=== PATIENT | female | born 1940 | race Caucasian/White ===

== ENCOUNTER → 2017-11-30 09:01 | Day surgery (SDC) | payer MEDICARE, SELFPAY ==
[2017-11-27 09:34] VITALS: BMI 23.8
[2017-11-30 09:46] LABS: Prothrombin Time Fingerstick 13.9 SEC (11.9-14.4)
--- NOTE | 2017-11-30 11:17 | CL.D_ITS ---
Patient Name: MICHELLE JIMENEZ Study Date: 11/30/2017 Performing: Mart Souza MD Ht: 66.14 inches 168 cm : 1940 Wt: 147.71 lbs 67 kg Age: 77 Gender: female BSA: 1.76 PROCEDURE(S) PERFORMED BP08-WQR/COR/LV CLINICAL PROFILE AND INDICATIONS INDICATIONS: 77-year-old lady with a history of hypertrophic cardiomyopathy and mitral regurgitat ion and atrial fibrillation Stress/Imaging Stress/Image Study Performed: No CAD Presentations: No Sxs, no angina. CONCLUSIONS Normal coronary arteries Cardiomyopathy: Hypertrophic Mitral Valve Insufficiency Moderate RECOMMENDATIONS Surgery consult for Valve Replacement surgery DESCRIPTION OF PROCEDURE The patient arrived to the procedure lab. The risks and benefits of the procedure as well as a full d escription of our services here and current unavailability of surgical backup were fully explained to the patient and/or their significant other prior to the catheterization. The Timeout was completed, verifying the correct patient and procedure. The patient's procedural site was prepped and draped in the usual fashion. Local anesthetic was given subcutaneously to right radial region with Lidocaine 2% . Local anesthetic was given subcutaneously to right groin region with Lidocaine 2%. Using a modified Seldinger technique, arterial access was obtained via the right femoral artery, a 4Fr sheath was ins erted Left Coronary Artery selective angiography was performed in multiple views using a 5 Fr. JL4 c atheter. Right Coronary Artery selective angiography was then performed in multiple views using a 5 F r. 3DRC (Endy) catheter. Left Ventriculography was performed in GOTTI projection using a 5 Fr. Pigt ail catheter. LV to AO pullback pressures were then recorded.The arterial sheath was pulled and manua l compression applied until hemostasis is achieved. CORONARY ANGIOGRAPHY DOMINANCE: Right Dominant LEFT HEART ASSESSMENT Left Ventricular Ejection Fraction: by LV Gram 65 % Normal LV wall motion Normal Left Ventricular systolic function Moderately severe mitral regurgitation LEFT MAIN: Angiographically normal LEFT ANTERIOR DECENDING ARTERY: Angiographically normal CIRCUMFLEX ARTERY: Angiographically normal RIGHT CORONARY ARTERY: Angiographically normal VALVE FINDINGS: Mitral Valve Prolapse Moderate COMPLICATIONS No Complications PROCEDURE MEDICATIONS Versed 1 mg IV Fentanyl 50 mcg IV Oxygen: 2 L/min via nasal cannula Baby Aspirin (81mg) 1 Tabs PO @ 11/30/2017 09:46:44 Lasix 40 mg IV 11/30/2017 11:15:16 SUMMARY OF HEMODYNAMIC DATA Time AIR REST ECG 09:44:37 AO 107/64 (85) SA 10:55:02 LV 138/5, 21 11:02:52 LV 138/3, 21 11:02:58 LV 134/11, 26 11:03:49 LV 150/18, 48 11:03:55 LVp 134/7, 22 11:04:04 AOp 114/59 (86) 11:04:09 Signed By Mart Souza MD On 11/30/2017 11:16:48 Mart Souza MD
== END ==
PROVIDERS: Family Provider Internal Medicine; PCP Internal Medicine; Visit Provider Internal Medicine Cardiovascular Disease
DX: I42.2 Other hypertrophic cardiomyopathy (principal); I34.0 Nonrheumatic mitral (valve) insufficiency; I11.0 Hypertensive heart disease with heart failure; I50.32 Chronic diastolic (congestive) heart failure; J96.01 Acute respiratory failure with hypoxia; I48.0 Paroxysmal atrial fibrillation; I48.92 Unspecified atrial flutter; J44.9 Chronic obstructive pulmonary disease, unspecified; C85.90 Non-Hodgkin lymphoma, unspecified, unspecified site; E78.5 Hyperlipidemia, unspecified; Z79.82 Long term (current) use of aspirin; Z79.01 Long term (current) use of 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; Z79.899 Other long term (current) drug therapy; Z92.21 Personal history of antineoplastic chemotherapy; Z87.891 Personal history of nicotine dependence
CPT/HCPCS: 36416; 85610; 93458; 99152; 99153; J7040; C1769; C1894; J1940; Q9967

== ENCOUNTER → 2017-12-02 15:37 | Outpatient (CLI) | payer MEDICARE, SELFPAY ==
--- NOTE | 2017-12-02 | BMB_PTH ---
PATIENT: MICHELLE JIMENEZ LOC: [facility] U#:[id number] AGE/SX: 85/F ROOM: RE12/02/[address]: Dr. Maria Isabel Tay MD : 1940 BED: DIS: SPEC #: [id number] RECD: 12/02/17 15:32 STATUS: TAMMI REYolanda #: [id number] ROSALIO: 12/02/17 00:[address]: Maria Isabel Tay DEPT: BONE MARROW RECD BY: Jerome Duran ENTERED: 12/03/17 07:41 SP TYPE: BMB OTHR DR: Dr. Cheyanne Holt MD Tissues: A - Bone marrow, NOS B - Bone marrow, NOS C - Bone marrow, NOS Procedures: Decalcification bone/plaque Bone Marrow Aspiration Bone Marrow Core Biopsy Iron Stain Bone Marrow HEADER OPERATION: Bone marrow aspiration and biopsy, left hip PRE-OP DIAGNOSIS: B-cell lymphoma TISSUE SUBMITTED: A ? Bone marrow aspiration and biopsy core, B ? Bone marrow biopsy clot, aspiration, C ? Bone marrow biopsy smears, 6 slides, 2 stained slides, and send out (flow) BONE MARROW DIAGNOSIS Bone marrow core, clot and aspirate smears: Normocellular marrow, negative for involvement by lymphoma. Iron ? 1+, atypical or ring sideroblasts are not seen. Peripheral smear ? mild thrombocytopenia. Flow cytometry study from [facility] shows no significant immunophenotypic abnormality detected. SJ:everardo 12/09/17 COMMENT Please make reference to previous specimen ([id number]) right hip bone marrow core and clot with diagnosis of involvement by non-Hodgkin B-cell lymphoma, unclassifiable. Case has been reviewed in consultation with Dr. Villanueva who concurs with the above diagnosis. IDC:AM BONE MARROW STUDY Slides are reviewed. CBC DATE: 12/02/17 WBC 4.21; RBC 4.68; HGB 12.8; HCT 39.1; MCV 83.5; RDW 15.0; PLTS 128,000 SEGS 57.1%; LYMPHS 18.1%; MONOS 20.7%; EOS 3.1%; BASOS 1.0% PERIPHERAL SMEAR: Submitted. RBC: Normocytic and normochromic. WBC: Relative monocytosis. The WBC count is compatible to as reported above. PLTS: Mildly decreased. BONE MARROW ASPIRATE DIFFERENTIAL: 200 cell count. Blasts % (normal 0-2): 0 Promyelocytes % (normal 1-5): 2 Myelocytes and metamyelocytes % (normal 17-41): 30 Bands and Segs % (normal 15-32): 29 Eos % (normal 1-6): 5 Basos % (normal 0-1): 1 Monocytes % (normal 0-4): 0 Erythroid Precursors % (normal 17-35): 23 Lymphocytes % (normal 7-13): 10 Plasma Cells % (normal 0-2): 0 ASPIRATE FINDINGS: Site: Not specified Spicular, Cellular M/E ratio: 2.9 (Normal 1.5-4.0) Megakaryocytes: Present and normal morphology. Erythropoiesis: Normoblastic. Granulopoiesis: Progressive and unremarkable. Comment: Significant increase of lymphocytes are not seen. CORE BIOPSY FINDINGS: Site: Not specified Adequacy: Adequate Cellularity: 50% M/E ratio: Within normal limits. Megakaryocytes: Present and adequate in number. Bony trabeculae: Unremarkable. Granulomas: Absent. Lymphoid aggregate: Absent. Atypical infiltrate: Absent. ASPIRATE CLOT FINDINGS: Site: Not specified Marrow particles: Numerous Cellularity: 50% M/E ratio: Within normal limits. Megakaryocytes: Present and adequate in number. Granulomas: Absent. Lymphoid aggregates: Absent. Atypical infiltrates: Absent. SPECIAL STAINS WITH MATCHED CONTROLS: Iron: 1+, atypical or ring sideroblasts are not seen. Reticulin: Focal mild increase of reticulin fibers are noted in the core biopsy. PAS: Highlights myeloid cells and megakaryocytes. BONE MARROW GROSS A - Received is a container labeled with the patient's name and designated left hip. The specimen consists of a piece of montes bone measuring 0.8 cm in length and 0.2 cm in diameter. The specimen is totally submitted in one cassette after decalcification. B - Received labeled with the patient's name and designated left hip is a specimen that consists of approximately 15 cc of bloody fluid that on filtration yields multiple minute fragments of blood clots measuring in aggregate 0.5 x 0.5 x 0.1 cm. The specimen is totally submitted in one cassette. C - Also received are 6 unstained and 2 peripheral stained slides. The unstained slides are submitted for appropriate staining. Also received is one green top tube which is sent to our reference lab for flow cytometry. / DAHIANA:everardo 12/03/17 TC:5 CPT: 98986, 59255, 87189 x2, 41930 x3, 37643
== END ==
PROVIDERS: Family Provider Internal Medicine; PCP Internal Medicine; Visit Provider Internal Medicine Hematology & Oncology
DX: C85.10 Unspecified B-cell lymphoma, unspecified site (principal)
CPT/HCPCS: 88305; 88311; 88313

== ENCOUNTER 2018-05-11 11:28 | Emergency (ER) | payer MEDICARE, SELFPAY ==
[2018-05-11] VITALS (7 sets, daily range): BP systolic 91–125; BP diastolic 66–75; PULSE 53–82; RESP 16; TEMP 37; O2SAT 94–99; BMI 24.0
--- NOTE | 2018-05-11 11:51 | EKG12_ITS ---
Test Reason : CP Blood Pressure : / mmHG Vent. Rate : 056 BPM Atrial Rate : 416 BPM P-R Int : 000 ms QRS Dur : 102 ms QT Int : 622 ms P-R-T Axes : 058 -05 062 degrees QTc Int : 600 ms Normal sinus rhythm with 1st degree block Anterolateral infarct , age undetermined Prolonged QT Abnormal ECG Confirmed by CLAUDIA FORTUNE, KACIE ([id number]), mapping editor SHANKAR TERRAZAS ([id number]) on 05/13/2018 1:39:35 PM Referred By: VIRI Confirmed By:KACIE TAYLOR MD
[2018-05-11 12:26] LABS: Absolute Lymphocyte Count 1.15 X10^3/ul (0.83-4.51); Absolute Neutrophil Count 5.3 X10^3/uL (2.0-7.7); Basophil# 0.07 X10^3/uL; Eosinophil# 0.16 X10^3/uL; Eosinophils% 2.2 % (0-5); Hematocrit 39.3 % (37-47); Hemoglobin 12.7 g/dl (12.0-15.0); Lymphocyte # 1.15 X10^3/ul (4.0); Lymphocyte % 15.8 % (19-41); Mean Corp Hgb Conc 32.3 g/gl (32-36); Mean Corpuscular Hgb 26.5 pg (27.0-32.0); Mean Corpuscular Volume 81.9 fL (81-99); Mean Platelet Vol. 9.2 fl (6.2-12.0); Monocyte# 0.51 X10^3/uL; Neutrophil # 5.34 X10^3/uL (2.7-7.7); Neutrophil % 73.4 % (47-70); Platelet Count 243 K/mm3 (150-450); RBC Distribution Width CV 15.2 % (11.6-14.6); RBC Distribution Width SD 45.4 fl (35.1-43.9); White Blood Count 7.3 K/mm3 (4.4-11.0)
[2018-05-11 12:27] LABS: POSITIVE COUNT NO; POSITIVE DIFFERENTIAL NO; POSITIVE MORPHOLOGY NO
--- NOTE | 2018-05-11 12:28 | RAD_ITS ---
STUDY: X-RAY CHEST REASON FOR EXAM: Female, 78 years old. Shortness of breath. Lower extremity weakness. TECHNIQUE: PA and lateral views of the chest. COMPARISON: Comparison is made with prior examination dated October 06, 2017. FINDINGS: EKG electrodes are seen. Since prior study, there has been a progression of interstitial markings throughout the lungs worse at the lung bases. This may represent a mild degree of CHF. There is no demonstrated pleural abnormality. There is mild cardiac enlargement. Normal mediastinum and niharika. Normal visualized pulmonary arteries. There is atherosclerotic tortuosity of the aortic arch and descending thoracic aorta. There is demineralization of the osseous structures. Normal visualized ribs, clavicles, and shoulders. There is no demonstrated abnormality of the visualized soft tissue structures of the upper abdomen. RAD/Chest PA and Lateral IMPRESSION: Mild cardiomegaly. Increased interstitial markings in both lungs suggestive of mild degree of CHF. Electronically Signed: Bryn Capellan MD at 12:51 EDT Tel [phone], Service support ,
[2018-05-11 12:40] LABS: Anion Gap 9 (5-15); BUN 23 mg/dL (7-18); BUN/Creat Ratio 18.3 RATIO (10-20); Calcium,Total 9.1 mg/dL (8.5-10.1); Chloride 102 mmol/L (98-107); Creatinine, Serum 1.26 mg/dL (0.55-1.02); EST Glomerular Filtration Rate 44 mL/min (>60); Est Glom Filt Rate - Afr Amer 53 mL/min (>60); Estimated Creatinine Clearance 33.89 ml/min; Glucose 93 mg/dL (74-106); Potassium 4.6 mmol/L (3.5-5.1); Sodium Level 139 mmol/L (136-145)
--- NOTE | 2018-05-11 12:46 | RAD_ITS ---
STUDY: X-RAY - PELVIS REASON FOR EXAM: Female, 78 years old. Lower extremity pain and weakness. TECHNIQUE: One view of the pelvis was obtained. COMPARISON: None. FINDINGS: There is a non-specific bowel gas pattern. Normal visualized soft tissue structures. There is a 1.1 cm rounded sclerotic focus overlying the left sacral ala or medial aspect of the left iliac bone. This may represent a small bone island. The patient has a history of metastatic disease, a sclerotic metastasis should be ruled out. Normal visualized bilateral superior and inferior pubic rami. There is narrowing with sclerosis of the pubic symphysis. Normal ischial tuberosities. Normal visualized right femoral head. Normal right acetabulum. Normal right hip joint. Normal visualized left femoral head. Normal left acetabulum. Normal left hip joint. RAD/Pelvis 1 or 2 Views IMPRESSION: 1.1 cm rounded sclerotic focus overlying the left sacral ala or medial aspect of the left iliac bone. This most likely represents a small bone island although a small sclerotic metastasis can't be excluded. Electronically Signed: Bryn Capellan MD at 13:12 EDT Tel [phone], Service support ,
--- NOTE | 2018-05-11 13:15 | NURSING ---
PT C/O CHEST PRESSURE WHILE WALKING. STATES IT IS NEW. ALSO C/O LEG WEAKNESS AND WINDED. ERD AWARE. CALLED FOR EKG.
--- NOTE | 2018-05-11 13:32 | NURSING ---
DR Marc CEJA
--- NOTE | 2018-05-11 13:50 | CT_ITS ---
STUDY: CTA CHEST REASON FOR EXAM: Female, 78 years old. Hypoxia RADIATION DOSAGE (If Supplied By Facility): CTDIvol = ( 12.93 ) mGy, DLP = ( 470.22 ) mGycm TECHNIQUE: The examination was performed with the intravenous administration of 75 ml of Isovue 370 contrast material. Post-processing of the angiographic images was performed, with multiplanar reformation and 3D reconstruction. Individualized dose optimization techniques were used for this CT. COMPARISON: None. FINDINGS: Normal enhancement of the main pulmonary artery and right and left pulmonary arteries. Normal enhancement of the bilateral peripheral pulmonary arteries. There is no demonstrated pulmonary embolism. Normal thoracic aorta and visualized great vessels. There is no demonstrated aortic dissection. There is cardiomegaly. There are scattered subcentimeter axillary and mediastinal lymph nodes measuring up to 8.5 mm. Normal hilar regions. There is peribronchial thickening. Lungs are hyperexpanded with chronic interstitial fibrotic changes in both lung [place], and nonspecific bilateral pleural thickening. Underlying emphysematous blebs noted in the upper lobes. Normal pleura. Normal chest wall structures. There are degenerative changes of thoracic spine. Limited cuts through the upper abdomen show a simple 4 cm right hepatic lobe cyst and cholelithiasis. CT/CTA Chest W/WO Contrast IMPRESSION: No demonstrated PE, or thoracic aortic aneurysm or dissection Cardiomegaly. Hyperexpanded lungs with underlying emphysematous changes in interstitial fibrotic changes. No superimposed infiltrate, or suspicious noncalcified mass or nodule Scattered subcentimeter axillary and mediastinal lymph nodes Degenerative bony changes Simple hepatic cyst Cholelithiasis Electronically Signed: Miguel Ac MD at 14:31 EDT , Service support ,
--- NOTE | 2018-05-11 13:52 | EKG12_ITS ---
Test Reason : REPEAT Blood Pressure : / mmHG Vent. Rate : 058 BPM Atrial Rate : 058 BPM P-R Int : 210 ms QRS Dur : 108 ms QT Int : 610 ms P-R-T Axes : 045 015 083 degrees QTc Int : 598 ms Sinus bradycardia with 1st degree A-V block Anterolateral infarct , age undetermined Prolonged QT Abnormal ECG Confirmed by CLAUDIA FORTUNE, KACIE ([id number]), desk editor SHANKAR TERRAZAS ([id number]) on 05/13/2018 1:41:07 PM Referred By: VIRI Confirmed By:KACIE TAYLOR MD
[2018-05-11 14:26] LABS: BNP,B-Type NATRIURETIC PEPTIDE 359.3 pg/mL (0-100)
[2018-05-11 14:52] LABS: International Normalized Ratio 2.5; Prothrombin Time (Protime)PT. 27.4 SECONDS (11.7-14.9)
[2018-05-11] MEDS: Ipratropium/Albuterol Sulfate 3 ML AMPUL.NEB INHALATION (15:48)
--- NOTE | 2018-05-11 16:01 | ED.VISSUMM ---
- ER Visit Summary Date of Service: 05/11/18 Chief Complaint: Shortness of breath History of Present Illness: The patient is a 78 F who has a bit of a complicated cardiac history. Patient has a history of paroxysmal atrial fibrillation. She has a history of nonrheumatic severe mitral valve regurgitation. Last echo showed 4+ regurg. Left atrium was noted to be severely dilated as well as having evidence of hypertrophic cardiomyopathy involving the left ventricular outflow tract with a gradient of 86 mmHg. Patient is currently undergoing evaluation to have a septal myomectomy alcohol ablation at [facility] on June 10. She does have some evidence of heart failure. She does not reportedly tolerate being in atrial fibrillation well. Patient states that a few days ago she was in [place] and was admitted to [facility] with shortness of breath and leg weakness. She states that these are the same symptoms that brings her in today. She also notes a history of COPD. She is on amiodarone and Coumadin. Physical Examination: Afebrile vital signs are stable Gen: Well-nourished well-developed Head: Normocephalic atraumatic Eyes: Perrl EOMI ENT: TMs clear no rhinorrhea moist mucous membranes Neck: Supple no lymphadenopathy no JVD nontender CVS: Regular rate rhythm 3 out of 6 systolic murmur Respiratory: No distress clear to auscultation bilaterally chest nontender Abdomen: Soft nontender nondistended normal bowel sounds no masses Back: Nontender Extremity: Nontender no edema Skin: Normal color no rash Neuro: alert orientated ?3 CN II-XII intact normal strength sensation reflexes gait cerebellar Psych: Normal affect normal mood Test Results: EKG shows a sinus rhythm at a rate of 56 this was repeated later in the course continues to show a sinus rhythm. Chest x-ray shows no obvious overt heart failure or infiltrate. White count 7.3 hemoglobin 12.7. INR therapeutic at 2.5. Troponin negative. Natruretic peptide is 359. Emergency Department Course and Treatment: Patient is 99% on room air at rest. When the patient ambulates she becomes dyspneic and her pulse ox drops to 88%. She walked once with nursing and once again with myself. She had a good waveform on the pulse ox. When placed on 2 L she is no longer short of breath her legs feel stronger and she is at 94%. Patient received a breathing treatment and stated she felt no different. I did speak with Dr. Kemp who is concerned that there might be something else that could be causing her hypoxemia. CT Josey of the chest was negative for PE. When she set the patient up for home oxygen. I encouraged her to follow-up with her doctors keep her scheduled appointments Impression: 1. Hypoxemia 2. COPD 3. Hypertrophic cardiomyopathy 4. Mitral valve regurgitation This note was generated with [employer] dictation software. It may contain incorrect words, spelling, and punctuation that were not noted in review of the chart prior to signing ED Disposition - Plan for ED Patient: Disposition: Home or Assisted Living Chief Complaint: Shortness of Breath Instructions: Traveling with Oxygen Referrals: Cheyanne Holt MD [Primary Care Provider] - Additional Instructions: Please keep all your appointments with her doctors. Please wear oxygen particularly anytime you are attempting to exert herself.
--- NOTE | 2018-05-11 16:05 | ED.DCSUM_ITS ---
- ER Visit Summary Date of Service: 05/11/18 Chief Complaint: Shortness of breath History of Present Illness: The patient is a 78 F who has a bit of a complicated cardiac history. Patient has a history of paroxysmal atrial fibrillation. She has a history of nonrheumatic severe mitral valve regurgitation. Last echo showed 4+ regurg. Left atrium was noted to be severely dilated as well as having evidence of hypertrophic cardiomyopathy involving the left ventricular outflow tract with a gradient of 86 mmHg. Patient is currently undergoing evaluation to have a septal myomectomy alcohol ablation at [facility] on June 10. She does have some evidence of heart failure. She does not reportedly tolerate being in atrial fibrillation well. Patient states that a few days ago she was in [place] and was admitted to [facility] with shortness of breath and leg weakness. She states that these are the same symptoms that brings her in today. She also notes a history of COPD. She is on amiodarone and Coumadin. Physical Examination: Afebrile vital signs are stable Gen: Well-nourished well-developed Head: Normocephalic atraumatic Eyes: Perrl EOMI ENT: TMs clear no rhinorrhea moist mucous membranes Neck: Supple no lymphadenopathy no JVD nontender CVS: Regular rate rhythm 3 out of 6 systolic murmur Respiratory: No distress clear to auscultation bilaterally chest nontender Abdomen: Soft nontender nondistended normal bowel sounds no masses Back: Nontender Extremity: Nontender no edema Skin: Normal color no rash Neuro: alert orientated ?3 CN II-XII intact normal strength sensation reflexes gait cerebellar Psych: Normal affect normal mood Test Results: EKG shows a sinus rhythm at a rate of 56 this was repeated later in the course continues to show a sinus rhythm. Chest x-ray shows no obvious overt heart failure or infiltrate. White count 7.3 hemoglobin 12.7. INR therapeutic at 2.5. Troponin negative. Natruretic peptide is 359. Emergency Department Course and Treatment: Patient is 99% on room air at rest. When the patient ambulates she becomes dyspneic and her pulse ox drops to 88%. She walked once with nursing and once again with myself. She had a good waveform on the pulse ox. When placed on 2 L she is no longer short of breath her legs feel stronger and she is at 94%. Patient received a breathing treatment and stated she felt no different. I did speak with Dr. Kemp who is concerned that there might be something else that could be causing her hypoxemia. CT Josey of the chest was negative for PE. When she set the patient up for home oxygen. I encouraged her to follow-up with her doctors keep her scheduled appointments Impression: 1. Hypoxemia 2. COPD 3. Hypertrophic cardiomyopathy 4. Mitral valve regurgitation This note was generated with [employer] dictation software. It may contain incorrect words, spelling, and punctuation that were not noted in review of the chart prior to signing ED Disposition - Plan for ED Patient: Disposition: Home or Assisted Living Chief Complaint: Shortness of Breath Instructions: Traveling with Oxygen Referrals: Cheyanne Holt MD [Primary Care Provider] - Additional Instructions: Please keep all your appointments with her doctors. Please wear oxygen particularly anytime you are attempting to exert herself.
--- NOTE | 2018-05-11 16:28 | CM.ED ---
CM consulted for home oxygen setup. Discussed home oxygen use with patient. Patient states understanding and is agreeable with plan. Lindsay, from [facility], notified. Clinicals and script faxed. [facility] will deliver oxygen to ED as soon as possible and will follow through with home setup.
--- NOTE | 2018-05-12 15:17 | CM.ED ---
ED CALLBACK: Follow-up call placed to patient. Patient states she did have oxygen set up in the home, with instruction. She denies shortness of breath today. She saw Dr. Lyon, international trade compliance manager, today. She tells me that she did not wear her oxygen to her appointment and that he tested her walking in the halls. She tells me that her O2 saturation level remained above 93% during ambulation at office. Patient did tell me that she has a pulse ox at home. I encouraged her to use her oxygen with ambulation. Patient denies any further needs, questions, concerns.
== END 2018-05-11 17:02 | disposition home or self-care (01) ==
PROVIDERS: Emergency Provider Emergency Medicine; Family Provider Internal Medicine; PCP Internal Medicine
DX: R09.02 Hypoxemia (principal); J44.9 Chronic obstructive pulmonary disease, unspecified; I42.2 Other hypertrophic cardiomyopathy; I34.0 Nonrheumatic mitral (valve) insufficiency; I48.0 Paroxysmal atrial fibrillation; I50.9 Heart failure, unspecified; Z79.01 Long term (current) use of 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; Z79.82 Long term (current) use of aspirin; Z79.899 Other long term (current) drug therapy; Z85.72 Personal history of non-Hodgkin lymphomas; Z87.891 Personal history of nicotine dependence
CPT/HCPCS: 71046; 71275; 72170; 80048; 83880; 84484; 85025; 85610; 93005; 94640; 99284; Q9967; A4216

== ENCOUNTER → 2018-07-09 10:48 | Outpatient (CLI) | payer MEDICARE, SELFPAY ==
[2018-07-09 11:19] LABS: International Normalized Ratio 2.4; Prothrombin Time (Protime)PT. 26.2 SECONDS (11.7-14.9)
== END ==
PROVIDERS: Family Provider Internal Medicine; PCP Internal Medicine; Visit Provider Internal Medicine
DX: I48.91 Unspecified atrial fibrillation (principal); J43.9 Emphysema, unspecified
CPT/HCPCS: 85610

== ENCOUNTER 2018-08-06 16:09 | Inpatient (IN) | payer MEDICARE, SELFPAY ==
[2018-08-06 17:33] VITALS: BMI 25.4
--- NOTE | 2018-08-06 17:33 | NURSING ---
Pt admitted to room 22 from [facility], brought by family. Patient oriented to room and call light system explained.
--- NOTE | 2018-08-06 17:46 | PCM.HP.STD ---
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 The patient is a 78 year old Female with below past medical history with following admitted to [facility]. 07/30/2018 Patient underwent septal myectomy, mitral valve repair, left atrial appendage clipping. Post-operative course complicated by atrial fibrillation, but rate controlled. 08/06/2018 Admit to TCU with debility, here for rehabilitation, strengthening, prior to discharge home alone. Resident showed me her incisions, incisions on abdomen tender to palpation, infected, will treat. She also asked for something to help her sleep, will add Melatonin. Past Medical History Past Medical History (Chronic Problems): Chronic Problems (Last Reviewed 11/11/17 @ 09:57 by Mart Souza MD) Hypertrophic obstructive cardiomyopathy (HOCM) (Chronic) Mitral valve disorder (Chronic) Atrial fibrillation (Chronic) Bone metastasis (Chronic) Coronary artery disease (Chronic) Irritable bowel syndrome (Chronic) Prolonged QT syndrome (Chronic) Osteoporosis (Chronic) Chronic obstructive pulmonary disease (Chronic) B-cell lymphoma (Chronic) Non-Hodgkin lymphoma (Chronic) small B cell Hyperlipidemia (Chronic) Hypertension (Chronic) Chronic diastolic heart failure (Chronic) Nonrheumatic mitral (valve) insufficiency (Chronic) Acute respiratory failure with hypoxia (Chronic) Bladder cancer (Chronic) Medical History: Medical History (Last Reviewed 11/11/17 @ 09:57 by Mart Souza MD) Non-Hodgkin lymphoma (Chronic) C85.90 small B cell Hyperlipidemia (Chronic) E78.5 Hypertension (Chronic) I10 Chronic diastolic heart failure (Chronic) I50.32 Nonrheumatic mitral (valve) insufficiency (Chronic) I34.0 Atrial flutter with rapid ventricular response (Resolved) I48.92 Acute respiratory failure with hypoxia (Chronic) J96.01 Bladder cancer (Chronic) C67.9 COPD (chronic obstructive pulmonary disease) J44.9 History of cardioversion Onset Date: ~10/07/17 Z98.890 05/2017 Hypertrophic obstructive cardiomyopathy (HOCM) I42.1 Long QT interval R94.31 Paroxysmal atrial fibrillation I48.0 Allergies allopurinol Allergy (Verified 05/11/18 11:30) Rash tramadol Adverse Reaction (Verified 05/11/18 11:30) dizzy Home Medications: Ambulatory Orders Medication Instructions Recorded Umeclidinium Brm/Vilanterol Tr 1 puff INHALATION DAILY 10/06/17 [Anoro Ellipta 62.5-25 Mcg INH] aspirin 81 mg tablet,delayed 81 mg PO QDAY 11/11/17 release Acetaminophen 650 mg PO Q4H PRN PRN 08/06/18 Albuterol Inhaler [Ventolin Hfa 2 puff INHALATION Q4H PRN PRN 08/06/18 (SP)] Cholecalciferol (Vitamin D3) 1,000 unit PO DAILY 08/06/18 [Vitamin D3] Furosemide [Lasix] 40 mg PO DAILY 08/06/18 Magnesium Oxide [Mag-Ox 400] 400 mg PO DAILY 08/06/18 Multivitamin [Daily Multiple 1 each PO DAILY 08/06/18 Vitamin] Oxycodone [Oxyir] 5 mg PO Q6H PRN PRN 08/06/18 Pantoprazole Sodium 20 mg PO DAILY 08/06/18 Paroxetine [Paxil] 10 mg PO DAILY 08/06/18 Potassium Chloride [K-Dur] 10 meq PO DAILY 08/06/18 Warfarin [Coumadin] 2 mg PO DAILY@1700 08/06/18 Surgical History: Surgical History (Last Reviewed 11/11/17 @ 09:57 by Mart Souza MD) History of bladder surgery Z98.890 tumor excision Surgical History: - - Bladder surgery per Dr. Monson, Septal myectomy, mitral valve repair, left atrial appendage clipping. 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 Lives: Spouse/ Significant Other Smoking Status: Former smoker Tobacco Use: Non-smoker Alcohol: None Drugs: None - *Family History Maternal Family History: Family History (Last Reviewed 11/11/17 @ 09:57 by Mart Souza MD) Mother Heart disease Hypertension Father Heart disease Hypertension History Items: Heart Disease, Hypertension Paternal Family History: Family History (Last Reviewed 11/11/17 @ 09:57 by Mart Souza MD) Mother Heart disease Hypertension Father Heart disease Hypertension History Items: Heart Disease, Hypertension Review of Systems Constitutional: Denies: Chills, Fever, Weight Change HEENT: Denies: Head Aches, Sinus Congestion, Sinus Drainage Cardiovascular: Denies: Chest Pain, Palpitations Respiratory: Denies: Cough, Shortness of breath at rest, Sputum production Gastrointestinal: Denies: Abdominal Pain, Nausea, Vomiting Genitourinary: Denies: Dysuria Musculoskeletal: Denies: Joint Pain, Joint Tenderness Skin: Denies: Rash, Wounds Neurological: Denies: Numbness, Tingling, Focal weakness Psychiatric: Denies: Anxiety, Depression, Homicidal Ideations, Suicidal Ideations Hematologic/ Lymphatic: Denies: Easy Bruising, Easy Bleeding VTE Information - Inpt Only VTE Present on Admission: No VTE Mechan Device Prophylaxis: Knee High KWAN Hose VTE Pharm Prophylaxis ordered?: No Reason prophylaxis not ordered:: Treatment Not Indicated - Physical Exam General: Alert, Oriented x3, Cooperative HEENT: Atraumatic, PERRLA, EOMI, Normocephalic Neck: Supple, No JVD, Negative Carotid Bruits Lungs: Clear to auscultation, Normal air movement Cardiovascular: Regular rate, No murmurs Abdomen: Bowel Sounds Present, Soft, Non Tender Extremities: No edema, Capillary Refill Less than 3 Seconds Skin: No rashes, No breakdown, Incision - Sternal clean, dry intact. Abdominal incisions tender, erythematous. Musculoskeletal: No Tenderness to Palpation of Joints or Extremities Neurological: Cranial nerves II-XII grossly intact Psych/Mental Status: Normal Affect, Appropriate Assessment/Plan All Active Problems (Last Reviewed 11/11/17 @ 09:57 by Mart Souza MD) Atrial flutter with rapid ventricular response (Resolved) 78 year old female with below past medical history significant for hypertrophic obstructive cardiomyopathy, underwent septal myectomy, mitral valve repair, left atrial appendage clipping 07/30/2018, complicated by post-operative atrial fibrillation, admitted to TCU with debility, here for rehabilitation, strengthening, prior to discharge home alone. Debility - PT/OT. Pain - Tylenol 1000MG Q8H PRN mild pain, Oxycodone 5MG Q6H PRN moderate pain. Bowel - Miralax 17GM daily, Senna/colace 1 tablet BID, Dulcolax 10MG PO daily PRN. Pneumonia vaccination - Administer Prevnar 13 and/or Pneumovax 23 as necessary. DVT prophylaxis - Not necessary, already on Warfarin. COPD - Incruse 1 inhalation daily, Albuterol MDI 2 puffs Q4H PRN. Coronary artery disease - Aspirin 81MG daily. Vitamin D deficiency - D3 1000IU daily. Fluid overload - Lasix 40MG daily. Hypomagnesemia - Magnesium Oxide 400MG daily. Nutrition - MVI daily. GERD - Pantoprazole 20MG daily. Depression - Paroxetine 10MG daily. Hypokalemia - KCL 10MEQ daily. Atrial fibrillation - Warfarin 2MG daily, follow INR. Incision cellulitis - Keflex 500MG BID, Doxycycline 100MG BID x 7 days. Insomnia - Melatonin 10MG QHS.
[2018-08-06 17:47] VITALS: BP 118/59; PULSE 51; RESP 18; TEMP 36.6; O2SAT 84
--- NOTE | 2018-08-06 17:55 | HP.PCM_ITS ---
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 The patient is a 78 year old Female with below past medical history with following admitted to [facility]. 07/30/2018 Patient underwent septal myectomy, mitral valve repair, left atrial appendage clipping. Post-operative course complicated by atrial fibrillation, but rate controlled. 08/06/2018 Admit to TCU with debility, here for rehabilitation, strengthening, prior to discharge home alone. Resident showed me her incisions, incisions on abdomen tender to palpation, infected, will treat. She also asked for something to help her sleep, will add Melatonin. Past Medical History Past Medical History (Chronic Problems): Chronic Problems (Last Reviewed 11/11/17 @ 09:57 by Mart Souza MD) Hypertrophic obstructive cardiomyopathy (HOCM) (Chronic) Mitral valve disorder (Chronic) Atrial fibrillation (Chronic) Bone metastasis (Chronic) Coronary artery disease (Chronic) Irritable bowel syndrome (Chronic) Prolonged QT syndrome (Chronic) Osteoporosis (Chronic) Chronic obstructive pulmonary disease (Chronic) B-cell lymphoma (Chronic) Non-Hodgkin lymphoma (Chronic) small B cell Hyperlipidemia (Chronic) Hypertension (Chronic) Chronic diastolic heart failure (Chronic) Nonrheumatic mitral (valve) insufficiency (Chronic) Acute respiratory failure with hypoxia (Chronic) Bladder cancer (Chronic) Medical History: Medical History (Last Reviewed 11/11/17 @ 09:57 by Mart Souza MD) Non-Hodgkin lymphoma (Chronic) C85.90 small B cell Hyperlipidemia (Chronic) E78.5 Hypertension (Chronic) I10 Chronic diastolic heart failure (Chronic) I50.32 Nonrheumatic mitral (valve) insufficiency (Chronic) I34.0 Atrial flutter with rapid ventricular response (Resolved) I48.92 Acute respiratory failure with hypoxia (Chronic) J96.01 Bladder cancer (Chronic) C67.9 COPD (chronic obstructive pulmonary disease) J44.9 History of cardioversion Onset Date: ~10/07/17 Z98.890 05/2017 Hypertrophic obstructive cardiomyopathy (HOCM) I42.1 Long QT interval R94.31 Paroxysmal atrial fibrillation I48.0 Allergies allopurinol Allergy (Verified 05/11/18 11:30) Rash tramadol Adverse Reaction (Verified 05/11/18 11:30) dizzy Home Medications: Ambulatory Orders Medication Instructions Recorded Umeclidinium Brm/Vilanterol Tr 1 puff INHALATION DAILY 10/06/17 [Anoro Ellipta 62.5-25 Mcg INH] aspirin 81 mg tablet,delayed 81 mg PO QDAY 11/11/17 release Acetaminophen 650 mg PO Q4H PRN PRN 08/06/18 Albuterol Inhaler [Ventolin Hfa 2 puff INHALATION Q4H PRN PRN 08/06/18 (SP)] Cholecalciferol (Vitamin D3) 1,000 unit PO DAILY 08/06/18 [Vitamin D3] Furosemide [Lasix] 40 mg PO DAILY 08/06/18 Magnesium Oxide [Mag-Ox 400] 400 mg PO DAILY 08/06/18 Multivitamin [Daily Multiple 1 each PO DAILY 08/06/18 Vitamin] Oxycodone [Oxyir] 5 mg PO Q6H PRN PRN 08/06/18 Pantoprazole Sodium 20 mg PO DAILY 08/06/18 Paroxetine [Paxil] 10 mg PO DAILY 08/06/18 Potassium Chloride [K-Dur] 10 meq PO DAILY 08/06/18 Warfarin [Coumadin] 2 mg PO DAILY@1700 08/06/18 Surgical History: Surgical History (Last Reviewed 11/11/17 @ 09:57 by Mart Souaz MD) History of bladder surgery Z98.890 tumor excision Surgical History: - - Bladder surgery per Dr. Monson, Septal myectomy, mitral valve repair, left atrial appendage clipping. 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 Lives: Spouse/ Significant Other Smoking Status: Former smoker Tobacco Use: Non-smoker Alcohol: None Drugs: None - *Family History Maternal Family History: Family History (Last Reviewed 11/11/17 @ 09:57 by Mart Souza MD) Mother Heart disease Hypertension Father Heart disease Hypertension History Items: Heart Disease, Hypertension Paternal Family History: Family History (Last Reviewed 11/11/17 @ 09:57 by Mart Souza MD) Mother Heart disease Hypertension Father Heart disease Hypertension History Items: Heart Disease, Hypertension Review of Systems Constitutional: Denies: Chills, Fever, Weight Change HEENT: Denies: Head Aches, Sinus Congestion, Sinus Drainage Cardiovascular: Denies: Chest Pain, Palpitations Respiratory: Denies: Cough, Shortness of breath at rest, Sputum production Gastrointestinal: Denies: Abdominal Pain, Nausea, Vomiting Genitourinary: Denies: Dysuria Musculoskeletal: Denies: Joint Pain, Joint Tenderness Skin: Denies: Rash, Wounds Neurological: Denies: Numbness, Tingling, Focal weakness Psychiatric: Denies: Anxiety, Depression, Homicidal Ideations, Suicidal Ideations Hematologic/ Lymphatic: Denies: Easy Bruising, Easy Bleeding VTE Information - Inpt Only VTE Present on Admission: No VTE Mechan Device Prophylaxis: Knee High KWAN Hose VTE Pharm Prophylaxis ordered?: No Reason prophylaxis not ordered:: Treatment Not Indicated - Physical Exam General: Alert, Oriented x3, Cooperative HEENT: Atraumatic, PERRLA, EOMI, Normocephalic Neck: Supple, No JVD, Negative Carotid Bruits Lungs: Clear to auscultation, Normal air movement Cardiovascular: Regular rate, No murmurs Abdomen: Bowel Sounds Present, Soft, Non Tender Extremities: No edema, Capillary Refill Less than 3 Seconds Skin: No rashes, No breakdown, Incision - Sternal clean, dry intact. Abdominal incisions tender, erythematous. Musculoskeletal: No Tenderness to Palpation of Joints or Extremities Neurological: Cranial nerves II-XII grossly intact Psych/Mental Status: Normal Affect, Appropriate Assessment/Plan All Active Problems (Last Reviewed 11/11/17 @ 09:57 by Mart Souza MD) Atrial flutter with rapid ventricular response (Resolved) 78 year old female with below past medical history significant for hypertrophic obstructive cardiomyopathy, underwent septal myectomy, mitral valve repair, left atrial appendage clipping 07/30/2018, complicated by post-operative atrial fibrillation, admitted to TCU with debility, here for rehabilitation, strengthening, prior to discharge home alone. * Debility - PT/OT. * Pain - Tylenol 1000MG Q8H PRN mild pain, Oxycodone 5MG Q6H PRN moderate pain. * Bowel - Miralax 17GM daily, Senna/colace 1 tablet BID, Dulcolax 10MG PO daily PRN. * Pneumonia vaccination - Administer Prevnar 13 and/or Pneumovax 23 as necessary. * DVT prophylaxis - Not necessary, already on Warfarin. * COPD - Incruse 1 inhalation daily, Albuterol MDI 2 puffs Q4H PRN. * Coronary artery disease - Aspirin 81MG daily. * Vitamin D deficiency - D3 1000IU daily. * Fluid overload - Lasix 40MG daily. * Hypomagnesemia - Magnesium Oxide 400MG daily. * Nutrition - MVI daily. * GERD - Pantoprazole 20MG daily. * Depression - Paroxetine 10MG daily. * Hypokalemia - KCL 10MEQ daily. * Atrial fibrillation - Warfarin 2MG daily, follow INR. * Incision cellulitis - Keflex 500MG BID, Doxycycline 100MG BID x 7 days. * Insomnia - Melatonin 10MG QHS.
[2018-08-06] MEDS: oxyCODONE 5 MG Tablet PO (20:36)
[2018-08-06 20:45] VITALS: PULSE 46
[2018-08-06] MEDS: MELATONIN 10 MG TABLET PO (22:03)
[2018-08-07] MEDS: Doxycycline 100 MG CAPSULE PO ×2 (06:52→17:39)
[2018-08-07] MEDS: PARoxetine 10 MG Tablet PO (06:52)
[2018-08-07] MEDS: Cephalexin 500 MG Capsule PO ×2 (06:53→17:39)
[2018-08-07] MEDS: Magnesium Oxide 400 MG Tablet PO (06:53)
[2018-08-07] MEDS: Pantoprazole Sodium 20 MG Tablet PO (06:53)
[2018-08-07 07:16] LABS: Absolute Lymphocyte Count 1.31 X10^3/ul (0.83-4.51); Absolute Neutrophil Count 6.7 X10^3/uL (2.0-7.7); Basophil# 0.03 X10^3/uL; Basophil% 0.3 % (0-1); Eosinophil# 0.29 X10^3/uL; Eosinophils% 3.1 % (0-5); Hematocrit 29.8 % (37-47); Hemoglobin 9.4 g/dl (12.0-15.0); Lymphocyte # 1.31 X10^3/ul (4.0); Lymphocyte % 13.9 % (19-41); Mean Corp Hgb Conc 31.5 g/gl (32-36); Mean Corpuscular Hgb 25.2 pg (27.0-32.0); Mean Corpuscular Volume 79.9 fL (81-99); Mean Platelet Vol. 9.6 fl (6.2-12.0); Monocyte# 0.96 X10^3/uL; Monocyte% 10.2 % (0-10); Neutrophil # 6.69 X10^3/uL (2.7-7.7); Platelet Count 315 K/mm3 (150-450); RBC Distribution Width SD 47.9 fl (35.1-43.9); Red Blood Count 3.73 M/mm3 (4.2-5.4); White Blood Count 9.4 K/mm3 (4.4-11.0)
[2018-08-07 07:22] LABS: POSITIVE COUNT NO; POSITIVE DIFFERENTIAL NO; POSITIVE MORPHOLOGY NO
[2018-08-07] MEDS: oxyCODONE 5 MG Tablet PO ×3 (07:25→18:53)
[2018-08-07 07:26] LABS: International Normalized Ratio 1.6; Prothrombin Time (Protime)PT. 19.2 SECONDS (11.7-14.9)
[2018-08-07 07:45] LABS: Anion Gap 8 (5-15); BUN 15 mg/dL (7-18); BUN/Creat Ratio 17.2 RATIO (10-20); Calcium,Total 8.3 mg/dL (8.5-10.1); Chloride 97 mmol/L (98-107); Creatinine, Serum 0.87 mg/dL (0.55-1.02); EST Glomerular Filtration Rate 67 mL/min (>60); Est Glom Filt Rate - Afr Amer 81 mL/min (>60); Estimated Creatinine Clearance 47.18 ml/min; Glucose 108 mg/dL (74-106); Potassium 3.6 mmol/L (3.5-5.1); Sodium Level 138 mmol/L (136-145)
[2018-08-07] MEDS: Aspirin E.C. 81 MG Tablet PO (08:09)
[2018-08-07] MEDS: Furosemide 40 MG Tablet PO (08:09)
[2018-08-07] MEDS: Multivitamins,Therapeutic Tablet 1 TABLET PO (08:09)
[2018-08-07 08:15] VITALS: O2SAT 92
[2018-08-07] MEDS: Acetaminophen 500 MG Tablet 1000 MG PO (11:04)
[2018-08-07 15:14] VITALS: BP 108/49; PULSE 50; RESP 18; TEMP 36.9; O2SAT 93
--- NOTE | 2018-08-07 16:35 | RAD_ITS ---
STUDY: X-RAY CHEST REASON FOR EXAM: Female, 78 years old. Positive PPD TECHNIQUE: Frontal view of the chest COMPARISON: 05/11/2018 FINDINGS: The lungs are clear. There are no pleural effusions. There is no pneumothorax. The heart is enlarged, but stable. The patient is status post sternotomy. The visualized osseous structures are within normal limits. RAD/Chest 1 View (Portable) IMPRESSION: Stable cardiomegaly. Clear lungs. Electronically Signed: Korey Spence, at 16:50 EDT Tel , Service support ,
[2018-08-07] MEDS: MELATONIN 10 MG TABLET PO (21:26)
[2018-08-08] MEDS: oxyCODONE 5 MG Tablet PO ×4 (02:54→20:55)
[2018-08-08] MEDS: Cephalexin 500 MG Capsule PO ×2 (06:24→17:59)
[2018-08-08] MEDS: Doxycycline 100 MG CAPSULE PO ×2 (06:24→17:59)
[2018-08-08] MEDS: Furosemide 40 MG Tablet PO (06:24)
[2018-08-08] MEDS: Pantoprazole Sodium 20 MG Tablet PO (06:24)
[2018-08-08] MEDS: Magnesium Oxide 400 MG Tablet PO (06:24)
[2018-08-08] MEDS: PARoxetine 10 MG Tablet PO (06:24)
[2018-08-08] MEDS: Senna/Docusate Sodium 1 Tablet PO ×2 (06:24→18:00)
[2018-08-08 07:00] VITALS: O2SAT 83
[2018-08-08 07:05] VITALS: O2SAT 91
[2018-08-08] MEDS: Aspirin E.C. 81 MG Tablet PO (07:44)
[2018-08-08] MEDS: Multivitamins,Therapeutic Tablet 1 TABLET PO (07:44)
[2018-08-08 15:26] VITALS: BP 108/46; PULSE 56; RESP 18; TEMP 36.1; O2SAT 89
[2018-08-08] MEDS: MELATONIN 10 MG TABLET PO (20:54)
[2018-08-09] MEDS: oxyCODONE 5 MG Tablet PO ×4 (01:00→20:55)
[2018-08-09] MEDS: Cephalexin 500 MG Capsule PO ×2 (05:44→16:33)
[2018-08-09] MEDS: Doxycycline 100 MG CAPSULE PO ×2 (05:44→16:33)
[2018-08-09] MEDS: PARoxetine 10 MG Tablet PO (05:44)
[2018-08-09] MEDS: Pantoprazole Sodium 20 MG Tablet PO (05:44)
[2018-08-09] MEDS: Magnesium Oxide 400 MG Tablet PO (05:44)
[2018-08-09] MEDS: Furosemide 40 MG Tablet PO (05:44)
[2018-08-09 05:48] VITALS: O2SAT 94
[2018-08-09 06:19] LABS: International Normalized Ratio 1.9; Prothrombin Time (Protime)PT. 21.9 SECONDS (11.7-14.9)
[2018-08-09 06:51] VITALS: O2SAT 93
[2018-08-09] MEDS: Multivitamins,Therapeutic Tablet 1 TABLET PO (09:34)
[2018-08-09] MEDS: Aspirin E.C. 81 MG Tablet PO (09:34)
--- NOTE | 2018-08-09 12:05 | CASEMGMT ---
Insurance Clinical information faxed. Pending continued stay approval at this time. Auth# -will obtain with continued stay approval. Patricia BLACKMAN, GAS PUMPING STATION SUPERVISOR
[2018-08-09 15:01] VITALS: BP 131/64; PULSE 54; RESP 18; TEMP 36.7; O2SAT 90
--- NOTE | 2018-08-09 15:23 | PCM.PN.RX ---
<Kenyon Calderonip D - Last Filed: 08/09/18 15:23> Progress Note - Pharmacy Subjective: TCU Admission Objective: Allergies allopurinol Allergy (Verified 05/11/18 11:30) Rash tramadol Adverse Reaction (Verified 05/11/18 11:30) dizzy Current Medications Generic Name Dose Route Start Last Admin Trade Name Freq PRN Reason Stop Dose Admin Acetaminophen 1,000 mg 08/06/18 18:09 08/07/18 11:04 Tylenol PO 1,000 mg Q8H PRN Administration MILD PAIN (1-310) Albuterol Sulfate 2 puff 08/06/18 17:45 Ventolin Hfa (Sp) INHALATION Q4H PRN PRN SOB &/OR WHEEZING Albuterol/Ipratropium 3 ml 08/08/18 15:51 Duoneb INHALATION Q6H.RT PRN SHORTNESS OF BREATH Aspirin 81 mg 08/07/18 08:00 08/09/18 09:34 Ecotrin PO 81 mg DAILY@0800 MAGGIE Administration Bisacodyl 10 mg 08/06/18 18:08 Dulcolax PO DAILY PRN Constipation Cephalexin 500 mg 08/07/18 06:00 08/09/18 05:44 Keflex PO 08/14/18 06:01 500 mg Q12 MAGGIE Administration Cholecalciferol 1,000 unit 08/07/18 06:00 08/09/18 05:44 Vitamin D PO 1,000 unit DAILY MAGGIE Administration Doxycycline Monohydrate 100 mg 08/07/18 06:00 08/09/18 05:44 Doxycycline PO 08/14/18 06:01 100 mg BID AMGGIE Administration Furosemide 40 mg 08/07/18 06:00 08/09/18 05:44 Lasix PO 40 mg DAILY MAGIGE Administration Magnesium Oxide 400 mg 08/07/18 06:00 08/09/18 05:44 Mag-Ox 400 PO 400 mg DAILY MAGGIE Administration Melatonin 10 mg 08/06/18 22:00 08/08/18 20:54 Melatonin PO 10 mg QHS MAGGIE Administration Multivitamins 1 tablet 08/07/18 08:00 08/09/18 09:34 Multivitamin PO 1 tablet DAILY@0800 MAGGIE Administration Oxycodone HCl 5 - 10 mg 08/07/18 11:54 08/09/18 09:34 Oxyir PO 5 mg Q4H PRN PRN Administration MOD-SEVERE PAIN (4-10/10) Pantoprazole Sodium 20 mg 08/07/18 06:00 08/09/18 05:44 Protonix PO 20 mg DAILY MAGGIE Administration Paroxetine HCl 10 mg 08/07/18 06:00 08/09/18 05:44 Paxil PO 10 mg DAILY MAGGIE Administration Polyethylene Glycol 17 gm 08/07/18 06:00 08/09/18 05:34 Miralax PO Not Given DAILY MAGGIE Potassium Chloride 10 meq 08/07/18 06:00 08/09/18 05:44 K-Dur PO 10 meq DAILY MAGGIE Administration Senna/Docusate Sodium 1 tablet 08/07/18 06:00 08/09/18 05:34 Senokot-S, Stacey-Colace PO Not Given BID MAGGIE Tuberculin PPD 5 tu 08/14/18 10:00 Tubersol, Aplisol, Ppd ID 08/14/18 10:01 X1 ONE Warfarin Sodium 2 mg 08/07/18 17:00 08/08/18 18:00 Coumadin (Pbkc) PO 2 mg DAILY@1700 MAGGIE Administration Problem List (Last Reviewed 11/11/17 @ 09:57 by Mart Souza MD) Hypertrophic obstructive cardiomyopathy (HOCM) (Chronic) Mitral valve disorder (Chronic) Atrial fibrillation (Chronic) Bone metastasis (Chronic) Coronary artery disease (Chronic) Irritable bowel syndrome (Chronic) Prolonged QT syndrome (Chronic) Osteoporosis (Chronic) Chronic obstructive pulmonary disease (Chronic) B-cell lymphoma (Chronic) Vital Signs Temp Pulse Resp BP Pulse Ox 98.1 F 54 L 18 131/64 H 90 08/09/18 15:01 08/09/18 15:01 08/09/18 15:01 08/09/18 15:01 08/09/18 15:01 Oxygen Flow Rate (L/min) 2 Oxygen Delivery Method Room Air Weight: 69.513 kg Body Mass Index (BMI) 25.4 Sodium 138 mmol/L (136-145) 08/07/18 06:41 Potassium 3.6 mmol/L (3.5-5.1) 08/07/18 06:41 Chloride 97 mmol/L (98-107) L 08/07/18 06:41 Carbon Dioxide 33.0 mmol/L (21.0-32.0) H 08/07/18 06:41 Anion Gap 8 (5-15) 10 06:41 BUN 15 mg/dL (7-18) 08/07/18 06:41 Creatinine 0.87 mg/dL (0.55-1.02) 10 06:41 Est GFR (MDRD) Af Amer 81 mL/min (>60) 10 06:41 Est GFR (MDRD) Non-Af 67 mL/min (>60) 08/07/18 06:41 BUN/Creatinine Ratio 17.2 RATIO (10-20) 08/07/18 06:41 Glucose 108 mg/dL (74-106) H 10 06:41 Assessment/Plan: 1) Pain APAP for mild pain, oxycodone for moderate-severe pain. Continue to monitor prn medication use, daily pain scores. 2) AFib Warfarin daily for goal INR 2.0-3.0. Continue to monitor PT/INR, s/s bleeding/clot. 3) Cellulitis Cephalexin, doxycycline. Continue to monitor s/s infection. 4) COPD Albuterol inh prn, Duoneb aerosols prn. Both ordered prn for shortness of breath, please DC one. 5) Fluid Overload Furosemide daily, KCL. Continue to monitor BP/HR, renal function, electrolytes. 6) GI Pantoprazole daily. Continue to monitor s/s GI distress. 7) Nutrition Mg, multivitamin, D. Continue to monitor clinically. Psychotropic Medications: 8) Depression Paroxetine daily. Continue to monitor s/s depression. Unnecessary Medications: None Bowel Regimen: 9) Senna/s, PEG, prn bisacodyl. Continue to monitor prn medication use, for constipation/diarrhea. Date of Note:: 08/09/18 - Provider Comments Provider responsibility: Provider responsible to enter orders to implement recommendations <Can Smith Chi - Last Filed: 08/09/18 17:43> Progress Note - Pharmacy Subjective: [] Objective: Allergies allopurinol Allergy (Verified 05/11/18 11:30) Rash tramadol Adverse Reaction (Verified 05/11/18 11:30) dizzy Current Medications Generic Name Dose Route Start Last Admin Trade Name Freq PRN Reason Stop Dose Admin Acetaminophen 1,000 mg 08/06/18 18:09 08/07/18 11:04 Tylenol PO 1,000 mg Q8H PRN Administration MILD PAIN (1-3/10) Albuterol Sulfate 2 puff 08/06/18 17:45 Ventolin Hfa (Sp) INHALATION Q4H PRN PRN SOB &/OR WHEEZING Albuterol/Ipratropium 3 ml 08/08/18 15:51 Duoneb INHALATION Q6H.RT PRN SHORTNESS OF BREATH Aspirin 81 mg 08/07/18 08:00 08/09/18 09:34 Ecotrin PO 81 mg DAILY@0800 MAGGIE Administration Bisacodyl 10 mg 08/06/18 18:08 Dulcolax PO DAILY PRN Constipation Cephalexin 500 mg 08/07/18 06:00 08/09/18 16:33 Keflex PO 08/14/18 06:01 500 mg Q12 MAGGIE Administration Cholecalciferol 1,000 unit 08/07/18 06:00 08/09/18 05:44 Vitamin D PO 1,000 unit DAILY MAGGIE Administration Doxycycline Monohydrate 100 mg 08/07/18 06:00 08/09/18 16:33 Doxycycline PO 08/14/18 06:01 100 mg BID MAGGIE Administration Furosemide 40 mg 08/07/18 06:00 08/09/18 05:44 Lasix PO 40 mg DAILY MAGGIE Administration Magnesium Oxide 400 mg 08/07/18 06:00 08/09/18 05:44 Mag-Ox 400 PO 400 mg DAILY MAGGIE Administration Melatonin 10 mg 08/06/18 22:00 08/08/18 20:54 Melatonin PO 10 mg QHS MAGGIE Administration Multivitamins 1 tablet 08/07/18 08:00 08/09/18 09:34 Multivitamin PO 1 tablet DAILY@0800 MAGGIE Administration Oxycodone HCl 5 - 10 mg 08/07/18 11:54 08/09/18 16:31 Oxyir PO 5 mg Q4H PRN PRN Administration MOD-SEVERE PAIN (4-10/10) Pantoprazole Sodium 20 mg 08/07/18 06:00 08/09/18 05:44 Protonix PO 20 mg DAILY MAGGIE Administration Paroxetine HCl 10 mg 08/07/18 06:00 08/09/18 05:44 Paxil PO 10 mg DAILY MAGGIE Administration Polyethylene Glycol 17 gm 08/07/18 06:00 08/09/18 05:34 Miralax PO Not Given DAILY MAGGIE Potassium Chloride 10 meq 08/07/18 06:00 08/09/18 05:44 K-Dur PO 10 meq DAILY MAGGIE Administration Senna/Docusate Sodium 1 tablet 08/07/18 06:00 08/09/18 16:33 Senokot-S, Stacey-Colace PO Not Given BID MAGGIE Tuberculin PPD 5 tu 08/14/18 10:00 Tubersol, Aplisol, Ppd ID 08/14/18 10:01 X1 ONE Warfarin Sodium 2 mg 08/07/18 17:00 08/09/18 16:33 Coumadin (Pbkc) PO 2 mg DAILY@1700 MAGGIE Administration Problem List (Last Reviewed 11/11/17 @ 09:57 by Mart Souza MD) Hypertrophic obstructive cardiomyopathy (HOCM) (Chronic) Mitral valve disorder (Chronic) Atrial fibrillation (Chronic) Bone metastasis (Chronic) Coronary artery disease (Chronic) Irritable bowel syndrome (Chronic) Prolonged QT syndrome (Chronic) Osteoporosis (Chronic) Chronic obstructive pulmonary disease (Chronic) B-cell lymphoma (Chronic) Vital Signs Temp Pulse Resp BP Pulse Ox 98.1 F 54 L 18 131/64 H 90 08/09/18 15:01 08/09/18 15:01 08/09/18 15:01 08/09/18 15:01 08/09/18 15:01 Oxygen Flow Rate (L/min) 2 Oxygen Delivery Method Room Air Weight: 69.513 kg Body Mass Index (BMI) 25.4 Sodium 138 mmol/L (136-145) 08/07/18 06:41 Potassium 3.6 mmol/L (3.5-5.1) 08/07/18 06:41 Chloride 97 mmol/L (98-107) L 08/07/18 06:41 Carbon Dioxide 33.0 mmol/L (21.0-32.0) H 08/07/18 06:41 Anion Gap 8 (5-15) 08/07/18 06:41 BUN 15 mg/dL (7-18) 08/07/18 06:41 Creatinine 0.87 mg/dL (0.55-1.02) 08/07/18 06:41 Est GFR (MDRD) Af Amer 81 mL/min (>60) 08/07/18 06:41 Est GFR (MDRD) Non-Af 67 mL/min (>60) 08/07/18 06:41 BUN/Creatinine Ratio 17.2 RATIO (10-20) 08/07/18 06:41 Glucose 108 mg/dL (74-106) H 08/07/18 06:41 Assessment/Plan: Psychotropic Medications: Unnecessary Medications: Bowel Regimen: - Provider Comments Provider responsibility: Provider responsible to enter orders to implement recommendations Provider Comments to Recommendations by Pharmacy: Agree
[2018-08-09] MEDS: MELATONIN 10 MG TABLET PO (20:57)
[2018-08-10] MEDS: oxyCODONE 5 MG Tablet PO ×4 (01:57→21:00)
[2018-08-10] MEDS: Magnesium Oxide 400 MG Tablet PO (06:10)
[2018-08-10] MEDS: Doxycycline 100 MG CAPSULE PO ×2 (06:10→16:47)
[2018-08-10] MEDS: Cephalexin 500 MG Capsule PO ×2 (06:10→16:47)
[2018-08-10] MEDS: Pantoprazole Sodium 20 MG Tablet PO (06:10)
[2018-08-10] MEDS: Furosemide 40 MG Tablet PO (06:10)
[2018-08-10] MEDS: PARoxetine 10 MG Tablet PO (06:10)
[2018-08-10] MEDS: Aspirin E.C. 81 MG Tablet PO (08:20)
[2018-08-10] MEDS: Multivitamins,Therapeutic Tablet 1 TABLET PO (08:20)
[2018-08-10 15:10] VITALS: O2SAT 94
[2018-08-10 15:17] VITALS: BP 140/53; PULSE 55; RESP 18; TEMP 36.9; O2SAT 92
[2018-08-10] MEDS: MELATONIN 10 MG TABLET PO (21:00)
[2018-08-11] MEDS: oxyCODONE 5 MG Tablet PO ×4 (02:35→21:53)
[2018-08-11] MEDS: Magnesium Oxide 400 MG Tablet PO (06:12)
[2018-08-11] MEDS: Cephalexin 500 MG Capsule PO ×2 (06:12→17:42)
[2018-08-11] MEDS: PARoxetine 10 MG Tablet PO (06:12)
[2018-08-11] MEDS: Doxycycline 100 MG CAPSULE PO ×2 (06:12→17:42)
[2018-08-11] MEDS: Furosemide 40 MG Tablet PO (06:12)
[2018-08-11] MEDS: Pantoprazole Sodium 20 MG Tablet PO (06:12)
[2018-08-11] MEDS: Senna/Docusate Sodium 1 Tablet PO ×2 (06:12→17:48)
[2018-08-11 06:33] VITALS: PULSE 75; O2SAT 93
[2018-08-11 07:00] VITALS: O2SAT 94
[2018-08-11] MEDS: Multivitamins,Therapeutic Tablet 1 TABLET PO (09:10)
[2018-08-11] MEDS: Aspirin E.C. 81 MG Tablet PO (09:10)
--- NOTE | 2018-08-11 09:38 | CASEMGMT ---
Plan of care meeting held. Resident present as well as resident son. No discharge date set at this time. Resident to continue with further care and treatment on the Transitional Care Unit. Resident plans to discharge to home alone with friends/family/neighbors for support. Resident with insurance update due on 08/23/18. Resident aware that continued stay approval is not guaranteed. Support given. Will continue to follow. Patricia BLACKMAN, HISTORIOGRAPHY TEACHER
--- NOTE | 2018-08-11 12:28 | NURSING ---
Addendum entered by Alissa Martinez 08/11/18 12:34: ORIGINALLY REPORTED PAIN AT 1010. UPON REEVAL AT 1045 PT REPORTS PAIN IS MUCH BETTER AFTER REST. Original Note: PT RETURNED TO ROOM AFTER WORKING WITH THERAPY. REPORTING LT CHEST PRESSURE. REPORTS PAIN WAS GOING ACROSS WHOLE CHEST BEFORE (PREV DAYS) BUT ONLY ON LT SIDE RIGHT NOW. DENIES FURTHER SYMPTOMS, SITTING ON SIDE OF BED W/NO DISTRESS NOTED, TALKING ON PHONE. VSS. SPO2=93% ON RA. DENIES NEED FOR PAIN MED AT THIS TIME. STATES OXYIR FROM 0915 HELPING. WILL CONT TO MONITOR.
[2018-08-11 16:00] VITALS: BP 123/73; PULSE 52; RESP 18; TEMP 36.3; O2SAT 95
--- NOTE | 2018-08-11 16:11 | CASEMGMT ---
Brief interview for mental status (BIMS) and resident mood interview (PHQ-9) completed on this day. BIMS score 15. PHQ-9 score 12/29
[2018-08-11] MEDS: MELATONIN 10 MG TABLET PO (21:24)
[2018-08-12] MEDS: Senna/Docusate Sodium 1 Tablet PO ×2 (05:06→17:05)
[2018-08-12] MEDS: Cephalexin 500 MG Capsule PO ×2 (05:06→17:05)
[2018-08-12] MEDS: Pantoprazole Sodium 20 MG Tablet PO (05:06)
[2018-08-12] MEDS: oxyCODONE 5 MG Tablet PO (05:06)
[2018-08-12] MEDS: Magnesium Oxide 400 MG Tablet PO (05:06)
[2018-08-12] MEDS: Doxycycline 100 MG CAPSULE PO ×2 (05:06→17:05)
[2018-08-12] MEDS: Furosemide 40 MG Tablet PO (05:06)
[2018-08-12] MEDS: PARoxetine 10 MG Tablet PO (05:06)
--- NOTE | 2018-08-12 05:30 | RAD_ITS ---
STUDY: X-RAY CHEST REASON FOR EXAM: Female, 78 years old. Chest pain TECHNIQUE: 1 view COMPARISON: August 09, 2018 FINDINGS: Atrial appendage clip is in place. There are median sternotomy wires and mitral valve prosthesis is also identified. The heart is enlarged. There is no pneumonia or failure and no pleural effusions. The atelectatic changes in the left lung base noted and appears to have resolved.. RAD/Chest 1 View (Portable) IMPRESSION: Cardiomegaly with resolved platelike atelectatic changes in the left lung base. No acute findings in the lungs Electronically Signed: Antony Damon MD at 6:10 EDT Tel , Service support ,
--- NOTE | 2018-08-12 05:33 | NURSING ---
Addendum entered by Chiquita Poon 08/12/18 16:24: lodine, not relafen Original Note: Addendum entered by Chiquita Poon 08/12/18 16:23: Dr Smith feels pt having pleurisy, new order for Medrol dose soledad & relafen. Original Note: Upon waking, pt c/o pain to bilateral lung bases with breathing. Rating pain 6/10. 98% on 2L of oxygen. Coarse crackles noted to bilateral lowers bases upon auscultation. Dr Smith notified. N.O. for CXR.
[2018-08-12 06:00] LABS: International Normalized Ratio 2.5; Prothrombin Time (Protime)PT. 26.9 SECONDS (11.7-14.9)
[2018-08-12] MEDS: Multivitamins,Therapeutic Tablet 1 TABLET PO (08:48)
[2018-08-12] MEDS: Aspirin E.C. 81 MG Tablet PO (08:48)
[2018-08-12] MEDS: MethylPREDNISolone DosePak 4 MG BOX PO ×3 (12:32→20:59)
--- NOTE | 2018-08-12 14:12 | MDS.RN ---
Pain interview for blossom 08/13/18 completed.
[2018-08-12 15:39] VITALS: BP 135/51; PULSE 52; RESP 18; TEMP 36.5; O2SAT 97
[2018-08-12] MEDS: Etodolac 200 MG Capsule PO (17:04)
[2018-08-12] MEDS: MELATONIN 10 MG TABLET PO (20:59)
[2018-08-13] MEDS: Senna/Docusate Sodium 1 Tablet PO ×2 (05:15→16:41)
[2018-08-13] MEDS: Cephalexin 500 MG Capsule PO ×2 (05:15→16:40)
[2018-08-13] MEDS: PARoxetine 10 MG Tablet PO (05:15)
[2018-08-13] MEDS: Pantoprazole Sodium 20 MG Tablet PO (05:15)
[2018-08-13] MEDS: Magnesium Oxide 400 MG Tablet PO (05:15)
[2018-08-13] MEDS: Furosemide 40 MG Tablet PO (05:15)
[2018-08-13] MEDS: Doxycycline 100 MG CAPSULE PO ×2 (05:15→16:40)
[2018-08-13] MEDS: MethylPREDNISolone DosePak 4 MG BOX PO ×4 (07:40→21:55)
[2018-08-13] MEDS: Multivitamins,Therapeutic Tablet 1 TABLET PO (07:40)
[2018-08-13] MEDS: Aspirin E.C. 81 MG Tablet PO (07:40)
[2018-08-13] MEDS: Etodolac 200 MG Capsule PO ×2 (07:40→16:40)
[2018-08-13] MEDS: oxyCODONE 5 MG Tablet PO (07:45)
[2018-08-13 11:15] VITALS: O2SAT 95
[2018-08-13 15:21] VITALS: BP 118/53; PULSE 67; RESP 18; TEMP 36.6; O2SAT 92
[2018-08-13] MEDS: MELATONIN 10 MG TABLET PO (21:55)
[2018-08-14] MEDS: oxyCODONE 5 MG Tablet PO ×2 (01:33→22:28)
[2018-08-14] MEDS: Pantoprazole Sodium 20 MG Tablet PO (05:54)
[2018-08-14] MEDS: Senna/Docusate Sodium 1 Tablet PO ×2 (05:54→17:03)
[2018-08-14] MEDS: Cephalexin 500 MG Capsule PO (05:54)
[2018-08-14] MEDS: Doxycycline 100 MG CAPSULE PO (05:55)
[2018-08-14] MEDS: Magnesium Oxide 400 MG Tablet PO (05:55)
[2018-08-14] MEDS: PARoxetine 10 MG Tablet PO (05:55)
[2018-08-14] MEDS: Furosemide 40 MG Tablet PO (05:55)
[2018-08-14 08:30] VITALS: O2SAT 92
[2018-08-14 08:38] LABS: Absolute Lymphocyte Count 0.95 X10^3/ul (0.83-4.51); Absolute Neutrophil Count 9.3 X10^3/uL (2.0-7.7); Basophil# 0.01 X10^3/uL; Basophil% 0.1 % (0-1); Hematocrit 30.2 % (37-47); Hemoglobin 9.2 g/dl (12.0-15.0); Lymphocyte # 0.95 X10^3/ul (4.0); Lymphocyte % 8.8 % (19-41); Mean Corp Hgb Conc 30.5 g/gl (32-36); Mean Corpuscular Hgb 24.1 pg (27.0-32.0); Mean Corpuscular Volume 79.1 fL (81-99); Mean Platelet Vol. 8.7 fl (6.2-12.0); Monocyte# 0.47 X10^3/uL; Monocyte% 4.4 % (0-10); Neutrophil # 9.34 X10^3/uL (2.7-7.7); Neutrophil % 86.5 % (47-70); POSITIVE COUNT NO; POSITIVE DIFFERENTIAL NO; POSITIVE MORPHOLOGY NO; Platelet Count 434 K/mm3 (150-450); RBC Distribution Width CV 16.8 % (11.6-14.6); RBC Distribution Width SD 48.8 fl (35.1-43.9); Red Blood Count 3.82 M/mm3 (4.2-5.4); White Blood Count 10.8 K/mm3 (4.4-11.0)
[2018-08-14] MEDS: Aspirin E.C. 81 MG Tablet PO (08:46)
[2018-08-14] MEDS: Multivitamins,Therapeutic Tablet 1 TABLET PO (08:46)
[2018-08-14] MEDS: Etodolac 200 MG Capsule PO ×2 (08:46→17:02)
[2018-08-14] MEDS: MethylPREDNISolone DosePak 4 MG BOX PO ×4 (08:47→22:20)
[2018-08-14 09:10] LABS: Anion Gap 9 (5-15); BUN 22 mg/dL (7-18); BUN/Creat Ratio 25.3 RATIO (10-20); Calcium,Total 8.6 mg/dL (8.5-10.1); Chloride 102 mmol/L (98-107); Creatinine, Serum 0.87 mg/dL (0.55-1.02); EST Glomerular Filtration Rate 67 mL/min (>60); Est Glom Filt Rate - Afr Amer 81 mL/min (>60); Estimated Creatinine Clearance 47.18 ml/min; Glucose 93 mg/dL (74-106); Sodium Level 142 mmol/L (136-145)
[2018-08-14 15:36] VITALS: BP 130/68; PULSE 60; RESP 16; TEMP 36.8; O2SAT 93
[2018-08-14] MEDS: Doxepin Hcl 25 MG Capsule PO (22:20)
[2018-08-14] MEDS: MELATONIN 10 MG TABLET PO (22:20)
[2018-08-15] MEDS: Magnesium Oxide 400 MG Tablet PO (04:33)
[2018-08-15] MEDS: Polyethylene Glycol 3350 17 GM PACKET PO (04:34)
[2018-08-15] MEDS: Pantoprazole Sodium 20 MG Tablet PO (04:34)
[2018-08-15] MEDS: Furosemide 40 MG Tablet PO (04:34)
[2018-08-15] MEDS: Senna/Docusate Sodium 1 Tablet PO ×2 (04:34→17:06)
[2018-08-15] MEDS: PARoxetine 10 MG Tablet PO (04:34)
[2018-08-15] MEDS: MethylPREDNISolone DosePak 4 MG BOX PO ×3 (07:51→21:19)
[2018-08-15] MEDS: Etodolac 200 MG Capsule PO ×2 (07:51→17:06)
[2018-08-15] MEDS: Multivitamins,Therapeutic Tablet 1 TABLET PO (07:51)
[2018-08-15] MEDS: Aspirin E.C. 81 MG Tablet PO (07:51)
[2018-08-15 08:22] VITALS: O2SAT 92
[2018-08-15 16:00] VITALS: BP 132/55; PULSE 63; RESP 18; TEMP 36.1; O2SAT 91
[2018-08-15] MEDS: MELATONIN 10 MG TABLET PO (21:19)
[2018-08-15] MEDS: oxyCODONE 5 MG Tablet PO (21:19)
[2018-08-16] MEDS: Magnesium Oxide 400 MG Tablet PO (05:27)
[2018-08-16] MEDS: Furosemide 40 MG Tablet PO (05:27)
[2018-08-16] MEDS: Pantoprazole Sodium 20 MG Tablet PO (05:27)
[2018-08-16] MEDS: PARoxetine 10 MG Tablet PO (05:27)
[2018-08-16 06:03] LABS: Prothrombin Time (Protime)PT. 45.6 SECONDS (11.7-14.9)
[2018-08-16 06:08] LABS: International Normalized Ratio 4.8
[2018-08-16 06:44] VITALS: O2SAT 93
--- NOTE | 2018-08-16 09:11 | NURSING ---
Dr. Smith reviewed INR, NO to hold coumadin and check INR daily.
[2018-08-16] MEDS: Aspirin E.C. 81 MG Tablet PO (10:11)
[2018-08-16] MEDS: MethylPREDNISolone DosePak 4 MG BOX PO ×2 (10:11→21:28)
[2018-08-16] MEDS: Etodolac 200 MG Capsule PO ×2 (10:11→17:01)
[2018-08-16] MEDS: Multivitamins,Therapeutic Tablet 1 TABLET PO (10:12)
--- NOTE | 2018-08-16 11:43 | CASEMGMT ---
Social Work Spoke with resident in room. Resident requesting for discharge date to be set for 08/17/18, spoke with staff/therapy, 08/17/18 is an agreeable date at this time. Resident plans to discharge to home alone with outpatient physical therapy. Resident requesting for outpatient physical therapy to be set up through [facility]. Resident aware that order will be faxed to [facility] and then [facility] will contact resident to set up appointment. Resident also reporting to need a walker at time of discharge. Resident does not have a preference of [employer] to be utilized. Resident son to provide transportation home for resident at time of discharge. Resident declining for this socia worker to contact resident son in regards to discharge date/plan as resident is planning to speak with resident son. Support given. Will fax orders for walker and outpatient physical therapy when obtained. Proposed discharge date: 08/17/18 PLAN: Discharge to home alone with outpatient physical therapy. Patricia BLACKMAN, JUMPBASTING ARMHOLE BASTER
--- NOTE | 2018-08-16 11:55 | CASEMGMT ---
Social Work Orders for front wheeled walker and outpatient physical therapy faxed to [facility]. [facility] to deliver walker to resident room prior to resident discharge. Proposed discharge date: 08/17/18 PLAN: Discharge to home alone with outpatient physical therapy. Patricia BLACKMAN, MACHINE OPERATOR SLITTER TECHNICIAN
[2018-08-16 15:34] VITALS: BP 130/66; PULSE 71; RESP 18; TEMP 36.6; O2SAT 90
[2018-08-16] MEDS: Senna/Docusate Sodium 1 Tablet PO (17:01)
[2018-08-16] MEDS: MELATONIN 10 MG TABLET PO (21:28)
[2018-08-16] MEDS: oxyCODONE 5 MG Tablet PO (21:32)
--- NOTE | 2018-08-16 23:46 | DCINST_ITS ---
- Discharge Diagnoses Current Active Problems: Current Active and Chronic Problems (Last Reviewed 11/11/17 @ 09:57 by Mart Souza MD) Hypertrophic obstructive cardiomyopathy (HOCM) (Chronic) Mitral valve disorder (Chronic) Atrial fibrillation (Chronic) Bone metastasis (Chronic) Coronary artery disease (Chronic) Irritable bowel syndrome (Chronic) Prolonged QT syndrome (Chronic) Osteoporosis (Chronic) Chronic obstructive pulmonary disease (Chronic) B-cell lymphoma (Chronic) You will use the following diet at home:: No restrictions, Regular Your food should be the consistency of: Regular Your liquids should be the consistency of: Regular/Thin Discharge Activity: Return to Normal Activity, May Shower, Use Walker Weight Bearing Status: Weight bearing as tolerated Call your doctor if you observe: Fever of 101 or Higher, Inability to urinate, Inability to have a bowel movement, Shortness of breath, Chest pain, Uncontrolled pain Allergies/Adverse Reactions: Allergies allopurinol Allergy (Verified 05/11/18 11:30) Rash tramadol Adverse Reaction (Verified 05/11/18 11:30) dizzy Medications to take at Discharge Umeclidinium Brm/Vilanterol Tr [Anoro Ellipta 62.5-25 Mcg INH] 1 puff INHALATION DAILY 10/06/17 aspirin 81 mg tablet,delayed release 81 mg PO QDAY 11/11/17 Cholecalciferol (Vitamin D3) [Vitamin D3] 1,000 unit PO DAILY 08/06/18 Multivitamin [Daily Multiple Vitamin] 1 each PO DAILY 08/06/18 Acetaminophen [Tylenol] 1,000 mg PO Q8H PRN tablet 08/16/18 Albuterol Inhaler [Ventolin Hfa] 2 puff INHALATION Q4H PRN PRN #1 inhaler 08/16/18 Doxepin HCl [Sinequan] 25 mg PO QHS PRN #30 capsule 08/16/18 Furosemide [Lasix] 40 mg PO DAILY #30 tablet 08/16/18 Magnesium Oxide [Mag-Ox 400] 400 mg PO DAILY #30 tablet 08/16/18 Melatonin 10 mg PO QHS #30 tablet 08/16/18 Oxycodone [Oxyir] 5 mg PO Q6H PRN PRN #30 tab 08/16/18 Pantoprazole Sodium 20 mg PO DAILY #30 tablet.dr 08/16/18 Paroxetine [Paxil] 10 mg PO DAILY #30 tablet 08/16/18 Polyethylene Glycol 3350 [Miralax] 17 gm PO DAILY #30 packet 08/16/18 Potassium Chloride [K-Dur] 10 meq PO DAILY #30 tablet 08/16/18 The following prescriptions were given: Albuterol Inhaler [Ventolin Hfa] 2 puff INHALATION Q4H PRN PRN #1 inhaler PRN Reason: Sob &/Or Wheezing Oxycodone [Oxyir] 5 mg PO Q6H PRN PRN #30 tab PRN Reason: Moderate Pain (-03/11) Doxepin HCl [Sinequan] 25 mg PO QHS PRN #30 capsule PRN Reason: SLEEP Furosemide [Lasix] 40 mg PO DAILY #30 tablet Magnesium Oxide [Mag-Ox 400] 400 mg PO DAILY #30 tablet Melatonin 10 mg PO QHS #30 tablet Pantoprazole Sodium 20 mg PO DAILY #30 tablet. Paroxetine [Paxil] 10 mg PO DAILY #30 tablet Polyethylene Glycol 3350 [Miralax] 17 gm PO DAILY #30 packet Potassium Chloride [K-Dur] 10 meq PO DAILY #30 tablet Orders to be completed after discharge: Prothrombin Time w/INR Time Frame: 1 Day, Location: Laboratory Primary Care Physician: Cheyanne Holt MD [Primary Care Provider] - Please follow up with your Primary Care Physician in: 1 week. Test Results: Test results from this visit will be discussed in further detail at your follow- up appointment, if applicable. Please Follow Up With: [facility] When: 2 weeks. Please Follow Up With: Bryan ANGELA Please Follow Up With: Bryan ANGELA Please Follow Up With: Bryan ANGELA Please Follow Up With: Bryan ANGELA Proposed Discharge Date: 08/17/18
--- NOTE | 2018-08-16 23:48 | DS.PCM_ITS ---
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 Hyperlipidemia (Chronic) Hypertension (Chronic) Chronic diastolic heart failure (Chronic) Nonrheumatic mitral (valve) insufficiency (Chronic) Acute respiratory failure with hypoxia (Chronic) Bladder cancer (Chronic) Hospital Course and Treatment Imaging Results: 08/06/18 17:49 Diet: Cardiac/Low Cholesterol Food consistency:: Regular Liquid Consistency:: Regular/Thin Dietary Modifications:: Fluid Restricted Diet Diet Comments: 2000mL FR Clinical Impression(s) from Imaging Studies Chest X-Ray 08/12/18 05:30 IMPRESSION: Cardiomegaly with resolved platelike atelectatic changes in the left lung base. No acute findings in the lungs Electronically Signed: Antony Damon MD at 6:10 EDT Tel , Service support , Labs (Last 48 Hours) 08/16/18 05:20 PT 45.6 H INR 4.8 H* Operations: None Procedures: None Summary of Care Provided: The patient is a 78 year old Female with below past medical history significant for hypertrophic obstructive cardiomyopathy, underwent septal myectomy, mitral valve repair, left atrial appendage clipping 07/30/2018, complicated by post- operative atrial fibrillation, admitted to TCU with debility, here for rehabilitation, strengthening, prior to discharge home alone. 08/16/2018 INR 4.8, warfarin held, check INR 08/18/2018, adjust warfarin per Dr. Holt. Discharge home alone, with outpatient PT. - Physical Exam Vital Signs Temp Pulse Resp BP Pulse Ox 97.8 F 71 18 130/66 H 90 08/16/18 15:34 08/16/18 15:34 08/16/18 15:34 08/16/18 15:34 08/16/18 15:34 Oxygen Flow Rate (L/min) 2 Oxygen Delivery Method Room Air Weight: 69 kg Body Mass Index (BMI) 25.4 Intake and Output for Last 24 Hours 08/14/18 08/15/18 08/16/18 23:59 23:59 23:59 Intake Total 640 / 640 1080 / 1080 720 / 720 Balance 640 / 640 1080 / 1080 720 / 720 Laboratory Tests Past 24 Hrs 08/16/18 05:20 PT 45.6 H INR 4.8 H* Discharge Diet: No Restrictions Discharge Activity: Return to Normal Activity, May Shower, Use Walker Weight Bearing Status: Weight bearing as tolerated Call your doctor if you observe: Fever of 101 or Higher, Inability to urinate, Inability to have a bowel movement, Shortness of breath, Chest pain, Uncontrolled pain Home Medications: Medications to take at Discharge Umeclidinium Brm/Vilanterol Tr [Anoro Ellipta 62.5-25 Mcg INH] 1 puff INHALATION DAILY 10/06/17 aspirin 81 mg tablet,delayed release 81 mg PO QDAY 11/11/17 Cholecalciferol (Vitamin D3) [Vitamin D3] 1,000 unit PO DAILY 08/06/18 Multivitamin [Daily Multiple Vitamin] 1 each PO DAILY 08/06/18 Acetaminophen [Tylenol] 1,000 mg PO Q8H PRN tablet 08/16/18 Albuterol Inhaler [Ventolin Hfa] 2 puff INHALATION Q4H PRN PRN #1 inhaler 08/16/18 Doxepin HCl [Sinequan] 25 mg PO QHS PRN #30 capsule 08/16/18 Furosemide [Lasix] 40 mg PO DAILY #30 tablet 08/16/18 Magnesium Oxide [Mag-Ox 400] 400 mg PO DAILY #30 tablet 08/16/18 Melatonin 10 mg PO QHS #30 tablet 08/16/18 Oxycodone [Oxyir] 5 mg PO Q6H PRN PRN #30 tab 08/16/18 Pantoprazole Sodium 20 mg PO DAILY #30 tablet. 08/16/18 Paroxetine [Paxil] 10 mg PO DAILY #30 tablet 08/16/18 Polyethylene Glycol 3350 [Miralax] 17 gm PO DAILY #30 packet 08/16/18 Potassium Chloride [K-Dur] 10 meq PO DAILY #30 tablet 08/16/18 Following Prescrptions Were Given to Patient: Albuterol Inhaler [Ventolin Hfa] 2 puff INHALATION Q4H PRN PRN #1 inhaler PRN Reason: Sob &/Or Wheezing Oxycodone [Oxyir] 5 mg PO Q6H PRN PRN #30 tab PRN Reason: Moderate Pain (4-5/) Doxepin HCl [Sinequan] 25 mg PO QHS PRN #30 capsule PRN Reason: SLEEP Furosemide [Lasix] 40 mg PO DAILY #30 tablet Magnesium Oxide [Mag-Ox 400] 400 mg PO DAILY #30 tablet Melatonin 10 mg PO QHS #30 tablet Pantoprazole Sodium 20 mg PO DAILY #30 tablet. Paroxetine [Paxil] 10 mg PO DAILY #30 tablet Polyethylene Glycol 3350 [Miralax] 17 gm PO DAILY #30 packet Potassium Chloride [K-Dur] 10 meq PO DAILY #30 tablet Other Amb Orders: Prothrombin Time w/INR Time Frame: 1 Day, Location: Laboratory Primary Care Physician: Cheyanne Holt MD [Primary Care Provider] - Please follow up with your Primary Care Physician in: 1 week. Please Follow Up With: [facility] When: 2 weeks. Please Follow Up With: Brayn ANGELA Please Follow Up With: Bryan ANG[facility] Please Follow Up With: Bryan ANGELA Please Follow Up With: Bryan ANGELA Disposition: Home Minutes spent on discharge:: 35 Patient Condition:: Stable Medical Necessity - Tobacco Use Smoking Status: Former smoker Tobacco Use: Non-smoker Meaningful Use Info Meaningful Use Diagnoses (Choose all that apply): None applicable
[2018-08-17] MEDS: Furosemide 40 MG Tablet PO (05:32)
[2018-08-17] MEDS: PARoxetine 10 MG Tablet PO (05:32)
[2018-08-17] MEDS: Pantoprazole Sodium 20 MG Tablet PO (05:32)
[2018-08-17] MEDS: Magnesium Oxide 400 MG Tablet PO (05:32)
[2018-08-17] MEDS: Multivitamins,Therapeutic Tablet 1 TABLET PO (07:46)
[2018-08-17] MEDS: Aspirin E.C. 81 MG Tablet PO (07:46)
[2018-08-17] MEDS: Etodolac 200 MG Capsule PO (07:46)
[2018-08-17 07:49] VITALS: BP 145/77; PULSE 57; RESP 18; TEMP 36.8; O2SAT 93
[2018-08-17 08:37] VITALS: O2SAT 94
--- NOTE | 2018-08-17 11:28 | NURSING ---
pt requesting to have INR drawn today, new order obtained. lab will be up to draw. Pt coumadin on hold for now d/t elevated INR yesterday.
[2018-08-17 11:54] LABS: International Normalized Ratio 3.2; Prothrombin Time (Protime)PT. 32.6 SECONDS (11.7-14.9)
--- NOTE | 2018-08-17 12:22 | NURSING ---
pt notified of INR 3.2 today, aware to hold coumadin today and follow up with PCP
--- NOTE | 2018-08-17 14:05 | CASEMGMT ---
Insurance Notified insurance of resident discharge on 08/17/18 to home alone with outpatient physical therapy. Auth#[id number] Patricia BLACKMAN, MATERIALS INSPECTOR
--- NOTE | 2018-08-19 08:53 | MDS.RN ---
Information for the mds was obtained from review of the clinical record, interview of resident, staff, and direct observation of resident's care.
== END 2018-08-17 12:23 | disposition home or self-care (01) | DRG 949 ==
PROVIDERS: Admitting Provider Family Medicine Geriatric Medicine; Family Provider Internal Medicine; PCP Internal Medicine; Referring Provider Family Medicine Geriatric Medicine; Visit Provider Family Medicine Geriatric Medicine
DX: Z48.812 Encounter for surgical aftercare following surgery on the circulatory system (principal); I42.1 Obstructive hypertrophic cardiomyopathy; C79.51 Secondary malignant neoplasm of bone; C83.00 Small cell B-cell lymphoma, unspecified site; I50.32 Chronic diastolic (congestive) heart failure; L03.818 Cellulitis of other sites; I48.2 Chronic atrial fibrillation; I25.10 Atherosclerotic heart disease of native coronary artery without angina pectoris; I45.81 Long QT syndrome; J44.9 Chronic obstructive pulmonary disease, unspecified; K58.9 Irritable bowel syndrome, unspecified; E78.5 Hyperlipidemia, unspecified; I11.0 Hypertensive heart disease with heart failure; I48.0 Paroxysmal atrial fibrillation; F32.9 Major depressive disorder, single episode, unspecified; K21.9 Gastro-esophageal reflux disease without esophagitis; E87.6 Hypokalemia; Z85.51 Personal history of malignant neoplasm of bladder; Z87.891 Personal history of nicotine dependence; Z85.830 Personal history of malignant neoplasm of bone; Z85.72 Personal history of non-Hodgkin lymphomas
CPT/HCPCS: 36415; 71045; 80048; 85025; 85610; 97110; 97116; 97162; 97166; 97530; 97535; 97802

== ENCOUNTER 2018-09-27 12:00 | Outpatient (RCR) | payer MEDICARE, SELFPAY ==
--- NOTE | 2018-08-24 16:40 | HP.PTEVAL ---
Patient's Visit Information MICHELLE JIMENEZ is a 78 year old F referred to Physical Therapy by Can Smith with a diagnosis of COPD,CHF. Date of Evaluation: 08/24/18 Physical Therapist: Mani Serrano PT, - Visit Plan Frequency: 2x /Week Duration: 4 Weeks Plan: STERNAL PRECAUTIONS -OPEN HEART SURGERY -JUL 30 2018. CARDIAC PRECAUTIONS. LE strengthening,endurance program,functional ex's - Subjective Subjective: This 78 y/o female presents to physical therapy with CHF and COPD. Patient had open heart surgery with septal myoectomy ,mitrovlave repair and left atrial appendage clipping on Jul 30 at [facility] ,then d/c to to TCU at [facility] for rehab. Patient D/C to home 08/16/18.Patient has FWW when d/c with sternal precaution to lifting greater 5# , arms 90 degrees. Patient friends provide meals. Patient has cleaning lady. Patient able Independant with bathing,dressing.Prior to surgery patient was SOB with activity: Denies parathesia/tingling ,occassiolly in hands. Patient sleeping good. No SOB but extended distance mild distance.Patient has multiple comorbities to influence condition and current impairments cause deficits in ADL's and QOL. SOCIAL: . VOCATION: retired - Pain Bilateral Shoulder Pain Intensity (Out of 10): 2 Pain Intensity Range: 5 - Objective POSTURE: mild foward. STRERNAL INSCION: well approximate. NEURO: denies parathesia/tinglintg ,intact. GAIT: normal lisa reciprocal pattern. AROM: BUE. MMT BUE : 4/5,quads/hams/hip 4/5 ankle 4/5. HR 60 irregular at rest - Goals Goal 1:: Independant with HEP Goal Time Frame: 4-6 Weeks Goal 2:: Patient to be Indepoendant with posture for ADLS Goal Time Frame: 4-6 Weeks Goal 3:: Patient improve functional endurance for activity to good - with min SOB with activity . Goal Time Frame: 4-6 Weeks Goal 4:: Patient be able to perform ADL'S and function with min limitations. Goal Time Frame: 4-6 Weeks Goal 5:: Patient to improve LFES score by 10-15 points to improve QOL Goal Time Frame: 4-6 Weeks - Rehabilitation Potential Physical Therapy Diagnosis: This patient underwent s/p open heart surgery myoectomy ,mitrovalve repair,left appendage clipping Sept 28 with sternal precautions with impairments with functional endurance with acticivity Rehabilitation Potential: Good - Anticipated Interventions Patient/Client Instruction: Educate patient on: Condition, Plan of Care For the Purpose of:: To decrease pain, To increase ROM, To improve muscle performance and motor function, To improve ability to perform ADL's, To increase tolerance to activity/condition/position, To improve ability of physical actions for home/community/work/leisure, To improve health of tissue, To decrease soft tissue restriction, To improve ability to perform tasks related to life management Therapeutic Exercise to Include: Strength training, Endurance training, Balance training For the Purpose of:: To improve muscle performance and motor function, To improve ability to perform ADL's, To increase tolerance to activity/condition/position, To improve ability of physical actions for home/community/work/leisure, To increase flexibility/ROM, To improve endurance, To improve balance, To improve ability to perform tasks related to life management Thank you for the opportunity to evaluate your patient. For Medicare and Medicare HMO plans, please review the plan of care and approve it. It will need to be FAXED BACK to us at [phone] for Medicare purposes. Please let me know if there are questions or concerns regarding this plan of care. Physician Signature: Date:
--- NOTE | 2018-09-27 12:29 | HP.PTDCSUM ---
HP - PT D/C Summary It has been my pleasure to treat MICHELLE JIMENEZ under orders from [email or web address] [facility], for the diagnosis of COPD,CHF for a total of 7 visit(s). Discharge Date: 09/27/18 Please see the following information for a summary of their discharge status. - Subjective Subjective: Doing well no problems at home ..becomes SOB. Doing ADL'S - Pain Bilateral Shoulder Pain Intensity (Out of 10): 0 - Overall Improvement % Improvement: 80 - Objective Objective/Function: POSTURE: WNL. GAIT: NORMAL BRI. MMT: quads/hams /hip 4/5. BALANCE : good - Goals Goal 1:: Independant with HEP Goal Progress: Goal Met Goal 2:: Patient to be Indepoendant with posture for ADLS Goal Progress: Goal Met Goal 3:: Patient improve functional endurance for activity to good - with min SOB with activity . Goal Progress: Goal Met Goal 4:: Patient be able to perform ADL'S and function with min limitations. Goal Progress: Goal Met Goal 5:: Patient to improve LFES score by 10-15 points to improve QOL Goal Progress: Goal Met - Plan Plan: D/C - D/C Information If there are questions or concerns regarding this patient's physical therapy, please feel free to call me at [phone]. Thank you for the referral of this patient. Sincerely, Mani Serrano, PT,
== END 2018-09-27 19:00 | disposition home or self-care (01) ==
LOC: PT 12:00
PROVIDERS: Family Provider Internal Medicine; PCP Internal Medicine; Referring Provider Family Medicine Geriatric Medicine; Visit Provider Family Medicine Geriatric Medicine
DX: I50.9 Heart failure, unspecified (principal); J44.9 Chronic obstructive pulmonary disease, unspecified
CPT/HCPCS: 97110; 97162; 97530

== ENCOUNTER 2018-10-20 11:05 | Day surgery (SDC) | payer MEDICARE, SELFPAY ==
[2018-10-20 11:20] LABS: Prothrombin Time Fingerstick 23.2 SEC (11.9-14.4)
--- NOTE | 2018-10-20 13:07 | PCM.OP.BLANK ---
Problem List (1) Atrial fibrillation Status: Chronic Operative Report Date of Procedure: 10/20/18 DC cardioversion: Patient is a 78-year-old patient of Dr. Kemp's, with a history of hypertension, paroxysmal atrial fibrillation/flutter, idiopathic hypertrophic subaortic stenosis, status post myectomy procedure, who was referred for DC cardioversion. Patient has been on Coumadin and therapeutic for the past 4 weeks, and was recently loaded with amiodarone. The patient was brought to the Contract Programmer in the fasting state. The risks/benefits of the procedure were thoroughly explained the patient and informed consent was obtained. With the assistance of Dr. Winston Hannah the patient received 40 mill grams of IV propofol. Once adequate sedation was obtained the patient received a single synchronized biphasic shock at 200 J which converted from atrial flutter to normal sinus rhythm with first-degree AV block and left bundle branch block. Her left bundle branch block was seen previous on her EKG. The patient spontaneously awoke, moves all 4 extremities and tolerated the procedure well. Conclusions: Successful Coumadin and amiodarone assisted DC cardioversion with a single 200 J biphasic synchronized shock converting her to sinus rhythm with first-degree AV block and left bundle branch block. Patient will continue current medication therapy, and follow-up with Dr. Kemp going forward. No complications.
--- NOTE | 2018-10-20 14:29 | OP.PCM_ITS ---
Operative Report Date of Procedure: 10/20/18 CONSCIOUS SEDATION REPORT DATE OF SERVICE: October 20, 2018 BRIEF HISTORY OF PRESENT ILLNESS: The patient is a 78-year-old female that presented to [facility] for elective outpatient cardioversion due to underlying atrial fibrillation. The patient does have a reported history of COPD, but denies a history of obstructive sleep apnea. She does currently utilize inhalers in her home environment. She denies a previous history of anesthetic complications. Her last surface echocardiogram revealed ejection fraction of approximately 65%. She is currently anticoagulated on Coumadin. PHYSICAL EXAMINATION: VITAL SIGNS: Reviewed and were acceptable. GENERAL: The patient is a female, in no apparent distress, speaking in full sentences. HEENT: Normocephalic, atraumatic. Mucous membranes are moist and pink. Good mouth opening noted. Trachea is midline. Good neck mobility. CHEST: S1, S2 irregularly irregular. No murmurs, rubs or gallops were noted. LUNGS: Clear to auscultation bilaterally without appreciable wheezes, rales or rhonchi. ABDOMEN: Soft, nontender, nondistended. Positive bowel sounds. EXTREMITIES: There is no clubbing, cyanosis or edema. ASA Class: II DESCRIPTION OF PROCEDURE: After confirmation of informed consent, the patient's anesthesia plan was reviewed in detail. Propofol was chosen. Risks and benefits were reviewed and the patient agreed to proceed. At 1238, the patient was given 40 mg of propofol. The patient achieved an appropriate level of sedation and was given a 200 joule synchronized cardioversion by Dr. William at the bedside. This was successful in achieving normal sinus rhythm. The patient was monitored until 1246, at which time she reached her baseline mental status and function. The patient tolerated the procedure well. COMPLICATIONS: None ESTIMATED BLOOD LOSS: None RECOMMENDATIONS: Okay to recover in usual fashion. Code Visit 9xxxx: Other Procedure See Report - 20111
--- OUTSIDE RECORDS SUMMARY | 2019-01-21 15:19 | XMS RPT_ITS ---
:1940 Author Organization OHIP Support Name Relationship Address Phone JAMA, LINDA Unavailable [address] + [facility] [address] R Unavailable Unavailable Unavailable JAMA, LINDA Unavailable [address] + [facility] [address] R Unavailable Unavailable Unavailable JAMA, LINDA Unavailable [address] + [facility] [address] R Unavailable Unavailable Unavailable JAMA, LINDA Unavailable [address] + [facility] [address] R Unavailable Unavailable Unavailable JAMA, LINDA Unavailable [address] + [facility] [address] R Unavailable Unavailable Unavailable JAMA, LINDA Unavailable [address] + [facility] [address] R Unavailable Unavailable Unavailable JAMA, LINDA Unavailable [address] + [facility] [address] R Unavailable Unavailable Unavailable R Unavailable Unavailable Unavailable JAMA, LINDA Unavailable [address] + [facility] [address] R Unavailable Unavailable Unavailable JAMA, LINDA Unavailable [address] + [place] [address] R Unavailable Unavailable Unavailable JAMA, LINDA Unavailable Unavailable + JAMA, LINDA Unavailable [address] + [facility] [address] R Unavailable Unavailable Unavailable JAMA, LINDA Unavailable [address] [phone] [place] [address] R Unavailable Unavailable Unavailable JAMA, LINDA Unavailable [address] [phone] [place] [address] R Unavailable Unavailable Unavailable LINDA DUARTE Unavailable [address] [phone] [place] [address] R Unavailable Unavailable Unavailable Care Team Providers Name Role Phone Pato William Attending Unavailable Pato William Referring Unavailable Talampas, Alisia Primary Care Unavailable Libby, Nitro Attending Unavailable Talampas, Alisia Primary Care Unavailable Libby, Nitro Referring Unavailable Pato William Attending Unavailable Pato William Referring Unavailable Talampas, Alisia Primary Care Unavailable Pato William Consulting Unavailable Winston Hannah D.O. Attending Unavailable Pato William Referring Unavailable Talampas, Alisia Primary Care Unavailable Pato William Consulting Unavailable Libby, Mart Attending Unavailable Talampas, Alisia Referring Unavailable Trista Martinezman Attending Unavailable Talampas, Alisia Primary Care Unavailable Trista Martinezman Referring Unavailable Libby, Nitro Attending Unavailable Libby, Nitro Referring Unavailable ZayraeletskyTirso Admitting Unavailable TereletskyTirso Attending Unavailable Talampas, Alisia Primary Care Unavailable Talampas, Alisia Primary Care Unavailable Pato Danielson Attending Unavailable Talampas, Alisia Attending Unavailable Talampas, Alisia Referring Unavailable Talampas, Alisia Primary Care Unavailable Luis, Can Chi Admitting Unavailable Luis, Can Chi Attending Unavailable Luis, Can Chi Referring Unavailable Talampas, Alisia Primary Care Unavailable Luis, Can Chi Attending Unavailable Luis, Can Chi Referring Unavailable Talampas, Alisia Primary Care Unavailable Referred, Self Attending Unavailable Talampas, Alisia Primary Care Unavailable Physician, PCP Unknown Primary Care Unavailable KINA JANG Attending Unavailable JASVIR LAPMAN Admitting Unavailable JASVIR LAPMAN Attending Unavailable JASVIR, LAPMAN Referring Unavailable JASVIR, LAPMAN Referring Unavailable ZHOU CAMACHO (SAM) Referring Unavailable JASVIR, LAPMAN Referring Unavailable JASVIR, LAPMAN Attending Unavailable JASVIR, LAPMAN Referring Unavailable TALAMPAS, ALISIA D Referring Unavailable JAMIE JO Attending Unavailable RASTA HIDALGO Referring Unavailable TALAMPAS, ALISIA D Referring Unavailable TALAMPAS, ALISIA D Referring Unavailable BRANDON ARGUETA Referring Unavailable TALAMPAS, ALISIA D Referring Unavailable TALAMPAS, ALISIA D Referring Unavailable TALAMPAS, ALISIA D Referring Unavailable TALAMPAS, ALISIA D Referring Unavailable TALAMPAS, ALISIA D Referring Unavailable TALAMPAS, ALISIA D Attending Unavailable TALAMPAS, ALISIA D Referring Unavailable BERTHA, AALIYAH (PA) Referring Unavailable BERTHA, AALIYAH (PA) Attending Unavailable BERTHA, AALIYAH (PA) Referring Unavailable TALAMPAS, ALISIA D Referring Unavailable TALAMPAS, ALISIA D Referring Unavailable BRANDON ARGUETA Attending Unavailable BRANDON ARGUETA Referring Unavailable TALAMPAS, ALISIA D Referring Unavailable BERTHA, AALIYAH (PA) Attending Unavailable KRISHNASWAMY, AMAR Referring Unavailable KRISHNASWAMY, AMAR Referring Unavailable KRISHNASWAMY, AMAR Referring Unavailable KRISHNASWAMY, AMAR Referring Unavailable KRISHNASWAMY, AMAR Attending Unavailable KRISHNASWAMY, AMAR Referring Unavailable JASVIR, LAPMAN Attending Unavailable JASVIR LAPMAN Referring Unavailable JERAD BALES (SOUND CONTROLLER) Attending Unavailable TALAMPAS, ALISIA D Referring Unavailable TALAMPAS, ALISIA D Referring Unavailable TALAMPAS, ALISIA D Referring Unavailable BERTHA, AALIYAH (PA) Referring Unavailable BERTHAAALIYAH (PA) Referring Unavailable BERTHAAALIYAH (PA) Attending Unavailable BERTHAAALIYAH (PA) Referring Unavailable SMEDIRA, JAMIE G Referring Unavailable SMEDIRA, JAMIE G Referring Unavailable SMEDIRA, JAMIE G Referring Unavailable SMEDIRA, JAMIE G Referring Unavailable SMEDIRA, JAMIE G Referring Unavailable SMEDIRA, JAMIE G Attending Unavailable BRANDON ARGUETA Referring Unavailable SMEDIRA, JAMIE G Admitting Unavailable SMEDIRA, JAMIE G Attending Unavailable SMEDIRA, JAMIE G Referring Unavailable MELY RAMOS, GILBERTO Attending Unavailable MELY RAMOS, GILBERTO Referring Unavailable SMEDIRA, JAMIE G Referring Unavailable SMEDIRA, JAMIE G Referring Unavailable TALAMPAS, ALISIA D Referring Unavailable SMEDIRA, JAMIE G Referring Unavailable LANE NAGY (COLLECTION ANALYST) Attending Unavailable SMEDIRA, JAMIE G Referring Unavailable BRANDON ARGUETA E Attending Unavailable BRANDON ARGUETA Referring Unavailable TALAMPAS, ALISIA D Referring Unavailable BALES JERAD (SOUND CONTROLLER) Attending Unavailable TALAMPAS, ALISIA D Referring Unavailable BERTHA, AALIYAH (PA) Attending Unavailable BERTHA, AALIYAH (PA) Referring Unavailable JASVIR, LAPMAN Referring Unavailable JASVIR, LAPMAN Referring Unavailable JASVIR, LAPMAN Referring Unavailable JASVIR, LAPMAN Attending Unavailable JASVIR, LAPMAN Referring Unavailable TALAMPAS, ALISIA D Referring Unavailable TALAMPAS, ALISIA D Attending Unavailable TALAMPAS, ALISIA D Referring Unavailable TALAMPAS, ALISIA D Referring Unavailable TALAMPAS, ALISIA D Referring Unavailable BERTHA, AALIYAH (PA) Referring Unavailable BERTHAAALIYAH (PA) Attending Unavailable BERTHA, AALIYAH (PA) Referring Unavailable KENDALL, BRANDON E Referring Unavailable KENDALL, BRANDON E Referring Unavailable BERTHA, AALIYAH (PA) Attending Unavailable BERTHA, AALIYAH (PA) Referring Unavailable KENDALL, BRANDON E Attending Unavailable KENDALL, BRANDON E Referring Unavailable KENDALL, BRANDON E Referring Unavailable KENDALL, BRANDON Attending Unavailable KENDALL, BRANDON Referring Unavailable TALAMPAS, ALISIA Primary Care Unavailable KENDALL, BRANDON E Attending Unavailable KENDALL, BRANDON E Referring Unavailable PROBLEMS PROBLEMS DATE TYPE CONDITION / CODE ATTENDING STATUS SOURCE 08/06/2018 Active Unspecified atrial NA Active [facility] fibrillation / Clinic Main I48.91(ICD-10) [place] Repository 11/03/2018 Unknown I48.92 - Unspecified Libby, Mart Active [facility] atrial flutter / Community I48.92(ICD-10) Hospital Repository 10/11/2018 Active Atypical atrial NA Active [facility] flutter / Clinic Main I48.4(ICD-10) [place] Repository 10/11/2018 Active Chronic obstructive NA Active [facility] pulmonary disease [facility] Main with (acute) [place] exacerbation / Repository J44.1(ICD-10) 10/05/2018 Unknown I50.9 - Heart Luis, Can Chi Active [facility] failure, unspecified Community / I50.9(ICD-10) Hospital Repository 09/14/2018 Active 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, 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 / Repository C83.58(ICD-10) 08/23/2018 Active Encounter for NA Active [facility] therapeutic drug [facility] Main level monitoring / [place] Z51.81(ICD-10) Repository 08/23/2018 Active USP (current) NA Active [facility] use of Clinic Main 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 / [place] Z79.01(ICD-10) Repository 08/06/2018 Active Essential (primary) NA Active [facility] hypertension / Clinic Main I10(ICD-10) [place] Repository 08/19/2018 Active Other jail NA Active [facility] (current) drug Clinic Main therapy / [place] Z79.899(ICD-10) Repository 09/13/2018 Unknown Z48.812 - Encounter Luis, Can Chi Active [facility] for surgical Community aftercare following Hospital surgery on the Repository circulatory system / Z48.812(ICD-10) 09/13/2018 Unknown I42.1 - Obstructive Luis, Can Chi Active [facility] hypertrophic Community cardiomyopathy / Hospital I42.1(ICD-10) Repository 08/06/2018 Active Obstructive SMEDIRA, Active [facility] hypertrophic [facility] Main cardiomyopathy / [place] I42.1(ICD-10) Repository 08/06/2018 Active Other acute SMEDIRA, Active [facility] postprocedural pain [facility] Main / G89.18(ICD-10) [place] Repository 07/29/2018 Active Nonrheumatic mitral NA Active [facility] valve disorder, Clinic Main unspecified / [place] I34.9(ICD-10) Repository 07/29/2018 Active Encounter for other NA Active [facility] preprocedural [facility] Main examination / [place] Z01.818(ICD-10) Repository 07/29/2018 Active Encounter for NA Active [facility] administrative [facility] Main examinations, [place] unspecified / Repository Z02.9(ICD-10) 07/29/2018 Active Nonrheumatic mitral NA Active [facility] (valve) [facility] Main insufficiency / [place] I34.0(ICD-10) Repository 07/29/2018 Active Encounter for NA Active [facility] preprocedural [facility] Main cardiovascular [place] examination / Repository Z01.810(ICD-10) 07/09/2018 Unknown J43.9 - Emphysema, Talampas, Alisia Active [facility] unspecified / Community J43.9(ICD-10) Hospital Repository 07/09/2018 Unknown I48.91 - Unspecified Talampas, Alisia Active [facility] atrial fibrillation Community / I48.91(ICD-10) Hospital Repository 06/10/2018 Active Persistent atrial NA Active [facility] fibrillation / Clinic Main I48.1(ICD-10) [place] Repository 06/03/2018 Active Unknown / BERTHA, Active [facility] UNK(Unknown) AALIYAH (SAM) Clinic Main [place] Repository 05/02/2018 Admitting Unknown / WOIDTKE, Active [facility] Diagnosis UNK(Unknown) [facility] Repository 05/26/2017 Active Emphysema, NA Active [facility] unspecified / Clinic Main J43.9(ICD-10) [place] Repository 01/13/2018 Active Paroxysmal atrial NA Active [facility] fibrillation / Clinic Main I48.0(ICD-10) [place] Repository 12/06/2017 Active Cough / R05(ICD-10) NA Active [facility] Main [place] Repository 11/20/2017 Active Small cell b-cell JASVIR, 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 Yemi Dent MA PROGRESS Observed: 11/16/2018 Status: COMPLETED Source: [place] 2:59 PM [facility] REPOSITORY HNO ID: [id number] Author: Portia Theodore RN Service: (none) Author Type: (none) Type: Progress Notes Filed: 11/16/2018 3:00 PM Note Text: patient had inr completed at [facility] patients inr is 2.8 (patients inr range is 2.0-3.0) patient is currently taking 2mg-2mg-1mg cycle patients last dose change was on 10/14/18 due to a high level of 3.2 (dose at that time was 2mg alternating with 1mg) patient has had no changes in medication and no missed doses and no change in diet Advised patient that they would be contacted regarding medication dose and when to follow up after information is reviewed by provider. After provider review please contact the patient with information and schedule follow up appointment with coumadin clinic. CNOV Observed: 11/12/2018 Status: COMPLETED Source: [place] 3:45 PM [facility] REPOSITORY Office Visit ([facility]) PRISCILLA SHARPE ([id number]) 1940 F Date Time Provider Department 11/12/18 3:45 PM BRANDON ARGUETA [facility] During your visit today, we recorded the following information about you: Pulse Blood pressure Weight Height 78/minute 106/70 69.2 kg 1.651 m Brandon Argueta MD 11/12/2018 6:17 PM Signed PERTINENT CARDIAC HISTORY PAF - cardioversion 05/18, 10/18, PVI, Atricure 07/20 HCM - myectomy 07/20 HTN HL - declines statin MVP with mitral insufficiency - severe, 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) 07/20 CHF - diastolic Long QT LBBB ADHERENCE TO GUIDELINES CIERRA-I or ARB for HF with prior LVEF<40 (NQF 0081) - N/A ASA or Plavix for ASHD (NQF 0067) - N/A Beta jhon for ASHD with prior RI or prior LVEF<40 (NQF 0070) - N/A Beta jhon for HF with prior LVEF<40 (NQF 0083) - N/A CIERRA-I or ARB for ASHD with DM or prior LVEF<40 (NQF 0066) - N/A Statin therapy for ASHD or FHL or DM - declines BMI documented and plan if >25 (NQF 0421) - lifestyle recommendation form Tobacco use screening and referral (NQF 0028) - lifestyle recommendation form Recommendation for whole food, plant based diet - lifestyle recommendation form CLINICAL IMPRESSION/PLAN: Priscilla Sharpe remains in sinus rhythm. She is advised to continue her low-dose amiodarone. Her beta jhon will be discontinued. I advised her to watch for signs of progressive conduction disease, which were discussed. She may ultimately require pacemaker therapy. I will see her in 3 months or as needed. Written and verbal health teaching given to patient, patient verbalizes understanding and agrees with treatment plan. DIAGNOSIS FOR VISIT: PAF Hypertrophic myopathy HISTORY OF PRESENT ILLNESS Priscilla Sharpe returns for follow-up of her cardioversion. This was accomplished successfully. She's had no palpitations since. She reports better exercise tolerance. Her breathing is improved. She's had no chest pain. She denies edema, syncope. She had no TIA symptoms post cardioversion. ALLERGIES: ALLERGIES Allergen Reactions - Zyloprim [Allopurin* Rash - Environmental [Othe* Intolerance rhinitis - Tramadol Other: See Comments made patient woozy/dizzy CURRENT OUTPATIENT MEDICATIONS: amiodarone (PACERONE) 200 mg tablet Take 0.5 tablets by mouth once daily. warfarin (COUMADIN) 2 mg tablet Take 1 tablet by mouth daily as directed. or as directed atenolol (TENORMIN) 50 mg tablet Take 0.5 tablets by mouth once daily. furosemide (LASIX) 40 mg tablet Take 0.5 tablets by mouth once daily. umeclidinium-vilanterol (ANORO ELLIPTA) 62.5-25 mcg/actuation inhaler Inhale one inhalation as instructed once daily albuterol HFA (VENTOLIN HFA) 90 mcg/actuation inhaler Inhale 2 Puffs as instructed every 4 hours as needed for Wheezing/Shortness of Breath. acetaminophen (TYLENOL) 325 mg tablet 1-2 tablets by ORAL/FEEDING TUBE route every 4 hours as needed for Pain (for mild to moderate pain). therapeutic multivitamin (THERA VITAMIN) tablet Take 1 tablet by mouth daily with breakfast. aspirin 81 mg chewable tablet Take 1 tablet by mouth once daily. pantoprazole DR (PROTONIX) 20 mg tablet Take 1 tablet by mouth DAILY (6 AM). PARoxetine (PAXIL) 10 mg tablet Take 1 tablet by mouth once daily. potassium chloride (K-TAB) 10 mEq tablet Take 10 mEq by mouth once daily. warfarin (COUMADIN) 2 mg tablet Take 2 mg by mouth once daily. magnesium oxide (MAGOX) 400 mg tablet Take 1 tablet by mouth once daily. albuterol (PROVENTIL) 5 mg/mL nebu Inhale 0.5 mL as instructed one time only for 1 dose. 1 DOSE NOW - BACK OFFICE. PLACE 0.5 ML PER DROPPER AND 2.5 ML OF NORMAL SALINE INTO RESERVOIR. albuterol (PROVENTIL) 5 mg/mL nebu Inhale 0.5 mL as instructed one time only for 1 dose. 1 DOSE NOW - BACK OFFICE. PLACE 0.5 ML PER DROPPER AND 2.5 ML OF NORMAL SALINE INTO RESERVOIR. Cholecalciferol, Vitamin D3, 1,000 unit cap Take 1 capsule by mouth once daily. PHYSICAL EXAMINATION: VITAL SIGNS: BP 106/70 Pulse 78 Ht 5' 5 (1.65m) Wt 152 lb 9.6 oz (69.2kg) BMI 25.39 kg/(m2). Chest: Clear to auscultation. Trachea is midline. Air entry is equal. Cardiac: Regular rhythm. S1 and S2 are normal. PMI is nondisplaced. There is a 1/6 systolic ejection murmur. Carotids are brisk without bruits. JVP is less than 10 cm. Abdomen: Soft and nontender. There are no pulsatile masses or bruits. No liver enlargement. Bowel sounds are active. Extremities: No edema. Pulses are intact and symmetrical. EKG today shows sinus rhythm with first-degree AV block. There is no significant change since her immediate post cardioversion study. Her ND interval is markedly prolonged. This is the first time she has been in sinus since her surgery. Electronically Signed: Brandon Argueta MD November 12, 2018 11:09 AM CC: MD Brandon Hernandez MD 11/12/2018 11:11 AM Signed LIFESTYLE CHANGE A healthy lifestyle is the most important component of your overall treatment plan. Please give serious thought to the following areas and commit to making adjunct faculty for medical terminology changes. EAT A WHOLE FOOD, PLANT BASED DIET The nutrition your body gets is more important than the medicine you take. What matters most is the overall way you eat. We encourage you to minimize the use of animal products (which include dairy and all meats except fatty fish) and use whole, unprocessed plant foods to provide your protein, vitamins and other nutrients. We have a lot of information to share with you on this topic. This is not a diet. It is a way of life that you will keep with you. EXERCISE REGULARLY It is not important to spend hours in the gym, lifting weights and perspiring heavily. A total of 2-3 hours per week of aerobic (causing you to be moderately short of breath) exercise is sufficient to improve your health. Talk to us before you begin a new exercise program, if you have heart disease or experience shortness of breath or chest pain. REDUCE STRESS Chronic emotional and physical stress leads to disease. Ways of reducing stress include meditation, visualization, prayer, yoga and other forms of relaxation therapy. Consistency is the aquino. Find a technique that works for you and do it every day. CULTIVATE RELATIONSHIPS Loneliness and isolation have a major negative impact on health. Seek out others who can love, care for and nurture you. Avoid hurtful relationships. MAINTAIN IDEAL BODY WEIGHT The best way to do this is to do all the things above. Our bodies naturally find the right weight if we keep moving and feed ourselves the right food. If your BMI is greater than 25, we strongly recommend a referral to a weight management program. Please speak to us or your family physician about available programs. AVOID NICOTINE IN ALL FORMS This includes all tobacco products, whether chewed, smoked, vaped, or rubbed on the skin. Smoking cessation programs, which can make use of tobacco substitutes, medications to suppress cravings and behavior management, are available. Please contact your family physician about programs in your area. Referring Provider: BRANDON ARGUETA [[id number]] Allergies As of Date: 11/12/2018 Noted Allergy Reaction ZYLOPRIM (ALLOPURINOL) 05/26/2017 2 - Rash environmental [Other] 12/30/2005 5 - Intolerance Comments: rhinitis TRAMADOL 03/10/2016 14 - Other: See Comments Comments: made patient woozy/dizzy Date Reviewed: 11/12/2018 Reviewed by: Yemi Dent MA - Fully Assessed Reason for Visit: Established Patient [175] Primary Visit Diagnosis:PAF (paroxysmal atrial fibrillation) ([facility]) [I48.0] Order(s):ECG COMPLETE W INTERPRETATION [ECG01] Order #: [id number] FUTURE Prescriptions as of 11/12/2018 Sig: AMIODARONE 200 MG TABLET Take 0.5 tablets by mouth onc* WARFARIN 2 MG TABLET Take 1 tablet by mouth daily * FUROSEMIDE 40 MG TABLET Take 0.5 tablets by mouth onc* UMECLIDINIUM 62.5 MCG-VILANTE* Inhale one inhalation as inst* ALBUTEROL SULFATE HFA 90 MCG/* Inhale 2 Puffs as instructed * ACETAMINOPHEN 325 MG TABLET 1-2 tablets by ORAL/FEEDING T* THERAPEUTIC MULTIVITAMIN TABL* Take 1 tablet by mouth daily * ASPIRIN 81 MG CHEWABLE TABLET Take 1 tablet by mouth once d* PANTOPRAZOLE 20 MG TABLET,DEL* Take 1 tablet by mouth DAILY * PAROXETINE 10 MG TABLET Take 1 tablet by mouth once d* POTASSIUM CHLORIDE ER 10 MEQ * Take 10 mEq by mouth once kodi* WARFARIN 2 MG TABLET Take 2 mg by mouth once daily. MAGNESIUM OXIDE 400 MG (241.3* Take 1 tablet by mouth once d* ALBUTEROL SULFATE CONCENTRATE* Inhale 0.5 mL as instructed o* ALBUTEROL SULFATE CONCENTRATE* Inhale 0.5 mL as instructed o* CHOLECALCIFEROL (VITAMIN D3) * Take 1 capsule by mouth once * Problem List As Of Date 11/12/2018 Noted Resolved FX LATERAL MALLEOLUS-CLOSE [S82.63XA] INVALID FOR*09/05/2008 ELEV BL PRES W/O HYPERTN [R03.0] INVALID FOR*10/06/2008 Unspecified disorder of bladder [N32.9] INVALID FOR*08/03/2018 More... Impaired fasting glucose [R73.01] INVALID FOR*08/03/2018 Essential hypertension [I10] INVALID FOR* More... Osteoporosis [M81.0] INVALID FOR* More... Vitamin D deficiency [E55.9] INVALID FOR*08/03/2018 More... MR (mitral regurgitation) [I34.0] More... IBS (irritable bowel syndrome) [K58.9] 08/03/2018 More... 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 Afib (HCC) [I48.91] INVALID FOR* More... Pulmonary emphysema (HCC) [J43.9] INVALID FOR* Bone metastasis (HCC) [C79.51] INVALID FOR* More... 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 HOCM (hypertrophic obstructive cardiomyopathy) *INVALID FOR* More... Discharge planning issues [Z02.9] INVALID FOR* More... Preop testing [Z01.818] INVALID FOR*08/03/2018 More... Encounter for preoperative anesthesiology asses*INVALID FOR* Cardiac insufficiency (HCC) [I50.9] INVALID FOR*07/31/2018 More... On mechanically assisted ventilation (HCC) [Z99*INVALID FOR*07/31/2018 More... Postoperative pain [G89.18] INVALID FOR*08/03/2018 More... Stress hyperglycemia [R73.9] INVALID FOR*08/05/2018 More... Hypovolemia/fluctuating lacic acidosis [E86.1] INVALID FOR*08/02/2018 More... COPD (chronic obstructive pulmonary disease) (H*INVALID FOR* More... Anxiety [F41.9] INVALID FOR* More... Hypervolemia [E87.70] INVALID FOR*08/03/2018 More... RADHA (acute kidney injury) (HCC) [N17.9] INVALID FOR*08/05/2018 More... Transition of care performed with sharing of cl*INVALID FOR* More... S/P ventricular septal myectomy [Z98.890] INVALID FOR* Status post mitral valve repair [Z98.890] INVALID FOR* Other instructions from your clinician: LIFESTYLE CHANGE A healthy lifestyle is the most important component of your overall treatment plan. Please give serious thought to the following areas and commit to making jail changes. EAT A WHOLE FOOD, PLANT BASED DIET The nutrition your body gets is more important than the medicine you take. What matters most is the overall way you eat. We encourage you to minimize the use of animal products (which include dairy and all meats except fatty fish) and use whole, unprocessed plant foods to provide your protein, vitamins and other nutrients. We have a lot of information to share with you on this topic. This is not a diet. It is a way of life that you will keep with you. EXERCISE REGULARLY It is not important to spend hours in the gym, lifting weights and perspiring heavily. A total of 2-3 hours per week of aerobic (causing you to be moderately short of breath) exercise is sufficient to improve your health. Talk to us before you begin a new exercise program, if you have heart disease or experience shortness of breath or chest pain. REDUCE STRESS Chronic emotional and physical stress leads to disease. Ways of reducing stress include meditation, visualization, prayer, yoga and other forms of relaxation therapy. Consistency is the aquino. Find a technique that works for you and do it every day. CULTIVATE RELATIONSHIPS Loneliness and isolation have a major negative impact on health. Seek out others who can love, care for and nurture you. Avoid hurtful relationships. MAINTAIN IDEAL BODY WEIGHT The best way to do this is to do all the things above. Our bodies naturally find the right weight if we keep moving and feed ourselves the right food. If your BMI is greater than 25, we strongly recommend a referral to a weight management program. Please speak to us or your family physician about available programs. AVOID NICOTINE IN ALL FORMS This includes all tobacco products, whether chewed, smoked, vaped, or rubbed on the skin. Smoking cessation programs, which can make use of tobacco substitutes, medications to suppress cravings and behavior management, are available. Please contact your family physician about programs in your area. Medications Discontinued During This Encounter atenolol (TENORMIN) 50 mg tablet 90 t* 3 10/12/2018 11/12/2018 Route: ORAL Sig: Take 0.5 tablets by mouth once daily. Disc: Reason for discontinue is not on file. Encounter Status:Closed by BRANDON ARGUETA MD on 11/12/18 CNNURSE Observed: 11/12/2018 Status: COMPLETED Source: [place] 1:00 PM [facility] REPOSITORY Nurse Visit (CAWSTR) PRISCILLA SHARPE ([id number]) 1940 F Date Time Provider Department 11/12/18 1:00 PM NURSE CARD ADMIN [facility] CAWSTR During your visit today, we recorded the following information about you: Anand Mejía RN 11/12/2018 1:15 PM Signed Ekg completed per order. Pt tolerated procedure without distress. Anand Mejía RN Referring Provider: BRANDON ARGUETA [[id number]] Allergies As of Date: 11/12/2018 Noted Allergy Reaction ZYLOPRIM (ALLOPURINOL) 05/26/2017 2 - Rash environmental [Other] 12/30/2005 5 - Intolerance Comments: rhinitis TRAMADOL 03/10/2016 14 - Other: See Comments Comments: made patient woozy/dizzy Date Reviewed: 11/12/2018 Reviewed by: Yemi Dent MA - Fully Assessed Reason for Visit: Nurse Visit [792] Visit Diagnosis:PAF (paroxysmal atrial fibrillation) ([facility]) [I48.0] Order(s):ECG COMPLETE W INTERPRETATION [ECG01] Order #: [id number] Prescriptions as of 11/12/2018 Sig: AMIODARONE 200 MG TABLET Take 0.5 tablets by mouth onc* WARFARIN 2 MG TABLET Take 1 tablet by mouth daily * FUROSEMIDE 40 MG TABLET Take 0.5 tablets by mouth onc* UMECLIDINIUM 62.5 MCG-VILANTE* Inhale one inhalation as inst* ALBUTEROL SULFATE HFA 90 MCG/* Inhale 2 Puffs as instructed * ACETAMINOPHEN 325 MG TABLET 1-2 tablets by ORAL/FEEDING T* THERAPEUTIC MULTIVITAMIN TABL* Take 1 tablet by mouth daily * ASPIRIN 81 MG CHEWABLE TABLET Take 1 tablet by mouth once d* PANTOPRAZOLE 20 MG TABLET,DEL* Take 1 tablet by mouth DAILY * PAROXETINE 10 MG TABLET Take 1 tablet by mouth once d* POTASSIUM CHLORIDE ER 10 MEQ * Take 10 mEq by mouth once kodi* WARFARIN 2 MG TABLET Take 2 mg by mouth once daily. MAGNESIUM OXIDE 400 MG (241.3* Take 1 tablet by mouth once d* ALBUTEROL SULFATE CONCENTRATE* Inhale 0.5 mL as instructed o* ALBUTEROL SULFATE CONCENTRATE* Inhale 0.5 mL as instructed o* CHOLECALCIFEROL (VITAMIN D3) * Take 1 capsule by mouth once * Problem List As Of Date 11/12/2018 Noted Resolved FX LATERAL MALLEOLUS-CLOSE [S82.63XA] INVALID FOR*09/05/2008 ELEV BL PRES W/O HYPERTN [R03.0] INVALID FOR*10/06/2008 Unspecified disorder of bladder [N32.9] INVALID FOR*08/03/2018 More... Impaired fasting glucose [R73.01] INVALID FOR*08/03/2018 Essential hypertension [I10] INVALID FOR* More... Osteoporosis [M81.0] INVALID FOR* More... Vitamin D deficiency [E55.9] INVALID FOR*08/03/2018 More... MR (mitral regurgitation) [I34.0] More... IBS (irritable bowel syndrome) [K58.9] 08/03/2018 More... 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 Afib (HCC) [I48.91] INVALID FOR* More... Pulmonary emphysema (HCC) [J43.9] INVALID FOR* Bone metastasis (HCC) [C79.51] INVALID FOR* More... 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 HOCM (hypertrophic obstructive cardiomyopathy) *INVALID FOR* More... Discharge planning issues [Z02.9] INVALID FOR* More... Preop testing [Z01.818] INVALID FOR*08/03/2018 More... Encounter for preoperative anesthesiology asses*INVALID FOR* Cardiac insufficiency (HCC) [I50.9] INVALID FOR*07/31/2018 More... On mechanically assisted ventilation (HCC) [Z99*INVALID FOR*07/31/2018 More... Postoperative pain [G89.18] INVALID FOR*08/03/2018 More... Stress hyperglycemia [R73.9] INVALID FOR*08/05/2018 More... Hypovolemia/fluctuating lacic acidosis [E86.1] INVALID FOR*08/02/2018 More... COPD (chronic obstructive pulmonary disease) (H*INVALID FOR* More... Anxiety [F41.9] INVALID FOR* More... Hypervolemia [E87.70] INVALID FOR*08/03/2018 More... RADHA (acute kidney injury) (HCC) [N17.9] INVALID FOR*08/05/2018 More... Transition of care performed with sharing of cl*INVALID FOR* More... S/P ventricular septal myectomy [Z98.890] INVALID FOR* Status post mitral valve repair [Z98.890] INVALID FOR* Visit Notes: >> Anand Mejía RN Fri Nov 12, 2018 1:15 PM Status: Signed Ekg completed per order. Pt tolerated procedure without distress. Anand Mejía RN Encounter Status:Closed by ANAND MEJÍA RN on 11/12/18 EKG1 Observed: 11/12/2018 Status: F Source: [place] 12:12 PM [facility] REPOSITORY NAME : PRISCILLA SHARPE PID : [id number] : 1940 Gender : Female Race : ORD : Procedure Date : Nov 12 2018 12:12:20 Edit Date : Nov 13 2018 07:21:15 Diagnosis:SINUS RHYTHM WITH 1ST DEGREE AV BLOCK COMPLETE LEFT BUNDLE BRANCH BLOCK ABNORMAL ECG NO SIGNIFICANT CHANGE FROM PREVIOUS ECG Confirmed by BRANDON ARGUETA MD ([id number]) on 11/13/2018 7:21:14 AM Ventricular Rate : 65 BPM Atrial Rate : 65 BPM P-R Interval : 392 ms QRS Duration : 148 ms Q-T Interval : 532 ms QTC Calculation(Bezet) : 553 ms P Friendship : 92 degrees R Friendship : -28 degrees T Friendship : 147 degrees Test Reason : Location : 136 : [place] Overread By : BRANDON ARGUETA MD Edited By : BRANDON ARGUETA MD Referred By : KENDALL, Acquired by : [email or web address] Observed: 11/12/2018 Status: F Source: [place] 12:11 PM [facility] REPOSITORY NAME : PRISCILLA SHARPE PID : [id number] : 1940 Gender : Female Race : ORD : Procedure Date : Nov 12 2018 12:11:25 Edit Date : Nov 13 2018 07:20:45 Diagnosis:SINUS RHYTHM WITH 1ST DEGREE AV BLOCK COMPLETE LEFT BUNDLE BRANCH BLOCK ABNORMAL ECG ATRIAL FIBRILLATION HAS RESOLVED Confirmed by BRANDON ARGUETA MD ([id number]) on 11/13/2018 7:20:40 AM Ventricular Rate : 65 BPM Atrial Rate : 65 BPM P-R Interval : 386 ms QRS Duration : 152 ms Q-T Interval : 546 ms QTC Calculation(Bezet) : 567 ms P Friendship : 75 degrees R Friendship : -32 degrees T Friendship : 148 degrees Test Reason : Location : 136 : [place] Overread By : BRANDON ARGUETA MD Edited By : BRANDON ARGUETA MD Referred By : KENDALL, Acquired by : , PROGRESS Observed: 11/12/2018 Status: COMPLETED Source: [place] 11:09 AM [facility] REPOSITORY O ID: [id number] Author: Brandon Argueta Service: (none) Author Type: Physician Type: Progress Notes Filed: 11/12/2018 6:17 PM Note Text: PERTINENT CARDIAC HISTORY PAF - cardioversion 05/18, 10/18, PVI, Atricure 07/20 HCM - myectomy 07/20 HTN HL - declines statin MVP with mitral insufficiency - severe, 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) 07/20 CHF - diastolic Long QT LBBB ADHERENCE TO GUIDELINES CIERRA-I or ARB for HF with prior LVEF<40 (NQF 0081) - N/A ASA or Plavix for ASHD (NQF 0067) - N/A Beta jhon for ASHD with prior RI or prior LVEF<40 (NQF 0070) - N/A Beta jhon for HF with prior LVEF<40 (NQF 0083) - N/A CIERRA-I or ARB for ASHD with DM or prior LVEF<40 (NQF 0066) - N/A Statin therapy for ASHD or FHL or DM - declines BMI documented and plan if >25 (NQF 0421) - lifestyle recommendation form Tobacco use screening and referral (NQF 0028) - lifestyle recommendation form Recommendation for whole food, plant based diet - lifestyle recommendation form CLINICAL IMPRESSION/PLAN: Priscilla Sharpe remains in sinus rhythm. She is advised to continue her low-dose amiodarone. Her beta jhon will be discontinued. I advised her to watch for signs of progressive conduction disease, which were discussed. She may ultimately require pacemaker therapy. I will see her in 3 months or as needed. Written and verbal health teaching given to patient, patient verbalizes understanding and agrees with treatment plan. DIAGNOSIS FOR VISIT: PAF Hypertrophic myopathy HISTORY OF PRESENT ILLNESS Priscilla Sharpe returns for follow-up of her cardioversion. This was accomplished successfully. She's had no palpitations since. She reports better exercise tolerance. Her breathing is improved. She's had no chest pain. She denies edema, syncope. She had no TIA symptoms post cardioversion. ALLERGIES: ALLERGIES Allergen Reactions - Zyloprim [Allopurin* Rash - Environmental [Othe* Intolerance rhinitis - Tramadol Other: See Comments made patient woozy/dizzy CURRENT OUTPATIENT MEDICATIONS: amiodarone (PACERONE) 200 mg tablet Take 0.5 tablets by mouth once daily. warfarin (COUMADIN) 2 mg tablet Take 1 tablet by mouth daily as directed. or as directed atenolol (TENORMIN) 50 mg tablet Take 0.5 tablets by mouth once daily. furosemide (LASIX) 40 mg tablet Take 0.5 tablets by mouth once daily. umeclidinium-vilanterol (ANORO ELLIPTA) 62.5-25 mcg/actuation inhaler Inhale one inhalation as instructed once daily albuterol HFA (VENTOLIN HFA) 90 mcg/actuation inhaler Inhale 2 Puffs as instructed every 4 hours as needed for Wheezing/Shortness of Breath. acetaminophen (TYLENOL) 325 mg tablet 1-2 tablets by ORAL/FEEDING TUBE route every 4 hours as needed for Pain (for mild to moderate pain). therapeutic multivitamin (THERA VITAMIN) tablet Take 1 tablet by mouth daily with breakfast. aspirin 81 mg chewable tablet Take 1 tablet by mouth once daily. pantoprazole DR (PROTONIX) 20 mg tablet Take 1 tablet by mouth DAILY (6 AM). PARoxetine (PAXIL) 10 mg tablet Take 1 tablet by mouth once daily. potassium chloride (K-TAB) 10 mEq tablet Take 10 mEq by mouth once daily. warfarin (COUMADIN) 2 mg tablet Take 2 mg by mouth once daily. magnesium oxide (MAGOX) 400 mg tablet Take 1 tablet by mouth once daily. albuterol (PROVENTIL) 5 mg/mL nebu Inhale 0.5 mL as instructed one time only for 1 dose. 1 DOSE NOW - BACK OFFICE. PLACE 0.5 ML PER DROPPER AND 2.5 ML OF NORMAL SALINE INTO RESERVOIR. albuterol (PROVENTIL) 5 mg/mL nebu Inhale 0.5 mL as instructed one time only for 1 dose. 1 DOSE NOW - BACK OFFICE. PLACE 0.5 ML PER DROPPER AND 2.5 ML OF NORMAL SALINE INTO RESERVOIR. Cholecalciferol, Vitamin D3, 1,000 unit cap Take 1 capsule by mouth once daily. PHYSICAL EXAMINATION: VITAL SIGNS: BP 106/70 Pulse 78 Ht 5' 5 (1.65m) Wt 152 lb 9.6 oz (69.2kg) BMI 25.39 kg/(m2). Chest: Clear to auscultation. Trachea is midline. Air entry is equal. Cardiac: Regular rhythm. S1 and S2 are normal. PMI is nondisplaced. There is a 1/6 systolic ejection murmur. Carotids are brisk without bruits. JVP is less than 10 cm. Abdomen: Soft and nontender. There are no pulsatile masses or bruits. No liver enlargement. Bowel sounds are active. Extremities: No edema. Pulses are intact and symmetrical. EKG today shows sinus rhythm with first-degree AV block. There is no significant change since her immediate post cardioversion study. Her ND interval is markedly prolonged. This is the first time she has been in sinus since her surgery. Electronically Signed: Brandon Argueta MD November 12, 2018 11:09 AM CC: Alisia Pacheco MD PROGRESS Observed: 11/08/2018 Status: COMPLETED Source: [place] 1:03 PM [facility] REPOSITORY HNO ID: [id number] Author: Aaliyah Stone Service: (none) Author Type: Physician Financial Operations Analyst Type: Progress Notes Filed: 11/08/2018 1:17 PM Note Text: [facility] [place], 11/08/18: HPI: The patient is here for follow up of COPD. The last Pulmonary Clinic visit was 10/11/18. History of mitral valve repair on 07/30/18, which was complicated by AFib. Today, patient states she feels less short of breath since cardioversion last week. Patient claims to be consistently compliant with prescribed maintenance Rx: Anoro 1 inhalation once daily. Variable use of rescue bronchodilator. Minimal cough. White sputum. No hemoptysis or pleuritic chest pain. No wheezing. No dyspnea at rest. Exertional dyspnea improved. No fevers or chills. Wearing 2 L supplemental oxygen at night. DME: [employer]. PMH: Updated with patient today. FAMH: Updated with patient today. SOCH: Updated with patient today. Immunization History Administered Date(s) Administered Influenza 07/17/2015 Influenza Seasonal - High Dose - Age 65+ 08/23/2013 08/18/2017 08/03/2018 Influenza Seasonal Inj Age 3+ 07/17/2015 Influenza Vaccine, Split-Non Spec 07/17/2012 Pneumococcal-13 Vac Conjugate 09/01/2015 Pneumovax 06/13/2010 TD Adult 11/02/1994 07/19/2012 ROS: General: Generally feels good. Appetite good. Weight stable. Eyes, Ears, nose, throat: No post nasal drip, rhinorrhea, purulent nasal discharge, epistaxis. No hoarseness. Vision stable. Cardiac: No angina, edema, orthopnea. GI: No heartburn, dysphagia, diarrhea. 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 Musculoskeletal: No pain. Neuro: No headache, focal weakness, tremor. Skin: No rash. Otherwise negative. Allergies were reviewed and updated, and medications were reconciled with the patient. PHYSICAL EXAMINATION: BP 122/62 Pulse 64 Resp 18 Wt 150 lb (68.0kg) SpO2 95% Gen: No acute distress. Cooperative with examination. ENT: Oral hygeine and dentition good. Pharynx clear. No halitosis. Resp: No stridor, accessory respiratory muscle use, supra- sternal or intercostal retractions. No wheezes, crackles. CV: Irregular rythm. Heart tones normal. Radial pulses normal. Abd: Non distended. MSK: No kyphoscoliosis. Ext: Warm and well perfused. No clubbing, cyanosis, edema. Skin: No rash, ecchymoses. Neuro: Mental status normal. Affect normal. No tremor. DATA REVIEW: DATE: 10/11/18 07/15/18 04/12/18 10/16/17 FVC 2.48 (90 % pred) 2.44 (88 % pred) 2.46 (84 % pred) 2.67?(90?% pred) FEV1 1.44 (70 % pred) 1.28 (62 % pred) 1.47 (67 % pred) 1.58?(71?% pred) FEV1/FVC 0.[address] chest, 09/14/18 IMPRESSION: Emphysema. ?Stable 4 mm right lung nodule. ?Atelectasis or fibrosis in the lingula. No developing suspicious mass or adenopathy in the chest. RESULT: Limitations: ?None. Lines, tubes, and devices: ?None. Lung parenchyma and pleura: Emphysema is again noted. ?4 mm right lower lobe nodule on image 57 is stable. ?Minimal atelectasis or fibrosis within the lingula is unchanged. ?No new significant collapse or consolidation. ?No developing lung nodule or mass. Thoracic inlet, heart, and mediastinum: ?No lymphadenopathy in the axillary, mediastinal, or hilar regions. ?No pericardial effusion or thickening. Bones and soft tissues: ?No destructive bone lesion. Chest wall is unremarkable. ?Mediastinal clips and wires are in place. Upper abdomen: ?Scans through the abdomen and pelvis are dictated Separately. IMPRESSION/RECOMMEND: COPD, moderate, stable. 1. Continue current maintenance Rx. Anoro Ellipta 1 inhalation once daily. 2. Continue Mucinex twice daily to assist with secretions. 3. Up to date on influenza and pneumonia vaccine. 4. Continue rescue inhaler as needed for relief of shortness of breath or wheezing, up to 4 times daily. 5. Re-assess as scheduled April 2019 , sooner if needed. AFib. 1. Recently cardioverted at [facility]. 2. Anticoagulation per cardiology. I addressed the questions of the patient, and she expressed understanding and acceptance of my answers. Aaliyah Stone PA-C [facility] [place] [facility] [address] [id number] CNOV Observed: 11/08/2018 Status: COMPLETED Source: [place] 1:00 PM [facility] REPOSITORY Office Visit (PULMWS) PRISCILLA SHARPE ([id number]) 1940 F Date Time Provider Department 11/08/18 1:00 PM AALIYAH STONE During your visit today, we recorded the following information about you: Pulse Respiration Blood pressure Weight 64/minute 18/minute 122/62 68 kg Aaliyah Stone PA-C 11/08/2018 1:17 PM Signed [facility] [place], 11/08/18: HPI: The patient is here for follow up of COPD. The last Pulmonary Clinic visit was 10/11/18. History of mitral valve repair on 07/30/18, which was complicated by AFib. Today, patient states she feels less short of breath since cardioversion last week. Patient claims to be consistently compliant with prescribed maintenance Rx: Anoro 1 inhalation once daily. Variable use of rescue bronchodilator. Minimal cough. White sputum. No hemoptysis or pleuritic chest pain. No wheezing. No dyspnea at rest. Exertional dyspnea improved. No fevers or chills. Wearing 2 L supplemental oxygen at night. DME: [employer]. PMH: Updated with patient today. FAMH: Updated with patient today. SOCH: Updated with patient today. Immunization History Administered Date(s) Administered Influenza 07/17/2015 Influenza Seasonal - High Dose - Age 65+ 08/23/2013 08/18/2017 08/03/2018 Influenza Seasonal Inj Age 3+ 07/17/2015 Influenza Vaccine, Split-Non Spec 07/17/2012 Pneumococcal-13 Vac Conjugate 09/01/2015 Pneumovax 06/13/2010 TD Adult 11/02/1994 07/19/2012 ROS: General: Generally feels good. Appetite good. Weight stable. Eyes, Ears, nose, throat: No post nasal drip, rhinorrhea, purulent nasal discharge, epistaxis. No hoarseness. Vision stable. Cardiac: No angina, edema, orthopnea. GI: No heartburn, dysphagia, diarrhea. 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 Musculoskeletal: No pain. Neuro: No headache, focal weakness, tremor. Skin: No rash. Otherwise negative. Allergies were reviewed and updated, and medications were reconciled with the patient. PHYSICAL EXAMINATION: BP 122/62 Pulse 64 Resp 18 Wt 150 lb (68.0kg) SpO2 95% Gen: No acute distress. Cooperative with examination. ENT: Oral hygeine and dentition good. Pharynx clear. No halitosis. Resp: No stridor, accessory respiratory muscle use, supra- sternal or intercostal retractions. No wheezes, crackles. CV: Irregular rythm. Heart tones normal. Radial pulses normal. Abd: Non distended. MSK: No kyphoscoliosis. Ext: Warm and well perfused. No clubbing, cyanosis, edema. Skin: No rash, ecchymoses. Neuro: Mental status normal. Affect normal. No tremor. DATA REVIEW: DATE: 10/11/18 07/15/18 04/12/18 10/16/17 FVC 2.48 (90 % pred) 2.44 (88 % pred) 2.46 (84 % pred) 2.67?(90?% pred) FEV1 1.44 (70 % pred) 1.28 (62 % pred) 1.47 (67 % pred) 1.58?(71?% pred) FEV1/FVC 0.[address] chest, 09/14/18 IMPRESSION: Emphysema. ?Stable 4 mm right lung nodule. ?Atelectasis or fibrosis in the lingula. No developing suspicious mass or adenopathy in the chest. RESULT: Limitations: ?None. Lines, tubes, and devices: ?None. Lung parenchyma and pleura: Emphysema is again noted. ?4 mm right lower lobe nodule on image 57 is stable. ?Minimal atelectasis or fibrosis within the lingula is unchanged. ?No new significant collapse or consolidation. ?No developing lung nodule or mass. Thoracic inlet, heart, and mediastinum: ?No lymphadenopathy in the axillary, mediastinal, or hilar regions. ?No pericardial effusion or thickening. Bones and soft tissues: ?No destructive bone lesion. Chest wall is unremarkable. ?Mediastinal clips and wires are in place. Upper abdomen: ?Scans through the abdomen and pelvis are dictated Separately. IMPRESSION/RECOMMEND: COPD, moderate, stable. 1. Continue current maintenance Rx. Anoro Ellipta 1 inhalation once daily. 2. Continue Mucinex twice daily to assist with secretions. 3. Up to date on influenza and pneumonia vaccine. 4. Continue rescue inhaler as needed for relief of shortness of breath or wheezing, up to 4 times daily. 5. Re-assess as scheduled April 2019 , sooner if needed. AFib. 1. Recently cardioverted at [facility]. 2. Anticoagulation per cardiology. I addressed the questions of the patient, and she expressed understanding and acceptance of my answers. Aaliyah Stone PA-C [facility] [place] [facility] [address] [id number] Aaliyah Stone PA-C 11/08/2018 1:16 PM Addendum COPD, moderate, stable. 1. Continue current maintenance Rx. Anoro Ellipta 1 inhalation once daily. 2. Continue Mucinex twice daily to assist with secretions. 3. Up to date on influenza and pneumonia vaccine. 4. Continue rescue inhaler as needed for relief of shortness of breath or wheezing, up to 4 times daily. 5. Re-assess as scheduled April 2019, sooner if needed. AFib. 1. Recently cardioverted at [facility]. 2. Anticoagulation per cardiology. Referring Provider: AALIYAH STONE [[id number]] Allergies As of Date: 11/08/2018 Noted Allergy Reaction ZYLOPRIM (ALLOPURINOL) 05/26/2017 2 - Rash environmental [Other] 12/30/2005 5 - Intolerance Comments: rhinitis TRAMADOL 03/10/2016 14 - Other: See Comments Comments: made patient woozy/dizzy Date Reviewed: 11/08/2018 Reviewed by: Inga Rodriguez LPN - Fully Assessed Reason for Visit: Established Patient [175] Cmt: 3 month follow up Primary Visit Diagnosis:Moderate COPD (chronic obstructive pulmonary disease) ([facility]) [J44.9] Other Visit Diagnosis:Atrial fibrillation, unspecified type ([facility]) [I48.91] Prescriptions as of 11/08/2018 Sig: AMIODARONE 200 MG TABLET Take 0.5 tablets by mouth onc* WARFARIN 2 MG TABLET Take 1 tablet by mouth daily * ATENOLOL 50 MG TABLET Take 0.5 tablets by mouth onc* FUROSEMIDE 40 MG TABLET Take 0.5 tablets by mouth onc* UMECLIDINIUM 62.5 MCG-VILANTE* Inhale one inhalation as inst* ALBUTEROL SULFATE HFA 90 MCG/* Inhale 2 Puffs as instructed * ACETAMINOPHEN 325 MG TABLET 1-2 tablets by ORAL/FEEDING T* THERAPEUTIC MULTIVITAMIN TABL* Take 1 tablet by mouth daily * ASPIRIN 81 MG CHEWABLE TABLET Take 1 tablet by mouth once d* PANTOPRAZOLE 20 MG TABLET,DEL* Take 1 tablet by mouth DAILY * POTASSIUM CHLORIDE ER 10 MEQ * Take 10 mEq by mouth once kodi* WARFARIN 2 MG TABLET Take 2 mg by mouth once daily. MAGNESIUM OXIDE 400 MG (241.3* Take 1 tablet by mouth once d* ALBUTEROL SULFATE CONCENTRATE* Inhale 0.5 mL as instructed o* ALBUTEROL SULFATE CONCENTRATE* Inhale 0.5 mL as instructed o* CHOLECALCIFEROL (VITAMIN D3) * Take 1 capsule by mouth once * PAROXETINE 10 MG TABLET Take 1 tablet by mouth once d* Medication notes this encounter AMIODARONE 200 MG TABLET >> Aaliyah Stone PA-C 11/08/2018 1:11 PM >> AALIYAH STONE Mon Nov 08, 2018 1:11 PM Has not taken for 2 days secondary to low heart rate. Problem List As Of Date 11/08/2018 Noted Resolved FX LATERAL MALLEOLUS-CLOSE [S82.63XA] INVALID FOR*09/05/2008 ELEV BL PRES W/O HYPERTN [R03.0] INVALID FOR*10/06/2008 Unspecified disorder of bladder [N32.9] INVALID FOR*08/03/2018 More... Impaired fasting glucose [R73.01] INVALID FOR*08/03/2018 Essential hypertension [I10] INVALID FOR* More... Osteoporosis [M81.0] INVALID FOR* More... Vitamin D deficiency [E55.9] INVALID FOR*08/03/2018 More... MR (mitral regurgitation) [I34.0] More... IBS (irritable bowel syndrome) [K58.9] 08/03/2018 More... 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 Afib (HCC) [I48.91] INVALID FOR* More... Pulmonary emphysema (HCC) [J43.9] INVALID FOR* Bone metastasis (HCC) [C79.51] INVALID FOR* More... 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 HOCM (hypertrophic obstructive cardiomyopathy) *INVALID FOR* More... Discharge planning issues [Z02.9] INVALID FOR* More... Preop testing [Z01.818] INVALID FOR*08/03/2018 More... Encounter for preoperative anesthesiology asses*INVALID FOR* Cardiac insufficiency (HCC) [I50.9] INVALID FOR*07/31/2018 More... On mechanically assisted ventilation (HCC) [Z99*INVALID FOR*07/31/2018 More... Postoperative pain [G89.18] INVALID FOR*08/03/2018 More... Stress hyperglycemia [R73.9] INVALID FOR*08/05/2018 More... Hypovolemia/fluctuating lacic acidosis [E86.1] INVALID FOR*08/02/2018 More... COPD (chronic obstructive pulmonary disease) (H*INVALID FOR* More... Anxiety [F41.9] INVALID FOR* More... Hypervolemia [E87.70] INVALID FOR*08/03/2018 More... RADHA (acute kidney injury) (HCC) [N17.9] INVALID FOR*08/05/2018 More... Transition of care performed with sharing of cl*INVALID FOR* More... S/P ventricular septal myectomy [Z98.890] INVALID FOR* Status post mitral valve repair [Z98.890] INVALID FOR* Other instructions from your clinician: COPD, moderate, stable. 1. Continue current maintenance Rx. Anoro Ellipta 1 inhalation once daily. 2. Continue Mucinex twice daily to assist with secretions. 3. Up to date on influenza and pneumonia vaccine. 4. Continue rescue inhaler as needed for relief of shortness of breath or wheezing, up to 4 times daily. 5. Re-assess as scheduled April 2019, sooner if needed. AFib. 1. Recently cardioverted at [facility]. 2. Anticoagulation per cardiology. Encounter Status:Closed by AALIYAH STONE on 11/08/18 PROGRESS Observed: 11/08/2018 Status: COMPLETED Source: [place] 11:38 AM [facility] REPOSITORY HNO ID: [id number] Author: Anand Mejía RN Service: (none) Author Type: (none) Type: Progress Notes Filed: 11/08/2018 11:38 AM Note Text: See phone note for instructions Anand Mejía RN PROGRESS Observed: 11/08/2018 Status: COMPLETED Source: [place] 11:38 AM [facility] REPOSITORY HNO ID: [id number] Author: Anand Mejía RN Service: (none) Author Type: (none) Type: Progress Notes Filed: 11/08/2018 11:38 AM Note Text: This note was created using Epic Sciencesriter. Subjective Priscilla Sharpe is a 78 year old female. Review of Systems Objective There were no vitals taken for this visit. Physical Exam Assessment and Plan PROGRESS Observed: 11/08/2018 Status: COMPLETED Source: [place] 11:00 AM [facility] REPOSITORY HNO ID: [id number] Author: Portia Theodore RN Service: (none) Author Type: (none) Type: Progress Notes Filed: 11/08/2018 11:02 AM Note Text: patient had inr completed at [facility] patients inr is 2.7 (patients inr range is 2.0-3.0) patient is currently taking 2mg-2mg-1mg cycle patients last dose change was on 10/14/18 due to a high level of 3.2 (dose at that time was 2mg alternating with 1mg) patient has had no changes in medication and no missed doses and no change in diet Question - is Dr Argueta going to be handling coumadin from now on or will it being going back over to Dr Pacheco now that conversion is done Advised patient that they would be contacted regarding medication dose and when to follow up after information is reviewed by provider. After provider review please contact the patient with information and schedule follow up appointment with coumadin clinic. 12 LEAD EKG PERFORMED Observed: 11/03/2018 Status: F Source: [place] [facility] 2:07 PM [facility] REPOSITORY [facility] [address] [place] [address] 12 Lead EKG performed by [facility] 11/03/18 1407 MR#: [id number] Acct: [id number] Name: PRISCILLA SHARPE Rep #: [id number] : 1940 78 From: Mart Souza MD Attending Dr: Mart Souza MD Status: DEP AMB Ordering Dr: Mart Souza MD Date: 11/03/18 Location: [facility] Sex: F C Admitted: [facility]/12 Lead EKG performed by [facility] Sinus Rhythm -First degree A-V block Pepper = 302-Left bundle branch block. Anteroseptal infarct -age undetermined. ABNORMAL 11/08/18 0644 <Electronically signed by Mart Souza MD> Date Mart Souza MD CC: Alisia Pacheco MD Date Dictated: 11/03/181406 Date Transcribed: 11/03/181406 Medical Billing Specialist: [place] Signed PROGRESS Observed: 10/29/2018 Status: COMPLETED Source: [place] 3:57 PM [facility] REPOSITORY HNO ID: [id number] Author: Anand Mejía RN Service: (none) Author Type: (none) Type: Progress Notes Filed: 10/29/2018 3:58 PM Note Text: See phone note for instructions Anand Mejía RN PROGRESS Observed: 10/29/2018 Status: COMPLETED Source: [place] 3:57 PM [facility] REPOSITORY HNO ID: [id number] Author: Anand Mejía RN Service: (none) Author Type: (none) Type: Progress Notes Filed: 10/29/2018 3:58 PM Note Text: This note was created using Epic Sciencesriter. Subjective Priscilla Sharpe is a 78 year old female. Review of Systems Objective There were no vitals taken for this visit. Physical Exam Assessment and Plan PROGRESS Observed: 10/29/2018 Status: COMPLETED Source: [place] 2:57 PM [facility] REPOSITORY HNO ID: [id number] Author: Portia Theodore RN Service: (none) Author Type: (none) Type: Progress Notes Filed: 10/29/2018 2:58 PM Note Text: patient had inr completed at [facility] patients inr is 2.6 (patients inr range is 2.0-3.0) patient is currently taking 2mg-2mg-1mg cycle patients last dose change was on 10/21/18 (see phone note) patient has had no changes in medication except for coumadin and no missed doses and no change in diet Advised patient that they would be contacted regarding medication dose and when to follow up after information is reviewed by provider. After provider review please contact the patient with information and schedule follow up appointment with coumadin clinic. OPERATIVE REPORT Observed: 10/20/2018 Status: F Source: [place] 2:29 PM [facility] REPOSITORY [facility] Medical Records Department [address] [place] [address] Operative Report 10/20/18 1426 MR#: [id number] Acct: [id number] Name: PRISCILLA SHARPE Rep #: [id number] : 1940 78 From: Winston Hannah DO PCP: Alisia Pacheco MD Status: [facility] Location: [facility] Operative Report Date of Procedure: 10/20/18 CONSCIOUS SEDATION REPORT DATE OF SERVICE: October 20, 2018 BRIEF HISTORY OF PRESENT ILLNESS: The patient is a 78-year-old female that presented to [facility] for elective outpatient cardioversion due to underlying atrial fibrillation. The patient does have a reported history of COPD, but denies a history of obstructive sleep apnea. She does currently utilize inhalers in her home environment. She denies a previous history of anesthetic complications. Her last surface echocardiogram revealed ejection fraction of approximately 65%. She is currently anticoagulated on Coumadin. PHYSICAL EXAMINATION: VITAL SIGNS: Reviewed and were acceptable. GENERAL: The patient is a female, in no apparent distress, speaking in full sentences. HEENT: Normocephalic, atraumatic. Mucous membranes are moist and pink. Good mouth opening noted. Trachea is midline. Good neck mobility. CHEST: S1, S2 irregularly irregular. No murmurs, rubs or gallops were noted. LUNGS: Clear to auscultation bilaterally without appreciable wheezes, rales or rhonchi. ABDOMEN: Soft, nontender, nondistended. Positive bowel sounds. EXTREMITIES: There is no clubbing, cyanosis or edema. ASA Class: II DESCRIPTION OF PROCEDURE: After confirmation of informed consent, the patient's anesthesia plan was reviewed in detail. Propofol was chosen. Risks and benefits were reviewed and the patient agreed to proceed. At 1238, the patient was given 40 mg of propofol. The patient achieved an appropriate level of sedation and was given a 200 joule synchronized cardioversion by Dr. William at the bedside. This was successful in achieving normal sinus rhythm. The patient was monitored until 1246, at which time she reached her baseline mental status and function. The patient tolerated the procedure well. COMPLICATIONS: None ESTIMATED BLOOD LOSS: None RECOMMENDATIONS: Okay to recover in usual fashion. Code Visit 9xxxx: Other Procedure See Report - [id number] 10/20/18 1429 <Electronically signed by Winston Hannah DO> Date Winston Hannah DO CC: Pato William MD; Winstno Hannah D.O.; Alisia Pacheco MD Signed OPERATIVE REPORT Observed: 10/20/2018 Status: F Source: [place] 1:09 PM [facility] REPOSITORY [facility] Medical Records Department [address] [place] [address] Operative Report 10/20/18 1307 MR#: [id number] Acct: [id number] Name: PRISCILLA SHARPE Rep #: [id number] : 1940 78 From: Pato William MD PCP: Alisia Pacheco MD Status: [facility] Y Location: [facility] Problem List (1) Atrial fibrillation Status: Chronic Operative Report Date of Procedure: 10/20/18 DC cardioversion: Patient is a 78-year-old patient of Dr. Gonzales, with a history of hypertension, paroxysmal atrial fibrillation/flutter, idiopathic hypertrophic subaortic stenosis, status post myectomy procedure, who was referred for DC cardioversion. Patient has been on Coumadin and therapeutic for the past 4 weeks, and was recently loaded with amiodarone. The patient was brought to the [employer] in the fasting state. The risks/benefits of the procedure were thoroughly explained the patient and informed consent was obtained. With the assistance of Dr. Winston Hannah the patient received 40 mill grams of IV propofol. Once adequate sedation was obtained the patient received a single synchronized biphasic shock at 200 J which converted from atrial flutter to normal sinus rhythm with first-degree AV block and left bundle branch block. Her left bundle branch block was seen previous on her EKG. The patient spontaneously awoke, moves all 4 extremities and tolerated the procedure well. Conclusions: Successful Coumadin and amiodarone assisted DC cardioversion with a single 200 J biphasic synchronized shock converting her to sinus rhythm with first-degree AV block and left bundle branch block. Patient will continue current medication therapy, and follow-up with Dr. Kemp going forward. No complications. 10/20/18 1309 <Electronically signed by Pato William MD> Date Pato William MD CC: Pato William MD; Alisia Pacheco MD Signed PROTIME W/INR Collected: 10/20/2018 Status: F Source: [place] 11:13 AM [facility] REPOSITORY TYPE CODE TESTS RESULT OUT OF REFERENCE UNITS RANGE LAB L9200.1001 11.9-14.4 SEC High PROTIME ISTAT 23.2 Result Comment: Reference Range 11.9 - 14.4 LAB L9200.2000 Normal INR ISTAT 2.00 Result Comment: Critical Value > 3.5 Performed By: #### L9200.0000 #### [facility] Point of Care [address] [place] [address] PROGRESS Observed: 10/14/2018 Status: COMPLETED Source: [place] 11:35 AM [facility] REPOSITORY HNO ID: [id number] Author: Anand Mejía RN Service: (none) Author Type: (none) Type: Progress Notes Filed: 10/14/2018 11:35 AM Note Text: See phone note for instructions Anand Mejía RN PROGRESS Observed: 10/14/2018 Status: COMPLETED Source: [place] 11:35 AM [facility] REPOSITORY HNO ID: [id number] Author: Anand Mejía RN Service: (none) Author Type: (none) Type: Progress Notes Filed: 10/14/2018 11:35 AM Note Text: This note was created using Epic Sciencesriter. Subjective Priscilla Sharpe is a 78 year old female. Review of Systems Objective There were no vitals taken for this visit. Physical Exam Assessment and Plan PROGRESS Observed: 10/14/2018 Status: COMPLETED Source: [place] 11:29 AM [facility] REPOSITORY HNO ID: [id number] Author: Portia Theodore RN Service: (none) Author Type: (none) Type: Progress Notes Filed: 10/14/2018 11:31 AM Note Text: patient had inr completed at [facility] patients inr is 3.2 (patients inr range is 2.0-3.0) patient is currently taking 2mg alternating with 1mg patients last dose change was on 10/07/18 due to providers choice (level was 2.3 and dose at that time was 1mg-1mg-2mg cycle) patient has had no changes in medication except for coumadin and no missed doses and no change in diet FYI - per patient inr results are to go to Dr Argueta until cardio procedure next week Advised patient that they would be contacted regarding medication dose and when to follow up after information is reviewed by provider. After provider review please contact the patient with information and schedule follow up appointment with coumadin clinic. EKG1 Observed: 10/11/2018 Status: F Source: [place] 2:29 PM [facility] REPOSITORY NAME : PRISCILLA SHARPE PID : [id number] : 1940 Gender : Female Race : ORD : Procedure Date : Oct 11 2018 14:29:27 Edit Date : Oct 12 2018 16:33:08 Diagnosis:ATRIAL FLUTTER COMPLETE LEFT BUNDLE BRANCH BLOCK NON-SPECIFIC ST AND T WAVE CHANGES ABNORMAL ECG NO SIGNIFICANT CHANGE FROM PREVIOUS ECG Confirmed by BRANDON ARGUETA MD ([id number]) on 10/12/2018 4:33:00 PM Ventricular Rate : 103 BPM Atrial Rate : 97 BPM P-R Interval : 152 ms QRS Duration : 166 ms Q-T Interval : 404 ms QTC Calculation(Bezet) : 529 ms R Friendship : -4 degrees T Friendship : 180 degrees Test Reason : Location : 136 : [place] Overread By : BRANDON ARGUETA MD Edited By : BRANDON ARGUETA MD Referred By : KENDALL, Acquired by : , BASIC METABOLIC PANL Collected: 10/11/2018 Status: F Source: [place] 2:23 PM [facility] REPOSITORY TYPE CODE TESTS RESULT OUT OF REFERENCE UNITS RANGE LAB GLU 74-99 mg/dL Glucose High 112 LAB BUN 7-21 mg/dL BUN High 27 LAB CRET 0.58-0.96 mg/dL Creatinine 0.94 LAB NA 136-144 mmol/L Sodium 137 LAB K 3.7-5.1 mmol/L Potassium 3.7 LAB CL 97-105 mmol/L Chloride 101 LAB CO2 22-30 mmol/L CO2 25 LAB AGAP mmol/L Anion Gap 11 LAB CA 8.5-10.2 mg/dL Calcium, Total 9.4 LAB GFRAA eGFR- >60 Amer. LAB GFRNAA . eGFR-All Other Races 57 Result Comment: eGFR (Estimated GFR) Units of measure: mL/min/1.73 meters squared eGFR is derived from the reexpressed MDRD Study equation using the following parameters: serum creatinine, age, gender and race. The creatinine assay has been calibrated to be traceable to IDMS. An eGFR <60 mL/min/1.73m2 for >3 months is consistent with chronic kidney disease. Refer to KDOQI guidelines for clinical interpretation. In patients with unstable renal function, e.g. those with acute kidney injury, the eGFR may not accurately reflect actual GFR. CBC Collected: 10/11/2018 Status: F Source: [place] 2:23 PM [facility] REPOSITORY TYPE CODE TESTS RESULT OUT OF REFERENCE UNITS RANGE LAB WBC 3.70-11.00 k/uL WBC High 11.61 LAB RBC 3.90-5.20 m/uL RBC High 5.93 LAB HGB 11.5-15.5 g/dL Hemoglobin 13.0 LAB HCT 36.0-46.0 % Hematocrit 44.2 LAB MCV 80.0-100.0 fL Low MCV 74.5 LAB MCH 26.0-34.0 pG Low MCH 21.9 LAB MCHC 30.5-36.0 g/dL Low MCHC 29.4 LAB RDWCV 11.5-15.0 % RDW-CV High 19.8 LAB PLTCT 150-400 k/uL Platelet Count 302 LAB MPV 9.0-12.7 fL MPV 9.7 LAB ABSNUC <0.01 k/uL Absolute nRBC <0.01 Performed By: #### CBC #### [facility] [address] [place], [place] [address] PROGRESS Observed: 10/11/2018 Status: COMPLETED Source: [place] 1:43 PM [facility] REPOSITORY HNO ID: [id number] Author: Brandon Argueta Service: (none) Author Type: Physician Type: Progress Notes Filed: 10/12/2018 8:21 AM Note Text: PERTINENT CARDIAC HISTORY PAF - cardioversion 05/18, 10/18, PVI, Atricure 07/20 HCM - myectomy 07/20 HTN HL - declines statin MVP with mitral insufficiency - severe, 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) 07/20 CHF - diastolic Long QT LBBB ADHERENCE TO GUIDELINES CIERRA-I or ARB for HF with prior LVEF<40 (NQF 0081) - N/A ASA or Plavix for ASHD (NQF 0067) - N/A Beta jhon for ASHD with prior RI or prior LVEF<40 (NQF 0070) - N/A Beta jhon for HF with prior LVEF<40 (NQF 0083) - N/A CIERRA-I or ARB for ASHD with DM or prior LVEF<40 (NQF 0066) - N/A Statin therapy for ASHD or FHL or DM - declines BMI documented and plan if >25 (NQF 0421) - lifestyle recommendation form Tobacco use screening and referral (NQF 0028) - lifestyle recommendation form Recommendation for whole food, plant based diet - lifestyle recommendation form CLINICAL IMPRESSION/PLAN: Priscilla Sharpe has persistent atrial tachycardia. She recently underwent PVI and atricure. She's been therapeutically anticoagulated for sufficient amount of time. She would like to return to sinus rhythm. She may not need long-term antiarrhythmic therapy, but will probably need short-term support from an agent to maintain sinus rhythm. She had tolerated amiodarone well prior to surgery. She will restart amiodarone at 200 milligrams twice daily for 1 week, then 200 milligrams once daily. INR will be checked later this week. She will have basic profile and CBC in anticipation of cardioversion, which we will arrange at [facility] in the near future. For better rate control, she will restart atenolol 25 milligrams in addition to the amiodarone. I've asked her to update me with vital signs later this week. Follow-up will be arranged pending the outcome of the cardioversion. Written and verbal health teaching given to patient, patient verbalizes understanding and agrees with treatment plan. DIAGNOSIS FOR VISIT: Atrial fibrillation Hypertrophic myopathy Hypertension HISTORY OF PRESENT ILLNESS Priscilla Sharpe returns for follow-up of her persistent atrial fibrillation. She has been therapeutically anticoagulated now for a month and would like to proceed with cardioversion. She presents to the office today for further discussion. She has been aware of an irregular heart rhythm. She's had no chest discomfort. Exercise tolerance has been gradually improving. She's had no episodes of sudden shortness of breath. She has had minimal edema. She denies syncope, TIAs, amaurosis and claudication. ALLERGIES: ALLERGIES Allergen Reactions - Zyloprim [Allopurin* Rash - Environmental [Othe* Intolerance rhinitis - Tramadol Other: See Comments made patient woozy/dizzy CURRENT OUTPATIENT MEDICATIONS: umeclidinium-vilanterol (ANORO ELLIPTA) 62.5-25 mcg/actuation inhaler Inhale one inhalation as instructed once daily albuterol HFA (VENTOLIN HFA) 90 mcg/actuation inhaler Inhale 2 Puffs as instructed every 4 hours as needed for Wheezing/Shortness of Breath. acetaminophen (TYLENOL) 325 mg tablet 1-2 tablets by ORAL/FEEDING TUBE route every 4 hours as needed for Pain (for mild to moderate pain). therapeutic multivitamin (THERA VITAMIN) tablet Take 1 tablet by mouth daily with breakfast. aspirin 81 mg chewable tablet Take 1 tablet by mouth once daily. pantoprazole DR (PROTONIX) 20 mg tablet Take 1 tablet by mouth DAILY (6 AM). PARoxetine (PAXIL) 10 mg tablet Take 1 tablet by mouth once daily. potassium chloride (K-TAB) 10 mEq tablet Take 10 mEq by mouth once daily. warfarin (COUMADIN) 2 mg tablet Take 2 mg by mouth once daily. furosemide (LASIX) 40 mg tablet Take 1 tablet by mouth once daily. magnesium oxide (MAGOX) 400 mg tablet Take 1 tablet by mouth once daily. albuterol (PROVENTIL) 5 mg/mL nebu Inhale 0.5 mL as instructed one time only for 1 dose. 1 DOSE NOW - BACK OFFICE. PLACE 0.5 ML PER DROPPER AND 2.5 ML OF NORMAL SALINE INTO RESERVOIR. albuterol (PROVENTIL) 5 mg/mL nebu Inhale 0.5 mL as instructed one time only for 1 dose. 1 DOSE NOW - BACK OFFICE. PLACE 0.5 ML PER DROPPER AND 2.5 ML OF NORMAL SALINE INTO RESERVOIR. Cholecalciferol, Vitamin D3, 1,000 unit cap Take 1 capsule by mouth once daily. 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 Social History Main Topics Smoking status: Former Smoker Packs/day: 1.00 Years: 58.00 Types: Cigarettes Start date: 1955 Quit date: 07/02/2013 Smokeless tobacco: Never Used Comment: No smoking in childhood home. Spouse quit smoking years before patient did. Alcohol use: Yes Comment: occasional Drug use: No Sexual activity: No Social History Narrative of skin cancer 2000. Child of 7-10 diagnosed with shadow on my lungs, Spent a month on [place], It was healed. Left with scar on lungs. Had BCG inoculation. 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 REVIEW OF SYSTEMS: General: No chills, fever, weight loss, night sweats. Respiratory: No productive cough. Cardiac: As noted above. GI: No melena. : No dysuria. Musculoskeletal: No myalgias. PHYSICAL EXAMINATION: S/he is alert and in no distress. VITAL SIGNS: BP 140/92 Pulse 110 Resp 16 SHEENT: Skin is warm and dry. No xanthelasmas appreciated. Pharynx is benign. There is no oral cyanosis. Neck: supple. No adenopathy or thyroid enlargement. Chest: Clear to auscultation. Sternotomy is well-healed. Trachea is midline. Air entry is equal. There is no chest wall tenderness. Cardiac: Regular rhythm. S1 and S2 are normal. PMI is nondisplaced. There is a soft systolic ejection murmur. There is no mitral insufficiency murmur. No click is heard. Carotids are brisk without bruits. JVP is less than 10 cm. Abdomen: Soft and nontender. There are no pulsatile masses or bruits. No liver enlargement. Bowel sounds are active. Extremities: Trace edema. Pulses are intact and symmetrical. No clubbing or cyanosis. No femoral bruits. Neurologic: Grossly normal motor and sensory. S/he is alert and oriented x4. EKG shows atrial flutter with rapid response. Left bundle branch block persists. INR has been therapeutic for a month. Electronically Signed: Brandon Argueta MD October 11, 2018 1:43 PM CC:Alisia Pacheco MD CNNURSE Observed: 10/11/2018 Status: COMPLETED Source: [place] 1:30 PM [facility] REPOSITORY Nurse Visit (CAWSTR) PRISCILLA SHARPE ([id number]) 1940 F Date Time Provider Department 10/11/18 1:30 PM BRANDON ARGUETA CAWSTR During your visit today, we recorded the following information about you: Pulse Respiration Blood pressure 110/minute 16/minute 140/92 Yemi Dent MA 10/11/2018 1:38 PM Signed EKG completed and given to Dr Argueta for review. Yemi Argueta MD 10/12/2018 8:21 AM Addendum PERTINENT CARDIAC HISTORY PAF - cardioversion 05/18, 10/18, PVI, Atricure 07/20 HCM - myectomy 07/20 HTN HL - declines statin MVP with mitral insufficiency - severe, 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) 07/20 CHF - diastolic Long QT LBBB ADHERENCE TO GUIDELINES CIERRA-I or ARB for HF with prior LVEF<40 (NQF 0081) - N/A ASA or Plavix for ASHD (NQF 0067) - N/A Beta jhon for ASHD with prior RI or prior LVEF<40 (NQF 0070) - N/A Beta jhon for HF with prior LVEF<40 (NQF 0083) - N/A CIERRA-I or ARB for ASHD with DM or prior LVEF<40 (NQF 0066) - N/A Statin therapy for ASHD or FHL or DM - declines BMI documented and plan if >25 (NQF 0421) - lifestyle recommendation form Tobacco use screening and referral (NQF 0028) - lifestyle recommendation form Recommendation for whole food, plant based diet - lifestyle recommendation form CLINICAL IMPRESSION/PLAN: Priscilla Sharpe has persistent atrial tachycardia. She recently underwent PVI and atricure. She's been therapeutically anticoagulated for sufficient amount of time. She would like to return to sinus rhythm. She may not need long-term antiarrhythmic therapy, but will probably need short-term support from an agent to maintain sinus rhythm. She had tolerated amiodarone well prior to surgery. She will restart amiodarone at 200 milligrams twice daily for 1 week, then 200 milligrams once daily. INR will be checked later this week. She will have basic profile and CBC in anticipation of cardioversion, which we will arrange at [facility] in the near future. For better rate control, she will restart atenolol 25 milligrams in addition to the amiodarone. I've asked her to update me with vital signs later this week. Follow-up will be arranged pending the outcome of the cardioversion. Written and verbal health teaching given to patient, patient verbalizes understanding and agrees with treatment plan. DIAGNOSIS FOR VISIT: Atrial fibrillation Hypertrophic myopathy Hypertension HISTORY OF PRESENT ILLNESS Priscilla Sharpe returns for follow-up of her persistent atrial fibrillation. She has been therapeutically anticoagulated now for a month and would like to proceed with cardioversion. She presents to the office today for further discussion. She has been aware of an irregular heart rhythm. She's had no chest discomfort. Exercise tolerance has been gradually improving. She's had no episodes of sudden shortness of breath. She has had minimal edema. She denies syncope, TIAs, amaurosis and claudication. ALLERGIES: ALLERGIES Allergen Reactions - Zyloprim [Allopurin* Rash - Environmental [Othe* Intolerance rhinitis - Tramadol Other: See Comments made patient woozy/dizzy CURRENT OUTPATIENT MEDICATIONS: umeclidinium-vilanterol (ANORO ELLIPTA) 62.5-25 mcg/actuation inhaler Inhale one inhalation as instructed once daily albuterol HFA (VENTOLIN HFA) 90 mcg/actuation inhaler Inhale 2 Puffs as instructed every 4 hours as needed for Wheezing/Shortness of Breath. acetaminophen (TYLENOL) 325 mg tablet 1-2 tablets by ORAL/FEEDING TUBE route every 4 hours as needed for Pain (for mild to moderate pain). therapeutic multivitamin (THERA VITAMIN) tablet Take 1 tablet by mouth daily with breakfast. aspirin 81 mg chewable tablet Take 1 tablet by mouth once daily. pantoprazole DR (PROTONIX) 20 mg tablet Take 1 tablet by mouth DAILY (6 AM). PARoxetine (PAXIL) 10 mg tablet Take 1 tablet by mouth once daily. potassium chloride (K-TAB) 10 mEq tablet Take 10 mEq by mouth once daily. warfarin (COUMADIN) 2 mg tablet Take 2 mg by mouth once daily. furosemide (LASIX) 40 mg tablet Take 1 tablet by mouth once daily. magnesium oxide (MAGOX) 400 mg tablet Take 1 tablet by mouth once daily. albuterol (PROVENTIL) 5 mg/mL nebu Inhale 0.5 mL as instructed one time only for 1 dose. 1 DOSE NOW - BACK OFFICE. PLACE 0.5 ML PER DROPPER AND 2.5 ML OF NORMAL SALINE INTO RESERVOIR. albuterol (PROVENTIL) 5 mg/mL nebu Inhale 0.5 mL as instructed one time only for 1 dose. 1 DOSE NOW - BACK OFFICE. PLACE 0.5 ML PER DROPPER AND 2.5 ML OF NORMAL SALINE INTO RESERVOIR. Cholecalciferol, Vitamin D3, 1,000 unit cap Take 1 capsule by mouth once daily. 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 Social History Main Topics Smoking status: Former Smoker Packs/day: 1.00 Years: 58.00 Types: Cigarettes Start date: 1955 Quit date: 07/02/2013 Smokeless tobacco: Never Used Comment: No smoking in childhood home. Spouse quit smoking years before patient did. Alcohol use: Yes Comment: occasional Drug use: No Sexual activity: No Social History Narrative of skin cancer 2000. Child of 7-10 diagnosed with shadow on my lungs, Spent a month on [place], It was healed. Left with scar on lungs. Had BCG inoculation. 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 REVIEW OF SYSTEMS: General: No chills, fever, weight loss, night sweats. Respiratory: No productive cough. Cardiac: As noted above. GI: No melena. : No dysuria. Musculoskeletal: No myalgias. PHYSICAL EXAMINATION: S/he is alert and in no distress. VITAL SIGNS: BP 140/92 Pulse 110 Resp 16 SHEENT: Skin is warm and dry. No xanthelasmas appreciated. Pharynx is benign. There is no oral cyanosis. Neck: supple. No adenopathy or thyroid enlargement. Chest: Clear to auscultation. Sternotomy is well-healed. Trachea is midline. Air entry is equal. There is no chest wall tenderness. Cardiac: Regular rhythm. S1 and S2 are normal. PMI is nondisplaced. There is a soft systolic ejection murmur. There is no mitral insufficiency murmur. No click is heard. Carotids are brisk without bruits. JVP is less than 10 cm. Abdomen: Soft and nontender. There are no pulsatile masses or bruits. No liver enlargement. Bowel sounds are active. Extremities: Trace edema. Pulses are intact and symmetrical. No clubbing or cyanosis. No femoral bruits. Neurologic: Grossly normal motor and sensory. S/he is alert and oriented x4. EKG shows atrial flutter with rapid response. Left bundle branch block persists. INR has been therapeutic for a month. Electronically Signed: Brandon Argueta MD October 11, 2018 1:43 PM CC:MD Brandon Hernandez MD 10/11/2018 1:52 PM Signed Restart atenolol 50 mg one-half tablet daily Restart amiodarone 200 mg twice a day for one week, then 200 mg daily Have INR done this week Brandon Argueta MD 10/11/2018 1:53 PM Signed Addended by: BRANDON ARGUETA MD on: 10/11/2018 01:53 PM Modules accepted: Orders Referring Provider: BRANDON ARGUETA [[id number]] Allergies As of Date: 10/11/2018 Noted Allergy Reaction ZYLOPRIM (ALLOPURINOL) 05/26/2017 2 - Rash environmental [Other] 12/30/2005 5 - Intolerance Comments: rhinitis TRAMADOL 03/10/2016 14 - Other: See Comments Comments: made patient woozy/dizzy Date Reviewed: 10/11/2018 Reviewed by: Aaliyah Stone - Fully Assessed Reason for Visit: Allied Health Visit [5] Primary Visit Diagnosis:Atypical atrial flutter (HCC) [I48.4] Other Visit Diagnosis:PAF (paroxysmal atrial fibrillation) (HCC) [I48.0] Order(s):ECG COMPLETE W INTERPRETATION [ECG01] Order #: [id number] CBC [SQCBC] Order #: [id number] FUTURE BASIC METABOLIC PNL [SQBMP] Order #: [id number] FUTURE amiodarone (PACERONE) 200 mg tabletTake 200 mg twice a day for one week, then 200 mg dailyDisp: 90 tabletRfl: 3 atenolol (TENORMIN) 50 mg tabletTake 0.5 tablets by mouth once daily.Disp: 90 tabletRfl: 3 Prescriptions as of 10/11/2018 Sig: ACETAMINOPHEN 325 MG TABLET 1-2 tablets by ORAL/FEEDING T* ALBUTEROL SULFATE CONCENTRATE* Inhale 0.5 mL as instructed o* ALBUTEROL SULFATE CONCENTRATE* Inhale 0.5 mL as instructed o* ALBUTEROL SULFATE HFA 90 MCG/* Inhale 2 Puffs as instructed * AMIODARONE 200 MG TABLET Take 200 mg twice a day for o* ASPIRIN 81 MG CHEWABLE TABLET Take 1 tablet by mouth once d* ATENOLOL 50 MG TABLET Take 0.5 tablets by mouth onc* CHOLECALCIFEROL (VITAMIN D3) * Take 1 capsule by mouth once * FUROSEMIDE 40 MG TABLET Take 1 tablet by mouth once d* MAGNESIUM OXIDE 400 MG (241.3* Take 1 tablet by mouth once d* PANTOPRAZOLE 20 MG TABLET,DEL* Take 1 tablet by mouth DAILY * PAROXETINE 10 MG TABLET Take 1 tablet by mouth once d* POTASSIUM CHLORIDE ER 10 MEQ * Take 10 mEq by mouth once kodi* THERAPEUTIC MULTIVITAMIN TABL* Take 1 tablet by mouth daily * UMECLIDINIUM 62.5 MCG-VILANTE* Inhale one inhalation as inst* WARFARIN 2 MG TABLET Take 2 mg by mouth once daily. Problem List As Of Date 10/11/2018 Noted Resolved FX LATERAL MALLEOLUS-CLOSE [S82.63XA] INVALID FOR*09/05/2008 ELEV BL PRES W/O HYPERTN [R03.0] INVALID FOR*10/06/2008 Unspecified disorder of bladder [N32.9] INVALID FOR*08/03/2018 More... Impaired fasting glucose [R73.01] INVALID FOR*08/03/2018 Essential hypertension [I10] INVALID FOR* More... Osteoporosis [M81.0] INVALID FOR* More... Vitamin D deficiency [E55.9] INVALID FOR*08/03/2018 More... MR (mitral regurgitation) [I34.0] More... IBS (irritable bowel syndrome) [K58.9] 08/03/2018 More... 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 Afib (HCC) [I48.91] INVALID FOR* More... Pulmonary emphysema (HCC) [J43.9] INVALID FOR* Bone metastasis (HCC) [C79.51] INVALID FOR* More... 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 HOCM (hypertrophic obstructive cardiomyopathy) *INVALID FOR* More... Discharge planning issues [Z02.9] INVALID FOR* More... Preop testing [Z01.818] INVALID FOR*08/03/2018 More... Encounter for preoperative anesthesiology asses*INVALID FOR* Cardiac insufficiency (HCC) [I50.9] INVALID FOR*07/31/2018 More... On mechanically assisted ventilation (HCC) [Z99*INVALID FOR*07/31/2018 More... Postoperative pain [G89.18] INVALID FOR*08/03/2018 More... Stress hyperglycemia [R73.9] INVALID FOR*08/05/2018 More... Hypovolemia/fluctuating lacic acidosis [E86.1] INVALID FOR*08/02/2018 More... COPD (chronic obstructive pulmonary disease) (H*INVALID FOR* More... Anxiety [F41.9] INVALID FOR* More... Hypervolemia [E87.70] INVALID FOR*08/03/2018 More... RADHA (acute kidney injury) (HCC) [N17.9] INVALID FOR*08/05/2018 More... Transition of care performed with sharing of cl*INVALID FOR* More... S/P ventricular septal myectomy [Z98.890] INVALID FOR* Status post mitral valve repair [Z98.890] INVALID FOR* Other instructions from your clinician: Restart atenolol 50 mg one-half tablet daily Restart amiodarone 200 mg twice a day for one week, then 200 mg daily Have INR done this week Visit Notes: >> Yemi Dent MA ThuOct 11, 2018 1:37 PM Status: Signed EKG completed and given to Dr Argueta for review. Yemi Rafiq DORINA Prescriptions ordered this encounter Disp Refills Start End AMIODARONE 200 MG TABLET 90 t* 3 10/11/2018 Sig: Take 200 mg twice a day for one week, then 200 mg daily ATENOLOL 50 MG TABLET 90 t* 3 10/11/2018 Class: Med Update Route: ORAL Sig: Take 0.5 tablets by mouth once daily. Encounter Status:Closed by RAFIQ YEMI CAM on 10/11/18 PROGRESS Observed: 10/11/2018 Status: COMPLETED Source: [place] 1:01 PM [facility] [place] REPOSITORY HNO ID: [id number] Author: Aaliyah Stone Service: (none) Author Type: Physician Financial Operations Analyst Type: Progress Notes Filed: 10/11/2018 1:21 PM Note Text: [facility] [place], 10/11/18: HPI: The patient is here for follow up of COPD. The last Pulmonary Clinic visit was 09/13/18. Patient recently had mitral valve repair on 07/30/18, which was complicated by AFib. Today, patient claims to be consistently compliant with prescribed maintenance Rx: Anoro 1 inhalation once daily. Occasional use of rescue bronchodilator. Minimal cough. No hemoptysis or pleuritic chest pain. No wheezing. No dyspnea at rest. Exertional dyspnea has not changed. No fevers or chills. Wearing 2 L supplemental oxygen at night. DME: [employer]. PMH: Updated with patient today. FAMH: Updated with patient today. SOCH: Updated with patient today. Immunization History Administered Date(s) Administered Influenza 07/17/2015 Influenza Seasonal - High Dose - Age 65+ 08/23/2013 08/18/2017 08/03/2018 Influenza Seasonal Inj Age 3+ 07/17/2015 Influenza Vaccine, Split-Non Spec 07/17/2012 Pneumococcal-13 Vac Conjugate 09/01/2015 Pneumovax 06/13/2010 TD Adult 11/02/1994 07/19/2012 ROS: General: Generally feels fair. Appetite good. Weight stable. Eyes, Ears, nose, throat: No post nasal drip, rhinorrhea, purulent nasal discharge, epistaxis. No hoarseness. Vision stable. Cardiac: No angina, edema, orthopnea. GI: No heartburn, dysphagia, diarrhea. 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 Musculoskeletal: No pain. Neuro: No headache, focal weakness, tremor. Skin: No rash. Otherwise negative. Allergies were reviewed and updated, and medications were reconciled with the patient. PHYSICAL EXAMINATION: BP 118/68 Pulse 110 Resp 17 SpO2 96% Gen: No acute distress. Cooperative with examination. ENT: Oral hygeine and dentition good. Pharynx clear. No halitosis. Resp: No stridor, accessory respiratory muscle use, supra- sternal or intercostal retractions. No wheezes, crackles. CV: Irregular rythm. Heart tones normal. Radial pulses normal. Abd: Non distended. MSK: No kyphoscoliosis. Ext: Warm and well perfused. No clubbing, cyanosis, edema. Skin: No rash, ecchymoses. Neuro: Mental status normal. Affect normal. No tremor. DATA REVIEW: DATE: 10/11/18 07/15/18 04/12/18 10/16/17 FVC 2.48 (90 % pred) 2.44 (88 % pred) 2.46 (84 % pred) 2.67?(90?% pred) FEV1 1.44 (70 % pred) 1.28 (62 % pred) 1.47 (67 % pred) 1.58?(71?% pred) FEV1/FVC 0.[address] chest, 09/14/18 IMPRESSION: Emphysema. ?Stable 4 mm right lung nodule. ?Atelectasis or fibrosis in the lingula. No developing suspicious mass or adenopathy in the chest. RESULT: Limitations: ?None. Lines, tubes, and devices: ?None. Lung parenchyma and pleura: Emphysema is again noted. ?4 mm right lower lobe nodule on image 57 is stable. ?Minimal atelectasis or fibrosis within the lingula is unchanged. ?No new significant collapse or consolidation. ?No developing lung nodule or mass. Thoracic inlet, heart, and mediastinum: ?No lymphadenopathy in the axillary, mediastinal, or hilar regions. ?No pericardial effusion or thickening. Bones and soft tissues: ?No destructive bone lesion. Chest wall is unremarkable. ?Mediastinal clips and wires are in place. Upper abdomen: ?Scans through the abdomen and pelvis are dictated Separately. IMPRESSION/RECOMMEND: COPD, moderate, symptomatically improved today with increased FEV1. 1. Continue current maintenance Rx. Anoro Ellipta 1 inhalation once daily. 2. Continue Mucinex twice daily to assist with secretions. 3. Up to date on influenza and pneumonia vaccine. 4. Continue rescue inhaler as needed for relief of shortness of breath or wheezing, up to 4 times daily. 5. Re-assess in 6 months, sooner if needed. Patient reports financial hardship with obtaining medications. Sent message to Jesika Means, [employer], to assist. AFib. 1. Patient has appointment scheduled today with cardiology. I addressed the questions of the patient, and she expressed understanding and acceptance of my answers. Aaliyah Stone PA-C [address] [phone] CNOV Observed: 10/11/2018 Status: COMPLETED Source: [place] 1:00 PM [facility] [place] REPOSITORY Office Visit (PULMWS) PRISCILLA SHARPE ([id number]) 1940 F Date Time Provider Department 10/11/18 1:00 PM AALIYAH STONE PULMWS During your visit today, we recorded the following information about you: Pulse Respiration Blood pressure 110/minute 17/minute 118/68 Aaliyah Stone PA-C 10/11/2018 1:[address] [facility], 10/11/18: HPI: The patient is here for follow up of COPD. The last Pulmonary Clinic visit was 09/13/18. Patient recently had mitral valve repair on 07/30/18, which was complicated by AFib. Today, patient claims to be consistently compliant with prescribed maintenance Rx: Anoro 1 inhalation once daily. Occasional use of rescue bronchodilator. Minimal cough. No hemoptysis or pleuritic chest pain. No wheezing. No dyspnea at rest. Exertional dyspnea has not changed. No fevers or chills. Wearing 2 L supplemental oxygen at night. DME: [employer]. PMH: Updated with patient today. FAMH: Updated with patient today. SOCH: Updated with patient today. Immunization History Administered Date(s) Administered Influenza 07/17/2015 Influenza Seasonal - High Dose - Age 65+ 08/23/2013 08/18/2017 08/03/2018 Influenza Seasonal Inj Age 3+ 07/17/2015 Influenza Vaccine, Split-Non Spec 07/17/2012 Pneumococcal-13 Vac Conjugate 09/01/2015 Pneumovax 06/13/2010 TD Adult 11/02/1994 07/19/2012 ROS: General: Generally feels fair. Appetite good. Weight stable. Eyes, Ears, nose, throat: No post nasal drip, rhinorrhea, purulent nasal discharge, epistaxis. No hoarseness. Vision stable. Cardiac: No angina, edema, orthopnea. GI: No heartburn, dysphagia, diarrhea. 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 Musculoskeletal: No pain. Neuro: No headache, focal weakness, tremor. Skin: No rash. Otherwise negative. Allergies were reviewed and updated, and medications were reconciled with the patient. PHYSICAL EXAMINATION: BP 118/68 Pulse 110 Resp 17 SpO2 96% Gen: No acute distress. Cooperative with examination. ENT: Oral hygeine and dentition good. Pharynx clear. No halitosis. Resp: No stridor, accessory respiratory muscle use, supra- sternal or intercostal retractions. No wheezes, crackles. CV: Irregular rythm. Heart tones normal. Radial pulses normal. Abd: Non distended. MSK: No kyphoscoliosis. Ext: Warm and well perfused. No clubbing, cyanosis, edema. Skin: No rash, ecchymoses. Neuro: Mental status normal. Affect normal. No tremor. DATA REVIEW: DATE: 10/11/18 07/15/18 04/12/18 10/16/17 FVC 2.48 (90 % pred) 2.44 (88 % pred) 2.46 (84 % pred) 2.67?(90?% pred) FEV1 1.44 (70 % pred) 1.28 (62 % pred) 1.47 (67 % pred) 1.58?(71?% pred) FEV1/FVC 0.[address] chest, 09/14/18 IMPRESSION: Emphysema. ?Stable 4 mm right lung nodule. ?Atelectasis or fibrosis in the lingula. No developing suspicious mass or adenopathy in the chest. RESULT: Limitations: ?None. Lines, tubes, and devices: ?None. Lung parenchyma and pleura: Emphysema is again noted. ?4 mm right lower lobe nodule on image 57 is stable. ?Minimal atelectasis or fibrosis within the lingula is unchanged. ?No new significant collapse or consolidation. ?No developing lung nodule or mass. Thoracic inlet, heart, and mediastinum: ?No lymphadenopathy in the axillary, mediastinal, or hilar regions. ?No pericardial effusion or thickening. Bones and soft tissues: ?No destructive bone lesion. Chest wall is unremarkable. ?Mediastinal clips and wires are in place. Upper abdomen: ?Scans through the abdomen and pelvis are dictated Separately. IMPRESSION/RECOMMEND: COPD, moderate, symptomatically improved today with increased FEV1. 1. Continue current maintenance Rx. Anoro Ellipta 1 inhalation once daily. 2. Continue Mucinex twice daily to assist with secretions. 3. Up to date on influenza and pneumonia vaccine. 4. Continue rescue inhaler as needed for relief of shortness of breath or wheezing, up to 4 times daily. 5. Re-assess in 6 months, sooner if needed. Patient reports financial hardship with obtaining medications. Sent message to Jesika Means, [employer], to assist. AFib. 1. Patient has appointment scheduled today with cardiology. I addressed the questions of the patient, and she expressed understanding and acceptance of my answers. Aaliyah Stone PA-C [facility] [place] [facility] [address] [place] [address] Inga Rodriguez LPN 10/11/2018 1:07 PM Signed Intake information documented in the prior visit with Yari Iglesias, METAL MODEL MAKER today. Aaliyah Stone PA-C 10/11/2018 1:21 PM Signed COPD, moderate, symptomatically improved today with increased FEV1. 1. Continue current maintenance Rx. Anoro Ellipta 1 inhalation once daily. 2. Continue Mucinex twice daily to assist with secretions. 3. Up to date on influenza and pneumonia vaccine. 4. Continue rescue inhaler as needed for relief of shortness of breath or wheezing, up to 4 times daily. 5. Re-assess in 6 months, sooner if needed. AFib. 1. Patient has appointment scheduled today with cardiology. Referring Provider: AALIYAH STONE [[id number]] Allergies As of Date: 10/11/2018 Noted Allergy Reaction ZYLOPRIM (ALLOPURINOL) 05/26/2017 2 - Rash environmental [Other] 12/30/2005 5 - Intolerance Comments: rhinitis TRAMADOL 03/10/2016 14 - Other: See Comments Comments: made patient woozy/dizzy Date Reviewed: 10/11/2018 Reviewed by: Aaliyah Stone - Fully Assessed Reason for Visit: Established Patient [175] Cmt: COPD Visit Diagnosis:Pulmonary emphysema, unspecified emphysema type (HCC) [J43.9] Order(s):umeclidinium-vilanterol (ANORO ELLIPTA) 62.5-25 mcg/actuation inhalerInhale one inhalation as instructed once dailyDisp: 60 EachRfl: 5 Prescriptions as of 10/11/2018 Sig: UMECLIDINIUM 62.5 MCG-VILANTE* Inhale one inhalation as inst* ALBUTEROL SULFATE HFA 90 MCG/* Inhale 2 Puffs as instructed * ACETAMINOPHEN 325 MG TABLET 1-2 tablets by ORAL/FEEDING T* THERAPEUTIC MULTIVITAMIN TABL* Take 1 tablet by mouth daily * ASPIRIN 81 MG CHEWABLE TABLET Take 1 tablet by mouth once d* PANTOPRAZOLE 20 MG TABLET,DEL* Take 1 tablet by mouth DAILY * PAROXETINE 10 MG TABLET Take 1 tablet by mouth once d* POTASSIUM CHLORIDE ER 10 MEQ * Take 10 mEq by mouth once kodi* WARFARIN 2 MG TABLET Take 2 mg by mouth once daily. FUROSEMIDE 40 MG TABLET Take 1 tablet by mouth once d* MAGNESIUM OXIDE 400 MG (241.3* Take 1 tablet by mouth once d* ALBUTEROL SULFATE CONCENTRATE* Inhale 0.5 mL as instructed o* ALBUTEROL SULFATE CONCENTRATE* Inhale 0.5 mL as instructed o* CHOLECALCIFEROL (VITAMIN D3) * Take 1 capsule by mouth once * Problem List As Of Date 10/11/2018 Noted Resolved FX LATERAL MALLEOLUS-CLOSE [S82.63XA] INVALID FOR*09/05/2008 ELEV BL PRES W/O HYPERTN [R03.0] INVALID FOR*10/06/2008 Unspecified disorder of bladder [N32.9] INVALID FOR*08/03/2018 More... Impaired fasting glucose [R73.01] INVALID FOR*08/03/2018 Essential hypertension [I10] INVALID FOR* More... Osteoporosis [M81.0] INVALID FOR* More... Vitamin D deficiency [E55.9] INVALID FOR*08/03/2018 More... MR (mitral regurgitation) [I34.0] More... IBS (irritable bowel syndrome) [K58.9] 08/03/2018 More... 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 Afib (HCC) [I48.91] INVALID FOR* More... Pulmonary emphysema (HCC) [J43.9] INVALID FOR* Bone metastasis (HCC) [C79.51] INVALID FOR* More... 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 HOCM (hypertrophic obstructive cardiomyopathy) *INVALID FOR* More... Discharge planning issues [Z02.9] INVALID FOR* More... Preop testing [Z01.818] INVALID FOR*08/03/2018 More... Encounter for preoperative anesthesiology asses*INVALID FOR* Cardiac insufficiency (HCC) [I50.9] INVALID FOR*07/31/2018 More... On mechanically assisted ventilation (HCC) [Z99*INVALID FOR*07/31/2018 More... Postoperative pain [G89.18] INVALID FOR*08/03/2018 More... Stress hyperglycemia [R73.9] INVALID FOR*08/05/2018 More... Hypovolemia/fluctuating lacic acidosis [E86.1] INVALID FOR*08/02/2018 More... COPD (chronic obstructive pulmonary disease) (H*INVALID FOR* More... Anxiety [F41.9] INVALID FOR* More... Hypervolemia [E87.70] INVALID FOR*08/03/2018 More... RADHA (acute kidney injury) (HCC) [N17.9] INVALID FOR*08/05/2018 More... Transition of care performed with sharing of cl*INVALID FOR* More... S/P ventricular septal myectomy [Z98.890] INVALID FOR* Status post mitral valve repair [Z98.890] INVALID FOR* Other instructions from your clinician: COPD, moderate, symptomatically improved today with increased FEV1. 1. Continue current maintenance Rx. Anoro Ellipta 1 inhalation once daily. 2. Continue Mucinex twice daily to assist with secretions. 3. Up to date on influenza and pneumonia vaccine. 4. Continue rescue inhaler as needed for relief of shortness of breath or wheezing, up to 4 times daily. 5. Re-assess in 6 months, sooner if needed. AFib. 1. Patient has appointment scheduled today with cardiology. Visit Notes: >> Inga Rodriguez WENDI Mon Oct 11, 2018 1:06 PM Status: Signed Intake information documented in the prior visit with Yari Iglesias CRT today. Prescriptions ordered this encounter Disp Refills Start End UMECLIDINIUM 62.5 MCG-VILANTEROL 25 * 60 E* 5 10/11/2018 Sig: Inhale one inhalation as instructed once daily Medications Discontinued During This Encounter umeclidinium-vilanterol (ANORO ELLIP* 60 E* 5 04/12/2018 10/11/2018 Sig: Inhale one inhalation as instructed once daily Disc: Reason for discontinue is not on file. Disposition: Return in about 6 months (around 04/11/2019). Follow-up and Disposition History Recorded Encounter Status:Closed by AALIYAH STONE on 10/11/18 PROGRESS Observed: 10/07/2018 Status: COMPLETED Source: [place] 2:10 PM [facility] REPOSITORY HNO ID: [id number] Author: Anand Mejía RN Service: (none) Author Type: (none) Type: Progress Notes Filed: 10/07/2018 2:11 PM Note Text: See phone note for instructions Anand Mejía RN PROGRESS Observed: 10/07/2018 Status: COMPLETED Source: [place] 2:10 PM [facility] REPOSITORY HNO ID: [id number] Author: Anand Mejía RN Service: (none) Author Type: (none) Type: Progress Notes Filed: 10/07/2018 2:11 PM Note Text: This note was created using Epic Sciencesriter. Subjective Priscilla Sharpe is a 78 year old female. Review of Systems Objective There were no vitals taken for this visit. Physical Exam Assessment and Plan PROGRESS Observed: 10/07/2018 Status: COMPLETED Source: [place] 1:55 PM [facility] REPOSITORY HNO ID: [id number] Author: Portia Theodore RN Service: (none) Author Type: (none) Type: Progress Notes Filed: 10/07/2018 1:57 PM Note Text: patient had inr completed at [facility] patients inr is 2.3 (patients inr range is 2.0-3.0) patient is currently taking 1mg-1mg-2mg cycle patients last dose change was on 09/02/18 due to a high level of 3.4 (dose at that time was 1mg alternating with 2mg) patient has had a change in medication and pt is on prednisone for 3 more days, and no missed doses and no change in diet FYI - patient states that Dr Argueta is handling coumadin again until cardioversion Advised patient that they would be contacted regarding medication dose and when to follow up after information is reviewed by provider. After provider review please contact the patient with information and schedule follow up appointment with coumadin clinic. CHARO Observed: 10/07/2018 Status: COMPLETED Source: [place] 12:00 AM [facility] REPOSITORY Telephone (CAWSTR) JAMEPRISCILLA CHONG ([id number]) 1940 F Date Time Provider Department 10/07/18 BRANDON ARGUETA CAWSTR During your visit today, we recorded the following information about you: Anand Mejía RN 10/07/2018 2:10 PM Signed Portia Theodore RN Signed Portia Theodore RN 10/07/2018 ?1:57 PM patient had inr completed at [facility] patients inr is 2.3 (patients inr range is 2.0-3.0) patient is currently taking 1mg-1mg-2mg cycle patients last dose change was on 09/02/18 due to a high level of 3.4 (dose at that time was 1mg alternating with 2mg) patient has had a change in medication and pt is on prednisone for 3 more days, and no missed doses and no change in diet ? ? FYI - patient states that Dr Argueta is handling coumadin again until cardioversion ? Advised patient that they would be contacted regarding medication dose and when to follow up after information is reviewed by provider. After provider review please contact the patient with information and schedule follow up appointment with coumadin clinic. Called pt, verified she is taking 1-1-2 Anand Mejía RN 10/07/2018 4:05 PM Signed Pt called, verified by name and birthdate. Pt wanted to know if coumadin instructions were ready for her. Informed pt they are not done by Dr. Argueta and that we will call her when they are ready. Pt verbalized understanding Anand Argueta MD 10/07/2018 4:46 PM Signed 2 alternating 1. Recheck one week. She has been therapeutically anticoagulated now long enough that we can consider cardioversion. Please have her come in for EKG to make sure she is still in atrial fibrillation and ask her if she is interested in cardioversion. MD Yemi Cruz MA 10/07/2018 4:54 PM Signed Patient notified of results and provider's instructions. Patient verbalizes understanding. Yemi Dent MA 10/08/2018 11:33 AM Signed Addended by: YEMI DENT MA on: 10/08/2018 11:33 AM Modules accepted: Orders Brandon Argueta MD 10/08/2018 11:44 AM Signed Addended by: BRANDON ARGUETA MD on: 10/08/2018 11:44 AM Modules accepted: Orders Allergies As of Date: 10/07/2018 Noted Allergy Reaction ZYLOPRIM (ALLOPURINOL) 05/26/2017 2 - Rash environmental [Other] 12/30/2005 5 - Intolerance Comments: rhinitis TRAMADOL 03/10/2016 14 - Other: See Comments Comments: made patient woozy/dizzy Date Reviewed: 09/27/2018 Reviewed by: Ludmila Saunders LPN - Fully Assessed Reason for Visit: Anticoagulation [8] Primary Visit Diagnosis:PAF (paroxysmal atrial fibrillation) ([facility]) [I48.0] Order(s):ECG COMPLETE W INTERPRETATION [ECG01] Order #: [id number] FUTURE Prescriptions as of 10/07/2018 Sig: ALBUTEROL SULFATE HFA 90 MCG/* Inhale 2 Puffs as instructed * ACETAMINOPHEN 325 MG TABLET 1-2 tablets by ORAL/FEEDING T* THERAPEUTIC MULTIVITAMIN TABL* Take 1 tablet by mouth daily * ASPIRIN 81 MG CHEWABLE TABLET Take 1 tablet by mouth once d* PANTOPRAZOLE 20 MG TABLET,DEL* Take 1 tablet by mouth DAILY * Patient not taking: Reported on 09/16/2018 PAROXETINE 10 MG TABLET Take 1 tablet by mouth once d* Patient not taking: Reported on 09/16/2018 POTASSIUM CHLORIDE ER 10 MEQ * Take 10 mEq by mouth once kodi* UMECLIDINIUM 62.5 MCG-VILANTE* Inhale one inhalation as inst* WARFARIN 2 MG TABLET Take 2 mg by mouth once daily. FUROSEMIDE 40 MG TABLET Take 1 tablet by mouth once d* MAGNESIUM OXIDE 400 MG (241.3* Take 1 tablet by mouth once d* ALBUTEROL SULFATE CONCENTRATE* Inhale 0.5 mL as instructed o* ALBUTEROL SULFATE CONCENTRATE* Inhale 0.5 mL as instructed o* CHOLECALCIFEROL (VITAMIN D3) * Take 1 capsule by mouth once * Problem List As Of Date 10/07/2018 Noted Resolved FX LATERAL MALLEOLUS-CLOSE [S82.63XA] INVALID FOR*09/05/2008 ELEV BL PRES W/O HYPERTN [R03.0] INVALID FOR*10/06/2008 Unspecified disorder of bladder [N32.9] INVALID FOR*08/03/2018 More... Impaired fasting glucose [R73.01] INVALID FOR*08/03/2018 Essential hypertension [I10] INVALID FOR* More... Osteoporosis [M81.0] INVALID FOR* More... Vitamin D deficiency [E55.9] INVALID FOR*08/03/2018 More... MR (mitral regurgitation) [I34.0] More... IBS (irritable bowel syndrome) [K58.9] 08/03/2018 More... 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 Afib (HCC) [I48.91] INVALID FOR* More... Pulmonary emphysema (HCC) [J43.9] INVALID FOR* Bone metastasis (HCC) [C79.51] INVALID FOR* More... 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 HOCM (hypertrophic obstructive cardiomyopathy) *INVALID FOR* More... Discharge planning issues [Z02.9] INVALID FOR* More... Preop testing [Z01.818] INVALID FOR*08/03/2018 More... Encounter for preoperative anesthesiology asses*INVALID FOR* Cardiac insufficiency (HCC) [I50.9] INVALID FOR*07/31/2018 More... On mechanically assisted ventilation (HCC) [Z99*INVALID FOR*07/31/2018 More... Postoperative pain [G89.18] INVALID FOR*08/03/2018 More... Stress hyperglycemia [R73.9] INVALID FOR*08/05/2018 More... Hypovolemia/fluctuating lacic acidosis [E86.1] INVALID FOR*08/02/2018 More... COPD (chronic obstructive pulmonary disease) (H*INVALID FOR* More... Anxiety [F41.9] INVALID FOR* More... Hypervolemia [E87.70] INVALID FOR*08/03/2018 More... RADHA (acute kidney injury) (HCC) [N17.9] INVALID FOR*08/05/2018 More... Transition of care performed with sharing of cl*INVALID FOR* More... S/P ventricular septal myectomy [Z98.890] INVALID FOR* Status post mitral valve repair [Z98.890] INVALID FOR* Encounter Status:Closed by YEMI DENT MA on 10/07/18 PROGRESS Observed: 09/29/2018 Status: COMPLETED Source: [place] 3:33 PM [facility] REPOSITORY HNO ID: [id number] Author: Yemi Dent MA Service: (none) Author Type: (none) Type: Progress Notes Filed: 09/29/2018 3:33 PM Note Text: Please see phone note. Yemi Rafiq CAM PROGRESS Observed: 09/29/2018 Status: COMPLETED Source: [place] 3:26 PM [facility] REPOSITORY HNO ID: [id number] Author: Kimberly Atkins RN Service: (none) Author Type: (none) Type: Progress Notes Filed: 09/29/2018 3:29 PM Note Text: Per Dr. Pacheco: agree with below and send to Dr. Argueta for further review. Please advise and notify patient of dose or appointment changes. Thank you! PROGRESS Observed: 09/29/2018 Status: COMPLETED Source: [place] 2:23 PM [facility] REPOSITORY HNO ID: [id number] Author: Kimberly Atkins RN Service: (none) Author Type: (none) Type: Progress Notes Filed: 09/29/2018 2:24 PM Note Text: Patient had INR completed at [facility] Patient's INR is 2.6 Patient is currently taking 1mg-1mg-2mg cycle Patient's last dose change was 09/02/18 due to high INR at 3.4 Patient has had no medication and no change in diet. Advised patient to continue on same dose and they would only be contacted with different instructions after provider review. Written instructions were given to patient and patient verbalized understanding. Presently, patient has been scheduled for 10/06/18 for INR follow up. PT D/C SUMMARY (1) Observed: 09/29/2018 Status: F Source: [place] 12:08 PM [facility] REPOSITORY [facility] [address] [place] [address] Fax REHABILITATION SERVICES DISCHARGE SUMMARY MR#: [id number] Acct: [id number] Name: PRISCILLA SHARPE Rep #: [id number] : 1940 78 From: Cert. JUNAID Isabel PT, OCS Referring Dr.: Can Smith MD Status: REG RCR Insurance: [employer] PL[employer] HMO SELF PAY INSURANCE HP - PT D/C Summary It has been my pleasure to treat PRISCILLA SHARPE under orders from Can Smith, for the diagnosis of COPD,CHF for a total of 7 visit(s). Discharge Date: 09/27/18 Please see the following information for a summary of their discharge status. - Subjective Subjective: Doing well no problems at home ..becomes SOB. Doing ADL'S - Pain Bilateral Shoulder Pain Intensity (Out of 10): 0 - Overall Improvement % Improvement: 80 - Objective Objective/Function: POSTURE: WNL. GAIT: NORMAL EMMY. MMT: quads/hams /hip 4/5. BALANCE : good - Goals Goal 1:: Independant with HEP Goal Progress: Goal Met Goal 2:: Patient to be Indepoendant with posture for ADLS Goal Progress: Goal Met Goal 3:: Patient improve functional endurance for activity to good - with min SOB with activity . Goal Progress: Goal Met Goal 4:: Patient be able to perform ADL'S and function with min limitations. Goal Progress: Goal Met Goal 5:: Patient to improve LFES score by 10-15 points to improve QOL Goal Progress: Goal Met - Plan Plan: D/C - D/C Information If there are questions or concerns regarding this patient's physical therapy, please feel free to call me at [phone]. Thank you for the referral of this patient. Sincerely, Mani Serrano PT, <Electronically signed by Mani Serrano PT, Cert. JUNAID, OCS> 09/29/18 1205 CC: Alisia Pacheco MD; Can Smith MD JERI Signed PROGRESS Observed: 09/27/2018 Status: COMPLETED Source: [place] 2:53 PM [facility] RE[facility] HNO ID: [id number] Author: Alisia Pacheco Service: (none) Author Type: Physician Type: Progress Notes Filed: 10/13/2018 7:38 AM Note Text: Patient presents with: Recheck: Follow up SUBJECTIVE: Priscilla Sharpe is a 78 year old year old lady here today for 6 month follow up appointment for review of medical conditions. Still in a fib. INR managed by Dr. Argueta. Not needing atenolol for BP or heart rate. Reviewed Dr. Argueta's note--plans for cardioversion if INR stays therapeutic if still in A fib at next appointment. Still getting over COPD exacerbation. Finished PT. 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 Monson follows for benign tumor removed 2002 - Unspecified essential hypertension 10/06/2008 Current Outpatient Prescriptions: predniSONE (DELTASONE) 10 mg tablet 4 tablets daily for 3 days, 3 tablets daily for 3 days, 2 tablets daily for 3 days, 1 tablets daily for 3 days. acetaminophen (TYLENOL) 325 mg tablet 1-2 tablets by ORAL/FEEDING TUBE route every 4 hours as needed for Pain (for mild to moderate pain). therapeutic multivitamin (THERA VITAMIN) tablet Take 1 tablet by mouth daily with breakfast. aspirin 81 mg chewable tablet Take 1 tablet by mouth once daily. potassium chloride (K-TAB) 10 mEq tablet Take 10 mEq by mouth once daily. umeclidinium-vilanterol (ANORO ELLIPTA) 62.5-25 mcg/actuation inhaler Inhale one inhalation as instructed once daily warfarin (COUMADIN) 2 mg tablet Take 2 mg by mouth once daily. furosemide (LASIX) 40 mg tablet Take 1 tablet by mouth once daily. magnesium oxide (MAGOX) 400 mg tablet Take 1 tablet by mouth once daily. albuterol HFA (VENTOLIN HFA) 90 mcg/actuation inhaler Inhale 2 Puffs as instructed every 4 hours as needed for Wheezing/Shortness of Breath. Cholecalciferol, Vitamin D3, 1,000 unit cap Take 1 capsule by mouth once daily. pantoprazole DR (PROTONIX) 20 mg tablet Take 1 tablet by mouth DAILY (6 AM). (Patient not taking: Reported on 09/16/2018 ) PARoxetine (PAXIL) 10 mg tablet Take 1 tablet by mouth once daily. (Patient not taking: Reported on 09/16/2018 ) No current facility-administered medications for this visit. OBJECTIVE: BP 130/64 Pulse 72 Resp 20 Wt 68.9 kg (152 lb) BMI 25.29 kg/m? Patient is alert, oriented times 3, no apparent distress, affect is bright, reactive. Last 5 Encounter BP Readings: Date: BP: 09/27/2018 130/64 09/16/2018 150/86 09/13/2018 126/62 09/10/2018 112/84 08/27/2018 114/68 Last 5 Encounter Wt Readings: Date: Wt: 09/27/2018 68.9 kg (152 lb) 09/16/2018 68 kg (150 lb) 09/13/2018 68.5 kg (151 lb) 09/10/2018 68.5 kg (151 lb) 08/27/2018 67.1 kg (148 lb) 09/27/18 1449 09/27/18 1531 BP: 130/64 126/52 Pulse: 72 Resp: 20 Weight: 68.9 kg (152 lb) Heart: Irregularly irregular rate, rhythm, no murmurs, gallops, rubs. Lungs: Clear to auscultation, bilaterally, breathing non labored. Ext: No cyanosis, clubbing, or edema. Component Latest Ref Rng AND Units 09/14/2018 WBC, [place] 3.70 - 11.00 k/uL 8.43 RBC, [place] 3.90 - 5.20 m/uL 5.65 (H) Hemoglobin, [place] 11.5 - 15.5 g/dL 12.9 Hematocrit, [place] 36.0 - 46.0 % 41.9 MCV, [place] 80.0 - 100.0 fL 74.2 (L) MCH, [place] 26.0 - 34.0 pg 22.8 (L) MCHC, [place] 30.5 - 36.0 g/dL 30.8 RDW, [place] 11.5 - 15.0 % 18.9 (H) Platelet Cnt, Bryan 150 - 400 k/uL 327 MPV, [place] 9.0 - 12.7 fL 9.6 Absol Gran Count 1.45 - 7.50 k/uL 5.66 Glucose 74 - 99 mg/dL 130 (H) BUN 7 - 21 mg/dL 16 Creatinine 0.58 - 0.96 mg/dL 0.99 (H) Sodium 136 - 144 mmol/L 139 Potassium 3.7 - 5.1 mmol/L 3.5 (L) Chloride 97 - 105 mmol/L 102 CO2 22 - 30 mmol/L 25 Anion Gap mmol/L 12 Calcium 8.5 - 10.2 mg/dL 9.7 eGFR- >60 eGFR-All Other Races . 54 MPA IgG, Serum 717 - 1,411 mg/dL 714 (L) MPA IgA, Serum 78 - 391 mg/dL 258 MPA IgM, Serum 53 - 334 mg/dL 107 [place] Free, Serum 3.30 - 19.40 mg/L 21.5 (H) Lambda Free, Serum 5.7 - 26.3 mg/L 17.8 K/L Ratio, Serum 0.26 - 1.65 1.21 MPA Result No M protein is identified. No M protein is identified. Staff Review (MPA) Reviewed by Panda Mar M.D. ([id number]) Albumin 3.9 - 4.9 g/dL 4.3 Bilirubin, Total 0.2 - 1.3 mg/dL 0.4 Bilirubin, Conjug <0.2 mg/dL <0.2 Alkaline Phosphatase 34 - 123 U/L 119 AST 13 - 35 U/L 15 ALT 7 - 38 U/L 8 Protein, Total 6.3 - 8.0 g/dL 7.2 Hemoglobin A1C 4.3 - 5.6 % 5.7 (H) Estimated Average Glucose mg/dL 117 LD 135 - 214 U/L 228 (H) ASSESSMENT AND PLAN: Encounter Diagnosis ICD-10-CM 1. Essential hypertension I10 2. Persistent atrial fibrillation (HCC) I48.1 3. Chronic obstructive pulmonary disease with acute exacerbation (HCC) J44.1 4. LEMONS (dyspnea on exertion) R06.09 5. S/P ventricular septal myectomy Z98.890 6. 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 Just using O2 overnight. Not needing during the day. Anoro expensive but using now. Albuterol for prn use given. Also follow up with Dr. Argueta (Cardiology)--will see about cardioversion, etc. Not needing atenolol now. BP and HR okay. Consider cardic rehab. Continues to follow up with Dr. Martinez too. Doing okay from this standpoint. In remission per most recent progress note. Above issues addressed with patient. Patient involved in shared decision making for management of medical issues. History and medications reviewed. Epic updated as needed Refills taken care of and meds adjusted as indicated after reviewed history, exam and labs. Health Maintenance reviewed. Updated record and/or ordered tests as recorded. Encouraged on efforts at healthy diet and regular exercise and adequate sleep. The majority of the visit was spent counseling and/or coordinating care for the patient. [id number]-[id number] time was at least 25 minutes. Alisia Pacheco MD CNOV Observed: 09/27/2018 Status: COMPLETED Source: [place] 2:20 PM [facility] REPOSITORY Office Visit (INTMWS) PRISCILLA SHARPE ([id number]) 1940 F Date Time Provider Department 09/27/18 2:20 PM ALISIA PACHECO INTMWS During your visit today, we recorded the following information about you: Pulse Respiration Blood pressure Weight 72/minute 20/minute 126/52 68.9 kg Alisia Pacheco MD 10/13/2018 7:38 AM Signed Patient presents with: Recheck: Follow up SUBJECTIVE: Priscilla Sharpe is a 78 year old year old lady here today for 6 month follow up appointment for review of medical conditions. Still in a fib. INR managed by Dr. Argueta. Not needing atenolol for BP or heart rate. Reviewed Dr. Argueta's note--plans for cardioversion if INR stays therapeutic if still in A fib at next appointment. Still getting over COPD exacerbation. Finished PT. 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 Monson follows for benign tumor removed 2002 - Unspecified essential hypertension 10/06/2008 Current Outpatient Prescriptions: predniSONE (DELTASONE) 10 mg tablet 4 tablets daily for 3 days, 3 tablets daily for 3 days, 2 tablets daily for 3 days, 1 tablets daily for 3 days. acetaminophen (TYLENOL) 325 mg tablet 1-2 tablets by ORAL/FEEDING TUBE route every 4 hours as needed for Pain (for mild to moderate pain). therapeutic multivitamin (THERA VITAMIN) tablet Take 1 tablet by mouth daily with breakfast. aspirin 81 mg chewable tablet Take 1 tablet by mouth once daily. potassium chloride (K-TAB) 10 mEq tablet Take 10 mEq by mouth once daily. umeclidinium-vilanterol (ANORO ELLIPTA) 62.5-25 mcg/actuation inhaler Inhale one inhalation as instructed once daily warfarin (COUMADIN) 2 mg tablet Take 2 mg by mouth once daily. furosemide (LASIX) 40 mg tablet Take 1 tablet by mouth once daily. magnesium oxide (MAGOX) 400 mg tablet Take 1 tablet by mouth once daily. albuterol HFA (VENTOLIN HFA) 90 mcg/actuation inhaler Inhale 2 Puffs as instructed every 4 hours as needed for Wheezing/Shortness of Breath. Cholecalciferol, Vitamin D3, 1,000 unit cap Take 1 capsule by mouth once daily. pantoprazole DR (PROTONIX) 20 mg tablet Take 1 tablet by mouth DAILY (6 AM). (Patient not taking: Reported on 09/16/2018 ) PARoxetine (PAXIL) 10 mg tablet Take 1 tablet by mouth once daily. (Patient not taking: Reported on 09/16/2018 ) No current facility-administered medications for this visit. OBJECTIVE: BP 130/64 Pulse 72 Resp 20 Wt 68.9 kg (152 lb) BMI 25.29 kg/m? Patient is alert, oriented times 3, no apparent distress, affect is bright, reactive. Last 5 Encounter BP Readings: Date: BP: 09/27/2018 130/64 09/16/2018 150/86 09/13/2018 126/62 09/10/2018 112/84 08/27/2018 114/68 Last 5 Encounter Wt Readings: Date: Wt: 09/27/2018 68.9 kg (152 lb) 09/16/2018 68 kg (150 lb) 09/13/2018 68.5 kg (151 lb) 09/10/2018 68.5 kg (151 lb) 08/27/2018 67.1 kg (148 lb) 09/27/18 1449 09/27/18 1531 BP: 130/64 126/52 Pulse: 72 Resp: 20 Weight: 68.9 kg (152 lb) Heart: Irregularly irregular rate, rhythm, no murmurs, gallops, rubs. Lungs: Clear to auscultation, bilaterally, breathing non labored. Ext: No cyanosis, clubbing, or edema. Component Latest Ref Rng AND Units 09/14/2018 WBC, [place] 3.70 - 11.00 k/uL 8.43 RBC, [place] 3.90 - 5.20 m/uL 5.65 (H) Hemoglobin, [place] 11.5 - 15.5 g/dL 12.9 Hematocrit, [place] 36.0 - 46.0 % 41.9 MCV, [place] 80.0 - 100.0 fL 74.2 (L) MCH, [place] 26.0 - 34.0 pg 22.8 (L) MCHC, [place] 30.5 - 36.0 g/dL 30.8 RDW, [place] 11.5 - 15.0 % 18.9 (H) Platelet Cnt, [place] 150 - 400 k/uL 327 MPV, [place] 9.0 - 12.7 fL 9.6 Absol Gran Count 1.45 - 7.50 k/uL 5.66 Glucose 74 - 99 mg/dL 130 (H) BUN 7 - 21 mg/dL 16 Creatinine 0.58 - 0.96 mg/dL 0.99 (H) Sodium 136 - 144 mmol/L 139 Potassium 3.7 - 5.1 mmol/L 3.5 (L) Chloride 97 - 105 mmol/L 102 CO2 22 - 30 mmol/L 25 Anion Gap mmol/L 12 Calcium 8.5 - 10.2 mg/dL 9.7 eGFR- >60 eGFR-All Other Races . 54 MPA IgG, Serum 717 - 1,411 mg/dL 714 (L) MPA IgA, Serum 78 - 391 mg/dL 258 MPA IgM, Serum 53 - 334 mg/dL 107 [place] Free, Serum 3.30 - 19.40 mg/L 21.5 (H) Lambda Free, Serum 5.7 - 26.3 mg/L 17.8 K/L Ratio, Serum 0.26 - 1.65 1.21 MPA Result No M protein is identified. No M protein is identified. Staff Review (MPA) Reviewed by Panda Mar M.D. ([id number]) Albumin 3.9 - 4.9 g/dL 4.3 Bilirubin, Total 0.2 - 1.3 mg/dL 0.4 Bilirubin, Conjug <0.2 mg/dL <0.2 Alkaline Phosphatase 34 - 123 U/L 119 AST 13 - 35 U/L 15 ALT 7 - 38 U/L 8 Protein, Total 6.3 - 8.0 g/dL 7.2 Hemoglobin A1C 4.3 - 5.6 % 5.7 (H) Estimated Average Glucose mg/dL 117 LD 135 - 214 U/L 228 (H) ASSESSMENT AND PLAN: Encounter Diagnosis ICD-10-CM 1. Essential hypertension I10 2. Persistent atrial fibrillation (HCC) I48.1 3. Chronic obstructive pulmonary disease with acute exacerbation (HCC) J44.1 4. LEMONS (dyspnea on exertion) R06.09 5. S/P ventricular septal myectomy Z98.890 6. 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 Just using O2 overnight. Not needing during the day. Anoro expensive but using now. Albuterol for prn use given. Also follow up with Dr. Argueta (Cardiology)--will see about cardioversion, etc. Not needing atenolol now. BP and HR okay. Consider cardic rehab. Continues to follow up with Dr. Martinez too. Doing okay from this standpoint. In remission per most recent progress note. Above issues addressed with patient. Patient involved in shared decision making for management of medical issues. History and medications reviewed. Epic updated as needed Refills taken care of and meds adjusted as indicated after reviewed history, exam and labs. Health Maintenance reviewed. Updated record and/or ordered tests as recorded. Encouraged on efforts at healthy diet and regular exercise and adequate sleep. The majority of the visit was spent counseling and/or coordinating care for the patient. [id number] time was at least 25 minutes. Alisia Pacheco MD Referring Provider: ALISIA PACHECO [[id number]] Allergies As of Date: 09/27/2018 Noted Allergy Reaction ZYLOPRIM (ALLOPURINOL) 05/26/2017 2 - Rash environmental [Other] 12/30/2005 5 - Intolerance Comments: rhinitis TRAMADOL 03/10/2016 14 - Other: See Comments Comments: made patient woozy/dizzy Date Reviewed: 09/27/2018 Reviewed by: Ludmila Saunders LPN - Fully Assessed Reason for Visit: Recheck [92] Cmt: Follow up Primary Visit Diagnosis:Essential hypertension [I10] Other Visit Diagnoses:Persistent atrial fibrillation (HCC) [I48.1] Chronic obstructive pulmonary disease with acute exacerbation (HCC) [J44.1] LEMONS (dyspnea on exertion) [R06.09] S/P ventricular septal myectomy [Z98.890] 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] Order(s):albuterol HFA (VENTOLIN HFA) 90 mcg/actuation inhalerInhale 2 Puffs as instructed every 4 hours as needed for Wheezing/Shortness of Breath.Disp: 1 InhalerRfl: 1 Prescriptions as of 09/27/2018 Sig: ACETAMINOPHEN 325 MG TABLET 1-2 tablets by ORAL/FEEDING T* ALBUTEROL SULFATE HFA 90 MCG/* Inhale 2 Puffs as instructed * ASPIRIN 81 MG CHEWABLE TABLET Take 1 tablet by mouth once d* CHOLECALCIFEROL (VITAMIN D3) * Take 1 capsule by mouth once * MAGNESIUM OXIDE 400 MG (241.3* Take 1 tablet by mouth once d* POTASSIUM CHLORIDE ER 10 MEQ * Take 10 mEq by mouth once kodi* THERAPEUTIC MULTIVITAMIN TABL* Take 1 tablet by mouth daily * WARFARIN 2 MG TABLET Take 2 mg by mouth once daily. X FUROSEMIDE 40 MG TABLET Take 1 tablet by mouth once d* X UMECLIDINIUM 62.5 MCG-VILANTE* Inhale one inhalation as inst* PANTOPRAZOLE 20 MG TABLET,DEL* Take 1 tablet by mouth DAILY * PAROXETINE 10 MG TABLET Take 1 tablet by mouth once d* Medication notes this encounter AMOXICILLIN 875 MG-POTASSIUM CLAVULANATE 125 MG TABLET >> Alisia Pacheco MD 09/27/2018 3:11 PM >> ALISIA PACHECO MD ThuSep 27, 2018 3:11 PM Stiooed after 3 days because upset stomach and diarrhea Problem List As Of Date 09/27/2018 Noted Resolved FX LATERAL MALLEOLUS-CLOSE [S82.63XA] INVALID FOR*09/05/2008 ELEV BL PRES W/O HYPERTN [R03.0] INVALID FOR*10/06/2008 Unspecified disorder of bladder [N32.9] INVALID FOR*08/03/2018 More... Impaired fasting glucose [R73.01] INVALID FOR*08/03/2018 Essential hypertension [I10] INVALID FOR* More... Osteoporosis [M81.0] INVALID FOR* More... Vitamin D deficiency [E55.9] INVALID FOR*08/03/2018 More... MR (mitral regurgitation) [I34.0] More... IBS (irritable bowel syndrome) [K58.9] 08/03/2018 More... 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 Afib (HCC) [I48.91] INVALID FOR* More... Pulmonary emphysema (HCC) [J43.9] INVALID FOR* Bone metastasis (HCC) [C79.51] INVALID FOR* More... 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 HOCM (hypertrophic obstructive cardiomyopathy) *INVALID FOR* More... Discharge planning issues [Z02.9] INVALID FOR* More... Preop testing [Z01.818] INVALID FOR*08/03/2018 More... Encounter for preoperative anesthesiology asses*INVALID FOR* Cardiac insufficiency (HCC) [I50.9] INVALID FOR*07/31/2018 More... On mechanically assisted ventilation (HCC) [Z99*INVALID FOR*07/31/2018 More... Postoperative pain [G89.18] INVALID FOR*08/03/2018 More... Stress hyperglycemia [R73.9] INVALID FOR*08/05/2018 More... Hypovolemia/fluctuating lacic acidosis [E86.1] INVALID FOR*08/02/2018 More... COPD (chronic obstructive pulmonary disease) (H*INVALID FOR* More... Anxiety [F41.9] INVALID FOR* More... Hypervolemia [E87.70] INVALID FOR*08/03/2018 More... RADHA (acute kidney injury) (HCC) [N17.9] INVALID FOR*08/05/2018 More... Transition of care performed with sharing of cl*INVALID FOR* More... 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 Medications Discontinued During This Encounter predniSONE (DELTASONE) 10 mg tablet 30 t* 0 09/13/2018 09/27/2018 Si tablets daily for 3 days, 3 tablets daily for 3 days, 2 tablets daily for 3 days, 1 tablets daily for 3 days. Disc: Course of therapy completed albuterol HFA (VENTOLIN HFA) 90 mcg/* 1 In* 0 08/04/2016 09/27/2018 Route: INHALATION Sig: Inhale 2 Puffs as instructed every 4 hours as needed for Wheezing/Shortness of Breath. Disc: Reason for discontinue is not on file. Disposition: Return in about 6 months (around 03/27/2019) for 6 months follow up. Follow-up and Disposition History Recorded Encounter Status:Closed by ALISIA PACHECO MD on 10/13/18 PROGRESS Observed: 09/20/2018 Status: COMPLETED Source: [place] 3:59 PM [facility] REPOSITORY HNO ID: [id number] Author: Portia Theodore RN Service: (none) Author Type: (none) Type: Progress Notes Filed: 09/20/2018 3:59 PM Note Text: per written order by dr pacheco she agrees with information below PROGRESS Observed: 09/20/2018 Status: COMPLETED Source: [place] 3:29 PM [facility] REPOSITORY HNO ID: [id number] Author: Portia Theodore RN Service: (none) Author Type: (none) Type: Progress Notes Filed: 09/20/2018 3:30 PM Note Text: patient had inr completed at [facility] patients inr is 2.5 (patients inr range is 2.0-3.0) patient is currently taking 1mg-1mg-2mg cycle patients last dose change was on 09/02/18 due to a high level of 3.4 (dose at that time was 1mg alternating with 2mg) patient has had no changes in medication and no missed doses and no change in diet Advised patient to continue on the same dose(s) and that they would only be contacted regarding dosage and follow up instructions after review with provider, if a change is needed. Written instructions given and patient verbalized understanding. Presently scheduled in 2 weeks (10/05/18) for follow up INR. CNOVSP Observed: 09/16/2018 Status: COMPLETED Source: [place] 4:00 PM [facility] [place] REPOSITORY Visit (SP) Office (BAR[place]) PRISCILLA SHARPE ([id number]) 1940 F Date Time Provider Department 09/16/18 4:00 PM CARI MARTINEZ During your visit today, we recorded the following information about you: Temperature Pulse Blood pressure Weight 98.6 degrees 53/minute 150/86 68 kg Connie Spence LPN, LPN 09/16/2018 3:19 PM Signed Est pt. Discuss recent labs and ct results WENDI Lux MD 09/16/2018 4:50 PM Signed PATIENT NAME: Priscilla Sharpe. CLINIC NO: [id number]. ATTENDING PHYSICIAN: Cari Martinez MD. DATE OF SERVICE: 09/16/2018. ?? 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 HPI: 78-year-old [place] lady who presented last summer with complaint of lower back pain secondary to spinal stenosis. She has several injection last year without any improvement. She had additional pain in her legs but more numb and pain that radiates--will see internal corrosion specialist from [facility] here in [place]. She also noted left hip pain as well.She had a follow-up MRI scan in December, which showed sclerotic bone lesions in the lumbar spine as well as left iliac bone. ?? Patient then had additional study bone scan which showed multifocal osteoblastic metastatic lesions. CT scan of abdomen and pelvis showed no adenopathy or splenomegaly but cystic lesion in the kidney and liver and a left adrenal adenoma. Cholelithiasis without evidence for acute cholecystitis. Again, metastatic lesions in the lumbar spine and pelvis. 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 Moderate atrophy and white matter ischemic changes also noted. CT-guided biopsy of the bone lesion in her left hip on 02/25/17 is consistent with a non-Hodgkin B-cell lymphoma, unclassifiable (small lymphocytic cells); CD5 negative, CD20 positive, CD23 positive, CD10 negative, BCL2 positive, but cyclin D1 negative. ?? Patient also noted a mass in her left posterior cervical triangle for over a year. She has no fever, chills or night sweats. She has no increased fatigue, or weight loss. Patient was a previous smoker but has not smoked for over 15 years. No family history of cancer, leukemia or lymphoma. Patient has no hoarseness or dysphagia. She has history of decreased hearing and positional vertigo. Her back and left hip pain is controlled with prednisone?taper?and pain medications regimen. ?? Previous?Treatment: Rituxan AND?bendamustine x 6 cycles ( 04/29/17 - 10/13/17 ) ?? Interim history:?Patient is doing well. She has no fever, chills or night sweat. She had open heart surgery, and valvular surgery this summer ? All medications AND allergies updated and reviewed by me. ?? CONSTITUTIONAL: No fevers, chills, nightsweats, unintended weight loss HEENT: Denies frequent or severe heaches, nasal congestion/sinus symptoms, problematic allergy problems. EYES: No diplopia or blurry vision. CARDIOVASCULAR: No chest pain, dyspnea, palpitations, orthopnea, PND, ankle edema. PULM: No dyspnea, unexplained cough. GI: No dysphagia/odynophagia, problematic reflux, constipation, diarrhea, changes in stool habits, hematochezia, melena. : No new urinary complaints, including dysuria, gross hematuria or pyuria. NEURO: No new balance problems, peripheral weakness/paresthesias or numbness of concern. MUSC-SKEL: No new joint pain, swelling, or erythema.+ Chronic lower back and left hip pain with sciatica PSY: No concerns regarding depression, anxiety or panic. INTEGUMENTARY: No new skin changes (rash, new or changing mole, new growth) ?? PHYSICAL EXAMINATION: 78-year-old well-nourished, well-developed lady in no acute distress Performance status 100% BP 150/86 Pulse 53 Temp 98.6 Wt 150 lb (68.0kg) HEENT: Head is normocephalic, atraumatic. Sclerae white, conjunctivae pink. PEERL. EOMs are intact. Oropharynx is benign. LYMPHATICS: There is no?palpable cervical adenopathy, no supraclavicular region, axillae, or groin. LUNGS: Lungs are clear to percussion and auscultation. HEART: Heart is normal with grade 2/6 holosystolic?murmurs, no gallops, or rubs. ABDOMEN: Soft and nontender without organomegaly. No masses can be palpated. EXTREMITIES: Are without edema. NEUROLOGIC: Exam is physiologic ?? LABORATORY DATA: Component Latest Ref Rng AND Units 09/14/2018 WBC, [place] 3.70 - 11.00 k/uL 8.43 RBC, [place] 3.90 - 5.20 m/uL 5.65 (H) Hemoglobin, [place] 11.5 - 15.5 g/dL 12.9 Hematocrit, [place] 36.0 - 46.0 % 41.9 MCV, [place] 80.0 - 100.0 fL 74.2 (L) MCH, [place] 26.0 - 34.0 pg 22.8 (L) MCHC, [place] 30.5 - 36.0 g/dL 30.8 RDW, [place] 11.5 - 15.0 % 18.9 (H) Platelet Cnt, [place] 150 - 400 k/uL 327 MPV, [place] 9.0 - 12.7 fL 9.6 Absol Gran Count 1.45 - 7.50 k/uL 5.66 Component Latest Ref Rng AND Units 09/14/2018 Glucose 74 - 99 mg/dL 130 (H) BUN 7 - 21 mg/dL 16 Creatinine 0.58 - 0.96 mg/dL 0.99 (H) Sodium 136 - 144 mmol/L 139 Potassium 3.7 - 5.1 mmol/L 3.5 (L) Chloride 97 - 105 mmol/L 102 CO2 22 - 30 mmol/L 25 Anion Gap mmol/L 12 Calcium 8.5 - 10.2 mg/dL 9.7 eGFR- >60 eGFR-All Other Races . 54 Albumin 3.9 - 4.9 g/dL 4.3 Bilirubin, Total 0.2 - 1.3 mg/dL 0.4 Bilirubin, Conjug <0.2 mg/dL <0.2 Alkaline Phosphatase 34 - 123 U/L 119 AST 13 - 35 U/L 15 ALT 7 - 38 U/L 8 Protein, Total 6.3 - 8.0 g/dL 7.2 LD 135 - 214 U/L 228 (H) Component Latest Ref Rng AND Units 09/14/2018 MPA IgG, Serum 717 - 1,411 mg/dL 714 (L) MPA IgA, Serum 78 - 391 mg/dL 258 MPA IgM, Serum 53 - 334 mg/dL 107 [place] Free, Serum 3.30 - 19.40 mg/L 21.5 (H) Lambda Free, Serum 5.7 - 26.3 mg/L 17.8 K/L Ratio, Serum 0.26 - 1.65 1.21 MPA Result No M protein is identified. No M protein is identified. Staff Review ([facility]) Reviewed by Panda Mar M.D. ([id number]) CT SCAN: chest/abdomen/pelvis COMPARISON: 07/17/2017 IMPRESSION: Emphysema. ?Stable 4 mm right lung nodule. ?Atelectasis or fibrosis in the lingula. No developing suspicious mass or adenopathy in the chest. Stable sclerotic left iliac focus. Multiple low-density splenic lesions. ?One of these is slightly larger than the prior study. ?The remainder appear stable. No developing adenopathy within the abdomen or pelvis. ?Stable low density hepatic and renal foci. Diverticulosis of the colon. Stable left adrenal nodule Gallstones. ASSESSMENT:?78-year-old female with stage IV, non-Hodgkin's B-cell lymphoma (possible CD5 - variant of small lymphocytic lymphoma) not consistent with Waldenstrom or lymphoplasmacytic lymphoma. in complete remission. ?? PLAN: - Continued observation and follow-up in 6 months. - Continue Coumadin. - Repeat CBC, CMP, LDH, immunofixation AND OV in 6 months. Cari Martinez MD ? Cc: Dr. Brandon Argueta Referring Provider: CARI MARTINEZ [[id number]] Allergies As of Date: 09/16/2018 Noted Allergy Reaction ZYLOPRIM (ALLOPURINOL) 05/26/2017 2 - Rash environmental [Other] 12/30/2005 5 - Intolerance Comments: rhinitis TRAMADOL 03/10/2016 14 - Other: See Comments Comments: made patient woozy/dizzy Date Reviewed: 09/16/2018 Reviewed by: Connie Phan (Wendi) WENDI Spence - Fully Assessed Reason for Visit: Established Patient [175] Primary Visit Diagnosis: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) [C83.09] Other Visit Diagnoses:Bone metastases (HCC) [C79.51] 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] Level of Service: EST PATIENT VISIT LEVEL 3 [[id number]] Disposition: Return in about 6 months (around 03/16/2019). Follow-up and Disposition History Recorded Prescriptions as of 09/16/2018 Sig: AMOXICILLIN 875 MG-POTASSIUM * Take 1 tablet by mouth twice * PREDNISONE 10 MG TABLET 4 tablets daily for 3 days, 3* BENZONATATE 100 MG CAPSULE Take 1 capsule by mouth three* GUAIFENESIN ER 600 MG TABLET,* Take 1 tablet by mouth twice * ACETAMINOPHEN 325 MG TABLET 1-2 tablets by ORAL/FEEDING T* ASPIRIN 81 MG CHEWABLE TABLET Take 1 tablet by mouth once d* POTASSIUM CHLORIDE ER 10 MEQ * Take 10 mEq by mouth once kodi* UMECLIDINIUM 62.5 MCG-VILANTE* Inhale one inhalation as inst* WARFARIN 2 MG TABLET Take 2 mg by mouth once daily. FUROSEMIDE 40 MG TABLET Take 1 tablet by mouth once d* MAGNESIUM OXIDE 400 MG (241.3* Take 1 tablet by mouth once d* ALBUTEROL SULFATE HFA 90 MCG/* Inhale 2 Puffs as instructed * CHOLECALCIFEROL (VITAMIN D3) * Take 1 capsule by mouth once * THERAPEUTIC MULTIVITAMIN TABL* Take 1 tablet by mouth daily * Patient not taking: Reported on 09/16/2018 PANTOPRAZOLE 20 MG TABLET,DEL* Take 1 tablet by mouth DAILY * Patient not taking: Reported on 09/16/2018 PAROXETINE 10 MG TABLET Take 1 tablet by mouth once d* Patient not taking: Reported on 09/16/2018 Problem List As Of Date 09/16/2018 Noted Resolved FX LATERAL MALLEOLUS-CLOSE [S82.63XA] INVALID FOR*09/05/2008 ELEV BL PRES W/O HYPERTN [R03.0] INVALID FOR*10/06/2008 Unspecified disorder of bladder [N32.9] INVALID FOR*08/03/2018 More... Impaired fasting glucose [R73.01] INVALID FOR*08/03/2018 Essential hypertension [I10] INVALID FOR* Priority: A More... Osteoporosis [M81.0] INVALID FOR* More... Vitamin D deficiency [E55.9] INVALID FOR*08/03/2018 More... MR (mitral regurgitation) [I34.0] Priority: A More... IBS (irritable bowel syndrome) [K58.9] 08/03/2018 More... 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 Afib (HCC) [I48.91] INVALID FOR* Priority: A More... Pulmonary emphysema (HCC) [J43.9] INVALID FOR* Bone metastasis (HCC) [C79.51] INVALID FOR* More... 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 HOCM (hypertrophic obstructive cardiomyopathy) *INVALID FOR* Priority: A More... Discharge planning issues [Z02.9] INVALID FOR* Priority: D More... Preop testing [Z01.818] INVALID FOR*08/03/2018 Priority: A More... Encounter for preoperative anesthesiology asses*INVALID FOR* Cardiac insufficiency (HCC) [I50.9] INVALID FOR*07/31/2018 Priority: C More... On mechanically assisted ventilation (HCC) [Z99*INVALID FOR*07/31/2018 Priority: B More... Postoperative pain [G89.18] INVALID FOR*08/03/2018 Priority: D More... Stress hyperglycemia [R73.9] INVALID FOR*08/05/2018 Priority: C More... Hypovolemia/fluctuating lacic acidosis [E86.1] INVALID FOR*08/02/2018 Priority: F More... COPD (chronic obstructive pulmonary disease) (H*INVALID FOR* Priority: B More... Anxiety [F41.9] INVALID FOR* Priority: C More... Hypervolemia [E87.70] INVALID FOR*08/03/2018 Priority: F More... RADHA (acute kidney injury) (HCC) [N17.9] INVALID FOR*08/05/2018 Priority: C More... Transition of care performed with sharing of cl*INVALID FOR* Priority: Very Severe More... 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 Discuss recent labs and ct results Connie Spence LPN Encounter Status:Closed by CARI MARTINEZ MD on 09/16/18 PROGRESS Observed: 09/16/2018 Status: COMPLETED Source: [place] 3:24 PM [facility] REPOSIT[facility] HNO ID: [id number] Author: Cari Martinez Service: (none) Author Type: Physician Type: Progress Notes Filed: 09/16/2018 4:50 PM Note Text: PATIENT NAME: Priscilla Sharpe. CLINIC NO: [id number]. ATTENDING PHYSICIAN: Cari Martinez MD. DATE OF SERVICE: 09/16/2018. ?? 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 HPI: 78-year-old [place] lady who presented last summer with complaint of lower back pain secondary to spinal stenosis. She has several injection last year without any improvement. She had additional pain in her legs but more numb and pain that radiates--will see internal corrosion specialist from [facility] here in [place]. She also noted left hip pain as well.She had a follow-up MRI scan in December, which showed sclerotic bone lesions in the lumbar spine as well as left iliac bone. ?? Patient then had additional study bone scan which showed multifocal osteoblastic metastatic lesions. CT scan of abdomen and pelvis showed no adenopathy or splenomegaly but cystic lesion in the kidney and liver and a left adrenal adenoma. Cholelithiasis without evidence for acute cholecystitis. Again, metastatic lesions in the lumbar spine and pelvis. 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 Moderate atrophy and white matter ischemic changes also noted. CT-guided biopsy of the bone lesion in her left hip on 02/25/17 is consistent with a non-Hodgkin B-cell lymphoma, unclassifiable (small lymphocytic cells); CD5 negative, CD20 positive, CD23 positive, CD10 negative, BCL2 positive, but cyclin D1 negative. ?? Patient also noted a mass in her left posterior cervical triangle for over a year. She has no fever, chills or night sweats. She has no increased fatigue, or weight loss. Patient was a previous smoker but has not smoked for over 15 years. No family history of cancer, leukemia or lymphoma. Patient has no hoarseness or dysphagia. She has history of decreased hearing and positional vertigo. Her back and left hip pain is controlled with prednisone?taper?and pain medications regimen. ?? Previous?Treatment: Rituxan AND?bendamustine x 6 cycles ( 04/29/17 - 10/13/17 ) ?? Interim history:?Patient is doing well. She has no fever, chills or night sweat. She had open heart surgery, and valvular surgery this summer ? All medications AND allergies updated and reviewed by me. ?? CONSTITUTIONAL: No fevers, chills, nightsweats, unintended weight loss HEENT: Denies frequent or severe heaches, nasal congestion/sinus symptoms, problematic allergy problems. EYES: No diplopia or blurry vision. CARDIOVASCULAR: No chest pain, dyspnea, palpitations, orthopnea, PND, ankle edema. PULM: No dyspnea, unexplained cough. GI: No dysphagia/odynophagia, problematic reflux, constipation, diarrhea, changes in stool habits, hematochezia, melena. : No new urinary complaints, including dysuria, gross hematuria or pyuria. NEURO: No new balance problems, peripheral weakness/paresthesias or numbness of concern. MUSC-SKEL: No new joint pain, swelling, or erythema.+ Chronic lower back and left hip pain with sciatica PSY: No concerns regarding depression, anxiety or panic. INTEGUMENTARY: No new skin changes (rash, new or changing mole, new growth) ?? PHYSICAL EXAMINATION: 78-year-old well-nourished, well-developed lady in no acute distress Performance status 100% BP 150/86 Pulse 53 Temp 98.6 Wt 150 lb (68.0kg) HEENT: Head is normocephalic, atraumatic. Sclerae white, conjunctivae pink. PEERL. EOMs are intact. Oropharynx is benign. LYMPHATICS: There is no?palpable cervical adenopathy, no supraclavicular region, axillae, or groin. LUNGS: Lungs are clear to percussion and auscultation. HEART: Heart is normal with grade 2/6 holosystolic?murmurs, no gallops, or rubs. ABDOMEN: Soft and nontender without organomegaly. No masses can be palpated. EXTREMITIES: Are without edema. NEUROLOGIC: Exam is physiologic ?? LABORATORY DATA: Component Latest Ref Rng AND Units 09/14/2018 WBC, [place] 3.70 - 11.00 k/uL 8.43 RBC, [place] 3.90 - 5.20 m/uL 5.65 (H) Hemoglobin, [place] 11.5 - 15.5 g/dL 12.9 Hematocrit, [place] 36.0 - 46.0 % 41.9 MCV, [place] 80.0 - 100.0 fL 74.2 (L) MCH, [place] 26.0 - 34.0 pg 22.8 (L) MCHC, [place] 30.5 - 36.0 g/dL 30.8 RDW, [place] 11.5 - 15.0 % 18.9 (H) Platelet Cnt, [place] 150 - 400 k/uL 327 MPV, [place] 9.0 - 12.7 fL 9.6 Absol Gran Count 1.45 - 7.50 k/uL 5.66 Component Latest Ref Rng AND Units 09/14/2018 Glucose 74 - 99 mg/dL 130 (H) BUN 7 - 21 mg/dL 16 Creatinine 0.58 - 0.96 mg/dL 0.99 (H) Sodium 136 - 144 mmol/L 139 Potassium 3.7 - 5.1 mmol/L 3.5 (L) Chloride 97 - 105 mmol/L 102 CO2 22 - 30 mmol/L 25 Anion Gap mmol/L 12 Calcium 8.5 - 10.2 mg/dL 9.7 eGFR- >60 eGFR-All Other Races . 54 Albumin 3.9 - 4.9 g/dL 4.3 Bilirubin, Total 0.2 - 1.3 mg/dL 0.4 Bilirubin, Conjug <0.2 mg/dL <0.2 Alkaline Phosphatase 34 - 123 U/L 119 AST 13 - 35 U/L 15 ALT 7 - 38 U/L 8 Protein, Total 6.3 - 8.0 g/dL 7.2 LD 135 - 214 U/L 228 (H) Component Latest Ref Rng AND Units 09/14/2018 MPA IgG, Serum 717 - 1,411 mg/dL 714 (L) MPA IgA, Serum 78 - 391 mg/dL 258 MPA IgM, Serum 53 - 334 mg/dL 107 [place] Free, Serum 3.30 - 19.40 mg/L 21.5 (H) Lambda Free, Serum 5.7 - 26.3 mg/L 17.8 K/L Ratio, Serum 0.26 - 1.65 1.21 MPA Result No M protein is identified. No M protein is identified. Staff Review ([facility]) Reviewed by Panda Mar M.D. ([id number]) CT SCAN: chest/abdomen/pelvis COMPARISON: 07/17/2017 IMPRESSION: Emphysema. ?Stable 4 mm right lung nodule. ?Atelectasis or fibrosis in the lingula. No developing suspicious mass or adenopathy in the chest. Stable sclerotic left iliac focus. Multiple low-density splenic lesions. ?One of these is slightly larger than the prior study. ?The remainder appear stable. No developing adenopathy within the abdomen or pelvis. ?Stable low density hepatic and renal foci. Diverticulosis of the colon. Stable left adrenal nodule Gallstones. ASSESSMENT:?78-year-old female with stage IV, non-Hodgkin's B-cell lymphoma (possible CD5 - variant of small lymphocytic lymphoma) not consistent with Waldenstrom or lymphoplasmacytic lymphoma. in complete remission. ?? PLAN: - Continued observation and follow-up in 6 months. - Continue Coumadin. - Repeat CBC, CMP, LDH, immunofixation AND OV in 6 months. Cari Martinez MD ? Cc: Dr. Brandon Argueta PROGRESS Observed: 09/16/2018 Status: COMPLETED Source: [place] 11:32 AM [facility] REPOSITORY HNO ID: [id number] Author: Yovany Woo RN Service: (none) Author Type: (none) Type: Progress Notes Filed: 09/16/2018 11:32 AM Note Text: INR scheduled for Sep 20. Patient agreeable. PROGRESS Observed: 09/16/2018 Status: COMPLETED Source: [place] 10:43 AM [facility] [place] REPOSITORY HNO ID: [id number] Author: Sheryl Puga LPN Service: (none) Author Type: (none) Type: Progress Notes Filed: 09/16/2018 11:32 AM Note Text: Phoned patient and left message to return call to office. PROGRESS Observed: 09/16/2018 Status: COMPLETED Source: [place] 10:23 AM [facility] REPOSITORY HNO ID: [id number] Author: Peter Lee Service: (none) Author Type: Physician Type: Progress Notes Filed: 09/16/2018 11:32 AM Note Text: INR . PROGRESS Observed: 09/15/2018 Status: COMPLETED Source: [place] 4:57 PM [facility] REPOSITORY HNO ID: [id number] Author: Sheryl Puga LPN Service: (none) Author Type: (none) Type: Progress Notes Filed: 09/16/2018 11:32 AM Note Text: Phoned patient and went over coumadin instructions from Dr Lee as below with understanding. Patient will not be in town in a week goes to daughter home in [place] on 09/21/2018, do you want her to check INR on 09/20/2018? PROGRESS Observed: 09/15/2018 Status: COMPLETED Source: [place] 4:45 PM [facility] REPOSITORY HNO ID: [id number] Author: Peter Lee Service: (none) Author Type: Physician Type: Progress Notes Filed: 09/16/2018 11:32 AM Note Text: Do not take half doses. Coumadin dose 1-1-2 mg cycles. INR in 1 week. PROGRESS Observed: 09/15/2018 Status: COMPLETED Source: [place] 1:47 PM [facility] REPOSITORY HNO ID: [id number] Author: Kimberly Atkins RN Service: (none) Author Type: (none) Type: Progress Notes Filed: 09/15/2018 2:27 PM Note Text: Patient had INR completed at [facility] Patient's INR is 1.8 Patient is currently taking half doses of instructed 1mg-1mg-2mg cycle. Patient's last dose change was 09/02/18 due to high INR at 3.4 Patient has been on Augmentin since 09/13/18 for 10 day course and states she is planning on starting prednisone course today and no change in diet. Advised patient that they would be contacted regarding medication dose and follow-up once reviewed by provider. After provider review, please contact patient with information and schedule follow-up appointment with coumadin clinic. PROGRESS Observed: 09/14/2018 Status: COMPLETED Source: [place] 4:01 PM [facility] [place] REPOSITORY O ID: [id number] Author: Damaris Bauer Ct Service: (none) Author Type: (none) Type: Progress Notes Filed: 09/14/2018 4:02 PM Note Text: Radiology Service Progress Note PATIENT NAME: Priscilla Sharpe DATE OF SERVICE: September 14, 2018 TIME: 4:01 PM PATIENT IDENTITY VERIFICATION COMPLETED USING TWO (2) METHODS: Patient confirmed name verbally and Date of . PATIENT GENDER DATA: Female. status: : No status: NO. PATIENT RELEVANT IMPLANT DATA REVIEWED: Not Applicable CONTRAST INDUCED NEPHROPATHY RISK FACTORS: Patient age > 60 years CREATININE: Creatinine Date Value Ref Range Status 09/14/2018 0.99 (H) 0.58 - 0.96 mg/dL Final 08/19/2018 0.99 (H) 0.58 - 0.96 mg/dL Final 08/06/2018 0.96 0.58 - 0.96 mg/dL Final eGFR-All Other Races Date Value Ref Range Status 09/14/2018 54 . Final Comment: eGFR (Estimated GFR) Units of measure: mL/min/1.73 meters squared eGFR is derived from the reexpressed MDRD Study equation using the following parameters: serum creatinine, age, gender and race. The creatinine assay has been calibrated to be traceable to IDMS. An eGFR <60 mL/min/1.73m2 for >3 months is consistent with chronic kidney disease. Refer to KDOQI guidelines for clinical interpretation. In patients with unstable renal function, e.g. those with acute kidney injury, the eGFR may not accurately reflect actual GFR. eGFR- Date Value Ref Range Status 09/14/2018 >60 Final P.O.C.T. RESULTS: POC done: Yes, See Lab Tab September 14, 2018 RADIOLOGIST NOTIFIED?: No ALLERGIES: Reviewed and unchanged CONTRAST ALLERGY: NO. PERIPHERAL IV ACCESS: Ambulatory: IV type: A peripheral IV was started in the Left antecubital site with a Angio cath: 22 gauge., Site assessment: Clean,Dry and Intact, Site disposition Discontinued RADIOLOGY DEPARTMENT: CT; Exam(s) Completed: Chest Abdomen Pelvis SIGNED BY: Damaris Bauer Ct September 14, 2018 4:[address] ABD/PEL W IVCON Observed: 09/14/2018 Status: F Source: [place] 2:33 PM [facility] [place] REPOSITORY * * *Final Report* * * DATE OF EXAM: Sep 14 2018 2:33PM [facility] 0530 - CT ABD/PEL W IVCON / PROCEDURE REASON: Lymphoblastic (diffuse) lymphoma, lymph nodes of multiple sites * * * * Physician Interpretation * * * * EXAMINATION: CT ABDOMEN AND PELVIS WITH IV CONTRAST CLINICAL HISTORY: Lymphoma TECHNIQUE: CT of the abdomen and pelvis was performed using standard technique, scanning from just above the dome of the diaphragm to the symphysis pubis. MQ: CTAP_3 Contrast: IV: 148 ml of Omnipaque 300 Oral: 50 ml of 50ML Omnipaque [address] Radiation dose: Integrated Dose-length product (DLP) for this visit = 460 mGy*cm. CT Dose Reduction Employed: Automated exposure control(AEC) and iterative recon COMPARISON: 07/17/2017 RESULT: Liver: Right hepatic lobe cyst is again seen. Several additional few millimeter low density foci are likely additional cysts. No developing hepatic abnormality. Biliary: No bile duct dilation. Multiple gallstones are seen. Spleen: The spleen is 10 cm in length. Low-density splenic lesions are again noted. Superior splenic lesion on image 13 measures 1.1 x 1.5 cm. Stable. Inferior /lateral splenic lesion on image 33 measures 1.3 x 1.2 cm.. Previously 0.7 cm. Posterior splenic lesion on image 16 measures 1.1 x 1 cm. Unchanged. Pancreas: No mass or duct dilation. Adrenals: Left adrenal nodule is stable. Likely incidental adenoma. Functional adenoma cannot be excluded. Kidneys: Normal. A few subcentimeter low density foci are too small to characterize with certainty and likely represent cysts. No evidence of solid mass or gross obstructive uropathy. GI tract: No dilation or wall thickening. Diverticulosis of the colon is seen without evidence of diverticulitis. Lymph nodes: No abdominal or pelvic lymphadenopathy. Mesentery/Peritoneum: No ascites or mass. Retroperitoneum: No mass. Vasculature: The celiac axis and SMA are patent. The portal vein and branches, splenic vein, SMV, and hepatic veins are patent. Pelvis: No mass, ascites or fluid collection. Bones/Soft Tissues: Grade 1 spondylolisthesis of L4 on L5 is stable. Bony structures appear stable. Sclerotic density in the left iliac bone is unchanged. Lower thorax: Scans through the chest are dictated separately. IMPRESSION: Stable sclerotic left iliac focus. Multiple low-density splenic lesions. One of these is slightly larger than the prior study. The remainder appear stable. No developing adenopathy within the abdomen or pelvis. Stable low density hepatic and renal foci. Diverticulosis of the colon. Stable left adrenal nodule Gallstones. Medical Billing Specialist: [facility] Transcribe Date/Time: Sep 14 2018 6:15P Dictated by : MEHUL WELCH MD This examination was interpreted and the report reviewed and electronically signed by: MEHUL WELCH MD on Sep 14 2018 6:30PM EST [id number] CT CHEST W IVCON Observed: 09/14/2018 Status: F Source: [place] 2:33 PM [facility] REPOSITORY * * *Final Report* * * DATE OF EXAM: Sep 14 2018 2:33PM [facility] 0539 - CT CHEST W IVCON / PROCEDURE REASON: Lymphoblastic (diffuse) lymphoma, lymph nodes of multiple sites * * * * Physician Interpretation * * * * EXAMINATION: CHEST CT WITH CONTRAST CLINICAL HISTORY: Lymphoblastic (diffuse) lymphoma, lymph nodes of multiple sites Technique: Spiral CT acquisition of the chest from the thoracic inlet to the upper abdomen following IV contrast. MQ: CTCWR_5 Contrast: 148 mL Omnipaque [address] Dose-Length Product: 460 mGy*cm CT Dose Reduction Employed: Automated exposure control(AEC) and iterative recon Comparison: 07/17/2017 RESULT: Limitations: None. Lines, tubes, and devices: None. Lung parenchyma and pleura: Emphysema is again noted. 4 mm right lower lobe nodule on image 57 is stable. Minimal atelectasis or fibrosis within the lingula is unchanged. No new significant collapse or consolidation. No developing lung nodule or mass. Thoracic inlet, heart, and mediastinum: No lymphadenopathy in the axillary, mediastinal, or hilar regions. No pericardial effusion or thickening. Bones and soft tissues: No destructive bone lesion. Chest wall is unremarkable. Mediastinal clips and wires are in place. Upper abdomen: Scans through the abdomen and pelvis are dictated separately. IMPRESSION: Emphysema. Stable 4 mm right lung nodule. Atelectasis or fibrosis in the lingula. No developing suspicious mass or adenopathy in the chest. Medical Billing Specialist: [facility] Transcribe Date/Time: Sep 14 2018 6:30P Dictated by : MEHUL WELCH MD This examination was interpreted and the report reviewed and electronically signed by: MEHUL WELCH MD on Sep 14 2018 6:36PM EST [id number] BRYAN ABS GR + CBC Collected: 09/14/2018 Status: F Source: [place] 1:19 PM [facility] REPOSITORY TYPE CODE TESTS RESULT OUT OF REFERENCE UNITS RANGE LAB WWBC 3.70-11.00 k/uL [place] WBC 8.43 LAB WRBC 3.90-5.20 m/uL [place] High RBC 5.65 LAB WHGB 11.5-15.5 g/dL [place] Hemoglobin 12.9 LAB WHCT 36.0-46.0 % [place] Hematocrit 41.9 LAB WMCV 80.0-100.0 fL Low [place] MCV 74.2 LAB WMCH 26.0-34.0 pg Low [place] MCH 22.8 LAB WMCHC 30.5-36.0 g/dL [place] MCHC 30.8 LAB WRDW 11.5-15.0 % [place] High RDW 18.9 LAB WPLT 150-400 k/uL [place] Platelet Cnt 327 LAB WMPV 9.0-12.7 fL [place] MPV 9.6 Result Comment: Test performed at: [facility], [address] [place] [address] Rd[address] [place] [address]. LAB ABGRAN 1.45-7.50 k/uL Absol Gran 5.66 Count BASIC METABOLIC PANL Collected: 09/14/2018 Status: F Source: [place] 1:19 PM [facility] REPOSITORY TYPE CODE TESTS RESULT OUT OF REFERENCE UNITS RANGE LAB GLU 74-99 mg/dL Glucose High 130 LAB BUN 7-21 mg/dL BUN 16 LAB CRET 0.58-0.96 mg/dL High Creatinine 0.99 LAB NA 136-144 mmol/L Sodium 139 LAB K 3.7-5.1 mmol/L Low Potassium 3.5 LAB CL 97-105 mmol/L Chloride 102 LAB CO2 22-30 mmol/L CO2 25 LAB AGAP mmol/L Anion Gap 12 LAB CA 8.5-10.2 mg/dL Calcium, Total 9.7 LAB GFRAA eGFR- >60 Amer. LAB GFRNAA . eGFR-All Other Races 54 Result Comment: eGFR (Estimated GFR) Units of measure: mL/min/1.73 meters squared eGFR is derived from the reexpressed MDRD Study equation using the following parameters: serum creatinine, age, gender and race. The creatinine assay has been calibrated to be traceable to IDMS. An eGFR <60 mL/min/1.73m2 for >3 months is consistent with chronic kidney disease. Refer to KDOQI guidelines for clinical interpretation. In patients with unstable renal function, e.g. those with acute kidney injury, the eGFR may not accurately reflect actual GFR. LD Collected: 09/14/2018 Status: F Source: [facility] 1:19 PM [facility] [place] REPOSITORY TYPE CODE TESTS RESULT OUT OF RANGE REFERENCE UNITS LAB LD 135-214 U/L High LD 228 HEPATIC FUNCTN PANEL Collected: 09/14/2018 Status: F Source: [place] 1:19 PM [facility] REPOSITORY TYPE CODE TESTS RESULT OUT OF REFERENCE UNITS RANGE LAB ALB 3.9-4.9 g/dL Albumin 4.3 LAB TBIL 0.2-1.3 mg/dL Bilirubin, Total 0.4 LAB CBIL <0.2 mg/dL Bilirubin,Conjuga <0.2 maria luz LAB ALKP 34-123 U/L Alkaline Phosphatase 119 LAB AST 13-35 U/L AST 15 LAB ALT 7-38 U/L ALT 8 LAB TP 6.3-8.0 g/dL Protein, Total 7.2 Performed By: #### SERMPA #### [facility] [address] [place], [place] [address] MONCLNL PROTEIN, SER Collected: 09/14/2018 Status: F Source: [place] 1:19 PM [facility] REPOSITORY TYPE CODE TESTS RESULT OUT OF REFERENCE UNITS RANGE LAB MPAIGG 717-1411 mg/dL Low MPA Serum 714 IgG LAB MPAIGA 78-391 mg/dL MPA Serum 258 IgA LAB MPAIGM 53-334 mg/dL MPA Serum 107 IgM LAB FKAPS 3.30-19.40 mg/L High [place], 21.5 Free, Serum Result Comment: Rarely, increased serum free light chains values may not be detected due to antigen excess phenomenon. Results should always be correlated with other laboratory results and clinical findings. LAB FLAMS 5.7-26.3 mg/L Lambda, Free, 17.8 Serum Result Comment: Rarely, increased serum free light chains values may not be detected due to antigen excess phenomenon. Results should always be correlated with other laboratory results and clinical findings. LAB KLRAT 0.26-1.65 1.21 K/L Ratio, Serum LAB MPAR No M protein is identified. No M MPA Result protein is identified. LAB MPASTF Reviewed Staff Review by Panda Mar M.D. ([id number]) Performed By: #### SERMPA #### [facility] [address] [place], [place] [address] HEMOGLOBIN A1C Collected: 09/14/2018 Status: F Source: [place] 1:18 PM [facility] REPOSITORY TYPE CODE TESTS RESULT OUT OF REFERENCE UNITS RANGE LAB HGBA1C 4.3-5.6 % High Hemoglobin A1c 5.7 Result Comment: [place] [employer] guidelines indicate that patients with HgbA1c in the range 5.7-6.4% are at increased risk for development of diabetes, and intervention by lifestyle modification may be beneficial. HgbA1c greater or equal to 6.5% is considered diagnostic of diabetes. LAB HBA0 mg/dL Est. Average Glucose 117 Result Comment: eAG: (Estimated average glucose) is a calculated value from HgbA1c and is sales representative malt liquors of the average blood glucose level in the last 2-3 month period. Performed By: #### HBA1C #### [facility] [address] [place], [place] [address] CNPTOUTREACH Observed: 09/14/2018 Status: COMPLETED Source: [place] 12:00 AM [facility] REPOSITORY Patient Outreach ([facility]) ARNIEPRISCILLA KRAUS ([id number]) 1940 F Date Time Provider Department 09/14/18 ALISIA PACHECO During your visit today, we recorded the following information about you: Allergies As of Date: 09/14/2018 Noted Allergy Reaction ZYLOPRIM (ALLOPURINOL) 05/26/2017 2 - Rash environmental [Other] 12/30/2005 5 - Intolerance Comments: rhinitis TRAMADOL 03/10/2016 14 - Other: See Comments Comments: made patient woozy/dizzy Date Reviewed: 09/13/2018 Reviewed by: Aaliyah Stone - Fully Assessed Visit Diagnosis:Medication management [Z79.899] Order(s):HGB A1C [[id number]] Order #: [id number] FUTURE Prescriptions as of 09/14/2018 Sig: ACETAMINOPHEN 325 MG TABLET 1-2 tablets by ORAL/FEEDING T* AMOXICILLIN 875 MG-POTASSIUM * Take 1 tablet by mouth twice * ASPIRIN 81 MG CHEWABLE TABLET Take 1 tablet by mouth once d* BENZONATATE 100 MG CAPSULE Take 1 capsule by mouth three* CHOLECALCIFEROL (VITAMIN D3) * Take 1 capsule by mouth once * GUAIFENESIN ER 600 MG TABLET,* Take 1 tablet by mouth twice * MAGNESIUM OXIDE 400 MG (241.3* Take 1 tablet by mouth once d* PANTOPRAZOLE 20 MG TABLET,DEL* Take 1 tablet by mouth DAILY * PAROXETINE 10 MG TABLET Take 1 tablet by mouth once d* POTASSIUM CHLORIDE ER 10 MEQ * Take 10 mEq by mouth once kodi* THERAPEUTIC MULTIVITAMIN TABL* Take 1 tablet by mouth daily * WARFARIN 2 MG TABLET Take 2 mg by mouth once daily. X ALBUTEROL SULFATE HFA 90 MCG/* Inhale 2 Puffs as instructed * X FUROSEMIDE 40 MG TABLET Take 1 tablet by mouth once d* X PREDNISONE 10 MG TABLET 4 tablets daily for 3 days, 3* X UMECLIDINIUM 62.5 MCG-VILANTE* Inhale one inhalation as inst* Problem List As Of Date 09/14/2018 Noted Resolved FX LATERAL MALLEOLUS-CLOSE [S82.63XA] INVALID FOR*09/05/2008 ELEV BL PRES W/O HYPERTN [R03.0] INVALID FOR*10/06/2008 Unspecified disorder of bladder [N32.9] INVALID FOR*08/03/2018 More... Impaired fasting glucose [R73.01] INVALID FOR*08/03/2018 Essential hypertension [I10] INVALID FOR* More... Osteoporosis [M81.0] INVALID FOR* More... Vitamin D deficiency [E55.9] INVALID FOR*08/03/2018 More... MR (mitral regurgitation) [I34.0] More... IBS (irritable bowel syndrome) [K58.9] 08/03/2018 More... 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 Afib (HCC) [I48.91] INVALID FOR* More... Pulmonary emphysema (HCC) [J43.9] INVALID FOR* Bone metastasis (HCC) [C79.51] INVALID FOR* More... 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 HOCM (hypertrophic obstructive cardiomyopathy) *INVALID FOR* More... Discharge planning issues [Z02.9] INVALID FOR* More... Preop testing [Z01.818] INVALID FOR*08/03/2018 More... Encounter for preoperative anesthesiology asses*INVALID FOR* Cardiac insufficiency (HCC) [I50.9] INVALID FOR*07/31/2018 More... On mechanically assisted ventilation (HCC) [Z99*INVALID FOR*07/31/2018 More... Postoperative pain [G89.18] INVALID FOR*08/03/2018 More... Stress hyperglycemia [R73.9] INVALID FOR*08/05/2018 More... Hypovolemia/fluctuating lacic acidosis [E86.1] INVALID FOR*08/02/2018 More... COPD (chronic obstructive pulmonary disease) (H*INVALID FOR* More... Anxiety [F41.9] INVALID FOR* More... Hypervolemia [E87.70] INVALID FOR*08/03/2018 More... RADHA (acute kidney injury) (HCC) [N17.9] INVALID FOR*08/05/2018 More... Transition of care performed with sharing of cl*INVALID FOR* More... S/P ventricular septal myectomy [Z98.890] INVALID FOR* Status post mitral valve repair [Z98.890] INVALID FOR* Encounter Status:Closed by [employer], PRODUSER on 10/15/18 PROGRESS Observed: 09/13/2018 Status: COMPLETED Source: [place] 1:37 PM [facility] REPOSITORY HNO ID: [id number] Author: Aaliyah Stone Service: (none) Author Type: Physician Financial Operations Analyst Type: Progress Notes Filed: 09/13/2018 2:13 PM Note Text: [facility] [place], 09/13/18: HPI: The patient is here for follow up of COPD. The last Pulmonary Clinic visit was 07/15/18. Patient recently had mitral valve repair on 07/30/18, which was complicated by AFib. Since then the patient was evaluated 09/10/18 in secondary viral URI and treated with benzonatate and guaifenesin. Today, patient claims to be consistently compliant with prescribed maintenance Rx. Variable rescue bronchodilator use, increased in last few days. Increased cough with beige/brown, thick sputum. No hemoptysis or pleuritic chest pain. Wheezing. No dyspnea at rest. Exertional dyspnea has not changed. No fevers or chills. Wearing 2 L supplemental oxygen at night. DME: [employer]. PMH: Updated with patient today. FAMH: Updated with patient today. SOCH: Updated with patient today. Immunization History Administered Date(s) Administered Influenza 07/17/2015 Influenza Seasonal - High Dose - Age 65+ 08/23/2013 08/18/2017 08/03/2018 Influenza Seasonal Inj Age 3+ 07/17/2015 Influenza Vaccine, Split-Non Spec 07/17/2012 Pneumococcal-13 Vac Conjugate 09/01/2015 Pneumovax 06/13/2010 TD Adult 11/02/1994 07/19/2012 ROS: General: Generally feels fair. Appetite good. Weight stable. Eyes, Ears, nose, throat: No post nasal drip, rhinorrhea, purulent nasal discharge, epistaxis. No hoarseness. Vision stable. Cardiac: No angina, edema, orthopnea. GI: No heartburn, dysphagia, diarrhea. 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 Musculoskeletal: No pain. Neuro: No headache, focal weakness, tremor. Skin: No rash. Otherwise negative. Allergies were reviewed and updated, and medications were reconciled with the patient. PHYSICAL EXAMINATION: BP 126/62 Pulse 65 Resp 18 Wt 151 lb (68.5kg) SpO2 97% Gen: No acute distress. Cooperative with examination. ENT: Oral hygeine and dentition good. Pharynx clear. No halitosis. Resp: No stridor, accessory respiratory muscle use, supra- sternal or intercostal retractions. No wheezes, crackles. CV: Irregular rythm. Heart tones normal. Radial pulses normal. Abd: Non distended. MSK: No kyphoscoliosis. Ext: Warm and well perfused. No clubbing, cyanosis, edema. Skin: No rash, ecchymoses. Neuro: Mental status normal. Affect normal. No tremor. DATA REVIEW: Reviewed records, images and documentation from inpatient record and UC visit. IMPRESSION/RECOMMEND: COPD, moderate, with acute exacerbation. Most likely viral, however, with history of COPD, will treat for secondary bacterial infection. 1. Start Augmentin 1 tablet twice daily for 10 days. 2. Start Prednisone taper as directed. *Take half of Warfarin (Coumadin) dose while on antibiotic and prednisone. --If no improvement after antibiotic and prednisone taper, will check CXR. 3. Continue current maintenance Rx. Anoro Ellipta 1 inhalation once daily. 4. Continue Mucinex twice daily to assist with secretions. 5. Up to date on influenza and pneumonia vaccine. 6. Continue rescue inhaler as needed for relief of shortness of breath or wheezing, up to 4 times daily. 7. Re-assess in 6-8 weeks with lung function testing, sooner if needed. I addressed the questions of the patient, and she expressed understanding and acceptance of my answers. GIOVAN[facility] [place] [facility] [address] [place] [id number] CNOV Observed: 09/13/2018 Status: COMPLETED Source: [place] 1:30 PM [facility] [place] REPOSITORY Office Visit (PULMWS) PRISCILLA SHARPE ([id number]) 1940 F Date Time Provider Department 09/13/18 1:30 PM AALIYAH STONE PULY[facility]anyWS During your visit today, we recorded the following information about you: Pulse Respiration Blood pressure Weight 65/minute 18/minute 126/62 68.5 kg Aaliyah Stone PA-C 09/13/2018 2:13 PM Signed [facility] [place], 09/13/18: HPI: The patient is here for follow up of COPD. The last Pulmonary Clinic visit was 07/15/18. Patient recently had mitral valve repair on 07/30/18, which was complicated by AFib. Since then the patient was evaluated 09/10/18 in secondary viral URI and treated with benzonatate and guaifenesin. Today, patient claims to be consistently compliant with prescribed maintenance Rx. Variable rescue bronchodilator use, increased in last few days. Increased cough with beige/brown, thick sputum. No hemoptysis or pleuritic chest pain. Wheezing. No dyspnea at rest. Exertional dyspnea has not changed. No fevers or chills. Wearing 2 L supplemental oxygen at night. DME: [employer]. PMH: Updated with patient today. FAMH: Updated with patient today. SOCH: Updated with patient today. Immunization History Administered Date(s) Administered Influenza 07/17/2015 Influenza Seasonal - High Dose - Age 65+ 08/23/2013 08/18/2017 08/03/2018 Influenza Seasonal Inj Age 3+ 07/17/2015 Influenza Vaccine, Split-Non Spec 07/17/2012 Pneumococcal-13 Vac Conjugate 09/01/2015 Pneumovax 06/13/2010 TD Adult 11/02/1994 07/19/2012 ROS: General: Generally feels fair. Appetite good. Weight stable. Eyes, Ears, nose, throat: No post nasal drip, rhinorrhea, purulent nasal discharge, epistaxis. No hoarseness. Vision stable. Cardiac: No angina, edema, orthopnea. GI: No heartburn, dysphagia, diarrhea. 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 Musculoskeletal: No pain. Neuro: No headache, focal weakness, tremor. Skin: No rash. Otherwise negative. Allergies were reviewed and updated, and medications were reconciled with the patient. PHYSICAL EXAMINATION: BP 126/62 Pulse 65 Resp 18 Wt 151 lb (68.5kg) SpO2 97% Gen: No acute distress. Cooperative with examination. ENT: Oral hygeine and dentition good. Pharynx clear. No halitosis. Resp: No stridor, accessory respiratory muscle use, supra- sternal or intercostal retractions. No wheezes, crackles. CV: Irregular rythm. Heart tones normal. Radial pulses normal. Abd: Non distended. MSK: No kyphoscoliosis. Ext: Warm and well perfused. No clubbing, cyanosis, edema. Skin: No rash, ecchymoses. Neuro: Mental status normal. Affect normal. No tremor. DATA REVIEW: Reviewed records, images and documentation from inpatient record and UC visit. IMPRESSION/RECOMMEND: COPD, moderate, with acute exacerbation. Most likely viral, however, with history of COPD, will treat for secondary bacterial infection. 1. Start Augmentin 1 tablet twice daily for 10 days. 2. Start Prednisone taper as directed. *Take half of Warfarin (Coumadin) dose while on antibiotic and prednisone. --If no improvement after antibiotic and prednisone taper, will check CXR. 3. Continue current maintenance Rx. Anoro Ellipta 1 inhalation once daily. 4. Continue Mucinex twice daily to assist with secretions. 5. Up to date on influenza and pneumonia vaccine. 6. Continue rescue inhaler as needed for relief of shortness of breath or wheezing, up to 4 times daily. 7. Re-assess in 6-8 weeks with lung function testing, sooner if needed. I addressed the questions of the patient, and she expressed understanding and acceptance of my answers. Aaliyah Stone PA-C [facility] [place] [facility] [address] [address] Aaliyah Stone PA-C 09/13/2018 2:12 PM Signed COPD, moderate, with acute exacerbation. Most likely viral, however, with history of COPD, will treat for secondary bacterial infection. 1. Start Augmentin 1 tablet twice daily for 10 days. 2. Start Prednisone taper as directed. *Take half of Warfarin (Coumadin) dose while on antibiotic and prednisone. --If no improvement after antibiotic and prednisone taper, will check CXR. 3. Continue current maintenance Rx. Anoro Ellipta 1 inhalation once daily. 4. Continue Mucinex twice daily to assist with secretions. 5. Up to date on influenza and pneumonia vaccine. 6. Continue rescue inhaler as needed for relief of shortness of breath or wheezing, up to 4 times daily. 7. Re-assess in 6-8 weeks with lung function testing, sooner if needed. Referring Provider: AALIYAH STONE [[id number]] Allergies As of Date: 09/13/2018 Noted Allergy Reaction ZYLOPRIM (ALLOPURINOL) 05/26/2017 2 - Rash environmental [Other] 12/30/2005 5 - Intolerance Comments: rhinitis TRAMADOL 03/10/2016 14 - Other: See Comments Comments: made patient woozy/dizzy Date Reviewed: 09/13/2018 Reviewed by: Aaliyah Stone - Fully Assessed Reason for Visit: Established Patient [175] Cmt: follow up from surgery Primary Visit Diagnosis:Chronic obstructive pulmonary disease with acute exacerbation (HCC) [J44.1] Order(s):amoxicillin-clavulanic acid (AUGMENTIN) 875-125 mg per tabletTake 1 tablet by mouth twice daily for 10 days.Disp: 20 tabletRfl: 0 predniSONE (DELTASONE) 10 mg tablet4 tablets daily for 3 days, 3 tablets daily for 3 days, 2 tablets daily for 3 days, 1 tablets daily for 3 days.Disp: 30 tabletRfl: 0 SPIROMETRY BASELINE ONLY [[id number]] Order #: [id number] FUTURE Prescriptions as of 09/13/2018 Sig: BENZONATATE 100 MG CAPSULE Take 1 capsule by mouth three* GUAIFENESIN ER 600 MG TABLET,* Take 1 tablet by mouth twice * ACETAMINOPHEN 325 MG TABLET 1-2 tablets by ORAL/FEEDING T* THERAPEUTIC MULTIVITAMIN TABL* Take 1 tablet by mouth daily * ASPIRIN 81 MG CHEWABLE TABLET Take 1 tablet by mouth once d* PANTOPRAZOLE 20 MG TABLET,DEL* Take 1 tablet by mouth DAILY * PAROXETINE 10 MG TABLET Take 1 tablet by mouth once d* POTASSIUM CHLORIDE ER 10 MEQ * Take 10 mEq by mouth once kodi* UMECLIDINIUM 62.5 MCG-VILANTE* Inhale one inhalation as inst* WARFARIN 2 MG TABLET Take 2 mg by mouth once daily. FUROSEMIDE 40 MG TABLET Take 1 tablet by mouth once d* MAGNESIUM OXIDE 400 MG (241.3* Take 1 tablet by mouth once d* ALBUTEROL SULFATE HFA 90 MCG/* Inhale 2 Puffs as instructed * CHOLECALCIFEROL (VITAMIN D3) * Take 1 capsule by mouth once * AMOXICILLIN 875 MG-POTASSIUM * Take 1 tablet by mouth twice * PREDNISONE 10 MG TABLET 4 tablets daily for 3 days, 3* Problem List As Of Date 09/13/2018 Noted Resolved FX LATERAL MALLEOLUS-CLOSE [S82.63XA] INVALID FOR*09/05/2008 ELEV BL PRES W/O HYPERTN [R03.0] INVALID FOR*10/06/2008 Unspecified disorder of bladder [N32.9] INVALID FOR*08/03/2018 More... Impaired fasting glucose [R73.01] INVALID FOR*08/03/2018 Essential hypertension [I10] INVALID FOR* Priority: A More... Osteoporosis [M81.0] INVALID FOR* More... Vitamin D deficiency [E55.9] INVALID FOR*08/03/2018 More... MR (mitral regurgitation) [I34.0] Priority: A More... IBS (irritable bowel syndrome) [K58.9] 08/03/2018 More... 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 Afib (HCC) [I48.91] INVALID FOR* Priority: A More... Pulmonary emphysema (HCC) [J43.9] INVALID FOR* Bone metastasis (HCC) [C79.51] INVALID FOR* More... 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 HOCM (hypertrophic obstructive cardiomyopathy) *INVALID FOR* Priority: A More... Discharge planning issues [Z02.9] INVALID FOR* Priority: D More... Preop testing [Z01.818] INVALID FOR*08/03/2018 Priority: A More... Encounter for preoperative anesthesiology asses*INVALID FOR* Cardiac insufficiency (HCC) [I50.9] INVALID FOR*07/31/2018 Priority: C More... On mechanically assisted ventilation (HCC) [Z99*INVALID FOR*07/31/2018 Priority: B More... Postoperative pain [G89.18] INVALID FOR*08/03/2018 Priority: D More... Stress hyperglycemia [R73.9] INVALID FOR*08/05/2018 Priority: C More... Hypovolemia/fluctuating lacic acidosis [E86.1] INVALID FOR*08/02/2018 Priority: F More... COPD (chronic obstructive pulmonary disease) (H*INVALID FOR* Priority: B More... Anxiety [F41.9] INVALID FOR* Priority: C More... Hypervolemia [E87.70] INVALID FOR*08/03/2018 Priority: F More... RADHA (acute kidney injury) ([facility]) [N17.9] INVALID FOR*08/05/2018 Priority: C More... Transition of care performed with sharing of cl*INVALID FOR* Priority: Very Severe More... S/P ventricular septal myectomy [Z98.890] INVALID FOR* Status post mitral valve repair [Z98.890] INVALID FOR* Other instructions from your clinician: COPD, moderate, with acute exacerbation. Most likely viral, however, with history of COPD, will treat for secondary bacterial infection. 1. Start Augmentin 1 tablet twice daily for 10 days. 2. Start Prednisone taper as directed. *Take half of Warfarin (Coumadin) dose while on antibiotic and prednisone. --If no improvement after antibiotic and prednisone taper, will check CXR. 3. Continue current maintenance Rx. Anoro Ellipta 1 inhalation once daily. 4. Continue Mucinex twice daily to assist with secretions. 5. Up to date on influenza and pneumonia vaccine. 6. Continue rescue inhaler as needed for relief of shortness of breath or wheezing, up to 4 times daily. 7. Re-assess in 6-8 weeks with lung function testing, sooner if needed. Prescriptions ordered this encounter Disp Refills Start End AMOXICILLIN 875 MG-POTASSIUM CLAVULA* 20 t* 0 09/13/2018 09/23/2018 Route: ORAL Sig: Take 1 tablet by mouth twice daily for 10 days. PREDNISONE 10 MG TABLET 30 t* 0 09/13/2018 Si tablets daily for 3 days, 3 tablets daily for 3 days, 2 tablets daily for 3 days, 1 tablets daily for 3 days. Medications Discontinued During This Encounter amoxicillin-clavulanic acid (AUGMENT* 20 t* 0 07/19/2012 09/13/2018 Route: ORAL Sig: Take 1 tablet by mouth twice daily for 10 days. Disc: Reason for discontinue is not on file. Disposition: Return in about 6 weeks (around 10/25/2018). Follow-up and Disposition History Recorded Encounter Status:Closed by AALIYAH STONE on 09/13/18 PROGRESS Observed: 09/10/2018 Status: COMPLETED Source: [place] 12:49 PM [facility] REPOSITORY HNO ID: [id number] Author: Vivek Cristina Service: (none) Author Type: Nurse Practitioner Type: Progress Notes Filed: 09/10/2018 1:02 PM Note Text: Subjective Priscilla Sharpe is a 78 year old female who presents with a sore throat and chest congestion which began yesterday. She has had a cough productive of clear sputum. She denies fever. PMH significant for aortic valve replacement surgery one month ago. The history is provided by the patient. Cough This is a new problem. The current episode started yesterday. The problem occurs hourly. The problem has not changed since onset.The cough is productive of sputum. There has been no fever. Associated symptoms include sore throat. Pertinent negatives include no chest pain, no chills, no sweats and no headaches. She has tried nothing for the symptoms. Review of Systems Constitutional: Negative for chills. HENT: Positive for congestion and sore throat. Respiratory: Positive for cough. Cardiovascular: Negative. Negative for chest pain and leg swelling. Neurological: Negative for headaches. BP 112/84 Pulse (!) 53 Temp 36.8 ?C (98.2 ?F) (Left Tympanic) Resp 16 Wt 68.5 kg (151 lb) SpO2 96% BMI 25.13 kg/m? 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 Monson follows for benign tumor removed 2002 - Unspecified essential hypertension 10/06/2008 PAST SURGICAL HISTORY Procedure Laterality Date - PAST SURGICAL HISTORY OF 2003 tumor removed from bladder ALLERGIES Zyloprim [Allopurinol]; Environmental [Other]; Tramadol MEDICATIONS acetaminophen (TYLENOL) 325 mg tablet 1-2 tablets by ORAL/FEEDING TUBE route every 4 hours as needed for Pain (for mild to moderate pain). therapeutic multivitamin (THERA VITAMIN) tablet Take 1 tablet by mouth daily with breakfast. aspirin 81 mg chewable tablet Take 1 tablet by mouth once daily. pantoprazole DR (PROTONIX) 20 mg tablet Take 1 tablet by mouth DAILY (6 AM). PARoxetine (PAXIL) 10 mg tablet Take 1 tablet by mouth once daily. potassium chloride (K-TAB) 10 mEq tablet Take 10 mEq by mouth once daily. umeclidinium-vilanterol (ANORO ELLIPTA) 62.5-25 mcg/actuation inhaler Inhale one inhalation as instructed once daily warfarin (COUMADIN) 2 mg tablet Take 2 mg by mouth once daily. furosemide (LASIX) 40 mg tablet Take 1 tablet by mouth once daily. magnesium oxide (MAGOX) 400 mg tablet Take 1 tablet by mouth once daily. albuterol HFA (VENTOLIN HFA) 90 mcg/actuation inhaler Inhale 2 Puffs as instructed every 4 hours as needed for Wheezing/Shortness of Breath. Cholecalciferol, Vitamin D3, 1,000 unit cap Take 1 capsule by mouth once daily. FAMILY HISTORY Problem Relation Age of Onset - None Father - None Mother - other (Myocardial infarction) Paternal Grandmother 80 Social History Substance Use Topics - Smoking status: Former Smoker Packs/day: 1.00 Years: 58.00 Types: Cigarettes Start date: 1955 Quit date: 07/02/2013 - Smokeless tobacco: Never Used Comment: No smoking in childhood home. Spouse quit smoking years before patient did. - Alcohol use Yes Comment: occasional Objective Physical Exam Constitutional: She is well-developed, well-nourished, and in no distress. HENT: Nose: Nose normal. No rhinorrhea. Mouth/Throat: Uvula is midline, oropharynx is clear and moist and mucous membranes are normal. No oropharyngeal exudate, posterior oropharyngeal edema or posterior oropharyngeal erythema. Cardiovascular: Normal rate. Pulmonary/Chest: Effort normal and breath sounds normal. No respiratory distress. She has no wheezes. She has no rales. Lymphadenopathy: She has no cervical adenopathy. Neurological: She is alert. Skin: Skin is warm and dry. Nursing note and vitals reviewed. ASSESSMENT/PLAN: 1. Viral URI with cough - ICD9: 465.9, ICD10: J06.9, B97.89 - Discussed viral etiology and rationale for treatment. - Symptomatic treatment with prn analgesia - Supportive care with fluids and rest - BENZONATATE 100 MG CAPSULE - GUAIFENESIN ER 600 MG TABLET, EXTENDED RELEASE 12 HR - Follow-up with your PCP in 3-5 days if symptoms have not improved or sooner if symptoms worsen - Discussed red flags and need for immediate medical evaluation if any occur. - Discussed supportive care treatment with fluids, rest and analgesia. - Discussed expected course of illness Vivek Cristina APRN.COLLECTION ANALYST CNOV Observed: 09/10/2018 Status: COMPLETED Source: [place] 12:30 PM [facility] REPOSITORY Office Visit (WSTR) PRISCILLA SHARPE ([id number]) 1940 F Date Time Provider Department 09/10/18 12:30 PM VIVEK CRISTINA ([facility]) [facility] During your visit today, we recorded the following information about you: Temperature Pulse Respiration Blood pressure 98.2 degrees 53/minute 16/minute 112/84 Weight 68.5 kg Vivek Cristina APRN.JEREMÍAS 09/10/2018 1:02 PM Signed Subjective Priscilla Sharpe is a 78 year old female who presents with a sore throat and chest congestion which began yesterday. She has had a cough productive of clear sputum. She denies fever. PMH significant for aortic valve replacement surgery one month ago. The history is provided by the patient. Cough This is a new problem. The current episode started yesterday. The problem occurs hourly. The problem has not changed since onset.The cough is productive of sputum. There has been no fever. Associated symptoms include sore throat. Pertinent negatives include no chest pain, no chills, no sweats and no headaches. She has tried nothing for the symptoms. Review of Systems Constitutional: Negative for chills. HENT: Positive for congestion and sore throat. Respiratory: Positive for cough. Cardiovascular: Negative. Negative for chest pain and leg swelling. Neurological: Negative for headaches. BP 112/84 Pulse (!) 53 Temp 36.8 ?C (98.2 ?F) (Left Tympanic) Resp 16 Wt 68.5 kg (151 lb) SpO2 96% BMI 25.13 kg/m? 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 Monson follows for benign tumor removed 2002 - Unspecified essential hypertension 10/06/2008 PAST SURGICAL HISTORY Procedure Laterality Date - PAST SURGICAL HISTORY OF 2003 tumor removed from bladder ALLERGIES Zyloprim [Allopurinol]; Environmental [Other]; Tramadol MEDICATIONS acetaminophen (TYLENOL) 325 mg tablet 1-2 tablets by ORAL/FEEDING TUBE route every 4 hours as needed for Pain (for mild to moderate pain). therapeutic multivitamin (THERA VITAMIN) tablet Take 1 tablet by mouth daily with breakfast. aspirin 81 mg chewable tablet Take 1 tablet by mouth once daily. pantoprazole DR (PROTONIX) 20 mg tablet Take 1 tablet by mouth DAILY (6 AM). PARoxetine (PAXIL) 10 mg tablet Take 1 tablet by mouth once daily. potassium chloride (K-TAB) 10 mEq tablet Take 10 mEq by mouth once daily. umeclidinium-vilanterol (ANORO ELLIPTA) 62.5-25 mcg/actuation inhaler Inhale one inhalation as instructed once daily warfarin (COUMADIN) 2 mg tablet Take 2 mg by mouth once daily. furosemide (LASIX) 40 mg tablet Take 1 tablet by mouth once daily. magnesium oxide (MAGOX) 400 mg tablet Take 1 tablet by mouth once daily. albuterol HFA (VENTOLIN HFA) 90 mcg/actuation inhaler Inhale 2 Puffs as instructed every 4 hours as needed for Wheezing/Shortness of Breath. Cholecalciferol, Vitamin D3, 1,000 unit cap Take 1 capsule by mouth once daily. FAMILY HISTORY Problem Relation Age of Onset - None Father - None Mother - other (Myocardial infarction) Paternal Grandmother 80 Social History Substance Use Topics - Smoking status: Former Smoker Packs/day: 1.00 Years: 58.00 Types: Cigarettes Start date: 1955 Quit date: 07/02/2013 - Smokeless tobacco: Never Used Comment: No smoking in childhood home. Spouse quit smoking years before patient did. - Alcohol use Yes Comment: occasional Objective Physical Exam Constitutional: She is well-developed, well-nourished, and in no distress. HENT: Nose: Nose normal. No rhinorrhea. Mouth/Throat: Uvula is midline, oropharynx is clear and moist and mucous membranes are normal. No oropharyngeal exudate, posterior oropharyngeal edema or posterior oropharyngeal erythema. Cardiovascular: Normal rate. Pulmonary/Chest: Effort normal and breath sounds normal. No respiratory distress. She has no wheezes. She has no rales. Lymphadenopathy: She has no cervical adenopathy. Neurological: She is alert. Skin: Skin is warm and dry. Nursing note and vitals reviewed. ASSESSMENT/PLAN: 1. Viral URI with cough - ICD9: 465.9, ICD10: J06.9, B97.89 - Discussed viral etiology and rationale for treatment. - Symptomatic treatment with prn analgesia - Supportive care with fluids and rest - BENZONATATE 100 MG CAPSULE - GUAIFENESIN ER 600 MG TABLET, EXTENDED RELEASE 12 HR - Follow-up with your PCP in 3-5 days if symptoms have not improved or sooner if symptoms worsen - Discussed red flags and need for immediate medical evaluation if any occur. - Discussed supportive care treatment with fluids, rest and analgesia. - Discussed expected course of illness ROSARIO Child APRN.CNP 09/10/2018 12:55 PM Signed ASSESSMENT/PLAN: 1. Viral URI with cough - ICD9: 465.9, ICD10: J06.9, B97.89 - Discussed viral etiology and rationale for treatment. - Symptomatic treatment with prn analgesia - Supportive care with fluids and rest - BENZONATATE 100 MG CAPSULE - GUAIFENESIN ER 600 MG TABLET, EXTENDED RELEASE 12 HR - Follow-up with your PCP in 3-5 days if symptoms have not improved or sooner if symptoms worsen - Discussed red flags and need for immediate medical evaluation if any occur. - Discussed supportive care treatment with fluids, rest and analgesia. - Discussed expected course of illness Vivek Cristina APRN.CNP Treatment for Viral Upper Respiratory Tract Infections Your body will kill off the virus by itself. Additionally, you can prime your body's immune system. This may help you get better more quickly. 1. Drink lots of fluids - at least one gallon of non-caffeinated liquids per day 2. Make sure you are eating well 3. Get plenty of rest - at least 8 hours of sleep per night for adults and more for children We do not have any medications that kill off these viruses. Antibiotics are used to treat bacterial infections; however, they are not active against viral infections. There are some things that might help you feel better, though. 1. Vaporizers, humidifiers, hot showers, and hot fluids help open respiratory and sinus passages 2. [place] Nasal [place] may offer relief of nasal and head congestion 3. Glenn's Vapor Rub placed on a hot towel and draped over the head may relieve congestion 4. Tylenol and Advil help control fevers and headaches 5. Salt water gargles help relieve sore throats 6. Chloraceptic spray or throat lozenges may also help relieve sore throat symptoms 7. Mucinex will help loosen up secretions and also provide relief from a cough Occasionally, viral infections turn into something more serious. You should see your doctor or return to the Urgent Care if: 1. You have fevers for longer than five days 2. You have fevers above 102 degrees 3. You are still sick after 10 days 4. You have shortness of breath or wheezing 5. After several days you are getting worse rather than better Referring Provider: SELF [[id number]] Allergies As of Date: 09/10/2018 Noted Allergy Reaction ZYLOPRIM (ALLOPURINOL) 05/26/2017 2 - Rash environmental [Other] 12/30/2005 5 - Intolerance Comments: rhinitis TRAMADOL 03/10/2016 14 - Other: See Comments Comments: made patient woozy/dizzy Date Reviewed: 09/10/2018 Reviewed by: Vivek ([facility]) Ibeth - Fully Assessed Reason for Visit: Cough [28] Primary Visit Diagnosis:Viral URI with cough [J06.9, B97.89] Order(s):benzonatate (TESSALON PERLE) 100 mg capsuleTake 1 capsule by mouth three times daily as needed for up to 10 days.Disp: 30 capsuleRfl: 0 guaiFENesin (MUCINEX) 600 mg 12 hr tabletTake 1 tablet by mouth twice daily for 10 days.Disp: 20 tabletRfl: 0 Prescriptions as of 09/10/2018 Sig: ACETAMINOPHEN 325 MG TABLET 1-2 tablets by ORAL/FEEDING T* THERAPEUTIC MULTIVITAMIN TABL* Take 1 tablet by mouth daily * ASPIRIN 81 MG CHEWABLE TABLET Take 1 tablet by mouth once d* PANTOPRAZOLE 20 MG TABLET,DEL* Take 1 tablet by mouth DAILY * PAROXETINE 10 MG TABLET Take 1 tablet by mouth once d* POTASSIUM CHLORIDE ER 10 MEQ * Take 10 mEq by mouth once kodi* UMECLIDINIUM 62.5 MCG-VILANTE* Inhale one inhalation as inst* WARFARIN 2 MG TABLET Take 2 mg by mouth once daily. FUROSEMIDE 40 MG TABLET Take 1 tablet by mouth once d* MAGNESIUM OXIDE 400 MG (241.3* Take 1 tablet by mouth once d* ALBUTEROL SULFATE HFA 90 MCG/* Inhale 2 Puffs as instructed * CHOLECALCIFEROL (VITAMIN D3) * Take 1 capsule by mouth once * BENZONATATE 100 MG CAPSULE Take 1 capsule by mouth three* GUAIFENESIN ER 600 MG TABLET,* Take 1 tablet by mouth twice * Problem List As Of Date 09/10/2018 Noted Resolved FX LATERAL MALLEOLUS-CLOSE [S82.63XA] INVALID FOR*09/05/2008 ELEV BL PRES W/O HYPERTN [R03.0] INVALID FOR*10/06/2008 Unspecified disorder of bladder [N32.9] INVALID FOR*08/03/2018 More... Impaired fasting glucose [R73.01] INVALID FOR*08/03/2018 Essential hypertension [I10] INVALID FOR* Priority: A More... Osteoporosis [M81.0] INVALID FOR* More... Vitamin D deficiency [E55.9] INVALID FOR*08/03/2018 More... MR (mitral regurgitation) [I34.0] Priority: A More... IBS (irritable bowel syndrome) [K58.9] 08/03/2018 More... 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 Afib (HCC) [I48.91] INVALID FOR* Priority: A More... Pulmonary emphysema (HCC) [J43.9] INVALID FOR* Bone metastasis (HCC) [C79.51] INVALID FOR* More... 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 HOCM (hypertrophic obstructive cardiomyopathy) *INVALID FOR* Priority: A More... Discharge planning issues [Z02.9] INVALID FOR* Priority: D More... Preop testing [Z01.818] INVALID FOR*08/03/2018 Priority: A More... Encounter for preoperative anesthesiology asses*INVALID FOR* Cardiac insufficiency (HCC) [I50.9] INVALID FOR*07/31/2018 Priority: C More... On mechanically assisted ventilation (HCC) [Z99*INVALID FOR*07/31/2018 Priority: B More... Postoperative pain [G89.18] INVALID FOR*08/03/2018 Priority: D More... Stress hyperglycemia [R73.9] INVALID FOR*08/05/2018 Priority: C More... Hypovolemia/fluctuating lacic acidosis [E86.1] INVALID FOR*08/02/2018 Priority: F More... COPD (chronic obstructive pulmonary disease) (H*INVALID FOR* Priority: B More... Anxiety [F41.9] INVALID FOR* Priority: C More... Hypervolemia [E87.70] INVALID FOR*08/03/2018 Priority: F More... RADHA (acute kidney injury) (HCC) [N17.9] INVALID FOR*08/05/2018 Priority: C More... Transition of care performed with sharing of cl*INVALID FOR* Priority: Very Severe More... S/P ventricular septal myectomy [Z98.890] INVALID FOR* Status post mitral valve repair [Z98.890] INVALID FOR* Other instructions from your clinician: ASSESSMENT/PLAN: 1. Viral URI with cough - ICD9: 465.9, ICD10: J06.9, B97.89 - Discussed viral etiology and rationale for treatment. - Symptomatic treatment with prn analgesia - Supportive care with fluids and rest - BENZONATATE 100 MG CAPSULE - GUAIFENESIN ER 600 MG TABLET, EXTENDED RELEASE 12 HR - Follow-up with your PCP in 3-5 days if symptoms have not improved or sooner if symptoms worsen - Discussed red flags and need for immediate medical evaluation if any occur. - Discussed supportive care treatment with fluids, rest and analgesia. - Discussed expected course of illness Vivek Cristina APRN.COLLECTION ANALYST Treatment for Viral Upper Respiratory Tract Infections Your body will kill off the virus by itself. Additionally, you can prime your body's immune system. This may help you get better more quickly. 1. Drink lots of fluids - at least one gallon of non-caffeinated liquids per day 2. Make sure you are eating well 3. Get plenty of rest - at least 8 hours of sleep per night for adults and more for children We do not have any medications that kill off these viruses. Antibiotics are used to treat bacterial infections; however, they are not active against viral infections. There are some things that might help you feel better, though. 1. Vaporizers, humidifiers, hot showers, and hot fluids help open respiratory and sinus passages 2. [place] Nasal [place] may offer relief of nasal and head congestion 3. Glenn's Vapor Rub placed on a hot towel and draped over the head may relieve congestion 4. Tylenol and Advil help control fevers and headaches 5. Salt water gargles help relieve sore throats 6. Chloraceptic spray or throat lozenges may also help relieve sore throat symptoms 7. Mucinex will help loosen up secretions and also provide relief from a cough Occasionally, viral infections turn into something more serious. You should see your doctor or return to the Urgent Care if: 1. You have fevers for longer than five days 2. You have fevers above 102 degrees 3. You are still sick after 10 days 4. You have shortness of breath or wheezing 5. After several days you are getting worse rather than better Prescriptions ordered this encounter Disp Refills Start End BENZONATATE 100 MG CAPSULE 30 c* 0 09/10/2018 09/20/2018 Route: ORAL Sig: Take 1 capsule by mouth three times daily as needed for up to 10 days. GUAIFENESIN ER 600 MG TABLET, EXTEND* 20 t* 0 09/10/2018 09/20/2018 Route: ORAL Sig: Take 1 tablet by mouth twice daily for 10 days. Encounter Status:Closed by VIVEK CRISTINA on 09/10/18 PROTIME Collected: 09/06/2018 Status: F Source: [place] 12:26 PM [facility] [place] REPOSITORY TYPE CODE TESTS RESULT OUT OF RANGE REFERENCE UNITS LAB PSEC 9.7-13.0 sec High PT Sec 23.1 LAB INR 0.9-1.3 High PT INR 2.3 Result Comment: Vitamin K Antagonist (VKA) Therapeutic Range: INR 2 to 3 (Target INR of 2.5) Note: For patients treated with VKA drugs, such as warfarin, the [place] [employer] 2012 Guideline recommends a therapeutic INR range of 2 to 3 (target INR of 2.5). This recommendation includes high-risk patients with antiphospholipid syndrome with previous arterial or venous thromboembolism, current-generation mechanical or bioprosthetic aortic heart valve replacement. Note: Patients with mechanical aortic valve replacement and additional risk factors for thromboembolic events (atrial fibrillation, previous thromboembolism, LV dysfunction, hypercoagulable conditions) or an older generation mechanical AVR (i.e., ball in-Cage) or any mechanical MVR should have a INR therapeutic range of 2.5 to 3.5 (target INR of 3). Toni ROBISON, et al. Chest 2012, 141:7S-47S Lilli RA, et al. [facility] 2017, 70: 252-289 Performed By: #### PT #### [facility] [address] [place], [place] [address] PROGRESS Observed: 09/02/2018 Status: COMPLETED Source: [place] 3:45 PM [facility] REPOSITORY HNO ID: [id number] Author: Anand Mejía RN Service: (none) Author Type: (none) Type: Progress Notes Filed: 09/02/2018 3:45 PM Note Text: See phone note for today for instructions Anand Mejía RN PROGRESS Observed: 09/02/2018 Status: COMPLETED Source: [place] 3:44 PM [facility] REPOSITORY HNO ID: [id number] Author: Anand Mejía RN Service: (none) Author Type: (none) Type: Progress Notes Filed: 09/02/2018 3:45 PM Note Text: This note was created using NoteWriter. Subjective Priscilla Sharpe is a 78 year old female. Review of Systems Objective There were no vitals taken for this visit. Physical Exam Assessment and Plan PROGRESS Observed: 09/02/2018 Status: COMPLETED Source: [place] 3:27 PM [facility] REPOSITORY HNO ID: [id number] Author: Portia Theodore RN Service: (none) Author Type: (none) Type: Progress Notes Filed: 09/02/2018 3:28 PM Note Text: patient had inr completed at [facility] patients inr is 3.4 (patients inr range is 2.0-3.0) patient is currently taking 1mg alternating with 2mg patients last dose change was on 08/26/18 due to a high level of 3.6 (dose at that time was 2mg daily) patient has had no changes in medication and no missed doses and no change in diet - Mondays inr level of 3.1 Advised patient that they would be contacted regarding medication dose and when to follow up after information is reviewed by provider. After provider review please contact the patient with information and schedule follow up appointment with coumadin clinic. PROGRESS Observed: 08/30/2018 Status: COMPLETED Source: [place] 1:52 PM [facility] REPOSITORY HNO ID: [id number] Author: Yemi Dent MA Service: (none) Author Type: (none) Type: Progress Notes Filed: 08/30/2018 1:53 PM Note Text: Please see phone encounter. Yemi Dent MA PROGRESS Observed: 08/30/2018 Status: COMPLETED Source: [place] 1:26 PM [facility] REPOSITORY HNO ID: [id number] Author: Portia Theodore RN Service: (none) Author Type: (none) Type: Progress Notes Filed: 08/30/2018 1:36 PM Note Text: patient had inr completed at [facility] patients inr is 3.1 (patients inr range is 2.0-3.0) patient is currently taking 1mg alternating with 2mg patients last dose change was on 08/26/18 due to a high level of 3.6 (dose at that time was 2mg daily) patient has had no changes in medication except for coumadin and no change in diet Advised patient that they would be contacted regarding medication dose and when to follow up after information is reviewed by provider. After provider review please contact the patient with information and schedule follow up appointment with coumadin clinic. INITAL EVALUATION (1) Observed: 08/27/2018 Status: F Source: [place] - [place] 3:27 PM [facility] REPOSITORY [facility] [address] [place], [place] [address] Fax REHABILITATION SERVICES INITIAL EVALUATION MR#: [id number] Acct: [id number] Name: PRISCILLA SHARPE Rep #: [id number] : 1940 78 From: Mani Serrano PT, Cert. MDT, OCS Referring Dr.: Can Smith MD Status: REG RCR Insurance: [employer] PLAN HMO SELF PAY INSURANCE Patient's Visit Information PRISCILLA SHARPE is a 78 year old F referred to Physical Therapy by Can Smith with a diagnosis of COPD,CHF. Date of Evaluation: 08/24/18 Physical Therapist: Mani Serrano PT, - Visit Plan Frequency: 2x /Week Duration: 4 Weeks Plan: STERNAL PRECAUTIONS -OPEN HEART SURGERY -JUL 30 2018. CARDIAC PRECAUTIONS. LE strengthening,endurance program,functional ex's - Subjective Subjective: This 78 y/o female presents to physical therapy with CHF and COPD. Patient had open heart surgery with septal myoectomy ,mitrovlave repair and left atrial appendage clipping on Jul 30 at [facility] ,then d/c to to TCU at [facility] for rehab. Patient D/C to home 08/16/18.Patient has FWW when d/c with sternal precaution to lifting greater 5# , arms 90 degrees. Patient friends provide meals. Patient has cleaning lady. Patient able Independant with bathing,dressing.Prior to surgery patient was SOB with activity: Denies parathesia/tingling ,occassiolly in hands. Patient sleeping good. No SOB but extended distance mild distance.Patient has multiple comorbities to influence condition and current impairments cause deficits in ADL's and QOL. SOCIAL: . VOCATION: retired - Pain Bilateral Shoulder Pain Intensity (Out of 10): 2 Pain Intensity Range: 5 - Objective POSTURE: mild foward. STRERNAL INSCION: well approximate. NEURO: denies parathesia/tinglintg ,intact. GAIT: normal emmy reciprocal pattern. AROM: BUE. MMT BUE : 4/5,quads/hams/hip 4/5 ankle 4/5. HR 60 irregular at rest - Goals Goal 1:: Independant with HEP Goal Time Frame: 4-6 Weeks Goal 2:: Patient to be Indepoendant with posture for ADLS Goal Time Frame: 4-6 Weeks Goal 3:: Patient improve functional endurance for activity to good - with min SOB with activity . Goal Time Frame: 4-6 Weeks Goal 4:: Patient be able to perform ADL'S and function with min limitations. Goal Time Frame: 4-6 Weeks Goal 5:: Patient to improve LFES score by 10-15 points to improve QOL Goal Time Frame: 4-6 Weeks - Rehabilitation Potential Physical Therapy Diagnosis: This patient underwent s/p open heart surgery myoectomy ,mitrovalve repair,left appendage clipping Sept 28 with sternal precautions with impairments with functional endurance with acticivity Rehabilitation Potential: Good - Anticipated Interventions Patient/Client Instruction: Educate patient on: Condition, Plan of Care For the Purpose of:: To decrease pain, To increase ROM, To improve muscle performance and motor function, To improve ability to perform ADL's, To increase tolerance to activity/condition/position, To improve ability of physical actions for home/community/work/leisure, To improve health of tissue, To decrease soft tissue restriction, To improve ability to perform tasks related to life management Therapeutic Exercise to Include: Strength training, Endurance training, Balance training For the Purpose of:: To improve muscle performance and motor function, To improve ability to perform ADL's, To increase tolerance to activity/condition/position, To improve ability of physical actions for home/community/work/leisure, To increase flexibility/ROM, To improve endurance, To improve balance, To improve ability to perform tasks related to life management Thank you for the opportunity to evaluate your patient. For Medicare and Medicare HMO plans, please review the plan of care and approve it. It will need to be FAXED BACK to us at [phone] for Medicare purposes. Please let me know if there are questions or concerns regarding this plan of care. Physician Signature: Date: <Electronically signed by Mani Serrano PT, Cert. MDT, OCS> 08/27/18 1527 CC: Alisia Pacheco MD; Can Smith MD JERI Signed For Medicare only, by signing this I certify the plan of care. Physicians Signature Date PROGRESS Observed: 08/27/2018 Status: COMPLETED Source: [place] 12:22 PM [facility] REPOSITORY HNO ID: [id number] Author: Jerad (Customer Logistics Manager) Nii Service: (none) Author Type: Nurse Specialist Type: Progress Notes Filed: 08/27/2018 1:17 PM Note Text: OUTPATIENT VISIT DATE August 27, 2018 OUTPATIENT VISIT TYPE ESTABLISHED PRIMARY CARE PHYSICIAN: Alisia Pacheco MD CHIEF COMPLAINT: Patient presents with: Hospital F/U History of Present Illness: Priscilla Sharpe is a 78 year old female who was last seen 06/2018 in . 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) (Hcc) Discharge Planning Issues Encounter for Preoperative Anesthesiology Assessment for Cardiac Surgery Copd (Chronic Obstructive Pulmonary Disease) (Hcc) Anxiety Transition of Care Performed With Sharing of Clinical Summary S/P July 30, 2018 Surgeon(s) and Role: Jamie Jo - Primary OPERATION: Septal myectomy and mitral valve repair consisting of excision of a prolapsing segment of the P3 scallop of the mitral valve, annuloplasty with a #33 Rm band, bilateral pulmonary vein isolation with multiple upper occasions of the AtriCure radiofrequency clamp and clipping of the left atrial appendage with a 50 mm AtriCure clip Recovery was complicated by atrial fibrillation, FVO, acute kidney injury Consult was made to electrophysiology for atrial fibrillation with slow ventricular response. Discharged to [facility] TCU 08/06/2018, discharged to home with PT 08/17/2018. Regular diet 2000 ml fluid restriction. Chest x-ray on August 12 showed atelectatic changes in the left lung had resolved. August 14 labs WBC is 10.8 hemoglobin 9.2 hematocrit 30.2 platelets 434 glucose 93 BUN 22 creatinine 0.87 calcium 8.6 sodium 142 potassium 4.0 chloride 102 CO2 31 9 INR 3.2. PT INR Date Value Ref Range Status 08/23/2018 2.2 (H) 0.9 - 1.3 Final Comment: Vitamin K Antagonist (VKA) Therapeutic Range: INR 2 to 3 (Target INR of 2.5) Note: For patients treated with VKA drugs, such as warfarin, the [place] [employer] 2012 Guideline recommends a therapeutic INR range of 2 to 3 (target INR of 2.5). This recommendation includes high-risk patients with antiphospholipid syndrome with previous arterial or venous thromboembolism, current-generation mechanical or bioprosthetic aortic heart valve replacement. Note: Patients with mechanical aortic valve replacement and additional risk factors for thromboembolic events (atrial fibrillation, previous thromboembolism, LV dysfunction, hypercoagulable conditions) or an older generation mechanical AVR (i.e., ball in-Cage) or any mechanical MVR should have a INR therapeutic range of 2.5 to 3.5 (target INR of 3). Toni GH, et al. Chest 2012, 141:7S-47S Lilli WALDRON et al. [facility] 2017, 70: 252-289 INR (POCT) Date Value Ref Range Status 08/26/2018 3.6 (H) 0.8 - 1.2 Final Today reports she feels as if she is improving. She reports breathing is improved. She reports sternotomy is currently without pain. She is having some neck and shoulder pain following surgery but this is improving. She been taking Tylenol with some relief. No reported dizziness lightheadedness palpitations edema. She reports fluid restriction as advised. Weight is stable. Eating regular diet. No constipation. Reports getting about her home well. She is walking with a cane. She plans to go to [facility] for cardiac rehabilitation. No current low back pain. No recent hospital or ED visits. No new medical problems or medications. Able to obtain medications. No problems with taking medications or note side effects. 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 Monson follows for benign tumor removed 2002 - Unspecified essential hypertension 10/06/2008 PAST SURGICAL HISTORY Procedure Laterality Date - PAST SURGICAL HISTORY OF 2003 tumor removed from bladder FAMILY HISTORY Problem Relation Age of Onset - None Father - None Mother - other (Myocardial infarction) Paternal Grandmother 80 Social History Substance Use Topics - Smoking status: Former Smoker Packs/day: 1.00 Years: 58.00 Types: Cigarettes Start date: 1955 Quit date: 07/02/2013 - Smokeless tobacco: Never Used Comment: No smoking in childhood home. Spouse quit smoking years before patient did. - Alcohol use Yes Comment: occasional ALLERGIES: ALLERGIES Allergen Reactions - Zyloprim [Allopurin* Rash - Environmental [Othe* Intolerance rhinitis - Tramadol Other: See Comments made patient woozy/dizzy MEDICATIONS acetaminophen (TYLENOL) 325 mg tablet 1-2 tablets by ORAL/FEEDING TUBE route every 4 hours as needed for Pain (for mild to moderate pain). therapeutic multivitamin (THERA VITAMIN) tablet Take 1 tablet by mouth daily with breakfast. aspirin 81 mg chewable tablet Take 1 tablet by mouth once daily. pantoprazole DR (PROTONIX) 20 mg tablet Take 1 tablet by mouth DAILY (6 AM). PARoxetine (PAXIL) 10 mg tablet Take 1 tablet by mouth once daily. potassium chloride (K-TAB) 10 mEq tablet Take 10 mEq by mouth once daily. umeclidinium-vilanterol (ANORO ELLIPTA) 62.5-25 mcg/actuation inhaler Inhale one inhalation as instructed once daily warfarin (COUMADIN) 2 mg tablet Take 2 mg by mouth once daily. furosemide (LASIX) 40 mg tablet Take 1 tablet by mouth once daily. magnesium oxide (MAGOX) 400 mg tablet Take 1 tablet by mouth once daily. albuterol HFA (VENTOLIN HFA) 90 mcg/actuation inhaler Inhale 2 Puffs as instructed every 4 hours as needed for Wheezing/Shortness of Breath. Cholecalciferol, Vitamin D3, 1,000 unit cap Take 1 capsule by mouth once daily. REVIEW OF SYSTEMS: GENERAL: Negative for: Weight loss or gain, Fever or Chills, Weakness and Sleep difficulties. Physical Examination: BP 114/68 Pulse 56 Resp 16 Wt 148 lb (67.1kg) General appearance: Well appearing, alert, in no acute distress, well-hydrated, well nourished. Skin: Skin color, texture, turgor normal, no suspicious rashes or lesions Neck: Supple, no adenopathy; thyroid symmetric, normal size, no bruits Lungs: Lungs clear to auscultation. No wheezing, rhonchi, rales Heart: RRR without murmur, gallop, or rubs. No ectopy Abdomen: Abdomen soft, non-tender. Bowel sounds normal. No masses, organomegaly Extremities: No edema, skin discoloration, clubbing or cyanosis. Good capillary refill. Peripheral pulses: Normal Neuro: Gait normal. Sensation grossly intact. Reviewed chart, outside records, tests I personally interviewed, confirmed and edited the above information if obtained by others. TESTING: Glucose (mg/dL) Date Value 08/19/2018 98 Potassium (mmol/L) Date Value 08/19/2018 4.4 Sodium (mmol/L) Date Value 08/19/2018 142 Chloride (mmol/L) Date Value 08/19/2018 101 CO2 (mmol/L) Date Value 08/19/2018 25 Creatinine (mg/dL) Date Value 08/19/2018 0.99 BUN (mg/dL) Date Value 08/19/2018 17 Anion Gap (mmol/L) Date Value 08/19/2018 16 Calcium (mg/dL) Date Value 08/19/2018 9.4 Glucose (mg/dL) Date Value 08/19/2018 98 Potassium (mmol/L) Date Value 08/19/2018 4.4 Sodium (mmol/L) Date Value 08/19/2018 142 Chloride (mmol/L) Date Value 08/19/2018 101 CO2 (mmol/L) Date Value 08/19/2018 25 Creatinine (mg/dL) Date Value 08/19/2018 0.99 BUN (mg/dL) Date Value 08/19/2018 17 Anion Gap (mmol/L) Date Value 08/19/2018 16 Calcium (mg/dL) Date Value 08/19/2018 9.4 Protein, Total (g/dL) Date Value 08/19/2018 6.9 Albumin (g/dL) Date Value 08/19/2018 3.8 Bilirubin, Total (mg/dL) Date Value 08/19/2018 0.4 Alkaline Phosphatase (U/L) Date Value 08/19/2018 128 AST (U/L) Date Value 08/19/2018 25 ALT (U/L) Date Value 08/19/2018 14 08/19/2018 15 Hemoglobin (g/dL) Date Value 08/19/2018 11.6 Hematocrit (%) Date Value 08/19/2018 40.6 WBC (k/uL) Date Value 08/19/2018 11.73 Cholesterol, Total (mg/dL) Date Value 08/23/2018 159 HDL Cholesterol (mg/dL) Date Value 08/23/2018 40 LDL Cholesterol (mg/dL) Date Value 08/23/2018 86 Triglyceride (mg/dL) Date Value 08/23/2018 166 Hemoglobin A1C Date Value Ref Range Status 09/03/2016 Test sent to [facility]. 4.0 - 6.0 % Final Comment: Account Credited [facility] 12/04/2014 Test sent to [facility]. 4.0 - 6.0 % Final Comment: Account Credited [facility] Ejection Fraction - Result: 74 % Date: 08/06/2018 Time: 09:21:42 IMPRESSION: Ms. Sharpe is a 78 year old woman presents for TCU follow up s/p myectomy, MV repair. After my examination and review of data, I make the following recommendations. PLAN AND RECOMMENDATIONS: 1. Atrial fibrillation, unspecified type (HCC) - ICD9: 427.31, ICD10: I48.91 (primary diagnosis) 2. S/P ventricular septal myectomy - ICD9: V45.89, ICD10: Z98.890 3. Status post mitral valve repair - ICD9: V45.89, ICD10: Z98.890 4. Blood loss anemia - ICD9: 280.0, ICD10: D50.0 Discharged to rehabilitation following surgery and doing well now Blood loss anemia is resolving All wounds are healing well Mobility is improving, plans on going to [facility] Has resumed diet, maintaining fluid restriction Neck an shoulder pain currently controlled with tylenol Consideration for possible cardioversion, following with Dr. Argueta. Advised to go to ER if develops chest pain, shortness of breath, or severe worsening of symptoms. Discussed risks, benefits, alternatives, and potential side effects of medications. Ms. Sharpe expressed understanding and agreed with the plan. Jerad Bales APRN.SOUND CONTROLLER CNOV Observed: 08/27/2018 Status: COMPLETED Source: [place] 12:20 PM [facility] REPOSITORY Office Visit (INTMWS) PRISCILLA SHARPE ([id number]) 1940 F Date Time Provider Department 08/27/18 12:20 PM JERAD BALES ([facility]) INTMWS During your visit today, we recorded the following information about you: Pulse Respiration Blood pressure Weight 56/minute 16/minute 114/68 67.1 kg Jerad Bales APRN.CNS 08/27/2018 1:17 PM Signed OUTPATIENT VISIT DATE August 27, 2018 OUTPATIENT VISIT TYPE ESTABLISHED PRIMARY CARE PHYSICIAN: Alisia Pacheco MD CHIEF COMPLAINT: Patient presents with: Hospital F/U History of Present Illness: Priscilla Sharpe is a 78 year old female who was last seen 06/2018 in . 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) (Hcc) Discharge Planning Issues Encounter for Preoperative Anesthesiology Assessment for Cardiac Surgery Copd (Chronic Obstructive Pulmonary Disease) (Hcc) Anxiety Transition of Care Performed With Sharing of Clinical Summary S/P July 30, 2018 Surgeon(s) and Role: Jamie Jo - Primary OPERATION: Septal myectomy and mitral valve repair consisting of excision of a prolapsing segment of the P3 scallop of the mitral valve, annuloplasty with a #33 Rm band, bilateral pulmonary vein isolation with multiple upper occasions of the AtriCure radiofrequency clamp and clipping of the left atrial appendage with a 50 mm AtriCure clip Recovery was complicated by atrial fibrillation, FVO, acute kidney injury Consult was made to electrophysiology for atrial fibrillation with slow ventricular response. Discharged to [facility] 08/06/2018, discharged to home with PT 08/17/2018. Regular diet 2000 ml fluid restriction. Chest x-ray on August 12 showed atelectatic changes in the left lung had resolved. August 14 labs WBC is 10.8 hemoglobin 9.2 hematocrit 30.2 platelets 434 glucose 93 BUN 22 creatinine 0.87 calcium 8.6 sodium 142 potassium 4.0 chloride 102 CO2 31 9 INR 3.2. PT INR Date Value Ref Range Status 08/23/2018 2.2 (H) 0.9 - 1.3 Final Comment: Vitamin K Antagonist (VKA) Therapeutic Range: INR 2 to 3 (Target INR of 2.5) Note: For patients treated with VKA drugs, such as warfarin, the [place] [employer] 2012 Guideline recommends a therapeutic INR range of 2 to 3 (target INR of 2.5). This recommendation includes high-risk patients with antiphospholipid syndrome with previous arterial or venous thromboembolism, current-generation mechanical or bioprosthetic aortic heart valve replacement. Note: Patients with mechanical aortic valve replacement and additional risk factors for thromboembolic events (atrial fibrillation, previous thromboembolism, LV dysfunction, hypercoagulable conditions) or an older generation mechanical AVR (i.e., ball in-Cage) or any mechanical MVR should have a INR therapeutic range of 2.5 to 3.5 (target INR of 3). Toni GH, et al. Chest 2012, 141:7S-47S Lilli RA et al. [facility] 2017, 70: 252-289 INR (POCT) Date Value Ref Range Status 08/26/2018 3.6 (H) 0.8 - 1.2 Final Today reports she feels as if she is improving. She reports breathing is improved. She reports sternotomy is currently without pain. She is having some neck and shoulder pain following surgery but this is improving. She been taking Tylenol with some relief. No reported dizziness lightheadedness palpitations edema. She reports fluid restriction as advised. Weight is stable. Eating regular diet. No constipation. Reports getting about her home well. She is walking with a cane. She plans to go to [facility] for cardiac rehabilitation. No current low back pain. No recent hospital or ED visits. No new medical problems or medications. Able to obtain medications. No problems with taking medications or note side effects. 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 Monson follows for benign tumor removed 2002 - Unspecified essential hypertension 10/06/2008 PAST SURGICAL HISTORY Procedure Laterality Date - PAST SURGICAL HISTORY OF 2003 tumor removed from bladder FAMILY HISTORY Problem Relation Age of Onset - None Father - None Mother - other (Myocardial infarction) Paternal Grandmother 80 Social History Substance Use Topics - Smoking status: Former Smoker Packs/day: 1.00 Years: 58.00 Types: Cigarettes Start date: 1956 Quit date: 07/02/2013 - Smokeless tobacco: Never Used Comment: No smoking in childhood home. Spouse quit smoking years before patient did. - Alcohol use Yes Comment: occasional ALLERGIES: ALLERGIES Allergen Reactions - Zyloprim [Allopurin* Rash - Environmental [Othe* Intolerance rhinitis - Tramadol Other: See Comments made patient woozy/dizzy MEDICATIONS acetaminophen (TYLENOL) 325 mg tablet 1-2 tablets by ORAL/FEEDING TUBE route every 4 hours as needed for Pain (for mild to moderate pain). therapeutic multivitamin (THERA VITAMIN) tablet Take 1 tablet by mouth daily with breakfast. aspirin 81 mg chewable tablet Take 1 tablet by mouth once daily. pantoprazole DR (PROTONIX) 20 mg tablet Take 1 tablet by mouth DAILY (6 AM). PARoxetine (PAXIL) 10 mg tablet Take 1 tablet by mouth once daily. potassium chloride (K-TAB) 10 mEq tablet Take 10 mEq by mouth once daily. umeclidinium-vilanterol (ANORO ELLIPTA) 62.5-25 mcg/actuation inhaler Inhale one inhalation as instructed once daily warfarin (COUMADIN) 2 mg tablet Take 2 mg by mouth once daily. furosemide (LASIX) 40 mg tablet Take 1 tablet by mouth once daily. magnesium oxide (MAGOX) 400 mg tablet Take 1 tablet by mouth once daily. albuterol HFA (VENTOLIN HFA) 90 mcg/actuation inhaler Inhale 2 Puffs as instructed every 4 hours as needed for Wheezing/Shortness of Breath. Cholecalciferol, Vitamin D3, 1,000 unit cap Take 1 capsule by mouth once daily. REVIEW OF SYSTEMS: GENERAL: Negative for: Weight loss or gain, Fever or Chills, Weakness and Sleep difficulties. Physical Examination: BP 114/68 Pulse 56 Resp 16 Wt 148 lb (67.1kg) General appearance: Well appearing, alert, in no acute distress, well-hydrated, well nourished. Skin: Skin color, texture, turgor normal, no suspicious rashes or lesions Neck: Supple, no adenopathy; thyroid symmetric, normal size, no bruits Lungs: Lungs clear to auscultation. No wheezing, rhonchi, rales Heart: RRR without murmur, gallop, or rubs. No ectopy Abdomen: Abdomen soft, non-tender. Bowel sounds normal. No masses, organomegaly Extremities: No edema, skin discoloration, clubbing or cyanosis. Good capillary refill. Peripheral pulses: Normal Neuro: Gait normal. Sensation grossly intact. Reviewed chart, outside records, tests I personally interviewed, confirmed and edited the above information if obtained by others. TESTING: Glucose (mg/dL) Date Value 08/19/2018 98 Potassium (mmol/L) Date Value 08/19/2018 4.4 Sodium (mmol/L) Date Value 08/19/2018 142 Chloride (mmol/L) Date Value 08/19/2018 101 CO2 (mmol/L) Date Value 08/19/2018 25 Creatinine (mg/dL) Date Value 08/19/2018 0.99 BUN (mg/dL) Date Value 08/19/2018 17 Anion Gap (mmol/L) Date Value 08/19/2018 16 Calcium (mg/dL) Date Value 08/19/2018 9.4 Glucose (mg/dL) Date Value 08/19/2018 98 Potassium (mmol/L) Date Value 08/19/2018 4.4 Sodium (mmol/L) Date Value 08/19/2018 142 Chloride (mmol/L) Date Value 08/19/2018 101 CO2 (mmol/L) Date Value 08/19/2018 25 Creatinine (mg/dL) Date Value 08/19/2018 0.99 BUN (mg/dL) Date Value 08/19/2018 17 Anion Gap (mmol/L) Date Value 08/19/2018 16 Calcium (mg/dL) Date Value 08/19/2018 9.4 Protein, Total (g/dL) Date Value 08/19/2018 6.9 Albumin (g/dL) Date Value 08/19/2018 3.8 Bilirubin, Total (mg/dL) Date Value 08/19/2018 0.4 Alkaline Phosphatase (U/L) Date Value 08/19/2018 128 AST (U/L) Date Value 08/19/2018 25 ALT (U/L) Date Value 08/19/2018 14 08/19/2018 15 Hemoglobin (g/dL) Date Value 08/19/2018 11.6 Hematocrit (%) Date Value 08/19/2018 40.6 WBC (k/uL) Date Value 08/19/2018 11.73 Cholesterol, Total (mg/dL) Date Value 08/23/2018 159 HDL Cholesterol (mg/dL) Date Value 08/23/2018 40 LDL Cholesterol (mg/dL) Date Value 08/23/2018 86 Triglyceride (mg/dL) Date Value 08/23/2018 166 Hemoglobin A1C Date Value Ref Range Status 09/03/2016 Test sent to [facility]. 4.0 - 6.0 % Final Comment: Account Credited HIDE 12/04/2014 Test sent to [facility]. 4.0 - 6.0 % Final Comment: Account Credited HIDE Ejection Fraction - Result: 74 % Date: 08/06/2018 Time: 09:21:42 IMPRESSION: Ms. Sharpe is a 78 year old woman presents for TCU follow up s/p myectomy, MV repair. After my examination and review of data, I make the following recommendations. PLAN AND RECOMMENDATIONS: 1. Atrial fibrillation, unspecified type (HCC) - ICD9: 427.31, ICD10: I48.91 (primary diagnosis) 2. S/P ventricular septal myectomy - ICD9: V45.89, ICD10: Z98.890 3. Status post mitral valve repair - ICD9: V45.89, ICD10: Z98.890 4. Blood loss anemia - ICD9: 280.0, ICD10: D50.0 Discharged to rehabilitation following surgery and doing well now Blood loss anemia is resolving All wounds are healing well Mobility is improving, plans on going [facility] Has resumed diet, maintaining fluid restriction Neck an shoulder pain currently controlled with tylenol Consideration for possible cardioversion, following with Dr. Argueta. Advised to go to ER if develops chest pain, shortness of breath, or severe worsening of symptoms. Discussed risks, benefits, alternatives, and potential side effects of medications. Ms. Sharpe expressed understanding and agreed with the plan. Jerad Bales APRN.[employer]OUND [employer]ER Referring Provider: SELF [200] Allergies As of Date: 08/27/2018 Noted Allergy Reaction ZYLOPRIM (ALLOPURINOL) 05/26/2017 2 - Rash environmental [Other] 12/30/2005 5 - Intolerance Comments: rhinitis TRAMADOL 03/10/2016 14 - Other: See Comments Comments: made patient woozy/dizzy Date Reviewed: 08/27/2018 Reviewed by: Kina Wooten LPN - Fully Assessed Reason for Visit: Hospital F/U [57] Primary Visit Diagnosis:Atrial fibrillation, unspecified type (HCC) [I48.91] Other Visit Diagnoses:S/P ventricular septal myectomy [Z98.890] Status post mitral valve repair [Z98.890] Blood loss anemia [D50.0] Prescriptions as of 08/27/2018 Sig: ACETAMINOPHEN 325 MG TABLET 1-2 tablets by ORAL/FEEDING T* THERAPEUTIC MULTIVITAMIN TABL* Take 1 tablet by mouth daily * ASPIRIN 81 MG CHEWABLE TABLET Take 1 tablet by mouth once d* PANTOPRAZOLE 20 MG TABLET,DEL* Take 1 tablet by mouth DAILY * PAROXETINE 10 MG TABLET Take 1 tablet by mouth once d* POTASSIUM CHLORIDE ER 10 MEQ * Take 10 mEq by mouth once kodi* UMECLIDINIUM 62.5 MCG-VILANTE* Inhale one inhalation as inst* WARFARIN 2 MG TABLET Take 2 mg by mouth once daily. FUROSEMIDE 40 MG TABLET Take 1 tablet by mouth once d* MAGNESIUM OXIDE 400 MG (241.3* Take 1 tablet by mouth once d* ALBUTEROL SULFATE HFA 90 MCG/* Inhale 2 Puffs as instructed * CHOLECALCIFEROL (VITAMIN D3) * Take 1 capsule by mouth once * Problem List As Of Date 08/27/2018 Noted Resolved FX LATERAL MALLEOLUS-CLOSE [S82.63XA] INVALID FOR*09/05/2008 ELEV BL PRES W/O HYPERTN [R03.0] INVALID FOR*10/06/2008 Unspecified disorder of bladder [N32.9] INVALID FOR*08/03/2018 More... Impaired fasting glucose [R73.01] INVALID FOR*08/03/2018 Essential hypertension [I10] INVALID FOR* Priority: A More... Osteoporosis [M81.0] INVALID FOR* More... Vitamin D deficiency [E55.9] INVALID FOR*08/03/2018 More... MR (mitral regurgitation) [I34.0] Priority: A More... IBS (irritable bowel syndrome) [K58.9] 08/03/2018 More... 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 Afib (HCC) [I48.91] INVALID FOR* Priority: A More... Pulmonary emphysema (HCC) [J43.9] INVALID FOR* Bone metastasis (HCC) [C79.51] INVALID FOR* More... 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 HOCM (hypertrophic obstructive cardiomyopathy) *INVALID FOR* Priority: A More... Discharge planning issues [Z02.9] INVALID FOR* Priority: D More... Preop testing [Z01.818] INVALID FOR*08/03/2018 Priority: A More... Encounter for preoperative anesthesiology asses*INVALID FOR* Cardiac insufficiency (HCC) [I50.9] INVALID FOR*07/31/2018 Priority: C More... On mechanically assisted ventilation (HCC) [Z99*INVALID FOR*07/31/2018 Priority: B More... Postoperative pain [G89.18] INVALID FOR*08/03/2018 Priority: D More... Stress hyperglycemia [R73.9] INVALID FOR*08/05/2018 Priority: C More... Hypovolemia/fluctuating lacic acidosis [E86.1] INVALID FOR*08/02/2018 Priority: F More... COPD (chronic obstructive pulmonary disease) (H*INVALID FOR* Priority: B More... Anxiety [F41.9] INVALID FOR* Priority: C More... Hypervolemia [E87.70] INVALID FOR*08/03/2018 Priority: F More... RADHA (acute kidney injury) (HCC) [N17.9] INVALID FOR*08/05/2018 Priority: C More... Transition of care performed with sharing of cl*INVALID FOR* Priority: Very Severe More... S/P ventricular septal myectomy [Z98.890] INVALID FOR* Status post mitral valve repair [Z98.890] INVALID FOR* Encounter Status:Closed by JERAD PAIZ on 08/27/18 PROGRESS Observed: 08/26/2018 Status: COMPLETED Source: [place] 2:10 PM [facility] REPOSITORY HNO ID: [id number] Author: Yemi Dent MA Service: (none) Author Type: (none) Type: Progress Notes Filed: 08/26/2018 2:10 PM Note Text: Please see phone note. Yemi Dent MA PROGRESS Observed: 08/26/2018 Status: COMPLETED Source: [place] 1:25 PM [facility] REPOSITORY HNO ID: [id number] Author: Portia Theodore RN Service: (none) Author Type: (none) Type: Progress Notes Filed: 08/26/2018 1:28 PM Note Text: patient had inr completed at [facility] patients inr is 3.6 (patients inr range is 2.0-3.0) patient is currently taking 2mg daily patients last dose change was on 08/19/18 due to a low level of of 1.4 patient has had no changes in medication except for coumadin and 1 missed dose and no change in diet FYI - patient has already taken coumadin for today as she take medication in the morning Advised patient that they would be contacted regarding medication dose and when to follow up after information is reviewed by provider. After provider review please contact the patient with information and schedule follow up appointment with coumadin clinic. Result being sent to Dr Argueta at this time for monitoring after cardiac procedure. LIPID PANEL, BASIC Collected: 08/23/2018 Status: F Source: [place] 12:06 PM [facility] REPOSITORY TYPE CODE TESTS RESULT OUT OF REFERENCE UNITS RANGE LAB CHOL <200 mg/dL Cholesterol 159 Result Comment: <200 mg/dL, Desirable 200-239 mg/dL, Borderline high >239 mg/dL, High LAB TRIGLY <150 mg/dL Triglyceride High 166 Result Comment: <150 mg/dL, Normal 150-199 mg/dL, Borderline high 200-499 mg/dL, High >499 mg/dL, Very high LAB HDL >39 mg/dL HDL-Cholesterol 40 Result Comment: 40-59 mg/dL, Acceptable >59 mg/dL, High: Negative risk factor for coronary heart disease <40 mg/dL, Low: Positive risk factor for coronary heart disease LAB LDL <100 mg/dL LDL-Cholesterol 86 Result Comment: <100 mg/dL, Optimal 100-129 mg/dL, Near optimal/above optimal 130-159 mg/dL, Borderline high 160-189 mg/dL, High >189 mg/dL, Very high Secondary prevention optimal LDL Cholesterol levels are recommended to be < 70 mg/dL LAB NONHDL <130 mg/dL Non HDL Cholesterol 119 Result Comment: <130 mg/dL, Optimal 130-159 mg/dL, Near optimal/above optimal 160-189 mg/dL, Borderline high 190-219 mg/dL, High >219 mg/dL, Very high Secondary prevention optimal non HDL Cholesterol levels are recommended to be < 100 mg/dL LAB FT hrs Fasting Time 3 LAB VLDL <30 mg/dL High VLDL Cholesterol 33 LAB TCHDL <5.10 TC:HDL Ratio 3.98 LAB LDLHDL <2.54 LDL:HDL Ratio 2.15 Result Comment: Reference: 1. National Cholesterol Education Program ATP III Guideline At-A-Glance Quick Desk Reference: National Heart, Lung, and Blood [place]. National Institutes of Health. 2001: NIH Publication No. 01-3305. 2. An International Atherosclerosis Society position paper: global recommendations for the management of dyslipidemia: executive summary, Atherosclerosis. 2014: 232(2):410-413. Performed By: #### LIPB #### [facility] [address] [place], [place] [address] PROTIME Collected: 08/23/2018 Status: F Source: [place] 12:05 PM [facility] REPOSITORY TYPE CODE TESTS RESULT OUT OF RANGE REFERENCE UNITS LAB PSEC 9.7-13.0 sec High PT Sec 21.6 LAB INR 0.9-1.3 High PT INR 2.2 Result Comment: Vitamin K Antagonist (VKA) Therapeutic Range: INR 2 to 3 (Target INR of 2.5) Note: For patients treated with VKA drugs, such as warfarin, the [place] [employer] 2012 Guideline recommends a therapeutic INR range of 2 to 3 (target INR of 2.5). This recommendation includes high-risk patients with antiphospholipid syndrome with previous arterial or venous thromboembolism, current-generation mechanical or bioprosthetic aortic heart valve replacement. Note: Patients with mechanical aortic valve replacement and additional risk factors for thromboembolic events (atrial fibrillation, previous thromboembolism, LV dysfunction, hypercoagulable conditions) or an older generation mechanical AVR (i.e., ball in-Cage) or any mechanical MVR should have a INR therapeutic range of 2.5 to 3.5 (target INR of 3). Toni GH, et al. Chest 2012, 141:7S-47S Lilli RA, et al. [facility] 2017, 70: 252-289 Performed By: #### PT #### [facility] [address] [address] PROGRESS Observed: 08/20/2018 Status: COMPLETED Source: [place] 1:46 PM [facility] [place] REPOSITORY HNO ID: [id number] Author: Brandon Argueta Service: (none) Author Type: Physician Type: Progress Notes Filed: 08/20/2018 5:56 PM Note Text: PERTINENT CARDIAC HISTORY PAF - cardioversion 05/18, 10/18, PVI, Atricure 07/20 HCM - myectomy 07/20 HTN HL - declines statin MVP with mitral insufficiency - severe, 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) 07/20 CHF - diastolic Long QT LBBB ADHERENCE TO GUIDELINES CIERRA-I or ARB for HF with prior LVEF<40 (NQF 0081) - N/A ASA or Plavix for ASHD (NQF 0067) - N/A Beta jhon for ASHD with prior RI or prior LVEF<40 (NQF 0070) - N/A Beta jhon for HF with prior LVEF<40 (NQF 0083) - N/A CIERRA-I or ARB for ASHD with DM or prior LVEF<40 (NQF 0066) - N/A Statin therapy for ASHD or FHL or DM - declines BMI documented and plan if >25 (NQF 0421) - lifestyle recommendation form Tobacco use screening and referral (NQF 0028) - lifestyle recommendation form Recommendation for whole food, plant based diet - lifestyle recommendation form CLINICAL IMPRESSION/PLAN: Priscilla Sharpe is doing well. She has had a good surgical result. She remains in atrial fibrillation. She would benefit from cardioversion. Unfortunately, her INR has been subtherapeutic recently. I recommend that she be fully anticoagulated for 4-6 weeks before considering cardioversion. We will take over management of her INR for the time being. She was advised to have this done early next week. I will see her in 2 months, at which time we will discuss cardioversion. Written and verbal health teaching given to patient, patient verbalizes understanding and agrees with treatment plan. DIAGNOSIS FOR VISIT: HOCM Mitral insufficiency HISTORY OF PRESENT ILLNESS Priscilla Sharpe returns for follow-up of her septal myectomy and mitral valve repair. This was uncomplicated. She underwent PVI and atrial appendage clip. Amiodarone was discontinued. She was in atrial fibrillation at the time of discharge. She was sent to [facility] for rehabilitation and has been home for the last several days. She reports exercise tolerance is gradually improving. She's had no episodes of sudden shortness of breath. She is unaware of her heart rhythm. She has had minimal sternal discomfort. She's had no angina. She has had minimal edema. She denies syncope, TIAs, amaurosis and claudication. ALLERGIES: ALLERGIES Allergen Reactions - Zyloprim [Allopurin* Rash - Environmental [Othe* Intolerance rhinitis - Tramadol Other: See Comments made patient woozy/dizzy CURRENT OUTPATIENT MEDICATIONS: acetaminophen (TYLENOL) 325 mg tablet 1-2 tablets by ORAL/FEEDING TUBE route every 4 hours as needed for Pain (for mild to moderate pain). therapeutic multivitamin (THERA VITAMIN) tablet Take 1 tablet by mouth daily with breakfast. aspirin 81 mg chewable tablet Take 1 tablet by mouth once daily. pantoprazole DR (PROTONIX) 20 mg tablet Take 1 tablet by mouth DAILY (6 AM). PARoxetine (PAXIL) 10 mg tablet Take 1 tablet by mouth once daily. potassium chloride (K-TAB) 10 mEq tablet Take 10 mEq by mouth once daily. umeclidinium-vilanterol (ANORO ELLIPTA) 62.5-25 mcg/actuation inhaler Inhale one inhalation as instructed once daily warfarin (COUMADIN) 2 mg tablet Take 2 mg by mouth once daily. furosemide (LASIX) 40 mg tablet Take 1 tablet by mouth once daily. magnesium oxide (MAGOX) 400 mg tablet Take 1 tablet by mouth once daily. albuterol HFA (VENTOLIN HFA) 90 mcg/actuation inhaler Inhale 2 Puffs as instructed every 4 hours as needed for Wheezing/Shortness of Breath. Cholecalciferol, Vitamin D3, 1,000 unit cap Take 1 capsule by mouth once daily. PHYSICAL EXAMINATION: VITAL SIGNS: BP 124/64 Pulse 49 Wt 150 lb 4.8 oz (68.2kg) Chest: Clear to auscultation. There is no evidence of effusion. The sternotomy is healing well. There is no evidence of infection . Trachea is midline. Air entry is equal. Cardiac: Regular rhythm. S1 and S2 are normal. PMI is nondisplaced. No mitral insufficiency is heard. Carotids are brisk without bruits. JVP is less than 10 cm. Abdomen: Soft and nontender. There are no pulsatile masses or bruits. No liver enlargement. Bowel sounds are active. Extremities: Trace edema. Pulses are intact and symmetrical. Echocardiogram prior to discharge showed showed minimal mitral insufficiency. Her LVOT gradients improved significantly. EKG prior to discharge showed atrial flutter with variable conduction. There is new left bundle branch block. Labs from yesterday were reviewed. Hemoglobin has normalized. Renal function is normal. TSH is normal. Amiodarone was discontinued following surgery. Plan was to consider cardioversion after 6 weeks. Electronically Signed: Brandon Argueta MD August 20, 2018 1:46 PM CC: Alisia Pacheco MD CNOV Observed: 08/20/2018 Status: COMPLETED Source: [place] 1:15 PM [facility] REPOSITORY Office Visit (CAWSTR) PRISCILLA SHARPE ([id number]) 1940 F Date Time Provider Department 08/20/18 1:15 PM BRANDON ARGUETAWSTR During your visit today, we recorded the following information about you: Pulse Blood pressure Weight 49/minute 124/64 68.2 kg Brandon Argueta MD 08/20/2018 5:56 PM Signed PERTINENT CARDIAC HISTORY PAF - cardioversion 05/18, 10/18, PVI, Atricure 07/20 HCM - myectomy 07/20 HTN HL - declines statin MVP with mitral insufficiency - severe, 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) 07/20 CHF - diastolic Long QT LBBB ADHERENCE TO GUIDELINES CIERRA-I or ARB for HF with prior LVEF<40 (NQF 0081) - N/A ASA or Plavix for ASHD (NQF 0067) - N/A Beta jhon for ASHD with prior RI or prior LVEF<40 (NQF 0070) - N/A Beta jhon for HF with prior LVEF<40 (NQF 0083) - N/A CIERRA-I or ARB for ASHD with DM or prior LVEF<40 (NQF 0066) - N/A Statin therapy for ASHD or FHL or DM - declines BMI documented and plan if >25 (NQF 0421) - lifestyle recommendation form Tobacco use screening and referral (NQF 0028) - lifestyle recommendation form Recommendation for whole food, plant based diet - lifestyle recommendation form CLINICAL IMPRESSION/PLAN: Priscilla Sharpe is doing well. She has had a good surgical result. She remains in atrial fibrillation. She would benefit from cardioversion. Unfortunately, her INR has been subtherapeutic recently. I recommend that she be fully anticoagulated for 4-6 weeks before considering cardioversion. We will take over management of her INR for the time being. She was advised to have this done early next week. I will see her in 2 months, at which time we will discuss cardioversion. Written and verbal health teaching given to patient, patient verbalizes understanding and agrees with treatment plan. DIAGNOSIS FOR VISIT: HOCM Mitral insufficiency HISTORY OF PRESENT ILLNESS Priscilla Sharpe returns for follow-up of her septal myectomy and mitral valve repair. This was uncomplicated. She underwent PVI and atrial appendage clip. Amiodarone was discontinued. She was in atrial fibrillation at the time of discharge. She was sent to [facility] for rehabilitation and has been home for the last several days. She reports exercise tolerance is gradually improving. She's had no episodes of sudden shortness of breath. She is unaware of her heart rhythm. She has had minimal sternal discomfort. She's had no angina. She has had minimal edema. She denies syncope, TIAs, amaurosis and claudication. ALLERGIES: ALLERGIES Allergen Reactions - Zyloprim [Allopurin* Rash - Environmental [Othe* Intolerance rhinitis - Tramadol Other: See Comments made patient woozy/dizzy CURRENT OUTPATIENT MEDICATIONS: acetaminophen (TYLENOL) 325 mg tablet 1-2 tablets by ORAL/FEEDING TUBE route every 4 hours as needed for Pain (for mild to moderate pain). therapeutic multivitamin (THERA VITAMIN) tablet Take 1 tablet by mouth daily with breakfast. aspirin 81 mg chewable tablet Take 1 tablet by mouth once daily. pantoprazole DR (PROTONIX) 20 mg tablet Take 1 tablet by mouth DAILY (6 AM). PARoxetine (PAXIL) 10 mg tablet Take 1 tablet by mouth once daily. potassium chloride (K-TAB) 10 mEq tablet Take 10 mEq by mouth once daily. umeclidinium-vilanterol (ANORO ELLIPTA) 62.5-25 mcg/actuation inhaler Inhale one inhalation as instructed once daily warfarin (COUMADIN) 2 mg tablet Take 2 mg by mouth once daily. furosemide (LASIX) 40 mg tablet Take 1 tablet by mouth once daily. magnesium oxide (MAGOX) 400 mg tablet Take 1 tablet by mouth once daily. albuterol HFA (VENTOLIN HFA) 90 mcg/actuation inhaler Inhale 2 Puffs as instructed every 4 hours as needed for Wheezing/Shortness of Breath. Cholecalciferol, Vitamin D3, 1,000 unit cap Take 1 capsule by mouth once daily. PHYSICAL EXAMINATION: VITAL SIGNS: BP 124/64 Pulse 49 Wt 150 lb 4.8 oz (68.2kg) Chest: Clear to auscultation. There is no evidence of effusion. The sternotomy is healing well. There is no evidence of infection . Trachea is midline. Air entry is equal. Cardiac: Regular rhythm. S1 and S2 are normal. PMI is nondisplaced. No mitral insufficiency is heard. Carotids are brisk without bruits. JVP is less than 10 cm. Abdomen: Soft and nontender. There are no pulsatile masses or bruits. No liver enlargement. Bowel sounds are active. Extremities: Trace edema. Pulses are intact and symmetrical. Echocardiogram prior to discharge showed showed minimal mitral insufficiency. Her LVOT gradients improved significantly. EKG prior to discharge showed atrial flutter with variable conduction. There is new left bundle branch block. Labs from yesterday were reviewed. Hemoglobin has normalized. Renal function is normal. TSH is normal. Amiodarone was discontinued following surgery. Plan was to consider cardioversion after 6 weeks. Electronically Signed: Brandon Argueta MD August 20, 2018 1:46 PM CC: MD Brandon Hernandez MD 08/20/2018 1:46 PM Signed LIFESTYLE CHANGE A healthy lifestyle is the most important component of your overall treatment plan. Please give serious thought to the following areas and commit to making jail changes. EAT A WHOLE FOOD, PLANT BASED DIET The nutrition your body gets is more important than the medicine you take. What matters most is the overall way you eat. We encourage you to minimize the use of animal products (which include dairy and all meats except fatty fish) and use whole, unprocessed plant foods to provide your protein, vitamins and other nutrients. We have a lot of information to share with you on this topic. This is not a diet. It is a way of life that you will keep with you. EXERCISE REGULARLY It is not important to spend hours in the gym, lifting weights and perspiring heavily. A total of 2-3 hours per week of aerobic (causing you to be moderately short of breath) exercise is sufficient to improve your health. Talk to us before you begin a new exercise program, if you have heart disease or experience shortness of breath or chest pain. REDUCE STRESS Chronic emotional and physical stress leads to disease. Ways of reducing stress include meditation, visualization, prayer, yoga and other forms of relaxation therapy. Consistency is the aquino. Find a technique that works for you and do it every day. CULTIVATE RELATIONSHIPS Loneliness and isolation have a major negative impact on health. Seek out others who can love, care for and nurture you. Avoid hurtful relationships. MAINTAIN IDEAL BODY WEIGHT The best way to do this is to do all the things above. Our bodies naturally find the right weight if we keep moving and feed ourselves the right food. If your BMI is greater than 25, we strongly recommend a referral to a weight management program. Please speak to us or your family physician about available programs. AVOID NICOTINE IN ALL FORMS This includes all tobacco products, whether chewed, smoked, vaped, or rubbed on the skin. Smoking cessation programs, which can make use of tobacco substitutes, medications to suppress cravings and behavior management, are available. Please contact your family physician about programs in your area. Referring Provider: BRANDON ARGUETA [[id number]] Allergies As of Date: 08/20/2018 Noted Allergy Reaction ZYLOPRIM (ALLOPURINOL) 05/26/2017 2 - Rash environmental [Other] 12/30/2005 5 - Intolerance Comments: rhinitis TRAMADOL 03/10/2016 14 - Other: See Comments Comments: made patient woozy/dizzy Date Reviewed: 08/20/2018 Reviewed by: Anand Mejía RN - Fully Assessed Reason for Visit: Recheck [92] Primary Visit Diagnosis:HOCM (hypertrophic obstructive cardiomyopathy) ([facility]) [I42.1] Other Visit Diagnosis:PAF (paroxysmal atrial fibrillation) ([facility]) [I48.0] Prescriptions as of 08/20/2018 Sig: ACETAMINOPHEN 325 MG TABLET 1-2 tablets by ORAL/FEEDING T* THERAPEUTIC MULTIVITAMIN TABL* Take 1 tablet by mouth daily * ASPIRIN 81 MG CHEWABLE TABLET Take 1 tablet by mouth once d* PANTOPRAZOLE 20 MG TABLET,DEL* Take 1 tablet by mouth DAILY * PAROXETINE 10 MG TABLET Take 1 tablet by mouth once d* POTASSIUM CHLORIDE ER 10 MEQ * Take 10 mEq by mouth once kodi* UMECLIDINIUM 62.5 MCG-VILANTE* Inhale one inhalation as inst* WARFARIN 2 MG TABLET Take 2 mg by mouth once daily. FUROSEMIDE 40 MG TABLET Take 1 tablet by mouth once d* MAGNESIUM OXIDE 400 MG (241.3* Take 1 tablet by mouth once d* ALBUTEROL SULFATE HFA 90 MCG/* Inhale 2 Puffs as instructed * CHOLECALCIFEROL (VITAMIN D3) * Take 1 capsule by mouth once * Problem List As Of Date 08/20/2018 Noted Resolved FX LATERAL MALLEOLUS-CLOSE [S82.63XA] INVALID FOR*09/05/2008 ELEV BL PRES W/O HYPERTN [R03.0] INVALID FOR*10/06/2008 Unspecified disorder of bladder [N32.9] INVALID FOR*08/03/2018 More... Impaired fasting glucose [R73.01] INVALID FOR*08/03/2018 Essential hypertension [I10] INVALID FOR* Priority: A More... Osteoporosis [M81.0] INVALID FOR* More... Vitamin D deficiency [E55.9] INVALID FOR*08/03/2018 More... MR (mitral regurgitation) [I34.0] Priority: A More... IBS (irritable bowel syndrome) [K58.9] 08/03/2018 More... 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 Afib (HCC) [I48.91] INVALID FOR* Priority: A More... Pulmonary emphysema (HCC) [J43.9] INVALID FOR* Bone metastasis (HCC) [C79.51] INVALID FOR* More... 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 HOCM (hypertrophic obstructive cardiomyopathy) *INVALID FOR* Priority: A More... Discharge planning issues [Z02.9] INVALID FOR* Priority: D More... Preop testing [Z01.818] INVALID FOR*08/03/2018 Priority: A More... Encounter for preoperative anesthesiology asses*INVALID FOR* Cardiac insufficiency (HCC) [I50.9] INVALID FOR*07/31/2018 Priority: C More... On mechanically assisted ventilation (HCC) [Z99*INVALID FOR*07/31/2018 Priority: B More... Postoperative pain [G89.18] INVALID FOR*08/03/2018 Priority: D More... Stress hyperglycemia [R73.9] INVALID FOR*08/05/2018 Priority: C More... Hypovolemia/fluctuating lacic acidosis [E86.1] INVALID FOR*08/02/2018 Priority: F More... COPD (chronic obstructive pulmonary disease) (H*INVALID FOR* Priority: B More... Anxiety [F41.9] INVALID FOR* Priority: C More... Hypervolemia [E87.70] INVALID FOR*08/03/2018 Priority: F More... RADHA (acute kidney injury) (HCC) [N17.9] INVALID FOR*08/05/2018 Priority: C More... Transition of care performed with sharing of cl*INVALID FOR* Priority: Very Severe More... Other instructions from your clinician: LIFESTYLE CHANGE A healthy lifestyle is the most important component of your overall treatment plan. Please give serious thought to the following areas and commit to making adjunct faculty for medical terminology changes. EAT A WHOLE FOOD, PLANT BASED DIET The nutrition your body gets is more important than the medicine you take. What matters most is the overall way you eat. We encourage you to minimize the use of animal products (which include dairy and all meats except fatty fish) and use whole, unprocessed plant foods to provide your protein, vitamins and other nutrients. We have a lot of information to share with you on this topic. This is not a diet. It is a way of life that you will keep with you. EXERCISE REGULARLY It is not important to spend hours in the gym, lifting weights and perspiring heavily. A total of 2-3 hours per week of aerobic (causing you to be moderately short of breath) exercise is sufficient to improve your health. Talk to us before you begin a new exercise program, if you have heart disease or experience shortness of breath or chest pain. REDUCE STRESS Chronic emotional and physical stress leads to disease. Ways of reducing stress include meditation, visualization, prayer, yoga and other forms of relaxation therapy. Consistency is the aquino. Find a technique that works for you and do it every day. CULTIVATE RELATIONSHIPS Loneliness and isolation have a major negative impact on health. Seek out others who can love, care for and nurture you. Avoid hurtful relationships. MAINTAIN IDEAL BODY WEIGHT The best way to do this is to do all the things above. Our bodies naturally find the right weight if we keep moving and feed ourselves the right food. If your BMI is greater than 25, we strongly recommend a referral to a weight management program. Please speak to us or your family physician about available programs. AVOID NICOTINE IN ALL FORMS This includes all tobacco products, whether chewed, smoked, vaped, or rubbed on the skin. Smoking cessation programs, which can make use of tobacco substitutes, medications to suppress cravings and behavior management, are available. Please contact your family physician about programs in your area. Encounter Status:Closed by BRANDON ARGUETA MD on 08/20/18 PROTIME Collected: 08/19/2018 Status: F Source: [place] 2:36 PM [facility] REPOSITORY TYPE CODE TESTS RESULT OUT OF RANGE REFERENCE UNITS LAB PSEC 9.7-13.0 sec High PT Sec 14.2 LAB INR 0.9-1.3 High PT INR 1.4 Result Comment: Vitamin K Antagonist (VKA) Therapeutic Range: INR 2 to 3 (Target INR of 2.5) Note: For patients treated with VKA drugs, such as warfarin, the [place] [employer] 2012 Guideline recommends a therapeutic INR range of 2 to 3 (target INR of 2.5). This recommendation includes high-risk patients with antiphospholipid syndrome with previous arterial or venous thromboembolism, current-generation mechanical or bioprosthetic aortic heart valve replacement. Note: Patients with mechanical aortic valve replacement and additional risk factors for thromboembolic events (atrial fibrillation, previous thromboembolism, LV dysfunction, hypercoagulable conditions) or an older generation mechanical AVR (i.e., ball in-Cage) or any mechanical MVR should have a INR therapeutic range of 2.5 to 3.5 (target INR of 3). Toni GH, et al. Chest 2012, 141:7S-47S Lilli RA, et al. [facility] 2017, 70: 252-289 Performed By: #### PT, CBCDIF, CMP #### [facility] [address] [place] [address] CBC AND DIFFERENTIAL Collected: 08/19/2018 Status: F Source: [place] 2:36 PM [facility] REPOSITORY TYPE CODE TESTS RESULT OUT OF REFERENCE UNITS RANGE LAB WBC 3.70-11.00 k/uL WBC High 11.73 LAB RBC 3.90-5.20 m/uL RBC 4.91 LAB HGB 11.5-15.5 g/dL Hemoglobin 11.6 LAB HCT 36.0-46.0 % Hematocrit 40.6 LAB MCV 80.0-100.0 fL MCV 82.7 LAB MCH 26.0-34.0 pG Low MCH 23.6 LAB MCHC 30.5-36.0 g/dL Low MCHC 28.6 LAB RDWCV 11.5-15.0 % RDW-CV High 17.0 LAB PLTCT 150-400 k/uL Platelet High Count 443 LAB MPV 9.0-12.7 fL Low MPV 8.5 LAB ANEUT % Neut% 75.8 LAB AANEUT 1.45-7.50 k/uL Abs Neut High 8.89 LAB ALYMP % Lymph% 13.0 LAB AALYMP 1.00-4.00 k/uL Abs Lymph 1.52 LAB AMONO % [place]% 7.4 LAB AAMONO <0.87 k/uL Abs [place] High 0.87 LAB AEOS % Eosin% 2.7 LAB AAEOS <0.46 k/uL Abs Eosin 0.32 LAB ABASO % Baso% 1.1 LAB AABASO <0.11 k/uL Abs Baso High 0.13 LAB AUNRBC 0 /100 WBC NRBCs 0.0 LAB ABNRBC <0.01 k/uL Absolute nRBC <0.01 LAB DTYP DTYPE Auto Diff Performed By: #### PT, CBCDIF, CMP #### [facility] [address] [place], [place] [address] COMP METABOLIC PANEL Collected: 08/19/2018 Status: F Source: [place] 2:36 PM [facility] REPOSITORY TYPE CODE TESTS RESULT OUT OF REFERENCE UNITS RANGE LAB TP 6.3-8.0 g/dL Protein, Total 6.9 LAB ALB 3.9-4.9 g/dL Low Albumin 3.8 LAB CA 8.5-10.2 mg/dL Calcium, Total 9.4 LAB TBIL 0.2-1.3 mg/dL Bilirubin, Total 0.4 LAB ALKP 34-123 U/L Alkaline High Phosphatase 128 LAB AST 13-35 U/L AST 25 LAB GLU 74-99 mg/dL Glucose 98 Result Comment: The [place] [employer] (ADA) provides guidance for cutoff values for fasting glucose and random glucose. The ADA defines fasting as no caloric intake for at least 8 hours. Fas ting plasma glucose results between 100 to 125 mg/dL indicate increased risk for diabetes (prediabetes). Fasting plasma glucose results greater than or equal to 126 mg/dL meet the criteria for diagnosis of diabetes. In the absence of unequivocal hyperglycemia, results should be confirmed by repeat testing. In a patient with classic symptoms of hyperglycemia or hyperglycemic crisis, random plasma glucose results greater than or equal to 200 mg/dL meet the criteria for diagnosis of diabetes. Reference: Standards of Medical Care in Diabetes 2016, [place] [employer]. Diabetes Care. 2016.39(Suppl 1). LAB BUN 7-21 mg/dL BUN 17 LAB CRET 0.58-0.96 mg/dL Creatinine High 0.99 LAB NA 136-144 mmol/L Sodium 142 LAB K 3.7-5.1 mmol/L Potassium 4.4 LAB CL 97-105 mmol/L Chloride 101 LAB CO2 22-30 mmol/L CO2 25 LAB AGAP 9-18 mmol/L Anion Gap 16 LAB ALT 7-38 U/L ALT 15 LAB GFRAA eGFR- Amer. >60 LAB GFRNAA . eGFR-All Other Races 54 Result Comment: eGFR (Estimated GFR) Units of measure: mL/min/1.73 meters squared eGFR is derived from the reexpressed MDRD Study equation using the following parameters: serum creatinine, age, gender and race. The creatinine assay has been calibrated to be traceable to IDMS. An eGFR <60 mL/min/1.73m2 for >3 months is consistent with chronic kidney disease. Refer to KDOQI guidelines for clinical interpretation. In patients with unstable renal function, e.g. those with acute kidney injury, the eGFR may not accurately reflect actual GFR. Performed By: #### PT, CBCDIF, CMP #### [facility] [address] [address] ALT Collected: 08/19/2018 Status: F Source: [place] 2:36 PM [facility] REPOSITORY TYPE CODE TESTS RESULT OUT OF RANGE REFERENCE UNITS LAB ALT 7-38 U/L ALT 14 Performed By: #### ALT, TSH #### [facility] [address] [place] [address] TSH Collected: 08/19/2018 Status: F Source: [place] 2:36 PM [facility] REPOSITORY TYPE CODE TESTS RESULT OUT OF RANGE REFERENCE UNITS LAB TSH 0.400-5.500 uU/mL TSH 1.440 Performed By: #### ALT, TSH #### [facility] [address] [address] PROGRESS Observed: 08/19/2018 Status: COMPLETED Source: [place] 2:05 PM [facility] REPOSITORY HNO ID: [id number] Author: Yakov ElizondoRtDheeraj Enriquez Service: (none) Author Type: Slate Cutter Operator Type: Progress Notes Filed: 08/19/2018 2:06 PM Note Text: Radiology Service Progress Note PATIENT NAME: Priscilla Sharpe DATE OF SERVICE: August 19, 2018 TIME: 2:05 PM PATIENT IDENTITY VERIFICATION COMPLETED USING TWO (2) METHODS: Patient confirmed name verbally and Date of . PATIENT GENDER DATA: Female. status: : No status: NO. PATIENT RELEVANT IMPLANT DATA REVIEWED: Not Applicable RADIOLOGY DEPARTMENT: General X-ray: Exam(s) Completed: Chest X-Ray PERIPHERAL IV DATA: Not applicable SIGNED BY: RT Gaby August 19, 2018 2:05 PM XR CHEST 2V FRONTAL/LAT Observed: 08/19/2018 Status: F Source: [place] 2:03 PM [facility] REPOSITORY * * *Final Report* * * DATE OF EXAM: Aug 19 2018 2:03PM JIX [id number] - XR CHEST 2V FRONTAL/LAT / PROCEDURE REASON: multiple diagnoses * * * * Physician Interpretation * * * * EXAMINATION: CHEST RADIOGRAPH (2 VIEW FRONTAL and LATERAL) CLINICAL HISTORY: Non-rheumatic mitral regurgitation Paroxysmal atrial fibrillation (HCC) MQ: XC2_5 Comparison: 08/05/2018 RESULT: Lines, tubes, and devices: Patient is status post median sternotomy and mitral opacity. A left atrial appendage occlusion clip is present. Lungs and pleura: Interval resolution of previously identified small bilateral pleural effusions and bibasilar atelectasis. Lungs are hyperinflated with attenuation of the pulmonary vasculature in the upper lobes, in keeping with pulmonary emphysema. No pneumothorax is identified. Cardiomediastinal silhouette: The cardiomediastinal silhouette is mildly enlarged. The thoracic aorta is tortuous and ectatic. Other: Endplate degenerative changes are present in the thoracic spine. IMPRESSION: No acute radiographic abnormality. Medical Billing Specialist: PSCB Transcribe Date/Time: Aug 19 2018 3:27P Dictated by : LORELEI CAMACHO MD This examination was interpreted and the report reviewed and electronically signed by: LORELEI CAMACHO MD on Aug 19 2018 3:28PM EST [id number] Observed: 08/19/2018 Status: COMPLETED Source: [place] 2:00 PM [facility] REPOSITORY Office Visit (THOSMN) PRISCILLA SHARPE ([id number]) 1940 F Date Time Provider Department 08/19/18 2:[address] [facility] During your visit today, we recorded the following information about you: Temperature Pulse Blood pressure Weight 98 degrees 51/minute 120/64 68 kg Height [address] [place] APRN.COLLECTION ANALYST 08/19/2018 3:33 PM Signed [facility] Post op Follow up Priscilla Sharpe is a 78 year old female who presents who is here for post operative follow up HPI: S/P on 07/30/2018 [facility] Surgeon: Jamie Jo [facility] Primary Podiatry Doctor: Dr. Jay Rich Operations : Septal myectomy?and mitral valve repair consisting of excision of a prolapsing segment of the P3 scallop of the mitral valve, annuloplasty with a #33 Rm band, bilateral pulmonary vein isolation with multiple upper occasions of the AtriCure radiofrequency clamp and clipping of the left atrial appendage with a 50 mm AtriCure clip Surgical Pathology/Microbiology:FINAL DIAGNOSIS 1. Septal muscle, myectomy (A) - Moderate myocyte hypertrophy with focal mild disarray. - Moderate interstitial fibrosis with replacement fibrosis. - Mild intramural coronary artery dysplasia. - Endocardial fibrosis. 2. 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 Monson follows for benign tumor removed 2002 - Unspecified essential hypertension 10/06/2008 PAST SURGICAL HISTORY Procedure Laterality Date - PAST SURGICAL HISTORY OF 2003 tumor removed from bladder ALLERGIES Allergen Reactions - Zyloprim [Allopurin* Rash - Environmental [Othe* Intolerance rhinitis - Tramadol Other: See Comments made patient woozy/dizzy Current Outpatient Prescriptions: acetaminophen (TYLENOL) 325 mg tablet 1-2 tablets by ORAL/FEEDING TUBE route every 4 hours as needed for Pain (for mild to moderate pain). therapeutic multivitamin (THERA VITAMIN) tablet Take 1 tablet by mouth daily with breakfast. aspirin 81 mg chewable tablet Take 1 tablet by mouth once daily. pantoprazole DR (PROTONIX) 20 mg tablet Take 1 tablet by mouth DAILY (6 AM). PARoxetine (PAXIL) 10 mg tablet Take 1 tablet by mouth once daily. potassium chloride (K-TAB) 10 mEq tablet Take 10 mEq by mouth once daily. umeclidinium-vilanterol (ANORO ELLIPTA) 62.5-25 mcg/actuation inhaler Inhale one inhalation as instructed once daily warfarin (COUMADIN) 2 mg tablet Take 2 mg by mouth once daily. furosemide (LASIX) 40 mg tablet Take 1 tablet by mouth once daily. magnesium oxide (MAGOX) 400 mg tablet Take 1 tablet by mouth once daily. albuterol HFA (VENTOLIN HFA) 90 mcg/actuation inhaler Inhale 2 Puffs as instructed every 4 hours as needed for Wheezing/Shortness of Breath. Cholecalciferol, Vitamin D3, 1,000 unit cap Take 1 capsule by mouth once daily. No current facility-administered medications for this visit. Chief Complaints: Overall good. [facility]charged from [facility] on Thursday (08/17). Have some numbness of my left pinkie finger Discharge Post Operative Course: Pain scale :Yes Chest wall. Currently well managed Appetite: appetite good Activity: Walking ad jennifer around the house Elimination: constipation has been a problem but much better, urination is normal Sleep: no problems with sleep Mood: normal and good Incisions/Wounds: healing Review of Systems: HEENT: Negative for fevers since discharge, chills, night sweats and blurry vision Cardiac: Denies significant problems, chest pain, leg edema and occasionally notes irregularity Respiratory: notes some sob with exertion. But improving daily. Denies any cough or swelling Musculoskeletal: No history of joint swelling, joint pain, or loss of range of motion. Neuro: Denies neurological complaints Physical Exam: BP 120/64 Pulse (!) 51 Temp 36.7 ?C (98 ?F) (Oral) Ht 165.1 cm (5' 5) Wt 68 kg (150 lb) SpO2 94% BMI 24.96 kg/m? Appearance: well groomed, white female, in no acute distress Neck: No neck vein distention Cardiac: Irregular / irregular S1, S2, No murmur, No rub Lungs: Clear breath sounds bilaterally without wheeze or dullness Abdomen: soft, non tender, Normal bowel sounds Extremities: No edema Sternum: stable, no click Sternotomy site: healing, clean, dry and intact Wound: NA Procedures: N/A IMPRESSION AND PLAN: 1.S/P on 07/30/2018 [facility] Surgeon: Jamie Jo [facility] Primary Podiatry Doctor: Dr. Jay Rich Operations : Septal myectomy?and mitral valve repair consisting of excision of a prolapsing segment of the P3 scallop of the mitral valve, annuloplasty with a #33 Rm band, bilateral pulmonary vein isolation with multiple upper occasions of the AtriCure radiofrequency clamp and clipping of the left atrial appendage with a 50 mm AtriCure clip Surgical Pathology/Microbiology:FINAL DIAGNOSIS 1. Septal muscle, myectomy (A) - Moderate myocyte hypertrophy with focal mild disarray. - Moderate interstitial fibrosis with replacement fibrosis. - Mild intramural coronary artery dysplasia. - Endocardial fibrosis. 2. Mitral valve, segmental resection (B) - Myxoid degeneration Discharged on 08/06/2018 2. HOCM - s/p myectomy 6g - post op echo completed and reviewed by in house staff 3. Afib, parox - pre op hx. Post op EP consulted bradycardic Afib - currently Aflutter CVR - INR today is 1.4. Pt has been holding coumadin since 08/17 d/t elevated at 4.8. Advised to begin 2mg daily and recheck again early next week - AC managed by PCP - EP recommend DCCV in 6 weeks EC08/19/2018 Diagnosis:ATRIAL FLUTTER WITH VARIABLE A-V BLOCK COMPLETE LEFT BUNDLE BRANCH BLOCK ABNORMAL ECG Ventricular Rate : 61 ?BPM Atrial Rate : 337 ?BPM 4. Atelectasis/FVO - currently only using Supplemental O2 2L NC qhs - improving 94% on RA - weight: down 5lbs since discharge - encouraged to continue deep breathing exercises and walking - hx of moderated COPD continue inhaler CXR:08/19/2018 RESULT: Lines, tubes, and devices: ?Patient is status post median sternotomy and mitral opacity. ?A left atrial appendage occlusion clip is present. Lungs and pleura: ?Interval resolution of previously identified small bilateral pleural effusions and bibasilar atelectasis. ?Lungs are hyperinflated with attenuation of the pulmonary vasculature in the upper lobes, in keeping with pulmonary emphysema. ?No pneumothorax is identified. Cardiomediastinal silhouette: ?The cardiomediastinal silhouette is mildly enlarged. ?The thoracic aorta is tortuous and ectatic. Other: ?Endplate degenerative changes are present in the thoracic spine. 5. HTN - stable - continue same medications LABS:08/19/2018 pending Summary: 1. Follow up with PCP as scheduled cbc and cmp 2. Follow up with educational administration teacher tomorrow. 3. Call CTS OPD with any issues, concerns or worsening symptoms. Post op care and discharge orders reviewed with the patient- all questions were answered. Surgical sites healing without complication Discussed new medications, dosage, route of administration and side effects Reviewed walking program at home Reviewed diet guidelines for recovery from surgery Return to the clinic prn with signs or symptoms of infection, fevers, SOB, or pleural effusion SBE prophylaxis reviewed Discussed wound care Lane Nagy APRN.COLLECTION ANALYST Referring Provider: JAMIE JO [[id number]] Allergies As of Date: 08/19/2018 Noted Allergy Reaction ZYLOPRIM (ALLOPURINOL) 05/26/2017 2 - Rash environmental [Other] 12/30/2005 5 - Intolerance Comments: rhinitis TRAMADOL 03/10/2016 14 - Other: See Comments Comments: made patient woozy/dizzy Date Reviewed: 08/05/2018 Reviewed by: Maria G ElizondoRn) BHARATH Valentin - Fully Assessed Primary Visit Diagnosis:S/P ventricular septal myectomy [Z98.890] Other Visit Diagnoses:S/P MVR (mitral valve repair) [Z98.890] Paroxysmal atrial fibrillation (HCC) [I48.0] HOCM (hypertrophic obstructive cardiomyopathy) (HCC) [I42.1] Chronic obstructive pulmonary disease, unspecified COPD type (HCC) [J44.9] Prescriptions as of 08/19/2018 Sig: ACETAMINOPHEN 325 MG TABLET 1-2 tablets by ORAL/FEEDING T* THERAPEUTIC MULTIVITAMIN TABL* Take 1 tablet by mouth daily * ASPIRIN 81 MG CHEWABLE TABLET Take 1 tablet by mouth once d* PANTOPRAZOLE 20 MG TABLET,DEL* Take 1 tablet by mouth DAILY * PAROXETINE 10 MG TABLET Take 1 tablet by mouth once d* POTASSIUM CHLORIDE ER 10 MEQ * Take 10 mEq by mouth once kodi* UMECLIDINIUM 62.5 MCG-VILANTE* Inhale one inhalation as inst* WARFARIN 2 MG TABLET Take 2 mg by mouth once daily. FUROSEMIDE 40 MG TABLET Take 1 tablet by mouth once d* MAGNESIUM OXIDE 400 MG (241.3* Take 1 tablet by mouth once d* ALBUTEROL SULFATE HFA 90 MCG/* Inhale 2 Puffs as instructed * CHOLECALCIFEROL (VITAMIN D3) * Take 1 capsule by mouth once * Problem List As Of Date 08/19/2018 Noted Resolved FX LATERAL MALLEOLUS-CLOSE [S82.63XA] INVALID FOR*09/05/2008 ELEV BL PRES W/O HYPERTN [R03.0] INVALID FOR*10/06/2008 Unspecified disorder of bladder [N32.9] INVALID FOR*08/03/2018 More... Impaired fasting glucose [R73.01] INVALID FOR*08/03/2018 Essential hypertension [I10] INVALID FOR* Priority: A More... Osteoporosis [M81.0] INVALID FOR* More... Vitamin D deficiency [E55.9] INVALID FOR*08/03/2018 More... MR (mitral regurgitation) [I34.0] Priority: A More... IBS (irritable bowel syndrome) [K58.9] 08/03/2018 More... 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 Afib (HCC) [I48.91] INVALID FOR* Priority: A More... Pulmonary emphysema (HCC) [J43.9] INVALID FOR* Bone metastasis (HCC) [C79.51] INVALID FOR* More... 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 HOCM (hypertrophic obstructive cardiomyopathy) *INVALID FOR* Priority: A More... Discharge planning issues [Z02.9] INVALID FOR* Priority: D More... Preop testing [Z01.818] INVALID FOR*08/03/2018 Priority: A More... Encounter for preoperative anesthesiology asses*INVALID FOR* Cardiac insufficiency (HCC) [I50.9] INVALID FOR*07/31/2018 Priority: C More... On mechanically assisted ventilation (HCC) [Z99*INVALID FOR*07/31/2018 Priority: B More... Postoperative pain [G89.18] INVALID FOR*08/03/2018 Priority: D More... Stress hyperglycemia [R73.9] INVALID FOR*08/05/2018 Priority: C More... Hypovolemia/fluctuating lacic acidosis [E86.1] INVALID FOR*08/02/2018 Priority: F More... COPD (chronic obstructive pulmonary disease) (H*INVALID FOR* Priority: B More... Anxiety [F41.9] INVALID FOR* Priority: C More... Hypervolemia [E87.70] INVALID FOR*08/03/2018 Priority: F More... RADHA (acute kidney injury) (HCC) [N17.9] INVALID FOR*08/05/2018 Priority: C More... Transition of care performed with sharing of cl*INVALID FOR* Priority: Very Severe More... Follow-up and Disposition History Recorded Encounter Status:Closed by LANE NAGY CNP on 08/19/18 ECG COMPLETE W Observed: 08/19/2018 Status: F Source: [place] INTERPRETATION 1:56 PM [facility] REPOSITORY NAME : PRISCILLA SHARPE PID : [id number] : 1940 Gender : Female Race : ORD : [id number] Procedure Date : Aug 19 2018 13:56:26 Edit Date : Aug 20 2018 10:13:13 Diagnosis:ATRIAL FIBRILLATION/FLUTTER COMPLETE LEFT BUNDLE BRANCH BLOCK ABNORMAL ECG Confirmed by KIRSTEN MUHAMMAD M.D. ([id number]) on 08/20/2018 10:13:06 AM Ventricular Rate : 61 BPM Atrial Rate : 337 BPM QRS Duration : 142 ms Q-T Interval : 608 ms QTC Calculation(Bezet) : 612 ms R Friendship : -21 degrees T Friendship : 150 degrees Test Reason : Location : 314 : J14 Overread By : KIRSTEN MUHAMMAD M.D. Edited By : KIRSTEN MUHAMMAD M.D. Referred By : JAMIE JO Acquired by : FAY WILKINS PROGRESS Observed: 08/19/2018 Status: COMPLETED Source: [place] 9:26 AM [facility] REPOSITORY HNO ID: [id number] Author: Lane Nagy Service: (none) Author Type: Nurse Practitioner Type: Progress Notes Filed: 08/19/2018 3:33 PM Note Text: [facility] CTS Post op Follow up Priscilla Sharpe is a 78 year old female who presents who is here for post operative follow up HPI: S/P on 07/30/2018 [facility] Surgeon: Jamie Jo [facility] Primary Podiatry Doctor: Dr. Jay Rich Operations : Septal myectomy?and mitral valve repair consisting of excision of a prolapsing segment of the P3 scallop of the mitral valve, annuloplasty with a #33 Rm band, bilateral pulmonary vein isolation with multiple upper occasions of the AtriCure radiofrequency clamp and clipping of the left atrial appendage with a 50 mm AtriCure clip Surgical Pathology/Microbiology:FINAL DIAGNOSIS 1. Septal muscle, myectomy (A) - Moderate myocyte hypertrophy with focal mild disarray. - Moderate interstitial fibrosis with replacement fibrosis. - Mild intramural coronary artery dysplasia. - Endocardial fibrosis. 2. 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 Monson follows for benign tumor removed 2002 - Unspecified essential hypertension 10/06/2008 PAST SURGICAL HISTORY Procedure Laterality Date - PAST SURGICAL HISTORY OF 2003 tumor removed from bladder ALLERGIES Allergen Reactions - Zyloprim [Allopurin* Rash - Environmental [Othe* Intolerance rhinitis - Tramadol Other: See Comments made patient woozy/dizzy Current Outpatient Prescriptions: acetaminophen (TYLENOL) 325 mg tablet 1-2 tablets by ORAL/FEEDING TUBE route every 4 hours as needed for Pain (for mild to moderate pain). therapeutic multivitamin (THERA VITAMIN) tablet Take 1 tablet by mouth daily with breakfast. aspirin 81 mg chewable tablet Take 1 tablet by mouth once daily. pantoprazole DR (PROTONIX) 20 mg tablet Take 1 tablet by mouth DAILY (6 AM). PARoxetine (PAXIL) 10 mg tablet Take 1 tablet by mouth once daily. potassium chloride (K-TAB) 10 mEq tablet Take 10 mEq by mouth once daily. umeclidinium-vilanterol (ANORO ELLIPTA) 62.5-25 mcg/actuation inhaler Inhale one inhalation as instructed once daily warfarin (COUMADIN) 2 mg tablet Take 2 mg by mouth once daily. furosemide (LASIX) 40 mg tablet Take 1 tablet by mouth once daily. magnesium oxide (MAGOX) 400 mg tablet Take 1 tablet by mouth once daily. albuterol HFA (VENTOLIN HFA) 90 mcg/actuation inhaler Inhale 2 Puffs as instructed every 4 hours as needed for Wheezing/Shortness of Breath. Cholecalciferol, Vitamin D3, 1,000 unit cap Take 1 capsule by mouth once daily. No current facility-administered medications for this visit. Chief Complaints: Overall good. Discharged from SNF on Thursday (08/17). Have some numbness of my left pinkie finger Discharge Post Operative Course: Pain scale :Yes Chest wall. Currently well managed Appetite: appetite good Activity: Walking ad jennifer around the house Elimination: constipation has been a problem but much better, urination is normal Sleep: no problems with sleep Mood: normal and good Incisions/Wounds: healing Review of Systems: HEENT: Negative for fevers since discharge, chills, night sweats and blurry vision Cardiac: Denies significant problems, chest pain, leg edema and occasionally notes irregularity Respiratory: notes some sob with exertion. But improving daily. Denies any cough or swelling Musculoskeletal: No history of joint swelling, joint pain, or loss of range of motion. Neuro: Denies neurological complaints Physical Exam: BP 120/64 Pulse (!) 51 Temp 36.7 ?C (98 ?F) (Oral) Ht 165.1 cm (5' 5) Wt 68 kg (150 lb) SpO2 94% BMI 24.96 kg/m? Appearance: well groomed, white female, in no acute distress Neck: No neck vein distention Cardiac: Irregular / irregular S1, S2, No murmur, No rub Lungs: Clear breath sounds bilaterally without wheeze or dullness Abdomen: soft, non tender, Normal bowel sounds Extremities: No edema Sternum: stable, no click Sternotomy site: healing, clean, dry and intact Wound: NA Procedures: N/A IMPRESSION AND PLAN: 1.S/P on 07/30/2018 [facility] Surgeon: Jamie Jo [facility] Primary Podiatry Doctor: Dr. Jay Rich Operations : Septal myectomy?and mitral valve repair consisting of excision of a prolapsing segment of the P3 scallop of the mitral valve, annuloplasty with a #33 Rm band, bilateral pulmonary vein isolation with multiple upper occasions of the AtriCure radiofrequency clamp and clipping of the left atrial appendage with a 50 mm AtriCure clip Surgical Pathology/Microbiology:FINAL DIAGNOSIS 1. Septal muscle, myectomy (A) - Moderate myocyte hypertrophy with focal mild disarray. - Moderate interstitial fibrosis with replacement fibrosis. - Mild intramural coronary artery dysplasia. - Endocardial fibrosis. 2. Mitral valve, segmental resection (B) - Myxoid degeneration Discharged on 08/06/2018 2. HOCM - s/p myectomy 6g - post op echo completed and reviewed by in house staff 3. Afib, parox - pre op hx. Post op EP consulted bradycardic Afib - currently Aflutter CVR - INR today is 1.4. Pt has been holding coumadin since 08/17 d/t elevated at 4.8. Advised to begin 2mg daily and recheck again early next week - AC managed by PCP - EP recommend DCCV in 6 weeks EC08/19/2018 Diagnosis:ATRIAL FLUTTER WITH VARIABLE A-V BLOCK COMPLETE LEFT BUNDLE BRANCH BLOCK ABNORMAL ECG Ventricular Rate : 61 ?BPM Atrial Rate : 337 ?BPM 4. Atelectasis/FVO - currently only using Supplemental O2 2L NC qhs - improving 94% on RA - weight: down 5lbs since discharge - encouraged to continue deep breathing exercises and walking - hx of moderated COPD continue inhaler CXR:08/19/2018 RESULT: Lines, tubes, and devices: ?Patient is status post median sternotomy and mitral opacity. ?A left atrial appendage occlusion clip is present. Lungs and pleura: ?Interval resolution of previously identified small bilateral pleural effusions and bibasilar atelectasis. ?Lungs are hyperinflated with attenuation of the pulmonary vasculature in the upper lobes, in keeping with pulmonary emphysema. ?No pneumothorax is identified. Cardiomediastinal silhouette: ?The cardiomediastinal silhouette is mildly enlarged. ?The thoracic aorta is tortuous and ectatic. Other: ?Endplate degenerative changes are present in the thoracic spine. 5. HTN - stable - continue same medications LABS:08/19/2018 pending Summary: 1. Follow up with PCP as scheduled cbc and cmp 2. Follow up with educational administration teacher tomorrow. 3. Call CTS OPD with any issues, concerns or worsening symptoms. Post op care and discharge orders reviewed with the patient- all questions were answered. Surgical sites healing without complication Discussed new medications, dosage, route of administration and side effects Reviewed walking program at home Reviewed diet guidelines for recovery from surgery Return to the clinic prn with signs or symptoms of infection, fevers, SOB, or pleural effusion SBE prophylaxis reviewed Discussed wound care Lane Nagy APRN.JEREMÍAS PROTHROMBIN TIME W/INR Collected: 08/17/2018 Status: F Source: [place] 11:30 AM [facility] REPOSITORY TYPE CODE TESTS RESULT OUT OF RANGE REFERENCE UNITS LAB L300.4150 11.7-14.9 SECONDS High PROTIME 32.6 LAB L300.4200 Normal INR 3.2 Performed By: #### L300.3900 #### [facility] [address] [place], [address] DISCHARGE SUMMARY Observed: 08/16/2018 Status: F Source: [place] 11:48 PM [facility] REPOSITORY [facility] Medical Records Department [address] [place] [address] Discharge Summary 08/16/18 2346 MR#: [id number] Acct: [id number] Name: PRISCILLA SHARPE Rep #: [id number] : 1940 78 From: Can Smith MD PCP: Alisia Pacheco MD Status: ADM IN Location: [place] [address] 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 Hyperlipidemia (Chronic) Hypertension (Chronic) Chronic diastolic heart failure (Chronic) Nonrheumatic mitral (valve) insufficiency (Chronic) Acute respiratory failure with hypoxia (Chronic) Bladder cancer (Chronic) Hospital Course and Treatment Imaging Results: 08/06/18 17:49 Diet: Cardiac/Low Cholesterol Food consistency:: Regular Liquid Consistency:: Regular/Thin Dietary Modifications:: Fluid Restricted Diet Diet Comments: 2000mL FR Clinical Impression(s) from Imaging Studies Chest X-Ray 08/12/18 05:30 IMPRESSION: Cardiomegaly with resolved platelike atelectatic changes in the left lung base. No acute findings in the lungs Electronically Signed: Antony Damon MD at 6:10 EDT Tel , Service support , Labs (Last 48 Hours) PT 45.6 H INR 4.8 H* Operations: None Procedures: None Summary of Care Provided: The patient is a 78 year old Female with below past medical history significant for hypertrophic obstructive cardiomyopathy, underwent septal myectomy, mitral valve repair, left atrial appendage clipping 07/30/2018, complicated by post-operative atrial fibrillation, admitted to TCU with debility, here for rehabilitation, strengthening, prior to discharge home alone. 08/16/2018 INR 4.8, warfarin held, check INR 08/18/2018, adjust warfarin per Dr. Pacheco. Discharge home alone, with outpatient PT. - Physical Exam Vital Signs Temp Pulse Resp BP Pulse Ox 97.8 F 71 18 130/66 H 90 08/16/18 15:34 08/16/18 15:34 08/16/18 15:34 08/16/18 15:34 08/16/18 15:34 Oxygen Flow Rate (L/min) 2 Oxygen Delivery Method Room Air Weight: 69 kg Body Mass Index (BMI) 25.4 Intake and Output for Last 24 Hours Intake Total 640 / 640 1080 / 1080 720 / 720 Balance 640 / 640 1080 / 1080 720 / 720 Laboratory Tests Past 24 Hrs PT 45.6 H INR 4.8 H* Discharge Diet: No Restrictions Discharge Activity: Return to Normal Activity, May Shower, Use Walker Weight Bearing Status: Weight bearing as tolerated Call your doctor if you observe: Fever of 101 or Higher, Inability to urinate, Inability to have a bowel movement, Shortness of breath, Chest pain, Uncontrolled pain Home Medications: Medications to take at Discharge Umeclidinium Brm/Vilanterol Tr [Anoro Ellipta 62.5-25 Mcg INH] 1 puff INHALATION DAILY 10/06/17 aspirin 81 mg tablet,delayed release 81 mg PO QDAY 11/11/17 Cholecalciferol (Vitamin D3) [Vitamin D3] 1,000 unit PO DAILY 08/06/18 Multivitamin [Daily Multiple Vitamin] 1 each PO DAILY 08/06/18 Acetaminophen [Tylenol] 1,000 mg PO Q8H PRN tablet 08/16/18 Albuterol Inhaler [Ventolin Hfa] 2 puff INHALATION Q4H PRN PRN #1 inhaler 08/16/18 Doxepin HCl [Sinequan] 25 mg PO QHS PRN #30 capsule 08/16/18 Furosemide [Lasix] 40 mg PO DAILY #30 tablet 08/16/18 Magnesium Oxide [Mag-Ox 400] 400 mg PO DAILY #30 tablet 08/16/18 Melatonin 10 mg PO QHS #30 tablet 08/16/18 Oxycodone [Oxyir] 5 mg PO Q6H PRN PRN #30 tab 08/16/18 Pantoprazole Sodium 20 mg PO DAILY #30 tablet. 08/16/18 Paroxetine [Paxil] 10 mg PO DAILY #30 tablet 08/16/18 Polyethylene Glycol 3350 [Miralax] 17 gm PO DAILY #30 packet 08/16/18 Potassium Chloride [K-Dur] 10 meq PO DAILY #30 tablet 08/16/18 Following Prescrptions Were Given to Patient: Albuterol Inhaler [Ventolin Hfa] 2 puff INHALATION Q4H PRN PRN #1 inhaler PRN Reason: Sob AND /Or Wheezing Oxycodone [Oxyir] 5 mg PO Q6H PRN PRN #30 tab PRN Reason: Moderate Pain (4-5/10) Doxepin HCl [Sinequan] 25 mg PO QHS PRN #30 capsule PRN Reason: SLEEP Furosemide [Lasix] 40 mg PO DAILY #30 tablet Magnesium Oxide [Mag-Ox 400] 400 mg PO DAILY #30 tablet Melatonin 10 mg PO QHS #30 tablet Pantoprazole Sodium 20 mg PO DAILY #30 tablet. Paroxetine [Paxil] 10 mg PO DAILY #30 tablet Polyethylene Glycol 3350 [Miralax] 17 gm PO DAILY #30 packet Potassium Chloride [K-Dur] 10 meq PO DAILY #30 tablet Other Amb Orders: Prothrombin Time w/INR Time Frame: 1 Day, Location: Laboratory Primary Care Physician: Alisia Pacheco MD [Primary Care Provider] - Please follow up with your Primary Care Physician in: 1 week. Please Follow Up With: [facility] When: 2 weeks. Please Follow Up With: [facility] ANGELA Please Follow Up With: Bryan ANGELA Please Follow Up With: Bryan ANGELA Please Follow Up With: Bryan ANGELA Disposition: Home Minutes spent on discharge:: 35 Patient Condition:: Stable Medical Necessity - Tobacco Use Smoking Status: Former smoker Tobacco Use: Non-smoker Meaningful Use Info Meaningful Use Diagnoses (Choose all that apply): None applicable 08/16/182347 <Electronically signed by Can Smith MD> Date Can Smith MD Cosigner Signature (if applicable): Date CC: Alisia Pacheco MD; Can Smith MD Signed DISCHARGE INSTRUCTION Observed: 08/16/2018 Status: F Source: [place] 11:46 PM [facility] REPOSITORY [facility] Medical Records Department [address] [place] [id number] Instructions for Home/Discharge Instructions 08/16/182342 MR#: [id number] Acct: [id number] Name: PRISCILLA SHARPE Rep #: [id number] : 1940 78 From: Can Smith MD PCP: Alisia Pacheco MD Status: ADM IN - Discharge Diagnoses Current Active Problems: Current Active and Chronic Problems (Last Reviewed 11/11/17 @ 09:57 by Mart Souza MD) Hypertrophic obstructive cardiomyopathy (HOCM) (Chronic) Mitral valve disorder (Chronic) Atrial fibrillation (Chronic) Bone metastasis (Chronic) Coronary artery disease (Chronic) Irritable bowel syndrome (Chronic) Prolonged QT syndrome (Chronic) Osteoporosis (Chronic) Chronic obstructive pulmonary disease (Chronic) B-cell lymphoma (Chronic) You will use the following diet at home:: No restrictions, Regular Your food should be the consistency of: Regular Your liquids should be the consistency of: Regular/Thin Discharge Activity: Return to Normal Activity, May Shower, Use Walker Weight Bearing Status: Weight bearing as tolerated Call your doctor if you observe: Fever of 101 or Higher, Inability to urinate, Inability to have a bowel movement, Shortness of breath, Chest pain, Uncontrolled pain Allergies/Adverse Reactions: Allergies allopurinol Allergy (Verified 05/11/18 11:30) Rash tramadol Adverse Reaction (Verified 05/11/18 11:30) dizzy Medications to take at Discharge Umeclidinium Brm/Vilanterol Tr [Anoro Ellipta 62.5-25 Mcg INH] 1 puff INHALATION DAILY 10/06/17 aspirin 81 mg tablet,delayed release 81 mg PO QDAY 11/11/17 Cholecalciferol (Vitamin D3) [Vitamin D3] 1,000 unit PO DAILY 08/06/18 Multivitamin [Daily Multiple Vitamin] 1 each PO DAILY 08/06/18 Acetaminophen [Tylenol] 1,000 mg PO Q8H PRN tablet 08/16/18 Albuterol Inhaler [Ventolin Hfa] 2 puff INHALATION Q4H PRN PRN #1 inhaler 08/16/18 Doxepin HCl [Sinequan] 25 mg PO QHS PRN #30 capsule 08/16/18 Furosemide [Lasix] 40 mg PO DAILY #30 tablet 08/16/18 Magnesium Oxide [Mag-Ox 400] 400 mg PO DAILY #30 tablet 08/16/18 Melatonin 10 mg PO QHS #30 tablet 08/16/18 Oxycodone [Oxyir] 5 mg PO Q6H PRN PRN #30 tab 08/16/18 Pantoprazole Sodium 20 mg PO DAILY #30 tablet. 08/16/18 Paroxetine [Paxil] 10 mg PO DAILY #30 tablet 08/16/18 Polyethylene Glycol 3350 [Miralax] 17 gm PO DAILY #30 packet 08/16/18 Potassium Chloride [K-Dur] 10 meq PO DAILY #30 tablet 08/16/18 The following prescriptions were given: Albuterol Inhaler [Ventolin Hfa] 2 puff INHALATION Q4H PRN PRN #1 inhaler PRN Reason: Sob AND /Or Wheezing Oxycodone [Oxyir] 5 mg PO Q6H PRN PRN #30 tab PRN Reason: Moderate Pain (4-5/10) Doxepin HCl [Sinequan] 25 mg PO QHS PRN #30 capsule PRN Reason: SLEEP Furosemide [Lasix] 40 mg PO DAILY #30 tablet Magnesium Oxide [Mag-Ox 400] 400 mg PO DAILY #30 tablet Melatonin 10 mg PO QHS #30 tablet Pantoprazole Sodium 20 mg PO DAILY #30 tablet. Paroxetine [Paxil] 10 mg PO DAILY #30 tablet Polyethylene Glycol 3350 [Miralax] 17 gm PO DAILY #30 packet Potassium Chloride [K-Dur] 10 meq PO DAILY #30 tablet Orders to be completed after discharge: Prothrombin Time w/INR Time Frame: 1 Day, Location: Laboratory Primary Care Physician: Alisia Pacheco MD [Primary Care Provider] - Please follow up with your Primary Care Physician in: 1 week. Test Results: Test results from this visit will be discussed in further detail at your follow-up appointment, if applicable. Please Follow Up With: [facility] When: 2 weeks. Please Follow Up With: Bryan CC Please Follow Up With: Bryan CC Please Follow Up With: Bryan ANGELA Please Follow Up With: Bryan ANGELA Proposed Discharge Date: 08/17/18 08/16/18 2346 <Electronically signed by Can Smith MD> Date Can Smith MD CC: Alisia Pacheco MD PROTHROMBIN TIME W/INR Collected: 08/16/2018 Status: F Source: [place] 5:20 AM [facility] REPOSITORY TYPE CODE TESTS RESULT OUT OF REFERENCE UNITS RANGE LAB L300.4150 11.7-14.9 SECONDS High PROTIME 45.6 LAB L300.4200 High alert INR 4.8 Result Comment: CRITICAL VALUE VERIFIED. CALLED TO [facility] 08/16/18 0607 Tahira Byrd. RESULTS READ BACK BY SAME . Performed By: #### L300.3900 #### [facility] [address] [place], [address] CBC W/DIFF, AUTOMATED Collected: 08/14/2018 Status: F Source: [place] 8:18 AM [facility] REPOSITORY TYPE CODE TESTS RESULT OUT OF RANGE REFERENCE UNITS LAB L100.1000 4.4-11.0 K/mm3 Normal WBC 10.8 LAB L100.1200 4.2-5.4 M/mm3 Low RBC 3.82 LAB L100.1300 12.0-15.0 g/dl Low HGB 9.2 LAB L100.1400 37-47 % Low HCT 30.2 LAB L100.1500 81-99 fL Low MCV 79.1 LAB L100.1600 27.0-32.0 pg Low MCH 24.1 LAB L100.1700 32-36 g/gl Low MCHC 30.5 LAB L100.1810 11.6-14.6 % High RDW CV 16.8 LAB L100.1820 35.1-43.9 fl High RDW SD 48.8 LAB L100.1900 150-450 K/mm3 Normal PLT 434 LAB L100.2000 6.2-12.0 fl Normal MPV 8.7 LAB L100.2100 47-70 % High NEUT% 86.5 LAB L100.2200 19-41 % Low LY% 8.8 LAB L100.2300 0-10 % Normal MONO% 4.4 LAB L100.2400 0-5 % Normal EO% 0.0 LAB L100.2500 0-1 % Normal BASO% 0.1 LAB L100.2550 0.0-0.9 % Normal IM GRAN % 0.200 Result Comment: IG% - Immature Granulocytes (promyelocytes, myelocytes and metamyelocytes) > 1% indicates that a LEFT SHIFT is Present. LAB L100.2620 2.0-7.7 X10 3/uL High Absolute Neut 9.3 LAB L100.2720 0.83-4.51 X10 3/ul Normal Absolute Lymph 0.95 Performed By: #### L100.0100 #### [facility] [address] [place] [address]. [place], [address] BASIC METABOLIC Collected: 08/14/2018 Status: F Source: [place] PROFILE (BMP) 8:18 AM [facility] REPOSITORY TYPE CODE TESTS RESULT OUT OF RANGE REFERENCE UNITS LAB L501.0100 74-106 mg/dL Normal GLU 93 Result Comment: Please note revised GLUCOSE reference range effective 2017. LAB L501.1000 7-18 mg/dL High BUN 22 LAB L501.1100 0.55-1.02 mg/dL Normal CREAT,SERUM 0.87 Result Comment: The validity of the calculated GFR AND GFRAA in patients over 70 years has not been determined. Clinical correlation is essential. LAB L501.1110 >60 mL/min Normal EST GFR 67 Result Comment: Non- GFR Calc LAB L501.1115 >60 mL/min Normal EST GFR - AA 81 Result Comment: GFR Calc LAB L501.1255 ml/min Normal Estimated CRCL 47.18 LAB L501.1300 10-20 RATIO High BUN/CRE 25.3 LAB L501.2200 8.5-10 mg/dL Normal .1 CA 8.6 LAB L501.5300 136-14 mmol/L Normal 5 NA 142 LAB L501.5600 3.5-5. mmol/L Normal 1 K 4.0 LAB L501.5900 98-107 mmol/L Normal CL 102 LAB L501.6100 21.0-3 mmol/L Normal 2.0 CO2 31.0 LAB L501.6200 5-15 Normal GAP 9 Performed By: #### L500.2500 #### [facility] [address] [facility] [facility] [place], [address] CHEST 1 VIEW Observed: 08/12/2018 Status: F Source: [place] (PORTABLE) 5:33 AM [facility] REPOSITORY [facility] Imaging Services [address] [place] [address] Chest 1 View (Portable) MR#: [id number] Acct: [id number] Name: PRISCILLA SHARPE Rep #: [id number] : 1940 F 78 From: Antony Damon MD PCP: Alisia Pacheco MD Status: ADM IN Study: Chest 1 View (Portable) Date of Exam: 08/12/18 Exam# [id number] Ordering Dr: Can Smith MD STUDY: X-RAY CHEST REASON FOR EXAM: Female, 78 years old. Chest pain TECHNIQUE: 1 view COMPARISON: August 09, 2018 FINDINGS: Atrial appendage clip is in place. There are median sternotomy wires and mitral valve prosthesis is also identified. The heart is enlarged. There is no pneumonia or failure and no pleural effusions. The atelectatic changes in the left lung base noted and appears to have resolved.. RAD/Chest 1 View (Portable) IMPRESSION: Cardiomegaly with resolved platelike atelectatic changes in the left lung base. No acute findings in the lungs Electronically Signed: Antony Damon MD at 6:10 EDT Tel , Service support , CC: Alisia Pacheco MD; Can Smith MD Medical Billing Specialist: Signed CNCO Observed: 08/10/2018 Status: COMPLETED Source: [place] 12:00 AM [facility] REPOSITORY Letter Text August 10, 2018 Priscilla Sharpe [address] [facility] [address] Dear Ms. Sharpe, The nurses and staff of -1 nursing unit at [facility] hope this letter finds you feeling well and progressing in your recovery. It was an honor for us to provide your nursing care. We know that placing our Patients First and maintaining a culture of continuous improvement, each and every day, are essential to the success of our organization. We want to hear from you. If you have any comments, questions or concerns about your hospital stay, please feel free to contact me, Ivan Jasmine RN at [phone] or e-mail [email or web address]. Additionally, you will receive a survey in the mail asking you to rate the care you received while in the hospital. Please take the time to complete and send back the survey. I personally review all the results and would appreciate your feedback. Please consider completing this survey for each individual visit. Thank you in advance for your participation and thank you for choosing the [facility] for your healthcare needs. Sincerely, Ivan Jasmine RN Nurse Retail Account Representative J5-1 Cardiovascular Surgery Step-down Unit PROTHROMBIN TIME W/INR Collected: 08/09/2018 Status: F Source: [place] 5:40 AM [facility] REPOSITORY TYPE CODE TESTS RESULT OUT OF RANGE REFERENCE UNITS LAB L300.4150 11.7-14.9 SECONDS High PROTIME 21.9 LAB L300.4200 Normal INR 1.9 Performed By: #### L300.3900 #### [facility] [address] [place], [address] CHEST 1 VIEW Observed: 08/07/2018 Status: F Source: [place] (PORTABLE) 4:02 PM [facility] REPOSITORY [facility] Imaging Services [address] [place] [address] Chest 1 View (Portable) MR#: [id number] Acct: [id number] Name: PRISCILLA SHARPE Rep #: [id number] : 1940 F 78 From: Korey Spence MD PCP: Alisia Pacheco MD Status: ADM IN Study: Chest 1 View (Portable) Date of Exam: 08/07/18 Exam# [id number] Ordering Dr: Can Smith MD STUDY: X-RAY CHEST REASON FOR EXAM: Female, 78 years old. Positive PPD TECHNIQUE: Frontal view of the chest COMPARISON: 05/11/2018 FINDINGS: The lungs are clear. There are no pleural effusions. There is no pneumothorax. The heart is enlarged, but stable. The patient is status post sternotomy. The visualized osseous structures are within normal limits. RAD/Chest 1 View (Portable) IMPRESSION: Stable cardiomegaly. Clear lungs. Electronically Signed: Korey Spence, at 16:50 EDT Tel , Service support , CC: Alisia Pacheco MD; Can Smith MD Medical Billing Specialist: Signed PROTHROMBIN TIME W/INR Collected: 08/07/2018 Status: F Source: [place] 6:41 AM [facility] REPOSITORY TYPE CODE TESTS RESULT OUT OF RANGE REFERENCE UNITS LAB L300.4150 11.7-14.9 SECONDS High PROTIME 19.2 LAB L300.4200 Normal INR 1.6 Performed By: #### L300.3900 #### [facility] [address] [place], [address] BASIC METABOLIC Collected: 08/07/2018 Status: F Source: [place] PROFILE (BMP) 6:41 AM [facility] REPOSITORY TYPE CODE TESTS RESULT OUT OF RANGE REFERENCE UNITS LAB L501.0100 74-106 mg/dL High GLU 108 Result Comment: Fasting Glucose result from 100 to 125 mg/dL suggests IMPAIRED HOMEOSTASIS per A.D.A. criteria. Please note revised GLUCOSE reference range effective 2017. LAB L501.1000 7-18 mg/dL Normal BUN 15 LAB L501.1100 0.55-1.02 mg/dL Normal CREAT,SERUM 0.87 Result Comment: The validity of the calculated GFR AND GFRAA in patients over 70 years has not been determined. Clinical correlation is essential. LAB L501.1110 >60 mL/min Normal EST GFR 67 Result Comment: Non- GFR Calc LAB L501.1115 >60 mL/min Normal EST GFR - AA 81 Result Comment: GFR Calc LAB L501.1255 ml/min Normal Estimated CRCL 47.18 LAB L501.1300 10-20 RATIO Normal BUN/CRE 17.2 LAB L501.2200 8.5-10 mg/dL Low .1 CA 8.3 LAB L501.5300 136-14 mmol/L Normal 5 NA 138 LAB L501.5600 3.5-5. mmol/L Normal 1 K 3.6 LAB L501.5900 98-107 mmol/L Low CL 97 LAB L501.6100 21.0-3 mmol/L High 2.0 CO2 33.0 LAB L501.6200 5-15 Normal GAP 8 Performed By: #### L500.2500 #### [facility] [address] [place], [place], [address] CBC W/DIFF, AUTOMATED Collected: 08/07/2018 Status: F Source: [place] 6:10 AM [facility] REPOSITORY TYPE CODE TESTS RESULT OUT OF RANGE REFERENCE UNITS LAB L100.1000 4.4-11.0 K/mm3 Normal WBC 9.4 LAB L100.1200 4.2-5.4 M/mm3 Low RBC 3.73 LAB L100.1300 12.0-15.0 g/dl Low HGB 9.4 LAB L100.1400 37-47 % Low HCT 29.8 LAB L100.1500 81-99 fL Low MCV 79.9 LAB L100.1600 27.0-32.0 pg Low MCH 25.2 LAB L100.1700 32-36 g/gl Low MCHC 31.5 LAB L100.1810 11.6-14.6 % High RDW CV 17.0 LAB L100.1820 35.1-43.9 fl High RDW SD 47.9 LAB L100.1900 150-450 K/mm3 Normal PLT 315 LAB L100.2000 6.2-12.0 fl Normal MPV 9.6 LAB L100.2100 47-70 % High NEUT% 71.0 LAB L100.2200 19-41 % Low LY% 13.9 LAB L100.2300 0-10 % High MONO% 10.2 LAB L100.2400 0-5 % Normal EO% 3.1 LAB L100.2500 0-1 % Normal BASO% 0.3 LAB L100.2550 0.0-0.9 % High IM GRAN % 1.500 Result Comment: IG% - Immature Granulocytes (promyelocytes, myelocytes and metamyelocytes) > 1% indicates that a LEFT SHIFT is Present. LAB L100.2620 2.0-7.7 X10 3/uL Normal Absolute Neut 6.7 LAB L100.2720 0.83-4.51 X10 3/ul Normal Absolute Lymph 1.31 Performed By: #### L100.0100 #### [facility] 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 The patient is a 78 year old Female with below past medical history with following admitted to [facility]. 07/30/2018 Patient underwent septal myectomy, mitral valve repair, left atrial appendage clipping. Post-operative course complicated by atrial fibrillation, but rate controlled. 08/06/2018 Admit to TCU with debility, here for rehabilitation, strengthening, prior to discharge home alone. Resident showed me her incisions, incisions on abdomen tender to palpation, infected, will treat. She also asked for something to help her sleep, will add Melatonin. Past Medical History Past Medical History (Chronic Problems): Chronic Problems (Last Reviewed 11/11/17 @ 09:57 by Mart Souza MD) Hypertrophic obstructive cardiomyopathy (HOCM) (Chronic) Mitral valve disorder (Chronic) Atrial fibrillation (Chronic) Bone metastasis (Chronic) Coronary artery disease (Chronic) Irritable bowel syndrome (Chronic) Prolonged QT syndrome (Chronic) Osteoporosis (Chronic) Chronic obstructive pulmonary disease (Chronic) B-cell lymphoma (Chronic) Non-Hodgkin lymphoma (Chronic) small B cell Hyperlipidemia (Chronic) Hypertension (Chronic) Chronic diastolic heart failure (Chronic) Nonrheumatic mitral (valve) insufficiency (Chronic) Acute respiratory failure with hypoxia (Chronic) Bladder cancer (Chronic) Medical History: Medical History (Last Reviewed 11/11/17 @ 09:57 by Mart Souza MD) Non-Hodgkin lymphoma (Chronic) C85.90 small B cell Hyperlipidemia (Chronic) E78.5 Hypertension (Chronic) I10 Chronic diastolic heart failure (Chronic) I50.32 Nonrheumatic mitral (valve) insufficiency (Chronic) I34.0 Atrial flutter with rapid ventricular response (Resolved) I48.92 Acute respiratory failure with hypoxia (Chronic) J96.01 Bladder cancer (Chronic) C67.9 COPD (chronic obstructive pulmonary disease) J44.9 History of cardioversion Onset Date: 10/07/17 Z98.890 05/2017 Hypertrophic obstructive cardiomyopathy (HOCM) I42.1 Long QT interval R94.31 Paroxysmal atrial fibrillation I48.0 Allergies allopurinol Allergy (Verified 05/11/18 11:30) Rash tramadol Adverse Reaction (Verified 05/11/18 11:30) dizzy Home Medications: Ambulatory Orders Medication Instructions Recorded Surgical History: Surgical History (Last Reviewed 11/11/17 @ 09:57 by Mart Souza MD) History of bladder surgery Z98.890 tumor excision Surgical History: - - Bladder surgery per Dr. Monson, Septal myectomy, mitral valve repair, left atrial appendage clipping. 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 history Lives: Spouse/ Significant Other Smoking Status: Former smoker Tobacco Use: Non-smoker Alcohol: None Drugs: None - *Family History Maternal Family History: Family History (Last Reviewed 11/11/17 @ 09:57 by Mart Souza MD) Mother Heart disease Hypertension Father Heart disease Hypertension History Items: Heart Disease, Hypertension Paternal Family History: Family History (Last Reviewed 11/11/17 @ 09:57 by Mart Souza MD) Mother Heart disease Hypertension Father Heart disease Hypertension History Items: Heart Disease, Hypertension Review of Systems Constitutional: Denies: Chills, Fever, Weight Change HEENT: Denies: Head Aches, Sinus Congestion, Sinus Drainage Cardiovascular: Denies: Chest Pain, Palpitations Respiratory: Denies: Cough, Shortness of breath at rest, Sputum production Gastrointestinal: Denies: Abdominal Pain, Nausea, Vomiting Genitourinary: Denies: Dysuria Musculoskeletal: Denies: Joint Pain, Joint Tenderness Skin: Denies: Rash, Wounds Neurological: Denies: Numbness, Tingling, Focal weakness Psychiatric: Denies: Anxiety, Depression, Homicidal Ideations, Suicidal Ideations Hematologic/ Lymphatic: Denies: Easy Bruising, Easy Bleeding VTE Information - Inpt Only VTE Present on Admission: No VTE Mechan Device Prophylaxis: Knee High MARIA LUZ Hose VTE Pharm Prophylaxis ordered?: No Reason prophylaxis not ordered:: Treatment Not Indicated - Physical Exam General: Alert, Oriented x3, Cooperative HEENT: Atraumatic, PERRLA, EOMI, Normocephalic Neck: Supple, No JVD, Negative Carotid Bruits Lungs: Clear to auscultation, Normal air movement Cardiovascular: Regular rate, No murmurs Abdomen: Bowel Sounds Present, Soft, Non Tender Extremities: No edema, Capillary Refill Less than 3 Seconds Skin: No rashes, No breakdown, Incision - Sternal clean, dry intact. Abdominal incisions tender, erythematous. Musculoskeletal: No Tenderness to Palpation of Joints or Extremities Neurological: Cranial nerves II-XII grossly intact Psych/Mental Status: Normal Affect, Appropriate Assessment/Plan All Active Problems (Last Reviewed 11/11/17 @ 09:57 by Mart Souza MD) Atrial flutter with rapid ventricular response (Resolved) 78 year old female with below past medical history significant for hypertrophic obstructive cardiomyopathy, underwent septal myectomy, mitral valve repair, left atrial appendage clipping 07/30/2018, complicated by post-operative atrial fibrillation, admitted to TCU with debility, here for rehabilitation, strengthening, prior to discharge home alone. * Debility - PT/OT. * Pain - Tylenol 1000MG Q8H PRN mild pain, Oxycodone 5MG Q6H PRN moderate pain. * Bowel - Miralax 17GM daily, Senna/colace 1 tablet BID, Dulcolax 10MG PO daily PRN. * Pneumonia vaccination - Administer Prevnar 13 and/or Pneumovax 23 as necessary. * DVT prophylaxis - Not necessary, already on Warfarin. * COPD - Incruse 1 inhalation daily, Albuterol MDI 2 puffs Q4H PRN. * Coronary artery disease - Aspirin 81MG daily. * Vitamin D deficiency - D3 1000IU daily. * Fluid overload - Lasix 40MG daily. * Hypomagnesemia - Magnesium Oxide 400MG daily. * Nutrition - MVI daily. * GERD - Pantoprazole 20MG daily. * Depression - Paroxetine 10MG daily. * Hypokalemia - KCL 10MEQ daily. * Atrial fibrillation - Warfarin 2MG daily, follow INR. * Incision cellulitis - Keflex 500MG BID, Doxycycline 100MG BID x 7 days. * Insomnia - Melatonin 10MG QHS. 08/06/18 1807 <Electronically signed by Can Smith MD> Date Can Smith MD Cosigner Signature: Date (if applicable) CC: Alisia Pacheco MD; Can Smith MD Signed CNDS Observed: 08/06/2018 Status: COMPLETED Source: [place] 1:21 PM [facility] [place] REPOSITORY O ID: [id number] Author: Sudeep Hernandez Service: Cardiac Surgery Author Type: Nurse Practitioner Type: Discharge Summaries Filed: 08/06/2018 1:27 PM Note Text: Department of Cardiothoracic Surgery Discharge Summary PATIENT NAME: Priscilla Sharpe ADMISSION DATE: 07/30/2018 DISCHARGE DATE: 08/06/2018 Attending Physician/Surgeon: Jamie Jo Primary Service: Hvi Cts Team E Code Status: Not on file [facility] Primary Podiatry Doctor: Dr. 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 and a history of paroxysmal atrial fibrillation Reason for Hospitalization: Severe dynamic left ventricular outflow tract obstruction Operations during Hospitalization: Septal myectomy and mitral valve repair consisting of excision of a prolapsing segment of the P3 scallop of the mitral valve, annuloplasty with a #33 Rm band, bilateral pulmonary vein isolation with multiple upper occasions of the AtriCure radiofrequency clamp and clipping of the left atrial appendage with a 50 mm AtriCure clip Hospital Course: * How was the Reason for Hospitalization Addressed: Indication for Surgery: HOCM and mitral insufficiency Preop LVEF: Normal RVF: Normal Postop LVEF: Normal RVF: Mild EKG: SR with 1st degree AVB Cards: Basil PMH/PSHx: CAD, HTN, PAF (cardioversion 05/18, 10/18),moderate pulmonary hypertension, Long QT syndrome, 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+ pack years (quit 2012), small cell lymphoma s/p chemotherapy, IBS Airway Difficulty: Grade I - easy Pacing wires: Yes: Ventricular: CUT all pacing wires on 08.05.2018. Surgeries and Major Events: 07/30/2018: Primary Sternotomy; Septal Myectomy (6g); MVr (P2 Triangular resection, 33 Rm band), bilateral pulmonary vein isolation, clipping of the left atrial appendage - 2 pump runs d/t hypokenetic RV. Signout: -Rhythm: Afib rate 50-60. EP consulted (recommend DCCV in 6 weeks, (+) chronotropic response with activity and asymptomatic, hold AVN blocking agents). Resume coumadin at home dose. PT/INR therapeutic at 2.4. PMW cut without incident 08.05.2018. -Hypoxia - On 1L, Diuresis AND aggressive BPH. Has Moderate COPD per PFT's. On O2 at home 2L. -RADHA/FVO- Continue lasix 40 q 12. Renal function improving. Will monitor. -Diarrhea - Now resolved. Discharge tomorrow 08.06.2018. 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 Discharge Planning: Anticipated Discharge Date: 08.06.2018 Barriers to Discharge: Atrial Fibrilation: In Process, Other: Rhythm. Needs SNF authorization Care Management Discharge Needs: Needs Prior to Discharge: OT/PT Evaluation;Insurance Authorization * What were the Active Issues: FVO, atrial fibrillation * Surgical Pathology/Microbiology:FINAL DIAGNOSIS 1. Septal muscle, myectomy (A) - Moderate myocyte hypertrophy with focal mild disarray. - Moderate interstitial fibrosis with replacement fibrosis. - Mild intramural coronary artery dysplasia. - Endocardial fibrosis. 2. Mitral valve, segmental resection (B) - Myxoid degeneration. * Hospital Course Complicated by: atrial fibrillation, FVO, acute kidney injury * Extended Hospital Stay Due to: n/a * Specific Medication Changes: see below * Pain: none * Surgical Incisions/Wounds: healing appropriately * Patient Condition at Discharge: Improved * Disposition: Care Home Facility Problem List: Patient Active Hospital Problem List: Transition of care performed with sharing of clinical summary (08/03/2018) Essential hypertension (10/06/2008) MR (mitral regurgitation) () Afib (HCC) (05/20/2017) HOCM (hypertrophic obstructive cardiomyopathy) (HCC) (05/12/2018) COPD (chronic obstructive pulmonary disease) ([facility]) (07/30/2018) Long Q-T syndrome (01/21/2017) Anxiety (07/31/2018) Discharge planning issues (07/29/2018) Consults: Electrophysiology for atrial fibrillation with slow ventricular response Procedures Performed and Major Radiology: echocardiogram Information Provided to the Patient: Patient given copy of After Visit Summary which included activity instructions, diet instructions, wound care instructions, medication instructions and follow up appointment ALLERGIES Allergen Reactions - Zyloprim [Allopurin* Rash - Environmental [Othe* Intolerance rhinitis - Tramadol Other: See Comments made patient woozy/dizzy Discharge Medications: Current Discharge Medication List START taking these medications acetaminophen (TYLENOL) 325-650 mg 325-650 mg by ORAL/FEEDING TUBE route every 4 hours as needed for Pain (for mild to moderate pain). oxyCODONE IR (ROXICODONE) 5 mg Take 5 mg by mouth every 6 hours as needed for Pain (for severe pain). Earliest Fill Date: 08/06/18 Qty: 28 tablet Refills: 0 Associated Diagnoses:Postoperative pain therapeutic multivitamin (THERA VITAMIN) 1 tablet Take 1 tablet by mouth daily with breakfast. aspirin 81 mg Take 81 mg by mouth once daily. pantoprazole DR (PROTONIX) 20 mg Take 20 mg by mouth DAILY (6 AM). CONTINUE these medications which have NOT CHANGED potassium chloride (K-TAB) 10 mEq Take 10 mEq by mouth once daily. umeclidinium-vilanterol (ANORO ELLIPTA) 62.5-25 mcg/actuation inhaler Inhale one inhalation as instructed once daily Qty: 60 Each Refills: 5 Associated Diagnoses:Pulmonary emphysema, unspecified emphysema type ([facility]) furosemide (LASIX) 40 mg Take 40 mg by mouth once daily. Qty: 30 tablet Refills: 11 Comments: Take 1 tablet as needed for weight gain 3 lbs in 3 days or if increased shortness of breath PARoxetine (PAXIL) 10 mg Take 10 mg by mouth once daily. Qty: 30 tablet Refills: 5 Associated Diagnoses:Anxiety about health warfarin (COUMADIN) 2 mg Take 2 mg by mouth once daily. magnesium oxide (MAG-OX) 400 mg Take 400 mg by mouth once daily. Qty: 30 tablet Refills: 5 albuterol HFA (PROVENTIL HFA, VENTOLIN HFA) 2 Puffs Inhale 2 Puffs as instructed every 4 hours as needed for Wheezing/Shortness of Breath. Qty: 1 Inhaler Refills: 0 Cholecalciferol (Vitamin D3) 1,000 Units Take 1,000 Units by mouth once daily. Refills: 0 STOP taking these medications mupirocin (BACTROBAN) 2 % ointment Comments: Reason for Stopping: amoxicillin (POLYMOX, AMOXIL) 500 mg capsule Comments: Reason for Stopping: LORazepam (ATIVAN) 0.5 mg Comments: Reason for Stopping: COMPOUNDED PRESCRIPTION Comments: Reason for Stopping: amiodarone (PACERONE) 200 mg Comments: Reason for Stopping: atenolol (TENORMIN) 25 mg Comments: Reason for Stopping: GLUCOSAM SUL NA/CHONDR WEATHERS A NA (GLUCOSAMINE AND CHONDROIT SUL.NA ORAL) 1 tablet Comments: Reason for Stopping: Transitions of Care Critical Issues: Outpatient Management: * Are there important medication changes and/or outstanding issues that need to be addressed: CV atrial fibrillation and FVO * What is the plan for follow up: as below 1. Have requested an appointment for you with the [facility] Nurse Practitioner in 10-14 days. If you have not heard from CC in 3 business days regarding this appointment then please call [phone] to schedule this appointment. 2. Make an appointment to see your PCP in 4-5 days after discharge from Care Home Facility. Make an appointment to have your PT/INR checked. 3. Have requested an appointment to see your [facility] educational administration teacher, Dr. Simi Argueta, in 2-3 weeks after discharge. Please discuss making an appointment with an Freight Engineer to manage Atrial Fibrillation/possible Cardioversion. 4. If you have questions regarding your post-operative cardiac surgery, please call . From 7 a.m. to 7 p.m. on regular business days, calls will be answered by experienced cardiovascular nurses to address your concerns. During off-business hours, calls we be answered by the nurse deputy sheriff civil division. 5. [facility] will notify you via phone/mail of any ongoing appointments within the [facility] network. Call if you have not received your [facility] follow-up appointments within 3 business days of discharge. Future Appointments: Future Appointments Date Time Provider Department Center 08/16/2018 1:30 PM [id number] ARGUETA CAWSTR [facility] 09/14/2018 1:00 PM [id number] PREP [facility] RCTWS [facility] 09/14/2018 1:30 PM [id number] [facility] MOB LABMOB [facility] 09/14/2018 2:00 PM [id number] [facility] (I-STAT) [facility] 09/16/2018 4:00 PM [id number]-ZSSCARI MARTINEZ HEMAWS [facility] 09/27/2018 2:20 PM [id number]-RWNGLZUHALISIA PACHECO INTMWS [facility] 11/08/2018 1:00 PM [id number] [facility] Highest Readmission Risk Score: 30 The 30 day readmissions risk score is derived from an internally validated risk model which evaluates patient level characteristics, utilization history, medication orders and lab results up until the day of discharge. Patients with a score of 40 or above are considered highest risk for readmission. Specific patient level drivers will be listed at the bottom of the summary. This patient?s risk for 30-day readmission is determined using the following contributing drivers Pt variables contributing to increased readmission risk: 18 Active Medication Orders 14 Most Recent BUN Result 8.4 First Resulted Calcium During Admission 1 Insurance - Medicare 1 History of COPD 1 Active Anticoagulant Electronically SIGNED by Licensed Independent Practitioner: Sudeep Hernandez APRN.CNP PROGRESS Observed: 08/06/2018 Status: COMPLETED Source: [place] 1:12 PM [facility] REPOSITORY [facility] ID: [id number] Author: Sudeep Hernandez Service: Cardiac Surgery Author Type: Nurse Practitioner Type: Progress Notes Filed: 08/06/2018 1:19 PM Note Text: [facility] POSTOP PROGRESS NOTE Day of Surgery:07/30/2018 S/P SURGERY: Septal myectomy and mitral valve repair consisting of excision of a prolapsing segment of the P3 scallop of the mitral valve, annuloplasty with a #33 Rm band, bilateral pulmonary vein isolation with multiple upper occasions of the AtriCure radiofrequency clamp and clipping of the left atrial appendage with a 50 mm AtriCure clip INTERVAL EVENTS / PERTINENT ROS: No acute issues overnight Postop echo done this morning Remains in atrial fibrillation INR 2.4 Ready for transfer to SNF Rhythm: AFIB 46-68 Intake/Output Summary (Last 24 hours) at 08/06/18 1312 Last data filed at 08/06/18 1200 Gross per 24 hour Intake 820 ml Output 2250 ml Net -1430 ml EKG: most recent image reviewed, most recent report reviewed TELE: most recent recordings reviewed CXR: most recent image reviewed, most recent report reviewed Echocardiogram: most recent report reviewed PHYSICAL EXAM: BP 149/65 Pulse (!) 54 Temp 36.3 ?C (97.4 ?F) (Oral) Resp 16 Ht 167.6 cm (5' 6) Wt 70.3 kg (155 lb) SpO2 91% BMI 25.02 kg/m? Neuro: AANDO x 3 moves all extremities with no apparent weakness CV: no jugular venous distention Heart Exam: RRR without murmur, gallop, or rubs. No ectopy. Resp: diminished breath sounds at bilateral bases. On 1L O2 via NC. Abd: The abdomen is soft, nontender, nondistended; BS normal; no masses or organomegaly noted. Skin: Skin color, texture, turgor normal, no suspicious rashes or lesions Ext: Trace edema Surgical incisions: clean, dry and intact Chest tube: No Pacer wires: No. HISTORY, ASSESSMENT AND PLAN: Problem Transition of Care Performed With Sharing of Clinical Summary Indication for Surgery: HOCM and mitral insufficiency Preop LVEF: Normal RVF: Normal Postop LVEF: Normal RVF: Mild EKG: SR with 1st degree AVB Cards: Basil PMH/PSHx: CAD, HTN, PAF (cardioversion 05/18, 10/18),moderate pulmonary hypertension, Long QT syndrome, 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+ pack years (quit 2012), small cell lymphoma s/p chemotherapy, IBS Airway Difficulty: Grade I - easy Pacing wires: Yes: Ventricular: CUT all pacing wires on 08.05.2018. Surgeries and Major Events: 07/30/2018: Primary Sternotomy; Septal Myectomy (6g); MVr (P2 Triangular resection, 33 Rm band), bilateral pulmonary vein isolation, clipping of the left atrial appendage - 2 pump runs d/t hypokenetic RV. Signout: -Rhythm: Afib rate 50-60. EP consulted (recommend DCCV in 6 weeks, (+) chronotropic response with activity and asymptomatic, hold AVN blocking agents). Resume coumadin at home dose. PT/INR therapeutic at 2.4. PMW cut without incident 08.05.2018. -Hypoxia - On 1L, Diuresis AND aggressive BPH. Has Moderate COPD per PFT's. On O2 at home 2L. -RADHA/FVO- Continue lasix 40 q 12. Renal function improving. Will monitor. -Diarrhea - Now resolved. Discharge tomorrow 08.06.2018. 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 Discharge Planning: Anticipated Discharge Date: 08.06.2018 Barriers to Discharge: Atrial Fibrilation: In Process, Other: Rhythm. Needs SNF authorization Care Management Discharge Needs: Needs Prior to Discharge: OT/PT Evaluation;Insurance Authorization Hocm (Hypertrophic Obstructive Cardiomyopathy) (Hcc) History: HOCM Assessment: 07.30.2018: S/p Septal Myectomy (6g) Plan: echo done with good results Afib (Hcc) History: Admitted in SR with 1st degree AVB. On Warfarin, po amio, atenolol. S/p DCCV x 2 (07.17 and 12.17). Assessment: Currently afib with CVR to SVR. EP on consult. S/p bilateral pulmonary vein isolation with multiple upper occasions of the AtriCure radiofrequency clamp and clipping of the left atrial appendage with a 50 mm AtriCure clip. PMW CUT. (+) chronotropic response with activity. PT/INR therapeutic at 2.4 Plan: Continue coumadin 2 mg daily. Monitor. Avoid AVN blocking agents. Will need to f/u for DCCV in 6 weeks. 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 Echo done with good results. Recommend repeat Echo every 3 months. Essential Hypertension History: On Atenolol, po lasix pre-op. Assessment: Currently normotensive Plan: Continue lasix (FVO also). Continue to hold AVN blocking agents d/t Afib with CVR /intermittent SVR. Monitor and adjust medications accordingly. Copd (Chronic Obstructive Pulmonary Disease) (Hcc) History: Former smoker (50+ pk/years). Spirometery pre-op with moderate obstruction. On albuterol, anoro-ellipta pre-op. On O2 -2L pre-op qhs. Assessment: Currently on O2 at 2L, pulmicort, albuterol. Plan: Continue Pulmicort and albuterol. Wean O2 to 2L (pre- op dosage). Anxiety History: On Paxil, prn Ativan. Assessment: Stable. Cooperative. Plan: Continue to monitor. On prn Ativan. Discharge Planning Issues Discharge to SNF 08.06.2018. Lives in [facility], alone but has supportive family. PT/OT/RT recommend SNF. 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 DAILY STEP DOWN CHECKLIST FOR CATHETER RELATED INFECTION PREVENTION CVC, PICC, Paul and/or Permacath present? No Does the patient have a urinary catheter beyond POD 2? No VTE Risk Assessment: High risk VTE Mechanical and/or Pharmacologic Prophylaxis: IPC Device and GCS Labs and medications reviewed in Epic Case discussed in depth with: Dr. Oliveira SIGNATURE: Sudeep Hernandez APRN.CNP PATIENT NAME: Priscilla Sharpe DATE: August 06, 2018 TIME: 1:12 PM PAGER/CONTACT #: [phone] ETX#[id number] CASE MANAGEM Observed: 08/06/2018 Status: COMPLETED Source: [place] 12:52 PM [facility] REPOSITORY [facility] ID: [id number] Author: Alissa Garcia Service: Care Management Author Type: (none) Type: Care Mgt Progress Note Filed: 08/06/2018 12:53 PM Note Text: CARE MANAGEMENT PROGRESS NOTE SERVICE DATE: 08/06/2018 SERVICE TIME: 12:48 PM LOS: 0 days IM letter given to patient on 08/06/18. SIGNATURE: Roberto Garayrical Assistant PATIENT NAME: Priscilla Sharpe DATE: August 06, 2018 TIME: 12:52 PM PAGER/CONTACT #: [phone] CASE MANAGEM Observed: 08/06/2018 Status: COMPLETED Source: [place] 12:21 PM [facility] REPOSIT[facility] ID: [id number] Author: Travon ElizondoRn) BHARATH Potts Service: Care Management Author Type: Registered Nurse Type: Care Mgt Progress Note Filed: 08/06/2018 12:26 PM Note Text: CARE MANAGEMENT DISCHARGE NOTE SERVICE DATE: 08/06/2018 SERVICE TIME: 12:21 PM LOS: 0 days Admission Date: 07/30/2018 DISCHARGE ARRANGEMENT (list agency and phone number) half-way facility: Was an expedited discharge program used? No [facility] CARE[facility] ASSESSMENT: Caregiver is ready, willing and able to meet the patient's needs as recommended by the inter-professional team? No Patient's transition needs and plan for meeting these needs: SNF placement Does the patient have an acute stroke diagnosis, or has the patient had a stroke during this admission? No HANDOFF COMMUNICATION: NA TRANSPORTATION ARRANGEMENTS: Car Family ADDITIONAL CONTACT RESOURCES: The patient is medically ready for discharge, today, per Eliseo Hernandez AUTOMATIC PACKER OPERATOR ([facility]). SNF is willing to accept the patient today. Insurance authorization was obtained for rehab stay. Pt and her son was updated and approved all arrangements. Final discharge instructions were sent to accepting SNF via [employer]. Chart packet was sent with the patient. J51 RN, Verena, was provided the rehab unit's telephone number for transfer report. SIGNATURE: Travon Potts RN PATIENT NAME: Priscilla Sharpe DATE: August 06, 2018 TIME: 12:21 PM PAGER/CONTACT #: [phone] or [phone] NUTRITION Observed: 08/06/2018 Status: COMPLETED Source: [place] 10:23 AM [facility] REPOSITORY [facility] ID: [id number] Author: Portia Agustin (Tech) Service: Nutrition Therapy Author Type: Log Handling Equipment Operator Type: Nutrition Filed: 08/06/2018 10:24 AM Note Text: NUTRITION THERAPY FOLLOW-UP NOTE SERVICE DATE: 08/06/2018 SERVICE TIME: 830am Anthropometrics: Height: 167.6 cm (5' 6) Current Weight: Weight: 70.3 kg (155 lb) Body mass index is 25.02 kg/m?. Loss of lean body mass/visual muscle wasting: no Admitting Diagnosis: Cardiac outflow obstruction (HCC) [I42.1] Ischemic mitral valve dysfunction [I34.9] AF (paroxysmal atrial fibrillation) (HCC) [I48.0] Present Diet Order: Carbohydrate Controlled, Heart Healthy 2 gm Na and Fluid restriction of 1500ml/day Is the patient having any pain that is interfering with oral/enteral intake? No Allergies: ALLERGIES Allergen Reactions - Zyloprim [Allopurin* Rash - Environmental [Othe* Intolerance rhinitis - Tramadol Other: See Comments made patient woozy/dizzy Reason for Visit: Nutrition screen: LOS > 6 days Nutrient intake assessment: Current intake of meals: 75 - 100% Patient concerns/Issues: patient has a good intake and appetite. Food preferences obtained. pended boost 2 x day with meals. Will continue to monitor for changes and patients nutritional needs. Nursing Admission Assessment Malnutrition Score Tool: 0 Plan of Care: Recommendation No problems noted at this time. Will screen again within 7 days boost 2 x day with meals. Discharge Plan: home on heart healthy carbohydrate controlled diet MNT Billing Type: Routine Care/15 min 1 unit SIGNATURE: Portia Agustin DTR PATIENT NAME: Priscilla Sharpe DATE: August 06, 2018 TIME: 10:23 AM PAGER: [phone] PROGRESS Observed: 08/06/2018 Status: COMPLETED Source: [place] 9:38 AM [facility] REPOSITORY [facility] ID: [id number] Author: Nora (Rn) BHARATH Jasmine Service: (none) Author Type: Registered Nurse Type: Progress Notes Filed: 08/06/2018 9:39 AM Note Text: 08/06/2018 9:39 Bedside Echo + Amyl Nitrate Order reviewed by nurse:yes Medications: Amyl Nitrite - dosage 0.3 ml ampule via inhalation Reaction: No Nora Jasmine RN PROTIME Collected: 08/06/2018 Status: F Source: [place] 4:37 AM [facility] REPOSITORY TYPE CODE TESTS RESULT OUT OF RANGE REFERENCE UNITS LAB PSEC 9.7-13.0 sec High PT Sec 23.4 LAB INR 0.9-1.3 High PT INR 2.4 Result Comment: Vitamin K Antagonist (VKA) Therapeutic Range: INR 2 to 3 (Target INR of 2.5) Note: For patients treated with VKA drugs, such as warfarin, the [place] [employer] 2012 Guideline recommends a therapeutic INR range of 2 to 3 (target INR of 2.5). This recommendation includes high-risk patients with antiphospholipid syndrome with previous arterial or venous thromboembolism, current-generation mechanical or bioprosthetic aortic heart valve replacement. Note: Patients with mechanical aortic valve replacement and additional risk factors for thromboembolic events (atrial fibrillation, previous thromboembolism, LV dysfunction, hypercoagulable conditions) or an older generation mechanical AVR (i.e., ball in-Cage) or any mechanical MVR should have a INR therapeutic range of 2.5 to 3.5 (target INR of 3). Toni ROBISON, et al. Chest 2012, 141:7S-47S Lilli WADLRON, et al. [facility] 2017, 70: 252-289 Performed By: #### PT, CBC, CMP #### [facility] [address] [place], [place] [address] CBC Collected: 08/06/2018 Status: F Source: [place] 4:37 AM [facility] REPOSITORY TYPE CODE TESTS RESULT OUT OF REFERENCE UNITS RANGE LAB WBC 3.70-11.00 k/uL WBC 8.03 LAB RBC 3.90-5.20 m/uL Low RBC 3.74 LAB HGB 11.5-15.5 g/dL Low Hemoglobin 9.2 LAB HCT 36.0-46.0 % Low Hematocrit 29.4 LAB MCV 80.0-100.0 fL Low MCV 78.6 LAB MCH 26.0-34.0 pG Low MCH 24.6 LAB MCHC 30.5-36.0 g/dL MCHC 31.3 LAB RDWCV 11.5-15.0 % RDW-CV High 16.4 LAB PLTCT 150-400 k/uL Platelet Count 266 LAB MPV 9.0-12.7 fL MPV 9.8 LAB ABSNUC <0.01 k/uL Absolute nRBC <0.01 Performed By: #### PT, CBC, CMP #### [facility] [address] [place], [place] [address] COMP METABOLIC PANEL Collected: 08/06/2018 Status: F Source: [place] 4:37 AM [facility] REPOSITORY TYPE CODE TESTS RESULT OUT OF REFERENCE UNITS RANGE LAB TP 6.3-8.0 g/dL Low Protein, Total 5.8 LAB ALB 3.9-4.9 g/dL Low Albumin 3.3 LAB CA 8.5-10.2 mg/dL Calcium, Total 8.7 LAB TBIL 0.2-1.3 mg/dL Bilirubin, Total 0.3 LAB ALKP 34-123 U/L Alkaline High Phosphatase 129 LAB AST 13-35 U/L AST 27 LAB GLU 74-99 mg/dL Glucose High 105 Result Comment: The [place] Diabetes Association (ADA) provides guidance for cutoff values for fasting glucose and random glucose. The ADA defines fasting as no caloric intake for at least 8 hours. Fas ting plasma glucose results between 100 to 125 mg/dL indicate increased risk for diabetes (prediabetes). Fasting plasma glucose results greater than or equal to 126 mg/dL meet the criteria for diagnosis of diabetes. In the absence of unequivocal hyperglycemia, results should be confirmed by repeat testing. In a patient with classic symptoms of hyperglycemia or hyperglycemic crisis, random plasma glucose results greater than or equal to 200 mg/dL meet the criteria for diagnosis of diabetes. Reference: Standards of Medical Care in Diabetes 2016, [place] [employer] Association. Diabetes Care. 2016.39(Suppl 1). LAB BUN 7-21 mg/dL BUN 14 LAB CRET 0.58-0.96 mg/dL Creatinine 0.96 LAB NA 136-144 mmol/L Sodium 136 LAB K 3.7-5.1 mmol/L Potassium 4.2 LAB CL 97-105 mmol/L Chloride Low 95 LAB CO2 22-30 mmol/L CO2 30 LAB AGAP 9-18 mmol/L Anion Gap 11 LAB ALT 7-38 U/L ALT 28 LAB GFRAA eGFR- Amer. >60 LAB GFRNAA . eGFR-All Other Races 56 Result Comment: eGFR (Estimated GFR) Units of measure: mL/min/1.73 meters squared eGFR is derived from the reexpressed MDRD Study equation using the following parameters: serum creatinine, age, gender and race. The creatinine assay has been calibrated to be traceable to IDMS. An eGFR <60 mL/min/1.73m2 for >3 months is consistent with chronic kidney disease. Refer to KDOQI guidelines for clinical interpretation. In patients with unstable renal function, e.g. those with acute kidney injury, the eGFR may not accurately reflect actual GFR. Performed By: #### PT, CBC, CMP #### [facility] [address] [place], [place] [address] Observed: 08/06/2018 Status: F Source: [place] URINE CULTURE 3:10 AM [facility] REPOSITORY Sp. Request/Comment: - Specimen received in preservative Culture Result - >=100,000 CFU/ml Escherichia coli --> ABNORMAL ALERT ORGANISM: Escherichia coli METHOD: Minimum inhibitory concentration(Vitek) Antibiotic Interp HUSSEIN Status Ampicillin SUSCEPTIBLE <=2 F Gentamicin SUSCEPTIBLE <=1 F Trimeth sulfameth RESISTANT >=320 F Cefazolin SUSCEPTIBLE <=4 F CLSI breakpoints for therapy of uncomplicated UTI's due to E.coli, K.pneumoniae, and P.mirabilis were applied and may be used to predict the activity of oral agents(cefaclor, cefdinir, cefpodoxime, cefp rozil, cefuroxime, cephalexin, loracarbef). Ciprofloxacin RESISTANT >=4 F Nitrofurantoin SUSCEPTIBLE <=16 F Cefepime SUSCEPTIBLE <=1 F Piperacillin/Tazobac SUSCEPTIBLE <=4 F Ampicillin Sulbact SUSCEPTIBLE <=2 F Ceftriaxone SUSCEPTIBLE <=1 F Meropenem SUSCEPTIBLE <=0.25 F Ertapenem SUSCEPTIBLE <=0.5 F Performed By: #### URCUL #### [facility] [address] [place] [address] ALLIED HEALTH Observed: 08/05/2018 Status: COMPLETED Source: [place] 3:44 PM [facility] REPOSIT[facility] ID: [id number] Author: Chaplain Reaves (Chaplain) Service: Healing Service Author Type: Sequins Spooler Type: Allied Health Filed: 08/05/2018 4:08 PM Note Text: HEALING SERVICES THERAPY NOTE SERVICE DATE: 08/05/2018 SERVICE TIME: 1544 INTERVENTIONAL FOCUS: Other: Introductory visit Visit With: Patient and Family Urgency of Visit: Routine Type of Visit: Patient Not Available, asleep in bedside chair Patient and/or Family currently not available to speak with. Left materials and contact information at bedside. SIGNATURE: Justin Jaimes MDiv., Healing Services Specialist PATIENT NAME: Priscilla Sharpe DATE: August 05, 2018 TIME: 4:07 PM PAGER/CONTACT #: [phone] CASE MANAGEM Observed: 08/05/2018 Status: COMPLETED Source: [place] 3:39 PM [facility] REPOSIT[facility] ID: [id number] Author: Travon ElizondoRnDheeraj Potts RN Service: Care Management Author Type: Registered Nurse Type: Care Mgt Progress Note Filed: 08/05/2018 3:44 PM Note Text: CARE MANAGEMENT PROGRESS NOTE SERVICE DATE: 08/05/2018 SERVICE TIME: 3:39 PM LOS: 0 days Needs Prior to Discharge: OT/PT Evaluation;Insurance Authorization The patient is currently skilled for SNF rehab by therapy. At this time, the patient is projected to be dc ready on 08/06. Updated referral including updated therapy notes were sent to requested rehab center for final acceptance and insurance approval. Pt and her family were updated. Family is projecting to provide transportation. SIGNATURE: Travon Potts RN PATIENT NAME: Priscilla Sharpe DATE: August 05, 2018 TIME: 3:39 PM PAGER/CONTACT #: [phone] or [phone] THERAPY NT Observed: 08/05/2018 Status: COMPLETED Source: [place] 3:20 PM [facility] REPOSIT[facility] ID: [id number] Author: Rose (Ot/L) Jyoti Service: Occupational Therapy Author Type: Occupational Therapist Type: Therapy (PT/OT/Speech/Resp) Filed: 08/05/2018 3:30 PM Note Text: Occupational Therapy Evaluation SERVICE DATE: 08/05/2018 SERVICE TIME: 1324 to 1424 ROOM: [place] [address] Recommended Discharge Disposition: Subacute/SNF Justification For Post Acute Needs: Anticipate that patient will require daily (5x/wk) skilled therapy in a post-acute facility setting at the time of acute hospital discharge;May not tolerate higher intensity programing;Willing to participate;Motivated;Living the community premorbidly;Good family support;Cognition intact;Anticipated community discharge Anticipated Discharge Needs: Physical Assist at Home Physical Assist at Home for: Ambulation;Cleaning;Laundry;Meals;Stairs;Safety;Self Care;Shopping;Transportation OT Recommendations to Nursing: To Bathroom for ADL?s /and or Toileting;With assist of 1 person OT 6 Clicks Score: 20 Precautions/Activity Restrictions: Sternal ASSESSMENT: Patient presents with decreased strength, endurance, balance, functional mobility and functional transfers resulting in decreased ability to perform self care safely and independently. 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 Pt requires skilled OT services to maximize safety and independence while in acute hospital setting. OT recommending d/c to SNF to improve ability to perform self care and functional mobility safely and at highest level of independence. Patient Disposition at Start of Session: Supine in Bed Patient Disposition at End of Session: OOB in Chair;Call Zamora in Reach;Chair Alarm Tolerated Full Session Occupational Therapy Problem List: Impaired Self Care;Safety Deficits;Pain;Decreased Activity Tolerance;Decreased Range Of Motion;Decreased Strength;Functional Mobility Impairment;Balance Impaired Patient /Caregiver Goals: Go Home Goals for Plan of Care: Grooming with: Set Up Upper Body Bathing with: Modified Independent Upper Body Dressing with: Modified Independent Lower Body Bathing with: Stand By Assistance Lower Body Dressing with: Stand By Assistance Toilet Hygiene with: Stand By Assistance Chair Transfer with: Stand By Assistance Toilet Transfer with: Stand By Assistance Tub Transfer with: Stand By Assistance Tolerate (minutes of functional activity): 45 Functional Activity with: Stand By Assistance Demonstrate Competence With Education with: Independent Progress Toward Goals: Progressing as expected Rehab Potential: Good PLAN: Treatment Frequency (times per week): 2 Current admission Treatment Interventions: Education;Self Care / Home Management;Energy Conservation Training;Joint Mobility;Strengthening;Functional Mobility Training;Balance Training;Neuromuscular Re-education Plan of Care developed with: Patient;Caregiver TREATMENT INTERVENTIONS: Therapy Diagnosis: Decreased activities of daily living (ADL);Muscle Weakness (generalized) Interventions Provided: Evaluation;Self Shelter Management (59666);Therapeutic Activity (60791) $ Evaluation-Low (82236) Billed Units: 1 unit Therapeutic Activity (68964) Treatment Minutes: 10 1 unit Skilled Intervention(s): Therapist provided education on role of OT, OT POC, and d/c recommendations; pt verbalized understanding. Therapist provided education on importance of OOB activity in order to facilitate increased activity tolerance and strengthening; pt verbalized understanding. MIN A required to complete bed mobility with verbal cues to use UE on bed rail and verbal/tactile cues to initiate LE sequencing toward EOB. CGA required for trunk elevation with HOB elevated for increased assistance. Therapist instructed pt in safe sit<>stand to/from EOB, verbal cues provided to encourage anterior weight shift, push with BUEs from EOB; pt required CGA to lift to stance. Therapist instructed pt in slow controlled descent lowering to sit with BLEs in contact with EOB, reaching back with BUEs before lowering; pt able to perform with CGA and verbal cues for safety. Pt performed functional mobility from bed<>bathroom with WW and verbal cues provided for safety, pacing, self awareness of physiological response, negotiation of obstacles in environment. Therapist educated pt on energy conservation techniques with application to ADL performance/functional activity. ?Educated pt on 4 P's (Plan, Pace, Prioritize, Position), pt verbalized understanding. ?Instructed pt in implementation of techniques throughout session. ? Educated pt on sternal precautions and necessary modifications to fx activity, pt and caregivers verbalized understanding. Pt also requires monitoring of vital signs due to fluctuations with activity and instructions/ education regarding safe activity dosing. Vital Signs Intra Heart Rate 1: 55 Intra SpO2 1: 92 (on RA) Self Shelter Management (17384) Treatment Minutes: 35 2 units Skilled Intervention(s): Instructed pt in shower transfer with MIN A and instruction for use of grab bars. Therapist instructed pt in toilet transfer with CGA and verbal cues for safety, proper hand foot placement, walker negotiation in bathroom space. Pt performed toileting tasks with CGA and verbal cues for safety, maintaining wide GIFTY in stance for hygiene/clothing management, sequencing. Provided instruction, cuing and facilitation for upper body dressing. Provided instruction, cuing and facilitation for lower body dressing; instruction in figure four technique; therapist nathanael, pt return nathanael seated on shower chair with vc's for technique. MAX A to don MARIA LUZ hose. Provided instruction, cuing and facilitation for bathing performed alternating sitting/standing in shower with MIN A to wash BLEs below knees and vc's for pacing, maintaining precautions. Therapist educated pt on DME recommendations for safe home going. Therapist recommended shower chair for increased safety and independence. Therapist provided cost and locations to purchase. All questions answered to pt's satisfaction. Total Timed Code Treatment Minutes: 45 Total Treatment Time (minutes): 60 FUNCTIONAL G CODE: OT 6 Clicks Score: 20 (08/05/18 132) Self Care Current Status (G8987): CJ (08/05/18 132) Self Care Goal Status (G8988): CI (08/05/18 1324) Based on clinical assessment and the score on the 6 Clicks Functional Assessment Tool, the G code and corresponding severity modifiers are documented above. SUBJECTIVE: Current Hospital Course: Chart reviewed; 07/30/2018: Primary Sternotomy; Septal Myectomy (6g); MVr (P2 Triangular resection, 33 Rm band), bilateral pulmonary vein isolation, clipping of the left atrial appendage - 2 pump runs d/t hypokenetic RV Reason for Occupational Therapy Consult: Decline in fx performance Relevant Past Medical History: , A fib, long q-t syndrome Patient Report: I feel much better after that. Home Environment Patient Lives With: Self/Alone Assistance Available: None Entry To Home: Stairs Number Of Stairs Into Home: 3 Number Of Stairs To Bed/Bath: (1 level) Tub/Shower Type: tub shower w grab bars Equipment Owned: Home Oxygen (at night) Prior Functional Level: Within Functional Limits (Amb short distances) OBJECTIVE: Responsiveness: Alert;Awake Follows Commands: 3-step Commands CURRENT FUNCTIONAL STATUS: Current Activities of Daily Living Assist Level Feeding Independent Grooming Contact Guard Assistance Bathing Upper Body Set Up Bathing Lower Body Minimal Assistance Dressing Upper Body Set Up Dressing Lower Body Minimal Assistance Toileting Minimal Assistance Instrumental Activities of Daily Living Assist Level Meal/Beverage Prep Light Cleaning Laundry Medication Management with Strategies Functional Mobility Assist Level Rolling Supine to Sit Minimal Assistance Sit to Supine Minimal Assistance Scooting Stand By Assistance Sit to Stand Contact Guard Assistance Stand to Sit Contact Guard Assistance Bed to Chair Contact Guard Assistance Stand Pivot Wheeled Walker Toilet/Commode Contact Guard Assistance Functional Mobility Contact Guard Assistance Wheeled Walker Shower Transfer: Minimal Assistance Please see discipline specific clinical documentation flowsheet for complete details for this therapy evaluation/treatment. SIGNATURE: Rose Montes OT/Tatum PATIENT NAME: Priscilla Sharpe DATE: August 05, 2018 TIME: 3:20 PM THERAPY NT Observed: 08/05/2018 Status: COMPLETED Source: [place] 1:28 PM [facility] [place] REPOSITORY HNO ID: [id number] Author: Leanna Jacobosn (Pt) Yonis Service: Physical Therapy Author Type: Physical Therapist Type: Therapy (PT/OT/Speech/Resp) Filed: 08/05/2018 1:35 PM Note Text: Physical Therapy Treatment SERVICE DATE: 08/05/2018 SERVICE TIME: 1235 to 1302 ROOM: [place] [address] Recommended Discharge Disposition: Subacute/SNF Recommended Discharge Disposition Comments: May benefit from short term SNF to maximize independence prior to d/c home alone Anticipated Discharge Needs: Equipment Recommended Discharge Equipment: Wheeled Walker PT Recommendations to Nursing: Ambulate with device;To bathroom;In halls;OOB for Meals;With assist of 1 person Device: Wheeled Walker PT 6 Clicks Score: 18 Precautions/Activity Restrictions: Sternal ; Bradycardia *Confirmed with RN, bedrest orders following ventricular wires being cut were lifted prior to tx session ASSESSMENT : Patient continues to demo decreased activity tolerance, impaired balance and decreased safety awareness, affecting her ability to perform safe and efficient functional mobility without assistance, as well as function safely within the home and community environments. Currently, patient requires min/CGA for transfers and ambulation of short, functional distances. Further functional mobility limited due to bradycardia and reports of dizziness (although BP remained stable). RN notified and present. Symptoms resolved at end of session. Will continue to follow while in house to address deficits, progress functional mobility, provide patient and caregiver education, and maximize independence, however, anticipate patient would benefit from additional skilled PT within the SNF setting. Patient Disposition at Start of Session: Supine in Bed;Bed Alarm Patient Disposition at End of Session: OOB in Chair;Chair Alarm Tolerance Limited By Physiologic Response Physical Therapy Problem List: Education Deficit;Decreased Activity Tolerance;Decreased Strength;Functional Mobility Impairment;Balance Impaired Patient /Caregiver Goals: Go To Rehab Goals for Plan of Care: Able to perform HEP with: Independent Rolling with: Modified Independent Transfer supine to/from sit with: Modified Independent Transfer sit to/from stand with: Modified Independent Ambulate with: Modified Independent Distance: >300 ft Device: (least restrictive device) Ambulate up and down steps with: Supervision Number of steps: 3 Device: Rail Progress Toward Goals: Progressing slower than expected Due To: Medical acuity Rehab Potential: Excellent PLAN: Treatment Frequency (times per week): 3 Current admission Treatment Interventions: Education;Energy Conservation Training;Strengthening;Functional Mobility Training;Balance Training Plan of Care developed with: Patient TREATMENT INTERVENTIONS: Therapy Diagnosis: Reduced mobility-other Interventions Provided: Therapeutic Exercise (40575);Therapeutic Activity (44519) Therapeutic Exercise (07023) Treatment Minutes: 10 1 unit Skilled Intervention(s): Instruction in therapeutic exercise .Verbal cues and demo provided for technique and pacing. Intermittent tactile cues given for optimal muscle recruitment and alignment. Patient performed the following: -Seated: AP, LAQ, Hip flexion, Knee flexion Educated patient on importance of performing AP with changes in position to improve blood circulation and assist with feelings of dizziness. -Standing: Hip flexion, Heel raises, Mini squats B UE support given from WW and tactile cues given at pelvis to assist with translating COG over GIFTY. Therapeutic Activity (93402) Treatment Minutes: 13 1 unit Skilled Intervention(s): -Supine >?Sit: ?Instructed patient in log roll technique with verbal cues throughout for sequence. -Scooting: Upon sitting, verbal cues and demo provided?for scooting technique - contralateral WS and forward advancement of B hips. -Sit <> Stand:?Instruction in sit to stand technique with proper hand placement and body positioning at edge of bed/chair, as well as LE alignment prior to transfer. Difficulty with initiation of transfer, requiring assist and tactile/verbal cues to perform anterior WS. WW used. Patient performed 7x throughout session. Upon standing, tactile cues given to promote upright posture. Instruction in stand to sit technique with LE's touching chair/bed and reaching back for surface, as well as controlling descent. Poor eccentric control noted with descent. -Ambulation: Instruction in sequencing, gait pattern with WW. Verbal cues for walker placement and to stay within frame of WW. Patient demo'ed increased B knee flexion in stance, narrow GIFTY, decreased step length/height, and flexed posture - verbal cues to correct. Education and demonstration provided for sternal precautions and functional mobility techniques while being compliant with precautions. Total Timed Code Treatment Minutes: 23 Total Treatment Time (minutes): 27 FUNCTIONAL G CODE: PT 6 Clicks Score: 18 (08/05/18 1235) Mobility: Walking and Moving Around Current Status (G8978): CK (08/05/18 1235) Mobility: Walking and Moving Around Goal Status (G8979): CJ (08/05/18 1235) Based on clinical assessment and the score on the 6 Clicks Functional Assessment Tool, the G code and corresponding severity modifiers are documented above. SUBJECTIVE: Current Hospital Course: Chart reviewed; .Ventricular wires cute at 10:35 AM. Patient Report: I feel off. Home Environment Patient Lives With: Self/Alone Assistance Available: None Entry To Home: Stairs Number Of Stairs Into Home: 3 Number Of Stairs To Bed/Bath: (1 level) Equipment Owned: Home Oxygen (at night) Prior Functional Level: Within Functional Limits (Amb short distances) OBJECTIVE: CURRENT FUNCTIONAL STATUS: Current Functional Mobility Assist Level Additional Information Rolling Contact Guard Assistance Supine to Sit Contact Guard Assistance Sit to Supine (NT< patient sitting in chair upon end of sessoin) Scooting Contact Guard Assistance Sit to Stand Minimal Assistance (/CGA) Stand to Sit Contact Guard Assistance Gait Contact Guard Assistance Gait Device: Wheeled Walker Gait Distance (feet): 10 ft + 15 (Distance limited due to dizziness with positional changes) Stairs (NT, unsafe at this time) General Gait Deviations: Emmy decreased;Step length decreased Balance: Static Standing;Dynamic Standing Static Standing Balance: Contact Guard Assistance Dynamic Standing Balance: Minimal Assistance (/CGA) Functional Performance Test Functional PerformanceTest: 5x Sit to Stand 5x Sit To Stand (seconds): 27.5 5x Sit to Stand Gait Device: Wheeled walker Patient sitting in bedside chair upon end of session. RN aware and asymptomatic. See flowsheet for vitals assessment (vtials stable). No signs of acute distress noted. Call light within reach. Please see discipline specific clinical documentation flowsheet for complete details for this therapy evaluation/treatment. SIGNATURE: Leanna Somers PT PATIENT NAME: Priscilla Sharpe DATE: August 05, 2018 TIME: 1:28 PM CONSULT PROG Observed: 08/05/2018 Status: COMPLETED Source: [place] 12:51 PM [facility] REPOSITORY HNO ID: [id number] Author: Tessa Can (Fel) Service: Cardiovascular Medicine Author Type: Fellow Type: Consult Progress Note Filed: 08/05/2018 12:54 PM Note Text: EP Consutl Progress Note 78F w HOCM, MR/MVP, Paf had myectomy/MVr/surgical PVI on 07/30 c/b 2nd degree AVB and Afib SVR. - The patient stays in A fib with LBBB, HR around 50. She denies lightheadedness, dizziness, or syncope overnight. Epi wires were cut today. - EP would recommend ambulating her, and monitor HR. If she stays asymptomatic, no need for pacemaker at this moment. Avoid amiodarone or any AV miguel blockage. We would recommend EP follow up and DCCV as outpatient after 6 weeks if she stays in A fib. Tessa Can EP fellow [id number] PROGRESS Observed: 08/05/2018 Status: COMPLETED Source: [place] 11:12 AM [facility] REPOSITORY HNO ID: [id number] Author: Mariah Pedroza (Architecture Faculty Member) Mary Service: Cardiac Surgery Author Type: Nurse Practitioner Type: Progress Notes Filed: 08/05/2018 5:06 PM Note Text: [facility] POSTOP PROGRESS NOTE S/P SURGERY: July 30, 2018 78 year old ?Surgeon(s) and Role: * Jamie Jo - Primary * Jose Timmons (Res) Mace - Resident - Assisting OPERATION: Septal myectomy and mitral valve repair consisting of excision of a prolapsing segment of the P3 scallop of the mitral valve, annuloplasty with a #33 Rm band, bilateral pulmonary vein isolation with multiple upper occasions of the AtriCure radiofrequency clamp and clipping of the left atrial appendage with a 50 mm AtriCure clip ? INTERVAL EVENTS / PERTINENT ROS: Stable EP on consult- recommend holding AVN blocking agents, DCCV in 6 weeks. Weaned O2 to 1L (on 2L qhs pre-op) Renal function normalized. . Rhythm: Afib with CVR to SVR Intake/Output Summary (Last 24 hours) at 08/05/18 1112 Last data filed at 08/05/18 0900 Gross per 24 hour Intake 240 ml Output 1850 ml Net -1610 ml EKG: most recent image reviewed, most recent report reviewed TELE: most recent recordings reviewed CXR: most recent image reviewed, most recent report reviewed Echocardiogram: most recent report reviewed PHYSICAL EXAM: BP 139/59 Pulse (!) 47 Temp 37.1 ?C (98.7 ?F) (Oral) Resp 18 Ht 167.6 cm (5' 6) Wt 70.8 kg (156 lb) SpO2 91% BMI 25.18 kg/m? Neuro: AANDO x 3 moves all extremities with no apparent weakness CV: no jugular venous distention Heart Exam: RRR without murmur, gallop, or rubs. No ectopy. Resp: diminished breath sounds Abd: The abdomen is soft, nontender, nondistended; BS normal; no masses or organomegaly noted. Skin: Skin color, texture, turgor normal, no suspicious rashes or lesions Ext: Trace edema Surgical incisions: MS clean, dry and intact Chest tube: No Pacer wires: No HISTORY, ASSESSMENT AND PLAN: Problem Transition of Care Performed With Sharing of Clinical Summary Indication for Surgery: HOCM and mitral insufficiency Preop LVEF: Normal RVF: Normal Postop LVEF: Normal RVF: Mild EKG: SR with 1st degree AVB Cards: Basil PMH/PSHx: CAD, HTN, PAF (cardioversion 05/18, 10/18),moderate pulmonary hypertension, Long QT syndrome, 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+ pack years (quit 2012), small cell lymphoma s/p chemotherapy, IBS Airway Difficulty: Grade I - easy Pacing wires: Yes: Ventricular: CUT all pacing wires on 08.05.2018. Surgeries and Major Events: 07/30/2018: Primary Sternotomy; Septal Myectomy (6g); MVr (P2 Triangular resection, 33 Rm band), bilateral pulmonary vein isolation, clipping of the left atrial appendage - 2 pump runs d/t hypokenetic RV. Signout: -Rhythm: Afib rate 50-60. EP consulted (recommend DCCV in 6 weeks, (+) chronotropic response, hold AVN blocking agents). Resume coumadin at home dose. PT/INR therapeutic at 2.3. PMW cut without incident 08.05.2018. -Hypoxia - On 3L, Diuresis AND aggressive BPH. Has Moderate COPD per PFT's. On O2 at home 2L. -RADHA/FVO- Continue lasix 40 q 12. Renal function improving. Will monitor. -Diarrhea - Now resolved. Discharge tomorrow 08.06.2018. 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 Discharge Planning: Anticipated Discharge Date: 08.06.2018 Barriers to Discharge: Atrial Fibrilation: In Process, Other: Rhythm. Needs SNF authorization Care Management Discharge Needs: Needs Prior to Discharge: OT/PT Evaluation;Insurance Authorization Hocm (Hypertrophic Obstructive Cardiomyopathy) (Hcc) History: HOCM Assessment: 07.30.2018: S/p Septal Myectomy (6g) Plan: Needs Echo (ordered). Afib (Hcc) History: Admitted in SR with 1st degree AVB. On Warfarin, po amio, atenolol. S/p DCCV x 2 (05.18 and 10.18). Assessment: Currently afib with CVR to SVR. EP on consult. S/p bilateral pulmonary vein isolation with multiple upper occasions of the AtriCure radiofrequency clamp and clipping of the left atrial appendage with a 50 mm AtriCure clip. PMW CUT. (+) chronotropic response with activity. PT/INR therapeutic at 3.0 Plan: Continue coumadin 1 mg daily. Monitor. Avoid AVN blocking agents. Will need to f/u for DCCV in 6 weeks. Essential Hypertension History: On Atenolol, po lasix pre-op. Assessment: Currently normotensive on IV lasix. Plan: Continue IV lasix (FVO also). Continue to hold AVN blocking agents d/t Afib with CVR /intermitten SVR. Monitor and adjust medications accordingly. Copd (Chronic Obstructive Pulmonary Disease) (Hcc) History: Former smoker (50+ pk/years). Spirometery pre-op with moderate obstruction. On albuterol, anoro-ellipta pre-op. On O2 -2L pre-op qhs. Assessment: Currently on O2 at 2L, pulmicort, albuterol. Plan: Continue Pulmicort and albuterol. Wean O2 to 2L (pre- op dosage). Anxiety History: On Paxil, prn Ativan. Assessment: Stable. Cooperative. Plan: Continue to monitor. On prn Ativan. Discharge Planning Issues Discharge hopefully tomorrow to SNF 08.06.2018. Lives in [facility], alone but has supportive family. PT/OT/RT recommend SNF. 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 DAILY STEP DOWN CHECKLIST FOR CATHETER RELATED INFECTION PREVENTION CVC, PICC, Paul and/or Permacath present? No Does the patient have a urinary catheter beyond POD 2? No VTE Risk Assessment: High risk VTE Mechanical and/or Pharmacologic Prophylaxis: GCS/Warfarin Labs and medications reviewed in Epic Case discussed in depth with: Lindsey Winston SIGNATURE: Mariah Hernandez APRN.JEREMÍAS PATIENT NAME: Priscilla Sharpe DATE: August 05, 2018 TIME: 11:13 AM PAGER/CONTACT #: [phone] ETX#[id number] PROCEDURE Observed: 08/05/2018 Status: COMPLETED Source: [place] 10:35 AM [facility] [place] REPOSITORY HNO ID: [id number] Author: Mariah Hernandez Service: Cardiac Surgery Author Type: Nurse Practitioner Type: Procedures Filed: 08/05/2018 10:37 AM Note Text: Platelet Count 225 08/05/2018 Platelet Count 207 08/04/2018 Platelet Count 176 08/03/2018 Platelet Count 163 08/02/2018 INR (POCT) 3.0 08/05/2018 INR (POCT) 3.1 08/04/2018 INR (POCT) 2.3 08/03/2018 INR (POCT) 1.6 08/02/2018 rhythm atrial fibrillation with CVR - (+) chronotropic response 2 ventricular wires were CUT without difficulty MsMiryam Dardenmarileemiguel ángel and bedside RN aware of 30 min bedrest restriction/not to leave floor x 4 hours. Mariah Hrenandez, SAFETY LEAD.COLLECTION ANALYST XR CHEST 1V FRONTAL Observed: 08/05/2018 Status: F Source: [facility] 8:01 AM [facility] REPOSITORY * * *Final Report* * * DATE OF EXAM: Aug 05 2018 8:01AM [facility] [id number] - XR CHEST 1V FRONTAL PORT / PROCEDURE REASON: Post-operative / post-procedure assessment, asymptomatic * * * * Physician Interpretation * * * * EXAMINATION: CHEST RADIOGRAPH (PORTABLE SINGLE VIEW AP) Exam Date/Time: 08/05/2018 8:01 AM Clinical History: Post-operative / post-procedure assessment, asymptomatic, MQ: [id number] Comparison: 2 days prior RESULT: See impression. IMPRESSION: Lines, tubes, and devices: None. Status post median sternotomy and mitral annuloplasty/valve repair and left atrial appendage ligation clip placement. Mildly rotated to the left. Lungs and pleura: No large pneumothorax. Bibasilar opacities, stable to mildly progressive, suggestive of bibasilar atelectasis/consolidation and small pleural effusions. Cardiomediastinal silhouette: Stable, enlarged cardiomediastinal silhouette. Other: . Medical Billing Specialist: PSCB Transcribe Date/Time: Aug 05 2018 11:17A Dictated by : HOMERO BASSETT MD This examination was interpreted and the report reviewed and electronically signed by: HOMERO BASSETT MD on Aug 05 2018 11:19AM EST [id number] CBC Collected: 08/05/2018 Status: F Source: [place] 7:09 AM [facility] REPOSITORY TYPE CODE TESTS RESULT OUT OF REFERENCE UNITS RANGE LAB WBC 3.70-11.00 k/uL WBC 7.43 LAB RBC 3.90-5.20 m/uL Low RBC 3.82 LAB HGB 11.5-15.5 g/dL Low Hemoglobin 9.8 LAB HCT 36.0-46.0 % Low Hematocrit 31.1 LAB MCV 80.0-100.0 fL MCV 81.4 LAB MCH 26.0-34.0 pG Low MCH 25.7 LAB MCHC 30.5-36.0 g/dL MCHC 31.5 LAB RDWCV 11.5-15.0 % RDW-CV High 16.3 LAB PLTCT 150-400 k/uL Platelet Count 225 LAB MPV 9.0-12.7 fL MPV 10.0 LAB ABSNUC <0.01 k/uL Absolute High nRBC 0.02 Performed By: #### CBC, PT, CMP #### [facility] [address] [place], [place] [address] PROTIME Collected: 08/05/2018 Status: F Source: [place] 7:09 AM [facility] REPOSITORY TYPE CODE TESTS RESULT OUT OF RANGE REFERENCE UNITS LAB PSEC 9.7-13.0 sec High PT Sec 29.2 LAB INR 0.9-1.3 High PT INR 3.0 Result Comment: Vitamin K Antagonist (VKA) Therapeutic Range: INR 2 to 3 (Target INR of 2.5) Note: For patients treated with VKA drugs, such as warfarin, the [place] [employer] 2012 Guideline recommends a therapeutic INR range of 2 to 3 (target INR of 2.5). This recommendation includes high-risk patients with antiphospholipid syndrome with previous arterial or venous thromboembolism, current-generation mechanical or bioprosthetic aortic heart valve replacement. Note: Patients with mechanical aortic valve replacement and additional risk factors for thromboembolic events (atrial fibrillation, previous thromboembolism, LV dysfunction, hypercoagulable conditions) or an older generation mechanical AVR (i.e., ball in-Cage) or any mechanical MVR should have a INR therapeutic range of 2.5 to 3.5 (target INR of 3). Toni GH, et al. Chest 2012, 141:7S-47S Lilli WALDRON et al. [facility] 2017, 70: 252-289 Performed By: #### CBC, PT, CMP #### [facility] [address] [place], [place] [address] COMP METABOLIC PANEL Collected: 08/05/2018 Status: F Source: [place] 7:09 AM [facility] REPOSITORY TYPE CODE TESTS RESULT OUT OF REFERENCE UNITS RANGE LAB TP 6.3-8.0 g/dL Low Protein, Total 5.6 LAB ALB 3.9-4.9 g/dL Low Albumin 3.2 LAB CA 8.5-10.2 mg/dL Low Calcium, Total 8.4 LAB TBIL 0.2-1.3 mg/dL Bilirubin, Total 0.3 LAB ALKP 34-123 U/L Alkaline High Phosphatase 124 LAB AST 13-35 U/L AST 26 LAB GLU 74-99 mg/dL Glucose 92 Result Comment: The [place] Diabetes Association (ADA) provides guidance for cutoff values for fasting glucose and random glucose. The ADA defines fasting as no caloric intake for at least 8 hours. Fas ting plasma glucose results between 100 to 125 mg/dL indicate increased risk for diabetes (prediabetes). Fasting plasma glucose results greater than or equal to 126 mg/dL meet the criteria for diagnosis of diabetes. In the absence of unequivocal hyperglycemia, results should be confirmed by repeat testing. In a patient with classic symptoms of hyperglycemia or hyperglycemic crisis, random plasma glucose results greater than or equal to 200 mg/dL meet the criteria for diagnosis of diabetes. Reference: Standards of Medical Care in Diabetes 2016, [place] [employer] Association. Diabetes Care. 2016.39(Suppl 1). LAB BUN 7-21 mg/dL BUN 16 LAB CRET 0.58-0.96 mg/dL Creatinine 0.95 LAB NA 136-144 mmol/L Sodium 137 LAB K 3.7-5.1 mmol/L Potassium 3.9 LAB CL 97-105 mmol/L Low Chloride 94 LAB CO2 22-30 mmol/L CO2 High 32 LAB AGAP 9-18 mmol/L Anion Gap 11 LAB ALT 7-38 U/L ALT 28 LAB GFRAA eGFR- Amer. >60 LAB GFRNAA . eGFR-All Other Races 57 Result Comment: eGFR (Estimated GFR) Units of measure: mL/min/1.73 meters squared eGFR is derived from the reexpressed MDRD Study equation using the following parameters: serum creatinine, age, gender and race. The creatinine assay has been calibrated to be traceable to IDMS. An eGFR <60 mL/min/1.73m2 for >3 months is consistent with chronic kidney disease. Refer to KDOQI guidelines for clinical interpretation. In patients with unstable renal function, e.g. those with acute kidney injury, the eGFR may not accurately reflect actual GFR. Performed By: #### CBC, PT, CMP #### [facility] [address] [place], [place] [address] EKG1 Observed: 08/05/2018 Status: F Source: [place] 2:24 AM [facility] REPOSITORY NAME : PRISCILLA SHARPE PID : [id number] : 1940 Gender : Female Race : ORD : Procedure Date : Aug 05 2018 02:24:52 Edit Date : Aug 13 2018 23:37:58 Diagnosis:WARNING: INTERPRETATION OF THIS ECG, ALTHOUGH ATTEMPTED, MAY BE ADVERSELY AFFECTED BY DATA QUALITY ATRIAL FIBRILLATION WITH SLOW VENTRICULAR RESPONSE COMPLETE LEFT BUNDLE BRANCH BLOCK ABNORMAL ECG Confirmed by MATTHEW OSCAR MD ([id number]) on 08/13/2018 11:37:51 PM Ventricular Rate : 57 BPM Atrial Rate : 53 BPM QRS Duration : 154 ms Q-T Interval : 642 ms QTC Calculation(Bezet) : 624 ms R Friendship : -11 degrees T Friendship : 140 degrees Test Reason : Location : 451 : JNS Overread By : MATTHEW OSCAR MD Edited By : MATTHEW OSCAR MD Referred By : , Acquired by : [id number], PROGRESS Observed: 08/04/2018 Status: COMPLETED Source: [place] 3:51 PM [facility] REPOSITORY HNO ID: [id number] Author: Mariah Hernandez Service: Cardiac Surgery Author Type: Nurse Practitioner Type: Progress Notes Filed: 08/04/2018 3:53 PM Note Text: [facility] CTS POSTOP PROGRESS NOTE S/P SURGERY: July 30, 2018 78 year old ?Surgeon(s) and Role: * Jamie Jo - Primary * Jose Timmons (Res) Luis - Resident - Assisting OPERATION: Septal myectomy and mitral valve repair consisting of excision of a prolapsing segment of the P3 scallop of the mitral valve, annuloplasty with a #33 Rm band, bilateral pulmonary vein isolation with multiple upper occasions of the AtriCure radiofrequency clamp and clipping of the left atrial appendage with a 50 mm AtriCure clip ? INTERVAL EVENTS / PERTINENT ROS: Stable EP on consult- recommend holding AVN blocking agents Wean O2 to pre-op dosage of 2L Renal function continues to improve. Rhythm: Afib with CVR to SVR Intake/Output Summary (Last 24 hours) at 08/04/18 1551 Last data filed at 08/04/18 1300 Gross per 24 hour Intake 1110 ml Output 1703 ml Net -593 ml EKG: most recent image reviewed, most recent report reviewed TELE: most recent recordings reviewed CXR: most recent image reviewed, most recent report reviewed Echocardiogram: most recent report reviewed PHYSICAL EXAM: BP 143/67 Pulse 62 Temp 36.5 ?C (97.7 ?F) (Oral) Resp 16 Ht 167.6 cm (5' 6) Wt 71.3 kg (157 lb 1.6 oz) SpO2 94% BMI 25.36 kg/m? Neuro: AANDO x 3 moves all extremities with no apparent weakness CV: no jugular venous distention Heart Exam: RRR without murmur, gallop, or rubs. No ectopy., temporary pacer wires intact Resp: diminished breath sounds Abd: The abdomen is soft, nontender, nondistended; BS normal; no masses or organomegaly noted. Skin: Skin color, texture, turgor normal, no suspicious rashes or lesions Ext: Trace edema Surgical incisions: MS clean, dry and intact Chest tube: No Pacer wires: Yes, 2V HISTORY, ASSESSMENT AND PLAN: Problem Transition of Care Performed With Sharing of Clinical Summary Indication for Surgery: HOCM and mitral insufficiency Preop LVEF: Normal RVF: Normal Postop LVEF: Normal RVF: Mild EKG: SR with 1st degree AVB Cards: Basil PMH/PSHx: CAD, HTN, PAF (cardioversion 05/18, 10/18),moderate pulmonary hypertension, Long QT syndrome, 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+ pack years (quit 2012), small cell lymphoma s/p chemotherapy, IBS Airway Difficulty: Grade I - easy Pacing wires: Yes: Ventricular: When discontinuing pacing wires: CUT all pacing wires Surgeries and Major Events: 07/30/2018: Primary Sternotomy; Septal Myectomy (6g); MVr (P2 Triangular resection, 33 Rm band), bilateral pulmonary vein isolation, clipping of the left atrial appendage - 2 pump runs d/t hypokenetic RV__ Signout: -Rhythm: Afib rate 50-60. Temp pacer set to backup only. EP consulted (recommend DCCV in 6 weeks, walking patient to check for chronotropic response, hold AVN blocking agents). Resume coumadin at home dose. PT/INR therapeutic at 2.3. -Hypoxia - On 3L, Diuresis AND aggressive BPH. Has Moderate COPD per PFT's. On O2 at home 2L. -RADHA/FVO- Continue lasix 40 q 12. Renal function improving. Will monitor. -Diarrhea - Now resolved. Discharge in 1-2 days to SNF. Lives in [place], [place] alone but has supportive family. Discharge Planning: Anticipated Discharge Date: 08.06.2018 Barriers to Discharge: Atrial Fibrilation: In Process, Other: Rhythm. Needs SNF authorization Care Management Discharge Needs: Needs Prior to Discharge: OT/PT Evaluation;Insurance Authorization Hocm (Hypertrophic Obstructive Cardiomyopathy) (Hcc) History: HOCM Assessment: 2018: S/p Septal Myectomy (6g) Plan: Needs Echo (ordered) Afib (Hcc) History: Admitted in SR with 1st degree AVB. On Warfarin, po amio, atenolol. S/p DCCV x 2 (07.17 and 12.17). Assessment: Currently afib with CVR to SVR. EP on consult. VVI at 40. S/p bilateral pulmonary vein isolation with multiple upper occasions of the AtriCure radiofrequency clamp and clipping of the left atrial appendage with a 50 mm AtriCure clip. Plan: Decrease home dose of coumadin to 1 mg daily. Continue back up pacing at VVI 40. Monitor. Avoid AVN blocking agents. Will ambulate patient for Chronotropic response. Essential Hypertension History: On Atenolol, po lasix pre-op. Assessment: Currently normotensive on IV lasix. Plan: Continue IV lasix. Continue to hold AVN blocking agents d/t Afib with SVR. Monitor and adjust medications accordingly. Copd (Chronic Obstructive Pulmonary Disease) (Hcc) History: Former smoker (50+ pk/years). Spirometery pre-op with moderate obstruction. On albuterol, anoro-ellipta pre-op. On O2 -2L pre-op. Assessment: Currently on O2 at 2L, pulmicort, albuterol. Plan: Continue Pulmicort and albuterol. Wean O2 to 2L (pre- op dosage). Radha (Acute Kidney Injury) (Hcc) History: Post-operative. Assessment: BUN/Cr normalizing Plan: Avoid hypotension. Renally dose medications Anxiety History: On Paxil, prn Ativan. Assessment: Stable. Cooperative. Plan: Continue to monitor. On prn Ativan Stress Hyperglycemia Continue SS. Discharge Planning Issues Discharge 1-2 days. Lives in [facility], alone but has supportive family. PT/OT/RT recommend SNF. DAILY STEP DOWN CHECKLIST FOR CATHETER RELATED INFECTION PREVENTION CVC, PICC, Paul and/or Permacath present? No Does the patient have a urinary catheter beyond POD 2? No VTE Risk Assessment: High risk VTE Mechanical and/or Pharmacologic Prophylaxis: GCS/Warfarin Labs and medications reviewed in Epic Case discussed in depth with: Lindsey Winston SIGNATURE: Mariah Hernandez APRN.COLLECTION ANALYST PATIENT NAME: Priscilla Sharpe DATE: August 04, 2018 TIME: 3:52 PM PAGER/CONTACT #: [phone] ETX#[id number] [facility] Observed: 08/04/2018 Status: COMPLETED Source: [place] 1:50 PM [facility] [place] REPOSITORY O ID: [id number] Author: Martinez (Ex Phys) Comfort Service: Cardiovascular Medicine Author Type: Blow Mold Machine Operator Type: Allied Health Filed: 08/04/2018 1:53 PM Note Text: CARDIAC REHABILITATION PHASE I FOLLOW-UP PATIENT NAME: Priscilla Sharpe SERVICE DATE: August 04, 2018 SESSION TIME: 1:15pm Distance Duration BP HR SpO2 % Pain (0-10) Assist/Device ~ 80 feet ~ 2-3 Pre 125/60 53 93% 2.5L 2 abdominal SBA/IV Pole Peak 141/63 57 97% 3L 2 abdominal Post 134/61 51 97% 2.5L 2 abdominal Pt was seated in chair upon arrival to room. Pt was willing to participate in activity. Pt tolerated activity well and was steady while ambulating ~ 80 feet utilizing IV Pole and SBA. Pt c/o slight upper abdominal pain from incision, nurse aware. HP was reviewed with pt/family and order for Phase II Cardiac Rehab was provided. Comments: Encouraged to attend Home Activity class once prior to discharge (Thu-Thu-Thu at 3:00 pm, [id number]). Tolerating exercise well, continue with exercise 4 - 6 x/day. Recommend enrollment in Phase 2, Outpatient Cardiac Rehab. Home Program: Provided and reviewed home activity guidelines as outlined below. Frequency: 4 - 6 days/week Intensity: 3 - 4/10 RPE Type: walking - start at 3 - 5 minutes/4 - 6 x day Duration: 20 - 30 minutes -----> 45 + minutes Araceli Martinez Phone: [phone] August 04, 2018 1:50 PM POTASSIUM Collected: 08/04/2018 Status: F Source: [place] 12:33 PM [facility] REPOSITORY TYPE CODE TESTS RESULT OUT OF REFERENCE UNITS RANGE LAB K 3.7-5.1 mmol/L Potassium 3.7 Performed By: #### K1 #### [facility] [address] [place], [place] [address] CONSULT PROG Observed: 08/04/2018 Status: COMPLETED Source: [place] 10:13 AM [facility] REPOSITORY HNO ID: [id number] Author: Tessa Can (Fel) Service: Cardiovascular Medicine Author Type: Fellow Type: Consult Progress Note Filed: 08/04/2018 10:17 AM Note Text: EP Consutl Progress Note 78F w HOCM, MR/MVP, Paf had myectomy/MVr/surgical PVI on 07/30 c/b 2nd degree AVB and Afib SVR. - The patient stays in A fib with LBBB, HR late 40's to 50's. She denies lightheadedness, dizziness, or syncope overnight. - EP would recommend ambulating her, and monitor HR. We would not recommend using amiodarone considering her QT interval. - DCCV can be done as outpatient after 6 weeks. Tessa Can EP fellow [id number] PROTIME Collected: 08/04/2018 Status: F Source: [place] 5:14 AM [facility] REPOSITORY TYPE CODE TESTS RESULT OUT OF RANGE REFERENCE UNITS LAB PSEC 9.7-13.0 sec High PT Sec 30.2 LAB INR 0.9-1.3 High PT INR 3.1 Result Comment: Vitamin K Antagonist (VKA) Therapeutic Range: INR 2 to 3 (Target INR of 2.5) Note: For patients treated with VKA drugs, such as warfarin, the [place] [employer] 2012 Guideline recommends a therapeutic INR range of 2 to 3 (target INR of 2.5). This recommendation includes high-risk patients with antiphospholipid syndrome with previous arterial or venous thromboembolism, current-generation mechanical or bioprosthetic aortic heart valve replacement. Note: Patients with mechanical aortic valve replacement and additional risk factors for thromboembolic events (atrial fibrillation, previous thromboembolism, LV dysfunction, hypercoagulable conditions) or an older generation mechanical AVR (i.e., ball in-Cage) or any mechanical MVR should have a INR therapeutic range of 2.5 to 3.5 (target INR of 3). Toni GH, et al. Chest 2012, 141:7S-47S Lilli RA, et al. [facility] 2017, 70: 252-289 Performed By: #### PT, CMP, CBC #### [facility] [address] [place], [place] [address] COMP METABOLIC PANEL Collected: 08/04/2018 Status: F Source: [place] 5:14 AM [facility] [place] REPOSITORY TYPE CODE TESTS RESULT OUT OF REFERENCE UNITS RANGE LAB TP 6.3-8.0 g/dL Low Protein, Total 5.3 LAB ALB 3.9-4.9 g/dL Low Albumin 3.0 LAB CA 8.5-10.2 mg/dL Calcium, Total 8.5 LAB TBIL 0.2-1.3 mg/dL Bilirubin, Total 0.3 LAB ALKP 34-123 U/L Alkaline Phosphatase 115 LAB AST 13-35 U/L AST 31 LAB GLU 74-99 mg/dL Glucose High 106 Result Comment: The [place] Diabetes Association (ADA) provides guidance for cutoff values for fasting glucose and random glucose. The ADA defines fasting as no caloric intake for at least 8 hours. Fas ting plasma glucose results between 100 to 125 mg/dL indicate increased risk for diabetes (prediabetes). Fasting plasma glucose results greater than or equal to 126 mg/dL meet the criteria for diagnosis of diabetes. In the absence of unequivocal hyperglycemia, results should be confirmed by repeat testing. In a patient with classic symptoms of hyperglycemia or hyperglycemic crisis, random plasma glucose results greater than or equal to 200 mg/dL meet the criteria for diagnosis of diabetes. Reference: Standards of Medical Care in Diabetes 2016, [place] [employer] Association. Diabetes Care. 2016.39(Suppl 1). LAB BUN 7-21 mg/dL BUN High 22 LAB CRET 0.58-0.96 mg/dL Creatinine High 0.97 LAB NA 136-144 mmol/L Sodium 137 LAB K 3.7-5.1 mmol/L Low Potassium 3.6 LAB CL 97-105 mmol/L Low Chloride 96 LAB CO2 22-30 mmol/L CO2 25 LAB AGAP 9-18 mmol/L Anion Gap 16 LAB ALT 7-38 U/L ALT 28 LAB GFRAA eGFR- Amer. >60 LAB GFRNAA . eGFR-All Other Races 55 Result Comment: eGFR (Estimated GFR) Units of measure: mL/min/1.73 meters squared eGFR is derived from the reexpressed MDRD Study equation using the following parameters: serum creatinine, age, gender and race. The creatinine assay has been calibrated to be traceable to IDMS. An eGFR <60 mL/min/1.73m2 for >3 months is consistent with chronic kidney disease. Refer to KDOQI guidelines for clinical interpretation. In patients with unstable renal function, e.g. those with acute kidney injury, the eGFR may not accurately reflect actual GFR. Performed By: #### PT, CMP, CBC #### [facility] [address] [address] CBC Collected: 08/04/2018 Status: F Source: [place] 5:14 AM [facility] REPOSITORY TYPE CODE TESTS RESULT OUT OF REFERENCE UNITS RANGE LAB WBC 3.70-11.00 k/uL WBC 8.50 LAB RBC 3.90-5.20 m/uL Low RBC 3.51 LAB HGB 11.5-15.5 g/dL Low Hemoglobin 9.0 LAB HCT 36.0-46.0 % Low Hematocrit 28.1 LAB MCV 80.0-100.0 fL MCV 80.1 LAB MCH 26.0-34.0 pG Low MCH 25.6 LAB MCHC 30.5-36.0 g/dL MCHC 32.0 LAB RDWCV 11.5-15.0 % RDW-CV High 16.3 LAB PLTCT 150-400 k/uL Platelet Count 207 LAB MPV 9.0-12.7 fL MPV 10.6 LAB ABSNUC <0.01 k/uL Absolute High nRBC 0.02 Performed By: #### PT, CMP, CBC #### [facility] [address] [place], [place] [address] PROGRESS Observed: 08/03/2018 Status: COMPLETED Source: [place] 5:29 PM [facility] REPOSITORY HNO ID: [id number] Author: Mariah Pedroza (Jeremías) Mary Service: Cardiac Surgery Author Type: Nurse Practitioner Type: Progress Notes Filed: 08/03/2018 5:32 PM Note Text: [facility] CTS POSTOP PROGRESS NOTE S/P SURGERY: July 30, 2018 78 year old ?Surgeon(s) and Role: * Jamie Jo - Primary * Jose Timmons (Res) Luis - Resident - Assisting OPERATION: Septal myectomy and mitral valve repair consisting of excision of a prolapsing segment of the P3 scallop of the mitral valve, annuloplasty with a #33 Rm band, bilateral pulmonary vein isolation with multiple upper occasions of the AtriCure radiofrequency clamp and clipping of the left atrial appendage with a 50 mm AtriCure clip ? INTERVAL EVENTS / PERTINENT ROS: Stable EP on consult Wean O2 Renal function improving. Rhythm: Afib with CVR Intake/Output Summary (Last 24 hours) at 08/03/18 1729 Last data filed at 08/03/18 1300 Gross per 24 hour Intake 465 ml Output 1600 ml Net -1135 ml EKG: most recent image reviewed, most recent report reviewed TELE: most recent recordings reviewed CXR: most recent image reviewed, most recent report reviewed Echocardiogram: most recent report reviewed PHYSICAL EXAM: BP 144/66 Pulse (!) 52 Temp 36.3 ?C (97.4 ?F) (Oral) Resp 20 Ht 167.6 cm (5' 6) Wt 72.3 kg (159 lb 8 oz) SpO2 92% BMI 25.74 kg/m? Neuro: AANDO x 3 moves all extremities with no apparent weakness CV: no jugular venous distention Heart Exam: RRR without murmur, gallop, or rubs. No ectopy., temporary pacer wires intact Resp: diminished breath sounds Abd: The abdomen is soft, nontender, nondistended; BS normal; no masses or organomegaly noted. Skin: Skin color, texture, turgor normal, no suspicious rashes or lesions Ext: Trace edema Surgical incisions: MS clean, dry and intact Chest tube: No Pacer wires: Yes, 2V HISTORY, ASSESSMENT AND PLAN: Problem Transition of Care Performed With Sharing of Clinical Summary Indication for Surgery: HOCM and mitral insufficiency Preop LVEF: Normal RVF: Normal Postop LVEF: Normal RVF: Mild EKG: SR with 1st degree AVB Cards: Basil PMH/PSHx: CAD, HTN, PAF (cardioversion 05/18, 10/18),moderate pulmonary hypertension, Long QT syndrome, 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+ pack years (quit 2012), small cell lymphoma s/p chemotherapy, IBS Airway Difficulty: Grade I - easy Pacing wires: Yes: Ventricular: When discontinuing pacing wires: CUT all pacing wires Surgeries and Major Events: 07/30/2018: Primary Sternotomy; Septal Myectomy (6g); MVr (P2 Triangular resection, 33 Rm band), bilateral pulmonary vein isolation, clipping of the left atrial appendage - 2 pump runs d/t hypokenetic RV__ Signout: -Rhythm: Afib rate 50-60. Temp pacer set to backup only. EP consulted. Will follow their recommendations. Holding AVN blocking agents. Resume coumadin at home dose. PT/INR therapeutic at 2.3. -Hypoxia - On 3L, Diuresis AND aggressive BPH -RADHA/FVO- Continue lasix 40 q 12. Renal function improving. Will monitor. -Diarrhea - 4 small watery BM overnight, Send Cdiff if reoccurs. Now resolved. No discharge date as of yet. Lives in [place], [place] alone but has supportive family. 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 Discharge Planning: Anticipated Discharge Date: 08.06.2018 Barriers to Discharge: Atrial Fibrilation: In Process, Other: Rhythm. Needs SNF authorization Care Management Discharge Needs: Needs Prior to Discharge: OT/PT Evaluation;Insurance Authorization Hocm (Hypertrophic Obstructive Cardiomyopathy) (Hcc) History: HOCM Assessment: 07.30.2018: S/p Septal Myectomy (6g) Plan: Needs Echo (ordered). Afib (Hcc) History: Admitted in SR with 1st degree AVB. On Warfarin, po amio, atenolol. S/p DCCV x 2 (. and 10.18). Assessment: Currently afib with CVR to SVR. EP on consult. VVI at 40. S/p bilateral pulmonary vein isolation with multiple upper occasions of the AtriCure radiofrequency clamp and clipping of the left atrial appendage with a 50 mm AtriCure clip Plan: . Resume home dose of coumadin. Continue back up pacing at VVI 40. Monitor. Avoid AVN blocking agents. Mr (Mitral Regurgitation) History: MR Assessment: 2018: S/p MVr (P2 Triangular resection, 33 Rm band) Plan: Continue ASA. Echo ordered. Recommend repeat Echo every 3 months. Essential Hypertension History: On Atenolol, po lasix pre-op. Assessment: Currently normotensive on IV lasix. Plan: Continue IV lasix. Monitor and adjust medications accordingly. Copd (Chronic Obstructive Pulmonary Disease) ([facility]) History: Former smoker (50+ pk/years). Spirometery pre-op with moderate obstruction. On albuterol, anoro-ellipta pre-op. Assessment: Currently on O2, pulmicort, albuterol. Plan: Continue Pulmicort and albuterol. Wean O2. Radha (Acute Kidney Injury) (Hcc) History: Post-operative. Assessment: Cr stable 1.16 today- improving. Plan: Avoid hypotension. Renally dose medications. Anxiety History: On Paxil, prn Ativan. Assessment: Stable. Cooperative. Plan: Continue to monitor. On prn Ativan. Stress Hyperglycemia A/p SSI Discharge Planning Issues Discharge 1-2 days. Lives in [facility], alone but has supportive family. PT/OT/RT evalulation for SNF. DAILY STEP DOWN CHECKLIST FOR CATHETER RELATED INFECTION PREVENTION CVC, PICC, Paul and/or Permacath present? No Does the patient have a urinary catheter beyond POD 2? No VTE Risk Assessment: High risk VTE Mechanical and/or Pharmacologic Prophylaxis: GCS/Warfarin Labs and medications reviewed in Epic Case discussed in depth with: Lindsey Winston SIGNATURE: Mariah Hernandez APRN.CNP PATIENT NAME: Priscilla Sharpe DATE: August 03, 2018 TIME: 5:29 PM PAGER/CONTACT #: [phone] ETX#[id number] ECG COMPLETE W Observed: 08/03/2018 Status: F Source: [place] INTERPRETATION 4:33 PM [facility] [place] REPOSITORY NAME : PRISCILLA SHARPE PID : [id number] : 1940 Gender : Female Race : ORD : [id number] Procedure Date : Aug 03 2018 16:33:21 Edit Date : Aug 05 2018 14:41:35 Diagnosis:ATRIAL FIBRILLATION WITH SLOW VENTRICULAR RESPONSE COMPLETE LEFT BUNDLE BRANCH BLOCK ABNORMAL ECG Confirmed by BRETT MORELAND M.D. ([id number]) on 08/05/2018 2:37:39 PM Ventricular Rate : 53 BPM Atrial Rate : 53 BPM QRS Duration : 152 ms Q-T Interval : 678 ms QTC Calculation(Bezet) : 636 ms R Friendship : -14 degrees T Friendship : 137 degrees Test Reason : BEST POSSIBLE Location : 351 : J51 [id number] Overread By : BRETT MORELAND M.D. Edited By : BRETT MORELAND M.D. Referred By : , Acquired by : CARMEL IBANEZ CASE MANAGEM Observed: 08/03/2018 Status: COMPLETED Source: [place] 2:59 PM [facility] REPOSITORY HNO ID: [id number] Author: Travon Potts RN Service: Care Management Author Type: Registered Nurse Type: Care Mgt Progress Note Filed: 08/03/2018 3:07 PM Note Text: CARE MANAGEMENT PROGRESS NOTE SERVICE DATE: 08/03/2018 SERVICE TIME: 3:00 PM LOS: 0 days Needs Prior to Discharge: OT/PT Evaluation;Insurance Authorization At this time, the patient is still requiring further medical optimization s/p surgery. EP following for potential PPM needs. [facility] is willing to accept the patient pending therapy notes and insurance approval. Updated clinicals were sent to provider. OT evaluation order was requested from [facility] AUTOMATIC PACKER OPERATOR. CM attempted to updated pt but was unable to d/t pt sleeping. CM will follow to assist with dc plans. SIGNATURE: Travon Potts RN PATIENT NAME: Priscilla Sharpe DATE: August 03, 2018 TIME: 3:00 PM PAGER/CONTACT #: [phone] or [phone] [facility] Observed: 08/03/2018 Status: COMPLETED Source: [place] 11:52 AM [facility] REPOSITORY HNO ID: [id number] Author: Martinez (Ex Phys) Comfort Service: Cardiovascular Medicine Author Type: Blow Mold Machine Operator Type: Allied Health Filed: 08/03/2018 11:55 AM Note Text: CARDIAC REHABILITATION PHASE I ASSESSMENT PATIENT NAME: Priscilla Sharpe SERVICE DATE: August 03, 2018 SESSION TIME: 10:47am BP HR SpO2 % Flow/Rate L/min Pain (0-10) Supine N/A patient seated in chair N/A Seated (edge of bed > 30 sec) Yes 127/61 52 95% 3L 2 Sit --> Stand (stand unassisted > 30 sec) No N/A 58 N/A 3L 2 Ambulation (>10? unassisted) No 160/67 52 95% 3L 2 Post N/A 1st Post BP 164/70 2nd Post BP 138/63 49 N/A 3L 2 Pre-Exercise Assessment 1. Ankle Pumps x 5: Left - Yes Right - Yes 2. Point Pain in Calf: Left - No Right - No 3. Dorsiflex: Left - Yes Right - Yes 4. Overhead Reach x 3: Left - Yes Right - Yes 5. Unstable Sternum: No 6. Shoulder Pain: Left - No Right - No Exercise Distance: ~ 40 feet Duration: 2-3 minutes Assistance: Standby supervision Device: IV pole RECOMMENDATIONS: Ambulate: with staff assist only Oxygen: with O2 3L or as advised by nurse Assist Device: yes - IV pole / prn / wheeled walker COMMENTS: 1. Pt was seated in chair upon arrival to room. Pt was willing to participate in activity. Pt tolerated activity well and was fairly steady while ambulating ~ 40 feet utilizing IV Pole and SBA. Pt had no complaints at this time. 2. Instructed on continued increased ambulation as tolerated 4-6 times per day. 3. Reviewed signs and symptoms of exercise intolerance. Martinez Moyer, Ex Phys Phone: [phone] August 03, 2018 11:52 AM THERAPY NT Observed: 08/03/2018 Status: COMPLETED Source: [place] 9:57 AM [facility] REPOSITORY O ID: [id number] Author: Liberty ElizondoPtDheeraj Brown Service: Physical Therapy Author Type: Physical Therapist Type: Therapy (PT/OT/Speech/Resp) Filed: 08/03/2018 10:01 AM Note Text: Physical Therapy Evaluation SERVICE DATE: 08/03/2018 SERVICE TIME: 0850 to 13 ROOM: J5-1-24 Recommended Discharge Disposition: Subacute/SNF Recommended Discharge Disposition Comments: May benefit from short term SNF to maximize independence prior to d/c home alone Anticipated Discharge Needs: Equipment Recommended Discharge Equipment: Wheeled Walker PT Recommendations to Nursing: Ambulate with device;To bathroom;In halls;OOB for Meals;With assist of 1 person Device: Wheeled Walker PT 6 Clicks Score: 19 Precautions/Activity Restrictions: Sternal ASSESSMENT : Pt. presents with decreased activity tolerance, decreased strength and decreased balance limiting functional mobility. Recommend continued skilled PT services in the hospital and at d/c to maximize safety/independence prior to discharge home. Pt wishes to return home but needs exceed resources available at this time. Pt requires skilled therapy to address current functional limitations and impairments as well as to progress activities within safe limits. Rec d/c SNF to maximize independence prior to d/c home alone. Limited assist available. Patient Disposition at Start of Session: Supine in Bed Patient Disposition at End of Session: OOB in Chair Tolerated Full Session Physical Therapy Problem List: Education Deficit;Decreased Activity Tolerance;Decreased Strength;Functional Mobility Impairment;Balance Impaired Patient /Caregiver Goals: Go To Rehab Goals for Plan of Care: Able to perform HEP with: Independent Rolling with: Modified Independent Transfer supine to/from sit with: Modified Independent Transfer sit to/from stand with: Modified Independent Ambulate with: Modified Independent Distance: >300 ft Device: (least restrictive device) Ambulate up and down steps with: Supervision Number of steps: 3 Device: Rail Rehab Potential: Excellent PLAN: Treatment Frequency (times per week): 3 Current admission Treatment Interventions: Education;Energy Conservation Training;Strengthening;Functional Mobility Training;Balance Training Plan of Care developed with: Patient TREATMENT INTERVENTIONS: Therapy Diagnosis: Reduced mobility-other Interventions Provided: Evaluation;Therapeutic Activity (39950) $ Evaluation-Low (59658) Billed Units: 1 unit Therapeutic Activity (20707) Treatment Minutes: 10 1 unit Skilled Intervention(s): Cues for hand placement, safety, and proper technique with bed mobility and transfers. Cues for upright stance, safety, rest breaks as needed, proper breathing technique and proper use of wheeled walker. Educated on walking program. Encouraged increased ambulation on unit 4-6x/day with assist. Educated in sternal precautions. Encouraged OOB to chair for meals and as tolerated throughout day with assist. Instructed in seated therex. Encouraged 2-3x/day. Educated in PT POC and rehab process. Total Timed Code Treatment Minutes: 10 Total Treatment Time (minutes): 25 FUNCTIONAL G CODE: PT 6 Clicks Score: 19 (08/03/18849) Mobility: Walking and Moving Around Current Status (G8978): CK (08/03/18849) Mobility: Walking and Moving Around Goal Status (G8979): CJ (08/03/18849) Based on clinical assessment and the score on the 6 Clicks Functional Assessment Tool, the G code and corresponding severity modifiers are documented above. SUBJECTIVE: Current Hospital Course: Chart reviewed; 07/30/2018: Primary?Sternotomy; Septal Myectomy (6g); MVr (P2 Triangular resection, 33 Rm band), bilateral pulmonary vein isolation, clipping of the left atrial appendage - 2 pump runs d/t hypokenetic RV Patient Report: :I have just been to the bathroom Home Environment Patient Lives With: Self/Alone Assistance Available: None Entry To Home: Stairs Number Of Stairs Into Home: 3 Number Of Stairs To Bed/Bath: (1 level) Equipment Owned: Home Oxygen (at night) Prior Functional Level: Within Functional Limits (Amb short distances) OBJECTIVE: CURRENT FUNCTIONAL STATUS: Current Functional Mobility Assist Level Additional Information Rolling Supervision Supine to Sit Contact Guard Assistance Sit to Supine Scooting Contact Guard Assistance Sit to Stand Contact Guard Assistance Stand to Sit Contact Guard Assistance Bed to Chair Contact Guard Assistance Bed To Chair Transfer Type: Stand Pivot Toilet/Commode Gait Contact Guard Assistance Gait Device: Wheeled Walker Gait Distance (feet): 100 ft Stairs Curb Step Car Transfer General Gait Deviations: Emmy decreased;Step length decreased Please see discipline specific clinical documentation flowsheet for complete details for this therapy evaluation/treatment. SIGNATURE: Liberty Brown PT PATIENT NAME: Priscilla Sharpe DATE: August 03, 2018 TIME: 9:57 AM XR CHEST 2V FRONTAL/LAT Observed: 08/03/2018 Status: F Source: [place] 9:46 AM [facility] REPOSITORY * * *Final Report* * * DATE OF EXAM: Aug 03 2018 9:46AM JIX [id number] - XR CHEST 2V FRONTAL/LAT / PROCEDURE REASON: Pleural effusion * * * * Physician Interpretation * * * * EXAMINATION: CHEST RADIOGRAPH (2 VIEW FRONTAL and LATERAL) CLINICAL HISTORY: Pleural effusion, MQ: XC2_5 Comparison: 08/02/2018 RESULT: Lines, tubes, and devices: The right internal jugular catheter has been removed since prior examination. Lungs and pleura: Small bilateral pleural effusions with bibasilar atelectasis are slightly improved since the prior exam. No new focal lung consolidation is seen. There is no pneumothorax. Cardiomediastinal silhouette: The heart remains enlarged. Median sternotomy wires are intact and well aligned. Mitral annuloplasty is unchanged. A left atrial appendage closure device is unchanged. Other: Degenerative changes are seen in the thoracic spine. IMPRESSION: Small bilateral pleural effusions with bibasilar atelectasis.. Medical Billing Specialist: PSCB Transcribe Date/Time: Aug 03 2018 1:43P Dictated by : JUSTINE MARTINEZ MD This examination was interpreted and the report reviewed and electronically signed by: JUSTINE MARTINEZ MD on Aug 03 2018 1:45PM EST [id number] ECG COMPLETE W Observed: 08/03/2018 Status: F Source: [place] INTERPRETATION 9:15 AM [facility] [place] REPOSITORY NAME : PRISCILLA SHARPE PID : [id number] : 1940 Gender : Female Race : ORD : [id number] Procedure Date : Aug 03 2018 09:15:22 Edit Date : Aug 09 2018 14:07:08 Diagnosis:ATRIAL FIBRILLATION COMPLETE LEFT BUNDLE BRANCH BLOCK ABNORMAL ECG Confirmed by JUSTA DOWNS M.D. ([id number]) on 08/09/2018 1:56:13 PM Ventricular Rate : 50 BPM Atrial Rate : 47 BPM QRS Duration : 156 ms Q-T Interval : 660 ms QTC Calculation(Bezet) : 601 ms R Friendship : -16 degrees T Friendship : 143 degrees Test Reason : Location : 351 : [id number] Overread By : JUSTA DOWNS M.D. Edited By : JUSTA DOWNS M.D. Referred By : , Acquired by : SURI WRIGHT CONSULT Observed: 08/03/2018 Status: COMPLETED Source: [place] 8:22 AM [facility] [place] REPOSITORY HNO ID: [id number] Author: Sai Elmore MD Service: Cardiovascular Medicine Author Type: Physician Type: Consults Filed: 08/04/2018 8:18 AM Note Text: [facility]LECTROPHYSIOLOGY CONSULT Priscilla Sharpe [id number] August 03, 2018 CONSULTING SERVICE: Cardiology: Electrophysiology Consult PRIMARY SERVICE: Cardiothoracic Surgery REASON FOR CONSULT: AV block after septal myectomy HPI: This is a 78 yo F with hypertrophic cardiomyopathy, 2-3+ MR due to MVP with dynamic LVOT obstruction and GUI, PAF (cardioversion 05/18, 10/18), moderate pulmonary hypertension, HTN, CAD, dyslipidemia,?long QT syndrome, 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+ pack years (quit 2012), small cell lymphoma s/p chemotherapy, who presented for elective myectomy, PVI and MV repair. The pt had the operation on 07/30 and EP service was consulted for slow Afib with concern for CHB. She reports feeling well overall and denies any dizziness or sob. She has been participating in PT without issues. 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 Monson follows for benign tumor removed 2002 - Unspecified essential hypertension 10/06/2008 PAST SURGICAL HISTORY Procedure Laterality Date - PAST SURGICAL HISTORY OF 2003 tumor removed from bladder INPATIENT RX: Current hospital medications: furosemide 40 mg injection (LASIX) 40 mg INTRAVENOUS q 12 H 6a/6p 0.9% NaCl 3-5 mL 3-5 mL INTRAVENOUS q 12 H 0.9% NaCl 10 mL 10 mL INTRAVENOUS q 12 H aspirin 162 mg chewable tab(s) 162 mg ORAL DAILY potassium chloride ER 10-60 mEq tab(s) (K-DUR, KLOR-CON) 10- 60 mEq ORAL PRN therapeutic multivitamin 1 tablet tab(s) (THERA VITAMIN) 1 tablet ORAL DAILY WITH BREAKFAST pantoprazole DR 20 mg tab(s) (PROTONIX) 20 mg ORAL DAILY (6 AM) dextrose 40 % 15 g 15 g ORAL PRN glucagon 1 mg injection (GLUCAGEN) 1 mg INTRAMUSCULAR PRN dextrose 50% in water 25 mL syringe 12.5 g INTRAVENOUS PRN insulin lispro injection (rapid acting) (HumaLOG) SUBCUTANEOUS w MEALS AND HS heparin 5,000 Units injection 5,000 Units SUBCUTANEOUS q 12 H influenza vaccine 180 mcg (Patients 65 years and older) (PF) (FLUZONE HIGH DOSE ) 0.5 mL INTRAMUSCULAR ONCE (IMMUNIZATION) melatonin 3 mg tab(s) 3 mg ORAL DAILY (8 PM) LORazepam 0.25 mg tab(s) (ATIVAN) 0.25 mg ORAL BID PRN warfarin order for discharge OTHER PRN lidocaine 5 % 1 Patch (LIDODERM) 1 Patch TRANSDERMAL DAILY lidocaine patch - REMOVE OTHER AT BEDTIME lidocaine - VERIFY PATCH OTHER q 8 H acetaminophen 1,000 mg tab(s) (TYLENOL) 1,000 mg ORAL q 6 H acetaminophen 650 mg tab(s) (TYLENOL) 650 mg ORAL/FEEDING TUBE q 4 H PRN oxyCODONE IR 5-10 mg tab(s) (ROXICODONE) 5-10 mg ORAL/FEEDING TUBE q 6 H PRN budesonide 0.5 mg/2 mL 0.5 mg (PULMICORT) 0.5 mg INHALATION BID albuterol 2.5 mg /3 mL (0.083 %) 2.5 mg (PROVENTIL) 2.5 mg INHALATION q 4 H PRN PARoxetine 10 mg tab(s) (PAXIL) 10 mg ORAL DAILY OUTPATIENT RX: Current Facility-Administered Medications: furosemide 40 mg injection (LASIX) 40 mg INTRAVENOUS q 12 H 6a/6p 0.9% NaCl 3-5 mL 3-5 mL INTRAVENOUS q 12 H 0.9% NaCl 10 mL 10 mL INTRAVENOUS q 12 H aspirin 162 mg chewable tab(s) 162 mg ORAL DAILY potassium chloride ER 10-60 mEq tab(s) (K-DUR, KLOR-CON) 10- 60 mEq ORAL PRN therapeutic multivitamin 1 tablet tab(s) (THERA VITAMIN) 1 tablet ORAL DAILY WITH BREAKFAST pantoprazole DR 20 mg tab(s) (PROTONIX) 20 mg ORAL DAILY (6 AM) dextrose 40 % 15 g 15 g ORAL PRN Or glucagon 1 mg injection (GLUCAGEN) 1 mg INTRAMUSCULAR PRN Or dextrose 50% in water 25 mL syringe 12.5 g INTRAVENOUS PRN insulin lispro injection (rapid acting) (HumaLOG) SUBCUTANEOUS w MEALS AND HS heparin 5,000 Units injection 5,000 Units SUBCUTANEOUS q 12 H influenza vaccine 180 mcg (Patients 65 years and older) (PF) (FLUZONE HIGH DOSE ) 0.5 mL INTRAMUSCULAR ONCE (IMMUNIZATION) melatonin 3 mg tab(s) 3 mg ORAL DAILY (8 PM) LORazepam 0.25 mg tab(s) (ATIVAN) 0.25 mg ORAL BID PRN warfarin order for discharge OTHER PRN lidocaine 5 % 1 Patch (LIDODERM) 1 Patch TRANSDERMAL DAILY And lidocaine patch - REMOVE OTHER AT BEDTIME And lidocaine - VERIFY PATCH OTHER q 8 H acetaminophen 1,000 mg tab(s) (TYLENOL) 1,000 mg ORAL q 6 H acetaminophen 650 mg tab(s) (TYLENOL) 650 mg ORAL/FEEDING TUBE q 4 H PRN oxyCODONE IR 5-10 mg tab(s) (ROXICODONE) 5-10 mg ORAL/FEEDING TUBE q 6 H PRN budesonide 0.5 mg/2 mL 0.5 mg (PULMICORT) 0.5 mg INHALATION BID albuterol 2.5 mg /3 mL (0.083 %) 2.5 mg (PROVENTIL) 2.5 mg INHALATION q 4 H PRN PARoxetine 10 mg tab(s) (PAXIL) 10 mg ORAL DAILY ALLERGIES: ALLERGIES Allergen Reactions - Zyloprim [Allopurin* Rash - Environmental [Othe* Intolerance rhinitis - Tramadol Other: See Comments made patient woozy/dizzy SOCIAL HISTORY: Social History Substance Use Topics - Smoking status: Former Smoker Packs/day: 1.00 Years: 58.00 Types: Cigarettes Start date: 1956 Quit date: 07/02/2013 - Smokeless tobacco: Never Used Comment: No smoking in childhood home. Spouse quit smoking years before patient did. - Alcohol use Yes Comment: occasional FAMILY HISTORY: FAMILY HISTORY Problem Relation Age of Onset - None Father - None Mother - other (Myocardial infarction) Paternal Grandmother 80 REVIEW OF SYSTEMS: Review of Systems: GEN: no fevers/chills/night sweats, no weight loss HEENT: no congestion, no headaches, no oral lesions, inpatient pharmacist vision changes CV: As per HPI PULM: no cough, no shortness of breath, no wheezing GI: no nausea/vomiting, no diarrhea, no abdominal pain : no dysuria, no hematuria, no change in frequency MSK: no swelling, no weakness NEURO: no numbness, no tingling, no focal weakness SKIN: no rash, no skin breakdown Heme/Lymph: no new lymph nodes, no easy bruising/bleeding PHYSICAL EXAM: BP 120/57 Pulse (!) 45 Temp 36.8 ?C (98.2 ?F) (Oral) Resp 16 Ht 167.6 cm (5' 6) Wt 72.3 kg (159 lb 8 oz) SpO2 95% BMI 25.74 kg/m? GEN: NAD HEENT: no scleral icterus, normal conjuctivae, clear oropharynx NECK: no cervical LAD, no carotid bruits CV: mild irregularity, normal S1, S2, no m/r/g, no elevated JVP, no LE edema, 2+ radial pulses PULM: CTAB, normal work of breathing ABD: Soft, NT, ND, NABS, no organomegaly appreciated NEURO: alert and oriented, no focal deficits SKIN: intact, no rash LABS: Reviewed EKG: -06/10: 1st degree Av block, IVCD, NSR -07/30: NSR with Wenckebach, LBBB -08/03: AF, LBBB, slow ventricular response TELE: AF, slow ventricular response, IMAGING Echocardiogram: - The left ventricle is normal in size. There is upper septal left ventricular hypertrophy. Left ventricular systolic function is normal. EF = 65 ? 5% (2D biplane) Indeterminate left ventricular diastolic dysfunction. - The right ventricle is normal in size. Right ventricular systolic function is normal. - The left atrial cavity is severely dilated. - There is moderate (2+ - 3+) mitral valve regurgitation due to prolapse and redundant leaflets. Eccentric mitral regurigtation due to both posterior leaflet prolapse and GUI. MR severity is likely underestimated due to eccentricity. - Estimated right ventricular systolic pressure is 50 mmHg consistent with moderate pulmonary hypertension. Estimated right atrial pressure is 5 mmHg. - There is dynamic LVOT obstruction with GUI provoked by amyl nitrite (best seen in clips #41, 43 and 125). Dynamic LVOT gradient 80 mmHg. 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, Wenckebach) and LBBB, post septal myectomy -HD stable -HR~50-60, and it seems that the impulse is conducted to the ventricles, so there is no complete heart block currently -Well-tolerated by the patient during ambulation Recommendations: -Continue to monitor for the next 24-48h -Continue anticoagulation with warfarin -If the patient has persistent Afib, we will consider cardioversion (depending on how she does within the next 24-48h) -If her current state is well-tolerated, we would recommend follow-up in clinic in 6-8 weeks -Avoid AV miguel blocking agents -No need for PM implantation currently Pt seen and evaluated with Dr. Elmore. Thank you for allowing us to participate in the care of this patient. EP team will continue to follow. Micha Gupta MD PGY-4 Cardiovascular Medicine Fellow [facility] Pager [phone] EP Consult Pager: [phone] Staff Note: I saw the patient with Dr. Gupta. I reviewed all the clinical information above and re-elicited the information from the pt to confirm the history. Pertinent PE findings were confirmed. My addendum to the above note is below. Recommendations and plans were reviewed with the pt. My impression and recommendations below reflects my discussion with Dr. Gupta about this patient after our visit. Impression and Plans/Recommendations: 78 year old lady with HOCM, MR, atrial fibrillation now s/p septal myectomy, mitral repair, surgical PVI and BURKE clipping and having some bradycardia. Preop EKGs showed SR, with a longish first degree AVB, narrow QRS. She was taking amiodarone to maintain SR. Now post op, she has LBBB. With a faster SR, she was having Wenkebach. Now in AF, she is having HR in the 50-60 bpm range. We walked her in the woods a little, but her HR did not accelerate much. However, she ambulated slowly only and she is only 3 days post op. Currently, I would avoid amiodarone as that is only slowing her ventricular rate down. Given the LQT in the past, I am hesitant to use amiodarone as it does occasionally generate torsades. So, would avoid resuming it at this point. Would observe her HR in the next few days. If stable, can continue in this manner. She has a history of faster AV conduction, but at this point there may be some AV miguel disease contributing to slow ventricular rates. This may recover with time. Sai Elmore MD PROTIME Collected: 08/03/2018 Status: F Source: [place] 4:42 [facility] REPOSITORY TYPE CODE TESTS RESULT OUT OF RANGE REFERENCE UNITS LAB PSEC 9.7-13.0 sec High PT Sec 22.6 LAB INR 0.9-1.3 High PT INR 2.3 Result Comment: Vitamin K Antagonist (VKA) Therapeutic Range: INR 2 to 3 (Target INR of 2.5) Note: For patients treated with VKA drugs, such as warfarin, the [place] [employer] 2012 Guideline recommends a therapeutic INR range of 2 to 3 (target INR of 2.5). This recommendation includes high-risk patients with antiphospholipid syndrome with previous arterial or venous thromboembolism, current-generation mechanical or bioprosthetic aortic heart valve replacement. Note: Patients with mechanical aortic valve replacement and additional risk factors for thromboembolic events (atrial fibrillation, previous thromboembolism, LV dysfunction, hypercoagulable conditions) or an older generation mechanical AVR (i.e., ball in-Cage) or any mechanical MVR should have a INR therapeutic range of 2.5 to 3.5 (target INR of 3). Toni GH, et al. Chest 2012, 141:7S-47S Lilli RA, et al. [facility] 2017, 70: 252-289 Performed By: #### PT, CBC, CMP #### [facility] [address] [address] CBC Collected: 08/03/2018 Status: F Source: [place] 4:42 [facility] REPOSITORY TYPE CODE TESTS RESULT OUT OF REFERENCE UNITS RANGE LAB WBC 3.70-11.00 k/uL WBC 10.51 LAB RBC 3.90-5.20 m/uL Low RBC 3.50 LAB HGB 11.5-15.5 g/dL Low Hemoglobin 8.9 LAB HCT 36.0-46.0 % Low Hematocrit 27.9 LAB MCV 80.0-100.0 fL Low MCV 79.7 LAB MCH 26.0-34.0 pG Low MCH 25.4 LAB MCHC 30.5-36.0 g/dL MCHC 31.9 LAB RDWCV 11.5-15.0 % RDW-CV High 16.2 LAB PLTCT 150-400 k/uL Platelet Count 176 LAB MPV 9.0-12.7 fL MPV 10.7 LAB ABSNUC <0.01 k/uL Absolute High nRBC 0.02 Performed By: #### PT, CBC, CMP #### [facility] [address] [place], [place] [address] COMP METABOLIC PANEL Collected: 08/03/2018 Status: F Source: [place] 4:42 AM [facility] [place] REPOSITORY TYPE CODE TESTS RESULT OUT OF REFERENCE UNITS RANGE LAB TP 6.3-8.0 g/dL Low Protein, Total 5.5 LAB ALB 3.9-4.9 g/dL Low Albumin 3.1 LAB CA 8.5-10.2 mg/dL Low Calcium, Total 8.1 LAB TBIL 0.2-1.3 mg/dL Bilirubin, Total 0.4 LAB ALKP 34-123 U/L Alkaline Phosphatase 85 LAB AST 13-35 U/L AST 25 LAB GLU 74-99 mg/dL Glucose 99 Result Comment: The [place] Diabetes Association (ADA) provides guidance for cutoff values for fasting glucose and random glucose. The ADA defines fasting as no caloric intake for at least 8 hours. Fas ting plasma glucose results between 100 to 125 mg/dL indicate increased risk for diabetes (prediabetes). Fasting plasma glucose results greater than or equal to 126 mg/dL meet the criteria for diagnosis of diabetes. In the absence of unequivocal hyperglycemia, results should be confirmed by repeat testing. In a patient with classic symptoms of hyperglycemia or hyperglycemic crisis, random plasma glucose results greater than or equal to 200 mg/dL meet the criteria for diagnosis of diabetes. Reference: Standards of Medical Care in Diabetes 2016, [place] [employer] Association. Diabetes Care. 2016.39(Suppl 1). LAB BUN 7-21 mg/dL BUN High 29 LAB CRET 0.58-0.96 mg/dL Creatinine High 1.16 LAB NA 136-144 mmol/L Sodium 139 LAB K 3.7-5.1 mmol/L Potassium 4.2 LAB CL 97-105 mmol/L Chloride 100 LAB CO2 22-30 mmol/L CO2 25 LAB AGAP 9-18 mmol/L Anion Gap 14 LAB ALT 7-38 U/L ALT 25 LAB GFRAA eGFR- Amer. 55 LAB GFRNAA . eGFR-All Other Races 45 Result Comment: eGFR (Estimated GFR) Units of measure: mL/min/1.73 meters squared eGFR is derived from the reexpressed MDRD Study equation using the following parameters: serum creatinine, age, gender and race. The creatinine assay has been calibrated to be traceable to IDMS. An eGFR <60 mL/min/1.73m2 for >3 months is consistent with chronic kidney disease. Refer to KDOQI guidelines for clinical interpretation. In patients with unstable renal function, e.g. those with acute kidney injury, the eGFR may not accurately reflect actual GFR. Performed By: #### PT, CBC, CMP #### [place] [address] THERAPY NT Observed: 08/02/2018 Status: COMPLETED Source: [place] 4:54 PM [facility] REPOSITORY HNO ID: [id number] Author: Liberty ElizondoPtDheeraj Brown Service: Physical Therapy Author Type: Physical Therapist Type: Therapy (PT/OT/Speech/Resp) Filed: 08/02/2018 4:55 PM Note Text: PHYSICAL THERAPY MISSED VISIT SERVICE DATE: 08/02/2018 SERVICE TIME: 1515 to 1515 ROOM: [place] [address] Attempted Evaluation. Patient not seen due to Another service at bedside. SIGNATURE: Liberty Brown PT PATIENT NAME: Priscilla Sharpe DATE: August 02, 2018 TIME: 4:55 PM CASE MGT INIT Observed: 08/02/2018 Status: COMPLETED Source: [facility] 1:42 PM [facility] REPOSITORY HNO ID: [id number] Author: Travon Dobbs (Rn) BHARATH Potts Service: Care Management Author Type: Registered Nurse Type: Care Mgt Initial Assessment Filed: 08/02/2018 2:42 PM Note Text: CARE MANAGEMENT: ASSESSMENT AND DISCHARGE PLAN SERVICE DATE: 08/02/2018 SERVICE TIME: 2:30 PM PRIMARY CARE PHYSICIAN: Alisia Pacheco MD ADMISSION STATUS: To Come In MEDICAL: Patient/Feather Shaper Stated Goals: Return home after SNF rehab Health Insurance: [facility] [place] Health Issues Impacting Discharge Plan: None Last Admission Date: none Is this Within the Past 30 days? No Advance Directive: Health Literacy: 1. How often do you need to have someone help you when you read instructions, pamphlets, or other written material from your doctor or pharmacy? Never - 1 2. How confident are you filling out medical forms by yourself? Extremely - 1 If Patient scores > 3 on either question, the following interventions were put into place: Use of plain language and active listening with Patient and family and Patient did not score > 3 FUNCTIONAL AND COGNITIVE/BEHAVIORAL PRIOR TO ADMISSION: Baseline Mental Status: Alert AND Oriented, Person, Place , Time and Situation Functional Status: Needs Assistance - Independent with ADLS. Activities such as walking up steps or long distances caused symptoms. Does Patient Currently Receive Any Community Services or Home Care? None Equipment Prior to Admission: Oxygen via NC at night. 2 liters per minute Has the Patient Been in a Care Home Facility in the Past 30 days? No SOCIAL: Living Arrangement: Home [place] 2 exterior steps. Lives With: Alone Financial Resources: Retired Primary Contact: Extended Emergency Contact Information Primary Emergency Contact: Linda Duarte Relation: Daughter Secondary Emergency Contact: Tirso Sharpe Mobile Relation: Son Supportive: Yes Other Important Patient Contacts: None Caregiver Assessment: Caregiver is ready, willing and able to meet the patient's needs as recommended by the inter-professional team? Yes Patient's transition needs and plan for meeting these needs: Transition to Rehab at [facility]. Does the patient have an acute stroke diagnosis, or has the patient had a stroke during this admission? No Medication Adherence: I am convinced of the importance of my prescription medication: Agree completely - 0 I worry that my prescription medication will do more harm than good to me Disagree mostly - 0 I feel financially burdened by my [id number]-gkxvel expenses for my prescription medication: Disagree completely - 0 Patient is categorized as low risk < 2 Are you interested in bedside delivery of your medications? No Food Concerns: In the Last Month, Have You had Trouble Getting Food? No trouble getting food During the Last Month, Have You Worried Whether Your Food Would Run Out Before You Had Enough Money to Buy More? NA Is the Patient Psychosocially Complex? No ASSESSMENT AND PLAN: Medical Needs: None Psychosocial Needs: None FREEDOM OF CHOICE EXPLAINED: Yes Pt and Family Preference: [facility] POTENTIAL TRANSITION PLANS Home Shelter OT/corporation officerCare Home Facility/Intermediate Care Facility Pt was transferred to [facility] from [facility] ICU s/p recovery from Myectomy, MVr, and PVI. Discharge date is currently pending on medical condition. At this time, awaiting updated cardiac rehab/PT evaluation to r/o rehab needs. CM met with the patient and her family r/t dc plans. They were requesting SNF rehab placement prior to returning to home. Family can provide transportation to rehab center. They approved referral to be sent to requested providers. CM will follow to assist with dc plans. SIGNATURE: Travon Potts RN PATIENT NAME: Priscilla Sharpe DATE: August 02, 2018 TIME: 1:42 PM PAGER/CONTACT #: [phone] or [phone] NURSING PROG Observed: 08/02/2018 Status: COMPLETED Source: [place] 11:41 AM [facility] REPOSITORY [facility] ID: [id number] Author: Marleny (Rn) BHARATH Dewitt Service: Nursing Author Type: Registered Nurse Type: Nursing Progress Note Filed: 08/02/2018 11:42 AM Note Text: Nursing Progress Note Patient Name: Priscilla Sharpe Patient Location: [address]03-02-24 Transfer Note: Patient transferred into room/unit J- in stable condition. Actions taken: Patient oriented to room and environment. She is aware she is a falls risk. Yellow sign outside door, yellow falls socks on. Bed in lowest position with alarm on and call light within reach. Patient agrees to call before getting up. Skin assessment done by myself and BHARATH Brooks, and no skin breakdown noted. No further actions taken at this time. Will continue to monitor and check with patient. This note was completed by: Marleny Dewitt RN THERAPY NT Observed: 08/02/2018 Status: COMPLETED Source: [place] 10:43 AM [facility] REPOSITORY [facility] ID: [id number] Author: Rose ElizondoOtr/L) Don Service: Occupational Therapy Author Type: Occupational Therapist Type: Therapy (PT/OT/Speech/Resp) Filed: 08/02/2018 10:44 AM Note Text: OCCUPATIONAL THERAPY MISSED VISIT SERVICE DATE: 08/02/2018 SERVICE TIME: 945 to 945 ROOM: [place] [address] Attempted evaluation. Patient not seen, per communication with RN, pt being transferred to [facility]. Cardiac OT will follow up when appropriate and able. SIGNATURE: AUDREY Duke/L PATIENT NAME: Priscilla Sharpe DATE: August 02, 2018 TIME: 10:43 AM PROGRESS Observed: 08/02/2018 Status: COMPLETED Source: [place] 8:37 AM [facility] REPOSITORY [facility] ID: [id number] Author: Alexa Watson Service: Critical Care Author Type: Nurse Practitioner Type: Progress Notes Filed: 08/02/2018 8:39 AM Note Text: [facility] CVICU Note Name: Priscilla Sharpe Coordination of Care Note: Indication for Surgery: hypertrophic obstructive cardiomyopathy and mitral insufficiency Preop LVEF: Normal RVF: Normal Postop LVEF: Normal RVF: Mild Important/Relevant PMH/PSH: 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, hypertrophic cardiomyopathy, PAF (cardioversion 05/18, 10/18),moderate pulmonary hypertension, HTN, CAD, dyslipidemia, mitral insufficiency, Long QT syndrome, 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+ pack years (quit 2012), small cell lymphoma s/p chemotherapy, IBS Preoperative Hospital Course (narrative or log of major events): Airway Difficulty: Grade I - easy Pacing wires: Yes: Ventricular: When discontinuing pacing wires: Pull all pacing wires Chronological list of Surgeries and Major Events (diagnosis): (Surgeries in bold characters) 07/30/2018: Primary Sternotomy; Septal Myectomy (6g); MVr (P2 Triangular resection, 33 Rm band), bilateral pulmonary vein isolation, clipping of the left atrial appendage - 2 pump runs d/t hypokenetic RV__ A/P of Major Active Problems (excluding routine care and common problems): Hypoxia - On 4L, Diuresis AND aggressive BPH Afib rate 50-60. Temp pacer set to backup only. Resume coumadin at home dose RADHA/FVO- Continue lasix 40 q 12 To do or to watch: Discharge Planning: Anticipated Discharge Date: Unknown Unknown Care Management Discharge Needs: @[facility]([id number]) Other Problems I Reviewed and/or Managed During This Encounter: Problem Hocm (Hypertrophic Obstructive Cardiomyopathy) (Formerly [facility]) S/p Septal Myectomy (6g) A/p ASA Afib (Formerly [facility]) Home med: Warfarin, Atenolol S/p bilateral pulmonary vein isolation with multiple upper occasions of the AtriCure radiofrequency clamp and clipping of the left atrial appendage with a 50 mm AtriCure clip A/p Bradycardic- Afib 45-40bpm on arrival from or, paced 70 overnight, now afib in the 60s. Resume home dose of coumadin. Continue back up pacing. Mr (Mitral Regurgitation) S/p MVr (P2 Triangular resection, 33 Rm band) A/p ASA Copd (Chronic Obstructive Pulmonary Disease) (Formerly [facility]) A/p Continue Pulmicort and albuterol Hypoxemia Requiring HF O2 after extubation A/p Begin diuresis and oob to chair, wean O2 as able. Oxygenating well on 4L NC Essential Hypertension home med: atenolol AND lasix A/p ntg drip immediately post op, Now off. Maps stable 65- 75, PRN hydralazine. Anxiety preop meds: paxil 10mg daily and prn ativan A/p Continue home meds Postoperative Pain A/p Controlled with CNA PCT fentanyl, scheduled lidoderm patches and tyenol, prn oxycodone Stress Hyperglycemia A/p SSI Hypervolemia A/p Edema noted on exam and CXR. Begin diuresis and monitor closely Radha (Acute Kidney Injury) (Hcc) A/p Cr stable 1.49 today, Avoid nephrotoxic agent and hypotension. Renally dose medications. PHYSICAL EXAM: Neuro: Awake, Follows commands, Alert and oriented x 3 and HUTCHINSON Cardiovascular: Rhythm: atrial fibrillation Pulmonary: Breath sounds equal and Diminished breath sounds, zach bases. On 4 L NC Ventilator: N/A, patient is extubated CXR Findings: Atelectasis Bilateral, Increased Vascular Markings Bilateral and CXR personally viewed and interpreted by ICU staff Nurse Practitioner Gastrointestinal: Abdominal: Soft, Non-tender and Bowel sounds yes DAILY CVICU CHECKLIST VTE Prophylaxis: Pharmacologic Yes VTE Prophylaxis: Mechanical: Yes Line infection prevention: Can CVC, PAC or arterial line be removed: Yes - Remove arterial line and Remove Central venous catheter Continued need for urinary catheter: No- Remove urinary catheter Restraints needed: No SIGNATURE: Alexa Watson CNP DATE of SERVICE: 08/02/2018 TIME of SERVICE: 8:38 AM GASA + ALL Collected: 08/02/2018 Status: F Source: [place] FOR 7:06 AM [facility] USE ONLY REPOSITORY TYPE CODE TESTS RESULT OUT OF REFERENCE UNITS RANGE LAB PH 7.35-7.45 pH 7.43 LAB PCO2 34-46 mm Hg pCO2 39 LAB PO2 85-95 mm Hg pO2 Low 81 LAB BE mmol/L Base Excess 2 LAB HCO3 22-26 mmol/L Bicarbonate 26 LAB CO2CT 22.0-28.0 mmol/L CO2 Content 27 LAB O2HB 95-98 % Oxyhemoglobin, Low Art. 94 LAB COHB 0-5.0 % Carboxyhemoglobin,A 1.5 rt LAB MHGB 0.4-1.5 % Methemoglobin 0.5 LAB TEMP C Temperature, Body 37.0 LAB PHTC 7.35-7.45 pH, Temp Corrected 7.43 LAB PCO2T 34-46 mm Hg pCO2, Temp Correct 39 LAB PO2T mm Hg pO2, Temp Corrected 81 LAB NAB 132-148 mmol/L Sodium,Whole Bld 136 LAB KWB 3.5-5.0 mmol/L Potassium, Whole Bld 3.9 LAB HGBB 11.5-15.5 g/dL Low Hemoglobin,Total,AC 9.3 L LAB HCTB 36.0-46.0 % Hematocrit, ACL Low 29 LAB IC 1.08-1.30 mmol/L Calcium, Ion, WB 1.15 LAB GLB 60-105 mg/dL Glucose,Whole Bld 97 LAB LACT 0.5-2.2 mmol/L Lactate 1.0 Performed By: #### ALLBG #### [facility] [address] [place], [place] [address] XR CHEST 1V FRONTAL Observed: 08/02/2018 Status: F Source: [facility] 6:05 AM [facility] REPOSITORY * * *Final Report* * * DATE OF EXAM: Aug 02 2018 6:05AM J[facility] [id number] - XR CHEST 1V FRONTAL PORT / PROCEDURE REASON: Evaluate tube, line or lead position * * * * Physician Interpretation * * * * EXAMINATION: CHEST RADIOGRAPH (PORTABLE SINGLE VIEW AP) Exam Date/Time: 08/02/2018 6:05 AM Clinical History: Evaluate tube, line or lead position, MQ: XCPMC_5 Comparison: 1 day prior RESULT: See impression. IMPRESSION: Lines, tubes, and devices: Mediastinal drain removed Lungs and pleura: Pleural effusions, bibasilar atelectasis increased with new pulmonary edema Cardiomediastinal silhouette: Stable cardiomegaly Other: . Medical Billing Specialist: PSCB Transcribe Date/Time: Aug 02 2018 9:24A Dictated by : RAMSEY UGARTE MD This examination was interpreted and the report reviewed and electronically signed by: RAMSEY UGARTE MD on Aug 02 2018 9:26AM EST [id number] GASA + ALL Collected: 08/02/2018 Status: F Source: [place] FOR 1:19 AM [facility] RADIANCE USE ONLY REPOSITORY TYPE CODE TESTS RESULT OUT OF REFERENCE UNITS RANGE LAB PH 7.35-7.45 pH 7.43 LAB PCO2 34-46 mm Hg pCO2 38 LAB PO2 85-95 mm Hg pO2 High 97 LAB BE mmol/L Base Excess 1 LAB HCO3 22-26 mmol/L Bicarbonate 25 LAB CO2CT 22.0-28.0 mmol/L CO2 Content 26 LAB O2HB 95-98 % Oxyhemoglobin, Art. 96 LAB COHB 0-5.0 % Carboxyhemoglobin,A 1.8 rt LAB MHGB 0.4-1.5 % Methemoglobin 0.8 LAB TEMP C Temperature, Body 37.0 LAB PHTC 7.35-7.45 pH, Temp Corrected 7.43 LAB PCO2T 34-46 mm Hg pCO2, Temp Correct 38 LAB PO2T mm Hg pO2, Temp Corrected 97 LAB NAB 132-148 mmol/L Sodium,Whole Bld 135 LAB KWB 3.5-5.0 mmol/L Potassium, Whole Bld 3.6 LAB HGBB 11.5-15.5 g/dL Low Hemoglobin,Total,AC 9.2 L LAB HCTB 36.0-46.0 % Hematocrit, ACL Low 29 LAB IC 1.08-1.30 mmol/L Calcium, Ion, WB 1.15 LAB GLB 60-105 mg/dL Glucose,Whole Bld High 117 LAB LACT 0.5-2.2 mmol/L Lactate 1.0 Performed By: #### ALLBG #### [facility] [address] [place], [place] [address] PROTIME Collected: 08/02/2018 Status: F Source: [place] 1:10 AM [facility] REPOSITORY TYPE CODE TESTS RESULT OUT OF RANGE REFERENCE UNITS LAB PSEC 9.7-13.0 sec High PT Sec 16.7 LAB INR 0.9-1.3 High PT INR 1.6 Result Comment: Vitamin K Antagonist (VKA) Therapeutic Range: INR 2 to 3 (Target INR of 2.5) Note: For patients treated with VKA drugs, such as warfarin, the [place] [employer] 2012 Guideline recommends a therapeutic INR range of 2 to 3 (target INR of 2.5). This recommendation includes high-risk patients with antiphospholipid syndrome with previous arterial or venous thromboembolism, current-generation mechanical or bioprosthetic aortic heart valve replacement. Note: Patients with mechanical aortic valve replacement and additional risk factors for thromboembolic events (atrial fibrillation, previous thromboembolism, LV dysfunction, hypercoagulable conditions) or an older generation mechanical AVR (i.e., ball in-Cage) or any mechanical MVR should have a INR therapeutic range of 2.5 to 3.5 (target INR of 3). Toni ROBISON, et al. Chest 2012, 141:7S-47S Lilli WALDRON, et al. JAC 2017, 70: 252-289 Performed By: #### PT, CBC, CMP #### [facility] [address] [place], [place] [address] CBC Collected: 08/02/2018 Status: F Source: [place] 1:10 AM [facility] REPOSITORY TYPE CODE TESTS RESULT OUT OF REFERENCE UNITS RANGE LAB WBC 3.70-11.00 k/uL WBC High 15.02 LAB RBC 3.90-5.20 m/uL Low RBC 3.56 LAB HGB 11.5-15.5 g/dL Low Hemoglobin 9.1 LAB HCT 36.0-46.0 % Low Hematocrit 28.4 LAB MCV 80.0-100.0 fL Low MCV 79.8 LAB MCH 26.0-34.0 pG Low MCH 25.6 LAB MCHC 30.5-36.0 g/dL MCHC 32.0 LAB RDWCV 11.5-15.0 % RDW-CV High 16.0 LAB PLTCT 150-400 k/uL Platelet Count 163 LAB MPV 9.0-12.7 fL MPV 11.3 LAB ABSNUC <0.01 k/uL Absolute nRBC <0.01 Performed By: #### PT, CBC, CMP #### [facility] [address] [place], [place] [address] COMP METABOLIC PANEL Collected: 08/02/2018 Status: F Source: [place] 1:10 AM [facility] REPOSITORY TYPE CODE TESTS RESULT OUT OF REFERENCE UNITS RANGE LAB TP 6.3-8.0 g/dL Low Protein, Total 5.4 LAB ALB 3.9-4.9 g/dL Low Albumin 3.2 LAB CA 8.5-10.2 mg/dL Low Calcium, Total 8.2 LAB TBIL 0.2-1.3 mg/dL Bilirubin, Total 0.4 LAB ALKP 34-123 U/L Alkaline Phosphatase 64 LAB AST 13-35 U/L AST 26 LAB GLU 74-99 mg/dL Glucose High 118 Result Comment: The [place] [employer] (ADA) provides guidance for cutoff values for fasting glucose and random glucose. The ADA defines fasting as no caloric intake for at least 8 hours. Fas ting plasma glucose results between 100 to 125 mg/dL indicate increased risk for diabetes (prediabetes). Fasting plasma glucose results greater than or equal to 126 mg/dL meet the criteria for diagnosis of diabetes. In the absence of unequivocal hyperglycemia, results should be confirmed by repeat testing. In a patient with classic symptoms of hyperglycemia or hyperglycemic crisis, random plasma glucose results greater than or equal to 200 mg/dL meet the criteria for diagnosis of diabetes. Reference: Standards of Medical Care in Diabetes 2016, [place] [employer] Association. Diabetes Care. 2016.39(Suppl 1). LAB BUN 7-21 mg/dL BUN High 35 LAB CRET 0.58-0.96 mg/dL Creatinine High 1.49 LAB NA 136-144 mmol/L Sodium 137 LAB K 3.7-5.1 mmol/L Potassium 3.9 LAB CL 97-105 mmol/L Chloride 100 LAB CO2 22-30 mmol/L CO2 23 LAB AGAP 9-18 mmol/L Anion Gap 14 LAB ALT 7-38 U/L ALT 22 LAB GFRAA eGFR- Amer. 41 LAB GFRNAA . eGFR-All Other Races 34 Result Comment: eGFR (Estimated GFR) Units of measure: mL/min/1.73 meters squared eGFR is derived from the reexpressed MDRD Study equation using the following parameters: serum creatinine, age, gender and race. The creatinine assay has been calibrated to be traceable to IDMS. An eGFR <60 mL/min/1.73m2 for >3 months is consistent with chronic kidney disease. Refer to KDOQI guidelines for clinical interpretation. In patients with unstable renal function, e.g. those with acute kidney injury, the eGFR may not accurately reflect actual GFR. Performed By: #### PT, CBC, CMP #### [facility] [address] [place], [place] [address] GASA + ALL Collected: 08/01/2018 Status: F Source: [place] FOR 5:27 PM [facility] RADIANCE USE ONLY REPOSITORY TYPE CODE TESTS RESULT OUT OF REFERENCE UNITS RANGE LAB PH 7.35-7.45 pH 7.40 LAB PCO2 34-46 mm Hg pCO2 36 LAB PO2 85-95 mm Hg pO2 94 LAB BE mmol/L Base Excess NEG 2 LAB HCO3 22-26 mmol/L Bicarbonate 22 LAB CO2CT 22.0-28.0 mmol/L CO2 Content 23 LAB O2HB 95-98 % Oxyhemoglobin, Art. 97 LAB COHB 0-5.0 % Carboxyhemoglobin,A 0.9 rt LAB MHGB 0.4-1.5 % Methemoglobin Low 0.0 LAB TEMP C Temperature, Body 37.0 LAB PHTC 7.35-7.45 pH, Temp Corrected 7.40 LAB PCO2T 34-46 mm Hg pCO2, Temp Correct 36 LAB PO2T mm Hg pO2, Temp Corrected 94 LAB NAB 132-148 mmol/L Sodium,Whole Bld 134 LAB KWB 3.5-5.0 mmol/L Potassium, Whole Bld 4.0 LAB HGBB 11.5-15.5 g/dL Low Hemoglobin,Total,AC 8.7 L LAB HCTB 36.0-46.0 % Hematocrit, ACL Low 27 LAB IC 1.08-1.30 mmol/L Calcium, Ion, WB 1.11 LAB GLB 60-105 mg/dL Glucose,Whole Bld High 125 LAB LACT 0.5-2.2 mmol/L Lactate 1.1 Performed By: #### ALLBG #### [facility] [address] [place], [place] [address] PROGRESS Observed: 08/01/2018 Status: COMPLETED Source: [place] 10:56 AM [facility] REPOSITORY [facility]NO ID: [id number] Author: Alexa Watson Service: Critical Care Author Type: Nurse Practitioner Type: Progress Notes Filed: 08/01/2018 10:58 AM Note Text: [facility] CVICU Note Name: Priscilla Sharpe Coordination of Care Note: Indication for Surgery: hypertrophic obstructive cardiomyopathy and mitral insufficiency Preop LVEF: Normal RVF: Normal Postop LVEF: Normal RVF: Mild Important/Relevant PMH/PSH: 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, hypertrophic cardiomyopathy, PAF (cardioversion 05/18, 10/18),moderate pulmonary hypertension, HTN, CAD, dyslipidemia, mitral insufficiency, Long QT syndrome, 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+ pack years (quit 2012), small cell lymphoma s/p chemotherapy, IBS Preoperative Hospital Course (narrative or log of major events): Airway Difficulty: Grade I - easy Pacing wires: Yes: Ventricular: When discontinuing pacing wires: Pull all pacing wires Chronological list of Surgeries and Major Events (diagnosis): (Surgeries in bold characters) 07/30/2018: Primary Sternotomy; Septal Myectomy (6g); MVr (P2 Triangular resection, 33 Rm band), bilateral pulmonary vein isolation, clipping of the left atrial appendage - 2 pump runs d/t hypokenetic RV__ A/P of Major Active Problems (excluding routine care and common problems): Hypoxia - On 6L, Diuresis AND aggressive BPH Bradycardia- Afib 45-40bpm upon arrival from OR, AGRONOMY ADVISOR 70 overnight, underlying rhythm is afib in the 60s, temp pacer set to backup only. Resume coumadin at home dose Hypertension - goal MAP 65-75 FVO- Begin diuresis Anxiety - paxil and prn ativan To do or to watch: Discharge Planning: Anticipated Discharge Date: Unknown Unknown Care Management Discharge Needs: @[facility]([id number]) Other Problems I Reviewed and/or Managed During This Encounter: Problem Hocm (Hypertrophic Obstructive Cardiomyopathy) (Formerly [facility]) S/p Septal Myectomy (6g) A/p ASA Afib (Formerly [facility]) Home med: Warfarin, Atenolol S/p bilateral pulmonary vein isolation with multiple upper occasions of the AtriCure radiofrequency clamp and clipping of the left atrial appendage with a 50 mm AtriCure clip A/p Bradycardic- Afib 45-40bpm on arrival from or, paced 70 overnight, now afib in the 60s. Resume home dose of coumadin Mr (Mitral Regurgitation) S/p MVr (P2 Triangular resection, 33 Rm band) A/p ASA Copd (Chronic Obstructive Pulmonary Disease) (Formerly [facility]) A/p Continue Pulmicort and albuterol Hypoxemia Requiring HF O2 after extubation A/p Begin diuresis and oob to chair, wean O2 as able Essential Hypertension home med: atenolol AND lasix A/p ntg drip immediately post op, Now off. Anxiety preop meds: paxil 10mg daily and prn ativan A/p Continue home meds Postoperative Pain A/p Controlled with CNA PCT fentanyl, scheduled lidoderm patches and tyenol, prn oxycodone Stress Hyperglycemia A/p SSI Hypervolemia A/p Edema noted on exam. Begin diuresis and monitor closely Radha (Acute Kidney Injury) (Hcc) A/p Cr uptrending, Avoid nephrotoxic agent and hypotension. Renally dose medications. PHYSICAL EXAM: Neuro: Awake, Follows commands, Alert and oriented x 3 and HUTCHINSON Cardiovascular: Rhythm: irregularly irregular and atrial fibrillation Pulmonary: Breath sounds equal and Diminished breath sounds, zach bases. On 6L Ventilator: N/A, patient is extubated CXR Findings: Atelectasis Bilateral, Increased Vascular Markings Bilateral and CXR personally viewed and interpreted by ICU staff Nurse Practitioner Gastrointestinal: Abdominal: Soft and Non-tender DAILY CVICU CHECKLIST VTE Prophylaxis: Pharmacologic Yes VTE Prophylaxis: Mechanical: Yes Line infection prevention: Can CVC, PAC or arterial line be removed: No Continued need for urinary catheter: Yes - clinical indication: Patient post major surgery requiring fluid balance and input and output measurement. Restraints needed: No SIGNATURE: Alexa Watson CNP DATE of SERVICE: 08/01/2018 TIME of SERVICE: 10:56 AM GASA + ALL Collected: 08/01/2018 Status: F Source: [place] FOR 7:30 AM [facility] USE ONLY REPOSITORY TYPE CODE TESTS RESULT OUT OF REFERENCE UNITS RANGE LAB PH 7.35-7.45 pH 7.40 LAB PCO2 34-46 mm Hg pCO2 Low 32 LAB PO2 85-95 mm Hg pO2 High 120 LAB BE mmol/L Base Excess NEG 4 LAB HCO3 22-26 mmol/L Bicarbonate Low 20 LAB CO2CT 22.0-28.0 mmol/L CO2 Content Low 21 LAB O2HB 95-98 % Oxyhemoglobin, Art. 97 LAB COHB 0-5.0 % Carboxyhemoglobin,A 1.2 rt LAB MHGB 0.4-1.5 % Methemoglobin 0.5 LAB TEMP C Temperature, Body 37.0 LAB PHTC 7.35-7.45 pH, Temp Corrected 7.40 LAB PCO2T 34-46 mm Hg pCO2, Temp Low Correct 32 LAB PO2T mm Hg pO2, Temp Corrected 120 LAB NAB 132-148 mmol/L Sodium,Whole Bld 136 LAB KWB 3.5-5.0 mmol/L Potassium, Whole Bld 4.5 LAB HGBB 11.5-15.5 g/dL Low Hemoglobin,Total,AC 9.1 L LAB HCTB 36.0-46.0 % Hematocrit, ACL Low 28 LAB IC 1.08-1.30 mmol/L Calcium, Ion, WB 1.19 LAB GLB 60-105 mg/dL Glucose,Whole Bld High 131 LAB LACT 0.5-2.2 mmol/L Lactate 1.7 Performed By: #### ALLBG #### [facility] [address] [place], [place] [address] GASA + ALL Collected: 08/01/2018 Status: F Source: [facility] 2:35 AM [facility] USE ONLY REPOSITORY TYPE CODE TESTS RESULT OUT OF REFERENCE UNITS RANGE LAB PH 7.35-7.45 pH 7.38 LAB PCO2 34-46 mm Hg pCO2 37 LAB PO2 85-95 mm Hg pO2 95 LAB BE mmol/L Base Excess NEG 3 LAB HCO3 22-26 mmol/L Bicarbonate Low 21 LAB CO2CT 22.0-28.0 mmol/L CO2 Content 22 LAB O2HB 95-98 % Oxyhemoglobin, Art. 95 LAB COHB 0-5.0 % Carboxyhemoglobin,A 1.3 rt LAB MHGB 0.4-1.5 % Methemoglobin 1.3 LAB TEMP C Temperature, Body 37.0 LAB PHTC 7.35-7.45 pH, Temp Corrected 7.38 LAB PCO2T 34-46 mm Hg pCO2, Temp Correct 37 LAB PO2T mm Hg pO2, Temp Corrected 95 LAB NAB 132-148 mmol/L Sodium,Whole Bld 137 LAB KWB 3.5-5.0 mmol/L Potassium, Whole Bld 4.5 LAB HGBB 11.5-15.5 g/dL Low Hemoglobin,Total,AC 9.3 L LAB HCTB 36.0-46.0 % Hematocrit, ACL Low 29 LAB IC 1.08-1.30 mmol/L Calcium, Ion, WB 1.26 LAB GLB 60-105 mg/dL Glucose,Whole Bld High 132 LAB LACT 0.5-2.2 mmol/L Lactate 2.1 Performed By: #### ALLBG #### [facility] [address] [place], [place] [address] XR CHEST 1V FRONTAL Observed: 08/01/2018 Status: F Source: [facility] 1:45 AM [facility] REPOSITORY * * *Final Report* * * DATE OF EXAM: Aug 01 2018 1:45AM [facility] [id number] - XR CHEST 1V FRONTAL PORT / PROCEDURE REASON: Evaluate tube, line or lead position * * * * Physician Interpretation * * * * EXAMINATION: CHEST RADIOGRAPH (PORTABLE SINGLE VIEW AP) Exam Date/Time: 08/01/2018 1:45 AM Clinical History: Evaluate tube, line or lead position, MQ: XCPMC_5 Comparison: 07/31/2018 RESULT: See impression. IMPRESSION: Lines, tubes, and devices: Stable Lungs and pleura: Increase and/or shift of small pleural effusions and increase of basilar atelectasis. Superimposed infiltrates/infection or edema cannot be entirely excluded. Cardiomediastinal silhouette: Stable cardiomediastinal silhouette. Other: Median sternotomy Medical Billing Specialist: PHILIPPE Transcribe Date/Time: Aug 01 2018 10:58A Dictated by : FRIEDA DOMINGO MD This examination was interpreted and the report reviewed and electronically signed by: FRIEDA DOMINGO MD on Aug 01 2018 11:00AM EST [id number] GASA + ALL Collected: 08/01/2018 Status: F Source: [place] FOR 12:42 AM [facility] USE ONLY REPOSITORY TYPE CODE TESTS RESULT OUT OF REFERENCE UNITS RANGE LAB PH 7.35-7.45 pH 7.36 LAB PCO2 34-46 mm Hg pCO2 38 LAB PO2 85-95 mm Hg pO2 High 111 LAB BE mmol/L Base Excess NEG 4 LAB HCO3 22-26 mmol/L Bicarbonate Low 21 LAB CO2CT 22.0-28.0 mmol/L CO2 Content 22 LAB O2HB 95-98 % Oxyhemoglobin, Art. 97 LAB COHB 0-5.0 % Carboxyhemoglobin,A 1.4 rt LAB MHGB 0.4-1.5 % Methemoglobin 0.4 LAB TEMP C Temperature, Body 37.0 LAB PHTC 7.35-7.45 pH, Temp Corrected 7.36 LAB PCO2T 34-46 mm Hg pCO2, Temp Correct 38 LAB PO2T mm Hg pO2, Temp Corrected 111 LAB NAB 132-148 mmol/L Sodium,Whole Bld 136 LAB KWB 3.5-5.0 mmol/L Potassium, Whole Bld 4.4 LAB HGBB 11.5-15.5 g/dL Low Hemoglobin,Total,AC 9.1 L LAB HCTB 36.0-46.0 % Hematocrit, ACL Low 28 LAB IC 1.08-1.30 mmol/L Calcium, Ion, WB 1.22 LAB GLB 60-105 mg/dL Glucose,Whole Bld High 131 LAB LACT 0.5-2.2 mmol/L Lactate High 2.8 Performed By: #### ALLBG #### [facility] [address], [place] [address] PROTIME Collected: 08/01/2018 Status: F Source: [place] 12:40 AM [facility] REPOSITORY TYPE CODE TESTS RESULT OUT OF RANGE REFERENCE UNITS LAB PSEC 9.7-13.0 sec High PT Sec 15.1 LAB INR 0.9-1.3 High PT INR 1.5 Result Comment: Vitamin K Antagonist (VKA) Therapeutic Range: INR 2 to 3 (Target INR of 2.5) Note: For patients treated with VKA drugs, such as warfarin, the [place] [employer] 2012 Guideline recommends a therapeutic INR range of 2 to 3 (target INR of 2.5). This recommendation includes high-risk patients with antiphospholipid syndrome with previous arterial or venous thromboembolism, current-generation mechanical or bioprosthetic aortic heart valve replacement. Note: Patients with mechanical aortic valve replacement and additional risk factors for thromboembolic events (atrial fibrillation, previous thromboembolism, LV dysfunction, hypercoagulable conditions) or an older generation mechanical AVR (i.e., ball in-Cage) or any mechanical MVR should have a INR therapeutic range of 2.5 to 3.5 (target INR of 3). Toni GH, et al. Chest 2012, 141:7S-47S Lilli RA, et al. [facility] 2017, 70: 252-289 Performed By: #### PT, PTT, MG1, PHOS, CMP, CBC #### [facility] [address], [place] [address] APTT Collected: 08/01/2018 Status: F Source: [place] 12:40 AM [facility] REPOSITORY TYPE CODE TESTS RESULT OUT OF RANGE REFERENCE UNITS LAB APTT 23.0-32.4 sec High APTT 40.5 Result Comment: Unfractionated Heparin Therapeutic Ranges: Standard Heparin Nomogram: 53 to 78 seconds (anti-Xa level of 0.3 to 0.7 U/ml) Low Dose/ACS Nomogram: 49 to 67 seconds (anti-Xa level of 0.2 to 0.5 U/ml) Stroke Treatment Nomogram: 49 to 67 seconds (anti-Xa level of 0.2 to 0.5 U/ml) Note: The APTT therapeutic range has been determined for the current lot of laboratory APTT reagent in use throughout the [facility]. Performed By: #### PT, PTT, MG1, PHOS, CMP, CBC #### [facility] [address] [address] MAGNESIUM Collected: 08/01/2018 Status: F Source: [place] 12:40 AM [facility] REPOSITORY TYPE CODE TESTS RESULT OUT OF REFERENCE UNITS RANGE LAB MG 1.7-2.3 mg/dL Magnesium 1.9 Performed By: #### PT, PTT, MG1, PHOS, CMP, CBC #### [place] [address] PHOSPHORUS Collected: 08/01/2018 Status: F Source: [place] 12:40 AM [facility] REPOSITORY TYPE CODE TESTS RESULT OUT OF REFERENCE UNITS RANGE LAB PHOS 2.7-4.8 mg/dL Phosphorus 4.5 Performed By: #### PT, PTT, MG1, PHOS, CMP, CBC #### [place] [id number] COMP METABOLIC PANEL Collected: 08/01/2018 Status: F Source: [place] 12:40 AM [facility] REPOSITORY TYPE CODE TESTS RESULT OUT OF REFERENCE UNITS RANGE LAB TP 6.3-8.0 g/dL Low Protein, Total 5.7 LAB ALB 3.9-4.9 g/dL Low Albumin 3.5 LAB CA 8.5-10.2 mg/dL Calcium, Total 9.0 LAB TBIL 0.2-1.3 mg/dL Bilirubin, Total 0.4 LAB ALKP 34-123 U/L Alkaline Phosphatase 53 LAB AST 13-35 U/L AST 32 LAB GLU 74-99 mg/dL Glucose High 133 Result Comment: The [place] [employer] (ADA) provides guidance for cutoff values for fasting glucose and random glucose. The ADA defines fasting as no caloric intake for at least 8 hours. Fas ting plasma glucose results between 100 to 125 mg/dL indicate increased risk for diabetes (prediabetes). Fasting plasma glucose results greater than or equal to 126 mg/dL meet the criteria for diagnosis of diabetes. In the absence of unequivocal hyperglycemia, results should be confirmed by repeat testing. In a patient with classic symptoms of hyperglycemia or hyperglycemic crisis, random plasma glucose results greater than or equal to 200 mg/dL meet the criteria for diagnosis of diabetes. Reference: Standards of Medical Care in Diabetes 2016, [place] [employer]. Diabetes Care. 2016.39(Suppl 1). LAB BUN 7-21 mg/dL BUN High 25 LAB CRET 0.58-0.96 mg/dL Creatinine High 1.46 LAB NA 136-144 mmol/L Sodium 138 LAB K 3.7-5.1 mmol/L Potassium 4.7 LAB CL 97-105 mmol/L Chloride 104 LAB CO2 22-30 mmol/L Low CO2 21 LAB AGAP 9-18 mmol/L Anion Gap 13 LAB ALT 7-38 U/L ALT 16 LAB GFRAA eGFR- Amer. 42 LAB GFRNAA . eGFR-All Other Races 35 Result Comment: eGFR (Estimated GFR) Units of measure: mL/min/1.73 meters squared eGFR is derived from the reexpressed MDRD Study equation using the following parameters: serum creatinine, age, gender and race. The creatinine assay has been calibrated to be traceable to IDMS. An eGFR <60 mL/min/1.73m2 for >3 months is consistent with chronic kidney disease. Refer to KDOQI guidelines for clinical interpretation. In patients with unstable renal function, e.g. those with acute kidney injury, the eGFR may not accurately reflect actual GFR. Performed By: #### PT, PTT, MG1, PHOS, CMP, CBC #### [facility] [address] [place], [place] [address] CBC Collected: 08/01/2018 Status: F Source: [place] 12:40 AM [facility] REPOSITORY TYPE CODE TESTS RESULT OUT OF REFERENCE UNITS RANGE LAB WBC 3.70-11.00 k/uL WBC High 16.45 LAB RBC 3.90-5.20 m/uL Low RBC 3.48 LAB HGB 11.5-15.5 g/dL Low Hemoglobin 8.8 LAB HCT 36.0-46.0 % Low Hematocrit 28.0 LAB MCV 80.0-100.0 fL MCV 80.5 LAB MCH 26.0-34.0 pG Low MCH 25.3 LAB MCHC 30.5-36.0 g/dL MCHC 31.4 LAB RDWCV 11.5-15.0 % RDW-CV High 15.9 LAB PLTCT 150-400 k/uL Low Platelet Count 130 Result Comment: Result checked and verified No clot detected. LAB MPV 9.0-12.7 fL MPV 10.8 LAB ABSNUC <0.01 k/uL Absolute nRBC <0.01 Performed By: #### PT, PTT, MG1, PHOS, CMP, CBC #### [facility] [address] [place], [place] [address] GASA + ALL Collected: 07/31/2018 Status: F Source: [place] FOR 8:50 PM [facility] RADIANCE USE ONLY REPOSITORY TYPE CODE TESTS RESULT OUT OF REFERENCE UNITS RANGE LAB PH 7.35-7.45 pH 7.36 LAB PCO2 34-46 mm Hg pCO2 34 LAB PO2 85-95 mm Hg pO2 Low 69 LAB BE mmol/L Base Excess NEG 6 LAB HCO3 22-26 mmol/L Bicarbonate Low 19 LAB CO2CT 22.0-28.0 mmol/L CO2 Content Low 20 LAB O2HB 95-98 % Oxyhemoglobin, Low Art. 92 LAB COHB 0-5.0 % Carboxyhemoglobin,A 1.3 rt LAB MHGB 0.4-1.5 % Methemoglobin 0.6 LAB TEMP C Temperature, Body 37.0 LAB PHTC 7.35-7.45 pH, Temp Corrected 7.36 LAB PCO2T 34-46 mm Hg pCO2, Temp Correct 34 LAB PO2T mm Hg pO2, Temp Corrected 69 LAB NAB 132-148 mmol/L Sodium,Whole Bld 135 LAB KWB 3.5-5.0 mmol/L Potassium, Whole Bld 4.3 LAB HGBB 11.5-15.5 g/dL Low Hemoglobin,Total,AC 9.7 L LAB HCTB 36.0-46.0 % Hematocrit, ACL Low 30 LAB IC 1.08-1.30 mmol/L Calcium, Ion, WB 1.21 LAB GLB 60-105 mg/dL Glucose,Whole Bld High 178 LAB LACT 0.5-2.2 mmol/L Lactate High 3.6 Performed By: #### ALLBG #### [facility] [address] [place], [place] [address] GASA + ALL Collected: 07/31/2018 Status: F Source: [place] FOR 6:23 PM [facility] RADIANCE USE ONLY REPOSITORY TYPE CODE TESTS RESULT OUT OF REFERENCE UNITS RANGE LAB PH 7.35-7.45 pH 7.36 LAB PCO2 34-46 mm Hg pCO2 34 LAB PO2 85-95 mm Hg pO2 Low 78 LAB BE mmol/L Base Excess NEG 5 LAB HCO3 22-26 mmol/L Bicarbonate Low 19 LAB CO2CT 22.0-28.0 mmol/L CO2 Content Low 20 LAB O2HB 95-98 % Oxyhemoglobin, Low Art. 93 LAB COHB 0-5.0 % Carboxyhemoglobin,A 0.9 rt LAB MHGB 0.4-1.5 % Methemoglobin 0.8 LAB TEMP C Temperature, Body 37.0 LAB PHTC 7.35-7.45 pH, Temp Corrected 7.36 LAB PCO2T 34-46 mm Hg pCO2, Temp Correct 34 LAB PO2T mm Hg pO2, Temp Corrected 78 LAB NAB 132-148 mmol/L Sodium,Whole Bld 138 LAB KWB 3.5-5.0 mmol/L Potassium, Whole Bld 4.1 LAB HGBB 11.5-15.5 g/dL Low Hemoglobin,Total,AC 8.5 L LAB HCTB 36.0-46.0 % Hematocrit, ACL Low 26 LAB IC 1.08-1.30 mmol/L Calcium, Ion, WB 1.18 LAB GLB 60-105 mg/dL Glucose,Whole Bld High 164 LAB LACT 0.5-2.2 mmol/L Lactate High 2.6 Performed By: #### ALLBG #### [facility] [address] [place], [place] [address] GASA + ALL Collected: 07/31/2018 Status: F Source: [place] FOR 3:39 PM [facility] TYPE CODE TESTS RESULT OUT OF REFERENCE UNITS RANGE LAB PH 7.35-7.45 pH 7.35 LAB PCO2 34-46 mm Hg pCO2 35 LAB PO2 85-95 mm Hg pO2 88 LAB BE mmol/L Base Excess NEG 6 LAB HCO3 22-26 mmol/L Bicarbonate Low 19 LAB CO2CT 22.0-28.0 mmol/L CO2 Content Low 20 LAB O2HB 95-98 % Oxyhemoglobin, Art. 95 LAB COHB 0-5.0 % Carboxyhemoglobin,A 1.1 rt LAB MHGB 0.4-1.5 % Methemoglobin 0.6 LAB TEMP C Temperature, Body 37.0 LAB PHTC 7.35-7.45 pH, Temp Corrected 7.35 LAB PCO2T 34-46 mm Hg pCO2, Temp Correct 35 LAB PO2T mm Hg pO2, Temp Corrected 88 LAB NAB 132-148 mmol/L Sodium,Whole Bld 138 LAB KWB 3.5-5.0 mmol/L Potassium, Whole Bld 4.4 LAB HGBB 11.5-15.5 g/dL Low Hemoglobin,Total,AC 8.8 L LAB HCTB 36.0-46.0 % Hematocrit, ACL Low 27 LAB IC 1.08-1.30 mmol/L Calcium, Ion, WB 1.19 LAB GLB 60-105 mg/dL Glucose,Whole Bld High 166 LAB LACT 0.5-2.2 mmol/L Lactate High 4.2 Performed By: #### ALLBG #### [facility] [address] [place], [place] [address] ECG COMPLETE W Observed: 07/31/2018 Status: F Source: [place] INTERPRETATION 1:25 PM [facility] REPOSITORY NAME : PRISCILLA SHARPE PID : [id number] : 1940 Gender : Female Race : ORD : [id number] Procedure Date : Jul 31 2018 13:25:26 Edit Date : Aug 03 2018 12:58:38 Diagnosis:JUNCTIONAL RHYTHM with occassional sinus node capture COMPLETE LEFT BUNDLE BRANCH BLOCK ABNORMAL ECG Confirmed by MD SAMANTHA, PhD, ZAMZAM ([id number]) on 08/03/2018 12:58:31 PM Ventricular Rate : 55 BPM Atrial Rate : 80 BPM P-R Interval : 284 ms QRS Duration : 152 ms Q-T Interval : 672 ms QTC Calculation(Bezet) : 642 ms P Friendship : 86 degrees R Friendship : -10 degrees T Friendship : 97 degrees Test Reason : Location : 350 : [id number] Overread By : MD SAMANTHA, PhD,ZAMZAM Edited By : MD SAMANTHA, PhD,ZAMZAM Referred By : , Acquired by : , PROGRESS Observed: 07/31/2018 Status: COMPLETED Source: [place] 12:04 PM [facility] REPOSITORY HNO ID: [id number] Author: Janet Diggs (Counter Hop) Ronald Service: Critical Care Author Type: Nurse Practitioner Type: Progress Notes Filed: 07/31/2018 12:09 PM Note Text: [facility] CV[facility] Note Name: Priscilla Sharpe Coordination of Care Note: Indication for Surgery: hypertrophic obstructive cardiomyopathy and mitral insufficiency Preop LVEF: Normal RVF: Normal Postop LVEF: Normal RVF: Mild Important/Relevant PMH/PSH: 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, hypertrophic cardiomyopathy, PAF (cardioversion 05/18, 10/18),moderate pulmonary hypertension, HTN, CAD, dyslipidemia, mitral insufficiency, Long QT syndrome, 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+ pack years (quit 2012), small cell lymphoma s/p chemotherapy, IBS Preoperative Hospital Course (narrative or log of major events): Airway Difficulty: Grade I - easy Pacing wires: Yes: Ventricular: When discontinuing pacing wires: Pull all pacing wires Chronological list of Surgeries and Major Events (diagnosis): (Surgeries in bold characters) 07/30/2018: Primary Sternotomy; Septal Myectomy (6g); MVr (P2 Triangular resection, 33 Rm band), bilateral pulmonary vein isolation, clipping of the left atrial appendage - 2 pump runs d/t hypokenetic RV__ A/P of Major Active Problems (excluding routine care and common problems): Hypoxia - single dose of lasix and aggressive BPH Bradycardia- Afib 45-40bpm upon arrival from OR, AGRONOMY ADVISOR 70 overnight, underlying rhythm is afib in the 60s, temp pacer set to backup only. Resume coumadin at home dose Hypertension - goal MAP 65-75 Fluctuating lactic acid - albumin Anxiety - paxil and prn ativan To do or to watch: Discharge Planning: Anticipated Discharge Date: Unknown Unknown Care Management [id number] Other Problems I Reviewed and/or Managed During This Encounter: Problem Hocm (Hypertrophic Obstructive Cardiomyopathy) (Hcc) S/p Septal Myectomy (6g) A/p ASA Afib (Hcc) Home med: Warfarin, Atenolol S/p bilateral pulmonary vein isolation with multiple upper occasions of the AtriCure radiofrequency clamp and clipping of the left atrial appendage with a 50 mm AtriCure clip A/p Bradycardic- Afib 45-40bpm on arrival from or, paced 70 overnight, now afib in the 60s - check 12 lead, pacer set to back up only. Resume home dose of coumadin Hypoxemia Requiring HF O2 after extubation Single dose of lasix and oob to chair, wean O2 as able Long Q-T Syndrome Essential Hypertension home med: atenolol AND lasix ntg drip immediately post op weaned to off Anxiety preop meds: paxil 10mg daily and prn ativan - resumed Postoperative Pain A/p Controlled with CNA PCT fentanyl, scheduled lidoderm patches and tyenol, prn oxycodone Stress Hyperglycemia A/p SSI Hypovolemia/fluctuating lacic acidosis A/p albumin given x1 Discharge Planning Issues Priscilla Sharpe is a 78 year old female from [facility] Anticipated Discharge Needs: PT/OT/RT evalulation for anticipated Home Care needs PHYSICAL EXAM: Neuro: Follows commands, Alert and oriented x 3 and [place] Cardiovascular: Rhythm: irregularly irregular - afib Pulmonary: Clear to auscultation and Breath sounds equal Ventilator: N/A, patient is extubated CXR Findings: Atelectasis Bilateral, Increased Vascular Markings Bilateral and CXR personally viewed and interpreted by ICU staff Nurse Practitioner Gastrointestinal: Abdominal: Soft, Non-tender and Bowel sounds yes DAILY CVICU CHECKLIST VTE Prophylaxis: Pharmacologic Yes VTE Prophylaxis: Mechanical: Yes Line infection prevention: Can CVC, PAC or arterial line be removed: No Continued need for urinary catheter: Yes - clinical indication: Patient post major surgery requiring fluid balance and input and output measurement. Restraints needed: No This patient has a high probability of sudden, clinically significant deterioration, which requires the highest level of preparedness to intervene urgently. I participated in the decision making and personally managed or directed the management of the following life and organ supporting interventions that required my frequent assessment to treat or prevent imminent deterioration of: Atrial Arrhythmias, lactic acidosis, and Heart Block I personally spent 34 minutes of critical care time treating the patient. Time devoted to any procedures I billed separately is not included. SIGNATURE: Janet Cardenas APRN.CNP DATE of SERVICE: 07/31/2018 TIME of SERVICE: 12:04 PM GASA + ALL Collected: 07/31/2018 Status: F Source: [place] FOR 11:22 AM [facility] USE ONLY REPOSITORY TYPE CODE TESTS RESULT OUT OF REFERENCE UNITS RANGE LAB PH 7.35-7.45 pH 7.35 LAB PCO2 34-46 mm Hg pCO2 41 LAB PO2 85-95 mm Hg pO2 85 LAB BE mmol/L Base Excess NEG 3 LAB HCO3 22-26 mmol/L Bicarbonate 22 LAB CO2CT 22.0-28.0 mmol/L CO2 Content 23 LAB O2HB 95-98 % Oxyhemoglobin, Low Art. 94 LAB COHB 0-5.0 % Carboxyhemoglobin, 1.3 Art LAB MHGB 0.4-1.5 % Methemoglobin 0.4 LAB TEMP C Temperature, Body 37.0 LAB PHTC 7.35-7.45 pH, Temp Corrected 7.35 LAB PCO2T 34-46 mm Hg pCO2, Temp Correct 41 LAB PO2T mm Hg pO2, Temp Corrected 85 LAB NAB 132-148 mmol/L Sodium,Whole Bld 136 LAB KWB 3.5-5.0 mmol/L Potassium, Whole Bld 4.7 LAB HGBB 11.5-15.5 g/dL Low Hemoglobin,Total,A 9.5 CL LAB HCTB 36.0-46.0 % Hematocrit, Low ACL 29 LAB IC 1.08-1.30 mmol/L Calcium, Ion, WB 1.24 LAB GLB 60-105 mg/dL Glucose,Whole High Bld 158 LAB LACT 0.5-2.2 mmol/L Lactate 1.4 LAB ACBDTE Notify Date, Art [id number] LAB ACBTME Notify Time, Art Performed By: #### ALLBG #### [facility] [address], [place] [address] GASA + ALL Collected: 07/31/2018 Status: F Source: [place] FOR 8:01 AM [facility] USE ONLY REPOSITORY TYPE CODE TESTS RESULT OUT OF REFERENCE UNITS RANGE LAB PH 7.35-7.45 pH 7.38 LAB PCO2 34-46 mm Hg pCO2 39 LAB PO2 85-95 mm Hg pO2 88 LAB BE mmol/L Base Excess NEG 2 LAB HCO3 22-26 mmol/L Bicarbonate 22 LAB CO2CT 22.0-28.0 mmol/L CO2 Content 23 LAB O2HB 95-98 % Oxyhemoglobin, Art. 95 LAB COHB 0-5.0 % Carboxyhemoglobin,A 1.1 rt LAB MHGB 0.4-1.5 % Methemoglobin 1.3 LAB TEMP C Temperature, Body 37.0 LAB PHTC 7.35-7.45 pH, Temp Corrected 7.38 LAB PCO2T 34-46 mm Hg pCO2, Temp Correct 39 LAB PO2T mm Hg pO2, Temp Corrected 88 LAB NAB 132-148 mmol/L Sodium,Whole Bld 137 LAB KWB 3.5-5.0 mmol/L Potassium, Whole Bld 4.7 LAB HGBB 11.5-15.5 g/dL Low Hemoglobin,Total,AC 9.8 L LAB HCTB 36.0-46.0 % Hematocrit, ACL Low 30 LAB IC 1.08-1.30 mmol/L Calcium, Ion, WB 1.29 LAB GLB 60-105 mg/dL Glucose,Whole Bld High 133 LAB LACT 0.5-2.2 mmol/L Lactate 2.1 Performed By: #### ALLBG #### [facility] [address] [place], [place] [address] GASA + ALL Collected: 07/31/2018 Status: F Source: [place] FOR 6:24 AM [facility] USE ONLY REPOSITORY TYPE CODE TESTS RESULT OUT OF REFERENCE UNITS RANGE LAB PH 7.35-7.45 pH 7.35 LAB PCO2 34-46 mm Hg pCO2 39 LAB PO2 85-95 mm Hg pO2 High 119 LAB BE mmol/L Base Excess NEG 4 LAB HCO3 22-26 mmol/L Bicarbonate Low 21 LAB CO2CT 22.0-28.0 mmol/L CO2 Content 22 LAB O2HB 95-98 % Oxyhemoglobin, Art. 96 LAB COHB 0-5.0 % Carboxyhemoglobin,A 1.2 rt LAB MHGB 0.4-1.5 % Methemoglobin 0.7 LAB TEMP C Temperature, Body 37.0 LAB PHTC 7.35-7.45 pH, Temp Corrected 7.35 LAB PCO2T 34-46 mm Hg pCO2, Temp Correct 39 LAB PO2T mm Hg pO2, Temp Corrected 119 LAB NAB 132-148 mmol/L Sodium,Whole Bld 138 LAB KWB 3.5-5.0 mmol/L Potassium, Whole Bld 4.5 LAB HGBB 11.5-15.5 g/dL Low Hemoglobin,Total,AC 9.6 L LAB HCTB 36.0-46.0 % Hematocrit, ACL Low 30 LAB IC 1.08-1.30 mmol/L Calcium, Ion, WB 1.18 LAB GLB 60-105 mg/dL Glucose,Whole Bld High 183 LAB LACT 0.5-2.2 mmol/L Lactate High 2.8 Performed By: #### ALLBG #### [facility] [address] [place], [place] [address] GASA + ALL Collected: 07/31/2018 Status: F Source: [place] FOR 3:42 AM [facility] RADIANCE USE ONLY REPOSITORY TYPE CODE TESTS RESULT OUT OF REFERENCE UNITS RANGE LAB PH 7.35-7.45 pH 7.41 LAB PCO2 34-46 mm Hg pCO2 35 LAB PO2 85-95 mm Hg pO2 High 123 LAB BE mmol/L Base Excess NEG 2 LAB HCO3 22-26 mmol/L Bicarbonate 22 LAB CO2CT 22.0-28.0 mmol/L CO2 Content 23 LAB O2HB 95-98 % Oxyhemoglobin, Art. 96 LAB COHB 0-5.0 % Carboxyhemoglobin,A 1.2 rt LAB MHGB 0.4-1.5 % Methemoglobin 1.0 LAB TEMP C Temperature, Body 37.0 LAB PHTC 7.35-7.45 pH, Temp Corrected 7.41 LAB PCO2T 34-46 mm Hg pCO2, Temp Correct 35 LAB PO2T mm Hg pO2, Temp Corrected 123 LAB NAB 132-148 mmol/L Sodium,Whole Bld 139 LAB KWB 3.5-5.0 mmol/L Potassium, Whole High Bld 5.5 LAB HGBB 11.5-15.5 g/dL Low Hemoglobin,Total,AC 10.2 L LAB HCTB 36.0-46.0 % Hematocrit, ACL Low 32 LAB IC 1.08-1.30 mmol/L Calcium, Ion, WB 1.16 LAB GLB 60-105 mg/dL Glucose,Whole Bld High 134 LAB LACT 0.5-2.2 mmol/L Lactate 1.4 Performed By: #### ALLBG #### [facility] [address] [place], [place] [address] XR CHEST 1V FRONTAL Observed: 07/31/2018 Status: F Source: [place] PORT 1:45 AM [facility] REPOSITORY * * *Final Report* * * DATE OF EXAM: Jul 31 2018 1:45AM JIX [id number] - XR CHEST 1V FRONTAL PORT / PROCEDURE REASON: Evaluate tube, line or lead position * * * * Physician Interpretation * * * * EXAMINATION: CHEST RADIOGRAPH (PORTABLE SINGLE VIEW AP) Exam Date/Time: 07/31/2018 1:45 AM Clinical History: Evaluate tube, line or lead position, MQ: [id number] Comparison: 1 day prior RESULT: See impression. IMPRESSION: Lines, tubes, and devices: Removal of ET tube and NG tube. Lungs and pleura: Increase of basilar atelectatic changes. Superimposed infiltrates/infection or edema cannot be entirely excluded. Underlying small layering pleural effusions are not excluded. Cardiomediastinal silhouette: Stable cardiomediastinal silhouette. Other: Median sternotomy Medical Billing Specialist: [facility] Transcribe Date/Time: Jul 31 2018 10:39A Dictated by : FRIEDA DOMINGO MD This examination was interpreted and the report reviewed and electronically signed by: FRIEDA DOMINGO MD on Jul 31 2018 10:40AM EST [id number] GASA + ALL Collected: 07/31/2018 Status: F Source: [facility] 12:18 AM [facility] RADIANCE USE ONLY REPOSITORY TYPE CODE TESTS RESULT OUT OF REFERENCE UNITS RANGE LAB PH 7.35-7.45 pH 7.42 LAB PCO2 34-46 mm Hg pCO2 35 LAB PO2 85-95 mm Hg pO2 Low 72 LAB BE mmol/L Base Excess NEG 1 LAB HCO3 22-26 mmol/L Bicarbonate 22 LAB CO2CT 22.0-28.0 mmol/L CO2 Content 24 LAB O2HB 95-98 % Oxyhemoglobin, Low Art. 93 LAB COHB 0-5.0 % Carboxyhemoglobin,A 1.7 rt LAB MHGB 0.4-1.5 % Methemoglobin 0.8 LAB TEMP C Temperature, Body 37.0 LAB PHTC 7.35-7.45 pH, Temp Corrected 7.42 LAB PCO2T 34-46 mm Hg pCO2, Temp Correct 35 LAB PO2T mm Hg pO2, Temp Corrected 72 LAB NAB 132-148 mmol/L Sodium,Whole Bld 139 LAB KWB 3.5-5.0 mmol/L Potassium, Whole Bld 4.4 LAB HGBB 11.5-15.5 g/dL Low Hemoglobin,Total,AC 9.8 L LAB HCTB 36.0-46.0 % Hematocrit, ACL Low 30 LAB IC 1.08-1.30 mmol/L Calcium, Ion, WB 1.13 LAB GLB 60-105 mg/dL Glucose,Whole Bld High 109 LAB LACT 0.5-2.2 mmol/L Lactate High 3.1 Performed By: #### ALLBG #### [facility] [address] [place] [address] TYPE AND SCREEN Collected: 07/31/2018 Status: F Source: [place] 12:14 AM [facility] REPOSITORY TYPE CODE TESTS RESULT OUT OF REFERENCE UNITS RANGE LAB %ABR A ABO/RH(D) POSITIVE LAB % Antibody NEG Screen Performed By: #### TSCR #### [facility] [address] [place] [address] CBC Collected: 07/31/2018 Status: F Source: [place] 12:02 AM [facility] REPOSITORY TYPE CODE TESTS RESULT OUT OF REFERENCE UNITS RANGE LAB WBC 3.70-11.00 k/uL WBC High 18.27 LAB RBC 3.90-5.20 m/uL RBC 4.02 LAB HGB 11.5-15.5 g/dL Low Hemoglobin 10.0 LAB HCT 36.0-46.0 % Low Hematocrit 32.0 LAB MCV 80.0-100.0 fL Low MCV 79.6 LAB MCH 26.0-34.0 pG Low MCH 24.9 LAB MCHC 30.5-36.0 g/dL MCHC 31.3 LAB RDWCV 11.5-15.0 % RDW-CV High 15.8 LAB PLTCT 150-400 k/uL Platelet Count 229 LAB MPV 9.0-12.7 fL MPV 10.4 LAB ABSNUC <0.01 k/uL Absolute nRBC <0.01 Performed By: #### CBC, CMP, JACKSON #### [facility] [address] [place], [place] [address] COMP METABOLIC PANEL Collected: 07/31/2018 Status: F Source: [place] 12:02 AM [facility] [place] REPOSITORY TYPE CODE TESTS RESULT OUT OF REFERENCE UNITS RANGE LAB TP 6.3-8.0 g/dL Low Protein, Total 5.3 LAB ALB 3.9-4.9 g/dL Low Albumin 3.0 LAB CA 8.5-10.2 mg/dL Calcium, Total 8.6 LAB TBIL 0.2-1.3 mg/dL Bilirubin, Total 0.4 LAB ALKP 34-123 U/L Alkaline Phosphatase 65 LAB AST 13-35 U/L AST High 51 LAB GLU 74-99 mg/dL Glucose High 113 Result Comment: The [place] [employer] (ADA) provides guidance for cutoff values for fasting glucose and random glucose. The ADA defines fasting as no caloric intake for at least 8 hours. Fas ting plasma glucose results between 100 to 125 mg/dL indicate increased risk for diabetes (prediabetes). Fasting plasma glucose results greater than or equal to 126 mg/dL meet the criteria for diagnosis of diabetes. In the absence of unequivocal hyperglycemia, results should be confirmed by repeat testing. In a patient with classic symptoms of hyperglycemia or hyperglycemic crisis, random plasma glucose results greater than or equal to 200 mg/dL meet the criteria for diagnosis of diabetes. Reference: Standards of Medical Care in Diabetes 2016, [place] [employer]. Diabetes Care. 2016.39(Suppl 1). LAB BUN 7-21 mg/dL BUN 20 LAB CRET 0.58-0.96 mg/dL Creatinine High 1.22 LAB NA 136-144 mmol/L Sodium 143 LAB K 3.7-5.1 mmol/L Potassium 4.9 LAB CL 97-105 mmol/L Chloride High 108 LAB CO2 22-30 mmol/L Low CO2 21 LAB AGAP 9-18 mmol/L Anion Gap 14 LAB ALT 7-38 U/L ALT 20 LAB GFRAA eGFR- Amer. 51 LAB GFRNAA . eGFR-All Other Races 43 Result Comment: eGFR (Estimated GFR) Units of measure: mL/min/1.73 meters squared eGFR is derived from the reexpressed MDRD Study equation using the following parameters: serum creatinine, age, gender and race. The creatinine assay has been calibrated to be traceable to IDMS. An eGFR <60 mL/min/1.73m2 for >3 months is consistent with chronic kidney disease. Refer to KDOQI guidelines for clinical interpretation. In patients with unstable renal function, e.g. those with acute kidney injury, the eGFR may not accurately reflect actual GFR. Performed By: #### CBC, CMP, JACKSON #### [facility] [address], [place] [address] TROPONIN T Collected: 07/31/2018 Status: F Source: [place] 12:02 AM [facility] REPOSITORY TYPE CODE TESTS RESULT OUT OF REFERENCE UNITS RANGE LAB TROPT 0.000-0.029 ng/mL High Troponin T 0.904 Result Comment: Called to and read back by: Simi Fairchild RN [id number] 07/31/2018 0210 by James Dey. Performed By: #### CBC, CMP, JACKSON #### [facility] [address] [place], [place] [address] GASA + ALL Collected: 07/30/2018 Status: F Source: [place] FOR 10:23 PM [facility] RADIANCE USE ONLY REPOSITORY TYPE CODE TESTS RESULT OUT OF REFERENCE UNITS RANGE LAB PH 7.35-7.45 pH 7.38 LAB PCO2 34-46 mm Hg pCO2 38 LAB PO2 85-95 mm Hg pO2 Low 84 LAB BE mmol/L Base Excess NEG 3 LAB HCO3 22-26 mmol/L Bicarbonate 22 LAB CO2CT 22.0-28.0 mmol/L CO2 Content 23 LAB O2HB 95-98 % Oxyhemoglobin, Low Art. 94 LAB COHB 0-5.0 % Carboxyhemoglobin,A 1.6 rt LAB MHGB 0.4-1.5 % Methemoglobin 0.4 LAB TEMP C Temperature, Body 37.0 LAB PHTC 7.35-7.45 pH, Temp Corrected 7.38 LAB PCO2T 34-46 mm Hg pCO2, Temp Correct 38 LAB PO2T mm Hg pO2, Temp Corrected 84 LAB NAB 132-148 mmol/L Sodium,Whole Bld 139 LAB KWB 3.5-5.0 mmol/L Potassium, Whole Bld 4.3 LAB HGBB 11.5-15.5 g/dL Low Hemoglobin,Total,AC 9.3 L LAB HCTB 36.0-46.0 % Hematocrit, ACL Low 29 LAB IC 1.08-1.30 mmol/L Calcium, Ion, WB 1.15 LAB GLB 60-105 mg/dL Glucose,Whole Bld High 178 LAB LACT 0.5-2.2 mmol/L Lactate High 4.5 Performed By: #### ALLBG #### [facility] [address] [place], [place] [address] GASA + ALL Collected: 07/30/2018 Status: F Source: [place] FOR 8:37 PM [facility] RADIANCE USE ONLY REPOSITORY TYPE CODE TESTS RESULT OUT OF REFERENCE UNITS RANGE LAB PH 7.35-7.45 pH 7.43 LAB PCO2 34-46 mm Hg pCO2 35 LAB PO2 85-95 mm Hg pO2 125 High LAB BE mmol/L Base Excess NEG 1 LAB HCO3 22-26 mmol/L Bicarbonate 22 LAB CO2CT 22.0-28.0 mmol/L CO2 Content 23 LAB O2HB 95-98 % 97 Oxyhemoglobin, Art. LAB COHB 0-5.0 % 1.6 Carboxyhemoglobin ,Art LAB MHGB 0.4-1.5 % 0.7 Methemoglobin LAB TEMP C 37.0 Temperature, Body LAB PHTC 7.35-7.45 pH, Temp 7.43 Corrected LAB PCO2T 34-46 mm Hg pCO2, Temp 35 Correct LAB PO2T mm Hg pO2, Temp 125 Corrected LAB NAB 132-148 mmol/L 136 Sodium,Whole Bld LAB KWB 3.5-5.0 mmol/L Potassium, 4.9 Whole Bld LAB HGBB 11.5-15.5 g/dL 10.3 Low Hemoglobin,Total, ACL LAB HCTB 36.0-46.0 % Hematocrit, 32 Low ACL LAB IC 1.08-1.30 mmol/L Calcium, 1.15 Ion, WB LAB GLB 60-105 mg/dL 231 High Glucose,Whole Bld LAB LACT 0.5-2.2 mmol/L Lactate 3.1 High LAB ABGCOM Blood Gas O2 Comm, Art Administration Result Comment: BIPAPP 40% Performed By: #### ALLBG #### [facility] [address], [place] [address] STAPH AUREUS PCR Collected: 07/30/2018 Status: F Source: [place] 8:05 PM [facility] REPOSITORY TYPE CODE TESTS RESULT OUT OF RANGE REFERENCE UNITS LAB [facility] Nasal S aureus Spec Source LAB MRSRES Negative for MRSA MRSA by PCR. PCR LAB SARES Positive for Abnormal Staph Staphylococcus Alert aureus PCR aureus by PCR. Performed By: #### SAPCR #### [facility] [address], [place] [address] GASA + ALL Collected: 07/30/2018 Status: F Source: [place] FOR 6:06 PM [facility] RADIANCE USE ONLY REPOSITORY TYPE CODE TESTS RESULT OUT OF REFERENCE UNITS RANGE LAB PH 7.35-7.45 pH 7.36 LAB PCO2 34-46 mm Hg pCO2 43 LAB PO2 85-95 mm Hg pO2 Low 68 LAB BE mmol/L Base Excess NEG 1 LAB HCO3 22-26 mmol/L Bicarbonate 24 LAB CO2CT 22.0-28.0 mmol/L CO2 Content 25 LAB O2HB 95-98 % Oxyhemoglobin, Low Art. 90 LAB COHB 0-5.0 % Carboxyhemoglobin,A 1.6 rt LAB MHGB 0.4-1.5 % Methemoglobin 0.5 LAB TEMP C Temperature, Body 37.0 LAB PHTC 7.35-7.45 pH, Temp Corrected 7.36 LAB PCO2T 34-46 mm Hg pCO2, Temp Correct 43 LAB PO2T mm Hg pO2, Temp Corrected 68 LAB NAB 132-148 mmol/L Sodium,Whole Bld 139 LAB KWB 3.5-5.0 mmol/L Potassium, Whole Bld 4.0 LAB HGBB 11.5-15.5 g/dL Low Hemoglobin,Total,AC 9.8 L LAB HCTB 36.0-46.0 % Hematocrit, ACL Low 30 LAB IC 1.08-1.30 mmol/L Calcium, Ion, WB 1.24 LAB GLB 60-105 mg/dL Glucose,Whole Bld High 144 LAB LACT 0.5-2.2 mmol/L Lactate High 2.4 Performed By: #### ALLBG #### [facility] [address] [place], [place] [address] GASA + ALL Collected: 07/30/2018 Status: F Source: [place] FOR 5:04 PM [facility] REPOSITORY TYPE CODE TESTS RESULT OUT OF REFERENCE UNITS RANGE LAB PH 7.35-7.45 pH 7.36 LAB PCO2 34-46 mm Hg pCO2 44 LAB PO2 85-95 mm Hg pO2 Low 83 LAB BE mmol/L Base Excess NEG 1 LAB HCO3 22-26 mmol/L Bicarbonate 24 LAB CO2CT 22.0-28.0 mmol/L CO2 Content 26 LAB O2HB 95-98 % Oxyhemoglobin, Art. 95 LAB COHB 0-5.0 % Carboxyhemoglobin,A 1.2 rt LAB MHGB 0.4-1.5 % Methemoglobin Low 0.2 LAB TEMP C Temperature, Body 37.0 LAB PHTC 7.35-7.45 pH, Temp Corrected 7.36 LAB PCO2T 34-46 mm Hg pCO2, Temp Correct 44 LAB PO2T mm Hg pO2, Temp Corrected 83 LAB NAB 132-148 mmol/L Sodium,Whole Bld 140 LAB KWB 3.5-5.0 mmol/L Potassium, Whole Bld 3.7 LAB HGBB 11.5-15.5 g/dL Low Hemoglobin,Total,AC 9.7 L LAB HCTB 36.0-46.0 % Hematocrit, ACL Low 30 LAB IC 1.08-1.30 mmol/L Calcium, Ion, WB 1.24 LAB GLB 60-105 mg/dL Glucose,Whole Bld High 106 LAB LACT 0.5-2.2 mmol/L Lactate High 2.8 Performed By: #### ALLBG #### [facility] [address] [place], [place] [address] GASA + ALL Collected: 07/30/2018 Status: F Source: [place] FOR 3:30 PM [facility] USE ONLY REPOSITORY TYPE CODE TESTS RESULT OUT OF REFERENCE UNITS RANGE LAB PH 7.35-7.45 pH 7.37 LAB PCO2 34-46 mm Hg pCO2 44 LAB PO2 85-95 mm Hg pO2 87 LAB BE mmol/L Base Excess 0 LAB HCO3 22-26 mmol/L Bicarbonate 25 LAB CO2CT 22.0-28.0 mmol/L CO2 Content 26 LAB O2HB 95-98 % Oxyhemoglobin, Art. 96 LAB COHB 0-5.0 % Carboxyhemoglobin,A 1.3 rt LAB MHGB 0.4-1.5 % Methemoglobin Low 0.1 LAB TEMP C Temperature, Body 37.0 LAB PHTC 7.35-7.45 pH, Temp Corrected 7.37 LAB PCO2T 34-46 mm Hg pCO2, Temp Correct 44 LAB PO2T mm Hg pO2, Temp Corrected 87 LAB NAB 132-148 mmol/L Sodium,Whole Bld 138 LAB KWB 3.5-5.0 mmol/L Potassium, Whole Bld 3.5 LAB HGBB 11.5-15.5 g/dL Low Hemoglobin,Total,AC 9.9 L LAB HCTB 36.0-46.0 % Hematocrit, ACL Low 31 LAB IC 1.08-1.30 mmol/L Calcium, Ion, WB 1.25 LAB GLB 60-105 mg/dL Glucose,Whole Bld High 134 LAB LACT 0.5-2.2 mmol/L Lactate High 2.4 Performed By: #### ALLBG #### [facility] [address] [place], [place] [address] ANES POST Observed: 07/30/2018 Status: COMPLETED Source: [place] 3:13 PM [facility] REPOSITORY HNO ID: [id number] Author: Brian Gardner Service: Anesthesiology Author Type: Anesthesiologist Type: Anesthesia PostOp Filed: 07/30/2018 3:13 PM Note Text: POST ANESTHESIA EVALUATION NOTE SERVICE DATE: 07/30/2018 SERVICE TIME: 3:13 PM : 1940 Vitals: 07/30/18 0606 Temp: 36.3 ?C (97.3 ?F) 07/30/18 0607 07/30/18 1410 07/30/18 1430 07/30/18 1450 Arterial BP 1: 124/48 163/55 151/65 BP: 114/66 07/30/18 1410 07/30/18 1430 07/30/18 1443 07/30/18 1450 Pulse: (!) 47 (!) 47 (!) 44 (!) 49 07/30/18 1410 07/30/18 1430 07/30/18 1443 07/30/18 1450 Resp: 14 17 18 18 07/30/18 1410 07/30/18 1430 07/30/18 1443 07/30/18 1450 SpO2: 98% 97% 98% 97% Validated Vital Signs: Yes POST ANES STATUS: PACU/ICU Patient Condition: Guarded Neurological Status: On intravenous sedation. Pulmonary Status: On invasive mechanical ventilation. Airway Control: Returned to baseline unsupported. Cardiovascular Status: Guarded Pain: Adequately controlled Postoperative Nausea/Vomiting: No significant post operative nausea or vomiting Postoperative Hydration Status: Adequate. Intra-Operative Events: No Significant Anesthesia Events Anesthetic Complications: None Recommendation: Continue current plan of care Other Remarks: SIGNATURE: Brian Gardner MD PATIENT NAME: Priscilla Sharpe DATE: July 30, 2018 TIME: 3:13 PM PAGER/CONTACT #: [phone] XR CHEST 1V FRONTAL Observed: 07/30/2018 Status: F Source: [facility] 2:36 PM [facility] REPOSITORY * * *Final Report* * * DATE OF EXAM: Jul 30 2018 2:36PM HUSEYIN [id number] - XR CHEST 1V FRONTAL PORT / PROCEDURE REASON: Evaluate tube, line or lead position * * * * Physician Interpretation * * * * EXAMINATION: CHEST RADIOGRAPH (PORTABLE SINGLE VIEW AP) Exam Date/Time: 07/30/2018 2:36 PM Clinical History: Evaluate tube, line or lead position, MQ: [id number] Comparison: 1 day prior RESULT: See impression. IMPRESSION: Lines, tubes, and devices: The patient has had median sternotomy in the interim between the 2 exams. Support devices are unremarkable. Lungs and pleura: Increase of basilar atelectatic changes. Superimposed infiltrates/infection or edema cannot be entirely excluded. Cardiomediastinal silhouette: Stable cardiomediastinal silhouette. Other: . Medical Billing Specialist: PSCB Transcribe Date/Time: Jul 30 2018 3:00P Dictated by : FRIEDA DOMINGO MD This examination was interpreted and the report reviewed and electronically signed by: FRIEDA DOMINGO MD on Jul 30 2018 3:01PM EST [id number] Observed: 07/30/2018 Status: COMPLETED Source: [place] 2:29 PM [facility] REPOSITORY HNO ID: [id number] Author: Alexa Watson Service: Critical Care Author Type: Nurse Practitioner Type: Progress Notes Filed: 07/30/2018 2:35 PM Note Text: [facility] Admission Note Name: Priscilla Sharpe Principal Diagnosis: <principal problem not specified> Indication for Surgery: hypertrophic obstructive cardiomyopathy and mitral insufficiency Preop LVEF: Normal RVF: Normal Postop LVEF: Normal RVF: Mild Important/Relevant PMH/PSH: 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, hypertrophic cardiomyopathy, PAF (cardioversion 05/18, 10/18),moderate pulmonary hypertension, HTN, CAD, dyslipidemia, mitral insufficiency, Long QT syndrome, 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+ pack years (quit 2012), small cell lymphoma s/p chemotherapy, IBS Preoperative Hospital Course (narrative or log of major events): Airway Difficulty: Grade I - easy Pacing wires: Yes: Ventricular: When discontinuing pacing wires: Pull all pacing wires Chronological list of Surgeries and Major Events (diagnosis): (Surgeries in bold characters) 07/30/2018: Primary Sternotomy; Septal Myectomy (6g); MVr (P2 Triangular resection, 33 Rm band), bilateral pulmonary vein isolation, clipping of the left atrial appendage - 2 pump runs d/t hypokenetic RV__ A/P of Major Active Problems (excluding routine care and common problems): Cardiac insuffiencey requiring epi, titrate for UO AND monitor CVP Bradycardic- Afib 45-40bpm To do or to watch: F/u Coags WTE Discharge Planning: Anticipated Discharge Date: Unknown Unknown Care Management Discharge Needs: @FLOWREFRESH([id number]) Additional Hospital Problems Problem Hocm (Hypertrophic Obstructive Cardiomyopathy) (Formerly [facility]) S/p Septal Myectomy (6g) A/p ASA Afib (Formerly [facility]) Home med: Warfarin, Atenolol S/p bilateral pulmonary vein isolation with multiple upper occasions of the AtriCure radiofrequency clamp and clipping of the left atrial appendage with a 50 mm AtriCure clip A/p Bradycardic- Afib 45-40bpm Mr (Mitral Regurgitation) S/p MVr (P2 Triangular resection, 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) A/p ASA On Mechanically Assisted Ventilation (Formerly [facility]) Grade 1 Airway A/p WTE Cardiac Insufficiency (Formerly [facility]) A/p Cardiac insuffiencey requiring epi, titrate for UO AND monitor CVP Postoperative Pain A/p IV push fentanyl until able to use CNA PCT, scheduled lidoderm patches and tyenol, prn oxycodone after extubation Stress Hyperglycemia A/p Perioperative insulin resistance and exacerbation of hyperglycemia, initiate RHI infusion if needed to maintain BG <180 Hypovolemia A/p IVF resuscitation as needed Long Q-T Syndrome Infusions: Epinephrine Propofol CVICU Admission ECG: Reviewed; Afib with slow ventricular response, LBBB CVICU Admission CXR: Reviewed Neuro: Sedation . Cardiovascular: Rhythm: atrial fibrillation MAP: 93 mmHg Pacemaker : None and Temporary Epicardial - Pacing Mode: OFF ICD: No Peripheral pulses present: All present Pulmonary: Clear to auscultation and Breath sounds equal Ventilator: Intubated Potential prolonged intubation : No Abdominal: Soft and Non-tender Continued need for urinary catheter: Yes - clinical indication: Patient post major surgery requiring fluid balance and input and output measurement. DAY OF SURGERY PLAN: Standard Protocol, intubated patient: Cardiovascular monitoring, stabilization of blood pressure and cardiac function, wean to extubate when ready per protocol. Pain control, glycemic control, DVT prophylaxis, antibiotic prophylaxis. SIGNATURE: Alexa Watson CNP DATE of SERVICE: 07/30/2018 TIME of SERVICE: 2:30 PM GASA + ALL Collected: 07/30/2018 Status: F Source: [place] FOR 2:21 PM [facility] USE ONLY REPOSITORY TYPE CODE TESTS RESULT OUT OF REFERENCE UNITS RANGE LAB PH 7.35-7.45 pH Low 7.31 LAB PCO2 34-46 mm Hg pCO2 High 58 LAB PO2 85-95 mm Hg pO2 High 96 LAB BE mmol/L Base Excess 1 LAB HCO3 22-26 mmol/L Bicarbonate High 28 LAB CO2CT 22.0-28.0 mmol/L CO2 Content High 30 LAB O2HB 95-98 % Oxyhemoglobin, Low Art. 94 LAB COHB 0-5.0 % Carboxyhemoglobin,A 1.3 rt LAB MHGB 0.4-1.5 % Methemoglobin 1.3 LAB TEMP C Temperature, Body 37.0 LAB PHTC 7.35-7.45 pH, Temp Low Corrected 7.31 LAB PCO2T 34-46 mm Hg pCO2, Temp High Correct 58 LAB PO2T mm Hg pO2, Temp Corrected 96 LAB NAB 132-148 mmol/L Sodium,Whole Bld 137 LAB KWB 3.5-5.0 mmol/L Potassium, Whole Bld 3.6 LAB HGBB 11.5-15.5 g/dL Low Hemoglobin,Total,AC 10.0 L LAB HCTB 36.0-46.0 % Hematocrit, ACL Low 31 LAB IC 1.08-1.30 mmol/L Calcium, Ion, WB High 1.33 LAB GLB 60-105 mg/dL Glucose,Whole Bld High 166 LAB LACT 0.5-2.2 mmol/L Lactate High 2.8 Performed By: #### ALLBG #### [facility] [address] [place] [id number] CBC Collected: 07/30/2018 Status: F Source: [place] 2:15 PM [facility] REPOSITORY TYPE CODE TESTS RESULT OUT OF REFERENCE UNITS RANGE LAB WBC 3.70-11.00 k/uL WBC High 19.98 LAB RBC 3.90-5.20 m/uL Low RBC 3.81 LAB HGB 11.5-15.5 g/dL Low Hemoglobin 9.6 LAB HCT 36.0-46.0 % Low Hematocrit 30.5 LAB MCV 80.0-100.0 fL MCV 80.1 LAB MCH 26.0-34.0 pG Low MCH 25.2 LAB MCHC 30.5-36.0 g/dL MCHC 31.5 LAB RDWCV 11.5-15.0 % RDW-CV High 15.8 LAB PLTCT 150-400 k/uL Platelet Count 210 LAB MPV 9.0-12.7 fL MPV 9.4 LAB ABSNUC <0.01 k/uL Absolute nRBC <0.01 Performed By: #### CBC, FIBCT, PT, PTT, CMP, MG1, PHOS #### [facility] [address] [place], [place] [address] FIBRINOGEN Collected: 07/30/2018 Status: F Source: [place] 2:15 PM [facility] REPOSITORY TYPE CODE TESTS RESULT OUT OF REFERENCE UNITS RANGE LAB FIBCT 200-400 mg/dL Fibrinogen 267 Performed By: #### CBC, FIBCT, PT, PTT, CMP, MG1, PHOS #### [facility] [address] [place], [place] [address] PROTIME Collected: 07/30/2018 Status: F Source: [place] 2:15 PM [facility] REPOSITORY TYPE CODE TESTS RESULT OUT OF RANGE REFERENCE UNITS LAB PSEC 9.7-13.0 sec PT Sec 13.0 LAB INR 0.9-1.3 PT INR 1.3 Result Comment: Vitamin K Antagonist (VKA) Therapeutic Range: INR 2 to 3 (Target INR of 2.5) Note: For patients treated with VKA drugs, such as warfarin, the [place] [employer] 2012 Guideline recommends a therapeutic INR range of 2 to 3 (target INR of 2.5). This recommendation includes high-risk patients with antiphospholipid syndrome with previous arterial or venous thromboembolism, current-generation mechanical or bioprosthetic aortic heart valve replacement. Note: Patients with mechanical aortic valve replacement and additional risk factors for thromboembolic events (atrial fibrillation, previous thromboembolism, LV dysfunction, hypercoagulable conditions) or an older generation mechanical AVR (i.e., ball in-Cage) or any mechanical MVR should have a INR therapeutic range of 2.5 to 3.5 (target INR of 3). Toni ROBISON, et al. Chest 2012, 141:7S-47S Lilli RA, et al. JACC 2017, 70: 252-289 Performed By: #### CBC, FIBCT, PT, PTT, CMP, MG1, PHOS #### [facility] [address], [place] [id number] APTT Collected: 07/30/2018 Status: F Source: [place] 2:15 PM [facility] REPOSITORY TYPE CODE TESTS RESULT OUT OF RANGE REFERENCE UNITS LAB APTT 23.0-32.4 sec High APTT 38.8 Result Comment: Unfractionated Heparin Therapeutic Ranges: Standard Heparin Nomogram: 53 to 78 seconds (anti-Xa level of 0.3 to 0.7 U/ml) Low Dose/ACS Nomogram: 49 to 67 seconds (anti-Xa level of 0.2 to 0.5 U/ml) Stroke Treatment Nomogram: 49 to 67 seconds (anti-Xa level of 0.2 to 0.5 U/ml) Note: The APTT therapeutic range has been determined for the current lot of laboratory APTT reagent in use throughout the [facility]. Performed By: #### CBC, FIBCT, PT, PTT, CMP, MG1, PHOS #### [facility] [address] [place], [place] [address] COMP METABOLIC PANEL Collected: 07/30/2018 Status: F Source: [place] 2:15 PM [facility] REPOSITORY TYPE CODE TESTS RESULT OUT OF REFERENCE UNITS RANGE LAB TP 6.3-8.0 g/dL Low Protein, Total 4.8 LAB ALB 3.9-4.9 g/dL Low Albumin 2.7 LAB CA 8.5-10.2 mg/dL Low Calcium, Total 8.4 LAB TBIL 0.2-1.3 mg/dL Bilirubin, Total 0.6 LAB ALKP 34-123 U/L Alkaline Phosphatase 61 LAB AST 13-35 U/L AST High 45 Result Comment: Results may be falsely increased due to interference by hemolysis. Suggest reorder as clinically indicated. LAB GLU 74-99 mg/dL High Glucose 164 Result Comment: The [place] [employer] (ADA) provides guidance for cutoff values for fasting glucose and random glucose. The ADA defines fasting as no caloric intake for at least 8 hours. Fas ting plasma glucose results between 100 to 125 mg/dL indicate increased risk for diabetes (prediabetes). Fasting plasma glucose results greater than or equal to 126 mg/dL meet the criteria for diagnosis of diabetes. In the absence of unequivocal hyperglycemia, results should be confirmed by repeat testing. In a patient with classic symptoms of hyperglycemia or hyperglycemic crisis, random plasma glucose results greater than or equal to 200 mg/dL meet the criteria for diagnosis of diabetes. Reference: Standards of Medical Care in Diabetes 2016, [place] [employer] Association. Diabetes Care. 2016.39(Suppl 1). LAB BUN 7-21 mg/dL BUN 21 LAB CRET 0.58-0.96 mg/dL Creatinine High 1.10 LAB NA 136-144 mmol/L Sodium 139 LAB K 3.7-5.1 mmol/L Potassium 3.7 LAB CL 97-105 mmol/L Chloride 104 LAB CO2 22-30 mmol/L CO2 25 LAB AGAP 9-18 mmol/L Anion Gap 10 LAB ALT 7-38 U/L ALT 19 LAB GFRAA eGFR- Amer. 58 LAB GFRNAA . eGFR-All Other Races 48 Result Comment: eGFR (Estimated GFR) Units of measure: mL/min/1.73 meters squared eGFR is derived from the reexpressed MDRD Study equation using the following parameters: serum creatinine, age, gender and race. The creatinine assay has been calibrated to be traceable to IDMS. An eGFR <60 mL/min/1.73m2 for >3 months is consistent with chronic kidney disease. Refer to KDOQI guidelines for clinical interpretation. In patients with unstable renal function, e.g. those with acute kidney injury, the eGFR may not accurately reflect actual GFR. Performed By: #### CBC, FIBCT, PT, PTT, CMP, MG1, PHOS #### [facility] [address] [place] [address] MAGNESIUM Collected: 07/30/2018 Status: F Source: [place] 2:15 PM [facility] REPOSITORY TYPE CODE TESTS RESULT OUT OF REFERENCE UNITS RANGE LAB MG 1.7-2.3 mg/dL Magnesium 2.0 Performed By: #### CBC, FIBCT, PT, PTT, CMP, MG1, PHOS #### [facility] [address] [place], [place] [address] PHOSPHORUS Collected: 07/30/2018 Status: F Source: [place] 2:15 PM [facility] REPOSITORY TYPE CODE TESTS RESULT OUT OF REFERENCE UNITS RANGE LAB PHOS 2.7-4.8 mg/dL Low Phosphorus 2.5 Performed By: #### CBC, FIBCT, PT, PTT, CMP, MG1, PHOS #### [facility] [address] [place], [place] [address] ECG COMPLETE W Observed: 07/30/2018 Status: F Source: [place] INTERPRETATION 2:07 PM [facility] REPOSITORY NAME : PRISCILLA SHARPE PID : [id number] : 1940 Gender : Female Race : ORD : [id number] Procedure Date : Jul 30 2018 14:07:42 Edit Date : Aug 03 2018 12:54:57 Diagnosis:ATRIAL FIBRILLATION WITH SLOW VENTRICULAR RESPONSE COMPLETE LEFT BUNDLE BRANCH BLOCK ABNORMAL ECG Confirmed by MD SAMANTHA, PhD, ZAMZAM ([id number]) on 08/03/2018 12:54:49 PM Ventricular Rate : 55 BPM Atrial Rate : 28 BPM QRS Duration : 160 ms Q-T Interval : 672 ms QTC Calculation(Bezet) : 642 ms R Friendship : -29 degrees T Friendship : 128 degrees Test Reason : Location : 367 : [facility] J066- Overread By : MD SAMANTHA, PhD,ZAMZAM Edited By : MD SAMANTHA, PhD,ZAMZAM Referred By : , Acquired by : MK, OPERATIVE NO Observed: 07/30/2018 Status: COMPLETED Source: [place] 1:58 PM [facility] REPOSITORY HNO ID: [id number] Author: Jamie Jo Service: Cardiac Surgery Author Type: Physician Type: Operative Report Filed: 08/20/2018 5:20 PM Note Text: OPERATIVE REPORT DEPARTMENT OF THORACIC AND CARDIOVASCULAR SURGERY Priscilla Sharpe [id number] July 30, 2018 78 year old Surgeon(s) and Role: * Jamie Jo - Primary * Jose Timmons (Res) Luis - Resident - Assisting Registered Nurse Inside Sales Lead: Nan Pedroza (Rn) BHARATH Tyson ANESTHESIA: General endotracheal. 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 OPERATIVE INDICATIONS: Severe dynamic left ventricular outflow tract obstruction OPERATIVE FINDINGS: There was a very focal proximal area of septal hypertrophy. The septum measured 20 mm in thickness and was thick over about 20 mm be in a right underneath the aortic valve. There was a very myxomatous segment of the P3 scallop of the valve. OPERATIVE PROCEDURE: After appropriate monitoring lines had been inserted and general endotracheal anesthesia given, the patient was prepped and draped in the usual fashion. We performed the median sternotomy and then after systemic heparinization, we cannulated, went on bypass, cross-clamped, gave antegrade and retrograde cardioplegia, and opened the aorta. First we performed the PV isolation with multiple application of the AtriCure radiofrequency clamp on the right and left side with clipping of the left atrial appendage with a 50 mm AtriCure clip. An extensive septal myectomy was performed removing 6 gms of septal muscle. The mitral valve was then examined and the following repair techniques were performed. We excised the P3 scallop of the mitral valve and then reapproximated the medial remnant to the l medial remnant of the P2 scallop. We then placed a 33 3 and band. The left atriotomy was closed We then irrigated, closed the aortotomy, carefully de-aired, and came off bypass. Echo showed no resting or provocable outflow tract obstruction and no mitral regurgitation.. We removed the cannulas and oversewed the cannulation sites. Once we were satisfied with the hemodynamics and hemostasis, closure was commenced in usual fashion. The patient was transported to the Intensive Care Unit in stable condition. ATTESTATION: I was present for the majority of the procedure except for sternotomy, cannulation and sternotomy closure which was performed by the team listed above. I or one of my colleagues was immediately available during this time. INCISION: 7:56 AM CLOSURE: 1:20 PM ESTIMATED BLOOD LOSS: 250 mL DRAINS: 2 mediastinal SPECIMENS: Specimen ID Type Site Comments Sent To 01- septal muscle Tissue Heart prepped by: FABY sent by: Pathology Fresh 02- mitral valve leaflet Tissue Heart prepped by: HANNA;MARINO sent by Pathology Fresh COUNTS: Sponge, instrument, and needle counts were correct x2. COMPLICATIONS: None Jamie Jo M.D. Patient Care Team: Alisia wynn PCP - General (Internal Medicine) Brandon Argueta (Cardiology) ROSS Whitaker ALL Collected: 07/30/2018 Status: F Source: [place] FOR 1:32 PM [facility] RADIANCE USE ONLY REPOSITORY TYPE CODE TESTS RESULT OUT OF REFERENCE UNITS RANGE LAB PH 7.35-7.45 pH Low 7.31 LAB PCO2 34-46 mm Hg pCO2 High 53 LAB PO2 85-95 mm Hg pO2 High 204 LAB BE mmol/L Base Excess NEG 1 LAB HCO3 22-26 mmol/L Bicarbonate 25 LAB CO2CT 22.0-28.0 mmol/L CO2 Content 27 LAB O2HB 95-98 % Oxyhemoglobin, Art. 98 LAB COHB 0-5.0 % Carboxyhemoglobin, 1.2 Art LAB MHGB 0.4-1.5 % Methemoglobin 0.6 LAB TEMP C Temperature, Body 37.0 LAB PHTC 7.35-7.45 pH, Temp Low Corrected 7.31 LAB PCO2T 34-46 mm Hg pCO2, Temp High Correct 53 LAB PO2T mm Hg pO2, Temp Corrected 204 LAB NAB 132-148 mmol/L Sodium,Whole Bld 135 LAB KWB 3.5-5.0 mmol/L Potassium, Low Whole Bld 2.9 LAB HGBB 11.5-15.5 g/dL Low Hemoglobin,Total,A 8.8 CL LAB HCTB 36.0-46.0 % Hematocrit, Low ACL 27 LAB IC 1.08-1.30 mmol/L Calcium, Ion, WB 1.29 LAB GLB 60-105 mg/dL Glucose,Whole High Bld 226 LAB LACT 0.5-2.2 mmol/L Lactate High 3.2 LAB ACBDTE Notify Date, Art [id number] LAB ACBTME Notify Time, Art 210291 Performed By: #### ALLBG #### [facility] [address] [place] [address] BRIEF OP NOT Observed: 07/30/2018 Status: COMPLETED Source: [place] 1:11 PM [facility] REPOSITORY HNO ID: [id number] Author: Jose Timmons (Res) Luis Service: Cardiac Surgery Author Type: Resident Type: Brief Op Note Filed: 07/30/2018 5:46 PM Note Text: CARDIOTHORACIC BRIEF OP NOTE LOG ID: [id number] SURGERY/PROCEDURE DATE: 07/30/2018 INCISION/PROCEDURE START TIME: 7:56 AM INCISION CLOSE/PROCEDURE END TIME: SURGEON(S) AND STAND UP COMEDIAN(S): Surgeon(s) and Role: * Jamie Jo - Primary * Jose Timmons (Res) Luis - Resident - Assisting Registered Nurse Inside Sales Lead: Nan Pedroza (Rn) BHARATH TysonBELT AND LINK ASSEMBLY SUPERVISOR AND ANESTHESIA: Procedure(s) and Anesthesia Type: * VENTRICULOMYOTOMY FOR IDEOPATHIC HYPERTROPHIC SUBAORTIC STENOSIS - General * VALVULOPLASTY MITRAL W/ RING AND BYPASS - General * INSERTION CARDIAC DEVICE FOR OCCLUSION OF LEFT ATRIAL APPENDAGE - General Details: Primary Sternotomy; Septal Myectomy (6g); MVr (P2 Triangular resection, 33 Rm band); PVI; LAAC (50 Gillinov Clip) ANESTHESIA: General BRIEF FINDINGS: HOCM. Mitral insufficiency due to P2 leaflet prolapse. PREOPERATIVE DIAGNOSIS: hypertrophic obstructive cardiomyopathy and mitral insufficiency POSTOPERATIVE DIAGNOSIS: hypertrophic obstructive cardiomyopathy and mitral insufficiency ESTIMATED BLOOD LOSS: 250 ml TUBES/DRAINS: Mediastinal Chest Tube x2 PACING WIRES: 2x V-wires May pull wires SPECIMENS: Specimen ID Type Site Comments Sent To 01- septal muscle Tissue Heart prepped by: HANNA;MARINO sent by: Pathology Fresh 02- mitral valve leaflet Tissue Heart prepped by: HANNA;MARINO sent by Pathology Fresh IMPLANTS: Implant Name Type Inv. Item Serial No. Recruiting Operations Consultant Lot No. LRB No. Used Action FELT THK1.65MM PTFE 4X.5IN CARDIOVASCULAR STERILE - [id number] Implant FELT THK1.65MM PTFE 4X.5IN CARDIOVASCULAR STERILE CR BARD INC PERIPHERAL VASCULAR [id number] N/A 1 Implanted BAND RM ANCORE 33MM ANNULOPLASTY CHORDAL GUIDE - [id number] Implant BAND RM ANCORE 33MM ANNULOPLASTY CHORDAL GUIDE [id number] [employer]TR[employer] CARD SURG PERFUSION N/A 1 Implanted COMPLICATIONS: None SIGNATURE: Jose Smith MD PATIENT NAME: Priscilla Sharpe DATE: July 30, 2018 TIME: 1:16 PM PAGER/CONTACT #: [phone] GASA + ALL Collected: 07/30/2018 Status: F Source: [place] FOR 12:53 PM [facility] USE ONLY REPOSITORY TYPE CODE TESTS RESULT OUT OF REFERENCE UNITS RANGE LAB PH 7.35-7.45 pH Low 7.31 LAB PCO2 34-46 mm Hg pCO2 High 52 LAB PO2 85-95 mm Hg pO2 High 222 LAB BE mmol/L Base Excess 0 LAB HCO3 22-26 mmol/L Bicarbonate 25 LAB CO2CT 22.0-28.0 mmol/L CO2 Content 27 LAB O2HB 95-98 % Oxyhemoglobin, Art. 98 LAB COHB 0-5.0 % Carboxyhemoglobin, 1.4 Art LAB MHGB 0.4-1.5 % Methemoglobin 0.6 LAB TEMP C Temperature, Body 37.0 LAB PHTC 7.35-7.45 pH, Temp Low Corrected 7.31 LAB PCO2T 34-46 mm Hg pCO2, Temp High Correct 52 LAB PO2T mm Hg pO2, Temp Corrected 222 LAB NAB 132-148 mmol/L Sodium,Whole Bld 133 LAB KWB 3.5-5.0 mmol/L Potassium, Low Whole Bld 3.3 LAB HGBB 11.5-15.5 g/dL Low Hemoglobin,Total,A 7.8 CL LAB HCTB 36.0-46.0 % Hematocrit, Low ACL 24 LAB IC 1.08-1.30 mmol/L Calcium, Ion, High WB 1.37 LAB GLB 60-105 mg/dL Glucose,Whole High Bld 250 LAB LACT 0.5-2.2 mmol/L Lactate High 3.6 LAB ACBDTE Notify Date, Art [id number] LAB ACBTME Notify Time, Art Performed By: #### ALLBG #### [facility] [address] [place] [address] GASA + ALL Collected: 07/30/2018 Status: F Source: [place] FOR 11:23 AM [facility] RADIANCE USE ONLY REPOSITORY TYPE CODE TESTS RESULT OUT OF REFERENCE UNITS RANGE LAB PH 7.35-7.45 pH 7.42 LAB PCO2 34-46 mm Hg pCO2 41 LAB PO2 85-95 mm Hg pO2 High 291 LAB BE mmol/L Base Excess 2 LAB HCO3 22-26 mmol/L Bicarbonate 26 LAB CO2CT 22.0-28.0 mmol/L CO2 Content 28 LAB O2HB 95-98 % Oxyhemoglobin, Art. 98 LAB COHB 0-5.0 % Carboxyhemoglobin,A 1.7 rt LAB MHGB 0.4-1.5 % Methemoglobin 0.7 LAB TEMP C Temperature, Body 37.0 LAB PHTC 7.35-7.45 pH, Temp Corrected 7.42 LAB PCO2T 34-46 mm Hg pCO2, Temp Correct 41 LAB PO2T mm Hg pO2, Temp Corrected 291 LAB NAB 132-148 mmol/L Sodium,Whole Bld 137 LAB KWB 3.5-5.0 mmol/L Potassium, Whole Bld 4.3 LAB HGBB 11.5-15.5 g/dL Low Hemoglobin,Total,AC 8.3 L LAB HCTB 36.0-46.0 % Hematocrit, ACL Low 26 LAB IC 1.08-1.30 mmol/L Calcium, Ion, WB Low 1.02 LAB GLB 60-105 mg/dL Glucose,Whole Bld High 224 LAB LACT 0.5-2.2 mmol/L Lactate High 2.5 Performed By: #### ALLBG #### [facility] [address] [place] [address] GASV + ALL Collected: 07/30/2018 Status: F Source: [place] 11:16 AM [facility] REPOSITORY TYPE CODE TESTS RESULT OUT OF REFERENCE UNITS RANGE LAB VPH 7.32-7.42 pH 7.39 LAB VPC2 42-55 mm Hg pCO2 52 LAB VPO2 35-45 mm Hg pO2 High 79 LAB VBE mmol/L Base Excess 5 LAB VHC3 24-28 mmol/L Bicarbonate High 30 LAB VC2C 25-29 mmol/L CO2 Content High 32 LAB O2HBCX 60-85 % Oxyhemoglobin, High Bear. 94 LAB CO <2.0 % Carboxyhemoglobin,V 1.1 en LAB METHB 0.4-1.5 % Methemoglobin Low 0.3 LAB VTMP C Temperature, Body 37.0 LAB VPHTC 7.32-7.42 pH, Temp Corrected 7.39 LAB VPC2T mm Hg pCO2, Temp Correct 52 LAB VPO2T mm Hg pO2, Temp Corrected 79 LAB NAB 132-148 mmol/L Sodium,Whole Bld 140 LAB KWB 3.5-5.0 mmol/L Potassium, Whole Bld 4.1 LAB HGBB 11.5-15.5 g/dL Low Hemoglobin,Total,AC 8.4 L LAB HCTB 36.0-46.0 % Hematocrit, ACL Low 26 LAB IC 1.08-1.30 mmol/L Calcium, Ion, WB Low 1.06 LAB GLB 60-105 mg/dL Glucose,Whole Bld High 219 LAB LACT 0.5-2.2 mmol/L Lactate High 2.5 Performed By: #### VALLBG #### [facility] [address] [place], [place] [address] GASA + ALL Collected: 07/30/2018 Status: F Source: [place] FOR 10:30 AM [facility] USE ONLY REPOSITORY TYPE CODE TESTS RESULT OUT OF REFERENCE UNITS RANGE LAB PH 7.35-7.45 pH Low 7.32 LAB PCO2 34-46 mm Hg pCO2 High 52 LAB PO2 85-95 mm Hg pO2 High 169 LAB BE mmol/L Base Excess 0 LAB HCO3 22-26 mmol/L Bicarbonate 26 LAB CO2CT 22.0-28.0 mmol/L CO2 Content 28 LAB O2HB 95-98 % Oxyhemoglobin, Art. 98 LAB COHB 0-5.0 % Carboxyhemoglobin, 1.2 Art LAB MHGB 0.4-1.5 % Methemoglobin Low 0.2 LAB TEMP C Temperature, Body 37.0 LAB PHTC 7.35-7.45 pH, Temp Low Corrected 7.32 LAB PCO2T 34-46 mm Hg pCO2, Temp High Correct 52 LAB PO2T mm Hg pO2, Temp Corrected 169 LAB NAB 132-148 mmol/L Sodium,Whole Bld 140 LAB KWB 3.5-5.0 mmol/L Potassium, Low Whole Bld 3.4 LAB HGBB 11.5-15.5 g/dL Low Hemoglobin,Total,A 10.5 CL LAB HCTB 36.0-46.0 % Hematocrit, Low ACL 33 LAB IC 1.08-1.30 mmol/L Calcium, Ion, WB 1.21 LAB GLB 60-105 mg/dL Glucose,Whole High Bld 115 LAB LACT 0.5-2.2 mmol/L Lactate High 2.6 LAB ACBDTE Notify Date, Art [id number] LAB ACBTME Notify Time, Art Performed By: #### ALLBG #### [facility] [address] [place], [place] [address] GASA + ALL Collected: 07/30/2018 Status: F Source: [place] FOR 7:10 AM [facility] USE ONLY REPOSITORY TYPE CODE TESTS RESULT OUT OF REFERENCE UNITS RANGE LAB PH 7.35-7.45 pH High 7.46 LAB PCO2 34-46 mm Hg pCO2 39 LAB PO2 85-95 mm Hg pO2 High 141 LAB BE mmol/L Base Excess 4 LAB HCO3 22-26 mmol/L Bicarbonate High 27 LAB CO2CT 22.0-28.0 mmol/L CO2 Content 28 LAB O2HB 95-98 % Oxyhemoglobin, Art. 97 LAB COHB 0-5.0 % Carboxyhemoglobin,A 1.4 rt LAB MHGB 0.4-1.5 % Methemoglobin 1.1 LAB TEMP C Temperature, Body 37.0 LAB PHTC 7.35-7.45 pH, Temp High Corrected 7.46 LAB PCO2T 34-46 mm Hg pCO2, Temp Correct 39 LAB PO2T mm Hg pO2, Temp Corrected 141 LAB NAB 132-148 mmol/L Sodium,Whole Bld 141 LAB KWB 3.5-5.0 mmol/L Potassium, Whole Low Bld 3.2 LAB HGBB 11.5-15.5 g/dL Low Hemoglobin,Total,AC 11.1 L LAB HCTB 36.0-46.0 % Hematocrit, ACL Low 34 LAB IC 1.08-1.30 mmol/L Calcium, Ion, WB 1.15 LAB GLB 60-105 mg/dL Glucose,Whole Bld High 114 LAB LACT 0.5-2.2 mmol/L Lactate 2.0 Performed By: #### ALLBG #### [facility] [address] [place], [place] [address] ALLIED HEALTH Observed: 07/30/2018 Status: COMPLETED Source: [place] 6:55 AM [facility] REPOSITORY HNO ID: [id number] Author: Justin ([employer]) Chaplain Theodore Service: Spiritual Care Author Type: [employer] Type: Allied Health Filed: 07/30/2018 6:56 AM Note Text: SPIRITUAL CARE Spiritual Care Visit Record Name: Priscilla Sharpe Date: July 30, 2018 Type of Visit: Preoperative Prayer/Visit Visit was with (pt, family, other) and name(s): Pt and 2 family members. Ministry Provided During Visit: Prayer / Meditation Spiritual Presence / Support Notes: Patient is Jain. Referrals: No referral made Will See: As Needed Only Follow-up Notes: Informed patient and family of [employer] availability and Healing Services Signature: Chaplain Up M.Div., [facility] To contact the [facility] Care Department: Please call [phone] or Page the On-Call [employer] at pager [phone] Thank you for the opportunity to be of service. This is an electronically created document. IF PRINTED, PLEASE DO NOT REMOVE FROM THE CHART OR MODIFY PRINTED COPY. PT ED Observed: 07/30/2018 Status: COMPLETED Source: [place] 6:10 AM [facility] [place] REPOSITORY HNO ID: [id number] Author: Nan (Rn) BHARATH Diallo Service: Nursing Author Type: Registered Nurse Type: Patient Education Filed: 07/30/2018 6:10 AM Note Text: PRE OP LEARNING ASSESSMENT PROCEDURE/SURGERY: SURGERY: Heart READINESS TO LEARN COGNITIVE ABILITY: Alert and oriented MOTIVATION TO LEARN: Interested FAMILY SUPPORT: Moderate - Family present but overwhelmed PATIENT LEARNS BEST BY: Verbal Instruction FACTORS AFFECTING LEARNING: Emotional Factors: Anxious PHYSICAL LIMITATIONS AFFECTING LEARNING: None Electronically Signed By: Nan Diallo RN In Department: [id number] SURGICAL PATHOLOGY Observed: 07/30/2018 Status: F Source: [place] 12:00 AM [facility] REPOSITORY Specimen originated from [facility] Specimen #: [id number] Submitting Physician: JAMIE JO ([id number]) FINAL DIAGNOSIS 1. Septal muscle, myectomy (A) - Moderate myocyte hypertrophy with focal mild disarray. - Moderate interstitial fibrosis with replacement fibrosis. - Mild intramural coronary artery dysplasia. - Endocardial fibrosis. 2. Mitral valve, segmental resection (B) - Myxoid degeneration. CT/ka 08/03/2018 COMMENT 1. A Movat stain was performed to assess for fibrosis with adequate control. The Movat stain shows moderate interstitial fibrosis with areas of replacement fibrosis. There are small foci of myocyte disarray. Histologic features are compatible with hypertrophic cardiomyopathy. 2. A Movat stain was performed to assess the valvular architecture with adequate control. The Movat stain shows mild accumulation of mucopolysaccharides in the spongiosa with moderate elastosis of the atrialis. There is chordal rupture not associated with vegetations or acute inflammation. Rosa Elena Baer M.D. (Electronic Signature) SPECIMEN SUBMITTED A: SEPTAL MUSCLE B: MITRAL VALVE LEAFLETS CLINICAL DATA HOCM WITH GUI, MR GROSS DESCRIPTION A. Received fresh labeled as septal muscle are multiple fragments of baer-brown muscular tissue weighing 11.12 grams and aggregating to 5.5 x 4.5 x 1.6 cm. Some of the fragments show white thickened endocardium. Scars are present upon sectioning the myocardium. Feather Shaper sections are submitted in cassettes A1-A2. B. Received in formalin labeled as mitral valve is a segment of atrioventricular valve measuring 2.3 cm along the free edge and 2.0 cm from free edge to base. The leaflet is diffusely myxoid. A billowing deformity is present. There is no calcification. There is no fibrosis. No vegetations or perforations are present. The chordae demonstrate a rupture site. Feather Shaper sections are submitted in cassette B1. TN/glw 08/02/2018 Gross examination performed at [facility], [facility] [place] [facility] [place] [address] Date of Report: 08/03/2018 Date of Procedure: 07/30/2018 Date of Receipt: 07/30/2018 Submitted by: JAMIE JO ([id number]) Location: J Diagnostic interpretation performed at [facility], [facility] [place] [address]. URINALYSIS Collected: 07/29/2018 Status: F Source: [place] 1:24 PM [facility] REPOSITORY TYPE CODE TESTS RESULT OUT OF RANGE REFERENCE UNITS LAB UCOL Yellow Color Yellow LAB [facility] Clear Clarity Abnormal Cloudy Alert LAB UGLUC Negative mg/dL Glucose, Urine Negative LAB UBIL Negative Bilirubin, Urine Negative LAB UKET Negative Ketones, Urine Negative LAB USPG 1.005-1.030 Specific [place], Ur 1.016 LAB UHGB Negative Abnormal Hemoglobin/Blood, 1+ Alert Ur LAB UPH 4.5-8.0 pH 5.0 LAB UPROT Negative mg/dL Protein, Abnormal Urine 30 Alert LAB UUROB Normal Urobilinogen Normal LAB UNITR Negative Nitrites Abnormal Positive Alert LAB ULKEST Negative Leukest Abnormal 3+ Alert LAB UCOM Comments SEE COMMENT Result Comment: Microscopic Examination Performed LAB UWBC 0-5 /HPF Abnormal Alert WBC >25 LAB URBC 0-3 /HPF Abnormal Alert RBC 3-5 LAB UCAST 0 /LPF Abnormal Alert Cast SEE COMMENT Result Comment: >10 Hyaline Cast LAB UEPI /HPF Epithelial SEE Cells COMMENT Result Comment: Few Squamous Epithelial Cells Few Non-Squamous Epithelial Cells LAB UMCOM Urine SEE Hussein Comment COMMENT Result Comment: N/A Performed By: #### UA #### [facility] [address] [place] [id number] PROGRESS Observed: 07/29/2018 Status: COMPLETED Source: [place] 10:19 AM [facility] REPOSITORY HNO ID: [id number] Author: Bhanu Ortez) Alex Service: (none) Author Type: Nurse Practitioner Type: Progress Notes Filed: 07/29/2018 10:19 AM Note Text: SEE HANDP NOTE PROGRESS Observed: 07/29/2018 Status: COMPLETED Source: [place] 10:18 AM [facility] REPOSITORY HNO ID: [id number] Author: Bhanu Osman Service: (none) Author Type: Nurse Practitioner Type: Progress Notes Filed: 07/29/2018 10:19 AM Note Text: AMBULATORY PATIENT EDUCATION READINESS TO LEARN Cognitive Ability: Alert and oriented Motivation To Learn: Interested Family Support: High - Very involved in pt care Instruction Provided To: Patient AND Family Patient Learns Best By: Multiple Methods Factors Affecting Learning: None Physical Limitations Affecting Learning: None LEARNING RESPONSE Diagnosis: hypertrophic obstructive cardiomyopathy / mitral regurgitation Education Topic: Pre-Op Open Heart Surgery Instructions Teaching Points: Logistics / Protocols /Complication Prevention Instruction/Supplemental Materials: Cardiac Surgery Information Binder, Video, Individual Instruction Patient/Family Response: Verbalizes understanding Follow up plan: Patient/Family to call [facility] with any further questions Referral (Recommendation): None Teach completed, topic: Bactroban instructions given PROGRESS Observed: 07/29/2018 Status: COMPLETED Source: [place] 10:18 AM [facility] REPOSITORY HNO ID: [id number] Author: Jamie Jo Service: (none) Author Type: Physician Type: Progress Notes Filed: 07/29/2018 11:38 AM Note Text: Thoracic and Cardiovascular Surgery [facility] SURGICAL CONSULT AND INFORMED CONSENT CHART COPY DO NOT DISCARD Patient Type: New Visit to determine Surgery: Yes PCP: Alisia Pacheco MD [address] [place] [address] Referring Physician:: Brandon Argueta MD [address] [place] [phone] HPI: Ms. Priscilla Sharpe is a 78 year old female seen in consultation at the request of Brandon Argueta for an opinion regarding treatment options for Atrial Fibrillation, Hypertrophic Obstructive Cardiomyopathy and Mitral Insufficiency after being seen and evaluated by Jay Rich MD. She is currently symptomatic and complains of shortness of breath and dyspnea on exertion. Comorbidities include moderate COPD which has been stable. Creatinine 1.33 I have personally reviewed her cardiac catheterization which shows normal coronary arteries. Her Echocardiogram reveals normal ventricular function with an EF of 65% and posterior leaflet prolapse and severe left ventricular outflow tract obstruction . Gradient of over 80 mm Hg. Septum of 17-20 mm 2 DC cardioversions Impression: left ventricular outflow tract obstruction with mitral valve prolapse and paf Plan: myectomy , mitral valve repair and tissue valve if needed, pulmonary vein isolation and clipping of the left atrial appendage I spent more than 50% of the visit face to face counseling the patient on the plan and treatment options. The time spent counseling was 30 minutes. The total time of the face to face visit was 30 minutes. The risks, benefits and anticipated outcomes of the procedure, the risks and benefits of the alternatives to the procedure, and the roles and tasks of the personnel to be involved, were discussed with the patient, and the patient consents to the procedure and agrees to proceed. These findings will be communicated back to the requesting physician via electronic medical record Jamie Jo MD, JANET CNOV Observed: 07/29/2018 Status: COMPLETED Source: [place] 10:00 AM [facility] REPOSITORY Office Visit (TOMN) PRISCILLA SHARPE ([id number]) 1940 F Date Time Provider Department 07/29/18 10:00 AM [facility] During your visit today, we recorded the following information about you: Jamie Jo MD, JANET 07/29/2018 11:38 AM Signed Thoracic and Cardiovascular Surgery [facility] SURGICAL CONSULT AND INFORMED CONSENT CHART COPY DO NOT DISCARD Patient Type: New Visit to determine Surgery: Yes PCP: Alisia Pacheco MD [address] [place] [phone] Referring Physician:: Brandon Argueta MD [address] [place] [phone] HPI: Ms. Priscilla Sharpe is a 78 year old female seen in consultation at the request of Brandon Argueta for an opinion regarding treatment options for Atrial Fibrillation, Hypertrophic Obstructive Cardiomyopathy and Mitral Insufficiency after being seen and evaluated by Jay Rich MD. She is currently symptomatic and complains of shortness of breath and dyspnea on exertion. Comorbidities include moderate COPD which has been stable. Creatinine 1.33 I have personally reviewed her cardiac catheterization which shows normal coronary arteries. Her Echocardiogram reveals normal ventricular function with an EF of 65% and posterior leaflet prolapse and severe left ventricular outflow tract obstruction . Gradient of over 80 mm Hg. Septum of 17-20 mm 2 DC cardioversions Impression: left ventricular outflow tract obstruction with mitral valve prolapse and paf Plan: myectomy , mitral valve repair and tissue valve if needed, pulmonary vein isolation and clipping of the left atrial appendage I spent more than 50% of the visit face to face counseling the patient on the plan and treatment options. The time spent counseling was 30 minutes. The total time of the face to face visit was 30 minutes. The risks, benefits and anticipated outcomes of the procedure, the risks and benefits of the alternatives to the procedure, and the roles and tasks of the personnel to be involved, were discussed with the patient, and the patient consents to the procedure and agrees to proceed. These findings will be communicated back to the requesting physician via electronic medical record Jamie Jo MD, JANET Referring Provider: BRANDON ARGUETA [[id number]] Allergies As of Date: 07/29/2018 Noted Allergy Reaction ZYLOPRIM (ALLOPURINOL) 05/26/2017 2 - Rash environmental [Other] 12/30/2005 5 - Intolerance Comments: rhinitis TRAMADOL 03/10/2016 14 - Other: See Comments Comments: made patient woozy/dizzy Date Reviewed: 07/29/2018 Reviewed by: Bhanu ([facility]) Alex - Fully Assessed Primary Visit Diagnosis:HOCM (hypertrophic obstructive cardiomyopathy) ([facility]) [I42.1] Other Visit Diagnoses:PAF (paroxysmal atrial fibrillation) ([facility]) [I48.0] Non-rheumatic mitral regurgitation [I34.0] Prescriptions as of 07/29/2018 Sig: AMOXICILLIN 500 MG CAPSULE TAKE 4 TABLETS ONE HOUR BEFOR* PAROXETINE 10 MG TABLET Take 1 tablet by mouth once d* LORAZEPAM 0.5 MG TABLET Take 1 tablet by mouth as nee* POTASSIUM CHLORIDE ER 10 MEQ * Take 10 mEq by mouth once kodi* COMPOUNDED PRESCRIPTION Please perform nocturnal oxim* AMIODARONE 200 MG TABLET Take 1 tablet by mouth once d* UMECLIDINIUM 62.5 MCG-VILANTE* Inhale one inhalation as inst* WARFARIN 2 MG TABLET Take 2 mg by mouth once daily. FUROSEMIDE 40 MG TABLET Take 1 tablet by mouth once d* ATENOLOL 50 MG TABLET Take 0.5 tablets by mouth onc* MAGNESIUM OXIDE 400 MG (241.3* Take 1 tablet by mouth once d* ALBUTEROL SULFATE HFA 90 MCG/* Inhale 2 Puffs as instructed * CHOLECALCIFEROL (VITAMIN D3) * Take 1 capsule by mouth once * GLUCOSAMINE AND CHONDROIT SUL.N* Take 1 tablet by mouth once d* Problem List As Of Date 07/29/2018 Noted Resolved 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 IMPAIRED FASTING GLUCOSE [R73.01] INVALID FOR* Essential hypertension [I10] INVALID FOR* More... Osteoporosis [M81.0] INVALID FOR* More... Vitamin D Deficiency [E55.9] INVALID FOR* More... MR (mitral regurgitation) [I34.0] IBS (irritable bowel syndrome) [K58.9] More... 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 HOCM (hypertrophic obstructive cardiomyopathy) *INVALID FOR* Discharge planning issues [Z02.9] INVALID FOR* Priority: B More... Preop testing [Z01.818] INVALID FOR* Priority: A More... Encounter for preoperative anesthesiology asses*INVALID FOR* Encounter Status:Closed by JAMIE JO MD on 07/29/18 [facility] PCR Collected: 07/29/2018 Status: F Source: [place] 9[facility] [facility] REPOSITORY TYPE CODE TESTS RESULT OUT OF RANGE REFERENCE UNITS LAB [facility] Nasal S aureus Spec Source LAB [facility] Negative for MRSA MRSA by PCR. PCR LAB SARES Positive for Abnormal Staph Staphylococcus Alert aureus PCR aureus by PCR. Performed By: #### SAPCR #### [facility] [address] [place], [place] [address] PROGRESS Observed: 07/29/2018 Status: COMPLETED Source: [place] 8:34 AM [facility] REPOSITORY HNO ID: [id number] Author: Jh Andersen MD (Fel) Service: (none) Author Type: Fellow Type: Progress Notes Filed: 07/29/2018 10:38 AM Note Text: [facility] PREOP EVALUATION CARDIOTHORACIC ANESTHESIA CARDIAC SURGERY SERVICE DATE: 07/29/2018 SERVICE TIME: 8:34 AM Proposed Surgical Procedure: Myomectomy Re-do: No ASA Class: 4 Surgeon: Sandro Surgery Date: 07/30/18 Last Wt 07/15/18 : 68 kg (150 lb) Last Ht 07/15/18 : 167.6 cm (5' 6) Estimated body mass index is 24.21 kg/m? as calculated from the following: Height as of 07/15/18: 167.6 cm (5' 6). Weight as of 07/15/18: 68 kg (150 lb). Estimated body surface area is 1.78 meters squared as calculated from the following: Height as of 07/15/18: 167.6 cm (5' 6). Weight as of 07/15/18: 68 kg (150 lb). Mrs. Priscilla ElizondoIng-susu Sharpe is a 78 y/o female with a h/o 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, hypertrophic cardiomyopathy, PAF (cardioversion 05/18, 10/18), HTN, dyslipidemia, mitral insufficiency, Long QT syndrome, 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+ pack years (quit 2012) presenting for anesthesia clearance prior to a ventriculomyotomy. She also has small cell lymphoma s/p chemotherapy. She has no recent ED visits for COPD exacerbations and denies any changes in breathing, overall health, or changes in bronchodilator requirements. She denies dyspnea at rest with no changes in her exertional dyspnea. She uses 2L NC at night. No prior general anesthetics. She is more nervous about the anesthesia than the surgery. Active Problems: * No active hospital problems. * Resolved Problems: * No resolved hospital problems. 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 Monson follows for benign tumor removed 2002 - Unspecified essential hypertension 10/06/2008 PAST SURGICAL HISTORY Procedure Laterality Date - PAST SURGICAL HISTORY OF 2003 tumor removed from bladder FAMILY HISTORY Problem Relation Age of Onset - None Father - None Mother - other (Myocardial infarction) Paternal Grandmother 80 Social History Substance Use Topics - Smoking status: Former Smoker Packs/day: 1.00 Years: 58.00 Types: Cigarettes Start date: 1955 Quit date: 07/02/2013 - Smokeless tobacco: Never Used Comment: No smoking in childhood home. Spouse quit smoking years before patient did. - Alcohol use Yes Comment: occasional ALLERGIES Allergen Reactions - Zyloprim [Allopurin* Rash - Environmental [Othe* Intolerance rhinitis - Tramadol Other: See Comments made patient woozy/dizzy REVIEW OF SYSTEMS: Neuro: Denies h/o CVA, TIA, seizures, and other neurological sequelae. Respiratory: As noted above CV: As documented above GI: Denies h/o esophageal varices/strictures, ascites, and hepatic disease. Endocrine: Denies h/o DM and chronic steroid use. Heme: Denies h/o bleeding or clotting disorder. Anticoagulation as documented below. No h/o other hematological symptoms. CKD AND ANEMIA ASSESSMENT: Patient has both eGFR < 60 mL/min and a Hemoglobin < 11 g/dl: No ANESTHETIC HISTORY: No prior general anesthetics. AIRWAY ASSESSMENT: Airway History: No abnormal airway history Airway Exam: General: Normal appearance Mallampati Score: CLASS II Temporo-Mandibular Displacement Test: Position A (lower teeth can be advanced beyond upper teeth) Thyromental Distance: 6 cm Neck Circumference: 37 cm Overbite: No Cervical Mobility: Normal Facial Hair: No Head/Neck Pathology: No ANTICIPATED DIFFICULT AIRWAY: NO Pre-Existing Diagnosis of Obstructive Sleep Apnea: No, STOP BANG SCORE: Criteria = Criteria: Hypertension Age over 50 (78 year old) Score = 2, Score = 2 PHYSICAL EXAM: VITALS: There were no vitals taken for this visit. General: NAD, appears stated age, in no obvious discomfort HEENT: EOMi, moist mucous membranes Pulmonary: CTAB, no wheezing or rhonchi, normal respiratory effort, not on supplemental O2, speaking in full sentences Cardiac: RRR, normal S1 and S2, systolic murmur ausculated, no JVD Abdominal: Soft, nontender, nondistended, normal bowel sounds Neuro: AAOx4, no obvious focal neurological deficits Extremities: 2+ bilateral radial pulses Skin: Warm, normal capillary refill Lines, Drains, Airway: Patient has no lines, drains or airway LABS: Lab Results Past 6 Months Component Value Date HB 12.7 06/10/2018 HCT 40.9 06/10/2018 PLT 279 06/10/2018 WBC 10.39 06/10/2018 NA 142 06/10/2018 K 3.7 06/10/2018 CREAT 1.15 (H) 06/10/2018 CA 9.2 06/10/2018 INR Test sent to [facility]. 07/09/2018 TSH 1.100 06/10/2018 Lab Results Past 6 Months Component Value Date GLUC 141 (H) 06/10/2018 K 3.7 06/10/2018 NA 142 06/10/2018 CHLOR 102 06/10/2018 CO2 30 06/10/2018 CREAT 1.15 (H) 06/10/2018 BUN 26 (H) 06/10/2018 ANION 10 06/10/2018 CA 9.2 06/10/2018 TPROT 6.8 06/10/2018 ALB 4.1 06/10/2018 TBILI 0.5 06/10/2018 ALKPHOS 76 06/10/2018 AST 18 06/10/2018 ALT 16 06/10/2018 ALT 14 06/10/2018 No results found for: ABO, ABORHD, ABSCREEN, PREVAB Anticipated Blood Products Ordered: No blood product orders needed. Will the Patient Accept Blood: Yes IMAGING AND TESTS: 06/10/18 TTE: - The left ventricle is normal in size. There is upper septal left ventricular hypertrophy. Left ventricular systolic function is normal. EF = 65 ? 5% (2D biplane) Indeterminate left ventricular diastolic dysfunction. - The right ventricle is normal in size. Right ventricular systolic function is normal. - The left atrial cavity is severely dilated. - There is moderate (2+ - 3+) mitral valve regurgitation due to prolapse and redundant leaflets. Eccentric mitral regurigtation due to both posterior leaflet prolapse and GUI. MR severity is likely underestimated due to eccentricity. - Estimated right ventricular systolic pressure is 50 mmHg consistent with moderate pulmonary hypertension. Estimated right atrial pressure is 5 mmHg. - There is dynamic LVOT obstruction with GUI provoked by amyl nitrite (best seen in clips #41, 43 and 125). Dynamic LVOT gradient 80 mmHg. 06/10/18 EKG: NORMAL SINUS RHYTHM WITH 1ST DEGREE AV BLOCK LATERAL MYOCARDIAL INFARCTION , AGE UNDETERMINED PROLONGED QT INTERVAL OR TU FUSION, CONSIDER HYPOKALEMIA Oximetry, 07/15/18 InspO2* ? SpO2% ? ? HR Activity ?Feet ?Time ? MPH ?Flag RA ? 94 ? ? 56 resting RA ? 93 ? ? 66 walking, usual pace ? ?329 ?3.00 ?1.25 RA ? 95 ? ? 60 resting ? 1 min. post * RA = room air, NC2 = O2 by nasal cannula at 2 LPM, ? ? ?TT2=O2 by trans-tracheal catherter at 2 LPM, etc. DEVICES: None MEDICATIONS: Current Outpatient Prescriptions: amoxicillin (POLYMOX, AMOXIL) 500 mg capsule TAKE 4 TABLETS ONE HOUR BEFORE DENTAL WORK PARoxetine (PAXIL) 10 mg tablet Take 1 tablet by mouth once daily. LORazepam (ATIVAN) 0.5 mg tab Take 1 tablet by mouth as needed (at bedtime or as needed during the day) for up to 90 days. potassium chloride (K-TAB) 10 mEq tablet Take 10 mEq by mouth once daily. COMPOUNDED PRESCRIPTION Please perform nocturnal oximetry on RA. DME: [employer]. amiodarone (PACERONE) 200 mg tablet Take 1 tablet by mouth once daily. umeclidinium-vilanterol (ANORO ELLIPTA) 62.5-25 mcg/actuation inhaler Inhale one inhalation as instructed once daily warfarin (COUMADIN) 2 mg tablet Take 2 mg by mouth once daily. furosemide (LASIX) 40 mg tablet Take 1 tablet by mouth once daily. atenolol (TENORMIN) 50 mg tablet Take 0.5 tablets by mouth once daily. magnesium oxide (MAGOX) 400 mg tablet Take 1 tablet by mouth once daily. albuterol HFA (VENTOLIN HFA) 90 mcg/actuation inhaler Inhale 2 Puffs as instructed every 4 hours as needed for Wheezing/Shortness of Breath. Cholecalciferol, Vitamin D3, 1,000 unit cap Take 1 capsule by mouth once daily. GLUCOSAM SUL NA/CHONDR WEATHERS A NA (GLUCOSAMINE AND CHONDROIT SUL.NA ORAL) Take 1 tablet by mouth once daily. No current facility-administered medications for this visit. Is the patient currently on any anticoagulant medications: Yes: Anticoagulant medications the patient is currently on: Coumadin This was adequately stopped before surgery: Yes, per surgery PAIN AND ANXIETY EDUCATION AND MANAGEMENT: Patient has no concerns to address at this time. Additional Comments: None I have reviewed the Cardiothoracic Surgical Assessment and agree with its findings. During the course of the encounter the patient was prepared for anesthetic care. This conversation included anesthetic options, possible use of invasive monitoring, the risks, benefits, alternatives, and personnel that will be present for the anesthetic encounter. The patient agreed to proceed with the planned anesthetic. I instructed the patient to take amiodarone and atenolol with a small sip of water on the morning of surgery. BETA JHON COMPLIANCE: Is the Patient Scheduled for a CABG: No Jh Andersen MD Cardiothoracic Coding Spec [facility] Pager [phone] PROGRESS Observed: 07/29/2018 Status: COMPLETED Source: [place] 8:30 AM [facility] REPOSITORY [facility] ID: [id number] Author: Bhanu Osman Service: (none) Author Type: Nurse Practitioner Type: Progress Notes Filed: 07/29/2018 3:59 PM Note Text: CONSULT HISTORY and PHYSICAL CARDIOTHORACIC SURGERY Consulting Service: Cardiothoracic Surgery Requesting Provider: [facility] Podiatry Doctor, Jay Rich MD on 06/10/18. Opinion/advice regarding: Pre-Op Open Heart Surgery Cardiothoracic Physician: Jamie Jo M.D. NAME: Priscilla Sharpe HEIGHT: 162.6 cm WEIGHT: 68 kg Intended Procedure: myectomy , mitral valve repair and tissue valve if needed, pulmonary vein isolation and clipping of the left atrial appendage REDO: No STS SCORE: N/A Has this patient been previously evaluated for Open Heart Surgery for this condition? 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 She reports that she was experiencing shortness of breath 1-2 years ago and presented to her PCP and she was told that she had a heart murmur. She was referred to a educational administration teacher at that time and cardiac workup (echo, DANIEL and CXR) revealed evidence of HOCM. She was noted to have atrial fibrillation in 2017 and did have a cardioversion (successful) and started on coumadin at that time. She has a history of small cell lymphoma and is currently in remission (last dose of Chemo ~ 1 year ago). She follows with Dr. Alford in Hematology. She states her largest complaint is shortness of breath with exertion and activity (long walks, steps. Etc). She has been using oxygen at night for sleep (~ 2L) and has been following with her Wireless Development Manager regularly for COPD management. She has had issues with palpations in the past when she was in afib but not recently. She denies lightheadedness/dizziness/sycncope, chest pain and leg swelling when asked. 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 Monson follows for benign tumor removed 2002 - Unspecified essential hypertension 10/06/2008 PAST SURGICAL HISTORY: PAST SURGICAL HISTORY Procedure Laterality Date - PAST SURGICAL HISTORY OF 2003 tumor removed from bladder FAMILY HISTORY: FAMILY HISTORY Problem Relation Age of Onset - None Father - None Mother - other (Myocardial infarction) Paternal Grandmother 80 FAMILY HISTORY OF CAD: Yes SOCIAL HISTORY: Social History Substance Use Topics - Smoking status: Former Smoker Packs/day: 1.00 Years: 58.00 Types: Cigarettes Start date: 1955 Quit date: 07/02/2013 - Smokeless tobacco: Never Used Comment: No smoking in childhood home. Spouse quit smoking years before patient did. - Alcohol use Yes Comment: occasional SOCIAL HISTORY OF IVDU: No SOCIAL HISTORY OF Smoking: Yes SOCIAL HISTORY OF Alcohol Dependency: No MEDICATIONS: Prior to Admission Medications: PARoxetine (PAXIL) 10 mg tablet Take 1 tablet by mouth once daily. LORazepam (ATIVAN) 0.5 mg tab Take 1 tablet by mouth as needed (at bedtime or as needed during the day) for up to 90 days. potassium chloride (K-TAB) 10 mEq tablet Take 10 mEq by mouth once daily. amiodarone (PACERONE) 200 mg tablet Take 1 tablet by mouth once daily. umeclidinium-vilanterol (ANORO ELLIPTA) 62.5-25 mcg/actuation inhaler Inhale one inhalation as instructed once daily furosemide (LASIX) 40 mg tablet Take 1 tablet by mouth once daily. atenolol (TENORMIN) 50 mg tablet Take 0.5 tablets by mouth once daily. albuterol HFA (VENTOLIN HFA) 90 mcg/actuation inhaler Inhale 2 Puffs as instructed every 4 hours as needed for Wheezing/Shortness of Breath. amoxicillin (POLYMOX, AMOXIL) 500 mg capsule TAKE 4 TABLETS ONE HOUR BEFORE DENTAL WORK COMPOUNDED PRESCRIPTION Please perform nocturnal oximetry on RA. DME: [employer]. warfarin (COUMADIN) 2 mg tablet Take 2 mg by mouth once daily. magnesium oxide (MAGOX) 400 mg tablet Take 1 tablet by mouth once daily. Cholecalciferol, Vitamin D3, 1,000 unit cap Take 1 capsule by mouth once daily. GLUCOSAM SUL NA/CHONDR WEATHERS A NA (GLUCOSAMINE AND CHONDROIT SUL.NA ORAL) Take 1 tablet by mouth once daily. ALLERGIES: ALLERGIES Allergen Reactions - Zyloprim [Allopurin* Rash - Environmental [Othe* Intolerance rhinitis - Tramadol Other: See Comments made patient woozy/dizzy COMPLETE REVIEW OF SYSTEMS: (10) Constitutional: No weight loss, malaise or fevers/chills. HEENT: Negative for frequent or significant headaches, No changes in hearing or vision, no nose bleeds or other nasal problems, Negative for difficulty swallowing Resp: Negative for cough and wheezing and Positive for shortness of breath limiting daily activity and with exertion Cardiovascular: Negative for chest pain, leg swelling, palpitations, orthopnea and paroxysmal nocturnal dyspnea, Vascular: denies GI: Negative for abdominal discomfort, blood in stools or black stools or change in bowel habits : No history of dysuria, frequency, or incontinence and No difficulty urination, nocturia >1 times per night or hematuria. Positive for history of bladder tumor removal (outpatient procedure). Endo: Negative for cold or heat intolerance, polyuria, polydipsia and goiter Heme/Lymph: Negative for prolonged bleeding, bruising easily or swollen nodes and Positive for small cell lymphoma (currently in remission) Neurologic: No history or headaches, syncope, paralysis, seizures or tremors Integumentary: Negative for lesions and rash and Positive for itching (on arms - no rashes) Additional systems reviewed: Pain: Negative for pain, history of chronic pain, or current treatment for a chronic pain condition, Musculoskeletal: Negative for joint pain or swelling, back pain or muscle pain Psychiatric: Positive for anxiety PHYSICAL EXAM: (8) BP 118/68 (BP Site: Left Arm, BP Position: Sitting) Pulse 80 Temp 36.6 ?C (97.9 ?F) (Oral) Resp 16 Ht 167.6 cm (5' 6) Wt 68 kg (150 lb) SpO2 95% BMI 24.21 kg/m? Right Handed Constitutional: Well developed, Well nourished and No acute distress HEENT: PERRL, EOM's intact and Dentures FULL DENTURES Resp: Clear and Respiratory effort: normal Cardiovascular: Iregular rate AND rhythm (afib) and +3-4 pansystolic murmur Vascular: Pulses - Grade 2/4 distal bilateral pulses, no edema and No varicosities GI: Soft, Non-tender, Bowel sounds present and Non-distended Integumentary: Warm, Dry and No rash on chest, arms or legs Musculoskeletal: No joint deformities Neurological/Psychiatric: Oriented to time, place AND person , Alert and No gross focal neurologic deficits Additional systems reviewed: No additional systems reviewed Labs: Cholesterol, Total Test sent to [facility]. 09/03/2016 HDL Cholesterol Test sent to [facility]. 09/03/2016 LDL Cholesterol Test sent to [facility]. 09/03/2016 ABO/RH(D) Date Value Ref Range Status 07/29/2018 A POSITIVE Final Antibody Screen Date Value Ref Range Status 07/29/2018 NEG Final CBC: Recent Labs 07/29/18 0746 WBC 8.47 RBC 5.14 HB 12.8 HCT 41.4 PLT 294 MCV 80.5 MCH 24.9* MPV 10.1 Coags: Recent Labs 07/29/18 0746 INR 1.1 APTT 26.2 CMP: Recent Labs 07/29/18 0746 NA 142 K 3.9 CHLOR 96* CO2 28 BUN 29* CREAT 1.33* GLUC 114* TPROT 7.5 CA 9.8 TBILI 0.5 ALKPHOS 94 ALT 18 20 AST 18 ANION 18 DATA: I have personally reviewed the following data: Cardiac Catheterization: (outside) - images on syngo 11/30/17 DANIEL: 09/02/17 TTE: 06/10/18 CXR: 07/29 CT Chest: 07/17/17 Adam's: 07/15/18 Dental clearance: Cleared - See Scanned Document [id number]/[id number] Impression: This is a 78 year old year-old female, who is being evaluated for surgical intervention of hypertrophic obstructive cardiomyopathy and mitral insufficiency. In consideration for surgery, the patient's acute and chronic medical issues have been evaluated as documented above and reviewed in the electronic medical record. Plan: Patient will be seen today by the surgeon, Dr. Jamie Jo M.D.. If the patient is a surgical candidate according to criteria met, then advise the following: ? Bactroban, prescriptions and instructions given. ? Anticoagulation instructions: Last dose of Coumadin and OTC was on 07/24/18 ? Pre Op Instructions per protocol reviewed and handout given to patient . ? Patient Education completed and documented. ? Emotional support provided to patient and family. All questions and concerns adressed. ? Dr. Jo notified and aware of elevated sCr --> ok to proceed with surgery. Advanced directives are complete but patient left them at home - she has been instructed to bring the copy of DOS. Anticipated Discharge Needs: PT/OT/RT evalulation for anticipated Home Care needs vs acute rehab. These findings will be communicated back to the requesting provider electronically. SIGNATURE: Bhanu Osman APRN.CNP PAGER: [phone] Date of Service: 07/29/2018 Time of Service: 8:30 AM PROGRESS Observed: 07/29/2018 Status: COMPLETED Source: [place] 8:18 AM [facility] REPOSITORY HNO ID: [id number] Author: Nan Yanes Service: (none) Author Type: (none) Type: Progress Notes Filed: 07/29/2018 8:18 AM Note Text: Radiology Service Progress Note PATIENT NAME: Priscilla Sharpe DATE OF SERVICE: July 29, 2018 TIME: 8:18 AM PATIENT IDENTITY VERIFICATION COMPLETED USING TWO (2) METHODS: Patient confirmed name verbally and Date of . PATIENT GENDER DATA: Female. status: : No status: NO. PATIENT RELEVANT IMPLANT DATA REVIEWED: Yes RADIOLOGY DEPARTMENT: General X-ray: Exam(s) Completed: Chest X-Ray PERIPHERAL IV DATA: Not applicable SIGNED BY: Nan Yanes July 29, 2018 8:18 AM XR CHEST 2V FRONTAL/LAT Observed: 07/29/2018 Status: F Source: [place] 8:18 AM [facility] REPOSITORY * * *Final Report* * * DATE OF EXAM: Jul 29 2018 8:18AM JIX [id number] - XR CHEST 2V FRONTAL/LAT / PROCEDURE REASON: multiple diagnoses * * * * Physician Interpretation * * * * EXAMINATION: CHEST RADIOGRAPH (2 VIEW FRONTAL and LATERAL) CLINICAL HISTORY: Nonrheumatic mitral (valve) insufficiency Obstructive hypertrophic cardiomyopathy MQ: XC2_5 Comparison: December 06, 2017 RESULT: Lines, tubes, and devices: None. Lungs and pleura: There is pulmonary vascular redistribution and Edward B lines in both lung bases from interstitial edema which has occurred since December. Emphysematous blebs are present in the upper lobes. Lungs are otherwise clear. Cardiomediastinal silhouette: There is left ventricular and left atrial enlargement. There is dilatation of the descending thoracic aorta suspicious for an aneurysm. Mediastinum is otherwise normal. Other: Bony structures are osteopenic. There is a remote fracture of the left sixth rib. IMPRESSION: New congestive heart failure and interstitial edema Emphysema Dilated descending thoracic aorta Medical Billing Specialist: PHILIPPE Transcribe Date/Time: Jul 29 2018 2:07P Dictated by : RAMSEY UGARTE MD This examination was interpreted and the report reviewed and electronically signed by: RAMSEY UGARTE MD on Jul 29 2018 2:15PM EST [id number] Observed: 07/29/2018 Status: COMPLETED Source: [place] 8:00 AM [facility] REPOSITORY Office Visit (CARTMN) PRISCILLA SHARPE ([id number]) 1940 F Date Time Provider Department 07/29/18 8:00 AM [facility] CARTMD During your visit today, we recorded the following information about you: Bhanu Osman APRN.CNP 07/29/2018 10:19 AM Signed SEE HANDP NOTE Referring Provider: JAMIE JO [[id number]] Allergies As of Date: 07/29/2018 Noted Allergy Reaction ZYLOPRIM (ALLOPURINOL) 05/26/2017 2 - Rash environmental [Other] 12/30/2005 5 - Intolerance Comments: rhinitis TRAMADOL 03/10/2016 14 - Other: See Comments Comments: made patient woozy/dizzy Date Reviewed: 07/29/2018 Reviewed by: Bhanu Osman - Fully Assessed Primary Visit Diagnosis:HOCM (hypertrophic obstructive cardiomyopathy) ([facility]) [I42.1] Other Visit Diagnoses:PAF (paroxysmal atrial fibrillation) ([facility]) [I48.0] Non-rheumatic mitral regurgitation [I34.0] Preop testing [Z01.818] Prescriptions as of 07/29/2018 Sig: AMOXICILLIN 500 MG CAPSULE TAKE 4 TABLETS ONE HOUR BEFOR* PAROXETINE 10 MG TABLET Take 1 tablet by mouth once d* LORAZEPAM 0.5 MG TABLET Take 1 tablet by mouth as nee* POTASSIUM CHLORIDE ER 10 MEQ * Take 10 mEq by mouth once kodi* COMPOUNDED PRESCRIPTION Please perform nocturnal oxim* AMIODARONE 200 MG TABLET Take 1 tablet by mouth once d* UMECLIDINIUM 62.5 MCG-VILANTE* Inhale one inhalation as inst* WARFARIN 2 MG TABLET Take 2 mg by mouth once daily. FUROSEMIDE 40 MG TABLET Take 1 tablet by mouth once d* ATENOLOL 50 MG TABLET Take 0.5 tablets by mouth onc* MAGNESIUM OXIDE 400 MG (241.3* Take 1 tablet by mouth once d* ALBUTEROL SULFATE HFA 90 MCG/* Inhale 2 Puffs as instructed * CHOLECALCIFEROL (VITAMIN D3) * Take 1 capsule by mouth once * GLUCOSAMINE AND CHONDROIT SUL.N* Take 1 tablet by mouth once d* Problem List As Of Date 07/29/2018 Noted Resolved 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 IMPAIRED FASTING GLUCOSE [R73.01] INVALID FOR* Essential hypertension [I10] INVALID FOR* More... Osteoporosis [M81.0] INVALID FOR* More... Vitamin D Deficiency [E55.9] INVALID FOR* More... MR (mitral regurgitation) [I34.0] IBS (irritable bowel syndrome) [K58.9] More... 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 HOCM (hypertrophic obstructive cardiomyopathy) *INVALID FOR* Discharge planning issues [Z02.9] INVALID FOR* Priority: B More... Preop testing [Z01.818] INVALID FOR* Priority: A More... Encounter for preoperative anesthesiology asses*INVALID FOR* Encounter Status:Closed by BHANU OSMAN CNP on 07/29/18 CNSAVANNAH Observed: 07/29/2018 Status: COMPLETED Source: [place] 8:00 AM [facility] REPOSITORY Office Visit (CARTMN) PRISCILLA SHARPE ([id number]) 1940 F Date Time Provider Department 07/29/18 8:00 AM ANESTHESIA CLEARANCE CARTMN During your visit today, we recorded the following information about you: Jh Andersen MD, MD 07/29/2018 10:38 AM Addendum [facility] CARDIOTHORACIC ANESTHESIA CARDIAC SURGERY SERVICE DATE: 07/29/2018 SERVICE TIME: 8:34 AM Proposed Surgical Procedure: Myomectomy Re-do: No ASA Class: 4 Surgeon: Sandro Surgery Date: 07/30/18 Last Wt 07/15/18 : 68 kg (150 lb) Last Ht 07/15/18 : 167.6 cm (5' 6) Estimated body mass index is 24.21 kg/m? as calculated from the following: Height as of 07/15/18: 167.6 cm (5' 6). Weight as of 07/15/18: 68 kg (150 lb). Estimated body surface area is 1.78 meters squared as calculated from the following: Height as of 07/15/18: 167.6 cm (5' 6). Weight as of 07/15/18: 68 kg (150 lb). Mrs. Priscilla ElizondoIng-susu Sharpe is a 78 y/o female with a h/o 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, hypertrophic cardiomyopathy, PAF (cardioversion 05/18, 10/18), HTN, dyslipidemia, mitral insufficiency, Long QT syndrome, 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+ pack years (quit 2012) presenting for anesthesia clearance prior to a ventriculomyotomy. She also has small cell lymphoma s/p chemotherapy. She has no recent ED visits for COPD exacerbations and denies any changes in breathing, overall health, or changes in bronchodilator requirements. She denies dyspnea at rest with no changes in her exertional dyspnea. She uses 2L NC at night. No prior general anesthetics. She is more nervous about the anesthesia than the surgery. Active Problems: * No active hospital problems. * Resolved Problems: * No resolved hospital problems. 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 Monson follows for benign tumor removed 2002 - Unspecified essential hypertension 10/06/2008 PAST SURGICAL HISTORY Procedure Laterality Date - PAST SURGICAL HISTORY OF 2003 tumor removed from bladder FAMILY HISTORY Problem Relation Age of Onset - None Father - None Mother - other (Myocardial infarction) Paternal Grandmother 80 Social History Substance Use Topics - Smoking status: Former Smoker Packs/day: 1.00 Years: 58.00 Types: Cigarettes Start date: 1955 Quit date: 07/02/2013 - Smokeless tobacco: Never Used Comment: No smoking in childhood home. Spouse quit smoking years before patient did. - Alcohol use Yes Comment: occasional ALLERGIES Allergen Reactions - Zyloprim [Allopurin* Rash - Environmental [Othe* Intolerance rhinitis - Tramadol Other: See Comments made patient woozy/dizzy REVIEW OF SYSTEMS: Neuro: Denies h/o CVA, TIA, seizures, and other neurological sequelae. Respiratory: As noted above CV: As documented above GI: Denies h/o esophageal varices/strictures, ascites, and hepatic disease. Endocrine: Denies h/o DM and chronic steroid use. Heme: Denies h/o bleeding or clotting disorder. Anticoagulation as documented below. No h/o other hematological symptoms. CKD AND ANEMIA ASSESSMENT: Patient has both eGFR < 60 mL/min and a Hemoglobin < 11 g/dl: No ANESTHETIC HISTORY: No prior general anesthetics. AIRWAY ASSESSMENT: Airway History: No abnormal airway history Airway Exam: General: Normal appearance Mallampati Score: CLASS II Temporo-Mandibular Displacement Test: Position A (lower teeth can be advanced beyond upper teeth) Thyromental Distance: 6 cm Neck Circumference: 37 cm Overbite: No Cervical Mobility: Normal Facial Hair: No Head/Neck Pathology: No ANTICIPATED DIFFICULT AIRWAY: NO Pre-Existing Diagnosis of Obstructive Sleep Apnea: No, STOP BANG SCORE: Criteria = Criteria: Hypertension Age over 50 (78 year old) Score = 2, Score = 2 PHYSICAL EXAM: VITALS: There were no vitals taken for this visit. General: NAD, appears stated age, in no obvious discomfort HEENT: EOMi, moist mucous membranes Pulmonary: CTAB, no wheezing or rhonchi, normal respiratory effort, not on supplemental O2, speaking in full sentences Cardiac: RRR, normal S1 and S2, systolic murmur ausculated, no JVD Abdominal: Soft, nontender, nondistended, normal bowel sounds Neuro: AAOx4, no obvious focal neurological deficits Extremities: 2+ bilateral radial pulses Skin: Warm, normal capillary refill Lines, Drains, Airway: Patient has no lines, drains or airway LABS: Lab Results Past 6 Months Component Value Date HB 12.7 06/10/2018 HCT 40.9 06/10/2018 PLT 279 06/10/2018 WBC 10.39 06/10/2018 NA 142 06/10/2018 K 3.7 06/10/2018 CREAT 1.15 (H) 06/10/2018 CA 9.2 06/10/2018 INR Test sent to [facility]. 07/09/2018 TSH 1.100 06/10/2018 Lab Results Past 6 Months Component Value Date GLUC 141 (H) 06/10/2018 K 3.7 06/10/2018 NA 142 06/10/2018 CHLOR 102 06/10/2018 CO2 30 06/10/2018 CREAT 1.15 (H) 06/10/2018 BUN 26 (H) 06/10/2018 ANION 10 06/10/2018 CA 9.2 06/10/2018 TPROT 6.8 06/10/2018 ALB 4.1 06/10/2018 TBILI 0.5 06/10/2018 ALKPHOS 76 06/10/2018 AST 18 06/10/2018 ALT 16 06/10/2018 ALT 14 06/10/2018 No results found for: ABO, ABORHD, ABSCREEN, PREVAB Anticipated Blood Products Ordered: No blood product orders needed. Will the Patient Accept Blood: Yes IMAGING AND TESTS: 06/10/18 TTE: - The left ventricle is normal in size. There is upper septal left ventricular hypertrophy. Left ventricular systolic function is normal. EF = 65 ? 5% (2D biplane) Indeterminate left ventricular diastolic dysfunction. - The right ventricle is normal in size. Right ventricular systolic function is normal. - The left atrial cavity is severely dilated. - There is moderate (2+ - 3+) mitral valve regurgitation due to prolapse and redundant leaflets. Eccentric mitral regurigtation due to both posterior leaflet prolapse and GUI. MR severity is likely underestimated due to eccentricity. - Estimated right ventricular systolic pressure is 50 mmHg consistent with moderate pulmonary hypertension. Estimated right atrial pressure is 5 mmHg. - There is dynamic LVOT obstruction with GUI provoked by amyl nitrite (best seen in clips #41, 43 and 125). Dynamic LVOT gradient 80 mmHg. 06/10/18 EKG: NORMAL SINUS RHYTHM WITH 1ST DEGREE AV BLOCK LATERAL MYOCARDIAL INFARCTION , AGE UNDETERMINED PROLONGED QT INTERVAL OR TU FUSION, CONSIDER HYPOKALEMIA Oximetry, 07/15/18 InspO2* ? SpO2% ? ? HR Activity ?Feet ?Time ? MPH ?Flag RA ? 94 ? ? 56 resting RA ? 93 ? ? 66 walking, usual pace ? ?329 ?3.00 ?1.25 RA ? 95 ? ? 60 resting ? 1 min. post * RA = room air, NC2 = O2 by nasal cannula at 2 LPM, ? ? ?TT2=O2 by trans-tracheal catherter at 2 LPM, etc. DEVICES: None MEDICATIONS: Current Outpatient Prescriptions: amoxicillin (POLYMOX, AMOXIL) 500 mg capsule TAKE 4 TABLETS ONE HOUR BEFORE DENTAL WORK PARoxetine (PAXIL) 10 mg tablet Take 1 tablet by mouth once daily. LORazepam (ATIVAN) 0.5 mg tab Take 1 tablet by mouth as needed (at bedtime or as needed during the day) for up to 90 days. potassium chloride (K-TAB) 10 mEq tablet Take 10 mEq by mouth once daily. COMPOUNDED PRESCRIPTION Please perform nocturnal oximetry on RA. DME: [employer]. amiodarone (PACERONE) 200 mg tablet Take 1 tablet by mouth once daily. umeclidinium-vilanterol (ANORO ELLIPTA) 62.5-25 mcg/actuation inhaler Inhale one inhalation as instructed once daily warfarin (COUMADIN) 2 mg tablet Take 2 mg by mouth once daily. furosemide (LASIX) 40 mg tablet Take 1 tablet by mouth once daily. atenolol (TENORMIN) 50 mg tablet Take 0.5 tablets by mouth once daily. magnesium oxide (MAGOX) 400 mg tablet Take 1 tablet by mouth once daily. albuterol HFA (VENTOLIN HFA) 90 mcg/actuation inhaler Inhale 2 Puffs as instructed every 4 hours as needed for Wheezing/Shortness of Breath. Cholecalciferol, Vitamin D3, 1,000 unit cap Take 1 capsule by mouth once daily. GLUCOSAM SUL NA/CHONDR WEATHERS A NA (GLUCOSAMINE AND CHONDROIT SUL.NA ORAL) Take 1 tablet by mouth once daily. No current facility-administered medications for this visit. Is the patient currently on any anticoagulant medications: Yes: Anticoagulant medications the patient is currently on: Coumadin This was adequately stopped before surgery: Yes, per surgery PAIN AND ANXIETY EDUCATION AND MANAGEMENT: Patient has no concerns to address at this time. Additional Comments: None I have reviewed the Cardiothoracic Surgical Assessment and agree with its findings. During the course of the encounter the patient was prepared for anesthetic care. This conversation included anesthetic options, possible use of invasive monitoring, the risks, benefits, alternatives, and personnel that will be present for the anesthetic encounter. The patient agreed to proceed with the planned anesthetic. I instructed the patient to take amiodarone and atenolol with a small sip of water on the morning of surgery. BETA JHON COMPLIANCE: Is the Patient Scheduled for a CABG: No Jh Andersen MD Cardiothoracic Coding Spec [facility] Pager [phone] Referring Provider: JAMIE JO [[id number]] Allergies As of Date: 07/29/2018 Noted Allergy Reaction ZYLOPRIM (ALLOPURINOL) 05/26/2017 2 - Rash environmental [Other] 12/30/2005 5 - Intolerance Comments: rhinitis TRAMADOL 03/10/2016 14 - Other: See Comments Comments: made patient woozy/dizzy Date Reviewed: 07/29/2018 Reviewed by: Bhanu ([facility]) Alex - Fully Assessed Visit Diagnosis:Encounter for preoperative anesthesiology assessment for cardiac surgery [Z01.818] Prescriptions as of 07/29/2018 Sig: AMOXICILLIN 500 MG CAPSULE TAKE 4 TABLETS ONE HOUR BEFOR* PAROXETINE 10 MG TABLET Take 1 tablet by mouth once d* LORAZEPAM 0.5 MG TABLET Take 1 tablet by mouth as nee* POTASSIUM CHLORIDE ER 10 MEQ * Take 10 mEq by mouth once kodi* COMPOUNDED PRESCRIPTION Please perform nocturnal oxim* AMIODARONE 200 MG TABLET Take 1 tablet by mouth once d* UMECLIDINIUM 62.5 MCG-VILANTE* Inhale one inhalation as inst* WARFARIN 2 MG TABLET Take 2 mg by mouth once daily. FUROSEMIDE 40 MG TABLET Take 1 tablet by mouth once d* ATENOLOL 50 MG TABLET Take 0.5 tablets by mouth onc* MAGNESIUM OXIDE 400 MG (241.3* Take 1 tablet by mouth once d* ALBUTEROL SULFATE HFA 90 MCG/* Inhale 2 Puffs as instructed * CHOLECALCIFEROL (VITAMIN D3) * Take 1 capsule by mouth once * GLUCOSAMINE AND CHONDROIT SUL.N* Take 1 tablet by mouth once d* Problem List As Of Date 07/29/2018 Noted Resolved 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 IMPAIRED FASTING GLUCOSE [R73.01] INVALID FOR* Essential hypertension [I10] INVALID FOR* More... Osteoporosis [M81.0] INVALID FOR* More... Vitamin D Deficiency [E55.9] INVALID FOR* More... MR (mitral regurgitation) [I34.0] IBS (irritable bowel syndrome) [K58.9] More... 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 HOCM (hypertrophic obstructive cardiomyopathy) *INVALID FOR* Discharge planning issues [Z02.9] INVALID FOR* Priority: B More... Preop testing [Z01.818] INVALID FOR* Priority: A More... Encounter for preoperative anesthesiology asses*INVALID FOR* Encounter Status:Closed by CRISTHIAN FORTUNE,[facility] on 07/29/18 CONFIRM BLOOD TYPE Collected: 07/29/2018 Status: F Source: [place] 8:00 AM [facility] REPOSITORY TYPE CODE TESTS RESULT OUT OF REFERENCE UNITS RANGE LAB %ABR A ABO/RH(D) POSITIVE Performed By: #### CONABO #### [facility] [address] [place], [place] [address] CNOV Observed: 07/29/2018 Status: COMPLETED Source: [place] 8:00 AM [facility] REPOSITORY Office Visit (CARTMN) PRISCILLA SHARPE ([id number]) 1940 F Date Time Provider Department 07/29/18 8:00 AM [facility] PREOP [facility] CARTMN During your visit today, we recorded the following information about you: Temperature Pulse Respiration Blood pressure 97.9 degrees 80/minute 16/minute 118/68 Weight Height 68 kg 1.676 m Bhanu Osman APRN.CNP 07/29/2018 3:59 PM Signed CONSULT HISTORY and PHYSICAL CARDIOTHORACIC SURGERY Consulting Service: Cardiothoracic Surgery Requesting Provider: [facility] Podiatry Doctor, Jay Rich MD on 06/10/18. Opinion/advice regarding: Pre-Op Open Heart Surgery Cardiothoracic Physician: Jamie Jo M.D. NAME: Priscilla Sharpe HEIGHT: 162.6 cm WEIGHT: 68 kg Intended Procedure: myectomy , mitral valve repair and tissue valve if needed, pulmonary vein isolation and clipping of the left atrial appendage REDO: No STS SCORE: N/A Has this patient been previously evaluated for Open Heart Surgery for this condition? 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 She reports that she was experiencing shortness of breath 1-2 years ago and presented to her PCP and she was told that she had a heart murmur. She was referred to a educational administration teacher at that time and cardiac workup (echo, DANIEL and CXR) revealed evidence of HOCM. She was noted to have atrial fibrillation in 2017 and did have a cardioversion (successful) and started on coumadin at that time. She has a history of small cell lymphoma and is currently in remission (last dose of Chemo ~ 1 year ago). She follows with Dr. Alford in Hematology. She states her largest complaint is shortness of breath with exertion and activity (long walks, steps. Etc). She has been using oxygen at night for sleep (~ 2L) and has been following with her Wireless Development Manager regularly for COPD management. She has had issues with palpations in the past when she was in afib but not recently. She denies lightheadedness/dizziness/sycncope, chest pain and leg swelling when asked. 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 Monson follows for benign tumor removed 2002 - Unspecified essential hypertension 10/06/2008 PAST SURGICAL HISTORY: PAST SURGICAL HISTORY Procedure Laterality Date - PAST SURGICAL HISTORY OF 2003 tumor removed from bladder FAMILY HISTORY: FAMILY HISTORY Problem Relation Age of Onset - None Father - None Mother - other (Myocardial infarction) Paternal Grandmother 80 FAMILY HISTORY OF CAD: Yes SOCIAL HISTORY: Social History Substance Use Topics - Smoking status: Former Smoker Packs/day: 1.00 Years: 58.00 Types: Cigarettes Start date: 1955 Quit date: 07/02/2013 - Smokeless tobacco: Never Used Comment: No smoking in childhood home. Spouse quit smoking years before patient did. - Alcohol use Yes Comment: occasional SOCIAL HISTORY OF IVDU: No SOCIAL HISTORY OF Smoking: Yes SOCIAL HISTORY OF Alcohol Dependency: No MEDICATIONS: Prior to Admission Medications: PARoxetine (PAXIL) 10 mg tablet Take 1 tablet by mouth once daily. LORazepam (ATIVAN) 0.5 mg tab Take 1 tablet by mouth as needed (at bedtime or as needed during the day) for up to 90 days. potassium chloride (K-TAB) 10 mEq tablet Take 10 mEq by mouth once daily. amiodarone (PACERONE) 200 mg tablet Take 1 tablet by mouth once daily. umeclidinium-vilanterol (ANORO ELLIPTA) 62.5-25 mcg/actuation inhaler Inhale one inhalation as instructed once daily furosemide (LASIX) 40 mg tablet Take 1 tablet by mouth once daily. atenolol (TENORMIN) 50 mg tablet Take 0.5 tablets by mouth once daily. albuterol HFA (VENTOLIN HFA) 90 mcg/actuation inhaler Inhale 2 Puffs as instructed every 4 hours as needed for Wheezing/Shortness of Breath. amoxicillin (POLYMOX, AMOXIL) 500 mg capsule TAKE 4 TABLETS ONE HOUR BEFORE DENTAL WORK COMPOUNDED PRESCRIPTION Please perform nocturnal oximetry on RA. DME: [employer]. warfarin (COUMADIN) 2 mg tablet Take 2 mg by mouth once daily. magnesium oxide (MAGOX) 400 mg tablet Take 1 tablet by mouth once daily. Cholecalciferol, Vitamin D3, 1,000 unit cap Take 1 capsule by mouth once daily. GLUCOSAM SUL NA/CHONDR WEATHERS A NA (GLUCOSAMINE AND CHONDROIT SUL.NA ORAL) Take 1 tablet by mouth once daily. ALLERGIES: ALLERGIES Allergen Reactions - Zyloprim [Allopurin* Rash - Environmental [Othe* Intolerance rhinitis - Tramadol Other: See Comments made patient woozy/dizzy COMPLETE REVIEW OF SYSTEMS: (10) Constitutional: No weight loss, malaise or fevers/chills. HEENT: Negative for frequent or significant headaches, No changes in hearing or vision, no nose bleeds or other nasal problems, Negative for difficulty swallowing Resp: Negative for cough and wheezing and Positive for shortness of breath limiting daily activity and with exertion Cardiovascular: Negative for chest pain, leg swelling, palpitations, orthopnea and paroxysmal nocturnal dyspnea, Vascular: denies GI: Negative for abdominal discomfort, blood in stools or black stools or change in bowel habits : No history of dysuria, frequency, or incontinence and No difficulty urination, nocturia >1 times per night or hematuria. Positive for history of bladder tumor removal (outpatient procedure). Endo: Negative for cold or heat intolerance, polyuria, polydipsia and goiter Heme/Lymph: Negative for prolonged bleeding, bruising easily or swollen nodes and Positive for small cell lymphoma (currently in remission) Neurologic: No history or headaches, syncope, paralysis, seizures or tremors Integumentary: Negative for lesions and rash and Positive for itching (on arms - no rashes) Additional systems reviewed: Pain: Negative for pain, history of chronic pain, or current treatment for a chronic pain condition, Musculoskeletal: Negative for joint pain or swelling, back pain or muscle pain Psychiatric: Positive for anxiety PHYSICAL EXAM: (8) BP 118/68 (BP Site: Left Arm, BP Position: Sitting) Pulse 80 Temp 36.6 ?C (97.9 ?F) (Oral) Resp 16 Ht 167.6 cm (5' 6) Wt 68 kg (150 lb) SpO2 95% BMI 24.21 kg/m? Right Handed Constitutional: Well developed, Well nourished and No acute distress HEENT: PERRL, EOM's intact and Dentures FULL DENTURES Resp: Clear and Respiratory effort: normal Cardiovascular: Iregular rate AND rhythm (afib) and +3-4 pansystolic murmur Vascular: Pulses - Grade 2/4 distal bilateral pulses, no edema and No varicosities GI: Soft, Non-tender, Bowel sounds present and Non-distended Integumentary: Warm, Dry and No rash on chest, arms or legs Musculoskeletal: No joint deformities Neurological/Psychiatric: Oriented to time, place AND person , Alert and No gross focal neurologic deficits Additional systems reviewed: No additional systems reviewed Labs: Cholesterol, Total Test sent to [facility]. 09/03/2016 HDL Cholesterol Test sent to [facility]. 09/03/2016 LDL Cholesterol Test sent to [facility]. 09/03/2016 ABO/RH(D) Date Value Ref Range Status 07/29/2018 A POSITIVE Final Antibody Screen Date Value Ref Range Status 07/29/2018 NEG Final CBC: Recent Labs 07/29/18 0746 WBC 8.47 RBC 5.14 HB 12.8 HCT 41.4 PLT 294 MCV 80.5 MCH 24.9* MPV 10.1 Coags: Recent Labs 07/29/18 0746 INR 1.1 APTT 26.2 CMP: Recent Labs 07/29/18 0746 NA 142 K 3.9 CHLOR 96* CO2 28 BUN 29* CREAT 1.33* GLUC 114* TPROT 7.5 CA 9.8 TBILI 0.5 ALKPHOS 94 ALT 18 20 AST 18 ANION 18 DATA: I have personally reviewed the following data: Cardiac Catheterization: (outside) - images on syngo 11/30/17 DANIEL: 09/02/17 TTE: 06/10/18 CXR: 07/29 CT Chest: 07/17/17 Onia's: 07/15/18 Dental clearance: Cleared - See Scanned Document [id number]/[id number] Impression: This is a 78 year old year-old female, who is being evaluated for surgical intervention of hypertrophic obstructive cardiomyopathy and mitral insufficiency. In consideration for surgery, the patient's acute and chronic medical issues have been evaluated as documented above and reviewed in the electronic medical record. Plan: Patient will be seen today by the surgeon, Dr. Jamie Jo M.D.. If the patient is a surgical candidate according to criteria met, then advise the following: ? Bactroban, prescriptions and instructions given. ? Anticoagulation instructions: Last dose of Coumadin and OTC was on 07/24/18 ? Pre Op Instructions per protocol reviewed and handout given to patient . ? Patient Education completed and documented. ? Emotional support provided to patient and family. All questions and concerns adressed. ? Dr. Jo notified and aware of elevated sCr --> ok to proceed with surgery. Advanced directives are complete but patient left them at home - she has been instructed to bring the copy of DOS. Anticipated Discharge Needs: PT/OT/RT evalulation for anticipated Home Care needs vs acute rehab. These findings will be communicated back to the requesting provider electronically. SIGNATURE: Bhanu Osman APRN.[facility] PAGER: [phone] Date of Service: 07/29/2018 Time of Service: 8:30 AM Referring Provider: JAMIE JO [[id number]] Allergies As of Date: 07/29/2018 Noted Allergy Reaction ZYLOPRIM (ALLOPURINOL) 05/26/2017 2 - Rash environmental [Other] 12/30/2005 5 - Intolerance Comments: rhinitis TRAMADOL 03/10/2016 14 - Other: See Comments Comments: made patient woozy/dizzy Date Reviewed: 07/29/2018 Reviewed by: Bhanu ([facility]) Alex - Fully Assessed Primary Visit Diagnosis:HOCM (hypertrophic obstructive cardiomyopathy) ([facility]) [I42.1] Other Visit Diagnoses:Preop testing [Z01.818] Discharge planning issues [Z02.9] PAF (paroxysmal atrial fibrillation) ([facility]) [I48.0] Non-rheumatic mitral regurgitation [I34.0] Order(s):CBC [SQCBC] Order #: [id number] FUTURE COMP METABOLIC PANEL [SQCMP] Order #: [id number] FUTURE mupirocin (BACTROBAN) 2 % ointmentApply twice the day before surgery, and once in the morning before surgery.Disp: 1 TubeRfl: 0 Prescriptions as of 07/29/2018 Sig: PAROXETINE 10 MG TABLET Take 1 tablet by mouth once d* LORAZEPAM 0.5 MG TABLET Take 1 tablet by mouth as nee* POTASSIUM CHLORIDE ER 10 MEQ * Take 10 mEq by mouth once kodi* AMIODARONE 200 MG TABLET Take 1 tablet by mouth once d* UMECLIDINIUM 62.5 MCG-VILANTE* Inhale one inhalation as inst* FUROSEMIDE 40 MG TABLET Take 1 tablet by mouth once d* ATENOLOL 50 MG TABLET Take 0.5 tablets by mouth onc* ALBUTEROL SULFATE HFA 90 MCG/* Inhale 2 Puffs as instructed * MUPIROCIN 2 % TOPICAL OINTMENT Apply twice the day before weathers* AMOXICILLIN 500 MG CAPSULE TAKE 4 TABLETS ONE HOUR BEFOR* COMPOUNDED PRESCRIPTION Please perform nocturnal oxim* WARFARIN 2 MG TABLET Take 2 mg by mouth once daily. MAGNESIUM OXIDE 400 MG (241.3* Take 1 tablet by mouth once d* CHOLECALCIFEROL (VITAMIN D3) * Take 1 capsule by mouth once * GLUCOSAMINE AND CHONDROIT SUL.N* Take 1 tablet by mouth once d* Problem List As Of Date 07/29/2018 Noted Resolved 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 IMPAIRED FASTING GLUCOSE [R73.01] INVALID FOR* Essential hypertension [I10] INVALID FOR* More... Osteoporosis [M81.0] INVALID FOR* More... Vitamin D Deficiency [E55.9] INVALID FOR* More... MR (mitral regurgitation) [I34.0] IBS (irritable bowel syndrome) [K58.9] More... 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 HOCM (hypertrophic obstructive cardiomyopathy) *INVALID FOR* Discharge planning issues [Z02.9] INVALID FOR* Priority: B More... Preop testing [Z01.818] INVALID FOR* Priority: A More... Encounter for preoperative anesthesiology asses*INVALID FOR* Prescriptions ordered this encounter Disp Refills Start End MUPIROCIN 2 % TOPICAL OINTMENT 1 Tu* 0 07/29/2018 Sig: Apply twice the day before surgery, and once in the morning before surgery. Encounter Status:Closed by BHANU OSMAN CNP on 07/29/18 PROTIME Collected: 07/29/2018 Status: F Source: [place] 7:46 AM [facility] REPOSITORY TYPE CODE TESTS RESULT OUT OF RANGE REFERENCE UNITS LAB PSEC 9.7-13.0 sec PT Sec 11.9 LAB INR 0.9-1.3 PT INR 1.1 Result Comment: Vitamin K Antagonist (VKA) Therapeutic Range: INR 2 to 3 (Target INR of 2.5) Note: For patients treated with VKA drugs, such as warfarin, the [place] [employer] 2012 Guideline recommends a therapeutic INR range of 2 to 3 (target INR of 2.5). This recommendation includes high-risk patients with antiphospholipid syndrome with previous arterial or venous thromboembolism, current-generation mechanical or bioprosthetic aortic heart valve replacement. Note: Patients with mechanical aortic valve replacement and additional risk factors for thromboembolic events (atrial fibrillation, previous thromboembolism, LV dysfunction, hypercoagulable conditions) or an older generation mechanical AVR (i.e., ball in-Cage) or any mechanical MVR should have a INR therapeutic range of 2.5 to 3.5 (target INR of 3). Toni GH, et al. Chest 2012, 141:7S-47S Lilli RA, et al. [facility] 2017, 70: 252-289 Performed By: #### PT, PTT, LD6 #### [facility] [address] [address] APTT Collected: 07/29/2018 Status: F Source: [place] 7:46 AM [facility] REPOSITORY TYPE CODE TESTS RESULT OUT OF RANGE REFERENCE UNITS LAB APTT 23.0-32.4 sec APTT 26.2 Result Comment: Unfractionated Heparin Therapeutic Ranges: Standard Heparin Nomogram: 53 to 78 seconds (anti-Xa level of 0.3 to 0.7 U/ml) Low Dose/ACS Nomogram: 49 to 67 seconds (anti-Xa level of 0.2 to 0.5 U/ml) Stroke Treatment Nomogram: 49 to 67 seconds (anti-Xa level of 0.2 to 0.5 U/ml) Note: The APTT therapeutic range has been determined for the current lot of laboratory APTT reagent in use throughout the [facility]. Performed By: #### PT, PTT, LD6 #### [facility] [address] [place], [place] [address] LD Collected: 07/29/2018 Status: F Source: [facility] 7:46 AM [place] REPOSITORY TYPE CODE TESTS RESULT OUT OF RANGE REFERENCE UNITS LAB LD 135-214 U/L High LD 222 Performed By: #### PT, PTT, LD6 #### [facility] [address] [place], [place] [address] COMP METABOLIC PANEL Collected: 07/29/2018 Status: F Source: [place] 7:46 AM [facility] [place] REPOSITORY TYPE CODE TESTS RESULT OUT OF REFERENCE UNITS RANGE LAB TP 6.3-8.0 g/dL Protein, Total 7.5 LAB ALB 3.9-4.9 g/dL Albumin 4.6 LAB CA 8.5-10.2 mg/dL Calcium, Total 9.8 LAB TBIL 0.2-1.3 mg/dL Bilirubin, Total 0.5 LAB ALKP 34-123 U/L Alkaline Phosphatase 94 LAB AST 13-35 U/L AST 18 LAB GLU 74-99 mg/dL Glucose High 114 Result Comment: The [place] [employer] (ADA) provides guidance for cutoff values for fasting glucose and random glucose. The ADA defines fasting as no caloric intake for at least 8 hours. Fas ting plasma glucose results between 100 to 125 mg/dL indicate increased risk for diabetes (prediabetes). Fasting plasma glucose results greater than or equal to 126 mg/dL meet the criteria for diagnosis of diabetes. In the absence of unequivocal hyperglycemia, results should be confirmed by repeat testing. In a patient with classic symptoms of hyperglycemia or hyperglycemic crisis, random plasma glucose results greater than or equal to 200 mg/dL meet the criteria for diagnosis of diabetes. Reference: Standards of Medical Care in Diabetes 2016, [place] [employer] Association. Diabetes Care. 2016.39(Suppl 1). LAB BUN 7-21 mg/dL BUN High 29 LAB CRET 0.58-0.96 mg/dL Creatinine High 1.33 LAB NA 136-144 mmol/L Sodium 142 LAB K 3.7-5.1 mmol/L Potassium 3.9 LAB CL 97-105 mmol/L Low Chloride 96 LAB CO2 22-30 mmol/L CO2 28 LAB AGAP 9-18 mmol/L Anion Gap 18 LAB ALT 7-38 U/L ALT 20 LAB GFRAA eGFR- Amer. 47 LAB GFRNAA . eGFR-All Other Races 38 Result Comment: eGFR (Estimated GFR) Units of measure: mL/min/1.73 meters squared eGFR is derived from the reexpressed MDRD Study equation using the following parameters: serum creatinine, age, gender and race. The creatinine assay has been calibrated to be traceable to IDMS. An eGFR <60 mL/min/1.73m2 for >3 months is consistent with chronic kidney disease. Refer to KDOQI guidelines for clinical interpretation. In patients with unstable renal function, e.g. those with acute kidney injury, the eGFR may not accurately reflect actual GFR. Performed By: #### CMP, CBC #### [facility] [address] [id number] CBC Collected: 07/29/2018 Status: F Source: [place] 7:46 AM [facility] REPOSITORY TYPE CODE TESTS RESULT OUT OF REFERENCE UNITS RANGE LAB WBC 3.70-11.00 k/uL WBC 8.47 LAB RBC 3.90-5.20 m/uL RBC 5.14 LAB HGB 11.5-15.5 g/dL Hemoglobin 12.8 LAB HCT 36.0-46.0 % Hematocrit 41.4 LAB MCV 80.0-100.0 fL MCV 80.5 LAB MCH 26.0-34.0 pG Low MCH 24.9 LAB MCHC 30.5-36.0 g/dL MCHC 30.9 LAB RDWCV 11.5-15.0 % RDW-CV High 15.8 LAB PLTCT 150-400 k/uL Platelet Count 294 LAB MPV 9.0-12.7 fL MPV 10.1 LAB ABSNUC <0.01 k/uL Absolute nRBC <0.01 Performed By: #### CMP, CBC #### [facility] [address] [address] ALT Collected: 07/29/2018 Status: F Source: [place] 7:46 AM [facility] REPOSITORY TYPE CODE TESTS RESULT OUT OF RANGE REFERENCE UNITS LAB ALT 7-38 U/L ALT 18 Performed By: #### ALT, TSH #### [place] [address] TSH Collected: 07/29/2018 Status: F Source: [place] 7:46 AM [facility] REPOSITORY TYPE CODE TESTS RESULT OUT OF RANGE REFERENCE UNITS LAB TSH 0.400-5.500 uU/mL TSH 1.920 Performed By: #### ALT, TSH #### [address] [address] TYPE AND SCR (30D) Collected: 07/29/2018 Status: F Source: [place] 7:46 AM [facility] REPOSITORY TYPE CODE TESTS RESULT OUT OF REFERENCE UNITS RANGE LAB %ABR A ABO/RH(D) POSITIVE LAB % Antibody NEG Screen Performed By: #### [id number] #### [place] [address] CNCNPATED Observed: 07/29/2018 Status: COMPLETED Source: [place] 12:00 AM [facility] REPOSITORY Education (CARTMN) PRISCILLA SHARPE ([id number]) 1940 F Date Time Provider Department 07/29/18 BHANU OSMAN ([facility]) ROHITMN Reason for Visit: Patient Education [91] Progress Notes: Bhanu Osman APRN.CNP 07/29/2018 10:19 AM Signed AMBULATORY PATIENT EDUCATION READINESS TO LEARN Cognitive Ability: Alert and oriented Motivation To Learn: Interested Family Support: High - Very involved in pt care Instruction Provided To: Patient AND Family Patient Learns Best By: Multiple Methods Factors Affecting Learning: None Physical Limitations Affecting Learning: None LEARNING RESPONSE Diagnosis: hypertrophic obstructive cardiomyopathy / mitral regurgitation Education Topic: Pre-Op Open Heart Surgery Instructions Teaching Points: Logistics / Protocols /Complication Prevention Instruction/Supplemental Materials: Cardiac Surgery Information Binder, Video, Individual Instruction Patient/Family Response: Verbalizes understanding Follow up plan: Patient/Family to call [facility] with any further questions Referral (Recommendation): None Teach completed, topic: Bactroban instructions given During your visit today, we recorded the following information about you: Allergies As of Date: 07/29/2018 Noted Allergy Reaction ZYLOPRIM (ALLOPURINOL) 05/26/2017 2 - Rash environmental [Other] 12/30/2005 5 - Intolerance Comments: rhinitis TRAMADOL 03/10/2016 14 - Other: See Comments Comments: made patient woozy/dizzy Date Reviewed: 07/29/2018 Reviewed by: Bhanu (Jeremías) Alex - Fully Assessed Prescriptions as of 07/29/2018 Sig: AMOXICILLIN 500 MG CAPSULE TAKE 4 TABLETS ONE HOUR BEFOR* PAROXETINE 10 MG TABLET Take 1 tablet by mouth once d* LORAZEPAM 0.5 MG TABLET Take 1 tablet by mouth as nee* POTASSIUM CHLORIDE ER 10 MEQ * Take 10 mEq by mouth once kodi* COMPOUNDED PRESCRIPTION Please perform nocturnal oxim* AMIODARONE 200 MG TABLET Take 1 tablet by mouth once d* UMECLIDINIUM 62.5 MCG-VILANTE* Inhale one inhalation as inst* WARFARIN 2 MG TABLET Take 2 mg by mouth once daily. FUROSEMIDE 40 MG TABLET Take 1 tablet by mouth once d* ATENOLOL 50 MG TABLET Take 0.5 tablets by mouth onc* MAGNESIUM OXIDE 400 MG (241.3* Take 1 tablet by mouth once d* ALBUTEROL SULFATE HFA 90 MCG/* Inhale 2 Puffs as instructed * CHOLECALCIFEROL (VITAMIN D3) * Take 1 capsule by mouth once * GLUCOSAMINE AND CHONDROIT SUL.N* Take 1 tablet by mouth once d* Encounter Status:Closed by BHANU OSMAN CNP on 07/29/18 PROGRESS Observed: 07/15/2018 Status: COMPLETED Source: [place] 1:33 PM [facility] [place] REPOSITORY O ID: [id number] Author: Aaliyah Stone Service: (none) Author Type: Physician Financial Operations Analyst Type: Progress Notes Filed: 07/15/2018 1:59 PM Note Text: [facility] [place], 07/15/18: HPI: The patient is here for follow up of COPD. PMH: HTN, Diastolic CHF, MVP, Hyperlipidemia, A Fib, Hypertrophic Obstructive Cardiomyopathy, Small cell lymphoma s/p chemotherapy. Former smoker, quit 2012. 58 pack years. The last Pulmonary Clinic visit was 06/03/18 at which time I started Augmentin and Prednisone. Patient completed both courses and felt much better. Since then the patient has not required ED care for exacerbation. There has been no hospital admission for exacerbation. Claims to be consistently compliant with prescribed maintenance Rx. Uses rescue bronchodilator at night. Productive cough improved after treatment. Sputum yellow in color. No hemoptysis. No pleuritic chest pain. No wheezing. No dyspnea at rest. Exertional dyspnea has not changed. Wearing 2 L supplemental oxygen at night. DME: [employer]. PMH: Updated with patient today. FAMH: Updated with patient today. SOCH: Updated with patient today. Immunization History Administered Date(s) Administered Influenza Seasonal - High Dose - Age 65+ 08/23/2013 08/18/2017 Influenza Seasonal Inj Age 3+ 07/17/2015 Influenza Vaccine, Split-Non Spec 07/17/2012 Pneumococcal-13 Vac Conjugate 09/01/2015 Pneumovax 06/13/2010 TD Adult 11/02/1994 07/19/2012 ROS: General: Generally feels good. Appetite good. Weight stable. Eyes, Ears, nose, throat: No post nasal drip, rhinorrhea, purulent nasal discharge, epistaxis. No hoarseness. Vision stable. Cardiac: No angina, edema, orthopnea. GI: No heartburn, dysphagia. 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 Musculoskeletal: No pain. Neuro: No headache, focal weakness, tremor. Skin: No rash. Otherwise negative. Allergies were reviewed and updated, and medications were reconciled with the patient. PHYSICAL EXAMINATION: BP 102/62 Pulse 56 Resp 16 Ht 5' 6 (1.68m) Wt 150 lb (68.0kg) SpO2 95% BMI 24.22 kg/(m2). Gen: No acute distress. Cooperative with examination. ENT: Oral hygeine and dentition good. Pharynx clear. No halitosis. Resp: No stridor, accessory respiratory muscle use, supra- sternal or intercostal retractions. No wheezes, crackles. CV: Regular rythm. Murmur noted. Radial pulses normal. Abd: Non distended. MSK: No kyphoscoliosis. Ext: Warm and well perfused. No clubbing, cyanosis,edema. Skin: No rash, ecchymoses. Neuro: Mental status normal. Affect normal. No tremor. DATA REVIEW: DATE: 07/15/18 04/12/18 10/16/17 07/02/17 FVC 2.44 (88 % pred) 2.46?(84?% pred) 2.67?(90?% pred) 2.60?(96?% pred) FEV1 1.28 (62 % pred) 1.47?(67?% pred) 1.58?(71?% pred) 1.39?(69?% pred) FEV1/FVC 0.52 0.60 0.59 0.54 ? Oximetry, 07/15/18 InspO2* ? SpO2% ? ? HR Activity ?Feet ?Time ? MPH ?Flag RA ? 94 ? ? 56 resting RA ? 93 ? ? 66 walking, usual pace ? ?329 ?3.00 ?1.25 RA ? 95 ? ? 60 resting ? 1 min. post * RA = room air, NC2 = O2 by nasal cannula at 2 LPM, ? ? ?TT2=O2 by trans-tracheal catherter at 2 LPM, etc. IMPRESSION/RECOMMEND: COPD, moderate, decreased FEV1 today. Patient does not want to change medications prior to upcoming surgery. 1. I re-addressed the pathophysiology of chronic bronchitis, emphysema, and COPD; and reviewed the management of this condition as outlined in the GOLD and ATS guidelines, including: smoking cessation, Pneumococcal and annual Influenza vaccination, bronchodilators, inhaled corticosteroids, antibiotics, exercise/rehabilitation, and oxygen. 2. I also again discussed mechanisms of action of medications, alternatives, and potential side effects of treatment. 3. Continue current maintenance Rx at this time. Will re-assess after cardiac surgery. 4. Based on oximetry today, you do not require supplemental oxygen with rest or exertion. [place] [facility] 5. Continue rescue inhaler as needed for relief of shortness of breath or wheezing, up to 4 times daily. 6. Re-assess in 3 months, sooner if needed. Mitral Valve prolapse, severe. 1. Surgery scheduled on 07/30/18. I addressed the questions of the patient, and she expressed understanding and acceptance of my answers. Aaliyah Stone PA-C [address] [id number] CNOV Observed: 07/15/2018 Status: COMPLETED Source: [place] 1:30 PM [facility] REPOSITORY Office Visit (PULMWS) PRISCILLA SHARPE ([id number]) 1940 F Date Time Provider Department 07/15/18 1:30 PM AALIYAH STONE During your visit today, we recorded the following information about you: Pulse Respiration Blood pressure Weight 56/minute 16/minute 102/62 68 kg Height 1.676 m Inga Rodriguez WENDI 07/15/2018 1:22 PM Signed Intake information documented in the prior visit with Yari Iglesias, DOMINIQUE today. Aaliyah Stone PA-C 07/15/2018 1:[address] [facility], 07/15/18: HPI: The patient is here for follow up of COPD. PMH: HTN, Diastolic CHF, MVP, Hyperlipidemia, A Fib, Hypertrophic Obstructive Cardiomyopathy, Small cell lymphoma s/p chemotherapy. Former smoker, quit 2012. 58 pack years. The last Pulmonary Clinic visit was 06/03/18 at which time I started Augmentin and Prednisone. Patient completed both courses and felt much better. Since then the patient has not required ED care for exacerbation. There has been no hospital admission for exacerbation. Claims to be consistently compliant with prescribed maintenance Rx. Uses rescue bronchodilator at night. Productive cough improved after treatment. Sputum yellow in color. No hemoptysis. No pleuritic chest pain. No wheezing. No dyspnea at rest. Exertional dyspnea has not changed. Wearing 2 L supplemental oxygen at night. DME: [employer]. PMH: Updated with patient today. FAMH: Updated with patient today. SOCH: Updated with patient today. Immunization History Administered Date(s) Administered Influenza Seasonal - High Dose - Age 65+ 08/23/2013 08/18/2017 Influenza Seasonal Inj Age 3+ 07/17/2015 Influenza Vaccine, Split-Non Spec 07/17/2012 Pneumococcal-13 Vac Conjugate 09/01/2015 Pneumovax 06/13/2010 TD Adult 11/02/1994 07/19/2012 ROS: General: Generally feels good. Appetite good. Weight stable. Eyes, Ears, nose, throat: No post nasal drip, rhinorrhea, purulent nasal discharge, epistaxis. No hoarseness. Vision stable. Cardiac: No angina, edema, orthopnea. GI: No heartburn, dysphagia. 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 Musculoskeletal: No pain. Neuro: No headache, focal weakness, tremor. Skin: No rash. Otherwise negative. Allergies were reviewed and updated, and medications were reconciled with the patient. PHYSICAL EXAMINATION: BP 102/62 Pulse 56 Resp 16 Ht 5' 6 (1.68m) Wt 150 lb (68.0kg) SpO2 95% BMI 24.22 kg/(m2). Gen: No acute distress. Cooperative with examination. ENT: Oral hygeine and dentition good. Pharynx clear. No halitosis. Resp: No stridor, accessory respiratory muscle use, supra- sternal or intercostal retractions. No wheezes, crackles. CV: Regular rythm. Murmur noted. Radial pulses normal. Abd: Non distended. MSK: No kyphoscoliosis. Ext: Warm and well perfused. No clubbing, cyanosis,edema. Skin: No rash, ecchymoses. Neuro: Mental status normal. Affect normal. No tremor. DATA REVIEW: DATE: 07/15/18 04/12/18 10/16/17 07/02/17 FVC 2.44 (88 % pred) 2.46?(84?% pred) 2.67?(90?% pred) 2.60?(96?% pred) FEV1 1.28 (62 % pred) 1.47?(67?% pred) 1.58?(71?% pred) 1.39?(69?% pred) FEV1/FVC 0.52 0.60 0.59 0.54 ? Oximetry, 07/15/18 InspO2* ? SpO2% ? ? HR Activity ?Feet ?Time ? MPH ?Flag RA ? 94 ? ? 56 resting RA ? 93 ? ? 66 walking, usual pace ? ?329 ?3.00 ?1.25 RA ? 95 ? ? 60 resting ? 1 min. post * RA = room air, NC2 = O2 by nasal cannula at 2 LPM, ? ? ?TT2=O2 by trans-tracheal catherter at 2 LPM, etc. IMPRESSION/RECOMMEND: COPD, moderate, decreased FEV1 today. Patient does not want to change medications prior to upcoming surgery. 1. I re-addressed the pathophysiology of chronic bronchitis, emphysema, and COPD; and reviewed the management of this condition as outlined in the GOLD and ATS guidelines, including: smoking cessation, Pneumococcal and annual Influenza vaccination, bronchodilators, inhaled corticosteroids, antibiotics, exercise/rehabilitation, and oxygen. 2. I also again discussed mechanisms of action of medications, alternatives, and potential side effects of treatment. 3. Continue current maintenance Rx at this time. Will re-assess after cardiac surgery. 4. Based on oximetry today, you do not require supplemental oxygen with rest or exertion. [place] [facility] 5. Continue rescue inhaler as needed for relief of shortness of breath or wheezing, up to 4 times daily. 6. Re-assess in 3 months, sooner if needed. Mitral Valve prolapse, severe. 1. Surgery scheduled on 07/30/18. I addressed the questions of the patient, and she expressed understanding and acceptance of my answers. Aaliyah Stone PA-C [facility] [place] [facility] [place] [address] [place] [id number] Aaliyah Stone PA-C 07/15/2018 1:58 PM Signed COPD, moderate, decreased FEV1 today. 1. I re-addressed the pathophysiology of chronic bronchitis, emphysema, and COPD; and reviewed the management of this condition as outlined in the GOLD and ATS guidelines, including: smoking cessation, Pneumococcal and annual Influenza vaccination, bronchodilators, inhaled corticosteroids, antibiotics, exercise/rehabilitation, and oxygen. 2. I also again discussed mechanisms of action of medications, alternatives, and potential side effects of treatment. 3. Continue current maintenance Rx at this time. Will re-assess after cardiac surgery. 4. Based on oximetry today, you do not require supplemental oxygen with rest or exertion. Will obtain nocturnal oxygen from [employer]. 5. Continue rescue inhaler as needed for relief of shortness of breath or wheezing, up to 4 times daily. 6. Re-assess in 3 months, sooner if needed. Mitral Valve prolapse, severe. 1. Surgery scheduled on 07/30/18. Referring Provider: AALIYAH STONE [[id number]] Allergies As of Date: 07/15/2018 Noted Allergy Reaction ZYLOPRIM (ALLOPURINOL) 05/26/2017 2 - Rash environmental [Other] 12/30/2005 5 - Intolerance Comments: rhinitis TRAMADOL 03/10/2016 14 - Other: See Comments Comments: made patient woozy/dizzy Date Reviewed: 07/15/2018 Reviewed by: Aaliyah Stone - Fully Assessed Reason for Visit: Established Patient [175] Cmt: 6 week follow up COPD Primary Visit Diagnosis:Moderate COPD (chronic obstructive pulmonary disease) ([facility]) [J44.9] Prescriptions as of 07/15/2018 Sig: AMOXICILLIN 500 MG CAPSULE TAKE 4 TABLETS ONE HOUR BEFOR* PAROXETINE 10 MG TABLET Take 1 tablet by mouth once d* LORAZEPAM 0.5 MG TABLET Take 1 tablet by mouth as nee* POTASSIUM CHLORIDE ER 10 MEQ * Take 10 mEq by mouth once kodi* COMPOUNDED PRESCRIPTION Please perform nocturnal oxim* AMIODARONE 200 MG TABLET Take 1 tablet by mouth once d* UMECLIDINIUM 62.5 MCG-VILANTE* Inhale one inhalation as inst* WARFARIN 2 MG TABLET Take 2 mg by mouth once daily. FUROSEMIDE 40 MG TABLET Take 1 tablet by mouth once d* ATENOLOL 50 MG TABLET Take 0.5 tablets by mouth onc* MAGNESIUM OXIDE 400 MG (241.3* Take 1 tablet by mouth once d* ALBUTEROL SULFATE HFA 90 MCG/* Inhale 2 Puffs as instructed * CHOLECALCIFEROL (VITAMIN D3) * Take 1 capsule by mouth once * GLUCOSAMINE AND CHONDROIT SUL.N* Take 1 tablet by mouth once d* Problem List As Of Date 07/15/2018 Noted Resolved 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 IMPAIRED FASTING GLUCOSE [R73.01] INVALID FOR* Essential hypertension [I10] INVALID FOR* More... Osteoporosis [M81.0] INVALID FOR* More... Vitamin D Deficiency [E55.9] INVALID FOR* More... MR (mitral regurgitation) [I34.0] IBS (irritable bowel syndrome) [K58.9] More... 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 HOCM (hypertrophic obstructive cardiomyopathy) *INVALID FOR* Other instructions from your clinician: COPD, moderate, decreased FEV1 today. 1. I re-addressed the pathophysiology of chronic bronchitis, emphysema, and COPD; and reviewed the management of this condition as outlined in the GOLD and ATS guidelines, including: smoking cessation, Pneumococcal and annual Influenza vaccination, bronchodilators, inhaled corticosteroids, antibiotics, exercise/rehabilitation, and oxygen. 2. I also again discussed mechanisms of action of medications, alternatives, and potential side effects of treatment. 3. Continue current maintenance Rx at this time. Will re-assess after cardiac surgery. 4. Based on oximetry today, you do not require supplemental oxygen with rest or exertion. [place] [facility] 5. Continue rescue inhaler as needed for relief of shortness of breath or wheezing, up to 4 times daily. 6. Re-assess in 3 months, sooner if needed. Mitral Valve prolapse, severe. 1. Surgery scheduled on 07/30/18. Visit Notes: >> Inga Perez Jul 15, 2018 1:10 PM Status: Signed Intake information documented in the prior visit with Yari Iglesias CRT today. Disposition: Return in about 3 months (around 10/14/2018). Follow-up and Disposition History Recorded Encounter Status:Closed by AALIYAH STONE on 07/15/18 PROTHROMBIN TIME W/INR Collected: 07/09/2018 Status: F Source: [place] 9:27 AM [facility] REPOSITORY TYPE CODE TESTS RESULT OUT OF RANGE REFERENCE UNITS LAB L300.4150 11.7-14.9 SECONDS High PROTIME 26.2 LAB L300.4200 Normal INR 2.4 Performed By: #### L300.3900 #### [facility] [address] [place], [address] PROTIME Collected: 07/09/2018 Status: F Source: [place] 9:27 AM [facility] REPOSITORY TYPE CODE TESTS RESULT OUT OF REFERENCE UNITS RANGE LAB PSEC 9.7-13.0 sec Test PT sent to [facility]. Result Comment: Account Credited LAB INR 0.9-1.3 Test sent to PT INR [facility]. Result Comment: Account Credited PROGRESS Observed: 07/07/2018 Status: COMPLETED Source: [place] 4:37 PM [facility] REPOSITORY HNO ID: [id number] Author: Portia Theodore RN Service: (none) Author Type: (none) Type: Progress Notes Filed: 07/07/2018 4:37 PM Note Text: per written orders by dr pacheco patient is to hold coumadin today and tomorrow and recheck inr stat at the lab Thursday morning. PATIENT NOTIFIED OF INFORMATION PROGRESS Observed: 07/07/2018 Status: COMPLETED Source: [place] 4:00 PM [facility] REPOSITORY HNO ID: [id number] Author: Sheryl Puga LPN Service: (none) Author Type: (none) Type: Progress Notes Filed: 07/07/2018 4:37 PM Note Text: Patient calling back to get coumadin instructions, she remembered she put two bottles of coumadin together 2 mg and 5 mg, so thinks she took 5 mg by mistake few times. Explained to her do not take any coumadin and office will call back with instructions. PROGRESS Observed: 07/07/2018 Status: COMPLETED Source: [place] 12:02 PM [facility] REPOSITORY HNO ID: [id number] Author: Portia Theodore RN Service: (none) Author Type: (none) Type: Progress Notes Filed: 07/07/2018 12:05 PM Note Text: patient had inr completed at [facility] patients inr is 5.4 (patients inr rangeis 2.0-3.0) patient is currently taking 1mg daily patients last dose change was on 07/01/18 due to a high level of 3.4 (dose at that time was 1mg Mon,Wed,Thu and 2mg all other days) patient has had no changes in medication except for coumadin and no uninstructed missed doses and no change in diet FYI - patient has been instructed to hold coumadin until contacted, also patient is scheduled for Thursday for a tooth extraction and will need to know about keeping this appt or cancelling it Advised patient that they would be contacted regarding medication dose and when to follow up after information is reviewed by provider. After provider review please contact the patient with information and schedule follow up appointment with coumadin clinic. PROGRESS Observed: 07/01/2018 Status: COMPLETED Source: [place] 3:10 PM [facility] REPOSITORY HNO ID: [id number] Author: Avelina Polanco LPN Service: (none) Author Type: (none) Type: Progress Notes Filed: 07/01/2018 4:19 PM Note Text: Patient called back and information given on what to do with her coumadin. She is having a tooth pulled and her dentist needed coumadin instructions listed below to give her a date. She will contact office back with date and then instructions on what to do with her coumadin. She was told this will need to be stopped before tooth can be pulled. Avelina Polanco LPN PROGRESS Observed: 07/01/2018 Status: COMPLETED Source: [place] 3:10 PM [facility] REPOSITORY HNO ID: [id number] Author: Avelina Polanco CODING COMPLIANCE SPECIALIST Service: (none) Author Type: (none) Type: Progress Notes Filed: 07/01/2018 4:19 PM Note Text: This note was created using Epic Sciencesriter. Subjective Priscilla Sharpe is a 78 year old female. Review of Systems Objective There were no vitals taken for this visit. Physical Exam Assessment and Plan PROGRESS Observed: 07/01/2018 Status: COMPLETED Source: [place] 2:48 PM [facility] REPOSITORY HNO ID: [id number] Author: Sheryl Puga CODING COMPLIANCE SPECIALIST Service: (none) Author Type: (none) Type: Progress Notes Filed: 07/01/2018 4:19 PM Note Text: Phoned patient and left message to return call and ask to speak to a nurse for coumadin instructions. PROGRESS Observed: 07/01/2018 Status: COMPLETED Source: [place] 2:26 PM [facility] REPOSITORY HNO ID: [id number] Author: Jerad Bales ([place]ns) Service: (none) Author Type: Nurse Specialist Type: Progress Notes Filed: 07/01/2018 4:19 PM Note Text: If target INR is 2-3 Hold coumadin today Then coumadin 1 mg daily for one week Recheck INR in one week. PROGRESS Observed: 07/01/2018 Status: COMPLETED Source: [place] 12:41 PM [facility] REPOSITORY HNO ID: [id number] Author: Portia Theodore RN Service: (none) Author Type: (none) Type: Progress Notes Filed: 07/01/2018 12:44 PM Note Text: patient had inr completed at [facility] patients inr is 3.4 (patients inr range is 2.0-3.0) patient is currently taking 1mg Mon,Wed,Fri and 2mg all other days patients last dose change was on 05/19/18 due to a high level of 3.5 (dose at that time was 1mg Tu,Th and 2mg all other days) patient has had no changes in medication and no uninstructed missed doses and no change in diet FYI - at check last week on 06/23/18 patients inr was high at 3.3 - pt was instructed to hold 1 dose and then resume regimen - also patient is going to be scheduling to have a tooth pulled and will be calling in to let us know when that is scheduled so office can advise on when to and to schedule inr 1 day before procedure to make sure inr level is low enough for the procedure Advised patient that they would be contacted regarding medication dose and when to follow up after information is reviewed by provider. After provider review please contact the patient with information and schedule follow up appointment with coumadin clinic. FYI - patient has been scheduled for a 1 week follow up in on 07/07/18 CHARO Observed: 06/30/2018 Status: COMPLETED Source: [place] 12:00 AM [facility] REPOSITORY Telephone (CAWSTR) PRISCILLA SHARPE ([id number]) 1940 F Date Time Provider Department 06/30/18 BRANDON ARGUETA CAWSTR During your visit today, we recorded the following information about you: Anand Mejía RN 06/30/2018 1:37 PM Signed Paper from [facility] [employer] placed in box to sign Anand Argueta MD 06/30/2018 2:11 PM Addendum Noted. Have her come in for INR. Brandon Argueta MD The following approved medication requests have been transmitted electronically. Signed Prescriptions Disp Refills amoxicillin (POLYMOX, AMOXIL) 500 mg capsule 4 capsule 3 Sig: TAKE 4 TABLETS ONE HOUR BEFORE DENTAL WORK Authorizing Provider: BRANDON ARGUETA MD Janel Wilson RN 06/30/2018 2:30 PM Signed Patient notified of results and provider's instructions. Patient verbalizes understanding. Anand Mejía RN 06/30/2018 2:38 PM Signed Pt called, verified by name and birthdate. Pt states she has apt at coumadin clinic tomorrow. Pt concerned about being on coumadin for procedure. Please advise Anand Mejía RN 06/30/2018 2:38 PM Signed Paper faxed to [facility] with confirmation Anand Mejía RN 06/30/2018 2:50 PM Signed Pt called, verified by name and birthdate. Pt states she wants to make sure Dr. Argueta knows dental procedure is not an emergency Anand Mejía RN 07/01/2018 3:34 PM Signed [facility] called, asking about pt's INR. Looked into pt's chart and seen that Jerad ALVARES is responding to pt's INR. Transferred [facility] to Dr. Pacheco's office Anand Mejía RN Allergies As of Date: 06/30/2018 Noted Allergy Reaction ZYLOPRIM (ALLOPURINOL) 05/26/2017 2 - Rash environmental [Other] 12/30/2005 5 - Intolerance Comments: rhinitis TRAMADOL 03/10/2016 14 - Other: See Comments Comments: made patient woozy/dizzy Date Reviewed: 06/18/2018 Reviewed by: Kina Wooten LPN - Fully Assessed Reason for Visit: Cardiac Clearance [4105] Order(s):amoxicillin (POLYMOX, AMOXIL) 500 mg capsuleTAKE 4 TABLETS ONE HOUR BEFORE DENTAL WORKDisp: 4 capsuleRfl: 3 Prescriptions as of 06/30/2018 Sig: AMOXICILLIN 500 MG CAPSULE TAKE 4 TABLETS ONE HOUR BEFOR* PAROXETINE 10 MG TABLET Take 1 tablet by mouth once d* LORAZEPAM 0.5 MG TABLET Take 1 tablet by mouth as nee* POTASSIUM CHLORIDE ER 10 MEQ * Take 10 mEq by mouth once kodi* COMPOUNDED PRESCRIPTION Please perform nocturnal oxim* AMIODARONE 200 MG TABLET Take 1 tablet by mouth once d* UMECLIDINIUM 62.5 MCG-VILANTE* Inhale one inhalation as inst* WARFARIN 2 MG TABLET Take 2 mg by mouth once daily. FUROSEMIDE 40 MG TABLET Take 1 tablet by mouth once d* ATENOLOL 50 MG TABLET Take 0.5 tablets by mouth onc* MAGNESIUM OXIDE 400 MG (241.3* Take 1 tablet by mouth once d* ALBUTEROL SULFATE HFA 90 MCG/* Inhale 2 Puffs as instructed * CHOLECALCIFEROL (VITAMIN D3) * Take 1 capsule by mouth once * GLUCOSAMINE AND CHONDROIT SUL.N* Take 1 tablet by mouth once d* Problem List As Of Date 06/30/2018 Noted Resolved 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 IMPAIRED FASTING GLUCOSE [R73.01] INVALID FOR* Essential hypertension [I10] INVALID FOR* More... Osteoporosis [M81.0] INVALID FOR* More... Vitamin D Deficiency [E55.9] INVALID FOR* More... MR (mitral regurgitation) [I34.0] IBS (irritable bowel syndrome) [K58.9] More... 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 HOCM (hypertrophic obstructive cardiomyopathy) *INVALID FOR* Prescriptions ordered this encounter Disp Refills Start End AMOXICILLIN 500 MG CAPSULE 4 ca* 3 06/30/2018 Sig: TAKE 4 TABLETS ONE HOUR BEFORE DENTAL WORK Encounter Status:Closed by ANAND MEJÍA RN on 06/30/18 PROGRESS Observed: 06/23/2018 Status: COMPLETED Source: [place] 3:13 PM [facility] REPOSITORY HNO ID: [id number] Author: Beti Goetz LPN Service: (none) Author Type: (none) Type: Progress Notes Filed: 06/23/2018 3:13 PM Note Text: Patient notified of results and provider's instructions. Patient verbalizes understanding. Beti Goetz LPN PROGRESS Observed: 06/23/2018 Status: COMPLETED Source: [place] 1:37 PM [facility] REPOSITORY HNO ID: [id number] Author: Peter Lee Service: (none) Author Type: Physician Type: Progress Notes Filed: 06/23/2018 3:13 PM Note Text: Hold coumadin for today only. Then resume usual dose. INR in one week. PROGRESS Observed: 06/23/2018 Status: COMPLETED Source: [place] 10:39 AM [facility] REPOSITORY HNO ID: [id number] Author: Portia Theodore RN Service: (none) Author Type: (none) Type: Progress Notes Filed: 06/23/2018 10:41 AM Note Text: patient had inr completed at [facility] patients inr is 3.3 (patients inr range is 2.0-3.0) patient is currently taking 1mg Mon,Wed,Fri and 2mg all other days patients last dose change was on 05/19/18 due to a high level of 3.5 (dose at that time was 1mg Tu,th and 2mg all other days) patient has had no changes in medication and no missed doses and no change in diet FYI - patient has been back on coumadin for 10 days after having to stop it for 5 days due was to have a procedure but it got cancelled Advised patient that they would be contacted regarding medication dose and when to follow up after information is reviewed by provider. After provider review please contact the patient with information and schedule follow up appointment with coumadin clinic. FYI- patient has been scheduled for a 1 week follow up inr on 07/01/18 CNOV Observed: 06/18/2018 Status: COMPLETED Source: [place] 1:40 PM [facility] REPOSITORY Office Visit (INTMWS) PRISCILLA SHARPE ([id number]) 1940 F Date Time Provider Department 06/18/18 1:40 PM JERAD BALES (GIORGIO) INTMWS During your visit today, we recorded the following information about you: Pulse Respiration Blood pressure Weight 60/minute 16/minute 120/62 68 kg Jerad Bales APRN.CNS 06/18/2018 3:16 PM Signed OUTPATIENT VISIT DATE June 18, 2018 OUTPATIENT VISIT TYPE ESTABLISHED PRIMARY CARE PHYSICIAN: Alisia Pacheco MD CHIEF COMPLAINT: Patient presents with: Anxiety History of Present Illness: Priscilla Sharpe is a 78 year old female who was last seen 03/2018 by Alisia Pacheco MD She has been seen in the past for ACTIVE PROBLEM LIST Unspecified Disorder of Bladder Impaired Fasting Glucose Essential Hypertension Osteoporosis Vitamin D Deficiency Mr (Mitral Regurgitation) Ibs (Irritable Bowel Syndrome) Left-Sided Low Back Pain With Left-Sided Sciatica Long Q-T Syndrome Small B-Cell Lymphoma of Extranodal Site Excluding Spleen and Other Solid Organs (Hcc) Small Cell B-Cell Lymphoma of Extranodal Site (Hcc) Bone Metastases (Hcc) Hypoxemia Afib (Hcc) Pulmonary Emphysema (Hcc) Bone Metastasis (Hcc) Small B-Cell Lymphoma of Extranodal Site (Hcc) Hocm (Hypertrophic Obstructive Cardiomyopathy) (Hcc) Since the last visit, she has undergone evaluation for alcohol ablation. She was referred to cardiothoracic surgery for AF, MVP with MR, with tentative surgery date in July. Ms. Sharpe has complaint of anxiety and worry about upcoming surgery. She reports over the last 2 weeks nearly everyday feeling nervous anxious or on edge trouble relaxing feeling afraid as if something awful might happen. When half the days in the last 2 weeks she's been having trouble stopping in controlling worrying, worrying too much but different things, being restless was hard to sit still and becoming easily annoyed or irritable. GAD7=13. No recent hospital or ED visits. No new medical problems or medications. Able to obtain medications. No problems with taking medications or note side effects. 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 Monson follows for benign tumor removed 2002 - Unspecified essential hypertension 10/06/2008 PAST SURGICAL HISTORY Procedure Laterality Date - PAST SURGICAL HISTORY OF 2003 tumor removed from bladder FAMILY HISTORY Problem Relation Age of Onset - None Father - None Mother - other (Myocardial infarction) Paternal Grandmother 80 Social History Substance Use Topics - Smoking status: Former Smoker Packs/day: 1.00 Years: 58.00 Types: Cigarettes Start date: 1956 Quit date: 07/02/2013 - Smokeless tobacco: Never Used Comment: No smoking in childhood home. Spouse quit smoking years before patient did. - Alcohol use Yes Comment: occasional ALLERGIES: ALLERGIES Allergen Reactions - Zyloprim [Allopurin* Rash - Environmental [Othe* Intolerance rhinitis - Tramadol Other: See Comments made patient woozy/dizzy MEDICATIONS potassium chloride (K-TAB) 10 mEq tablet Take 10 mEq by mouth once daily. COMPOUNDED PRESCRIPTION Please perform nocturnal oximetry on RA. DME: [employer]. amiodarone (PACERONE) 200 mg tablet Take 1 tablet by mouth once daily. umeclidinium-vilanterol (ANORO ELLIPTA) 62.5-25 mcg/actuation inhaler Inhale one inhalation as instructed once daily warfarin (COUMADIN) 2 mg tablet Take 2 mg by mouth once daily. furosemide (LASIX) 40 mg tablet Take 1 tablet by mouth once daily. atenolol (TENORMIN) 50 mg tablet Take 0.5 tablets by mouth once daily. magnesium oxide (MAGOX) 400 mg tablet Take 1 tablet by mouth once daily. albuterol HFA (VENTOLIN HFA) 90 mcg/actuation inhaler Inhale 2 Puffs as instructed every 4 hours as needed for Wheezing/Shortness of Breath. Cholecalciferol, Vitamin D3, 1,000 unit cap Take 1 capsule by mouth once daily. GLUCOSAM SUL NA/CHONDR WEATHERS A NA (GLUCOSAMINE AND CHONDROIT SUL.NA ORAL) Take 1 tablet by mouth once daily. PARoxetine (PAXIL) 10 mg tablet Take 1 tablet by mouth once daily. LORazepam (ATIVAN) 0.5 mg tab Take 1 tablet by mouth as needed (at bedtime or as needed during the day) for up to 90 days. REVIEW OF SYSTEMS: GENERAL: Negative for: Weight loss or gain, Fever or Chills, Weakness and Sleep difficulties. Physical Examination: BP 120/62 Pulse 60 Resp 16 Wt 150 lb (68.0kg) General appearance: Well appearing, alert, in no acute distress, well-hydrated, well nourished. Skin: Skin color, texture, turgor normal, no suspicious rashes or lesions Neuro: Gait normal. Reflexes normal and symmetric. Sensation grossly intact. Reviewed chart, outside records, tests [facility] website checked and validated. All prescriptions have been APPROPRIATELY filled. No suspicious activity was identified. 06/18/2018 by Jerad Bales APRN.SOUND CONTROLLER I personally interviewed, confirmed and edited the above information if obtained by others. TESTING: Glucose (mg/dL) Date Value 06/10/2018 141 Potassium (mmol/L) Date Value 06/10/2018 3.7 Sodium (mmol/L) Date Value 06/10/2018 142 Chloride (mmol/L) Date Value 06/10/2018 102 CO2 (mmol/L) Date Value 06/10/2018 30 Creatinine (mg/dL) Date Value 06/10/2018 1.15 BUN (mg/dL) Date Value 06/10/2018 26 Anion Gap (mmol/L) Date Value 06/10/2018 10 Calcium (mg/dL) Date Value 06/10/2018 9.2 Glucose (mg/dL) Date Value 06/10/2018 141 Potassium (mmol/L) Date Value 06/10/2018 3.7 Sodium (mmol/L) Date Value 06/10/2018 142 Chloride (mmol/L) Date Value 06/10/2018 102 CO2 (mmol/L) Date Value 06/10/2018 30 Creatinine (mg/dL) Date Value 06/10/2018 1.15 BUN (mg/dL) Date Value 06/10/2018 26 Anion Gap (mmol/L) Date Value 06/10/2018 10 Calcium (mg/dL) Date Value 06/10/2018 9.2 Protein, Total (g/dL) Date Value 06/10/2018 6.8 Albumin (g/dL) Date Value 06/10/2018 4.1 Bilirubin, Total (mg/dL) Date Value 06/10/2018 0.5 Alkaline Phosphatase (U/L) Date Value 06/10/2018 76 AST (U/L) Date Value 06/10/2018 18 ALT (U/L) Date Value 06/10/2018 16 06/10/2018 14 Hemoglobin (g/dL) Date Value 06/10/2018 12.7 Hematocrit (%) Date Value 06/10/2018 40.9 WBC (k/uL) Date Value 06/10/2018 10.39 Cholesterol, Total (mg/dL) Date Value 09/03/2016 Test sent to [facility]. HDL Cholesterol (mg/dL) Date Value 09/03/2016 Test sent to [facility]. LDL Cholesterol (mg/dL) Date Value 09/03/2016 Test sent to [facility]. Triglyceride (mg/dL) Date Value 09/03/2016 Test sent to [facility]. Hemoglobin A1C Date Value Ref Range Status 09/03/2016 Test sent to [facility]. 4.0 - 6.0 % Final Comment: Account Credited HIDE 12/04/2014 Test sent to [facility]. 4.0 - 6.0 % Final Comment: Account Credited [place] Ejection Fraction - Result: 65 % Date: 06/10/2018 Time: 13:41:09 IMPRESSION: Ms. Sharpe is a 78 year old woman presents with anxiety prior to upcoming heart surgery After my examination and review of data, I make the following recommendations. PLAN AND RECOMMENDATIONS: 1. SOBOE (shortness of breath on exertion) - ICD9: 786.05, ICD10: R06.02 (primary diagnosis) - PARKING FOR HANDICAPPED 2. Anxiety about health - ICD9: 300.09, ICD10: F41.8 - PAROXETINE 10 MG TABLET - LORAZEPAM 0.5 MG TABLET - prn, may take prior to hs to help with sleep as needed Follow up declined for now, she will call for follow up as needed. Advised to go to ER if develops chest pain, shortness of breath, or severe worsening of symptoms. Discussed risks, benefits, alternatives, and potential side effects of medications. Ms. Sharpe expressed understanding and agreed with the plan. Jerad Bales APRN.SOUND CONTROLLER Referring Provider: SELF [200] Allergies As of Date: 06/18/2018 Noted Allergy Reaction ZYLOPRIM (ALLOPURINOL) 05/26/2017 2 - Rash environmental [Other] 12/30/2005 5 - Intolerance Comments: rhinitis TRAMADOL 03/10/2016 14 - Other: See Comments Comments: made patient woozy/dizzy Date Reviewed: 06/18/2018 Reviewed by: Kina Wooten LPN - Fully Assessed Reason for Visit: Anxiety [9] Primary Visit Diagnosis:SOBOE (shortness of breath on exertion) [R06.02] Other Visit Diagnosis:Anxiety about health [F41.8] Order(s):PARoxetine (PAXIL) 10 mg tabletTake 1 tablet by mouth once daily.Disp: 30 tabletRfl: 5 LORazepam (ATIVAN) 0.5 mg tabTake 1 tablet by mouth as needed (at bedtime or as needed during the day) for up to 90 days.Disp: 30 tabletRfl: 0 PARKING FOR HANDICAPPED [[id number]] Order #: [id number] Prescriptions as of 06/18/2018 Sig: POTASSIUM CHLORIDE ER 10 MEQ * Take 10 mEq by mouth once kodi* COMPOUNDED PRESCRIPTION Please perform nocturnal oxim* AMIODARONE 200 MG TABLET Take 1 tablet by mouth once d* UMECLIDINIUM 62.5 MCG-VILANTE* Inhale one inhalation as inst* WARFARIN 2 MG TABLET Take 2 mg by mouth once daily. FUROSEMIDE 40 MG TABLET Take 1 tablet by mouth once d* ATENOLOL 50 MG TABLET Take 0.5 tablets by mouth onc* MAGNESIUM OXIDE 400 MG TABLET Take 1 tablet by mouth once d* ALBUTEROL SULFATE HFA 90 MCG/* Inhale 2 Puffs as instructed * CHOLECALCIFEROL (VITAMIN D3) * Take 1 capsule by mouth once * GLUCOSAMINE AND CHONDROIT SUL.N* Take 1 tablet by mouth once d* PAROXETINE 10 MG TABLET Take 1 tablet by mouth once d* LORAZEPAM 0.5 MG TABLET Take 1 tablet by mouth as nee* Problem List As Of Date 06/18/2018 Noted Resolved 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 IMPAIRED FASTING GLUCOSE [R73.01] INVALID FOR* Essential hypertension [I10] INVALID FOR* More... Osteoporosis [M81.0] INVALID FOR* More... Vitamin D Deficiency [E55.9] INVALID FOR* More... MR (mitral regurgitation) [I34.0] IBS (irritable bowel syndrome) [K58.9] More... 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 HOCM (hypertrophic obstructive cardiomyopathy) *INVALID FOR* Prescriptions ordered this encounter Disp Refills Start End PAROXETINE 10 MG TABLET 30 t* 5 06/18/2018 Route: ORAL Sig: Take 1 tablet by mouth once daily. LORAZEPAM 0.5 MG TABLET 30 t* 0 06/18/2018 09/16/2018 Class: Print RX Route: ORAL Sig: Take 1 tablet by mouth as needed (at bedtime or as needed during the day) for up to 90 days. Medications Discontinued During This Encounter predniSONE (DELTASONE) 10 mg tablet 30 t* 0 06/03/2018 06/18/2018 Si tablets daily for 3 days, 3 tablets daily for 3 days, 2 tablets daily for 3 days, 1 tablet daily for 3 days. Patient not taking: Reported on 06/14/2018 Disc: Reason for discontinue is not on file. Encounter Status:Closed by JERAD PAIZ on 06/18/18 PROGRESS Observed: 06/18/2018 Status: COMPLETED Source: [place] 1:38 PM [facility] REPOSITORY O ID: [id number] Author: Jerad (Giorgio) Nii Service: (none) Author Type: Nurse Specialist Type: Progress Notes Filed: 06/18/2018 3:16 PM Note Text: OUTPATIENT VISIT DATE June 18, 2018 OUTPATIENT VISIT TYPE ESTABLISHED PRIMARY CARE PHYSICIAN: Alisia Pacheco MD CHIEF COMPLAINT: Patient presents with: Anxiety History of Present Illness: Priscilla Sharpe is a 78 year old female who was last seen 03/2018 by Alisia Pacheco MD She has been seen in the past for ACTIVE PROBLEM LIST Unspecified Disorder of Bladder Impaired Fasting Glucose Essential Hypertension Osteoporosis Vitamin D Deficiency Mr (Mitral Regurgitation) Ibs (Irritable Bowel Syndrome) Left-Sided Low Back Pain With Left-Sided Sciatica Long Q-T Syndrome Small B-Cell Lymphoma of Extranodal Site Excluding Spleen and Other Solid Organs (Hcc) Small Cell B-Cell Lymphoma of Extranodal Site (Hcc) Bone Metastases (Hcc) Hypoxemia Afib (Hcc) Pulmonary Emphysema (Hcc) Bone Metastasis (Hcc) Small B-Cell Lymphoma of Extranodal Site (Hcc) Hocm (Hypertrophic Obstructive Cardiomyopathy) (Hcc) Since the last visit, she has undergone evaluation for alcohol ablation. She was referred to cardiothoracic surgery for AF, MVP with MR, with tentative surgery date in July. Ms. Sharpe has complaint of anxiety and worry about upcoming surgery. She reports over the last 2 weeks nearly everyday feeling nervous anxious or on edge trouble relaxing feeling afraid as if something awful might happen. When half the days in the last 2 weeks she's been having trouble stopping in controlling worrying, worrying too much but different things, being restless was hard to sit still and becoming easily annoyed or irritable. GAD7=13. No recent hospital or ED visits. No new medical problems or medications. Able to obtain medications. No problems with taking medications or note side effects. 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 Monson follows for benign tumor removed 2002 - Unspecified essential hypertension 10/06/2008 PAST SURGICAL HISTORY Procedure Laterality Date - PAST SURGICAL HISTORY OF 2003 tumor removed from bladder FAMILY HISTORY Problem Relation Age of Onset - None Father - None Mother - other (Myocardial infarction) Paternal Grandmother 80 Social History Substance Use Topics - Smoking status: Former Smoker Packs/day: 1.00 Years: 58.00 Types: Cigarettes Start date: 1955 Quit date: 07/02/2013 - Smokeless tobacco: Never Used Comment: No smoking in childhood home. Spouse quit smoking years before patient did. - Alcohol use Yes Comment: occasional ALLERGIES: ALLERGIES Allergen Reactions - Zyloprim [Allopurin* Rash - Environmental [Othe* Intolerance rhinitis - Tramadol Other: See Comments made patient woozy/dizzy MEDICATIONS potassium chloride (K-TAB) 10 mEq tablet Take 10 mEq by mouth once daily. COMPOUNDED PRESCRIPTION Please perform nocturnal oximetry on RA. DME: [employer]. amiodarone (PACERONE) 200 mg tablet Take 1 tablet by mouth once daily. umeclidinium-vilanterol (ANORO ELLIPTA) 62.5-25 mcg/actuation inhaler Inhale one inhalation as instructed once daily warfarin (COUMADIN) 2 mg tablet Take 2 mg by mouth once daily. furosemide (LASIX) 40 mg tablet Take 1 tablet by mouth once daily. atenolol (TENORMIN) 50 mg tablet Take 0.5 tablets by mouth once daily. magnesium oxide (MAGOX) 400 mg tablet Take 1 tablet by mouth once daily. albuterol HFA (VENTOLIN HFA) 90 mcg/actuation inhaler Inhale 2 Puffs as instructed every 4 hours as needed for Wheezing/Shortness of Breath. Cholecalciferol, Vitamin D3, 1,000 unit cap Take 1 capsule by mouth once daily. GLUCOSAM SUL NA/CHONDR WEATHERS A NA (GLUCOSAMINE AND CHONDROIT SUL.NA ORAL) Take 1 tablet by mouth once daily. PARoxetine (PAXIL) 10 mg tablet Take 1 tablet by mouth once daily. LORazepam (ATIVAN) 0.5 mg tab Take 1 tablet by mouth as needed (at bedtime or as needed during the day) for up to 90 days. REVIEW OF SYSTEMS: GENERAL: Negative for: Weight loss or gain, Fever or Chills, Weakness and Sleep difficulties. Physical Examination: BP 120/62 Pulse 60 Resp 16 Wt 150 lb (68.0kg) General appearance: Well appearing, alert, in no acute distress, well-hydrated, well nourished. Skin: Skin color, texture, turgor normal, no suspicious rashes or lesions Neuro: Gait normal. Reflexes normal and symmetric. Sensation grossly intact. Reviewed chart, outside records, tests [facility] website checked and validated. All prescriptions have been APPROPRIATELY filled. No suspicious activity was identified. 06/18/2018 by Jerad Bales APRN.SOUND CONTROLLER I personally interviewed, confirmed and edited the above information if obtained by others. TESTING: Glucose (mg/dL) Date Value 06/10/2018 141 Potassium (mmol/L) Date Value 06/10/2018 3.7 Sodium (mmol/L) Date Value 06/10/2018 142 Chloride (mmol/L) Date Value 06/10/2018 102 CO2 (mmol/L) Date Value 06/10/2018 30 Creatinine (mg/dL) Date Value 06/10/2018 1.15 BUN (mg/dL) Date Value 06/10/2018 26 Anion Gap (mmol/L) Date Value 06/10/2018 10 Calcium (mg/dL) Date Value 06/10/2018 9.2 Glucose (mg/dL) Date Value 06/10/2018 141 Potassium (mmol/L) Date Value 06/10/2018 3.7 Sodium (mmol/L) Date Value 06/10/2018 142 Chloride (mmol/L) Date Value 06/10/2018 102 CO2 (mmol/L) Date Value 06/10/2018 30 Creatinine (mg/dL) Date Value 06/10/2018 1.15 BUN (mg/dL) Date Value 06/10/2018 26 Anion Gap (mmol/L) Date Value 06/10/2018 10 Calcium (mg/dL) Date Value 06/10/2018 9.2 Protein, Total (g/dL) Date Value 06/10/2018 6.8 Albumin (g/dL) Date Value 06/10/2018 4.1 Bilirubin, Total (mg/dL) Date Value 06/10/2018 0.5 Alkaline Phosphatase (U/L) Date Value 06/10/2018 76 AST (U/L) Date Value 06/10/2018 18 ALT (U/L) Date Value 06/10/2018 16 06/10/2018 14 Hemoglobin (g/dL) Date Value 06/10/2018 12.7 Hematocrit (%) Date Value 06/10/2018 40.9 WBC (k/uL) Date Value 06/10/2018 10.39 Cholesterol, Total (mg/dL) Date Value 09/03/2016 Test sent to [facility]. HDL Cholesterol (mg/dL) Date Value 09/03/2016 Test sent to [facility]. LDL Cholesterol (mg/dL) Date Value 09/03/2016 Test sent to [facility]. Triglyceride (mg/dL) Date Value 09/03/2016 Test sent to [facility]. Hemoglobin A1C Date Value Ref Range Status 09/03/2016 Test sent to [facility]. 4.0 - 6.0 % Final Comment: Account Credited RAISAE 12/04/2014 Test sent to [facility]. 4.0 - 6.0 % Final Comment: Account Credited [place] Ejection Fraction - Result: 65 % Date: 06/10/2018 Time: 13:41:09 IMPRESSION: Ms. Sharpe is a 78 year old woman presents with anxiety prior to upcoming heart surgery After my examination and review of data, I make the following recommendations. PLAN AND RECOMMENDATIONS: 1. SOBOE (shortness of breath on exertion) - ICD9: 786.05, ICD10: R06.02 (primary diagnosis) - PARKING FOR HANDICAPPED 2. Anxiety about health - ICD9: 300.09, ICD10: F41.8 - PAROXETINE 10 MG TABLET - LORAZEPAM 0.5 MG TABLET - prn, may take prior to hs to help with sleep as needed Follow up declined for now, she will call for follow up as needed. Advised to go to ER if develops chest pain, shortness of breath, or severe worsening of symptoms. Discussed risks, benefits, alternatives, and potential side effects of medications. Ms. Sharpe expressed understanding and agreed with the plan. Jerad Bales APRN.SOUND CONTROLLER HOSP Observed: 06/17/2018 Status: COMPLETED Source: [place] 12:00 AM [facility] [place] REPOSITORY Patient:Priscilla Sharpe MRN: <[id number]> Height:5' 6(1.676 m) Weight:150 lb (68.04 kg) Outpatient Medications as of 07/30/18: mupirocin (BACTROBAN) 2 % ointment amoxicillin (POLYMOX, AMOXIL) 500 mg capsule PARoxetine (PAXIL) 10 mg tablet LORazepam (ATIVAN) 0.5 mg tab potassium chloride (K-TAB) 10 mEq tablet COMPOUNDED PRESCRIPTION amiodarone (PACERONE) 200 mg tablet umeclidinium-vilanterol (ANORO ELLIPTA) 62.5-25 mcg/actuation inhaler warfarin (COUMADIN) 2 mg tablet furosemide (LASIX) 40 mg tablet atenolol (TENORMIN) 50 mg tablet magnesium oxide (MAGOX) 400 mg tablet albuterol HFA (VENTOLIN HFA) 90 mcg/actuation inhaler Cholecalciferol, Vitamin D3, 1,000 unit cap GLUCOSAM SUL NA/CHONDR WEATHERS A NA (GLUCOSAMINE AND CHONDROIT SUL.NA ORAL) Admission/Clinic Administered Medications as of 07/30/18: Patient has no admission medications. 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) [C83.09] Bone metastases (HCC) [C79.51] Hypoxemia [R09.02] Afib (HCC) [I48.91] Pulmonary emphysema (HCC) [J43.9] Bone metastasis (HCC) [C79.51] 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) [C83.09] HOCM (hypertrophic obstructive cardiomyopathy) (HCC) [I42.1] Discharge planning issues [Z02.9] Preop testing [Z01.818] Encounter for preoperative anesthesiology assessment for cardiac surgery [Z01.818] Allergies: Zyloprim [Allopurinol] environmental [Other] Tramadol Date Verified: 07/30/18 Lab Values Lab Value Units Date High Low POTA* 3.9 mmol/L 07/29/2018 5.1 3.7 JENNIFER* 41.4 % 07/29/2018 46.0 36.0 Progress Notes ([facility]): Anand Mejía RN 07/29/2018 2:03 PM Signed ----- Message from Brandon Argueta sent at 07/29/2018 1:58 PM EDT ----- Kidney function is slightly lower. Liver and thyroid are normal. Repeat ALT and TSH in 6 months, if she is still on amiodarone. MD Anand Cruz RN 07/29/2018 2:04 PM Signed Left message to call office. 07/29/2018 2:04 PM Anand Mejía RN Progress Notes ([facility]): Bhanu Osman APRN.CNP 07/29/2018 10:19 AM Signed AMBULATORY PATIENT EDUCATION READINESS TO LEARN Cognitive Ability: Alert and oriented Motivation To Learn: Interested Family Support: High - Very involved in pt care Instruction Provided To: Patient AND Family Patient Learns Best By: Multiple Methods Factors Affecting Learning: None Physical Limitations Affecting Learning: None LEARNING RESPONSE Diagnosis: hypertrophic obstructive cardiomyopathy / mitral regurgitation Education Topic: Pre-Op Open Heart Surgery Instructions Teaching Points: Logistics / Protocols /Complication Prevention Instruction/Supplemental Materials: Cardiac Surgery Information Binder, Video, Individual Instruction Patient/Family Response: Verbalizes understanding Follow up plan: Patient/Family to call [facility] with any further questions Referral (Recommendation): None Teach completed, topic: Bactroban instructions given PROGRESS Observed: 06/14/2018 Status: COMPLETED Source: [place] 12:35 PM [facility] REPOSITORY HNO ID: [id number] Author: Cari Martinez Service: (none) Author Type: Physician Type: Progress Notes Filed: 06/15/2018 7:32 AM Note Text: PATIENT NAME: Priscilla Sharpe. CLINIC NO: [id number]. ATTENDING PHYSICIAN: Cari Martinez MD. DATE OF SERVICE: . ?? 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 HPI: 78-year-old [place] lady who presented last summer with complaint of lower back pain secondary to spinal stenosis. She has several injection last year without any improvement. She had additional pain in her legs but more numb and pain that radiates--will see internal corrosion specialist from [facility] here in [place]. She also noted left hip pain as well.She had a follow-up MRI scan in December, which showed sclerotic bone lesions in the lumbar spine as well as left iliac bone. ?? Patient then had additional study bone scan which showed multifocal osteoblastic metastatic lesions. CT scan of abdomen and pelvis showed no adenopathy or splenomegaly but cystic lesion in the kidney and liver and a left adrenal adenoma. Cholelithiasis without evidence for acute cholecystitis. Again, metastatic lesions in the lumbar spine and pelvis. 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 Moderate atrophy and white matter ischemic changes also noted. CT-guided biopsy of the bone lesion in her left hip on 02/25/17 is consistent with a non-Hodgkin B-cell lymphoma, unclassifiable (small lymphocytic cells); CD5 negative, CD20 positive, CD23 positive, CD10 negative, BCL2 positive, but cyclin D1 negative. ?? Patient also noted a mass in her left posterior cervical triangle for over a year. She has no fever, chills or night sweats. She has no increased fatigue, or weight loss. Patient was a previous smoker but has not smoked for over 15 years. No family history of cancer, leukemia or lymphoma. Patient has no hoarseness or dysphagia. She has history of decreased hearing and positional vertigo. Her back and left hip pain is controlled with prednisone?taper?and pain medications regimen. ?? Previous?Treatment: Rituxan AND?bendamustine x 6 cycles ( 04/29/17 - 10/13/17 ) ?? Interim history:?Patient is doing well. She has no fever, chills or night sweats. She denied any bone or back pain. ?No chest pain?or coughing. She has no?bleeding or bruising on warfarin. ??Weight and appetite remain stable. She did not have surgery for her heart this year. she has dyspnea and exertion. ? All medications AND allergies updated and reviewed by me. ?? CONSTITUTIONAL: No fevers, chills, nightsweats, unintended weight loss HEENT: Denies frequent or severe heaches, nasal congestion/sinus symptoms, problematic allergy problems. EYES: No diplopia or blurry vision. CARDIOVASCULAR: No chest pain, dyspnea, palpitations, orthopnea, PND, ankle edema. PULM: No dyspnea, unexplained cough. GI: No dysphagia/odynophagia, problematic reflux, constipation, diarrhea, changes in stool habits, hematochezia, melena. : No new urinary complaints, including dysuria, gross hematuria or pyuria. NEURO: No new balance problems, peripheral weakness/paresthesias or numbness of concern. MUSC-SKEL: No new joint pain, swelling, or erythema.+ Chronic lower back and left hip pain with sciatica PSY: No concerns regarding depression, anxiety or panic. INTEGUMENTARY: No new skin changes (rash, new or changing mole, new growth) ?? PHYSICAL EXAMINATION: 78-year-old well-nourished, well-developed lady in no acute distress Performance status 100% BP 121/64 Pulse 52 Temp (Src) 97.9 (Oral) Wt 152 lb (68.9kg) HEENT: Head is normocephalic, atraumatic. Sclerae white, conjunctivae pink. PEERL. EOMs are intact. Oropharynx is benign. LYMPHATICS: There is no?palpable cervical adenopathy, no supraclavicular region, axillae, or groin. LUNGS: Lungs are clear to percussion and auscultation. HEART: Heart is normal with grade 2/6 holosystolic?murmurs, no gallops, or rubs. ABDOMEN: Soft and nontender without organomegaly. No masses can be palpated. EXTREMITIES: Are without edema. NEUROLOGIC: Exam is physiologic ?? LABORATORY DATA: ? Component Latest Ref Rng AND Units 06/10/2018 WBC 3.70 - 11.00 k/uL 10.39 RBC 3.90 - 5.20 m/uL 4.83 Hemoglobin 11.5 - 15.5 g/dL 12.7 Hematocrit 36.0 - 46.0 % 40.9 MCV 80.0 - 100.0 fL 84.7 MCH 26.0 - 34.0 pG 26.3 MCHC 30.5 - 36.0 g/dL 31.1 RDW-CV 11.5 - 15.0 % 16.0 (H) Platelet Count 150 - 400 k/uL 279 MPV 9.0 - 12.7 fL 9.7 Absolute nRBC <0.01 k/uL <0.01 Component Latest Ref Rng AND Units 06/10/2018 Protein, Total 6.3 - 8.0 g/dL 6.8 Albumin 3.9 - 4.9 g/dL 4.1 Calcium 8.5 - 10.2 mg/dL 9.2 Bilirubin, Total 0.2 - 1.3 mg/dL 0.5 Alkaline Phosphatase 32 - 117 U/L 76 AST 13 - 35 U/L 18 Glucose 74 - 99 mg/dL 141 (H) BUN 7 - 21 mg/dL 26 (H) Creatinine 0.58 - 0.96 mg/dL 1.15 (H) Sodium 136 - 144 mmol/L 142 Potassium 3.7 - 5.1 mmol/L 3.7 Chloride 97 - 105 mmol/L 102 CO2 22 - 30 mmol/L 30 Anion Gap 9 - 18 mmol/L 10 ALT 7 - 38 U/L 14 eGFR- 55 eGFR-All Other Races . 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 ?? PLAN: - Continued observation and repeat CT chest abdomen pelvis in 3 months - proceed with valvular heart surgery and follow with cardiology. - Continue Coumadin. - repeat CBC, CMP, LDH, immunofixation AND OV in 3 months. ? Cari Martinez MD ? Cc: Dr. Brandon Arugeta CNOVSP Observed: 06/14/2018 Status: COMPLETED Source: [place] 12:10 PM [facility] REPOSITORY Visit (SP) Office ([facility]MA[place]) PRISCILLA SHARPE ([id number]) 1940 F Date Time Provider Department 06/14/18 12:10 PM CARI MARTINEZ During your visit today, we recorded the following information about you: Temperature Pulse Blood pressure Weight 97.9 degrees 52/minute 121/64 68.9 kg Marleny Fontana LPN 06/14/2018 12:24 PM Signed Est patient. Discuss recent labs. Marleny Martinez MD 06/15/2018 7:32 AM Signed PATIENT NAME: Priscilla Sharpe. CLINIC NO: [id number]. ATTENDING PHYSICIAN: Cari Martinez MD. DATE OF SERVICE: . ?? 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 HPI: 78-year-old [place] lady who presented last summer with complaint of lower back pain secondary to spinal stenosis. She has several injection last year without any improvement. She had additional pain in her legs but more numb and pain that radiates--will see internal corrosion specialist from [facility] here in [place]. She also noted left hip pain as well.She had a follow-up MRI scan in December, which showed sclerotic bone lesions in the lumbar spine as well as left iliac bone. ?? Patient then had additional study bone scan which showed multifocal osteoblastic metastatic lesions. CT scan of abdomen and pelvis showed no adenopathy or splenomegaly but cystic lesion in the kidney and liver and a left adrenal adenoma. Cholelithiasis without evidence for acute cholecystitis. Again, metastatic lesions in the lumbar spine and pelvis. 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 Moderate atrophy and white matter ischemic changes also noted. CT-guided biopsy of the bone lesion in her left hip on 02/25/17 is consistent with a non-Hodgkin B-cell lymphoma, unclassifiable (small lymphocytic cells); CD5 negative, CD20 positive, CD23 positive, CD10 negative, BCL2 positive, but cyclin D1 negative. ?? Patient also noted a mass in her left posterior cervical triangle for over a year. She has no fever, chills or night sweats. She has no increased fatigue, or weight loss. Patient was a previous smoker but has not smoked for over 15 years. No family history of cancer, leukemia or lymphoma. Patient has no hoarseness or dysphagia. She has history of decreased hearing and positional vertigo. Her back and left hip pain is controlled with prednisone?taper?and pain medications regimen. ?? Previous?Treatment: Rituxan AND?bendamustine x 6 cycles ( 04/29/17 - 10/13/17 ) ?? Interim history:?Patient is doing well. She has no fever, chills or night sweats. She denied any bone or back pain. ?No chest pain?or coughing. She has no?bleeding or bruising on warfarin. ??Weight and appetite remain stable. She did not have surgery for her heart this year. she has dyspnea and exertion. ? All medications AND allergies updated and reviewed by me. ?? CONSTITUTIONAL: No fevers, chills, nightsweats, unintended weight loss HEENT: Denies frequent or severe heaches, nasal congestion/sinus symptoms, problematic allergy problems. EYES: No diplopia or blurry vision. CARDIOVASCULAR: No chest pain, dyspnea, palpitations, orthopnea, PND, ankle edema. PULM: No dyspnea, unexplained cough. GI: No dysphagia/odynophagia, problematic reflux, constipation, diarrhea, changes in stool habits, hematochezia, melena. : No new urinary complaints, including dysuria, gross hematuria or pyuria. NEURO: No new balance problems, peripheral weakness/paresthesias or numbness of concern. MUSC-SKEL: No new joint pain, swelling, or erythema.+ Chronic lower back and left hip pain with sciatica PSY: No concerns regarding depression, anxiety or panic. INTEGUMENTARY: No new skin changes (rash, new or changing mole, new growth) ?? PHYSICAL EXAMINATION: 78-year-old well-nourished, well-developed lady in no acute distress Performance status 100% BP 121/64 Pulse 52 Temp (Src) 97.9 (Oral) Wt 152 lb (68.9kg) HEENT: Head is normocephalic, atraumatic. Sclerae white, conjunctivae pink. PEERL. EOMs are intact. Oropharynx is benign. LYMPHATICS: There is no?palpable cervical adenopathy, no supraclavicular region, axillae, or groin. LUNGS: Lungs are clear to percussion and auscultation. HEART: Heart is normal with grade 2/6 holosystolic?murmurs, no gallops, or rubs. ABDOMEN: Soft and nontender without organomegaly. No masses can be palpated. EXTREMITIES: Are without edema. NEUROLOGIC: Exam is physiologic ?? LABORATORY DATA: ? Component Latest Ref Rng AND Units 06/10/2018 WBC 3.70 - 11.00 k/uL 10.39 RBC 3.90 - 5.20 m/uL 4.83 Hemoglobin 11.5 - 15.5 g/dL 12.7 Hematocrit 36.0 - 46.0 % 40.9 MCV 80.0 - 100.0 fL 84.7 MCH 26.0 - 34.0 pG 26.3 MCHC 30.5 - 36.0 g/dL 31.1 RDW-CV 11.5 - 15.0 % 16.0 (H) Platelet Count 150 - 400 k/uL 279 MPV 9.0 - 12.7 fL 9.7 Absolute nRBC <0.01 k/uL <0.01 Component Latest Ref Rng AND Units 06/10/2018 Protein, Total 6.3 - 8.0 g/dL 6.8 Albumin 3.9 - 4.9 g/dL 4.1 Calcium 8.5 - 10.2 mg/dL 9.2 Bilirubin, Total 0.2 - 1.3 mg/dL 0.5 Alkaline Phosphatase 32 - 117 U/L 76 AST 13 - 35 U/L 18 Glucose 74 - 99 mg/dL 141 (H) BUN 7 - 21 mg/dL 26 (H) Creatinine 0.58 - 0.96 mg/dL 1.15 (H) Sodium 136 - 144 mmol/L 142 Potassium 3.7 - 5.1 mmol/L 3.7 Chloride 97 - 105 mmol/L 102 CO2 22 - 30 mmol/L 30 Anion Gap 9 - 18 mmol/L 10 ALT 7 - 38 U/L 14 eGFR- 55 eGFR-All Other Races . 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 ?? PLAN: - Continued observation and repeat CT chest abdomen pelvis in 3 months - proceed with valvular heart surgery and follow with cardiology. - Continue Coumadin. - repeat CBC, CMP, LDH, immunofixation AND OV in 3 months. ? Cari Martinez MD ? Cc: Dr. Brandon Argueta Referring Provider: CARI MARTINEZ [[id number]] Allergies As of Date: 06/14/2018 Noted Allergy Reaction ZYLOPRIM (ALLOPURINOL) 05/26/2017 2 - Rash environmental [Other] 12/30/2005 5 - Intolerance Comments: rhinitis TRAMADOL 03/10/2016 14 - Other: See Comments Comments: made patient woozy/dizzy Date Reviewed: 06/14/2018 Reviewed by: Marleny Fontana LPN - Fully Assessed Reason for Visit: Established Patient [175] Primary Visit Diagnosis: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] Other Visit Diagnoses:Bone metastases (HCC) [C79.51] Lymphoblastic lymphoma of lymph nodes of multiple regions (HCC) [C83.58] Order(s):CT ABD/PEL W IVCON [[id number]] Order #: [id number] FUTURE CT CHEST W IVCON [[id number]] Order #: [id number] FUTURE iv contrast (will be provided with radiology test)CT Chest ABD/PEL-Inject, intravenously, once for 1 dose.No IV access, insert saline lock prior to the beginning of sedation, infusion, injection of imaging exam. Discontinue saline lock post exam. If Pt. has a central line or IVAD, may access for administration according to line specific nursing protocol. Once exam is complete flush line and de-access according to line specific nursing protocol in the CT contrast administration guidelines link.Disp: 1 EachRfl: 0 enteric contrast (will be provided with radiology test)For CT CHESTABD/PEL W IVCON Routine order Administer, As Directed One Time Only, via Oral, Rectal, both Oral and Rectal, Enteric Tube, Stoma or Indwelling Catheter, Enteric Contrast as designated per enteric contrast guidelinesDisp: 1 EachRfl: 0 Level of Service: EST PATIENT VISIT LEVEL 3 [30537] Disposition: Return in about 3 months (around 09/14/2018). Follow-up and Disposition History Recorded Prescriptions as of 06/14/2018 Sig: POTASSIUM CHLORIDE ER 10 MEQ * Take 10 mEq by mouth once kodi* AMIODARONE 200 MG TABLET Take 1 tablet by mouth once d* UMECLIDINIUM 62.5 MCG-VILANTE* Inhale one inhalation as inst* WARFARIN 2 MG TABLET Take 2 mg by mouth once daily. FUROSEMIDE 40 MG TABLET Take 1 tablet by mouth once d* ATENOLOL 50 MG TABLET Take 0.5 tablets by mouth onc* MAGNESIUM OXIDE 400 MG TABLET Take 1 tablet by mouth once d* ALBUTEROL SULFATE HFA 90 MCG/* Inhale 2 Puffs as instructed * CHOLECALCIFEROL (VITAMIN D3) * Take 1 capsule by mouth once * GLUCOSAMINE AND CHONDROIT SUL.N* Take 1 tablet by mouth once d* IV CONTRAST (RADIOLOGY PROCED* CT Chest ABD/PEL-Inject, intr* ENTERIC CONTRAST (RADIOLOGY P* For CT CHESTABD/PEL W IVCON R* PREDNISONE 10 MG TABLET 4 tablets daily for 3 days, 3* Patient not taking: Reported on 06/14/2018 COMPOUNDED PRESCRIPTION Please perform nocturnal oxim* Medication notes this encounter WARFARIN 2 MG TABLET >> Marleny Fontana LPN 06/14/2018 12:00 PM >> MARLENY FONTANA LPN Jun 14, 2018 12:00 PM taking Problem List As Of Date 06/14/2018 Noted Resolved 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 IMPAIRED FASTING GLUCOSE [R73.01] INVALID FOR* Essential hypertension [I10] INVALID FOR* More... Osteoporosis [M81.0] INVALID FOR* More... Vitamin D Deficiency [E55.9] INVALID FOR* More... MR (mitral regurgitation) [I34.0] IBS (irritable bowel syndrome) [K58.9] More... 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 HOCM (hypertrophic obstructive cardiomyopathy) *INVALID FOR* Visit Notes: >> Marleny Fontana LPN ThuJun 14, 2018 12:00 PM Status: Signed Est patient. Discuss recent labs. Marleny Fontana LPN Encounter Status:Closed by CARI MARTINEZ MD on 06/15/18 PROGRESS Observed: 06/10/2018 Status: COMPLETED Source: [place] 3:34 PM [facility] [place] REPOSITORY HNO ID: [id number] Author: Jay Rich MD Service: (none) Author Type: Physician Type: Progress Notes Filed: 06/18/2018 2:55 PM Note Text: [facility] Department of Cardiovascular Medicine SECTION OF INTERVENTIONAL CARDIOLOGY OUTPATIENT VISIT DATE June 10, 2018 OUTPATIENT VISIT TYPE CONSULTATION PRIMARY CARE PHYSICIAN: Alisia Pacheco MD [address] [place] [address] Brandon Kemp CHIEF COMPLAINT: Alcohol ablation MR Miryam HISTORY OF PRESENT ILLNESS: Cardiac consultation at the request of Dr. Jay Rich.A copy of this consultation note will be provided to the requesting physician by way of shared Medical record or letter to requesting physician via US mail. Ms. Sharpe is a 78 year old female who is seen today for HOCM and DMR. NURSING INTAKE: Mrs. Sharpe is a 78 yo female with h/o PAF - cardioversion 05/18, 10/18, HCM, HTN- HL - declines statinMVP with mitral insufficiency - severeCHF - diastolic, Long QT and h/o smoking who presents for evaluation of MR and HOCM She denies DM, FH of premature CAD or prior RI She reports h/o afib last year And had undergone DCC X2 She has noted SOB with exertion for the past 6 months No rest, orthopnea, PND or LE edema DANIEL CONCLUSIONS: - Exam indication: Re-evaluation of known valvular heart disease with change in clinical status - The left ventricle is normal in size. There is severe upper septal left ventricular hypertrophy. Left ventricular systolic function is normal. EF = 60 ? 5% (visual est.) - The right ventricle is normal in size. Right ventricular systolic function is normal. - The left atrial cavity is severely dilated. - No left atrial appendage thrombi. - Eccentric anteriorly directed severe MR due to posterior leaflet prolapse - Significant LVOT obstruction (GUI) with peak gradient of 86 mmHg - No increase in heart rate post amyl, no significant change in gradient ? - Exam was compared with the prior CC echocardiographic exam performed on 01/07/17. Mitral regurgitation is now identified as severe and a significant LVOT gradient was observed. 11/30/17 Coronary angiogram SYNGO Diet / Nutrition: Low Salt Weight: no change since last visit Exercise: Not as active . 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 Monson follows for benign tumor removed 2002 - Unspecified essential hypertension 10/06/2008 PAST SURGICAL HISTORY Procedure Laterality Date - PAST SURGICAL HISTORY OF 2004 tumor removed from bladder SOCIAL HISTORY Social History Substance Use Topics - Smoking status: Former Smoker Packs/day: 1.00 Years: 58.00 Types: Cigarettes Start date: 1955 Quit date: 07/02/2013 - Smokeless tobacco: Never Used Comment: No smoking in childhood home. Spouse quit smoking years before patient did. - Alcohol use Yes Comment: occasional FAMILY HISTORY Problem Relation Age of Onset - None Father - None Mother - Myocardial infarction [OTHER] Paternal Grandmother 80 ALLERGIES: ALLERGIES Allergen Reactions - Zyloprim [Allopurin* Rash - Environmental [Othe* Intolerance rhinitis - Tramadol Other: See Comments made patient woozy/dizzy MEDICATIONS: potassium chloride (K-TAB) 10 mEq tablet Take 10 mEq by mouth once daily. predniSONE (DELTASONE) 10 mg tablet 4 tablets daily for 3 days, 3 tablets daily for 3 days, 2 tablets daily for 3 days, 1 tablet daily for 3 days. amoxicillin-clavulanic acid (AUGMENTIN) 875-125 mg per tablet Take 1 tablet by mouth twice daily for 7 days. amiodarone (PACERONE) 200 mg tablet Take 1 tablet by mouth once daily. umeclidinium-vilanterol (ANORO ELLIPTA) 62.5-25 mcg/actuation inhaler Inhale one inhalation as instructed once daily warfarin (COUMADIN) 2 mg tablet Take 2 mg by mouth once daily. furosemide (LASIX) 40 mg tablet Take 1 tablet by mouth once daily. atenolol (TENORMIN) 50 mg tablet Take 0.5 tablets by mouth once daily. magnesium oxide (MAGOX) 400 mg tablet Take 1 tablet by mouth once daily. albuterol HFA (VENTOLIN HFA) 90 mcg/actuation inhaler Inhale 2 Puffs as instructed every 4 hours as needed for Wheezing/Shortness of Breath. Cholecalciferol, Vitamin D3, 1,000 unit cap Take 1 capsule by mouth once daily. GLUCOSAM SUL NA/CHONDR WEATHERS A NA (GLUCOSAMINE AND CHONDROIT SUL.NA ORAL) Take 1 tablet by mouth once daily. COMPOUNDED PRESCRIPTION Please perform nocturnal oximetry on RA. DME: [employer]. REVIEW OF SYSTEMS: GENERAL: no fever, no chills and no change in weight HEENT: no headaches, no difficulty swallowing, dentures SKIN: no rashes and no ulcers RESPIRATORY: no cough, no orthopnea, no paroxysmal nocturnal dyspnea, no asthma, no COPD, shortness of breath and dyspnea on exertion CARDIOVASCULAR: no chest pain, no dizziness, no syncope, no claudication, no edema and See HPI GASTROINTESTINAL: no abdominal pain, no nausea, no vomiting and no melanotic stools GENITOURINARY: no dysuria MUSCULOSKELETAL: joint pain NEUROLOGIC: numbness and tingling HEMATOLOGY: no bruising easily, no anemia and no cancer ENDOCRINE: no diabetes and no thyroid disease PSYCH: sleep disturbance PHYSICAL EXAMINATION: BP 119/77 Pulse 74 Ht 5' 6 (1.68m) Wt 149 lb 4.8 oz (67.7kg) SpO2 97% BMI 24.11 kg/(m2). PHYSICAL EXAM: BP 119/77 (BP Site: Left Arm, BP Position: Sitting, BP Cuff Size: Regular Adult) Pulse 74 Ht 167.6 cm (5' 6) Wt 67.7 kg (149 lb 4.8 oz) SpO2 97% BMI 24.10 kg/m? General: no distress, accompanied by family Neck : Neck veins are not distended, no carotid bruits Cardiac: RRR w LVOTO murmur USB and MR murmur apex Chest: Chest clear to percussion and auscultation Abdomen: Normal, Palpation normal, Bowel Sounds: Present Extremities: normal exam of the extremities, no edema present Pulses: posterior tibial pulses present both My pleasure to see Ms. Sharpe today regarding LVOT obstruction and degenerative mitral regurgitation. Ms. Sharpe is a pleasant 78 year old lady with history of hypertension, hyperlipidemia as well as atrial fibrillation on amiodarone and anticoagulation of warfarin. She unfortunately had a functional decline over the last 6-12 months that has been progressive and a result of exertional dyspnea and fatigue. No exertional chest tightness, no orthopnea or PND. No lower extremity swelling. I reviewed a number of surface and transesophageal echocardiograms over the last one year all of which taken together demonstrate normal ejection fraction, moderate to severe upper septal hypertrophy measuring between 1.9 and 2.1cm in thickness with LVOT obstruction as a result of the upper septal hypertrophy and associated GUI but also significant mitral regurgitation that is anteriorly directed as a result of posterior leaflet prolapse with a small piece of flail. Physical examination is as above ASSESSMENT AND PLAN: Again my pleasure to see Ms. Sharpe today regarding hypertrophic cardiomyopathy and degenerative MR. While alcohol septal ablation is technically feasible on the basis of her coronary angiogram and the 1st septal imcu specialist as well as the upper septum knuckle and hypertrophy therein, it is highly unclear to me the degree of benefit that she would derive from this as she also had clearly has degenerative mitral regurgitation as a result of posterior leaflet pathology. It is especially clear that this is a primary issue as well given the fact that her MR is predominately anteriorly directed as a result of this MV pathology, and not posteriorly directed as would be expected with LVOT obstruction/GUI. I certainly do not want to proceed with septal ablation until we have a better sense from Dr. Jo what is her candidacy for cardiac surgery for septal myectomy and mitral valve repair. If surgery is not an option, then we can proceed with ASA for a hope for functional benefit in that regard. She is certainly scheduled for septal ablation with me on the day after this visit which we should be able to do by the bilateral radial approach. However, if I have not yet heard from Dr. Jo about her surgical candidacy, or if she is a surgical candidate, we will cancel that appointment. Jay Rich MD Addendum Dr. Jo agrees for cardiac surgery CNOV Observed: 06/10/2018 Status: COMPLETED Source: [place] 3:30 PM [facility] REPOSITORY Office Visit (CATHMN) PRISCILLA SHARPE ([id number]) 1940 F Date Time Provider Department 06/10/18 3:30 PM JAY RICH CATHARIEL During your visit today, we recorded the following information about you: Pulse Blood pressure Weight Height 74/minute 119/77 67.7 kg 1.676 m Jay Rich MD, 06/18/2018 2:55 PM Signed [facility] Department of Cardiovascular Medicine SECTION OF INTERVENTIONAL CARDIOLOGY OUTPATIENT VISIT DATE June 10, 2018 OUTPATIENT VISIT TYPE CONSULTATION PRIMARY CARE PHYSICIAN: Alisia Pacheco MD [address] [place] [address] Brandon Kemp CHIEF COMPLAINT: Alcohol ablation MR . HISTORY OF PRESENT ILLNESS: Cardiac consultation at the request of Dr. Jay Rich.A copy of this consultation note will be provided to the requesting physician by way of shared Medical record or letter to requesting physician via US mail. Ms. Sharpe is a 78 year old female who is seen today for HOCM and DMR. NURSING INTAKE: Mrs. Sharpe is a 78 yo female with h/o PAF - cardioversion 05/18, 10/18, HCM, HTN- HL - declines statinMVP with mitral insufficiency - severeCHF - diastolic, Long QT and h/o smoking who presents for evaluation of MR and HOCM She denies DM, FH of premature CAD or prior RI She reports h/o afib last year And had undergone DCC X2 She has noted SOB with exertion for the past 6 months No rest, orthopnea, PND or LE edema DANIEL CONCLUSIONS: - Exam indication: Re-evaluation of known valvular heart disease with change in clinical status - The left ventricle is normal in size. There is severe upper septal left ventricular hypertrophy. Left ventricular systolic function is normal. EF = 60 ? 5% (visual est.) - The right ventricle is normal in size. Right ventricular systolic function is normal. - The left atrial cavity is severely dilated. - No left atrial appendage thrombi. - Eccentric anteriorly directed severe MR due to posterior leaflet prolapse - Significant LVOT obstruction (GUI) with peak gradient of 86 mmHg - No increase in heart rate post amyl, no significant change in gradient ? - Exam was compared with the prior echocardiographic exam performed on 01/07/17. Mitral regurgitation is now identified as severe and a significant LVOT gradient was observed. 11/30/17 Coronary angiogram SYNGO Diet / Nutrition: Low Salt Weight: no change since last visit Exercise: Not as active . 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 Monson follows for benign tumor removed 2002 - Unspecified essential hypertension 10/06/2008 PAST SURGICAL HISTORY Procedure Laterality Date - PAST SURGICAL HISTORY OF 2003 tumor removed from bladder SOCIAL HISTORY Social History Substance Use Topics - Smoking status: Former Smoker Packs/day: 1.00 Years: 58.00 Types: Cigarettes Start date: 1955 Quit date: 07/02/2013 - Smokeless tobacco: Never Used Comment: No smoking in childhood home. Spouse quit smoking years before patient did. - Alcohol use Yes Comment: occasional FAMILY HISTORY Problem Relation Age of Onset - None Father - None Mother - Myocardial infarction [OTHER] Paternal Grandmother 80 ALLERGIES: ALLERGIES Allergen Reactions - Zyloprim [Allopurin* Rash - Environmental [Othe* Intolerance rhinitis - Tramadol Other: See Comments made patient woozy/dizzy MEDICATIONS: potassium chloride (K-TAB) 10 mEq tablet Take 10 mEq by mouth once daily. predniSONE (DELTASONE) 10 mg tablet 4 tablets daily for 3 days, 3 tablets daily for 3 days, 2 tablets daily for 3 days, 1 tablet daily for 3 days. amoxicillin-clavulanic acid (AUGMENTIN) 875-125 mg per tablet Take 1 tablet by mouth twice daily for 7 days. amiodarone (PACERONE) 200 mg tablet Take 1 tablet by mouth once daily. umeclidinium-vilanterol (ANORO ELLIPTA) 62.5-25 mcg/actuation inhaler Inhale one inhalation as instructed once daily warfarin (COUMADIN) 2 mg tablet Take 2 mg by mouth once daily. furosemide (LASIX) 40 mg tablet Take 1 tablet by mouth once daily. atenolol (TENORMIN) 50 mg tablet Take 0.5 tablets by mouth once daily. magnesium oxide (MAGOX) 400 mg tablet Take 1 tablet by mouth once daily. albuterol HFA (VENTOLIN HFA) 90 mcg/actuation inhaler Inhale 2 Puffs as instructed every 4 hours as needed for Wheezing/Shortness of Breath. Cholecalciferol, Vitamin D3, 1,000 unit cap Take 1 capsule by mouth once daily. GLUCOSAM SUL NA/CHONDR WEATHERS A NA (GLUCOSAMINE AND CHONDROIT SUL.NA ORAL) Take 1 tablet by mouth once daily. COMPOUNDED PRESCRIPTION Please perform nocturnal oximetry on RA. DME: [employer]. REVIEW OF SYSTEMS: GENERAL: no fever, no chills and no change in weight HEENT: no headaches, no difficulty swallowing, dentures SKIN: no rashes and no ulcers RESPIRATORY: no cough, no orthopnea, no paroxysmal nocturnal dyspnea, no asthma, no COPD, shortness of breath and dyspnea on exertion CARDIOVASCULAR: no chest pain, no dizziness, no syncope, no claudication, no edema and See HPI GASTROINTESTINAL: no abdominal pain, no nausea, no vomiting and no melanotic stools GENITOURINARY: no dysuria MUSCULOSKELETAL: joint pain NEUROLOGIC: numbness and tingling HEMATOLOGY: no bruising easily, no anemia and no cancer ENDOCRINE: no diabetes and no thyroid disease PSYCH: sleep disturbance PHYSICAL EXAMINATION: BP 119/77 Pulse 74 Ht 5' 6 (1.68m) Wt 149 lb 4.8 oz (67.7kg) SpO2 97% BMI 24.11 kg/(m2). PHYSICAL EXAM: BP 119/77 (BP Site: Left Arm, BP Position: Sitting, BP Cuff Size: Regular Adult) Pulse 74 Ht 167.6 cm (5' 6) Wt 67.7 kg (149 lb 4.8 oz) SpO2 97% BMI 24.10 kg/m? General: no distress, accompanied by family Neck : Neck veins are not distended, no carotid bruits Cardiac: RRR w LVOTO murmur USB and MR murmur apex Chest: Chest clear to percussion and auscultation Abdomen: Normal, Palpation normal, Bowel Sounds: Present Extremities: normal exam of the extremities, no edema present Pulses: posterior tibial pulses present both My pleasure to see Ms. Sharpe today regarding LVOT obstruction and degenerative mitral regurgitation. Ms. Sharpe is a pleasant 78 year old lady with history of hypertension, hyperlipidemia as well as atrial fibrillation on amiodarone and anticoagulation of warfarin. She unfortunately had a functional decline over the last 6-12 months that has been progressive and a result of exertional dyspnea and fatigue. No exertional chest tightness, no orthopnea or PND. No lower extremity swelling. I reviewed a number of surface and transesophageal echocardiograms over the last one year all of which taken together demonstrate normal ejection fraction, moderate to severe upper septal hypertrophy measuring between 1.9 and 2.1cm in thickness with LVOT obstruction as a result of the upper septal hypertrophy and associated GUI but also significant mitral regurgitation that is anteriorly directed as a result of posterior leaflet prolapse with a small piece of flail. Physical examination is as above ASSESSMENT AND PLAN: Again my pleasure to see Ms. Sharpe today regarding hypertrophic cardiomyopathy and degenerative MR. While alcohol septal ablation is technically feasible on the basis of her coronary angiogram and the 1st septal imcu specialist as well as the upper septum knuckle and hypertrophy therein, it is highly unclear to me the degree of benefit that she would derive from this as she also had clearly has degenerative mitral regurgitation as a result of posterior leaflet pathology. It is especially clear that this is a primary issue as well given the fact that her MR is predominately anteriorly directed as a result of this MV pathology, and not posteriorly directed as would be expected with LVOT obstruction/GUI. I certainly do not want to proceed with septal ablation until we have a better sense from Dr. Jo what is her candidacy for cardiac surgery for septal myectomy and mitral valve repair. If surgery is not an option, then we can proceed with ASA for a hope for functional benefit in that regard. She is certainly scheduled for septal ablation with me on the day after this visit which we should be able to do by the bilateral radial approach. However, if I have not yet heard from Dr. Jo about her surgical candidacy, or if she is a surgical candidate, we will cancel that appointment. Jay Rich MD Addendum Dr. Jo agrees for cardiac surgery Referring Provider: JAY RICH [[id number]] Allergies As of Date: 06/10/2018 Noted Allergy Reaction ZYLOPRIM (ALLOPURINOL) 05/26/2017 2 - Rash environmental [Other] 12/30/2005 5 - Intolerance Comments: rhinitis TRAMADOL 03/10/2016 14 - Other: See Comments Comments: made patient woozy/dizzy Date Reviewed: 06/10/2018 Reviewed by: Peg (Bharath) BHARATH Mercado - Fully Assessed Reason for Visit: Evaluation for alcohol ablation [Other] Primary Visit Diagnosis:Persistent atrial fibrillation (HCC) [I48.1] Other Visit Diagnoses:Non-rheumatic mitral regurgitation [I34.0] Essential hypertension [I10] HOCM (hypertrophic obstructive cardiomyopathy) (HCC) [I42.1] Prescriptions as of 06/10/2018 Sig: POTASSIUM CHLORIDE ER 10 MEQ * Take 10 mEq by mouth once kodi* AMOXICILLIN 875 MG-POTASSIUM * Take 1 tablet by mouth twice * X PREDNISONE 10 MG TABLET 4 tablets daily for 3 days, 3* Patient not taking: Reported on 06/14/2018 AMIODARONE 200 MG TABLET Take 1 tablet by mouth once d* UMECLIDINIUM 62.5 MCG-VILANTE* Inhale one inhalation as inst* WARFARIN 2 MG TABLET Take 2 mg by mouth once daily. FUROSEMIDE 40 MG TABLET Take 1 tablet by mouth once d* ATENOLOL 50 MG TABLET Take 0.5 tablets by mouth onc* MAGNESIUM OXIDE 400 MG TABLET Take 1 tablet by mouth once d* ALBUTEROL SULFATE HFA 90 MCG/* Inhale 2 Puffs as instructed * CHOLECALCIFEROL (VITAMIN D3) * Take 1 capsule by mouth once * GLUCOSAMINE AND CHONDROIT SUL.N* Take 1 tablet by mouth once d* COMPOUNDED PRESCRIPTION Please perform nocturnal oxim* Medication notes this encounter WARFARIN 2 MG TABLET >> Peg Mercado, RN, RN 06/10/2018 3:46 PM >> PEG MERCADO Ana Jun 10, 2018 3:46 PM Last dose 06/05/18 Problem List As Of Date 06/10/2018 Noted Resolved 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 IMPAIRED FASTING GLUCOSE [R73.01] INVALID FOR* Essential hypertension [I10] INVALID FOR* More... Osteoporosis [M81.0] INVALID FOR* More... Vitamin D Deficiency [E55.9] INVALID FOR* More... MR (mitral regurgitation) [I34.0] IBS (irritable bowel syndrome) [K58.9] More... 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 HOCM (hypertrophic obstructive cardiomyopathy) *INVALID FOR* Medications Discontinued During This Encounter amiodarone (PACERONE) 200 mg tablet 90 t* 2 11/23/2017 06/10/2018 Class: Med Update Route: ORAL Sig: Take 1 tablet by mouth once daily. Patient not taking: Reported on 05/12/2018 Disc: Reason for discontinue is not on file. aspirin 325 mg tablet 06/10/2018 Class: Historical Med Route: ORAL Sig: Take 325 mg by mouth once daily. Disc: Reason for discontinue is not on file. benzonatate (TESSALON PERLES) 100 mg* 20 c* 0 12/06/2017 06/10/2018 Route: ORAL Sig: Take 2 capsules by mouth three times daily as needed for Cough. Patient not taking: Reported on 05/12/2018 Disc: Reason for discontinue is not on file. potassium chloride SR (MICRO-K) 10 m* 120 * 5 10/17/2017 06/10/2018 Route: ORAL Sig: Take 2 capsules by mouth twice daily. on days taking furosemide (Lasix) Disc: Reason for discontinue is not on file. Encounter Status:Closed by JAY RICH MD on 06/18/18 CBC Collected: 06/10/2018 Status: F Source: [place] 3:10 PM [facility] REPOSITORY TYPE CODE TESTS RESULT OUT OF REFERENCE UNITS RANGE LAB WBC 3.70-11.00 k/uL WBC 10.39 LAB RBC 3.90-5.20 m/uL RBC 4.83 LAB HGB 11.5-15.5 g/dL Hemoglobin 12.7 LAB HCT 36.0-46.0 % Hematocrit 40.9 LAB MCV 80.0-100.0 fL MCV 84.7 LAB MCH 26.0-34.0 pG MCH 26.3 LAB MCHC 30.5-36.0 g/dL MCHC 31.1 LAB RDWCV 11.5-15.0 % RDW-CV High 16.0 LAB PLTCT 150-400 k/uL Platelet Count 279 LAB MPV 9.0-12.7 fL MPV 9.7 LAB ABSNUC <0.01 k/uL Absolute nRBC <0.01 Performed By: #### CBC, CMP #### [facility] [address] [place], [place] [address] COMP METABOLIC PANEL Collected: 06/10/2018 Status: F Source: [place] 3:10 PM [facility] REPOSITORY TYPE CODE TESTS RESULT OUT OF REFERENCE UNITS RANGE LAB TP 6.3-8.0 g/dL Protein, Total 6.8 LAB ALB 3.9-4.9 g/dL Albumin 4.1 LAB CA 8.5-10.2 mg/dL Calcium, Total 9.2 LAB TBIL 0.2-1.3 mg/dL Bilirubin, Total 0.5 LAB ALKP 32-117 U/L Alkaline Phosphatase 76 LAB AST 13-35 U/L AST 18 LAB GLU 74-99 mg/dL Glucose High 141 Result Comment: The [place] [employer] (ADA) provides guidance for cutoff values for fasting glucose and random glucose. The ADA defines fasting as no caloric intake for at least 8 hours. Fas ting plasma glucose results between 100 to 125 mg/dL indicate increased risk for diabetes (prediabetes). Fasting plasma glucose results greater than or equal to 126 mg/dL meet the criteria for diagnosis of diabetes. In the absence of unequivocal hyperglycemia, results should be confirmed by repeat testing. In a patient with classic symptoms of hyperglycemia or hyperglycemic crisis, random plasma glucose results greater than or equal to 200 mg/dL meet the criteria for diagnosis of diabetes. Reference: Standards of Medical Care in Diabetes 2016, [place] [employer] Association. Diabetes Care. 2016.39(Suppl 1). LAB BUN 7-21 mg/dL BUN High 26 LAB CRET 0.58-0.96 mg/dL Creatinine High 1.15 LAB NA 136-144 mmol/L Sodium 142 LAB K 3.7-5.1 mmol/L Potassium 3.7 LAB CL 97-105 mmol/L Chloride 102 LAB CO2 22-30 mmol/L CO2 30 LAB AGAP 9-18 mmol/L Anion Gap 10 LAB ALT 7-38 U/L ALT 14 LAB GFRAA eGFR- Amer. 55 LAB GFRNAA . eGFR-All Other Races 46 Result Comment: eGFR (Estimated GFR) Units of measure: mL/min/1.73 meters squared eGFR is derived from the reexpressed MDRD Study equation using the following parameters: serum creatinine, age, gender and race. The creatinine assay has been calibrated to be traceable to IDMS. An eGFR <60 mL/min/1.73m2 for >3 months is consistent with chronic kidney disease. Refer to KDOQI guidelines for clinical interpretation. In patients with unstable renal function, e.g. those with acute kidney injury, the eGFR may not accurately reflect actual GFR. Performed By: #### CBC, CMP #### [facility] [address] [address] ALT Collected: 06/10/2018 Status: F Source: [place] 3:10 PM [facility] REPOSITORY TYPE CODE TESTS RESULT OUT OF RANGE REFERENCE UNITS LAB ALT 7-38 U/L ALT 16 Performed By: #### ALT, TSH #### [facility] [address] [address] TSH Collected: 06/10/2018 Status: F Source: [place] 3:10 PM [facility] REPOSITORY TYPE CODE TESTS RESULT OUT OF RANGE REFERENCE UNITS LAB TSH 0.400-5.500 uU/mL TSH 1.100 Performed By: #### ALT, TSH #### [facility] [address] [address] PROGRESS Observed: 06/10/2018 Status: COMPLETED Source: [place] 1:56 PM [facility] REPOSITORY HNO ID: [id number] Author: Sari ElizondoRn) BAHRATH Morton Service: (none) Author Type: Registered Nurse Type: Progress Notes Filed: 06/10/2018 1:56 PM Note Text: 06/10/2018 1:56 PM Order reviewed by nurse:yes Medications: Amyl Nitrite - dosage 0.3ml inhalation during echo exam Reaction: No CNOV Observed: 06/10/2018 Status: COMPLETED Source: [place] 1:40 PM [facility] REPOSITORY Office Visit (CFLAMN) TONYPRISCILLA ([id number]) 1940 F Date Time Provider Department 06/10/18 1:40 PM ECHO A17 CARD MAIN CFLAMN During your visit today, we recorded the following information about you: Sari Morton RN, RN 06/10/2018 1:56 PM Signed 06/10/2018 1:56 PM Order reviewed by nurse:yes Medications: Amyl Nitrite - dosage 0.3ml inhalation during echo exam Reaction: No Referring Provider: JAY RICH [[id number]] Allergies As of Date: 06/10/2018 Noted Allergy Reaction ZYLOPRIM (ALLOPURINOL) 05/26/2017 2 - Rash environmental [Other] 12/30/2005 5 - Intolerance Comments: rhinitis TRAMADOL 03/10/2016 14 - Other: See Comments Comments: made patient woozy/dizzy Date Reviewed: 06/10/2018 Reviewed by: Sari (Rn) BHARATH Morton - Fully Assessed Reason for Visit: Procedure [88] Cmt: ech with amyl nitrite Visit Diagnosis:HOCM (hypertrophic obstructive cardiomyopathy) ([facility]) [I42.1] Order(s):ECHO [[id number]] Order #: [id number]: 1 Prescriptions as of 06/10/2018 Sig: PREDNISONE 10 MG TABLET 4 tablets daily for 3 days, 3* COMPOUNDED PRESCRIPTION Please perform nocturnal oxim* AMOXICILLIN 875 MG-POTASSIUM * Take 1 tablet by mouth twice * AMIODARONE 200 MG TABLET Take 1 tablet by mouth once d* UMECLIDINIUM 62.5 MCG-VILANTE* Inhale one inhalation as inst* WARFARIN 2 MG TABLET Take 2 mg by mouth once daily. BENZONATATE 100 MG CAPSULE Take 2 capsules by mouth thre* Patient not taking: Reported on 05/12/2018 FUROSEMIDE 40 MG TABLET Take 1 tablet by mouth once d* ASPIRIN 325 MG TABLET Take 325 mg by mouth once kodi* AMIODARONE 200 MG TABLET Take 1 tablet by mouth once d* Patient not taking: Reported on 05/12/2018 ATENOLOL 50 MG TABLET Take 0.5 tablets by mouth onc* MAGNESIUM OXIDE 400 MG TABLET Take 1 tablet by mouth once d* POTASSIUM CHLORIDE ER 10 MEQ * Take 2 capsules by mouth twic* ALBUTEROL SULFATE HFA 90 MCG/* Inhale 2 Puffs as instructed * CHOLECALCIFEROL (VITAMIN D3) * Take 1 capsule by mouth once * GLUCOSAMINE AND CHONDROIT SUL.N* Take 1 tablet by mouth once d* Problem List As Of Date 06/10/2018 Noted Resolved 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 IMPAIRED FASTING GLUCOSE [R73.01] INVALID FOR* Essential hypertension [I10] INVALID FOR* More... Osteoporosis [M81.0] INVALID FOR* More... Vitamin D Deficiency [E55.9] INVALID FOR* More... MR (mitral regurgitation) [I34.0] IBS (irritable bowel syndrome) [K58.9] More... 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 HOCM (hypertrophic obstructive cardiomyopathy) *INVALID FOR* Encounter Status:Closed by SARI MORTON on 06/10/18 ECG COMPLETE W Observed: 06/10/2018 Status: F Source: [place] INTERPRETATION 12:57 PM [facility] REPOSITORY NAME : PRISCILLA SHARPE PID : [id number] : 1940 Gender : Female Race : ORD : [id number] Procedure Date : Jun 10 2018 12:57:36 Edit Date : Jun 16 2018 12:36:09 Diagnosis:NORMAL SINUS RHYTHM WITH 1ST DEGREE AV BLOCK LATERAL MYOCARDIAL INFARCTION , AGE UNDETERMINED PROLONGED QT INTERVAL OR TU FUSION, CONSIDER HYPOKALEMIA ABNORMAL ECG Confirmed by BRETT MORELAND M.D. ([id number]) on 06/16/2018 12:13:25 PM Ventricular Rate : 65 BPM Atrial Rate : 65 BPM P-R Interval : 270 ms QRS Duration : 110 ms Q-T Interval : 512 ms QTC Calculation(Bezet) : 532 ms P Friendship : 46 degrees R Friendship : -7 degrees T Friendship : 45 degrees Test Reason : Location : 119 : A17 A17 Overread By : BRETT MORELAND M.D. Edited By : BRETT MORELAND M.D. Referred By : JAY RICH Acquired by : CHRISTINE ALONZO Observed: 06/10/2018 Status: COMPLETED Source: [place] 12:00 AM [facility] REPOSITORY Letter Text Javier Villarreal Department of Cardiovascular Medicine [address] [place] [address] /[place] [id number] Office: [phone] June 10, 2018 Priscilla Sharpe [address] [place] [address] NAME: Priscilla Sharpe [facility] NO: [id number] DATE OF SERVICE: 06/10/2018 My pleasure to see Ms. Sharpe today regarding LVOT obstruction and degenerative mitral regurgitation. Ms. Sharpe is a pleasant 78 year old lady with history of hypertension, hyperlipidemia as well as atrial fibrillation on amiodarone and anticoagulation of warfarin. She unfortunately had a functional decline over the last 6-12 months that has been progressive and a result of exertional dyspnea and fatigue. No exertional chest tightness, no orthopnea or PND. No lower extremity swelling. I reviewed a number of surface and transesophageal echocardiograms over the last one year all of which taken together demonstrate normal ejection fraction, moderate to severe upper septal hypertrophy measuring between 1.9 and 2.1cm in thickness with LVOT obstruction as a result of the upper septal hypertrophy and associated GUI but also significant mitral regurgitation that is anteriorly directed as a result of posterior leaflet prolapse with a small piece of flail. Physical examination is as above ASSESSMENT AND PLAN: Again my pleasure to see Ms. Sharpe today regarding hypertrophic cardiomyopathy and degenerative MR. While alcohol septal ablation is technically feasible on the basis of her coronary angiogram and the 1st septal imcu specialist as well as the upper septum knuckle and hypertrophy therein, it is highly unclear to me the degree of benefit that she would derive from this as she also had clearly has degenerative mitral regurgitation as a result of posterior leaflet pathology. It is especially clear that this is a primary issue as well given the fact that her MR is predominately anteriorly directed as a result of this MV pathology, and not posteriorly directed as would be expected with LVOT obstruction/GUI. I certainly do not want to proceed with septal ablation until we have a better sense from Dr. Jo what is her candidacy for cardiac surgery for septal myectomy and mitral valve repair. If surgery is not an option, then we can proceed with ASA for a hope for functional benefit in that regard. She is certainly scheduled for septal ablation with me on the day after this visit which we should be able to do by the bilateral radial approach. However, if I have not yet heard from Dr. Jo about her surgical candidacy, or if she is a surgical candidate, we will cancel that appointment. Addendum Dr. Jo agrees for cardiac surgery. Please feel free to contact me with any questions. Sincerely yours, MD CHASE Villarreal/ph OMID Observed: 06/03/2018 Status: COMPLETED Source: [place] 11:30 AM [facility] REPOSITORY Office Visit (PULMWS) JAMEPRISCILLA CHONG ([id number]) 1940 F Date Time Provider Department 06/03/18 11:30 AM AALIYAH STONE During your visit today, we recorded the following information about you: Pulse Respiration Blood pressure Weight 64/minute 17/minute 112/68 68.9 kg Aaliyah Stone PA-C 06/03/2018 12:06 PM Signed [facility] [place], 06/03/18: HPI: The patient is here for follow up of COPD. PMH: HTN, Diastolic CHF, MVP, Hyperlipidemia, A Fib, Hypertrophic Obstructive Cardiomyopathy, Small cell lymphoma s/p chemotherapy. Former smoker, quit 2012. 58 pack years. The last Pulmonary Clinic visit was 04/12/18. Since then the patient was admitted to [facility] in [place] in early May for shortness of breath and leg weakness. After she returned home, she presented to the [facility] ED 05/11/18 for shortness of breath. CXR showed no obvious overt heart failure or infiltrate. CTA negative for PE. BNP was slightly higher. Patient was 99% on RA at rest. However, she dropped below 88% with exertion. Patient was sent home with orders for supplemental oxygen. Today, patient states she continues with shortness of breath and cough. Daily productive cough. Change in sputum amount and color. Brownish/green for 1 week with small amounts of blood occasionally. No pleuritic chest pain. No fevers or chills. Occasional night sweats. Occasional wheezing. No dyspnea at rest. Exertional dyspnea with walking fast, climbing stairs. Claims to be consistently compliant with prescribed maintenance Rx. Every couple days rescue bronchodilator use, with good relief. Patient unsure how much oxygen she is wearing at night. Currently not wearing oxygen during the day. DME: [employer]. PMH: Updated with patient today. FAMH: Updated with patient today. SOCH: Updated with patient today. Immunization History Administered Date(s) Administered Influenza Seasonal - High Dose - Age 65+ 08/23/2013 08/18/2017 Influenza Seasonal Inj Age 3+ 07/17/2015 Influenza Vaccine, Split-Non Spec 07/17/2012 Pneumococcal-13 Vac Conjugate 09/01/2015 Pneumovax 06/13/2010 TD Adult 11/02/1994 07/19/2012 ROS: General: Generally feels short of breath. Appetite good. Weight stable. Eyes, Ears, nose, throat: No post nasal drip, rhinorrhea, purulent nasal discharge, epistaxis. No hoarseness. Vision stable. Cardiac: No angina, edema, orthopnea. GI: No heartburn, dysphagia, diarrhea. 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 Musculoskeletal: No pain. Neuro: No headache, focal weakness, tremor. Skin: No rash. Otherwise negative. Allergies were reviewed and updated, and medications were reconciled with the patient. PHYSICAL EXAMINATION: BP 112/68 Pulse 64 Resp 17 Wt 152 lb (68.9kg) SpO2 90% Gen: No acute distress. Cooperative with examination. ENT: Oral hygeine and dentition good. Pharynx clear. No halitosis. Resp: No stridor, accessory respiratory muscle use, supra- sternal or intercostal retractions. No wheezes, crackles. CV: Irregular rythm. Heart tones normal. Radial pulses normal. Abd: Non distended. MSK: No kyphoscoliosis. Ext: Warm and well perfused. No clubbing, cyanosis, edema. Skin: No rash, ecchymoses. Neuro: Mental status normal. Affect normal. No tremor. DATA REVIEW: DATE: 04/12/18 10/16/17 07/02/17 FVC 2.46 (84 % pred) 2.67?(90?% pred) 2.60?(96?% pred) FEV1 1.47 (67 % pred) 1.58?(71?% pred) 1.39?(69?% pred) FEV1/FVC 0.60 0.59 0.54 ? 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 1. Start Augmentin 1 tablet twice daily for 7 days. 2. Start Prednisone taper as directed. vaccination, bronchodilators, inhaled corticosteroids, antibiotics, exercise/rehabilitation, and oxygen. 3. Continue maintenance medications. 4. Based on phone conversation with [employer], patient requires 2 L supplemental oxygen with exertion. 5. Will have [employer] perform nocturnal oximetry on RA. Further recommendations to follow. 6. Re-assess in 4-6 weeks, sooner if needed. . Complicated cardiac history including paroxysmal AFib s/p cardioversion x 2, severe mitral valve regurgitation, diastolic CHF. 1. Patient scheduled for septal myomectomy alcohol ablation at [facility] on June 11, 2018. I addressed the questions of the patient, and she expressed understanding and acceptance of my answers. 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 1. Start Augmentin 1 tablet twice daily for 7 days. 2. Start Prednisone taper as directed. vaccination, bronchodilators, inhaled corticosteroids, antibiotics, exercise/rehabilitation, and oxygen. 3. Continue maintenance medications. 4. Based on phone conversation with [employer], patient requires 2 L supplemental oxygen with exertion. 5. Will have [employer] perform nocturnal oximetry on RA. Further recommendations to follow. 6. Re-assess in 4-6 weeks, sooner if needed. . Complicated cardiac history including paroxysmal AFib s/p cardioversion x 2, severe mitral valve regurgitation, diastolic CHF. 1. Patient scheduled for septal myomectomy alcohol ablation at [facility] on June 11, 2018. Referring Provider: SELF [[id number]] Allergies As of Date: 06/03/2018 Noted Allergy Reaction ZYLOPRIM (ALLOPURINOL) 05/26/2017 2 - Rash environmental [Other] 12/30/2005 5 - Intolerance Comments: rhinitis TRAMADOL 03/10/2016 14 - Other: See Comments Comments: made patient woozy/dizzy Date Reviewed: 06/03/2018 Reviewed by: Aaliyah Stone - Fully Assessed Reason for Visit: Established Patient [175] Cmt: follow up emphysema Primary Visit Diagnosis:COPD with exacerbation (HCC) [J44.1] Other Visit Diagnosis:Pulmonary emphysema, unspecified emphysema type (HCC) [J43.9] Order(s):predniSONE (DELTASONE) 10 mg tablet4 tablets daily for 3 days, 3 tablets daily for 3 days, 2 tablets daily for 3 days, 1 tablet daily for 3 days.Disp: 30 tabletRfl: 0 COMPOUNDED PRESCRIPTIONPlease perform nocturnal oximetry on RA. DME: [employer].Disp: 1 EachRfl: 0 amoxicillin-clavulanic acid (AUGMENTIN) 875-125 mg per tabletTake 1 tablet by mouth twice daily for 7 days.Disp: 14 tabletRfl: 0 SPIROMETRY BASELINE ONLY [[id number]] Order #: [id number] FUTURE OXIMETRY WITH AMBULATION [[id number]] Order #: [id number] FUTURE Prescriptions as of 06/03/2018 Sig: AMIODARONE 200 MG TABLET Take 1 tablet by mouth once d* UMECLIDINIUM 62.5 MCG-VILANTE* Inhale one inhalation as inst* WARFARIN 2 MG TABLET Take 2 mg by mouth once daily. FUROSEMIDE 40 MG TABLET Take 1 tablet by mouth once d* ATENOLOL 50 MG TABLET Take 0.5 tablets by mouth onc* MAGNESIUM OXIDE 400 MG TABLET Take 1 tablet by mouth once d* POTASSIUM CHLORIDE ER 10 MEQ * Take 2 capsules by mouth twic* ALBUTEROL SULFATE HFA 90 MCG/* Inhale 2 Puffs as instructed * CHOLECALCIFEROL (VITAMIN D3) * Take 1 capsule by mouth once * PREDNISONE 10 MG TABLET 4 tablets daily for 3 days, 3* COMPOUNDED PRESCRIPTION Please perform nocturnal oxim* AMOXICILLIN 875 MG-POTASSIUM * Take 1 tablet by mouth twice * BENZONATATE 100 MG CAPSULE Take 2 capsules by mouth thre* Patient not taking: Reported on 05/12/2018 ASPIRIN 325 MG TABLET Take 325 mg by mouth once kodi* AMIODARONE 200 MG TABLET Take 1 tablet by mouth once d* Patient not taking: Reported on 05/12/2018 GLUCOSAMINE AND CHONDROIT SUL.N* Take 1 tablet by mouth once d* Problem List As Of Date 06/03/2018 Noted Resolved 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 IMPAIRED FASTING GLUCOSE [R73.01] INVALID FOR* Essential hypertension [I10] INVALID FOR* More... Osteoporosis [M81.0] INVALID FOR* More... Vitamin D Deficiency [E55.9] INVALID FOR* More... MR (mitral regurgitation) [I34.0] IBS (irritable bowel syndrome) [K58.9] More... 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 1. Start Augmentin 1 tablet twice daily for 7 days. 2. Start Prednisone taper as directed. vaccination, bronchodilators, inhaled corticosteroids, antibiotics, exercise/rehabilitation, and oxygen. 3. Continue maintenance medications. 4. Based on phone conversation with [employer], patient requires 2 L supplemental oxygen with exertion. 5. Will have [employer] perform nocturnal oximetry on RA. Further recommendations to follow. 6. Re-assess in 4-6 weeks, sooner if needed. . Complicated cardiac history including paroxysmal AFib s/p cardioversion x 2, severe mitral valve regurgitation, diastolic CHF. 1. Patient scheduled for septal myomectomy alcohol ablation at [facility] on June 11, 2018. Prescriptions ordered this encounter Disp Refills Start End PREDNISONE 10 MG TABLET 30 t* 0 06/03/2018 Si tablets daily for 3 days, 3 tablets daily for 3 days, 2 tablets daily for 3 days, 1 tablet daily for 3 days. COMPOUNDED PRESCRIPTION 1 Ea* 0 06/03/2018 Class: Print RX Sig: Please perform nocturnal oximetry on RA. DME: [employer]. AMOXICILLIN 875 MG-POTASSIUM CLAVULA* 14 t* 0 06/03/2018 06/10/2018 Route: ORAL Sig: Take 1 tablet by mouth twice daily for 7 days. Disposition: Return in about 6 weeks (around 07/15/2018). Follow-up and Disposition History Recorded Encounter Status:Closed by AALIYAH STONE on 06/03/18 PROGRESS Observed: 06/03/2018 Status: COMPLETED Source: [place] 11:24 AM [facility] REPOSITORY HNO ID: [id number] Author: Aaliyah Stone Service: (none) Author Type: Physician Financial Operations Analyst Type: Progress Notes Filed: 06/03/2018 12:06 PM Note Text: [facility] [place], 06/03/18: HPI: The patient is here for follow up of COPD. PMH: HTN, Diastolic CHF, MVP, Hyperlipidemia, A Fib, Hypertrophic Obstructive Cardiomyopathy, Small cell lymphoma s/p chemotherapy. Former smoker, quit 2012. 58 pack years. The last Pulmonary Clinic visit was 04/12/18. Since then the patient was admitted to [facility] in [place] in early May for shortness of breath and leg weakness. After she returned home, she presented to the [facility] ED 05/11/18 for shortness of breath. CXR showed no obvious overt heart failure or infiltrate. CTA negative for PE. BNP was slightly higher. Patient was 99% on RA at rest. However, she dropped below 88% with exertion. Patient was sent home with orders for supplemental oxygen. Today, patient states she continues with shortness of breath and cough. Daily productive cough. Change in sputum amount and color. Brownish/green for 1 week with small amounts of blood occasionally. No pleuritic chest pain. No fevers or chills. Occasional night sweats. Occasional wheezing. No dyspnea at rest. Exertional dyspnea with walking fast, climbing stairs. Claims to be consistently compliant with prescribed maintenance Rx. Every couple days rescue bronchodilator use, with good relief. Patient unsure how much oxygen she is wearing at night. Currently not wearing oxygen during the day. DME: [employer]. PMH: Updated with patient today. FAMH: Updated with patient today. SOCH: Updated with patient today. Immunization History Administered Date(s) Administered Influenza Seasonal - High Dose - Age 65+ 08/23/2013 08/18/2017 Influenza Seasonal Inj Age 3+ 07/17/2015 Influenza Vaccine, Split-Non Spec 07/17/2012 Pneumococcal-13 Vac Conjugate 09/01/2015 Pneumovax 06/13/2010 TD Adult 11/02/1994 07/19/2012 ROS: General: Generally feels short of breath. Appetite good. Weight stable. Eyes, Ears, nose, throat: No post nasal drip, rhinorrhea, purulent nasal discharge, epistaxis. No hoarseness. Vision stable. Cardiac: No angina, edema, orthopnea. GI: No heartburn, dysphagia, diarrhea. 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 Musculoskeletal: No pain. Neuro: No headache, focal weakness, tremor. Skin: No rash. Otherwise negative. Allergies were reviewed and updated, and medications were reconciled with the patient. PHYSICAL EXAMINATION: BP 112/68 Pulse 64 Resp 17 Wt 152 lb (68.9kg) SpO2 90% Gen: No acute distress. Cooperative with examination. ENT: Oral hygeine and dentition good. Pharynx clear. No halitosis. Resp: No stridor, accessory respiratory muscle use, supra- sternal or intercostal retractions. No wheezes, crackles. CV: Irregular rythm. Heart tones normal. Radial pulses normal. Abd: Non distended. MSK: No kyphoscoliosis. Ext: Warm and well perfused. No clubbing, cyanosis, edema. Skin: No rash, ecchymoses. Neuro: Mental status normal. Affect normal. No tremor. DATA REVIEW: DATE: 04/12/18 10/16/17 07/02/17 FVC 2.46 (84 % pred) 2.67?(90?% pred) 2.60?(96?% pred) FEV1 1.47 (67 % pred) 1.58?(71?% pred) 1.39?(69?% pred) FEV1/FVC 0.60 0.59 0.54 ? 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 1. Start Augmentin 1 tablet twice daily for 7 days. 2. Start Prednisone taper as directed. vaccination, bronchodilators, inhaled corticosteroids, antibiotics, exercise/rehabilitation, and oxygen. 3. Continue maintenance medications. 4. Based on phone conversation with [employer], patient requires 2 L supplemental oxygen with exertion. 5. Will have [employer] perform nocturnal oximetry on RA. Further recommendations to follow. 6. Re-assess in 4-6 weeks, sooner if needed. . Complicated cardiac history including paroxysmal AFib s/p cardioversion x 2, severe mitral valve regurgitation, diastolic CHF. 1. Patient scheduled for septal myomectomy alcohol ablation at [facility] on June 11, 2018. I addressed the questions of the patient, and she expressed understanding and acceptance of my answers. Aaliyah Stone PA-C [facility] Respiratory [place] [facility] and Surgery [place] [address] [place] [address] PROGRESS Observed: 05/19/2018 Status: COMPLETED Source: [place] 3:35 PM [facility] REPOSITORY HNO ID: [id number] Author: Kimberly Atkins RN Service: (none) Author Type: (none) Type: Progress Notes Filed: 05/19/2018 3:38 PM Note Text: Patient notified of below. Verbalized understanding. Follow up scheduled for 06/02/18 PROGRESS Observed: 05/19/2018 Status: COMPLETED Source: [place] 3:34 PM [facility] REPOSITORY HNO ID: [id number] Author: Kimberly Atkins RN Service: (none) Author Type: (none) Type: Progress Notes Filed: 05/19/2018 3:34 PM Note Text: Per Dr. Pacheco: 1 mg MWF, 2mg all other days. Follow up in 1-2 weeks. PROGRESS Observed: 05/19/2018 Status: COMPLETED Source: [place] 3:33 PM [facility] REPOSITORY HNO ID: [id number] Author: Kimberly Atkins RN Service: (none) Author Type: (none) Type: Progress Notes Filed: 05/19/2018 3:34 PM Note Text: Patient had INR completed at [facility] Patient's INR is 3.5 Patient is currently taking 1mg TTH, 2mg all other days Patient's last dose change was 04/19/18 due to low INR at 1.7 Patient has had no medication and no change in diet. Advised patient that they would be contacted regarding medication dose and follow-up once reviewed by provider. After provider review, please contact patient with information and schedule follow-up appointment with coumadin clinic. 12 LEAD ELECTROCARDIOGRAM Observed: 05/13/2018 Status: F Source: [place] 1:41 PM [facility] REPOSITORY [facility] Cardiovascular Services [address] [place] [id number] 12 Lead EKG 05/11/18 1407 MR#: [id number] Acct: [id number] Name: PRISCILLA SHARPE Rep #: [id number] : 1940 78 From: Mart Souza MD Attending Dr: Status: DEP ER Ordering Dr: Pato Danielson DO Date: 05/11/18 Location: ED Sex: F C Admitted: Test Reason : REPEAT Blood Pressure : / mmHG Vent. Rate : 058 BPM Atrial Rate : 058 BPM P-R Int : 210 ms QRS Dur : 108 ms QT Int : 610 ms P-R-T Axes : 045 015 083 degrees QTc Int : 598 ms Sinus bradycardia with 1st degree A-V block Anterolateral infarct , age undetermined Prolonged QT Abnormal ECG Confirmed by MART SOUZA MD ([id number]), color matcher SHANKAR TERRAZAS ([id number]) on 05/13/2018 1:41:07 PM Referred By: VIRI Confirmed By:MART SOUZA MD 05/13/18 1341 Date Mart Souza MD CC: Pato Danielson DO; Alisia Pacheco MD Signed 12 LEAD ELECTROCARDIOGRAM Observed: 05/13/2018 Status: F Source: [place] 1:40 PM [facility] REPOSITORY [facility] Cardiovascular Services [address] [place] [address] 12 Lead EKG 05/11/18 1135 MR#: [id number] Acct: [id number] Name: PRISCILLA SHARPE Rep #: [id number] : 1940 78 From: Mart Souza MD Attending Dr: Status: DEP ER Ordering Dr: Pato Danielson DO Date: 05/11/18 Location: ED Sex: F C Admitted: Test Reason : CP Blood Pressure : / mmHG Vent. Rate : 056 BPM Atrial Rate : 416 BPM P-R Int : 000 ms QRS Dur : 102 ms QT Int : 622 ms P-R-T Axes : 058 -05 062 degrees QTc Int : 600 ms Normal sinus rhythm with 1st degree block Anterolateral infarct , age undetermined Prolonged QT Abnormal ECG Confirmed by MART SOUZA MD ([id number]), color matcher SHANKAR TERRAZAS ([id number]) on 05/13/2018 1:39:35 PM Referred By: VIRI Confirmed By:MART SOUZA MD 05/13/18 1339 Date Mart Souza MD CC: Pato Danielson DO; Alisia Pacheco MD Signed PROGRESS Observed: 05/12/2018 Status: COMPLETED Source: [place] 10:46 AM [facility] REPOSITORY HNO ID: [id number] Author: Brandon Argueta Service: (none) Author Type: Physician Type: Progress Notes Filed: 05/12/2018 1:15 PM Note Text: PERTINENT CARDIAC HISTORY PAF - cardioversion 05/18, 10/18 HCM HTN HL - declines statin MVP with mitral insufficiency - severe CHF - diastolic Long QT ADHERENCE TO GUIDELINES CIERRA-I or ARB for HF with prior LVEF<40 (NQF 0081) - N/A ASA or Plavix for ASHD (NQF 0067) - N/A Beta jhon for ASHD with prior RI or prior LVEF<40 (NQF 0070) - N/A Beta jhon for HF with prior LVEF<40 (NQF 0083) - N/A CIERRA-I or ARB for ASHD with DM or prior LVEF<40 (NQF 0066) - N/A Statin therapy for ASHD or FHL or DM - declines BMI documented and plan if >25 (NQF 0421) - lifestyle recommendation form Tobacco use screening and referral (NQF 0028) - lifestyle recommendation form Recommendation for whole food, plant based diet - lifestyle recommendation form CLINICAL IMPRESSION/PLAN: Priscilla Sharpe continues to have intermittent episodes of decompensated heart failure, probably related to episodes of transient atrial fibrillation. She has had demonstrated hypoxemia on 2 occasions over the last 2 weeks. On the most recent occasion, her transient palpitations were associated with ingestion of an alcoholic beverage. Her oxygen saturation with exercise is normal today, suggesting that there was a transient increase in pulmonary venous hypertension related to atrial fibrillation and worsening mitral insufficiency. She is in need of alcohol septal ablation, which will help with her dynamic outflow tract obstruction, mitral insufficiency and decrease her risk for atrial fibrillation. This procedure has been in the works now for 6 months. I will forward this to Dr. Rich to make sure that he is aware that she is having difficulty. No changes will be made in her medication at this time, other than a recommendation that she take an additional Lasix and potassium if she has a sensation of shortness of breath or palpitations. Hopefully this can prevent some of the emergency room visits. She has been advised not to ignore her symptoms. I will see her on a to be arranged basis pending the outcome of her septal ablation. Written and verbal health teaching given to patient, patient verbalizes understanding and agrees with treatment plan. DIAGNOSIS FOR VISIT: Mitral insufficiency PAF HISTORY OF PRESENT ILLNESS Priscilla Sharpe returns for follow-up of multiple cardiac issues, as noted above. Her alcohol septal ablation has been postponed until June due to a scheduling error. She has had 2 emergency department visits in the last 2 weeks for subacute shortness of breath associated with the feeling of palpitation. The most recent episode was yesterday. She went to the [facility] emergency department where she was noted to have normal oxygen saturation on rest but decreased to 88% while walking. Her BNP was slightly higher. She was not felt to require hospitalization. She was noted to be in sinus rhythm. She's Had No Recent Chest Discomfort. She's Had Otherwise Minimal Palpitation. Overall, Her Exercise Tolerance Is Stable with These Exceptions. She's Had No Edema, Syncope, TIAs, Amaurosis or Claudication. ALLERGIES: ALLERGIES Allergen Reactions - Zyloprim [Allopurin* Rash - Environmental [Othe* Intolerance rhinitis - Tramadol Other: See Comments made patient woozy/dizzy CURRENT OUTPATIENT MEDICATIONS: amiodarone (PACERONE) 200 mg tablet Take 1 tablet by mouth once daily. umeclidinium-vilanterol (ANORO ELLIPTA) 62.5-25 mcg/actuation inhaler Inhale one inhalation as instructed once daily furosemide (LASIX) 40 mg tablet Take 1 tablet by mouth once daily. atenolol (TENORMIN) 50 mg tablet Take 0.5 tablets by mouth once daily. magnesium oxide (MAGOX) 400 mg tablet Take 1 tablet by mouth once daily. potassium chloride SR (MICRO-K) 10 mEq CR capsule Take 2 capsules by mouth twice daily. on days taking furosemide (Lasix) albuterol HFA (VENTOLIN HFA) 90 mcg/actuation inhaler Inhale 2 Puffs as instructed every 4 hours as needed for Wheezing/Shortness of Breath. Cholecalciferol, Vitamin D3, 1,000 unit cap Take 1 capsule by mouth once daily. GLUCOSAM SUL NA/CHONDR WEATHERS A NA (GLUCOSAMINE AND CHONDROIT SUL.NA ORAL) Take 1 tablet by mouth once daily. warfarin (COUMADIN) 2 mg tablet Take 2 mg by mouth once daily. benzonatate (TESSALON PERLES) 100 mg capsule Take 2 capsules by mouth three times daily as needed for Cough. aspirin 325 mg tablet Take 325 mg by mouth once daily. amiodarone (PACERONE) 200 mg tablet Take 1 tablet by mouth once daily. PHYSICAL EXAMINATION: VITAL SIGNS: BP 134/71 Pulse 85 Wt 152 lb 11.2 oz (69.3kg) oxygen saturation was 94% at rest and increased to 96% with exercise Chest: Clear to percussion and auscultation. Trachea is midline. Air entry is equal. Cardiac: Regular rhythm. S1 and S2 are normal. PMI is nondisplaced. There are no murmurs, rubs or gallops. Carotids are brisk without bruits. JVP is less than 10 cm. Abdomen: Soft and nontender. There are no pulsatile masses or bruits. No liver enlargement. Bowel sounds are active. Extremities: No edema. Pulses are intact and symmetrical. Results from [facility] were reviewed. Troponin was undetectable. EKG showed no significant change and she was in sinus rhythm, by report. Potassium was 4.6. Chest CT showed no evidence of pulmonary embolism. There was some interstitial edema. Electronically Signed: Brandon Argueta MD May 12, 2018 10:46 AM CC: Alisia Pacheco MD CNOV Observed: 05/12/2018 Status: COMPLETED Source: [place] 10:00 AM [facility] REPOSITORY Office Visit (CAWSTR) PRISCILLA SHARPE ([id number]) 1940 F Date Time Provider Department 05/12/18 10:00 AM BRANDON ARGUETA During your visit today, we recorded the following information about you: Pulse Blood pressure Weight 85/minute 134/71 69.3 kg Brandon Argueta MD 05/12/2018 1:15 PM Addendum PERTINENT CARDIAC HISTORY PAF - cardioversion 05/18, 10/18 HCM HTN HL - declines statin MVP with mitral insufficiency - severe CHF - diastolic Long QT ADHERENCE TO GUIDELINES CIERRA-I or ARB for HF with prior LVEF<40 (NQF 0081) - N/A ASA or Plavix for ASHD (NQF 0067) - N/A Beta jhon for ASHD with prior RI or prior LVEF<40 (NQF 0070) - N/A Beta jhon for HF with prior LVEF<40 (NQF 0083) - N/A CIERRA-I or ARB for ASHD with DM or prior LVEF<40 (NQF 0066) - N/A Statin therapy for ASHD or FHL or DM - declines BMI documented and plan if >25 (NQF 0421) - lifestyle recommendation form Tobacco use screening and referral (NQF 0028) - lifestyle recommendation form Recommendation for whole food, plant based diet - lifestyle recommendation form CLINICAL IMPRESSION/PLAN: Priscilla Sharpe continues to have intermittent episodes of decompensated heart failure, probably related to episodes of transient atrial fibrillation. She has had demonstrated hypoxemia on 2 occasions over the last 2 weeks. On the most recent occasion, her transient palpitations were associated with ingestion of an alcoholic beverage. Her oxygen saturation with exercise is normal today, suggesting that there was a transient increase in pulmonary venous hypertension related to atrial fibrillation and worsening mitral insufficiency. She is in need of alcohol septal ablation, which will help with her dynamic outflow tract obstruction, mitral insufficiency and decrease her risk for atrial fibrillation. This procedure has been in the works now for 6 months. I will forward this to Dr. Rich to make sure that he is aware that she is having difficulty. No changes will be made in her medication at this time, other than a recommendation that she take an additional Lasix and potassium if she has a sensation of shortness of breath or palpitations. Hopefully this can prevent some of the emergency room visits. She has been advised not to ignore her symptoms. I will see her on a to be arranged basis pending the outcome of her septal ablation. Written and verbal health teaching given to patient, patient verbalizes understanding and agrees with treatment plan. DIAGNOSIS FOR VISIT: Mitral insufficiency PAF HISTORY OF PRESENT ILLNESS Priscilla Sharpe returns for follow-up of multiple cardiac issues, as noted above. Her alcohol septal ablation has been postponed until June due to a scheduling error. She has had 2 emergency department visits in the last 2 weeks for subacute shortness of breath associated with the feeling of palpitation. The most recent episode was yesterday. She went to the [facility] emergency department where she was noted to have normal oxygen saturation on rest but decreased to 88% while walking. Her BNP was slightly higher. She was not felt to require hospitalization. She was noted to be in sinus rhythm. She's Had No Recent Chest Discomfort. She's Had Otherwise Minimal Palpitation. Overall, Her Exercise Tolerance Is Stable with These Exceptions. She's Had No Edema, Syncope, TIAs, Amaurosis or Claudication. ALLERGIES: ALLERGIES Allergen Reactions - Zyloprim [Allopurin* Rash - Environmental [Othe* Intolerance rhinitis - Tramadol Other: See Comments made patient woozy/dizzy CURRENT OUTPATIENT MEDICATIONS: amiodarone (PACERONE) 200 mg tablet Take 1 tablet by mouth once daily. umeclidinium-vilanterol (ANORO ELLIPTA) 62.5-25 mcg/actuation inhaler Inhale one inhalation as instructed once daily furosemide (LASIX) 40 mg tablet Take 1 tablet by mouth once daily. atenolol (TENORMIN) 50 mg tablet Take 0.5 tablets by mouth once daily. magnesium oxide (MAGOX) 400 mg tablet Take 1 tablet by mouth once daily. potassium chloride SR (MICRO-K) 10 mEq CR capsule Take 2 capsules by mouth twice daily. on days taking furosemide (Lasix) albuterol HFA (VENTOLIN HFA) 90 mcg/actuation inhaler Inhale 2 Puffs as instructed every 4 hours as needed for Wheezing/Shortness of Breath. Cholecalciferol, Vitamin D3, 1,000 unit cap Take 1 capsule by mouth once daily. GLUCOSAM SUL NA/CHONDR WEATHERS A NA (GLUCOSAMINE AND CHONDROIT SUL.NA ORAL) Take 1 tablet by mouth once daily. warfarin (COUMADIN) 2 mg tablet Take 2 mg by mouth once daily. benzonatate (TESSALON PERLES) 100 mg capsule Take 2 capsules by mouth three times daily as needed for Cough. aspirin 325 mg tablet Take 325 mg by mouth once daily. amiodarone (PACERONE) 200 mg tablet Take 1 tablet by mouth once daily. PHYSICAL EXAMINATION: VITAL SIGNS: BP 134/71 Pulse 85 Wt 152 lb 11.2 oz (69.3kg) oxygen saturation was 94% at rest and increased to 96% with exercise Chest: Clear to percussion and auscultation. Trachea is midline. Air entry is equal. Cardiac: Regular rhythm. S1 and S2 are normal. PMI is nondisplaced. There are no murmurs, rubs or gallops. Carotids are brisk without bruits. JVP is less than 10 cm. Abdomen: Soft and nontender. There are no pulsatile masses or bruits. No liver enlargement. Bowel sounds are active. Extremities: No edema. Pulses are intact and symmetrical. Results from [facility] were reviewed. Troponin was undetectable. EKG showed no significant change and she was in sinus rhythm, by report. Potassium was 4.6. Chest CT showed no evidence of pulmonary embolism. There was some interstitial edema. Electronically Signed: Brandon Argueta MD May 12, 2018 10:46 AM CC: MD Brandon Hernandez MD 05/12/2018 10:47 AM Signed LIFESTYLE CHANGE A healthy lifestyle is the most important component of your overall treatment plan. Please give serious thought to the following areas and commit to making jail changes. EAT A WHOLE FOOD, PLANT BASED DIET The nutrition your body gets is more important than the medicine you take. What matters most is the overall way you eat. We encourage you to minimize the use of animal products (which include dairy and all meats except fatty fish) and use whole, unprocessed plant foods to provide your protein, vitamins and other nutrients. We have a lot of information to share with you on this topic. This is not a diet. It is a way of life that you will keep with you. EXERCISE REGULARLY It is not important to spend hours in the gym, lifting weights and perspiring heavily. A total of 2-3 hours per week of aerobic (causing you to be moderately short of breath) exercise is sufficient to improve your health. Talk to us before you begin a new exercise program, if you have heart disease or experience shortness of breath or chest pain. REDUCE STRESS Chronic emotional and physical stress leads to disease. Ways of reducing stress include meditation, visualization, prayer, yoga and other forms of relaxation therapy. Consistency is the aquino. Find a technique that works for you and do it every day. CULTIVATE RELATIONSHIPS Loneliness and isolation have a major negative impact on health. Seek out others who can love, care for and nurture you. Avoid hurtful relationships. MAINTAIN IDEAL BODY WEIGHT The best way to do this is to do all the things above. Our bodies naturally find the right weight if we keep moving and feed ourselves the right food. If your BMI is greater than 25, we strongly recommend a referral to a weight management program. Please speak to us or your family physician about available programs. AVOID NICOTINE IN ALL FORMS This includes all tobacco products, whether chewed, smoked, vaped, or rubbed on the skin. Smoking cessation programs, which can make use of tobacco substitutes, medications to suppress cravings and behavior management, are available. Please contact your family physician about programs in your area. Referring Provider: BRANDON ARGUETA [[id number]] Allergies As of Date: 05/12/2018 Noted Allergy Reaction ZYLOPRIM (ALLOPURINOL) 05/26/2017 2 - Rash environmental [Other] 12/30/2005 5 - Intolerance Comments: rhinitis TRAMADOL 03/10/2016 14 - Other: See Comments Comments: made patient woozy/dizzy Date Reviewed: 05/12/2018 Reviewed by: Anand Mejía RN - Fully Assessed Reason for Visit: Recheck [92] Primary Visit Diagnosis:PAF (paroxysmal atrial fibrillation) ([facility]) [I48.0] Other Visit Diagnoses:Hypertension, essential [I10] HOCM (hypertrophic obstructive cardiomyopathy) ([facility]) [I42.1] Prescriptions as of 05/12/2018 Sig: AMIODARONE 200 MG TABLET Take 1 tablet by mouth once d* UMECLIDINIUM 62.5 MCG-VILANTE* Inhale one inhalation as inst* FUROSEMIDE 40 MG TABLET Take 1 tablet by mouth once d* ATENOLOL 50 MG TABLET Take 0.5 tablets by mouth onc* MAGNESIUM OXIDE 400 MG TABLET Take 1 tablet by mouth once d* POTASSIUM CHLORIDE ER 10 MEQ * Take 2 capsules by mouth twic* ALBUTEROL SULFATE HFA 90 MCG/* Inhale 2 Puffs as instructed * CHOLECALCIFEROL (VITAMIN D3) * Take 1 capsule by mouth once * GLUCOSAMINE AND CHONDROIT SUL.N* Take 1 tablet by mouth once d* WARFARIN 2 MG TABLET Take 2 mg by mouth once daily. BENZONATATE 100 MG CAPSULE Take 2 capsules by mouth thre* Patient not taking: Reported on 05/12/2018 ASPIRIN 325 MG TABLET Take 325 mg by mouth once kodi* AMIODARONE 200 MG TABLET Take 1 tablet by mouth once d* Patient not taking: Reported on 05/12/2018 Problem List As Of Date 05/12/2018 Noted Resolved 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 IMPAIRED FASTING GLUCOSE [R73.01] INVALID FOR* Essential hypertension [I10] INVALID FOR* More... Osteoporosis [M81.0] INVALID FOR* More... Vitamin D Deficiency [E55.9] INVALID FOR* More... MR (mitral regurgitation) [I34.0] IBS (irritable bowel syndrome) [K58.9] More... 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 HOCM (hypertrophic obstructive cardiomyopathy) *INVALID FOR* Other instructions from your clinician: LIFESTYLE CHANGE A healthy lifestyle is the most important component of your overall treatment plan. Please give serious thought to the following areas and commit to making jail changes. EAT A WHOLE FOOD, PLANT BASED DIET The nutrition your body gets is more important than the medicine you take. What matters most is the overall way you eat. We encourage you to minimize the use of animal products (which include dairy and all meats except fatty fish) and use whole, unprocessed plant foods to provide your protein, vitamins and other nutrients. We have a lot of information to share with you on this topic. This is not a diet. It is a way of life that you will keep with you. EXERCISE REGULARLY It is not important to spend hours in the gym, lifting weights and perspiring heavily. A total of 2-3 hours per week of aerobic (causing you to be moderately short of breath) exercise is sufficient to improve your health. Talk to us before you begin a new exercise program, if you have heart disease or experience shortness of breath or chest pain. REDUCE STRESS Chronic emotional and physical stress leads to disease. Ways of reducing stress include meditation, visualization, prayer, yoga and other forms of relaxation therapy. Consistency is the aquino. Find a technique that works for you and do it every day. CULTIVATE RELATIONSHIPS Loneliness and isolation have a major negative impact on health. Seek out others who can love, care for and nurture you. Avoid hurtful relationships. MAINTAIN IDEAL BODY WEIGHT The best way to do this is to do all the things above. Our bodies naturally find the right weight if we keep moving and feed ourselves the right food. If your BMI is greater than 25, we strongly recommend a referral to a weight management program. Please speak to us or your family physician about available programs. AVOID NICOTINE IN ALL FORMS This includes all tobacco products, whether chewed, smoked, vaped, or rubbed on the skin. Smoking cessation programs, which can make use of tobacco substitutes, medications to suppress cravings and behavior management, are available. Please contact your family physician about programs in your area. Follow-up and Disposition History Recorded Encounter Status:Closed by BRANDON ARGUETA MD on 05/12/18 EMERGENCY DEPARTMENT Observed: 05/11/2018 Status: F Source: [place] SUMMARY 4:43 PM [facility] REPOSITORY [facility] Medical Records Department [address] [place] [address] Emergency Department Summary 05/11/18 1601 MR#: [id number] Acct: [id number] Name: PRISCILLA SHARPE Rep #: [id number] : 1940 78 From: Pato Danielson DO PCP: Alisia Pacheco MD Status: REG ER - ER Visit Summary Date of Service: 05/11/18 Chief Complaint: Shortness of breath History of Present Illness: The patient is a 78 F who has a bit of a complicated cardiac history. Patient has a history of paroxysmal atrial fibrillation. She has a history of nonrheumatic severe mitral valve regurgitation. Last echo showed 4+ regurg. Left atrium was noted to be severely dilated as well as having evidence of hypertrophic cardiomyopathy involving the left ventricular outflow tract with a gradient of 86 mmHg. Patient is currently undergoing evaluation to have a septal myomectomy alcohol ablation at [facility] on June 10. She does have some evidence of heart failure. She does not reportedly tolerate being in atrial fibrillation well. Patient states that a few days ago she was in [place] and was admitted to [facility] with shortness of breath and leg weakness. She states that these are the same symptoms that brings her in today. She also notes a history of COPD. She is on amiodarone and Coumadin. Physical Examination: Afebrile vital signs are stable Gen: Well-nourished well-developed Head: Normocephalic atraumatic Eyes: Perrl EOMI ENT: TMs clear no rhinorrhea moist mucous membranes Neck: Supple no lymphadenopathy no JVD nontender CVS: Regular rate rhythm 3 out of 6 systolic murmur Respiratory: No distress clear to auscultation bilaterally chest nontender Abdomen: Soft nontender nondistended normal bowel sounds no masses Back: Nontender Extremity: Nontender no edema Skin: Normal color no rash Neuro: alert orientated 3 CN II-XII intact normal strength sensation reflexes gait cerebellar Psych: Normal affect normal mood Test Results: EKG shows a sinus rhythm at a rate of 56 this was repeated later in the course continues to show a sinus rhythm. Chest x-ray shows no obvious overt heart failure or infiltrate. White count 7.3 hemoglobin 12.7. INR therapeutic at 2.5. Troponin negative. Natruretic peptide is 359. Emergency Department Course and Treatment: Patient is 99% on room air at rest. When the patient ambulates she becomes dyspneic and her pulse ox drops to 88%. She walked once with nursing and once again with myself. She had a good waveform on the pulse ox. When placed on 2 L she is no longer short of breath her legs feel stronger and she is at 94%. Patient received a breathing treatment and stated she felt no different. I did speak with Dr. Kemp who is concerned that there might be something else that could be causing her hypoxemia. CT Josey of the chest was negative for PE. When she set the patient up for home oxygen. I encouraged her to follow-up with her doctors keep her scheduled appointments Impression: 1. Hypoxemia 2. COPD 3. Hypertrophic cardiomyopathy 4. Mitral valve regurgitation This note was generated with Dragon dictation software. It may contain incorrect words, spelling, and punctuation that were not noted in review of the chart prior to signing ED Disposition - Plan for ED Patient: Disposition: Home or Assisted Living Chief Complaint: Shortness of Breath Instructions: Traveling with Oxygen Referrals: Alisia Pacheco MD [Primary Care Provider] - Additional Instructions: Please keep all your appointments with her doctors. Please wear oxygen particularly anytime you are attempting to exert herself. What to do if you have Problems For any increased pain, shortness of breath, bleeding, nausea or vomiting, chest pain, or any unexpected problems, contact your Primary Care Provider. Call [facility] ([phone]) or report to the closest Emergency Room. Call 911 if necessary. 05/11/18 1643 <Electronically signed by Pato Danielson DO> Date Pato Danielson DO Cosigner Signature (If Indicated): Date CC: Alisia Pacheco MD PROTHROMBIN TIME W/INR Collected: 05/11/2018 Status: F Source: [place] 2:35 PM [facility] REPOSITORY TYPE CODE TESTS RESULT OUT OF RANGE REFERENCE UNITS LAB L300.4150 11.7-14.9 SECONDS High PROTIME 27.4 LAB L300.4200 Normal INR 2.5 Performed By: #### L300.3900 #### [facility] [address] [place], [address] CTA CHEST W/WO Observed: 05/11/2018 Status: F Source: [place] CONTRAST 1:50 PM [facility] REPOSITORY [facility] Imaging Services [address] [place] [address] CTA Chest W/WO Contrast MR#: [id number] Acct: [id number] Name: PRISCILLA SHARPE Rep #: [id number] : 1940 F 78 From: Alo Ac MD PCP: Alisia Pacheco MD Status: REG ER Study: CTA Chest W/WO Contrast Date of Exam: 05/11/18 Exam# [id number] Ordering Dr: Pato Danielson DO STUDY: CTA CHEST REASON FOR EXAM: Female, 78 years old. Hypoxia RADIATION DOSAGE (If Supplied By Facility): CTDIvol = ( 12.93 ) mGy, DLP = ( 470.22 ) mGycm TECHNIQUE: The examination was performed with the intravenous administration of 75 ml of Isovue 370 contrast material. Post-processing of the angiographic images was performed, with multiplanar reformation and 3D reconstruction. Individualized dose optimization techniques were used for this CT. COMPARISON: None. FINDINGS: Normal enhancement of the main pulmonary artery and right and left pulmonary arteries. Normal enhancement of the bilateral peripheral pulmonary arteries. There is no demonstrated pulmonary embolism. Normal thoracic aorta and visualized great vessels. There is no demonstrated aortic dissection. There is cardiomegaly. There are scattered subcentimeter axillary and mediastinal lymph nodes measuring up to 8.5 mm. Normal hilar regions. There is peribronchial thickening. Lungs are hyperexpanded with chronic interstitial fibrotic changes in both lung jasmine, and nonspecific bilateral pleural thickening. Underlying emphysematous blebs noted in the upper lobes. Normal pleura. Normal chest wall structures. There are degenerative changes of thoracic spine. Limited cuts through the upper abdomen show a simple 4 cm right hepatic lobe cyst and cholelithiasis. CT/CTA Chest W/WO Contrast IMPRESSION: No demonstrated PE, or thoracic aortic aneurysm or dissection Cardiomegaly. Hyperexpanded lungs with underlying emphysematous changes in interstitial fibrotic changes. No superimposed infiltrate, or suspicious noncalcified mass or nodule Scattered subcentimeter axillary and mediastinal lymph nodes Degenerative bony changes Simple hepatic cyst Cholelithiasis Electronically Signed: Miguel Ac MD at 14:31 EDT , Service support , CC: Pato Danielson DO; Alisia Pacheco MD Medical Billing Specialist: Signed PELVIS 1 OR 2 VIEWS Observed: 05/11/2018 Status: F Source: [place] 12:46 PM [facility] REPOSITORY [facility] Imaging Services [address] [place] [address] Pelvis 1 or 2 Views MR#: [id number] Acct: [id number] Name: PRISCILLA SHARPE Rep #: [id number] : 1940 F 78 From: Bryn Capellan MD PCP: Alisia Pacheco MD Status: REG ER Study: Pelvis 1 or 2 Views Date of Exam: 05/11/18 Exam# [id number] Ordering Dr: Pato Danielson DO STUDY: X-RAY - PELVIS REASON FOR EXAM: Female, 78 years old. Lower extremity pain and weakness. TECHNIQUE: One view of the pelvis was obtained. COMPARISON: None. FINDINGS: There is a non-specific bowel gas pattern. Normal visualized soft tissue structures. There is a 1.1 cm rounded sclerotic focus overlying the left sacral ala or medial aspect of the left iliac bone. This may represent a small bone island. The patient has a history of metastatic disease, a sclerotic metastasis should be ruled out. Normal visualized bilateral superior and inferior pubic rami. There is narrowing with sclerosis of the pubic symphysis. Normal ischial tuberosities. Normal visualized right femoral head. Normal right acetabulum. Normal right hip joint. Normal visualized left femoral head. Normal left acetabulum. Normal left hip joint. RAD/Pelvis 1 or 2 Views IMPRESSION: 1.1 cm rounded sclerotic focus overlying the left sacral ala or medial aspect of the left iliac bone. This most likely represents a small bone island although a small sclerotic metastasis can't be excluded. Electronically Signed: Bryn Capellan MD at 13:12 EDT Tel [phone], Service support , CC: Pato Danielson DO; Alisia Pacheco MD Medical Billing Specialist: Signed CBC W/DIFF, AUTOMATED Collected: 05/11/2018 Status: F Source: [place] 12:15 PM [facility] REPOSITORY TYPE CODE TESTS RESULT OUT OF RANGE REFERENCE UNITS LAB L100.1000 4.4-11.0 K/mm3 Normal WBC 7.3 LAB L100.1200 4.2-5.4 M/mm3 Normal RBC 4.80 LAB L100.1300 12.0-15.0 g/dl Normal HGB 12.7 LAB L100.1400 37-47 % Normal HCT 39.3 LAB L100.1500 81-99 fL Normal MCV 81.9 LAB L100.1600 27.0-32.0 pg Low MCH 26.5 LAB L100.1700 32-36 g/gl Normal MCHC 32.3 LAB L100.1810 11.6-14.6 % High RDW CV 15.2 LAB L100.1820 35.1-43.9 fl High RDW SD 45.4 LAB L100.1900 150-450 K/mm3 Normal PLT 243 LAB L100.2000 6.2-12.0 fl Normal MPV 9.2 LAB L100.2100 47-70 % High NEUT% 73.4 LAB L100.2200 19-41 % Low LY% 15.8 LAB L100.2300 0-10 % Normal MONO% 7.0 LAB L100.2400 0-5 % Normal EO% 2.2 LAB L100.2500 0-1 % Normal BASO% 1.0 LAB L100.2550 0.0-0.9 % Normal IM GRAN % 0.600 Result Comment: IG% - Immature Granulocytes (promyelocytes, myelocytes and metamyelocytes) > 1% indicates that a LEFT SHIFT is Present. LAB L100.2620 2.0-7.7 X10 3/uL Normal Absolute Neut 5.3 LAB L100.2720 0.83-4.51 X10 3/ul Normal Absolute Lymph 1.15 Performed By: #### L100.0100 #### [facility] [address] [place], [address] BASIC METABOLIC Collected: 05/11/2018 Status: F Source: [place] PROFILE (BMP) 12:15 PM [facility] REPOSITORY TYPE CODE TESTS RESULT OUT OF RANGE REFERENCE UNITS LAB L501.0100 74-106 mg/dL Normal GLU 93 Result Comment: Please note revised GLUCOSE reference range effective 2017. LAB L501.1000 7-18 mg/dL High BUN 23 LAB L501.1100 0.55-1.02 mg/dL High CREAT,SERUM 1.26 Result Comment: The validity of the calculated GFR AND GFRAA in patients over 70 years has not been determined. Clinical correlation is essential. LAB L501.1110 >60 mL/min Low EST GFR 44 Result Comment: Non- GFR Calc LAB L501.1115 >60 mL/min Low EST GFR - AA 53 Result Comment: GFR Calc LAB L501.1255 ml/min Normal Estimated CRCL 33.89 LAB L501.1300 10-20 RATIO Normal BUN/CRE 18.3 LAB L501.2200 8.5-10 mg/dL Normal .1 CA 9.1 LAB L501.5300 136-14 mmol/L Normal 5 NA 139 LAB L501.5600 3.5-5. mmol/L Normal 1 K 4.6 LAB L501.5900 98-107 mmol/L Normal CL 102 LAB L501.6100 21.0-3 mmol/L Normal 2.0 CO2 28.0 LAB L501.6200 5-15 Normal GAP 9 Performed By: #### L500.2500, L501.4010 #### [facility] [address] [place], [address] TROPONIN-I Collected: 05/11/2018 Status: F Source: [place] 12:15 PM [facility] REPOSITORY TYPE CODE TESTS RESULT OUT OF RANGE REFERENCE UNITS LAB L501.4010 <0.045 ng/mL Normal < 0.015 TROPONIN-I Result Comment: TROPONIN-I EXPECTED VALUES <0.045 Negative 0.045 - 0.590 Consistent with Cardiac Damage > OR = 0.600 Critical Value Not every elevated troponin is indicative of RI. These values should be used with clinical judgement in examining the patient's clinical picture for diagnosis. To establish a diagnosis of RI versus myocardial injury, there must be a demonstrated rise and/or fall in the troponin values, in addition to ischemic symptoms, EKG changes, new regional wall motion abnormality, and/or angiographical evidence. PLEASE NOTE: REFERENCE RANGES EDITED 18 Performed By: #### L500.2500, L501.4010 #### [facility] [address] [place], [address] BNP,B-TYPE NATRIURETIC Collected: 05/11/2018 Status: F Source: [place] PEPTIDE 12:15 PM [facility] REPOSITORY TYPE CODE TESTS RESULT OUT OF RANGE REFERENCE UNITS LAB L503.6620 0-100 pg/mL High B-TYPE 359.3 SABRINA PEP Performed By: #### L503.6620 #### [facility] [address] [place], [address] CHEST PA AND LATERAL Observed: 05/11/2018 Status: F Source: [place] 11:52 AM [facility] REPOSITORY [facility] Imaging Services [address] [place] [address] Chest PA and Lateral MR#: [id number] Acct: [id number] Name: PRISCILLA SHARPE Rep #: [id number] : 1940 F 78 From: Bryn Capellan MD PCP: Alisia Pacheco MD Status: REG ER Study: Chest PA and Lateral Date of Exam: 05/11/18 Exam# [id number] Ordering Dr: Pato Danielson DO STUDY: X-RAY CHEST REASON FOR EXAM: Female, 78 years old. Shortness of breath. Lower extremity weakness. TECHNIQUE: PA and lateral views of the chest. COMPARISON: Comparison is made with prior examination dated October 06, 2017. FINDINGS: EKG electrodes are seen. Since prior study, there has been a progression of interstitial markings throughout the lungs worse at the lung bases. This may represent a mild degree of CHF. There is no demonstrated pleural abnormality. There is mild cardiac enlargement. Normal mediastinum and niharika. Normal visualized pulmonary arteries. There is atherosclerotic tortuosity of the aortic arch and descending thoracic aorta. There is demineralization of the osseous structures. Normal visualized ribs, clavicles, and shoulders. There is no demonstrated abnormality of the visualized soft tissue structures of the upper abdomen. RAD/Chest PA and Lateral IMPRESSION: Mild cardiomegaly. Increased interstitial markings in both lungs suggestive of mild degree of CHF. Electronically Signed: Bryn Capellan MD at 12:51 EDT Tel [phone], Service support , CC: Pato Danielson DO; Alisia Pacheco MD Medical Billing Specialist: Signed PROGRESS Observed: 05/10/2018 Status: COMPLETED Source: [place] 3:17 PM [facility] REPOSITORY HNO ID: [id number] Author: Portia Theodore RN Service: (none) Author Type: (none) Type: Progress Notes Filed: 05/10/2018 3:19 PM Note Text: patient had inr completed at [facility] patients inr is 3.1 (patients inr range is 2.0-3.0) patient is currently taking 1mg Tues,Thurs and 2mg all other days patients last dose change was on 04/19/18 due to a low level of 1.7 (dose at that time was 1mg Tue Thurs Sat and 2mg all other days) patient has had no changes in medication and no missed doses and no change in diet Advised patient to continue on the same dose(s) and that they would only be contacted regarding dosage and follow up instructions after review with provider, if a change is needed. Written instructions given and patient verbalized understanding. Presently scheduled in 1 week (05/17/18) for follow up INR since level is slightly high, but [place] was [place] which could be the cause of the level PATIENT SUMMARY Observed: 05/05/2018 Status: F Source: [place] 1:51 PM [facility] REPOSITORY PATIENT DISCHARGE INSTRUCTIONS If you are having an emergency and are not able to reach your physician, CALL 911 or go to the nearest emergency room and take this document with you. [place] 05/05/18 13:51 [address] [place]. [address] PATIENT INFORMATION Name: PRISCILLA SHARPE [facility] [address] [facility] [address] Age: 78 Years Phone: [phone] : 1940 12:00 MRN: [id number] Sex: Female Race: White Ethnicity: Not Hispan/Lat Admitted From: [facility] Medical Service: Internal Medicine Nurse Unit/Bed: ([facility] 2C93-44 Admit Date: 05/02/2018 18:46 PCP: Physician, PCP Unknown PHYSICIANS INVOLVED WITH CARE Attending Physicians: LEAH, A - Internal Medicine Admitting Physician: None found Primary Care Physician:Physician, PCP Unknown,Family Practice,,, - Consults: None found YOU WERE TREATED IN THE HOSPITAL FOR: Mitral valve insufficiency ALLERGIES: No Known Allergies MEASUREMENTS: Last Charted: Weight: 69.00 kg /152 lbs 2 oz ( 05/05/18 05:03:23 ) MEDICATIONS For: PRISCILLA SHARPE This is your list of medication(s). Keep it with you at all times. Your doctor may have changed doses, add, held or stopped some of your medications. Please share this information with your family docto r. Carry this list of medications with you in case of an emergency. Update it when medications are stopped, doses are changed, or new medications (including gglk-dji-cwhnvjj products) are added. Ask your doctor if you have any questions. THESE ARE THE MEDICATIONS YOU SHOULD BE TAKING amiodarone (amiodarone 200 mg oral tablet) 1 Tab(s) By Mouth once a day. cholecalciferol (Vitamin D3 1000 intl units oral tablet) 1 Tab(s) By Mouth once a day. chondroitin-glucosamine (chondroitin-glucosamine 200 mg-250 mg oral capsule) 1 Capsule By Mouth once a day. furosemide (furosemide 40 mg oral tablet) 1 Tab(s) By Mouth once a day. potassium chloride (potassium chloride 20 mEq oral granule, extended release) 20 Milliequivalent By Mouth once a day for 7 Days. increased dose for 7days then ok to return to 10mEq daily. Refills: 0. umeclidinium-vilanterol (Anoro Ellipta 62.5 mcg-25 mcg inhalation powder) 1 Puff(s) Inhalation once a day. warfarin (warfarin 2 mg oral tablet) 1 Tab(s) By Mouth Weekly on Thursday. warfarin (warfarin 2 mg oral tablet) 1 Tab(s) By Mouth Once Daily, Thursday, Thursday, Thursday, Thursday. warfarin (warfarin 2 mg oral tablet) 0.5 Tab(s) By Mouth Once Daily on Thursday and . MEDICATION CHANGE DETAILS (Not your Final Home Medication List) During the course of your visit, your home medication list was updated with the most current information. The details of those changes are shown below: NEW MEDICATIONS None UPDATED MEDICATIONS Printed Prescriptions Start: potassium chloride (potassium chloride 20 mEq oral granule, extended release) 20 Milliequivalent By Mouth once a day for 7 Days. increased dose for 7days then ok to return to 10mEq daily. Refills: 0. Comment UNCHANGED MEDICATIONS Other Medications amiodarone (amiodarone 200 mg oral tablet) 1 Tab(s) By Mouth once a day. Comment cholecalciferol (Vitamin D3 1000 intl units oral tablet) 1 Tab(s) By Mouth once a day. Comment chondroitin-glucosamine (chondroitin-glucosamine 200 mg-250 mg oral capsule) 1 Capsule By Mouth once a day. Comment furosemide (furosemide 40 mg oral tablet) 1 Tab(s) By Mouth once a day. Comment umeclidinium-vilanterol (Anoro Ellipta 62.5 mcg-25 mcg inhalation powder) 1 Puff(s) Inhalation once a day. Comment warfarin (warfarin 2 mg oral tablet) 1 Tab(s) By Mouth Weekly on Thursday. Comment warfarin (warfarin 2 mg oral tablet) 1 Tab(s) By Mouth Once Daily, Thursday, Thursday, Thursday, Thursday. Comment warfarin (warfarin 2 mg oral tablet) 0.5 Tab(s) By Mouth Once Daily on Thursday and . Comment STOP TAKING THESE MEDICATIONS None DO NOT TAKE UNTIL YOU TALK TO YOUR DOCTOR None NON-MEDICATION PRESCRIPTION SCHEDULING PHONE NUMBER: EDUCATION MATERIALS GIVEN: Title-Video/Print Material: Heart failure zone sheet SELECTED LAB RESULTS Lab Result Order Date Hemoglobin 13.2 gm/dL 05/03/2018 Hematocrit 37.5 % 05/03/2018 WBC Count 10.7 thou/mcL 05/03/2018 Platelet Count 164 thou/mcL 05/03/2018 Prothrombin Time (PT) 28.4 Sec 05/05/2018 INR 2.45 05/05/2018 Sodium Level 137 mMol/L 05/03/2018 Potassium Level 3.7 mMol/L 05/04/2018 Creatinine 1.18 mg/dL 05/03/2018 BUN 24 mg/dL 05/03/2018 Total Bilirubin 1.3 mg/dL 05/03/2018 B Type Natriuretic Peptide 1037 Picogram/ml 05/02/2018 Glucose Level 114 mg/dL 05/03/2018 LIPIDS TESTING LAB RESULTS Lab Result Order Date Lipid Profile - Cholesterol 241 mg/dL 05/03/2018 Lipid Profile - Triglyceride 188 mg/dL 05/03/2018 HDL Cholesterol 35 mg/dL 05/03/2018 LDL Cholesterol 168 mg/dL 05/03/2018 VLDL 38 mg/dL 05/03/2018 COUMADIN?? (WARFARIN) DISCHARGE INSTRUCTION Warfarin is a blood thinner and it is important to take it exactly as prescribed by your doctor. Do not start or stop any medications or vbju-iml-ckcdisi medications unless your doctor or pharmacist tells you to do so. Take your warfarin at the same time every day. If you do miss a dose do not take two doses at the same time. Do not take anything that has aspirin in it or another medication that may thin your blood unless your doctor says it is okay. Tell all your healthcare providers, including your dentist, that you are taking warfarin before they treat you or give you any medications or prescriptions. Talk to the doctor who is following your warfarin if you start or stop a medication or supplement. Warfarin Needs to be Monitored Lab tests are needed to check how thin your blood is while taking warfarin. The test used to check this is called a PT/INR Make sure you know the date of your next lab test and which doctor is following your lab tests. Some medications and foods can affect your PT/INR level. See below. Medications: Taking the following medications while you are taking warfarin may make your blood too thin and cause you to bleed. If you begin taking these medications while on warfarin your dose may need to be adjus maria luz by the doctor who is following your blood levels. Ghua-sws-loslrjx pain relievers: Acetaminophen (Tylenol??) aspirin, ibuprofen, (Motrin??) Nuprin?? and naproxen (Aleve??) Prescription Medication: Antibiotics, antifungals, anti-seizure medications, steroids, and antiarrhythmic medications. Supplements: Taking Vitamin E, Garlic, Gingko, Ginseng or Marina when you are taking warfarin may make your blood too thin. Eating regular amounts of these herbs in foods is fine. Taking a clove or more of garlic or an additional supplement of Marina for nausea may make your blood too thin. Foods: Foods that have vitamin K in them can affect how warfarin works. Eat a consistent amount of vitamin K foods every day. If these foods are a normal part of your daily diet you may continue to eat them. A void making major changes in your diet, or talk to your doctor before changing habits. Examples of Foods Rich in Vitamin K include: Broccoli, Boley sprouts, kale, spinach, and other leafy greens, seaweed, soybean oil and canola oil or salad dressing containing these oils, chicken liver, beef liver, pork liver, asparagus, iceberg lettuce, and Boost?? Call Your Doctor: If you have blood in your urine or stool. (dark or tarry stool) If you have a rash. If you have heavy or unusual bleeding or bruising. If you have difficulty breathing. If you have any more questions about Warfarin. Seek Medical Attention Immediately Since Warfarin Increases Your Risk of Bleeding: Internal bleeding can result from falls and injuries while on Warfarin. If you fall. If you bump your head. ADVANCE DIRECTIVE/HEALTH CARE DECISIONS: Advance Directive/Health Care Decisions Executed by Patient: Yes Advance Directive/Health Care Decisions Type: Medical Power of Shuttle Inspector Medical POA Contact Information: Eloina Sexton Copy of Advance Directive/Health Care Decisions on Chart: Patient/Family asked to provide copy DISCHARGE INSTRUCTIONS: Discharge Diet No added salt. 2 Gram Sodium. Restrict fluid to 2000 milliliters (2000 ml is about 68 fluid ounces or 8 cups). Patients with heart failure should monitor their sodium intake. Weight Monitoring Get a bathroom scale if you do not have one. Notify your social services technician, nurse or physician if you cannot obtain a scale. Weigh yourself every morning on the same scale after emptying your bladder with s imilar clothing on. Write down your daily weight and take to your doctor's appointments. Discharge Activities Encouraged Activity that you can tolerate comfortably. Pace yourself and rest when tired. Elevate your feet when sitting. Weigh yourself each morning. Discharge Activities Restricted Dont' drink alcohol. Alcohol decreases your heart function and may worsen your heart failure. Don't smoke. Smoking causes illnesses which shortens your life and makes it more difficult for your lungs to function. Your chances of stopping are greatly increased if you use medication or attend a program to help you. Discuss this with your doctor.. Discharge Medication Info Call your doctor if you have any questions regarding cost, dose, frequency or purpose of medications. Ask your doctor before taking any supplements, herbal or ivyu-cot-spdzrhk medications. Take your med ication as prescribed by your doctor. If you do not, you may have weight gain and difficulty breathing. Notify Physician Increased swelling in ankles/legs. Lack of energy for normal activities. Shortness of breath or persistent cough. Call 911 if you have any of the following symptoms: severe shortness of breath; severe w eakness, dizziness or feeling faint; chest pain or pressure that does not respond to 3 nitroglycerin or lasts longer than 10 minutes; abnormal heart beat. SUICIDE HOTLINE: Your mental and emotional well-being are important. If you are in a mental health crisis, or having thoughts of suicide, please call the nationwide suicide hotline, anytime day or night, at 7-967-962-VKKA. Important information about accessing your health information through the [facility] [employer] patient portal If you initiated the self-registration process for [employer] during your stay, please check your personal email for an invitation to enroll in [employer] and complete the steps outlined in the email. If you would prefer to enroll while in the hospital, ask a member of your care team. We would be happy to assist you. If you have already enrolled in [employer], go to [email or web address] to login and access your health information. Thank you for choosing [facility]. PATIENT EDUCATION Low-Sodium Eating Plan Sodium raises blood pressure and causes water to be held in the body. Getting less sodium from food will help lower your blood pressure, reduce any swelling, and protect your heart, liver, and kidneys. We get sodium by adding salt (sodium chloride) to food. Most of our sodium comes from canned, boxed, and frozen foods. Restaurant foods, fast foods, and pizza are also very high in sodium. Even if you t aime medicine to lower your blood pressure or to reduce fluid in your body, getting less sodium from your food is important. WHAT IS MY PLAN? Most people should limit their sodium intake to 2,300 mg a day. Your health care provider recommends that you limit your sodium intake to a day. WHAT DO I NEED TO KNOW ABOUT THIS EATING PLAN? For the low-sodium eating plan, you will follow these general guidelines: ???Choose foods with a % Daily Value for sodium of less than 5% (as listed on the food label). ?Use salt-free seasonings or herbs instead of table salt or sea salt. ?Check with your health care provider or pharmacist before using salt substitutes. ?Eat fresh foods. ???Eat more vegetables and fruits. ???Limit canned vegetables. If you do use them, rinse them well to decrease the sodium. ?Limit cheese to 1 oz (28 g) per day. ?Eat lower-sodium products, often labeled as lower sodium or no salt added. ???Avoid foods that contain monosodium glutamate (MSG). MSG is sometimes added to French food and some canned foods.?Check food labels (Nutrition Facts labels) on foods to learn how much sodium is in one serving. ???Eat more home-cooked food and less restaurant, buffet, and fast food.?When eating at a restaurant, ask that your food be prepared with less salt, or no salt if possible. ? HOW DO I READ FOOD LABELS FOR SODIUM INFORMATION? The Nutrition Facts label lists the amount of sodium in one serving of the food. If you eat more than one serving, you must multiply the listed amount of sodium by the number of servings. Food labels may also identify foods as: ???Sodium free?Less than 5 mg in a serving. ???Very low sodium?35 mg or less in a serving. ???Low sodium?140 mg or less in a serving. ???Light in sodium?50% less sodium in a serving. For example, if a food that usually has 300 mg of sodium is changed to become light in sodium, it will have 150 mg of sodium. ???Reduced sodium?25% less sodium in a serving. For example, if a food that usually has 400 mg of sodium is changed to reduced sodium, it will have 300 mg of sodium. WHAT FOODS CAN I EAT? Grains? Low-sodium cereals, including oats, puffed wheat and rice, and shredded wheat cereals. Low-sodium crackers. Unsalted rice and pasta. Lower-sodium bread. Vegetables? Frozen or fresh vegetables. Low-sodium or reduced-sodium canned vegetables. Low-sodium or reduced-sodium tomato sauce and paste. Low-sodium or reduced-sodium tomato and vegetable juices. Fruits? Fresh, frozen, and canned fruit. Fruit juice. Meat and Other Protein Products? Low-sodium canned tuna and salmon. Fresh or frozen meat, poultry, seafood, and fish. Elizondo. Unsalted nuts. Dried beans, peas, and lentils without added salt. Unsalted canned beans. Homemade soups without salt. Eggs. Dairy? Milk. Soy milk. Ricotta cheese. Low-sodium or reduced-sodium cheeses. Yogurt. Condiments? Fresh and dried herbs and spices. Salt-free seasonings. Onion and garlic powders. Low-sodium varieties of mustard and ketchup. Fresh or refrigerated horseradish. Lemon juice. Fats and Oils?? Reduced-sodium salad dressings. Unsalted butter. ? Other? Unsalted popcorn and pretzels. The items listed above may not be a complete list of recommended foods or beverages. Contact your dietitian for more options. WHAT FOODS ARE NOT RECOMMENDED? Grains? Instant hot cereals. Bread stuffing, pancake, and biscuit mixes. Croutons. Seasoned rice or pasta mixes. Noodle soup cups. Boxed or frozen macaroni and cheese. Self-rising flour. Regular salted crackers. Vegetables? Regular canned vegetables. Regular canned tomato sauce and paste. Regular tomato and vegetable juices. Frozen vegetables in sauces. Salted Israeli fries. Olives. Pickles. Relishes. Sauerkraut. Salsa. Meat and Other Protein Products? Salted, canned, smoked, spiced, or pickled meats, seafood, or fish. Starr, ham, sausage, hot dogs, corned beef, chipped beef, and packaged luncheon meats. Salt pork. Jerky. Pickled lozano. Anchovies, r egular canned tuna, and sardines. Salted nuts. Dairy? Processed cheese and cheese spreads. Cheese curds. Blue cheese and cottage cheese. Buttermilk. Condiments? Onion and garlic salt, seasoned salt, table salt, and sea salt. Canned and packaged gravies. Worcestershire sauce. Tartar sauce. Barbecue sauce. Teriyaki sauce. Soy sauce, including reduced sodium. Stea k sauce. Fish sauce. Oyster sauce. Cocktail sauce. Horseradish that you find on the shelf. Regular ketchup and mustard. Meat flavorings and tenderizers. Bouillon cubes. Hot sauce. Tabasco sauce. Marinades. Taco seasonings. Relishes. Fats and Oils?? Regular salad dressings. Salted butter. Margarine. Ghee. Starr fat. Other? Potato and tortilla chips. [place] chips and puffs. Salted popcorn and pretzels. Canned or dried soups. Pizza. Frozen entrees and pot pies. ? The items listed above may not be a complete list of foods and beverages to avoid. Contact your dietitian for more information. This information is not intended to replace advice given to you by your health care provider. Make sure you discuss any questions you have with your health care provider. Document Released: 04/10/2003 Document Revised: 11/09/2015 Document Reviewed: 08/23/2014 [employer] Interactive Patient Education ?2015 [employer] Heart Failure Heart failure means your heart has trouble pumping blood. This makes it hard for your body to work well. Heart failure is usually a long- term (chronic) condition. You must take good care of yourself and follow your doctor's treatment plan. HOME CARE ???Take your heart medicine as told by your doctor. ???Do not stop taking medicine unless your doctor tells you to. ??? Do not skip any dose of medicine. ???Refill your medicines before they run out. ???Take other medicines only as told by your doctor or pharmacist. ???Stay active if told by your doctor. The elderly and people with severe heart failure should talk with a doctor about physical activity. ???Eat heart-healthy foods. Choose foods that are without trans fat and are low in saturated fat, cholesterol, and salt (sodium). This includes fresh or frozen fruits and vegetables, fish, lean meats, f at-free or low-fat dairy foods, whole grains, and high-fiber foods. Lentils and dried peas and beans (legumes) are also good choices. ???Limit salt if told by your doctor. ???Cook in a healthy way. Roast, grill, broil, bake, poach, steam, or stir-muñoz foods. ???Limit fluids as told by your doctor. ???Weigh yourself every morning. Do this after you pee (urinate) and before you eat breakfast. Write down your weight to give to your doctor. ???Take your blood pressure and write it down if your doctor tells you to. ???Ask your doctor how to check your pulse. Check your pulse as told. ???Lose weight if told by your doctor. ???Stop smoking or chewing tobacco. Do not use gum or patches that help you quit without your doctor's approval. ???Schedule and go to doctor visits as told. ???Non women should have no more than 1 drink a day. Men should have no more than 2 drinks a day. Talk to your doctor about drinking alcohol. ???Stop illegal drug use. ???Stay current with shots (immunizations). ???Manage your health conditions as told by your doctor. ???Learn to manage your stress. ???Rest when you are tired. ???If it is really hot outside: ???Avoid intense activities. ???Use air conditioning or fans, or get in a cooler place. ???Avoid caffeine and alcohol. ???Wear loose-fitting, lightweight, and light-colored clothing. ???If it is really cold outside: ???Avoid intense activities. ???Layer your clothing. ???Wear mittens or gloves, a hat, and a scarf when going outside. ???Avoid alcohol. ???Learn about heart failure and get support as needed. ???Get help to maintain or improve your quality of life and your ability to care for yourself as needed. GET HELP IF: ???You gain weight quickly. ???You are more short of breath than usual. ???You cannot do your normal activities. ???You tire easily. ???You cough more than normal, especially with activity. ???You have any or more puffiness (swelling) in areas such as your hands, feet, ankles, or belly (abdomen). ???You cannot sleep because it is hard to breathe. ???You feel like your heart is beating fast (palpitations). ???You get dizzy or light-headed when you stand up. GET HELP RIGHT AWAY IF: ???You have trouble breathing. ???There is a change in mental status, such as becoming less alert or not being able to focus. ???You have chest pain or discomfort. ???You faint. MAKE SURE YOU: ???Understand these instructions. ???Will watch your condition. ???Will get help right away if you are not doing well or get worse. This information is not intended to replace advice given to you by your health care provider. Make sure you discuss any questions you have with your health care provider. Document Released: 07/28/2009 Document Revised: 11/09/2015 Document Reviewed: 12/05/2013 Else[employer] Interactive Patient Education ?2016 [employer] PATIENT DISCHARGE INSTRUCTION Signature Page for: PRISCILLA SHARPE Date/Time: 05/05/2018 13:51:54 A Clinician has explained the information on my discharge instructions and has provided me with a copy. My questions have been answered to my satisfaction. Patient Signature Date/Time Responsible Party Date/Time Relationship to Patient Clinician Signature Date/Time CLINICAL SUMMARY Observed: 05/05/2018 Status: F Source: [facility]OFFMAN 1:51 PM [facility] REPOSITORY CLINICAL SUMMARY Please take this summary document to your follow up appointments. Shreyas Hoffman [facility] 05/05/18 13:[address] [place] [address]. [id number] PATIENT INFORMATION Name: PRISCILLA SHARPE Address: [address] [place] [id number] Age: 78 Years Phone: [phone] : 1940 12:00 MRN: [facility][id number] Sex: Female Race: White Ethnicity: Not Hispan/Lat Admitted From: [facility] Medical Service: Internal Medicine Nurse Unit/Bed: ([place]) [facility] [id number] Admit Date: 05/02/2018 18:46 PCP: Physician, PCP Unknown PHYSICIANS INVOLVED WITH CARE Attending Physicians: [facility], A - Internal Medicine Admitting Physician: None found Primary Care Physician:Physician, PCP Unknown,Family Practice,,, - Consults: None found DIAGNOSES: Mitral valve insufficiency Problems Active Heart disease Hypertension Allergies NKA Procedures No Procedures Documented MEASUREMENTS: Last Charted: Weight: 69.00 kg /152 lbs 2 oz ( 05/05/18 05:03:23 ) VITAL SIGNS: Last Charted: Pulse Rate: 81 BPM (05/05 12:43) Blood Pressure: 99/66 mm Hg (05/05 12:14) Pain Score: 2(05/04 20:57) CODE STATUS: Full Resuscitation Comment: Provide all therapy to prevent/treat cardiac or respiratory arrest. Last Bowel Movement: Date/Time: 05/05 08:53 05/04/2018 00:00 MENTAL STATUS: Level of Conciousness: Alert (05/05 08:53) Orientation: Oriented x 4 (05/05 08:53) MEDICATIONS ORDERED / RECOMMENDED TO BE CONTINUED for: PRISCILLA SHARPE amiodarone (amiodarone 200 mg oral tablet) 1 Tab(s) By Mouth once a day. cholecalciferol (Vitamin D3 1000 intl units oral tablet) 1 Tab(s) By Mouth once a day. chondroitin-glucosamine (chondroitin-glucosamine 200 mg-250 mg oral capsule) 1 Capsule By Mouth once a day. furosemide (furosemide 40 mg oral tablet) 1 Tab(s) By Mouth once a day. potassium chloride (potassium chloride 20 mEq oral granule, extended release) 20 Milliequivalent By Mouth once a day for 7 Days. increased dose for 7days then ok to return to 10mEq daily. Refills: 0. umeclidinium-vilanterol (Anoro Ellipta 62.5 mcg-25 mcg inhalation powder) 1 Puff(s) Inhalation once a day. warfarin (warfarin 2 mg oral tablet) 1 Tab(s) By Mouth Weekly on Thursday. warfarin (warfarin 2 mg oral tablet) 1 Tab(s) By Mouth Once Daily, Thursday, Thursday, Thursday, Thursday. warfarin (warfarin 2 mg oral tablet) 0.5 Tab(s) By Mouth Once Daily on Thursday and . MEDICATION CHANGE DETAILS NEW MEDICATIONS None UPDATED MEDICATIONS Printed Prescriptions Start: potassium chloride (potassium chloride 20 mEq oral granule, extended release) 20 Milliequivalent By Mouth once a day for 7 Days. increased dose for 7days then ok to return to 10mEq daily. Refills: 0. Comment UNCHANGED MEDICATIONS Other Medications amiodarone (amiodarone 200 mg oral tablet) 1 Tab(s) By Mouth once a day. Comment cholecalciferol (Vitamin D3 1000 intl units oral tablet) 1 Tab(s) By Mouth once a day. Comment chondroitin-glucosamine (chondroitin-glucosamine 200 mg-250 mg oral capsule) 1 Capsule By Mouth once a day. Comment furosemide (furosemide 40 mg oral tablet) 1 Tab(s) By Mouth once a day. Comment umeclidinium-vilanterol (Anoro Ellipta 62.5 mcg-25 mcg inhalation powder) 1 Puff(s) Inhalation once a day. Comment warfarin (warfarin 2 mg oral tablet) 1 Tab(s) By Mouth Weekly on Thursday. Comment warfarin (warfarin 2 mg oral tablet) 1 Tab(s) By Mouth Once Daily, Thursday, Thursday, Thursday, Thursday. Comment warfarin (warfarin 2 mg oral tablet) 0.5 Tab(s) By Mouth Once Daily on Thursday and . Comment STOP TAKING THESE MEDICATIONS None DO NOT TAKE UNTIL YOU TALK TO YOUR DOCTOR None RECONCILING PROVIDER(S) 05/05/18 12:39:52 EDT Electronically Signed by Kina Jang DO potassium chloride (potassium chloride 20 mEq oral granule, extended release) 05/04/18 09:35:19 EDT Electronically Signed by Tamara Mcdonald MD amiodarone (amiodarone 200 mg oral tablet) cholecalciferol (Vitamin D3 1000 intl units oral tablet) chondroitin-glucosamine (chondroitin-glucosamine 200 mg- 250 mg oral capsule) furosemide (furosemide 40 mg oral tablet) umeclidinium-vilanterol (Anoro Ellipta 62.5 mcg-25 mcg inhalation powder) warfarin (warfarin 2 mg oral tablet) Inpatient Medication History (active at the time of summary): Do not administer these medications until re-evaluated by a provider at the next level of care. Warfarin 2 mg Tab (Coumadin GEq) (Warfarin Daily) 2 mg = 1 Tab, PO, Tab, Daily-Warf,, x 30 Day(s), 05/04/18 20:27:00 EDT, Atrial Fibrillation (INR Target: 2-3) Last Dose: 05/04/18 21:30:00 COMMENTS and SPECIAL INSTRUCTIONS: Review most current INR before administering. If INR is greater than 3.5 follow hospital procedure. Contact physician for: new onset of chest pain or SOB, new onset of extremity pain, swelling, or warmth, mental status changes, clinical signs of bleeding or Hgb decrease greater than 2 Gm/dL. Warfarin Therapy (Coumadin Therapy Confirm Order Daily*) Each, Misc, Daily-Warf Last Dose: 05/04/18 21:30:00 Aspirin 81 mg Tab EC (Ecotrin GEq) (aspirin) 81 mg = 1 Tab, PO, Tab EC, Daily,, x 30 Day(s), 05/02/18 23:18:00 EDT Last Dose: 05/05/18 08:56:00 Amiodarone 200 mg Tab (Cordarone GEq) (amiodarone) 200 mg = 1 Tab, PO, Tab, Daily,, x 30 Day(s), 05/02/18 23:21:00 EDT Last Dose: 05/05/18 08:56:00 Potassium Chloride SR 20 mEq Tab (K-Dur GEq) (potassium chloride) 20 mEq = 1 Tab, PO, Tab ER, BID,, x 30 Day(s), 05/03/18 8:34:00 EDT Last Dose: 05/05/18 08:56:00 COMMENTS and SPECIAL INSTRUCTIONS: Do Not Chew Or Crush Take with meals and with a full glass of water or other beverage Albuterol HFA 90 mcg/PUFF (Proventil/Ventolin HFA GEq) (Albuterol HFA 90 mcg/Puff MDI) 2 Puff, 180 mcg, Inhalation, Aerosol, Resp QID, x 30 Day(s), 05/03/18 7:43:00 EDT Last Dose: 05/05/18 12:37:00 COMMENTS and SPECIAL INSTRUCTIONS: Given with ipratropium (Atrovent HFA 17 mcg/Puff MDI ) is the therapuetic interchange for Anoro Ellipta Ipratropium HFA 17 mcg/PUFF (Atrovent GEq) (Atrovent HFA 17 mcg/Puff MDI) 2 Puff, 34 mcg, Inhalation, Aerosol, Resp QID, x 30 Day(s), 05/03/18 7:43:00 EDT Last Dose: 05/05/18 12:37:00 COMMENTS and SPECIAL INSTRUCTIONS: Given with albuterol (Albuterol HFA 90 mcg/Puff MDI) is the therapuetic interchange for Anoro Ellipta Acetaminophen 325 mg Tab (Tylenol GEq) (acetaminophen) 650 mg = 2 Tab, PO, Tab, Bedtime,, x 30 Day(s), 05/03/18 0:10:00 EDT Last Dose: 05/04/18 19:57:00 DiphenhydrAMINE 25 mg Tab (Benadryl GEq) (DiphenhydrAMINE.) 25 mg = 1 Tab, PO, Tab, Bedtime, x 30 Day(s), 05/03/18 0:10:00 EDT Last Dose: 05/04/18 19:57:00 oxygen Nasal Cannula, FIO2/LPM: 2, Supplemental oxygen titration to maintain saturation greater than 90% Albuterol 2.5 mg/3 mL Inh Anne (Proventil/Ventolin GEq) (Albuterol Inh Anne) 2.5 mg = 3 mL, Nebul, Anne, Q1h, PRN, Shortness of Breath, x 30 Day(s), 05/02/18 23:20:00 EDT Acetaminophen 325 mg Tab (Tylenol GEq) (Tylenol*) 650 mg = 2 Tab, PO, Tab, Q4h, PRN, Pain - Mild, x 30 Day(s), 05/02/18 23:18:00 EDT Magnesium Hydroxide 8% Susp 30 mL (Milk of Magnesia) (Milk of Magnesia 8%) 30 mL, PO, Susp, Daily, x 30 Day(s), PRN Constipation, 2,400 mg, 05/02/18 23:18:00 EDT Bisacodyl 10 mg Suppos (Dulcolax GEq) (Dulcolax*) 10 mg = 1 Suppos, Rectal, Suppos, Daily, PRN, Constipation, x 30 Day(s), 05/02/18 23:18:00 EDT Ondansetron 2 mg/mL Inj 2 mL (Zofran GEq) (Zofran Inj*) 4 mg = 2 mL, IV Push, Inject, Q6h, PRN, See Comments, x 30 Day(s), 05/02/18 23:18:00 EDT Atropine 1 mg/mL Vial 1 mL (Atropine 0.1 mg/mL Syringe 10 mL) 0.5 mg = 0.5 mL, IV Push, Inject, Q3min, PRN, See Comments, x 6 Time(s)/Dose(s), 05/02/18 23:18:00 EDT Nitroglycerin Subl Tab 0.4 mg #25 (Nitrostat GEq) (Nitrostat*) 0.4 mg = 1 Tab, Subl, Tab Subl, Q5min, PRN, See Comments, x 30 Day(s), 05/02/18 23:18:00 EDT INACTIVE MEDICATIONS GIVEN IN THE LAST 36 HOURS: Medications Discontinued or Completed in the last 36 hours: Simethicone 80 mg Tab Chew (Mylicon GEq) 80 mg = 1 Tab, PO, Tab Chew, Once,, 05/04/18 11:02:00 EDT Last Dose: 05/04/18 12:01:00 Furosemide 10 mg/mL Vial 4 mL (Lasix GEq) 40 mg = 4 mL, IV Push, Inject, Once,, 05/04/18 11:01:00 EDT Last Dose: 05/04/18 12:01:00 Albuterol HFA 90 mcg/PUFF (Proventil/Ventolin HFA GEq)(unverified) 2 Puff, 180 mcg, Inhalation, Aerosol, 05/03/18 7:43:00 EDT Last Dose: 05/05/18 12:37:00 Ipratropium HFA 17 mcg/PUFF (Atrovent GEq)(unverified) 2 Puff, 34 mcg, Inhalation, Aerosol, 05/03/18 7:43:00 EDT Last Dose: 05/05/18 12:37:00 Amiodarone 200 mg Tab (Cordarone GEq)(unverified) 200 mg = 1 Tab, PO, Tab,, 05/02/18 23:21:00 EDT Last Dose: 05/05/18 08:56:00 Aspirin 81 mg Tab EC (Ecotrin GEq)(unverified) 81 mg = 1 Tab, PO, Tab EC,, 05/02/18 23:18:00 EDT Last Dose: 05/05/18 08:56:00 Potassium Chloride SR 20 mEq Tab (K-Dur GEq)(unverified) 20 mEq = 1 Tab, PO, Tab ER,, 05/03/18 8:34:00 EDT Last Dose: 05/05/18 08:56:00 Albuterol HFA 90 mcg/PUFF (Proventil/Ventolin HFA GEq)(unverified) 2 Puff, 180 mcg, Inhalation, Aerosol, 05/03/18 7:43:00 EDT Last Dose: 05/05/18 09:14:00 Ipratropium HFA 17 mcg/PUFF (Atrovent GEq)(unverified) 2 Puff, 34 mcg, Inhalation, Aerosol, 05/03/18 7:43:00 EDT Last Dose: 05/05/18 09:11:00 DiphenhydrAMINE 25 mg Tab (Benadryl GEq)(unverified) 25 mg = 1 Tab, PO, Tab, 05/03/18 0:10:00 EDT Last Dose: 05/04/18 19:57:00 Acetaminophen 325 mg Tab (Tylenol GEq)(unverified) 650 mg = 2 Tab, PO, Tab,, 05/03/18 0:10:00 EDT Last Dose: 05/04/18 19:57:00 Potassium Chloride SR 20 mEq Tab (K-Dur GEq)(unverified) 20 mEq = 1 Tab, PO, Tab ER,, 05/03/18 8:34:00 EDT Last Dose: 05/04/18 19:57:00 Warfarin 2 mg Tab (Coumadin GEq)(unverified) 2 mg = 1 Tab, PO, Tab,, 05/04/18 20:27:00 EDT, Atrial Fibrillation (INR Target: 2-3) Last Dose: 05/04/18 21:30:00 Warfarin Therapy(unverified) Each, Misc Last Dose: 05/04/18 21:30:00 Ipratropium HFA 17 mcg/PUFF (Atrovent GEq)(unverified) 2 Puff, 34 mcg, Inhalation, Aerosol, 05/03/18 7:43:00 EDT Last Dose: 05/04/18 15:09:00 Albuterol HFA 90 mcg/PUFF (Proventil/Ventolin HFA GEq)(unverified) 2 Puff, 180 mcg, Inhalation, Aerosol, 05/03/18 7:43:00 EDT Last Dose: 05/04/18 15:09:00 Amiodarone 200 mg Tab (Cordarone GEq)(unverified) 200 mg = 1 Tab, PO, Tab,, 05/02/18 23:21:00 EDT Last Dose: 05/04/18 09:52:00 Aspirin 81 mg Tab EC (Ecotrin GEq)(unverified) 81 mg = 1 Tab, PO, Tab EC,, 05/02/18 23:18:00 EDT Last Dose: 05/04/18 09:52:00 Potassium Chloride SR 20 mEq Tab (K-Dur GEq)(unverified) 20 mEq = 1 Tab, PO, Tab ER,, 05/03/18 8:34:00 EDT Last Dose: 05/04/18 09:52:00 EDUCATION MATERIALS GIVEN: Title-Video/Print Material: Heart failure zone sheet COUMADIN?? (WARFARIN) DISCHARGE INSTRUCTION Warfarin is a blood thinner and it is important to take it exactly as prescribed by your doctor. Do not start or stop any medications or [id number]-cofkjow medications unless your doctor or pharmacist tells you to do so. Take your warfarin at the same time every day. If you do miss a dose do not take two doses at the same time. Do not take anything that has aspirin in it or another medication that may thin your blood unless your doctor says it is okay. Tell all your healthcare providers, including your dentist, that you are taking warfarin before they treat you or give you any medications or prescriptions. Talk to the doctor who is following your warfarin if you start or stop a medication or supplement. Warfarin Needs to be Monitored Lab tests are needed to check how thin your blood is while taking warfarin. The test used to check this is called a PT/INR Make sure you know the date of your next lab test and which doctor is following your lab tests. Some medications and foods can affect your PT/INR level. See below. Medications: Taking the following medications while you are taking warfarin may make your blood too thin and cause you to bleed. If you begin taking these medications while on warfarin your dose may need to be adjus maria luz by the doctor who is following your blood levels. Yuyh-qxh-thbicgk pain relievers: Acetaminophen (Tylenol??) aspirin, ibuprofen, (Motrin??) Nuprin?? and naproxen (Aleve??) Prescription Medication: Antibiotics, antifungals, anti-seizure medications, steroids, and antiarrhythmic medications. Supplements: Taking Vitamin E, Garlic, Gingko, Ginseng or Marina when you are taking warfarin may make your blood too thin. Eating regular amounts of these herbs in foods is fine. Taking a clove or more of garlic or an additional supplement of Marina for nausea may make your blood too thin. Foods: Foods that have vitamin K in them can affect how warfarin works. Eat a consistent amount of vitamin K foods every day. If these foods are a normal part of your daily diet you may continue to eat them. A void making major changes in your diet, or talk to your doctor before changing habits. Examples of Foods Rich in Vitamin K include: Broccoli, Boley sprouts, kale, spinach, and other leafy greens, seaweed, soybean oil and canola oil or salad dressing containing these oils, chicken liver, beef liver, pork liver, asparagus, iceberg lettuce, and Boost?? Call Your Doctor: If you have blood in your urine or stool. (dark or tarry stool) If you have a rash. If you have heavy or unusual bleeding or bruising. If you have difficulty breathing. If you have any more questions about Warfarin. Seek Medical Attention Immediately Since Warfarin Increases Your Risk of Bleeding: Internal bleeding can result from falls and injuries while on Warfarin. If you fall. If you bump your head. ADVANCE DIRECTIVE/HEALTH CARE DECISIONS: Advance Directive/Health Care Decisions Executed by Patient: Yes Advance Directive/Health Care Decisions Type: Medical Power of Shuttle Inspector Medical POA Contact Information: Eloina Sexton Copy of Advance Directive/Health Care Decisions on Chart: Patient/Family asked to provide copy DISCHARGE INSTRUCTIONS: Discharge Diet No added salt. 2 Gram Sodium. Restrict fluid to 2000 milliliters (2000 ml is about 68 fluid ounces or 8 cups). Patients with heart failure should monitor their sodium intake. Weight Monitoring Get a bathroom scale if you do not have one. Notify your social services technician, nurse or physician if you cannot obtain a scale. Weigh yourself every morning on the same scale after emptying your bladder with s imilar clothing on. Write down your daily weight and take to your doctor's appointments. Discharge Activities Encouraged Activity that you can tolerate comfortably. Pace yourself and rest when tired. Elevate your feet when sitting. Weigh yourself each morning. Discharge Activities Restricted Dont' drink alcohol. Alcohol decreases your heart function and may worsen your heart failure. Don't smoke. Smoking causes illnesses which shortens your life and makes it more difficult for your lungs to function. Your chances of stopping are greatly increased if you use medication or attend a program to help you. Discuss this with your doctor.. Discharge Medication Info Call your doctor if you have any questions regarding cost, dose, frequency or purpose of medications. Ask your doctor before taking any supplements, herbal or jcvo-qgt-oldhrbt medications. Take your med ication as prescribed by your doctor. If you do not, you may have weight gain and difficulty breathing. Notify Physician Increased swelling in ankles/legs. Lack of energy for normal activities. Shortness of breath or persistent cough. Call 911 if you have any of the following symptoms: severe shortness of breath; severe w eakness, dizziness or feeling faint; chest pain or pressure that does not respond to 3 nitroglycerin or lasts longer than 10 minutes; abnormal heart beat. SELECTED LAB RESULTS Lab Result Order Date Hemoglobin 13.2 gm/dL 05/03/2018 Hematocrit 37.5 % 05/03/2018 WBC Count 10.7 thou/mcL 05/03/2018 Platelet Count 164 thou/mcL 05/03/2018 Prothrombin Time (PT) 28.4 Sec 05/05/2018 INR 2.45 05/05/2018 Sodium Level 137 mMol/L 05/03/2018 Potassium Level 3.7 mMol/L 05/04/2018 Creatinine 1.18 mg/dL 05/03/2018 BUN 24 mg/dL 05/03/2018 Total Bilirubin 1.3 mg/dL 05/03/2018 B Type Natriuretic Peptide 1037 Picogram/ml 05/02/2018 Glucose Level 114 mg/dL 05/03/2018 LIPIDS TESTING LAB RESULTS Lab Result Order Date Lipid Profile - Cholesterol 241 mg/dL 05/03/2018 Lipid Profile - Triglyceride 188 mg/dL 05/03/2018 HDL Cholesterol 35 mg/dL 05/03/2018 LDL Cholesterol 168 mg/dL 05/03/2018 VLDL 38 mg/dL 05/03/2018 X-RAY EXAMS: XR Chest 1 View - 05/04/18 11:30:00 See Radiology Report for More Detail Physician Signature Date/Time PATIENT EDUCATION Low-Sodium Eating Plan; Heart Failure, Nngu-ya-Vqfi PROTHROMBIN TIME Collected: 05/05/2018 Status: F Source: [facility] 7:14 AM [facility] SYSTEM REPOSITORY TYPE CODE TESTS RESULT OUT OF RANGE REFERENCE UNITS LAB 5902-2(MAYLIN 9.3-12.4 Sec NC) High Prothrombin Time (PT) 28.4 LAB 54198-0(LO INC) INR Normal 2.45 Result Comment: The recommended therapeutic INR range for most cardiac indications is 2.0-3.0. For high intensity therapy(ie.mechanical heart valves), the recommended range is 2.5-3.5. Performed By: #### 5902-2 #### [facility] [address], [place] DISCHARGE SUMMARY Observed: 05/05/2018 Status: F Source: [place] 12:00 AM HEALTH SYSTEM REPOSITORY DICTATED BY: KINA JANG DO DATE OF ADMISSION: 05/02/2018 DATE OF DISCHARGE: 05/05/2018 PRIMARY CARE PROVIDER: In [place], [place]. IT HELP DESK MANAGER: Through the [facility]. HISTORY OF PRESENT ILLNESS: The patient is a very pleasant 78-year-old white female with a very complicated past cardiac history of hypertrophic cardiomyopathy, acute on chronic diastolic heart failure who presented with a subacut e onset of shortness of breath while visiting her daughter and son-in-law down here in [place]. She had some mildly adynamically elevated troponins, hypokalemia and hypomagnesemia. She was admitted. Cardiology was consulted and she has been gently diuresed for the past 3 days. She is scheduled to have an alcohol ablation up with the [facility], I believe it is on 06/09/2018 and we stressed that she keep this appointment. She has had a recent cardiac catheterization and DANIEL, all of which were obtained from [facility] and reviewed by the educational administration teacher. She had a good diuresis here an d we had to replete her electrolytes, but she has felt progressively better. She does have some anxiety about moving around quickly and shortness of breath because she knows that this procedures will l ikely help her underlying problem and therefore improve her symptoms and she is afraid to overexert herself. A recheck chest x-ray on 05/04 showed improvement of her edema and we discussed salt and flu id restriction at length. We resumed her Coumadin as per home dose for goal INR of 2.0 to 3.0. FINAL DIAGNOSES: 1. Subacute onset of shortness of breath with a known history of heart failure. 2. Nhscz-do-nlztfwb diastolic congestive heart failure. 3. Mitral valve insufficiency. 4. Hypertrophic cardiomyopathy. 5. An adynamic troponin elevation with a recent normal heart catheterization. 6. History of paroxysmal atrial fibrillation for which she is undergoing an alcohol ablation at the [facility] on 06/09/2018. 7. Remote history of tobacco use. 8. Hypertension. 9. Hypokalemia. 10. Hypomagnesemia. FINAL MEDICATION LIST: Includes: 1. Cholecalciferol. 2. Chondroitin glucosamine. 3. Anoro Ellipta as previously. 4. Amiodarone 200 mg daily. 5. Lasix 40 mg daily. 6. Potassium chloride 20 mEq daily, which is more than she was taking prior to admission. She is going to do this for 7 days and go back to 10 mEq a day. 7. Finally, Coumadin 2 mg daily as previously for goal INR of 2.0 to 3.0. PRISCILLA SHARPE Birthdate: 1940 D/05/05/2018 12:44:05 T/05/05/2018 16:22:47 VOICE JOB ID: [id number] Shreyas Hoffman thanks you for the opportunity to care for your patient. cc: DID: [id number] MAGNESIUM LEVEL Collected: 05/04/2018 Status: F Source: [facility] 4:56 PM HEALTH SYSTEM REPOSITORY TYPE CODE TESTS RESULT OUT OF RANGE REFERENCE UNITS LAB 45500-7(LO 1.8-2.5 mg/dL INC) Normal Magnesium Level 1.9 Performed By: #### 34215-3, 2823-3 #### [facility] [address], [place] POTASSIUM LEVEL Collected: 05/04/2018 Status: F Source: [facility] 4:56 PM [facility]ALTH SYSTEM REPOSITORY TYPE CODE TESTS RESULT OUT OF RANGE REFERENCE UNITS LAB 2823-3(MAYLIN 3.6-5.1 mMol/L AK) Normal Potassium Level 3.7 Performed By: #### 22254-2, 2823-3 #### [facility] [address], [place] PROGRESS NOTES Observed: 05/04/2018 Status: C Source: [facility] 4:29 PM HEALTH SYSTEM REPOSITORY Patient: PRISCILLA SHARPE MRN: [id number] Age: 78 years Sex: Female : 1940 Associated Diagnoses: None Author: Marivel Pittman DO Supervising Physician Comments Documentation By: Covering Physician. Comments 05/04/2018 16:15 [facility] Brief Note: RN called to notify physician patient complained of weak legs with movement and then cramps at rest. Noted K and Mg were low yesterday and continued to received IV lasix. Ordered K and Mg level. 05/04/2018 20:29 [facility] Brief Note: Reviewed K and Mg normal. RN called to inquire if coumadin would be resumed this evening. Reviewed notes and Cards and [facility] documented planned to resume today. Ordered 2mg and PT/INR in am. Marivel Pittman D.O. [facility] ER ER pager #[phone] [facility] #[phone]. XR CHEST 1 VIEW Observed: 05/04/2018 Status: F Source: [facility] 11:30 AM HEALTH SYSTEM REPOSITORY EXAMINATION TYPE: XR Chest 1 View DATE OF EXAM: 05/04/2018 11:30 AM HISTORY: Hypoxia COMPARISON: Multiple, most recent dated May 02, 2018 FINDINGS: Mild bibasilar patchy opacities. No pneumothorax or large pleural effusion demonstrated. Stable cardiomediastinal silhouette. No acute osseous abnormality identified. IMPRESSION: Mild nonspecific bibasilar patchy opacities. Shreyas Hoffman thanks you for the opportunity to care for your patient. Workstation ID: [id number] - [id number] FINAL REPORT Dictated By: Korey Tamayo MD 05/04/2018 12:17 Assigned Physician: Korey Tamayo MD Reviewed and Electronically Signed By: Korey Tamayo MD 05/04/2018 12:19 Transcribed by: CE 05/04/2018 12:17 Technologist: CARON PROGRESS NOTES Observed: 05/04/2018 Status: F Source: [facility] 11:05 AM HEALTH SYSTEM REPOSITORY Patient: PRISCILLA SHARPE MRN: [id number] Age: 78 years Sex: Female : 1940 Associated Diagnoses: None Author: Kina Jang DO Assessment Assessment and Plan Impression: This is a 78-year-old female with a known history of hypertrophic obstructive cardiomyopathy, lfyfx-ib-rvlagrg diastolic congestive heart failure, who presents with a subacute onset of shortness of ledy th, mildly elevated adynamic troponins, hypokalemia, hypomagnesemia. Diagnoses: Subacute onset of shortness of breath with a known history of heart failure. Zrpmn-ay-qdsljtg diastolic congestive heart failure. Mitral insufficiency, grade unknown. Adynamic troponin elevation with a recent normal heart catheterization. Hypertrophic obstructive cardiomyopathy by history. History of paroxysmal atrial flutter, pending alcohol ablation at [facility] on 06/09/2018. Remote history of tobacco use. Hypertension. Hypokalemia. Hypomagnesemia. Plan: Lasix IV once again now...good diuresis yesterday. RA sats 91-94% Recheck pCXR now- compare to admission CXR. Ddimer was <150 on admission- low index suspicion for PE. And already on Coumadin. Dsicussed salt and fluid restriction with daughter present. Resumed Coumadin. Increase KCL to 20mEq daily. Bates: N/A CVC: N/A Disposition: Check back after lunch- maybe home later today versus am Thursday. Subjective Patient all smiles, looks dyspneic on RA, daughter at bedside. Wants to go home. Objective Last Charted Vital Signs Temperature: 98.1 (05/04 09:00) Pulse: 80 (05/04 09:00) Respiration: 18 (05/04 09:00) BP: 126/82 (05/04 09:00) Pulse Ox: 90 (05/04 10:52) Oxygen Delivery: Room air (05/04 10:52) Pain Score: 0 (05/04 03:21) Intake and Output (Previous 24Hrs) I and O Summary Begin date: 05/03 11:05 End date: 05/04 11:05 24 Hour Intake: 973.75 Output: 1400.00 Balance: -426.25 Last BM: 05/03/18 07:00 Measurements Height: 167.64 cm /66.00 in (Pt reported) (05/02/2018 23:37:00) Weight: 68.4 kg/ 150 lbs 12.7 oz (Actual) (05/04/2018 04:57:15) Body Surface Area: 1.78 m2 Body Mass Index: 24.34 General Exam: Alert and oriented x3, calm, cooperative. looks a little dyspneic at rest. Respiratory Lungs: clear to auscultation, breath sounds equal, no wheezing. fine crackles in deep left base. Cardiovascular Exam: no lower extremity edema. Gastrointestinal Exam: bowel sounds present, abdomen soft, non tender. Neurologic Exam: cranial nerves intact, muscle tone symmetrical, muscle strength adequate. Psychiatric Exam: no evidence of impaired judgement, no evidence of cognitive impairment. Results Review General Results Lab Results : LAB 05/04/2018 05:40 EDT INR 2.49 05/03/2018 17:27 EDT INR 2.92 05/03/2018 06:35 EDT BUN 24 mg/dL HI Creatinine 1.18 mg/dL Hemoglobin 13.2 gm/dL Hematocrit 37.5 % Health Status Allergies Allergic Reactions (Selected) NKA PROGRESS NOTES Observed: 05/04/2018 Status: F Source: [facility] 9:33 AM [facility] SYSTEM REPOSITORY Patient: PRISCILLA SHARPE MRN: [id number] Age: 78 years Sex: Female : 1940 Associated Diagnoses: None Author: Tamara FORTUNE Tamara CARDIOLOGY CONSULT PROGRESS NOTE INTERIM HISTORY/ CHIEF COMPLAINT The patient she is much better today. She feels back to her normal self. PHYSICAL EXAMINATION Vital Signs (Past 36 Hours) Last Charted Minimum Maximum Temperature 98.3 (05/04 04:57) 97.5 (05/03 11:31) 99.2 (05/03 16:15) Pulse 69 (05/04 08:10) 61 (05/02 23:47) 81 (05/03 19:50) Resp 16 (05/04 08:10) 14 (05/02 22:45) 18 (05/04 04:57) Pulse Ox 97 (05/04 08:10) 89 (05/03 05:20) 97 (05/04 08:10) Pain Score 0 (05/04 03:21) 0 (05/04 03:21) 0 (05/04 03:21) BP 107/67 (05/04 04:57) Minimum Maximum Systolic BP 93/53 (05/03 23:32) 132/75 (05/03 16:15) Diastolic BP 93/53 (05/03 23:32) 127/77 (05/03 11:31) Constitutional: The patient is in no distress Chest: Clear to auscultation . Heart: Regular rate and rhythm. normal S1 and S2. Grade 3 ejection systolic murmur in the right upper sternal border. Abdomen: Soft, non-tender. Bowel sounds normal. Extremities: There is no peripheral edema. No cyanosis. Neurological: The patient is alert and oriented to person, place and time. Skin: No cyanosis. Nails show no clubbing. I have reviewed the Telemtery, I/Os, medications, laboratory data, EKGs and radiology images. Pertinent data is summarized below. Telemetry Tele shows sinus rhythm and PVCs. ASSESSMENT -Acute on chronic diastolic heart failure likely precipitated by noncompliance with salt restriction. She is currently euvolemic. -Hypertrophic obstructive cardiomyopathy (refused myomectomy) and is planned to undergo alcohol septal ablation at the [facility] in June 2018 -No angiographic coronary artery disease by coronary angiogram in November 2017. -Paroxysmal atrial fibrillation/flutter status post cardioversion in October 2017. -Hypertension RECOMMENDATIONS -Resume home dose Lasix 40 mg daily. -I discussed importance of salt restriction, fluid restriction, daily weights to prevent recurrent diastolic heart failure decompensation. We discussed contacting her educational administration teacher with weight increase. -Continue home warfarin and amiodarone. -Resume home atenolol after discharge. -Follow-up with local educational administration teacher in [facility] and keep plans for alcohol septal ablation at the [facility] in June 2018 No further inpatient cardiac testing or intervention is indicated this time. We'll sign off. Tamara Mcdonald MD, FACC Portions of this note were generated using Versiumation software. Careful attempts were made at proofreading the note, however unintentional misspellings can occur. DATA REVIEW I and O Summary Begin date: 05/03 09:33 End date: 05/04 09:33 24 Hour Intake: 1000.00 Output: 2300.00 Balance: -1300.00 Last BM: 05/03/18 07:00. Labs - Last 36 hours (Max 2 / lab test) CHEMISTRY Sodium 137 (05/03 06:35) Potassium 3.0 (05/03 06:35) Chloride 101 (05/03 06:35) CO2 29 (05/03 06:35) Glucose 114 (05/03 06:35) Glucose POCT No result BUN 24 (05/03 06:35) Creatinine 1.18 (05/03 06:35) Calcium Total 8.6 (05/03 06:35) Magnesium 1.6 (05/03 06:35) HEMATOLOGY WBC 10.7 (05/03 06:35) RBC 4.82 (05/03 06:35) Hb 13.2 (05/03 06:35) Hematocrit 37.5 (05/03 06:35) Platelets 164 (05/03 06:35) MCV 77.8 (05/03 06:35) MCH 27.5 (05/03 06:35) RDW 15.8 (05/03 06:35) MCHC 35.3 (05/03 06:35) Neutrophil Ab No result Monocyte Ab No result Eosinophil Ab No result Basophil Ab No result Lymphocyte Ab No result COAGULATION Partial Thromboplastin (aPTT) 42.7 Sec (05/02 18:58) INR 2.49 (05/04 05:40) 2.92 (05/03 17:27) Prothrombintime (PT) 28.9 Sec (05/04 05:40) 34.0 Sec (05/03 17:27) CHOLESTEROLS Lipid Profile - Cholesterol 241 mg/dL (05/03 06:35) Lipid Profile - Triglyceride 188 mg/dL (05/03 06:35) HDL Cholesterol 35 mg/dL (05/03 06:35) LDL Cholesterol 168 mg/dL (05/03 06:35) VLDL 38 mg/dL (05/03 06:35) OTHER LABS Anion Gap 7.0 mMol/L (05/03 06:35) 6.0 mMol/L (05/02 19:) Est CrCl IBW (mL/min)-RX 36.19 mL/min (05/03 06:35) 38.69 mL/min (05/02 19:) GFR Est. Non 47 mL/min (05/02 19:) GFR Est. Jo-Ann 57 mL/min (05/02 19:) Alkaline Phosphatase 75 Units/L (05/03 06:35) ALT/SGPT 14 Units/L (05/03 06:35) AST/SGOT 20 Units/L (05/03 06:35) Bilirubin Total 1.3 mg/dL (05/03 06:35) Bilirubin Direct 0.2 mg/dL (05/03 06:35) Protein 6.3 gm/dL (05/03 06:35) Albumin Level 3.8 gm/dL (05/03 06:35) Bilirubin Indirect 1.1 mg/dL (05/03 06:35) Troponin I 0.15 ng/mL (05/03 06:35) 0.16 ng/mL (05/02 23:46) B Type Natriuretic Peptid 1037 Picogram/ml (05/02 23:46) 1137 Picogram/ml (05/02 19:) MPV 8.0 FL (05/03 06:35) 7.9 FL (05/02 19:) Neutrophil 83.6 % (05/02 19:) Lymphocyte 10.2 % (05/02 19:) Monocyte 5.6 % (05/02 19:) Eosinophil 0.1 % (05/02 19:) Basophil 0.5 % (05/02 19:) Neutrophil Absolute 11.90 thou/mcL (05/02 19:01) Lymphocyte Absolute 1.50 thou/mcL (05/02 19:) Monocyte Absolute 0.80 thou/mcL (05/02 19:) Eosinophil Absolute 0.00 thou/mcL (05/02 19:) Basophil Absolute 0.10 thou/mcL (05/02 19:) D Dimer Qn <150 ng/mL (05/02 18:58) . Inpatient Medications: Warfarin 2 mg Tab (Coumadin GEq) 2 mg = 1 Tab, PO, Tab, Daily-Warf, x 1 Time(s)/Dose(s), 05/03/18 16:54:00 EDT, Atrial Fibrillation (INR Target: 2-3) , Comment: Review most current INR before administering. If INR is Last Dose: 05/03/18 18:29:00 Warfarin Therapy Each, Misc, Daily-Warf Last Dose: 05/03/18 18:30:00 Aspirin 81 mg Tab EC (Ecotrin GEq) 81 mg = 1 Tab, PO, Tab EC, Daily,, x 30 Day(s), 05/02/18 23:18:00 EDT Last Dose: 05/03/18 09:01:00 Amiodarone 200 mg Tab (Cordarone GEq) 200 mg = 1 Tab, PO, Tab, Daily,, x 30 Day(s), 05/02/18 23:21:00 EDT Last Dose: 05/03/18 09:01:00 Potassium Chloride SR 20 mEq Tab (K-Dur GEq) 20 mEq = 1 Tab, PO, Tab ER, BID,, x 30 Day(s), 05/03/18 8:34:00 EDT , Comment: Do Not Chew Or Crush Take with meals and with a full glass of water or other beverage Last Dose: 05/03/18 20:42:00 Albuterol HFA 90 mcg/PUFF (Proventil/Ventolin HFA GEq) 2 Puff, 180 mcg, Inhalation, Aerosol, Resp QID, x 30 Day(s), 05/03/18 7:43:00 EDT , Comment: Given with ipratropium (Atrovent HFA 17 mcg/Puff MDI ) is the therapuetic interchange for An Last Dose: 05/03/18 21:41:00 Ipratropium HFA 17 mcg/PUFF (Atrovent GEq) 2 Puff, 34 mcg, Inhalation, Aerosol, Resp QID, x 30 Day(s), 05/03/18 7:43:00 EDT , Comment: Given with albuterol (Albuterol HFA 90 mcg/Puff MDI) is the therapuetic interchange for Anor Last Dose: 05/03/18 21:41:00 Acetaminophen 325 mg Tab (Tylenol GEq) 650 mg = 2 Tab, PO, Tab, Bedtime,, x 30 Day(s), 05/03/18 0:10:00 EDT Last Dose: 05/03/18 22:14:00 DiphenhydrAMINE 25 mg Tab (Benadryl GEq) 25 mg = 1 Tab, PO, Tab, Bedtime, x 30 Day(s), 05/03/18 0:10:00 EDT Last Dose: 05/03/18 20:42:00 oxygen Nasal Cannula, FIO2/LPM: 2, Supplemental oxygen titration to maintain saturation greater than 90% Last Dose: Not Given Albuterol 2.5 mg/3 mL Inh Anne (Proventil/Ventolin GEq) 2.5 mg = 3 mL, Nebul, Anne, Q1h, PRN, Shortness of Breath, x 30 Day(s), 05/02/18 23:20:00 EDT Last Dose: Not Given Acetaminophen 325 mg Tab (Tylenol GEq) 650 mg = 2 Tab, PO, Tab, Q4h, PRN, Pain - Mild, x 30 Day(s), 05/02/18 23:18:00 EDT Last Dose: Not Given Magnesium Hydroxide 8% Susp 30 mL (Milk of Magnesia) 30 mL, PO, Susp, Daily, x 30 Day(s), PRN Constipation, 2,400 mg, 05/02/18 23:18:00 EDT Last Dose: Not Given Bisacodyl 10 mg Suppos (Dulcolax GEq) 10 mg = 1 Suppos, Rectal, Suppos, Daily, PRN, Constipation, x 30 Day(s), 05/02/18 23:18:00 EDT Last Dose: Not Given Nitroglycerin Subl Tab 0.4 mg #25 (Nitrostat GEq) 0.4 mg = 1 Tab, Subl, Tab Subl, Q5min, PRN, See Comments, x 30 Day(s), 05/02/18 23:18:00 EDT Last Dose: Not Given Current IV Orders: Ondansetron 2 mg/mL Inj 2 mL (Zofran GEq) 4 mg = 2 mL, IV Push, Inject, Q6h, PRN, See Comments, x 30 Day(s), 05/02/18 23:18:00 EDT Last Dose: Not Given Atropine 1 mg/mL Vial 1 mL 0.5 mg = 0.5 mL, IV Push, Inject, Q3min, PRN, See Comments, x 6 Time(s)/Dose(s), 05/02/18 23:18:00 EDT Last Dose: Not Given PROTHROMBIN TIME Collected: 05/04/2018 Status: F Source: [facility] 5:40 AM [facility] SYSTEM REPOSITORY TYPE CODE TESTS RESULT OUT OF RANGE REFERENCE UNITS LAB 07049-7([place]) Normal INR 2.49 Result Comment: The recommended therapeutic INR range for most cardiac indications is 2.0-3.0. For high intensity therapy(ie.mechanical heart valves), the recommended range is 2.5-3.5. LAB 5902-2(LOINC) 9.3-12.4 Sec Prothrombin High Time (PT) 28.9 Performed By: #### 5902-2 #### [facility] [address] [place] [address] PROTHROMBIN TIME Collected: 05/03/2018 Status: F Source: [place] 5:27 PM [facility] SYSTEM REPOSITORY TYPE CODE TESTS RESULT OUT OF RANGE REFERENCE UNITS LAB 16481-1([place]) Normal INR 2.92 Result Comment: The recommended therapeutic INR range for most cardiac indications is 2.0-3.0. For high intensity therapy(ie.mechanical heart valves), the recommended range is 2.5-3.5. LAB 5902-2(LOINC) 9.3-12.4 Sec Prothrombin High Time (PT) 34.0 Performed By: #### 5902-2 #### [facility] [address] [place] [address] PROGRESS NOTES Observed: 05/03/2018 Status: F Source: [place] 11:59 AM [facility] SYSTEM REPOSITORY Patient: PRISCILLA SHARPE MRN: [id number] Age: 78 years Sex: Female : 1940 Associated Diagnoses: None Author: Suri Morales RN Heart Failure Education Initiated : Reviewed medications, daily weights, low sodium diet, daily activity levels, signs and symptoms of Heart Failure and when to call physician. Evaluation of LV Function :No echo records available. Medications :Lasix Smoking Cessation :n/a patient states she quit several years ago Referrals :deferred [facility], patient lives in [facility] Comments :Pleasant patient who is visiting from [facility]. Admitted with acute on chronic diastolic heart failure. She feels the extreme heat had something to do with this exacerbation. She did have on e glass of wine and green party food during the family gathering. She reports compliance with medications and daily weights. She does say she is not always the most compliant with sodium and fluid restricti ons. Reviewed dietary and fluid restriction guidelines with patient. Also reviewed HF zones and when to call educational administration teacher. ROLE score for readmission 2. Recommendations :Keep appointment for alcohol ablation at [facility] Follow up with Podiatry Doctor in [facility] Quality Measures Documentation CONSULTATION Observed: 05/03/2018 Status: F Source: [facility] 7:38 AM [facility] SYSTEM REPOSITORY Patient: PRISCILLA SHARPE MRN: [id number] Age: 78 years Sex: Female : 1940 Associated Diagnoses: None Author: Jame Koenig Supervising Physician Comments Documentation By: Physician Financial Operations Analyst. Comments See full dictated consult Impression: 1. Acute on chronic diastolic congestive heart failure 2. Elevated troponin - adynamic. Patient reports a history of normal coronary arteries approximately 3 months ago. 3. Hypertrophic obstructive cardiomyopathy by history 4. Mitral insufficiency - grade unknown 5. Paroxysmal atrial flutter 6. History of tobacco abuse - quit 16 years ago 7. Essential hypertension Recommendations: 1. Diuresis with IV Lasix 2. Records from [facility] - recent cardiac catheterization and DANIEL 3. She has an appointment June 09 at the [facility] for an alcohol ablation 4. Resume atenolol that she takes at home if her blood pressure allows Discussed with Tamara Mcdonald MD PHYSICIAN ADDENDUM NOTE I have personally seen and examined the patient and agree with the assessment of Jame Veras PA-C with the following edits and additions. Briefly, This is a very pleasant 78-year-old female patient (visiting from [place], [place] for birthday of her son-in-law) with hypertension, paroxysmal atrial flutter status post cardioversion October 21, hypertrophic obstructive cardiomyopathy (refused myomectomy) and is planned to undergo alcohol septal ablation at the [facility] in June 2018 who presents with 2-3 days of acute on chronic d yspnea. Chest x-ray and BNP on admission are suggestive of acute on chronic diastolic heart failure. Could be precipitated by dietary indiscretions because of recent birthday green party.. Recent extensive ca rdiac workup included normal coronary angiogram in November 2017 and extensive planning for her hypertrophic obstructive cardiomyopathy Physical examination Vital signs reviewed below Constitutional: The patient is alert and oriented and in no distress. Chest: Bibasilar crackles. Cardiovascular: Regular rate and rhythm. Normal S1. Grade 3 ejection systolic murmur in the right upper sternal border. Mild JVD. Abdomen: Soft, non-tender. Bowel sounds normal. No pulsatile masses or organomegaly. Extremities: There is trace peripheral edema. Neurological: The patient is alert and oriented to person, place and time. Skin: No cyanosis. I have reviewed the Telemetry, I/Os, medications, laboratory data, EKGs and radiology images, summarized below and elsewhere in the medical records. In summary, This is a very pleasant 78-year-old female patient (visiting from [place], [place] for birthday of her son-in-law) with hypertension, paroxysmal atrial flutter status post cardioversion October 2017, hypertrophic obstructive cardiomyopathy (refused myomectomy) and is planned to undergo alcohol septal ablation at the [facility] in June 2018 who presents with 2-3 days of acute on chroni c dyspnea. Chest x-ray and BNP on admission are suggestive of acute on chronic diastolic heart failure. At this time, recommend the following: -IV Lasix 40 mg now. She will probably need an additional dose. Continue home dose Lasix. -Continue home amiodarone and warfarin. -She takes low-dose atenolol at home. We will restart if her blood pressure allows. -The goal here is to reestablish her euvolemia and baseline NYHA class 2-3 dyspnea and keep plans for further treatment of her HOCM at the [facility]. Tamara Mcdonald MD, [facility] CBC Collected: 05/03/2018 Status: F Source: [facility] 6:35 AM HEALTH SYSTEM REPOSITORY TYPE CODE TESTS RESULT OUT OF REFERENCE UNITS RANGE LAB 52029-4(LO 6.2-12.1 FL INC) MPV Normal 8.0 LAB 718-7(LOIN 12.0-16.0 gm/dL C) Normal Hemoglobin 13.2 LAB 43514-0(LO 32.0-36.0 gm/dL INC) MCHC Normal 35.3 LAB 76670-2(LO 35.0-45.0 % INC) Normal Hematocrit 37.5 LAB 04864-8(LO 11.0-14.8 % INC) RDW High 15.8 LAB 55748-8(LO 80.0-97.0 FL INC) Low MCV 77.8 LAB 77535-2(LO 142-424 thou/mcL INC) Normal Platelet Count 164 LAB 19697-8(LO 27.0-34.0 Picograms INC) MCH Normal 27.5 LAB 55128-2(LO 3.80-5.10 million/mcL INC) Red Normal Blood Cell 4.82 Count LAB 25918-1(LO 4.6-10.2 thou/mcL INC) WBC High Count 10.7 Performed By: #### 97865-3 #### [facility] [address], [place] TROPONIN I Collected: 05/03/2018 Status: F Source: [facility] 6:35 HEALTH SYSTEM REPOSITORY TYPE CODE TESTS RESULT OUT OF REFERENCE UNITS RANGE LAB 20103-0(MAYLIN <0.06 ng/mL NC) High Troponin I 0.15 Performed By: #### 30557-7 #### [facility] [address], [place] LIPID PANEL Collected: 05/03/2018 Status: F Source: [facility] 6:35 [facility]ALTH SYSTEM REPOSITORY TYPE CODE TESTS RESULT OUT OF REFERENCE UNITS RANGE LAB 2093-3x1(L <200 mg/dL OINC) Lipid High Profile - 241 Cholesterol Result Comment: Refer to the National Cholesterol Education Program ATP III cut offs for risk stratification. LAB 2085-9(LOINC) >40 mg/dL Low HDL Cholesterol 35 LAB 2571-8(LOINC) <200 mg/dL Lipid Profile Normal - Triglyceride 188 LAB 35953-0(LOINC) <100 mg/dL High LDL Cholesterol 168 LAB 2091-7(LOINC) 2-38 mg/dL VLDL Normal 38 Performed By: #### 12265-2, 99787-3, 43983- 3, 67621-4 #### [facility] [address], [place] MAGNESIUM LEVEL Collected: 05/03/2018 Status: F Source: [place] 6:35 AM [facility]ALTH SYSTEM REPOSITORY TYPE CODE TESTS RESULT OUT OF REFERENCE UNITS RANGE LAB 33237-3(LO 1.8-2.5 mg/dL INC) Low Magnesium Level 1.6 Performed By: #### 99003-2, , 33117- 3, 98446-0 #### [facility] [address], [place] HEPATIC FUNCTION Collected: 05/03/2018 Status: F Source: [place] PANEL 6:35 AM HEALTH SYSTEM REPOSITORY TYPE CODE TESTS RESULT OUT OF RANGE REFERENCE UNITS LAB 1920-8(MAYLIN 15-41 Units/L NC) AST/SGOT Normal 20 LAB 1742-6(MAYLIN 14-63 Units/L NC) ALT/SGPT Normal 14 LAB 1968-7(MAYLIN 0.1-0.5 mg/dL NC) Bilirubin Normal Direct 0.2 LAB 6768-6(MAYLIN 32-91 Units/L NC) Alkaline Normal Phosphatase 75 LAB 1751-7(MAYLIN 3.5-4.8 gm/dL NC) Albumin Normal Level 3.8 LAB 1975-2(MAYLIN 0.3-1.2 mg/dL NC) High Bilirubin Total 1.3 LAB 2885-2(MAYLIN 6.1-7.9 gm/dL NC) Protein Normal 6.3 LAB 1970-1(MAYLIN 0.0-1.0 mg/dL NC) High Bilirubin Indirect 1.1 Performed By: #### 56058-9, 38739-9, 58447- 3, 97350-4 #### [facility] [address], [place] BASIC METABOLIC PANEL Collected: 05/03/2018 Status: F Source: [place] 6:35 AM [facility] SYSTEM REPOSITORY TYPE CODE TESTS RESULT OUT OF RANGE REFERENCE UNITS LAB 10629-9(MAYLIN 8.9-10.3 mg/dL NC) Low Calcium Total 8.6 LAB 23275-4(MAYLIN 8-20 mg/dL NC) High BUN 24 LAB 2028-9(LOIN 22-32 mMol/L C) Normal Carbon 29 Dioxide Level LAB 01843-2(MAYLIN 70-110 mg/dL NC) High Glucose Level 114 LAB 31486-1(MAYLIN 6.0-18.0 mMol/L NC) Normal Anion Gap 7.0 Result Comment: PLEASE NOTE:The calculated Anion Gap(AGAP) does not include Potassium. LAB 2951-2(LOINC) 136-145 mMol/L Normal Sodium Level 137 LAB 2075-0(LOINC) 98-107 mMol/L Normal Chloride Level 101 LAB 2160-0(LOINC) 0.60-1.30 mg/dL Normal Creatinine 1.18 LAB 2823-3(LOINC) 3.6-5.1 mMol/L Low Potassium Level 3.0 Performed By: #### 26101-9, 29073-2, 39055- 3, 29659-2 #### [facility] [address], [place] HISTORY AND PHYSICAL Observed: 05/03/2018 Status: F Source: [place] 12:00 AM HEALTH SYSTEM REPOSITORY DICTATED BY: KINA JANG DO DATE OF ADMISSION: 05/02/2018 PRIMARY CARE PROVIDER: Not listed. She is from [place], [place]. Her primary care is in [place] and her educational administration teacher is at the [facility]. HISTORY OF PRESENT ILLNESS: The patient is a very delightful 78-year-old [place]kin[place] female who is down here in [place] visiting her daughter for her son-in-law's birthday green party and had a somewhat sudden onset of shortness of breath. She has a known cardiac history and what sounds like acute and chronic diastolic congestive heart failure. She is scheduled for an alcohol ablation at the [facility] on 06/09/2018 and i t sounds like she is very compliant on her medications. In workup for this procedure, she had a normal heart cath about 3 months ago and the records of this are pending. This is per her report. Her s hortness of breath initially had kind of woken her up from sleep and therefore, she doubled up on her Lasix and it did help a little bit. As the day progressed, however, she continued to feel short of breath and her family brought her to the Emergency Department. Initially, she was going to be transferred up to her home hospital, but apparently the transportation was not [facility] be [facility]. Therefore, we admitted her here, consulted our cardiac team and we are going to try to gently diurese her. Her BNP was elevated and she has got crackles in her left lower lobe. This morning, everton caal is actually feeling clinically better and we are giving her a dose of IV Lasix right now. Her daughter and granddaughter are at bedside. She denies chest pain and currently at rest is not short of breath. REVIEW OF SYSTEMS: All other review of systems are negative. PAST MEDICAL HISTORY: Jedta-to-zzapibt diastolic heart failure with hypertrophic obstructive cardiomyopathy, mitral valve insufficiency, paroxysmal atrial flutter, hypertension, remote history of tobacco use. PAST SURGICAL HISTORY: None listed. SOCIAL HISTORY: She quit smoking 15 years ago. She is a nondrinker. Again, she lives in [place], is down here visiting family in [place]. She is active and independent at baseline. ALLERGIES: No known drug allergies. MEDICATIONS: List from home includes: 1. Amiodarone 200 mg daily. 2. Cholecalciferol daily. 3. Chondroitin with glucosamine daily. 4. Lasix 40 mg daily. 5. Potassium chloride 10 mEq daily. 6. Anoro Ellipta 1 puff daily. 7. Coumadin. She is on for goal INR of 2.0 to 3.0. PHYSICAL EXAMINATION: VITAL SIGNS: Blood pressure 104/64, heart rate 67, temperature 98.8, respirations 16, pulse ox is anywhere from 89% to 95% on 1 L nasal cannula oxygen and she is typically on no oxygen. HEART: Her heart rate from here is regular. She does have a harsh III/ systolic ejection murmur. LUNGS: Mostly clear. She has some coarse crackles in her left base, but she is clear on the right. There is no wheezing. ABDOMEN: Soft and nontender. She has got normal bowel sounds. EXTREMITIES: Her lower extremities have no edema. She has got bounding distal pulses. NEUROLOGIC: She moves all 4 extremities. Her cranial nerves are intact. She is quite a good historian. LABORATORY EVALUATION: Sodium is 137, potassium is 3.0. We are repleting this now. Chloride is 101, CO2 of 29, BUN is 24, creatinine 1.1. Her liver function studies are pretty much within normal limits. Her magnesium was a little low at 1.6. Troponin was adynamically elevated, started 0.13 to 0.16 back down to 0.15. Her BNP was elevated at 1037. White count 10, hemoglobin 13, hematocrit 37, platelets 164. Her INR is 3.3 yesterday. Her chest x-ray showed a small pleural effusion bilaterally and bibasilar atelectasis or consolidation, clinically correlate. ASSESSMENT AND PLAN: This is a 78-year-old female with a known history of hypertrophic obstructive cardiomyopathy, tyjrc-us-kjnvloz diastolic congestive heart failure, who presents with a somewhat sudden onset of shortness of breath, mildly elevated adynamic troponins, hypokalemia, hypomagnesemia. DIAGNOSES: 1. Subacute onset of shortness of breath with a known history of heart failure. 2. Bseim-qu-vbokcne diastolic congestive heart failure. 3. Mitral insufficiency, grade unknown. 4. Adynamic troponin elevation with a recent normal heart catheterization. 5. Presumed hypertrophic obstructive cardiomyopathy by history. 6. History of paroxysmal atrial flutter, pending alcohol ablation at [facility] on 06/09/2018. 7. Remote history of tobacco use. 8. Hypertension. 9. Hypokalemia. 10. Hypomagnesemia. PLAN: Our plan is to gently diurese her here at [facility] has already given her a dose of IV Lasix. We will follow her I's and O's carefully. It sounds like she is very compliant on her me dications and her diet, although she may have had some dietary indiscretions in the last 48 hours with some family birthday green party and she states she had 1 alcoholic drink. We are waiting for records fr jourdan Adams to confirm her recent normal cardiac catheterization. Her goal is to gently diurese her and get her back to her baseline and continue with her usual planned. I am going to replete her potas sium and her magnesium today and hopefully we will be able to tune her up such that she will be able to get home either later today or tomorrow to resume the previous plan for ablation next month. PRISCILLA SHARPE Birthdate: 1940 [facility]#: [id number] DID: [id number] D/05/03/2018 08:44:17 T/05/03/2018 10:43:47 VOICE JOB ID: [id number] Shreyas Hoffman thanks you for the opportunity to care for your patient. CONSULTATION Observed: 05/03/2018 Status: F Source: [facility] 12:00 AM HEALTH SYSTEM REPOSITORY DICTATED BY:JAME VARGAS SERVICE DATE:05/03/2018 REQUESTING PHYSICIAN: Dharmesh Medina DO REASON FOR CONSULTATION: Non-ST elevation myocardial infarction. SUPERVISING PHYSICIAN: Tamara Mcdonald MD PRIMARY IT HELP DESK MANAGER: She states the educational administration teacher is in [place], [place], HISTORY OF PRESENT ILLNESS: The patient is a pleasant 78-year-old female originally from [place] who presented on this admission complaining of shortness of breath. She lives in the [place], [place] area, but was in town for her son -in-law's birthday this weekend when she noticed the onset of progressive shortness of breath over the last 2 or 3 days. She did not have any significant lower extremity edema and she had trouble sleep ing at night due to the shortness of breath and ultimately decided to come to the Emergency Department. She denies any chest discomfort. A chest x-ray was performed that was read by the radiologist as showing small pleural effusion and basilar atelectasis or consolidation. She underwent laboratory evaluation that showed a BNP of 1137. Troponins were elevated at 0.13, 0.16 and 0.15. INR was 3.32. It appears that she did not receive any specific treatment in the Emergency Department, but felt better with oxygen. She notes that she has a pulse oximeter at home and checked it yesterday and found her pulse ox to be 88% on room air. With oxygen, she is feeling better this morning. Her cardiac history is notable for hypertrophic obstructive cardiomyopathy. In fact, she has an appointment on 06/09/2018 at the [facility] for alcohol ablation. She also has a history of paroxy smal atrial flutter and tells me that she underwent a DANIEL-guided cardioversion in 10/2017, which was successful. She has been on warfarin for the atrial flutter. She underwent a cardiac catheterizatio n on 11/30/2017 at [facility]. It showed normal coronary arteries. The LV gram showed an ejection fraction of 65%. Moderately severe mitral regurgitation was noted by catheterization. REVIEW OF SYSTEMS: Aside from what is mentioned above, she denies fever, chills or cough. No abdominal pain, melena or hematochezia. No lower extremity edema, but she has had orthopnea. No PND. No palpitations, lighth eadedness or syncope. No rashes or blurry vision. She has easy bruising, but no bleeding gums. No unintentional weight loss. No dysphagia or dysuria. No stroke-like symptoms or seizure activity. PAST MEDICAL HISTORY: 1. Warfarin as directed. 2. Anoro Ellipta 62.5/25 mcg daily. 3. Potassium chloride 10 mEq daily. 4. Furosemide 40 mg daily. 5. Glucosamine and chondroitin 200/250 mg daily. 6. Vitamin D3 1000 international units daily. 7. Amiodarone 200 mg daily. ALLERGIES: No known drug allergies. PAST SURGICAL HISTORY: None. FAMILY HISTORY: Mother in her 90s of noncardiac issues. SOCIAL HISTORY: She is and lives alone. She was a former smoker of about a pack per day starting at age 17 until 16 years ago. She denies any significant alcohol use. PHYSICAL EXAMINATION: GENERAL: She is a pleasant 78-year-old female who is in no obvious distress. She is alert and oriented x3. She is cooperative and appears appropriate for stated age. VITAL SIGNS: Blood pressure 127/77, pulse 76, respirations 18, temperature 97.5. SKIN: Warm and dry, no rashes. HEENT: Without scleral icterus. NECK: Supple, no bruits, JVD or lymphadenopathy. LUNGS: Reveal bibasilar crackles. CARDIAC: Reveals regular rate and rhythm, normal S1 and S2. Grade III/ systolic murmur is noted at the right upper sternal border. No gallop or rub. ABDOMEN: Soft, nontender. EXTREMITIES: No clubbing, cyanosis or edema. NEUROLOGIC: Without obvious focal deficit. LABORATORY DATA: WBC 10.7, hemoglobin , hematocrit 37.5, platelets 164,000. Sodium 137, potassium 3.0, chloride 101, CO2 29, BUN 24, creatinine 1.18. Magnesium is 1.6. INR is 3.32. A 12-lead EKG showed normal sinus rhythm, prior anterolateral infarct cannot be excluded. She seems to have biphasic T-waves. IMPRESSION: 1. Nuqrp-vn-dzlpgra diastolic congestive heart failure. 2. Elevated troponin - adynamic. The patient has a history of normal coronary arteries documented by catheterization in 11/2017. 3. Hypertrophic obstructive cardiomyopathy. 4. Mitral insufficiency, moderately severe by recent catheterization. 5. Paroxysmal atrial flutter. 6. History of tobacco abuse, quit 16 years ago. 7. Essential hypertension. RECOMMENDATIONS: Give her 40 mg dose of intravenous Lasix now. She will probably need an additional dose. Continue home dose of Lasix. Continue home amiodarone and warfarin. She takes low-dose atenolol at home. We will restart it if her blood pressure allows. The goal here is to reestablish her euvolemia and baseline NYHA Class II-III dyspnea and keep plans for further treatment of her HOCM at the [facility]. Thank you very much for your consultation. Dr. Tamara Mcdonald supervised the care of this patient. PRISCILLA SHARPE Birthdate: 1940 #: [id number] D/05/03/2018 11:42:03 T/05/03/2018 14:35:34 VOICE JOB ID:[id number] Shreyas Hoffman thanks you for the opportunity to care for your patient. DID: [id number] TROPONIN I Collected: 05/02/2018 Status: F Source: [facility] 11:46 PM HEALTH SYSTEM REPOSITORY TYPE CODE TESTS RESULT OUT OF REFERENCE UNITS RANGE LAB 31661-1(MAYLIN <0.06 ng/mL AK) High Troponin I 0.16 Performed By: #### 01966-5 #### [facility] [address], [place] BNP (B -TYPE Collected: 05/02/2018 Status: F Source: [place] NATRIURETIC PEPTIDE) 11:46 PM HEALTH SYSTEM REPOSITORY TYPE CODE TESTS RESULT OUT OF REFERENCE UNITS RANGE LAB 90138-4(LO 0-100 Picogram/m INC) l B Type High Natriuretic 1037 Peptide Result Comment: Less than 100 CHF is unlikely Greater than 100 Possible left ventricular And less than 400 dysfunction-unlikely acute decompensation Greater than 400 Suspicious for decompensated heart failure Performed By: #### 71394-1 #### [facility] [address] [place] [address] ED PAT EDU Observed: 05/02/2018 Status: F Source: [place] 11:21 PM HEALTH SYSTEM REPOSITORY [facility] [address] [place] [id number] Emergency Department Discharge Instructions PRISCILLA SHARPE , Please provide this information to your Primary Care/Specialist Name : PRISCILLA SHARPE Current Date : 05/02/2018 23:21:34 : 1940 12:00 PM Primary Care Physician : Physician, PCP Unknown Diagnosis : Follow-Up Instructions: LIZZETHNADINE PRISCILLA Caal has been given these follow-up instructions: Laboratory Orders: Name: Status: Troponin I Completed Basic Metabolic Panel Completed CBC with Differential Completed GFRaa Completed GFRbb Completed Prothrombin Time Completed Partial Thromboplastin Time (aPTT) Completed D-Dimer Quantitative Completed BNP (B -Type Natriuretic Peptide) Completed Basic Metabolic Panel Ordered Electrolyte Panel Ordered Lipid Panel Ordered Hepatic Function Panel Ordered Glucose Level Ordered Magnesium Level Ordered Troponin I Ordered BNP (B -Type Natriuretic Peptide) Ordered CBC Ordered Basic Metabolic Panel Ordered Electrolyte Panel Ordered Lipid Panel Ordered Hepatic Function Panel Ordered Glucose Level Ordered Magnesium Level Ordered Troponin I Ordered Troponin I Ordered CBC Ordered Radiology Orders: Name: Status: XR Chest 2 Views Completed Diagnostic Tests: Name: Status: ECG 12 Lead Completed ECG PRN Communication Order Ordered ECG 12 Lead Ordered Echo 2D Cmplt w M-Mode and Dopp Cmplt Ordered ECG PRN Communication Order Ordered ECG PRN Communication Order Ordered ECG 12 Lead Ordered Procedure(s) and Patient Education(s) : EMERGENCY SERVICES MEDICATION LIST Lista de Medicaciones de los Servicios de Emergencia Name PRISCILLA SHARPE MRN (COL)-[id number] PLEASE READ THE FOLLOWING REGARDING YOUR MEDICATIONS Based on the information available during your visit we have given you the medication instructions below. Continue taking medications you took prior to your visit unless you have been told to change. Pl ease share this information with your own doctor. Carry a list of your medications with you in case of an emergency. Update it when medications are stopped, doses are changed, or new medications (includ ing pife-jvs-vzsfizh products) are added. If you have any questions, check with your doctor. Por la informaci??n disponible jeannine weathers visita, las instrucciones de medicaci??n aparecen debajo. Favor de continuar tomando las medicaciones Ud. elisha?? antes de weathers visita por lo menos que hay cambios. Favor de compartir esta informaci??n con weathers medico. Lleva krishna lista de medicaciones consigo por jean de emergenc??a. Actualiza la lista cuando Ud. emma de christian las medicaciones, si cambian las dosis, o si hay nuevas medicaciones a??adidas (incluyendo medicaciones vendidas sin prescripci??n). Favor de preguntar a weathers medico por cualquier omega. THESE ARE THE MEDICATIONS YOU SHOULD BE TAKING amiodarone (amiodarone 200 mg oral tablet) 1 Tab(s) By Mouth once a day. cholecalciferol (Vitamin D3 1000 intl units oral tablet) 1 Tab(s) By Mouth once a day. chondroitin-glucosamine (chondroitin-glucosamine 200 mg-250 mg oral capsule) 1 Capsule By Mouth once a day. furosemide (furosemide 40 mg oral tablet) 1 Tab(s) By Mouth once a day. potassium chloride (potassium chloride 10 mEq oral capsule, extended release) 1 Capsule By Mouth once a day. umeclidinium-vilanterol (Anoro Ellipta 62.5 mcg-25 mcg inhalation powder) 1 Puff(s) Inhalation once a day. warfarin (warfarin 2 mg oral tablet) 1 Tab(s) By Mouth Weekly on Thursday. warfarin (warfarin 2 mg oral tablet) 1 Tab(s) By Mouth Once Daily, Thursday, Thursday, Thursday, Thursday. warfarin (warfarin 2 mg oral tablet) 0.5 Tab(s) By Mouth Once Daily on Thursday and . MEDICATIONS GIVEN DURING MEDICAL VISIT aspirin 325 mg last dose given on 05/02/2018 at 21:41 Route: By Mouth NON-MEDICATION PRESCRIPTION SCHEDULING PHONE NUMBER: MEDICATION CHANGE DETAILS (Not your Final Home Medication List) During the course of your visit, your home medication list was updated with the most current information. The details of those changes are shown below: NEW MEDICATIONS None UPDATED MEDICATIONS None UNCHANGED MEDICATIONS Other Medications amiodarone (amiodarone 200 mg oral tablet) 1 Tab(s) By Mouth once a day. Comment cholecalciferol (Vitamin D3 1000 intl units oral tablet) 1 Tab(s) By Mouth once a day. Comment chondroitin-glucosamine (chondroitin-glucosamine 200 mg-250 mg oral capsule) 1 Capsule By Mouth once a day. Comment furosemide (furosemide 40 mg oral tablet) 1 Tab(s) By Mouth once a day. Comment potassium chloride (potassium chloride 10 mEq oral capsule, extended release) 1 Capsule By Mouth once a day. Comment umeclidinium-vilanterol (Anoro Ellipta 62.5 mcg-25 mcg inhalation powder) 1 Puff(s) Inhalation once a day. Comment warfarin (warfarin 2 mg oral tablet) 1 Tab(s) By Mouth Weekly on Thursday. Comment warfarin (warfarin 2 mg oral tablet) 1 Tab(s) By Mouth Once Daily, Thursday, Thursday, Thursday, Thursday. Comment warfarin (warfarin 2 mg oral tablet) 0.5 Tab(s) By Mouth Once Daily on Thursday and . Comment STOP TAKING THESE MEDICATIONS None DO NOT TAKE UNTIL YOU TALK TO YOUR DOCTOR None [place] [id number] Emergency Department Discharge Instructions Name: PRISCILLA SHARPE Current Date: 05/02/2018 23:21:34 : 1940 12:00 PM Primary Physician: Physician, PCP Unknown We would like to thank you for choosing [facility] for your emergency medical needs. We examined and treated you today on an emergency basis only. This was not a substitute for, or an ef fort to provide, complete medical care. In most cases, you must let your doctor (or the doctor we referred you to) check you again. Tell your doctor about any new or lasting problems. We cannot recogniz e and treat all injuries or illnesses in one emergency department visit. After you leave, you should follow the directions attached. Instructions for obtaining X-rays: When following up with your doctor or a bone doctor, you may need to take copies of your x-rays that were done in the Emergency Department. If you didn't receive these upon your discharge from the emerg ency department, please call . When the final report becomes available and it is reviewed, the emergency department will attempt to contact you if there are any changes in your instruction s. It is important that you leave accurate information with us on how to contact you. IF you cannot be contacted, YOU must contact the follow-up doctor that you were assigned to make sure that the final official x-ray report does not require a change in your treatment. Instructions for obtaining medical records: If you need a copy of your medical records for follow-up, please contact the Health Information Management Department at . Their office hours are 8 AM- 4:30 PM, Thursday through Thursday. Kenia whittington note: Results are not immediately available. Please allow a minimum of 48 hours for documentation and results. If you were prescribed an antibiotic: Antibiotics are life-saving drugs and they need to be used properly. Your team might change your antibiotic because test results show that a different antibiotic would be better to treat your infection. Like all medications, antibiotics have side effects. Some can be serious. This includes the risk of getting an antibiotic-resistant infection later, which may be difficult to treat. Remember to take yo ur antibiotics as prescribed. If you have any questions please talk to your healthcare team. Seatbelts: There is no doubt that seatbelts save lives. Every day, people without seatbelts have more serious injuries. Have everyone buckle up, using age appropriate seatbelts or car seats, to reduce their risk of injury. Smoking: If you do smoke, we encourage you to stop. Smoking affects all aspects of your health and the health of those around you. [facility] offers many resources to help with smoking cessation. Call the [place] Tobacco Quit Line at 3-194-TBCG-NOW ( ). High blood pressure: Your screening blood pressure today was 104 mm Hg / 64 mm Hg. Hypertension (high blood pressure) is blood pressure over 120/80. People with hypertension should contact their primary care provider withi n 30 days to follow up. Check your patient portal for additional blood pressure information. Immunizations: Immunization is a way to protect against deadly infections. Discuss this with your child's hotel service supervisor, or Public Health Department. Your family practice doctor can determine if you need pneumonia or f charan vaccine. The [facility] Department can be reached at . Domestic Violence: If you are a victim of domestic violence (physical, verbal, or emotional), you are not alone. Discuss this with your physician or a friend and call the [place] Domestic Violence Hotline or [facility] Domestic Violence Hotline for assistance and support. You are the most important factor in your recovery. Follow the provided instructions carefully. Take your medications as prescribed. Most importantly, see a doctor again as discussed. If you have problems that we have not discussed, call or visit your do ctor right away. If you do not have a primary care physician, we have provided one for you to follow up with. When you call for an appointment, please inform them that you were seen in the emergency dep artment and the date of your visit. If you are unable to reach your doctor and are still experiencing problems, return to the emergency department. For assistance finding a primary care physician, call the Physician Referral Line at [phone] ([phone]). Suicide Hotline: Your mental and emotional well-being is important. If you are in a mental health crisis or are having thoughts of suicide, please call the nationwide suicide hotline, anytime day or night, at 3-898-734-FNJI (6626). Community Meat Wrapper: You may be contacted by your local fire department for a follow up visit from a community spinning supervisor. The community spinning supervisor can help with a home safety check; follow up care, and general home care management. Pharmacy Information: Below is a list of 24 hour pharmacies that we are aware of. We suggest that you call the specific pharmacy for their hours before traveling to a location. Hours may vary on holidays. [facility] [address], [place] [phone] [address], [place] [address] [phone] [address], [place] [address] [phone] [address], [place] [phone] [address], [place] [phone] [address], [place] [phone] [place] [address] [phone] Take all medications as directed. If you need prescription assistance, contact the following agencies: ?? Partnership for Prescription Assistance at or www.pparx.org ?? [place] at or www.WeatherBugbestrx.org ?? www.[employer].Xspand is a site with many valuable coupons Patient Education Materials PRISCILLA SHARPE has been given the following patient education materials: <><><><><><><><><><><><><><><><><><><><><><><><><><> Patient Visit Summary Signature PRISCILLA SHARPE has been given the following list of patient education materials, prescriptions and follow-up instructions: I, PRISCILLA SHARPE, have received the above patient education materials/instructions and have verbalized understanding: Date Time Patient Signature Date Time Provider Signature DEPART SUMMARY Observed: 05/02/2018 Status: F Source: [facility] 11:21 PM HEALTH SYSTEM REPOSITORY EMERGENCY DEPARTMENT DISCHARGE SUMMARY PATIENT NAME:PRISCILLA SHARPE AGE: 78 Years SEX: Female PHONE:[phone] DOS: 05/02/2018 6:46 PM : 1940 ATTENDING PHYSICIAN:Dharmesh Medina DO PCP: Physician, PCP Unknown CHIEF COMPLAINT: SOB Allergies NKA Problems Active Heart disease Hypertension DISCHARGE DIAGNOSIS: DISCHARGE INSTRUCTIONS: ED PHYSICIAN DOCUMENTATION: History of Present Illness HISTORY OF PRESENT ILLNESS: Patient is a 78-year-old female presenting emergency department today chief complaint shortness of breath. She reports that she has a history of cardiac disease and is sche duled to have an ablation at the [facility] in June. She is on amiodarone and Coumadin. She said that she had a cath 4 months ago that was normal. Yesterday she developed some shortness of breat h while sleeping and had a hard time sleeping she is on 40 mg of Lasix and took 2 extra doses of her medication this helped a little bit. She denies any cough no fevers or chills. She denies any chest pain at this time. Nursing triage notes were reviewed by me and I agree. SOCIAL HISTORY: Patient is a nonsmoker. Medical Decision Making She is in [place] visiting her daughter. She has had a large cardiac work up in [place] and has been referred to the [facility] for an alcohol ablation in June. She reports having a negative catheterization 4 months ago as part of her work up. She reports having a heart murmur, and has been told this is part of her problems. I discussed her elevated troponin and if she would like to stay here or go to [place]. She told me she would like to go to [place] and see her educational administration teacher. I think this would be a reasonable plan. I spoke with Dr. Wilks who told me that he would accept MRs. Sharpe to their hospital. We were attempting to arrange transportation, and were told by [facility] [employer] that insurance wouldn't pay and it would cost over 800 dollars. I called and spoke with Dr. Li who agreed with a [facility]. I discussed this with <rs. Sharpe and she was agreeable to staying here. ED TREATMENT AND COURSE: Results review: Lab results : LAB 05/02/2018 19:01 EDT Sodium Level 133 mMol/L LOW Potassium Level 3.5 mMol/L LOW Chloride Level 101 mMol/L Carbon Dioxide Level 26 mMol/L Anion Gap 6.0 mMol/L Glucose Level 149 mg/dL HI BUN 19 mg/dL Creatinine 1.11 mg/dL Est CrCl IBW (mL/min)-RX 38.69 mL/min GFR Estimated Non 47 mL/min GFR Estimated 57 mL/min Calcium Total 8.4 mg/dL LOW Troponin I 0.13 ng/mL HI WBC Count 14.3 thou/mcL HI Red Blood Cell Count 5.38 million/mcL HI Hemoglobin 14.6 gm/dL Hematocrit 42.4 % MCV 78.9 FL LOW MCH 27.2 Picograms MCHC 34.5 gm/dL RDW 15.8 % HI Platelet Count 199 thou/mcL MPV 7.9 FL Neutrophil 83.6 % HI Lymphocyte 10.2 % LOW Monocyte 5.6 % Eosinophil 0.1 % Basophil 0.5 % Neutrophil Absolute 11.90 thou/mcL HI Lymphocyte Absolute 1.50 thou/mcL Monocyte Absolute 0.80 thou/mcL Eosinophil Absolute 0.00 thou/mcL Basophil Absolute 0.10 thou/mcL 05/02/2018 18:58 EDT Prothrombin Time (PT) 38.8 Sec HI INR 3.32 Partial Thromboplastin (aPTT) 42.7 Sec HI D Dimer Qn <150 ng/mL . DISPOSITION: Time of Departure From ER 05/02/2018 23:21 Discharge/Transfer From ER Admit to inpatient MEDICATION LISTS: CURRENT MEDICATION LIST amiodarone (amiodarone 200 mg oral tablet) 1 Tab(s) By Mouth once a day. cholecalciferol (Vitamin D3 1000 intl units oral tablet) 1 Tab(s) By Mouth once a day. chondroitin-glucosamine (chondroitin-glucosamine 200 mg-250 mg oral capsule) 1 Capsule By Mouth once a day. furosemide (furosemide 40 mg oral tablet) 1 Tab(s) By Mouth once a day. potassium chloride (potassium chloride 10 mEq oral capsule, extended release) 1 Capsule By Mouth once a day. umeclidinium-vilanterol (Anoro Ellipta 62.5 mcg-25 mcg inhalation powder) 1 Puff(s) Inhalation once a day. warfarin (warfarin 2 mg oral tablet) 1 Tab(s) By Mouth Weekly on Thursday. warfarin (warfarin 2 mg oral tablet) 1 Tab(s) By Mouth Once Daily, Thursday, Thursday, Thursday, Thursday. warfarin (warfarin 2 mg oral tablet) 0.5 Tab(s) By Mouth Once Daily on Thursday and . MEDICATIONS GIVEN DURING MEDICAL VISIT aspirin 325 mg last dose given on 05/02/2018 at 21:41 Route: By Mouth LAB RESULTS: LABORATORY TESTS: Pending Lab Result(s): Date Order Results 05/02/2018 23:19 Basic Metabolic Panel Ordered 05/02/2018 23:19 Electrolyte Panel Ordered 05/02/2018 23:19 Lipid Panel Ordered 05/02/2018 23:19 Hepatic Function Panel Ordered 05/02/2018 23:19 Glucose Level Ordered 05/02/2018 23:19 Magnesium Level Ordered 05/02/2018 23:19 Troponin I Ordered 05/02/2018 23:19 BNP (B -Type Natriuretic Peptide) Ordered 05/02/2018 23:19 CBC Ordered Abnormal Lab Result(s): Date Order Results 05/02/2018 19:01 WBC Count H 14.3 thou/mcL 05/02/2018 19:01 Red Blood Cell Count H 5.38 million/mcL 05/02/2018 19:01 MCV L 78.9 FL 05/02/2018 19:01 RDW H 15.8 % 05/02/2018 19:01 Neutrophil Absolute H 11.90 thou/mcL 05/02/2018 19:01 Neutrophil H 83.6 % 05/02/2018 19:01 Lymphocyte L 10.2 % 05/02/2018 19:01 Potassium Level L 3.5 mMol/L 05/02/2018 19:01 Sodium Level L 133 mMol/L 05/02/2018 19:01 Glucose Level H 149 mg/dL 05/02/2018 19:01 Calcium Total L 8.4 mg/dL 05/02/2018 19:01 Troponin I H 0.13 ng/mL 05/02/2018 18:58 Prothrombin Time (PT) H 38.8 Sec 05/02/2018 18:58 Partial Thromboplastin (aPTT) H 42.7 Sec 05/02/2018 19:01 B Type Natriuretic Peptide H 1137 Picogram/ml RADIOLOGY: RADIOLOGY RESULT(S) (Please contact Medical Records office for further information): 05/02/2018 19:45 XR Chest 2 Views EXAMINATION TYPE: XR Chest 2 Views DATE OF EXAM : 05/02/2018 7:52 PMHISTORY: DyspneaFINDINGS: There is a comparison December 07, 2014. Heart is stable and mildly enlarged. The lungs are hyperinflated but otherwise clear. Pulmonary vascularity is normal. There are small pleural effusions and there is some atelectasis or consolidation in the lung bases.IMPRESSION: Small pleural effusion and basilar atelec tasis or consolidationShreyas Hoffman thanks you for the opportunity to care for your patient. Workstation ID: [id number] FOLLOW UP: ED PHYSICIAN NOTES Observed: 05/02/2018 Status: F Source: [facility] 10:09 PM HEALTH SYSTEM REPOSITORY Patient: PRISCILLA SHARPE Age: 78 years Sex: Female : 1940 Associated Diagnoses: None Author: Dharmesh Medina DO Basic Information Patient information:: Chief Complaint from Nursing Triage Note : Chief Complaint-Triage 05/02/2018 18:50 EDT Chief Complaint-Triage SOB . History of Present Illness HISTORY OF PRESENT ILLNESS: Patient is a 78-year-old female presenting emergency department today chief complaint shortness of breath. She reports that she has a history of cardiac disease and is sche duled to have an ablation at the [facility] in June. She is on amiodarone and Coumadin. She said that she had a cath 4 months ago that was normal. Yesterday she developed some shortness of breat h while sleeping and had a hard time sleeping she is on 40 mg of Lasix and took 2 extra doses of her medication this helped a little bit. She denies any cough no fevers or chills. She denies any chest pain at this time. Nursing triage notes were reviewed by me and I agree. SOCIAL HISTORY: Patient is a nonsmoker. Review of Systems REVIEW OF SYSTEMS: CONSTITUTIONAL: Patient denies fever or chills, significant weight change. EYES: No visual changes or eye pain. ENMT: No sore throat, rhinorrhea, otalgia or otorrhea. CARDIOVASCULAR: No chest pain. RESPIRATORY: Difficulty breathing GI: No abdominal pain, nausea or vomiting. : No dysuria, frequency or hematuria. MUSCULOSKELETAL: No back pain, generalized myalgias or arthralgias. INTEGUMENTARY: No skin rash. NEURO: No headache or focal weakness. HEME: No easy bruisability. Health Status Allergies: Allergic Reactions (All) NKA. Past Medical/ Family/ Social History Medical history Past Medical History Problem List Active Heart disease Hypertension Surgical history: No active procedure history items have been selected or recorded.. Family history: No family history items have been selected or recorded., Family history noncontributory. . Social history: Social and Psychosocial Habits Alcohol 12/07/2014 Risk Assessment: Denies Alcohol Use Substance Abuse 12/07/2014 Risk Assessment: Denies Substance Abuse . Physical Examination Vital Signs Vital Signs/Measurements 05/02/2018 21:25 EDT Pulse Rate 69 BPM NML Pulse Rate 68 BPM NML Respiratory Rate 17 Br PM NML Respiratory Rate 19 Br PM HI Pulse Oximetry 92 % NML Systolic BP 111 mm Hg NML Diastolic BP 73 mm Hg NML MAP 86 mm Hg MAP-CF 86 05/02/2018 20:37 EDT Pulse Rate 77 BPM NML Respiratory Rate 25 Br PM >HHI Pulse Oximetry 90 % NML Oxygen Delivery Nasal cannula Systolic BP 112 mm Hg NML Diastolic BP 82 mm Hg NML Pain Score 0 Pain Intensity Scale Numeric Rating Scale-Verbal (Adults) 05/02/2018 20:28 EDT Pulse Rate 77 BPM NML Respiratory Rate 16 Br PM NML Pulse Oximetry 96 % NML Systolic BP 122 mm Hg NML Diastolic BP 74 mm Hg NML 05/02/2018 18:50 EDT Temperature 98.3 Degrees F NML Temperature Route Oral Pulse Rate 79 BPM NML Respiratory Rate 20 Br PM HI Pulse Oximetry 89 % LOW Oxygen Delivery Room air Systolic BP 120 mm Hg NML Diastolic BP 79 mm Hg NML NIBP Method-CC Cuff, Monitor Pain Score 0 Pain Intensity Scale Numeric Rating Scale-Verbal (Adults) Weight 69 kg Weight Type Pt reported Weight Lb 152 lbs Weight Oz 1.91 oz Height 168 cm Height Ft 5 ft Height in 6.14 Inch BSA 1.78 m2 Body Mass Index 24.4 kg/m2 . Oxygen saturation. PHYSICAL EXAM: CONSTITUTIONAL: Well--nourished. Appropriately conversant and follows commands well. HEAD: Normocephalic, atraumatic. EYES: No conjunctival injection, no icterus. EARS: External ears appear normal. NOSE: Nose appears normal. No rhinorrhea. RESPIRATORY: Normal chest excursion with respiration, breath sounds are strong and equal bilaterally without focal wheezing rales or rhonchi and no stridor is present. CARDIOVASCULAR: Heart rate and rhythm is regular without rub or gallop. No acrocyanosis present about the extremities. GASTROINTESTINAL: Abdomen is soft, non-distended, with no focal tenderness and without guarding, rigidity or rebound tenderness. Bowel sounds are present. There is no CVA tenderness. NEUROLOGICAL: Awake, alert and appropriately conversant. Good eye contact is maintained. PSYCHOLOGICAL: The patient's mood and manner are appropriate. Grooming and personal hygiene are appropriate. INTEGUMENTARY: Warm and dry. No rash noted. MUSCULOSKELETAL: Muscle bulk and tone grossly normal. There are no deformities to any of the extremities. Medical Decision Making She is in [place] visiting her daughter. She has had a large cardiac work up in [place] and has been referred to the [facility] for an alcohol ablation in June. She reports having a negative catheterization 4 months ago as part of her work up. She reports having a heart murmur, and has been told this is part of her problems. I discussed her elevated troponin and if she would like to stay here or go to [place]. She told me she would like to go to [place] and see her educational administration teacher. I think this would be a reasonable plan. I spoke with Dr. Wilks who told me that he would accept MRs. Sharpe to their hospital. We were attempting to arrange transportation, and were told by [facility] [employer] that insurance wouldn't pay and it would cost over 800 dollars. I called and spoke with Dr. Li who agreed with a dmitting [facility] her [facility]. I discussed this with <rs. Sharpe and she was agreeable to staying here. ED TREATMENT AND COURSE: Results review: Lab results : LAB 05/02/2018 19:01 EDT Sodium Level 133 mMol/L LOW Potassium Level 3.5 mMol/L LOW Chloride Level 101 mMol/L Carbon Dioxide Level 26 mMol/L Anion Gap 6.0 mMol/L Glucose Level 149 mg/dL HI BUN 19 mg/dL Creatinine 1.11 mg/dL Est CrCl IBW (mL/min)-RX 38.69 mL/min GFR Estimated Non 47 mL/min GFR Estimated 57 mL/min Calcium Total 8.4 mg/dL LOW Troponin I 0.13 ng/mL HI WBC Count 14.3 thou/mcL HI Red Blood Cell Count 5.38 million/mcL HI Hemoglobin 14.6 gm/dL Hematocrit 42.4 % MCV 78.9 FL LOW MCH 27.2 Picograms MCHC 34.5 gm/dL RDW 15.8 % HI Platelet Count 199 thou/mcL MPV 7.9 FL Neutrophil 83.6 % HI Lymphocyte 10.2 % LOW Monocyte 5.6 % Eosinophil 0.1 % Basophil 0.5 % Neutrophil Absolute 11.90 thou/mcL HI Lymphocyte Absolute 1.50 thou/mcL Monocyte Absolute 0.80 thou/mcL Eosinophil Absolute 0.00 thou/mcL Basophil Absolute 0.10 thou/mcL 05/02/2018 18:58 EDT Prothrombin Time (PT) 38.8 Sec HI INR 3.32 Partial Thromboplastin (aPTT) 42.7 Sec HI D Dimer Qn <150 ng/mL . Impression and Plan IMPRESSION: 1. NSTEMI 2. 3. PLAN: ED PHYSICIAN NOTES Observed: 05/02/2018 Status: CANCELLED Source: [facility] 9:27 PM [facility] SYSTEM REPOSITORY Patient: PRISCILLA SHARPE MRN: [id number] Age: 78 years Sex: Female : 1940 Associated Diagnoses: None Author: Dharmesh Medina DO Informed Consent for Transfer: I have been informed of the risks and benefits of a transfer and [ X] Permission is granted for the transfer for further medical treatment. [ ] Permission is not granted for the transfer for further medical treatment. Signature of Patient Date/Time Signed Witness Relationship to Pt. Transported by: Time: Signature/Title: Date: Information sent with Transport Personnel: Lab Work [ ] X-Rays [ ] EKG [ ] ED Record [ ] Transform Form [ ] Other: 05/02/18 21:25:00 Pulse: 69 BP: 111/73 Respiration: 17 Pulse Ox: 92 Diagnosis/History: NSTEMI Reason for Transfer: Cardiac evaluation, continuity of care Physician Ordering/Contacting Facility for Transfer: Dharmesh Medina D.O. Name of Hospital Accepting Patient Transfer: [facility] Name of Physician Accepting Patient Transfer: Dr. Wilks Time of Facility Consent for Transfer: 05/02/2018 21:29 Assessment at Time of Transfer: Stable Brief Assessment: IV Site: CERTIFICATION: [X] I certify that the patient is medically stable for transfer for the reason identified above. [X] I certify that based upon information available at this time, the medical benefits of the transfer outweigh the increased risks to the individual's medical condition from the transfer. 05/02/2018 21:29 Signature of Physician Result Comment: transfer was canceled XR CHEST 2 VIEWS Observed: 05/02/2018 Status: F Source: [facility] 7:52 PM [facility]ALTH SYSTEM REPOSITORY EXAMINATION TYPE: XR Chest 2 Views DATE OF EXAM : 05/02/2018 7:52 PM HISTORY: Dyspnea FINDINGS: There is a comparison December 07, 2014. Heart is stable and mildly enlarged. The lungs are hyperinflated but otherwise clear. Pulmonary vascularity is normal. There are small pleural effusions and there is some atelectasis or consolidation in the lung bases. IMPRESSION: Small pleural effusion and basilar atelectasis or consolidation Shreyas Hoffman thanks you for the opportunity to care for your patient. Workstation ID: [id number] FINAL REPORT Dictated By: Chiquita Ratliff MD 05/02/2018 20:12 Assigned Physician: Chiquita Ratliff MD Reviewed and Electronically Signed By: Chiquita Ratliff MD 05/02/2018 20:13 Transcribed by: CE 05/02/2018 20:12 Technologist: BOOKER CBC WITH DIFFERENTIAL Collected: 05/02/2018 Status: F Source: [facility] 7:01 PM [facility]ALTH SYSTEM REPOSITORY TYPE CODE TESTS RESULT OUT OF REFERENCE UNITS RANGE LAB 742-7(LOIN 0.00-0.90 thou/mcL C) Normal Monocyte 0.80 Absolute LAB 41888-3(LO 11.0-14.8 % INC) RDW High 15.8 LAB 44222-1(LO 0.0-12.0 % INC) Normal Monocyte 5.6 LAB 29555-7(LO 80.0-97.0 FL INC) Low MCV 78.9 LAB 49848-2(LO 6.2-12.1 FL INC) MPV Normal 7.9 LAB 82202-6(LO 0.0-2.0 % INC) Normal Basophil 0.5 LAB 704-7(LOIN 0.00-0.20 thou/mcL C) Normal Basophil 0.10 Absolute LAB 67502-4(LO 3.80-5.10 million/mcL INC) Red High Blood Cell 5.38 Count LAB 98319-5(LO 32.0-36.0 gm/dL INC) MCHC Normal 34.5 LAB 30100-1(LO 22.0-44.0 % INC) Low Lymphocyte 10.2 LAB 731-0(LOIN 1.00-4.80 thou/mcL C) Normal Lymphocyte 1.50 Absolute LAB 15702-4(LO 35.0-45.0 % INC) Normal Hematocrit 42.4 LAB 03291-5(LO 142-424 thou/mcL INC) Normal Platelet Count 199 LAB 711-2(LOIN 0.00-0.70 thou/mcL C) Normal Eosinophil 0.00 Absolute LAB 82310-0(LO 0.0-7.0 % INC) Normal Eosinophil 0.1 LAB 00894-9(LO 4.6-10.2 thou/mcL INC) WBC High Count 14.3 LAB 77939-6(LO 27.0-34.0 Picograms INC) MCH Normal 27.2 LAB 64038-6(LO 40.0-70.0 % INC) High Neutrophil 83.6 LAB 751-8(LOIN 1.80-7.70 thou/mcL C) High Neutrophil 11.90 Absolute LAB 718-7(LOIN 12.0-16.0 gm/dL C) Normal Hemoglobin 14.6 Performed By: #### 56857-9 #### [facility] [address], [place] GFRAA Collected: 05/02/2018 Status: F Source: [facility] 7:01 PM HEALTH SYSTEM REPOSITORY TYPE CODE TESTS RESULT OUT OF RANGE REFERENCE UNITS LAB 56068-6(LO mL/min INC) GFR Normal Estimated 57 Result Comment: The MDRD equation has not been validated for those over 70 years, women, patients with serious co-morbid conditions, or with extremes of body size, muscle mass of nutritional status. Performed By: #### 97153-8, 73866-8q1, 02835-7, 22599-4 #### [facility] [address], [place] GFRBB Collected: 05/02/2018 Status: F Source: [facility] 7:[facility] REPOSITORY TYPE CODE TESTS RESULT OUT OF RANGE REFERENCE UNITS LAB 54184-0(LO mL/min INC) GFR Normal Estimated Non 47 Performed By: #### 80935-5, 33059-0g0, 06561-7, 78549-4 #### [facility] [address], [place] BASIC METABOLIC PANEL Collected: 05/02/2018 Status: F Source: [facility] 7:[facility] REPOSITORY TYPE CODE TESTS RESULT OUT OF RANGE REFERENCE UNITS LAB 2160-0(MAYLIN 0.60-1.30 mg/dL NC) Normal Creatinine 1.11 LAB 81691-6(LO 6.0-18.0 mMol/L INC) Anion Normal Gap 6.0 Result Comment: PLEASE NOTE:The calculated Anion Gap(AGAP) does not include Potassium. LAB 2075-0(LOINC) 98-107 mMol/L Normal Chloride Level 101 LAB 85198-2(LOINC) 8-20 mg/dL BUN Normal 19 LAB 2028-9(LOINC) 22-32 mMol/L Normal Carbon Dioxide Level 26 LAB 21731-5(LOINC) 8.9-10.3 mg/dL Low Calcium Total 8.4 LAB 54968-2(LOINC) 70-110 mg/dL High Glucose Level 149 LAB 2823-3(LOINC) 3.6-5.1 mMol/L Low Potassium Level 3.5 LAB 2951-2(LOINC) 136-145 mMol/L Low Sodium Level 133 Performed By: #### 12278-1, 15262-1r1, 97283-8, 59799-3 #### [facility] [address], [place] TROPONIN I Collected: 05/02/2018 Status: F Source: [facility] 7:[facility] REPOSITORY TYPE CODE TESTS RESULT OUT OF REFERENCE UNITS RANGE LAB 05927-6(MAYLIN <0.06 ng/mL NC) High Troponin I 0.13 Performed By: #### 67872-5, 73287-7b2, 90568-0, 03721-2 #### [facility] [address], [place] BNP (B -TYPE Collected: 05/02/2018 Status: F Source: [facility] NATRIURETIC PEPTIDE) 7:01 PM HEALTH SYSTEM REPOSITORY TYPE CODE TESTS RESULT OUT OF REFERENCE UNITS RANGE LAB 15132-7(LO 0-100 Picogram/m INC) l B Type High Natriuretic 1137 Peptide Result Comment: Less than 100 CHF is unlikely Greater than 100 Possible left ventricular And less than 400 dysfunction-unlikely acute decompensation Greater than 400 Suspicious for decompensated heart failure Performed By: #### 64426-8 #### [place] [address] [place], [place] D-DIMER QUANTITATIVE Collected: 05/02/2018 Status: F Source: [place] 6:58 PM [facility] REPOSITORY TYPE CODE TESTS RESULT OUT OF RANGE REFERENCE UNITS LAB 7799-0(LOIN 150-230 ng/mL C) Normal D Dimer <150 Qn Result Comment: NORMAL REFERENCE RANGE 150-230 NG/ML CUT OFF 230 NG/ML At this cut off level the negative predictive value for this test is 96-100% for venous thromboembolism(VTE) in patients with a low pre-test probability of deep vein thrombosis(DVT)/pulmonary embolism(PE). Clinical correlation is essential. When utilizing this test to rule out DVT or PE, this test is best used in the Emergency Department setting. These units correspond to ng/mL of D-DU or D-Dimer Units. Performed By: #### 65647-0, 5902-2, 3173- 2 #### [facility] [address] [place], [place] PROTHROMBIN TIME Collected: 05/02/2018 Status: F Source: [place] 6:58 PM [facility] REPOSITORY TYPE CODE TESTS RESULT OUT OF RANGE REFERENCE UNITS LAB 5902-2(MAYLIN 9.3-12.4 Sec NC) High Prothrombin Time (PT) 38.8 LAB 77647-0(LO INC) INR Normal 3.32 Result Comment: The recommended therapeutic INR range for most cardiac indications is 2.0-3.0. For high intensity therapy(ie.mechanical heart valves), the recommended range is 2.5-3.5. Performed By: #### 70453-5, 5902-2, 3173- 2 #### [facility] [address] [place], [place] PARTIAL THROMBOPLASTIN Collected: 05/02/2018 Status: F Source: [place] TIME (APTT) 6:58 PM [facility]ALTH SYSTEM REPOSITORY TYPE CODE TESTS RESULT OUT OF REFERENCE UNITS RANGE LAB 53573-6(LO 23.6-35.3 Sec INC) Partial High Thromboplastin 42.7 (aPTT) Result Comment: PLEASE NOTE: OF November: Performed By: #### 50029-2, 5902-2, 3173- 2 #### [facility] [address] [place], [place] PROGRESS Observed: 04/19/2018 Status: COMPLETED Source: [place] 4:10 PM [facility] REPOSITORY HNO ID: [id number] Author: Portia Theodore RN Service: (none) Author Type: (none) Type: Progress Notes Filed: 04/19/2018 4:10 PM Note Text: per written order by dr pacheco patient is to take 1mg Tues.Thurs and 2mg all other days PATIENT NOTIFIED OF INFORMATION PROGRESS Observed: 04/19/2018 Status: COMPLETED Source: [place] 1:26 PM [facility] REPOSITORY HNO ID: [id number] Author: Portia Theodore RN Service: (none) Author Type: (none) Type: Progress Notes Filed: 04/19/2018 1:27 PM Note Text: patient had inr completed at [facility] patients inr is 1.7 (patients inr range is 2.0-3.0) patient is currently taking 1mg Tues,Thurs,Sat and 2mg all other days patients last dose change was on 02/23/18 due to a high level of 3.8 (dose at that time was 2mg daily) patient has had no changes in medication and no missed doses and no change in diet Advised patient that they would be contacted regarding medication dose and when to follow up after information is reviewed by provider. After provider review please contact the patient with information and schedule follow up appointment with coumadin clinic. FYI - patient has been scheduled for a 2 week follow up inr on 05/03/18 CNOV Observed: 04/12/2018 Status: COMPLETED Source: [place] 11:00 AM [facility] [place] REPOSITORY Office Visit (PULMWS) NANDA SHARPEE ([id number]) 1940 F Date Time Provider Department 04/12/18 11:00 AM AALIYAH STONE PULMWS During your visit today, we recorded the following information about you: Pulse Respiration Blood pressure Weight 54/minute 16/minute 106/58 69.9 kg Height 1.676 m Aaliyah Stone PA-C 04/12/2018 11:28 AM Signed [facility] [place], 04/12/18: HPI: The patient is here for follow up of COPD. PMH: HTN, Diastolic CHF, MVP, Hyperlipidemia, A Fib, Hypertrophic Obstructive Cardiomyopathy, Small cell lymphoma s/p chemotherapy. Former smoker, quit 2012. 58 pack years. Since the last Pulmonary Clinic visit, the patient has not sought care for exacerbation. Patient fairly compliant with prescribed Rx. I forget some days. Occasional cough. White sputum. No hemoptysis. No pleuritic chest pain. No wheezing. Exertional dyspnea, improved exertional tolerance. I'm not really restricted with activities. Unable to do long walks or climb a lot of steps. Once in awhile rescue bronchodilator use. Has not used for a few months. Scheduled April 29, 2018 for alcohol ablation secondary to hypertrophic cardiomyopathy, valvular disease, A Fib. No lower extremity edema. PMH changes: Reviewed with patient today. No changes. FAMH changes: Reviewed with patient today. No changes. SOCH changes: No changes. Immunization History Administered Date(s) Administered Influenza Seasonal - High Dose - Age 65+ 08/23/2013 08/18/2017 Influenza Seasonal Inj Age 3+ 07/17/2015 Influenza Vaccine, Split-Non Spec 07/17/2012 Pneumococcal-13 Vac Conjugate 09/01/2015 Pneumovax 06/13/2010 TD Adult 11/02/1994 07/19/2012 ROS: General: Generally feels good. Appetite good. Weight stable. Eyes, Ears, nose, throat: Post nasal drip, rhinorrhea. No purulent nasal discharge, epistaxis. No hoarseness. Vision stable. Cardiac: No angina, edema, orthopnea. GI: No heartburn, dysphagia, diarrhea. 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 Musculoskeletal: No pain. Neuro: No headache, focal weakness, tremor. Skin: No rash. Otherwise negative. Allergies were reviewed and updated, and medications were reconciled with the patient. PHYSICAL EXAMINATION: BP 106/58 Pulse 54 Resp 16 Ht 5' 6 (1.68m) Wt 154 lb (69.9kg) SpO2 95% BMI 24.87 kg/(m2). Gen: No acute distress. Cooperative with examination. ENT: Sclerae clear. Nares clear. Oral hygeine and dentition good. Pharynx clear. No halitosis. Resp: No stridor, accessory respiratory muscle use, supra- sternal or intercostal retractions. No wheezes, crackles, rubs. CV: Regular rythm.. Harsh murmur. No carotid bruit. Radial pulses normal. Abd: Non distended. MSK: No kyphoscoliosis, joint deformities of the extremities. Ext: Warm and well perfused. No clubbing, cyanosis, edema. Skin: Color normal. Texture normal. No rash, eczema, urticaria, ecchymoses. Neuro: Mental status normal. Affect normal. Muscle tone normal, symmetrical. No tremor. DATA REVIEW: DATE: 04/12/18 10/16/17 07/02/17 FVC 2.46 (84 % pred) 2.67 (90 % pred) 2.60 (96 % pred) FEV1 1.47 (67 % pred) 1.58 (71 % pred) 1.39 (69 % pred) FEV1/FVC 0.60 0.59 0.54 CXR, 12/06/17 IMPRESSION: Flattening of the diaphragms No acute infiltrate or effusion Result: The heart size is normal. The lung jasmine are clear of infiltrate. The costophrenic angles are clear. There is flattening of hemidiaphragms. ?Degenerative spine changes. ?No significant change in heart or lung findings compared to study 01/18/2017 Cardiac Cath 11/30/17 at [facility] revealed normal coronary arteries. Moderate mitral valve prolapse. Echocardiogram, 09/02/17 CONCLUSIONS: - Exam indication: Re-evaluation of known valvular heart disease with change in clinical status - The left ventricle is normal in size. There is severe upper septal left ventricular hypertrophy. Left ventricular systolic function is normal. EF = 60 ? 5% (visual est.) - The right ventricle is normal in size. Right ventricular systolic function is normal. - The left atrial cavity is severely dilated. - No left atrial appendage thrombi. - Eccentric anteriorely directed severe MR due to posterior leaflet prolapse - Significant LVOT obstruction (GUI) with peak gradient of 86 mmHg - No increase in heart rate post amyl, no significant change in gradient ? - Exam was compared with the prior echocardiographic exam performed on 01/07/17. Mitral regurgitation is now identified as severe and a significant LVOT gradient was observed. IMPRESSION/RECOMMEND: 1. 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 Symptomatically doing well, however, slight decrease in FEV1. Discussed with patient using Anoro every day and rechecking lung function in 3 months. - Continue Anoro 1 inhalation once daily every day regardless of your symptoms. - Influenza and pneumococcal vaccination current. - The patient is advised to remain?as physically active as possible. - Patient is also advised to maintain?a healthy appetite and diet. ? 2. Mitral valve prolapse, severe/A Fib/Hypertrophic cardiomyopathy. - Follows with Dr. Argueta. - Scheduled for alcohol ablation on 04/29/18. - I re-addressed the pathophysiology of chronic bronchitis, emphysema, and COPD; and reviewed the management of this condition as outlined in the GOLD and ATS guidelines, including: smoking cessation, Pneumococcal and annual Influenza vaccination, bronchodilators, inhaled corticosteroids, antibiotics, exercise/rehabilitation, and oxygen. - I also again discussed mechanisms of action of medications, alternatives, and potential side effects of treatment. I addressed the questions of the patient, and she expressed understanding and acceptance of my answers. Aaliyah Stone PA-C [facility] [place] [facility] [address] [phone] Inga Rodriguez LPN 04/12/2018 11:01 AM Signed Intake information documented in the prior visit with Yari Iglesias, METAL MODEL MAKER today. Aaliyah Stone PA-C 04/12/2018 11:21 AM Signed 1. 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 Symptomatically doing well, however, slight decrease in FEV1. Discussed with patient using Anoro every day and rechecking lung function in 3 months. - Continue Anoro 1 inhalation once daily every day regardless of your symptoms. - Influenza and pneumococcal vaccination current. - The patient is advised to remain?as physically active as possible. - Patient is also advised to maintain?a healthy appetite and diet. ? 2. Mitral valve prolapse, severe/A Fib/Hypertrophic cardiomyopathy. - Follows with Dr. Argueta. - Scheduled for alcohol ablation on 04/29/18. Referring Provider: AALIYAH STONE [[id number]] Allergies As of Date: 04/12/2018 Noted Allergy Reaction ZYLOPRIM (ALLOPURINOL) 05/26/2017 2 - Rash environmental [Other] 12/30/2005 5 - Intolerance Comments: rhinitis TRAMADOL 03/10/2016 14 - Other: See Comments Comments: made patient woozy/dizzy Date Reviewed: 04/12/2018 Reviewed by: Aaliyah Stone - Fully Assessed Reason for Visit: Established Patient [175] Primary Visit Diagnosis:Pulmonary emphysema, unspecified emphysema type (HCC) [J43.9] Order(s):SPIROMETRY BASELINE ONLY [3245552] Order #: [id number] FUTURE Prescriptions as of 04/12/2018 Sig: WARFARIN 2 MG TABLET Take 2 mg by mouth once daily. BENZONATATE 100 MG CAPSULE Take 2 capsules by mouth thre* FUROSEMIDE 40 MG TABLET Take 1 tablet by mouth once d* AMIODARONE 200 MG TABLET Take 1 tablet by mouth once d* ATENOLOL 50 MG TABLET Take 0.5 tablets by mouth onc* MAGNESIUM OXIDE 400 MG TABLET Take 1 tablet by mouth once d* POTASSIUM CHLORIDE ER 10 MEQ * Take 2 capsules by mouth twic* UMECLIDINIUM 62.5 MCG-VILANTE* Inhale one inhalation as inst* ALBUTEROL SULFATE HFA 90 MCG/* Inhale 2 Puffs as instructed * CHOLECALCIFEROL (VITAMIN D3) * Take 1 capsule by mouth once * GLUCOSAMINE AND CHONDROIT SUL.N* Take 1 tablet by mouth once d* ASPIRIN 325 MG TABLET Take 325 mg by mouth once kodi* Problem List As Of Date 04/12/2018 Noted Resolved 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 IMPAIRED FASTING GLUCOSE [R73.01] INVALID FOR* Essential hypertension [I10] INVALID FOR* More... Osteoporosis [M81.0] INVALID FOR* More... Vitamin D Deficiency [E55.9] INVALID FOR* More... MR (mitral regurgitation) [I34.0] IBS (irritable bowel syndrome) [K58.9] More... 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 Other instructions from your clinician: 1. 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 Symptomatically doing well, however, slight decrease in FEV1. Discussed with patient using Anoro every day and rechecking lung function in 3 months. - Continue Anoro 1 inhalation once daily every day regardless of your symptoms. - Influenza and pneumococcal vaccination current. - The patient is advised to remain?as physically active as possible. - Patient is also advised to maintain?a healthy appetite and diet. ? 2. Mitral valve prolapse, severe/A Fib/Hypertrophic cardiomyopathy. - Follows with Dr. Argueta. - Scheduled for alcohol ablation on 04/29/18. Visit Notes: >> Inga Michael ADAME ThuApr 12, 2018 10:58 AM Status: Signed Intake information documented in the prior visit with Yari Iglesias CRT today. Medications Discontinued During This Encounter Benzonatate 200 mg capsule 21 c* 0 08/16/2017 04/12/2018 Route: ORAL Sig: Take 200 mg by mouth three times daily as needed. Disc: Duplicate Entry Disposition: Return in about 3 months (around 07/13/2018). Follow-up and Disposition History Recorded Encounter Status:Closed by AALIYAH STONE on 04/12/18 PROGRESS Observed: 04/12/2018 Status: COMPLETED Source: [place] 10:53 AM [facility] REPOSITORY HNO ID: [id number] Author: Aaliyah Stone Service: (none) Author Type: Physician Financial Operations Analyst Type: Progress Notes Filed: 04/12/2018 11:28 AM Note Text: [facility] [place], 04/12/18: HPI: The patient is here for follow up of COPD. PMH: HTN, Diastolic CHF, MVP, Hyperlipidemia, A Fib, Hypertrophic Obstructive Cardiomyopathy, Small cell lymphoma s/p chemotherapy. Former smoker, quit 2012. 58 pack years. Since the last Pulmonary Clinic visit, the patient has not sought care for exacerbation. Patient fairly compliant with prescribed Rx. I forget some days. Occasional cough. White sputum. No hemoptysis. No pleuritic chest pain. No wheezing. Exertional dyspnea, improved exertional tolerance. I'm not really restricted with activities. Unable to do long walks or climb a lot of steps. Once in awhile rescue bronchodilator use. Has not used for a few months. Scheduled April 29, 2018 for alcohol ablation secondary to hypertrophic cardiomyopathy, valvular disease, A Fib. No lower extremity edema. PMH changes: Reviewed with patient today. No changes. FAMH changes: Reviewed with patient today. No changes. SOCH changes: No changes. Immunization History Administered Date(s) Administered Influenza Seasonal - High Dose - Age 65+ 08/23/2013 08/18/2017 Influenza Seasonal Inj Age 3+ 07/17/2015 Influenza Vaccine, Split-Non Spec 07/17/2012 Pneumococcal-13 Vac Conjugate 09/01/2015 Pneumovax 06/13/2010 TD Adult 11/02/1994 07/19/2012 ROS: General: Generally feels good. Appetite good. Weight stable. Eyes, Ears, nose, throat: Post nasal drip, rhinorrhea. No purulent nasal discharge, epistaxis. No hoarseness. Vision stable. Cardiac: No angina, edema, orthopnea. GI: No heartburn, dysphagia, diarrhea. 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 Musculoskeletal: No pain. Neuro: No headache, focal weakness, tremor. Skin: No rash. Otherwise negative. Allergies were reviewed and updated, and medications were reconciled with the patient. PHYSICAL EXAMINATION: BP 106/58 Pulse 54 Resp 16 Ht 5' 6 (1.68m) Wt 154 lb (69.9kg) SpO2 95% BMI 24.87 kg/(m2). Gen: No acute distress. Cooperative with examination. ENT: Sclerae clear. Nares clear. Oral hygeine and dentition good. Pharynx clear. No halitosis. Resp: No stridor, accessory respiratory muscle use, supra- sternal or intercostal retractions. No wheezes, crackles, rubs. CV: Regular rythm.. Harsh murmur. No carotid bruit. Radial pulses normal. Abd: Non distended. MSK: No kyphoscoliosis, joint deformities of the extremities. Ext: Warm and well perfused. No clubbing, cyanosis, edema. Skin: Color normal. Texture normal. No rash, eczema, urticaria, ecchymoses. Neuro: Mental status normal. Affect normal. Muscle tone normal, symmetrical. No tremor. DATA REVIEW: DATE: 04/12/18 10/16/17 07/02/17 FVC 2.46 (84 % pred) 2.67 (90 % pred) 2.60 (96 % pred) FEV1 1.47 (67 % pred) 1.58 (71 % pred) 1.39 (69 % pred) FEV1/FVC 0.60 0.59 0.54 CXR, 12/06/17 IMPRESSION: Flattening of the diaphragms No acute infiltrate or effusion Result: The heart size is normal. The lung jasmine are clear of infiltrate. The costophrenic angles are clear. There is flattening of hemidiaphragms. ?Degenerative spine changes. ?No significant change in heart or lung findings compared to study 01/18/2017 Cardiac Cath 11/30/17 at [facility] revealed normal coronary arteries. Moderate mitral valve prolapse. Echocardiogram, 09/02/17 CONCLUSIONS: - Exam indication: Re-evaluation of known valvular heart disease with change in clinical status - The left ventricle is normal in size. There is severe upper septal left ventricular hypertrophy. Left ventricular systolic function is normal. EF = 60 ? 5% (visual est.) - The right ventricle is normal in size. Right ventricular systolic function is normal. - The left atrial cavity is severely dilated. - No left atrial appendage thrombi. - Eccentric anteriorely directed severe MR due to posterior leaflet prolapse - Significant LVOT obstruction (GUI) with peak gradient of 86 mmHg - No increase in heart rate post amyl, no significant change in gradient ? - Exam was compared with the prior echocardiographic exam performed on 01/07/17. Mitral regurgitation is now identified as severe and a significant LVOT gradient was observed. IMPRESSION/RECOMMEND: 1. 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 Symptomatically doing well, however, slight decrease in FEV1. Discussed with patient using Anoro every day and rechecking lung function in 3 months. - Continue Anoro 1 inhalation once daily every day regardless of your symptoms. - Influenza and pneumococcal vaccination current. - The patient is advised to remain?as physically active as possible. - Patient is also advised to maintain?a healthy appetite and diet. ? 2. Mitral valve prolapse, severe/A Fib/Hypertrophic cardiomyopathy. - Follows with Dr. Argueta. - Scheduled for alcohol ablation on 04/29/18. - I re-addressed the pathophysiology of chronic bronchitis, emphysema, and COPD; and reviewed the management of this condition as outlined in the GOLD and ATS guidelines, including: smoking cessation, Pneumococcal and annual Influenza vaccination, bronchodilators, inhaled corticosteroids, antibiotics, exercise/rehabilitation, and oxygen. - I also again discussed mechanisms of action of medications, alternatives, and potential side effects of treatment. I addressed the questions of the patient, and she expressed understanding and acceptance of my answers. Aaliyah Stone PA-C [facility] [place] [facility] [place] [address] [place] [phone] PROGRESS Observed: 04/05/2018 Status: COMPLETED Source: [place] 4:18 PM [facility] REPOSITORY O ID: [id number] Author: Portia Theodore RN Service: (none) Author Type: (none) Type: Progress Notes Filed: 04/05/2018 4:18 PM Note Text: per written order by dr pacheco she agrees with information below PROGRESS Observed: 04/05/2018 Status: COMPLETED Source: [place] [address]:10 PM [facility] REPOSITORY HNO ID: [id number] Author: Portia Theodore RN Service: (none) Author Type: (none) Type: Progress Notes Filed: 04/05/2018 1:11 PM Note Text: patient had inr completed at [facility] patients inr is 1.9 (patients inr range is 2.0-3.0) patient is currently taking 1mg Tues,Thus,Sat and 2mg all other days patients last dose change was on 02/23/18 due to a high level of 3.8 (dose at that time was 2mg daily) patient has had no changes in medication and no missed doses and no change in diet Advised patient to continue on the same dose(s) and that they would only be contacted regarding dosage and follow up instructions after review with provider, if a change is needed. Written instructions given and patient verbalized understanding. Presently scheduled in 2 weeks (04/19/18) for follow up INR. PROGRESS Observed: 03/22/2018 Status: COMPLETED Source: [place] 4:22 PM [facility] REPOSITORY HNO ID: [id number] Author: Portia Theodore RN Service: (none) Author Type: (none) Type: Progress Notes Filed: 03/22/2018 4:22 PM Note Text: per written order by dr pacheco she agrees with information below PROGRESS Observed: 03/22/2018 Status: COMPLETED Source: [place] 2:03 PM [facility] REPOSITORY HNO ID: [id number] Author: Alisia Pacheco Service: (none) Author Type: Physician Type: Progress Notes Filed: 04/02/2018 12:52 AM Note Text: Patient presents with: Recheck SUBJECTIVE: Priscilla Sharpe is a 78 year old year old lady here today for 6 month follow up appointment for review of medical conditions. Noted cardiac issues with PAF. May at end of the month to do the alcohol ablation treatment. Tolerating amiodarone. Wonders abot possible adverse effects. Tolerating meds well. Did well with treatments. 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 Monson follows for benign tumor removed 2002 - Unspecified essential hypertension 10/06/2008 Current Outpatient Prescriptions: warfarin (COUMADIN) 2 mg tablet Take 2 mg by mouth once daily. benzonatate (TESSALON PERLES) 100 mg capsule Take 2 capsules by mouth three times daily as needed for Cough. furosemide (LASIX) 40 mg tablet Take 1 tablet by mouth once daily. aspirin 325 mg tablet Take 325 mg by mouth once daily. amiodarone (PACERONE) 200 mg tablet Take 1 tablet by mouth once daily. atenolol (TENORMIN) 50 mg tablet Take 0.5 tablets by mouth once daily. magnesium oxide (MAGOX) 400 mg tablet Take 1 tablet by mouth once daily. potassium chloride SR (MICRO-K) 10 mEq CR capsule Take 2 capsules by mouth twice daily. on days taking furosemide (Lasix) umeclidinium-vilanterol (ANORO ELLIPTA) 62.5-25 mcg/actuation inhaler Inhale one inhalation as instructed once daily Benzonatate 200 mg capsule Take 200 mg by mouth three times daily as needed. albuterol HFA (VENTOLIN HFA) 90 mcg/actuation inhaler Inhale 2 Puffs as instructed every 4 hours as needed for Wheezing/Shortness of Breath. Cholecalciferol, Vitamin D3, 1,000 unit cap Take 1 capsule by mouth once daily. GLUCOSAM SUL NA/CHONDR WEATHERS A NA (GLUCOSAMINE AND CHONDROIT SUL.NA ORAL) Take 1 tablet by mouth once daily. No current facility-administered medications for this visit. OBJECTIVE: BP 130/78 Pulse 62 Resp 16 Wt 70.3 kg (155 lb) BMI 25.02 kg/m? Patient is alert, oriented times 3, no apparent distress, affect is bright, reactive. Last 5 Encounter BP Readings: Date: BP: 03/22/2018 130/78 01/13/2018 120/70 12/14/2017 116/57 12/06/2017 100/60 11/27/2017 98/60 Last 5 Encounter Wt Readings: Date: Wt: 03/22/2018 70.3 kg (155 lb) 01/13/2018 69 kg (152 lb 3.2 oz) 12/14/2017 66.5 kg (146 lb 8 oz) 12/06/2017 65.8 kg (145 lb) 11/27/2017 65.8 kg (145 lb) Neck: tight muscles on left side of neck. Decreased ROM and hurts more to turn to the left and hurts into shoulder and down back (consistent with pinched nerve pain). Heart: Regular rate, rhythm, noted III/ systolic murmur at LSB and apex,no gallops,no rubs. Lungs: Clear to auscultation, bilaterally, breathing non labored. Ext: No cyanosis, clubbing, or edema. ASSESSMENT AND PLAN: Encounter Diagnosis ICD-10-CM 1. Essential hypertension I10 2. Non-rheumatic mitral regurgitation I34.0 3. Cervical neck pain with evidence of disc disease M50.90 4. Cervical radicular pain M54.12 5. PAF (paroxysmal atrial fibrillation) ([facility]) I48.0 Low back pain better since had chemo--pain gone. Was so severe before and nothing helped. Did well with chemo. Overall, doing well. Staying as active as able. Above issues addressed with patient. Patient involved in shared decision making for management of her medical issues. History and medications reviewed. Epic updated as needed Refills taken care of and meds adjusted as indicated after reviewed history, exam and labs. Health Maintenance reviewed. Updated record and/or ordered tests as recorded. Encouraged on efforts at healthy diet and regular exercise and adequate sleep. The majority of the visit was spent counseling and/or coordinating care for the patient. Gybx-ak-tbcx time was at least 20 minutes. MD TRAVIS EspañaOV Observed: 03/22/2018 Status: COMPLETED Source: [place] 1:20 PM [facility] REPOSITORY Office Visit (INTMWS) PRISCILLA SHARPE ([id number]) 1940 F Date Time Provider Department 03/22/18 1:20 PM ALISIA PACHECO INTJOANN During your visit today, we recorded the following information about you: Pulse Respiration Blood pressure Weight 62/minute 16/minute 130/78 70.3 kg Alisia Pacheco MD 04/02/2018 12:52 AM Signed Patient presents with: Recheck SUBJECTIVE: Priscilla Sharpe is a 78 year old year old lady here today for 6 month follow up appointment for review of medical conditions. Noted cardiac issues with PAF. May at end of the month to do the alcohol ablation treatment. Tolerating amiodarone. Wonders abot possible adverse effects. Tolerating meds well. Did well with treatments. 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 Monson follows for benign tumor removed 2002 - Unspecified essential hypertension 10/06/2008 Current Outpatient Prescriptions: warfarin (COUMADIN) 2 mg tablet Take 2 mg by mouth once daily. benzonatate (TESSALON PERLES) 100 mg capsule Take 2 capsules by mouth three times daily as needed for Cough. furosemide (LASIX) 40 mg tablet Take 1 tablet by mouth once daily. aspirin 325 mg tablet Take 325 mg by mouth once daily. amiodarone (PACERONE) 200 mg tablet Take 1 tablet by mouth once daily. atenolol (TENORMIN) 50 mg tablet Take 0.5 tablets by mouth once daily. magnesium oxide (MAGOX) 400 mg tablet Take 1 tablet by mouth once daily. potassium chloride SR (MICRO-K) 10 mEq CR capsule Take 2 capsules by mouth twice daily. on days taking furosemide (Lasix) umeclidinium-vilanterol (ANORO ELLIPTA) 62.5-25 mcg/actuation inhaler Inhale one inhalation as instructed once daily Benzonatate 200 mg capsule Take 200 mg by mouth three times daily as needed. albuterol HFA (VENTOLIN HFA) 90 mcg/actuation inhaler Inhale 2 Puffs as instructed every 4 hours as needed for Wheezing/Shortness of Breath. Cholecalciferol, Vitamin D3, 1,000 unit cap Take 1 capsule by mouth once daily. GLUCOSAM SUL NA/CHONDR WEATHERS A NA (GLUCOSAMINE AND CHONDROIT SUL.NA ORAL) Take 1 tablet by mouth once daily. No current facility-administered medications for this visit. OBJECTIVE: BP 130/78 Pulse 62 Resp 16 Wt 70.3 kg (155 lb) BMI 25.02 kg/m? Patient is alert, oriented times 3, no apparent distress, affect is bright, reactive. Last 5 Encounter BP Readings: Date: BP: 03/22/2018 130/78 01/13/2018 120/70 12/14/2017 116/57 12/06/2017 100/60 11/27/2017 98/60 Last 5 Encounter Wt Readings: Date: Wt: 03/22/2018 70.3 kg (155 lb) 01/13/2018 69 kg (152 lb 3.2 oz) 12/14/2017 66.5 kg (146 lb 8 oz) 12/06/2017 65.8 kg (145 lb) 11/27/2017 65.8 kg (145 lb) Neck: tight muscles on left side of neck. Decreased ROM and hurts more to turn to the left and hurts into shoulder and down back (consistent with pinched nerve pain). Heart: Regular rate, rhythm, noted III/ systolic murmur at LSB and apex,no gallops,no rubs. Lungs: Clear to auscultation, bilaterally, breathing non labored. Ext: No cyanosis, clubbing, or edema. ASSESSMENT AND PLAN: Encounter Diagnosis ICD-10-CM 1. Essential hypertension I10 2. Non-rheumatic mitral regurgitation I34.0 3. Cervical neck pain with evidence of disc disease M50.90 4. Cervical radicular pain M54.12 5. PAF (paroxysmal atrial fibrillation) ([facility]) I48.0 Low back pain better since had chemo--pain gone. Was so severe before and nothing helped. Did well with chemo. Overall, doing well. Staying as active as able. Above issues addressed with patient. Patient involved in shared decision making for management of her medical issues. History and medications reviewed. Epic updated as needed Refills taken care of and meds adjusted as indicated after reviewed history, exam and labs. Health Maintenance reviewed. Updated record and/or ordered tests as recorded. Encouraged on efforts at healthy diet and regular exercise and adequate sleep. The majority of the visit was spent counseling and/or coordinating care for the patient. Lgmg-xb-kogv time was at least 20 minutes. MD Alisia España MD 03/22/2018 2:18 PM Signed Gilberto Ramos MD--who saw you in November in [place]. Referring Provider: SELF [200] Allergies As of Date: 03/22/2018 Noted Allergy Reaction ZYLOPRIM (ALLOPURINOL) 05/26/2017 2 - Rash environmental [Other] 12/30/2005 5 - Intolerance Comments: rhinitis TRAMADOL 03/10/2016 14 - Other: See Comments Comments: made patient woozy/dizzy Date Reviewed: 03/22/2018 Reviewed by: Jaylyn Hale Social Service Worker - Fully Assessed Reason for Visit: Recheck [92] Primary Visit Diagnosis:Essential hypertension [I10] Other Visit Diagnoses:Non-rheumatic mitral regurgitation [I34.0] Cervical neck pain with evidence of disc disease [M50.90] Cervical radicular pain [M54.12] PAF (paroxysmal atrial fibrillation) (HCC) [I48.0] Order(s):INR (POC) [2732059] Order #: [id number] #:[id number] Prescriptions as of 03/22/2018 Sig: WARFARIN 2 MG TABLET Take 2 mg by mouth once daily. BENZONATATE 100 MG CAPSULE Take 2 capsules by mouth thre* FUROSEMIDE 40 MG TABLET Take 1 tablet by mouth once d* ASPIRIN 325 MG TABLET Take 325 mg by mouth once kodi* AMIODARONE 200 MG TABLET Take 1 tablet by mouth once d* ATENOLOL 50 MG TABLET Take 0.5 tablets by mouth onc* MAGNESIUM OXIDE 400 MG TABLET Take 1 tablet by mouth once d* POTASSIUM CHLORIDE ER 10 MEQ * Take 2 capsules by mouth twic* UMECLIDINIUM 62.5 MCG-VILANTE* Inhale one inhalation as inst* BENZONATATE 200 MG CAPSULE Take 200 mg by mouth three ti* ALBUTEROL SULFATE HFA 90 MCG/* Inhale 2 Puffs as instructed * CHOLECALCIFEROL (VITAMIN D3) * Take 1 capsule by mouth once * GLUCOSAMINE AND CHONDROIT SUL.N* Take 1 tablet by mouth once d* Problem List As Of Date 03/22/2018 Noted Resolved 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 IMPAIRED FASTING GLUCOSE [R73.01] INVALID FOR* Essential hypertension [I10] INVALID FOR* More... Osteoporosis [M81.0] INVALID FOR* More... Vitamin D Deficiency [E55.9] INVALID FOR* More... MR (mitral regurgitation) [I34.0] IBS (irritable bowel syndrome) [K58.9] More... 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 Other instructions from your clinician: Gilberto Ramos MD--who saw you in November in [place]. Disposition: Return in about 6 months (around 09/22/2018) for 6 months follow up. Follow-up and Disposition History Recorded Encounter Status:Closed by ALISIA PACHECO MD on 04/02/18 PROGRESS Observed: 03/22/2018 Status: COMPLETED Source: [place] 12:59 PM [facility] REPOSITORY HNO ID: [id number] Author: Portia Theodore RN Service: (none) Author Type: (none) Type: Progress Notes Filed: 03/22/2018 1:00 PM Note Text: patient had inr completed at [facility] patients inr is 1.8 (patients inr range is 2.0-3.0) patient is currently taking 1mg Tues,Thurs,Sat and 2mg all other days patients last dose change was on 02/23/18 due to a high level of 3.8 (dose at that time was 2mg daily) patient has had no changes in medication and no missed doses and no change in diet Advised patient to continue on the same dose(s) and that they would only be contacted regarding dosage and follow up instructions after review with provider, if a change is needed. Written instructions given and patient verbalized understanding. Presently scheduled in 2 weeks (04/05/18) for follow up INR since level is slightly below the normal range. PROGRESS Observed: 03/03/2018 Status: COMPLETED Source: [place] 3:03 PM [facility] REPOSITORY HNO ID: [id number] Author: Portia Theodore RN Service: (none) Author Type: (none) Type: Progress Notes Filed: 03/03/2018 3:03 PM Note Text: per written order by dr pacheco she agrees with information below PROGRESS Observed: 03/03/2018 Status: COMPLETED Source: [place] 1:21 PM [facility] REPOSITORY HNO ID: [id number] Author: Portia Theodore RN Service: (none) Author Type: (none) Type: Progress Notes Filed: 03/03/2018 1:23 PM Note Text: patient had inr completed at [facility] patients inr is 2.6 (patients inr range is 2.0-3.0) patient is currently taking 1mg Tues,Thurs,Sat and 2mg all other days patients last dose change was on 02/23/18 due to a high level of 3.8 (dose at that time was 2mg daily) patient has had no changes in medication and no missed doses and no change in diet Advised patient to continue on the same dose(s) and that they would only be contacted regarding dosage and follow up instructions after review with provider, if a change is needed. Written instructions given and patient verbalized understanding. Presently scheduled in 2 weeks (03/22/18) for follow up INR since this is the first normal reading since dose change. PROGRESS Observed: 02/23/2018 Status: COMPLETED Source: [place] 4:11 PM [facility] REPOSITORY HNO ID: [id number] Author: Portia Theodore RN Service: (none) Author Type: (none) Type: Progress Notes Filed: 02/23/2018 4:11 PM Note Text: per written order by dr pacheco patient is to hold dose today and then do 1mg Tues,Thurs,Sat and 2mg all other days and recheck and scheduled PATIENT NOTIFIED OF INFORMATION PROGRESS Observed: 02/23/2018 Status: COMPLETED Source: [place] 1:06 PM [facility] REPOSITORY HNO ID: [id number] Author: Portia Theodore RN Service: (none) Author Type: (none) Type: Progress Notes Filed: 02/23/2018 1:08 PM Note Text: patient had inr completed at [facility] patients inr is 3.8 (patients inr range is 2.0-3.0) patient is currently taking 2mg daily patients last dose change was on 01/19/18 due to a low level of 1.6 (dose at that time was 1mg Sun and 2mg all other days) patient has had no changes in medication and no missed doses and no change in diet Advised patient that they would be contacted regarding medication dose and when to follow up after information is reviewed by provider. After provider review please contact the patient with information and schedule follow up appointment with coumadin clinic. FYI - patient has been scheduled for a 1 week follow up inr on 03/02/18 PROGRESS Observed: 02/09/2018 Status: COMPLETED Source: [place] 4:11 PM [facility] REPOSITORY HNO ID: [id number] Author: Portia Theodore RN Service: (none) Author Type: (none) Type: Progress Notes Filed: 02/09/2018 4:11 PM Note Text: per written order by dr pacheco she agrees with information below PROGRESS Observed: 02/09/2018 Status: COMPLETED Source: [place] 2:17 PM [facility] REPOSITORY HNO ID: [id number] Author: Portia Theodore RN Service: (none) Author Type: (none) Type: Progress Notes Filed: 02/09/2018 2:18 PM Note Text: patient had inr completed at [facility] patients inr is 3.0 (patients inr range is 2.0-3.0) patient is currently taking 2mg daily patients last dose change was on 01/19/18 due to a low level of 1.6 (dose at that time was 1mg Sun and 2mg all other days) patient has had no changes in medication and no missed doses and no change in diet Advised patient to continue on the same dose(s) and that they would only be contacted regarding dosage and follow up instructions after review with provider, if a change is needed. Written instructions given and patient verbalized understanding. Presently scheduled in 2 weeks (02/23/18) for follow up INR. PROGRESS Observed: 01/26/2018 Status: COMPLETED Source: [place] 4:44 PM [facility] REPOSITORY HNO ID: [id number] Author: Georgia Solorio Service: (none) Author Type: Physician Type: Progress Notes Filed: 01/26/2018 4:55 PM Note Text: agree PROGRESS Observed: 01/26/2018 Status: COMPLETED Source: [place] 3:02 PM [facility] REPOS[facility] HNO ID: [id number] Author: Portia Theodore RN Service: (none) Author Type: (none) Type: Progress Notes Filed: 01/26/2018 3:03 PM Note Text: patient had inr completed at [facility] patients inr is 2.6 (patients inr range is 2.0-3.0) patient is currently taking 2mg daily patients last dose change was on 01/19/18 due to a low level of 1.6 (dose at that time was 1mg Sun and 2mg all other days) patient has had no changes in medication except for the coumadin and no missed doses and no change in diet Advised patient to continue on the same dose(s) and that they would only be contacted regarding dosage and follow up instructions after review with provider, if a change is needed. Written instructions given and patient verbalized understanding. Presently scheduled in 2 weeks (02/10/18) for follow up INR since this is the first normal reading since dose change. PROGRESS Observed: 01/19/2018 Status: COMPLETED Source: [place] 3:28 PM [facility] REPOSITORY HNO ID: [id number] Author: Portia Theodore RN Service: (none) Author Type: (none) Type: Progress Notes Filed: 01/19/2018 3:28 PM Note Text: per written order by dr pacheco patient is to take 2mg daily and recheck in 1 week. PATIENT NOTIFIED OF INFORMATION PROGRESS Observed: 01/19/2018 Status: COMPLETED Source: [place] 10:36 AM [facility] REPOSITORY HNO ID: [id number] Author: Portia Theodore RN Service: (none) Author Type: (none) Type: Progress Notes Filed: 01/19/2018 10:38 AM Note Text: patient had inr completed at [facility] patients inr is 1.6 (patients inr range is 2.0-3.0) patient is currently taking 1mg Sun and 2mg all other days patients last dose change was on 01/11/18 due to a low level of 1.3 (dose at that time was 2mg Mon,Fri and 1mg all other days) patient has had no changes in medication except for the coumadin and no missed doses and no change in diet Advised patient that they would be contacted regarding medication dose and when to follow up after information is reviewed by provider. After provider review please contact the patient with information and schedule follow up appointment with coumadin clinic. FYI - patient has been scheduled for a 1 week inr follow up on 01/26/18 ALT Collected: 01/13/2018 Status: F Source: [place] 3:30 PM [facility] REPOSITORY TYPE CODE TESTS RESULT OUT OF RANGE REFERENCE UNITS LAB ALT 7-38 U/L ALT 13 Performed By: #### ALT, BMP, TSH #### [facility] [address] [address] BASIC METABOLIC PANL Collected: 01/13/2018 Status: F Source: [place] 3:30 PM [facility] REPOSITORY TYPE CODE TESTS RESULT OUT OF REFERENCE UNITS RANGE LAB GLU 74-99 mg/dL Glucose 77 Result Comment: The [place] [employer] (ADA) provides guidance for cutoff values for fasting glucose and random glucose. The ADA defines fasting as no caloric intake for at least 8 hours. Fas ting plasma glucose results between 100 to 125 mg/dL indicate increased risk for diabetes (prediabetes). Fasting plasma glucose results greater than or equal to 126 mg/dL meet the criteria for diagnosis of diabetes. In the absence of unequivocal hyperglycemia, results should be confirmed by repeat testing. In a patient with classic symptoms of hyperglycemia or hyperglycemic crisis, random plasma glucose results greater than or equal to 200 mg/dL meet the criteria for diagnosis of diabetes. Reference: Standards of Medical Care in Diabetes 2016, [place] [employer]. Diabetes Care. 2016.39(Suppl 1). LAB BUN 7-21 mg/dL BUN 20 LAB CRET 0.58-0.96 mg/dL Creatinine High 0.99 LAB NA 136-144 mmol/L Sodium 141 LAB K 3.7-5.1 mmol/L Potassium 4.0 LAB CL 97-105 mmol/L Chloride 102 LAB CO2 22-30 mmol/L CO2 26 LAB AGAP 9-18 mmol/L Anion Gap 13 LAB CA 8.5-10.2 mg/dL Calcium, Total 9.3 LAB GFRAA eGFR- Amer. >60 LAB GFRNAA . eGFR-All Other Races 54 Result Comment: eGFR (Estimated GFR) Units of measure: mL/min/1.73 meters squared eGFR is derived from the reexpressed MDRD Study equation using the following parameters: serum creatinine, age, gender and race. The creatinine assay has been calibrated to be traceable to IDMS. An eGFR <60 mL/min/1.73m2 for >3 months is consistent with chronic kidney disease. Refer to KDOQI guidelines for clinical interpretation. In patients with unstable renal function, e.g. those with acute kidney injury, the eGFR may not accurately reflect actual GFR. Performed By: #### ALT, BMP, TSH #### [facility] [address] [place], [place] [id number] TSH Collected: 01/13/2018 Status: F Source: [place] 3:30 PM [facility] REPOSITORY TYPE CODE TESTS RESULT OUT OF RANGE REFERENCE UNITS LAB TSH 0.400-5.500 uU/mL TSH 1.190 Performed By: #### ALT, BMP, TSH #### [facility] [address] [place], [place] [address] PROGRESS Observed: 01/13/2018 Status: COMPLETED Source: [place] 3:17 PM [facility] REPOSITORY O ID: [id number] Author: Brandon Argueta Service: (none) Author Type: Physician Type: Progress Notes Filed: 01/13/2018 3:34 PM Note Text: PERTINENT CARDIAC HISTORY PAF - cardioversion 05/18, 10/18 HCM HTN HL - declines statin MVP with mitral insufficiency - severe CHF - diastolic Long QT ADHERENCE TO GUIDELINES CIERRA-I or ARB for HF with prior LVEF<40 (NQF 0081) - N/A ASA or Plavix for ASHD (NQF 0067) - N/A Beta jhon for ASHD with prior RI or prior LVEF<40 (NQF 0070) - N/A Beta jhon for HF with prior LVEF<40 (NQF 0083) - N/A CIERRA-I or ARB for ASHD with DM or prior LVEF<40 (NQF 0066) - N/A Statin therapy for ASHD or FHL or DM - declines BMI documented and plan if >25 (NQF 0421) - lifestyle recommendation form Tobacco use screening and referral (NQF 0028) - lifestyle recommendation form Recommendation for whole food, plant based diet - lifestyle recommendation form CLINICAL IMPRESSION/PLAN: Priscilla Sharpe is doing well. She is tolerating amiodarone. She will have TSH and ALT to monitor toxicity. Basic profile will be checked today and diuretics will be adjusted. Her volume is well-controlled at this time. She has been reminded not to ignore the onset of atrial fibrillation, as she decompensates fairly quickly. She should be getting a call from Dr. Rich's office in the near future. I've asked her to contact me if she does not. I will see her following her procedure Written and verbal health teaching given to patient, patient verbalizes understanding and agrees with treatment plan. This note was generated using [employer] voice recognition system, and there may be some incorrect words, spellings, and punctuation that were not noted in checking the note before saving. DIAGNOSIS FOR VISIT: PAF Mitral insufficiency HISTORY OF PRESENT ILLNESS Priscilla Sharpe returns for follow-up of her valvular disease, hypertrophic myopathy and atrial fibrillation. And has been determined that she is a good candidate for alcohol septal ablation. She has not yet been called about setting this up. She's had no recent palpitations. She's taking her a diuretic as recommended. She's had no chest pain, orthopnea. Her edema has improved. She's had no syncope, TIAs, amaurosis. ALLERGIES: ALLERGIES Allergen Reactions - Zyloprim [Allopurin* Rash - Tramadol Other: See Comments made patient woozy/dizzy - Environmental [Othe* Intolerance rhinitis CURRENT OUTPATIENT MEDICATIONS: warfarin (COUMADIN) 2 mg tablet Take 2 mg by mouth once daily. benzonatate (TESSALON PERLES) 100 mg capsule Take 2 capsules by mouth three times daily as needed for Cough. furosemide (LASIX) 40 mg tablet Take 1 tablet by mouth once daily. amiodarone (PACERONE) 200 mg tablet Take 1 tablet by mouth once daily. atenolol (TENORMIN) 50 mg tablet Take 0.5 tablets by mouth once daily. magnesium oxide (MAGOX) 400 mg tablet Take 1 tablet by mouth once daily. potassium chloride SR (MICRO-K) 10 mEq CR capsule Take 2 capsules by mouth twice daily. on days taking furosemide (Lasix) umeclidinium-vilanterol (ANORO ELLIPTA) 62.5-25 mcg/actuation inhaler Inhale one inhalation as instructed once daily albuterol HFA (VENTOLIN HFA) 90 mcg/actuation inhaler Inhale 2 Puffs as instructed every 4 hours as needed for Wheezing/Shortness of Breath. Cholecalciferol, Vitamin D3, 1,000 unit cap Take 1 capsule by mouth once daily. GLUCOSAM SUL NA/CHONDR WEATHERS A NA (GLUCOSAMINE AND CHONDROIT SUL.NA ORAL) Take 1 tablet by mouth once daily. aspirin 325 mg tablet Take 325 mg by mouth once daily. Benzonatate 200 mg capsule Take 200 mg by mouth three times daily as needed. PHYSICAL EXAMINATION: VITAL SIGNS: BP 120/70 Pulse 60 Ht 5' 6 (1.68m) Wt 152 lb 3.2 oz (69.0kg) BMI 24.58 kg/(m2). Chest: Clear to percussion and auscultation. Trachea is midline. Air entry is equal. Cardiac: Regular rhythm. S1 and S2 are normal. PMI is nondisplaced. There there is a 2/6 murmur of mitral insufficiency and a dynamic outflow tract murmur. Carotids are brisk without bruits. JVP is less than 10 cm. Abdomen: Soft and nontender. There are no pulsatile masses or bruits. No liver enlargement. Bowel sounds are active. Extremities: Trace edema. Pulses are intact and symmetrical. Labs are pending. Angiography showed no significant coronary disease. Electronically Signed: Brandon Argueta MD January 13, 2018 3:17 PM CC: Alisia Pacheco MD CNOV Observed: 01/13/2018 Status: COMPLETED Source: [place] 3:00 PM CLINIC OTHER CAMPUS REPOSITORY Office Visit (AGCARDWST) PRISCILLA SHARPE ([id number]) 1940 F Date Time Provider Department 01/13/18 3:00 PM BRANDON ARGUETA AGCARDWST During your visit today, we recorded the following information about you: Pulse Blood pressure Weight Height 60/minute 120/70 69 kg 1.676 m Brandon Argueta MD 01/13/2018 3:34 PM Signed PERTINENT CARDIAC HISTORY PAF - cardioversion 05/18, 10/18 HCM HTN HL - declines statin MVP with mitral insufficiency - severe CHF - diastolic Long QT ADHERENCE TO GUIDELINES CIERRA-I or ARB for HF with prior LVEFANDlt;40 (NQF 0081) - N/A ASA or Plavix for ASHD (NQF 0067) - N/A Beta jhon for ASHD with prior RI or prior LVEFANDlt;40 (NQF 0070) - N/A Beta jhon for HF with prior LVEFANDlt;40 (NQF 0083) - N/A CIERRA-I or ARB for ASHD with DM or prior LVEFANDlt;40 (NQF 0066) - N/A Statin therapy for ASHD or FHL or DM - declines BMI documented and plan if ANDgt;25 (NQF 0421) - lifestyle recommendation form Tobacco use screening and referral (NQF 0028) - lifestyle recommendation form Recommendation for whole food, plant based diet - lifestyle recommendation form CLINICAL IMPRESSION/PLAN: Priscilla Sharpe is doing well. She is tolerating amiodarone. She will have TSH and ALT to monitor toxicity. Basic profile will be checked today and diuretics will be adjusted. Her volume is well-controlled at this time. She has been reminded not to ignore the onset of atrial fibrillation, as she decompensates fairly quickly. She should be getting a call from Dr. Rich's office in the near future. I've asked her to contact me if she does not. I will see her following her procedure Written and verbal health teaching given to patient, patient verbalizes understanding and agrees with treatment plan. This note was generated using [employer] voice recognition system, and there may be some incorrect words, spellings, and punctuation that were not noted in checking the note before saving. DIAGNOSIS FOR VISIT: PAF Mitral insufficiency HISTORY OF PRESENT ILLNESS Priscilla Sharpe returns for follow-up of her valvular disease, hypertrophic myopathy and atrial fibrillation. And has been determined that she is a good candidate for alcohol septal ablation. She has not yet been called about setting this up. She's had no recent palpitations. She's taking her a diuretic as recommended. She's had no chest pain, orthopnea. Her edema has improved. She's had no syncope, TIAs, amaurosis. ALLERGIES: ALLERGIES Allergen Reactions - Zyloprim [Allopurin* Rash - Tramadol Other: See Comments made patient woozy/dizzy - Environmental [Othe* Intolerance rhinitis CURRENT OUTPATIENT MEDICATIONS: warfarin (COUMADIN) 2 mg tablet Take 2 mg by mouth once daily. benzonatate (TESSALON PERLES) 100 mg capsule Take 2 capsules by mouth three times daily as needed for Cough. furosemide (LASIX) 40 mg tablet Take 1 tablet by mouth once daily. amiodarone (PACERONE) 200 mg tablet Take 1 tablet by mouth once daily. atenolol (TENORMIN) 50 mg tablet Take 0.5 tablets by mouth once daily. magnesium oxide (MAGOX) 400 mg tablet Take 1 tablet by mouth once daily. potassium chloride SR (MICRO-K) 10 mEq CR capsule Take 2 capsules by mouth twice daily. on days taking furosemide (Lasix) umeclidinium-vilanterol (ANORO ELLIPTA) 62.5-25 mcg/actuation inhaler Inhale one inhalation as instructed once daily albuterol HFA (VENTOLIN HFA) 90 mcg/actuation inhaler Inhale 2 Puffs as instructed every 4 hours as needed for Wheezing/Shortness of Breath. Cholecalciferol, Vitamin D3, 1,000 unit cap Take 1 capsule by mouth once daily. GLUCOSAM SUL NA/CHONDR WEATHERS A NA (GLUCOSAMINE ANDamp; CHONDROIT SUL.NA ORAL) Take 1 tablet by mouth once daily. aspirin 325 mg tablet Take 325 mg by mouth once daily. Benzonatate 200 mg capsule Take 200 mg by mouth three times daily as needed. PHYSICAL EXAMINATION: VITAL SIGNS: BP 120/70 Pulse 60 Ht 5' 6ANDquot; (1.68m) Wt 152 lb 3.2 oz (69.0kg) BMI 24.58 kg/(m2). Chest: Clear to percussion and auscultation. Trachea is midline. Air entry is equal. Cardiac: Regular rhythm. S1 and S2 are normal. PMI is nondisplaced. There there is a 2/6 murmur of mitral insufficiency and a dynamic outflow tract murmur. Carotids are brisk without bruits. JVP is less than 10 cm. Abdomen: Soft and nontender. There are no pulsatile masses or bruits. No liver enlargement. Bowel sounds are active. Extremities: Trace edema. Pulses are intact and symmetrical. Labs are pending. Angiography showed no significant coronary disease. Electronically Signed: Brandon Argueta MD January 13, 2018 3:17 PM CC: Alisia Pacheco MD Referring Provider: BRANDON ARGUETA [[id number]] Allergies As of Date: 01/13/2018 Noted Allergy Reaction ZYLOPRIM (ALLOPURINOL) 05/26/2017 2 - Rash TRAMADOL 03/10/2016 14 - Other: See Comments Comments: made patient woozy/dizzy environmental [Other] 12/30/2005 5 - Intolerance Comments: rhinitis Date Reviewed: 01/13/2018 Reviewed by: Liberty Gil - Fully Assessed Reason for Visit: Follow Up [171] Primary Visit Diagnosis:PAF (paroxysmal atrial fibrillation) ([facility]) [I48.0] Other Visit Diagnosis:HOCM (hypertrophic obstructive cardiomyopathy) ([facility]) [I42.1] Order(s):BASIC METABOLIC PNL [SQBMP] Order #: [id number] FUTURE ALT/SGPT [SQALT] Order #: [id number] FUTURE TSH BLD [SQTSH] Order #: [id number] FUTURE Prescriptions as of 01/13/2018 Sig: WARFARIN 2 MG TABLET Take 2 mg by mouth once daily. BENZONATATE 100 MG CAPSULE Take 2 capsules by mouth thre* FUROSEMIDE 40 MG TABLET Take 1 tablet by mouth once d* AMIODARONE 200 MG TABLET Take 1 tablet by mouth once d* ATENOLOL 50 MG TABLET Take 0.5 tablets by mouth onc* MAGNESIUM OXIDE 400 MG TABLET Take 1 tablet by mouth once d* POTASSIUM CHLORIDE ER 10 MEQ * Take 2 capsules by mouth twic* UMECLIDINIUM 62.5 MCG-VILANTE* Inhale one inhalation as inst* ALBUTEROL SULFATE HFA 90 MCG/* Inhale 2 Puffs as instructed * CHOLECALCIFEROL (VITAMIN D3) * Take 1 capsule by mouth once * GLUCOSAMINE AND CHONDROIT SUL.N* Take 1 tablet by mouth once d* ASPIRIN 325 MG TABLET Take 325 mg by mouth once kodi* BENZONATATE 200 MG CAPSULE Take 200 mg by mouth three ti* Problem List As Of Date 01/13/2018 Noted Resolved 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 IMPAIRED FASTING GLUCOSE [R73.01] INVALID FOR* Essential hypertension [I10] INVALID FOR* More... Osteoporosis [M81.0] INVALID FOR* More... Vitamin D Deficiency [E55.9] INVALID FOR* More... MR (mitral regurgitation) [I34.0] IBS (irritable bowel syndrome) [K58.9] More... 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 Follow-up and Disposition History Recorded Encounter Status:Closed by BRANDON ARGUETA MD on 01/13/18 PROGRESS Observed: 01/11/2018 Status: COMPLETED Source: [place] 4:23 PM [facility] REPOSITORY HNO ID: [id number] Author: Portia Theodore RN Service: (none) Author Type: (none) Type: Progress Notes Filed: 01/11/2018 4:24 PM Note Text: per written order by dr pacheco patient is to take 1mg Sun and 2mg all other days and recheck as scheduled PATIENT NOTIFIED OF INFORMATION PROGRESS Observed: 01/11/2018 Status: COMPLETED Source: [place] 12:05 PM [facility] REPOSITORY HNO ID: [id number] Author: Portia Theodore RN Service: (none) Author Type: (none) Type: Progress Notes Filed: 01/11/2018 12:07 PM Note Text: patient had inr completed at [facility] patients inr is 1.3 (patients inr range is 2.0-3.0) patient is currently taking 2mg Mon,Fri and 1mg all other days patients last dose change was on 01/04/18 due to a low level of 1.4 (dose at that time was 1mg daily) patient has had no changes in medication except for the coumadin and no missed doses and no change in diet Advised patient that they would be contacted regarding medication dose and when to follow up after information is reviewed by provider. After provider review please contact the patient with information and schedule follow up appointment with coumadin clinic. FYI - patient has been scheduled for a 1 week inr follow up on 01/18/18 PROGRESS Observed: 01/04/2018 Status: COMPLETED Source: [place] 3:26 PM [facility] REPOSITORY HNO ID: [id number] Author: Portia Theodore RN Service: (none) Author Type: (none) Type: Progress Notes Filed: 01/04/2018 3:27 PM Note Text: pre written order by dr talampas patient is to take 2mg Mon,Fri and 1mg all other days and recheck as scheduled PATIENT NOTIFIED OF INFORMATION PROGRESS Observed: 01/04/2018 Status: COMPLETED Source: [place] 11:47 AM [facility] REPOSITORY HNO ID: [id number] Author: Portia Theodore RN Service: (none) Author Type: (none) Type: Progress Notes Filed: 01/04/2018 11:49 AM Note Text: patient had inr completed at [facility] patients inr is 1.4 (patients inr range is 2.0-3.0) patient is currently taking 1mg daily patients last dose change was on 12/28/17 due to a high level of 4.2 (dose at that time was 2mg daily) patient has had no changes in medication except for the coumadin and no missed doses and no change in diet Advised patient that they would be contacted regarding medication dose and when to follow up after information is reviewed by provider. After provider review please contact the patient with information and schedule follow up appointment with coumadin clinic. FYI - patient has been scheduled for a 1 week inr follow up on 01/11/18 PROGRESS Observed: 12/29/2017 Status: COMPLETED Source: [place] 9:54 AM [facility] REPOSITORY HNO ID: [id number] Author: Jamie Jo Service: (none) Author Type: Physician Type: Progress Notes Filed: 12/29/2017 12:05 PM Note Text: Thoracic and Cardiovascular Surgery [facility] SURGICAL CONSULT AND INFORMED CONSENT CHART COPY DO NOT DISCARD Patient Type: New Visit to determine Surgery: Yes PCP: Alisia Pacheco MD [address] [place] [address] Referring Physician:: Rasta Hidalgo MD [address] [address] HPI: Ms. Priscilla Sharpe is a 77 year old female seen in consultation at the request of Rasta Hidalgo for an opinion regarding treatment options for Atrial Fibrillation and Hypertrophic Obstructive Cardiomyopathy after being seen and evaluated by . She is currently symptomatic with 2 bouts of atrial fibrillation that led to admissions for heart failure. The atrial fibrillation was terminated with cardioversion. She is now on amiodarone. Doing well now with mild shortness of breath with exertion. 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 She has some mild lung disease and her laboratory studies from mid December are within normal limits. I have personally reviewed her cardiac catheterization which shows normal coronary arteries. Her Echocardiogram reveals normal ventricular function with an EF of 65% and both posterior leaflet prolapse with an anterior chest and severe systolic anterior motion of the mitral valve and outflow tract obstruction. There appears to be just proximal hypertrophy measuring 20 mm in thickness. Impression: Atrial fibrillation managed with amiodarone and on anticoagulation with Coumadin. I discussed the options at length including surgery, medical therapy and alcohol ablation. The patient was reluctant to consider surgery and I have reviewed the anatomy with and he thinks it is quite favorable for consideration of alcohol ablation. Plan: We will notify the patient that we will proceed with alcohol ablation and reserve surgery for either technical challenges or inability to relieve the outflow tract obstruction. I spent more than 50% of the visit face to face counseling the patient on the plan and treatment options. The time spent counseling was 30 minutes. The total time of the face to face visit was 30 minutes. The risks, benefits and anticipated outcomes of the procedure, the risks and benefits of the alternatives to the procedure, and the roles and tasks of the personnel to be involved, were discussed with the patient, and the patient consents to the procedure and agrees to proceed. These findings will be communicated back to the requesting physician via electronic medical record Jamie Jo MD, JANET PROGRESS Observed: 12/28/2017 Status: COMPLETED Source: [place] 3:16 PM [facility] REPOSITORY HNO ID: [id number] Author: Portia Theodore RN Service: (none) Author Type: (none) Type: Progress Notes Filed: 12/28/2017 3:17 PM Note Text: per written order by dr pacheco patient is to hold today and then resume with 0.5mg Sun and 1mg all other days and recheck as scheduled PATIENT NOTIFIED OF INFORMATION PROGRESS Observed: 12/28/2017 Status: COMPLETED Source: [place] 11:06 AM [facility] REPOSITORY HNO ID: [id number] Author: Portia Theodore RN Service: (none) Author Type: (none) Type: Progress Notes Filed: 12/28/2017 11:08 AM Note Text: patient had inr completed at [facility] patients inr is 4.2 (patients inr range is 2.0-3.0) patient is currently taking 2mg daily patients last dose change was on 09/23/17 due to a high level of 3.6 (dose at that time ws 2.5mg daily) patient has had no changes to medication and no change in diet FYI - patient has only been back on coumadin for 2 weeks after holding it 10 days for a procedure Advised patient that they would be contacted regarding medication dose and when to follow up after information is reviewed by provider. After provider review please contact the patient with information and schedule follow up appointment with coumadin clinic. FYI - patient is scheduled for a 1 week follow up inr on 01/04/18 PROGRESS Observed: 12/14/2017 Status: COMPLETED Source: [place] 12:44 PM [facility] REPOSITORY HNO ID: [id number] Author: Cari Martinez Service: (none) Author Type: Physician Type: Progress Notes Filed: 12/15/2017 7:34 AM Note Text: PATIENT NAME: Priscilla Sharpe. CLINIC NO: [id number]. ATTENDING PHYSICIAN: Cari Martinez MD. DATE OF SERVICE: 12/14/2017. ?? 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 HPI: 77-year-old [place] lady who presented last summer with complaint of lower back pain secondary to spinal stenosis. She has several injection last year without any improvement. She had additional pain in her legs but more numb and pain that radiates--will see internal corrosion specialist from [facility] here in [place]. She also noted left hip pain as well.She had a follow-up MRI scan in December, which showed sclerotic bone lesions in the lumbar spine as well as left iliac bone. ?? Patient then had additional study bone scan which showed multifocal osteoblastic metastatic lesions. CT scan of abdomen and pelvis showed no adenopathy or splenomegaly but cystic lesion in the kidney and liver and a left adrenal adenoma. Cholelithiasis without evidence for acute cholecystitis. Again, metastatic lesions in the lumbar spine and pelvis. 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 Moderate atrophy and white matter ischemic changes also noted. CT-guided biopsy of the bone lesion in her left hip on 02/25/17 is consistent with a non-Hodgkin B-cell lymphoma, unclassifiable (small lymphocytic cells); CD5 negative, CD20 positive, CD23 positive, CD10 negative, BCL2 positive, but cyclin D1 negative. ?? Patient also noted a mass in her left posterior cervical triangle for over a year. She has no fever, chills or night sweats. She has no increased fatigue, or weight loss. Patient was a previous smoker but has not smoked for over 15 years. No family history of cancer, leukemia or lymphoma. Patient has no hoarseness or dysphagia. She has history of decreased hearing and positional vertigo. Her back and left hip pain is controlled with prednisone?taper?and pain medications regimen. ?? Previous Treatment: Rituxan AND?bendamustine x 6 cycles ( 04/29/17 - 10/13/17 ) ?? Interim history:?Patient is doing well. She has no fever, chills or night sweats. She denied any bone or back pain. ?No trouble breathing, chest pain?or coughing. She has no bleeding or bruising. ?Weight and appetite remain stable. The patient return after her bone marrow biopsy evaluation for residual lymphoma. She previously had a negative PET scan. Patient is scheduled for valvular AND heart surgery later this year. All medications AND allergies updated and reviewed by me. ?? CONSTITUTIONAL: No fevers, chills, nightsweats, unintended weight loss HEENT: Denies frequent or severe heaches, nasal congestion/sinus symptoms, problematic allergy problems. EYES: No diplopia or blurry vision. CARDIOVASCULAR: No chest pain, dyspnea, palpitations, orthopnea, PND, ankle edema. PULM: No dyspnea, unexplained cough. GI: No dysphagia/odynophagia, problematic reflux, constipation, diarrhea, changes in stool habits, hematochezia, melena. : No new urinary complaints, including dysuria, gross hematuria or pyuria. NEURO: No new balance problems, peripheral weakness/paresthesias or numbness of concern. MUSC-SKEL: No new joint pain, swelling, or erythema.+ Chronic lower back and left hip pain with sciatica PSY: No concerns regarding depression, anxiety or panic. INTEGUMENTARY: No new skin changes (rash, new or changing mole, new growth) ?? PHYSICAL EXAMINATION: 77-year-old well-nourished, well-developed lady in no acute distress Performance status 100% BP 116/57 Pulse 71 Temp 98 Wt 146 lb 8 oz (66.5kg) HEENT: Head is normocephalic, atraumatic. Sclerae white, conjunctivae pink. PEERL. EOMs are intact. Oropharynx is benign. LYMPHATICS: There is no?palpable cervical adenopathy, no supraclavicular region, axillae, or groin. LUNGS: Lungs are clear to percussion and auscultation. HEART: Heart is normal with grade 2/6 holosystolic?murmurs, no gallops, or rubs. ABDOMEN: Soft and nontender without organomegaly. No masses can be palpated. EXTREMITIES: Are without edema. NEUROLOGIC: Exam is physiologic ?? LABORATORY DATA: Component Latest Ref Rng AND Units 12/14/2017 WBC, [place] 3.70 - 11.00 k/uL 6.39 RBC, [place] 3.90 - 5.20 m/uL 5.05 Hemoglobin, [place] 11.5 - 15.5 g/dL 13.7 Hematocrit, [place] 36.0 - 46.0 % 41.6 MCV, [place] 80.0 - 100.0 fL 82.4 MCH, [place] 26.0 - 34.0 pg 27.1 MCHC, [place] 30.5 - 36.0 g/dL 32.9 RDW, [place] 11.5 - 15.0 % 14.9 Platelet Cnt, [place] 150 - 400 k/uL 221 MPV, [place] 9.0 - 12.7 fL 9.8 Absol Gran Count 1.45 - 7.50 k/uL 4.74 Component Latest Ref Rng AND Units 12/14/2017 Protein, Total 6.3 - 8.0 g/dL 7.0 Albumin 3.9 - 4.9 g/dL 4.1 Calcium 8.5 - 10.2 mg/dL 9.6 Bilirubin, Total 0.2 - 1.3 mg/dL 0.4 Alkaline Phosphatase 32 - 117 U/L 87 AST 13 - 35 U/L 16 Glucose 74 - 99 mg/dL 114 (H) BUN 7 - 21 mg/dL 21 Creatinine 0.58 - 0.96 mg/dL 1.09 (H) Sodium 136 - 144 mmol/L 144 Potassium 3.7 - 5.1 mmol/L 3.8 Chloride 97 - 105 mmol/L 103 CO2 22 - 30 mmol/L 27 Anion Gap 9 - 18 mmol/L 14 ALT 7 - 38 U/L 14 eGFR- 59 eGFR-All Other Races . 49 LD 135 - 214 U/L 283 (H) Bone marrow biopsy: No immunological evidence of residual lymphoma. PET / CT scan: showed no increased uptake or activity In her bones or lymph nodes; consistent with complete remission. ? 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 Small lymphocytic lymphoma) not consistent with Waldenstrom or lymphoplasmacytic lymphoma. ?The?patient is in complete remission. ?? PLAN: - No further treatment is planned at this time. Continued observation and follow-up in 6 months. - proceed with valvular heart surgery and follow with cardiology. - Continue Coumadin. - repeat CBC, CMP, LDH, immunofixation AND OV in 6 months. - No further CT scans for evaluation unless patient has recurrent disease Cari Martinez MD Cc: Dr. Brandon WHITNEYOSTER ABS GR + CBC Collected: 12/14/2017 Status: F Source: [place] 12:10 PM [facility] [place] REPOSITORY TYPE CODE TESTS RESULT OUT OF REFERENCE UNITS RANGE LAB WWBC 3.70-11.00 k/uL [place] WBC 6.39 LAB WRBC 3.90-5.20 m/uL [place] RBC 5.05 LAB WHGB 11.5-15.5 g/dL [place] Hemoglobin 13.7 LAB WHCT 36.0-46.0 % [place] Hematocrit 41.6 LAB WMCV 80.0-100.0 fL [place] MCV 82.4 LAB WMCH 26.0-34.0 pg [place] MCH 27.1 LAB WMCHC 30.5-36.0 g/dL [place] MCHC 32.9 LAB WRDW 11.5-15.0 % [place] RDW 14.9 LAB WPLT 150-400 k/uL [place] Platelet Cnt 221 LAB WMPV 9.0-12.7 fL [place] MPV 9.8 Result Comment: Test performed at: [facility] [place], [address] [place] [address]. LAB ABGRAN 1.45-7.50 k/uL Absol Gran 4.74 Count COMP METABOLIC PANEL Collected: 12/14/2017 Status: F Source: [place] 12:10 PM [facility] REPOSITORY TYPE CODE TESTS RESULT OUT OF REFERENCE UNITS RANGE LAB TP 6.3-8.0 g/dL Protein, Total 7.0 LAB ALB 3.9-4.9 g/dL Albumin 4.1 LAB CA 8.5-10.2 mg/dL Calcium, Total 9.6 LAB TBIL 0.2-1.3 mg/dL Bilirubin, Total 0.4 LAB ALKP 32-117 U/L Alkaline Phosphatase 87 LAB AST 13-35 U/L AST 16 LAB GLU 74-99 mg/dL Glucose High 114 Result Comment: The [place] Diabetes Association (ADA) provides guidance for cutoff values for fasting glucose and random glucose. The ADA defines fasting as no caloric intake for at least 8 hours. Fas ting plasma glucose results between 100 to 125 mg/dL indicate increased risk for diabetes (prediabetes). Fasting plasma glucose results greater than or equal to 126 mg/dL meet the criteria for diagnosis of diabetes. In the absence of unequivocal hyperglycemia, results should be confirmed by repeat testing. In a patient with classic symptoms of hyperglycemia or hyperglycemic crisis, random plasma glucose results greater than or equal to 200 mg/dL meet the criteria for diagnosis of diabetes. Reference: Standards of Medical Care in Diabetes 2016, [place] [employer] Association. Diabetes Care. 2016.39(Suppl 1). LAB BUN 7-21 mg/dL BUN 21 LAB CRET 0.58-0.96 mg/dL Creatinine High 1.09 LAB NA 136-144 mmol/L Sodium 144 LAB K 3.7-5.1 mmol/L Potassium 3.8 LAB CL 97-105 mmol/L Chloride 103 LAB CO2 22-30 mmol/L CO2 27 LAB AGAP 9-18 mmol/L Anion Gap 14 LAB ALT 7-38 U/L ALT 14 LAB GFRAA eGFR- Amer. 59 LAB GFRNAA . eGFR-All Other Races 49 Result Comment: eGFR (Estimated GFR) Units of measure: mL/min/1.73 meters squared eGFR is derived from the reexpressed MDRD Study equation using the following parameters: serum creatinine, age, gender and race. The creatinine assay has been calibrated to be traceable to IDMS. An eGFR <60 mL/min/1.73m2 for >3 months is consistent with chronic kidney disease. Refer to KDOQI guidelines for clinical interpretation. In patients with unstable renal function, e.g. those with acute kidney injury, the eGFR may not accurately reflect actual GFR. Performed By: #### CMP, LD6, MPASRM #### [facility] [address] [place], [place] [address] LD Collected: 12/14/2017 Status: F Source: [facility] 12:10 PM [facility] REPOSITORY TYPE CODE TESTS RESULT OUT OF RANGE REFERENCE UNITS LAB LD 135-214 U/L High LD 283 Performed By: #### CMP, LD6, MPASRM #### [facility] [address] [address] [place], [place] [address] MONOCLONL PROTEIN,BL Collected: 12/14/2017 Status: F Source: [place] 12:10 [facility] REPOSITORY TYPE CODE TESTS RESULT OUT OF REFERENCE UNITS RANGE LAB MPAIGG 717-1411 mg/dL MPA Serum 730 IgG LAB MPAIGA 78-391 mg/dL Low 51 MPA Serum IgA LAB MPAIGM 53-334 mg/dL Low 19 MPA Serum IgM LAB MPAK 534-1267 mg/dL Serum 628 [place] [facility] MPAL 253-653 mg/dL Serum 294 [facility] MPAKL 1-3 MPA 2.14 Katerin/Mckeon Ratio LAB MPAR No M protein is identified. No MPA M protein is Result identified. LAB MPASTF Staff Reviewed by Review Prashant Moctezuma MD. ([id number]) Performed By: #### CMP, LD6, MPASRM #### [facility] [address] [place], [place] [address] CNOVSP Observed: 12/14/2017 Status: COMPLETED Source: [place] 12:10 [facility] REPOSITORY Visit (SP) Office (HEMAWS) PRISCILLA SHARPE ([id number]) 1940 F Date Time Provider Department 12/14/17 12:10 PM CARI MARTINEZ During your visit today, we recorded the following information about you: Temperature Pulse Blood pressure Weight 98 degrees 71/minute 116/57 66.5 kg Marleny Fontana LPN 12/14/2017 12:32 PM Signed Est patient. Discuss recent labs and BMBX. Marleny Martinez MD 12/14/2017 12:41 PM Signed Continue Coumadin and follow with cardiology Cari Martinez MD 12/15/2017 7:34 AM Signed PATIENT NAME: Priscilla Sharpe. CLINIC NO: [id number]. ATTENDING PHYSICIAN: Cari Martinez MD. DATE OF SERVICE: 12/14/2017. ?? 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 HPI: 77-year-old [place] lady who presented last summer with complaint of lower back pain secondary to spinal stenosis. She has several injection last year without any improvement. She had additional pain in her legs but more numb and pain that radiates--will see internal corrosion specialist from [facility] here in [place]. She also noted left hip pain as well.She had a follow-up MRI scan in December, which showed sclerotic bone lesions in the lumbar spine as well as left iliac bone. ?? Patient then had additional study bone scan which showed multifocal osteoblastic metastatic lesions. CT scan of abdomen and pelvis showed no adenopathy or splenomegaly but cystic lesion in the kidney and liver and a left adrenal adenoma. Cholelithiasis without evidence for acute cholecystitis. Again, metastatic lesions in the lumbar spine and pelvis. 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 Moderate atrophy and white matter ischemic changes also noted. CT-guided biopsy of the bone lesion in her left hip on 02/25/17 is consistent with a non-Hodgkin B-cell lymphoma, unclassifiable (small lymphocytic cells); CD5 negative, CD20 positive, CD23 positive, CD10 negative, BCL2 positive, but cyclin D1 negative. ?? Patient also noted a mass in her left posterior cervical triangle for over a year. She has no fever, chills or night sweats. She has no increased fatigue, or weight loss. Patient was a previous smoker but has not smoked for over 15 years. No family history of cancer, leukemia or lymphoma. Patient has no hoarseness or dysphagia. She has history of decreased hearing and positional vertigo. Her back and left hip pain is controlled with prednisone?taper?and pain medications regimen. ?? Previous Treatment: Rituxan ANDamp;?bendamustine x 6 cycles ( 04/29/17 - 10/13/17 ) ?? Interim history:?Patient is doing well. She has no fever, chills or night sweats. She denied any bone or back pain. ?No trouble breathing, chest pain?or coughing. She has no bleeding or bruising. ?Weight and appetite remain stable. The patient return after her bone marrow biopsy evaluation for residual lymphoma. She previously had a negative PET scan. Patient is scheduled for valvular ANDamp; heart surgery later this year. All medications ANDamp; allergies updated and reviewed by me. ?? CONSTITUTIONAL: No fevers, chills, nightsweats, unintended weight loss HEENT: Denies frequent or severe heaches, nasal congestion/sinus symptoms, problematic allergy problems. EYES: No diplopia or blurry vision. CARDIOVASCULAR: No chest pain, dyspnea, palpitations, orthopnea, PND, ankle edema. PULM: No dyspnea, unexplained cough. GI: No dysphagia/odynophagia, problematic reflux, constipation, diarrhea, changes in stool habits, hematochezia, melena. : No new urinary complaints, including dysuria, gross hematuria or pyuria. NEURO: No new balance problems, peripheral weakness/paresthesias or numbness of concern. MUSC-SKEL: No new joint pain, swelling, or erythema.+ Chronic lower back and left hip pain with sciatica PSY: No concerns regarding depression, anxiety or panic. INTEGUMENTARY: No new skin changes (rash, new or changing mole, new growth) ?? PHYSICAL EXAMINATION: 77-year-old well-nourished, well-developed lady in no acute distress Performance status 100% BP 116/57 Pulse 71 Temp 98 Wt 146 lb 8 oz (66.5kg) HEENT: Head is normocephalic, atraumatic. Sclerae white, conjunctivae pink. PEERL. EOMs are intact. Oropharynx is benign. LYMPHATICS: There is no?palpable cervical adenopathy, no supraclavicular region, axillae, or groin. LUNGS: Lungs are clear to percussion and auscultation. HEART: Heart is normal with grade 2/6 holosystolic?murmurs, no gallops, or rubs. ABDOMEN: Soft and nontender without organomegaly. No masses can be palpated. EXTREMITIES: Are without edema. NEUROLOGIC: Exam is physiologic ?? LABORATORY DATA: Component Latest Ref Rng ANDamp; Units 12/14/2017 WBC, [place] 3.70 - 11.00 k/uL 6.39 RBC, [place] 3.90 - 5.20 m/uL 5.05 Hemoglobin, [place] 11.5 - 15.5 g/dL 13.7 Hematocrit, [place] 36.0 - 46.0 % 41.6 MCV, [place] 80.0 - 100.0 fL 82.4 MCH, [place] 26.0 - 34.0 pg 27.1 MCHC, [place] 30.5 - 36.0 g/dL 32.9 RDW, [place] 11.5 - 15.0 % 14.9 Platelet Cnt, [place] 150 - 400 k/uL 221 MPV, [place] 9.0 - 12.7 fL 9.8 Absol Gran Count 1.45 - 7.50 k/uL 4.74 Component Latest Ref Rng ANDamp; Units 12/14/2017 Protein, Total 6.3 - 8.0 g/dL 7.0 Albumin 3.9 - 4.9 g/dL 4.1 Calcium 8.5 - 10.2 mg/dL 9.6 Bilirubin, Total 0.2 - 1.3 mg/dL 0.4 Alkaline Phosphatase 32 - 117 U/L 87 AST 13 - 35 U/L 16 Glucose 74 - 99 mg/dL 114 (H) BUN 7 - 21 mg/dL 21 Creatinine 0.58 - 0.96 mg/dL 1.09 (H) Sodium 136 - 144 mmol/L 144 Potassium 3.7 - 5.1 mmol/L 3.8 Chloride 97 - 105 mmol/L 103 CO2 22 - 30 mmol/L 27 Anion Gap 9 - 18 mmol/L 14 ALT 7 - 38 U/L 14 eGFR- 59 eGFR-All Other Races . 49 LD 135 - 214 U/L 283 (H) Bone marrow biopsy: No immunological evidence of residual lymphoma. PET / CT scan: showed no increased uptake or activity In her bones or lymph nodes; consistent with complete remission. ? 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 Small lymphocytic lymphoma) not consistent with Waldenstrom or lymphoplasmacytic lymphoma. ?The?patient is in complete remission. ?? PLAN: - No further treatment is planned at this time. Continued observation and follow-up in 6 months. - proceed with valvular heart surgery and follow with cardiology. - Continue Coumadin. - repeat CBC, CMP, LDH, immunofixation ANDamp; OV in 6 months. - No further CT scans for evaluation unless patient has recurrent disease Cari Martinez MD Cc: Dr. Brandon Argueta Referring Provider: CARI MARTINEZ [[id number]] Allergies As of Date: 12/14/2017 Noted Allergy Reaction ZYLOPRIM (ALLOPURINOL) 05/26/2017 2 - Rash TRAMADOL 03/10/2016 14 - Other: See Comments Comments: made patient woozy/dizzy environmental [Other] 12/30/2005 5 - Intolerance Comments: rhinitis Date Reviewed: 12/14/2017 Reviewed by: Marleny Fontana LPN - Fully Assessed Reason for Visit: Established Patient [175] Primary Visit Diagnosis: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] Other Visit Diagnosis:Bone metastases (HCC) [C79.51] Level of Service: EST PATIENT VISIT LEVEL 3 [[id number]] Disposition: Return in about 6 months (around 06/13/2018). Follow-up and Disposition History Recorded Prescriptions as of 12/14/2017 Sig: WARFARIN 2 MG TABLET Take 2 mg by mouth once daily. DOXYCYCLINE HYCLATE 100 MG TA* Take 1 tablet by mouth twice * BENZONATATE 100 MG CAPSULE Take 2 capsules by mouth thre* FUROSEMIDE 40 MG TABLET Take 1 tablet by mouth once d* AMIODARONE 200 MG TABLET Take 1 tablet by mouth once d* ATENOLOL 50 MG TABLET Take 0.5 tablets by mouth onc* MAGNESIUM OXIDE 400 MG TABLET Take 1 tablet by mouth once d* POTASSIUM CHLORIDE ER 10 MEQ * Take 2 capsules by mouth twic* UMECLIDINIUM 62.5 MCG-VILANTE* Inhale one inhalation as inst* ALBUTEROL SULFATE HFA 90 MCG/* Inhale 2 Puffs as instructed * CHOLECALCIFEROL (VITAMIN D3) * Take 1 capsule by mouth once * GLUCOSAMINE AND CHONDROIT SUL.N* Take 1 tablet by mouth once d* ASPIRIN 325 MG TABLET Take 325 mg by mouth once kodi* BENZONATATE 200 MG CAPSULE Take 200 mg by mouth three ti* Medication notes this encounter WARFARIN 2 MG TABLET >> Marleny Fontana LPN 12/14/2017 12:24 PM >> MARLENY FONTANA LPN Dec 14, 2017 12:24 PM Received from: [facility] Received Sig: [email or web address] ASPIRIN 325 MG TABLET >> Marleny Fontana LPN 12/14/2017 12:21 PM >> MARLENY FONTANA LPN Dec 14, 2017 12:21 PM discontinued BENZONATATE 200 MG CAPSULE >> Malreny Fontana LPN 12/14/2017 12:23 PM >> MARLENY FONTANA LPN Dec 14, 2017 12:23 PM duplicate Problem List As Of Date 12/14/2017 Noted Resolved 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 IMPAIRED FASTING GLUCOSE [R73.01] INVALID FOR* Essential hypertension [I10] INVALID FOR* More... Osteoporosis [M81.0] INVALID FOR* More... Vitamin D Deficiency [E55.9] INVALID FOR* More... MR (mitral regurgitation) [I34.0] IBS (irritable bowel syndrome) [K58.9] More... 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 Other instructions from your clinician: Continue Coumadin and follow with cardiology Visit Notes: >> Marleny Fontana LPN Mon Dec 14, 2017 12:19 PM Status: Signed Est patient. Discuss recent labs and BMBX. Marleny Fontana WENDI Encounter Status:Closed by CARI MARTINEZ MD on 12/15/17 XR CHEST 2V FRONTAL/LAT Observed: 12/06/2017 Status: F Source: [place] 2:16 PM [facility] REPOSITORY * * *Final Report* * * DATE OF EXAM: Dec 06 2017 2:16PM WOX [id number] - XR CHEST 2V FRONTAL/LAT / PROCEDURE REASON: Cough * * * * Physician Interpretation * * * * XR CHEST 2V FRONTAL/LAT 12/06/2017 2:16 PM INDICATION: Cough 77 years / Female Result: The heart size is normal. The lung jasmine are clear of infiltrate. The costophrenic angles are clear. There is flattening of hemidiaphragms. Degenerative spine changes. No significant change in heart or lung findings compared to study 01/18/2017 IMPRESSION: Flattening of the diaphragms No acute infiltrate or effusion Medical Billing Specialist: PSCB Transcribe Date/Time: Dec 06 2017 2:21P Dictated by : SONIYA LOPEZ MD This examination was interpreted and the report reviewed and electronically signed by: SONIYA LOPEZ MD on Dec 06 2017 2:21PM EST [id number] Observed: 12/06/2017 Status: COMPLETED Source: [place] 2:04 PM [facility] REPOSITORY HNO ID: [id number] Author: Gia Winn (Rt) Sarahi Haque Service: (none) Author Type: Slate Cutter Operator Type: Progress Notes Filed: 12/06/2017 2:10 PM Note Text: Radiology Service Progress Note PATIENT NAME: Priscilla Sharpe DATE OF SERVICE: December 06, 2017 TIME: 2:04 PM PATIENT IDENTITY VERIFICATION COMPLETED USING TWO (2) METHODS: Patient confirmed name verbally and Date of . PATIENT GENDER DATA: Female. status: : No status: NO. PATIENT RELEVANT IMPLANT DATA REVIEWED: Not Applicable RADIOLOGY DEPARTMENT: General X-ray: Exam(s) Completed: Chest X-Ray PERIPHERAL IV DATA: Not applicable SIGNED BY: RT Cathie December 06, 2017 2:04 PM PROGRESS Observed: 12/06/2017 Status: COMPLETED Source: [place] 1:47 PM [facility] REPOSIT[facility] HNO ID: [id number] Author: Zhou Jenkins) Eduarda Service: (none) Author Type: Physician Financial Operations Analyst Type: Progress Notes Filed: 12/06/2017 2:44 PM Note Text: HPI Pt presents with cough x 2 days. She is a former smoker but quit 16 years ago. She states she has a leaky valve as well and is having that fixed in a couple weeks. She has chronic SOB from that. No fever. She did get a flu shot. She denies body aches and chills. She formerly has lymphoma but is in remission. No CP. No leg swelling or pain. Review of Systems Constitutional: Negative. HENT: Negative. Eyes: Negative. Respiratory: Positive for cough. Negative for sputum production and wheezing. Cardiovascular: Negative. Gastrointestinal: Negative. Genitourinary: Negative. Musculoskeletal: Negative. Skin: Negative. All other systems reviewed and are negative. 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 Monson follows for benign tumor removed 2002 - Unspecified essential hypertension 10/06/2008 Current Outpatient Prescriptions: furosemide (LASIX) 40 mg tablet Take 1 tablet by mouth once daily. Disp: 30 tablet Rfl: 11 aspirin 325 mg tablet Take 325 mg by mouth once daily. Disp: Rfl: amiodarone (PACERONE) 200 mg tablet Take 1 tablet by mouth once daily. Disp: 90 tablet Rfl: 2 atenolol (TENORMIN) 50 mg tablet Take 0.5 tablets by mouth once daily. Disp: 90 tablet Rfl: 3 magnesium oxide (MAGOX) 400 mg tablet Take 1 tablet by mouth once daily. Disp: 30 tablet Rfl: 5 potassium chloride SR (MICRO-K) 10 mEq CR capsule Take 2 capsules by mouth twice daily. on days taking furosemide (Lasix) Disp: 120 capsule Rfl: 5 umeclidinium-vilanterol (ANORO ELLIPTA) 62.5-25 mcg/actuation inhaler Inhale one inhalation as instructed once daily Disp: 60 Each Rfl: 5 Benzonatate 200 mg capsule Take 200 mg by mouth three times daily as needed. Disp: 21 capsule Rfl: 0 albuterol HFA (VENTOLIN HFA) 90 mcg/actuation inhaler Inhale 2 Puffs as instructed every 4 hours as needed for Wheezing/Shortness of Breath. Disp: 1 Inhaler Rfl: 0 Cholecalciferol, Vitamin D3, 1,000 unit cap Take 1 capsule by mouth once daily. Disp: Rfl: 0 GLUCOSAM SUL NA/CHONDR WEATHERS A NA (GLUCOSAMINE AND CHONDROIT SUL.NA ORAL) Take 1 tablet by mouth once daily. Disp: Rfl: doxycycline (VIBRA-TABS) 100 mg tablet Take 1 tablet by mouth twice daily for 10 days. Disp: 20 tablet Rfl: 0 benzonatate (TESSALON PERLES) 100 mg capsule Take 2 capsules by mouth three times daily as needed for Cough. Disp: 20 capsule Rfl: 0 No current facility-administered medications for this visit. PAST SURGICAL HISTORY Procedure Laterality Date - PAST SURGICAL HISTORY OF 2004 tumor removed from bladder FAMILY HISTORY Problem Relation Age of Onset - None Father - None Mother Social History Substance Use Topics - Smoking status: Former Smoker Packs/day: 1.00 Years: 58.00 Types: Cigarettes Start date: 1956 Quit date: 07/02/2013 - Smokeless tobacco: Never Used Comment: No smoking in childhood home. Spouse quit smoking years before patient did. - Alcohol use Yes Comment: monthly BP 100/60 Pulse 63 Temp 36.9 ?C (98.5 ?F) (Tympanic) Resp 22 Wt 65.8 kg (145 lb) SpO2 93% BMI 23.4 kg/m2 Physical Exam Constitutional: She is oriented to person, place, and time and well-developed, well-nourished, and in no distress. HENT: Head: Normocephalic and atraumatic. Right Ear: External ear normal. Left Ear: External ear normal. Nose: Nose normal. Mouth/Throat: Oropharynx is clear and moist. Eyes: Conjunctivae are normal. Pupils are equal, round, and reactive to light. Neck: Normal range of motion. Neck supple. Cardiovascular: Normal rate and regular rhythm. Murmur heard. Pulmonary/Chest: Effort normal and breath sounds normal. No respiratory distress. She has no wheezes. Harsh cough noted Lymphadenopathy: She has no cervical adenopathy. Neurological: She is alert and oriented to person, place, and time. Skin: Skin is warm and dry. No rash noted. No erythema. Psychiatric: Affect normal. Nursing note and vitals reviewed. ASSESSMENT/PLAN: 1. Cough - ICD9: 786.2, ICD10: R05 (primary diagnosis) - Pt cxr here shows no infiltrate, no acute findings. She states she normally has O2 sats in the 93-94% range and today is 93%. No wheezing, her lungs are clear. I do feel she has bronchitis. I will start her on tessalon and doxycycline. No influenza like symptoms today. Discussed with patient concerning symptoms to go to the emergency department or follow up here. Pt agreeable with this plan. - XR CHEST 2V FRONTAL/LAT 2. Acute bronchitis, unspecified organism - ICD9: 466.0, ICD10: J20.9 Zhou Camacho PA-C NURSING PROG Observed: 12/02/2017 Status: COMPLETED Source: [place] 1:58 PM [facility] REPOSITORY HNO ID: [id number] Author: Ramsey Samaniego RN Service: (none) Author Type: Registered Nurse Type: Nursing Progress Note Filed: 12/02/2017 2:01 PM Note Text: Patient did not experience a fall prior to discharge. Patient did not experience a burn prior to discharge. Ramsey Samaniego RN NURSING PROG Observed: 12/02/2017 Status: COMPLETED Source: [place] 1:40 PM [facility] REPOSITORY HNO ID: [id number] Author: Ramsey Samaniego RN Service: (none) Author Type: Registered Nurse Type: Nursing Progress Note Filed: 12/02/2017 1:52 PM Note Text: Left iliac crest drsg coming off. New drsg applied. No drng noted. Ramsey Samaniego RN NURSING PROG Observed: 12/02/2017 Status: COMPLETED Source: [place] 1:25 PM [facility] REPOSITORY HNO ID: [id number] Author: Ramsey Samaniego RN Service: (none) Author Type: Registered Nurse Type: Nursing Progress Note Filed: 12/02/2017 1:27 PM Note Text: Sitting up in bed taking snack and drink. Denies pain or nausea. Drsg on left iliac crest remains dry and intact. Dr. Martinez was by earlier and gave instructions for pt to discontinue Warfarin and start a 325 mg ASA daily. Instructions for this written on pt's discharge instructions. Ramsey Samaniego RN PT ED Observed: 12/02/2017 Status: COMPLETED Source: [place] 1:12 PM [facility] REPOSITORY HNO ID: [id number] Author: Ramsey Samaniego RN Service: (none) Author Type: Registered Nurse Type: Patient Education Filed: 12/02/2017 1:14 PM Note Text: POST OP LEARNING RESPONSE INSTRUCTION PROVIDED TO: Patient and friend/other METHOD OF INSTRUCTION: Individual instruction Written instruction - handouts Verbal instruction PATIENT / FAMILY RESPONSE: Verbalizes understanding of: INFECTION MANAGEMENT-Signs and symptoms of an infection and importance of contacting the physician MEDICAL REGIMEN-Importance of following prescribed medical regimen PAIN MANAGEMENT-Effective strategies to manage pain in addition to pain medication PHYSICAL RESTRICTIONS-Physical restrictions and recommendations after discharge from the hospital POST-PROCEDURE INSTRUCTIONS-Correct actions to take to reduce post procedure complications WORSENING CONDITION-Signs and symptoms of a worsening condition that warrant a call to the physician WOUND CARE-Correct procedure to perform wound care FOLLOW-UP PLAN: Follow up phone call. Contact information given. Office appt with Dr. Martinez SUPPLEMENTAL MATERIAL: Procedure discharge instructions REFERRAL (RECOMMENDATION): None Electronically Signed By: Ramsey Samaniego RN In Department: AMBULATORY SURGERY NURSING PROG Observed: 12/02/2017 Status: COMPLETED Source: [place] 12:54 PM [facility] REPOSITORY HNO ID: [id number] Author: Latisha Willis RN Service: Nursing Author Type: Registered Nurse Type: Nursing Progress Note Filed: 12/02/2017 12:54 PM Note Text: Patient did not experience a fall within the Intraoperative area. Patient did not experience a burn within the Intraoperative area. Latisha Willis RN OPERATIVE NO Observed: 12/02/2017 Status: COMPLETED Source: [place] 12:53 PM [facility] REPOSITORY HNO ID: [id number] Author: Cari Martinez Service: Hematology/Oncology Author Type: Physician Type: Operative Report Filed: 12/02/2017 12:56 PM Note Text: Bone Marrow Aspirate and Biopsy Procedure: Priscilla Sharpe is a 77 year old female with B cell lymphoma who returns for bone marrow evaluation. Information was reviewed verbally, form(s) have been/will be consent was obtained. Rationale, procedure, personnel and risks were explained. Premedication with Versed 4mg mg and Fentanyl 50 mcg IV were given. Patient placed in right lateral decubitus position. left posterior iliac crest was swabbed with betadine and then with alcohol. 1% lidocaine, 10 cc, was infiltrated to the posterior iliac crest in a sterile field. Bone marrow aspirate and biopsy was obtained under sterile techniques. Patient tolerated the procedure well with no complications. Aspirate smears and touch preps were made. Flow cytometry was ordered. Patient will return for follow up results. Start Time 12:46 End Time 12:53 E.B.L. 4 cc Specimen: left posterior iliac crest Bone marrow Cari Martinez MD NURSING PROG Observed: 12/02/2017 Status: COMPLETED Source: [place] 12:35 PM [facility] REPOSITORY HNO ID: [id number] Author: Ramsey (Rn) BHARATH Samaniego Service: (none) Author Type: Registered Nurse Type: Nursing Progress Note Filed: 12/02/2017 1:11 PM Note Text: [facility] PRE-OP NURSING HAND OFF NOTE SBAR Hand off given to Latisha Willis RN. Hand off was communicated verbally and at the patient's bedside and all questions were answered. FALLS/VEE Patient did not experience a fall within the Preoperative area. Patient did not experience a burn within the Preoperative area. Ramsey Samaniego RN MISCELLANEOUS LAB Collected: 12/02/2017 Status: F Source: [facility] PROCEDURE 12:30 PM [facility] REPOSITORY Order Comment: Comments: [id number] Test(s) Ordered: Flow [id number] TYPE CODE TESTS RESULT OUT OF RANGE REFERENCE UNITS LAB L801.1541 Normal [facility] [place] [facility] LAB FLOW SEE PATH TEST Performed By: #### L801.1541 #### [facility] [address] [place], [address] PT ED Observed: 12/02/2017 Status: COMPLETED Source: [place] 12:10 PM [facility] REPOSITORY HNO ID: [id number] Author: Ramsey (Rn) Aden RN Service: (none) Author Type: Registered Nurse Type: Patient Education Filed: 12/02/2017 12:11 PM Note Text: PRE OP LEARNING ASSESSMENT PROCEDURE/SURGERY: GI PROCEDURES: bone marrow biopsy READINESS TO LEARN COGNITIVE ABILITY: Alert and oriented MOTIVATION TO LEARN: Eager FAMILY SUPPORT: Unable to assess - Family not present PATIENT LEARNS BEST BY: Multiple Methods FACTORS AFFECTING LEARNING: None PHYSICAL LIMITATIONS AFFECTING LEARNING: None Electronically Signed By: Ramsey Samaniego RN In Department: AMBULATORY SURGERY [place] CBC AND DIFF Collected: 12/02/2017 Status: F Source: [place] 12:10 PM [facility] REPOSITORY TYPE CODE TESTS RESULT OUT OF REFERENCE UNITS RANGE LAB WWBC 3.70-11.00 k/uL [place] WBC 4.21 LAB WRBC 3.90-5.20 m/uL [place] RBC 4.68 LAB WHGB 11.5-15.5 g/dL [place] Hemoglobin 12.8 LAB WHCT 36.0-46.0 % [place] Hematocrit 39.1 LAB WMCV 80.0-100.0 fL [place] MCV 83.5 LAB WMCH 26.0-34.0 pg [place] MCH 27.4 LAB WMCHC 30.5-36.0 g/dL [place] MCHC 32.7 LAB WRDW 11.5-15.0 % [place] RDW 15.0 LAB WPLT 150-400 k/uL Low [place] Platelet Cnt 128 LAB WMPV 9.0-12.7 fL [place] MPV 10.2 Result Comment: Test performed at: [place] [facility], [address] [place] [address]. LAB WNEUT % [place] Neut% 57.1 LAB WLYMP % [place] Lymp% 18.1 LAB WMONOC % [place]% 20.7 LAB WEOS % [place] Eos% 3.1 LAB WBASO % [place] Baso% 1.0 LAB WANEUT 1.45-7.5 k/uL 0 [place] Abs Neut 2.41 LAB WALYMP 1.00-4.0 k/uL Low 0 [place] Abs Lymp 0.76 LAB WAMONO <0.87 k/uL High [place] Abs [place] 0.87 LAB WAEOS <0.46 k/uL [place] Abs Eos 0.13 LAB WABASO <0.11 k/uL [place] Abs Baso 0.04 BONE MARROW BIOPSY Observed: 12/02/2017 Status: F Source: [place] 12:00 AM [facility] REPOSITORY Patient: PRISCILLA SHARPE : 1940 (77/F) Acct Num: [id number] Phys: Jasvir FORTUNE,[place] Unit Num: [id number] Loc: LABSPEC Specimen: [id number] Received: 12/02/171531 Spec Type: BMB TISSUES TISSUES: A. Bone marrow, NOS B. Bone marrow, NOS C. Bone marrow, NOS BONE MARROW GROSS A - Received is a container labeled with the patient's name and designated left hip. The specimen consists of a piece of baer bone measuring 0.8 cm in length and 0.2 cm in diameter. The specimen is totally submitted in one cassette after decalcification. B - Received labeled with the patient's name and designated left hip is a specimen that consists of approximately 15 cc of bloody fluid that on filtration yields multiple minute fragments of blood clots measuring in aggregate 0.5 x 0.5 x 0.1 cm. The specimen is totally submitted in one cassette. C - Also received are 6 unstained and 2 peripheral stained slides. The unstained slides are submitted for appropriate staining. Also received is one green top tube which is sent to our reference lab for flow cytometry. / SJ:everardo 12/03/17 TC:5 CPT: 69792, 13565, 40025 x2, 30217 x3, 16887 BONE MARROW STUDY Slides are reviewed. CBC DATE: 12/02/17 WBC 4.21; RBC 4.68; HGB 12.8; HCT 39.1; MCV 83.5; RDW 15.0; PLTS 128,000 SEGS 57.1%; LYMPHS 18.1%; MONOS 20.7%; EOS 3.1%; BASOS 1.0% PERIPHERAL SMEAR: Submitted. RBC: Normocytic and normochromic. WBC: Relative monocytosis. The WBC count is compatible to as reported above. PLTS: Mildly decreased. BONE MARROW ASPIRATE DIFFERENTIAL: 200 cell count. Blasts % (normal 0-2): 0 Promyelocytes % (normal 1-5): 2 Myelocytes and metamyelocytes % (normal 17-41): 30 Bands and Segs % (normal 15-32): 29 Eos % (normal 1-6): 5 Basos % (normal 0-1): 1 Monocytes % (normal 0-4): 0 Erythroid Precursors % (normal 17-35): 23 Lymphocytes % (normal 7-13): 10 Plasma Cells % (normal 0-2): 0 ASPIRATE FINDINGS: Site: Not specified Spicular, Cellular M/E ratio: 2.9 (Normal 1.5-4.0) Megakaryocytes: Present and normal morphology. Erythropoiesis: Normoblastic. Granulopoiesis: Progressive and unremarkable. Comment: Significant increase of lymphocytes are not seen. CORE BIOPSY FINDINGS: Site: Not specified Adequacy: Adequate Cellularity: 50% M/E ratio: Within normal limits. Megakaryocytes: Present and adequate in number. Bony trabeculae: Unremarkable. Granulomas: Absent. Lymphoid aggregate: Absent. Atypical infiltrate: Absent. ASPIRATE CLOT FINDINGS: Site: Not specified Marrow particles: Numerous Cellularity: 50% M/E ratio: Within normal limits. Megakaryocytes: Present and adequate in number. Granulomas: Absent. Lymphoid aggregates: Absent. Atypical infiltrates: Absent. SPECIAL STAINS WITH MATCHED CONTROLS: Iron: 1+, atypical or ring sideroblasts are not seen. Reticulin: Focal mild increase of reticulin fibers are noted in the core biopsy. PAS: Highlights myeloid cells and megakaryocytes. COMMENT Please make reference to previous specimen ([id number]) right hip bone marrow core and clot with diagnosis of involvement by non-Hodgkin B-cell lymphoma, unclassifiable. Case has been reviewed in consultation with Dr. Villanueva who concurs with the above diagnosis. IDC:AM BONE MARROW DIAGNOSIS Bone marrow core, clot and aspirate smears: Normocellular marrow, negative for involvement by lymphoma. Iron 1+, atypical or ring sideroblasts are not seen. Peripheral smear mild thrombocytopenia. Flow cytometry study from [facility] shows no significant immunophenotypic abnormality detected. SJ:everardo 12/09/17 HEADER OPERATION: Bone marrow aspiration and biopsy, left hip PRE-OP DIAGNOSIS: B-cell lymphoma TISSUE SUBMITTED: A Bone marrow aspiration and biopsy core, B Bone marrow biopsy clot, aspiration, C Bone marrow biopsy smears, 6 slides, 2 stained slides, and send out (flow) Signed Beck Ramsey 12/09/17 <signature on file> Performed By: #### PBMB #### [facility] [address] [place], [address] PROTIME W/INR Collected: 11/30/2017 Status: F Source: [place] 9:40 AM [facility] REPOSITORY TYPE CODE TESTS RESULT OUT OF RANGE REFERENCE UNITS LAB L9200.1001 11.9-14.4 SEC Normal PROTIME ISTAT 13.9 Result Comment: Reference Range 11.9 - 14.4 LAB L9200.2000 Normal INR ISTAT 1.20 Result Comment: Critical Value > 3.5 Performed By: #### [id number] #### [facility] Point of Care [address] [place], [place] [id number] PROGRESS Observed: 11/27/2017 Status: COMPLETED Source: [place] 11:48 AM [facility] REPOSITORY O ID: [id number] Author: Gilberto Ramos MD Service: (none) Author Type: Physician Type: Progress Notes Filed: 11/27/2017 1:45 PM Note Text: [facility] [place] [facility] Department of Cardiovascular Medicine SECTION OF CARDIAC PACING and ELECTROPHYSIOLOGY OUTPATIENT VISIT DATE November 27, 2017 OUTPATIENT VISIT TYPE ESTABLISHED PRIMARY CARE PHYSICIAN: Alisia Pacheco MD [address] [place] [address] CHIEF COMPLAINT: Recurrent AF, HCM, asx conduction system disease HISTORY OF PRESENT ILLNESS: Ms. Sharpe is a 77 year old female who presents today for follow-up visit. in the interim, she initiated amiodarone and has seemingly tolerated it describing no limiting side effects. In addition she is maintained sinus rhythm, and has been free of symptoms of decompensated heart failure. She denies chest pain, shortness of breath, orthopnea, cough, edema, palpitations, PND, lightheadedness or syncope. NURSING INTAKE HISTORY: Ms. hSarpe is a 77 year old female who presents today for hospital follow up for atrial fibrillation. She has a history of small cell lymphoma (treated with chemotherapy, with seemingly good suppression; currently in remission), hypertrophic cardiomyopathy (severe septal hypertrophy,GUI, 4+ mitral regurgitation), preserved LV systolic function, baseline QTC which is prolonged (500 ms), evidence of AV conduction system disease with prolonged ND interval (330 ms) -- and 2 episodes of atrial fibrillation (May and October 2017), both of which she was highly symptomatic with symptoms of congestive heart failure, and prompted cardioversion. She was placed on Amiodarone 11/06/17 when she followed up with Dr Sher. She denies any further symptoms that would suggest recurrence of her atrial fibrillation. She is scheduled for heart cath on Thursday, coumadin currently on hold for this. She states she is going to be evaluated for possible OHS and to see Cardiothoracic next month. 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 Monson follows for benign tumor removed 2002 - Unspecified essential hypertension 10/06/2008 PAST SURGICAL HISTORY Procedure Laterality Date - PAST SURGICAL HISTORY OF 2004 tumor removed from bladder SOCIAL HISTORY Social History Substance Use Topics - Smoking status: Former Smoker Packs/day: 1.00 Years: 58.00 Types: Cigarettes Start date: 1955 Quit date: 07/02/2013 - Smokeless tobacco: Never Used Comment: No smoking in childhood home. Spouse quit smoking years before patient did. - Alcohol use Yes Comment: occasionally FAMILY HISTORY Problem Relation Age of Onset - None Father - None Mother ALLERGIES: ALLERGIES Allergen Reactions - Zyloprim [Allopurin* Rash - Tramadol Other: See Comments made patient woozy/dizzy - Environmental [Othe* Intolerance rhinitis MEDICATIONS: amiodarone (PACERONE) 200 mg tablet Take 1 tablet by mouth once daily. atenolol (TENORMIN) 50 mg tablet Take 0.5 tablets by mouth once daily. magnesium oxide (MAGOX) 400 mg tablet Take 1 tablet by mouth once daily. potassium chloride SR (MICRO-K) 10 mEq CR capsule Take 2 capsules by mouth twice daily. on days taking furosemide (Lasix) umeclidinium-vilanterol (ANORO ELLIPTA) 62.5-25 mcg/actuation inhaler Inhale one inhalation as instructed once daily warfarin (COUMADIN) 2 mg tablet Take 1 tablet by mouth daily as directed. or as directed Benzonatate 200 mg capsule Take 200 mg by mouth three times daily as needed. furosemide (LASIX) 40 mg tablet Take 1 tablet by mouth once daily. albuterol HFA (VENTOLIN HFA) 90 mcg/actuation inhaler Inhale 2 Puffs as instructed every 4 hours as needed for Wheezing/Shortness of Breath. Cholecalciferol, Vitamin D3, 1,000 unit cap Take 1 capsule by mouth once daily. GLUCOSAM SUL NA/CHONDR WEATHERS A NA (GLUCOSAMINE AND CHONDROIT SUL.NA ORAL) Take 1 tablet by mouth once daily. Sandhya Singer RN PHYSICAL EXAMINATION: BP 98/60 Pulse (!) 57 Ht 167.6 cm (5' 6) Wt 65.8 kg (145 lb) BMI 23.4 kg/m2 General: Well appearing, in no acute distress. Skin: No clubbing, no cyanosis. Eyes: Extra ocular movements intact Oropharynx: Teeth in good repair. Neck: No jugular venous distention, no carotid bruits, carotids have a normal upstroke, no palpable thyromegaly. Lungs: Clear to auscultation bilaterally, no wheezing or rhonchi. Heart: Regular rhythm, PMI not displaced, S1, S2 normal, loud systolic ejection murmur at the right upper sternal border, 3/6 holosystolic murmur heard best at the apex Abdomen: Soft, nontender, bowel sounds normal, no palpable organomegaly, no bruits. Extremities: No peripheral edema . Grade 2/4 distal pulses bilaterally. Neuro: Oriented to person, place and time, alert, cooperative, gait coordinated. ? ECG: Sinus bradycardia 57 bpm, long ND interval (380 ms) narrow QRS complex, corrected QT 540 ms Component Latest Ref Rng AND Units 11/18/2017 11/23/2017 WBC, [place] 3.70 - 11.00 k/uL 6.06 RBC, [place] 3.90 - 5.20 m/uL 4.72 Hemoglobin, [place] 11.5 - 15.5 g/dL 12.8 Hematocrit, [place] 36.0 - 46.0 % 39.1 MCV, [place] 80.0 - 100.0 fL 82.8 MCH, [place] 26.0 - 34.0 pg 27.1 MCHC, [place] 30.5 - 36.0 g/dL 32.7 RDW, [place] 11.5 - 15.0 % 15.6 (H) Platelet Cnt, [place] 150 - 400 k/uL 177 MPV, [place] 9.0 - 12.7 fL 10.5 Neut%, [place] % 71.1 Lymp%, [place] % 13.0 [place]%, Bryan % 11.9 Eos%, [place] % 3.3 Baso%, [place] % 0.7 Abs Neut, [place] 1.45 - 7.50 k/uL 4.31 Abs Lymp, [place] 1.00 - 4.00 k/uL 0.79 (L) Abs [place], Bryan <0.87 k/uL 0.72 Abs Eos, [place] <0.46 k/uL 0.20 Abs Baso, [place] <0.11 k/uL 0.04 Glucose 74 - 99 mg/dL 98 BUN 7 - 21 mg/dL 21 Creatinine 0.58 - 0.96 mg/dL 0.92 Sodium 136 - 144 mmol/L 142 Potassium 3.7 - 5.1 mmol/L 4.0 Chloride 97 - 105 mmol/L 101 CO2 22 - 30 mmol/L 26 Anion Gap 9 - 18 mmol/L 15 Calcium 8.5 - 10.2 mg/dL 9.8 eGFR- >60 eGFR-All Other Races . 59 Magnesium 1.7 - 2.3 mg/dL 2.0 IMPRESSION: Ms. Sharpe is a delightful, well-appearing, high functioning 77 year old female with stage IV, non-Hodgkin's B-cell lymphoma (recent PET scan with findings per oncologist of complete remission -- bone marrow biopsy upcoming), hypertrophic cardiomyopathy with preserved LV systolic function (severe asymmetric septal hypertrophy with notable resting outflow gradient, GUI,. 4+ mitral regurgitation), AV conduction system disease (with very long first-degree AV block), prolonged QTc interval at baseline (greater than 500 ms), and 2 episodes of persistent symptomatic Atrial fibrillation to date (May and October 2017). On both instances this manifested with decompensated heart failure - and I suspect she does not tolerate RVR and/or loss of AV synchrony due to underlying organic heart disease. As such, I agree that a rhythm control strategy should be implemented. Amiodarone was initiated in early November, and she is seemingly maintained sinus rhythm with good tolerance without notable side effects. In the interim she was seen by Dr. Hidalgo who recommends surgical intervention. Dr. Argueta is coordinating preop evaluation. Would continue amiodarone for now, request surgical maze and left atrial appendage closure be performed at the time of open heart surgery. In the future, we could certainly aimed towards eliminating amiodarone. In regards to device indications. No immediate need for pacing support. Also does not have clinical characteristics, to warrant indication for ICD therapy for primary prevention at the present time -- though cardiac MRI is pending and results of this could play a factor in risk stratification. 1. Continue amiodarone 200 mg daily 2. Follow-up in 3-4 months (presumably postop period) Gilberto Ramos MD Electrophysiology staff pager [phone] November 27, 2017 1:17 PM I personally interviewed, confirmed and edited the above information as obtained by others. CONTACT INFORMATION: Gilberto Ramos MD, CNOV Observed: 11/27/2017 Status: COMPLETED Source: [place] 11:15 AM [facility] REPOSITORY Office Visit (CARDMN) PRISCILLA SHARPE ([id number]) 1940 F Date Time Provider Department 11/27/17 11:15 AM GILBERTO BOLTON During your visit today, we recorded the following information about you: Pulse Blood pressure Weight Height 57/minute 98/60 65.8 kg 1.676 m Gilberto Ramos MD, MD 11/27/2017 1:45 PM Signed [facility] Department of Cardiovascular Medicine SECTION OF CARDIAC PACING and ELECTROPHYSIOLOGY OUTPATIENT VISIT DATE November 27, 2017 OUTPATIENT VISIT TYPE ESTABLISHED PRIMARY CARE PHYSICIAN: Alisia Pacheco MD [address] [place] [address] CHIEF COMPLAINT: Recurrent AF, HCM, asx conduction system disease HISTORY OF PRESENT ILLNESS: Ms. Sharpe is a 77 year old female who presents today for follow-up visit. in the interim, she initiated amiodarone and has seemingly tolerated it describing no limiting side effects. In addition she is maintained sinus rhythm, and has been free of symptoms of decompensated heart failure. She denies chest pain, shortness of breath, orthopnea, cough, edema, palpitations, PND, lightheadedness or syncope. NURSING INTAKE HISTORY: Ms. Sharpe is a 77 year old female who presents today for hospital follow up for atrial fibrillation. She has a history of small cell lymphoma (treated with chemotherapy, with seemingly good suppression; currently in remission), hypertrophic cardiomyopathy (severe septal hypertrophy,GUI, 4+ mitral regurgitation), preserved LV systolic function, baseline QTC which is prolonged (500 ms), evidence of AV conduction system disease with prolonged ND interval (330 ms) -- and 2 episodes of atrial fibrillation (May and October 2017), both of which she was highly symptomatic with symptoms of congestive heart failure, and prompted cardioversion. She was placed on Amiodarone 11/06/17 when she followed up with Dr Sher. She denies any further symptoms that would suggest recurrence of her atrial fibrillation. She is scheduled for heart cath on Thursday, coumadin currently on hold for this. She states she is going to be evaluated for possible OHS and to see Cardiothoracic next month. 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 Monson follows for benign tumor removed 2002 - Unspecified essential hypertension 10/06/2008 PAST SURGICAL HISTORY Procedure Laterality Date - PAST SURGICAL HISTORY OF 2003 tumor removed from bladder SOCIAL HISTORY Social History Substance Use Topics - Smoking status: Former Smoker Packs/day: 1.00 Years: 58.00 Types: Cigarettes Start date: 1955 Quit date: 07/02/2013 - Smokeless tobacco: Never Used Comment: No smoking in childhood home. Spouse quit smoking years before patient did. - Alcohol use Yes Comment: occasionally FAMILY HISTORY Problem Relation Age of Onset - None Father - None Mother ALLERGIES: ALLERGIES Allergen Reactions - Zyloprim [Allopurin* Rash - Tramadol Other: See Comments made patient woozy/dizzy - Environmental [Othe* Intolerance rhinitis MEDICATIONS: amiodarone (PACERONE) 200 mg tablet Take 1 tablet by mouth once daily. atenolol (TENORMIN) 50 mg tablet Take 0.5 tablets by mouth once daily. magnesium oxide (MAGOX) 400 mg tablet Take 1 tablet by mouth once daily. potassium chloride SR (MICRO-K) 10 mEq CR capsule Take 2 capsules by mouth twice daily. on days taking furosemide (Lasix) umeclidinium-vilanterol (ANORO ELLIPTA) 62.5-25 mcg/actuation inhaler Inhale one inhalation as instructed once daily warfarin (COUMADIN) 2 mg tablet Take 1 tablet by mouth daily as directed. or as directed Benzonatate 200 mg capsule Take 200 mg by mouth three times daily as needed. furosemide (LASIX) 40 mg tablet Take 1 tablet by mouth once daily. albuterol HFA (VENTOLIN HFA) 90 mcg/actuation inhaler Inhale 2 Puffs as instructed every 4 hours as needed for Wheezing/Shortness of Breath. Cholecalciferol, Vitamin D3, 1,000 unit cap Take 1 capsule by mouth once daily. GLUCOSAM SUL NA/CHONDR WEATHERS A NA (GLUCOSAMINE ANDamp; CHONDROIT SUL.NA ORAL) Take 1 tablet by mouth once daily. Sandhya Singer RN PHYSICAL EXAMINATION: BP 98/60 Pulse (!) 57 Ht 167.6 cm (5' 6ANDquot;) Wt 65.8 kg (145 lb) BMI 23.4 kg/m2 General: Well appearing, in no acute distress. Skin: No clubbing, no cyanosis. Eyes: Extra ocular movements intact Oropharynx: Teeth in good repair. Neck: No jugular venous distention, no carotid bruits, carotids have a normal upstroke, no palpable thyromegaly. Lungs: Clear to auscultation bilaterally, no wheezing or rhonchi. Heart: Regular rhythm, PMI not displaced, S1, S2 normal, loud systolic ejection murmur at the right upper sternal border, 3/6 holosystolic murmur heard best at the apex Abdomen: Soft, nontender, bowel sounds normal, no palpable organomegaly, no bruits. Extremities: No peripheral edema . Grade 2/4 distal pulses bilaterally. Neuro: Oriented to person, place and time, alert, cooperative, gait coordinated. ? ECG: Sinus bradycardia 57 bpm, long ND interval (380 ms) narrow QRS complex, corrected QT 540 ms Component Latest Ref Rng ANDamp; Units 11/18/2017 11/23/2017 WBC, [place] 3.70 - 11.00 k/uL 6.06 RBC, [place] 3.90 - 5.20 m/uL 4.72 Hemoglobin, [place] 11.5 - 15.5 g/dL 12.8 Hematocrit, [place] 36.0 - 46.0 % 39.1 MCV, [place] 80.0 - 100.0 fL 82.8 MCH, [place] 26.0 - 34.0 pg 27.1 MCHC, [place] 30.5 - 36.0 g/dL 32.7 RDW, [place] 11.5 - 15.0 % 15.6 (H) Platelet Cnt, [place] 150 - 400 k/uL 177 MPV, [place] 9.0 - 12.7 fL 10.5 Neut%, [place] % 71.1 Lymp%, [place] % 13.0 [place]%, [place] % 11.9 Eos%, [place] % 3.3 Baso%, [place] % 0.7 Abs Neut, [place] 1.45 - 7.50 k/uL 4.31 Abs Lymp, [place] 1.00 - 4.00 k/uL 0.79 (L) Abs [place], [place] ANDlt;0.87 k/uL 0.72 Abs Eos, [place] ANDlt;0.46 k/uL 0.20 Abs Baso, [place] ANDlt;0.11 k/uL 0.04 Glucose 74 - 99 mg/dL 98 BUN 7 - 21 mg/dL 21 Creatinine 0.58 - 0.96 mg/dL 0.92 Sodium 136 - 144 mmol/L 142 Potassium 3.7 - 5.1 mmol/L 4.0 Chloride 97 - 105 mmol/L 101 CO2 22 - 30 mmol/L 26 Anion Gap 9 - 18 mmol/L 15 Calcium 8.5 - 10.2 mg/dL 9.8 eGFR- ANDgt;60 eGFR-All Other Races . 59 Magnesium 1.7 - 2.3 mg/dL 2.0 IMPRESSION: Ms. Sharpe is a delightful, well-appearing, high functioning 77 year old female with stage IV, non-Hodgkin's B-cell lymphoma (recent PET scan with findings per oncologist of complete remission -- bone marrow biopsy upcoming), hypertrophic cardiomyopathy with preserved LV systolic function (severe asymmetric septal hypertrophy with notable resting outflow gradient, GUI,. 4+ mitral regurgitation), AV conduction system disease (with very long first-degree AV block), prolonged QTc interval at baseline (greater than 500 ms), and 2 episodes of persistent symptomatic Atrial fibrillation to date (May and October 2017). On both instances this manifested with decompensated heart failure - and I suspect she does not tolerate RVR and/or loss of AV synchrony due to underlying organic heart disease. As such, I agree that a rhythm control strategy should be implemented. Amiodarone was initiated in early November, and she is seemingly maintained sinus rhythm with good tolerance without notable side effects. In the interim she was seen by Dr. Hidalgo who recommends surgical intervention. Dr. Argueta is coordinating preop evaluation. Would continue amiodarone for now, request surgical maze and left atrial appendage closure be performed at the time of open heart surgery. In the future, we could certainly aimed towards eliminating amiodarone. In regards to device indications. No immediate need for pacing support. Also does not have clinical characteristics, to warrant indication for ICD therapy for primary prevention at the present time -- though cardiac MRI is pending and results of this could play a factor in risk stratification. 1. Continue amiodarone 200 mg daily 2. Follow-up in 3-4 months (presumably postop period) Gilberto Ramos MD Electrophysiology staff pager [phone] November 27, 2017 1:17 PM I personally interviewed, confirmed and edited the above information as obtained by others. CONTACT INFORMATION: Gilberto Ramos MD, MD Referring Provider: GILBERTO BOLTON [[id number]] Allergies As of Date: 11/27/2017 Noted Allergy Reaction ZYLOPRIM (ALLOPURINOL) 05/26/2017 2 - Rash TRAMADOL 03/10/2016 14 - Other: See Comments Comments: made patient woozy/dizzy environmental [Other] 12/30/2005 5 - Intolerance Comments: rhinitis Date Reviewed: 11/27/2017 Reviewed by: Sandhya Starr (Rn) BHARATH Singer - Fully Assessed Primary Visit Diagnosis:Persistent atrial fibrillation (HCC) [I48.1] Other Visit Diagnoses:Non-rheumatic mitral regurgitation [I34.0] Essential hypertension [I10] Prescriptions as of 11/27/2017 Sig: AMIODARONE 200 MG TABLET Take 1 tablet by mouth once d* ATENOLOL 50 MG TABLET Take 0.5 tablets by mouth onc* MAGNESIUM OXIDE 400 MG TABLET Take 1 tablet by mouth once d* POTASSIUM CHLORIDE ER 10 MEQ * Take 2 capsules by mouth twic* UMECLIDINIUM 62.5 MCG-VILANTE* Inhale one inhalation as inst* WARFARIN 2 MG TABLET Take 1 tablet by mouth daily * BENZONATATE 200 MG CAPSULE Take 200 mg by mouth three ti* FUROSEMIDE 40 MG TABLET Take 1 tablet by mouth once d* ALBUTEROL SULFATE HFA 90 MCG/* Inhale 2 Puffs as instructed * CHOLECALCIFEROL (VITAMIN D3) * Take 1 capsule by mouth once * GLUCOSAMINE AND CHONDROIT SUL.N* Take 1 tablet by mouth once d* Problem List As Of Date 11/27/2017 Noted Resolved 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 IMPAIRED FASTING GLUCOSE [R73.01] INVALID FOR* Essential hypertension [I10] INVALID FOR* More... Osteoporosis [M81.0] INVALID FOR* More... Vitamin D Deficiency [E55.9] INVALID FOR* More... MR (mitral regurgitation) [I34.0] IBS (irritable bowel syndrome) [K58.9] More... 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 Disposition: Return in about 3 months (around 02/25/2018). Follow-up and Disposition History Recorded Encounter Status:Closed by GILBERTO BOLTON MD on 11/27/17 ALLERGIES ALLERGIES DATE TYPE / CODE NAME / CODE REACTION SEVERITY SOURCE Drug allopurinol/F006 Rash Unknown [place] 8 Allergy/564050985( 250901(RXNORM) [facility] Hospital Repository Drug tramadol/S087681 DIZZY Unknown [place] 8 Allergy/806361371( 180(RXNORM) [facility] SN[facility]) Hospital Repository DRUG ALLOPURINOL RASH [place] 7 INGREDI/321475533( [facility] [place] Repository DRUG TRAMADOL OTHER: SEE Rosi Mejia[place] 6 INGREDI/739839763( Clinic Main SNOMED CT) [place] Repository Miscellaneous OTHER INTOLERANCE [place] 6 Allergy/362960894( Clinic Main SNOMED CT) [place] Repository NG/105285509(SNOME ALLOPURINOL [facility] D CT) [facility] Repository NG/173800906(SNOME TRAMADOL [facility] D CT) [facility] Repository NG/945157041(SNOME OTHER [facility] D CT) [facility] Repository ENCOUNTERS ENCOUNTERS ADMIT/DISCHARGE ACCOUNT NUMBER ADMITTING ENCOUNTER LOCATION SOURCE CLASS 11/16/2018/11/16/19 [id number] Ambulatory [address] [place] Repository 11/12/2018/11/15/19 [id number] Ambulatory [address] Repository 11/12/2018/11/12/19 [id number] Ambulatory [address] Repository 11/08/2018/11/08/19 [id number] Ambulatory [address] Repository 11/08/2018/11/09/19 [id number] Ambulatory [address] Repository 11/05/2018 [id number] Ambulatory [facility] ding:MASS Repository 11/03/2018/11/03/19 [id number] Ambulatory BMSBuilding: [place] 19 BMS.[facility] Repository 10/29/2018/11/01/20 [id number] Ambulatory [address] Repository 10/20/2018 [id number] Ambulatory BMSBuilding: [place] BMS.[facility] Repository 10/20/2018 [id number] Ambulatory BMSBuilding: [place] BMS.CF.[facility] Repository 10/20/2018/10/20/20 [id number] Ambulatory [address] ding:CLSP Repository 10/14/2018/10/15/20 [id number] Ambulatory [address] Repository 10/11/2018/10/12/20 [id number] Ambulatory [address] Repository 10/11/2018/10/12/20 [id number] Ambulatory [address] Repository 10/11/2018/10/14/20 [id number] Ambulatory [address] Repository 10/11/2018/10/14/20 [id number] Ambulatory [address] Repository 10/07/2018/10/07/20 [id number] Ambulatory [facility] Main [place] Repository 09/29/2018/09/30/20 [id number] Ambulatory [facility] Main [place] Repository 09/27/2018/10/14/20 [id number] Ambulatory [facility] Main [place] Repository 09/27/2018/09/27/20 [id number] Ambulatory [place] [address] [place] [address] ding:PT Repository 09/20/2018/09/21/20 [id number] Ambulatory [facility] Main [place] Repository 09/16/2018/09/17/20 [id number] Ambulatory [facility] Main [place] Repository 09/15/2018/09/16/20 [id number] Ambulatory [facility] Main [place] Repository 09/14/2018/09/14/20 [id number] Ambulatory [facility] Main [place] Repository 09/14/2018/09/15/20 [id number] Ambulatory [facility] Main [place] Repository 09/14/2018/09/14/20 [id number] Ambulatory [facility] Main [place] Repository 09/13/2018/09/15/20 [id number] Ambulatory [facility] Main [place] Repository 09/10/2018/09/13/20 [id number] Ambulatory [facility] Main [place] Repository 09/06/2018/09/06/20 [id number] Ambulatory [facility] Main [place] Repository 09/02/2018/09/03/20 [id number] Ambulatory [facility] Main [place] Repository 08/30/2018/08/31/20 [id number] Ambulatory [facility] Main [place] Repository 08/27/2018/08/30/20 [id number] Ambulatory [facility] Main [place] Repository 08/26/2018/08/27/20 [id number] Ambulatory [facility] Main [place] Repository 08/23/2018/08/23/20 [id number] Ambulatory [facility] Main [place] Repository 08/20/2018/08/23/20 [id number] Ambulatory [facility] Main [place] Repository 08/19/2018/08/19/20 [id number] Ambulatory [facility] Main [place] Repository 08/19/2018/08/19/20 [id number] Ambulatory [facility] Main [place] Repository 08/19/2018/08/23/20 [id number] Ambulatory [facility] Main [place] Repository 08/19/2018/08/19/20 [id number] Ambulatory [place] [facility] Main [place] Repository 08/19/2018/08/19/20 [id number] Ambulatory [place] [facility] Main [place] Repository 08/06/2018/08/17/20 [id number] [place] ding:TCURoom Repository : DHL61Zov: 1 08/06/2018/08/06/20 [id number] Ambulatory [address] Main [place] Repository 07/30/2018/08/06/20 [id number] SANDRO, Inpatient [address] Main [place] Repository 07/29/2018/08/02/20 [id number] Ambulatory [place] [facility] Main [place] Repository 07/29/2018/07/29/20 [id number] Ambulatory [place] [facility] [place] Repository 07/29/2018/07/29/20 [id number] Ambulatory [place] [facility] [place] Repository 07/29/2018/07/29/20 [id number] Ambulatory [place] [facility] [place] Repository 07/29/2018/07/29/20 [id number] Ambulatory [place] [facility] [place] Repository 07/29/2018/07/29/20 [id number] Ambulatory [place] [facility] [place] Repository 07/15/2018/07/19/20 [id number] Ambulatory [place] [facility] Main [place] Repository 07/15/2018/07/15/20 [id number] Ambulatory [place] 18 [facility] Main [place] Repository 07/15/2018/07/19/20 [id number] Ambulatory [place] [facility] Main [place] Repository 07/09/2018 [id number] Ambulatory [facility] ding:LABSPEC Repository 07/09/2018/07/09/20 [id number] Ambulatory [facility] Main [place] Repository 07/07/2018/07/08/20 [id number] Ambulatory [place] [facility] Main [place] Repository 07/01/2018/07/02/20 [id number] Ambulatory [place] [facility] Main [place] Repository 06/23/2018/06/24/20 [id number] Ambulatory [place] 18 [facility] Main [place] Repository 06/18/2018/08/20 [id number] Ambulatory [place] [facility] [place] Repository 06/14/2018/06/15/20 [id number] Ambulatory [address] Main [place] Repository 06/10/2018/06/18/20 [id number] Ambulatory [place] [facility] Main [place] Repository 06/10/2018 [id number] Ambulatory [facility] Main [place] Repository 06/10/2018/06/10/20 [id number] Ambulatory [address] Main [place] Repository 06/10/2018/06/10/20 [id number] Ambulatory [address] Main [place] Repository 06/10/2018/06/10/20 [id number] Ambulatory [address] Main [place] Repository 06/03/2018/06/03/20 [id number] Ambulatory [address] Main [place] Repository 05/19/2018/05/20/20 [id number] Ambulatory [address] Main [place] Repository 05/12/2018/05/12/20 [id number] Ambulatory [address] Main [place] Repository 05/11/2018/05/11/20 [id number] Emergency [address] ding:ED Repository 05/10/2018/05/11/20 [id number] Ambulatory [address] Main [place] Repository 05/02/2018/05/05/20 [id number] Ambulatory [address] Repository :CPCERoom: 6B77Wes: 05/02/2018 [id number] Geovanna, Ambulatory [facility] ding:PCU Repository 04/19/2018/04/20/20 [id number] Ambulatory [address] Main [place] Repository 04/12/2018/04/15/20 [id number] Ambulatory [address] Main [place] Repository 04/12/2018/04/15/20 [id number] Ambulatory [address] Main [place] Repository 04/05/2018/04/06/20 [id number] Ambulatory [address] Main [place] Repository 03/22/2018/04/02/20 [id number] Ambulatory [address] Main [place] Repository 03/22/2018/03/23/20 [id number] Ambulatory [address] Main [place] Repository 03/03/2018/03/04/20 [id number] Ambulatory [address] Main [place] Repository 02/23/2018/02/25/20 [id number] Ambulatory [address] Main [place] Repository 02/09/2018/02/11/20 [id number] Ambulatory [address] Main [place] Repository 01/26/2018/01/28/20 [id number] Ambulatory [address] Main [place] Repository 01/19/2018/01/21/20 [id number] Ambulatory [address] Main [place] Repository 01/13/2018/01/14/20 [id number] Ambulatory [address] Main [place] Repository 01/13/2018/01/14/20 [id number] Ambulatory [address] Other [place] Repository 01/13/2018/01/14/20 [id number] Ambulatory PAYUNI [address] MEDICAL Repository CENTERBuildi ng:CAGWS 01/11/2018/01/13/20 [id number] Ambulatory [address] Main [place] Repository 01/04/2018/01/06/20 [id number] Ambulatory [address] Main [place] Repository 12/29/2017/01/05/20 [id number] Ambulatory [address] Main [place] Repository 12/28/2017/12/30/19 [id number] Ambulatory [address] Main [place] Repository 12/14/2017/12/15/19 [id number] Ambulatory [address] Main [place] Repository 12/14/2017/12/16/19 [id number] Ambulatory [address] Main [place] Repository 12/06/2017/12/06/19 [id number] Ambulatory [address] Main [place] Repository 12/06/2017/12/06/19 [id number] Ambulatory [address] Main [place] Repository 12/02/2017 [id number] Ambulatory [facility] ding:LABSPEC Repository 12/02/2017 [id number] Ambulatory [facility] Main [place] Repository 12/02/2017/12/02/19 [id number] CARI MARTINEZ Ambulatory [address] Repository 11/30/2017 [id number] Ambulatory [facility] ding:CLSP Repository 11/30/2017 [id number] Ambulatory BMSBuilding: [facility] Repository 11/27/2017/11/27/19 [id number] Ambulatory [address] Repository PAYERS PAYERS ENCOUNTER GUARANTOR PAYER SUBSCRIBER SOURCE 11/05/2018 PRISCILLA Primary NOT GIVENUNK [place] [id number] Insurance:SELF PAY [address] Number: Effective Repository [phone]: (330) Date:2018-09-07 [phone] () 11/03/2018 PRISCILLA Primary PRISCILLA [place] [id number] Insurance:JUSTIN SCHWERDTFEGERDOB [address] HEALTH PLAN : [id number] Number: Repository [address]Nrr: 330 [id number] [phone] () Date:4005-20-22[address] [address]LW: 11/03/2018 Secondary NOT GIVENUNK [place] Insurance:SELF PAY [facility] Number: Effective Repository Date:2018-11-03 10/20/2018 PRISCILLA Primary PRISCILLA [place] [id number] Insurance:JUSTIN SCHWERDTFEGERDOB [address] HEALTH PLAN : [id number] Valley Community Hospital Number: Repository [id number]: ([phone] [id number] [phone] () Date:9918-14-26JF [address] [address]ND: 10/20/2018 Secondary NOT GIVENUNK [place] Insurance:SELF PAY [facility] Number: Effective Repository Date:2018-10-20 10/20/2018 PRISCILLA Primary PRISCILLA [place] [id number] Insurance:JUSTIN SCHWERDTFEGERDOB [address] HEALTH PLAN : [id number] Valley Community Hospital Number: Repository [id number]: 330 [id number] [phone] (HP) Date:2740-25-26SN [address] [address]GN: 10/20/2018 Secondary NOT GIVENUNK [place] Insurance:SELF PAY [facility] Number: Effective Repository Date:2018-10-20 10/20/2018 PRISCILLA Primary PRISCILLA [place] [id number] Insurance:JUSTIN SCHWERDTFEGERDOB [address] HEALTH PLAN : [id number] Valley Community Hospital Number: Repository [address]Vrk: 330 [id number] [phone] () Date:4389-17-73EB [facility] [address] [place] [address]EY: 10/20/2018 Secondary NOT GIVENUNK [place] Insurance:SELF PAY [facility] Number: Effective Repository Date:2018-10-14 09/27/2018 PRISCILLA Primary PRISCILLA [place] [id number] Insurance:JUSTIN SCHWERDTFEGERDOB [address] PLAN : [id number] Valley Community Hospital Number: Repository [address]Mho: 330 [id number] [phone] () Date:1289-67-23EC [facility] [place] [address]VK: 09/27/2018 Secondary NOT GIVENUNK [place] Insurance:SELF PAY [facility] Number: Effective Repository Date:2018-08-18 08/06/2018 PRISCILLA Primary PRISCILLA [place] [id number] Insurance:JUSTIN SCHWERDTFEGERDOB [address] PLAN : [id number] Valley Community Hospital Number: Repository [id number]: 330 [id number] [phone] () Date:6275-75-78PA [facility] [address] [place] [address]HZ: 08/06/2018 Secondary NOT GIVENUNK [place] Insurance:SELF PAY [facility] Number: Effective Repository Date:2018-08-06 07/09/2018 PRISCILLA Primary PRISCILLA [place] [id number] Insurance:JUSTIN SCHWERDTFEGERDOB [address] HEALTH PLAN : [id number] Square Medical CenterOPolicy Number: Repository [id number]: 330 [id number] [phone] () Date:1506-06-97GN [facility] [address] [place] [address]TB: 07/09/2018 Secondary NOT GIVENUNK [place] Insurance:SELF PAY [facility] Number: Effective Repository Date:2018-07-09 05/11/2018 PRISCILLA Primary PRISCILLA [place] [id number] Insurance:JUSTIN SCHWERDTFEGERDOB [address] PLAN : [id number] Square Medical CenterOPolicy Number: Repository [id number]: 330 [id number] [phone] () Date:9288-46-46XJ [facility] [place] [address]DY: 05/11/2018 Secondary NOT GIVENUNK [place] Insurance:SELF PAY [facility] Number: Effective Repository Date:2018-05-11 05/02/2018 PRISCILLA E Primary PRISCILLA [place] SCHWERDTFEGERDOB Insurance:MEDICARE SCHWERDTFEGERDOB Health System : ADVAN OT PART : [id number] Repository [facility] [place] [place] Effective [address]Sol: Date:2014-12-03 - [id number] Name:Manju () () 05/02/2018 Secondary PRISCILLA E [place] Insurance:MEDICARE [facility] Health System ADVAN OT PART : [id number] Repository BPolicy Number: Effective Date:[id number] Name:B 05/02/2018 PRISCILLA Primary PRISCILLA [place] [id number] Insurance:JUSTIN SCHWERDTFEGERDOB [address] HEALTH PLAN : [id number] Square Medical CenterOPolicy Number: Repository [id number]: 330 [id number] [phone] (HP) Date:0616-07-67[place] [address] [address]EU: 05/02/2018 Secondary NOT GIVENUNK [place] Insurance:SELF PAY [facility] Number: Effective Repository Date:2018-05-02 01/13/2018 PRISCILLA Primary PRISCILLA [facility] Insurance:[facility] : HEALTH PLAN [facility] : [id number] [facility] Medical [facility] Number: [place] [id number]: 330) Date: [phone] () 12/02/2017 PRISCILLA Primary PRISCILLA [place] [id number] Insurance:JUSTIN SCHWERDTFEGER[address] HEALTH PLAN : [id number] [facility] Number: Repository [id number]: [id number] [phone] Date:5550-74-26JA [address] () [place] [address]LY: 12/02/2017 Secondary NOT GIVENUNK [place] Insurance:SELF PAY [facility] Number: Effective Repository Date:2017-12-02 11/30/2017 PRISCILLA Primary PRISCILLA [place] [id number] Insurance:JUSTIN SCHWERDTFEGERDO[address] PLAN : [id number] Square Medical CenterOPolicy Number: Repository [id number]: [id number] [phone] Date:1287-34-58UY [address] (HP) [place] [address]LQ: 11/30/2017 Secondary NOT GIVENUNK [place] Insurance:SELF PAY [facility] Number: Effective Repository Date:2017-11-16 11/30/2017 PRISCILLA Primary PRISCILLA [place] [id number] Insurance:JUSTIN SCHWERDTFEGERDOB [address] HEALTH PLAN : [id number] Square Medical CenterOPolicy Number: Repository [id number]: [id number] [phone] Date:5846-28-06WO [address] (QR) [place] [address]KC: 11/30/2017 Secondary NOT GIVENUNK [place] Insurance:SELF PAY [facility] Number: Effective Repository Date:2017-11-30
== END 2018-10-20 14:19 | disposition home or self-care (01) ==
PROVIDERS: Family Provider Internal Medicine; PCP Internal Medicine; Referring Provider Internal Medicine Cardiovascular Disease; Visit Provider Internal Medicine Cardiovascular Disease
DX: I48.0 Paroxysmal atrial fibrillation (principal); I48.92 Unspecified atrial flutter; I11.0 Hypertensive heart disease with heart failure; I50.30 Unspecified diastolic (congestive) heart failure; I25.10 Atherosclerotic heart disease of native coronary artery without angina pectoris; I42.1 Obstructive hypertrophic cardiomyopathy; I44.0 Atrioventricular block, first degree; I44.7 Left bundle-branch block, unspecified; G72.89 Other specified myopathies; E78.5 Hyperlipidemia, unspecified; K58.0 Irritable bowel syndrome with diarrhea; M81.0 Age-related osteoporosis without current pathological fracture; Z79.01 Long term (current) use of 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; Z79.82 Long term (current) use of aspirin; Z79.899 Other long term (current) drug therapy; Z86.711 Personal history of pulmonary embolism; Z85.72 Personal history of non-Hodgkin lymphomas; Z87.891 Personal history of nicotine dependence
CPT/HCPCS: 36416; 85610; 92960; 93005; J7040

== ENCOUNTER → 2019-02-18 13:00 | Outpatient (CLI) | payer MEDICARE, SELFPAY ==
[2019-02-18 14:08] LABS: International Normalized Ratio 1.6; Prothrombin Time (Protime)PT. 19.1 SECONDS (11.7-14.9)
== END ==
PROVIDERS: Family Provider Internal Medicine; PCP Internal Medicine; Referring Provider Internal Medicine; Visit Provider Internal Medicine
DX: I48.91 Unspecified atrial fibrillation (principal); Z79.01 Long term (current) use of 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
CPT/HCPCS: 85610

== ENCOUNTER → 2019-03-04 12:28 | Outpatient (CLI) | payer MEDICARE, SELFPAY ==
[2019-03-04 13:05] LABS: International Normalized Ratio 1.9
== END ==
PROVIDERS: Family Provider Internal Medicine; PCP Internal Medicine; Referring Provider Internal Medicine; Visit Provider Internal Medicine
DX: I48.91 Unspecified atrial fibrillation (principal); Z79.01 Long term (current) use of 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
CPT/HCPCS: 85610

== ENCOUNTER 2019-04-19 10:00 | Day surgery (SDC) | payer MEDICARE, SELFPAY ==
[2019-04-08 09:42] VITALS: BMI 24.3
--- NOTE | 2019-04-08 10:40 | HP_ITS ---
HPI HPI History of Present Illness Surgical H&P: Yes Details: This is an 79-year-old white female who presents today for outpatient cardiovascular establishment of care with respect to transferring care from [facility] cardiology. She has been previously diagnosed with an underlying cardiovascular condition which has included hypertrophic cardiomyopathy for which on 07/30/2018 at the [facility] she underwent a septal myectomy with mitral valve repair consisting of excision of a prolapsing segment of the P3 scallop of the mitral valve, annuloplasty with a #33 Bernabe band, bilateral pulmonary vein isolation with multiple upper occasions of the Atricure radiofrequency clamp, and clipping of the left atrial appendage with a 50 mm Atricure clip. She states since her surgery she has felt much better. At the present time she denies any ongoing symptoms of classic angina pectoris and she has had no overt episodes of acute CHF or pulmonary edema. There is been no near syncope or syncope. She denies palpitations or rapid rates. She does have a history of underlying atrial fibrillation/flutter. She has undergone DC cardioversion in the past on more than one occasion. According to her last [facility] cardiology visit note from 03-09-19 she has remained in her atrial fibrillation/flutter. She was being treated medically with initiation of antiarrhythmic therapy with the hopes that this would assist her with regaining and/or maintaining sinus rhythm status post a repeat DC cardioversion. She has remained on anticoagulant therapy. It appears that she had a transthoracic echocardiogram performed on 08-06-18 through the [facility] system. According to the note the left ventricle was normal with an LVEF of 74%, there was postsurgical mitral valve findings with a [place] mitral valve annuloplasty ring with trivial mitral valve regurgitation. There was also, she had a resting LVOT gradient of 18 mmHg and with Valsalva maneuver a peak LVOT gradient of 21 mmHg and after a meal nitrate the peak LVOT gradient of 27 mmHg. During these maneuvers there was no change in her MR. It appears she had a pharmacologic stress nuclear imaging study performed through the [facility] system on 11-05-15 at that time her perfusion study was listed as normal with no evidence of ischemia. She had a diagnostic cardiac catheterization performed at [facility] on 11-30-17. At that time her LV was normal with respect to systolic function and an LVEF of 65% with angiographically normal coronary arteries and a report of moderate mitral valve prolapse. It appears she is undergone previous ambulatory monitors in the past as well. In April 2013 she had a 24-hour Holter monitor stated that time she had sinus rhythm with rare PACs and PVCs and no pauses. Today she had an ECG which suggested underlying atrial fibrillation/flutter with a left axis deviation and a left bundle branch block pattern. She states she has been taking her medication without interruption. She has had her INR followed through the [facility] Coumadin clinic. She believes her INRs have been therapeutic. Intake Vital Signs 04/08/19 Height 5 ft 6 in 04/08/19 Weight: 151 lb 04/08/19 Body Mass Index (BMI) 24.3 04/08/19 Blood Pressure 128/82 H 04/08/19 Blood Pressure Location Lt brachial 04/08/19 Blood Pressure Position Sitting 04/08/19 Respiratory Rate 16 04/08/19 Pulse Rate 68 04/08/19 Pulse Source Auscultation Intake Visit Reasons: Transfer from [place] [employer] Required: No Accompanied by: Self Allergies allopurinol Allergy (Verified 04/08/19 09:42) Rash tramadol Adverse Reaction (Verified 04/08/19 09:42) dizzy Medications Umeclidinium Brm/Vilanterol Tr [Anoro Ellipta 62.5-25 Mcg INH] 1 puff INHALATION DAILY 10/06/17 [History Confirmed 04/08/19] Cholecalciferol (Vitamin D3) [Vitamin D3] 1,000 unit PO DAILY 08/06/18 [History Confirmed 04/08/19] Acetaminophen [Tylenol] 1,000 mg PO Q8H PRN tab 08/16/18 [Rx Confirmed 04/08/19] Albuterol Inhaler [Ventolin Hfa] 2 puff INHALATION Q4H PRN PRN #1 inhaler 08/16/18 [Rx Confirmed 04/08/19] Potassium Chloride [K-Dur] 10 meq PO DAILY #30 tab 08/16/18 [Rx Confirmed 04/08/19] Warfarin [Coumadin (PBKC)] 2 mg PO DAILY 10/19/18 [History Confirmed 04/08/19] albuterol sulfate concentrate 5 mg/mL(0.5 %) solution for nebulization 2.5 mg INHALATION TID-QID PRN 04/06/19 [History Confirmed 04/08/19] amiodarone 200 mg tablet 200 mg PO DAILY 04/06/19 [History Confirmed 04/08/19] furosemide 40 mg tablet 20 mg PO DAILY tab 04/06/19 [History Confirmed 04/08/19] magnesium 400 mg (as magnesium oxide) tablet 400 mg PO DAILY tab 04/06/19 [History Confirmed 04/08/19] [facility] Medical History LBBB (left bundle branch block) (Acute) Essential hypertension (Chronic) Non-Hodgkin lymphoma (Chronic) Hyperlipidemia (Chronic) Chronic diastolic heart failure (Chronic) Atrial flutter with rapid ventricular response (Resolved) Acute respiratory failure with hypoxia (Chronic) Bladder cancer (Chronic) History of left heart catheterization (LHC) (Resolved ~11/30/17) COPD (chronic obstructive pulmonary disease) (Chronic) History of cardioversion (Chronic ~10/07/17) Hypertrophic obstructive cardiomyopathy (HOCM) (Chronic) Long QT interval (Chronic) Paroxysmal atrial fibrillation (Chronic) Hypertension (Inactive) Nonrheumatic mitral (valve) insufficiency (Inactive) Surgical History History of mitral valve repair (Resolved ~07/30/18) History of ventricular septal myectomy (Resolved ~07/30/18) History of bladder surgery (Chronic) Family History Father Heart disease Hypertension Social History Smoking Status: Former smoker pack-years: 58 alcohol intake: current details: occasional caffeine: No ROS Const Const: Negative for fatigue, weakness, frequent falls, excessive sweating, weight gain or weight loss Eyes Eyes: Negative for transient loss of vision, blurry vision or change in vision ENT ENT: Negative for dizziness or balance problems Cardio Chest Pain: No Palpitations: No Edema: None Muscle aches with walking: None Resp Respiratory: Negative for SOB with activity or SOB at rest Additional Details: Patient wears oxygen @ night on occasiona GI GI: Negative vomiting or vomiting blood/hematemesis : Negative for hematuria Musc Musc: Negative for muscle aches/ myalgia, muscle weakness, joint pain or balance problems Skin Skin: Negative non-healing lesions or rash Neuro Neuro: Negative for dizziness, lightheadedness, orthostatic symptoms, frequent falls, weakness or blurry vision Chris Hematologic/Lymphatic: Negative for easy bleeding Endo Endo: Negative for fatigue or excessive sweating Psych Psych: Negative for anxiety or depression Allergy Allergy/Immunology: Negative for hives, Negative for rash Cardiology Exam Const Appearance: cooperative, healthy appearing, comfortable, no acute distress, well developed and well groomed Nutritional Appearance: average body habitus Orientation: alert, awake and oriented x3 Head Head: normal to inspection, normocephalic and atraumatic Ears: hearing grossly normal bilaterally Nose: external nose normal Face and Sinus: face symmetric Mouth: oral mucosae normal Teeth and gingiva: fair dentition Eyes Eyelids: eyelids normal Conjunctivae: conjunctivae normal Pupils: PERRL EOM: EOM intact bilaterally Neck Neck: normal visual inspection and full ROM Carotids: normal carotid upstroke Chest Chest inspection: normal inspection of the chest, symmetric chest movement and normal respiratory effort Auscultation: Bilateral: Clear to Auscultation Cardio Palpation: normal PMI Rhythm: irregular rhythm Heart sounds: S1 normal and S2 normal GI GI: normal to inspection, soft and bowel sounds present Neuro General: alert, awake, oriented x3 and moves all extremities Skin Skin: no rashes or lesions noted Extremities Pulses: Normal: Right Radial Pulse, Left Radial Pulse Lower Extremity Edema: None: Bilateral Psych Psychological: normal affect Assessment & Plan 1. Hypertrophic obstructive cardiomyopathy (HOCM) I42.1 Plan At the present time she appears to be doing well status post her previously mentioned surgical procedure. She will continue her current medical management and outpatient follow-up. 2. History of ventricular septal myectomy Z98.890 Septal myectomy and mitral valve repair with Annuloplasty with a #33 Spear band, Bilateral pulmonary vein isolation with multiple occasions of the Atricure radiofrequency clamp and clipping of the left atrial appendage with a 50mm Atricure clip Plan Again she is undergone cardiovascular surgery as described above. She states she is symptomatically improved. She will continue medical therapy and follow- up. 3. History of mitral valve repair Z98.890 Septal myectomy and mitral valve repair with Annuloplasty with a #33 Spear band, Bilateral pulmonary vein isolation with multiple occasions of the Atricure radiofrequency clamp and clipping of the left atrial appendage with a 50mm Atricure clip Plan Her mitral valve repair will be followed over time by history, exam, and echocardiographic studies. She will continue AHA antibiotic prophylaxis. 4. Atrial fibrillation and flutter I48.91; I48.92 Plan She will undergo further evaluation care for her atrial dysrhythmia. The present time she will continue her medical management. A copy of her [facility] INR records will be requested for review. If they appear to be appropriate then she will be scheduled for upcoming attempt at synchronized biphasic DC cardioversion. Orders Orders: Cardioversion 2 Weeks Basic Metabolic Profile (BMP) 2 Weeks Prothrombin Time w/INR 1 Week 12 Lead EKG performed by [facility] Today 5. LBBB (left bundle branch block) I44.7 Plan She does have a history of underlying conduction system disease with a left bundle branch block pattern. This will be followed over time. 6. Hyperlipidemia, unspecified hyperlipidemia type E78.5 Plan She will continue risk factor evaluation care as deemed appropriate. 7. Essential hypertension I10 Plan Her blood pressure appears to be well controlled at this time. She will continue her current medical management and follow-up. Plan Detail Other Orders Orders: 12 Lead EKG performed by [facility] Today I50.32 Additional Comments The above was discussed with her. She was agreeable to this approach. Thank you for allowing me to participate in the care of your patient. Please don't hesitate to call if any issues arise. This note was generated using a voice recognition system and there may be incorrect words, spelling or punctuation that were not noted when reviewing the office note prior to saving. Follow Up 6 Months (with PFM) 04/08/19 (Copy of F INRs) Coding Level of Care Code Off vis,est,level 5 Diagnoses Hypertrophic obstructive cardiomyopathy (HOCM) I42.1 History of ventricular septal myectomy Z98.890 History of mitral valve repair Z98.890 Atrial fibrillation and flutter I48.91; I48.92 LBBB (left bundle branch block) I44.7 Hyperlipidemia, unspecified hyperlipidemia type E78.5 ??Hyperlipidemia type: unspecified Essential hypertension I10 Coding Level of Care Code Off vis,est,level 5 Diagnoses Hypertrophic obstructive cardiomyopathy (HOCM) I42.1 History of ventricular septal myectomy Z98.890 History of mitral valve repair Z98.890 Atrial fibrillation and flutter I48.91; I48.92 LBBB (left bundle branch block) I44.7 Hyperlipidemia, unspecified hyperlipidemia type E78.5 ??Hyperlipidemia type: unspecified Essential hypertension I10 Supplemental Info Supplemental Information Labs LDL Cholesterol 130 mg/dL (0-130) 05/13/17 HDL Cholesterol 24 mg/dL (40-) L 05/13/17 Triglycerides 206 mg/dL (-199) H 05/13/17 VLDL Cholesterol 41 mg/dL (5-40) H 05/13/17 Diagnostics Electrocardiogram 04/08/19 Cardiac Catheterization 11/30/17 Chest X-Ray 08/12/18 04/08/19 1040 <Electronically signed by Arnold maxwell MD> Date _ Arnold Bland MD I have re-examined the patient. There are no clinical changes since date of exam.
[2019-04-18 07:35] VITALS: BMI 24.3
[2019-04-19 10:06] LABS: Prothrombin Time Fingerstick 46.9 SEC (11.9-14.4)
--- NOTE | 2019-04-19 11:12 | CARDIOVERS ---
Cardioversion Cardioversion: Procedure: Synchronized Biphasic DC Cardioversion Indications: Atrial flutter Consent: Per the Patient Anesthesia: per Dr. Dr. Hannah of pulmonology and critical care medicine with propofol 40 mg IV push total Procedure: Synchronized Biphasic DC Cardioversion: 50 J x1: Result: Sinus rhythm Complications: no apparent complications This note was generated with [email or web address] dictation software. It may contain incorrect words, spelling, and punctuation that were not noted in checking the note before signing.
--- NOTE | 2019-04-19 12:11 | PRO.PCM_ITS ---
Procedure Report Date of Procedure: 04/19/19 CONSCIOUS SEDATION REPORT DATE OF SERVICE: April 19, 2019 BRIEF HISTORY OF PRESENT ILLNESS: The patient is an 79-year-old female who presented to [facility] for an elective outpatient cardioversion due to underlying atrial flutter. The patient did undergo a previous cardioversion this past October, during which time, 40 mg of propofol was utilized for sedation. The patient denies any previous anesthetic complications. Her last surface echocardiogram revealed an ejection fraction of approximately 75%. She is currently anticoagulated on Coumadin with an INR noted today to be 4.2. PHYSICAL EXAMINATION: VITAL SIGNS: Reviewed and were acceptable. GENERAL: The patient is a female, in no apparent distress, speaking in full sentences. HEENT: Normocephalic, atraumatic. Mucous membranes are moist and pink. Good mouth opening noted. Trachea is midline. Good neck mobility. CHEST: S1, S2 irregularly irregular. No murmurs, rubs or gallops were noted. LUNGS: Clear to auscultation bilaterally without appreciable wheezes, rales or rhonchi. ABDOMEN: Soft, nontender, nondistended. Positive bowel sounds. EXTREMITIES: There is no clubbing, cyanosis or edema. ASA Class: II DESCRIPTION OF PROCEDURE: After confirmation of informed consent, the patient's anesthesia plan was reviewed in detail. Propofol was chosen. Risks and benefits were reviewed and the patient agreed to proceed. At 1056, the patient was given 40 mg of propofol. The patient achieved an appropriate level of sedation and was given a 50 joule synchronized cardioversion by Dr. Bland at the bedside. This was successful in achieving normal sinus rhythm. The patient was monitored until 1102, at which time she reached her baseline mental status and function. The patient tolerated the procedure well. COMPLICATIONS: None ESTIMATED BLOOD LOSS: None RECOMMENDATIONS: Okay to recover in usual fashion. Code Visit 9xxxx: Other Procedure See Report - [id number]
== END 2019-04-19 12:00 | disposition home or self-care (01) ==
LOC: CLSP 13:40
PROVIDERS: Referring Provider Internal Medicine Cardiovascular Disease; Visit Provider Internal Medicine Cardiovascular Disease
DX: I42.1 Obstructive hypertrophic cardiomyopathy (principal); I11.0 Hypertensive heart disease with heart failure; I50.32 Chronic diastolic (congestive) heart failure; J96.01 Acute respiratory failure with hypoxia; J44.9 Chronic obstructive pulmonary disease, unspecified; I48.0 Paroxysmal atrial fibrillation; I48.92 Unspecified atrial flutter; E78.5 Hyperlipidemia, unspecified; Z79.01 Long term (current) use of 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; Z88.8 Allergy status to other drugs, medicaments and biological substances; Z87.891 Personal history of nicotine dependence
CPT/HCPCS: 36416; 85610; 92960; 93005; J7040

== ENCOUNTER 2019-04-29 15:22 | Outpatient (RCR) | payer MEDICARE, SELFPAY ==
[2019-04-08 09:42] VITALS: BMI 24.3
[2019-04-14 11:43] LABS: International Normalized Ratio 2.7; Prothrombin Time (Protime)PT. 29.1 SECONDS (11.7-14.9)
[2019-04-14 11:54] LABS: Anion Gap 4 (5-15); BUN 21 mg/dL (7-18); BUN/Creat Ratio 17.6 RATIO (10-20); Calcium,Total 9.1 mg/dL (8.5-10.1); Chloride 107 mmol/L (98-107); Creatinine, Serum 1.19 mg/dL (0.55-1.02); EST Glomerular Filtration Rate 46 mL/min (>60); Est Glom Filt Rate - Afr Amer 56 mL/min (>60); Glucose 103 mg/dL (74-106); Potassium 3.9 mmol/L (3.5-5.1); Sodium Level 139 mmol/L (136-145)
[2019-04-29 15:35] LABS: Prothrombin Time Fingerstick 31.9 SEC (11.9-14.4)
== END 2019-05-01 12:00 | disposition home or self-care (01) ==
LOC: LAB 15:22
PROVIDERS: Family Provider Internal Medicine; PCP Internal Medicine; Referring Provider Internal Medicine Cardiovascular Disease; Visit Provider Internal Medicine Cardiovascular Disease
DX: I48.91 Unspecified atrial fibrillation (principal); I48.92 Unspecified atrial flutter
CPT/HCPCS: 36415; 36416; 80048; 85610

== ENCOUNTER 2019-05-24 14:00 | Outpatient (RCR) | payer MEDICARE, SELFPAY ==
[2019-04-18 07:35] VITALS: BMI 24.3
[2019-05-12 15:26] LABS: Prothrombin Time Fingerstick 26.1 SEC (11.9-14.4)
[2019-05-16 13:46] LABS: Prothrombin Time Fingerstick 20.1 SEC (11.9-14.4)
[2019-05-24 14:20] LABS: Prothrombin Time Fingerstick 24.1 SEC (11.9-14.4)
== END 2019-06-01 16:20 | disposition home or self-care (01) ==
LOC: LAB 14:00
PROVIDERS: Family Provider Internal Medicine; PCP Internal Medicine; Referring Provider Internal Medicine Cardiovascular Disease; Visit Provider Internal Medicine Cardiovascular Disease
DX: I48.91 Unspecified atrial fibrillation (principal); I48.92 Unspecified atrial flutter
CPT/HCPCS: 36416; 85610

== ENCOUNTER 2019-06-28 14:49 | Outpatient (RCR) | payer MEDICARE, SELFPAY ==
[2019-04-18 07:35] VITALS: BMI 24.3
[2019-06-08 09:50] LABS: Prothrombin Time Fingerstick 28.4 SEC (11.9-14.4)
== END 2019-06-28 15:49 | disposition home or self-care (01) ==
LOC: LAB 14:49
PROVIDERS: Family Provider Internal Medicine; PCP Internal Medicine; Referring Provider Internal Medicine Cardiovascular Disease; Visit Provider Internal Medicine Cardiovascular Disease
DX: I48.91 Unspecified atrial fibrillation (principal); I48.92 Unspecified atrial flutter
CPT/HCPCS: 36415; 36416; 85610

== ENCOUNTER 2019-07-19 12:48 | Outpatient (RCR) | payer MEDICARE, SELFPAY ==
[2019-06-20 09:26] VITALS: BMI 24.5
[2019-07-05 12:57] VITALS: BMI 24.3
[2019-07-19 15:20] LABS: Prothrombin Time Fingerstick 26.1 SEC (11.9-14.4)
== END 2019-07-19 13:00 | disposition home or self-care (01) ==
LOC: LAB 12:48
PROVIDERS: Family Provider Internal Medicine; PCP Internal Medicine; Referring Provider Internal Medicine Cardiovascular Disease; Visit Provider Internal Medicine Cardiovascular Disease
DX: I48.91 Unspecified atrial fibrillation (principal); I48.92 Unspecified atrial flutter
CPT/HCPCS: 36416; 85610

== ENCOUNTER 2019-08-10 12:37 | Outpatient (RCR) | payer MEDICARE, SELFPAY ==
[2019-07-05 12:57] VITALS: BMI 24.3
[2019-08-10 15:16] LABS: Prothrombin Time Fingerstick 24.1 SEC (11.9-14.4)
== END 2019-08-10 18:00 | disposition home or self-care (01) ==
LOC: LAB 12:37
PROVIDERS: Family Provider Internal Medicine; PCP Internal Medicine; Referring Provider Internal Medicine Cardiovascular Disease; Visit Provider Internal Medicine Cardiovascular Disease
DX: I48.91 Unspecified atrial fibrillation (principal); I48.92 Unspecified atrial flutter
CPT/HCPCS: 36416; 85610

== ENCOUNTER 2019-09-12 12:34 | Outpatient (RCR) | payer MEDICARE, SELFPAY ==
[2019-08-30 13:34] VITALS: BMI 24.8
== END 2019-09-12 18:00 | disposition home or self-care (01) ==
LOC: LAB 12:34
PROVIDERS: Family Provider Internal Medicine; PCP Internal Medicine; Referring Provider Internal Medicine Cardiovascular Disease; Visit Provider Internal Medicine Cardiovascular Disease
DX: I48.91 Unspecified atrial fibrillation (principal); I48.92 Unspecified atrial flutter
CPT/HCPCS: 36416; 85610

== ENCOUNTER 2019-10-17 12:40 | Outpatient (RCR) | payer MEDICARE, SELFPAY ==
[2019-08-30 13:34] VITALS: BMI 24.8
[2019-10-04 14:04] LABS: Prothrombin Time Fingerstick 21.4 SEC (11.9-14.4)
[2019-10-18 12:10] LABS: Prothrombin Time Fingerstick 25.6 SEC (11.9-14.4)
== END 2019-10-17 18:00 | disposition home or self-care (01) ==
LOC: LAB 12:40
PROVIDERS: Family Provider Internal Medicine; PCP Internal Medicine; Referring Provider Internal Medicine Cardiovascular Disease; Visit Provider Internal Medicine Cardiovascular Disease
DX: I48.91 Unspecified atrial fibrillation (principal); I48.92 Unspecified atrial flutter
CPT/HCPCS: 36416; 85610

== ENCOUNTER 2019-11-08 01:50 | Emergency (ER) | payer MEDICARE, SELFPAY ==
[2019-08-30 13:34] VITALS: BMI 24.8
[2019-11-08] VITALS (7 sets, daily range): BP systolic 117–143; BP diastolic 74–99; PULSE 100–111; RESP 16–22; TEMP 36.7; O2SAT 93–96; BMI 26.4
--- NOTE | 2019-11-08 02:00 | ED.RN ---
CALLED FOR EKG PER RN REQUEST, PULLED OLD EKGS FOR
--- NOTE | 2019-11-08 02:12 | EKG12_ITS ---
Test Reason : DYSRHYTHMIA Blood Pressure : / mmHG Vent. Rate : 116 BPM Atrial Rate : 119 BPM P-R Int : 000 ms QRS Dur : 132 ms QT Int : 404 ms P-R-T Axes : 000 -10 132 degrees QTc Int : 561 ms Atrial flutter with rapid ventricular response Left bundle branch block Abnormal ECG Confirmed by RIVAS FORTUNE, AG ([id number]), commissioning editor SHANKAR TERRAZAS ([id number] on 11/09/2019 11:09:50 AM Referred By: BB Confirmed By:AG HATHAWAY MD
--- NOTE | 2019-11-08 02:13 | RAD_ITS ---
STUDY: X-RAY CHEST REASON FOR EXAM: Female, 79 years old. Pneumonia with increasing shortness of breath TECHNIQUE: PA and lateral views of the chest. COMPARISON: 08/12/18 FINDINGS: Patchy airspace opacification at the right midlung base which is unchanged. No pleural effusion or pneumothorax. Borderline cardiomegaly, unchanged. Postoperative change from median sternotomy, mitral valve replacement, and atrial appendage clip placement. Normal mediastinum and niharika. Normal visualized pulmonary arteries. There is atherosclerotic calcification of the aortic arch . There are diffuse degenerative changes of the visualized thoracic spine. Normal visualized ribs, clavicles, and shoulders. There is no demonstrated abnormality of the visualized soft tissue structures of the upper abdomen. RAD/Chest PA and Lateral IMPRESSION: Right midlung base recurrent infiltrate versus scar formation. Electronically Signed: Karthikeyan Verma MD at 3:20 EST Tel , Service support ,
--- NOTE | 2019-11-08 02:14 | ED.VIS.CHEST ---
History of Present Illness Chief Complaint: Shortness of Breath Detail of Chief Complaint: sob and chest pain Informant: Patient, EMS Onset: Today - this evening around 4-6 hrs [employer] Activity at onset: Rest Timing: Continuous Quality: Tightness Location: Substernal - lower chest Current Severity: Mild Maximum Severity: Mild Worsened By: Nothing. Not Worsened By: Breathing Relieved By: Nothing Associated Symptoms: Dyspnea, Cough - unchanged, persistent, productive, Palpitations - fast. Negative for: Nausea, Vomiting, Diaphoresis, Lightheadedness Narrative: Patient states she was seen as an outpatient for a bad productive cough for 5 days ago in [facility] pulmonology, where she is followed for COPD, they heard crackles in her lungs and saw pneumonia on the chest x-ray, and started her on an antibiotic. The first pill upset her stomach so she called in and they changed it to Levaquin, she does not know what the original one was but she is taking this 1 and tolerating it. She states that the cough is no better, still productive of some white sputum, no blood, but her breathing improved until tonight. This evening she states she started feeling chest tightness and increased shortness of breath, she checked her pulse and it was fast, symptoms persisted. She denies any lightheadedness or near syncope. No swelling in her legs or orthopnea. She denies any abdominal pain or nausea/vomiting. She has a history of some type of cardiac valve replacement that she had 1 or 2 years ago at [facility], but denies a known history of coronary disease or dysrhythmias. She has home oxygen but only uses it on a prn basis. 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 (10) Irritable bowel syndrome Status: Chronic (11) LBBB (left bundle branch block) Status: Chronic (12) nursing home current use of anticoagulant Status: Chronic (13) 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 (14) Osteoporosis Status: Chronic (15) Persistent atrial fibrillation Status: Chronic (16) Prolonged QT syndrome Status: Chronic (17) Atrial flutter with rapid ventricular response Status: Resolved (18) History of mitral valve repair Status: Resolved Comment: Septal myectomy and mitral valve repair with Annuloplasty with a #33 Spear band, Bilateral pulmonary vein isolation with multiple occasions of the Atricure radiofrequency clamp and clipping of the left atrial appendage with a 50mm Atricure clip (19) History of ventricular septal myectomy Status: Resolved Comment: Septal myectomy and mitral valve repair with Annuloplasty with a #33 Spear band, Bilateral pulmonary vein isolation with multiple occasions of the Atricure radiofrequency clamp and clipping of the left atrial appendage with a 50mm Atricure clip Past Medical History - Allergies and Home Meds Allergies/Adverse Reactions: Allergies allopurinol Allergy (Verified 11/08/19 01:57) Rash tramadol Adverse Reaction (Verified 11/08/19 01:57) dizzy Primary Care Physician: Arnold Bland MD [STAFF PHYSICIAN] - Keep Shruti appointment Surgical History: - - Bladder surgery per Dr. Monson, Septal myectomy, mitral valve repair, left atrial appendage clipping. Lives: Alone Smoking Status: Former smoker - Family History Maternal Family History: Family History (Last Reviewed 08/10/19 @ 13:26 by SAM Biggs) Father Heart disease Hypertension Family History: Reports: Heart Disease, Hypertension Paternal Family History: Family History (Last Reviewed 08/10/19 @ 13:26 by SAM Biggs) Father Heart disease Hypertension Family History: Reports: Heart Disease, Hypertension Review of Systems General: Reports: Malaise. Denies: Chills, Fever, Sweats Eyes: Denies: Visual changes - bilaterally, Diplopia ENT: Denies: Rhinorrhea, Sore throat Cardiovascular: Reports: Chest pain - Nonpleuritic tightness. No radiation., Palpitations, Heart racing Respiratory: Reports: Dyspnea, Cough, Sputum, Dyspnea on exertion. Denies: Orthopnea Gastrointestinal: Denies: Abdominal pain, Nausea, Vomiting, Diarrhea, Melena, Hematochezia Genitourinary: Denies: Dysuria, Hematuria, Frequency Musculoskeletal: Denies: Neck pain, Back pain, Swelling, Extremity Pain Skin: Denies: Rash, Wounds Neurological: Denies: Headache, Weakness, Numbness Physical Exam Vital Signs/Narrative: Vital Signs Temp Pulse Resp BP Pulse Ox 11/08/19 02:00 98.1 F 108 H 18 143/74 H 93 11/08/19 01:51 98.1 F 111 H 22 H 140/90 H 94 Inital Vital Signs reviewed: Yes General: Well nourished, Well developed, No Acute Distress - Well-appearing, conversive in full sentences Head: Normocephalic, Atraumatic Eyes: Perrl, EOMI ENT: Moist mucous membranes, No rhinorrhea Neck: Supple, Nontender, No lymphadenopathy, No JVD Cardiovascular: Regular rate, Regular rhythm, No murmurs - Faint heart sounds, Tachycardia Respiratory: No distress, CTA bilaterally, Chest nontender, Diminished - Throughout, symmetrically Abdomen: Soft, Nontender, Nondistended, Normal bowel sounds Back: Nontender, Normal Inspection Extremities: Nontender, No edema. Negative for: Calf Tenderness Skin: Normal color, No rash, No Trauma Neurological: Alert, Oriented x3, Cranial nerves II-XII grossly intact, Normal Strength, Normal Sensation, Normal Gait Psychological: Normal affect, Normal Mood Diagnostic/Tx/Re-eval Impressions Chest X-Ray 11/08/19 02:13 IMPRESSION: Right midlung base recurrent infiltrate versus scar formation. Electronically Signed: Karthikeyan Verma MD at 3:20 EST Tel , Service support , 11/08/19 02:13 Chest PA and Lateral [RAD] Stat Laboratory Tests 11/08/19 11/08/19 11/08/19 Range/Units 05:38 02:35 02:35 WBC (4.4-11.0) K/mm3 RBC (4.2-5.4) M/mm3 Hgb (12.0-15.0) g/dL Hct (37-47) % MCV (81-99) fL MCH (27.0-32.0) pg MCHC (32-36) g/dL RDW Std Deviation (35.1-43.9) fl RDW Coeff of Neelima (11.6-14.6) % Plt Count (150-450) K/mm3 MPV (6.2-12.0) fl Immature Gran % (Auto) (0.0-0.9) % Neut % (Auto) (47-70) % Lymph % (Auto) (19-41) % [place] % (Auto) (0-10) % Eos % (Auto) (0-5) % Baso % (Auto) (0-1) % Absolute Neuts (auto) (2.0-7.7) X10^3/uL Absolute Lymphs (auto) (0.83-4.51) X10^3/uL Nucleated RBC % (0-5) % PT 19.1 H (11.7-14.9) SECONDS INR 1.6 Sodium (136-145) mmol/L Potassium (3.5-5.1) mmol/L Chloride (98-107) mmol/L Carbon Dioxide (21.0-32.0) mmol/L Anion Gap (5-15) BUN (7-18) mg/dL Creatinine (0.55-1.02) mg/dL Estim Creat Clear Calc ml/min Est GFR (MDRD) Af Amer (>60) mL/min Est GFR (MDRD) Non-Af (>60) mL/min BUN/Creatinine Ratio (10-20) RATIO Glucose (74-106) mg/dL Lactic Acid 1.4 (0.4-1.9) mmol/L Calcium (8.5-10.1) mg/dL Troponin I < 0.015 (<0.045) ng/mL 11/08/19 11/08/19 Range/Units 02:35 02:35 WBC 8.0 (4.4-11.0) K/mm3 RBC 5.94 H (4.2-5.4) M/mm3 Hgb 15.5 H (12.0-15.0) g/dL Hct 49.1 H (37-47) % MCV 82.7 (81-99) fL MCH 26.1 L (27.0-32.0) pg MCHC 31.6 L (32-36) g/dL RDW Std Deviation 44.8 H (35.1-43.9) fl RDW Coeff of Neelima 14.8 H (11.6-14.6) % Plt Count 205 (150-450) K/mm3 MPV 10.4 (6.2-12.0) fl Immature Gran % (Auto) 0.500 (0.0-0.9) % Neut % (Auto) 60.1 (47-70) % Lymph % (Auto) 29.4 (19-41) % [place] % (Auto) 7.0 (0-10) % Eos % (Auto) 2.1 (0-5) % Baso % (Auto) 0.9 (0-1) % Absolute Neuts (auto) 4.8 (2.0-7.7) X10^3/uL Absolute Lymphs (auto) 2.35 (0.83-4.51) X10^3/uL Nucleated RBC % 0 (0-5) % PT (11.7-14.9) SECONDS INR Sodium 138 (136-145) mmol/L Potassium 4.1 (3.5-5.1) mmol/L Chloride 105 (98-107) mmol/L Carbon Dioxide 28.0 (21.0-32.0) mmol/L Anion Gap 5 (5-15) BUN 26 H (7-18) mg/dL Creatinine 1.07 H (0.55-1.02) mg/dL Estim Creat Clear Calc 39.26 ml/min Est GFR (MDRD) Af Amer 63 (>60) mL/min Est GFR (MDRD) Non-Af 52 L (>60) mL/min BUN/Creatinine Ratio 24.3 H (10-20) RATIO Glucose 118 H (74-106) mg/dL Lactic Acid (0.4-1.9) mmol/L Calcium 9.1 (8.5-10.1) mg/dL Troponin I < 0.015 (<0.045) ng/mL - Rhythm Strip Rhythm Strip: Sinus tach versus A. fib Rate: 115 Ectopy: None - EKG Initial EKG Interpretation: No Acute Injury Pattern, Atrial Fibrillation, LBBB Prior: Changed - Was sinus rhythm; left bundle branch block is unchanged Treatment: - - cardizem Repeat Eval: 11/11 WALLACE Risk: Age >/= 65, >/= 3RF Score: 2 - Medical Decision Making EKG shows A. fib, her old one was sinus rhythm. Looking back at a cardiology visit 3 or 4 months ago, she had been in A. fib off and on, and had symptoms with it but never had this chest tightness according to her. Since she continued having issues going in and out of A. fib and having symptoms and after a failed cardioversion, discussed going to [facility] for an EP evaluation and possible ablation but she declined. She still was not sure if she wants to do that or not. She states she was on amiodarone but that was discontinued months prior to this appointment. She has apparently been on nothing for rate control since then, and she states it was not discussed that this past appointments and she did not have any symptoms at the time, she thinks. I discussed with Dr. Souza who is on for cardiology, and noted also that the patient has an appointment with her refractory specialist Dr. Bland tomorrow. Given her COPD and possibility of pneumonia (her chest x-ray shows scarring versus mild infiltrate), she may not be a great candidate for a stress test right now, so his recommendation is to discharge if negative delta troponin and placed on metoprolol succinate 50 mg daily and have her follow-up as scheduled tomorrow. Patient is comfortable with that plan. Delta was performed and the repeat is negative. She continues to feel improved with good rate control. ED Disposition - Plan for ED Patient: Disposition: Home or Assisted Living Diagnosis: Chest pain, unspecified, Atrial fibrillation with RVR, Hypertrophic obstructive cardiomyopathy (HOCM) Instructions: Atrial Fibrillation Prescriptions: Metoprolol Succinate 50 mg PO DAILY #30 tab.er.24h Transmission Status: Received by [id number] Referrals: Arnold Bland MD [STAFF PHYSICIAN] - Keep Shruti appointment
[2019-11-08 02:43] LABS: Absolute Lymphocyte Count 2.35 X10^3/uL (0.83-4.51); Absolute Neutrophil Count 4.8 X10^3/uL (2.0-7.7); Basophil# 0.07 X10^3/uL; Basophil% 0.9 % (0-1); Eosinophil# 0.17 X10^3/uL; Eosinophils% 2.1 % (0-5); Hematocrit 49.1 % (37-47); Hemoglobin 15.5 g/dL (12.0-15.0); Lymphocyte # 2.35 X10^3/ul (4.0); Lymphocyte % 29.4 % (19-41); Mean Corp Hgb Conc 31.6 g/dL (32-36); Mean Corpuscular Hgb 26.1 pg (27.0-32.0); Mean Corpuscular Volume 82.7 fL (81-99); Mean Platelet Vol. 10.4 fl (6.2-12.0); Monocyte# 0.56 X10^3/uL; NRBC Flagged by Analyzer 0 % (0-5); Neutrophil % 60.1 % (47-70); Platelet Count 205 K/mm3 (150-450); RBC Distribution Width CV 14.8 % (11.6-14.6); RBC Distribution Width SD 44.8 fl (35.1-43.9); Red Blood Count 5.94 M/mm3 (4.2-5.4)
[2019-11-08 02:50] LABS: International Normalized Ratio 1.6; Prothrombin Time (Protime)PT. 19.1 SECONDS (11.7-14.9)
[2019-11-08 03:04] LABS: Anion Gap 5 (5-15); BUN 26 mg/dL (7-18); BUN/Creat Ratio 24.3 RATIO (10-20); Calcium,Total 9.1 mg/dL (8.5-10.1); Chloride 105 mmol/L (98-107); Creatinine, Serum 1.07 mg/dL (0.55-1.02); EST Glomerular Filtration Rate 52 mL/min (>60); Est Glom Filt Rate - Afr Amer 63 mL/min (>60); Estimated Creatinine Clearance 39.26 ml/min; Glucose 118 mg/dL (74-106); Lactic Acid 1.4 mmol/L (0.4-1.9); Potassium 4.1 mmol/L (3.5-5.1); Sodium Level 138 mmol/L (136-145)
[2019-11-08] MEDS: 0.9% Normal Saline 1,000 ML 1000 ML IV (03:06)
[2019-11-08] MEDS: dilTIAZem 25 MG/5 ML Vial 15 MG IV BOLUS (03:06)
[2019-11-08] MEDS: Metoprolol(XL)Succ 50 MG Tablet PO (06:41)
== END 2019-11-08 06:51 | disposition home or self-care (01) ==
PROVIDERS: Emergency Provider Emergency Medicine; Family Provider Internal Medicine; PCP Internal Medicine
DX: R07.9 Chest pain, unspecified (principal); I48.91 Unspecified atrial fibrillation; I42.1 Obstructive hypertrophic cardiomyopathy; I11.0 Hypertensive heart disease with heart failure; I50.32 Chronic diastolic (congestive) heart failure; R06.02 Shortness of breath; I34.0 Nonrheumatic mitral (valve) insufficiency; J44.9 Chronic obstructive pulmonary disease, unspecified; E78.5 Hyperlipidemia, unspecified; K58.9 Irritable bowel syndrome, unspecified; Z79.01 Long term (current) use of 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; Z79.899 Other long term (current) drug therapy; Z87.891 Personal history of nicotine dependence; Z85.51 Personal history of malignant neoplasm of bladder; Z85.72 Personal history of non-Hodgkin lymphomas; Z95.2 Presence of prosthetic heart valve
CPT/HCPCS: 36415; 71046; 80048; 83605; 84484; 85025; 85610; 87040; 93005; 96361; 96374; 99285; J7030; A4216

== ENCOUNTER → 2019-11-14 12:11 | Outpatient (CLI) | payer MEDICARE, SELFPAY ==
[2019-11-09 14:48] VITALS: BMI 24.5
[2019-11-14 13:15] LABS: AST(SGOT) 15 U/L (15-37); Alanine Aminotransfer ALT/SGPT 19 U/L (13-56); Albumin, Serum 3.6 g/dL (3.2-5.0); Alkaline Phosphatase 86 U/L (45-117); Globulin 3.4 g/dL (2.2-4.2); Thyroid Stim Hormone (TSH) 1.38 uIU/mL (0.358-3.74)
== END ==
PROVIDERS: Family Provider Internal Medicine; PCP Internal Medicine; Referring Provider Internal Medicine Cardiovascular Disease; Visit Provider Internal Medicine Cardiovascular Disease
DX: E78.5 Hyperlipidemia, unspecified (principal); I10 Essential (primary) hypertension; I48.19 Other persistent atrial fibrillation; I42.1 Obstructive hypertrophic cardiomyopathy; Z98.890 Other specified postprocedural states
CPT/HCPCS: 36415; 80076; 84436; 84443

== ENCOUNTER 2019-11-28 13:37 | Outpatient (RCR) | payer MEDICARE, SELFPAY ==
[2019-08-30 13:34] VITALS: BMI 24.8
[2019-11-08 01:51] VITALS: BMI 26.4
[2019-11-09 16:50] LABS: Prothrombin Time Fingerstick 24.7 SEC (11.9-14.4)
[2019-11-21 17:18] LABS: Prothrombin Time Fingerstick 15.2 SEC (11.9-14.4)
[2019-11-28 14:35] LABS: Prothrombin Time Fingerstick 21.8 SEC (11.9-14.4)
== END 2019-11-28 18:00 | disposition home or self-care (01) ==
LOC: LAB 13:37
PROVIDERS: Family Provider Internal Medicine; PCP Internal Medicine; Referring Provider Internal Medicine Cardiovascular Disease; Visit Provider Internal Medicine Cardiovascular Disease
DX: I48.91 Unspecified atrial fibrillation (principal); I48.92 Unspecified atrial flutter
CPT/HCPCS: 36416; 85610

== ENCOUNTER 2019-12-28 14:47 | Outpatient (RCR) | payer MEDICARE, SELFPAY ==
[2019-11-09 14:48] VITALS: BMI 24.5
[2019-12-12 16:20] LABS: Prothrombin Time Fingerstick 30.5 SEC (11.9-14.4)
[2019-12-28 15:13] LABS: International Normalized Ratio 2.3; Prothrombin Time (Protime)PT. 25.6 SECONDS (11.7-14.9)
[2019-12-28 15:33] LABS: T4 Total, Thyroxin 15.3 ug/dL (4.8-13.9); Thyroid Stim Hormone (TSH) 1.04 uIU/mL (0.358-3.74)
== END 2019-12-28 18:00 | disposition home or self-care (01) ==
LOC: LAB 14:47
PROVIDERS: Nurse Practitioner Family; Family Provider Internal Medicine; PCP Internal Medicine; Referring Provider Internal Medicine Cardiovascular Disease; Visit Provider Internal Medicine Cardiovascular Disease
DX: I48.91 Unspecified atrial fibrillation (principal); I48.92 Unspecified atrial flutter
CPT/HCPCS: 36415; 36416; 84436; 84443; 85610

== ENCOUNTER 2020-01-19 13:16 | Outpatient (RCR) | payer MEDICARE, SELFPAY ==
[2019-12-21 14:31] VITALS: BMI 24.5
[2020-01-04 13:41] LABS: Anion Gap 6 (5-15); BUN 19 mg/dL (7-18); BUN/Creat Ratio 17.8 RATIO (10-20); Calcium,Total 9.4 mg/dL (8.5-10.1); Chloride 108 mmol/L (98-107); Creatinine, Serum 1.07 mg/dL (0.55-1.02); EST Glomerular Filtration Rate 52 mL/min (>60); Est Glom Filt Rate - Afr Amer 63 mL/min (>60); Glucose 86 mg/dL (74-106); Potassium 4.1 mmol/L (3.5-5.1); Sodium Level 142 mmol/L (136-145)
[2020-01-04 13:51] LABS: International Normalized Ratio 2.4; Prothrombin Time (Protime)PT. 25.9 SECONDS (11.7-14.9)
[2020-01-11 13:11] LABS: Prothrombin Time Fingerstick 28.2 SEC (11.9-14.4)
[2020-01-19 15:46] LABS: Prothrombin Time Fingerstick 31.2 SEC (11.9-14.4)
== END 2020-01-19 18:00 | disposition home or self-care (01) ==
LOC: LAB 13:16
PROVIDERS: Nurse Practitioner Family; Family Provider Internal Medicine; PCP Internal Medicine; Referring Provider Internal Medicine Cardiovascular Disease; Visit Provider Internal Medicine Cardiovascular Disease
DX: I48.91 Unspecified atrial fibrillation (principal); I48.92 Unspecified atrial flutter; I34.0 Nonrheumatic mitral (valve) insufficiency; I44.7 Left bundle-branch block, unspecified; E78.5 Hyperlipidemia, unspecified; I11.0 Hypertensive heart disease with heart failure; I50.32 Chronic diastolic (congestive) heart failure; I42.1 Obstructive hypertrophic cardiomyopathy; Z79.899 Other long term (current) drug therapy; Z79.01 Long term (current) use of 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; Z98.890 Other specified postprocedural states
CPT/HCPCS: 36415; 36416; 80048; 85610

== ENCOUNTER 2020-02-27 11:55 | Outpatient (RCR) | payer MEDICARE, SELFPAY ==
[2019-12-21 14:31] VITALS: BMI 24.5
[2020-02-13 18:14] LABS: International Normalized Ratio 3.2; Prothrombin Time (Protime)PT. 32.2 SECONDS (11.7-14.9)
[2020-02-13 18:38] LABS: T4 Total, Thyroxin 14.6 ug/dL (4.8-13.9); Thyroid Stim Hormone (TSH) 0.97 uIU/mL (0.358-3.74)
[2020-02-27 12:15] LABS: Prothrombin Time Fingerstick 20.3 SEC (11.9-14.4)
== END 2020-03-01 18:00 | disposition home or self-care (01) ==
LOC: MTLAB 11:55
PROVIDERS: Nurse Practitioner Family; Family Provider Internal Medicine; PCP Internal Medicine; Referring Provider Internal Medicine Cardiovascular Disease; Visit Provider Internal Medicine Cardiovascular Disease
DX: I48.19 Other persistent atrial fibrillation (principal); I42.1 Obstructive hypertrophic cardiomyopathy; Z79.01 Long term (current) use of 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
CPT/HCPCS: 36415; 36416; 84436; 84443; 85610

== ENCOUNTER 2020-03-27 12:55 | Outpatient (RCR) | payer MEDICARE, SELFPAY ==
[2019-12-21 14:31] VITALS: BMI 24.5
[2020-03-05 15:06] LABS: Prothrombin Time Fingerstick 18.3 SEC (11.9-14.4)
[2020-03-12 13:35] LABS: International Normalized Ratio 1.6; Prothrombin Time (Protime)PT. 18.8 SECONDS (11.7-14.9)
[2020-03-19 12:06] LABS: International Normalized Ratio 2.2; Prothrombin Time (Protime)PT. 24.1 SECONDS (11.7-14.9)
[2020-03-19 12:41] LABS: T4 Total, Thyroxin 15.7 ug/dL (4.8-13.9); Thyroid Stim Hormone (TSH) 0.77 uIU/mL (0.358-3.74)
== END 2020-03-27 18:00 | disposition home or self-care (01) ==
LOC: LAB 12:55
PROVIDERS: Family Provider Internal Medicine; PCP Internal Medicine; Referring Provider Internal Medicine Cardiovascular Disease; Visit Provider Internal Medicine Cardiovascular Disease
DX: I48.19 Other persistent atrial fibrillation (principal); Z79.01 Long term (current) use of 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
CPT/HCPCS: 36415; 36416; 84436; 84443; 85610

== ENCOUNTER 2020-04-17 13:57 | Outpatient (RCR) | payer MEDICARE, SELFPAY ==
[2020-03-14 14:23] VITALS: BMI 24.7
[2020-04-03 13:00] LABS: Prothrombin Time Fingerstick 28.3 SEC (11.9-14.4)
[2020-04-10 13:21] LABS: Prothrombin Time Fingerstick 31.7 SEC (11.9-14.4)
[2020-04-17 15:07] LABS: International Normalized Ratio 2.4
[2020-04-17 15:32] LABS: T4 Total, Thyroxin 15.1 ug/dL (4.8-13.9); Thyroid Stim Hormone (TSH) 1.33 uIU/mL (0.358-3.74)
[2020-04-17 16:47] LABS: Anion Gap 11 (5-15); BUN 22 mg/dL (7-18); BUN/Creat Ratio 20.4 RATIO (10-20); Calcium,Total 9.4 mg/dL (8.5-10.1); Chloride 104 mmol/L (98-107); Creatinine, Serum 1.08 mg/dL (0.55-1.02); EST Glomerular Filtration Rate 52 mL/min (>60); Est Glom Filt Rate - Afr Amer 63 mL/min (>60); Glucose 94 mg/dL (74-106); Potassium 4.6 mmol/L (3.5-5.1); Sodium Level 139 mmol/L (136-145)
== END 2020-04-17 18:00 | disposition home or self-care (01) ==
LOC: LAB 13:57
PROVIDERS: Nurse Practitioner Family; Family Provider Internal Medicine; PCP Internal Medicine; Referring Provider Internal Medicine Cardiovascular Disease; Visit Provider Internal Medicine Cardiovascular Disease
DX: I48.19 Other persistent atrial fibrillation (principal); Z79.01 Long term (current) use of 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
CPT/HCPCS: 36415; 36416; 80048; 84436; 84443; 85610

== ENCOUNTER 2020-04-24 10:23 | Day surgery (SDC) | payer MEDICARE, SELFPAY ==
[2020-03-14 14:23] VITALS: BMI 24.7
[2020-04-23 11:18] VITALS: BMI 24.7
--- NOTE | 2020-04-23 12:45 | PCM.HP.BLA ---
<Portia Ogden M - Last Filed: 04/23/20 12:45> History and Physical Date of Admission: 04/24/20 History of Present Illness Details: This is an 80-year-old white female who presents today for a cardioversion for her Atrial fib. She has a hx of hypertrophic cardiomyopathy for which on 07/30/2018 at the [facility] she underwent a septal myectomy with mitral valve repair consisting of excision of a prolapsing segment of the P3 scallop of the mitral valve, annuloplasty with a #33 [place] band, bilateral pulmonary vein isolation with multiple upper occasions of the Atricure radiofrequency clamp, and clipping of the left atrial appendage with a 50 mm Atricure clip. She does have a history of underlying atrial fibrillation/flutter. She has undergone DC cardioversion in the past on more than one occasion. She did undergo a cardioversion while on an antiarrhythmic in April 2019, unfortunately she remained in atrial fibrillation. It was discussed whether or not she wanted to discontinue her amiodarone or see an EP. Patient at that time felt that she wanted to think about it as she felt that she was in sinus rhythm. She denies chest, arm, jaw, or neck discomfort. Her exercise tolerance is stable. She denies symptoms of palpitations, lightheadedness, dizziness, near syncope, or syncopal episodes. She denies edema or claudication issues. She denies orthopnea, PND, fever, chills, cough, blood in urine, blood in stool, myalgia, or unexplainable fatigue. She states her SOB is at baseline and is intermittent with exertion. She attributes this to her underlying COPD and previous smoking history. Intake Intake Visit Reasons: Amb Documentation Allergies allopurinol Allergy (Verified 03/14/20 14:23) Rash tramadol Adverse Reaction (Verified 03/14/20 14:23) dizzy [facility] Social History (Updated 03/14/20 @ 15:26 by KAROLINA Mcnulty) Smoking Status: Former smoker pack-years: 58 alcohol intake: current details: occasional caffeine: No ROS Const Const: Negative for fatigue, weakness, body ache, fever(s) or chills ENT ENT: Negative for dizziness Cardio Chest Pain: No Palpitations: No Edema: None Muscle aches with walking: None Resp Respiratory: Negative for SOB with activity, SOB at rest, SOB orthopnea\SOB lying down or paroxysmal nocturnal dyspnea GI GI: Negative nausea, vomiting blood/hematemesis, bright, red blood in stools or black,tarry stools : Negative for hematuria or frequent nighttime urination/ nocturia Musc Musc: Negative for muscle aches/ myalgia Skin Skin: Negative non-healing lesions or rash Neuro Neuro: Negative for dizziness or weakness Endo Endo: Negative for fatigue Allergy Allergy/Immunology: Negative for rash Cardiology Exam Const Appearance: cooperative, healthy appearing, comfortable and no acute distress Nutritional Appearance: average body habitus and well nourished Orientation: alert, awake and oriented x3 Head Head: normal to inspection Ears: hearing grossly normal bilaterally Nose: external nose normal Face and Sinus: face symmetric Mouth: oral mucosae normal Eyes General: appearance normal, both eyes and all related structures Eyelids: eyelids normal EOM: EOM intact bilaterally Neck Neck: normal visual inspection and no JVD Carotids: normal carotid upstroke Chest Chest inspection: normal inspection of the chest, symmetric chest movement and normal respiratory effort; negative cough Auscultation: Bilateral: Clear to Auscultation Cardio Palpation: normal PMI Rhythm: irregular rhythm Heart sounds: S1 normal and S2 normal; negative rub, gallop or murmur GI GI: normal to inspection Neuro General: alert, awake, oriented x3 and CN's II-XI intact bilaterally Skin Skin: no rashes or lesions noted Extremities Pulses: Normal: Right Posterior Tibial Pulse, Left Posterior Tibial Pulse, Right Radial Pulse, Left Radial Pulse Lower Extremity Edema: None: Bilateral Psych Psychological: normal affect Assessment & Plan Problems 1. Hypertrophic obstructive cardiomyopathy (HOCM) I42.1 2. Essential hypertension I10 3. History of mitral valve repair Z98.890 Septal myectomy and mitral valve repair with Annuloplasty with a #33 Spear band, Bilateral pulmonary vein isolation with multiple occasions of the Atricure radiofrequency clamp and clipping of the left atrial appendage with a 50mm Atricure clip 4. Persistent atrial fibrillation I48.19 5. Hyperlipidemia, unspecified hyperlipidemia type E78.5 Plan - SAM Biggs Pt has had a therapeutic INR for at least 30 days. She will undergo a cardioversion. She will follow up in the office next week for an EKG. If she does not maintain SR will consider EP referral. Supplemental Information Transthoracic echocardiogram performed on 08-06-18 through the [facility] system. left ventricle was normal with an LVEF of 74%, there was postsurgical mitral valve findings with a Bernabe mitral valve annuloplasty ring with trivial mitral valve regurgitation. There was also, she had a resting LVOT gradient of 18 mmHg and with Valsalva maneuver a peak LVOT gradient of 21 mmHg and after a meal nitrate the peak LVOT gradient of 27 mmHg. During these maneuvers there was no change in her MR. Pharmacologic stress nuclear imaging study performed through the [facility] system on 11-05-15 at that time her perfusion study was listed as normal with no evidence of ischemia. Diagnostic cardiac catheterization performed at [facility] on 11-30-17. At that time her LV was normal with respect to systolic function and an LVEF of 65% with angiographically normal coronary arteries and a report of moderate mitral valve prolapse. Diagnostics Electrocardiogram 03/14/20 Chest X-Ray 11/08/19 Procedure Criteria Yes Elective The surgeon/proceduralist and patient have discussed in detail the risk of exposure to and/or potential harm posed by the COVID-19 virus with having a surgery/procedure at this time versus the risk of delaying the surgery/procedure. It is not possible to know either the risk of delaying the surgery or procedure or chance of getting an infection with perfect accuracy, but a joint decision was made between the patient and the surgeon/proceduralist to proceed at this time with the scheduled surgery/procedure as indicated on the consent form. <Arnold Bland - Last Filed: 04/24/20 08:20> History and Physical Addendum: Date: 04-24-2020 I have re-examined the patient. There are no clinical changes since date of exam.
--- NOTE | 2020-04-24 12:44 | PCM.OP.PRO ---
Problem List (1) Long-term use of high-risk medication Status: Acute (2) B-cell lymphoma Status: Chronic (3) Bladder cancer Status: Chronic Qualifiers: Bladder location: unspecified site Qualified Code(s): C67.9 - Malignant neoplasm of bladder, unspecified (4) Bone metastasis Status: Chronic (5) Chronic diastolic heart failure Status: Chronic (6) Chronic obstructive pulmonary disease Status: Chronic (7) Hypertrophic obstructive cardiomyopathy (HOCM) Status: Chronic (8) Osteoporosis Status: Chronic (9) Persistent atrial fibrillation Status: Chronic (10) Prolonged QT syndrome Status: Chronic (11) History of mitral valve repair Status: Resolved Comment: Septal myectomy and mitral valve repair with Annuloplasty with a #33 Spear band, Bilateral pulmonary vein isolation with multiple occasions of the Atricure radiofrequency clamp and clipping of the left atrial appendage with a 50mm Atricure clip (12) History of ventricular septal myectomy Status: Resolved Comment: Septal myectomy and mitral valve repair with Annuloplasty with a #33 Spear band, Bilateral pulmonary vein isolation with multiple occasions of the Atricure radiofrequency clamp and clipping of the left atrial appendage with a 50mm Atricure clip Procedure Report Date of Procedure: 04/24/20 - Conscious sedation CONSCIOUS SEDATION REPORT BRIEF HISTORY OF PRESENT ILLNESS: The patient is an 80-year-old female who presented to [facility] for an elective outpatient cardioversion due to underlying atrial fibrillation. The patient reports no PO intake since midnight. The patient does not have a history of obstructive sleep apnea. The patient reports a history of smoking and COPD. The patient denies any recent constitutional symptoms such as fevers, chills, nausea or vomiting. The patient denies previous anesthetic complications. Patient last reported ejection fraction was 74%. Patient's INR on the day of the procedure was 2.7. PHYSICAL EXAMINATION: VITAL SIGNS: Reviewed and were acceptable. GENERAL: The patient is a female, in no apparent distress, speaking in full sentences. HEENT: Normocephalic, atraumatic. Mucous membranes are moist and pink. Good mouth opening noted. Trachea is midline. Good neck mobility. MP II CHEST: S1, S2 irregularly irregular. No murmurs, rubs or gallops were noted. LUNGS: Clear to auscultation bilaterally without appreciable wheezes, rales or rhonchi. ABDOMEN: Soft, nontender, nondistended. Positive bowel sounds. EXTREMITIES: There is no clubbing, cyanosis or edema. ASA Class: II DESCRIPTION OF PROCEDURE: After confirmation of informed consent, the patient's anesthesia plan was reviewed in detail. Propofol was chosen. Risks and benefits were reviewed and the patient agreed to proceed. At 12:03 PM, the patient was given 40 mg of propofol. The patient achieved an appropriate level of sedation and received 1 attempt synchronized cardioversion, at [address] Bland at the bedside. This was successful in achieving normal sinus rhythm. The patient was monitored until 12:15 PM, at which time the patient reached their baseline mental status and function. The patient tolerated the procedure well. COMPLICATIONS: None ESTIMATED BLOOD LOSS: None RECOMMENDATIONS: Okay to recover in usual fashion. [id number]: Other Procedure See Report - [id number] -12 minutes conscious sedation
[2020-04-24 12:56] LABS: Prothrombin Time Fingerstick 31.5 SEC (11.9-14.4)
--- NOTE | 2020-04-24 13:03 | CARDIOVERS_ITS ---
Cardioversion Cardioversion: Date: 04-24-2020 Procedure: Synchronized Biphasic DC Cardioversion Indications: Atrial flutter Consent: Per the Patient Anesthesia: per Dr. Robison of pulmonology and critical care medicine with propofol 40 mg IV push total Procedure: Synchronized Biphasic DC Cardioversion: 200 J x1: Result: Sinus rhythm; PACs Complications: no apparent complications This note was generated with [employer] software. It may contain incorrect words, spelling, and punctuation that were not noted in checking the note before signing.
== END 2020-04-24 13:16 | disposition home or self-care (01) ==
LOC: CLSP 10:25
PROVIDERS: PCP Internal Medicine; Referring Provider Internal Medicine Cardiovascular Disease; Visit Provider Internal Medicine Cardiovascular Disease
DX: I48.19 Other persistent atrial fibrillation (principal); I48.92 Unspecified atrial flutter; I42.1 Obstructive hypertrophic cardiomyopathy; I11.0 Hypertensive heart disease with heart failure; I50.32 Chronic diastolic (congestive) heart failure; C85.10 Unspecified B-cell lymphoma, unspecified site; C67.9 Malignant neoplasm of bladder, unspecified; C79.51 Secondary malignant neoplasm of bone; J44.9 Chronic obstructive pulmonary disease, unspecified; E78.5 Hyperlipidemia, unspecified; M81.0 Age-related osteoporosis without current pathological fracture; Z79.01 Long term (current) use of 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; Z79.899 Other long term (current) drug therapy; Z87.891 Personal history of nicotine dependence; Z98.890 Other specified postprocedural states
CPT/HCPCS: 36416; 85610; 92960; 93005; J7040

== ENCOUNTER 2020-05-31 13:10 | Outpatient (RCR) | payer MEDICARE, SELFPAY ==
[2020-05-01 15:50] VITALS: BMI 24.7
[2020-05-08 12:40] LABS: Prothrombin Time Fingerstick 34.5 SEC (11.9-14.4)
[2020-05-31 13:42] LABS: International Normalized Ratio 2.5; Prothrombin Time (Protime)PT. 26.7 SECONDS (11.7-14.9)
[2020-05-31 14:20] LABS: T4 Total, Thyroxin 14.8 ug/dL (4.8-13.9); Thyroid Stim Hormone (TSH) 0.92 uIU/mL (0.358-3.74)
== END 2020-05-31 18:00 | disposition home or self-care (01) ==
LOC: LAB 13:10
PROVIDERS: Family Provider Internal Medicine; PCP Internal Medicine; Referring Provider Internal Medicine Cardiovascular Disease; Visit Provider Internal Medicine Cardiovascular Disease
DX: I48.19 Other persistent atrial fibrillation (principal); Z79.01 Long term (current) use of 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
CPT/HCPCS: 36415; 36416; 84436; 84443; 85610

== ENCOUNTER 2020-07-31 15:56 | Outpatient (RCR) | payer MEDICARE, SELFPAY ==
[2020-05-01 15:50] VITALS: BMI 24.7
[2020-07-05 13:48] LABS: International Normalized Ratio 2.7; Prothrombin Time (Protime)PT. 28.1 SECONDS (11.7-14.9)
[2020-07-05 13:54] LABS: Thyroid Stim Hormone (TSH) 1.09 uIU/mL (0.358-3.74)
[2020-07-31 17:34] LABS: International Normalized Ratio 2.7
[2020-07-31 18:09] LABS: T4 Total, Thyroxin 16.1 ug/dL (4.8-13.9); Thyroid Stim Hormone (TSH) 0.83 uIU/mL (0.358-3.74)
== END 2020-07-31 18:00 | disposition home or self-care (01) ==
LOC: LAB 15:56
PROVIDERS: Family Provider Internal Medicine; PCP Internal Medicine; Referring Provider Internal Medicine Cardiovascular Disease; Visit Provider Internal Medicine Cardiovascular Disease
DX: I48.19 Other persistent atrial fibrillation (principal); Z79.01 Long term (current) use of 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; Z79.899 Other long term (current) drug therapy; E78.5 Hyperlipidemia, unspecified; I48.92 Unspecified atrial flutter; I45.81 Long QT syndrome
CPT/HCPCS: 36415; 84436; 84443; 85610

== ENCOUNTER 2020-08-27 13:48 | Outpatient (RCR) | payer MEDICARE, SELFPAY ==
[2020-05-01 15:50] VITALS: BMI 24.7
[2020-08-27 13:55] LABS: Prothrombin Time Fingerstick 33.3 SEC (11.9-14.4)
== END 2020-08-27 18:00 | disposition home or self-care (01) ==
LOC: LAB 13:48
PROVIDERS: Family Provider Internal Medicine; PCP Internal Medicine; Referring Provider Internal Medicine Cardiovascular Disease; Visit Provider Internal Medicine Cardiovascular Disease
DX: I48.19 Other persistent atrial fibrillation (principal); Z79.01 Long term (current) use of 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
CPT/HCPCS: 36416; 85610

== ENCOUNTER → 2020-09-19 13:51 | Outpatient (CLI) | payer MEDICARE, SELFPAY ==
[2020-09-10 14:35] VITALS: BMI 23.9
--- NOTE | 2020-09-19 13:53 | ECHOD_ITS ---
Reason For Study: s/p MV Repair Procedure This was a 2D Doppler, Color Flow transthoracic echocardiogram. The study was technically difficult. Exam performed in department. Left Ventricle Normal LV size. Sigmoid septum. Mild segmental systolic dysfunction (see wall motion). The estimated ejection fraction is 45 %. Post operative septal motion. Unable to assess diastolic dysfunction. Infero-Basal: Hypokinetic. Basal inferoseptal: Hypokinetic. Basal anteroseptal: Hypokinetic. Mid- Inferior: Hypokinetic. Mid-inferoseptal : Hypokinetic. Mid-anteroseptal : Hypokinetic. Inferior [place] : Hypokinetic. Septal [place] : Hypokinetic. Right Ventricle Normal size and thickness. Normal systolic function. Atria The left atrium is severely enlarged. The right atrium is moderately enlarged. No doppler evidence for ASD. Mitral Valve An annuloplasty ring is noted in the mitral position. Trivial transvalvular insufficiency of the mitral valve. Tricuspid Valve Normal tricuspid valve. Moderate (2+) eccentric tricuspid valve insufficiency. Right ventricular systolic pressure estimated to be 32 mmHg. Aortic Valve Trisinus/trileaflet aortic valve. Moderate focal aortic valve calcification. Pulmonic Valve The pulmonic valve is not well visualized. Great Vessels The aortic root is not well visualized. Pericardium/Pleural No pericardial effusion. MMode/2D Measurements & Calculations LVIDd: 4.0 cm IVSd: 1.6 cm LA dimension: 4.9 cm LVIDs: 3.7 cm LVPWd: 1.2 cm RVDd: 3.4 cm FS: 7.2 % LAV(MOD-bp): 120.2 ml LA A4 area: 30.8 cm2 RA A4 area: 18.5 cm2 LAV(MOD-bp) Indexed: 67.9 ml/m2 LAV(MOD-sp2): 122.5 ml LAV(MOD-sp4): 117.5 ml Doppler Measurements & Calculations MV E max amanda: 90.7 cm/sec Ao V2 max: 66.5 cm/sec LV V1 max: 59.7 cm/sec Ao max P.8 mmHg LV V1 max P.5 mmHg PA V2 max: 69.5 cm/sec TR max amanda: 269.5 cm/sec TR max P.1 mmHg Interpretation Summary The study was technically difficult. Mild segmental systolic dysfunction (see wall motion). The estimated ejection fraction is 45 %. Post operative septal motion. Sigmoid septum. The left atrium is severely enlarged. The right atrium is moderately enlarged. An annuloplasty ring is noted in the mitral position. Trivial transvalvular insufficiency of the mitral valve. Moderate (2+) eccentric tricuspid valve insufficiency. Moderate focal aortic valve calcification. Right ventricular systolic pressure estimated to be 32 mmHg. Unable to assess diastolic dysfunction. Ordering Physician: Arnold Bland Referring Physician: Cheyanne oHlt M.D. Performed By: Hunter Cam RCS
== END ==
PROVIDERS: PCP Internal Medicine; Referring Provider Internal Medicine Cardiovascular Disease; Visit Provider Internal Medicine Cardiovascular Disease
DX: I48.19 Other persistent atrial fibrillation (principal); Z79.899 Other long term (current) drug therapy; I42.1 Obstructive hypertrophic cardiomyopathy; Z98.890 Other specified postprocedural states; E78.5 Hyperlipidemia, unspecified; I10 Essential (primary) hypertension; Z79.01 Long term (current) use of 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
CPT/HCPCS: 93306

== ENCOUNTER 2020-10-01 12:54 | Outpatient (RCR) | payer MEDICARE, SELFPAY ==
[2020-05-01 15:50] VITALS: BMI 24.7
[2020-09-10 14:35] VITALS: BMI 23.9
[2020-10-01 13:05] LABS: Prothrombin Time Fingerstick 38.9 SEC (11.9-14.4)
[2020-10-01 13:35] LABS: Prothrombin Time (Protime)PT. 30.7 SECONDS (11.7-14.9)
== END 2020-10-01 18:00 | disposition home or self-care (01) ==
LOC: LAB 12:54
PROVIDERS: Family Provider Internal Medicine; PCP Internal Medicine; Referring Provider Internal Medicine Cardiovascular Disease; Visit Provider Internal Medicine Cardiovascular Disease
DX: I48.19 Other persistent atrial fibrillation (principal); Z79.01 Long term (current) use of 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
CPT/HCPCS: 36415; 36416; 85610

== ENCOUNTER 2020-10-01 14:35 | Emergency (ER) | payer MEDICARE, SELFPAY ==
[2020-09-10 14:35] VITALS: BMI 23.9
[2020-10-01 14:36] VITALS: BP 132/48; PULSE 67; RESP 15; TEMP 36; O2SAT 96; BMI 24.1
--- NOTE | 2020-10-01 14:51 | CT_ITS ---
STUDY: CT BRAIN WITHOUT CONTRAST REASON FOR EXAM: Female, 80 years old. FELL and HIT NOSE ON COUMADIN RADIATION DOSAGE (If Supplied By Facility): CTDIvol = ( 44.99 ) mGy, DLP = ( 812.98 ) mGycm TECHNIQUE: Transaxial CT imaging of the brain was performed without administration of intravenous contrast material. Individualized dose optimization techniques were used for this CT. COMPARISON: No relevant priors. FINDINGS: Normal soft tissue structures. Normal calvarium. There is mild cerebral atrophy with widening of the extra-axial spaces and ventricular dilatation. There are areas of decreased attenuation within the white matter tracts of the supratentorial brain, consistent with microvascular disease changes. Normal basal ganglia and thalami. Normal brainstem. Normal cerebellum. There is no intracranial hemorrhage. There are no findings of an acute ischemic infarction. Normal visualized paranasal sinuses. There is right paranasal soft tissue swelling with nondisplaced nasal fracture (image 5 series 4). CT/Brain/Head without Contrast IMPRESSION: 1. No acute intracranial hemorrhage or mass effect. 2. Nondisplaced right nasal fracture. 3. Central parenchymal volume loss. White matter changes that are nonspecific but most commonly associated with chronic small vessel ischemic disease. Electronically Signed: Miguel Stratton MD ([place]) at 15:12 EST , Service support ,
--- NOTE | 2020-10-01 14:53 | ED.VIS.GEN ---
History of Present Illness Chief Complaint: Head Injury Informant: Patient Narrative: 80-year-old female on Coumadin for atrial fibrillation sustained a fall striking her nose on the ground. She notes a skin avulsion to the bridge of her nose. She notes that she had a bloody nose at that getting better. She denies any headache. No loss of consciousness. No neck pain. She denies any other injuries. Tetanus up-to-date. 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 Monson, Septal myectomy, mitral valve repair, left atrial appendage clipping. Smoking Status: Former smoker - Family History Maternal Family History: Family History (Last Reviewed 09/10/20 @ 14:36 by Portia Guevara) Father Heart disease Hypertension Family History: Reports: Heart Disease, Hypertension Paternal Family History: Family History (Last Reviewed 09/10/20 @ 14:36 by Portia Guevara) Father Heart disease Hypertension Family History: Reports: Heart Disease, Hypertension Review of Systems General: Denies: Chills, Fever, Sweats Eyes: Denies: Visual changes - bilaterally, Diplopia ENT: Reports: - - Nasal trauma. Denies: Rhinorrhea, Sore throat Cardiovascular: Denies: Chest pain, Palpitations Respiratory: Denies: Dyspnea, Cough, Dyspnea on exertion Gastrointestinal: Denies: Abdominal pain, Nausea, Vomiting, Diarrhea, Melena, Hematochezia Genitourinary: Denies: Dysuria, Hematuria, Frequency Musculoskeletal: Denies: Back pain, Extremity Pain Skin: Denies: Rash, Wounds Neurological: Denies: Headache, Weakness, Numbness Physical Exam Vital Signs/Narrative: Vital Signs Temp Pulse Resp BP Pulse Ox 10/01/20 14:36 96.8 F L 67 15 132/48 H 96 Inital Vital Signs reviewed: Yes General: Well nourished, Well developed, No Acute Distress Head: Normocephalic, Trauma - There is 1/2 cm skin avulsion to the bridge of her nose. Eyes: Perrl, EOMI ENT: Moist mucous membranes, No rhinorrhea, - - There is no septal hematoma. Neck: Supple, Nontender Cardiovascular: Regular rate, Regular rhythm, No murmurs Respiratory: No distress, CTA bilaterally, Chest nontender Abdomen: Soft, Nontender, Nondistended, Normal bowel sounds Back: Nontender, Normal Inspection Extremities: Nontender, No edema Skin: Normal color, No rash Neurological: Alert, Oriented x3, Cranial nerves II-XII grossly intact, Normal Strength, Normal Sensation Psychological: Normal affect, Normal Mood Diagnostic/Tx/Re-eval Clinical Impression(s) from Imaging Studies Brain CT 10/01/20 14:51 IMPRESSION: 1. No acute intracranial hemorrhage or mass effect. 2. Nondisplaced right nasal fracture. 3. Central parenchymal volume loss. White matter changes that are nonspecific but most commonly associated with chronic small vessel ischemic disease. Electronically Signed: Miguel Stratton MD ([place]) at 15:12 EST , Service support , - Medical Decision Making CT demonstrates no intracranial hemorrhage. There is a nondisplaced nasal fracture. Wound local wound care discussed with the patient. Follow-up as needed return if worsening or concerns ED Disposition - Plan for ED Patient: Disposition: Home or Assisted Living Diagnosis: Nasal bone fracture, Anticoagulated on Coumadin Instructions: ED Nose Fracture, with X-Ray, ED Head Injury (Adult) Referrals: Cheyanne Holt MD [Primary Care Provider] - As Needed
== END 2020-10-01 15:32 | disposition home or self-care (01) ==
PROVIDERS: Emergency Provider Emergency Medicine; PCP Internal Medicine
DX: S02.2XXA Fracture of nasal bones, initial encounter for closed fracture (principal); I48.19 Other persistent atrial fibrillation; Z79.01 Long term (current) use of 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; Z87.891 Personal history of nicotine dependence; W19.XXXA Unspecified fall, initial encounter
CPT/HCPCS: 36415; 36416; 70450; 85610; 99282

== ENCOUNTER 2020-10-29 14:06 | Outpatient (RCR) | payer MEDICARE, SELFPAY ==
[2020-10-18 15:00] LABS: Prothrombin Time Fingerstick 45.5 SEC (11.9-14.4)
[2020-10-18 15:22] LABS: International Normalized Ratio 3.3
[2020-10-22 13:31] LABS: Prothrombin Time Fingerstick 37.2 SEC (11.9-14.4)
== END 2020-10-29 18:00 | disposition home or self-care (01) ==
LOC: LAB 14:06
PROVIDERS: Family Provider Internal Medicine; PCP Internal Medicine; Referring Provider Internal Medicine Cardiovascular Disease; Visit Provider Internal Medicine Cardiovascular Disease
DX: I48.19 Other persistent atrial fibrillation (principal); Z79.01 Long term (current) use of 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
CPT/HCPCS: 36415; 36416; 85610

== ENCOUNTER 2020-11-19 13:32 | Outpatient (RCR) | payer MEDICARE, SELFPAY ==
[2020-11-12 13:11] LABS: Prothrombin Time Fingerstick 26.7 SEC (11.9-14.4)
[2020-11-19 13:46] LABS: Prothrombin Time Fingerstick 28.5 SEC (11.9-14.4)
== END 2020-11-19 18:00 | disposition home or self-care (01) ==
LOC: LAB 13:32
PROVIDERS: Family Provider Internal Medicine; PCP Internal Medicine; Referring Provider Internal Medicine Cardiovascular Disease; Visit Provider Internal Medicine Cardiovascular Disease
DX: I48.19 Other persistent atrial fibrillation (principal); Z79.01 Long term (current) use of 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
CPT/HCPCS: 36416; 85610

== ENCOUNTER 2020-11-23 09:52 | Outpatient (RCR) | payer MEDICARE, SELFPAY | END 2020-11-23 23:59 | LOC: IMMUN 09:52 | PROVIDERS: PCP Internal Medicine; Visit Provider Family Medicine | DX: Z23 Encounter for immunization (principal) | CPT/HCPCS: 0011A; 0012A ==

== ENCOUNTER 2020-11-26 08:10 | Emergency (ER) | payer MEDICARE, SELFPAY ==
[2020-11-26 08:12] VITALS: BP 161/99; PULSE 89; RESP 16; TEMP 35.8; O2SAT 96; BMI 23.3
--- NOTE | 2020-11-26 08:30 | CT_ITS ---
STUDY: CT ABDOMEN AND PELVIS WITH CONTRAST REASON FOR EXAM: Female, 80 years old. LEFT ABD PAIN, RECTAL BLEEDING/DIARRHEA, HX-COLITIS, ELEV WBC, BLADDER CA WITH BONE METS, CHF, HTN, COPD, EMPHYSEMA RADIATION DOSAGE (If Supplied By Facility): CTDIvol = ( 12.3 ) mGy, DLP = ( 633.48 ) mGycm TECHNIQUE: Transaxial images were obtained from the dome of the diaphragm to the symphysis pubis without oral contrast. IV 100mL Isovue-300 was administered. Sagittal and coronal images were reconstructed. Individualized dose optimization techniques were used for this CT. COMPARISON: Comparison is made with prior examination dated 02/17/2017. FINDINGS: Minimal scarring at the lung bases. Coronary artery calcification. Stable 2.6 cm x 2.5 cm cyst in the posterior aspect of the right lobe of the liver. Fatty infiltration of the liver. There are multiple gallstones. Multiple small splenic cysts. Normal pancreas. There is a small, circumscribed, smooth, low attenuation left adrenal mass, consistent with an adrenal adenoma. It measures to size by 1.6 cm. Normal right adrenal gland. Normal right kidney. Small left renal cysts. Normal visualized stomach. Normal small intestine. There is diverticulosis, with thickening of the colon wall, and pericolonic inflammation changes consistent with acute diverticulitis. The appendix is visualized and appears normal. There is diffuse atherosclerotic calcification of the abdominal aorta, without a demonstrated aneurysm. Normal inferior vena cava. Normal retroperitoneum. Normal urinary bladder. Calcified fibroid uterus. Normal abdominal wall. There are degenerative changes of the visualized lumbar spine. Small sclerotic lesions seen throughout the lumbar vertebrae. Stable grade 1 anterior listhesis of L4 on L5 without spondylolysis. CT/Abdomen/Pelvis W IV Cont ONLY IMPRESSION: Findings in keeping with a sigmoid diverticulitis without evidence of abscess formation. Stable hepatic and renal cysts. Splenic cysts. Stable sclerotic lesions in the lumbar vertebrae. Multiple gallstones. Electronically Signed: Bryn Capellan MD at 9:45 EST , Service support ,
--- NOTE | 2020-11-26 08:31 | ED.DCSUM_ITS ---
History of Present Illness Chief Complaint: GI Bleed Informant: Patient Narrative: 80-year-old female presents for the evaluation of lower GI bleeding. Patient tells me she has a history of colitis for several years. She was supposed to see a survey instrument operator but the appointment was canceled and moved to next month. Over the past couple days she has had increasing diarrhea and bright red bleeding from the rectum. She states she has significant hemorrhoidal disease and is not sure if it is coming from her colitis or from her hemorrhoids. She notes the occasional pain on the left side of her abdomen. She has never had a colonoscopy or been given a formal type of colitis. The bleeding was concerning her as she is on Coumadin and felt that she should be seen before her gastroenterology appointment. She is on Coumadin for atrial fibrillation. - Past Medical History (1) B-cell lymphoma Status: Chronic (2) Bladder cancer Status: Chronic (3) Bone metastasis Status: Chronic (4) Chronic diastolic heart failure Status: Chronic (5) Chronic obstructive pulmonary disease Status: Chronic (6) Essential hypertension Status: Chronic (7) Hyperlipidemia Status: Chronic (8) Hypertrophic obstructive cardiomyopathy (HOCM) Status: Chronic (9) Irritable bowel syndrome Status: Chronic (10) LBBB (left bundle branch block) Status: Chronic (11) senior care current use of anticoagulant Status: Chronic (12) Persistent atrial fibrillation Status: Chronic (13) History of mitral valve repair Status: Resolved Comment: Septal myectomy and mitral valve repair with Annuloplasty with a #33 Spear band, Bilateral pulmonary vein isolation with multiple occasions of the Atricure radiofrequency clamp and clipping of the left atrial appendage with a 50mm Atricure clip (14) History of ventricular septal myectomy Status: Resolved Comment: Septal myectomy and mitral valve repair with Annuloplasty with a #33 Spear band, Bilateral pulmonary vein isolation with multiple occasions of the Atricure radiofrequency clamp and clipping of the left atrial appendage with a 50mm Atricure clip Past Medical History - Allergies and Home Meds Allergies/Adverse Reactions: Allergies allopurinol Allergy (Verified 11/26/20 08:12) Rash tramadol Adverse Reaction (Verified 11/26/20 08:12) dizzy Primary Care Physician: Cheyanne Holt MD [Primary Care Provider] - Surgical History: - - Bladder surgery per Dr. Monson, Septal myectomy, mitral valve repair, left atrial appendage clipping. Smoking Status: Former smoker Drugs: None - Family History Maternal Family History: Family History (Last Reviewed 09/10/20 @ 14:36 by Portia Guevara) Father Heart disease Hypertension Family History: Reports: Heart Disease, Hypertension Paternal Family History: Family History (Last Reviewed 09/10/20 @ 14:36 by Portia Guevara) Father Heart disease Hypertension Family History: Reports: Heart Disease, Hypertension Review of Systems General: Denies: Chills, Fever, Sweats Eyes: Denies: Visual changes - bilaterally, Diplopia ENT: Denies: Rhinorrhea, Sore throat Cardiovascular: Denies: Chest pain, Palpitations Respiratory: Denies: Dyspnea, Cough, Dyspnea on exertion Gastrointestinal: Reports: Abdominal pain, Diarrhea, Hematochezia. Denies: Nausea, Vomiting, Melena Genitourinary: Denies: Dysuria, Hematuria, Frequency Musculoskeletal: Denies: Back pain, Extremity Pain Skin: Denies: Rash, Wounds Neurological: Denies: Headache, Weakness, Numbness Physical Exam Vital Signs/Narrative: Vital Signs Temp Pulse Resp BP Pulse Ox 11/26/20 08:12 96.4 F L 89 16 161/99 H 96 Inital Vital Signs reviewed: Yes General: Well nourished, Well developed, No Acute Distress Head: Normocephalic, Atraumatic Eyes: Perrl, EOMI ENT: Moist mucous membranes, No rhinorrhea Neck: Supple, Nontender Cardiovascular: Regular rate, Regular rhythm, No murmurs Respiratory: No distress, CTA bilaterally, Chest nontender Abdomen: Soft, Nontender, Nondistended, Normal bowel sounds Rectal: Nontender, - - External hemorrhoidal disease present. No gross blood on GINA Back: Nontender, Normal Inspection Extremities: Nontender, No edema Skin: Normal color, No rash Neurological: Alert, Oriented x3, Cranial nerves II-XII grossly intact, Normal Strength, Normal Sensation Psychological: Normal affect, Normal Mood Diagnostic/Tx/Re-eval Clinical Impression(s) from Imaging Studies Abdomen/Pelvis CT 11/26/20 08:30 IMPRESSION: Findings in keeping with a sigmoid diverticulitis without evidence of abscess formation. Stable hepatic and renal cysts. Splenic cysts. Stable sclerotic lesions in the lumbar vertebrae. Multiple gallstones. Electronically Signed: Bryn Capellan MD at 9:45 EST , Service support , Laboratory Last Values WBC 11.3 K/mm3 (4.4-11.0) H 11/26/20 08:22 RBC 6.11 M/mm3 (4.2-5.4) H 11/26/20 08:22 Hgb 16.2 g/dL (12.0-15.0) H 11/26/20 08:22 Hct 51.2 % (37-47) H 11/26/20 08:22 MCV 83.8 fL (81-99) 11/26/20 08:22 MCH 26.5 pg (27.0-32.0) L 11/26/20 08: MCHC 31.6 g/dL (32-36) L 11/26/20 08: RDW Std Deviation 44.8 fl (35.1-43.9) H 11/26/20 08:22 RDW Coeff of Neelima 14.8 % (11.6-14.6) H 11/26/20 08:22 Plt Count 321 K/mm3 (150-450) 11/26/20 08: MPV 10.9 fl (6.2-12.0) 11/26/20 08:22 Immature Gran % (Auto) 0.400 % (0.0-0.9) 11/26/20 08: Neut % (Auto) 69.5 % (47-70) 11/26/20 08:22 Lymph % (Auto) 21.4 % (19-41) 11/26/20 08:22 Sanders % (Auto) 6.3 % (0-10) 11/26/20 08:22 Eos % (Auto) 1.3 % (0-5) 11/26/20 08:22 Baso % (Auto) 1.1 % (0-1) H 11/26/20 08:22 Absolute Neuts (auto) 7.8 X10^3/uL (2.0-7.7) H 11/26/20 08:22 Absolute Lymphs (auto) 2.42 X10^3/uL (0.83-4.51) 11/26/20 08:22 Nucleated RBC % 0 % (0-5) 11/26/20 08:22 PT 23.7 SECONDS (11.7-14.9) H 11/26/20 08:22 INR 2.2 11/26/20 08:22 Sodium 143 mmol/L (136-145) 11/26/20 08:22 Potassium 3.8 mmol/L (3.5-5.1) 11/26/20 08:22 Chloride 106 mmol/L (98-107) 11/26/20 08:22 Carbon Dioxide 28.0 mmol/L (21.0-32.0) 11/26/20 08:22 Anion Gap 9 (5-15) 11/26/20 08:22 BUN 18 mg/dL (7-18) 11/26/20 08:22 Creatinine 1.12 mg/dL (0.55-1.02) H 11/26/20 08:22 Estim Creat Clear Calc 36.88 ml/min 11/26/20 08:22 Est GFR (MDRD) Af Amer 60 mL/min (>60) 11/26/20 08:22 Est GFR (MDRD) Non-Af 50 mL/min (>60) L 11/26/20 08:22 BUN/Creatinine Ratio 16.1 RATIO (10-20) 11/26/20 08:22 Glucose 140 mg/dL (74-106) H 11/26/20 08:22 Lactic Acid 2.1 mmol/L (0.4-1.9) H* 11/26/20 08:40 Calcium 9.4 mg/dL (8.5-10.1) 11/26/20 08:22 Total Bilirubin 0.50 mg/dL (0.20-1.00) 11/26/20 08:22 AST 15 U/L (15-37) 11/26/20 08:22 ALT 18 U/L (13-56) 11/26/20 08:22 Alkaline Phosphatase 102 U/L (45-117) 11/26/20 08:22 Total Protein 7.9 g/dL (6.4-8.2) 11/26/20 08:22 Albumin 4.0 g/dL (3.2-5.0) 11/26/20 08:22 Globulin 3.9 g/dL (2.2-4.2) 11/26/20 08:22 Albumin/Globulin Ratio 1.0 RATIO (0.9-2.4) 11/26/20 08:22 Lipase 131 U/L (73-393) 11/26/20 08:22 - Medical Decision Making Patient has a mild leukocytosis. Hemoglobin is stable. CT is in keeping with sigmoid diverticulitis. She will be started on Augmentin as well as [place] as needed for pain Zofran as needed for vomiting. Follow-up will be with her doctor if not improving return if worsening and also follow-up with gastroenterology as scheduled. ED Disposition - Plan for ED Patient: Disposition: Home or Assisted Living Diagnosis: Lower GI bleeding, Acute diverticulitis Instructions: ED Diverticulitis Prescriptions: Amox/Clavulanate Tablet [Augmentin Tablet] 875 mg PO Q12H #20 tab Prescription Printed Hydrocodone Bitart/Apap 5-325 [[place] 5MG-325MG] 1 tab PO Q6H PRN PRN 3 Days #10 tab PRN Reason: Pain Prescription Printed Ondansetron [Zofran Odt] 4 mg PO Q6H PRN PRN #10 tab PRN Reason: Nausea Prescription Printed Referrals: Cheyanne Holt MD [Primary Care Provider] - 3-5 Days if not improving
[2020-11-26 08:37] LABS: Absolute Lymphocyte Count 2.42 X10^3/uL (0.83-4.51); Absolute Neutrophil Count 7.8 X10^3/uL (2.0-7.7); Basophil# 0.12 X10^3/uL; Basophil% 1.1 % (0-1); Eosinophil# 0.15 X10^3/uL; Eosinophils% 1.3 % (0-5); Hematocrit 51.2 % (37-47); Hemoglobin 16.2 g/dL (12.0-15.0); Lymphocyte # 2.42 X10^3/ul (4.0); Lymphocyte % 21.4 % (19-41); Mean Corp Hgb Conc 31.6 g/dL (32-36); Mean Corpuscular Hgb 26.5 pg (27.0-32.0); Mean Corpuscular Volume 83.8 fL (81-99); Mean Platelet Vol. 10.9 fl (6.2-12.0); Monocyte# 0.71 X10^3/uL; Monocyte% 6.3 % (0-10); NRBC Flagged by Analyzer 0 % (0-5); Neutrophil # 7.84 X10^3/uL (2.7-7.7); Neutrophil % 69.5 % (47-70); Platelet Count 321 K/mm3 (150-450); RBC Distribution Width CV 14.8 % (11.6-14.6); RBC Distribution Width SD 44.8 fl (35.1-43.9); Red Blood Count 6.11 M/mm3 (4.2-5.4); White Blood Count 11.3 K/mm3 (4.4-11.0)
[2020-11-26 08:48] LABS: International Normalized Ratio 2.2; Prothrombin Time (Protime)PT. 23.7 SECONDS (11.7-14.9)
[2020-11-26 08:53] LABS: AST(SGOT) 15 U/L (15-37); Alanine Aminotransfer ALT/SGPT 18 U/L (13-56); Alkaline Phosphatase 102 U/L (45-117); Anion Gap 9 (5-15); BUN 18 mg/dL (7-18); BUN/Creat Ratio 16.1 RATIO (10-20); Calcium,Total 9.4 mg/dL (8.5-10.1); Chloride 106 mmol/L (98-107); Creatinine, Serum 1.12 mg/dL (0.55-1.02); EST Glomerular Filtration Rate 50 mL/min (>60); Est Glom Filt Rate - Afr Amer 60 mL/min (>60); Estimated Creatinine Clearance 36.88 ml/min; Globulin 3.9 g/dL (2.2-4.2); Glucose 140 mg/dL (74-106); Lipase 131 U/L (73-393); Potassium 3.8 mmol/L (3.5-5.1); Protein, Total 7.9 g/dL (6.4-8.2); Sodium Level 143 mmol/L (136-145)
[2020-11-26 09:24] LABS: Lactic Acid 2.1 mmol/L (0.4-1.9)
[2020-11-26 10:13] VITALS: BP 148/87; PULSE 74; RESP 18; O2SAT 99
[2020-11-26 12:52] LABS: Reflex Lactate? Y
== END 2020-11-26 10:14 | disposition home or self-care (01) ==
PROVIDERS: Emergency Provider Emergency Medicine; PCP Internal Medicine
DX: K57.33 Diverticulitis of large intestine without perforation or abscess with bleeding (principal); K64.9 Unspecified hemorrhoids; K58.9 Irritable bowel syndrome, unspecified; I48.19 Other persistent atrial fibrillation; I11.0 Hypertensive heart disease with heart failure; I50.32 Chronic diastolic (congestive) heart failure; I42.1 Obstructive hypertrophic cardiomyopathy; J44.9 Chronic obstructive pulmonary disease, unspecified; E78.5 Hyperlipidemia, unspecified; Z79.01 Long term (current) use of 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; Z79.899 Other long term (current) drug therapy; Z85.51 Personal history of malignant neoplasm of bladder; Z85.72 Personal history of non-Hodgkin lymphomas; Z87.891 Personal history of nicotine dependence
CPT/HCPCS: 74177; 80053; 83605; 83690; 85025; 85610; 99283; Q9967; A4216

== ENCOUNTER → 2020-12-06 14:43 | Outpatient (CLI) | payer MEDICARE, SELFPAY ==
[2020-12-06 14:00] VITALS: BMI 24.3
--- NOTE | 2020-12-06 14:46 | RAD_ITS ---
HISTORY: SOB, CHEST TIGHTNESS EXAM: XR Chest 2 Views: COMPARISON: November 08, 2019 FINDINGS: # of images incl. paperwork: 2 Sternal wires persists. Left atrial appendage clip remains. Prosthetic valve ring remains. Stimulation wires remain. Lungs are hyperexpanded with interstitial prominence especially within the left base consistent with chronic fibrotic lung disease Heart is not enlarged. No acute osseous pathology perceived. Pulmonary vascularity is distinct. No effusions. RAD/Chest PA and Lateral IMPRESSION: No acute cardiopulmonary disease. Obstructive lung disease. Previous valve replacement surgery.. at 2250 Reported and signed by: Jose Tyler MD Electronically Signed: Jose Tyler MD at 22:49 EST Tel , Service support ,
[2020-12-06 15:35] LABS: Absolute Neutrophil Count 8.8 X10^3/uL (2.0-7.7); Basophil# 0.07 X10^3/uL; Basophil% 0.6 % (0-1); Eosinophil# 0.04 X10^3/uL; Eosinophils% 0.4 % (0-5); Hematocrit 47.6 % (37-47); Hemoglobin 15.2 g/dL (12.0-15.0); Lymphocyte % 15.9 % (19-41); Mean Corp Hgb Conc 31.9 g/dL (32-36); Mean Corpuscular Hgb 26.5 pg (27.0-32.0); Mean Corpuscular Volume 83.1 fL (81-99); Mean Platelet Vol. 10.9 fl (6.2-12.0); Monocyte# 0.54 X10^3/uL; Monocyte% 4.8 % (0-10); NRBC Flagged by Analyzer 0 % (0-5); Neutrophil % 77.8 % (47-70); Platelet Count 259 K/mm3 (150-450); RBC Distribution Width CV 14.8 % (11.6-14.6); RBC Distribution Width SD 44.5 fl (35.1-43.9); Red Blood Count 5.73 M/mm3 (4.2-5.4); White Blood Count 11.3 K/mm3 (4.4-11.0)
[2020-12-06 16:01] LABS: BNP,B-Type NATRIURETIC PEPTIDE 262.4 pg/mL (0-100)
[2020-12-06 16:14] LABS: ALB/GLOB Ratio 1.2 RATIO (0.9-2.4); AST(SGOT) 18 U/L (15-37); Alanine Aminotransfer ALT/SGPT 23 U/L (13-56); Alkaline Phosphatase 92 U/L (45-117); Anion Gap 5 (5-15); BUN 15 mg/dL (7-18); BUN/Creat Ratio 15.1 RATIO (10-20); Calcium,Total 9.3 mg/dL (8.5-10.1); Chloride 107 mmol/L (98-107); Creatinine, Serum 0.99 mg/dL (0.55-1.02); EST Glomerular Filtration Rate 57 mL/min (>60); Est Glom Filt Rate - Afr Amer 69 mL/min (>60); Globulin 3.4 g/dL (2.2-4.2); Glucose 105 mg/dL (74-106); Protein, Total 7.4 g/dL (6.4-8.2); Sodium Level 139 mmol/L (136-145)
== END ==
PROVIDERS: PCP Internal Medicine; Referring Provider Nurse Practitioner Family; Visit Provider Nurse Practitioner Family
DX: R07.9 Chest pain, unspecified (principal); R06.00 Dyspnea, unspecified; I11.0 Hypertensive heart disease with heart failure; I50.32 Chronic diastolic (congestive) heart failure; I42.1 Obstructive hypertrophic cardiomyopathy; I44.7 Left bundle-branch block, unspecified; I48.19 Other persistent atrial fibrillation
CPT/HCPCS: 36415; 71046; 80053; 83880; 85025

== ENCOUNTER 2020-12-06 20:49 | Emergency (ER) | payer MEDICARE, SELFPAY ==
[2020-12-06 14:00] VITALS: BMI 24.3
[2020-12-06 20:50] VITALS: BP 133/80; PULSE 83; RESP 18; TEMP 36.6; O2SAT 96; BMI 26.5
--- NOTE | 2020-12-06 21:10 | ED.RN ---
patient refusing blood work or IV at this time until seen by the doctor
--- NOTE | 2020-12-06 21:22 | EKG12_ITS ---
Test Reason : CP Blood Pressure : / mmHG Vent. Rate : 093 BPM Atrial Rate : 094 BPM P-R Int : 000 ms QRS Dur : 134 ms QT Int : 448 ms P-R-T Axes : 000 -34 151 degrees QTc Int : 557 ms Atrial Flutter Left axis deviation Left bundle branch block Abnormal ECG Confirmed by RIVAS FORTUNE, AG ([id number]), video effects editor BRUCE EDDY ([id number]) on 12/07/2020 11:23:19 AM Referred By: Confirmed By:AG HATHAAWY MD
[2020-12-06] MEDS: Aspirin 81 MG TAB.CHEW 324 MG PO (21:35)
[2020-12-06 21:38] LABS: Absolute Lymphocyte Count 2.32 X10^3/uL (0.83-4.51); Absolute Neutrophil Count 7.1 X10^3/uL (2.0-7.7); Basophil# 0.09 X10^3/uL; Basophil% 0.9 % (0-1); Eosinophil# 0.11 X10^3/uL; Eosinophils% 1.1 % (0-5); Hematocrit 46.4 % (37-47); Hemoglobin 14.9 g/dL (12.0-15.0); Lymphocyte # 2.32 X10^3/ul (4.0); Lymphocyte % 22.5 % (19-41); Mean Corp Hgb Conc 32.1 g/dL (32-36); Mean Corpuscular Hgb 26.2 pg (27.0-32.0); Mean Corpuscular Volume 81.7 fL (81-99); Mean Platelet Vol. 10.8 fl (6.2-12.0); Monocyte# 0.69 X10^3/uL; Monocyte% 6.7 % (0-10); NRBC Flagged by Analyzer 0 % (0-5); Neutrophil # 7.05 X10^3/uL (2.7-7.7); Neutrophil % 68.4 % (47-70); Platelet Count 246 K/mm3 (150-450); RBC Distribution Width CV 14.8 % (11.6-14.6); RBC Distribution Width SD 44.2 fl (35.1-43.9); Red Blood Count 5.68 M/mm3 (4.2-5.4); White Blood Count 10.3 K/mm3 (4.4-11.0)
--- NOTE | 2020-12-06 21:39 | ED.VISSUMM ---
- ER Visit Summary Date of Service: 12/06/20 Chief Complaint: Chest pain History of Present Illness: The patient is a 80 F who presents with chest pain or shortness of breath that began today. Patient saw her social media executive today who did lab work. Patient states this was within normal limits. Patient states that tonight her breathing became worse. Patient states the tightness in her chest comes and goes. Patient states that comes on gradually last for approximately 5 minutes and then goes away gradually. Patient states nothing makes it worse and nothing makes it better. Patient does admit to some shortness of breath with the pain. Patient also admits to some palpitations. Patient states she does have a history of atrial fibrillation. Patient also admits to history of coronary artery disease and hypertension. Patient denies any PE risk factors. Physical Examination: Vital signs are stable. Patient is afebrile. Patient is in no acute distress. Oral mucosa is pink and moist. Neck is supple. Trachea is midline. There is no JVD noted. Heart was irregularly irregular. Lungs are clear and equal bilaterally. Abdomen is soft. Bowel sounds are normal. There is no tenderness. There is no rebound or guarding noted. Skin is warm dry. Cranial nerves II through XII are intact. There are no focal motor or sensory deficits noted. Extremities are intact. There is no calf tenderness or edema. Test Results: EKG was obtained. On my interpretation, there is atrial fibrillation with a rate of 93. There is a left bundle branch block pattern noted. There are no acute ST or T wave changes. CBC and basic metabolic profile were within normal limits. INR was therapeutic at 2.0. Troponin was normal. Chest x-ray from earlier today was reviewed. There are 2 views. On my interpretation, there is no acute cardiopulmonary process noted. Bony thorax is normal. There is a prosthetic aortic valve. Emergency Department Course and Treatment: Patient was given aspirin here. Patient was ordered sublingual nitroglycerin but declined medication. Patient is feeling better and wants to go home. Patient was instructed to follow-up with her primary care physician and social media executive in 3 to 5 days. Patient was instructed return if worse in any way. Patient understood and was agreeable with the plan. All questions were answered. Disposition: Discharge home Impression: 1. Chest pain This note was generated with [employer] software. It may contain incorrect words, spelling, and punctuation that were not noted in review of the chart prior to signing ED Disposition - Plan for ED Patient: Disposition: Home or Assisted Living Diagnosis: Chest pain Instructions: ED Chest Pain, Uncertain Cause Referrals: Cheyanne Holt MD [Primary Care Provider] - 3-5 Days Arnold Bland MD [STAFF PHYSICIAN] - 3-5 Days
[2020-12-06 21:45] LABS: Prothrombin Time (Protime)PT. 21.9 SECONDS (11.7-14.9)
[2020-12-06 22:03] LABS: Anion Gap 7 (5-15); BUN 16 mg/dL (7-18); BUN/Creat Ratio 16.6 RATIO (10-20); Calcium,Total 9.1 mg/dL (8.5-10.1); Chloride 107 mmol/L (98-107); Creatinine, Serum 0.96 mg/dL (0.55-1.02); EST Glomerular Filtration Rate 59 mL/min (>60); Est Glom Filt Rate - Afr Amer 71 mL/min (>60); Estimated Creatinine Clearance 38.02 ml/min; Glucose 99 mg/dL (74-106); Potassium 3.7 mmol/L (3.5-5.1); Sodium Level 141 mmol/L (136-145)
[2020-12-06 22:53] VITALS: BP 123/101; PULSE 78; RESP 18; O2SAT 98
== END 2020-12-06 22:59 | disposition home or self-care (01) ==
PROVIDERS: Emergency Provider Emergency Medicine; PCP Internal Medicine
DX: R07.9 Chest pain, unspecified (principal); I11.0 Hypertensive heart disease with heart failure; I50.32 Chronic diastolic (congestive) heart failure; I42.1 Obstructive hypertrophic cardiomyopathy; I25.10 Atherosclerotic heart disease of native coronary artery without angina pectoris; I44.7 Left bundle-branch block, unspecified; J44.9 Chronic obstructive pulmonary disease, unspecified; Z79.01 Long term (current) use of 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; Z79.899 Other long term (current) drug therapy; Z95.1 Presence of aortocoronary bypass graft
CPT/HCPCS: 36415; 71046; 80048; 80053; 83880; 84484; 85025; 85610; 93005; 99285; A4216

== ENCOUNTER 2020-12-19 11:24 | Outpatient (RCR) | payer MEDICARE, SELFPAY ==
[2020-12-05 07:14] LABS: Prothrombin Time Fingerstick 26.7 SEC (11.9-14.4)
[2020-12-19 11:36] LABS: Prothrombin Time Fingerstick 37.9 SEC (11.9-14.4)
[2020-12-19 11:56] LABS: Prothrombin Time (Protime)PT. 30.5 SECONDS (11.7-14.9)
== END 2020-12-19 18:00 | disposition home or self-care (01) ==
LOC: LAB 11:24
PROVIDERS: Family Provider Internal Medicine; PCP Internal Medicine; Referring Provider Internal Medicine Cardiovascular Disease; Visit Provider Internal Medicine Cardiovascular Disease
DX: I48.19 Other persistent atrial fibrillation (principal); Z79.01 Long term (current) use of 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
CPT/HCPCS: 36415; 36416; 85610

== ENCOUNTER → 2021-01-09 16:40 | Outpatient (CLI) | payer MEDICARE, SELFPAY ==
--- NOTE | 2021-01-09 16:45 | RAD_ITS ---
HISTORY: BACK/LEG PAIN COMPARISON: CT scan of the abdomen and pelvis from November 26, 2020 which has sagittal and coronal 2-D reformats which could through the lumbar spine. FINDINGS: # of images incl. paperwork: 5 XR Spine Lumbar Min 4 Views: Lumbar vertebral bodies are normal in height. Lumbar disc spaces areare fairly well-maintained. There is some degenerative disease with minimal loss of height. There is disease at L4-L5 level. This disease manifested by loss of disc height, endplate sclerosis, and 8 mm of anterior subluxation of L4 on L5. Vacuum disc phenomenon, better demonstrated on the previous CT scan remains. Facet arthropathy is present within the lower lumbar spine. No pars interarticularis defects redemonstrated at L4 on the CT. Atherosclerosis within the abdominal aorta. Bone island within the left iliac wing is again demonstrated.. No acute lumbar spine fracture or subluxation. RAD/L/S Spine Min 4 Views IMPRESSION: No acute lumbar spine fracture or subluxation. Levoscoliosis at the thoracolumbar junction remains. 8mm anterior subluxation of L4 on L5 is similar to previous CT of October 23, 2020. Facet arthropathy greatest at the L4-L5 and L5-S1 level remains. at 0640 Reported and signed by: Jose Tyler MD Electronically Signed: Jose Tyler MD at 6:39 EST Tel , Service support ,
== END ==
PROVIDERS: PCP Internal Medicine; Referring Provider Anesthesiology Pain Medicine; Visit Provider Anesthesiology Pain Medicine
DX: M54.9 Dorsalgia, unspecified (principal); M79.606 Pain in leg, unspecified
CPT/HCPCS: 72110

== ENCOUNTER 2021-01-18 13:07 | Outpatient (RCR) | payer MEDICARE, SELFPAY ==
[2021-01-04 15:14] LABS: International Normalized Ratio 3.8; Prothrombin Time (Protime)PT. 37.1 SECONDS (11.7-14.9)
[2021-01-04 15:47] LABS: Prothrombin Time Fingerstick 56.9 SEC (11.9-14.4)
[2021-01-11 13:39] LABS: Prothrombin Time (Protime)PT. 30.7 SECONDS (11.7-14.9)
[2021-01-11 14:16] LABS: Prothrombin Time Fingerstick 38.7 SEC (11.9-14.4)
[2021-01-18 13:16] LABS: INR Fingerstick 3.1; Prothrombin Time Fingerstick 33.8 SEC (11.9-14.4)
== END 2021-01-18 18:00 | disposition home or self-care (01) ==
LOC: LAB 13:07
PROVIDERS: Family Provider Internal Medicine; PCP Internal Medicine; Referring Provider Internal Medicine Cardiovascular Disease; Visit Provider Internal Medicine Cardiovascular Disease
DX: Z79.01 Long term (current) use of 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 (principal); I48.19 Other persistent atrial fibrillation
CPT/HCPCS: 36415; 36416; 85610

== ENCOUNTER → 2021-01-28 09:52 | Outpatient (CLI) | payer MEDICARE, SELFPAY ==
--- NOTE | 2021-01-28 10:02 | MRI_ITS ---
STUDY: MRI LUMBAR SPINE WITHOUT CONTRAST REASON FOR EXAM: Female, 81 years old. BACK PAIN, LEG PAIN lbp, bilat leg pain, hx bone marrow ca- resolved w/ chemo; prev mri 2017 TECHNIQUE: Standardized fat and water weighted pulse sequences were obtained in the sagittal and axial planes. COMPARISON: MRI lumbar spine dated December 31, 2016 FINDINGS: No visualized compression deformity or fracture or bone marrow edema. Normal lumbar lordosis. There is a levoscoliosis of the lumbar spine. Normal conus medullaris that terminates at the T12-L1 level. Disc desiccation is present at all levels. Mild to moderate disc space narrowing at T12-L1. A small left paracentral and inferior disc extrusion is present. L1-2: Mild to moderate disc space narrowing with a mild diffuse disc spur complex. Retrolisthesis of L1 on L2 of 2 to 3 mm.. Normal bilateral facet joints. Normal central canal and bilateral lateral recesses. Normal bilateral intervertebral neural foramina. L2-3: Normal endplates. Mild posterior disc space narrowing with a minor posterior disc spur complex. Retrolisthesis of L2 on L3 of 2 mm. Mild fluid distention of the right facet joint. Normal central canal and bilateral lateral recesses. Normal bilateral intervertebral neural foramina. L3-4: Normal endplates. Mild posterior disc space narrowing without system bulging or herniation. Retrolisthesis of L3 on L4 of less than 2 mm. Normal bilateral facet joints. Normal central canal and bilateral lateral recesses. Normal bilateral intervertebral neural foramina. L4-5: Moderate disc space narrowing with a diffuse disc spur complex. Small superior subligamentous disc extrusion is eccentric to the right. Severe facet joint hypertrophy combine with the diffuse disc bulge results in severe central canal stenosis. Normal bilateral intervertebral neural foramina. Anterolisthesis of L4 and L5 of 5 mm. L5-S1: Normal endplates. Mild disc space narrowing and posterior annular bulging with an annular tear. Mild to moderate facet hypertrophy. Normal central canal and bilateral lateral recesses. Normal bilateral intervertebral neural foramina. Normal visualized sacral ala. There is mild paraspinal muscular atrophy. MRI/Spine Lumbar (Routine) IMPRESSION: 1. Multilevel degenerative changes, as described above. 2. Severe central canal stenosis at the L4-L5 level. 3. No significant interval change from the prior study. Electronically Signed: Felix Love MD at 19:34 EDT , Service support ,
== END ==
PROVIDERS: PCP Internal Medicine; Referring Provider Anesthesiology Pain Medicine; Visit Provider Anesthesiology Pain Medicine
DX: M54.9 Dorsalgia, unspecified (principal); M79.606 Pain in leg, unspecified
CPT/HCPCS: 72148

== ENCOUNTER 2021-02-15 13:48 | Outpatient (RCR) | payer MEDICARE, SELFPAY ==
[2021-02-07 13:20] LABS: INR Fingerstick 3.5; Prothrombin Time Fingerstick 38.5 SEC (11.9-14.4)
[2021-02-15 15:11] LABS: INR Fingerstick 2.5; Prothrombin Time Fingerstick 27.8 SEC (11.9-14.4)
== END 2021-02-15 18:00 | disposition home or self-care (01) ==
LOC: LAB 13:48
PROVIDERS: Family Provider Internal Medicine; PCP Internal Medicine; Referring Provider Internal Medicine Cardiovascular Disease; Visit Provider Internal Medicine Cardiovascular Disease
DX: I48.19 Other persistent atrial fibrillation (principal); Z79.01 Long term (current) use of 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
CPT/HCPCS: 36416; 85610

== ENCOUNTER → 2021-03-04 14:15 | Outpatient (CLI) | payer MEDICARE, SELFPAY ==
--- NOTE | 2021-03-04 14:22 | RAD_ITS ---
STUDY: X-RAY - PELVIS AND BILATERAL HIPS REASON FOR EXAM: Female, 81 years old. HIP PAIN TECHNIQUE: 5 views of the hips and pelvis. COMPARISON: 05/11/2018. FINDINGS: Stable left sacral sclerotic bone lesion measuring 1.1 cm. Diffuse osteopenia/osteoporosis. No acute fracture line. No acute dislocation. No acute cortical destruction. Mild bilateral hip osteoarthritis. Moderate pubic symphysis arthrosis. Mild sacroiliac joint arthrosis. Pelvic enthesophytes. Moderate/severe lumbar spine arthrosis. No significant soft tissue swelling. RAD/Hips B/L min 2 views w/ Pelvis IMPRESSION: Stable left sacral sclerotic bone lesion (correlate medical history) Mild/moderate degenerative features, as above Electronically Signed: Eduardo Narayan DO at 9:33 EDT Tel , Service support ,
== END ==
PROVIDERS: PCP Internal Medicine; Referring Provider Anesthesiology Pain Medicine; Visit Provider Anesthesiology Pain Medicine
DX: M25.551 Pain in right hip (principal); M25.552 Pain in left hip
CPT/HCPCS: 73521

== ENCOUNTER 2021-03-24 13:31 | Emergency (ER) | payer MEDICARE, SELFPAY ==
[2021-03-07 11:25] VITALS: BMI 26.5
[2021-03-24] VITALS (12 sets, daily range): BP systolic 91–128; BP diastolic 69–90; PULSE 69–129; RESP 14–19; TEMP 36.6; O2SAT 92–98; BMI 24.0
--- NOTE | 2021-03-24 14:03 | EKG12_ITS ---
Test Reason : PALPS Blood Pressure : / mmHG Vent. Rate : 105 BPM Atrial Rate : 357 BPM P-R Int : 000 ms QRS Dur : 124 ms QT Int : 364 ms P-R-T Axes : 000 -35 146 degrees QTc Int : 481 ms Atrial fibrillation with rapid ventricular response Left axis deviation Left bundle branch block Abnormal ECG Confirmed by CLAUDIA FORTUNE, KACIE ([id number]), editor map NAYELI NEGRON ([id number]) on 03/26/2021 9:08:47 AM Referred By: VIRI Confirmed By:KACIE TAYLOR MD
--- NOTE | 2021-03-24 14:04 | EDS_ITS ---
HPI History of Present Illness Chief Complaint: Palpitations Informant: patient Narrative Narrative: 81-year-old female with a history of persistent atrial fibrillation, hypertrophic cardiomyopathy is post myomectomy and valve repair. She tells me that she saw cardiology the beginning of March. She thought that her atrial fibrillation had went back into a sinus rhythm. However she stated this morning she felt her heart beating differently. She states she put a pulse oximeter on her rate would vary from the 30s to 130. She states normally it is not that wide of range. She currently is taking metoprolol 50 mg once a day. She is on Coumadin. [facility] Medical History (Updated 03/24/21 @ 16:[address] Pato Danielson, DO) Acute respiratory failure with hypoxia Atrial fibrillation Atrial flutter with rapid ventricular response Bladder cancer Chronic diastolic heart failure COPD (chronic obstructive pulmonary disease) Essential hypertension History of cardioversion (~04/25/20) History of left heart catheterization (LHC) (~11/30/17) Hyperlipidemia Hypertension Hypertrophic obstructive cardiomyopathy (HOCM) LBBB (left bundle branch block) Long QT interval Non-Hodgkin lymphoma Nonrheumatic mitral (valve) insufficiency Paroxysmal atrial fibrillation Paroxysmal atrial fibrillation Persistent atrial fibrillation Home Medications umeclidinium-vilanterol 1 puff INHALATION DAILY 10/06/17 [History Last Taken 05/11/18 1 PUFF] cholecalciferol (vitamin D3) 1,000 unit PO DAILY 08/06/18 [History Last Taken Unknown] potassium chloride 10 meq PO DAILY #30 tab 08/16/18 [Rx Last Taken Unknown] albuterol sulfate 5 mg/mL(0.5 %) solution for nebulization 2.5 mg INHALATION TID-QID PRN 04/06/19 [History Last Taken Unknown] magnesium oxide 400 mg PO DAILY tab 04/06/19 [History Last Taken Unknown] furosemide 20 mg tablet 20 mg PO DAILY #90 tab 03/14/20 [Rx Last Taken Unknown] warfarin 1.5 mg PO DAILY 12/06/20 [History Last Taken Unknown] lisinopril 10 mg tablet 10 mg PO DAILY #90 tab 03/07/21 [Rx Last Taken Unknown] metoprolol succinate 50 mg tablet,extended release 24 hr 50 mg PO DAILY #60 tab 03/11/21 [Rx Last Taken Unknown] metoprolol tartrate 25 mg PO BID PRN #10 tab 03/24/21 [Rx Last Taken Unknown] Allergy/AdvReac Type Severity Reaction Status Date / Time allopurinol Allergy Rash Verified 03/24/21 13:32 tramadol AdvReac dizzy Verified 03/24/21 13:32 Family History Father Heart disease Hypertension Surgical History History of bladder surgery History of mitral valve repair (~07/30/18) History of ventricular septal myectomy (~07/30/18) Social History Smoking Status: Former smoker pack-years: 58 alcohol intake: current details: occasional caffeine: No ROS ROS ED Constitutional Constitutional ED: Denies chills or weight loss Eyes Eyes: Denies change in vision or diplopia ENT ENT ED: Denies ear pain, rhinorrhea or sore throat Cardiovascular Cardiovascular: Reports palpitations; Denies chest pain, orthopnea or racing heartbeat Respiratory/Chest Respiratory/Chest: Denies cough, dyspnea or orthopnea Gastrointestinal Gastrointestinal: Denies abdominal pain, diarrhea, nausea or vomiting Genitourinary Genitourinary ED: Denies dysuria, hematuria or urinary frequency Musculoskeletal Musculoskeletal: Denies arthralgias or myalgias Integumentary Denies abscess or rash Neurologic Neurologic: Denies headache(s) or weakness Psychiatric Psychiatric: Denies anxiety, depression, suicidal ideation or suicidal thoughts Endocrine Endocrinology: Denies polydipsia, polyphagia or polyuria Allergic/Immunologic Allergic/Immunologic ED: Denies mouth swelling, tongue swelling or urticaria EXAM Physical Exam Const Vital Signs: 03/24/21 13:32 03/24/21 14:06 03/24/21 14:08 Temperature 97.8 F Temperature Source Temporal Pulse Rate 72 99 Respiratory Rate 16 19 H Respiratory Effort Normal Non-Labored Blood Pressure 128/69 H 125/85 H Blood Pressure Mean 88 98 Pulse Ox 95 93 Oxygen Delivery Method Room Air Room Air 03/24/21 14:34 03/24/21 14:48 03/24/21 15:00 Temperature Temperature Source Pulse Rate 102 H 108 H 116 H Respiratory Rate 18 Respiratory Effort Blood Pressure 123/86 H Blood Pressure Mean 98 Pulse Ox 92 Oxygen Delivery Method Room Air 03/24/21 15:20 03/24/21 15:23 03/24/21 15:24 Temperature Temperature Source Pulse Rate 103 H 105 H 119 H Respiratory Rate 15 Respiratory Effort Blood Pressure 128/90 H Blood Pressure Mean 102 Pulse Ox 93 Oxygen Delivery Method Room Air 03/24/21 15:25 03/24/21 15:26 03/24/21 15:30 Temperature Temperature Source Pulse Rate 129 H 101 H 93 Respiratory Rate Respiratory Effort Blood Pressure Blood Pressure Mean Pulse Ox Oxygen Delivery Method Positive well nourished and well developed General Appearance ED: well developed HEENT Reports normocephalic, head/scalp atraumatic and moist mucous membranes Eyes PERRL and EOMs intact bilaterally Neck no lymphadenopathy, supple and no JVD Resp normal respiratory effort and clear to auscultation bilaterally Cardio no murmurs Rate: other Other Details: Irregularly irregular rhythm GI normal to inspection, nondistended, normoactive bowel sounds and non-tender Palpation: soft Back/Spine no CVA tenderness and normal ROM Extremity normal to inspection General Extremety ED: Negative for edema General Extremity: Negative for edema Neuro oriented x3 and CN's II-XII intact bilaterally Sensorium / Orientation: alert Motor Exam: strength 5/5 throughout Psych mental status grossly normal Mood & Affect: Negative for depressed or tearful Skin no rashes or lesions noted and no wounds MDM MDM MDM Narrative Medical decision making narrative: Basic blood work was reviewed. Electrolytes are normal. INR is 1.5. Patient was placed on the monitor. She was consistently with a heart rate of 100-120. I gave her 2 doses of extra metoprolol. This is brought her heart rate down into the 80s. I have not seen a drop into the 30s. I spoke with on-call cardiology. Lab Data Labs: Laboratory Results - last 24 hr 03/24/21 03/24/21 03/24/21 14:26 14:26 14:26 WBC 11.1 H RBC 5.91 H Hgb 15.6 H Hct 50.4 H MCV 85.3 MCH 26.4 L MCHC 31.0 L RDW Std Deviation 48.7 H RDW Coeff of Neelima 15.6 H Plt Count 288 MPV 10.3 Immature Gran % (Auto) 0.700 Neut % (Auto) 77.4 H Lymph % (Auto) 13.6 L [place] % (Auto) 6.8 Eos % (Auto) 0.7 Baso % (Auto) 0.8 Absolute Neuts (auto) 8.6 H Absolute Lymphs (auto) 1.51 Nucleated RBC % 0 PT 17.2 H INR 1.5 Sodium 139 Potassium 3.9 Chloride 103 Carbon Dioxide 29.0 Anion Gap 7 BUN 19 H Creatinine 1.07 H Estim Creat Clear Calc 37.95 Est GFR (MDRD) Af Amer 63 Est GFR (MDRD) Non-Af 52 L BUN/Creatinine Ratio 17.8 Glucose 104 Calcium 9.6 Magnesium 1.9 Troponin I < 0.015 EKG Initial EKG: Attestation: I personally reviewed and interpreted this EKG as follows: Comments: EKG demonstrates atrial fibrillation with RVR at a rate of 105. Left bundle branch block noted. Discharge Plan Triage Chief Complaint: Palpitations ED Provider: Pato Danielson Dx/Rx/DC Orders Clinical Impression: Persistent atrial fibrillation Instructions: ED AFIB Prescriptions: New metoprolol tartrate 25 mg tablet 25 mg PO BID PRN (Reason: tachycardia) Qty: 10 RF: 0 No Action magnesium oxide 400 mg magnesium tablet 400 mg PO DAILY RF: 0 albuterol sulfate 5 mg/mL solution for nebulization 2.5 mg INHALATION TID-QID PRN (Reason: Shortness Of Breath) RF: 0 furosemide 20 mg tablet 20 mg PO DAILY Qty: 90 RF: 3 lisinopril 10 mg tablet 10 mg PO DAILY Qty: 90 RF: 3 umeclidinium-vilanterol 1 EACH blister with device 1 puff INHALATION DAILY RF: 0 cholecalciferol (vitamin D3) 1,000 UNIT capsule 1,000 unit PO DAILY RF: 0 potassium chloride 10 MEQ tablet 10 meq PO DAILY Qty: 30 RF: 0 warfarin 1 MG tablet 1.5 mg PO DAILY RF: 0 metoprolol succinate 50 mg tablet extended release 24 hr 50 mg PO DAILY Qty: 60 RF: 11 Primary Care Provider: Cheyanne Holt Referrals: Cheyanne Holt MD [Primary Care Provider] - Arnold Bland MD [STAFF PHYSICIAN] - As soon as possible Activity Restrictions/Additional Instructions: Should you find your heart rate greater than 100 please take an extra dose of the metoprolol I have written for you. Please call Dr. Bland's office and inform them of today's visit and your symptoms. Disposition Disposition: Home, self care
[2021-03-24 14:46] LABS: International Normalized Ratio 1.5; Prothrombin Time (Protime)PT. 17.2 SECONDS (11.7-14.9)
[2021-03-24 14:47] LABS: Absolute Lymphocyte Count 1.51 X10^3/uL (0.83-4.51); Absolute Neutrophil Count 8.6 X10^3/uL (2.0-7.7); Basophil# 0.09 X10^3/uL; Basophil% 0.8 % (0-1); Eosinophil# 0.08 X10^3/uL; Eosinophils% 0.7 % (0-5); Hematocrit 50.4 % (37-47); Hemoglobin 15.6 g/dL (12.0-15.0); Lymphocyte # 1.51 X10^3/ul (0.83-4.51); Lymphocyte % 13.6 % (19-41); Mean Corpuscular Hgb 26.4 pg (27.0-32.0); Mean Corpuscular Volume 85.3 fL (81-99); Mean Platelet Vol. 10.3 fl (6.2-12.0); Monocyte# 0.75 X10^3/uL; Monocyte% 6.8 % (0-10); NRBC Flagged by Analyzer 0 % (0-5); Neutrophil # 8.58 X10^3/uL (2.7-7.7); Neutrophil % 77.4 % (47-70); Platelet Count 288 K/mm3 (150-450); RBC Distribution Width CV 15.6 % (11.6-14.6); RBC Distribution Width SD 48.7 fl (35.1-43.9); Red Blood Count 5.91 M/mm3 (4.2-5.4); White Blood Count 11.1 K/mm3 (4.4-11.0)
[2021-03-24 14:59] LABS: Anion Gap 7 (5-15); BUN 19 mg/dL (7-18); BUN/Creat Ratio 17.8 RATIO (10-20); Calcium,Total 9.6 mg/dL (8.5-10.1); Chloride 103 mmol/L (98-107); Creatinine, Serum 1.07 mg/dL (0.55-1.02); EST Glomerular Filtration Rate 52 mL/min (>60); Est Glom Filt Rate - Afr Amer 63 mL/min (>60); Estimated Creatinine Clearance 37.95 ml/min; Glucose 104 mg/dL (74-106); Magnesium 1.9 mg/dL (1.6-2.6); Potassium 3.9 mmol/L (3.5-5.1); Sodium Level 139 mmol/L (136-145)
[2021-03-24] MEDS: Metoprolol Tartrate 5 MG/5 ML Vial IV ×2 (15:15→15:23)
== END 2021-03-24 16:34 | disposition home or self-care (01) ==
PROVIDERS: Emergency Provider Emergency Medicine; PCP Internal Medicine
DX: I48.19 Other persistent atrial fibrillation (principal); I11.0 Hypertensive heart disease with heart failure; I50.32 Chronic diastolic (congestive) heart failure; I48.0 Paroxysmal atrial fibrillation; I42.1 Obstructive hypertrophic cardiomyopathy; J44.9 Chronic obstructive pulmonary disease, unspecified; E78.5 Hyperlipidemia, unspecified; Z79.01 Long term (current) use of 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; Z79.899 Other long term (current) drug therapy; Z85.51 Personal history of malignant neoplasm of bladder; Z85.72 Personal history of non-Hodgkin lymphomas; Z87.891 Personal history of nicotine dependence
CPT/HCPCS: 80048; 83735; 84484; 85025; 85610; 93005; 96374; 99284; A4216

== ENCOUNTER 2021-03-28 12:08 | Outpatient (RCR) | payer MEDICARE, SELFPAY ==
[2021-03-07 11:25] VITALS: BMI 26.5
[2021-03-08 11:41] LABS: INR Fingerstick 1.7; Prothrombin Time Fingerstick 19.9 SEC (11.9-14.4)
[2021-03-14 11:51] LABS: INR Fingerstick 1.3
[2021-03-14 11:56] LABS: INR Fingerstick 1.3; Prothrombin Time Fingerstick 15.9 SEC (11.9-14.4)
[2021-03-22 13:31] LABS: INR Fingerstick 1.8; Prothrombin Time Fingerstick 20.3 SEC (11.9-14.4)
[2021-03-29 10:40] LABS: INR Fingerstick 3.3
== END 2021-03-28 18:00 | disposition home or self-care (01) ==
LOC: LAB 12:08
PROVIDERS: Family Provider Internal Medicine; PCP Internal Medicine; Referring Provider Internal Medicine Cardiovascular Disease; Visit Provider Internal Medicine Cardiovascular Disease
DX: I48.19 Other persistent atrial fibrillation (principal); Z79.01 Long term (current) use of 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
CPT/HCPCS: 36416; 85610

== ENCOUNTER → 2021-04-09 10:51 | Outpatient (CLI) | payer MEDICARE, SELFPAY ==
[2021-04-05 09:34] VITALS: BMI 23.8
== END ==
PROVIDERS: PCP Internal Medicine; Referring Provider Physician Assistant Medical; Visit Provider Physician Assistant Medical
DX: I48.19 Other persistent atrial fibrillation (principal); I48.92 Unspecified atrial flutter; I11.0 Hypertensive heart disease with heart failure; I50.32 Chronic diastolic (congestive) heart failure; I42.1 Obstructive hypertrophic cardiomyopathy; E78.5 Hyperlipidemia, unspecified; Z98.890 Other specified postprocedural states
CPT/HCPCS: 93225; 93226

== ENCOUNTER 2021-04-13 09:47 | Observation (INO) | payer MEDICARE, SELFPAY ==
[2021-04-05 09:34] VITALS: BMI 23.8
[2021-04-13] VITALS (11 sets, daily range): BP systolic 101–145; BP diastolic 57–100; PULSE 87–112; RESP 14–18; TEMP 35.9–36.8; O2SAT 94–99; BMI 23.8; BMI 23.7
--- NOTE | 2021-04-13 10:24 | EKG12_ITS ---
Test Reason : GI BLEED Blood Pressure : / mmHG Vent. Rate : 097 BPM Atrial Rate : 394 BPM P-R Int : 000 ms QRS Dur : 138 ms QT Int : 440 ms P-R-T Axes : 000 -30 170 degrees QTc Int : 558 ms Atrial flutter with variable A-V block Left axis deviation Left bundle branch block Abnormal ECG Confirmed by CLAUDIA FORTUNE, KACIE ([id number]), newspaper or periodical editor NAYELI NEGRON ([id number]) on 04/18/2021 9:22:11 AM Referred By: ELMIRA Confirmed By:KACIE TAYLOR MD
--- NOTE | 2021-04-13 10:25 | ED.VIS.GI ---
HPI HPI - GI History of Present Illness Chief Complaint: GI Bleed Narrative Narrative: Presents increasing bright red blood per stool today. Last few days noted mild amount of blood with wiping. Today large amount of bright red blood mixed with brown stools. No abdominal pain or lightheaded symptoms. Patient on warfarin for history of chronic A. fib last INR check 2 days ago reported 2.5. Reports little over a month ago diagnosed with diverticulitis to the ED with blood in the stools. She follow-up with her PCP pending referral to Dr. Brasher, no history of colonoscopies in the past. History of IBS. 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 She has been on warfarin for the past 2 and half years. History of valve repair. [facility] Medical History (Updated 04/13/21 @ 12:[address] Gerry Gamino, DO) Acute respiratory failure with hypoxia Atrial fibrillation Atrial flutter with rapid ventricular response Bladder cancer Chronic diastolic heart failure COPD (chronic obstructive pulmonary disease) Essential hypertension History of cardioversion (~04/25/20) History of left heart catheterization (LHC) (~11/30/17) Hyperlipidemia Hypertension Hypertrophic obstructive cardiomyopathy (HOCM) LBBB (left bundle branch block) Long QT interval Non-Hodgkin lymphoma Nonrheumatic mitral (valve) insufficiency Paroxysmal atrial fibrillation Paroxysmal atrial fibrillation Persistent atrial fibrillation Home Medications umeclidinium-vilanterol 1 puff INHALATION DAILY 10/06/17 [History Last Taken 05/11/18 1 PUFF] cholecalciferol (vitamin D3) 1,000 unit PO DAILY 08/06/18 [History Last Taken Unknown] potassium chloride 10 meq PO DAILY #30 tab 08/16/18 [Rx Last Taken Unknown] albuterol sulfate 5 mg/mL(0.5 %) solution for nebulization 2.5 mg INHALATION TID-QID PRN 04/06/19 [History Last Taken Unknown] magnesium oxide 400 mg PO DAILY tab 04/06/19 [History Last Taken Unknown] furosemide 20 mg tablet 20 mg PO DAILY #90 tab 03/14/20 [Rx Last Taken Unknown] warfarin 1.5 mg PO DAILY 12/06/20 [History Last Taken Unknown] lisinopril 10 mg tablet 10 mg PO DAILY #90 tab 03/07/21 [Rx Last Taken Unknown] metoprolol succinate 50 mg tablet,extended release 24 hr 50 mg PO DAILY #60 tab 03/11/21 [Rx Last Taken Unknown] metoprolol tartrate 25 mg PO BID PRN #10 tab 03/24/21 [Rx Last Taken Unknown] Allergy/AdvReac Type Severity Reaction Status Date / Time allopurinol Allergy Rash Verified 04/13/21 09:48 tramadol AdvReac dizzy Verified 04/13/21 09:48 Family History Father Heart disease Hypertension Surgical History History of bladder surgery History of mitral valve repair (~07/30/18) History of ventricular septal myectomy (~07/30/18) Social History Smoking Status: Former smoker pack-years: 58 how long ago did patient quit smokin years ago alcohol intake: current alcohol intake frequency: holidays/special occasions only substance use type: does not use caffeine: No ROS ROS ED Constitutional Constitutional ED: Denies chills, fever(s) or sweats Eyes Eyes: Denies change in vision ENT ENT ED: Denies dysphagia or sore throat Cardiovascular Cardiovascular: Denies chest pain, leg edema, palpitations or racing heartbeat Respiratory/Chest Respiratory/Chest: Denies cough, dyspnea or dyspnea on exertion Gastrointestinal Gastrointestinal: Reports other Details: Blood in stools ; Denies abdominal pain, diarrhea, nausea or vomiting Genitourinary Genitourinary ED: Denies dysuria, hematuria or urinary frequency Musculoskeletal Musculoskeletal: Denies back pain, extremity pain or neck pain Integumentary Denies rash or wounds Neurologic Neurologic: Denies headache(s), paresthesias or weakness EXAM Physical Exam Const Vital Signs: 04/13/21 09:48 04/13/21 12:00 Temperature 96.7 F L Temperature Source Temporal Pulse Rate 94 98 Respiratory Rate 14 16 Blood Pressure 145/77 H 106/74 Blood Pressure Mean 99 84 Pulse Ox 98 97 Oxygen Delivery Method Room Air Room Air Positive well nourished and well developed General Appearance ED: well developed and NAD; Negative for pallor HEENT Reports moist mucous membranes normocephalic and atraumatic Eyes PERRL, EOMs intact bilaterally and conjunctivae normal Eyes Narrative: Normal conjunctiva General Eye ED: Yes normal appearance of both eyes Neck no lymphadenopathy and supple General: Negative for tenderness Chest Wall Chest: Negative for tenderness Resp normal respiratory effort and normal air movement Effort and Inspection: symmetric chest movement; Negative for respiratory distress Cardio no murmurs Cardio Narrative: Irregular Rhythm: abnormal rhythm Peripheral Pulses: pulses 2+ throughout GI normal to inspection, nondistended, normoactive bowel sounds and non-tender GI Narrative: Rectal exam with nonthrombosed hemorrhoids, brown stools on digital exam, no gross blood. Pending Hemoccult. Palpation: Negative for guarding or rebound tenderness present Back/Spine no CVA tenderness and no thoracic nor lumbar tenderness Extremity normal to inspection General Extremety ED: Negative for edema or tenderness General Extremity: Negative for edema Neuro oriented x3 and no sensory deficits noted Sensorium / Orientation: awake and alert Skin no rashes or lesions noted and no wounds General Skin Exam: Negative for pallor MDM MDM MDM Narrative Medical decision making narrative: Patient EKG rate controlled a flutter/A. fib. Vital stable hemoglobin turn at 15.3. INR 1.9. Guaiac was positive. Vitals are stable, with patient on warfarin with acute bleed, I do feel she will benefit from observations. I spoke with hospitalist , for admission. She did request I speak with on-call surgeon to follow. I spoke with Dr. Valdivia who will follow. Recommended clear liquid diet and reversal of INR. Will relate to hospital team. Lab Data Labs: Laboratory Results - last 24 hr 04/13/21 04/13/21 04/13/21 10:05 10:05 10:05 WBC 10.3 RBC 5.74 H Hgb 15.3 H Hct 48.2 H MCV 84.0 MCH 26.7 L MCHC 31.7 L RDW Std Deviation 46.3 H RDW Coeff of Neelima 15.4 H Plt Count 306 MPV 10.7 Immature Gran % (Auto) 0.500 Neut % (Auto) 73.4 H Lymph % (Auto) 15.5 L [place] % (Auto) 8.4 Eos % (Auto) 1.1 Baso % (Auto) 1.1 H Absolute Neuts (auto) 7.6 Absolute Lymphs (auto) 1.60 Nucleated RBC % 0 PT 20.7 H INR 1.9 APTT 33.0 Sodium 142 Potassium 3.7 Chloride 107 Carbon Dioxide 28.0 Anion Gap 7 BUN 19 H Creatinine 1.18 H Estim Creat Clear Calc 34.41 Est GFR (MDRD) Af Amer 56 L Est GFR (MDRD) Non-Af 47 L BUN/Creatinine Ratio 16.1 Glucose 90 Calcium 9.1 EKG Initial EKG: Attestation: I personally reviewed and interpreted this EKG as follows: Comments: Rate controlled atrial flutter/fibrillation rate of 97, no ST changes. T wave inversions extreme lateral leads, left bundle branch block. Discharge Plan Triage Chief Complaint: GI Bleed ED Provider: Gerry Gamino Dx/Rx/DC Orders Clinical Impression: Acute GI bleeding, Persistent atrial fibrillation Prescriptions: No Action magnesium oxide 400 mg magnesium tablet 400 mg PO DAILY RF: 0 albuterol sulfate 5 mg/mL solution for nebulization 2.5 mg INHALATION TID-QID PRN (Reason: Shortness Of Breath) RF: 0 furosemide 20 mg tablet 20 mg PO DAILY Qty: 90 RF: 3 lisinopril 10 mg tablet 10 mg PO DAILY Qty: 90 RF: 3 umeclidinium-vilanterol 1 EACH blister with device 1 puff INHALATION DAILY RF: 0 cholecalciferol (vitamin D3) 1,000 UNIT capsule 1,000 unit PO DAILY RF: 0 potassium chloride 10 MEQ tablet 10 meq PO DAILY Qty: 30 RF: 0 warfarin 1 MG tablet 1.5 mg PO DAILY RF: 0 metoprolol tartrate 25 mg tablet 25 mg PO BID PRN (Reason: tachycardia) Qty: 10 RF: 0 metoprolol succinate 50 mg tablet extended release 24 hr 50 mg PO DAILY Qty: 60 RF: 11 Primary Care Provider: Cheyanne Holt Referrals: Cheyanne Holt MD [Primary Care Provider] - Disposition Disposition: Acute Care Hospital [facility]
[2021-04-13 10:35] LABS: Absolute Neutrophil Count 7.6 X10^3/uL (2.0-7.7); Basophil# 0.11 X10^3/uL; Basophil% 1.1 % (0-1); Eosinophil# 0.11 X10^3/uL; Eosinophils% 1.1 % (0-5); Hematocrit 48.2 % (37-47); Hemoglobin 15.3 g/dL (12.0-15.0); Lymphocyte % 15.5 % (19-41); Mean Corp Hgb Conc 31.7 g/dL (32-36); Mean Corpuscular Hgb 26.7 pg (27.0-32.0); Mean Platelet Vol. 10.7 fl (6.2-12.0); Monocyte# 0.87 X10^3/uL; Monocyte% 8.4 % (0-10); NRBC Flagged by Analyzer 0 % (0-5); Neutrophil # 7.58 X10^3/uL (2.7-7.7); Neutrophil % 73.4 % (47-70); Platelet Count 306 K/mm3 (150-450); RBC Distribution Width CV 15.4 % (11.6-14.6); RBC Distribution Width SD 46.3 fl (35.1-43.9); Red Blood Count 5.74 M/mm3 (4.2-5.4); White Blood Count 10.3 K/mm3 (4.4-11.0)
[2021-04-13 10:42] LABS: International Normalized Ratio 1.9; Prothrombin Time (Protime)PT. 20.7 SECONDS (11.7-14.9)
[2021-04-13 11:02] LABS: Anion Gap 7 (5-15); BUN 19 mg/dL (7-18); BUN/Creat Ratio 16.1 RATIO (10-20); Calcium,Total 9.1 mg/dL (8.5-10.1); Chloride 107 mmol/L (98-107); Creatinine, Serum 1.18 mg/dL (0.55-1.02); EST Glomerular Filtration Rate 47 mL/min (>60); Est Glom Filt Rate - Afr Amer 56 mL/min (>60); Estimated Creatinine Clearance 34.41 ml/min; Glucose 90 mg/dL (74-106); Potassium 3.7 mmol/L (3.5-5.1); Sodium Level 142 mmol/L (136-145)
--- NOTE | 2021-04-13 12:12 | PCM.HP.STD ---
[facility] - General General Date of Admission: 04/13/21 Date of Service: 04/13/21 Chief Complaint: GI bleed [facility] Narrative MICHELLE JIMENEZ, is a 81 F who presents with large amount of GI bleed, painless that happened today. Patient has noticed some GI bleeding ongoing for about 3 days of feeling when she wipes resolved. She has history of diverticulosis with external hemorrhoids. Today she notices a large amount of bright red bleeding. She denied any chest pain or dizziness or palpitation. She is on Coumadin for proximal atrial fibrillation and mitral valve repair. She denied any abdominal pain. No sick contacts. No upper respiratory illness. [facility] Medical History Acute respiratory failure with hypoxia Atrial fibrillation Atrial flutter with rapid ventricular response Bladder cancer Chronic diastolic heart failure COPD (chronic obstructive pulmonary disease) Essential hypertension History of cardioversion (~04/25/20) History of left heart catheterization (LHC) (~11/30/17) Hyperlipidemia Hypertension Hypertrophic obstructive cardiomyopathy (HOCM) LBBB (left bundle branch block) Long QT interval Non-Hodgkin lymphoma Nonrheumatic mitral (valve) insufficiency Paroxysmal atrial fibrillation Paroxysmal atrial fibrillation Persistent atrial fibrillation Home Medications umeclidinium-vilanterol 1 puff INHALATION DAILY 10/06/17 [History Last Taken 05/11/18 1 PUFF] cholecalciferol (vitamin D3) 1,000 unit PO DAILY 08/06/18 [History Last Taken Unknown] potassium chloride 10 meq PO DAILY #30 tab 08/16/18 [Rx Last Taken Unknown] albuterol sulfate 5 mg/mL(0.5 %) solution for nebulization 2.5 mg INHALATION TID-QID PRN 04/06/19 [History Last Taken Unknown] magnesium oxide 400 mg PO DAILY tab 04/06/19 [History Last Taken Unknown] furosemide 20 mg tablet 20 mg PO DAILY #90 tab 03/14/20 [Rx Last Taken Unknown] warfarin 1.5 mg PO DAILY 12/06/20 [History Last Taken Unknown] lisinopril 10 mg tablet 10 mg PO DAILY #90 tab 03/07/21 [Rx Last Taken Unknown] metoprolol succinate 50 mg tablet,extended release 24 hr 50 mg PO DAILY #60 tab 03/11/21 [Rx Last Taken Unknown] metoprolol tartrate 25 mg PO BID PRN #10 tab 03/24/21 [Rx Last Taken Unknown] warfarin 2 mg PO 04/13/21 [History Last Taken Unknown] Allergy/AdvReac Type Severity Reaction Status Date / Time allopurinol Allergy Rash Verified 04/13/21 09:48 tramadol AdvReac dizzy Verified 04/13/21 09:48 Family History Father Heart disease Hypertension Surgical History History of bladder surgery History of mitral valve repair (~07/30/18) History of ventricular septal myectomy (~07/30/18) Social History Smoking Status: Former smoker pack-years: 58 how long ago did patient quit smokin years ago alcohol intake: current alcohol intake frequency: holidays/special occasions only substance use type: does not use caffeine: No ROS ROS Narrative Constitutional: Reports: Denies: Anorexia, Chills, Fever, Night Sweats, Weight Change Eyes: Denies: Blurred vision, Cataracts, Conjunctivae Inflammation, Pain, Redness, Vision Change HEENT: Denies: Difficulty Hearing, Difficulty Swallowing, Head Aches, Hearing Changes, Sinus Congestion, Sinus Drainage Cardiovascular: Denies: Chest Pain, Orthopnea, Palpitations Respiratory: Denies: Cough, Shortness of breath at rest, Sputum production Gastrointestinal: See HPI Denies: Abdominal Pain, Nausea, Vomiting Genitourinary: Denies: Dysuria Musculoskeletal: Denies: Joint Pain, Joint stiffness, Joint swelling, Joint Tenderness Skin: Denies: Rash, Wounds Neurological: Denies: Numbness, Tingling, Focal weakness Vital Signs Vital Signs Vital Signs: 04/13/21 09:48 04/13/21 12:00 Temperature 96.7 F L Temperature Source Temporal Pulse Rate 94 98 Respiratory Rate 14 16 Blood Pressure 145/77 H 106/74 Blood Pressure Mean 99 84 Pulse Ox 98 97 Oxygen Delivery Method Room Air Room Air Weight Weight: 66.9 kg Body Mass Index (BMI) 23.8 Physical Exam Narrative Physical exam: General: Alert, Oriented x3, Cooperative, No apparent distress, Well developed HEENT: Atraumatic Oral: Moist Mucosa Neck: Supple Lungs: Clear to auscultation Cardiovascular: HS I+II, regular, no murmurs Abdomen: Bowel Sounds Present, Soft, Non Tender Extremities: No edema Skin: No rashes, No breakdown Neurological: Grossly intact Psych/Mental Status: Appropriate Results Lab / Micro Data Result Diagrams: 04/13/21 10:05 04/13/21 10:05 Labs: Laboratory Results - last 24 hr 04/13/21 04/13/21 04/13/21 10:05 10:05 10:05 WBC 10.3 RBC 5.74 H Hgb 15.3 H Hct 48.2 H MCV 84.0 MCH 26.7 L MCHC 31.7 L RDW Std Deviation 46.3 H RDW Coeff of Neelima 15.4 H Plt Count 306 MPV 10.7 Immature Gran % (Auto) 0.500 Neut % (Auto) 73.4 H Lymph % (Auto) 15.5 L [place] % (Auto) 8.4 Eos % (Auto) 1.1 Baso % (Auto) 1.1 H Absolute Neuts (auto) 7.6 Absolute Lymphs (auto) 1.60 Nucleated RBC % 0 PT 20.7 H INR 1.9 APTT 33.0 Sodium 142 Potassium 3.7 Chloride 107 Carbon Dioxide 28.0 Anion Gap 7 BUN 19 H Creatinine 1.18 H Estim Creat Clear Calc 34.41 Est GFR (MDRD) Af Amer 56 L Est GFR (MDRD) Non-Af 47 L BUN/Creatinine Ratio 16.1 Glucose 90 Calcium 9.1 Micro: Microbiology 04/13/21 10:34 Stool Occult Blood (HUSSEIN) - Final Stool Occult Blood Positive Assessment & Plan Assessment/Plan (1) Acute GI bleeding: (2) Long-term use of high-risk medication: (3) Persistent atrial fibrillation: (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 Acute GI bleed, Unknown etiology For now, History of diverticulosis, Hemoglobin has remained stable Will hold Coumadin, trend H&H, gentle IV fluids, IV PPI twice daily General surgery consulted 2. Hypertension, controlled, continue on home blood pressure medications 3. Rest of chronic medical conditions including hypertrophic cardiomyopathy status post septal myomectomy, mitral valve repair, CKD stage IIIa - all remained stable. We will get an EKG. Discussed with supervisor advertising dispatch clerks on-call; patient has history of mitral valve repair with septal appendage closure and therefore does not need chronic anticoagulation 4. DVT PPx- SCDs on account of bleeding Charges/Coding Visit Charges Inpatient E&M: 93720 Subs Hosp L2
--- NOTE | 2021-04-13 14:01 | EX.PCM.CON.S ---
Assessment & Plan Assessment/Plan (1) Acute GI bleeding: PLAN: The patient is having blood per rectum and reports that this has been going on for the past few months. Patient has never had a colonoscopy and she is on Coumadin for a mitral valve replacement. If possible I recommended the patient stop Coumadin but the hospitalist was checking with the manager of health to see if this is possible. I recommended the patient have a bowel prep tomorrow and colonoscopy on Thursday. Continue to recheck hemoglobins. The patient would like outpatient colonoscopy if possible and I believe this may be feasible if she stops bleeding but if she continues to bleed I would highly recommend her having an inpatient colonoscopy. I believe that she has high risk of not following up for her colonoscopy as an outpatient. Patient may have clear liquid diet. Continue to observe and check hemoglobin. I will order bowel prep tomorrow and plan for EGD and colonoscopy Thursday. Guillermo Valdivia MD Pager: [facility] [address] [place] [address], [address] [place] [address] Office: HPI Consult Data Date of Consult: 04/13/21 HPI Narrative HPI Narrative: MICHELLE JIMENEZ, is a 81 F who presents with bright red blood per rectum. The patient reports that this is been going on for the last few days but in asking her more questions and reviewing her chart it seems that this is been going on for months. Patient was in the emergency room in November with bright red blood per rectum and never followed up with a wallet assembler. Patient has a heart history with mitral valve replacement and is on Coumadin for this. Patient is not having any abdominal pain or nausea or vomiting. She has never had a colonoscopy. [facility] Medical History (Updated 04/13/21 @ 12:[address] Gerry Gamino DO) Acute respiratory failure with hypoxia Atrial fibrillation Atrial flutter with rapid ventricular response Bladder cancer Chronic diastolic heart failure COPD (chronic obstructive pulmonary disease) Essential hypertension History of cardioversion (~04/25/20) History of left heart catheterization (LHC) (~11/30/17) Hyperlipidemia Hypertension Hypertrophic obstructive cardiomyopathy (HOCM) LBBB (left bundle branch block) Long QT interval Non-Hodgkin lymphoma Nonrheumatic mitral (valve) insufficiency Paroxysmal atrial fibrillation Paroxysmal atrial fibrillation Persistent atrial fibrillation Home Medications umeclidinium-vilanterol 1 puff INHALATION DAILY 10/06/17 [History Last Taken 05/11/18 1 PUFF] cholecalciferol (vitamin D3) 1,000 unit PO DAILY 08/06/18 [History Last Taken Unknown] potassium chloride 10 meq PO DAILY #30 tab 08/16/18 [Rx Last Taken Unknown] albuterol sulfate 5 mg/mL(0.5 %) solution for nebulization 2.5 mg INHALATION TID-QID PRN 04/06/19 [History Last Taken Unknown] magnesium oxide 400 mg PO DAILY tab 04/06/19 [History Last Taken Unknown] furosemide 20 mg tablet 20 mg PO DAILY #90 tab 03/14/20 [Rx Last Taken Unknown] warfarin 1.5 mg PO DAILY 12/06/20 [History Last Taken Unknown] lisinopril 10 mg tablet 10 mg PO DAILY #90 tab 03/07/21 [Rx Last Taken Unknown] metoprolol succinate 50 mg tablet,extended release 24 hr 50 mg PO DAILY #60 tab 03/11/21 [Rx Last Taken Unknown] metoprolol tartrate 25 mg PO BID PRN #10 tab 03/24/21 [Rx Last Taken Unknown] Allergy/AdvReac Type Severity Reaction Status Date / Time allopurinol Allergy Rash Verified 04/13/21 09:48 tramadol AdvReac dizzy Verified 04/13/21 09:48 Family History Father Heart disease Hypertension Surgical History History of bladder surgery History of mitral valve repair (~07/30/18) History of ventricular septal myectomy (~07/30/18) Social History Smoking Status: Former smoker pack-years: 58 how long ago did patient quit smokin years ago alcohol intake: current alcohol intake frequency: holidays/special occasions only substance use type: does not use caffeine: No ROS Constitutional Constitutional: Denies anorexia, fatigue or fever(s) Eyes Eyes: Denies change in vision ENT HEENT: Denies abnormal hearing Cardiovascular Cardiovascular: Denies chest pain Gastrointestinal Gastrointestinal: Reports rectal bleeding; Denies abdominal pain, constipation, diarrhea, hematemesis, melena, nausea or vomiting Genitourinary Genitourinary: Denies change in urinary stream Musculoskeletal Musculoskeletal: Denies abnormal gait Integumentary Integumentary: Denies jaundice Neurologic Neurologic: Denies abnormal gait Physical Exam Const alert and oriented x3 HEENT normocephalic Eyes PERRL Neck full ROM Resp normal respiratory effort Cardio Rate: regular rate Rhythm: regular rhythm GI soft to palpation, non-tender and non-distended Lab / Micro Data Result Diagrams: 04/13/21 10:05 04/13/21 10:05 Labs: Laboratory Results - last 24 hr 04/13/21 04/13/21 04/13/21 10:05 10:05 10:05 WBC 10.3 RBC 5.74 H Hgb 15.3 H Hct 48.2 H MCV 84.0 MCH 26.7 L MCHC 31.7 L RDW Std Deviation 46.3 H RDW Coeff of Neelima 15.4 H Plt Count 306 MPV 10.7 Immature Gran % (Auto) 0.500 Neut % (Auto) 73.4 H Lymph % (Auto) 15.5 L [place] % (Auto) 8.4 Eos % (Auto) 1.1 Baso % (Auto) 1.1 H Absolute Neuts (auto) 7.6 Absolute Lymphs (auto) 1.60 Nucleated RBC % 0 PT 20.7 H INR 1.9 APTT 33.0 Sodium 142 Potassium 3.7 Chloride 107 Carbon Dioxide 28.0 Anion Gap 7 BUN 19 H Creatinine 1.18 H Estim Creat Clear Calc 34.41 Est GFR (MDRD) Af Amer 56 L Est GFR (MDRD) Non-Af 47 L BUN/Creatinine Ratio 16.1 Glucose 90 Calcium 9.1 Micro: Microbiology 04/13/21 10:34 Stool Occult Blood (HUSSEIN) - Final Stool Occult Blood Positive
--- NOTE | 2021-04-13 14:37 | EKG12_ITS ---
Test Reason : CP, CHEST PRESSURE Blood Pressure : / mmHG Vent. Rate : 090 BPM Atrial Rate : 340 BPM P-R Int : 000 ms QRS Dur : 130 ms QT Int : 424 ms P-R-T Axes : 000 -29 174 degrees QTc Int : 518 ms Atrial flutter with variable A-V block Left bundle branch block Abnormal ECG When compared with ECG of 13-APR-2021 15:40, MANUAL COMPARISON REQUIRED, DATA IS UNCONFIRMED Confirmed by CLAUDIA FORTUNE, KACIE ([id number]), supervising editor news reel NAYELI NEGRON ([id number]) on 04/16/2021 9:08:23 AM Referred By: CALLI Confirmed By:KACIE TAYLOR MD
[2021-04-13] MEDS: 0.9% Normal Saline 1,000 ML 75 ML IV (14:44)
--- NOTE | 2021-04-13 14:50 | CASEMGMT ---
RN MICHELLE Face to Face with patient for initial transition planning/care coordination assessment. RN CM introduced self and role at [facility]. Patient lying in bed, alert and oriented. Patient willing to participate in assessment and is able to answer all questions appropriately. Care providers, pharmacy, and demographics verified. Patient wishes to discharge home, denies need for home health at this time. Patient states she has no further needs or concerns at this time. CM to follow for discharge planning needs that may arise. PCP: Yanet Specialists: otto Rodríguez Preferred Pharmacy: [facility] Insurance: Aetna [facility] Prescription Benefit: yes Living Will/HPOA: none LNOK: son Living Arrangements: Patient lives alone in a single story home with 2 step and railing to enter the home. Patient states she is independent at home. Transportation: self/son DME/HHC: Patient states she has cane and home oxygen concentrator at through [employer] that she uses occasionally. Disposition Plan: Patient to discharge home with follow-up plans in place. Alexa GOLDSTEIN, RN, CM
[2021-04-13] MEDS: Metoprolol(XL)Succ 50 MG Tablet PO (15:24)
[2021-04-13 16:44] LABS: Hematocrit 43.9 % (37-47); Hemoglobin 13.8 g/dL (12.0-15.0)
[2021-04-13 23:52] LABS: Hematocrit 41.5 % (37-47); Hemoglobin 12.9 g/dL (12.0-15.0)
[2021-04-13] MEDS: DiphenhydrAMINE 25 MG Capsule PO (23:54)
[2021-04-13] MEDS: Acetaminophen 500 MG Tablet PO (23:54)
[2021-04-14] VITALS (19 sets, daily range): BP systolic 115–140; BP diastolic 61–96; PULSE 58–108; RESP 16–24; TEMP 36.4–36.9; O2SAT 94–98
[2021-04-14] MEDS: 0.9% Normal Saline 1,000 ML 75 ML IV (05:12)
[2021-04-14 05:18] LABS: Absolute Lymphocyte Count 2.01 X10^3/uL (0.83-4.51); Absolute Neutrophil Count 3.7 X10^3/uL (2.0-7.7); Basophil# 0.09 X10^3/uL; Basophil% 1.4 % (0-1); Eosinophil# 0.18 X10^3/uL; Eosinophils% 2.8 % (0-5); Hematocrit 42.6 % (37-47); Hemoglobin 13.1 g/dL (12.0-15.0); Lymphocyte # 2.01 X10^3/ul (0.83-4.51); Lymphocyte % 30.7 % (19-41); Mean Corp Hgb Conc 30.8 g/dL (32-36); Mean Corpuscular Hgb 26.1 pg (27.0-32.0); Mean Corpuscular Volume 84.9 fL (81-99); Mean Platelet Vol. 10.3 fl (6.2-12.0); Monocyte# 0.49 X10^3/uL; Monocyte% 7.5 % (0-10); NRBC Flagged by Analyzer 0 % (0-5); Neutrophil # 3.74 X10^3/uL (2.7-7.7); Neutrophil % 57.1 % (47-70); Platelet Count 240 K/mm3 (150-450); RBC Distribution Width SD 46.5 fl (35.1-43.9); Red Blood Count 5.02 M/mm3 (4.2-5.4); White Blood Count 6.5 K/mm3 (4.4-11.0)
[2021-04-14 05:42] LABS: ALB/GLOB Ratio 1.1 RATIO (0.9-2.4); AST(SGOT) 14 U/L (15-37); Alanine Aminotransfer ALT/SGPT 16 U/L (13-56); Albumin, Serum 2.8 g/dL (3.2-5.0); Alkaline Phosphatase 61 U/L (45-117); Anion Gap 4 (5-15); BUN 13 mg/dL (7-18); BUN/Creat Ratio 14.6 RATIO (10-20); Calcium,Total 8.4 mg/dL (8.5-10.1); Chloride 109 mmol/L (98-107); Creatinine, Serum 0.89 mg/dL (0.55-1.02); EST Glomerular Filtration Rate 65 mL/min (>60); Est Glom Filt Rate - Afr Amer 78 mL/min (>60); Estimated Creatinine Clearance 45.62 ml/min; Globulin 2.6 g/dL (2.2-4.2); Glucose 84 mg/dL (74-106); Potassium 3.6 mmol/L (3.5-5.1); Protein, Total 5.4 g/dL (6.4-8.2); Sodium Level 142 mmol/L (136-145)
[2021-04-14 06:20] LABS: International Normalized Ratio 2.2; Prothrombin Time (Protime)PT. 23.4 SECONDS (11.7-14.9)
--- NOTE | 2021-04-14 07:52 | PN.SURG_ITS ---
Subjective Subjective The patient had a bloody bowel movement this morning. No nausea vomiting or abdominal pain. Objective Data Objective Data Vital Signs: Vital Signs Temp Pulse Resp BP Pulse Ox 97.6 F L 68 16 117/73 94 04/14/21 02:00 04/14/21 03:00 04/14/21 02:00 04/14/21 02:00 04/14/21 07:30 Oxygen Delivery Method Room Air Weight: 147 lb 0.773 oz Body Mass Index (BMI) 23.7 Intake & Output: Intake and Output for Last 24 Hours 04/12/21 04/13/21 04/14/21 23:59 23:59 23:59 Intake Total 1097.5 / 1097.5 522.5 / 522.5 Balance 1097.5 / 1097.5 522.5 / 522.5 Lab / Micro Data Result Diagrams: 04/14/21 05:00 04/14/21 05:00 Labs: Laboratory Results - last 24 hr 04/13/21 04/13/21 04/13/21 10:05 10:05 10:05 WBC 10.3 RBC 5.74 H Hgb 15.3 H Hct 48.2 H MCV 84.0 MCH 26.7 L MCHC 31.7 L RDW Std Deviation 46.3 H RDW Coeff of Neelima 15.4 H Plt Count 306 MPV 10.7 Immature Gran % (Auto) 0.500 Neut % (Auto) 73.4 H Lymph % (Auto) 15.5 L [place] % (Auto) 8.4 Eos % (Auto) 1.1 Baso % (Auto) 1.1 H Absolute Neuts (auto) 7.6 Absolute Lymphs (auto) 1.60 Nucleated RBC % 0 PT 20.7 H INR 1.9 APTT 33.0 Sodium 142 Potassium 3.7 Chloride 107 Carbon Dioxide 28.0 Anion Gap 7 BUN 19 H Creatinine 1.18 H Estim Creat Clear Calc 34.41 Est GFR (MDRD) Af Amer 56 L Est GFR (MDRD) Non-Af 47 L BUN/Creatinine Ratio 16.1 Glucose 90 Calcium 9.1 Total Bilirubin AST ALT Alkaline Phosphatase Total Protein Albumin Globulin Albumin/Globulin Ratio 04/13/21 04/13/21 04/14/21 16:25 22:48 05:00 WBC 6.5 RBC 5.02 Hgb 13.8 12.9 13.1 Hct 43.9 41.5 42.6 MCV 84.9 MCH 26.1 L MCHC 30.8 L RDW Std Deviation 46.5 H RDW Coeff of Neelima 15.0 H Plt Count 240 MPV 10.3 Immature Gran % (Auto) 0.500 Neut % (Auto) 57.1 Lymph % (Auto) 30.7 [place] % (Auto) 7.5 Eos % (Auto) 2.8 Baso % (Auto) 1.4 H Absolute Neuts (auto) 3.7 Absolute Lymphs (auto) 2.01 Nucleated RBC % 0 PT INR APTT Sodium Potassium Chloride Carbon Dioxide Anion Gap BUN Creatinine Estim Creat Clear Calc Est GFR (MDRD) Af Amer Est GFR (MDRD) Non-Af BUN/Creatinine Ratio Glucose Calcium Total Bilirubin AST ALT Alkaline Phosphatase Total Protein Albumin Globulin Albumin/Globulin Ratio 04/14/21 04/14/21 05:00 05:00 WBC RBC Hgb Hct MCV MCH MCHC RDW Std Deviation RDW Coeff of Neelima Plt Count MPV Immature Gran % (Auto) Neut % (Auto) Lymph % (Auto) [place] % (Auto) Eos % (Auto) Baso % (Auto) Absolute Neuts (auto) Absolute Lymphs (auto) Nucleated RBC % PT 23.4 H INR 2.2 APTT Sodium 142 Potassium 3.6 Chloride 109 H Carbon Dioxide 29.0 Anion Gap 4 L BUN 13 Creatinine 0.89 Estim Creat Clear Calc 45.62 Est GFR (MDRD) Af Amer 78 Est GFR (MDRD) Non-Af 65 BUN/Creatinine Ratio 14.6 Glucose 84 Calcium 8.4 L Total Bilirubin 0.60 AST 14 L ALT 16 Alkaline Phosphatase 61 Total Protein 5.4 L Albumin 2.8 L Globulin 2.6 Albumin/Globulin Ratio 1.1 Micro: Microbiology 04/13/21 10:34 Stool Stool Occult Blood (HUSSEIN) - Final Occult Blood Positive Physical Exam Const oriented x3 and no apparent distress Resp normal respiratory effort Cardio regular rate and regular rhythm GI normal to inspection, nondistended, normoactive bowel sounds Assessment & Plan Assessment/Plan (1) Acute GI bleeding: PLAN: The patient had a bloody bowel movement this morning. Her hemoglobin is stable. Her INR has risen to 2.2 and I have asked the plasma be given. Plan for EGD and colonoscopy tomorrow. I explained endoscopy in detail to the patient. I explained the risks including but not limited to stroke or heart attack with anesthesia, perforation of the GI tract, bleeding, infection. I explained that any of these could necessitate further emergency surgery. The patient understands and all questions were answered sufficiently. The patient wishes to proceed with procedure. Guillermo Valdivia MD Pager: [facility] [address] [place] [address] [address] [place] [address] Office:
[2021-04-14] MEDS: Phytonadione (Vit K1) 5 MG TABLET PO (08:08)
[2021-04-14 08:18] LABS: International Normalized Ratio 2.1; Prothrombin Time (Protime)PT. 22.4 SECONDS (11.7-14.9)
[2021-04-14] MEDS: Metoprolol(XL)Succ 50 MG Tablet PO (09:51)
--- NOTE | 2021-04-14 10:23 | PCM.PN.HOSP ---
Subjective Subjective Patient was seen and examined. She had 1 bloody bowel movement this morning. INR is 2.2. Will give FFP's. Objective Data Objective Data Vital Signs: Vital Signs Temp Pulse Resp BP Pulse Ox 97.7 F L 81 18 134/74 H 98 04/14/21 09:48 04/14/21 09:51 04/14/21 09:48 04/14/21 09:48 04/14/21 09:48 Oxygen Delivery Method Room Air Weight: 66.7 kg Body Mass Index (BMI) 23.7 Intake & Output: Intake and Output for Last 24 Hours 04/12/21 04/13/21 04/14/21 23:59 23:59 23:59 Intake Total 1097.5 / 1097.5 863.75 / 863.75 Balance 1097.5 / 1097.5 863.75 / 863.75 Lab / Micro Data Result Diagrams: 04/14/21 05:00 04/14/21 05:00 Labs: Laboratory Results - last 24 hr 04/13/21 04/13/21 04/13/21 10:05 10:05 10:05 WBC 10.3 RBC 5.74 H Hgb 15.3 H Hct 48.2 H MCV 84.0 MCH 26.7 L MCHC 31.7 L RDW Std Deviation 46.3 H RDW Coeff of Neelima 15.4 H Plt Count 306 MPV 10.7 Immature Gran % (Auto) 0.500 Neut % (Auto) 73.4 H Lymph % (Auto) 15.5 L [place] % (Auto) 8.4 Eos % (Auto) 1.1 Baso % (Auto) 1.1 H Absolute Neuts (auto) 7.6 Absolute Lymphs (auto) 1.60 Nucleated RBC % 0 PT 20.7 H INR 1.9 APTT 33.0 Sodium 142 Potassium 3.7 Chloride 107 Carbon Dioxide 28.0 Anion Gap 7 BUN 19 H Creatinine 1.18 H Estim Creat Clear Calc 34.41 Est GFR (MDRD) Af Amer 56 L Est GFR (MDRD) Non-Af 47 L BUN/Creatinine Ratio 16.1 Glucose 90 Calcium 9.1 Total Bilirubin AST ALT Alkaline Phosphatase Total Protein Albumin Globulin Albumin/Globulin Ratio Blood Type A1 Antigen Typing Rho(D) Type 04/13/21 04/13/21 04/13/21 10:05 16:25 22:48 WBC RBC Hgb 13.8 12.9 Hct 43.9 41.5 MCV MCH MCHC RDW Std Deviation RDW Coeff of Neelima Plt Count MPV Immature Gran % (Auto) Neut % (Auto) Lymph % (Auto) [place] % (Auto) Eos % (Auto) Baso % (Auto) Absolute Neuts (auto) Absolute Lymphs (auto) Nucleated RBC % PT INR APTT Sodium Potassium Chloride Carbon Dioxide Anion Gap BUN Creatinine Estim Creat Clear Calc Est GFR (MDRD) Af Amer Est GFR (MDRD) Non-Af BUN/Creatinine Ratio Glucose Calcium Total Bilirubin AST ALT Alkaline Phosphatase Total Protein Albumin Globulin Albumin/Globulin Ratio Blood Type Cancelled A1 Antigen Typing Cancelled Rho(D) Type Cancelled 04/14/21 04/14/21 04/14/21 05:00 05:00 05:00 WBC 6.5 RBC 5.02 Hgb 13.1 Hct 42.6 MCV 84.9 MCH 26.1 L MCHC 30.8 L RDW Std Deviation 46.5 H RDW Coeff of Neelima 15.0 H Plt Count 240 MPV 10.3 Immature Gran % (Auto) 0.500 Neut % (Auto) 57.1 Lymph % (Auto) 30.7 [place] % (Auto) 7.5 Eos % (Auto) 2.8 Baso % (Auto) 1.4 H Absolute Neuts (auto) 3.7 Absolute Lymphs (auto) 2.01 Nucleated RBC % 0 PT 23.4 H INR 2.2 APTT Sodium 142 Potassium 3.6 Chloride 109 H Carbon Dioxide 29.0 Anion Gap 4 L BUN 13 Creatinine 0.89 Estim Creat Clear Calc 45.62 Est GFR (MDRD) Af Amer 78 Est GFR (MDRD) Non-Af 65 BUN/Creatinine Ratio 14.6 Glucose 84 Calcium 8.4 L Total Bilirubin 0.60 AST 14 L ALT 16 Alkaline Phosphatase 61 Total Protein 5.4 L Albumin 2.8 L Globulin 2.6 Albumin/Globulin Ratio 1.1 Blood Type A1 Antigen Typing Rho(D) Type 04/14/21 07:47 WBC RBC Hgb Hct MCV MCH MCHC RDW Std Deviation RDW Coeff of Neelima Plt Count MPV Immature Gran % (Auto) Neut % (Auto) Lymph % (Auto) [place] % (Auto) Eos % (Auto) Baso % (Auto) Absolute Neuts (auto) Absolute Lymphs (auto) Nucleated RBC % PT 22.4 H INR 2.1 APTT Sodium Potassium Chloride Carbon Dioxide Anion Gap BUN Creatinine Estim Creat Clear Calc Est GFR (MDRD) Af Amer Est GFR (MDRD) Non-Af BUN/Creatinine Ratio Glucose Calcium Total Bilirubin AST ALT Alkaline Phosphatase Total Protein Albumin Globulin Albumin/Globulin Ratio Blood Type A1 Antigen Typing Rho(D) Type Micro: Microbiology 04/13/21 10:34 Stool Stool Occult Blood (HUSSEIN) - Final Occult Blood Positive Physical Exam Narrative Physical exam: General: Alert, Oriented x3, Cooperative, No apparent distress, Well developed HEENT: Atraumatic Oral: Moist Mucosa Neck: Supple Lungs: Clear to auscultation Cardiovascular: HS I+II, irregular, no murmurs Abdomen: Bowel Sounds Present, Soft, Non Tender Extremities: No edema Skin: No rashes, No breakdown Neurological: Grossly intact Psych/Mental Status: Appropriate Assessment & Plan Assessment/Plan (1) Acute GI bleeding: (2) Long-term use of high-risk medication: (3) Persistent atrial fibrillation: (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 Acute GI bleed, unknown etiology, likely lower GI bleeding History of diverticulosis, Hemoglobin has remained stable INR this morning is 2.2, will give FFP and vitamin K we will repeat INR in a.m. Continue to hold Coumadin, trend H&H, gentle IV fluids, IV PPI twice daily General surgery consulted 2. Hypertension, controlled, continue on home blood pressure medications 3. Rest of chronic medical conditions including hypertrophic cardiomyopathy status post septal myomectomy, mitral valve repair, CKD stage IIIa - all remained stable. EKG shows A. fib, left bundle branch block, not new Discussed with silver solution mixer on-call; patient has history of mitral valve repair with septal myomectomy and appendage closure and therefore does not need bridging or be kept on heparin 4. DVT PPx- SCDs on account of bleeding Charges/Coding Visit Charges Inpatient E&M: 53465 Subs Hosp L2
--- NOTE | 2021-04-14 12:23 | NURSING ---
IV very positional, pt declines a 2nd iv site. pt states she will pay closer attention to positioning of arm to help facilitate FFP infusion.
--- NOTE | 2021-04-14 14:13 | EKG12_ITS ---
Test Reason : Blood Pressure : / mmHG Vent. Rate : 093 BPM Atrial Rate : 357 BPM P-R Int : 000 ms QRS Dur : 134 ms QT Int : 418 ms P-R-T Axes : 000 -24 158 degrees QTc Int : 519 ms Atrial flutter with variable A-V block with premature ventricular or aberrantly conducted complexes Left bundle branch block Abnormal ECG When compared with ECG of 24-MAR-2021 13:41, Atrial flutter has replaced Atrial fibrillation Confirmed by CLAUDIA FORTUNE, KACIE ([id number]), society editor NAYELI NEGRON ([id number]) on 04/16/2021 9:09:29 AM Referred By: OMAR Confirmed By:KACIE TAYLOR MD
[2021-04-14] MEDS: Ipratropium/Albuterol Sulfate 3 ML AMPUL.NEB INHALATION (14:34)
--- NOTE | 2021-04-14 14:36 | NURSING ---
CPS at bedside, EKG cortexted to Pt receiving breathing tx.
--- NOTE | 2021-04-14 14:37 | CPS ---
Pt c/o SOB, unable to recline back in bed, pressure at base of sternum. Gave aerosol as ordered, pt felt better after.
--- NOTE | 2021-04-14 15:00 | NURSING ---
Faustino in blood bank/lab aware not giving 2nd unit FFP per MD order.
[2021-04-14 15:01] LABS: International Normalized Ratio 1.6; Prothrombin Time (Protime)PT. 18.2 SECONDS (11.7-14.9)
[2021-04-14] MEDS: Furosemide 40 MG/4 ML Vial IV (15:25)
[2021-04-14] MEDS: 0.9% Saline Lock 10 ML Syringe IV (15:25)
[2021-04-14] MEDS: Bisacodyl 5 MG Tablet 20 MG PO (15:26)
--- NOTE | 2021-04-14 16:24 | NURSING ---
spoke with Maria G in dietary regarding needing 64 oz bottle of gatorade for bowel prep- states dietary will send one up.
[2021-04-14] MEDS: Polyethylene Glycol 3350 BOWEL PREP PO (17:28)
[2021-04-14] MEDS: DiphenhydrAMINE 25 MG Capsule PO (23:29)
[2021-04-14] MEDS: Acetaminophen 500 MG Tablet PO (23:29)
[2021-04-15] VITALS (15 sets, daily range): BP systolic 102–121; BP diastolic 65–85; PULSE 88–118; RESP 16–22; TEMP 36.3–36.7; O2SAT 91–98; BMI 23.5
--- NOTE | 2021-04-15 | GASB_PTH ---
PATIENT: MICHELLE JIMENEZ LOC: [facility] U#:[id number] AGE/SX: 81/F ROOM: [facility] RE04/13/[address]: Dr. Isrrael Byrd MD : 1940 BED: 1 DIS: 04/15/2021 SPEC #: [id number] RECD: 04/15/21 13:05 STATUS: TAMMI BLANCHARD #: [id number] ROSALIO: 04/15/21 00:[address]: Guillermo Valdivia DEPT: SURGICAL PATHOLOGY RECD BY: Karthikeyan Downey ENTERED: 04/15/21 13:05 SP TYPE: Gastric Bx OTHR DR: MD Dr. Mimi Walters MD Dr. David Kittoe, MD Dr. Liza D Talampas, MD Tissues: A - Gastric mucous membrane Sigmoid colon biopsy Procedures: Surgery Specimen Level IV Comments: @ Ordering doctor for SUIV edited from to @ by SHEBA at 04/15/21 1326 @ Submitting doctor edited from to @ by RGOOD at 04/15/21 1326 HEADER OPERATION: [place] [place] DIAGNOSIS: GI bleed TISSUE SUBMITTED: A ? Biopsy of antrum for H. pylori and path, B ? Sigmoid polyp MICROSCOPIC DIAGNOSIS A. Gastric antrum, biopsy: Chronic gastritis. See comment. B. Sigmoid colon polyp, biopsy: Fragments of tubulovillous adenoma. AM:everardo 04/16/2021 COMMENT A. The results of immunohistochemistry for Helicobacter pylori will be reported separately ([id number]). MICROSCOPIC DESCRIPTION Slides are reviewed. GROSS DESCRIPTION A - Received in fixative is one container labeled with the patient's name and designated biopsy antrum. The specimen consists of two irregular fragments of light montes soft tissue that in aggregate measure 0.6 x 0.3 x 0.1 cm. The specimen is totally submitted in one cassette. B - Received in fixative is one container labeled with the patient's name and designated sigmoid polyp. The specimen consists of a montes-pink, congested polyp measuring 1.2 x 1 x 0.9 cm. Apparent base is inked black. It is serially sectioned. Also present in the container are fragments of montes soft tissue measuring 0.3 x 0.3 x 0.1 cm. The entire specimen is submitted in one cassette. / SJ:rg 04/15/21 TC:1 CPT: 13463 x2
[2021-04-15 06:21] LABS: Absolute Neutrophil Count 10.2 X10^3/uL (2.0-7.7); Basophil# 0.08 X10^3/uL; Basophil% 0.6 % (0-1); Eosinophils% 0.8 % (0-5); Hematocrit 45.9 % (37-47); Hemoglobin 13.8 g/dL (12.0-15.0); Lymphocyte % 12.8 % (19-41); Mean Corp Hgb Conc 30.1 g/dL (32-36); Mean Corpuscular Hgb 26.2 pg (27.0-32.0); Mean Corpuscular Volume 87.1 fL (81-99); Mean Platelet Vol. 10.6 fl (6.2-12.0); Monocyte# 0.47 X10^3/uL; Monocyte% 3.8 % (0-10); NRBC Flagged by Analyzer 0 % (0-5); Neutrophil # 10.17 X10^3/uL (2.7-7.7); Neutrophil % 81.6 % (47-70); Platelet Count 230 K/mm3 (150-450); RBC Distribution Width CV 15.1 % (11.6-14.6); RBC Distribution Width SD 47.8 fl (35.1-43.9); Red Blood Count 5.27 M/mm3 (4.2-5.4); White Blood Count 12.5 K/mm3 (4.4-11.0)
[2021-04-15 06:29] LABS: International Normalized Ratio 1.2; Prothrombin Time (Protime)PT. 14.9 SECONDS (11.7-14.9)
[2021-04-15 06:54] LABS: ALB/GLOB Ratio 1.1 RATIO (0.9-2.4); AST(SGOT) 17 U/L (15-37); Alanine Aminotransfer ALT/SGPT 17 U/L (13-56); Albumin, Serum 3.3 g/dL (3.2-5.0); Alkaline Phosphatase 64 U/L (45-117); Anion Gap 8 (5-15); BUN 11 mg/dL (7-18); BUN/Creat Ratio 10.7 RATIO (10-20); Calcium,Total 8.7 mg/dL (8.5-10.1); Chloride 104 mmol/L (98-107); Creatinine, Serum 1.03 mg/dL (0.55-1.02); EST Glomerular Filtration Rate 55 mL/min (>60); Est Glom Filt Rate - Afr Amer 66 mL/min (>60); Estimated Creatinine Clearance 39.42 ml/min; Globulin 3.1 g/dL (2.2-4.2); Glucose 95 mg/dL (74-106); Potassium 3.1 mmol/L (3.5-5.1); Protein, Total 6.4 g/dL (6.4-8.2); Sodium Level 139 mmol/L (136-145)
--- NOTE | 2021-04-15 10:30 | IMM_PTH ---
PATIENT: MICHELLE JIMENEZ LOC: [facility] U#:[id number] AGE/SX: 81/F ROOM: [facility] RE04/13/[address]: Dr. Isrrael Byrd MD : 1940 BED: 1 DIS: 04/15/2021 SPEC #: [id number] RECD: 04/15/21 13:27 STATUS: TAMMI REYolanda #: [id number] ROSALIO: 04/15/21 10:[address]: Guillermo Valdivia DEPT: IMMUNOHISTOCHEMISTRY RECD BY: Barbara Armendariz ENTERED: 04/15/21 13:28 SP TYPE: IMMUNO OTHR DR: MD Dr. Isrrael Guerrero MD Dr. Liza D Talampas, MD Tissues: A - Stomach, NOS Procedures: H Pylori (initial) PHYSICIAN & INSTITUTION [place] [id number] SPECIMEN INFORMATION: Tissue Source: A ? Antrum biopsy Clinical Info: GI bleed Specimen Number: [id number] CPT code: 31779 METHODOLOGY: Deparaffinized sections of prefer/formalin-fixed tissue or PAP/DQ stained slides are incubated with monoclonal/polyclonal antibodies/oligonucleotide probes. Localization is made via biotin free immunoperoxidase method. Appropriate controls are performed and reacted as expected. Results on target cell population are indicated in the following table: RESULTS: ANTIBODY / CLONE RESULT Block A H Pylori (polyclonal) negative These tests were developed and their performance characteristics determined by [facility]. They may not have been cleared or approved by the U.S. Food and Drug Administration. The FDA has determined that such clearance or approval is not necessary. INTERPRETATION: A. Antrum, biopsy: Negative for Helicobacter pylori organisms. AM:everardo 04/16/2021
--- NOTE | 2021-04-15 10:47 | OP.EGD_ITS ---
Patient Name: Priscilla Sharpe Procedure Date: 04/15/2021 10:07 AM Date of : 1940 Age: 81 Procedure: Upper GI endoscopy Indications: Hematochezia Providers: Guillermo Valdivia MD Medicines: Monitored Anesthesia Care Patient Profile: This is an 81 year old female. Refer to note in patient chart for documentation of history and physical. Complications: No immediate complications. Estimated blood loss: Minimal. Procedure: Pre-Anesthesia Assessment: - Prior to the procedure, a History and Physical was performed, and patient medications and allergies were reviewed. The patient's tolerance of previous anesthesia was also reviewed. The risks and benefits of the procedure and the sedation options and risks were discussed with the patient. All questions were answered, and informed consent was obtained. Prior Anticoagulants: The patient has taken Coumadin (warfarin), last dose was 5 days prior to procedure. After reviewing the risks and benefits, the patient was deemed in satisfactory condition to undergo the procedure. After obtaining informed consent, the endoscope was passed under direct vision. Throughout the procedure, the patient's blood pressure, pulse, and oxygen saturations were monitored continuously. The gastroscope was introduced through the mouth, and advanced to the third part of duodenum. The upper GI endoscopy was accomplished without difficulty. The patient tolerated the procedure well. Scope In: 10:17:48 AM Scope Out: 10:19:54 AM Total Procedure Duration Time 0 hours 2 minutes 6 seconds Findings: The esophagus was normal. The stomach was normal. The examined duodenum was normal. Biopsies were taken with a cold forceps in the gastric antrum for Helicobacter pylori testing. Impression: - Normal esophagus. - Normal stomach. - Normal examined duodenum. - Biopsies were taken with a cold forceps for Helicobacter pylori testing. Recommendation: - Resume previous diet. - [facility] patient [facility]. - Continue present medications. Procedure Code(s): --- Professional --- 88008, Esophagogastroduodenoscopy, flexible, transoral; with biopsy, single or multiple Diagnosis Code(s): --- Professional --- K92.1, Melena (includes Hematochezia) CPT copyright 2017 [employer]. All rights reserved. The codes documented in this report are preliminary and upon blender machine operator review may be revised to meet current compliance requirements. Guillermo Valdivia MD 04/15/2021 10:46:42 AM This report has been signed electronically. Number of Addenda: 0 Note Initiated On: 04/15/2021 10:07 AM
--- NOTE | 2021-04-15 10:47 | OP.CCLET_ITS ---
04/15/2021 Cheyanne Holt [address] [place] [address] Re : Upper GI endoscopy procedure for Priscilla Dardendonnie Dear Dr. Holt This procedure was performed on Thursday, April 15, 2021. My impressions and recommendations are as follows: Impressions : - Normal esophagus. - Normal stomach. - Normal examined duodenum. - Biopsies were taken with a cold forceps for Helicobacter pylori testing. Recommendations : - Resume previous diet. - Return patient to [facility] for [facility] care. - Continue present medications. My findings are described in the full procedure note, which is enclosed. If I can be of further assistance, please feel free to contact me at Doctor phone number(s): , Work: . Sincerely, Guillermo Valdivia MD 04/15/2021 10:46:42 AM This report has been signed electronically.
--- NOTE | 2021-04-15 10:51 | OP.CCLET_ITS ---
04/15/2021 Cheyanne Holt [address] [place] [address] Re : Colonoscopy procedure for Priscilla Annemarie Dear Dr. Holt This procedure was performed on Thursday, April 15, 2021. My impressions and recommendations are as follows: Impressions : - Diverticulosis in the sigmoid colon. - One large polyp in the sigmoid colon, removed with a hot snare. Resected and retrieved. Clip was placed. Recommendations : - [facility]. - Resume previous diet. - Continue present medications. - Await pathology results. - Repeat colonoscopy in 3 years for surveillance. My findings are described in the full procedure note, which is enclosed. If I can be of further assistance, please feel free to contact me at Doctor phone number(s): , Work: . Sincerely, Guillermo Valdivia MD 04/15/2021 10:50:44 AM This report has been signed electronically.
--- NOTE | 2021-04-15 10:51 | OP.COLON_ITS ---
Patient Name: Priscilla Sharpe Procedure Date: 04/15/2021 10:20 AM Date of : 1940 Age: 81 Procedure: Colonoscopy Indications: Hematochezia Providers: Guillermo Valdivia MD Medicines: Monitored Anesthesia Care Patient Profile: This is an 81 year old female. Refer to note in patient chart for documentation of history and physical. Last Colonoscopy: none. The patient's first colonoscopy is today. Complications: No immediate complications. Procedure: Pre-Anesthesia Assessment: - Prior to the procedure, a History and Physical was performed, and patient medications and allergies were reviewed. The patient's tolerance of previous anesthesia was also reviewed. The risks and benefits of the procedure and the sedation options and risks were discussed with the patient. All questions were answered, and informed consent was obtained. Prior Anticoagulants: The patient has taken Coumadin (warfarin), last dose was 5 days prior to procedure. After reviewing the risks and benefits, the patient was deemed in satisfactory condition to undergo the procedure. After I obtained informed consent, the scope was passed under direct vision. Throughout the procedure, the patient's blood pressure, pulse, and oxygen saturations were monitored continuously. The Colonoscope was introduced through the anus and advanced to the cecum, identified by appendiceal orifice and ileocecal valve. Scope In: 10:22:29 AM Scope Withdrawal Time 0 hours 11 minutes 42 seconds Scope Out: 10:40:05 AM Total Procedure Duration Time 0 hours 17 minutes 36 seconds Findings: Many small-mouthed diverticula were found in the sigmoid colon. A large polyp was found in the sigmoid colon. The polyp was pedunculated. The polyp was removed with a hot snare. Resection and retrieval were complete. For location marking, one hemostatic clip was successfully placed. There was no bleeding at the end of the procedure. Impression: - Diverticulosis in the sigmoid colon. - One large polyp in the sigmoid colon, removed with a hot snare. Resected and retrieved. Clip was placed. Recommendation: - [facility] patient to [facility]. - Resume previous diet. - Continue present medications. - Await pathology results. - Repeat colonoscopy in 3 years for surveillance. Procedure Code(s): --- Professional --- 82980, Colonoscopy, flexible; with removal of tumor(s), polyp(s), or other lesion(s) by snare technique 50120, Unlisted procedure, colon Diagnosis Code(s): --- Professional --- D12.5, Benign neoplasm of sigmoid colon K92.1, Melena (includes Hematochezia) K57.30, Diverticulosis of large intestine without perforation or abscess without bleeding CPT copyright 2017 [employer]. All rights reserved. The codes documented in this report are preliminary and upon taxi truck driver review may be revised to meet current compliance requirements. Guillermo Valdivia MD 04/15/2021 10:50:44 AM This report has been signed electronically. Number of Addenda: 0 Note Initiated On: 04/15/2021 10:20 AM
--- NOTE | 2021-04-15 10:51 | PCM.PN.BLA ---
Progress Note I performed an the and colonoscopy on the patient. EGD was normal with no signs of bleeding. During colonoscopy patient did have blood in the sigmoid colon. The proximal part of the colon was normal with no polyps or bleeding. There was an oozing sigmoid polyp which was removed using hot snare. A clip was placed for marking. There was no bleeding at the end the procedure. The patient may resume a normal diet and her Coumadin and be discharged home. I will call her with pathology results. Patient should have repeat in 3 years if benign due to the size of the polyp. Guillermo Valdivia MD Pager: [facility] [address] [place] [address], [address] [place] [address] Office:
[2021-04-15] MEDS: Potassium Chloride 10mEq/100mL 10 MEQ/100 ML IV.SOLN. 100 MEQ IV BOLUS ×4 (11:35→14:40)
[2021-04-15] MEDS: Metoprolol(XL)Succ 50 MG Tablet PO (11:38)
--- NOTE | 2021-04-15 13:16 | DS.PCM_ITS ---
Providers Date of Admission: 04/13/21 Primary Care Physician: Dr. Cheyanne Holt MD Consultations 04/13/21 14:25 Consult: General Surgery Routine Consulting Provider: Guillermo Valdivia Reason for Consult: GI bleed EMERGENT Consult: No MD Notified: Yes Date Notified: 04/13/21 Time Notified: 13:31 Method of Notification: Verbal Reason For Visit: RECTAL BLEEDING Diagnosis Discharge Diagnosis (1) Acute GI bleeding: Status: Acute Code(s): K92.2 - Gastrointestinal hemorrhage, unspecified (2) Long-term use of high-risk medication: Status: Acute Code(s): Z79.899 - Other usp (current) drug therapy (3) Persistent atrial fibrillation: Status: Chronic Code(s): I48.19 - Other persistent atrial fibrillation (4) senior living current use of anticoagulant: Status: Chronic Code(s): Z79.01 - 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) use of 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 (5) History of mitral valve repair: Status: Resolved Code(s): Z98.890 - Other specified postprocedural states (6) History of ventricular septal myectomy: Status: Resolved Code(s): Z98.890 - Other specified postprocedural states (7) Essential hypertension: Status: Chronic Code(s): I10 - Essential (primary) hypertension (8) 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 Code(s): I42.1 - Obstructive hypertrophic cardiomyopathy (9) Polyp, sigmoid colon: Status: Acute Code(s): K63.5 - Polyp of colon Medications at Discharge Home Medications umeclidinium-vilanterol 1 puff INHALATION DAILY 10/06/17 cholecalciferol (vitamin D3) 1,000 unit PO DAILY 08/06/18 potassium chloride 10 meq PO DAILY #30 tab 08/16/18 albuterol sulfate 5 mg/mL(0.5 %) solution for nebulization 2.5 mg INHALATION TID-QID PRN 04/06/19 magnesium oxide 400 mg PO DAILY tab 04/06/19 furosemide 20 mg tablet 20 mg PO DAILY #90 tab 03/14/20 warfarin 1.5 mg PO DAILY 12/06/20 lisinopril 10 mg tablet 10 mg PO DAILY #90 tab 03/07/21 metoprolol succinate 50 mg tablet,extended release 24 hr 50 mg PO DAILY #60 tab 03/11/21 metoprolol tartrate 25 mg PO BID PRN #10 tab 03/24/21 warfarin 2 mg PO 04/13/21 pantoprazole [Protonix] 40 mg PO DAILY #30 tab 04/15/21 potassium chloride 20 meq PO BID #20 tab 04/15/21 Hospital Course Summary of Care Provided Minutes Spent on Discharge: 35 Hospital Course: Patient is an 81-year-old lady with past medical history segment for persistent A. fib on systemic anticoagulation with Coumadin, essential hypertension atrophic cardiomyopathy status post septal myomectomy who presented with bleeding per rectum 1. Acute lower GI bleed secondary to bleeding polyps ?Patient was admitted to monitored bed Coumadin was held patient did receive vitamin K consult was placed to general surgery patient underwent EGD and colonoscopy by Dr. Valdivia Upper EGD demonstrated - Normal esophagus. - Normal stomach. - Normal examined duodenum. - Biopsies were taken with a cold forceps for Helicobacter pylori testing. Colonoscopy demonstrated - Diverticulosis in the sigmoid colon. - One large polyp in the sigmoid colon, removed with a hot snare. Resected and retrieved. Clip was placed. Plan is for patient's Coumadin to be resumed on 04/16/2021 2. Persistent A. fib ?Rate controlled Coumadin held in view of above 3. Hypertrophic cardiomyopathy ?Status post septal myomectomy 4. Valvular heart disease ?Status post mitral valve repair patient had 5. CKD stage IIIa ?Stable 6. Hypertension - Blood pressure controlled, home medications continued with dose adjustment as needed Physical Exam Narrative GENERAL: cooperative HEENT: Atraumatic; EYES; Anicteric, Normal Conjunctiva NECK; supple, normal thyroid, RESPIRATORY: Diminished to auscultation CARDIOVASCULAR: Irregular S1 S2, GI: soft, normoactive bowel sounds, : No Renal angle tenderness; EXTREMITIES: No edema, no clubbing, MUSCULOSKELETAL: no muscle waisting NEURO: Awake; no lateralizing signs. SKIN: No Rash PSYCH; Flat affect Weight / BMI Weight Weight: 66.4 kg Body Mass Index (BMI) 23.5 ABG / Lab / Microbiology Data Result Diagrams: 04/15/21 05:54 04/15/21 05:54 Laboratory: Laboratory Results - last 24 hr 04/14/21 04/15/21 04/15/21 14:47 05:54 05:54 WBC 12.5 H RBC 5.27 Hgb 13.8 Hct 45.9 MCV 87.1 MCH 26.2 L MCHC 30.1 L RDW Std Deviation 47.8 H RDW Coeff of Neelima 15.1 H Plt Count 230 MPV 10.6 Immature Gran % (Auto) 0.400 Neut % (Auto) 81.6 H Lymph % (Auto) 12.8 L Bergen % (Auto) 3.8 Eos % (Auto) 0.8 Baso % (Auto) 0.6 Absolute Neuts (auto) 10.2 H Absolute Lymphs (auto) 1.60 Nucleated RBC % 0 PT 18.2 H 14.9 INR 1.6 1.2 Sodium Potassium Chloride Carbon Dioxide Anion Gap BUN Creatinine Estim Creat Clear Calc Est GFR (MDRD) Af Amer Est GFR (MDRD) Non-Af BUN/Creatinine Ratio Glucose Calcium Total Bilirubin AST ALT Alkaline Phosphatase Total Protein Albumin Globulin Albumin/Globulin Ratio 04/15/21 05:54 WBC RBC Hgb Hct MCV MCH MCHC RDW Std Deviation RDW Coeff of Neelima Plt Count MPV Immature Gran % (Auto) Neut % (Auto) Lymph % (Auto) Bergen % (Auto) Eos % (Auto) Baso % (Auto) Absolute Neuts (auto) Absolute Lymphs (auto) Nucleated RBC % PT INR Sodium 139 Potassium 3.1 L Chloride 104 Carbon Dioxide 27.0 Anion Gap 8 BUN 11 Creatinine 1.03 H Estim Creat Clear Calc 39.42 Est GFR (MDRD) Af Amer 66 Est GFR (MDRD) Non-Af 55 L BUN/Creatinine Ratio 10.7 Glucose 95 Calcium 8.7 Total Bilirubin 1.00 AST 17 ALT 17 Alkaline Phosphatase 64 Total Protein 6.4 Albumin 3.3 Globulin 3.1 Albumin/Globulin Ratio 1.1 Microbiology: Microbiology 04/14/21 23:20 SARS-CoV-2 Antigen (Rapid) - Final Mucosa - Nose Microbiology 04/14/21 23:20 Mucosa - Nose SARS-CoV-2 Antigen (Rapid) - Final 04/13/21 10:34 Stool Stool Occult Blood (HUSSEIN) - Final Occult Blood Positive D/C Instructions Discharge Diet: No restrictions Discharge Activity: Return to Normal Activity Call your doctor if you observe: Fever of 101 or Higher, Shortness of breath, Fainting spells and Chest pain Meaningful Use Info Meaningful Use Diagnoses (Choose all that apply): None applicable Discharge Plan Admission Admit Date/Time: 04/13/21 12:11 Primary Reason for Your Visit: Acute GI bleed Attending Provider: Isrrael Byrd Primary Care Provider: Cheyanne Holt Consulting Providers: Guillermo Valdivia Instructions Patient Instructions: Atrial Fibrillation Discharge Orders/Prescriptions Prescriptions: New potassium chloride 20 mEq tablet extended release 20 meq PO BID Qty: 20 RF: 0 pantoprazole [Protonix] 40 mg tablet,delayed release (DR/EC) 40 mg PO DAILY Qty: 30 RF: 0 Continued magnesium oxide 400 mg magnesium tablet 400 mg PO DAILY RF: 0 albuterol sulfate 5 mg/mL solution for nebulization 2.5 mg INHALATION TID-QID PRN (Reason: Shortness Of Breath) RF: 0 furosemide 20 mg tablet 20 mg PO DAILY Qty: 90 RF: 3 lisinopril 10 mg tablet 10 mg PO DAILY Qty: 90 RF: 3 umeclidinium-vilanterol 1 EACH blister with device 1 puff INHALATION DAILY RF: 0 cholecalciferol (vitamin D3) 1,000 UNIT capsule 1,000 unit PO DAILY RF: 0 potassium chloride 10 MEQ tablet 10 meq PO DAILY Qty: 30 RF: 0 warfarin 1 MG tablet 1.5 mg PO DAILY RF: 0 metoprolol tartrate 25 mg tablet 25 mg PO BID PRN (Reason: tachycardia) Qty: 10 RF: 0 warfarin 1 mg tablet 2 mg PO RF: 0 metoprolol succinate 50 mg tablet extended release 24 hr 50 mg PO DAILY Qty: 60 RF: 11 Referrals / Follow Up: Guillermo Valdivia MD [STAFF PHYSICIAN] - Within 2 Weeks Cheyanne Holt MD [Primary Care Provider] - 04/22/21 8:40 am (Follow up appointment is with Camron Bales N.P.) Disposition Disposition (needs filled in before D/C Order can be placed): Home, self care Charges/Coding Visit Charges Inpatient E&M: 07771 Disch Hosp
[2021-04-15] MEDS: Ipratropium/Albuterol Sulfate 3 ML AMPUL.NEB INHALATION (15:13)
--- NOTE | 2021-04-15 15:29 | CASEMGMT ---
Pt to be discharged and this RN CM to room to discuss d/c plan with pt. Pt states no concerns with going home today and declines any needs. Pt is up independently in room. Pt voices no further questions/concerns/needs. SStaten RN CM
--- NOTE | 2021-04-16 14:37 | NURSING ---
YOANA DC F/U Call: DC Date: 04/15/21 DC Diagnosis: (1) Acute GI bleeding (2) Long-term use of high-risk medication (3) Persistent atrial fibrillation (4) half-way current use of anticoagulant (5) History of mitral valve repair (6) History of ventricular septal myectomy (7) Essential hypertension: (8) Hypertrophic obstructive cardiomyopathy (HOCM) (9) Polyp, sigmoid colon K63.5 - Polyp of colon DC Disposition: Home Lace/Strata: 12/02 Called patient cell phone, no answer. Called patient home number, patient answered. This mortgage or loan underwriter introduced self and role. Patient states that she is doing good, able to sleep last night. Confirmed picked up DC medications and taking them. Denies any questions, concerns, or issues with ACI, medications or f/u. Thanked patient for choosing [facility] for care and phone conversation ended. YOANA Garcia
== END 2021-04-15 16:42 | disposition home or self-care (01) | DRG 394 ==
LOC: ED 12:23 → PCU 13:16
PROVIDERS: Surgery; Admitting Provider Internal Medicine; Emergency Provider Emergency Medicine; PCP Internal Medicine; Visit Provider Internal Medicine
PROC: 0DJD8ZZ Inspection of Lower Intestinal Tract, Via Natural or Artificial Opening Endoscopic (ICD-10-PCS; CPT 45378; principal; 2021-04-15 10:25)
DX: D12.5 Benign neoplasm of sigmoid colon (principal); J44.9 Chronic obstructive pulmonary disease, unspecified; I13.0 Hypertensive heart and chronic kidney disease with heart failure and stage 1 through stage 4 chronic kidney disease, or unspecified chronic kidney disease; I50.32 Chronic diastolic (congestive) heart failure; I42.1 Obstructive hypertrophic cardiomyopathy; I48.19 Other persistent atrial fibrillation; N18.32 Chronic kidney disease, stage 3b; K57.30 Diverticulosis of large intestine without perforation or abscess without bleeding; I34.0 Nonrheumatic mitral (valve) insufficiency; K58.9 Irritable bowel syndrome, unspecified; E78.5 Hyperlipidemia, unspecified; Z79.01 Long term (current) use of 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; Z79.899 Other long term (current) drug therapy; Z85.51 Personal history of malignant neoplasm of bladder; Z87.891 Personal history of nicotine dependence; Z85.72 Personal history of non-Hodgkin lymphomas; Z95.2 Presence of prosthetic heart valve
CPT/HCPCS: 43239; 45385; 36415; 36416; 36430; 80048; 80053; 82274; 85014; 85018; 85025; 85610; 85730; 86900; 86901; 86927; 87426; 88305; 88342; 93005; 94640; 96361; 96365; 96366; 96375; 97802; 99218; 99251; 99285; J7030; J7040; P9017; A4216; G0378; G0463; J1940

== ENCOUNTER 2021-04-22 12:41 | Outpatient (RCR) | payer MEDICARE, SELFPAY ==
[2021-03-24 13:32] VITALS: BMI 24.0
[2021-04-04 13:05] LABS: INR Fingerstick 2.6; Prothrombin Time Fingerstick 28.6 SEC (11.9-14.4)
[2021-04-11 13:01] LABS: INR Fingerstick 2.5; Prothrombin Time Fingerstick 27.9 SEC (11.9-14.4)
[2021-04-22 12:51] LABS: Prothrombin Time Fingerstick 22.4 SEC (11.9-14.4)
== END 2021-04-22 18:00 | disposition home or self-care (01) ==
LOC: LAB 12:41
PROVIDERS: Family Provider Internal Medicine; PCP Internal Medicine; Referring Provider Internal Medicine Cardiovascular Disease; Visit Provider Internal Medicine Cardiovascular Disease
DX: I48.19 Other persistent atrial fibrillation (principal); Z79.01 Long term (current) use of 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
CPT/HCPCS: 36416; 85610

== ENCOUNTER → 2021-04-30 15:43 | Outpatient (CLI) | payer MEDICARE, SELFPAY ==
[2021-04-15 08:11] VITALS: BMI 23.5
[2021-05-01 08:35] LABS: INR Fingerstick 1.8; Prothrombin Time Fingerstick 20.5 SEC (11.9-14.4)
== END ==
PROVIDERS: PCP Internal Medicine; Visit Provider Internal Medicine Cardiovascular Disease
DX: I48.19 Other persistent atrial fibrillation (principal); Z79.01 Long term (current) use of 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
CPT/HCPCS: 36416; 85610

== ENCOUNTER 2021-05-27 13:09 | Outpatient (RCR) | payer MEDICARE, SELFPAY ==
[2021-04-15 08:11] VITALS: BMI 23.5
[2021-05-07 12:20] LABS: INR Fingerstick 2.4; Prothrombin Time Fingerstick 26.8 SEC (11.9-14.4)
[2021-05-14 12:21] LABS: Prothrombin Time Fingerstick 22.6 SEC (11.9-14.4)
[2021-05-21 13:00] LABS: INR Fingerstick 2.2; Prothrombin Time Fingerstick 24.5 SEC (11.9-14.4)
[2021-05-27 13:15] LABS: Prothrombin Time Fingerstick 23.2 SEC (11.9-14.4)
[2021-05-27 15:31] LABS: Anion Gap 6 (5-15); BUN 18 mg/dL (7-18); BUN/Creat Ratio 17.5 RATIO (10-20); Chloride 107 mmol/L (98-107); Creatinine, Serum 1.03 mg/dL (0.55-1.02); EST Glomerular Filtration Rate 55 mL/min (>60); Est Glom Filt Rate - Afr Amer 66 mL/min (>60); Glucose 91 mg/dL (74-106); Potassium 4.3 mmol/L (3.5-5.1); Sodium Level 139 mmol/L (136-145)
== END 2021-05-27 18:00 | disposition home or self-care (01) ==
LOC: LAB 13:09
PROVIDERS: Physician Assistant Medical; Family Provider Internal Medicine; PCP Internal Medicine; Referring Provider Internal Medicine Cardiovascular Disease; Visit Provider Internal Medicine Cardiovascular Disease
DX: I48.19 Other persistent atrial fibrillation (principal); Z79.01 Long term (current) use of 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
CPT/HCPCS: 36415; 36416; 80048; 85610

== ENCOUNTER 2021-06-20 12:41 | Outpatient (RCR) | payer MEDICARE, SELFPAY ==
[2021-05-27 13:25] VITALS: BMI 23.5
[2021-06-20 15:06] LABS: INR Fingerstick 1.7; Prothrombin Time Fingerstick 19.9 SEC (11.9-14.4)
== END 2021-06-20 18:00 | disposition home or self-care (01) ==
LOC: LAB 12:41
PROVIDERS: Family Provider Internal Medicine; PCP Internal Medicine; Referring Provider Internal Medicine Cardiovascular Disease; Visit Provider Internal Medicine Cardiovascular Disease
DX: I48.19 Other persistent atrial fibrillation (principal); Z79.01 Long term (current) use of 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
CPT/HCPCS: 36416; 85610

== ENCOUNTER 2021-07-26 11:05 | Outpatient (RCR) | payer MEDICARE, SELFPAY ==
[2021-07-03 00:29] VITALS: BMI 23.5
[2021-07-04 10:51] LABS: INR Fingerstick 2.7; Prothrombin Time Fingerstick 30.6 SEC (11.9-14.4)
[2021-07-26 11:21] LABS: INR Fingerstick 2.9; Prothrombin Time Fingerstick 31.9 SEC (11.9-14.4)
== END 2021-07-26 18:00 | disposition home or self-care (01) ==
LOC: LAB 11:05
PROVIDERS: Family Provider Internal Medicine; PCP Internal Medicine; Referring Provider Internal Medicine Cardiovascular Disease; Visit Provider Internal Medicine Cardiovascular Disease
DX: I48.19 Other persistent atrial fibrillation (principal); Z79.01 Long term (current) use of 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
CPT/HCPCS: 36416; 85610

== ENCOUNTER 2021-08-23 13:18 | Outpatient (RCR) | payer MEDICARE, SELFPAY ==
[2021-08-01 22:16] VITALS: BMI 23.5
[2021-08-23 13:25] LABS: INR Fingerstick 2.8; Prothrombin Time Fingerstick 31.2 SEC (11.9-14.4)
== END 2021-09-01 05:01 | disposition home or self-care (01) ==
LOC: LAB 13:18
PROVIDERS: Family Provider Internal Medicine; PCP Internal Medicine; Referring Provider Internal Medicine Cardiovascular Disease; Visit Provider Internal Medicine Cardiovascular Disease
DX: I48.19 Other persistent atrial fibrillation (principal); Z79.01 Long term (current) use of 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
CPT/HCPCS: 36416; 85610

== ENCOUNTER 2021-09-13 05:19 | Observation (INO) | payer MEDICARE, SELFPAY ==
[2021-09-13] VITALS (12 sets, daily range): BP systolic 118–163; BP diastolic 79–119; PULSE 61–105; RESP 16–31; TEMP 36.2–36.8; O2SAT 91–97; BMI 23.8; BMI 23.3
--- NOTE | 2021-09-13 05:34 | CT_ITS ---
STUDY: CT BRAIN WITHOUT CONTRAST REASON FOR EXAM: Female, 81 years old. Weakness RADIATION DOSAGE (If Supplied By Facility): CTDIvol = ( 44.99 ) mGy, DLP = ( 812.98 ) mGycm TECHNIQUE: Transaxial CT imaging of the brain was performed without administration of intravenous contrast material. Individualized dose optimization techniques were used for this CT. COMPARISON: No relevant priors. FINDINGS: Normal soft tissue structures. Normal calvarium. There is mild cerebral volume loss with widening of the extra-axial spaces and ventricular dilatation. There are areas of decreased attenuation within the white matter tracts of the supratentorial brain, consistent with microvascular disease changes. Normal basal ganglia and thalami. Normal brainstem. Normal cerebellum. There is no intracranial hemorrhage. There are no findings of an acute ischemic infarction. Normal visualized paranasal sinuses. CT/Brain/Head without Contrast IMPRESSION: No acute abnormal intracranial finding. Electronically Signed: Arnold Horowitz MD at 6:42 EST Tel , Service support ,
--- NOTE | 2021-09-13 05:35 | EKG12_ITS ---
Test Reason : Blood Pressure : / mmHG Vent. Rate : 111 BPM Atrial Rate : 107 BPM P-R Int : 000 ms QRS Dur : 132 ms QT Int : 354 ms P-R-T Axes : 000 -31 156 degrees QTc Int : 481 ms Atrial fibrillation Left axis deviation Left bundle branch block Abnormal ECG Confirmed by CLAUDIA FORTUNE, KACIE ([id number]), book editor NAYELI NEGRON ([id number]) on 09/16/2021 11:27:58 AM Referred By: PL Confirmed By:KACIE TAYLOR MD
--- NOTE | 2021-09-13 05:42 | EX.ED.DYSGE1 ---
HPI History of Present Illness Chief Complaint: Weakness Informant: patient Narrative Narrative: Patient presents with weakness of her legs when she got up this morning to go to the restroom. She states both legs were weak. She was trying to go to the restroom. She had to hold onto things to help hold herself up. This sounds like she had weakness but not vertigo dizziness unsteadiness or presyncope. She ended up urinating before she got to the restroom. She has no headache. She did not fall or hurt herself. Patient had her third shot/booster for Covid yesterday at approximately noon. All 3 of her shots have been [place]. After the first shot she had no symptoms. After the second shot she had diarrhea and bilateral leg weakness. It lasted for about a day and went away. However, it seems like this weakness is more than it was last time and she has not had diarrhea. She has had no bowel incontinence. She could sense that she had to go to the bathroom. Her problem was that she could not hold it long enough because she was walking so slowly across the room. Nothing really makes the symptoms better or worse. She thinks that her right leg might have been a little more affected than the left. Patient has also had significant spinal stenosis with some leg weakness and pain off and on for a while. She had an MRI back in approximately December of this year. She evidently had what sounds like steroid injections over the last couple months for some of these leg symptoms. However, again, the symptoms tonight were much more than they have been in the past. [facility] Medical History Atrial fibrillation Atrial fibrillation and flutter Atrial flutter with rapid ventricular response Bladder cancer Chronic diastolic heart failure COPD (chronic obstructive pulmonary disease) Essential hypertension History of cardioversion (~04/25/20) History of left heart catheterization (LHC) (~11/30/17) Hyperlipidemia Hypertension Hypertrophic obstructive cardiomyopathy (HOCM) LBBB (left bundle branch block) Long QT interval Non-Hodgkin lymphoma Nonrheumatic mitral (valve) insufficiency Paroxysmal atrial fibrillation Paroxysmal atrial fibrillation Persistent atrial fibrillation Polyp, sigmoid colon Home Medications cholecalciferol (vitamin D3) 1,000 unit PO DAILY 08/06/18 [History Last Taken Unknown] albuterol sulfate 5 mg/mL(0.5 %) solution for nebulization 2.5 mg INHALATION TID-QID PRN 04/06/19 [History Last Taken Unknown] magnesium oxide 400 mg PO DAILY tab 04/06/19 [History Last Taken Unknown] furosemide 20 mg tablet 20 mg PO DAILY #90 tab 03/14/20 [Rx Last Taken Unknown] warfarin 2 mg PO DAILY 12/06/20 [History Last Taken Unknown] metoprolol succinate 50 mg tablet,extended release 24 hr 50 mg PO DAILY #60 tab 03/11/21 [Rx Last Taken Unknown] warfarin 1 mg tablet 2 mg PO .COMPLEX #90 tab 06/17/21 [Rx Last Taken Unknown] lisinopril 20 mg tablet 20 mg PO DAILY 09/04/21 [History Last Taken Unknown] potassium chloride 20 mEq tablet,extended release 20 meq PO DAILY tab 09/04/21 [History Last Taken Unknown] umeclidinium 62.5 mcg-vilanterol 25 mcg/actuation powdr for inhalation 1 ea INHALATION DAILY 09/04/21 [History Last Taken Unknown] Allergy/AdvReac Type Severity Reaction Status Date / Time allopurinol Allergy Rash Verified 09/13/21 05:24 tramadol AdvReac dizzy Verified 09/13/21 05:24 Family History Father Heart disease Hypertension Surgical History History of bladder surgery History of mitral valve repair (~07/30/18) History of ventricular septal myectomy (~07/30/18) Social History Smoking Status: Former smoker pack-years: 58 how long ago did patient quit smokin years ago alcohol intake: current alcohol intake frequency: holidays/special occasions only substance use type: does not use caffeine: No ROS ROS ED Constitutional Constitutional ED: Denies chills or fever(s) Eyes Eyes: Denies blurry vision, change in vision or diplopia ENT ENT ED: Denies rhinorrhea Cardiovascular Cardiovascular: Denies chest pain or palpitations Respiratory/Chest Respiratory/Chest: Denies cough or dyspnea Gastrointestinal Gastrointestinal: Denies diarrhea, nausea or vomiting Genitourinary Genitourinary ED: Denies dysuria or hematuria Musculoskeletal Musculoskeletal: Denies myalgias Integumentary Denies rash Neurologic Neurologic: Reports weakness and other Details: See history of present illness. She had no sensory symptoms. ; Denies headache(s) or paresthesias Endocrine Endocrinology: Denies polydipsia or polyuria Allergic/Immunologic Allergic/Immunologic ED: Denies mouth swelling or urticaria EXAM Physical Exam Const Vital Signs: 09/13/21 05:21 09/13/21 05:24 Temperature 97.6 F L Temperature Source Temporal Pulse Rate 84 Respiratory Rate 18 Respiratory Effort Normal Respiratory Pattern Normal Blood Pressure 153/103 H Blood Pressure Mean 119 Pulse Ox 94 Oxygen Delivery Method Room Air Positive well nourished General Appearance ED: NAD HEENT Reports moist mucous membranes Eyes General Eye ED: Negative for pale conjunctiva Neck no JVD Chest Wall Chest Narrative: Well-healed median sternotomy scar. Resp normal respiratory effort and clear to auscultation bilaterally Cardio regular rate; Negative for regular rhythm GI normal to inspection, nondistended, normoactive bowel sounds and non-tender Palpation: soft Back/Spine no CVA tenderness Extremity normal to inspection Extremity Narrative: Small bruising on left lower ankle area but these appear to be a few days old. General Extremety ED: Negative for edema or tenderness General Extremity: Negative for edema Neuro oriented x3 and CN's II-XII intact bilaterally Neuro Narrative: On gross examination there is no weakness. She can lift and hold up either leg easily for 5 seconds. She can fire her quadriceps well. She can plantarflex her feet well. No discoordination. She has strong 2+ bilateral patellar reflexes and 1+ bilateral Achilles. No sign of sensory loss. Babinski's are normal. Sensorium / Orientation: alert Psych mental status grossly normal Skin no rashes or lesions noted MDM MDM MDM Narrative Medical decision making narrative: We will order blood work on this patient. We will look for electrolyte or other abnormalities. I will also get CPK levels. I have not yet walked the patient. We will also check CT scan of her head. This patient really is on maximal therapy for stroke prevention her symptoms are bilateral and not pointing to stroke as much as lower symptoms. She has a history of significant spinal stenosis that could be contributing to this. This may also be a reaction to the vaccine that could include early Guillain-Solorio? although her reflexes are still quite good. After evaluation, we will attempt walking the patient if the eval shows no marked abnormalities. Patient CT shows no acute process. I have added a magnesium level to make sure that is okay. It is pending. We walked the patient. We were able to get her up off of bed. But it took her son on 1 side and the nurse on the other. She was able to walk but she was not real stable. She did have to lean on her helper several times. Her son states this is not how she would normally walk. The patient does live alone at home and normally can walk all around without any difficulties. This is a change. I think it is unsafe for her to go home. Her symptoms might be a reaction to the vaccine. Guillain-Solorio? is certainly still possible but her reflexes are quite normal at this point. But I do not think the patient is safe to go home. A fall on Coumadin could be potentially life-threatening. I have called the hospitalist. Lab Data Labs: Laboratory Results - last 24 hr 09/13/21 09/13/21 09/13/21 05:50 05:50 05:50 WBC 12.5 H RBC 6.25 H Hgb 15.6 H Hct 51.0 H MCV 81.6 MCH 25.0 L MCHC 30.6 L RDW Std Deviation 47.9 H RDW Coeff of Neelima 17.2 H Plt Count 247 MPV 10.1 Immature Gran % (Auto) 0.600 Neut % (Auto) 88.9 H Lymph % (Auto) 5.5 L [place] % (Auto) 4.5 Eos % (Auto) 0.0 Baso % (Auto) 0.5 Absolute Neuts (auto) 11.1 H Absolute Lymphs (auto) 0.69 L Nucleated RBC % 0 PT 20.1 H INR 1.8 Sodium 140 Potassium 4.0 Chloride 107 Carbon Dioxide 27.0 Anion Gap 6 BUN 19 H Creatinine 1.06 H Estim Creat Clear Calc 38.31 Est GFR (MDRD) Af Amer 64 Est GFR (MDRD) Non-Af 53 L BUN/Creatinine Ratio 17.9 Glucose 149 H Lactic Acid Calcium 9.1 Total Bilirubin 0.60 AST 13 L ALT 20 Alkaline Phosphatase 80 Total Creatine Kinase 73 Total Protein 7.4 Albumin 3.5 Globulin 3.9 Albumin/Globulin Ratio 0.9 09/13/21 05:50 WBC RBC Hgb Hct MCV MCH MCHC RDW Std Deviation RDW Coeff of Neelima Plt Count MPV Immature Gran % (Auto) Neut % (Auto) Lymph % (Auto) [place] % (Auto) Eos % (Auto) Baso % (Auto) Absolute Neuts (auto) Absolute Lymphs (auto) Nucleated RBC % PT INR Sodium Potassium Chloride Carbon Dioxide Anion Gap BUN Creatinine Estim Creat Clear Calc Est GFR (MDRD) Af Amer Est GFR (MDRD) Non-Af BUN/Creatinine Ratio Glucose Lactic Acid 2.1 H* Calcium Total Bilirubin AST ALT Alkaline Phosphatase Total Creatine Kinase Total Protein Albumin Globulin Albumin/Globulin Ratio Radiography Diagnostic Testing: Clinical Impression(s) from Imaging Studies Brain CT 09/13/21 05:34 IMPRESSION: No acute abnormal intracranial finding. Electronically Signed: Arnold Horowitz MD at 6:42 EST Tel , Service support , Discharge Plan Dx/Rx/DC Orders Clinical Impression: Inability to ambulate due to multiple joints, Bilateral leg weakness Disposition Disposition: Acute Care Hospital [facility]
[2021-09-13 05:58] LABS: Absolute Lymphocyte Count 0.69 X10^3/uL (0.83-4.51); Absolute Neutrophil Count 11.1 X10^3/uL (2.0-7.7); Basophil# 0.06 X10^3/uL; Basophil% 0.5 % (0-1); Hemoglobin 15.6 g/dL (12.0-15.0); Lymphocyte # 0.69 X10^3/ul (0.83-4.51); Lymphocyte % 5.5 % (19-41); Mean Corp Hgb Conc 30.6 g/dL (32-36); Mean Corpuscular Volume 81.6 fL (81-99); Mean Platelet Vol. 10.1 fl (6.2-12.0); Monocyte# 0.56 X10^3/uL; Monocyte% 4.5 % (0-10); NRBC Flagged by Analyzer 0 % (0-5); Neutrophil # 11.06 X10^3/uL (2.7-7.7); Neutrophil % 88.9 % (47-70); Platelet Count 247 K/mm3 (150-450); RBC Distribution Width CV 17.2 % (11.6-14.6); RBC Distribution Width SD 47.9 fl (35.1-43.9); Red Blood Count 6.25 M/mm3 (4.2-5.4); White Blood Count 12.5 K/mm3 (4.4-11.0)
[2021-09-13 06:12] LABS: International Normalized Ratio 1.8; Prothrombin Time (Protime)PT. 20.1 SECONDS (11.7-14.9)
[2021-09-13 06:16] LABS: ALB/GLOB Ratio 0.9 RATIO (0.9-2.4); AST(SGOT) 13 U/L (15-37); Alanine Aminotransfer ALT/SGPT 20 U/L (13-56); Albumin, Serum 3.5 g/dL (3.2-5.0); Alkaline Phosphatase 80 U/L (45-117); Anion Gap 6 (5-15); BUN 19 mg/dL (7-18); BUN/Creat Ratio 17.9 RATIO (10-20); CPK Total, Creatine Kinase 73 U/L (26-192); Calcium,Total 9.1 mg/dL (8.5-10.1); Chloride 107 mmol/L (98-107); Creatinine, Serum 1.06 mg/dL (0.55-1.02); EST Glomerular Filtration Rate 53 mL/min (>60); Est Glom Filt Rate - Afr Amer 64 mL/min (>60); Estimated Creatinine Clearance 38.31 ml/min; Globulin 3.9 g/dL (2.2-4.2); Glucose 149 mg/dL (74-106); Protein, Total 7.4 g/dL (6.4-8.2); Sodium Level 140 mmol/L (136-145)
[2021-09-13 06:30] LABS: Lactic Acid 2.1 mmol/L (0.4-1.9)
[2021-09-13] MEDS: Mag Hydrox/Al Hydrox/Simeth 30 ML UDC PO (06:30)
[2021-09-13] MEDS: Famotidine 20 MG Tablet PO (07:32)
[2021-09-13] MEDS: Ondansetron 4 MG/2 ML Vial IV ×2 (07:35→14:05)
--- NOTE | 2021-09-13 07:38 | PCM.HP.STD ---
HPI - General General Date of Admission: 09/13/21 Date of Service: 09/13/21 Chief Complaint: Generalized weakness HPI Narrative MICHELLE JIMENEZ, is a 81 F who presented to the emergency department [facility] on 09/13/2021 with a chief complaint of generalized weakness. Evidently the patient got her Covid vaccine yesterday at approximately noon. All 3 of her vaccines have been Moderna. She did well with the first vaccine, after the second vaccine she developed some diarrhea and bilateral leg weakness, and this morning when she awoke she had pretty significant weakness that she felt was worse than her last episode. She has not had any diarrhea this time. She reports she felt well when she went to bed last night but this morning when she got up to go the restroom she felt that both of her legs were very weak. She had an episode of incontinence because she could not get to the bathroom quickly enough which is typically not a problem for her. She denies any vertigo, dizziness, unsteadiness, or presyncopal type symptoms. She did not fall with this episode. She does have a noted history of sciatica spinal stenosis for which she has been getting injections and had an MRI this previous year in December but states that her symptoms at this time are different than that. Her son is at the bedside with her and also indicates that his mother is somewhat confused and not acting her baseline. Also upon my evaluation she was having some centrally located chest pain with no radiation but did have associated nausea. Evidently started just prior to me being called for admission and a GI cocktail was given because the patient stated that it was similar to her reflux symptoms that she is gets in the past. The GI cocktail did not help her symptoms much at all. An EKG had been obtained and showed A. fib with a rate of [address]-T wave changes. With her persistent pain a repeat EKG was performed and showed no changes. I did asked the ER physician to obtain a repeat troponin since she is acutely having symptoms as her initial troponin was 44. We have no comparison for baseline. She has no coronary artery disease at baseline but has had open heart surgery for a septal myomectomy and mitral valve repair and clipping of the left atrial appendage. She does have risk factors for coronary disease however including hypertension, hyperlipidemia, and a remote history of tobacco abuse. She was admitted in April of this past year for GI bleed and EGD was done at that time and showed a normal esophagus, normal stomach, normal duodenum with biopsies taken of the gastric antrum to rule out H. pylori. Biopsies revealed gastritis but no H. pylori. She is on famotidine at baseline. Her vital signs in the emergency department have been relatively stable with some mild tachycardia intermittently. She is afebrile but her blood pressures have been slightly elevated. Oxygen saturations have been anywhere from 91 to 94% on room air. Her CBC shows a very mild leukocytosis at 12.5, and erythrocytosis with a hemoglobin of 15.6 which appears to be chronic for her, and a normal platelet count. She is on Coumadin at baseline chronically for her atrial fibrillation and her INR was 1.8 on admission. A BMP was obtained and shows normal electrolytes with a slightly elevated BUN and creatinine that appears to be at her baseline, a mildly elevated lactic acid at 2.1 with a baseline normal of 2, and normal LFTs. Troponin is pending at this time. A CT of her head was performed and showed no acute intracranial abnormalities. [facility] Medical History Atrial fibrillation Atrial fibrillation and flutter Atrial flutter with rapid ventricular response Bladder cancer Chronic diastolic heart failure COPD (chronic obstructive pulmonary disease) Essential hypertension History of cardioversion (~04/25/20) History of left heart catheterization (LHC) (~11/30/17) Hyperlipidemia Hypertension Hypertrophic obstructive cardiomyopathy (HOCM) LBBB (left bundle branch block) Long QT interval Non-Hodgkin lymphoma Nonrheumatic mitral (valve) insufficiency Paroxysmal atrial fibrillation Paroxysmal atrial fibrillation Persistent atrial fibrillation Polyp, sigmoid colon Home Medications cholecalciferol (vitamin D3) 1,000 unit PO DAILY 08/06/18 [History Last Taken Unknown] albuterol sulfate 5 mg/mL(0.5 %) solution for nebulization 2.5 mg INHALATION TID-QID PRN 04/06/19 [History Last Taken Unknown] magnesium oxide 400 mg PO DAILY tab 04/06/19 [History Last Taken Unknown] furosemide 20 mg tablet 20 mg PO DAILY #90 tab 03/14/20 [Rx Last Taken Unknown] warfarin 2 mg PO DAILY 12/06/20 [History Last Taken Unknown] metoprolol succinate 50 mg tablet,extended release 24 hr 50 mg PO DAILY #60 tab 03/11/21 [Rx Last Taken Unknown] warfarin 1 mg tablet 2 mg PO .COMPLEX #90 tab 06/17/21 [Rx Last Taken Unknown] lisinopril 20 mg tablet 20 mg PO DAILY 09/04/21 [History Last Taken Unknown] potassium chloride 20 mEq tablet,extended release 20 meq PO DAILY tab 09/04/21 [History Last Taken Unknown] umeclidinium 62.5 mcg-vilanterol 25 mcg/actuation powdr for inhalation 1 ea INHALATION DAILY 09/04/21 [History Last Taken Unknown] Allergy/AdvReac Type Severity Reaction Status Date / Time allopurinol Allergy Rash Verified 09/13/21 05:24 tramadol AdvReac dizzy Verified 09/13/21 05:24 Family History Father Heart disease Hypertension Surgical History History of bladder surgery History of mitral valve repair (~07/30/18) History of ventricular septal myectomy (~07/30/18) Social History Smoking Status: Former smoker pack-years: 58 how long ago did patient quit smokin years ago alcohol intake: current alcohol intake frequency: holidays/special occasions only substance use type: does not use caffeine: No ROS Constitutional Constitutional: Reports malaise and weakness; Denies anorexia, change in weight, chills, fatigue, fever(s), night sweats or other Eyes Eyes: Denies blurry vision, change in eye color, change in vision, discharge from eye(s), double vision, erythema, eye pain, loss of vision or other ENT HEENT: Reports abnormal hearing and hearing loss; Denies dysphagia, ear pain, epistaxis, headache(s), nasal congestion, nasal discharge, post nasal drip, sinus pressure, sore throat or other Cardiovascular Cardiovascular: Reports chest pain; Denies claudication, dyspnea on exertion, edema, lightheadedness, orthopnea, palpitations, paroxysmal nocturnal dyspnea, rapid heart rate, syncope or other Respiratory/Chest Respiratory/Chest: Denies cough, dyspnea, excessive phlegm production, hemoptysis, productive cough, shortness of breath at rest, shortness of breath with exertion, wheezing or other Gastrointestinal Gastrointestinal: Reports nausea and vomiting; Denies abdominal pain, coffee ground emesis, constipation, diarrhea, dyspepsia, hematemesis, hematochezia, loose stools, melena or other Genitourinary Genitourinary: Denies burning urination, difficulty urinating, dysuria, hematuria, nocturia, urinary frequency, urinary hesitancy, urinary incontinence, urinary urgency or other Musculoskeletal Musculoskeletal: Reports back pain, joint pain and joint stiffness; Denies arthralgias, joint swelling, myalgias, neck pain or other Neurologic Neurologic: Reports abnormal gait; Denies abnormal speech, confusion, disequilibrium, dizziness, focal weakness, headache(s), numbness, paresthesias, seizure-like activity, seizures, syncope, tingling, tremor(s) or other Psychiatric Psychiatric: Denies anxiety, depression, homicidal ideation, suicidal ideation or other Endocrine Endocrinology: Denies change in body appearance, cold intolerance, excessive sweating, heat intolerance, polydipsia, polyuria or other Hematologic/Lymphatic Hematologic/Lymphatic: Denies anemia, easy bleeding, easy bruising, lymphadenopathy or other Allergic/Immunologic Allergic/Immunologic: Denies rhinitis, hives, eczemia, asthma or other Vital Signs Vital Signs Vital Signs: 09/13/21 05:21 09/13/21 05:24 09/13/21 07:11 Temperature 97.6 F L 97.1 F L Temperature Source Temporal Temporal Pulse Rate 84 101 H Respiratory Rate 18 21 H Respiratory Effort Normal Respiratory Pattern Normal Blood Pressure 153/103 H 153/119 H Blood Pressure Mean 119 130 Pulse Ox 94 92 Oxygen Delivery Method Room Air Room Air 09/13/21 07:23 Temperature Temperature Source Pulse Rate 105 H Respiratory Rate 25 H Respiratory Effort Respiratory Pattern Blood Pressure Blood Pressure Mean Pulse Ox 94 Oxygen Delivery Method Room Air Weight Weight: 67 kg Body Mass Index (BMI) 23.8 Physical Exam Const alert, oriented x3, no apparent distress and average body habitus Constitutional Narrative: Elderly white female sitting up in bed, son at the bedside, patient appears uncomfortable and pointing to her central chest region, nontoxic overall, very pleasant General Appearance: cooperative HEENT normocephalic, head/scalp atraumatic, moist oral mucous membranes and oropharynx normal; Negative for dentition normal HEENT Narrative: Extremely hard of hearing, Mallampati 2, dentures in place, no thrush Mouth: oral and palatal mucosa normal Eyes PERRL, EOMs intact bilaterally and conjunctivae normal Eyes Narrative: No scleral icterus Neck no lymphadenopathy, supple, no JVD and no carotid bruits Neck Narrative: Trachea midline, no thyroid enlargement Resp normal respiratory effort, no retractions, no use of accessory muscles and clear to auscultation bilaterally Auscultation: Negative for crackles, rales, rhonchi or wheezes Cardio S1 normal heart sound, S2 normal heart sound, no murmurs, no rub, no gallops, no clicks and no JVD Cardio Narrative: Mild tachycardia with irregularly irregular rhythm GI normal to inspection, nondistended, normoactive bowel sounds, soft to palpation, non-tender and non-distended Extremity no clubbing, cyanosis or edema Peripheral Pulses: Yes pulses 2+ throughout Skin no wounds, skin turgor normal, no jaundice, no petechiae and no mottling Skin Narrative: Thin skin with changes consistent with chronic sun exposure Neuro oriented x3, CN's II-XII intact bilaterally, moves all extremities and no focal motor deficits Neuro Narrative: Mild confusion with repetition of questions asked but is alert and oriented x3, generalized weakness with lower extremities more affected than upper extremities Sensorium / Orientation: awake and alert Speech: speech normal Psych affect normal Results Medical Records Data Attestation: I reviewed the patient's medical records Lab / Micro Data Result Diagrams: 09/13/21 05:50 09/13/21 05:50 Labs: Laboratory Results - last 24 hr 09/13/21 05:00: Magnesium 2.0 09/13/21 05:50: WBC 12.5 H, RBC 6.25 H, Hgb 15.6 H, Hct 51.0 H, MCV 81.6, MCH 25.0 L, MCHC 30.6 L, RDW Std Deviation 47.9 H, RDW Coeff of Neelima 17.2 H, Plt Count 247, MPV 10.1, Immature Gran % (Auto) 0.600, Neut % (Auto) 88.9 H, Lymph % (Auto) 5.5 L, [place] % (Auto) 4.5, Eos % (Auto) 0.0, Baso % (Auto) 0.5, Absolute Neuts (auto) 11.1 H, Absolute Lymphs (auto) 0.69 L, Nucleated RBC % 0 09/13/21 05:50: PT 20.1 H, INR 1.8 09/13/21 05:50: Sodium 140, Potassium 4.0, Chloride 107, Carbon Dioxide 27.0, Anion Gap 6, BUN 19 H, Creatinine 1.06 H, Estim Creat Clear Calc 38.31, Est GFR (MDRD) Af Amer 64, Est GFR (MDRD) Non-Af 53 L, BUN/Creatinine Ratio 17.9, Glucose 149 H, Calcium 9.1, Total Bilirubin 0.60, AST 13 L, ALT 20, Alkaline Phosphatase 80, Total Creatine Kinase 73, Total Protein 7.4, Albumin 3.5, Globulin 3.9, Albumin/Globulin Ratio 0.9 09/13/21 05:50: Lactic Acid 2.1 H* Radiology Impression Brain CT 09/13/21 05:34 IMPRESSION: No acute abnormal intracranial finding. Electronically Signed: Arnold Horowitz MD at 6:42 EST Tel , Service support , Assessment & Plan Assessment/Plan (1) Bilateral leg weakness: (2) Atrial fibrillation and flutter: (3) Chest pain: PLAN: Bilateral leg weakness/debility -Etiology unclear at this point although suspicious that it may be related to her recent COVID-19 vaccination that she got on 09/12/2021 -Currently ruling out other factors -Obtain UA as patient has had history with urinary tract infections -We will obtain blood cultures since lactic acid is slightly elevated and patient has a leukocytosis with worsening debility -Consult PT/OT -Patient may need placement prior to discharge home for strengthening -I do not think this acute issue is related to her chronic lumbar stenosis Chest pain -Patient initially felt that it was consistent with GERD and a GI cocktail was given with no relief -EKG is stable and shows no signs of ST-T wave changes consistent with ischemia but does show chronic atrial fibrillation -Cycle cardiac enzymes -Patient is fully anticoagulated and her INR is 1.8 on Coumadin for her atrial fibrillation -If cardiac enzymes rise will have patient seen by cardiology -Most recent echocardiogram is from 09/19/2020 and showed an EF of 45% with biatrial enlargement and moderate eccentric tricuspid valve insufficiency with right ventricular systolic pressures at 32 mmHg -Most recent cardiac catheterization was from 11/30/2017 and showed normal coronary arteries -Patient has had open heart surgery for hypertrophic cardiomyopathy with a myomectomy and a mitral valve repair with annuloplasty Mild lactic acidosis -Lactic acid was 2.1 on admission with upper limits of normal being 2 -Etiology is unclear -Chest x-ray pending -UA pending -Check blood cultures x2 -We will hold off on empiric antibiotics at this point and monitor clinically -We will give 500 cc bolus at 100 cc/h Persistent atrial fibrillation -Continue metoprolol succinate 50 mg daily -Continue Coumadin -Current INR is 1.8 -Daily INRs -Monitor on telemetry given mild tachycardia and chest pain COPD -Continue home inhalers -Monitor clinically Hypertension/hyperlipidemia -Continue home antihypertensives -Patient is currently not on any statin GERD -Continue famotidine Compensated systolic and diastolic heart failure -EF on last echocardiogram was 45% -Continue home medications -Currently appears euvolemic History of bladder cancer/non-Hodgkin's lymphoma -Remote -No current issues DVT prophylaxis -We will use heparin until INR is greater than 2 -SCDs CODE STATUS -Full code as per discussion with son in the emergency department Charges/Coding Visit Charges Inpatient E&M: 51389 Init Hosp L3
[2021-09-13] MEDS: Aspirin 325 MG Tablet PO (07:46)
[2021-09-13 07:53] LABS: Troponin-I HS 44 pg/mL (3.0-54.0)
--- NOTE | 2021-09-13 08:01 | EKG12_ITS ---
Test Reason : REPEAT Blood Pressure : / mmHG Vent. Rate : 110 BPM Atrial Rate : 101 BPM P-R Int : 000 ms QRS Dur : 130 ms QT Int : 412 ms P-R-T Axes : 000 -38 135 degrees QTc Int : 557 ms Atrial fibrillation Left axis deviation Left bundle branch block Abnormal ECG Confirmed by CLAUDIA FORTUNE, KACIE ([id number]), sports editor NAYELI NEGRON ([id number]) on 09/16/2021 11:28:36 AM Referred By: TYSON Confirmed By:KACIE TAYLOR MD
[2021-09-13 08:12] LABS: Troponin-I HS 51 pg/mL (3.0-54.0)
--- NOTE | 2021-09-13 08:33 | PCS.PANDOC ---
PANDEMIC DOCUMENTATION INITIATED: Date: 09/13/21 Time: 829
[2021-09-13 09:57] LABS: Reflex Lactate? Y
[2021-09-13] MEDS: Lisinopril 20 MG Tablet PO (10:34)
[2021-09-13] MEDS: Metoprolol(XL)Succ 50 MG Tablet PO (10:35)
[2021-09-13] MEDS: Cholecalciferol (VIT D3) 25 MCG TABLET (1,000 UNITS) PO (10:35)
[2021-09-13] MEDS: Magnesium Chloride 64 MG Delay Rel.Tablet 128 MG PO (10:35)
[2021-09-13] MEDS: Potassium Chloride Oral Tablet 20 MEQ PO (10:35)
[2021-09-13] MEDS: Furosemide 20 MG Tablet PO (10:35)
[2021-09-13] MEDS: Heparin Injection (Vial) 5,000 UNIT/ML VIAL 5000 UNIT SC ×2 (10:36→22:08)
[2021-09-13 11:10] LABS: Lactic Acid 2.3 mmol/L (0.4-1.9)
[2021-09-13 12:33] LABS: Troponin-I HS 59 pg/mL (3.0-54.0)
--- NOTE | 2021-09-13 13:48 | CASEMGMT ---
Per therapy, pt just needs to use her walker at home but no further therapy recommended and Dr. Huff aware, voices understanding. Eva RN CM
[2021-09-13] MEDS: 0.9% Saline Lock 10 ML Syringe IV (14:05)
[2021-09-13 16:05] LABS: Mucous, Urine 0 SEEN /hpf (<or=2+); Red Blood Cells-Urine 0 SEEN /hpf (0-5); Squamous Epithelial Cells - UA 0 SEEN /hpf (5-10); White Blood Cells 0 SEEN /hpf (0-5)
[2021-09-13] MEDS: Jantoven 2 MG Tablet PO (16:07)
[2021-09-13 16:14] LABS: Color, Urine Straw (Yellow); Glucose, Dipstick Normal (Normal); Ketone-Dipstick Negative (Negative); Leukocyte Esterase-Dipstick Negative /ul (Negative); Nitrite-Dipstick Positive (Negative); Occult Blood-Urine 10 /ul (Negative); Protein-Dipstick Negative (Negative); Urine Bilirubin Dipstick Negative (Negative); Urine Clarity Clear (Clear); Urine Urobilinogen Normal (Normal)
[2021-09-13 16:41] LABS: Bacteria 1+ /hpf (None Seen)
[2021-09-13] MEDS: Ipratropium/Albuterol Sulfate 3 ML AMPUL.NEB INHALATION (19:45)
--- NOTE | 2021-09-13 20:10 | RAD_ITS ---
EXAM: XR CHEST, 1 VIEW CLINICAL INDICATION: chest pain TECHNIQUE: Frontal view of the chest. This report was created using [employer] report generation technology. COMPARISON: 12/06/2020 FINDINGS: LUNGS AND PLEURAL SPACES: Unremarkable. No consolidation or edema. No pneumothorax. No effusion. HEART: Unremarkable. Cardiac silhouette not enlarged. MEDIASTINUM: Central airways and mediastinal contour are unremarkable. BONES/JOINTS: Multiple median sternotomy wires are noted consistent for cardiac surgery. Healed left rib fractures. SOFT TISSUES: Unremarkable. TUBES, LINES AND DEVICES: There is an atrial appendage device noted. RAD/Chest 1 View (Portable) IMPRESSION: No acute findings in the chest. Electronically Signed: Shankar Thomas MD at 20:55 EST , Service support ,
[2021-09-13] MEDS: DiphenhydrAMINE 25 MG Capsule PO (22:07)
[2021-09-13] MEDS: Acetaminophen 325 MG Tablet 650 MG PO (22:07)
[2021-09-14 02:45] VITALS: BP 115/79; PULSE 84; RESP 16; TEMP 36.6; O2SAT 93
[2021-09-14 03:00] VITALS: PULSE 78
[2021-09-14 06:41] LABS: Absolute Lymphocyte Count 1.71 X10^3/uL (0.83-4.51); Absolute Neutrophil Count 4.4 X10^3/uL (2.0-7.7); Basophil# 0.08 X10^3/uL; Basophil% 1.1 % (0-1); Eosinophil# 0.26 X10^3/uL; Eosinophils% 3.5 % (0-5); Hematocrit 44.8 % (37-47); Hemoglobin 13.8 g/dL (12.0-15.0); Lymphocyte # 1.71 X10^3/ul (0.83-4.51); Lymphocyte % 23.2 % (19-41); Mean Corp Hgb Conc 30.8 g/dL (32-36); Mean Corpuscular Hgb 25.3 pg (27.0-32.0); Mean Corpuscular Volume 82.2 fL (81-99); Monocyte# 0.85 X10^3/uL; Monocyte% 11.5 % (0-10); NRBC Flagged by Analyzer 0 % (0-5); Neutrophil # 4.43 X10^3/uL (2.7-7.7); Neutrophil % 60.2 % (47-70); Platelet Count 200 K/mm3 (150-450); RBC Distribution Width CV 16.7 % (11.6-14.6); RBC Distribution Width SD 48.6 fl (35.1-43.9); Red Blood Count 5.45 M/mm3 (4.2-5.4); White Blood Count 7.4 K/mm3 (4.4-11.0)
[2021-09-14 06:48] LABS: International Normalized Ratio 2.5; Prothrombin Time (Protime)PT. 26.4 SECONDS (11.7-14.9)
[2021-09-14 06:57] VITALS: PULSE 83
[2021-09-14 07:11] LABS: Anion Gap 2 (5-15); BUN 19 mg/dL (7-18); BUN/Creat Ratio 21.4 RATIO (10-20); Calcium,Total 8.6 mg/dL (8.5-10.1); Chloride 109 mmol/L (98-107); Creatinine, Serum 0.89 mg/dL (0.55-1.02); EST Glomerular Filtration Rate 65 mL/min (>60); Est Glom Filt Rate - Afr Amer 78 mL/min (>60); Estimated Creatinine Clearance 45.62 ml/min; Glucose 96 mg/dL (74-106); Magnesium 2.2 mg/dL (1.6-2.6); Phosphorus 3.1 mg/dL (2.5-4.9); Potassium 4.4 mmol/L (3.5-5.1); Sodium Level 141 mmol/L (136-145)
[2021-09-14 08:45] VITALS: BP 139/86; PULSE 93; RESP 16; TEMP 36.7; O2SAT 94
[2021-09-14 09:39] VITALS: PULSE 93
[2021-09-14] MEDS: Potassium Chloride Oral Tablet 20 MEQ PO (09:39)
[2021-09-14] MEDS: Metoprolol(XL)Succ 50 MG Tablet PO (09:39)
[2021-09-14] MEDS: Magnesium Chloride 64 MG Delay Rel.Tablet 128 MG PO (09:40)
[2021-09-14] MEDS: Lisinopril 20 MG Tablet PO (09:40)
[2021-09-14] MEDS: Cholecalciferol (VIT D3) 25 MCG TABLET (1,000 UNITS) PO (09:40)
--- NOTE | 2021-09-14 09:43 | CASEMGMT ---
PRETTY CM in to discuss [place] form with patient. RN CM explained [place] form, patient voiced understanding. Pt signed form and filed in chart. Pt provided with a copy of signed [place] form. Patient had no further questions or concerns at this time.
--- NOTE | 2021-09-14 13:01 | DS.PCM_ITS ---
Providers Date of Admission: 09/13/21 Primary Care Physician: Dr. Cheyanne Holt MD Reason For Visit: GENERALIZED WEAKNESS AND DEBILITY Diagnosis Discharge Diagnosis (1) Bilateral leg weakness: Status: Acute Code(s): R29.898 - Other symptoms and signs involving the musculoskeletal system (2) Atrial fibrillation and flutter: Status: Acute Code(s): I48.91 - Unspecified atrial fibrillation; I48.92 - Unspecified atrial flutter (3) Chest pain: Status: Acute Code(s): R07.9 - Chest pain, unspecified Medications at Discharge Home Medications cholecalciferol (vitamin D3) 1,000 unit PO DAILY 08/06/18 albuterol sulfate 5 mg/mL(0.5 %) solution for nebulization 2.5 mg INHALATION TID-QID PRN 04/06/19 magnesium oxide 400 mg PO DAILY tab 04/06/19 furosemide 20 mg tablet 20 mg PO DAILY #90 tab 03/14/20 metoprolol succinate 50 mg tablet,extended release 24 hr 50 mg PO DAILY #60 tab 03/11/21 lisinopril 20 mg tablet 20 mg PO DAILY 09/04/21 potassium chloride 20 mEq tablet,extended release 20 meq PO DAILY tab 09/04/21 umeclidinium 62.5 mcg-vilanterol 25 mcg/actuation powdr for inhalation 1 ea INHALATION DAILY 09/04/21 warfarin 1 mg tablet 2 mg PO .COMPLEX #90 tab 09/14/21 Hospital Course Summary of Care Provided Minutes Spent on Discharge: 42 Hospital Course: MICHELLE JIMENEZ, is a 81 F who presented to the emergency department at [facility] on 09/13/2021 with a chief complaint of generalized weakness. Dentally the patient got her Covid vaccine booster at approximately noon the day prior to admission. All 3 of her vaccines had been Moderna. She reported she did well with her first vaccine and knows had no side effects. After her second vaccine she developed some diarrhea and bilateral leg weakness. She reported on the morning of admission she awoke and had pretty significant weakness in bilateral lower extremities and felt it was worse than her last episode. She felt that all the symptoms were related to her vaccination. She denied any diarrhea at the time of admission. She stated that she felt well when she went to bed the night before but on the morning of admission she got up to go to the restroom and felt that both of her legs were very weak. She had an episode episode of urinary incontinence because she could not get to the bathroom quickly enough which is typically not a problem for her. She denied any vertigo, dizziness, unsteadiness, or presyncopal type symptoms. She did not fall with this episode. She does have a noted history of spinal stenosis for which she has been getting injections and had an MRI this previous year but states that her symptoms are different at the time of presentation that she experiences with that ailment. Her son was present at the bedside on admission and he also indicated that his mother was acting somewhat confused and not quite her baseline. Upon my evaluation she was having some centrally located chest pain with no radiation but she had associated nausea nausea and emesis. It started just prior to me evaluating her and she had been given a GI cocktail but had not much symptom relief at that time. An EKG was obtained at admission that showed A. fib with a rate of [address]-T wave changes were noted. Her r epeat EKG at the time of her having active chest pain was the same. Her initial troponin was 44. She does not have a history of coronary artery disease but did have open heart surgery previously for septal myomectomy and a mitral valve repair with clipping of the left atrial appendage. She did however have risk factors for coronary artery disease including hypertension, hyperlipidemia, and a remote history of tobacco abuse. She had been admitted in April of this past year for a GI bleed and EGD was done at that time that showed normal esophagus, normal stomach, and normal duodenum and biopsies were taken at the gastric antrum to rule out H. pylori. Biopsies at that time showed gastritis but no H. pylori was present. Her vital signs in the ED were stable with some mild intermittent tachycardia. She was afebrile but her blood pressures were slightly elevated. Her oxygen saturations had been anywhere from 91 to 94% on room air. Her CBC showed a mild leukocytosis at 12.5 and and erythrocytosis with a hemoglobin of 15.6 which appeared to be chronic for her. Her platelets were normal. She takes Coumadin at baseline for her chronic atrial fibrillation and her INR admission was 1.8. On discharge it was 2.5. A BMP was obtained and showed normal electrolytes with a slightly elevated BUN and creatinine that appeared to be her baseline. Her lactic acid was mildly elevated at 2.1 with a baseline normal of 2 and her LFTs were normal as well. A CT of her head was performed and showed no acute intracranial abnormalities. She was admitted to the general medical floor and her cardiac enzymes were cycled. As noted above her initial high-sensitivity troponin was 44 with a repeat at 51 and her third was 59 which is slightly high. Given the mild elevation in the chest pain she had experienced in the emergency department I did recommend that a stress test before performed but the patient refused and stated that she would follow-up with Dr. Bland next week and discuss it with him. She indicated that her chest pain was consistent with her GERD and she was not concerned. Otherwise she was treated with some gentle hydration and was evaluated by therapy services. It was recommended she continue utilizing a walker with ambulation for stability and that she was safe to go home. She was adamant on leaving and was feeling much improved on September 14, 2020 when she was discharged home in stable condition. She was instructed to follow-up with her PCP in [address] Bland as currently scheduled. Discharge diagnoses: Bilateral leg weakness and debility status post COVID-19 vaccination Chest pain-resolved Mild lactic acidosis Persistent atrial fibrillation COPD Hypertension Hyperlipidemia GERD Compensated systolic and diastolic heart failure History of bladder cancer History of non-Hodgkin's lymphoma Physical Exam Const alert, oriented x3, no apparent distress and average body habitus Constitutional Narrative: Elderly white female walking around her room in the hallway with a walker, appears comfortable, nontoxic, patient has her make-up on General Appearance: cooperative, comfortable, well kempt and well developed Orientation / Consciousness: awake Exam Limitations: no limitations HEENT normocephalic, head/scalp atraumatic, hearing grossly normal bilaterally, moist oral mucous membranes and oropharynx normal; Negative for dentition normal Eyes PERRL, EOMs intact bilaterally and conjunctivae normal Eyes Narrative: No scleral icterus Neck no lymphadenopathy, supple, no JVD and no carotid bruits Neck Narrative: Trachea midline, no thyroid enlargement Resp normal respiratory effort, no retractions, no use of accessory muscles and clear to auscultation bilaterally Auscultation: Negative for crackles, rales, rhonchi or wheezes Cardio regular rate, S1 normal heart sound, S2 normal heart sound, no murmurs, no rub, no gallops, no clicks and no JVD Cardio Narrative: irregularly irregular rhythm GI normal to inspection, nondistended, normoactive bowel sounds, soft to palpation, non-tender and non-distended Extremity no clubbing, cyanosis or edema Skin no wounds, skin turgor normal, no jaundice, no petechiae and no mottling Skin Narrative: Thin skin with changes consistent with chronic sun exposure Neuro oriented x3, CN's II-XII intact bilaterally, moves all extremities and no focal motor deficits Neuro Narrative: Mild confusion with repetition of questions asked but is alert and oriented x3, generalized weakness with lower extremities more affected than upper extremities Sensorium / Orientation: awake and alert Speech: speech normal Psych affect normal Weight / BMI Weight Weight: 65.8 kg Body Mass Index (BMI) 23.3 ABG / Lab / Microbiology Data Result Diagrams: 09/14/21 06:00 09/14/21 06:00 Laboratory: Laboratory Results - last 24 hr 09/13/21 15:45: Urine Color Straw, Urine Clarity Clear, Urine pH 6.0, Ur Sp ecific [place] 1.010, Urine Protein Negative, Urine Glucose (UA) Normal, Urine Ketones Negative, Urine Occult Blood 10 H, Urine Nitrite Positive H, Urine Bilirubin Negative, Urine Urobilinogen Normal, Ur Leukocyte Esterase Negative, Urine RBC 0 SEEN, Urine WBC 0 SEEN, Ur Squamous Epith Cells 0 SEEN, Urine Bacteria 1+, Urine Mucus 0 SEEN 09/14/21 06:00: WBC 7.4, RBC 5.45 H, Hgb 13.8, Hct 44.8, MCV 82.2, MCH 25.3 L, MCHC 30.8 L, RDW Std Deviation 48.6 H, RDW Coeff of Neelima 16.7 H, Plt Count 200, MPV 11.0, Immature Gran % (Auto) 0.500, Neut % (Auto) 60.2, Lymph % (Auto) 23.2, Crawford % (Auto) 11.5 H, Eos % (Auto) 3.5, Baso % (Auto) 1.1 H, Absolute Neuts (auto) 4.4, Absolute Lymphs (auto) 1.71, Nucleated RBC % 0 09/14/21 06:00: PT 26.4 H, INR 2.5 09/14/21 06:00: Sodium 141, Potassium 4.4, Chloride 109 H, Carbon Dioxide 30.0, Anion Gap 2 L, BUN 19 H, Creatinine 0.89, Estim Creat Clear Calc 45.62, Est GFR (MDRD) Af Amer 78, Est GFR (MDRD) Non-Af 65, BUN/Creatinine Ratio 21.4 H, Glucose 96, Calcium 8.6, Phosphorus 3.1, Magnesium 2.2 Radiography Diagnostic Testing: Radiology Impression Chest X-Ray 09/13/21 20:10 IMPRESSION: No acute findings in the chest. Electronically Signed: Shankar Thomas MD at 20:55 EST , Service support , D/C Instructions Discharge Diet: Low fat / Low cholesterol Meaningful Use Info Meaningful Use Diagnoses (Choose all that apply): None applicable Discharge Plan Admission Admit Date/Time: 09/13/21 07:03 Primary Reason for Your Visit: Debility/generalized weakness Attending Provider: Janet Huff Primary Care Provider: Cheyanne Holt Discharge Orders/Prescriptions Prescriptions: Continued magnesium oxide 400 mg magnesium tablet 400 mg PO DAILY RF: 0 albuterol sulfate 5 mg/mL solution for nebulization 2.5 mg INHALATION TID-QID PRN (Reason: Shortness Of Breath) RF: 0 furosemide 20 mg tablet 20 mg PO DAILY Qty: 90 RF: 3 lisinopril 20 mg tablet 20 mg PO DAILY RF: 0 potassium chloride 20 mEq tablet extended release 20 meq PO DAILY RF: 0 umeclidinium-vilanterol 62.5-25 mcg/actuation blister with device 1 ea INHALATION DAILY RF: 0 cholecalciferol (vitamin D3) 1,000 UNIT capsule 1,000 unit PO DAILY RF: 0 metoprolol succinate 50 mg tablet extended release 24 hr 50 mg PO DAILY Qty: 60 RF: 11 warfarin 1 mg tablet 2 mg PO .COMPLEX Qty: 90 RF: 3 Referrals / Follow Up: Cheyanne Holt MD [Primary Care Provider] - Within 2 Weeks Arnold Bland MD [STAFF PHYSICIAN] - See Referral Note (As scheduled) Disposition Disposition (needs filled in before D/C Order can be placed): Home, Self Care Charges/Coding Visit Charges Inpatient E&M: 90744 Disch Hosp
[2021-09-14 13:21] VITALS: BP 122/88; PULSE 99; RESP 14; TEMP 35.7; O2SAT 96
== END 2021-09-14 13:02 | disposition home or self-care (01) ==
LOC: ED 06:58 → PCU 07:44
PROVIDERS: Emergency Medicine; Admitting Provider Internal Medicine; Emergency Provider Emergency Medicine; PCP Internal Medicine; Visit Provider Internal Medicine
DX: R53.1 Weakness (principal); R07.89 Other chest pain; M48.00 Spinal stenosis, site unspecified; I48.19 Other persistent atrial fibrillation; I48.92 Unspecified atrial flutter; I11.0 Hypertensive heart disease with heart failure; K21.9 Gastro-esophageal reflux disease without esophagitis; R32 Unspecified urinary incontinence; I50.42 Chronic combined systolic (congestive) and diastolic (congestive) heart failure; J44.9 Chronic obstructive pulmonary disease, unspecified; E78.5 Hyperlipidemia, unspecified; I42.1 Obstructive hypertrophic cardiomyopathy; Z79.899 Other long term (current) drug therapy; Z79.01 Long term (current) use of 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; Z85.72 Personal history of non-Hodgkin lymphomas; Z87.891 Personal history of nicotine dependence
CPT/HCPCS: 36415; 70450; 71045; 80048; 80053; 81001; 82550; 83605; 83735; 84100; 84484; 85025; 85610; 87040; 93005; 94640; 96361; 96372; 96374; 96376; 97162; 97166; 97530; 97535; 99218; 99251; 99285; J7030; J7040; A4216; G0378; G0463; J2405

== ENCOUNTER 2021-10-16 11:30 | Outpatient (RCR) | payer MEDICARE, SELFPAY ==
--- NOTE | 2021-10-03 13:54 | HP.PTEVAL ---
Patient's Visit Information MICHELLE JIMENEZ is a 81 year old F referred to Physical Therapy by Dr. Hari Leroy MD with a diagnosis of BACK AND LEG PAIN. Date of Evaluation: 10/03/21 Physical Therapist: Valentine Guerra, PT, Cert MDT - Visit Plan Frequency: 2-3x /Week Duration: 4-6 Weeks Plan: POSTURE CORRECTION/STRENGTHENING, INSTRUCTION IN APPROPRIATE BODY MECHANICS AND ACTIVITY MODIFICATIONS. *DLS WITH A NEUTRAL SPINE ONLY, TOLERATED. GAIT AND BALANCE TRAINING. GLORIA LE ROM, STRETCHING AND STRENGTHENING. HEP INSTRUCTION. - Subjective Work/Leisure: RETIRED. DOES A LOT OF READING AND WATCHES MOVIES. Present symptoms: LOW BACK PAIN BUT MAINLY PAIN IN LEGS. GLORIA LE WEAKNESS. A LITTLE BIT OF LE NUMBNESS AND TINGLING. Present since: ABOUT A MONTHS. Pain Scale: WORST 7/10, LEAST 0/10. Currently: 0/10. Commenced as a result of: PATIENT REPORTS INCREASED PAIN AFTER 3RD SHOT FOR THE VIRUS. REPORTS SHE GOT SICK TO HER STOMACH IN THE NIGHT AND WENT TO GET OUT OF BED AND HER LEGS WOULDN'T WORK. CALL THE [facility] AND WENT TO THE HOSPITAL. ABOUT 3 HOURS LATER SHE COULD WALK AGAIN. PATIENT REPORTS THE PAIN IN THE MUSCLES IN HER LEGS ARE NOT BACK TO NORMAL YET. SHE REPORTS SHE DID HAVE PAIN IN HER LEGS BEFORE THE SHOT BUT IT IS STILL WORSE NOW. Symptoms at onset: COULDN'T WALK. Worse: STANDING AND WALKING. Better: SITTING AND LYING DOWN. Disturbed sleep: NO. Previous history/Previous treatment: CHRONIC LBP - SPINAL STENOSIS - 4-5 YEARS. WENT AWAY AND CAME BACK LAST YEAR. NO BACK SURGERY. MIMI'S WITH DR. LEROY WITH THE LAST ONE BEING A COUPLE MONTHS AGO AND IT DIDN'T HELP HER LEGS. REPORTS THE SHOTS HELP HER BACK PAIN. WENT TO GET SOME PHYSICAL THERAPY A FEW YEARS AGO AND THINKS IT HELPED SOME. PATIENT REPORTS SHE FELL ON THE ICE ABOUT 4 YEARS AGO AND BROKE HER RIGHT ANKLE. Treatment this episode: NONE. PT ORDER. REFERRAL TO DR. NORMAN A FEW WEEKS AGO BUT REPORTS SHE HASN'T SCHEDULED IT YET. THIS PT ENCOURAGED PATIENT TO SCHEDULE. Coughing/sneezing/straining: NO. Gait: PATIENT REPORTS THERE IS A WEAKNESS IN HER LEGS AND SHE HAS THE FEELING SHE HAS TO STOP AND REST MORE OFTEN. STARTED USING THE CANE SOME (ABOUT 30% OF THE TIME) SINCE GETTING HER COVID BOOSTER (ABOUT A MONTH AGO). Difficulty initiating urination: NO RECENT CHANGES. DENIES LOSS OF BOWEL OR BLADDER CONTROL. Accidents: NO. Unexplained weight loss: NO. Imaging: BACK, PELVIC AND HIP X-RAYS ALONG WITH LUMBAR MRI IN THE spring - SEE [facility] EMR. HISTORY: BACK/LEG PAIN. COMPARISON: CT scan of the abdomen and pelvis from November 26, 2020 which. has sagittal and coronal 2-D reformats which could through the lumbar. spine. FINDINGS: # of images incl. paperwork: 5. XR Spine Lumbar Min 4 Views: Lumbar vertebral bodies are normal in height. Lumbar disc spaces areare fairly well-maintained. There is some degenerative disease with minimal loss of height. There is disease at L4-L5 level. This disease manifested by loss of disc height, endplate sclerosis, and 8. mm of anterior subluxation of L4 on L5. Vacuum disc phenomenon, better demonstrated on the previous CT scan. remains. Facet arthropathy is present within the lower lumbar spine. No pars interarticularis defects redemonstrated at L4 on the CT. Atherosclerosis within the abdominal aorta. Bone island within the left iliac wing is again demonstrated.. No acute lumbar spine fracture or subluxation. RAD/L/S Spine Min 4 Views. IMPRESSION: No acute lumbar spine fracture or subluxation. Levoscoliosis at the thoracolumbar junction remains. 8mm anterior subluxation of L4 on L5 is similar to previous CT of October. 2019. Facet arthropathy greatest at the L4-L5 and L5-S1 level remains. . at 0640 . STUDY: MRI LUMBAR SPINE WITHOUT CONTRAST. REASON FOR EXAM: Female, 81 years old. BACK PAIN, LEG PAIN lbp, bilat. leg pain, hx bone marrow ca- resolved w/ chemo; prev mri 2016. TECHNIQUE: Standardized fat and water weighted pulse sequences were. obtained in the sagittal and axial planes. COMPARISON: MRI lumbar spine dated December 31, 2016. . FINDINGS: No visualized compression deformity or fracture or bone marrow edema. Normal lumbar lordosis. There is a levoscoliosis of the lumbar spine. Normal conus medullaris that terminates at the T12-L1 level. Disc. desiccation is present at all levels. Mild to moderate disc space. narrowing at T12-L1. A small left paracentral and inferior disc extrusion. is present. L1-2: Mild to moderate disc space narrowing with a mild diffuse disc spur. complex. Retrolisthesis of L1 on L2 of 2 to 3 mm.. Normal bilateral facet. joints. Normal central canal and bilateral lateral recesses. Normal. bilateral intervertebral neural foramina. L2-3: Normal endplates. Mild posterior disc space narrowing with a minor. posterior disc spur complex. Retrolisthesis of L2 on L3 of 2 mm. Mild. fluid distention of the right facet joint. Normal central canal and. bilateral lateral recesses. Normal bilateral intervertebral neural. foramina. L3-4: Normal endplates. Mild posterior disc space narrowing without. system bulging or herniation. Retrolisthesis of L3 on L4 of less than 2. mm. Normal bilateral facet joints. Normal central canal and bilateral. lateral recesses. Normal bilateral intervertebral neural foramina. L4-5: Moderate disc space narrowing with a diffuse disc spur complex. Small superior subligamentous disc extrusion is eccentric to the right. Severe facet joint hypertrophy combine with the diffuse disc bulge results. in severe central canal stenosis. Normal bilateral intervertebral neural. foramina. Anterolisthesis of L4 and L5 of 5 mm. L5-S1: Normal endplates. Mild disc space narrowing and posterior annular. bulging with an annular tear. Mild to moderate facet hypertrophy. Normal. central canal and bilateral lateral recesses. Normal bilateral. intervertebral neural foramina. Normal visualized sacral ala. There is mild paraspinal muscular atrophy. . MRI/Spine Lumbar (Routine). IMPRESSION: 1. Multilevel degenerative changes, as described above. 2. Severe central canal stenosis at the L4-L5 level. 3. No significant interval change from the prior study. . Electronically Signed: Felix Love MD. at 19:34 EDT. STUDY: X-RAY - PELVIS AND BILATERAL HIPS. REASON FOR EXAM: Female, 81 years old. HIP PAIN. TECHNIQUE: 5 views of the hips and pelvis. COMPARISON: 05/11/2018. . FINDINGS: Stable left sacral sclerotic bone lesion measuring 1.1 cm. Diffuse osteopenia/osteoporosis. No acute fracture line. No acute. dislocation. No acute cortical destruction. Mild bilateral hip osteoarthritis. Moderate pubic symphysis arthrosis. Mild sacroiliac joint arthrosis. Pelvic enthesophytes. Moderate/severe. lumbar spine arthrosis. No significant soft tissue swelling. . RAD/Hips B/L min 2 views w/ Pelvis. IMPRESSION: . Stable left sacral sclerotic bone lesion (correlate medical history). . Mild/moderate degenerative features, as above. . Electronically Signed: Eduardo Narayan DO. at 9:33 EDT. PMH/Recent major surgery: OPEN HEART SURGERY 2018. H/O BLADDER CANCER - TREATED WITH SURGERY 20 YEARS AGO. H/O BONE MARROW PROBLEMS TREATED WITH CHEMO INFUSIONS 2019. HTN. ON BLOOD THINNER. IRREGULAR HEART BEAT. - Objective Sitting/Standing Posture: POOR. SCOLIOSIS. Active Correction of posture: Other Observations: THIS PATIENT AMBULATES INDEP'LY INTO PT WITH A STRAIGHT CAN, DECREASED CADANCE, GLORIA LE EXTERNAL ROTATION AND INCREASED TRUNK FLEXION. NO LOB. DEMONSTRATES GAIT X APPROX 300 FEET BACK TO TREATMENT ROOM AND AT ABOUT 200 FEET SUZANNE AND STEP LENGTH STARTED TO DECREASE. RIGHT LE ER MORE THAN LEFT. Motor deficit: GLORIA LE WEAKNESS GROSSLY 4/5 IN LLE AND 4-/5 RIGHT LE. Sensory deficit: GLORIA LE LIGHT TOUCH SENSATION GROSSLY INTACT AND SYMMETRICAL. ROM deficit: GLORIA GLORIA LE GASTROC SOLEUS COMPLEX TIGHTNESS AND MILD HS TIGHTNESS. SIGNIFICANT HIP FLEXOR TIGHTNESS. Reflexes: 2/3 GLORIA QUADS AND GLORIA ABSENT ACHILLES. Dural Signs: NEGATIVE GLORIA LE'S. Lumbar mvmt loss: NT. Core strength: POOR. Palpation: MILD TENDERNESS WITH PALPATION OF THE RIGHT LUMBOSACRAL REGION. TREATMENT: NEUROMUSCULAR REEDUCATION - RETRAINING OF MVMT AND POSTURE FOR SITTING, LYING AND STANDING ACTIVITIES. - Balance/Special Test Scores Oswestry Low Back Score: 14 - Goals Goal 1:: DECREASE C/O LOW BACK AND GLORIA LE SX'S. Goal Time Frame: 4-6 Weeks Goal 2:: IMPROVE STANDING AND WALKING FUNCTION Goal Time Frame: 4-6 Weeks Goal 3:: INSTRUCT IN PROPHYLAXIS Goal Time Frame: 4-6 Weeks - Anticipated Interventions Patient/Client Instruction: Educate patient on: Condition, Plan of Care, Risk Factors For the Purpose of:: To improve self management Therapeutic Exercise to Include: Strength training, Body mechanics, Postural training, Flexibilty training, Gait and locomotor training, Neuromotor development, Dynamic Lumbar Stabilization For the Purpose of:: To decrease pain, To improve muscle performance and motor function, To increase tolerance to activity/condition/position, To improve ability of physical actions for home/community/work/leisure, To improve gait and locomotor functions Thank you for the opportunity to evaluate your patient. For Medicare and Medicare HMO plans, please review the plan of care and approve it. It will need to be FAXED BACK to us at [phone] for Medicare purposes. For Medicare only, by signing this I certify the plan of care. Please let me know if there are questions or concerns regarding this plan of care. Physician Signature: Date:
== END 2021-10-16 19:00 | disposition home or self-care (01) ==
LOC: PT 11:30
PROVIDERS: PCP Internal Medicine; Referring Provider Anesthesiology Pain Medicine; Visit Provider Anesthesiology Pain Medicine
DX: M54.9 Dorsalgia, unspecified (principal); M79.606 Pain in leg, unspecified
CPT/HCPCS: 97110; 97112; 97162

== ENCOUNTER → 2021-10-22 06:32 | Outpatient (CLI) | payer MEDICARE, SELFPAY ==
--- NOTE | 2021-10-22 06:36 | ECHOD_ITS ---
Procedure This was a 2D Doppler, Color Flow transthoracic echocardiogram. The study was technically difficult. Exam performed in department. Left Ventricle Normal LV size. Segmental dysfunction with preserved ejection fraction (see wall motion). The estimated ejection fraction is 55 %. Post operative septal motion. Unable to assess diastolic dysfunction. Infero-Basal: Hypokinetic. Basal inferoseptal: Hypokinetic. Mid-inferoseptal : Hypokinetic. Mid-anteroseptal : Hypokinetic. Right Ventricle Normal RV size. Normal systolic function. Atria The left atrium is severely enlarged. The right atrium is severely enlarged. No doppler evidence for ASD. Mitral Valve An annuloplasty ring is noted in the mitral position. Trivial transvalvular insufficiency of the mitral valve. Tricuspid Valve Normal tricuspid valve. Moderate (2+) eccentric tricuspid valve insufficiency. Right ventricular systolic pressure estimated to be 44 mmHg. Aortic Valve Trisinus/trileaflet aortic valve. Mild diffuse aortic valve thickening. Moderate diffuse aortic valve calcification. Pulmonic Valve The pulmonic valve is not well visualized. Mild (1+) pulmonic valve insufficiency. Great Vessels Mildly dilated aortic root. Pericardium/Pleural No pericardial effusion. MMode/2D Measurements & Calculations LVIDd: 4.2 cm IVSd: 1.2 cm LVOT diam: 2.0 cm LVIDs: 3.3 cm LVPWd: 1.1 cm LVOT area: 3.0 cm2 RVDd: 3.4 cm FS: 21.4 % Ao root diam: 4.1 cm LAV(MOD-bp): 100.6 ml LVAd ap4: 19.8 cm2 LAV(MOD-bp) Indexed: 57.1 ml/m2 LVLd ap4: 6.9 cm LAV(MOD-sp2): 100.7 ml EDV(MOD-sp4): 47.6 ml LAV(MOD-sp4): 97.2 ml EDV(sp4-el): 48.2 ml LVAs ap4: 12.1 cm2 LVLs ap4: 5.7 cm ESV(MOD-sp4): 22.5 ml ESV(sp4-el): 21.9 ml EF(MOD-sp4): 52.7 % EF(sp4-el): 54.7 % LVAd ap2: 26.3 cm2 SV(MOD-sp4): 25.0 ml SV(MOD-sp2): 41.7 ml LVLd ap2: 8.0 cm EDV(MOD-sp2): 72.1 ml EDV(sp2-el): 73.1 ml LVAs ap2: 16.0 cm2 LVLs ap2: 7.3 cm ESV(MOD-sp2): 30.5 ml ESV(sp2-el): 29.9 ml EF(MOD-sp2): 57.8 % SV(sp4-el): 26.4 ml LA dimension(2D): 5.6 cm LA A4 area: 29.6 cm2 RA A4 area: 29.0 cm2 Doppler Measurements & Calculations MV E max amanda: 138.2 cm/sec MV V2 max: 151.3 cm/sec Ao V2 max: 125.6 cm/sec MV max P.2 mmHg Ao max P.3 mmHg MV V2 mean: 85.2 cm/sec Ao V2 mean: 76.8 cm/sec MV mean P.5 mmHg Ao mean P.8 mmHg MV V2 VTI: 40.0 cm Ao V2 VTI: 27.2 cm MVA(VTI): 1.7 cm2 ANDRE(I,D): 2.5 cm2 ANDRE(V,D): 2.9 cm2 LV V1 max: 119.8 cm/sec SV(LVOT): 68.9 ml PA V2 max: 142.6 cm/sec LV V1 max P.7 mmHg PA V2 mean: 81.2 cm/sec LV V1 mean P.6 mmHg PA V2 VTI: 42.1 cm LV V1 mean: 76.0 cm/sec LV V1 VTI: 22.9 cm PI end-d amanda: 168.5 cm/sec TR max amanda: 318.3 cm/sec MV P1/2t-pr_phl: 96.2 msec TR max P.5 mmHg ECHO/Echo Complete Interpretation Summary The study was technically difficult. Segmental dysfunction with preserved ejection fraction (see wall motion). The estimated ejection fraction is 55 %. Post operative septal motion. The left atrium is severely enlarged. The right atrium is severely enlarged. An annuloplasty ring is noted in the mitral position. Trivial transvalvular insufficiency of the mitral valve. Moderate (2+) eccentric tricuspid valve insufficiency. Mild diffuse aortic valve thickening. Moderate diffuse aortic valve calcification. Mild (1+) pulmonic valve insufficiency. Mildly dilated aortic root. Right ventricular systolic pressure estimated to be 44 mmHg. Unable to assess diastolic dysfunction. Ordering Physician: Arnold Bland Referring Physician: Ladi Barrett
--- NOTE | 2021-10-22 09:19 | STRESSREP ---
Stress Test Report Date: 10-22-2021 Procedure: Pharmacologic stress nuclear imaging study Indications: Abnormal cardiac enzymes; abnormal ECG; atrial fibrillation/flutter; hyper trophic cardiomyopathy Consent: Per the patient Procedure: The patient underwent pharmacologic (Regadenoson 0.4mg ) evaluation with a peak heart rate of 88 beats per minute (63%predicted maximal heart rate) and a peak blood pressure of 132/88 mmHg. The baseline ECG demonstrated atrial fibrillation/flutter; nonspecific IVCD. The peak pharmacologic ECG demonstrated no obvious ECG changes. There were no cardiac dysrhythmias pretest, during pharmacologic infusion, or recovery. There was no complaint of chest discomfort during pharmacologic infusion or recovery. The examination was discontinued secondary to completion of protocol. Impression: 1. Pharmacologic (Regadenoson) evaluation 2. Peak pharmacologic ECG with no obvious ECG changes. 3. There were no cardiac dysrhythmias pretest, during pharmacologic infusion, or recovery. 4. Nuclear images pending Myocardial perfusion imaging study: Technique: The patient was injected with 10.6 millicuries of technetium 99m Cardiolite and subsequently rest SPECT Cardiolite nuclear imaging was obtained in the horizontal long, vertical long, and short axis views. The patient underwent pharmacologic (Regadenoson) evaluation with a peak heart rate of 88 beats per minute (63% percent predicted maximal heart rate) and a peak blood pressure of 132/88 mmHg. The patient was injected with 33.1 millicuries of technetium 99m Cardiolite and subsequently stress SPECT Cardiolite nuclear imaging was obtained in the horizontal long, vertical long, and short axis views. A gated Cardiolite study at peak stress was not obtained. Interpretation: Rest and stress SPECT Cardiolite nuclear imaging status post realignment, normalization, and attenuation correction demonstrate relative uniform tracer uptake and myocardial perfusion appearing within normal limits. Impression: 1. Rest and stress SPECT Cardiolite nuclear imaging demonstrate relative uniform tracer uptake and myocardial perfusion appearing within normal limits. 2. A gated Cardiolite study was not obtained. This note was generated with [employer] software. It may contain incorrect words, spelling, and punctuation that were not noted in checking the note before signing.
== END ==
PROVIDERS: PCP Internal Medicine; Referring Provider Nurse Practitioner Gerontology; Visit Provider Nurse Practitioner Gerontology
DX: R07.9 Chest pain, unspecified (principal); J96.01 Acute respiratory failure with hypoxia; I42.1 Obstructive hypertrophic cardiomyopathy; I48.91 Unspecified atrial fibrillation; I48.92 Unspecified atrial flutter; Z98.890 Other specified postprocedural states
CPT/HCPCS: 78452; 93017; 93225; 93226; 93306; A9500; A4216; J2785

== ENCOUNTER 2021-10-23 13:58 | Outpatient (RCR) | payer MEDICARE, SELFPAY ==
[2021-09-01 05:01] VITALS: BMI 23.5
[2021-10-02 15:30] LABS: INR Fingerstick 3.3; Prothrombin Time Fingerstick 36.5 SEC (11.9-14.4)
[2021-10-15 13:41] LABS: INR Fingerstick 3.5; Prothrombin Time Fingerstick 38.5 SEC (11.9-14.4)
[2021-10-23 14:10] LABS: INR Fingerstick 2.6; Prothrombin Time Fingerstick 28.8 SEC (11.9-14.4)
== END 2021-11-02 18:00 | disposition home or self-care (01) ==
LOC: LAB 13:58
PROVIDERS: Family Provider Internal Medicine; PCP Internal Medicine; Referring Provider Internal Medicine Cardiovascular Disease; Visit Provider Internal Medicine Cardiovascular Disease
DX: I48.19 Other persistent atrial fibrillation (principal); Z79.01 Long term (current) use of 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
CPT/HCPCS: 36416; 85610

== ENCOUNTER 2021-11-03 16:40 | Emergency (ER) | payer MEDICARE, SELFPAY ==
[2021-11-03 16:40] VITALS: BP 157/76; PULSE 60; RESP 20; TEMP 35.8; O2SAT 98; BMI 23.3
--- NOTE | 2021-11-03 19:18 | ED.RN ---
PATIENT STATES SHE DOES NOT WANT TO WAIT ANY LONGER.
== END 2021-11-03 19:20 | disposition left against medical advice (07) ==
LOC: ED 19:25
PROVIDERS: PCP Internal Medicine
DX: R06.02 Shortness of breath (principal); Z53.21 Procedure and treatment not carried out due to patient leaving prior to being seen by health care provider

== ENCOUNTER 2021-11-04 13:17 | Outpatient (CLI) | payer MEDICARE, SELFPAY | END 2021-11-04 23:59 | disposition short-term general hospital (02) | LOC: LABSPEC 13:19 | PROVIDERS: PCP Internal Medicine; Referring Provider Physician Assistant Surgical; Visit Provider Physician Assistant Surgical | DX: Z20.822 Contact with and (suspected) exposure to COVID-19 (principal) | CPT/HCPCS: 87635; U0003; U0005 ==

== ENCOUNTER 2021-11-12 15:28 | Outpatient (RCR) | payer MEDICARE, SELFPAY ==
[2021-11-04 02:28] VITALS: BMI 23.5
[2021-11-12 15:41] LABS: INR Fingerstick 2.3; Prothrombin Time Fingerstick 27.3 SEC (11.9-14.4)
== END 2021-12-02 18:00 | disposition home or self-care (01) ==
LOC: LAB 15:28
PROVIDERS: Family Provider Internal Medicine; PCP Internal Medicine; Referring Provider Internal Medicine Cardiovascular Disease; Visit Provider Internal Medicine Cardiovascular Disease
DX: I48.19 Other persistent atrial fibrillation (principal); Z79.01 Long term (current) use of 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
CPT/HCPCS: 36416; 85610

== ENCOUNTER 2021-11-29 12:53 | Outpatient (CLI) | payer MEDICARE, SELFPAY | END 2021-11-29 23:59 | disposition short-term general hospital (02) | LOC: PSN 12:54 | PROVIDERS: PCP Internal Medicine; Referring Provider Internal Medicine Cardiovascular Disease; Visit Provider Internal Medicine Cardiovascular Disease | DX: R00.1 Bradycardia, unspecified (principal); I48.19 Other persistent atrial fibrillation | CPT/HCPCS: 93225; 93226 ==

== ENCOUNTER 2021-12-07 01:18 | Emergency (ER) | payer MEDICARE, SELFPAY ==
[2021-12-07 01:20] VITALS: BP 175/101; PULSE 99; RESP 18; TEMP 36.8; O2SAT 98; BMI 26.2
--- NOTE | 2021-12-07 01:36 | EKG12_ITS ---
Test Reason : CP Blood Pressure : / mmHG Vent. Rate : 063 BPM Atrial Rate : 394 BPM P-R Int : 000 ms QRS Dur : 150 ms QT Int : 542 ms P-R-T Axes : 000 -29 139 degrees QTc Int : 554 ms Atrial flutter with variable A-V block Left bundle branch block Abnormal ECG Confirmed by CLAUDIA FORTUNE, KACIE ([id number]), editor sound NAYELI NEGRON ([id number]) on 12/09/2021 10:08:57 AM Referred By: ALLIE Confirmed By:KACIE TAYLOR MD
--- NOTE | 2021-12-07 01:40 | RAD_ITS ---
STUDY: X-RAY CHEST REASON FOR EXAM: Female, 81 years old. Palpitations TECHNIQUE: Single AP portable view of the chest. COMPARISON: None. FINDINGS: Subsegmental atelectases are noted within the lung bases. There is no demonstrated pleural abnormality. Sternal cerclage wires and vascular clips are present from a prior sternotomy and coronary artery bypass graft procedure (CABG). Normal mediastinum and niharika. Normal visualized pulmonary arteries. Normal visualized aortic arch and descending thoracic aorta. Normal visualized thoracic spine. There is degenerative osteoarthritis of the bilateral shoulders. There is no demonstrated abnormality of the visualized soft tissue structures of the upper abdomen. RAD/Chest 1 View (Portable) IMPRESSION: Degenerative changes, as described above. No demonstrated acute cardiopulmonary process. Electronically Signed: Edson Jaimes MD at 1:59 EST ,
[2021-12-07 02:17] LABS: Absolute Lymphocyte Count 1.88 X10^3/uL (0.83-4.51); Absolute Neutrophil Count 6.3 X10^3/uL (2.0-7.7); Basophil# 0.08 X10^3/uL; Basophil% 0.9 % (0-1); Eosinophil# 0.21 X10^3/uL; Eosinophils% 2.3 % (0-5); Hematocrit 44.6 % (37-47); Lymphocyte # 1.88 X10^3/ul (0.83-4.51); Lymphocyte % 20.3 % (19-41); Mean Corp Hgb Conc 33.6 g/dL (32-36); Mean Corpuscular Hgb 26.3 pg (27.0-32.0); Mean Corpuscular Volume 78.2 fL (81-99); Mean Platelet Vol. 10.2 fl (6.2-12.0); Monocyte# 0.73 X10^3/uL; Monocyte% 7.9 % (0-10); NRBC Flagged by Analyzer 0 % (0-5); Neutrophil # 6.26 X10^3/uL (2.7-7.7); Neutrophil % 67.7 % (47-70); Platelet Count 264 K/mm3 (150-450); RBC Distribution Width CV 15.9 % (11.6-14.6); RBC Distribution Width SD 44.9 fl (35.1-43.9); White Blood Count 9.2 K/mm3 (4.4-11.0)
[2021-12-07 02:19] VITALS: BP 140/80; PULSE 76; RESP 20; O2SAT 96
[2021-12-07 02:46] LABS: Anion Gap 8 (5-15); BUN 18 mg/dL (7-18); Calcium,Total 8.9 mg/dL (8.5-10.1); Chloride 108 mmol/L (98-107); Creatinine, Serum 0.86 mg/dL (0.55-1.02); EST Glomerular Filtration Rate 67 mL/min (>60); Est Glom Filt Rate - Afr Amer 81 mL/min (>60); Estimated Creatinine Clearance 47.21 ml/min; Glucose 107 mg/dL (74-106); Sodium Level 140 mmol/L (136-145); Thyroid Stim Hormone (TSH) 2.33 uIU/mL (0.358-3.74); Troponin-I HS 50 pg/mL (3.0-54.0)
--- NOTE | 2021-12-07 03:10 | EX.ED.DYSGE1 ---
HPI History of Present Illness Chief Complaint: Palpitations Narrative Narrative: Patient is an 81-year-old female with past medical history of chronic atrial fibrillation/flutter. She is scheduled to have a pacemaker placed on Thursday. She states she has been on her normal medication except for the Coumadin secondary to this. She reports this evening she felt like her heart was racing and she waited for a few hours but did not have improvement and therefore comes to the ER for evaluation. Patient denies any excessive stimulant use or illicit drug use. She does report that she is seen her tile professional multiple times for this and recently underwent a stress test and echo as well as a Holter monitor study [facility] Medical History (Updated 12/07/21 @ 03:[address] Jeremy Mendez, ) Atrial fibrillation Atrial fibrillation and flutter Atrial fibrillation and flutter Atrial flutter with rapid ventricular response Bladder cancer Chronic diastolic heart failure COPD (chronic obstructive pulmonary disease) Essential hypertension History of cardioversion (~04/25/20) History of left heart catheterization (LHC) (~11/30/17) Hyperlipidemia Hypertension Hypertrophic obstructive cardiomyopathy (HOCM) LBBB (left bundle branch block) Long QT interval Non-Hodgkin lymphoma Nonrheumatic mitral (valve) insufficiency Paroxysmal atrial fibrillation Paroxysmal atrial fibrillation Persistent atrial fibrillation Polyp, sigmoid colon Sick sinus syndrome Home Medications cholecalciferol (vitamin D3) 1,000 unit PO DAILY 08/06/18 [History Last Taken Unknown] albuterol sulfate 5 mg/mL(0.5 %) solution for nebulization 2.5 mg INHALATION TID-QID PRN 04/06/19 [History Last Taken Unknown] magnesium oxide 400 mg PO DAILY tab 04/06/19 [History Last Taken Unknown] furosemide 20 mg tablet 20 mg PO DAILY #90 tab 03/14/20 [Rx Last Taken Unknown] potassium chloride 20 mEq tablet,extended release 20 meq PO DAILY tab 09/04/21 [History Last Taken Unknown] umeclidinium 62.5 mcg-vilanterol 25 mcg/actuation powdr for inhalation 1 ea INHALATION DAILY 09/04/21 [History Last Taken Unknown] warfarin 1 mg tablet 2 mg PO .COMPLEX #90 tab 09/14/21 [Rx Last Taken Unknown] gabapentin 100 mg capsule 100 mg PO DAILY PRN 10/16/21 [History Last Taken Unknown] lisinopril 20 mg tablet 20 mg PO BID #90 tab 12/06/21 [Rx Last Taken Unknown] Allergy/AdvReac Type Severity Reaction Status Date / Time allopurinol Allergy Rash Verified 12/07/21 01:24 tramadol AdvReac dizzy Verified 12/07/21 01:24 Family History Father Heart disease Hypertension Surgical History History of bladder surgery History of mitral valve repair (~07/30/18) History of ventricular septal myectomy (~07/30/18) Social History (Updated 10/16/21 @ 09:27 by Harper Nelson) Smoking Status: Former smoker pack-years: 58 how long ago did patient quit smokin years ago alcohol intake: never substance use type: does not use caffeine: No what type of physical activity do you participate in: walking ROS ROS ED Constitutional Constitutional ED: Denies chills or fever(s) ENT ENT ED: Denies sore throat Cardiovascular Cardiovascular: Reports palpitations and racing heartbeat; Denies chest pain Respiratory/Chest Respiratory/Chest: Denies cough or dyspnea Gastrointestinal Gastrointestinal: Denies abdominal pain, diarrhea, nausea or vomiting Genitourinary Genitourinary ED: Denies dysuria Musculoskeletal Musculoskeletal: Denies myalgias Integumentary Denies rash Neurologic Neurologic: Denies headache(s) Psychiatric Psychiatric: Reports anxiety Hematologic/Lymphatic Hematologic/Lymphatic: Reports easy bleeding and easy bruising EXAM Physical Exam Const Vital Signs: 12/07/21 01:20 12/07/21 01:25 12/07/21 02:19 Temperature 98.3 F Temperature Source Oral Pulse Rate 99 76 Respiratory Rate 18 20 H Respiratory Effort Normal Respiratory Pattern Normal Blood Pressure 175/101 H 140/80 H Blood Pressure Mean 125 100 Pulse Ox 98 96 Oxygen Delivery Method Room Air Room Air 12/07/21 03:15 Temperature Temperature Source Pulse Rate 70 Respiratory Rate 14 Respiratory Effort Respiratory Pattern Blood Pressure Blood Pressure Mean Pulse Ox 99 Oxygen Delivery Method Positive well nourished and well developed General Appearance ED: well developed HEENT Reports moist mucous membranes Eyes PERRL and EOMs intact bilaterally Neck supple and no JVD Resp normal respiratory effort and clear to auscultation bilaterally Cardio regular rate Rate: other Other Details: Irregularly irregular rhythm with regular rate. Radial pulses are plus 2 out of 4 bilaterally are equal and symmetric GI normal to inspection, nondistended, normoactive bowel sounds, non-tender, non-distended and no masses GI Narrative: No voluntary guarding or rigidity no pulsatile mass Auscultation: normoactive bowel sounds Palpation: soft Extremity normal to inspection Neuro oriented x3 and CN's II-XII intact bilaterally Sensorium / Orientation: alert Motor Exam: strength 5/5 throughout Psych Mood & Affect: anxious Skin no rashes or lesions noted MDM MDM MDM Narrative Medical decision making narrative: Scented to the ER awake and alert with normal neurologic exam. She had an irregular heart rhythm but chart review reveals this is chronic for her and she was rate controlled. With her report of feeling palpitations as well as tachycardia at home I did elect to perform basic laboratory studies. Blood work revealed no clinically significant findings and her troponin is near her baseline at 50. Chest x-ray also revealed no acute lung pathology. The patient was watched in the ER and she had no bouts of tachycardia. Therefore at this time as patient has undergone recent echo and stress as well as Holter monitor study and has a documented history of chronic A. fib/flutter I do not feel there is need for admission as she is rate controlled with stable labs and therefore can be discharged and undergo her pacemaker placement in the next few days Lab Data Attestation: I reviewed the patient's lab results. Labs: Laboratory Results - last 24 hr 12/07/21 12/07/21 01:54 01:54 WBC 9.2 RBC 5.70 H Hgb 15.0 Hct 44.6 MCV 78.2 L MCH 26.3 L MCHC 33.6 RDW Std Deviation 44.9 H RDW Coeff of Neelima 15.9 H Plt Count 264 MPV 10.2 Immature Gran % (Auto) 0.900 Neut % (Auto) 67.7 Lymph % (Auto) 20.3 Tucker % (Auto) 7.9 Eos % (Auto) 2.3 Baso % (Auto) 0.9 Absolute Neuts (auto) 6.3 Absolute Lymphs (auto) 1.88 Nucleated RBC % 0 Sodium 140 Potassium 4.0 Chloride 108 H Carbon Dioxide 24.0 Anion Gap 8 BUN 18 Creatinine 0.86 Estim Creat Clear Calc 47.21 Est GFR (MDRD) Af Amer 81 Est GFR (MDRD) Non-Af 67 BUN/Creatinine Ratio 21.0 H Glucose 107 H Calcium 8.9 Troponin I High Sens 50 TSH 2.33 Radiography Diagnostic Testing: Clinical Impression(s) from Imaging Studies Chest X-Ray 12/07/21 01:40 IMPRESSION: Degenerative changes, as described above. No demonstrated acute cardiopulmonary process. Electronically Signed: Edson Jaimes MD at 1:59 EST Reading Location ID and State: [facility] / [place] Tel , Service support , Discharge Plan Triage Chief Complaint: Palpitations ED Provider: Jeremy Mendez Dx/Rx/DC Orders Clinical Impression: Atrial fibrillation and flutter Instructions: ED About Arrhythmias, ED Atrial Flutter Prescriptions: No Action magnesium oxide 400 mg magnesium tablet 400 mg PO DAILY RF: 0 albuterol sulfate 5 mg/mL solution for nebulization 2.5 mg INHALATION TID-QID PRN (Reason: Shortness Of Breath) RF: 0 furosemide 20 mg tablet 20 mg PO DAILY Qty: 90 RF: 3 potassium chloride 20 mEq tablet extended release 20 meq PO DAILY RF: 0 gabapentin 100 mg capsule 100 mg PO DAILY PRN (Reason: Pain) RF: 0 umeclidinium-vilanterol 62.5-25 mcg/actuation blister with device 1 ea INHALATION DAILY RF: 0 cholecalciferol (vitamin D3) 1,000 UNIT capsule 1,000 unit PO DAILY RF: 0 warfarin 1 mg tablet 2 mg PO .COMPLEX Qty: 90 RF: 3 Hold Instructions: Having pacemaker implant lisinopril 20 mg tablet 20 mg PO BID Qty: 90 RF: 3 Primary Care Provider: Cheyanne Holt Referrals: Cheyanne Holt MD [Primary Care Provider] - Arnold Bland MD [STAFF PHYSICIAN] - 3-5 Days if not improving Activity Restrictions/Additional Instructions: Please continue all of your normal medications besides the Coumadin/warfarin because of your upcoming pacemaker placement and return to the ER should you have any further concerns Disposition Disposition: Home, Self Care Discharge Date/Time: 12/07/21 03:15
[2021-12-07 03:15] VITALS: PULSE 70; RESP 14; O2SAT 99
== END 2021-12-07 03:15 | disposition home or self-care (01) ==
PROVIDERS: Emergency Provider Emergency Medicine; PCP Internal Medicine; Visit Provider Emergency Medicine
DX: I48.20 Chronic atrial fibrillation, unspecified (principal); J44.9 Chronic obstructive pulmonary disease, unspecified; I11.0 Hypertensive heart disease with heart failure; I50.32 Chronic diastolic (congestive) heart failure; I42.1 Obstructive hypertrophic cardiomyopathy; I48.0 Paroxysmal atrial fibrillation; I49.5 Sick sinus syndrome; E78.5 Hyperlipidemia, unspecified; Z87.891 Personal history of nicotine dependence; Z79.01 Long term (current) use of 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; Z79.899 Other long term (current) drug therapy
CPT/HCPCS: 71045; 80048; 84443; 84484; 85025; 93005; 99285

== ENCOUNTER 2021-12-10 12:15 | Observation (INO) | payer MEDICARE, SELFPAY ==
[2021-12-10] VITALS (10 sets, daily range): BP systolic 121–152; BP diastolic 73–107; PULSE 62–85; RESP 16–18; TEMP 36.2–36.6; O2SAT 92–100; BMI 28.9; BMI 23.8
[2021-12-10 10:07] LABS: INR Fingerstick 1.3; Prothrombin Time Fingerstick 16.4 SEC (11.9-14.4)
--- NOTE | 2021-12-10 12:26 | CL.IE_ITS ---
Patient: MICHELLE JIMENEZ Study Date: 12/10/2021 Performing: Mart Souza MD : [id number] Age: 81 Gender: female PROCEDURES PERFORMED [id number])INITIAL PACER INSERT+VENTRICULAR LEAD INDICATIONS Sinoatrial node dysfunction/Sick sinus syndrome PROCEDURE DETAILS The patient was brought to the Catheterization Lab in the postabsorptive nonsedated state. Infor med consent was obtained prior to the procedure. Local anesthetic was given subcutaneously to the le ft subclavian region with Lidocaine 2%. Access was achieved and a guidewire was advanced into the lef t subclavian vein. Incision was made to the left upper chest. PPM ventricular lead was inserted / pos itioned to right ventricular septal wall. PPM atrial lead testing performed. The Ventricular PM lead sutured in place with 2-0 Silk. Device pocket was irrigated with antibiotic. PPM generator was attach ed to the lead(s) and inserted into the pocket. The PPM generator was sutured in place with 2-0 Silk. PPM generator was then interrogated by the programmer analyst. Subcutaneous closure was completed with 3-0 V icryl. Skin closure was completed with 4-0 Vicryl. Steri-strips applied to left subclavicular incisio n. Instrument, sponge, and needle counts were noted to be normal. The patient tolerated the procedure well. Estimated Blood Loss: 20 ml's IMPLANTED / EX-PLANTED DEVICES IMPLANTED DEVICE(S): PPM Ventricular lead - Slice Cutting Machine Operator Helper: DigiSynd, Model # [id number] , Serial # [id number] PPM Generator - Slice Cutting Machine Operator Helper: [employer], Model # L1110 , Serial # [id number] DEVICE PARAMETERS DEVICE PARAMETERS: Mode - VVI lower rate - 60 rate response off Mode- VVI Lower rate- 60 CONCLUSIONS / RECOMMENDATIONS Device Conclusions: Successful implantation of a single chamber pacemaker Device Recommendations: Follow up with Primary Care Physician PROCEDURE MEDICATIONS Fentanyl 50 mcg IV Versed 1 mg IV Versed 1 mg IV Oxygen: 2 L/min via nasal cannula Ancef 2 Gm IV @ 12/10/2021 11:15:36 Signed By Mart Souza MD On 12/10/2021 12:25:10 Mart Souza MD
[2021-12-10] MEDS: Acetaminophen 325 MG Tablet PO (21:33)
[2021-12-10] MEDS: Lisinopril 20 MG Tablet PO (21:33)
[2021-12-11] VITALS (7 sets, daily range): BP systolic 130–137; BP diastolic 83–99; PULSE 63–85; RESP 16–18; TEMP 36.1–36.6; O2SAT 94–97
--- NOTE | 2021-12-11 05:55 | RAD_ITS ---
STUDY: X-RAY CHEST REASON FOR EXAM: Female, 81 years old. Post permanant ICD/Pacemaker -- inspiration/expiration. Arms Down. Wet read to MD TECHNIQUE: Two view, frontal and lateral, with inspiration and expiration views. COMPARISON: None. FINDINGS: Pacemaker is seen in the left side. The lungs are clear underexpanded. Subsegmental atelectases are noted in the lung bases. There is no demonstrated pleural abnormality. Sternal cerclage wires are present from a prior sternotomy. Normal mediastinum and niharika. Normal visualized pulmonary arteries. Normal visualized aortic arch and descending thoracic aorta. Normal visualized thoracic spine. Normal visualized ribs, clavicles, and shoulders. There is no demonstrated abnormality of the visualized soft tissue structures of the upper abdomen. RAD/Chest 3 View IMPRESSION: No demonstrated acute cardiopulmonary process. Electronically Signed: Edson Jaimes MD at 6:33 EST ,
--- NOTE | 2021-12-11 08:34 | PN.CARD_ITS ---
Subjective Subjective Pt seen and evaluated Objective Data Vital Signs: Vital Signs Temp Pulse Resp BP Pulse Ox 97 F L 80 16 130/99 H 97 12/11/21 06:29 12/11/21 07:00 12/11/21 06:29 12/11/21 06:29 12/11/21 06:29 Oxygen Delivery Method Room Air Weight: 148 lb 0.011 oz Body Mass Index (BMI) 23.8 Intake & Output: Intake and Output for Last 24 Hours 12/09/21 12/10/21 12/11/21 23:59 23:59 23:59 Intake Total 240 / 360 120 / 120 Output Total 700 / 700 Balance 240 / 60 -580 / -580 Lab / Micro Data Labs: Laboratory Results - last 24 hr 12/10/21 09:56: PT Cancelled, INR Cancelled 12/10/21 09:59: POC PT 16.4 H, INR 1.3 Cardiology Labs/Tests 12/10/21 09:56: PT Cancelled, INR Cancelled 12/10/21 09:59: INR 1.3 Rhythm: EKG: ECHO: Stress Test: Cardiac Cath: PCI: CT Surgery: Holter monitor: EPS: PPM: CXR: Chest CT Scan: Radiography Diagnostic Testing: Radiology Impression Chest X-Ray 12/11/21 05:55 IMPRESSION: No demonstrated acute cardiopulmonary process. Electronically Signed: Edson Jaimes MD at 6:33 EST Reading Location ID and State: [address] [place] [address] Tel , Service support , Physical Exam Const alert, oriented x3 and no apparent distress General Appearance: cooperative HEENT hearing grossly normal bilaterally Head and Scalp: atraumatic Eyes EOMs intact bilaterally Neck General: normal visual inspection Chest inspection of chest normal and palpation of chest normal Resp normal respiratory effort Auscultation: clear to auscultation bilaterally Cardio regular rate, regular rhythm, S1 normal heart sound and S2 normal heart sound Jugular Venous Distention: JVD GI normal to inspection, nondistended, normoactive bowel sounds Extremity normal capillary refill and no pedal edema Peripheral Pulses: Yes pulses 2+ throughout and femoral pulses present Skin no rashes or lesions noted Neuro oriented x3 and CN's II-XII intact bilaterally Psych Appearance: grossly normal and appropriate Assessment & Plan Assessment/Plan (1) Presence of permanent cardiac pacemaker: PLAN: Pacer placed and pt ding well. CXR is stable and pacer check are WNL
--- NOTE | 2021-12-11 08:36 | DCINST_ITS ---
Discharge Instructions Diet Discharge Diet: No restrictions (as you feel able. No excessive stretching. No lifting your arm over your head (keep elbow below shoulder level) until seen for your pacemaker check. Do not lift your elbow away from your side until you are seen for your first visit. Keep the arm sling on if it helps remind you not to lift your arm.) Activity Discharge Activity: May Not Drive May shower in (days): 3 Dressing / Incision Call your doctor if your incision/area has: Continuous Slow Oozing, Sudden Increased Bleeding, Increased Pain/ Swelling, Increased Redness, Foul Smelling D ischarge and Swelling at the incision site Call your doctor if you observe: Fever of 101 or Higher, Shortness of breath, Dizziness, Fainting spells, Swelling in the ankles, Chest pain, Prolonged hiccupping and Increased palpitations (irregular heartbeat) Additional Dressing/Incision Instructions:: When dressing is removed, wash and dry incision. Keep covered with a light bandage if it is rubbing against your clothing. Do not cover the incision with an airtight bandage. Change the bandage daily. Do not remove steri strips. The strips will fall off on their own. Follow Up Care Please Follow Up With: Mart Souza MD When: Call [phone] for follow up. Pacer clinic on December 17 at 1 pm Test Results: Test results from this visit will be discussed in further detail at your follow-up appointment, if applicable. Discharge Plan Admission Admit Date/Time: 12/10/21 12:15 Attending Provider: Mart Souza Primary Care Provider: Cheyanne Holt Discharge Orders/Prescriptions Prescriptions: Continued magnesium oxide 400 mg magnesium tablet 400 mg PO DAILY RF: 0 albuterol sulfate 5 mg/mL solution for nebulization 2.5 mg INHALATION TID-QID PRN (Reason: Shortness Of Breath) RF: 0 furosemide 20 mg tablet 20 mg PO DAILY Qty: 90 RF: 3 potassium chloride 20 mEq tablet extended release 20 meq PO DAILY RF: 0 gabapentin 100 mg capsule 100 mg PO DAILY PRN (Reason: Pain) RF: 0 umeclidinium-vilanterol 62.5-25 mcg/actuation blister with device 1 ea INHALATION DAILY RF: 0 cholecalciferol (vitamin D3) 1,000 UNIT capsule 1,000 unit PO DAILY RF: 0 lisinopril 20 mg tablet 20 mg PO BID Qty: 90 RF: 3 Held warfarin 1 mg tablet 2 mg PO .COMPLEX Qty: 90 RF: 3 Hold Instructions: Resume on 12/18/21. Referrals / Follow Up: Cheyanne Holt MD [Primary Care Provider] - Disposition Disposition (needs filled in before D/C Order can be placed): Home, Self Care
[2021-12-11] MEDS: Acetaminophen 325 MG Tablet PO (08:49)
[2021-12-11] MEDS: Magnesium Chloride 64 MG Delay Rel.Tablet 128 MG PO (09:46)
[2021-12-11] MEDS: Lisinopril 20 MG Tablet PO (09:46)
== END 2021-12-11 13:47 | disposition home or self-care (01) ==
LOC: PCU 12:40
PROVIDERS: Admitting Provider Internal Medicine Cardiovascular Disease; PCP Internal Medicine; Referring Provider Internal Medicine Cardiovascular Disease; Visit Provider Internal Medicine Cardiovascular Disease
DX: I49.5 Sick sinus syndrome (principal); J44.9 Chronic obstructive pulmonary disease, unspecified; I50.32 Chronic diastolic (congestive) heart failure; I11.0 Hypertensive heart disease with heart failure; I48.0 Paroxysmal atrial fibrillation; I48.92 Unspecified atrial flutter; Z79.01 Long term (current) use of 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; Z79.899 Other long term (current) drug therapy; E78.5 Hyperlipidemia, unspecified; Z87.891 Personal history of nicotine dependence
CPT/HCPCS: 33207; 36416; 71047; 85610; 99152; 99153; 99218; J7040; J7050; C1894; G0378

== ENCOUNTER 2021-12-17 13:39 | Outpatient (CLI) | payer MEDICARE, SELFPAY ==
--- NOTE | 2021-12-17 13:42 | ART_ITS ---
Reason For Study: claudication and tingling inthe toes Procedure A bilateral lower extremity continuous wave Doppler with analog waveform analysis and ankle brachial indexes. Left Segmental Pressures Left brachial= 122mmHg. Left posterior tibial artery = 179mmHg. Left dorsalis pedis artery = 151mmHg. Left digit = 92 mmHg. The left dorsalis pedis waveforms are triphasic. The left posterior tibial artery waveforms are triphasic. Right Segmental Pressures Right brachial= 131mmHg. Right posterior tibial artery = 202mmHg. Right dorsalis pedis artery = 135mmHg. Right digit = 75 mmHg. The right dorsalis pedis waveforms are triphasic. The right posterior tibial artery waveforms are triphasic. Indices The right ankle brachial index by the dorsalis pedis is 1.03. The right ankle brachial index by the posterior tibial artery is 1.54. The right digital-brachial index is .57. The left ankle brachial index by the posterior tibial artery is 1.37. The left ankle brachial index by the dorsalis pedis is 1.15. The left digital-brachial index is .7. VL/Ankle Brachial Index Interpretation Summary Bilateral no significant occlusive disease at rest. There is triphasic flow not ed with an GENE 1.54 and 1.37. There are peaked waveforms and the ABIs are falsely elevated probably related to medial calcinosis. Digit brachial index with mild small vessel disease on the right at 0. 5 7 and 0.7 on the left. Ordering Physician: Arnold Bland Performed By: Attila Blanca RVT
== END 2021-12-17 23:59 | disposition home or self-care (01) ==
LOC: CVS 13:40
PROVIDERS: PCP Internal Medicine; Referring Provider Internal Medicine Cardiovascular Disease; Visit Provider Internal Medicine Cardiovascular Disease
DX: I73.9 Peripheral vascular disease, unspecified (principal); G62.9 Polyneuropathy, unspecified; M48.061 Spinal stenosis, lumbar region without neurogenic claudication; M54.16 Radiculopathy, lumbar region
CPT/HCPCS: 93922

== ENCOUNTER 2021-12-26 10:54 | Outpatient (RCR) | payer MEDICARE, SELFPAY ==
[2021-12-03 02:12] VITALS: BMI 23.5
[2021-12-26 12:01] LABS: International Normalized Ratio 1.4; Prothrombin Time (Protime)PT. 16.4 SECONDS (11.7-14.9)
[2021-12-27 09:16] LABS: INR Fingerstick 1.3; Prothrombin Time Fingerstick 16.3 SEC (11.9-14.4)
== END 2021-12-26 23:59 | disposition home or self-care (01) ==
LOC: LAB 10:54
PROVIDERS: Family Provider Internal Medicine; PCP Internal Medicine; Referring Provider Internal Medicine Cardiovascular Disease; Visit Provider Internal Medicine Cardiovascular Disease
DX: I48.19 Other persistent atrial fibrillation (principal); Z79.01 Long term (current) use of 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
CPT/HCPCS: 36415; 36416; 85610

== ENCOUNTER 2022-01-27 12:53 | Outpatient (RCR) | payer MEDICARE, SELFPAY ==
[2021-12-31 10:23] VITALS: BMI 23.5
[2022-01-02 12:57] LABS: Mucous, Urine 0 SEEN /hpf (<or=2+)
[2022-01-02 13:49] LABS: Color, Urine Yellow (Yellow); Glucose, Dipstick Normal (Normal); Hematocrit 51.2 % (37-47); Hemoglobin 16.4 g/dL (12.0-15.0); Ketone-Dipstick Negative (Negative); Leukocyte Esterase-Dipstick 100 /ul (Negative); Mean Corpuscular Hgb 26.5 pg (27.0-32.0); Mean Corpuscular Volume 82.7 fL (81-99); Mean Platelet Vol. 10.4 fl (6.2-12.0); Nitrite-Dipstick Positive (Negative); Occult Blood-Urine 10 /ul (Negative); Platelet Count 288 K/mm3 (150-450); Protein-Dipstick 15 mg/dl (Negative); RBC Distribution Width CV 17.3 % (11.6-14.6); RBC Distribution Width SD 48.8 fl (35.1-43.9); Red Blood Count 6.19 M/mm3 (4.2-5.4); Specific Gravity, Urine 1.015 (1.002-1.030); Urine Bilirubin Dipstick Negative (Negative); Urine Clarity Sl. Cloudy (Clear); Urine Urobilinogen Normal (Normal); White Blood Count 10.7 K/mm3 (4.4-11.0)
[2022-01-02 14:05] LABS: Bacteria 4+ /hpf (None Seen); Red Blood Cells-Urine 0-5 SEEN /hpf (0-5); Squamous Epithelial Cells - UA 0-5 SEEN /hpf (5-10); White Blood Cells 10-25 SEEN /hpf (0-5)
[2022-01-02 14:08] LABS: International Normalized Ratio 1.9; Prothrombin Time (Protime)PT. 20.6 SECONDS (11.7-14.9)
[2022-01-02 14:09] LABS: Anion Gap 4 (5-15); BUN 22 mg/dL (7-18); BUN/Creat Ratio 21.6 RATIO (10-20); Calcium,Total 9.1 mg/dL (8.5-10.1); Chloride 107 mmol/L (98-107); Creatinine, Serum 1.02 mg/dL (0.55-1.02); EST Glomerular Filtration Rate 55 mL/min (>60); Est Glom Filt Rate - Afr Amer 67 mL/min (>60); Glucose 98 mg/dL (74-106); Potassium 4.7 mmol/L (3.5-5.1); Sodium Level 142 mmol/L (136-145)
[2022-01-13 13:21] LABS: INR Fingerstick 1.9; Prothrombin Time Fingerstick 22.3 SEC (11.7-14.9)
[2022-01-27 13:05] LABS: INR Fingerstick 1.7; Prothrombin Time Fingerstick 20.9 SEC (11.7-14.9)
== END 2022-01-30 18:00 | disposition home or self-care (01) ==
LOC: LAB 12:53
PROVIDERS: Family Provider Internal Medicine; PCP Internal Medicine; Referring Provider Internal Medicine Cardiovascular Disease; Visit Provider Internal Medicine Cardiovascular Disease
DX: I48.91 Unspecified atrial fibrillation (principal); I48.92 Unspecified atrial flutter; I49.5 Sick sinus syndrome; Z79.01 Long term (current) use of 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
CPT/HCPCS: 36415; 36416; 80048; 81001; 85027; 85610

== ENCOUNTER 2022-02-24 15:36 | Outpatient (RCR) | payer MEDICARE, SELFPAY ==
[2022-01-31 03:39] VITALS: BMI 23.5
[2022-02-03 12:40] LABS: INR Fingerstick 1.5; Prothrombin Time Fingerstick 18.7 SEC (11.7-14.9)
[2022-02-10 15:35] LABS: INR Fingerstick 2.8
[2022-02-17 13:15] LABS: INR Fingerstick 3.1; Prothrombin Time Fingerstick 35.1 SEC (11.7-14.9)
[2022-02-24 15:45] LABS: INR Fingerstick 2.4; Prothrombin Time Fingerstick 28.2 SEC (11.7-14.9)
== END 2022-02-24 18:00 | disposition home or self-care (01) ==
LOC: LAB 15:36
PROVIDERS: Family Provider Internal Medicine; PCP Internal Medicine; Referring Provider Internal Medicine Cardiovascular Disease; Visit Provider Internal Medicine Cardiovascular Disease
DX: I48.19 Other persistent atrial fibrillation (principal); I48.92 Unspecified atrial flutter; I49.5 Sick sinus syndrome; Z79.01 Long term (current) use of 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
CPT/HCPCS: 36416; 85610

== ENCOUNTER 2022-04-01 14:17 | Outpatient (RCR) | payer MEDICARE, SELFPAY ==
[2022-03-02 04:47] VITALS: BMI 23.5
[2022-03-17 14:06] LABS: INR Fingerstick 2.3; Prothrombin Time Fingerstick 26.8 SEC (11.7-14.9)
[2022-03-25 12:45] LABS: INR Fingerstick 3.1; Prothrombin Time Fingerstick 35.1 SEC (11.7-14.9)
[2022-04-03 13:40] LABS: INR Fingerstick 2.4; Prothrombin Time Fingerstick 28.2 SEC (11.7-14.9)
== END 2022-04-01 18:00 | disposition home or self-care (01) ==
LOC: LAB 14:17
PROVIDERS: Family Provider Internal Medicine; PCP Internal Medicine; Referring Provider Internal Medicine Cardiovascular Disease; Visit Provider Internal Medicine Cardiovascular Disease
DX: I48.92 Unspecified atrial flutter; Z79.899 Other long term (current) drug therapy; I48.19 Other persistent atrial fibrillation
CPT/HCPCS: 36416; 85610

== ENCOUNTER 2022-04-09 12:34 | Observation (INO) | payer MEDICARE, SELFPAY ==
[2022-04-09] VITALS (14 sets, daily range): BP systolic 114–166; BP diastolic 62–99; PULSE 60–66; RESP 18–38; TEMP 36.7–38.2; O2SAT 88–97; BMI 23.8; BMI 23.2
--- NOTE | 2022-04-09 12:47 | EKG12_ITS ---
Test Reason : SOB Blood Pressure : / mmHG Vent. Rate : 060 BPM Atrial Rate : 357 BPM P-R Int : 000 ms QRS Dur : 154 ms QT Int : 602 ms P-R-T Axes : 000 -66 098 degrees QTc Int : 602 ms Ventricular-paced rhythm Abnormal ECG Underlying afib Confirmed by CLAUDIA FORTUNE, KACIE ([id number]), senior technical editor NAYELI NEGRON ([id number]) on 04/14/2022 7:35:58 AM Referred By: RASHMI
--- NOTE | 2022-04-09 12:51 | EDS_ITS ---
HPI <KAROLINA Hicks - Last Filed: 04/09/22 15:52> History of Present Illness Chief Complaint: Shortness of Breath Narrative Narrative: 82-year-old female with history of COPD a flutter bladder cancer hypertension on Coumadin presents to the emergency department with increased shortness of breath. Patient is currently being treated antibiotics secondary to urinary tract infection, patient states today she woke up had diarrhea and also felt that she was short of breath. Patient states that shortness of breath did not get better, she felt feverish, she is here for evaluation. Patient denies any new cough, nausea or vomiting. Patient states to have no blood in her diarrhea PFS <KAROLINA Hicks - Last Filed: 04/09/22 15:52> [facility] Medical History Atrial fibrillation Atrial fibrillation and flutter Atrial fibrillation and flutter Atrial flutter with rapid ventricular response Bladder cancer Chronic diastolic heart failure COPD (chronic obstructive pulmonary disease) Essential hypertension History of cardioversion (~04/25/20) History of left heart catheterization (LHC) (~11/30/17) Hyperlipidemia Hypertension Hypertrophic obstructive cardiomyopathy (HOCM) LBBB (left bundle branch block) Long QT interval Non-Hodgkin lymphoma Nonrheumatic mitral (valve) insufficiency Paroxysmal atrial fibrillation Paroxysmal atrial fibrillation Persistent atrial fibrillation Polyp, sigmoid colon Presence of permanent cardiac pacemaker (~12/10/21) Sick sinus syndrome Home Medications cholecalciferol (vitamin D3) 1,000 unit PO DAILY 08/06/18 [History Last Taken 04/08/22] magnesium oxide 400 mg PO DAILY tab 04/06/19 [History Last Taken 04/08/22] warfarin 1 mg tablet 2 mg PO .COMPLEX #90 tab 09/14/21 [Rx Last Taken 04/08/22] gabapentin 100 mg capsule 100 mg PO DAILY PRN 10/16/21 [History Last Taken 04/08/22] furosemide 20 mg tablet 20 mg PO DAILY PRN tab 03/17/22 [History Last Taken Unknown] potassium chloride 20 mEq tablet,extended release 20 meq PO DAILY PRN tab 03/17/22 [History Last Taken Unknown] lisinopril 20 mg PO DAILY 04/09/22 [History Last Taken 04/08/22] nitrofurantoin monohyd/m-cryst 100 mg PO BID 04/09/22 [History Last Taken 04/08/22] omeprazole 20 mg PO DAILY 04/09/22 [History Last Taken 04/08/22] Allergy/AdvReac Type Severity Reaction Status Date / Time allopurinol Allergy Rash Verified 04/09/22 12:47 tramadol AdvReac dizzy Verified 04/09/22 12:47 Family History Father Heart disease Hypertension Surgical History History of bladder surgery History of mitral valve repair (~07/30/18) History of ventricular septal myectomy (~07/30/18) Social History Smoking Status: Former smoker pack-years: 58 how long ago did patient quit smokin years ago alcohol intake: never substance use type: does not use caffeine: No what type of physical activity do you participate in: walking ROS <KARLOINA Hicks - Last Filed: 04/09/22 15:52> ROS ED ROS Narrative Constitutional: Negative for weight loss, weakness. Positive fever and chills Eyes: Negative for vision loss, vision change, double vision ENT: Negative for any sore throat, ear pain, congestion Cardiovascular: Negative for any chest pain, tightness, palpitations Respiratory: Negative for any cough, sputum production, hemoptysis, orthopnea. Positive for dyspnea, dyspnea on exertion Gastrointestinal: Negative for any abdominal pain, nausea, vomiting, constipation, blood in stool, blood in vomit. Positive for diarrhea : Negative for any urinary frequency, dysuria, retention, blood in urine Muscle skeletal: Negative for any muscle joint pain, stiffness, myalgias, arthralgias, neck pain, back pain Neurological: Negative for any headache, syncope, numbness or tingling, dizziness Skin: Negative for any rashes, lumps, itching, abrasions, lacerations Psychiatric: Negative for any depression, anxiety, stress, suicidal ideation, homicidal ideation Hematologic: Negative for any easy bruising, excessive bruising, easy bleeding Allergies: Negative for any eczema, hives, rash EXAM <KAROLINA Hicks - Last Filed: 04/09/22 15:52> Physical Exam Narrative Exam Narrative: Vital signs reviewed. Patient is 94% on 3 L of oxygen, she does have oxygen at home that she wears intermittently. GCS of 15, patient is tachypneic. HEET: Head normocephalic atraumatic, TMs clear bilaterally. Posterior pharynx is clear, moist mucous membranes. Nares clear bilaterally. Neck: Supple with no lymphadenopathy or tenderness. No signs of meningismus, negative jolt sign. Cardiac: Regular rate and rhythm no murmurs gallops or rubs, equal peripheral pulses bilaterally. Paced rhythm Respiratory: Patient has minimal air movement in lungs, diminished breath sounds. No chest tenderness. Tachypneic Abdomen: Soft, nontender, nondistended. No abdominal bruit or pulsatile masses. No hepatosplenomegaly Extremities: No peripheral edema, no signs of gross trauma or deformity. Active full range of motion of all extremities. Neuro: Cranial nerves II through XII intact, no focal neurological deficits. Skin: Clean dry and intact with no rash, purpura, petechiae, vesicles or pustules. Backs/flank: No CVA tenderness, no midline spinal tenderness, no deformity. Psych: Normal mood and affect. No SI, HI or acute psychosis. Const Vital Signs: 04/09/22 12:39 04/09/22 13:00 04/09/22 13:08 Temperature 100.8 F H Temperature Source Temporal Pulse Rate 66 60 Respiratory Rate 38 H 34 H Respiratory Effort Labored Short of Breath Respiratory Depth Shallow Respiratory Pattern Tachypnea Blood Pressure 166/89 H Blood Pressure Mean 114 Pulse Ox 93 93 Oxygen Delivery Method Nasal Cannula Nasal Cannula Nasal Cannula Oxygen Flow Rate (L/min) 2 3 2.5 04/09/22 13:39 04/09/22 13:41 04/09/22 14:54 Temperature 100.8 F H 98.7 F Temperature Source Temporal Oral Pulse Rate 60 Respiratory Rate 23 H Respiratory Effort Respiratory Depth Respiratory Pattern Blood Pressure 152/72 H Blood Pressure Mean 98 Pulse Ox 93 Oxygen Delivery Method Nasal Cannula Nasal Cannula Oxygen Flow Rate (L/min) 2.5 2 04/09/22 14:59 04/09/22 15:02 04/09/22 16:15 Temperature Temperature Source Pulse Rate 62 60 Respiratory Rate 29 H 21 H Respiratory Effort Respiratory Depth Respiratory Pattern Blood Pressure 148/72 H 133/80 H Blood Pressure Mean 97 97 Pulse Ox 88 95 97 Oxygen Delivery Method Room Air Nasal Cannula Nasal Cannula Oxygen Flow Rate (L/min) 2 4 Positive well nourished and well developed General Appearance ED: well developed <Dr. Arturo Killian MD - Last Filed: 04/09/22 16:21> Physical Exam Const Vital Signs: 04/09/22 12:39 04/09/22 13:00 04/09/22 13:08 Temperature 100.8 F H Temperature Source Temporal Pulse Rate 66 60 Respiratory Rate 38 H 34 H Respiratory Effort Labored Short of Breath Respiratory Depth Shallow Respiratory Pattern Tachypnea Blood Pressure 166/89 H Blood Pressure Mean 114 Pulse Ox 93 93 Oxygen Delivery Method Nasal Cannula Nasal Cannula Nasal Cannula Oxygen Flow Rate (L/min) 2 3 2.5 04/09/22 13:39 04/09/22 13:41 04/09/22 14:54 Temperature 100.8 F H 98.7 F Temperature Source Temporal Oral Pulse Rate 60 Respiratory Rate 23 H Respiratory Effort Respiratory Depth Respiratory Pattern Blood Pressure 152/72 H Blood Pressure Mean 98 Pulse Ox 93 Oxygen Delivery Method Nasal Cannula Nasal Cannula Oxygen Flow Rate (L/min) 2.5 2 04/09/22 14:59 04/09/22 15:02 04/09/22 16:15 Temperature Temperature Source Pulse Rate 62 60 Respiratory Rate 29 H 21 H Respiratory Effort Respiratory Depth Respiratory Pattern Blood Pressure 148/72 H 133/80 H Blood Pressure Mean 97 97 Pulse Ox 88 95 97 Oxygen Delivery Method Room Air Nasal Cannula Nasal Cannula Oxygen Flow Rate (L/min) 2 4 MDM <KAROLINA Hicks - Last Filed: 04/09/22 15:52> [facility] MDM Narrative Medical decision making narrative: Patient arrives in minimal respiratory distress, patient was placed on 4 L of nasal cannula oxygen via EMS, patient is febrile here at 100.8. Sepsis work-up was completed. Patient presents with diarrhea, increased shortness of breath today. Patient did receive a septic work-up, patient's laboratory studies show a leukocytosis with a white blood count of 16.3, patient is hemoconcentrated with a hemoglobin of 16 hematocrit 51.1, patient's lactic acid was negative. Patient's chemistries were unremarkable, patient's proBNP was elevated at 431.5. Blood cultures were completed x2. Patient did receive a cath urine she is on the second antibiotic for her urinary tract infection. Patient's urinalysis was negative for any infection. Patient's chest x-ray did show finding suggestive of mild degree of CHF. Patient off oxygen is 88%. Per her son, she was confused on arrival. Patient was given Tylenol. At this time, you believe the patient is suffering from a upper respiratory tract infection, patient be admitted to the hospital. Hospitalist requested IV Zithromax, Rocephin as well as CT of the chest without contrast concerning for pneumonia. At this time, patient is stable for admission. Lab Data Attestation: I reviewed the patient's lab results. Labs: Laboratory Results - last 24 hr 04/09/22 04/09/22 04/09/22 13:18 13:18 13:18 WBC 16.3 H RBC 6.16 H Hgb 16.0 H Hct 51.1 H MCV 83.0 MCH 26.0 L MCHC 31.3 L RDW Std Deviation 43.7 RDW Coeff of Neelima 14.6 Plt Count 234 MPV 11.0 Immature Gran % (Auto) 0.600 Neut % (Auto) 89.5 H Lymph % (Auto) 4.5 L Perry % (Auto) 4.9 Eos % (Auto) 0.2 Baso % (Auto) 0.3 Absolute Neuts (auto) 14.6 H Absolute Lymphs (auto) 0.74 L Nucleated RBC % 0 PT INR Sodium 142 Potassium 4.1 Chloride 108 H Carbon Dioxide 24.0 Anion Gap 10 BUN 20 H Creatinine 0.93 Estim Creat Clear Calc 42.91 Est GFR (MDRD) Af Amer 74 Est GFR (MDRD) Non-Af 61 BUN/Creatinine Ratio 21.5 H Glucose 177 H Lactic Acid 1.6 Calcium 9.1 Total Bilirubin Direct Bilirubin AST ALT Alkaline Phosphatase Troponin I High Sens 53 B-Natriuretic Peptide Total Protein Albumin Globulin Urine Color Urine Clarity Urine pH Ur Specific [place] Urine Protein Urine Glucose (UA) Urine Ketones Urine Occult Blood Urine Nitrite Urine Bilirubin Urine Urobilinogen Ur Leukocyte Esterase Urine RBC Urine WBC Ur Squamous Epith Cells Urine Bacteria Urine Mucus 04/09/22 04/09/22 04/09/22 13:18 13:18 13:18 WBC RBC Hgb Hct MCV MCH MCHC RDW Std Deviation RDW Coeff of Neelima Plt Count MPV Immature Gran % (Auto) Neut % (Auto) Lymph % (Auto) Perry % (Auto) Eos % (Auto) Baso % (Auto) Absolute Neuts (auto) Absolute Lymphs (auto) Nucleated RBC % PT 24.9 H INR 2.3 Sodium Potassium Chloride Carbon Dioxide Anion Gap BUN Creatinine Estim Creat Clear Calc Est GFR (MDRD) Af Amer Est GFR (MDRD) Non-Af BUN/Creatinine Ratio Glucose Lactic Acid Calcium Total Bilirubin 0.60 Direct Bilirubin 0.21 AST 23 ALT 19 Alkaline Phosphatase 77 Troponin I High Sens B-Natriuretic Peptide 431.5 H Total Protein 7.0 Albumin 3.6 Globulin 3.4 Urine Color Urine Clarity Urine pH Ur Specific [place] Urine Protein Urine Glucose (UA) Urine Ketones Urine Occult Blood Urine Nitrite Urine Bilirubin Urine Urobilinogen Ur Leukocyte Esterase Urine RBC Urine WBC Ur Squamous Epith Cells Urine Bacteria Urine Mucus 04/09/22 14:41 WBC RBC Hgb Hct MCV MCH MCHC RDW Std Deviation RDW Coeff of Neelima Plt Count MPV Immature Gran % (Auto) Neut % (Auto) Lymph % (Auto) Perry % (Auto) Eos % (Auto) Baso % (Auto) Absolute Neuts (auto) Absolute Lymphs (auto) Nucleated RBC % PT INR Sodium Potassium Chloride Carbon Dioxide Anion Gap BUN Creatinine Estim Creat Clear Calc Est GFR (MDRD) Af Amer Est GFR (MDRD) Non-Af BUN/Creatinine Ratio Glucose Lactic Acid Calcium Total Bilirubin Direct Bilirubin AST ALT Alkaline Phosphatase Troponin I High Sens B-Natriuretic Peptide Total Protein Albumin Globulin Urine Color Yellow Urine Clarity Sl. Cloudy Urine pH 5.0 Ur Specific [place] 1.020 Urine Protein 100 H Urine Glucose (UA) Normal Urine Ketones 5 H Urine Occult Blood 50 H Urine Nitrite Negative Urine Bilirubin Negative Urine Urobilinogen Normal Ur Leukocyte Esterase Negative Urine RBC 0-5 SEEN Urine WBC 0 SEEN Ur Squamous Epith Cells 0-5 SEEN Urine Bacteria 0 SEEN Urine Mucus 0 SEEN Radiography Diagnostic Testing: Clinical Impression(s) from Imaging Studies Chest X-Ray 04/09/22 13:52 IMPRESSION: Findings suggestive of mild degree of CHF Electronically Signed: Bryn Capellan MD at 14:03 EDT , EKG Ventricular paced rhythm: Attestation: I personally reviewed and interpreted this EKG as follows: Comments: Ventricular paced rhythm, still atrial flutter, rate of 60 bpm QRS duration at 154 ms, no acute ST elevation, no acute infarct noted. <Dr. Arturo Killian MD - Last Filed: 04/09/22 16:21> [facility] Narrative Medical decision making narrative: I have personally performed a face to face assessment of the patient and have reviewed the JEANMARIE Note. I performed a substantive portion of the visit including all aspects of the following. My aquino findings include: History is [82-year-old female Sybil evaluated with our nurse practitioner. Patient has a history of A. fib and flutter and prior CHF. Presents with URI type symptoms for the last several days. Cough and low-grade fever. No chest pain. No hemoptysis. She is recently been on antibiotics for UTI.] Exam is [82-year-old female vital signs are stable without change is 5 with her sats in the high 80s. She has a temperature 100.8. And she has accelerated respiratory rate. H EENT exam unremarkable. Moist mucous memories. Neck nontender. Lungs rapid respirations. No rales rhonchi or wheezing. Heart regular rhythm no murmur rate about 65. Abdomen soft nontender. Moving all 4 extremities. Calves are nontender without edema.] Medical Decision Making [older female with mild respiratory distress, fever and cough consistent with URI, rule out pneumonia, rule out COVID versus cardiac etiology.] Other additions or changes: [White count returned elevated at 16.3. Elect rolytes unremarkable. Lactic acid normal at 1.6. Troponin normal. UA negative. BNP elevated at 431. Patient will be admitted by the hospitalist. Started on Rocephin and Zithromax for a URI. Hospitalist wanted a CT obtained for further evaluation of possible pneumonia even though not seen on the chest x-ray.] Lab Data Attestation: I reviewed the patient's lab results. Labs: Laboratory Results - last 24 hr 04/09/22 04/09/22 04/09/22 13:18 13:18 13:18 WBC 16.3 H RBC 6.16 H Hgb 16.0 H Hct 51.1 H MCV 83.0 MCH 26.0 L MCHC 31.3 L RDW Std Deviation 43.7 RDW Coeff of Neelima 14.6 Plt Count 234 MPV 11.0 Immature Gran % (Auto) 0.600 Neut % (Auto) 89.5 H Lymph % (Auto) 4.5 L Perry % (Auto) 4.9 Eos % (Auto) 0.2 Baso % (Auto) 0.3 Absolute Neuts (auto) 14.6 H Absolute Lymphs (auto) 0.74 L Nucleated RBC % 0 PT INR Sodium 142 Potassium 4.1 Chloride 108 H Carbon Dioxide 24.0 Anion Gap 10 BUN 20 H Creatinine 0.93 Estim Creat Clear Calc 42.91 Est GFR (MDRD) Af Amer 74 Est GFR (MDRD) Non-Af 61 BUN/Creatinine Ratio 21.5 H Glucose 177 H Lactic Acid 1.6 Calcium 9.1 Total Bilirubin Direct Bilirubin AST ALT Alkaline Phosphatase Troponin I High Sens 53 B-Natriuretic Peptide Total Protein Albumin Globulin Urine Color Urine Clarity Urine pH Ur Specific [place] Urine Protein Urine Glucose (UA) Urine Ketones Urine Occult Blood Urine Nitrite Urine Bilirubin Urine Urobilinogen Ur Leukocyte Esterase Urine RBC Urine WBC Ur Squamous Epith Cells Urine Bacteria Urine Mucus 04/09/22 04/09/22 04/09/22 13:18 13:18 13:18 WBC RBC Hgb Hct MCV MCH MCHC RDW Std Deviation RDW Coeff of Neelima Plt Count MPV Immature Gran % (Auto) Neut % (Auto) Lymph % (Auto) Perry % (Auto) Eos % (Auto) Baso % (Auto) Absolute Neuts (auto) Absolute Lymphs (auto) Nucleated RBC % PT 24.9 H INR 2.3 Sodium Potassium Chloride Carbon Dioxide Anion Gap BUN Creatinine Estim Creat Clear Calc Est GFR (MDRD) Af Amer Est GFR (MDRD) Non-Af BUN/Creatinine Ratio Glucose Lactic Acid Calcium Total Bilirubin 0.60 Direct Bilirubin 0.21 AST 23 ALT 19 Alkaline Phosphatase 77 Troponin I High Sens B-Natriuretic Peptide 431.5 H Total Protein 7.0 Albumin 3.6 Globulin 3.4 Urine Color Urine Clarity Urine pH Ur Specific [place] Urine Protein Urine Glucose (UA) Urine Ketones Urine Occult Blood Urine Nitrite Urine Bilirubin Urine Urobilinogen Ur Leukocyte Esterase Urine RBC Urine WBC Ur Squamous Epith Cells Urine Bacteria Urine Mucus 04/09/22 14:41 WBC RBC Hgb Hct MCV MCH MCHC RDW Std Deviation RDW Coeff of Neelima Plt Count MPV Immature Gran % (Auto) Neut % (Auto) Lymph % (Auto) Perry % (Auto) Eos % (Auto) Baso % (Auto) Absolute Neuts (auto) Absolute Lymphs (auto) Nucleated RBC % PT INR Sodium Potassium Chloride Carbon Dioxide Anion Gap BUN Creatinine Estim Creat Clear Calc Est GFR (MDRD) Af Amer Est GFR (MDRD) Non-Af BUN/Creatinine Ratio Glucose Lactic Acid Calcium Total Bilirubin Direct Bilirubin AST ALT Alkaline Phosphatase Troponin I High Sens B-Natriuretic Peptide Total Protein Albumin Globulin Urine Color Yellow Urine Clarity Sl. Cloudy Urine pH 5.0 Ur Specific [place] 1.020 Urine Protein 100 H Urine Glucose (UA) Normal Urine Ketones 5 H Urine Occult Blood 50 H Urine Nitrite Negative Urine Bilirubin Negative Urine Urobilinogen Normal Ur Leukocyte Esterase Negative Urine RBC 0-5 SEEN Urine WBC 0 SEEN Ur Squamous Epith Cells 0-5 SEEN Urine Bacteria 0 SEEN Urine Mucus 0 SEEN Radiography Diagnostic Testing: Clinical Impression(s) from Imaging Studies Chest X-Ray 04/09/22 13:52 IMPRESSION: Findings suggestive of mild degree of CHF Electronically Signed: Bryn Capellan MD at 14:03 EDT , Discharge Plan Dx/Rx/DC Orders Clinical Impression: Acute respiratory infection, Hypoxia, Leukocytosis, History of COPD Disposition Disposition: Acute Care Hospital [facility]
[2022-04-09] MEDS: Albuterol 2.5 MG/3 ML VIAL.NEB. INHALATION (13:08)
[2022-04-09] MEDS: Ipratropium/Albuterol Sulfate 3 ML AMPUL.NEB INHALATION (13:08)
[2022-04-09 13:34] LABS: Absolute Lymphocyte Count 0.74 X10^3/uL (0.83-4.51); Absolute Neutrophil Count 14.6 X10^3/uL (2.0-7.7); Basophil# 0.05 X10^3/uL; Basophil% 0.3 % (0-1); Eosinophil# 0.04 X10^3/uL; Eosinophils% 0.2 % (0-5); Hematocrit 51.1 % (37-47); Lymphocyte # 0.74 X10^3/ul (0.83-4.51); Lymphocyte % 4.5 % (19-41); Mean Corp Hgb Conc 31.3 g/dL (32-36); Monocyte% 4.9 % (0-10); NRBC Flagged by Analyzer 0 % (0-5); Neutrophil # 14.58 X10^3/uL (2.7-7.7); Neutrophil % 89.5 % (47-70); Platelet Count 234 K/mm3 (150-450); RBC Distribution Width CV 14.6 % (11.6-14.6); RBC Distribution Width SD 43.7 fl (35.1-43.9); Red Blood Count 6.16 M/mm3 (4.2-5.4); White Blood Count 16.3 K/mm3 (4.4-11.0)
[2022-04-09] MEDS: Acetaminophen 500 MG Tablet 1000 MG PO (13:37)
[2022-04-09 13:48] LABS: International Normalized Ratio 2.3; Prothrombin Time (Protime)PT. 24.9 SECONDS (11.7-14.9)
--- NOTE | 2022-04-09 13:52 | RAD_ITS ---
STUDY: X-RAY CHEST REASON FOR EXAM: Female, 82 years old. SOB TECHNIQUE: Single AP portable view of the chest. COMPARISON: Comparison is made with prior study dated 12/11/2021. FINDINGS: EKG electrodes are seen. Mild degree of the CHF. There is no demonstrated pleural abnormality. Sternal cerclage wires are present from a prior sternotomy. Mild cardiomegaly. There is evidence of prior mitral valve replacement. A clip is seen overlying the left atrial appendage. Normal mediastinum and niharika. Normal visualized pulmonary arteries. Normal visualized aortic arch and descending thoracic aorta. Normal visualized thoracic spine. Normal visualized ribs, clavicles, and shoulders. There is no demonstrated abnormality of the visualized soft tissue structures of the upper abdomen. RAD/Chest 1 View (Portable) IMPRESSION: Findings suggestive of mild degree of CHF Electronically Signed: Bryn Capellan MD at 14:03 EDT ,
[2022-04-09 13:57] LABS: Anion Gap 10 (5-15); BUN 20 mg/dL (7-18); BUN/Creat Ratio 21.5 RATIO (10-20); Calcium,Total 9.1 mg/dL (8.5-10.1); Chloride 108 mmol/L (98-107); Creatinine, Serum 0.93 mg/dL (0.55-1.02); EST Glomerular Filtration Rate 61 mL/min (>60); Est Glom Filt Rate - Afr Amer 74 mL/min (>60); Estimated Creatinine Clearance 42.91 ml/min; Glucose 177 mg/dL (74-106); Potassium 4.1 mmol/L (3.5-5.1); Sodium Level 142 mmol/L (136-145); Troponin-I HS 53 pg/mL (3.0-54.0)
[2022-04-09 14:16] LABS: Lactic Acid 1.6 mmol/L (0.4-1.9)
[2022-04-09 14:47] LABS: Bacteria 0 SEEN /hpf (None Seen); Mucous, Urine 0 SEEN /hpf (<or=2+); White Blood Cells 0 SEEN /hpf (0-5)
[2022-04-09 14:59] LABS: BNP,B-Type NATRIURETIC PEPTIDE 431.5 pg/mL (0-100)
[2022-04-09 15:02] LABS: Color, Urine Yellow (Yellow); Glucose, Dipstick Normal (Normal); Ketone-Dipstick 5 mg/dl (Negative); Leukocyte Esterase-Dipstick Negative /ul (Negative); Nitrite-Dipstick Negative (Negative); Occult Blood-Urine 50 /ul (Negative); Protein-Dipstick 100 mg/dl (Negative); Urine Bilirubin Dipstick Negative (Negative); Urine Clarity Sl. Cloudy (Clear); Urine Urobilinogen Normal (Normal)
[2022-04-09 15:08] LABS: Red Blood Cells-Urine 0-5 SEEN /hpf (0-5); Squamous Epithelial Cells - UA 0-5 SEEN /hpf (5-10)
--- NOTE | 2022-04-09 15:42 | CT_ITS ---
STUDY: CT Chest W/O Contrast Injection 04/09/2022 4:29 PM REASON FOR EXAM: Female, 82 years old. SOB, uti now, hx copd on oxygen at home Individualized dose optimization techniques were used for this CT. TECHNIQUE: Transaxial imaging was performed withoutIV contrast material. COMPARISON: None. FINDINGS: There are degenerative changes of the shoulders. There is no pneumothorax. There is no demonstrated pleural abnormality. There are multiple median sternotomy wires. There is a left sided pacemaker batterypack. There are calcifications of the coronary arteries. Heart is enlarged. There are scattered blebs and bullae. This can be seen in pulmonary emphysema. Left lower lobe atelectasis. Normal mediastinum. Normal hilar regions. Normal pulmonary arteries. There is atherosclerotic calcification of the aortic arch with tortuosity and elongation of the aortic arch and descending thoracic aorta. There are multi-level degenerative changes of the thoracic spine. Multiple gallstones. Stable hepatic hypodensity. Stable possible left adrenal adenoma. CT/Chest without Contrast IMPRESSION: There are no acute findings. Multiple gallstones. Stable hepatic hypodensity. Electronically Signed: Shankar Thomas MD at 16:31 EDT ,
[2022-04-09] MEDS: Ceftriaxone 1 GM/50 ML BAG IV (16:09)
--- NOTE | 2022-04-09 16:10 | PCM.HP.STD ---
Documented by User: Suze Fletcher NP, CLINICAL STAFF RN-C 04/09/22 17:04 HPI - General HPI Narrative MICHELLE JIMENEZ, is a 82 F who presents to the emergency room due to shortness of breath. Patient states this began fairly suddenly today. She reports she went to her primary care provider yesterday for urinary frequency and was placed on Bactrim. She denies dysuria or other urinary symptoms. Denies fever. She states this morning she woke up with intractable diarrhea and nausea followed by sudden onset shortness of breath. She denies significant cough however noted to cough intermittently during exam. Also noted to have low-grade fever in ER however she denies fever, chills. She states diarrhea and nausea have resolved. She states she no longer feels short of breath. She denies chest pain. She feels her symptoms are related to an adverse reaction from the Bactrim. After COVID-vaccine September 2021 she had similar symptoms and feels she had a reaction to the vaccine. Patient denies exposure to sick contacts. She denies other upper respiratory symptoms. She has a past medical history of chronic heart failure with reduced ejection fraction, hypertension, hyperlipidemia, COPD, GERD, history of bladder cancer/non-Hodgkin's lymphoma, persistent atrial fibrillation with SSS/bradycardia status post recent pacemaker placement. [facility] Medical History (Updated 04/09/22 @ 17:08 by Aaliyah Sams) Atrial fibrillation Atrial fibrillation and flutter Atrial fibrillation and flutter Atrial flutter with rapid ventricular response Bladder cancer Chronic diastolic heart failure COPD (chronic obstructive pulmonary disease) Essential hypertension Former smoker History of cardioversion (~04/25/20) History of left heart catheterization (LHC) (~11/30/17) Hyperlipidemia Hypertension Hypertension Hypertrophic obstructive cardiomyopathy (HOCM) LBBB (left bundle branch block) Long QT interval Non-Hodgkin lymphoma Nonrheumatic mitral (valve) insufficiency On home oxygen therapy Paroxysmal atrial fibrillation Paroxysmal atrial fibrillation Persistent atrial fibrillation Polyp, sigmoid colon Presence of permanent cardiac pacemaker (~12/10/21) Sick sinus syndrome Home Medications cholecalciferol (vitamin D3) 1,000 unit PO DAILY 08/06/18 [History Last Taken 04/08/22] magnesium oxide 400 mg PO DAILY tab 04/06/19 [History Last Taken 04/08/22] warfarin 1 mg tablet 2 mg PO .COMPLEX #90 tab 09/14/21 [Rx Last Taken 04/08/22] gabapentin 100 mg capsule 100 mg PO DAILY PRN 10/16/21 [History Last Taken 04/08/22] furosemide 20 mg tablet 20 mg PO DAILY PRN tab 03/17/22 [History Last Taken Unknown] potassium chloride 20 mEq tablet,extended release 20 meq PO DAILY PRN tab 03/17/22 [History Last Taken Unknown] lisinopril 20 mg PO DAILY 04/09/22 [History Last Taken 04/08/22] nitrofurantoin monohyd/m-cryst 100 mg PO BID 04/09/22 [History Last Taken 04/08/22] omeprazole 20 mg PO DAILY 04/09/22 [History Last Taken 04/08/22] Allergy/AdvReac Type Severity Reaction Status Date / Time allopurinol Allergy Rash Verified 04/09/22 12:47 tramadol AdvReac dizzy Verified 04/09/22 12:47 Family History (Updated 04/09/22 @ 16:39 by Suze Fletcher NP, CLINICAL STAFF RN-C) Father Heart disease Hypertension Mother No cardiac disease Surgical History History of bladder surgery History of mitral valve repair (~07/30/18) History of ventricular septal myectomy (~07/30/18) Social History Smoking Status: Former smoker pack-years: 58 how long ago did patient quit smokin years ago alcohol intake: never substance use type: does not use caffeine: No what type of physical activity do you participate in: walking ROS Constitutional Constitutional: Denies change in weight, chills, fatigue, fever(s) or weakness Cardiovascular Cardiovascular: Denies chest pain, edema, lightheadedness, palpitations or syncope Respiratory/Chest Respiratory/Chest: Reports cough and dyspnea; Denies productive cough or wheezing Gastrointestinal Gastrointestinal: Reports diarrhea, nausea and vomiting; Denies abdominal pain or constipation Genitourinary Genitourinary: Denies burning urination, difficulty urinating, dysuria, hematuria, urinary frequency, urinary incontinence or urinary urgency Musculoskeletal Musculoskeletal: Denies back pain, joint pain or muscle weakness Integumentary Integumentary: Denies erythema, lesions, rash or wounds Neurologic Neurologic: Denies abnormal speech, confusion, dizziness, focal weakness, numbness, paresthesias, seizure-like activity or syncope Psychiatric Psychiatric: Denies anxiety or depression Hematologic/Lymphatic Hematologic/Lymphatic: Denies anemia, easy bleeding or easy bruising Allergic/Immunologic Allergic/Immunologic: Denies hives or asthma Vital Signs Vital Signs Vital Signs: 04/09/22 12:39 04/09/22 13:00 04/09/22 13:08 Temperature 100.8 F H Temperature Source Temporal Pulse Rate 66 60 Respiratory Rate 38 H 34 H Respiratory Effort Labored Short of Breath Respiratory Depth Shallow Respiratory Pattern Tachypnea Blood Pressure 166/89 H Blood Pressure Mean 114 Pulse Ox 93 93 Oxygen Delivery Method Nasal Cannula Nasal Cannula Nasal Cannula Oxygen Flow Rate (L/min) 2 3 2.5 04/09/22 13:39 04/09/22 13:41 04/09/22 14:54 Temperature 100.8 F H 98.7 F Temperature Source Temporal Oral Pulse Rate 60 Respiratory Rate 23 H Respiratory Effort Respiratory Depth Respiratory Pattern Blood Pressure 152/72 H Blood Pressure Mean 98 Pulse Ox 93 Oxygen Delivery Method Nasal Cannula Nasal Cannula Oxygen Flow Rate (L/min) 2.5 2 04/09/22 14:59 04/09/22 15:02 Temperature Temperature Source Pulse Rate 62 Respiratory Rate 29 H Respiratory Effort Respiratory Depth Respiratory Pattern Blood Pressure 148/72 H Blood Pressure Mean 97 Pulse Ox 88 95 Oxygen Delivery Method Room Air Nasal Cannula Oxygen Flow Rate (L/min) 2 Weight Weight: 147 lb 11.355 oz Body Mass Index (BMI) 23.8 Physical Exam Const alert and oriented x3 Orientation / Consciousness: awake, oriented to person, oriented to place and oriented to time HEENT normocephalic and moist oral mucous membranes Eyes PERRL, EOMs intact bilaterally and conjunctivae normal Neck no lymphadenopathy Resp Effort and Inspection: tachypneic Auscultation: crackles bilateral base and diminished lung sounds Cardio Cardio Narrative: A.fib, paced Peripheral Pulses: pulses 2+ throughout GI normal to inspection, nondistended, normoactive bowel sounds, non-tender and non-distended Extremity normal to inspection Skin no rashes or lesions noted Lesions: no lesions Rashes: no rashes Trauma: no lacerations or abrasions Neuro CN's II-XII intact bilaterally, no focal motor deficits, no sensory deficits noted and deep tendon reflexes 2+ bilaterally Psych mental status grossly normal and affect normal Results Lab / Micro Data Result Diagrams: 04/09/22 13:18 04/09/22 13:18 Labs: Laboratory Results - last 24 hr 04/09/22 13:18: WBC 16.3 H, RBC 6.16 H, Hgb 16.0 H, Hct 51.1 H, MCV 83.0, MCH 26.0 L, MCHC 31.3 L, RDW Std Deviation 43.7, RDW Coeff of Neelima 14.6, Plt Count 234, MPV 11.0, Immature Gran % (Auto) 0.600, Neut % (Auto) 89.5 H, Lymph % (Auto) 4.5 L, [place] % (Auto) 4.9, Eos % (Auto) 0.2, Baso % (Auto) 0.3, Absolute Neuts (auto) 14.6 H, Absolute Lymphs (auto) 0.74 L, Nucleated RBC % 0 04/09/22 13:18: Sodium 142, Potassium 4.1, Chloride 108 H, Carbon Dioxide 24.0, Anion Gap 10, BUN 20 H, Creatinine 0.93, Estim Creat Clear Calc 42.91, Est GFR (MDRD) Af Amer 74, Est GFR (MDRD) Non-Af 61, BUN/Creatinine Ratio 21.5 H, Glucose 177 H, Calcium 9.1, Troponin I High Sens 53 04/09/22 13:18: Lactic Acid 1.6 04/09/22 13:18: PT 24.9 H, INR 2.3 04/09/22 13:18: B-Natriuretic Peptide 431.5 H 04/09/22 14:41: Urine Color Yellow, Urine Clarity Sl. Cloudy, Urine pH 5.0, Ur Specific [place] 1.020, Urine Protein 100 H, Urine Glucose (UA) Normal, Urine Ketones 5 H, Urine Occult Blood 50 H, Urine Nitrite Negative, Urine Bilirubin Negative, Urine Urobilinogen Normal, Ur Leukocyte Esterase Negative, Urine RBC 0-5 SEEN, Urine WBC 0 SEEN, Ur Squamous Epith Cells 0-5 SEEN, Urine Bacteria 0 SEEN, Urine Mucus 0 SEEN Micro: Microbiology 04/09/22 13:35 Nasal Secretion SARS-CoV-2 & FLU Antigen (Rapid) - Final Radiology Impression Chest X-Ray 04/09/22 13:52 IMPRESSION: Findings suggestive of mild degree of CHF Electronically Signed: Bryn Capellan MD at 14:03 EDT , Assessment & Plan Assessment/Plan (1) Hypoxia: (2) Leukocytosis: PLAN: 1. Acute on chronic hypoxic respiratory failure secondary to acute on chronic diastolic CHF- BNP 431. CXR with mild CHF. Patient documented to be hypoxic, 88% on room air. Placed on 4 L nasal cannula. Noted to be significantly tachypneic on admission. Echocardiogram October 2021 demonstrated an EF of 55%, moderate tricuspid valve insufficiency, moderate diffuse aortic valve calcification, mild pulmonic valve insufficiency, RVSP estimated to be 44 mmHg. IV Lasix 20 mg twice daily. Strict I&O. Daily weight. Continue supplement oxygen to maintain O2 at above 90%. Wean as tolerated. Patient reports she has supplemental oxygen at home however only uses it once a month. Unclear home oxygen usage. 2. Fever, leukocytosis-suspect viral etiology URI vs GI. Chest x-ray/chest CT without infiltrate. UA unremarkable. Will hold off on antibiotics at this time and continue to monitor. Patient denies cough however reports episode of diarrhea and vomiting this morning which has since resolved. She attributed GI sx to nitrofurantoin. 3. Recent suspected UTI-UA unremarkable. Discontinue nitrofurantoin. 4. Hypertension-stable, continue lisinopril. 5. Hyperlipidemia-continue statin. 6. Chronic COPD-no exacerbation, no wheezing on assessment. As needed albuterol aerosol. 7. GERD-continue PPI. 8. History of bladder cancer/non-Hodgkin's lymphoma 9. Persistent atrial fibrillation with SSS/bradycardia status post recent pacemaker placement-on anticoagulation with Coumadin. DVT prophylaxis- coumadin. This patient was seen by KAROLINA Tipton under the supervision of Dr. Austin. Time spent examining patient, reviewing data and subsequent management of care: 27 minutes Documented by User: Dr. Tirso Austin, DO 04/09/22 17:20 HPI - General General Date of Admission: 04/09/22 [facility] Medical History (Updated 04/09/22 @ 17:08 by Aaliyah Sams) Atrial fibrillation Atrial fibrillation and flutter Atrial fibrillation and flutter Atrial flutter with rapid ventricular response Bladder cancer Chronic diastolic heart failure COPD (chronic obstructive pulmonary disease) Essential hypertension Former smoker History of cardioversion (~04/25/20) History of left heart catheterization (LHC) (~11/30/17) Hyperlipidemia Hypertension Hypertension Hypertrophic obstructive cardiomyopathy (HOCM) LBBB (left bundle branch block) Long QT interval Non-Hodgkin lymphoma Nonrheumatic mitral (valve) insufficiency On home oxygen therapy Paroxysmal atrial fibrillation Paroxysmal atrial fibrillation Persistent atrial fibrillation Polyp, sigmoid colon Presence of permanent cardiac pacemaker (~12/10/21) Sick sinus syndrome Home Medications cholecalciferol (vitamin D3) 1,000 unit PO DAILY 08/06/18 [History Last Taken 04/08/22] magnesium oxide 400 mg PO DAILY tab 04/06/19 [History Last Taken 04/08/22] warfarin 1 mg tablet 2 mg PO .COMPLEX #90 tab 09/14/21 [Rx Last Taken 04/08/22] gabapentin 100 mg capsule 100 mg PO DAILY PRN 10/16/21 [History Last Taken 04/08/22] furosemide 20 mg tablet 20 mg PO DAILY PRN tab 03/17/22 [History Last Taken Unknown] potassium chloride 20 mEq tablet,extended release 20 meq PO DAILY PRN tab 03/17/22 [History Last Taken Unknown] lisinopril 20 mg PO DAILY 04/09/22 [History Last Taken 04/08/22] nitrofurantoin monohyd/m-cryst 100 mg PO BID 04/09/22 [History Last Taken 04/08/22] omeprazole 20 mg PO DAILY 04/09/22 [History Last Taken 04/08/22] Allergy/AdvReac Type Severity Reaction Status Date / Time allopurinol Allergy Rash Verified 04/09/22 12:47 tramadol AdvReac dizzy Verified 04/09/22 12:47 Family History (Updated 04/09/22 @ 16:39 by Suze Fletcher CLINICAL STAFF RN, CLINICAL STAFF RN-C) Father Heart disease Hypertension Mother No cardiac disease Surgical History History of bladder surgery History of mitral valve repair (~07/30/18) History of ventricular septal myectomy (~07/30/18) Social History Smoking Status: Former smoker pack-years: 58 how long ago did patient quit smokin years ago alcohol intake: never substance use type: does not use caffeine: No what type of physical activity do you participate in: walking Results Lab / Micro Data Result Diagrams: 04/09/22 13:18 04/09/22 13:18 Charges/Coding Addendum Addendum: Patient was seen and examined today independently of Suze Fletcher, she came to the emergency room today at [facility] with complaints of increased shortness of breath today. Patient states that she does have oxygen at home which she uses occasionally. She does not use it on a daily basis according to her. Patient denies any fevers, chills, or sputum production. Patient denies any cough. On examination she appeared in good health and spirits, she does not appear to be in any distress. Vital signs as documented. Skin warm and dry and without overt rashes. Neck without JVD, thyroid appears normal, trachea is midline, neck is supple. Lungs-inspiratory rales were noted over the lower lung [place] bilaterally, normal air movement was noted. Heart exam notable for regular rhythm-paced, normal sounds and absence of murmurs, rubs or gallops. Abdomen unremarkable and without evidence of organomegaly, masses, or abdominal aortic enlargement, bowel sounds are present in all 4 quadrants, no abdominal tenderness was noted. Extremities nonedematous, no cyanosis was noted, no clubbing was noted. Neuro: Cranial nerves II through XII are grossly intact, no focal motor deficits were noted, sensation to light touch and pinprick is intact, motor exam 5/5 throughout. Psych: Patient is alert and oriented x3, she does not appear anxious or depressed, she does not appear agitated. Imaging studies obtained in the emergency room included a chest x-ray which indicated the presence of mild CHF, I requested that a CT of the chest be performed without contrast-this chest CT did not picker packer any acute abnormalities, there was noted to be evidence of COPD with bleb formation. Patient's white blood cell count was elevated at 16.3, patient was febrile at 100.8, patient's pulse ox on room air was 88%. Patient's beta natruretic peptide was elevated, INR was 2.3, and glucose was 177. It appears that the etiology of the patient's hypoxia could be acute on chronic diastolic CHF, coincidentally, she may also have a viral URI/gastroenteritis-patient stated that she had some episodes of diarrhea today at home. Impression: #1 acute on chronic diastolic CHF-patient will be admitted, she will be given IV Lasix, pulse ox will be monitored. I do not feel the patient needs an echocardiogram repeated at this time. #2 hypoxia-secondary to #1, pulse ox will be monitored, supplemental oxygen will be used as needed #3 chronic atrial fibrillation with paced rhythm-patient's INR is therapeutic at this time, her rate is 60 #4 essential hypertension-patient will remain on her current medications #5 leukocytosis-etiology unclear, possibly secondary to viral etiology, CBC will be rechecked tomorrow, I have elected not to place the patient on antibiotics at this time #6 chronic anticoagulation-secondary to chronic atrial fibrillation, patient is on warfarin I have reviewed Suze Fletcher's history and physical including her medical assessment and plan of care with the above additions endorse it. Total clinical time spent by myself addressing problems, reviewing data, and collaborating with patient's care team: 45 minutes Visit Charges Inpatient E&M: 31174 Init Hosp L3
[2022-04-09 16:14] LABS: AST(SGOT) 23 U/L (15-37); Alanine Aminotransfer ALT/SGPT 19 U/L (13-56); Albumin, Serum 3.6 g/dL (3.2-5.0); Alkaline Phosphatase 77 U/L (45-117); Bilirubin, Direct 0.21 mg/dL (0.00-0.30); Globulin 3.4 g/dL (2.2-4.2)
[2022-04-09] MEDS: 0.9% Saline Lock 10 ML Syringe IV (18:20)
[2022-04-09] MEDS: Furosemide 20 MG/2 ML VIAL IV (18:20)
[2022-04-09] MEDS: Lisinopril 20 MG Tablet PO (20:01)
[2022-04-09] MEDS: Acetaminophen 325 MG Tablet 650 MG PO (23:59)
[2022-04-10] VITALS (10 sets, daily range): BP systolic 103–136; BP diastolic 62–79; PULSE 64–91; RESP 14–20; TEMP 36.4–36.8; O2SAT 91–98
[2022-04-10] MEDS: DiphenhydrAMINE 25 MG Capsule PO
[2022-04-10 06:42] LABS: Absolute Lymphocyte Count 1.24 X10^3/uL (0.83-4.51); Absolute Neutrophil Count 10.7 X10^3/uL (2.0-7.7); Basophil# 0.03 X10^3/uL; Basophil% 0.2 % (0-1); Eosinophils% 3.1 % (0-5); Hematocrit 46.7 % (37-47); Hemoglobin 14.6 g/dL (12.0-15.0); Lymphocyte # 1.24 X10^3/ul (0.83-4.51); Lymphocyte % 9.5 % (19-41); Mean Corp Hgb Conc 31.3 g/dL (32-36); Mean Corpuscular Hgb 25.9 pg (27.0-32.0); Mean Corpuscular Volume 82.8 fL (81-99); Mean Platelet Vol. 10.7 fl (6.2-12.0); Monocyte# 0.66 X10^3/uL; Monocyte% 5.1 % (0-10); NRBC Flagged by Analyzer 0 % (0-5); Neutrophil # 10.66 X10^3/uL (2.7-7.7); Neutrophil % 81.7 % (47-70); Platelet Count 203 K/mm3 (150-450); RBC Distribution Width CV 14.7 % (11.6-14.6); Red Blood Count 5.64 M/mm3 (4.2-5.4)
[2022-04-10 07:04] LABS: International Normalized Ratio 2.9; Prothrombin Time (Protime)PT. 30.4 SECONDS (11.7-14.9)
[2022-04-10 07:05] LABS: Anion Gap 5 (5-15); BUN 15 mg/dL (7-18); BUN/Creat Ratio 17.1 RATIO (10-20); Calcium,Total 8.4 mg/dL (8.5-10.1); Chloride 105 mmol/L (98-107); Creatinine, Serum 0.88 mg/dL (0.55-1.02); EST Glomerular Filtration Rate 66 mL/min (>60); Est Glom Filt Rate - Afr Amer 79 mL/min (>60); Estimated Creatinine Clearance 45.35 ml/min; Glucose 96 mg/dL (74-106); Potassium 3.7 mmol/L (3.5-5.1); Sodium Level 139 mmol/L (136-145)
[2022-04-10] MEDS: Pantoprazole Sodium 20 MG Tablet PO (09:29)
[2022-04-10] MEDS: 0.9% Saline Lock 10 ML Syringe IV (09:30)
[2022-04-10] MEDS: Furosemide 20 MG/2 ML VIAL IV (09:30)
--- NOTE | 2022-04-10 11:01 | PCM.PN.HOSP ---
Documented by User: Viraj VARGAS 04/10/22 11:29 Subjective Subjective Patient is an 82-year-old female comfortably resting in bed, alert and orient x3. Patient reports that her shortness of breath for admission has resolved and she is currently on room air. Does not appear in acute distress. Objective Data Objective Data Vital Signs: Vital Signs Temp Pulse Resp BP Pulse Ox 98.3 F 68 20 H 103/69 94 04/10/22 09:25 04/10/22 09:25 04/10/22 09:25 04/10/22 09:25 04/10/22 09:29 Oxygen Flow Rate (L/min) 2 Oxygen Delivery Method Room Air Weight: 142 lb 13.753 oz Body Mass Index (BMI) 23.2 Intake & Output: Intake and Output for Last 24 Hours 04/08/22 04/09/22 04/10/22 23:59 23:59 23:59 Intake Total 805 / 1165 600 / 600 Output Total 750 / 750 Balance 805 / 565 -150 / -150 Lab / Micro Data Result Diagrams: 04/10/22 06:05 04/10/22 06:05 Labs: Laboratory Results - last 24 hr 04/09/22 13:18: WBC 16.3 H, RBC 6.16 H, Hgb 16.0 H, Hct 51.1 H, MCV 83.0, MCH 26.0 L, MCHC 31.3 L, RDW Std Deviation 43.7, RDW Coeff of Neelima 14.6, Plt Count 234, MPV 11.0, Immature Gran % (Auto) 0.600, Neut % (Auto) 89.5 H, Lymph % (Auto) 4.5 L, [place] % (Auto) 4.9, Eos % (Auto) 0.2, Baso % (Auto) 0.3, Absolute Neuts (auto) 14.6 H, Absolute Lymphs (auto) 0.74 L, Nucleated RBC % 0 04/09/22 13:18: Sodium 142, Potassium 4.1, Chloride 108 H, Carbon Dioxide 24.0, Anion Gap 10, BUN 20 H, Creatinine 0.93, Estim Creat Clear Calc 42.91, Est GFR (MDRD) Af Amer 74, Est GFR (MDRD) Non-Af 61, BUN/Creatinine Ratio 21.5 H, Glucose 177 H, Calcium 9.1, Troponin I High Sens 53 04/09/22 13:18: Lactic Acid 1.6 04/09/22 13:18: PT 24.9 H, INR 2.3 04/09/22 13:18: B-Natriuretic Peptide 431.5 H 04/09/22 13:18: Total Bilirubin 0.60, Direct Bilirubin 0.21, AST 23, ALT 19, Alkaline Phosphatase 77, Total Protein 7.0, Albumin 3.6, Globulin 3.4 04/09/22 14:41: Urine Color Yellow, Urine Clarity Sl. Cloudy, Urine pH 5.0, Ur Specific [place] 1.020, Urine Protein 100 H, Urine Glucose (UA) Normal, Urine Ketones 5 H, Urine Occult Blood 50 H, Urine Nitrite Negative, Urine Bilirubin Negative, Urine Urobilinogen Normal, Ur Leukocyte Esterase Negative, Urine RBC 0-5 SEEN, Urine WBC 0 SEEN, Ur Squamous Epith Cells 0-5 SEEN, Urine Bacteria 0 SEEN, Urine Mucus 0 SEEN 04/10/22 06:05: WBC 13.0 H, RBC 5.64 H, Hgb 14.6, Hct 46.7, MCV 82.8, MCH 25.9 L, MCHC 31.3 L, RDW Std Deviation 44.0 H, RDW Coeff of Neelima 14.7 H, Plt Count 203, MPV 10.7, Immature Gran % (Auto) 0.400, Neut % (Auto) 81.7 H, Lymph % (Auto) 9.5 L, [place] % (Auto) 5.1, Eos % (Auto) 3.1, Baso % (Auto) 0.2, Absolute Neuts (auto) 10.7 H, Absolute Lymphs (auto) 1.24, Nucleated RBC % 0 04/10/22 06:05: PT 30.4 H, INR 2.9 04/10/22 06:05: Sodium 139, Potassium 3.7, Chloride 105, Carbon Dioxide 29.0, Anion Gap 5, BUN 15, Creatinine 0.88, Estim Creat Clear Calc 45.35, Est GFR (MDRD) Af Amer 79, Est GFR (MDRD) Non-Af 66, BUN/Creatinine Ratio 17.1, Glucose 96, Calcium 8.4 L Micro: Microbiology 04/09/22 19:25 Mucosa - Nasopharyngeal Respiratory Panel (PCR) - Final 04/09/22 13:35 Nasal Secretion SARS-CoV-2 & FLU Antigen (Rapid) - Final Radiography Diagnostic Testing: Radiology Impression Chest X-Ray 04/09/22 13:52 IMPRESSION: Findings suggestive of mild degree of CHF Electronically Signed: Bryn Capellan MD at 14:03 EDT , Chest CT 04/09/22 15:42 IMPRESSION: There are no acute findings. Multiple gallstones. Stable hepatic hypodensity. Electronically Signed: Shankar Thomas MD at 16:31 EDT , Physical Exam Const alert, oriented x3 and no apparent distress HEENT head/scalp atraumatic and moist oral mucous membranes Head and Scalp: normocephalic Eyes PERRL, EOMs intact bilaterally and conjunctivae normal Neck no lymphadenopathy, supple and no JVD Resp normal respiratory effort, no retractions and no use of accessory muscles Cardio regular rate, regular rhythm and no JVD GI normal to inspection, nondistended, normoactive bowel sounds and soft to palpation Extremity normal to inspection, full ROM and no clubbing, cyanosis or edema Skin no rashes or lesions noted, no wounds and skin turgor normal Neuro CN's II-XII intact bilaterally Psych affect normal Assessment & Plan Assessment/Plan (1) Acute respiratory failure with hypoxia: (2) Leukocytosis: PLAN: Day 1 Discharge planning: Current plan is for patient to discharge home when medically ready. 1) acute on chronic hypoxic respiratory failure secondary to diastolic CHF Chest x-ray on admission revealed mild cardiomegaly with pulmonary vascular congestion. Admission BNP 431. Echocardiogram from 10/2021 demonstrated an EF of 55%, moderate tricuspid insufficiency, moderate diffuse aortic valve calcification, mild pulmonic valve insufficiency, RVSP estimated to be 44 mmHg. No mention of diastolic dysfunction. Patient does have home oxygen but reports intermittent use. Patient currently satting 95% on room air. Continue IV Lasix, continue lisinopril. 2) leukocytosis WBC still elevated at 13,000, unclear etiology. Viral respiratory panel, rapid flu/COVID are negative. Blood cultures pending. Patient denies any additional respiratory symptoms or nonspecific viral symptoms. We will continue to monitor. 3) HTN Continue lisinopril. 4) hyperlipidemia Continue statin. 5) chronic COPD Does not appear to be in acute exacerbation as there is no wheezing on exam, hypoxia has resolved. Continue as needed albuterol. 6) GERD Continue PPI. 7) persistent atrial fibrillation with sick sinus syndrome Status post pacemaker, on Coumadin for anticoagulation. DVT prophylaxis - Coumadin. Patient seen by Viraj Dawson PA-C, under the supervision of Dr. Strickland. Time spent on patient care: 10 minutes Documented by User: Dr. Jamie Strickland MD 04/10/22 14:48 Objective Data Lab / Micro Data Result Diagrams: 04/10/22 06:05 04/10/22 06:05
--- NOTE | 2022-04-10 13:00 | CASEMGMT ---
RN MICHELLE Face to Face with patient for initial transition planning/care coordination assessment. RN CM introduced self and role at [facility]. Patient lying in bed, alert and oriented, daughter at bedside.Patient willing to participate in assessment and is able to answer all questions appropriately. Care providers, pharmacy, and demographics verified. Patient wishes to discharge home, denies need for home health at this time. Patient states she has no further needs or concerns at this time. CM to follow for discharge planning needs that may arise. PCP: [facility] Specialists: Baldo producer; DICK Knowles watch crystal molder Preferred Pharmacy: [facility] Insurance: [employer] Prescription Benefit: yes Living Will/HPOA: yes, patient believes it is her son or daughter LNOK: daughters, son Living Arrangements: Patient lives alone in a single story home with 2 steps and railing to enter the home. Patient states she is independent at home. Transportation: self, friends, daughter DME/HHC: patient states she has shower chair, cane, walker, grab bars, pulse ox, home oxygen through [employer]. Patient states she has previously been to TCU. No previous HHC Disposition Plan: Patient to discharge home with family support and follow-up plans in place. Alexa GOLDSTEIN, RN, CM
--- NOTE | 2022-04-10 13:55 | PCM.DC ---
Discharge Instructions Diet Discharge Diet: No restrictions Activity Discharge Activity: Return to Normal Activity Weight Bearing Status: Weight bearing as tolerated Dressing / Incision Call your doctor if you observe: Fever of 101 or Higher, Numbness or Tingling, Shortness of breath, Dizziness, Chest pain, Increased palpitations (irregular heartbeat) and Calf discomfort Follow Up Care Please Follow Up With: Primary care provider When: Within the next two weeks. Test Results: Test results from this visit will be discussed in further detail at your follow-up appointment, if applicable. Discharge Plan Admission Admit Date/Time: 04/09/22 17:00 Primary Reason for Your Visit: Shortness of breath Attending Provider: Jamie Strickland Primary Care Provider: Cheyanne Holt Consulting Providers: Tirso Austin Additional Instructions / Restrictions: * You are being discharged on Lasix 40mg daily for one week. * Follow up with your family doctor about how they would like to proceed with this prescription. * Hold 20mg Lasix dose until you can follow up with your primary care provider. Discharge Orders/Prescriptions Prescriptions: New furosemide [Lasix] 40 mg tablet 40 mg PO DAILY Qty: 7 RF: 0 Continued magnesium oxide 400 mg magnesium tablet 400 mg PO DAILY RF: 0 potassium chloride 20 mEq tablet extended release 20 meq PO DAILY PRN (Reason: supplement- with lasix) RF: 0 gabapentin 100 mg capsule 100 mg PO DAILY PRN (Reason: Pain) RF: 0 cholecalciferol (vitamin D3) 1,000 UNIT capsule 1,000 unit PO DAILY RF: 0 omeprazole 20 mg capsule,delayed release(DR/EC) 20 mg PO DAILY RF: 0 nitrofurantoin monohyd/m-cryst 100 mg capsule 100 mg PO BID RF: 0 lisinopril 20 mg tablet 20 mg PO DAILY RF: 0 warfarin 1 mg tablet 2 mg PO .COMPLEX Qty: 90 RF: 3 Hold Instructions: Resume on 12/18/21. Held furosemide 20 mg tablet 20 mg PO DAILY PRN (Reason: diuretic) RF: 0 Hold Instructions: Hold while taking 40mg dose. Follow up with your primary care provider about whether they want you to resume this dose. Referrals / Follow Up: Cheyanne Holt MD [Primary Care Provider] - Within 1 Week Disposition Disposition (needs filled in before D/C Order can be placed): Home, Self Care
--- NOTE | 2022-04-10 14:13 | DS.PCM_ITS ---
Documented by User: Viraj VARGAS 04/10/22 14:24 Providers Date of Admission: 04/09/22 Primary Care Physician: Dr. Cheyanne Holt MD Reason For Visit: UTI, HYPOXIA, LEUKOCYTES Diagnosis Discharge Diagnosis (1) Acute respiratory failure with hypoxia: Status: Chronic Code(s): J96.01 - Acute respiratory failure with hypoxia (2) Leukocytosis: Status: Acute Code(s): D72.829 - Elevated white blood cell count, unspecified Medications at Discharge Home Medications cholecalciferol (vitamin D3) 1,000 unit PO DAILY 08/06/18 magnesium oxide 400 mg PO DAILY tab 04/06/19 warfarin 1 mg tablet 2 mg PO .COMPLEX #90 tab 09/14/21 gabapentin 100 mg capsule 100 mg PO DAILY PRN 10/16/21 furosemide 20 mg tablet 20 mg PO DAILY PRN tab 03/17/22 potassium chloride 20 mEq tablet,extended release 20 meq PO DAILY PRN tab 03/17/22 lisinopril 20 mg PO DAILY 04/09/22 omeprazole 20 mg PO DAILY 04/09/22 furosemide [Lasix] 40 mg PO DAILY #7 tab 04/10/22 Hospital Course Summary of Care Provided Minutes Spent on Discharge: 20 Hospital Course: Patient is an 82-year-old female who was admitted to [facility] on 04/09/2022 for evaluation and management of shortness of breath. Patient's shortness of breath was believed to be caused by acute on chronic diastolic CHF exacerbation. Chest x-ray did have mild cardiomegaly and BNP was elevated at 431. Patient was managed on IV Lasix while admitted and shortness of breath quickly improved. On day of discharge patient was satting 100% on room air and did not appear fluid overloaded on evaluation. Patient did have an elevated white count on admission, on day of discharge white count did improve to 13,000. Unclear etiology as to patient's leukocytosis, viral etiologies, to include COVID, were ruled out. On discharge, patient's home Lasix prescription was adjusted and patient was sent home on 40 mg daily for 1 week. Patient is to follow-up with her primary care provider in regards to further adjustment of her home Lasix dose and appropriate outpatient lab work. Patient's nitrofurantoin was also discontinued on discharge as patient's UA was unremarkable on admission and patient did not have any urinary complaints. Patient seen by Viraj Dawson PA-C, under the supervision of Dr. Strickland. Time spent on patient care: 20 minutes. Physical Exam Narrative Patient is a 82-year-old female comfortably resting in bed, alert and orient x3. Patient reports that her shortness of breath resolved admission, no longer requiring O2. Does not appear in acute distress. Does not appear fluid overloaded. Const alert, oriented x3 and no apparent distress HEENT normocephalic, head/scalp atraumatic and hearing grossly normal bilaterally Eyes PERRL, EOMs intact bilaterally and conjunctivae normal Neck no lymphadenopathy, supple and no JVD Resp normal respiratory effort, no retractions and no use of accessory muscles Cardio regular rate, regular rhythm and no JVD GI normal to inspection, nondistended, normoactive bowel sounds and soft to palpation Extremity normal to inspection, full ROM and no clubbing, cyanosis or edema Skin no rashes or lesions noted, no wounds and skin turgor normal Neuro CN's II-XII intact bilaterally Psych affect normal Weight / BMI Weight Weight: 142 lb 13.753 oz Body Mass Index (BMI) 23.2 ABG / Lab / Microbiology Data Result Diagrams: 04/10/22 06:05 04/10/22 06:05 Laboratory: Laboratory Results - last 24 hr 04/09/22 13:18: Lactic Acid 1.6 04/09/22 13:18: B-Natriuretic Peptide 431.5 H 04/09/22 13:18: Total Bilirubin 0.60, Direct Bilirubin 0.21, AST 23, ALT 19, Alkaline Phosphatase 77, Total Protein 7.0, Albumin 3.6, Globulin 3.4 04/09/22 14:41: Urine Color Yellow, Urine Clarity Sl. Cloudy, Urine pH 5.0, Ur Specific [place] 1.020, Urine Protein 100 H, Urine Glucose (UA) Normal, Urine Ketones 5 H, Urine Occult Blood 50 H, Urine Nitrite Negative, Urine Bilirubin Negative, Urine Urobilinogen Normal, Ur Leukocyte Esterase Negative, Urine RBC 0-5 SEEN, Urine WBC 0 SEEN, Ur Squamous Epith Cells 0-5 SEEN, Urine Bacteria 0 SEEN, Urine Mucus 0 SEEN 04/10/22 06:05: WBC 13.0 H, RBC 5.64 H, Hgb 14.6, Hct 46.7, MCV 82.8, MCH 25.9 L , MCHC 31.3 L, RDW Std Deviation 44.0 H, RDW Coeff of Neelima 14.7 H, Plt Count 203, MPV 10.7, Immature Gran % (Auto) 0.400, Neut % (Auto) 81.7 H, Lymph % (Auto) 9.5 L, Davidson % (Auto) 5.1, Eos % (Auto) 3.1, Baso % (Auto) 0.2, Absolute Neuts (auto) 10.7 H, Absolute Lymphs (auto) 1.24, Nucleated RBC % 0 04/10/22 06:05: PT 30.4 H, INR 2.9 04/10/22 06:05: Sodium 139, Potassium 3.7, Chloride 105, Carbon Dioxide 29.0, Anion Gap 5, BUN 15, Creatinine 0.88, Estim Creat Clear Calc 45.35, Est GFR (MDRD) Af Amer 79, Est GFR (MDRD) Non-Af 66, BUN/Creatinine Ratio 17.1, Glucose 96, Calcium 8.4 L Microbiology: Microbiology 04/09/22 19:25 Mucosa - Nasopharyngeal Respiratory Panel (PCR) - Final 04/09/22 13:35 Nasal Secretion SARS-CoV-2 & FLU Antigen (Rapid) - Final Radiography Diagnostic Testing: Radiology Impression Chest CT 04/09/22 15:42 IMPRESSION: There are no acute findings. Multiple gallstones. Stable hepatic hypodensity. Electronically Signed: Shankar Thomas MD at 16:31 EDT Reading Location ID and State: [facility] / [place] , Service support , D/C Instructions Discharge Diet: No restrictions Weight Bearing Status: Weight bearing as tolerated Call your doctor if you observe: Fever of 101 or Higher, Numbness or Tingling, Shortness of breath, Dizziness, Chest pain, Increased palpitations (irregular heartbeat) and Calf discomfort Please Follow Up With: Primary care provider When: Within the next two weeks. Meaningful Use Info Meaningful Use Diagnoses (Choose all that apply): None applicable Discharge Plan Admission Admit Date/Time: 04/09/22 17:00 Primary Reason for Your Visit: Shortness of breath Attending Provider: Jamie Strickland Primary Care Provider: Cheyanne Holt Consulting Providers: Triso Austin Instructions Additional Instructions / Restrictions: * You are being discharged on Lasix 40mg daily for one week. * Follow up with your family doctor about how they would like to proceed with t his prescription. * Hold 20mg Lasix dose until you can follow up with your primary care provider. * Follow up with your primary care provider about outpatients, specifically a basic metabolic profile (BMP). Discharge Orders/Prescriptions Prescriptions: New furosemide [Lasix] 40 mg tablet 40 mg PO DAILY Qty: 7 RF: 0 Continued magnesium oxide 400 mg magnesium tablet 400 mg PO DAILY RF: 0 potassium chloride 20 mEq tablet extended release 20 meq PO DAILY PRN (Reason: supplement- with lasix) RF: 0 gabapentin 100 mg capsule 100 mg PO DAILY PRN (Reason: Pain) RF: 0 cholecalciferol (vitamin D3) 1,000 UNIT capsule 1,000 unit PO DAILY RF: 0 omeprazole 20 mg capsule,delayed release(DR/EC) 20 mg PO DAILY RF: 0 lisinopril 20 mg tablet 20 mg PO DAILY RF: 0 warfarin 1 mg tablet 2 mg PO .COMPLEX Qty: 90 RF: 3 Hold Instructions: Having pacemaker implant Held furosemide 20 mg tablet 20 mg PO DAILY PRN (Reason: diuretic) RF: 0 Hold Instructions: Hold while taking 40mg dose. Follow up with your primary care provider about whether they want you to resume this dose. Discontinued nitrofurantoin monohyd/m-cryst 100 mg capsule 100 mg PO BID RF: 0 Referrals / Follow Up: Cheyanne Holt MD [Primary Care Provider] - Within 1 Week Disposition Disposition (needs filled in before D/C Order can be placed): Home, Self Care Documented by User: Dr. Jamie Strickland MD 04/10/22 14:59 Providers Date of Admission: 04/09/22 Reason For Visit: UTI, HYPOXIA, LEUKOCYTES Medications at Discharge Home Medications cholecalciferol (vitamin D3) 1,000 unit PO DAILY 08/06/18 magnesium oxide 400 mg PO DAILY tab 04/06/19 warfarin 1 mg tablet 2 mg PO .COMPLEX #90 tab 09/14/21 gabapentin 100 mg capsule 100 mg PO DAILY PRN 10/16/21 furosemide 20 mg tablet 20 mg PO DAILY PRN tab 03/17/22 potassium chloride 20 mEq tablet,extended release 20 meq PO DAILY PRN tab 03/17/22 lisinopril 20 mg PO DAILY 04/09/22 omeprazole 20 mg PO DAILY 04/09/22 furosemide [Lasix] 40 mg PO DAILY #7 tab 04/10/22 ABG / Lab / Microbiology Data Result Diagrams: 04/10/22 06:05 04/10/22 06:05 Discharge Plan Admission Admit Date/Time: 04/09/22 17:00 Primary Reason for Your Visit: Shortness of breath Attending Provider: Jamie Strickland Primary Care Provider: Cheyanne Holt Consulting Providers: Tirso Austin Additional Instructions / Restrictions: * You are being discharged on Lasix 40mg daily for one week. * Follow up with your family doctor about how they would like to proceed with this prescription. * Hold 20mg Lasix dose until you can follow up with your primary care provider. * Follow up with your primary care provider about outpatients, specifically a basic metabolic profile (BMP). Discharge Orders/Prescriptions Prescriptions: New furosemide [Lasix] 40 mg tablet 40 mg PO DAILY Qty: 7 RF: 0 Continued magnesium oxide 400 mg magnesium tablet 400 mg PO DAILY RF: 0 potassium chloride 20 mEq tablet extended release 20 meq PO DAILY PRN (Reason: supplement- with lasix) RF: 0 gabapentin 100 mg capsule 100 mg PO DAILY PRN (Reason: Pain) RF: 0 cholecalciferol (vitamin D3) 1,000 UNIT capsule 1,000 unit PO DAILY RF: 0 omeprazole 20 mg capsule,delayed release(DR/EC) 20 mg PO DAILY RF: 0 lisinopril 20 mg tablet 20 mg PO DAILY RF: 0 warfarin 1 mg tablet 2 mg PO .COMPLEX Qty: 90 RF: 3 Hold Instructions: Having pacemaker implant Held furosemide 20 mg tablet 20 mg PO DAILY PRN (Reason: diuretic) RF: 0 Hold Instructions: Hold while taking 40mg dose. Follow up with your primary care provider about whether they want you to resume this dose. Discontinued nitrofurantoin monohyd/m-cryst 100 mg capsule 100 mg PO BID RF: 0 Referrals / Follow Up: Cheyanne Holt MD [Primary Care Provider] - Within 1 Week Disposition Disposition (needs filled in before D/C Order can be placed): Home, Self Care Charges/Coding Addendum Addendum: Dr. Strickland: I personally reviewed the chart and examined the patient, and agree with the above findings. 82-year-old female presents to the hospital with nausea, vomiting, diarrhea, shortness of breath. BNP on admission was elevated to 431 and she does have a history of diastolic dysfunction as well as pulmonary hypertension. She was started on IV Lasix for acute on chronic diastolic dysfunction as well as her pulmonary hypertension and she improved remarkably quickly, this morning she was taken off of oxygen and was maintaining her oxygen saturations at around 100% and also did not require any oxygen with ambulation. She states that her diarrhea is completely resolved and thinks that it was due to the Macrobid she was given for her UTI as an outpatient. UA here was unremarkable and did not demonstrate any bacteria in her urine so she was not provided any antibiotics during her stay here. I discussed with her the possibility for discharge today and she expressed understanding of the risk and benefits of going home and she wants to go home. I did say that with is possible to stay 1 more night to continue diuresis but she would prefer to go home. In light of this I recommend that she take 40 mg of p.o. Lasix for a week and follow-up with her PCP as an outpatient and then go back down to her 20 mg of Lasix with outpatient follow-up. Clinical time spent in all aspects of patient care: 30 minutes Visit Charges Inpatient E&M: [id number] Disch Hosp
== END 2022-04-10 14:55 | disposition home or self-care (01) | DRG 291 ==
LOC: ED 15:49 → MS3 16:59 → PCU 04-10 07:05
PROVIDERS: Nurse Practitioner; Nurse Practitioner Family; Admitting Provider Internal Medicine; Emergency Provider Emergency Medicine; PCP Internal Medicine; Visit Provider Family Medicine
DX: I11.0 Hypertensive heart disease with heart failure (principal); J44.9 Chronic obstructive pulmonary disease, unspecified; I50.33 Acute on chronic diastolic (congestive) heart failure; I27.20 Pulmonary hypertension, unspecified; I42.1 Obstructive hypertrophic cardiomyopathy; J96.21 Acute and chronic respiratory failure with hypoxia; I48.20 Chronic atrial fibrillation, unspecified; I49.5 Sick sinus syndrome; I48.0 Paroxysmal atrial fibrillation; K21.9 Gastro-esophageal reflux disease without esophagitis; E78.5 Hyperlipidemia, unspecified; K52.9 Noninfective gastroenteritis and colitis, unspecified; Z20.822 Contact with and (suspected) exposure to COVID-19; Z79.01 Long term (current) use of 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; Z99.81 Dependence on supplemental oxygen; Z85.51 Personal history of malignant neoplasm of bladder; Z85.72 Personal history of non-Hodgkin lymphomas; Z87.891 Personal history of nicotine dependence; Z95.0 Presence of cardiac pacemaker
CPT/HCPCS: 36415; 71045; 71250; 80048; 80076; 81001; 83605; 83880; 84484; 85025; 85610; 87040; 87428; 87633; 93005; 94640; 96361; 96365; 96366; 96367; 96375; 96376; 97162; 97166; 99218; 99251; 99285; J7040; P9612; A4216; G0378; G0463; J1940

== ENCOUNTER 2022-04-29 11:12 | Outpatient (RCR) | payer MEDICARE, SELFPAY ==
[2022-04-01 21:18] VITALS: BMI 23.5
[2022-04-29 11:26] LABS: INR Fingerstick 2.5; Prothrombin Time Fingerstick 28.5 SEC (11.7-14.9)
== END 2022-04-29 23:59 | disposition home or self-care (01) ==
LOC: LAB 11:12
PROVIDERS: Family Provider Internal Medicine; PCP Internal Medicine; Referring Provider Internal Medicine Cardiovascular Disease; Visit Provider Internal Medicine Cardiovascular Disease
DX: I48.19 Other persistent atrial fibrillation; I48.92 Unspecified atrial flutter; Z79.899 Other long term (current) drug therapy
CPT/HCPCS: 36416; 85610

== ENCOUNTER 2022-05-20 12:49 | Outpatient (RCR) | payer MEDICARE, SELFPAY ==
[2022-05-02 07:41] VITALS: BMI 23.5
[2022-05-20 13:05] LABS: INR Fingerstick 2.6; Prothrombin Time Fingerstick 29.8 SEC (11.7-14.9)
== END 2022-06-01 02:57 | disposition home or self-care (01) ==
LOC: LAB 12:49
PROVIDERS: Family Provider Internal Medicine; PCP Internal Medicine; Referring Provider Internal Medicine Cardiovascular Disease; Visit Provider Internal Medicine Cardiovascular Disease
DX: I48.92 Unspecified atrial flutter; Z79.899 Other long term (current) drug therapy; I48.19 Other persistent atrial fibrillation
CPT/HCPCS: 36416; 85610

== ENCOUNTER 2022-06-24 12:58 | Outpatient (RCR) | payer MEDICARE, SELFPAY ==
[2022-06-01 02:58] VITALS: BMI 23.5
[2022-06-12 15:51] LABS: INR Fingerstick 3.7; Prothrombin Time Fingerstick 41.9 SEC (11.7-14.9)
[2022-06-24 13:10] LABS: INR Fingerstick 2.5; Prothrombin Time Fingerstick 29.3 SEC (11.7-14.9)
== END 2022-06-24 18:00 | disposition home or self-care (01) ==
LOC: LAB 12:58
PROVIDERS: Family Provider Internal Medicine; PCP Internal Medicine; Referring Provider Internal Medicine Cardiovascular Disease; Visit Provider Internal Medicine Cardiovascular Disease
DX: I48.92 Unspecified atrial flutter; Z79.899 Other long term (current) drug therapy; I48.19 Other persistent atrial fibrillation
CPT/HCPCS: 36415; 36416; 85610

== ENCOUNTER 2022-07-05 18:18 | Emergency (ER) | payer MEDICARE, SELFPAY ==
[2022-07-05 18:20] VITALS: BP 162/86; PULSE 82; RESP 15; TEMP 36.2; O2SAT 98; BMI 22.6
--- NOTE | 2022-07-05 18:31 | EKG12_ITS ---
Test Reason : REPEAT EKG Blood Pressure : / mmHG Vent. Rate : 099 BPM Atrial Rate : 322 BPM P-R Int : 000 ms QRS Dur : 130 ms QT Int : 372 ms P-R-T Axes : 000 -29 143 degrees QTc Int : 477 ms Atrial flutter with variable A-V block Left bundle branch block Abnormal ECG Confirmed by EMIGDIO FORTUNE, BOBBI ([id number]), editor in chief newspaper NAYELI NEGRON ([id number]) on 07/08/2022 9:09:15 AM Referred By: LETITIA Confirmed By:LUIS BEAL MD
--- NOTE | 2022-07-05 18:48 | EX.ED.DYSGE1 ---
HPI History of Present Illness Chief Complaint: Hypertension Detail of Chief Complaint: High blood pressure, systolic 160, and dizziness Informant: patient Onset/Context/Timing Onset: Today Context: Sudden Onset Timing: Intermittent Quality: Dizziness is defined as orthostatic symptoms Location: Not applicable Current Severity: Gone Maximum Severity: Moderate Worsened by: Standing, activity Relieved by: Adding or supine position Associated Symptoms Associated Symptoms: Palpitations Narrative Narrative: Patient is a 82-year-old woman with history of valvuloplasty, ventricular septal myectomy and paroxysmal atrial fib who is presently on no anticoagulant. She states this morning she noted her heart was going fast. When she checked her blood pressure her heart rate was very fast. What concerned her was the systolic pressure of 160. She denies headache, visual, ocular auditory symptoms. Denies trouble speech or swallowing. She denies chest pressure or tightness. She denies shortness of breath or dyspnea on exertion. She denies orthopnea or PND. She denies swelling of her legs or feet. She denies abdominal pain, black or maroon-colored stool. She denies diarrhea. Prior similar symptoms: Yes (Several years ago according to the friend that drove her to the emergency d) Recent Illness/Hospitalization: No PFSH PFSH Medical History Atrial fibrillation Atrial fibrillation and flutter Atrial flutter with rapid ventricular response Bladder cancer Chronic diastolic heart failure COPD (chronic obstructive pulmonary disease) Essential hypertension Essential hypertension Former smoker Hyperlipidemia Hypertrophic obstructive cardiomyopathy (HOCM) LBBB (left bundle branch block) Long QT interval Non-Hodgkin lymphoma Nonrheumatic mitral (valve) insufficiency On home oxygen therapy Paroxysmal atrial fibrillation Persistent atrial fibrillation Polyp, sigmoid colon Presence of permanent cardiac pacemaker (~12/10/21) Sick sinus syndrome Home Medications cholecalciferol (vitamin D3) 25 mcg (1,000 unit) capsule 1,000 unit PO DAILY supplement 08/06/18 [History Last Taken 04/08/22] magnesium oxide 400 mg PO DAILY supplement 04/06/19 [History Last Taken 04/08/22] gabapentin 100 mg capsule 100 mg PO DAILY PRN Pain 10/16/21 [History Last Taken 04/08/22] furosemide 20 mg tablet 20 mg PO DAILY PRN diuretic 03/17/22 [History Last Taken Unknown] potassium chloride 20 mEq tablet,extended release 20 meq PO DAILY PRN supplement- with lasix 03/17/22 [History Last Taken Unknown] lisinopril 20 mg tablet 20 mg PO DAILY BP 04/09/22 [History Last Taken 04/08/22] omeprazole 20 mg capsule,delayed release 20 mg PO DAILY GERD 04/09/22 [History Last Taken 04/08/22] furosemide 40 mg tablet (Lasix) 40 mg PO DAILY #7 tabs 04/10/22 [Rx Last Taken Unknown] warfarin 3 mg tablet 3 mg PO .COMPLEX #90 tabs 06/10/22 [Rx Last Taken Unknown] hydrocodone-acetaminophen 5-325mg 5mg-325mg 0.5 tab PO PRN PRN Pain 07/05/22 [History Last Taken Unknown] metoprolol succinate 50 mg tablet,extended release 24 hr 50 mg PO DAILY #30 tabs 07/05/22 [Rx Last Taken Unknown] Allergy/AdvReac Type Severity Reaction Status Date / Time allopurinol Allergy Rash Verified 07/05/22 18:20 tramadol AdvReac dizzy Verified 07/05/22 18:20 Family History Father Heart disease Hypertension Mother No cardiac disease Surgical History History of bladder surgery History of cardioversion (~04/25/20) History of left heart catheterization (LHC) (~11/30/17) History of mitral valve repair (~07/30/18) History of ventricular septal myectomy (~07/30/18) Social History (Updated 07/05/22 @ 18:[address] Javad Kim MD) household members: none Smoking Status: Former smoker pack-years: 58 how long ago did patient quit smokin years ago alcohol intake: never substance use type: does not use caffeine: No what type of physical activity do you participate in: walking ROS ROS ED Constitutional Constitutional ED: Denies chills, fever(s), subjective, sweats or weight loss Eyes Eyes: Denies blurry vision, change in vision or diplopia ENT ENT ED: Denies ear pain, rhinorrhea or sore throat Cardiovascular Cardiovascular: Reports palpitations and racing heartbeat; Denies chest pain, orthopnea or paroxysmal nocturnal dyspnea Respiratory/Chest Respiratory/Chest: Denies cough, dyspnea, dyspnea on exertion, orthopnea or paroxysmal nocturnal dyspnea Gastrointestinal Gastrointestinal: Denies abdominal pain, constipation, diarrhea, melena, nausea or vomiting Genitourinary Genitourinary ED: Denies dysuria or hematuria Musculoskeletal Musculoskeletal: Denies arthralgias, back pain, myalgias or neck pain Integumentary Denies abscess, Abrasions or rash Neurologic Neurologic: Denies headache(s), paresthesias or weakness Psychiatric Psychiatric: Denies anxiety or depression Hematologic/Lymphatic Hematologic/Lymphatic: Denies systems reviewed and no addt'l complaints, except as documented, anemia, easy bleeding or easy bruising EXAM Physical Exam Const Vital Signs: 07/05/22 18:20 07/05/22 18:41 07/05/22 18:58 Temperature 97.1 F L Temperature Source Temporal Pulse Rate 82 121 H Pulse Rate [2] Pulse Rate [3] Pulse Rate [4] Respiratory Rate 15 24 H Respiratory Rate [2] Respiratory Rate [3] Respiratory Rate [4] Respiratory Effort Normal Non-Labored Respiratory Pattern Normal Blood Pressure 162/86 H 139/91 H Blood Pressure [2] Blood Pressure [3] Blood Pressure [4] Blood Pressure Mean 111 Pulse Ox 98 94 Oxygen Delivery Method Room Air Room Air Oxygen Delivery Method [1 (Initial Baseline)] Oxygen Delivery Method [2] Oxygen Delivery Method [3] Oxygen Delivery Method [4] Oxygen Flow Rate (L/min) [2] Oxygen Flow Rate (L/min) [4] 07/05/22 18:58 07/05/22 19:38 07/05/22 19:40 Temperature Temperature Source Pulse Rate 101 H Pulse Rate [2] 104 H Pulse Rate [3] 106 H Pulse Rate [4] 105 H Respiratory Rate 24 H Respiratory Rate [2] 35 H Respiratory Rate [3] 28 H Respiratory Rate [4] 28 H Respiratory Effort Respiratory Pattern Blood Pressure 118/86 H Blood Pressure [2] 120/70 Blood Pressure [3] 120/74 Blood Pressure [4] 124/66 H Blood Pressure Mean Pulse Ox 95 Oxygen Delivery Method Nasal Cannula Room Air Oxygen Delivery Method [1 (Initial Baseline)] Room Air Oxygen Delivery Method [2] Nasal Cannula Oxygen Delivery Method [3] Nasal Cannula Oxygen Delivery Method [4] Nasal Cannula Oxygen Flow Rate (L/min) [2] 4 Oxygen Flow Rate (L/min) [4] 2 Positive well nourished and well developed General Appearance ED: well developed and NAD; Negative for cyanotic, diaphoretic or pallor HEENT Reports moist mucous membranes HEENT Narrative: Head is atraumatic no cephalic. Ears normal. Nares patent. Mucosa moist. Posterior pharynx unremarkable. Eyes PERRL and EOMs intact bilaterally General Eye ED: Negative for pale conjunctiva or scleral icterus Neck no lymphadenopathy, supple and no JVD Neck Narrative: Trachea is midline. Chest Wall inspection of chest normal and palpation of chest normal Resp normal respiratory effort and clear to auscultation bilaterally Cardio S1 normal heart sound, S2 normal heart sound and no murmurs Rate: tachycardic Rhythm: abnormal rhythm irregularly irregular GI normal to inspection, nondistended, normoactive bowel sounds, non-tender and non-distended; Negative for hepatosplenomegaly Back/Spine no CVA tenderness Extremity normal to inspection General Extremety ED: Negative for edema or tenderness General Extremity: Negative for edema Neuro oriented x3, CN's II-XII intact bilaterally and no sensory deficits noted Sensorium / Orientation: alert Skin no rashes or lesions noted and no wounds General Skin Exam: Negative for jaundice or pallor MDM MDM MDM Narrative Medical decision making narrative: Patient presents with elevated blood pressure. Of concern is patient's heart rate and the fact that she is in atrial fibrillation. Since she noted the onset was this morning and has not had anything since lunch discussed cardioversion. Patient has no allergies to soy products or egg products. We will explained risk benefits of using propofol and was benefits of cardioversion. I was informed by nurse heart rate is 80 after 1 dose of metoprolol. Additional doses were discontinued. Plan is to discharge with prescription for metoprolol follow-up with Dr. Quintanilla. Eliquis was discontinued since she is on Coumadin. Lab Data Attestation: I reviewed the patient's lab results. Labs: Laboratory Results - last 24 hr 07/05/22 07/05/22 18:35 18:35 WBC 10.0 RBC 5.85 H Hgb 15.2 H Hct 48.3 H MCV 82.6 MCH 26.0 L MCHC 31.5 L RDW Std Deviation 47.7 H RDW Coeff of Neelima 16.2 H Plt Count 257 MPV 10.4 Immature Gran % (Auto) 0.500 Neut % (Auto) 75.4 H Lymph % (Auto) 15.4 L [place] % (Auto) 7.2 Eos % (Auto) 0.8 Baso % (Auto) 0.7 Absolute Neuts (auto) 7.5 Absolute Lymphs (auto) 1.53 Nucleated RBC % 0 Sodium 141 Potassium 3.9 Chloride 106 Carbon Dioxide 27.0 Anion Gap 8 BUN 16 Creatinine 0.94 Estim Creat Clear Calc 42.45 Est GFR (MDRD) Af Amer 73 Est GFR (MDRD) Non-Af 60 BUN/Creatinine Ratio 17.0 Glucose 142 H Calcium 9.3 Total Bilirubin 0.50 AST 18 ALT 22 Alkaline Phosphatase 78 Troponin I High Sens 35 Total Protein 6.9 Albumin 3.3 Globulin 3.6 Albumin/Globulin Ratio 0.9 TSH 1.02 Rhythm Strip Rhythm Strip: A-fib Rate: 139 Ectopy: None EKG Initial EKG: Attestation: I personally reviewed and interpreted this EKG as follows: Interpretation: Atrial Fibrillation (Ventricular rate is 133. Cures duration 126 ms. QRS morphology is consistent with left bundle branch block. QT intervals 364 ms. [place] to the left. There is an ossific ST-T wave changes most likely due to the bundle branch block and rate.) Follow-up EKG: Attestation: I personally reviewed and interpreted this EKG as follows: Interpretation: Atrial Flutter (Ventricular rate is 99. There is a variable block. There is left bundle branch block. Cures duration 130 ms. QT duration. 72 ms.) Procedures Other Procedures Procedure(s): 1 deep sedation 2 cardioversion Patient was informed of his benefits of propofol and adverse reactions and side effects. She had opportunity ask questions. She had none. She states she has been cardioverted in the past and had no complications. She was explained risk benefits of cardioversion. She had no questions. Consent was obtained for deep sedation using propofol and cardioversion Timeout was called. Start time 1917 End time 1921 Initial rhythm atrial fibrillation with RVR patient now in a sinus rhythm and has paced beats noted occasionally as well. She must have a demand pacer. Patient received a total of 60 mg of propofol. She was successfully cardioverted using 200 J. Repeat EKG was ordered. Will administer 5 mg of Eliquis because of concern for stun effect. We will have her follow-up with Dr. Quintanilla her workers compensation manager. Discharge Plan Triage Chief Complaint: Hypertension ED Provider: Javad Kim Dx/Rx/DC Orders Clinical Impression: Atrial fibrillation with rapid ventricular response, Anticoagulant prescribed Instructions: ED AFIB Prescriptions: New metoprolol succinate 50 mg tablet extended release 24 hr 50 mg PO DAILY Qty: 30 0RF No Action magnesium oxide 400 mg magnesium tablet 400 mg PO DAILY furosemide 20 mg tablet 20 mg PO DAILY PRN (Reason: diuretic) Hold Instructions: Hold while taking 40mg dose. Follow up with your primary care provider about whether they want you to resume this dose. potassium chloride 20 mEq tablet extended release 20 meq PO DAILY PRN (Reason: supplement- with lasix) gabapentin 100 mg capsule 100 mg PO DAILY PRN (Reason: Pain) cholecalciferol (vitamin D3) 1,000 UNIT capsule 1,000 unit PO DAILY omeprazole 20 mg capsule,delayed release(DR/EC) 20 mg PO DAILY Label Comments: TAKE 1 CAPSULE BY MOUTH DAILY BEFORE BREAKFAST. 1/2 HR BEFORE MEAL. lisinopril 20 mg tablet 20 mg PO DAILY furosemide [Lasix] 40 mg tablet 40 mg PO DAILY Qty: 7 0RF hydrocodone-acetaminophen 5-325 mg tablet 0.5 tab PO PRN PRN (Reason: Pain) Label Comments: TAKE 1/2 A PILL BY MOUTH TWO TIMES A DAY FOR 28 DAYS warfarin 3 mg tablet 3 mg PO .COMPLEX Qty: 90 3RF Protocol: Dose Management Condition: Thursday Dose/Route: 1.5 mg Instruction: 0.5 x 3 mg tablets Condition: Thursday Dose/Route: 3 mg Instruction: 1 x 3 mg tablet Condition: Thursday Dose/Route: 1.5 mg Instruction: 0.5 x 3 mg tablets Condition: Thursday Dose/Route: 1.5 mg Instruction: 0.5 x 3 mg tablets Condition: Dose/Route: 1.5 mg Instruction: 0.5 x 3 mg tablets Condition: Thursday Dose/Route: 1.5 mg Instruction: 0.5 x 3 mg tablets Condition: Thursday Dose/Route: 1.5 mg Instruction: 0.5 x 3 mg tablets Protocol Text: Adjustment Start Date: Thursday06/24/22 INR Value: 2.5 INR Date: 06/24/22 Recheck Date: 07/02/22 Rx Instructions: 3 mg orally 1 tablet daily on ,, ; and 1/2 tablet (1.5 mg) on Thu, Thu, and Thu; OR DIRECTED; Primary Care Provider: Cheyanne Holt Referrals: Mart Souza MD [Med Staff - Active Staff] - 5-7 Days Cheyanne Holt MD [Primary Care Provider] - Disposition Disposition: Home, Self Care
[2022-07-05 18:52] LABS: Absolute Lymphocyte Count 1.53 X10^3/uL (0.83-4.51); Absolute Neutrophil Count 7.5 X10^3/uL (2.0-7.7); Basophil# 0.07 X10^3/uL; Basophil% 0.7 % (0-1); Eosinophil# 0.08 X10^3/uL; Eosinophils% 0.8 % (0-5); Hematocrit 48.3 % (37-47); Hemoglobin 15.2 g/dL (12.0-15.0); Lymphocyte # 1.53 X10^3/ul (0.83-4.51); Lymphocyte % 15.4 % (19-41); Mean Corp Hgb Conc 31.5 g/dL (32-36); Mean Corpuscular Volume 82.6 fL (81-99); Mean Platelet Vol. 10.4 fl (6.2-12.0); Monocyte# 0.72 X10^3/uL; Monocyte% 7.2 % (0-10); NRBC Flagged by Analyzer 0 % (0-5); Neutrophil # 7.51 X10^3/uL (2.7-7.7); Neutrophil % 75.4 % (47-70); Platelet Count 257 K/mm3 (150-450); RBC Distribution Width CV 16.2 % (11.6-14.6); RBC Distribution Width SD 47.7 fl (35.1-43.9); Red Blood Count 5.85 M/mm3 (4.2-5.4)
[2022-07-05 18:58] VITALS: BP 120/70; BP 120/74; BP 124/66; BP 139/91; PULSE 104; PULSE 105; PULSE 106; PULSE 121; RESP 24; RESP 28; RESP 35; O2SAT 88; O2SAT 94; O2SAT 96; O2SAT 97
[2022-07-05] MEDS: Propofol 200 MG/20 ML Vial IV BOLUS (19:16)
[2022-07-05 19:18] LABS: ALB/GLOB Ratio 0.9 RATIO (0.9-2.4); AST(SGOT) 18 U/L (15-37); Alanine Aminotransfer ALT/SGPT 22 U/L (13-56); Albumin, Serum 3.3 g/dL (3.2-5.0); Alkaline Phosphatase 78 U/L (45-117); Anion Gap 8 (5-15); BUN 16 mg/dL (7-18); Calcium,Total 9.3 mg/dL (8.5-10.1); Chloride 106 mmol/L (98-107); Creatinine, Serum 0.94 mg/dL (0.55-1.02); EST Glomerular Filtration Rate 60 mL/min (>60); Est Glom Filt Rate - Afr Amer 73 mL/min (>60); Estimated Creatinine Clearance 42.45 ml/min; Globulin 3.6 g/dL (2.2-4.2); Glucose 142 mg/dL (74-106); Potassium 3.9 mmol/L (3.5-5.1); Protein, Total 6.9 g/dL (6.4-8.2); Sodium Level 141 mmol/L (136-145); Thyroid Stim Hormone (TSH) 1.02 uIU/mL (0.358-3.74); Troponin-I HS (w/2H Reflex) 35 pg/mL (3.0-54.0)
--- NOTE | 2022-07-05 19:21 | EKG12_ITS ---
Test Reason : DIZZINESS Blood Pressure : / mmHG Vent. Rate : 133 BPM Atrial Rate : 000 BPM P-R Int : 000 ms QRS Dur : 126 ms QT Int : 364 ms P-R-T Axes : 000 -28 146 degrees QTc Int : 541 ms Atrial fibrillation with rapid ventricular response Left bundle branch block Abnormal ECG Confirmed by EMIGDIO FORTUNE, BOBBI ([id number]), videotape editor NAYELI NEGRON ([id number]) on 07/08/2022 9:11:13 AM Referred By: LETITIA Confirmed By:LUIS BEAL MD
[2022-07-05 19:38] VITALS: BP 122/77; O2SAT 96
[2022-07-05 19:40] VITALS: BP 118/86; PULSE 101; RESP 24; O2SAT 95
[2022-07-05] MEDS: Metoprolol Tartrate 5 MG/5 ML Vial IV (20:00)
[2022-07-05 20:08] VITALS: BP 144/86; PULSE 96; RESP 16; O2SAT 95
[2022-07-05 20:18] VITALS: RESP 22
[2022-07-05 20:41] LABS: Reflex Troponin-HS? (from REC) Y
[2022-07-05] MEDS: Metoprolol(XL)Succ 25 MG Tablet PO (20:55)
== END 2022-07-05 21:06 | disposition home or self-care (01) ==
PROVIDERS: Emergency Provider Emergency Medicine; PCP Internal Medicine; Visit Provider Emergency Medicine
DX: I48.0 Paroxysmal atrial fibrillation (principal); J44.9 Chronic obstructive pulmonary disease, unspecified; I11.0 Hypertensive heart disease with heart failure; I50.32 Chronic diastolic (congestive) heart failure; E78.5 Hyperlipidemia, unspecified; Z79.899 Other long term (current) drug therapy; Z79.01 Long term (current) use of 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; Z87.891 Personal history of nicotine dependence
CPT/HCPCS: 80053; 84443; 84484; 85025; 92960; 93005; 96374; 96375; 99152; 99285; J7030; A4216

== ENCOUNTER 2022-07-06 11:51 | Emergency (ER) | payer MEDICARE, SELFPAY ==
[2022-07-06 11:52] VITALS: BP 146/94; PULSE 108; RESP 14; TEMP 36.4; O2SAT 97; BMI 22.6
--- NOTE | 2022-07-06 12:15 | RAD_ITS ---
STUDY: X-RAY CHEST REASON FOR EXAM: Female, 82 years old. Dyspnea TECHNIQUE: Single AP portable view of the chest. COMPARISON: 12/11/2021. FINDINGS: Single chamber left-sided pacemaker is stable position. The lungs are somewhat hyperinflated. No focal infiltrate is seen. There is no demonstrated pleural abnormality. Sternal cerclage wires and vascular clips are present from a prior sternotomy and coronary artery bypass graft procedure (CABG). Atrial appendage clip is again seen. The cardiac silhouette is borderline in size. Normal mediastinum and niharika. Normal visualized pulmonary arteries. Mild tortuosity of the thoracic aorta. Stable soft tissues and osseous structures. There is no demonstrated abnormality of the visualized soft tissue structures of the upper abdomen. RAD/Chest 1 View (Portable) IMPRESSION: No active pulmonary disease. Electronically Signed: Mina Fernandez MD at 13:27 EDT ,
--- NOTE | 2022-07-06 12:16 | EKG12_ITS ---
Test Reason : A FIB Blood Pressure : / mmHG Vent. Rate : 093 BPM Atrial Rate : 000 BPM P-R Int : 000 ms QRS Dur : 126 ms QT Int : 436 ms P-R-T Axes : 000 -35 157 degrees QTc Int : 542 ms Atrial fibrillation Left axis deviation Left bundle branch block Abnormal ECG Confirmed by EMIGDIO FORTUNE, BOBBI ([id number]), electronic news gathering editor NAYELI NEGRON ([id number]) on 07/08/2022 9:19:14 AM Referred By: Confirmed By:LUIS BEAL MD
[2022-07-06 12:59] LABS: Absolute Lymphocyte Count 1.13 X10^3/uL (0.83-4.51); Absolute Neutrophil Count 5.6 X10^3/uL (2.0-7.7); Basophil# 0.06 X10^3/uL; Basophil% 0.8 % (0-1); Eosinophil# 0.13 X10^3/uL; Eosinophils% 1.7 % (0-5); Hematocrit 44.8 % (37-47); Hemoglobin 13.8 g/dL (12.0-15.0); Lymphocyte # 1.13 X10^3/ul (0.83-4.51); Lymphocyte % 14.9 % (19-41); Mean Corp Hgb Conc 30.8 g/dL (32-36); Mean Corpuscular Hgb 25.7 pg (27.0-32.0); Mean Corpuscular Volume 83.6 fL (81-99); Mean Platelet Vol. 10.4 fl (6.2-12.0); Monocyte# 0.68 X10^3/uL; NRBC Flagged by Analyzer 0 % (0-5); Neutrophil # 5.55 X10^3/uL (2.7-7.7); Neutrophil % 73.1 % (47-70); Platelet Count 236 K/mm3 (150-450); RBC Distribution Width CV 15.9 % (11.6-14.6); RBC Distribution Width SD 47.8 fl (35.1-43.9); Red Blood Count 5.36 M/mm3 (4.2-5.4); White Blood Count 7.6 K/mm3 (4.4-11.0)
[2022-07-06] MEDS: dilTIAZem 25 MG/5 ML Vial 10 MG IV BOLUS (13:13)
[2022-07-06 13:14] LABS: Anion Gap 5 (5-15); BUN 13 mg/dL (7-18); BUN/Creat Ratio 14.2 RATIO (10-20); Calcium,Total 9.1 mg/dL (8.5-10.1); Chloride 109 mmol/L (98-107); Creatinine, Serum 0.92 mg/dL (0.55-1.02); EST Glomerular Filtration Rate 62 mL/min (>60); Est Glom Filt Rate - Afr Amer 75 mL/min (>60); Estimated Creatinine Clearance 43.37 ml/min; Glucose 114 mg/dL (74-106); Potassium 4.2 mmol/L (3.5-5.1); Sodium Level 142 mmol/L (136-145); Troponin-I HS 31 pg/mL (3.0-54.0)
[2022-07-06 13:15] LABS: International Normalized Ratio 3.3
[2022-07-06 13:51] VITALS: PULSE 85; RESP 16; O2SAT 95
--- NOTE | 2022-07-06 14:14 | EX.ED.DYSGE1 ---
HPI History of Present Illness Chief Complaint: Dizziness Informant: patient Onset/Context/Timing Onset: Days Timing: Continuous Current Severity: Mild Worsened by: Nothing Relieved by: Nothing Associated Symptoms Associated Symptoms: Short of breath, palpitations Narrative Narrative: Patient was seen in the ED yesterday for A. fib with RVR. Cardioverted. Prescribed metoprolol. She has not yet started taking her prescription. She presents today for return of palpitations as well as dizziness and shortness of breath that started with the palpitations. No vision changes, speech changes, facial droop, weakness, numbness. No chest pain. No cough or sputum. No fevers. She is on Coumadin and has an extensive cardiac history including atrial fibrillation with RVR, hypertension, hokum, sick sinus syndrome, pacemaker implantation, mitral valve repair, ventricular septal myectomy remotely. [facility] Medical History Atrial fibrillation Atrial fibrillation and flutter Atrial flutter with rapid ventricular response Bladder cancer Chronic diastolic heart failure COPD (chronic obstructive pulmonary disease) Essential hypertension Essential hypertension Former smoker Hyperlipidemia Hypertrophic obstructive cardiomyopathy (HOCM) LBBB (left bundle branch block) Long QT interval Non-Hodgkin lymphoma Nonrheumatic mitral (valve) insufficiency On home oxygen therapy Paroxysmal atrial fibrillation Persistent atrial fibrillation Polyp, sigmoid colon Presence of permanent cardiac pacemaker (~12/10/21) Sick sinus syndrome Home Medications cholecalciferol (vitamin D3) 25 mcg (1,000 unit) capsule 1,000 unit PO DAILY supplement 08/06/18 [History Last Taken 04/08/22] magnesium oxide 400 mg PO DAILY supplement 04/06/19 [History Last Taken 04/08/22] gabapentin 100 mg capsule 100 mg PO DAILY PRN Pain 10/16/21 [History Last Taken 04/08/22] furosemide 20 mg tablet 20 mg PO DAILY PRN diuretic 03/17/22 [History Last Taken Unknown] potassium chloride 20 mEq tablet,extended release 20 meq PO DAILY PRN supplement- with lasix 03/17/22 [History Last Taken Unknown] lisinopril 20 mg tablet 20 mg PO DAILY BP 04/09/22 [History Last Taken 04/08/22] omeprazole 20 mg capsule,delayed release 20 mg PO DAILY GERD 04/09/22 [History Last Taken 04/08/22] furosemide 40 mg tablet (Lasix) 40 mg PO DAILY #7 tabs 04/10/22 [Rx Last Taken Unknown] warfarin 3 mg tablet 3 mg PO .COMPLEX #90 tabs 06/10/22 [Rx Last Taken Unknown] hydrocodone-acetaminophen 5-325mg 5mg-325mg 0.5 tab PO PRN PRN Pain 07/05/22 [History Last Taken Unknown] metoprolol succinate 50 mg tablet,extended release 24 hr 50 mg PO DAILY #30 tabs 07/05/22 [Rx Last Taken Unknown] Allergy/AdvReac Type Severity Reaction Status Date / Time allopurinol Allergy Rash Verified 07/06/22 11:52 tramadol AdvReac dizzy Verified 07/06/22 11:52 Family History Father Heart disease Hypertension Mother No cardiac disease Surgical History History of bladder surgery History of cardioversion (~04/25/20) History of left heart catheterization (LHC) (~11/30/17) History of mitral valve repair (~07/30/18) History of ventricular septal myectomy (~07/30/18) Social History household members: none Smoking Status: Former smoker pack-years: 58 how long ago did patient quit smokin years ago alcohol intake: never substance use type: does not use caffeine: No what type of physical activity do you participate in: walking ROS ROS ED Constitutional Constitutional ED: Denies chills Eyes Eyes: Denies blurry vision, change in vision or diplopia ENT ENT ED: Denies ear pain Cardiovascular Cardiovascular: Reports palpitations and racing heartbeat; Denies chest pain Respiratory/Chest Respiratory/Chest: Reports dyspnea; Denies cough or sputum Gastrointestinal Gastrointestinal: Denies abdominal pain Genitourinary Genitourinary ED: Denies dysuria Musculoskeletal Musculoskeletal: Denies arthralgias Integumentary Denies abscess Neurologic Neurologic: Denies headache(s), paresthesias or weakness Psychiatric Psychiatric: Denies anxiety Endocrine Endocrinology: Denies cold intolerance Hematologic/Lymphatic Hematologic/Lymphatic: Denies easy bruising Allergic/Immunologic Allergic/Immunologic ED: Denies mouth swelling EXAM Physical Exam Const Vital Signs: 07/06/22 11:52 07/06/22 12:17 Temperature 97.6 F L Temperature Source Temporal Pulse Rate 108 H Respiratory Rate 14 Respiratory Effort Short of Breath Blood Pressure 146/94 H Blood Pressure Mean 111 Pulse Ox 97 Oxygen Delivery Method Room Air Positive well nourished and well developed General Appearance ED: well developed HEENT Reports moist mucous membranes Eyes EOMs intact bilaterally Resp normal respiratory effort and clear to auscultation bilaterally Cardio Negative for regular rate Rate: tachycardic GI normal to inspection, nondistended, normoactive bowel sounds Extremity normal to inspection General Extremety ED: Negative for edema or tenderness General Extremity: Negative for edema Neuro oriented x3 Skin no rashes or lesions noted MDM MDM MDM Narrative Medical decision making narrative: EKG showed atrial fibrillation with a rate of 93. No sign of acute infarction. Interpreted by me. Chest x-ray was interpreted by the radiologist and myself and showed no acute abnormalities. CBC and BMP are unremarkable. INR 3.3. Troponin 31. Patient had an echo last year that showed a normal EF. She was treated with fluids as well as Cardizem. On reevaluation, heart rate is in the 80s and 90s. Good blood pressure. Symptoms have improved. Spoke with Dr. Giraldo who was on-call for cardiology. Advised continuing anticoagulation and that she should take her metoprolol as prescribed. Follow-up in the office. Return for any new or worsening issues. Discharge. Impression #1 atrial fibrillation with RVR Lab Data Attestation: I reviewed the patient's lab results. Labs: Laboratory Results - last 24 hr 07/06/22 07/06/22 07/06/22 12:52 12:52 12:52 WBC 7.6 RBC 5.36 Hgb 13.8 Hct 44.8 MCV 83.6 MCH 25.7 L MCHC 30.8 L RDW Std Deviation 47.8 H RDW Coeff of Neelima 15.9 H Plt Count 236 MPV 10.4 Immature Gran % (Auto) 0.500 Neut % (Auto) 73.1 H Lymph % (Auto) 14.9 L [place] % (Auto) 9.0 Eos % (Auto) 1.7 Baso % (Auto) 0.8 Absolute Neuts (auto) 5.6 Absolute Lymphs (auto) 1.13 Nucleated RBC % 0 PT 33.0 H INR 3.3 Sodium 142 Potassium 4.2 Chloride 109 H Carbon Dioxide 28.0 Anion Gap 5 BUN 13 Creatinine 0.92 Estim Creat Clear Calc 43.37 Est GFR (MDRD) Af Amer 75 Est GFR (MDRD) Non-Af 62 BUN/Creatinine Ratio 14.2 Glucose 114 H Calcium 9.1 Troponin I High Sens 31 Radiography Diagnostic Testing: Clinical Impression(s) from Imaging Studies Chest X-Ray 07/06/22 12:15 IMPRESSION: No active pulmonary disease. Electronically Signed: Mina Fernandez MD at 13:27 EDT , Discharge Plan Triage Chief Complaint: Dizziness ED Provider: Pato Javier Dx/Rx/DC Orders Instructions: AFib Prescriptions: No Action magnesium oxide 400 mg magnesium tablet 400 mg PO DAILY furosemide 20 mg tablet 20 mg PO DAILY PRN (Reason: diuretic) Hold Instructions: Hold while taking 40mg dose. Follow up with your primary care provider about whether they want you to resume this dose. potassium chloride 20 mEq tablet extended release 20 meq PO DAILY PRN (Reason: supplement- with lasix) gabapentin 100 mg capsule 100 mg PO DAILY PRN (Reason: Pain) cholecalciferol (vitamin D3) 1,000 UNIT capsule 1,000 unit PO DAILY omeprazole 20 mg capsule,delayed release(DR/EC) 20 mg PO DAILY Label Comments: TAKE 1 CAPSULE BY MOUTH DAILY BEFORE BREAKFAST. 1/2 HR BEFORE MEAL. lisinopril 20 mg tablet 20 mg PO DAILY furosemide [Lasix] 40 mg tablet 40 mg PO DAILY Qty: 7 0RF hydrocodone-acetaminophen 5-325 mg tablet 0.5 tab PO PRN PRN (Reason: Pain) Label Comments: TAKE 1/2 A PILL BY MOUTH TWO TIMES A DAY FOR 28 DAYS metoprolol succinate 50 mg tablet extended release 24 hr 50 mg PO DAILY Qty: 30 0RF warfarin 3 mg tablet 3 mg PO .COMPLEX Qty: 90 3RF Protocol: Dose Management Condition: Thursday Dose/Route: 1.5 mg Instruction: 0.5 x 3 mg tablets Condition: Thursday Dose/Route: 3 mg Instruction: 1 x 3 mg tablet Condition: Thursday Dose/Route: 1.5 mg Instruction: 0.5 x 3 mg tablets Condition: Thursday Dose/Route: 1.5 mg Instruction: 0.5 x 3 mg tablets Condition: Dose/Route: 1.5 mg Instruction: 0.5 x 3 mg tablets Condition: Thursday Dose/Route: 1.5 mg Instruction: 0.5 x 3 mg tablets Condition: Thursday Dose/Route: 1.5 mg Instruction: 0.5 x 3 mg tablets Protocol Text: Adjustment Start Date: Thursday06/24/22 INR Value: 2.5 INR Date: 06/24/22 Recheck Date: 07/02/22 Rx Instructions: 3 mg orally 1 tablet daily on Thu,Thu,, ; and 1/2 tablet (1.5 mg) on Thu, Thu, and Thu; OR DIRECTED; Primary Care Provider: Cheyanne Holt Referrals: Arnold Bland MD [Med Staff - Active Staff] - Disposition Disposition: Home, Self Care
[2022-07-06 14:23] VITALS: RESP 16
== END 2022-07-06 14:29 | disposition home or self-care (01) ==
PROVIDERS: Emergency Provider Emergency Medicine; PCP Internal Medicine; Visit Provider Emergency Medicine
DX: I48.0 Paroxysmal atrial fibrillation (principal); J44.9 Chronic obstructive pulmonary disease, unspecified; I11.0 Hypertensive heart disease with heart failure; I50.32 Chronic diastolic (congestive) heart failure; I42.1 Obstructive hypertrophic cardiomyopathy; I49.5 Sick sinus syndrome; E78.5 Hyperlipidemia, unspecified; R00.2 Palpitations; R42 Dizziness and giddiness; Z79.01 Long term (current) use of 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; Z79.899 Other long term (current) drug therapy; Z87.891 Personal history of nicotine dependence; Z95.0 Presence of cardiac pacemaker; Z99.81 Dependence on supplemental oxygen
CPT/HCPCS: 71045; 80048; 84484; 85025; 85610; 93005; 96361; 96374; 99283; J7040; A4216

== ENCOUNTER 2022-07-28 15:41 | Outpatient (RCR) | payer MEDICARE, SELFPAY ==
[2022-07-03 00:17] VITALS: BMI 23.5
[2022-07-08 14:40] LABS: INR Fingerstick 4.9; Prothrombin Time Fingerstick 53.6 SEC (11.7-14.9)
[2022-07-08 15:03] LABS: International Normalized Ratio 4.1; Prothrombin Time (Protime)PT. 39.7 SECONDS (11.7-14.9)
[2022-07-10 15:36] LABS: INR Fingerstick 3.7; Prothrombin Time Fingerstick 40.9 SEC (11.7-14.9)
[2022-07-14 16:21] LABS: INR Fingerstick 1.6; Prothrombin Time Fingerstick 19.1 SEC (11.7-14.9)
[2022-07-18 15:52] LABS: International Normalized Ratio 1.7; Prothrombin Time (Protime)PT. 19.8 SECONDS (11.7-14.9)
[2022-07-21 14:51] LABS: INR Fingerstick 1.9; Prothrombin Time Fingerstick 22.9 SEC (11.7-14.9)
[2022-07-28 15:50] LABS: INR Fingerstick 2.5; Prothrombin Time Fingerstick 28.9 SEC (11.7-14.9)
== END 2022-07-28 18:00 | disposition home or self-care (01) ==
LOC: LAB 15:41
PROVIDERS: Family Provider Internal Medicine; PCP Internal Medicine; Referring Provider Internal Medicine Cardiovascular Disease; Visit Provider Internal Medicine Cardiovascular Disease
DX: I48.19 Other persistent atrial fibrillation; Z79.899 Other long term (current) drug therapy
CPT/HCPCS: 36415; 36416; 85610

== ENCOUNTER 2022-08-11 13:55 | Outpatient (RCR) | payer MEDICARE, SELFPAY ==
[2022-08-01 23:25] VITALS: BMI 23.5
[2022-08-11 14:06] LABS: INR Fingerstick 2.7; Prothrombin Time Fingerstick 31.2 SEC (11.7-14.9)
== END 2022-09-01 09:44 | disposition home or self-care (01) ==
LOC: LAB 13:55
PROVIDERS: Family Provider Internal Medicine; PCP Internal Medicine; Referring Provider Internal Medicine Cardiovascular Disease; Visit Provider Internal Medicine Cardiovascular Disease
DX: I48.19 Other persistent atrial fibrillation (principal); Z79.899 Other long term (current) drug therapy
CPT/HCPCS: 36416; 85610

== ENCOUNTER 2022-08-17 12:28 | Emergency (ER) | payer MEDICARE, SELFPAY ==
[2022-08-17 12:30] VITALS: BP 131/77; PULSE 58; RESP 16; TEMP 36.2; O2SAT 96; BMI 23.3
[2022-08-17 12:32] VITALS: BP 131/77; PULSE 100; RESP 16; TEMP 36.2; O2SAT 96
[2022-08-17 12:39] VITALS: O2SAT 94
[2022-08-17 12:40] VITALS: PULSE 100
--- NOTE | 2022-08-17 13:01 | EKG12_ITS ---
Test Reason : SOB/CP Blood Pressure : / mmHG Vent. Rate : 088 BPM Atrial Rate : 330 BPM P-R Int : 000 ms QRS Dur : 134 ms QT Int : 406 ms P-R-T Axes : 098 -24 126 degrees QTc Int : 491 ms Atrial flutter with variable A-V block with occasional ventricular-paced complexes Left bundle branch block Abnormal ECG Confirmed by RIVAS FORTUNE, AG ([id number]), advertising editor NAYELI NEGRON ([id number]) on 08/19/2022 8:19:56 AM Referred By: KRISTIN Confirmed By:AG HATHAWAY MD
--- NOTE | 2022-08-17 13:10 | EX.ED.DYSGE1 ---
HPI History of Present Illness Chief Complaint: Shortness of Breath Informant: patient Narrative Narrative: Patient has multiple issues that she would like to talk about today. One of them is that the last night she felt her heart rate go fast. It went up to about 125. She has a history of A. fib. She had a pacer placed several months ago. This was to prevent her heart rate going slow. I asked her if she is taking her metoprolol. She says she will not take it if her heart rate is only about 80 or so but she will take it if it goes up high. Therefore, she did not take her metoprolol yesterday and her heart rate went up I. She still has not taken it but her heart rate is now down to 90s. It sounds like she takes her metoprolol on a as needed basis. Patient felt a little short of breath but she states she feels this way not uncommonly. She uses oxygen 2 or 3 nights out of the month. She does have COPD. Has an inhaler that she will can only use but did not try this. She is denying chest pain. She is also concerned that she has had some swelling of her right foot and ankle for some weeks or a month. She has seen her primary physician for this. She is seeing [facility] orthopedics for this. She has had x-rays and ultrasounds. Its not new different or worse today. She was told she does not have a blood clot. [facility] Medical History Atrial fibrillation Atrial fibrillation and flutter Atrial flutter with rapid ventricular response Bladder cancer Chronic diastolic heart failure COPD (chronic obstructive pulmonary disease) Essential hypertension Essential hypertension Former smoker Hyperlipidemia Hypertrophic obstructive cardiomyopathy (HOCM) LBBB (left bundle branch block) Long QT interval Non-Hodgkin lymphoma Nonrheumatic mitral (valve) insufficiency On home oxygen therapy Paroxysmal atrial fibrillation Persistent atrial fibrillation Polyp, sigmoid colon Presence of permanent cardiac pacemaker (~12/10/21) Sick sinus syndrome Home Medications cholecalciferol (vitamin D3) 25 mcg (1,000 unit) capsule 1,000 unit PO DAILY supplement 08/06/18 [History Last Taken 04/08/22] magnesium oxide 400 mg PO DAILY supplement 04/06/19 [History Last Taken 04/08/22] gabapentin 100 mg capsule 100 mg PO DAILY PRN Pain 10/16/21 [History Last Taken 04/08/22] potassium chloride 20 mEq tablet,extended release 20 meq PO DAILY PRN supplement- with lasix 03/17/22 [History Last Taken Unknown] omeprazole 20 mg capsule,delayed release 20 mg PO DAILY GERD 04/09/22 [History Last Taken 04/08/22] warfarin 3 mg tablet 3 mg PO .COMPLEX #90 tabs 06/10/22 [Rx Last Taken Unknown] hydrocodone-acetaminophen 5-325mg 5mg-325mg 0.5 tab PO PRN PRN Pain 07/05/22 [History Last Taken Unknown] metoprolol succinate 50 mg tablet,extended release 24 hr 50 mg PO DAILY #30 tabs 07/05/22 [Rx Last Taken Unknown] furosemide 20 mg tablet 20 mg PO DAILY diuretic 07/08/22 [History Last Taken Unknown] furosemide 40 mg tablet (Lasix) 40 mg PO DAILY PRN 07/08/22 [History Last Taken Unknown] warfarin 1 mg tablet 1 mg PO .COMPLEX #30 tabs 07/16/22 [Rx Last Taken Unknown] lisinopril 20 mg tablet See Rx Instructions .Route .COMPLEX #90 TABLETS 08/14/22 [Rx Last Taken Unknown] Allergy/AdvReac Type Severity Reaction Status Date / Time allopurinol Allergy Rash Verified 08/17/22 12:29 tramadol AdvReac dizzy Verified 08/17/22 12:29 Family History Father Heart disease Hypertension Mother No cardiac disease Surgical History History of bladder surgery History of cardioversion (~04/25/20) History of left heart catheterization (LHC) (~11/30/17) History of mitral valve repair (~07/30/18) History of ventricular septal myectomy (~07/30/18) Social History household members: none Smoking Status: Former smoker pack-years: 58 how long ago did patient quit smokin years ago alcohol intake: never substance use type: does not use caffeine: No what type of physical activity do you participate in: walking ROS ROS ED Constitutional Constitutional ED: Denies chills or fever(s) Eyes Eyes: Denies change in vision ENT ENT ED: Denies rhinorrhea or sore throat Cardiovascular Cardiovascular: Reports palpitations and racing heartbeat; Denies chest pain Respiratory/Chest Respiratory/Chest: Reports dyspnea; Denies cough or sputum Gastrointestinal Gastrointestinal: Denies abdominal pain, nausea or vomiting Genitourinary Genitourinary ED: Denies dysuria Musculoskeletal Musculoskeletal: Denies myalgias Integumentary Denies rash Neurologic Neurologic: Denies paresthesias or weakness Endocrine Endocrinology: Denies polydipsia or polyuria Hematologic/Lymphatic Hematologic/Lymphatic: Reports easy bleeding and easy bruising Allergic/Immunologic Allergic/Immunologic ED: Denies urticaria EXAM Physical Exam Const Vital Signs: 08/17/22 12:30 08/17/22 12:39 08/17/22 12:40 Temperature 97.2 F L Temperature Source Temporal Pulse Rate 58 L 100 Respiratory Rate 16 Respiratory Effort Non-Labored Short of Breath Respiratory Pattern Tachypnea Blood Pressure 131/77 H Blood Pressure Mean 95 Pulse Ox 96 Oxygen Delivery Method Room Air Room Air 08/17/22 12:32 08/17/22 13:27 08/17/22 13:27 Temperature 97.2 F L Temperature Source Temporal Pulse Rate 100 81 Respiratory Rate 16 20 H Respiratory Effort Respiratory Pattern Blood Pressure 131/77 H Blood Pressure Mean 95 Pulse Ox 96 93 Oxygen Delivery Method Room Air Room Air 08/17/22 13:27 Temperature Temperature Source Pulse Rate Respiratory Rate 20 H Respiratory Effort Short of Breath Respiratory Pattern Blood Pressure Blood Pressure Mean Pulse Ox 93 Oxygen Delivery Method Room Air Positive well nourished and well developed Constitutional Narrative: CamePatient looks very comfortable nontoxic sitting on bed. Her heart rate was recorded is 58. But is running a consistent 80-105 in A. fib on the monitor now. General Appearance ED: well developed and NAD HEENT Reports moist mucous membranes; Denies dry mucous membranes Mouth ED: No dry mucous membranes Mouth: No dry mucous membranes Eyes General Eye ED: Negative for scleral icterus Neck no JVD Chest Wall inspection of chest normal Chest Narrative: Well-healed median sternotomy and left upper chest wall pacer scars Resp normal respiratory effort Auscultation: Negative for rales Cardio regular rate; Negative for regular rhythm Rhythm: abnormal rhythm GI normal to inspection, nondistended, normoactive bowel sounds, non-tender and no masses Palpation: soft Back/Spine no CVA tenderness Extremity Extremity Narrative: She does have a little bit of swelling around the ankle and top of the foot on the left. But no sign of cellulitis. No pain with motion. No warmth. No distended veins Neuro Sensorium / Orientation: alert Psych mental status grossly normal Skin no rashes or lesions noted MDM MDM MDM Narrative Medical decision making narrative: Chest x-ray, EKG showed no acute process. Blood work shows normal CBC. Electrolytes are normal. Troponin is negative and at her baseline. INR is therapeutic at 3.2. Patient would like to go home. I think she is having symptoms partially due to personal management of her metoprolol. She only takes it if her heart rate goes up. But then her heart rate did go up and she was concerned why and did not take her metoprolol because was afraid to. I explained that it may work better if she takes her metoprolol scheduled as it is. The pacemaker will prevent bradycardia. She is comfortable with this plan and following up Patient also felt better after breathing treatment. She states sometimes she has trouble breathing especially with weather changes. I explained that she had a hint of a wheeze initially on exam. She has albuterol inhaler but does not use it. I explained if she feels like she is breathing or difficulty or wheezing she should try the inhaler. If its not getting better she should return. Lab Data Attestation: I reviewed the patient's lab results. Labs: Laboratory Results - last 24 hr 08/17/22 08/17/22 08/17/22 13:10 13:10 13:20 WBC 6.4 RBC 5.54 H Hgb 14.6 Hct 46.6 MCV 84.1 MCH 26.4 L MCHC 31.3 L RDW Std Deviation 48.7 H RDW Coeff of Neelima 16.0 H Plt Count 213 MPV 10.4 Immature Gran % (Auto) 0.200 Neut % (Auto) 72.8 H Lymph % (Auto) 16.1 L Weston % (Auto) 8.0 Eos % (Auto) 1.6 Baso % (Auto) 1.3 H Absolute Neuts (auto) 4.7 Absolute Lymphs (auto) 1.03 Nucleated RBC % 0 PT 32.5 H INR 3.2 Sodium 140 Potassium 4.0 Chloride 106 Carbon Dioxide 28.0 Anion Gap 6 BUN 14 Creatinine 0.91 Estim Creat Clear Calc 43.85 Est GFR (MDRD) Af Amer 76 Est GFR (MDRD) Non-Af 62 BUN/Creatinine Ratio 15.3 Glucose 101 Calcium 9.2 Troponin I High Sens 29 Radiography Diagnostic Testing: Clinical Impression(s) from Imaging Studies Chest X-Ray 08/17/22 13:23 IMPRESSION: No significant interval change. Chronic atelectasis or scarring in the lung bases. Electronically Signed: Dinorah Salazar MD at 13:34 EDT , Chronic changes but no acute process seen on chest x-ray. X-ray looked at by me and read by radiology. EKG Initial EKG: Comments: EKG done due to palpitations and history of A. fib shows atrial fibrillation/flutter with variable rate and overall rate at [address] and T wave changes. Left bundle branch block pattern. QTC normal. QRS a bit long Discharge Plan Triage Chief Complaint: Shortness of Breath ED Provider: Rohan Hawley Dx/Rx/DC Orders Clinical Impression: Palpitation, Bronchospasm Instructions: ED Palpitations Prescriptions: No Action magnesium oxide 400 mg magnesium tablet 400 mg PO DAILY potassium chloride 20 mEq tablet extended release 20 meq PO DAILY PRN (Reason: supplement- with lasix) furosemide 20 mg tablet 20 mg PO DAILY Hold Instructions: Hold while taking 40mg dose. Follow up with your primary care provider about whether they want you to resume this dose. gabapentin 100 mg capsule 100 mg PO DAILY PRN (Reason: Pain) furosemide [Lasix] 40 mg tablet 40 mg PO DAILY PRN cholecalciferol (vitamin D3) 1,000 UNIT capsule 1,000 unit PO DAILY omeprazole 20 mg capsule,delayed release(DR/EC) 20 mg PO DAILY Label Comments: TAKE 1 CAPSULE BY MOUTH DAILY BEFORE BREAKFAST. 1/2 HR BEFORE MEAL. hydrocodone-acetaminophen 5-325 mg tablet 0.5 tab PO PRN PRN (Reason: Pain) Label Comments: TAKE 1/2 A PILL BY MOUTH TWO TIMES A DAY FOR 28 DAYS metoprolol succinate 50 mg tablet extended release 24 hr 50 mg PO DAILY Qty: 30 0RF warfarin 3 mg tablet 3 mg PO .COMPLEX Qty: 90 3RF Protocol: Dose Management Condition: Thursday Dose/Route: 1.5 mg Instruction: 0.5 x 3 mg tablets Condition: Thursday Dose/Route: 3 mg Instruction: 1 x 3 mg tablet Condition: Thursday Dose/Route: 3 mg Instruction: 1 x 3 mg tablet Condition: Thursday Dose/Route: 1.5 mg Instruction: 0.5 x 3 mg tablets Condition: Dose/Route: 1.5 mg Instruction: 0.5 x 3 mg tablets Condition: Thursday Dose/Route: 1.5 mg Instruction: 0.5 x 3 mg tablets Condition: Thursday Dose/Route: 1.5 mg Instruction: 0.5 x 3 mg tablets Protocol Text: Adjustment Start Date: Thursday08/11/22 INR Value: 2.7 INR Date: 08/11/22 Recheck Date: 09/01/22 Rx Instructions: 3 mg orally 1 tablet daily on Thu,Thu,, ; and 1/2 tablet (1.5 mg) on Thu, Thu, and Sun; OR DIRECTED; warfarin 1 mg tablet 1 mg PO .COMPLEX Qty: 30 11RF Protocol: Dose Management Condition: Thursday Dose/Route: 1.5 mg Instruction: 0.5 x 3 mg tablets Condition: Thursday Dose/Route: 3 mg Instruction: 1 x 3 mg tablet Condition: Thursday Dose/Route: 3 mg Instruction: 1 x 3 mg tablet Condition: Thursday Dose/Route: 1.5 mg Instruction: 0.5 x 3 mg tablets Condition: Dose/Route: 1.5 mg Instruction: 0.5 x 3 mg tablets Condition: Thursday Dose/Route: 1.5 mg Instruction: 0.5 x 3 mg tablets Condition: Thursday Dose/Route: 1.5 mg Instruction: 0.5 x 3 mg tablets Protocol Text: Adjustment Start Date: Thursday08/11/22 INR Value: 2.7 INR Date: 08/11/22 Recheck Date: 09/01/22 Rx Instructions: 1 mg orally daily or as directed while on antibiotics; lisinopril 20 mg tablet See Rx Instructions .ROUTE .COMPLEX Qty: 90 3RF Dose Instruction: TAKE 1 TABLET BY MOUTH EVERY DAY Rx Instructions: TAKE 1 TABLET BY MOUTH EVERY DAY Primary Care Provider: Cheyanne Holt Referrals: Cheyanne Holt MD [Primary Care Provider] - 3-5 Days Disposition Disposition: Home, Self Care
--- NOTE | 2022-08-17 13:23 | RAD_ITS ---
HISTORY: SOB. TECHNIQUE: XR Chest 1 View. COMPARISON: 07/06/2022. FINDINGS: CARDIOMEDIASTINAL BORDERS: Unchanged cardiomegaly with pacemaker, listhesis, and closure device. Mediastinal contour unchanged with midline sternotomy. LUNGS: Chronic linear opacities from atelectasis or scarring in the lung bases. PLEURA: No pleural effusion or pneumothorax seen. OSSEOUS STRUCTURES: Unchanged appearance with osteopenia. RAD/Chest 1 View (Portable) IMPRESSION: No significant interval change. Chronic atelectasis or scarring in the lung bases. Electronically Signed: Dinorah Salazar MD at 13:34 EDT ,
[2022-08-17] MEDS: Ipratropium/Albuterol Sulfate 3 ML AMPUL.NEB INHALATION (13:25)
[2022-08-17 13:27] VITALS: PULSE 81; RESP 20; O2SAT 93
[2022-08-17 13:27] LABS: Absolute Lymphocyte Count 1.03 X10^3/uL (0.83-4.51); Absolute Neutrophil Count 4.7 X10^3/uL (2.0-7.7); Basophil# 0.08 X10^3/uL; Basophil% 1.3 % (0-1); Eosinophils% 1.6 % (0-5); Hematocrit 46.6 % (37-47); Hemoglobin 14.6 g/dL (12.0-15.0); Lymphocyte # 1.03 X10^3/ul (0.83-4.51); Lymphocyte % 16.1 % (19-41); Mean Corp Hgb Conc 31.3 g/dL (32-36); Mean Corpuscular Hgb 26.4 pg (27.0-32.0); Mean Corpuscular Volume 84.1 fL (81-99); Mean Platelet Vol. 10.4 fl (6.2-12.0); Monocyte# 0.51 X10^3/uL; NRBC Flagged by Analyzer 0 % (0-5); Neutrophil # 4.66 X10^3/uL (2.7-7.7); Neutrophil % 72.8 % (47-70); Platelet Count 213 K/mm3 (150-450); RBC Distribution Width SD 48.7 fl (35.1-43.9); Red Blood Count 5.54 M/mm3 (4.2-5.4); White Blood Count 6.4 K/mm3 (4.4-11.0)
[2022-08-17 13:38] LABS: International Normalized Ratio 3.2; Prothrombin Time (Protime)PT. 32.5 SECONDS (11.7-14.9)
[2022-08-17 13:43] LABS: Anion Gap 6 (5-15); BUN 14 mg/dL (7-18); BUN/Creat Ratio 15.3 RATIO (10-20); Calcium,Total 9.2 mg/dL (8.5-10.1); Chloride 106 mmol/L (98-107); Creatinine, Serum 0.91 mg/dL (0.55-1.02); EST Glomerular Filtration Rate 62 mL/min (>60); Est Glom Filt Rate - Afr Amer 76 mL/min (>60); Estimated Creatinine Clearance 43.85 ml/min; Glucose 101 mg/dL (74-106); Sodium Level 140 mmol/L (136-145); Troponin-I HS 29 pg/mL (3.0-54.0)
[2022-08-17 15:12] VITALS: BP 138/79; PULSE 71; RESP 15; O2SAT 97
== END 2022-08-17 15:15 | disposition home or self-care (01) ==
PROVIDERS: Emergency Provider Emergency Medicine; PCP Internal Medicine; Visit Provider Emergency Medicine
DX: R00.2 Palpitations (principal); J44.9 Chronic obstructive pulmonary disease, unspecified; I11.0 Hypertensive heart disease with heart failure; I42.1 Obstructive hypertrophic cardiomyopathy; I50.32 Chronic diastolic (congestive) heart failure; I48.0 Paroxysmal atrial fibrillation; J98.01 Acute bronchospasm; E78.5 Hyperlipidemia, unspecified; Z99.81 Dependence on supplemental oxygen; Z79.01 Long term (current) use of 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; Z79.899 Other long term (current) drug therapy; Z95.0 Presence of cardiac pacemaker; Z87.891 Personal history of nicotine dependence
CPT/HCPCS: 71045; 80048; 84484; 85025; 85610; 93005; 94640; 99251; 99284; A4216; G0463

== ENCOUNTER 2022-08-23 19:21 | Emergency (ER) | payer MEDICARE, SELFPAY ==
[2022-08-23 19:22] VITALS: BP 162/111; PULSE 106; RESP 17; TEMP 36.2; O2SAT 95; BMI 24.1
--- NOTE | 2022-08-23 19:47 | CT_ITS ---
STUDY: CT ABDOMEN AND PELVIS WITH CONTRAST REASON FOR EXAM: Female, 82 years old. flank injury RADIATION DOSAGE (If Supplied By Facility): CTDIvol = ( 24.64 ) mGy, DLP = ( 789.72 ) mGycm TECHNIQUE: Transaxial images were obtained from the dome of the diaphragm to the symphysis pubis without oral contrast. IV 100mL Isovue-[id number] was administered. Sagittal and coronal images were reconstructed. Individualized dose optimization techniques were used for this CT. COMPARISON: None. FINDINGS: The visualized lung bases are unremarkable. Cardiomegaly. 3 cm cyst in the posterior segment the right lobe of the liver. There are multiple gallstones. Multiple small splenic cysts. Normal pancreas. There is a small, circumscribed, smooth, low attenuation left adrenal mass, consistent with an adrenal adenoma. Normal right adrenal gland. Normal right kidney. Normal left kidney. Normal visualized stomach. Normal small intestine. There are multiple colonic diverticula consistent with diverticulosis. Focal asymmetric wall thickening of the sigmoid colon on images 83 and 84 and correlation with endoscopy would be useful to exclude mass. The appendix is visualized and appears normal. Normal abdominal aorta. Normal inferior vena cava. Normal retroperitoneum. Normal urinary bladder. Calcified degenerated fibroids in the uterus. Normal abdominal wall. Normal osseous structures. CT/Abdomen/Pelvis W IV Cont ONLY IMPRESSION: 1. No solid organ or bowel injury. 2. Cholelithiasis. 3. Sigmoid diverticulosis with asymmetric wall thickening worrisome for inflammation or mass. Correlation with endoscopy may be useful. Electronically Signed: Jerome Huggins MD at 21:59 EDT ,
--- NOTE | 2022-08-23 19:54 | EDS_ITS ---
HPI <Dr. Gerry Gamino DO - Last Filed: 08/31/22 04:31> History of Present Illness Chief Complaint: Fall Informant: patient Narrative Narrative: Left flank injury occurring yesterday while walking her dog. She states a cat came out scared her following back hitting sticks or brooms. There is bruising to the back. She is on warfarin for history of atrial fibrillation. No head injuries. She had a spinal injection 2 days ago followed by Dr. Rodríguez. She is on gabapentin and hydrocodone. She states her back pain from injections improving. Pain from the injury is increased. She ambulates with a cane. Prior similar symptoms: No PFSH <Dr. Gerry Gamino, - Last Filed: 08/31/22 04:31> PFSH Medical History Atrial fibrillation Atrial fibrillation and flutter Atrial flutter with rapid ventricular response Bladder cancer Chronic diastolic heart failure COPD (chronic obstructive pulmonary disease) Essential hypertension Essential hypertension Former smoker Hyperlipidemia Hypertrophic obstructive cardiomyopathy (HOCM) LBBB (left bundle branch block) Long QT interval Non-Hodgkin lymphoma Nonrheumatic mitral (valve) insufficiency On home oxygen therapy Paroxysmal atrial fibrillation Persistent atrial fibrillation Polyp, sigmoid colon Presence of permanent cardiac pacemaker (~12/10/21) Sick sinus syndrome Home Medications magnesium oxide 400 mg PO DAILY supplement 04/06/19 [History Last Taken 04/08/22] potassium chloride 20 mEq tablet,extended release 20 meq PO DAILY PRN supplement- with lasix 03/17/22 [History Last Taken Unknown] omeprazole 20 mg capsule,delayed release 20 mg PO DAILY PRN GERD 04/09/22 [History Last Taken 04/08/22] warfarin 3 mg tablet 3 mg PO .COMPLEX #90 tabs 06/10/22 [Rx Last Taken Unknown] hydrocodone-acetaminophen 5-325mg 5mg-325mg 0.5 tab PO PRN PRN Pain 07/05/22 [History Last Taken Unknown] warfarin 1 mg tablet 1 mg PO .COMPLEX #30 tabs 07/16/22 [Rx Last Taken Unknown] methocarbamol 500 mg tablet 500 mg PO TID PRN Muscle pain/spasm #30 tabs 08/24/22 [Rx Last Taken Unknown] oxycodone 5 mg tablet 5 mg PO Q6H PRN pain 5 days #20 tabs 08/25/22 [Rx Last Taken Unknown] lisinopril 20 mg tablet 20 mg PO DAILY 08/26/22 [History Last Taken Unknown] Allergy/AdvReac Type Severity Reaction Status Date / Time allopurinol Allergy Rash Verified 08/26/22 04:39 tramadol AdvReac dizzy Verified 08/26/22 04:39 Family History Father Heart disease Hypertension Mother No cardiac disease Surgical History History of bladder surgery History of cardioversion (~04/25/20) History of left heart catheterization (LHC) (~11/30/17) History of mitral valve repair (~07/30/18) History of ventricular septal myectomy (~07/30/18) Social History household members: none Smoking Status: Former smoker pack-years: 58 how long ago did patient quit smokin years ago alcohol intake: never substance use type: does not use caffeine: No what type of physical activity do you participate in: walking ROS <Dr. Gerry Gamino, DO - Last Filed: 08/31/22 04:31> ROS ED Constitutional Constitutional ED: Denies chills, fever(s) or sweats Eyes Eyes: Denies change in vision ENT ENT ED: Denies dysphagia or sore throat Cardiovascular Cardiovascular: Denies chest pain, leg edema, palpitations or racing heartbeat Respiratory/Chest Respiratory/Chest: Denies cough, dyspnea or dyspnea on exertion Gastrointestinal Gastrointestinal: Denies abdominal pain, diarrhea, nausea or vomiting Genitourinary Genitourinary ED: Denies dysuria, hematuria or urinary frequency Musculoskeletal Musculoskeletal: Reports back pain; Denies extremity pain or neck pain Integumentary Denies rash or wounds Neurologic Neurologic: Denies headache(s), paresthesias or weakness EXAM <Dr. Gerry Gamino, DO - Last Filed: 08/31/22 04:31> Physical Exam Const Vital Signs: 08/23/22 19:22 08/23/22 19:33 08/23/22 20:03 Temperature 97.1 F L Temperature Source Temporal Pulse Rate 106 H Respiratory Rate 17 Respiratory Effort Normal Short of Breath Blood Pressure 162/111 H Blood Pressure Mean 128 Pulse Ox 95 Oxygen Delivery Method Room Air Room Air 08/23/22 21:01 08/23/22 22:17 08/24/22 00:00 Temperature Temperature Source Pulse Rate 103 H 99 84 Respiratory Rate 30 H 18 Respiratory Effort Blood Pressure 157/111 H 168/108 H 168/102 H Blood Pressure Mean 128 124 Pulse Ox 95 94 Oxygen Delivery Method Room Air Room Air Positive well nourished and well developed General Appearance ED: well developed and NAD HEENT Reports moist mucous membranes normocephalic and atraumatic Eyes PERRL, EOMs intact bilaterally and conjunctivae normal General Eye ED: Yes normal appearance of both eyes Neck no lymphadenopathy and supple General: Negative for tenderness Chest Wall Chest: Negative for tenderness Resp normal respiratory effort and normal air movement Effort and Inspection: symmetric chest movement; Negative for respiratory distress Cardio regular rate, regular rhythm and no murmurs Peripheral Pulses: pulses 2+ throughout GI normal to inspection, nondistended, normoactive bowel sounds and non-tender Palpation: Negative for guarding or rebound tenderness present Back/Spine no thoracic nor lumbar tenderness Back/Spine Narrative: No midline tenderness left flank contusion noted no active bleeding. Skin intact. Extremity normal to inspection General Extremety ED: Negative for edema or tenderness General Extremity: Negative for edema Neuro oriented x3 and no sensory deficits noted Sensorium / Orientation: awake and alert Skin Skin Narrative: Right antecubital ecchymosis, reported secondary from IV placement 2 days ago. <Dr. Jeremy Mendez, DO - Last Filed: 08/24/22 00:10> Physical Exam Const Vital Signs: 08/23/22 19:22 08/23/22 19:33 08/23/22 20:03 Temperature 97.1 F L Temperature Source Temporal Pulse Rate 106 H Respiratory Rate 17 Respiratory Effort Normal Short of Breath Blood Pressure 162/111 H Blood Pressure Mean 128 Pulse Ox 95 Oxygen Delivery Method Room Air Room Air 08/23/22 21:01 08/23/22 22:17 08/24/22 00:00 Temperature Temperature Source Pulse Rate 103 H 99 84 Respiratory Rate 30 H 18 Respiratory Effort Blood Pressure 157/111 H 168/108 H 168/102 H Blood Pressure Mean 128 124 Pulse Ox 95 94 Oxygen Delivery Method Room Air Room Air MDM <Dr. Gerry Gamino, DO - Last Filed: 08/31/22 04:31> MDM MDM Narrative Medical decision making narrative: Patient left flank contusion on warfarin therapy. Initial trauma scans. Labs White count 13.5 hemoglobin 15.2. Creatinine 1.01. INR 3.8. Prior to CT scan she developed chest pains in the ED EKG chronic atrial flutter. Initial troponin obtained at 38 1 nitro helped with symptoms. She symptom-free on repeat exam. Initial fentanyl for pain control. CT scan negative for organ injury. Additional fentanyl was given on reevaluation. She is chest pain-free. With acute onset of chest symptoms, awaiting 2-hour troponin. If negative she will be discharged with outpatient follow-up. She is on hydrocodone and gabapentin through pain management. Lab Data Attestation: I reviewed the patient's lab results. Labs: Laboratory Results - last 24 hr 08/23/22 08/23/22 08/23/22 20:20 20:20 20:20 WBC 13.5 H RBC 5.69 H Hgb 15.2 H Hct 48.7 H MCV 85.6 MCH 26.7 L MCHC 31.2 L RDW Std Deviation 49.9 H RDW Coeff of Neelima 16.3 H Plt Count 280 MPV 11.2 Immature Gran % (Auto) 0.500 Neut % (Auto) 79.0 H Lymph % (Auto) 13.6 L [place] % (Auto) 6.4 Eos % (Auto) 0.1 Baso % (Auto) 0.4 Absolute Neuts (auto) 10.7 H Absolute Lymphs (auto) 1.84 Nucleated RBC % 0 PT 37.2 H INR 3.8 APTT 44.3 H Sodium 137 Potassium 4.8 Chloride 106 Carbon Dioxide 24.0 Anion Gap 7 BUN 25 H Creatinine 1.01 Estim Creat Clear Calc 37.98 Est GFR (MDRD) Af Amer 67 Est GFR (MDRD) Non-Af 56 L BUN/Creatinine Ratio 24.8 H Glucose 129 H Calcium 9.6 Troponin I High Sens 08/23/22 08/23/22 20:59 23:22 WBC RBC Hgb Hct MCV MCH MCHC RDW Std Deviation RDW Coeff of Neelima Plt Count MPV Immature Gran % (Auto) Neut % (Auto) Lymph % (Auto) [place] % (Auto) Eos % (Auto) Baso % (Auto) Absolute Neuts (auto) Absolute Lymphs (auto) Nucleated RBC % PT INR APTT Sodium Potassium Chloride Carbon Dioxide Anion Gap BUN Creatinine Estim Creat Clear Calc Est GFR (MDRD) Af Amer Est GFR (MDRD) Non-Af BUN/Creatinine Ratio Glucose Calcium Troponin I High Sens 38 33 Radiography Diagnostic Testing: Clinical Impression(s) from Imaging Studies Abdomen/Pelvis CT 08/23/22 19:47 IMPRESSION: 1. No solid organ or bowel injury. 2. Cholelithiasis. 3. Sigmoid diverticulosis with asymmetric wall thickening worrisome for inflammation or mass. Correlation with endoscopy may be useful. Electronically Signed: Jeroem Huggins MD at 21:59 EDT , EKG Initial EKG: Attestation: I personally reviewed and interpreted this EKG as follows: Comments: Atrial flutter rate of 100, T wave inversion lateral leads similar from a week ago. <Dr. Jeremy Mendez, DO - Last Filed: 08/24/22 00:10> [facility] Lab Data Labs: Laboratory Results - last 24 hr 08/23/22 08/23/22 08/23/22 20:20 20:20 20:20 WBC 13.5 H RBC 5.69 H Hgb 15.2 H Hct 48.7 H MCV 85.6 MCH 26.7 L MCHC 31.2 L RDW Std Deviation 49.9 H RDW Coeff of Neelima 16.3 H Plt Count 280 MPV 11.2 Immature Gran % (Auto) 0.500 Neut % (Auto) 79.0 H Lymph % (Auto) 13.6 L [place] % (Auto) 6.4 Eos % (Auto) 0.1 Baso % (Auto) 0.4 Absolute Neuts (auto) 10.7 H Absolute Lymphs (auto) 1.84 Nucleated RBC % 0 PT 37.2 H INR 3.8 APTT 44.3 H Sodium 137 Potassium 4.8 Chloride 106 Carbon Dioxide 24.0 Anion Gap 7 BUN 25 H Creatinine 1.01 Estim Creat Clear Calc 37.98 Est GFR (MDRD) Af Amer 67 Est GFR (MDRD) Non-Af 56 L BUN/Creatinine Ratio 24.8 H Glucose 129 H Calcium 9.6 Troponin I High Sens 08/23/22 08/23/22 20:59 23:22 WBC RBC Hgb Hct MCV MCH MCHC RDW Std Deviation RDW Coeff of Neelima Plt Count MPV Immature Gran % (Auto) Neut % (Auto) Lymph % (Auto) [place] % (Auto) Eos % (Auto) Baso % (Auto) Absolute Neuts (auto) Absolute Lymphs (auto) Nucleated RBC % PT INR APTT Sodium Potassium Chloride Carbon Dioxide Anion Gap BUN Creatinine Estim Creat Clear Calc Est GFR (MDRD) Af Amer Est GFR (MDRD) Non-Af BUN/Creatinine Ratio Glucose Calcium Troponin I High Sens 38 33 Radiography Diagnostic Testing: Clinical Impression(s) from Imaging Studies Abdomen/Pelvis CT 08/23/22 19:47 IMPRESSION: 1. No solid organ or bowel injury. 2. Cholelithiasis. 3. Sigmoid diverticulosis with asymmetric wall thickening worrisome for inflammation or mass. Correlation with endoscopy may be useful. Electronically Signed: Jerome Huggins MD at 21:59 EDT , Treatment and Re-Evaluation Narrative: Patient was signed out to me while awaiting the delta troponin. Her 2-hour delta troponin actually decreased from 38-33 indicating no signs of acute cardiac injury. The patient was witnessed able to ambulate with a steady gait and therefore with negative work-up and decreasing troponin there is no need to keep her in the hospital and patient is otherwise safe for discharge. Discharge Plan Triage Chief Complaint: Fall ED Provider: Geryr Gamino Dx/Rx/DC Orders Clinical Impression: Contusion of lower back, Anticoagulant long-term use, Chest pain, Atrial flutter Instructions: ED Atrial Flutter, ED Back Contusion, ED Chest Pain, Uncertain Cause Prescriptions: New methocarbamol 500 mg tablet 500 mg PO TID PRN (Reason: Muscle pain/spasm) Qty: 30 0RF No Action magnesium oxide 400 mg magnesium tablet 400 mg PO DAILY potassium chloride 20 mEq tablet extended release 20 meq PO DAILY PRN (Reason: supplement- with lasix) omeprazole 20 mg capsule,delayed release(DR/EC) 20 mg PO DAILY PRN (Reason: GERD) Label Comments: TAKE 1 CAPSULE BY MOUTH DAILY BEFORE BREAKFAST. 1/2 HR BEFORE MEAL. hydrocodone-acetaminophen 5-325 mg tablet 0.5 tab PO PRN PRN (Reason: Pain) Label Comments: TAKE 1/2 A PILL BY MOUTH TWO TIMES A DAY FOR 28 DAYS oxycodone 5 mg tablet 5 mg PO Q6H PRN (Reason: pain) 5 Days Qty: 20 0RF lisinopril 20 mg tablet 20 mg PO DAILY warfarin 3 mg tablet 3 mg PO .COMPLEX Qty: 90 3RF Protocol: Dose Management Condition: Thursday Dose/Route: 1.5 mg Instruction: 0.5 x 3 mg tablets Condition: Thursday Dose/Route: 3 mg Instruction: 1 x 3 mg tablet Condition: Thursday Dose/Route: 3 mg Instruction: 1 x 3 mg tablet Condition: Thursday Dose/Route: 1.5 mg Instruction: 0.5 x 3 mg tablets Condition: Dose/Route: 1.5 mg Instruction: 0.5 x 3 mg tablets Condition: Thursday Dose/Route: 1.5 mg Instruction: 0.5 x 3 mg tablets Condition: Thursday Dose/Route: 1.5 mg Instruction: 0.5 x 3 mg tablets Protocol Text: Adjustment Start Date: Thursday08/11/22 INR Value: 2.7 INR Date: 08/11/22 Recheck Date: 09/01/22 Rx Instructions: 3 mg orally 1 tablet daily on Thu,Thu,, ; and 1/2 tablet (1.5 mg) on Thu, Thu, and Sun; OR DIRECTED; warfarin 1 mg tablet 1 mg PO .COMPLEX Qty: 30 11RF Protocol: Dose Management Condition: Thursday Dose/Route: 1.5 mg Instruction: 0.5 x 3 mg tablets Condition: Thursday Dose/Route: 3 mg Instruction: 1 x 3 mg tablet Condition: Thursday Dose/Route: 3 mg Instruction: 1 x 3 mg tablet Condition: Thursday Dose/Route: 1.5 mg Instruction: 0.5 x 3 mg tablets Condition: Dose/Route: 1.5 mg Instruction: 0.5 x 3 mg tablets Condition: Thursday Dose/Route: 1.5 mg Instruction: 0.5 x 3 mg tablets Condition: Thursday Dose/Route: 1.5 mg Instruction: 0.5 x 3 mg tablets Protocol Text: Adjustment Start Date: Thursday08/11/22 INR Value: 2.7 INR Date: 08/11/22 Recheck Date: 09/01/22 Rx Instructions: 1 mg orally daily or as directed while on antibiotics; Primary Care Provider: Cheyanne Holt Referrals: Cheyanne Holt MD [Primary Care Provider] - 3-5 Days Activity Restrictions/Additional Instructions: CT scan abdomen pelvis negative for organ injury. Continue hydrocodone and gabapentin. He developed chest pain in the ED EKG is atrial flutter rate controlled. Cardiac work-up negative. Your INR is 3.8 today. Hold your warfarin for 1 day then restart. Follow-up with your doctor. Disposition Disposition: Home, Self Care Discharge Date/Time: 08/24/22 00:14
--- NOTE | 2022-08-23 19:58 | EKG12_ITS ---
Test Reason : CP Blood Pressure : / mmHG Vent. Rate : 100 BPM Atrial Rate : 330 BPM P-R Int : 000 ms QRS Dur : 132 ms QT Int : 420 ms P-R-T Axes : 096 -23 137 degrees QTc Int : 541 ms Atrial flutter with variable A-V block Left bundle branch block Abnormal ECG Confirmed by RIVAS FORTUNE, AG ([id number]), editorial intern NAYELI NEGRON ([id number]) on 08/26/2022 1:31:29 PM Referred By: TL Confirmed By:AG HATHAWAY MD
[2022-08-23] MEDS: fentaNYL 100 MCG/2 ML Ampul 25 MCG IV ×2 (20:17→22:15)
[2022-08-23] MEDS: 0.9% Normal Saline 1,000 ML 125 ML IV (20:17)
[2022-08-23 20:33] LABS: Absolute Lymphocyte Count 1.84 X10^3/uL (0.83-4.51); Absolute Neutrophil Count 10.7 X10^3/uL (2.0-7.7); Basophil# 0.05 X10^3/uL; Basophil% 0.4 % (0-1); Eosinophil# 0.01 X10^3/uL; Eosinophils% 0.1 % (0-5); Hematocrit 48.7 % (37-47); Hemoglobin 15.2 g/dL (12.0-15.0); Lymphocyte # 1.84 X10^3/ul (0.83-4.51); Lymphocyte % 13.6 % (19-41); Mean Corp Hgb Conc 31.2 g/dL (32-36); Mean Corpuscular Hgb 26.7 pg (27.0-32.0); Mean Corpuscular Volume 85.6 fL (81-99); Mean Platelet Vol. 11.2 fl (6.2-12.0); Monocyte# 0.86 X10^3/uL; Monocyte% 6.4 % (0-10); NRBC Flagged by Analyzer 0 % (0-5); Neutrophil # 10.68 X10^3/uL (2.7-7.7); Platelet Count 280 K/mm3 (150-450); RBC Distribution Width CV 16.3 % (11.6-14.6); RBC Distribution Width SD 49.9 fl (35.1-43.9); Red Blood Count 5.69 M/mm3 (4.2-5.4); White Blood Count 13.5 K/mm3 (4.4-11.0)
[2022-08-23 20:50] LABS: Anion Gap 7 (5-15); BUN 25 mg/dL (7-18); BUN/Creat Ratio 24.8 RATIO (10-20); Calcium,Total 9.6 mg/dL (8.5-10.1); Chloride 106 mmol/L (98-107); Creatinine, Serum 1.01 mg/dL (0.55-1.02); EST Glomerular Filtration Rate 56 mL/min (>60); Est Glom Filt Rate - Afr Amer 67 mL/min (>60); Estimated Creatinine Clearance 37.98 ml/min; Glucose 129 mg/dL (74-106); Potassium 4.8 mmol/L (3.5-5.1); Sodium Level 137 mmol/L (136-145)
[2022-08-23 21:01] VITALS: BP 157/111; PULSE 103
[2022-08-23] MEDS: Nitroglycerin SL (ED/IMG/CATH) 0.4 MG TABLET SL (21:01)
[2022-08-23 21:07] LABS: International Normalized Ratio 3.8; Prothrombin Time (Protime)PT. 37.2 SECONDS (11.7-14.9)
[2022-08-23 21:08] LABS: Partial Thromboplast Time 44.3 Seconds (24.1-36.2)
[2022-08-23 21:30] LABS: Troponin-I HS (w/2H Reflex) 38 pg/mL (3.0-54.0)
[2022-08-23 22:17] VITALS: BP 168/108; PULSE 99; RESP 30; O2SAT 95
[2022-08-23 23:15] LABS: Reflex Troponin-HS? (from REC) Y
[2022-08-23 23:53] LABS: Troponin-I HS 33 pg/mL (3.0-54.0)
--- NOTE | 2022-08-23 23:56 | ED.RN ---
This RN walked into pt room. Pt had accidentally taken out IV and had blood on arms, bed and floor. IV intact on floor. Cleaned by this RN and notified Dr. Mendez.
[2022-08-24] VITALS: BP 168/102; PULSE 84; RESP 18; O2SAT 94
== END 2022-08-24 00:14 | disposition home or self-care (01) ==
PROVIDERS: Emergency Provider Emergency Medicine; PCP Internal Medicine; Visit Provider Emergency Medicine
DX: S20.229A Contusion of unspecified back wall of thorax, initial encounter (principal); S30.1XXA Contusion of abdominal wall, initial encounter; S50.11XA Contusion of right forearm, initial encounter; W01.10XA Fall on same level from slipping, tripping and stumbling with subsequent striking against unspecified object, initial encounter; R07.9 Chest pain, unspecified; Y93.K1 Activity, walking an animal; I11.0 Hypertensive heart disease with heart failure; I50.32 Chronic diastolic (congestive) heart failure; J44.9 Chronic obstructive pulmonary disease, unspecified; I42.1 Obstructive hypertrophic cardiomyopathy; I48.91 Unspecified atrial fibrillation; I48.92 Unspecified atrial flutter; E78.5 Hyperlipidemia, unspecified; Z79.01 Long term (current) use of 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; Z99.81 Dependence on supplemental oxygen; Z79.899 Other long term (current) drug therapy; Z87.891 Personal history of nicotine dependence; Z95.0 Presence of cardiac pacemaker
CPT/HCPCS: 74177; 80048; 84484; 85025; 85610; 85730; 93005; 96374; 96376; 99283; J7030; Q9967; A4216

== ENCOUNTER 2022-08-25 07:09 | Emergency (ER) | payer MEDICARE, SELFPAY ==
[2022-08-25 07:11] VITALS: BP 121/103; PULSE 93; RESP 16; TEMP 36.6; O2SAT 94; BMI 26.0
[2022-08-25 07:15] VITALS: BP 130/98
--- NOTE | 2022-08-25 07:46 | EDS_ITS ---
HPI History of Present Illness Chief Complaint: Back Informant: patient Narrative Narrative: 2-year-old female arriving to the emergency department via EMS with a chief complaint of back pain. Patient states that on Thursday she was out walking with her dog when she believes a unknown Assailant crossed her feet causing her to fall backwards striking a stack of chairs a stick or something on her back. She did not fall to the ground. She is on Coumadin for atrial fibrillation. She states that she has bruising was seen in the emergency department 2 days ago and underwent an MRI that did not show any fracture or bleeding from her kidney. She states that whenever she moves she continues to have sharp pain. She states she did not get a sleep anything last night. She is in pain management for chronic back pain and is prescribed gabapentin and hydrocodone and she states that her hydrocodone is not helping with the pain but she is only taking it 1/2 pill a day. She reports being prescribed a muscle relaxant which has not helped. She does not feel that she needs to be admitted to a rehab facility or into the hospital. [facility] Medical History Atrial fibrillation Atrial fibrillation and flutter Atrial flutter with rapid ventricular response Bladder cancer Chronic diastolic heart failure COPD (chronic obstructive pulmonary disease) Essential hypertension Essential hypertension Former smoker Hyperlipidemia Hypertrophic obstructive cardiomyopathy (HOCM) LBBB (left bundle branch block) Long QT interval Non-Hodgkin lymphoma Nonrheumatic mitral (valve) insufficiency On home oxygen therapy Paroxysmal atrial fibrillation Persistent atrial fibrillation Polyp, sigmoid colon Presence of permanent cardiac pacemaker (~12/10/21) Sick sinus syndrome Home Medications magnesium oxide 400 mg PO DAILY supplement 04/06/19 [History Last Taken 04/08/22] gabapentin 100 mg capsule 100 mg PO DAILY PRN Pain 10/16/21 [History Last Taken 04/08/22] potassium chloride 20 mEq tablet,extended release 20 meq PO DAILY PRN supplement- with lasix 03/17/22 [History Last Taken Unknown] omeprazole 20 mg capsule,delayed release 20 mg PO DAILY GERD 04/09/22 [History Last Taken 04/08/22] warfarin 3 mg tablet 3 mg PO .COMPLEX #90 tabs 06/10/22 [Rx Last Taken Unknown] hydrocodone-acetaminophen 5-325mg 5mg-325mg 0.5 tab PO PRN PRN Pain 07/05/22 [History Last Taken Unknown] furosemide 20 mg tablet 20 mg PO DAILY diuretic 07/08/22 [History Last Taken Unknown] warfarin 1 mg tablet 1 mg PO .COMPLEX #30 tabs 07/16/22 [Rx Last Taken Unknown] lisinopril 20 mg tablet See Rx Instructions .Route .COMPLEX #90 TABLETS 08/14/22 [Rx Last Taken Unknown] methocarbamol 500 mg tablet 500 mg PO TID PRN Muscle pain/spasm #30 tabs 08/24/22 [Rx Last Taken Unknown] oxycodone 5 mg tablet 5 mg PO Q6H PRN pain 5 days #20 tabs 08/25/22 [Rx Last Taken Unknown] Allergy/AdvReac Type Severity Reaction Status Date / Time allopurinol Allergy Rash Verified 08/25/22 07:15 tramadol AdvReac dizzy Verified 08/25/22 07:15 Family History Father Heart disease Hypertension Mother No cardiac disease Surgical History History of bladder surgery History of cardioversion (~04/25/20) History of left heart catheterization (LHC) (~11/30/17) History of mitral valve repair (~07/30/18) History of ventricular septal myectomy (~07/30/18) Social History household members: none Smoking Status: Former smoker pack-years: 58 how long ago did patient quit smokin years ago alcohol intake: never substance use type: does not use caffeine: No what type of physical activity do you participate in: walking ROS ROS ED Constitutional Constitutional ED: Denies chills or weight loss Eyes Eyes: Denies change in vision or diplopia ENT ENT ED: Denies ear pain, rhinorrhea or sore throat Cardiovascular Cardiovascular: Denies chest pain, orthopnea, palpitations or racing heartbeat Respiratory/Chest Respiratory/Chest: Denies cough, dyspnea or orthopnea Gastrointestinal Gastrointestinal: Denies abdominal pain, diarrhea, nausea or vomiting Genitourinary Genitourinary ED: Denies dysuria, hematuria or urinary frequency Musculoskeletal Musculoskeletal: Reports back pain; Denies arthralgias, myalgias or neck pain Integumentary Denies abscess or rash Neurologic Neurologic: Denies headache(s) or weakness Psychiatric Psychiatric: Denies anxiety, depression, suicidal ideation or suicidal thoughts Endocrine Endocrinology: Denies polydipsia, polyphagia or polyuria Allergic/Immunologic Allergic/Immunologic ED: Denies mouth swelling, tongue swelling or urticaria EXAM Physical Exam Const Vital Signs: 08/25/22 07:11 08/25/22 07:15 Temperature 98 F Temperature Source Oral Pulse Rate 93 Respiratory Rate 16 Blood Pressure 121/103 H 130/98 H Blood Pressure Mean 109 108 Pulse Ox 94 Oxygen Delivery Method Room Air Positive well nourished and well developed General Appearance ED: well developed HEENT Reports normocephalic, head/scalp atraumatic and moist mucous membranes Eyes PERRL and EOMs intact bilaterally Neck no lymphadenopathy, supple and no JVD Resp normal respiratory effort and clear to auscultation bilaterally Cardio regular rate, regular rhythm and no murmurs GI normal to inspection, nondistended, normoactive bowel sounds and non-tender Palpation: soft Back/Spine Back/Spine Narrative: Patient has painful range of motion. There is ecchymosis over the left CVA region that is purple in nature. There is no crepitance. Lung sounds are clear. Extremity normal to inspection General Extremety ED: Negative for edema General Extremity: Negative for edema Neuro oriented x3 and CN's II-XII intact bilaterally Sensorium / Orientation: alert Motor Exam: strength 5/5 throughout Psych mental status grossly normal Mood & Affect: Negative for depressed or tearful Skin no rashes or lesions noted and no wounds MDM MDM MDM Narrative Medical decision making narrative: I reviewed the CT scan that was performed 2 days ago. I think the patient most likely has a contusion/hematoma from the fall. I do not think at this point the patient is requiring hospitalization or admittance to a rehab facility nor is she requesting that. She was advised that this is going to be painful for some time. I can write for some oxycodone to try to help her with pain management o sergo the next few days. Patient is comfortable with this plan will return if worsening or concerns but would recommend primary care follow-up in 1 week Discharge Plan Triage Chief Complaint: Back ED Provider: Pato Danielson Dx/Rx/DC Orders Clinical Impression: Hematoma of left flank, Back pain, residential current use of anticoagulant, Atrial fibrillation and flutter Instructions: ED Hematoma Prescriptions: New oxycodone 5 mg tablet 5 mg PO Q6H PRN (Reason: pain) 5 Days Qty: 20 0RF No Action magnesium oxide 400 mg magnesium tablet 400 mg PO DAILY potassium chloride 20 mEq tablet extended release 20 meq PO DAILY PRN (Reason: supplement- with lasix) furosemide 20 mg tablet 20 mg PO DAILY Hold Instructions: Hold while taking 40mg dose. Follow up with your primary care provider about whether they want you to resume this dose. gabapentin 100 mg capsule 100 mg PO DAILY PRN (Reason: Pain) omeprazole 20 mg capsule,delayed release(DR/EC) 20 mg PO DAILY Label Comments: TAKE 1 CAPSULE BY MOUTH DAILY BEFORE BREAKFAST. 1/2 HR BEFORE MEAL. hydrocodone-acetaminophen 5-325 mg tablet 0.5 tab PO PRN PRN (Reason: Pain) Label Comments: TAKE 1/2 A PILL BY MOUTH TWO TIMES A DAY FOR 28 DAYS methocarbamol 500 mg tablet 500 mg PO TID PRN (Reason: Muscle pain/spasm) Qty: 30 0RF warfarin 3 mg tablet 3 mg PO .COMPLEX Qty: 90 3RF Protocol: Dose Management Condition: Thursday Dose/Route: 1.5 mg Instruction: 0.5 x 3 mg tablets Condition: Thursday Dose/Route: 3 mg Instruction: 1 x 3 mg tablet Condition: Thursday Dose/Route: 3 mg Instruction: 1 x 3 mg tablet Condition: Thursday Dose/Route: 1.5 mg Instruction: 0.5 x 3 mg tablets Condition: Dose/Route: 1.5 mg Instruction: 0.5 x 3 mg tablets Condition: Thursday Dose/Route: 1.5 mg Instruction: 0.5 x 3 mg tablets Condition: Thursday Dose/Route: 1.5 mg Instruction: 0.5 x 3 mg tablets Protocol Text: Adjustment Start Date: Thursday08/11/22 INR Value: 2.7 INR Date: 08/11/22 Recheck Date: 09/01/22 Rx Instructions: 3 mg orally 1 tablet daily on Thu,Thu,, ; and 1/2 tablet (1.5 mg) on Thu, Thu, and Sun; OR DIRECTED; warfarin 1 mg tablet 1 mg PO .COMPLEX Qty: 30 11RF Protocol: Dose Management Condition: Thursday Dose/Route: 1.5 mg Instruction: 0.5 x 3 mg tablets Condition: Thursday Dose/Route: 3 mg Instruction: 1 x 3 mg tablet Condition: Thursday Dose/Route: 3 mg Instruction: 1 x 3 mg tablet Condition: Thursday Dose/Route: 1.5 mg Instruction: 0.5 x 3 mg tablets Condition: Dose/Route: 1.5 mg Instruction: 0.5 x 3 mg tablets Condition: Thursday Dose/Route: 1.5 mg Instruction: 0.5 x 3 mg tablets Condition: Thursday Dose/Route: 1.5 mg Instruction: 0.5 x 3 mg tablets Protocol Text: Adjustment Start Date: Thursday08/11/22 INR Value: 2.7 INR Date: 08/11/22 Recheck Date: 09/01/22 Rx Instructions: 1 mg orally daily or as directed while on antibiotics; lisinopril 20 mg tablet See Rx Instructions .ROUTE .COMPLEX Qty: 90 3RF Dose Instruction: TAKE 1 TABLET BY MOUTH EVERY DAY Rx Instructions: TAKE 1 TABLET BY MOUTH EVERY DAY Primary Care Provider: Cheyanne Holt Referrals: Cheyanne Holt MD [Primary Care Provider] - 1 Week Disposition Disposition: Home, Self Care
[2022-08-25] MEDS: oxyCODONE 5 MG Tablet 10 MG PO (07:53)
== END 2022-08-25 08:15 | disposition home or self-care (01) ==
LOC: ED 07:52
PROVIDERS: Emergency Provider Emergency Medicine; PCP Internal Medicine; Visit Provider Emergency Medicine
DX: S30.1XXA Contusion of abdominal wall, initial encounter (principal); J44.9 Chronic obstructive pulmonary disease, unspecified; I11.0 Hypertensive heart disease with heart failure; I50.32 Chronic diastolic (congestive) heart failure; I42.1 Obstructive hypertrophic cardiomyopathy; I48.91 Unspecified atrial fibrillation; I48.0 Paroxysmal atrial fibrillation; E78.5 Hyperlipidemia, unspecified; M54.9 Dorsalgia, unspecified; G89.29 Other chronic pain; Z79.01 Long term (current) use of 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; Z79.899 Other long term (current) drug therapy; Z87.891 Personal history of nicotine dependence; Z99.81 Dependence on supplemental oxygen; Z95.0 Presence of cardiac pacemaker
CPT/HCPCS: 99284

== ENCOUNTER 2022-08-26 04:31 | Emergency (ER) | payer MEDICARE, SELFPAY ==
[2022-08-26 04:36] VITALS: BP 148/99; PULSE 88; RESP 17; TEMP 36.8; O2SAT 93; BMI 20.7
--- NOTE | 2022-08-26 05:05 | RAD_ITS ---
EXAM: XR CHEST, 1 VIEW CLINICAL INDICATION: chest pain TECHNIQUE: Frontal view of the chest. This report was created using [employer] report generation technology. COMPARISON: 08/17/2022. FINDINGS: LUNGS AND PLEURAL SPACES: Emphysema. Atelectasis or scarring left lung base unchanged. No pneumothorax. No effusion. HEART: Stable cardiomegaly. Postoperative changes including mitral valve replacement and left atrial appendage clamp. MEDIASTINUM: Central airways and mediastinal contour are unremarkable. BONES/JOINTS: Unremarkable. SOFT TISSUES: Unremarkable. TUBES, LINES AND DEVICES: No change pacemaker. RAD/Chest 1 View (Portable) IMPRESSION: 1. Emphysema. 2. Atelectasis or scarring left lung base unchanged. 3. Stable cardiomegaly. 4. No acute cardiopulmonary abnormality. Electronically Signed: Rafael Bird MD at 6:03 EDT ,
--- NOTE | 2022-08-26 05:05 | EKG12_ITS ---
Test Reason : SOB Blood Pressure : / mmHG Vent. Rate : 093 BPM Atrial Rate : 093 BPM P-R Int : 192 ms QRS Dur : 134 ms QT Int : 438 ms P-R-T Axes : 000 -33 148 degrees QTc Int : 544 ms Atrial flutter Left axis deviation Left bundle branch block Abnormal ECG Confirmed by RIVAS FORTUNE, AG ([id number]), general expeditor NAYELI NEGRON ([id number]) on 08/28/2022 10:32:00 AM Referred By: ARNOLD Confirmed By:AG HATHAWAY MD
--- NOTE | 2022-08-26 05:06 | ED.VIS.DYS ---
HPI History of Present Illness Chief Complaint: Shortness of Breath Informant: patient Onset/Context/Timing Onset: Today and Hours Context: gradual Timing: Continuous Current Severity: Mild Maximum Severity: Mild Worsened by: Nothing Relieved by: Nothing Associated Symptoms Negative for cough, rhinorrhea, fever, sore throat, subjective, chills, sweats or clear sputum Chest Pain: Positive for None Narrative Narrative: 82-year-old female extensive past medical history including CABG, mitral valve repair, A. fib, pacemaker, COPD, hypertension on chronic anticoagulation Coumadin due to A. fib. On home O2 as needed. Patient's been here twice in the last several days for fall and Excedrin. Tonight felt short of breath. She has oxygen at home as needed. She uses 2 L as needed. Said her pulse ox is in the mid to high 90s but she felt better with oxygen on tonight. Denies any chest pain. No fever. No cough. PE Risk Factors: Negative for OCP + Smoking + > 35, Prior DVT or PE, Recent immobilization, Recent surgery or Recent travel Prior similar symptoms: Yes Recent Illness/Hospitalization: No PFSH PFS Medical History Atrial fibrillation Atrial fibrillation and flutter Atrial flutter with rapid ventricular response Bladder cancer Chronic diastolic heart failure COPD (chronic obstructive pulmonary disease) Essential hypertension Essential hypertension Former smoker Hyperlipidemia Hypertrophic obstructive cardiomyopathy (HOCM) LBBB (left bundle branch block) Long QT interval Non-Hodgkin lymphoma Nonrheumatic mitral (valve) insufficiency On home oxygen therapy Paroxysmal atrial fibrillation Persistent atrial fibrillation Polyp, sigmoid colon Presence of permanent cardiac pacemaker (~12/10/21) Sick sinus syndrome Home Medications magnesium oxide 400 mg PO DAILY supplement 04/06/19 [History Last Taken 04/08/22] potassium chloride 20 mEq tablet,extended release 20 meq PO DAILY PRN supplement- with lasix 03/17/22 [History Last Taken Unknown] omeprazole 20 mg capsule,delayed release 20 mg PO DAILY GERD 04/09/22 [History Last Taken 04/08/22] warfarin 3 mg tablet 3 mg PO .COMPLEX #90 tabs 06/10/22 [Rx Last Taken Unknown] hydrocodone-acetaminophen 5-325mg 5mg-325mg 0.5 tab PO PRN PRN Pain 07/05/22 [History Last Taken Unknown] warfarin 1 mg tablet 1 mg PO .COMPLEX #30 tabs 07/16/22 [Rx Last Taken Unknown] methocarbamol 500 mg tablet 500 mg PO TID PRN Muscle pain/spasm #30 tabs 08/24/22 [Rx Last Taken Unknown] oxycodone 5 mg tablet 5 mg PO Q6H PRN pain 5 days #20 tabs 08/25/22 [Rx Last Taken Unknown] lisinopril 20 mg tablet 20 mg PO DAILY 08/26/22 [History Last Taken Unknown] Allergy/AdvReac Type Severity Reaction Status Date / Time allopurinol Allergy Rash Verified 08/26/22 04:39 tramadol AdvReac dizzy Verified 08/26/22 04:39 Family History Father Heart disease Hypertension Mother No cardiac disease Surgical History History of bladder surgery History of cardioversion (~04/25/20) History of left heart catheterization (LHC) (~11/30/17) History of mitral valve repair (~07/30/18) History of ventricular septal myectomy (~07/30/18) Social History household members: none Smoking Status: Former smoker pack-years: 58 how long ago did patient quit smokin years ago alcohol intake: never substance use type: does not use caffeine: No what type of physical activity do you participate in: walking ROS ROS ED ROS Narrative Shortness of breath. Denies nausea, vomiting, diarrhea or fever. Denies chest pain. Review of Systems ROS Unobtainable: Denies due to encephalopathy Constitutional Constitutional ED: Denies chills or fever(s) Eyes Eyes: Denies blurry vision ENT ENT ED: Denies ear pain Cardiovascular Cardiovascular: Denies chest pain or palpitations Respiratory/Chest Respiratory/Chest: Reports dyspnea; Denies cough Gastrointestinal Gastrointestinal: Denies abdominal pain, constipation, diarrhea, melena, nausea or vomiting Genitourinary Genitourinary ED: Denies dysuria Musculoskeletal Musculoskeletal: Denies arthralgias Integumentary Denies abscess Neurologic Neurologic: Denies headache(s) Psychiatric Psychiatric: Denies anxiety Endocrine Endocrinology: Denies cold intolerance Hematologic/Lymphatic Hematologic/Lymphatic: Denies easy bleeding Allergic/Immunologic Allergic/Immunologic ED: Denies mouth swelling or tongue swelling EXAM Physical Exam Narrative Exam Narrative: 82-year-old female vital signs are stable and afebrile. Her pulse ox is 93% on room air no hypoxia. No distress. H EENT exam unremarkable. Atraumatic. Pupils round reactive light. Moist mucous membranes. Neck nontender. Lungs clear to auscultation bilaterally. Heart regular rate in 90s. Chest wall nontender. Ribs nontender. Abdomen soft nontender. Normal bowel sounds no peritoneal signs. Moving all 4 extremities. Nontender. No deformity. No edema. Calves are nontender. Back she has a bruise from a recent fall on her left posterior rib cage and flank. Spine nontender. Neurologically she is awake and alert with no focal motor deficits. Const Vital Signs: 08/26/22 04:36 08/26/22 05:19 Temperature 98.2 F Temperature Source Temporal Pulse Rate 88 Respiratory Rate 17 Blood Pressure 148/99 H Blood Pressure Mean 115 Pulse Ox 93 97 Oxygen Delivery Method Room Air Nasal Cannula Oxygen Flow Rate (L/min) 1 Positive well nourished and well developed; Negative for obese, cachectic, contractures or unkempt General Appearance ED: well developed and NAD; Negative for unkempt, cachectic, contractures or pallor Nutritional Appearance: Negative for cachectic or obese HEENT Reports moist mucous membranes; Denies dry mucous membranes atraumatic; Negative for trauma or tenderness Mouth ED: No dry mucous membranes Mouth: No dry mucous membranes Eyes PERRL and EOMs intact bilaterally General Eye ED: Negative for pale conjunctiva or scleral icterus Neck no lymphadenopathy, supple, no meningeal signs and no JVD General: Negative for tenderness Lymph Lymphatic: Negative for other Resp normal respiratory effort and clear to auscultation bilaterally Effort and Inspection: Negative for pain with movement Auscultation: Negative for rales, rhonchi or wheezes Cardio regular rate, S1 normal heart sound, S2 normal heart sound and no murmurs; Negative for regular rhythm Cardio Narrative: Atrial flutter on the monitor with a rate about 90. Rate: Negative for bradycardia or tachycardic GI non-distended and no masses; Negative for non-tender Inspection: Negative for other Auscultation: normoactive bowel sounds Palpation: soft; Negative for tender Back/Spine no CVA tenderness and normal to inspection General Back: Negative for CVA tenderness or tenderness Extremity normal to inspection General Extremety ED: Negative for edema or tenderness General Extremity: Negative for edema Neuro oriented x3 [place] Coma Scale: document GCS findings Spontaneous Obeys Commands Oriented 15 Sensorium / Orientation: alert, oriented to person, oriented to place and oriented to time; Negative for orientation impaired, confused, lethargic or stuporous Speech: speech normal Motor Exam: strength 5/5 throughout Psych mental status grossly normal Appearance: Negative for unkempt Attitude: No agitated Mood & Affect: Negative for depressed, anxious or tearful Thought Process: normal thought process Skin no wounds Skin Narrative: Bruise/contusion left flank. General Skin Exam: Negative for jaundice or pallor Lesions: no lesions Rashes: no rashes Trauma: Negative for abrasion or laceration MDM MDM MDM Narrative Medical decision making narrative: 82-year-old seen here twice in the last several days from fall. She is on chronic Coumadin. For history of A. fib. Complaint shortness of breath. Exam is benign. Her vital signs are stable. Her pulse ox is in the mid 90s on room air. She will undergo a cardiac work-up. Repeat exam patient doing well at 5:47 AM exam unchanged. She and I went over all of her test results. She is resting comfortably. She is not hypoxic. She is in no distress. She is comfortable being discharged to home. Continue her current medications. Lab Data Attestation: I reviewed the patient's lab results. Lab results narrative: CBC unremarkable. White count 9. H&H of 14 and 47. Platelets 250. PT 25 INR 2.4. Chemistries unremarkable gap of 6. BUN and creatinine 21 and 0.9. Glucose 117. Troponin 30. Labs: Laboratory Results - last 24 hr 08/26/22 08/26/22 08/26/22 05:15 05:15 05:15 WBC 9.0 RBC 5.66 H Hgb 14.8 Hct 47.4 H MCV 83.7 MCH 26.1 L MCHC 31.2 L RDW Std Deviation 47.7 H RDW Coeff of Neelima 15.9 H Plt Count 250 MPV 10.7 Immature Gran % (Auto) 0.400 Neut % (Auto) 73.5 H Lymph % (Auto) 15.8 L Carbon % (Auto) 8.7 Eos % (Auto) 0.9 Baso % (Auto) 0.7 Absolute Neuts (auto) 6.6 Absolute Lymphs (auto) 1.43 Nucleated RBC % 0 PT 25.6 H INR 2.4 Sodium 141 Potassium 3.8 Chloride 107 Carbon Dioxide 28.0 Anion Gap 6 BUN 21 H Creatinine 0.91 Estim Creat Clear Calc 41.93 Est GFR (MDRD) Af Amer 75 Est GFR (MDRD) Non-Af 62 BUN/Creatinine Ratio 23.0 H Glucose 117 H Calcium 8.9 Troponin I High Sens 30 Radiography Chest X-Ray - ED: 1 View, Read by ED Physician, Heart, Lungs, Mediastinum, Bony Structures, No Acute Disease and Chronic Changes Diagnostic Testing: Chest x-ray, portable, single view interpreted by myself shows no acute abnormality. Chronic changes. No CHF. No effusions. No infiltrates. Borderline cardiomegaly. Left-sided pacemaker defibrillator. Rhythm Strip Rhythm Strip: A-fib (Atrial flutter) Rate: 93 Ectopy: None EKG Initial EKG: Attestation: I personally reviewed and interpreted this EKG as follows: Interpretation: No Acute Injury Pattern and Atrial Flutter Comments: Atrial flutter rate of 93. Left bundle branch block. No acute change from an EKG from 3 days ago. Prior EKG tracings: available for review Prior: Unchanged Discharge Plan Triage Chief Complaint: Shortness of Breath ED Provider: Arturo Killian Dx/Rx/DC Orders Clinical Impression: Acute dyspnea, Chronic anticoagulation, History of atrial fibrillation Instructions: ED Dyspnea Prescriptions: No Action magnesium oxide 400 mg magnesium tablet 400 mg PO DAILY potassium chloride 20 mEq tablet extended release 20 meq PO DAILY PRN (Reason: supplement- with lasix) omeprazole 20 mg capsule,delayed release(DR/EC) 20 mg PO DAILY PRN (Reason: GERD) Label Comments: TAKE 1 CAPSULE BY MOUTH DAILY BEFORE BREAKFAST. 1/2 HR BEFORE MEAL. hydrocodone-acetaminophen 5-325 mg tablet 0.5 tab PO PRN PRN (Reason: Pain) Label Comments: TAKE 1/2 A PILL BY MOUTH TWO TIMES A DAY FOR 28 DAYS methocarbamol 500 mg tablet 500 mg PO TID PRN (Reason: Muscle pain/spasm) Qty: 30 0RF oxycodone 5 mg tablet 5 mg PO Q6H PRN (Reason: pain) 5 Days Qty: 20 0RF lisinopril 20 mg tablet 20 mg PO DAILY warfarin 3 mg tablet 3 mg PO .COMPLEX Qty: 90 3RF Protocol: Dose Management Condition: Thursday Dose/Route: 1.5 mg Instruction: 0.5 x 3 mg tablets Condition: Thursday Dose/Route: 3 mg Instruction: 1 x 3 mg tablet Condition: Thursday Dose/Route: 3 mg Instruction: 1 x 3 mg tablet Condition: Thursday Dose/Route: 1.5 mg Instruction: 0.5 x 3 mg tablets Condition: Dose/Route: 1.5 mg Instruction: 0.5 x 3 mg tablets Condition: Thursday Dose/Route: 1.5 mg Instruction: 0.5 x 3 mg tablets Condition: Thursday Dose/Route: 1.5 mg Instruction: 0.5 x 3 mg tablets Protocol Text: Adjustment Start Date: Thursday08/11/22 INR Value: 2.7 INR Date: 08/11/22 Recheck Date: 09/01/22 Rx Instructions: 3 mg orally 1 tablet daily on Thu,Thu,, ; and 1/2 tablet (1.5 mg) on Thu, Thu, and Thu; OR DIRECTED; warfarin 1 mg tablet 1 mg PO .COMPLEX Qty: 30 11RF Protocol: Dose Management Condition: Thursday Dose/Route: 1.5 mg Instruction: 0.5 x 3 mg tablets Condition: Thursday Dose/Route: 3 mg Instruction: 1 x 3 mg tablet Condition: Thursday Dose/Route: 3 mg Instruction: 1 x 3 mg tablet Condition: Thursday Dose/Route: 1.5 mg Instruction: 0.5 x 3 mg tablets Condition: Dose/Route: 1.5 mg Instruction: 0.5 x 3 mg tablets Condition: Thursday Dose/Route: 1.5 mg Instruction: 0.5 x 3 mg tablets Condition: Thursday Dose/Route: 1.5 mg Instruction: 0.5 x 3 mg tablets Protocol Text: Adjustment Start Date: Thursday08/11/22 INR Value: 2.7 INR Date: 08/11/22 Recheck Date: 09/01/22 Rx Instructions: 1 mg orally daily or as directed while on antibiotics; Primary Care Provider: Cheyanne Holt Referrals: [place],Cheyanne D, MD [Primary Care Provider] - 3-5 Days if not improving Activity Restrictions/Additional Instructions: Your labs and test tonight were unremarkable. No cause for your shortness of breath. Chest x-ray look good also. Continue your current medications. Follow-up with your primary care physician if not improving. Disposition Disposition: Home, Self Care
[2022-08-26 05:19] VITALS: O2SAT 97
[2022-08-26 05:26] LABS: Absolute Lymphocyte Count 1.43 X10^3/uL (0.83-4.51); Absolute Neutrophil Count 6.6 X10^3/uL (2.0-7.7); Basophil# 0.06 X10^3/uL; Basophil% 0.7 % (0-1); Eosinophil# 0.08 X10^3/uL; Eosinophils% 0.9 % (0-5); Hematocrit 47.4 % (37-47); Hemoglobin 14.8 g/dL (12.0-15.0); Lymphocyte # 1.43 X10^3/ul (0.83-4.51); Lymphocyte % 15.8 % (19-41); Mean Corp Hgb Conc 31.2 g/dL (32-36); Mean Corpuscular Hgb 26.1 pg (27.0-32.0); Mean Corpuscular Volume 83.7 fL (81-99); Mean Platelet Vol. 10.7 fl (6.2-12.0); Monocyte# 0.79 X10^3/uL; Monocyte% 8.7 % (0-10); NRBC Flagged by Analyzer 0 % (0-5); Neutrophil # 6.64 X10^3/uL (2.7-7.7); Neutrophil % 73.5 % (47-70); Platelet Count 250 K/mm3 (150-450); RBC Distribution Width CV 15.9 % (11.6-14.6); RBC Distribution Width SD 47.7 fl (35.1-43.9); Red Blood Count 5.66 M/mm3 (4.2-5.4)
[2022-08-26 05:38] LABS: International Normalized Ratio 2.4; Prothrombin Time (Protime)PT. 25.6 SECONDS (11.7-14.9)
[2022-08-26 05:43] LABS: Anion Gap 6 (5-15); BUN 21 mg/dL (7-18); Calcium,Total 8.9 mg/dL (8.5-10.1); Chloride 107 mmol/L (98-107); Creatinine, Serum 0.91 mg/dL (0.55-1.02); EST Glomerular Filtration Rate 62 mL/min (>60); Est Glom Filt Rate - Afr Amer 75 mL/min (>60); Estimated Creatinine Clearance 41.93 ml/min; Glucose 117 mg/dL (74-106); Potassium 3.8 mmol/L (3.5-5.1); Sodium Level 141 mmol/L (136-145); Troponin-I HS (w/2H Reflex) 30 pg/mL (3.0-54.0)
[2022-08-26 06:11] VITALS: BP 138/94; PULSE 80; RESP 16; O2SAT 97
[2022-08-26 07:24] LABS: Reflex Troponin-HS? (from REC) Y
== END 2022-08-26 06:13 | disposition home or self-care (01) ==
PROVIDERS: Emergency Provider Emergency Medicine; PCP Internal Medicine; Visit Provider Emergency Medicine
DX: R06.00 Dyspnea, unspecified (principal); J44.9 Chronic obstructive pulmonary disease, unspecified; I11.0 Hypertensive heart disease with heart failure; I50.32 Chronic diastolic (congestive) heart failure; I42.1 Obstructive hypertrophic cardiomyopathy; I48.0 Paroxysmal atrial fibrillation; E78.5 Hyperlipidemia, unspecified; Z79.01 Long term (current) use of 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; Z79.899 Other long term (current) drug therapy; Z99.81 Dependence on supplemental oxygen; Z87.891 Personal history of nicotine dependence; Z95.1 Presence of aortocoronary bypass graft; Z95.0 Presence of cardiac pacemaker
CPT/HCPCS: 71045; 80048; 84484; 85025; 85610; 93005; 99285

== ENCOUNTER 2022-09-14 15:57 | Emergency (ER) | payer MEDICARE, SELFPAY ==
[2022-09-14 15:58] VITALS: BP 127/97; PULSE 66; RESP 22; TEMP 35.9; O2SAT 96; BMI 23.3
[2022-09-14 16:12] VITALS: O2SAT 98
--- NOTE | 2022-09-14 16:21 | EDS_ITS ---
HPI History of Present Illness Chief Complaint: Shortness of Breath Informant: patient Onset/Context/Timing Onset: Weeks (2) Context: Sudden Onset Injury: fall Timing: Continuous Quality: Aching Location: Thoracic Worsened by: improves with Movement Relieved by: Nothing Associated Symptoms Associated Symptoms: Negative for Numbness, Tingling, Radiation to Right Leg, Radiation to Left Leg, Fever, Abdominal Pain, Dysuria, Unable to Ambulate, Unable to Transfer, Urinary Retention, Urinary Incontinence, Constipation or Fecal Incontinence Narrative Narrative: Patient presents with lower thoracic back pain that occurred 2 weeks ago. Patient states she fell backwards and hit her lower thoracic area on a stack of plastic chairs. Patient denies any head injury or loss of consciousness. Patient states she was seen after the fall and had x-rays done. Patient states nothing was broken. Patient states that she has been having some shortness of breath because of the pain. Patient states she checked her pulse oximeter at home and it was 90%. Patient states that when she got here it was 95. Patient denies any head injury or loss of consciousness. Patient denies any cough. [facility] Medical History Atrial fibrillation Atrial fibrillation and flutter Atrial flutter with rapid ventricular response Bladder cancer Chronic diastolic heart failure COPD (chronic obstructive pulmonary disease) Essential hypertension Essential hypertension Former smoker Hyperlipidemia Hypertrophic obstructive cardiomyopathy (HOCM) LBBB (left bundle branch block) Long QT interval Non-Hodgkin lymphoma Nonrheumatic mitral (valve) insufficiency On home oxygen therapy Paroxysmal atrial fibrillation Persistent atrial fibrillation Polyp, sigmoid colon Presence of permanent cardiac pacemaker (~12/10/21) Sick sinus syndrome Home Medications magnesium oxide 400 mg PO DAILY supplement 04/06/19 [History Last Taken 04/08/22] potassium chloride 20 mEq tablet,extended release 20 meq PO DAILY PRN supplement- with lasix 03/17/22 [History Last Taken Unknown] omeprazole 20 mg capsule,delayed release 20 mg PO DAILY PRN GERD 04/09/22 [History Last Taken 04/08/22] warfarin 3 mg tablet 3 mg PO .COMPLEX #90 tabs 06/10/22 [Rx Last Taken Unknown] hydrocodone-acetaminophen 5-325mg 5mg-325mg 0.5 tab PO PRN PRN Pain 07/05/22 [History Last Taken Unknown] methocarbamol 500 mg tablet 500 mg PO TID PRN Muscle pain/spasm #30 tabs 08/24/22 [Rx Last Taken Unknown] oxycodone 5 mg tablet 5 mg PO Q6H PRN pain 5 days #20 tabs 08/25/22 [Rx Last Taken Unknown] lisinopril 20 mg tablet 20 mg PO DAILY 08/26/22 [History Last Taken Unknown] metoprolol succinate 50 mg tablet,extended release 24 hr 50 mg PO DAILY 09/03/22 [History Last Taken Unknown] warfarin 1 mg tablet 1 mg PO .COMPLEX #90 tabs 09/11/22 [Rx Last Taken Unknown] Allergy/AdvReac Type Severity Reaction Status Date / Time allopurinol Allergy Rash Verified 09/14/22 15:58 tramadol AdvReac dizzy Verified 09/14/22 15:58 Family History Father Heart disease Hypertension Mother No cardiac disease Surgical History History of bladder surgery History of cardioversion (~04/25/20) History of left heart catheterization (LHC) (~11/30/17) History of mitral valve repair (~07/30/18) History of ventricular septal myectomy (~07/30/18) Social History household members: none Smoking Status: Former smoker pack-years: 58 how long ago did patient quit smokin years ago alcohol intake: never substance use type: does not use caffeine: No what type of physical activity do you participate in: walking ROS ROS ED Constitutional Constitutional ED: Denies chills or fever(s) Eyes Eyes: Denies blurry vision or change in vision ENT ENT ED: Denies rhinorrhea or sore throat Cardiovascular Cardiovascular: Denies chest pain or palpitations Respiratory/Chest Respiratory/Chest: Reports dyspnea; Denies cough Gastrointestinal Gastrointestinal: Denies nausea or vomiting Genitourinary Genitourinary ED: Denies dysuria or hematuria Musculoskeletal Musculoskeletal: Reports back pain; Denies neck pain Integumentary Denies abscess or rash Neurologic Neurologic: Denies headache(s) or weakness Allergic/Immunologic Allergic/Immunologic ED: Denies mouth swelling or urticaria EXAM Physical Exam Const Vital Signs: 09/14/22 15:58 09/14/22 16:12 Temperature 96.7 F L Temperature Source Temporal Pulse Rate 66 Respiratory Rate 22 H Respiratory Effort Normal Respiratory Depth Normal Respiratory Pattern Normal Blood Pressure 127/97 H Blood Pressure Mean 107 Pulse Ox 96 Oxygen Delivery Method Room Air Room Air Positive well nourished and well developed General Appearance ED: well developed and NAD HEENT Reports moist mucous membranes Neck supple and no JVD Resp normal respiratory effort and clear to auscultation bilaterally Cardio regular rate, regular rhythm and no murmurs GI normal to inspection, nondistended, normoactive bowel sounds and non-tender Palpation: soft Back/Spine Back/Spine Narrative: There is mild tenderness over the left lower thoracic paraspinal muscles. There is no bony crepitance or step-off. There is no edema or ecchymosis. There are no abrasions noted. Thoracic Spine / Upper Back: paraspinal muscle tenderness left Lumbar Spine / Lower Back: straight leg raise negative bilaterally Extremity normal to inspection General Extremety ED: Negative for edema or tenderness General Extremity: Negative for edema Neuro oriented x3, CN's II-XII intact bilaterally and no sensory deficits noted Sensorium / Orientation: alert Motor Exam: strength 5/5 throughout Psych mental status grossly normal Skin no rashes or lesions noted MDM MDM MDM Narrative Medical decision making narrative: PA and lateral chest x-ray was obtained. There are 2 views. On my interpretation, lung [place] are clear. There is normal cardiac silhouette. Bony thorax is normal. There is no acute process noted. Radiologist also interpreted the x-ray and agrees. Patient is feeling better on reevaluation. Patient was advised that this may take another week or 2 before she feels back to normal. Patient was instructed to continue taking Tylenol or ibuprofen as needed for pain. Patient was instructed to continue using ice to the area. Patient was instructed to follow-up with her primary care physician in 5 to 7 days. Patient understood and was agreeable with the plan. All questions were answered. Radiography Diagnostic Testing: Clinical Impression(s) from Imaging Studies Chest X-Ray 09/14/22 16:32 IMPRESSION: No change from 08/26/2022. Electronically Signed: Jerome Huggins MD at 16:58 EST , Discharge Plan Triage Chief Complaint: Shortness of Breath Other Complaint: Back ED Provider: Eduardo Fuentes Dx/Rx/DC Orders Clinical Impression: Acute thoracic myofascial strain, History of COPD Instructions: ED Back Pain (Acute or Chronic), ED Back Sprain/Strain Prescriptions: No Action magnesium oxide 400 mg magnesium tablet 400 mg PO DAILY potassium chloride 20 mEq tablet extended release 20 meq PO DAILY PRN (Reason: supplement- with lasix) omeprazole 20 mg capsule,delayed release(DR/EC) 20 mg PO DAILY PRN (Reason: GERD) Label Comments: TAKE 1 CAPSULE BY MOUTH DAILY BEFORE BREAKFAST. 1/2 HR BEFORE MEAL. hydrocodone-acetaminophen 5-325 mg tablet 0.5 tab PO PRN PRN (Reason: Pain) Label Comments: TAKE 1/2 A PILL BY MOUTH TWO TIMES A DAY FOR 28 DAYS methocarbamol 500 mg tablet 500 mg PO TID PRN (Reason: Muscle pain/spasm) Qty: 30 0RF oxycodone 5 mg tablet 5 mg PO Q6H PRN (Reason: pain) 5 Days Qty: 20 0RF lisinopril 20 mg tablet 20 mg PO DAILY warfarin 3 mg tablet 3 mg PO .COMPLEX Qty: 90 3RF Protocol: Dose Management Condition: Thursday Dose/Route: 1 mg Instruction: 1 x 1 mg tablet Condition: Thursday Dose/Route: 1.5 mg Instruction: 0.5 x 3 mg tablets Condition: Thursday Dose/Route: 1.5 mg Instruction: 0.5 x 3 mg tablets Condition: Thursday Dose/Route: 1.5 mg Instruction: 0.5 x 3 mg tablets Condition: Dose/Route: 1.5 mg Instruction: 0.5 x 3 mg tablets Condition: Thursday Dose/Route: 1 mg Instruction: 1 x 1 mg tablet Condition: Thursday Dose/Route: 1 mg Instruction: 1 x 1 mg tablet Protocol Text: Adjustment Start Date: 09/11/22 INR Value: 3.3 INR Date: 09/11/22 Recheck Date: 09/18/22 Rx Instructions: 3 mg orally 1 tablet daily on Thu,Thu,, ; and 1/2 tablet (1.5 mg) on Thu, Thu, and Thu; OR DIRECTED; metoprolol succinate 50 mg tablet extended release 24 hr 50 mg PO DAILY warfarin 1 mg tablet 1 mg PO .COMPLEX Qty: 90 4RF Protocol: Dose Management Condition: Thursday Dose/Route: 1 mg Instruction: 1 x 1 mg tablet Condition: Thursday Dose/Route: 1.5 mg Instruction: 0.5 x 3 mg tablets Condition: Thursday Dose/Route: 1.5 mg Instruction: 0.5 x 3 mg tablets Condition: Thursday Dose/Route: 1.5 mg Instruction: 0.5 x 3 mg tablets Condition: Dose/Route: 1.5 mg Instruction: 0.5 x 3 mg tablets Condition: Thursday Dose/Route: 1 mg Instruction: 1 x 1 mg tablet Condition: Thursday Dose/Route: 1 mg Instruction: 1 x 1 mg tablet Protocol Text: Adjustment Start Date: 09/11/22 INR Value: 3.3 INR Date: 09/11/22 Recheck Date: 09/18/22 Rx Instructions: 1 mg orally take 1 tab by mouth for 3 days of the week and take one half og the 3mg tabs (1.5mg) the other days of the week or as directed; Primary Care Provider: Cheyanne Holt Referrals: Cheyanne Holt MD [Primary Care Provider] - 5-7 Days Disposition Disposition: Home, Self Care
--- NOTE | 2022-09-14 16:32 | RAD_ITS ---
STUDY: X-RAY CHEST REASON FOR EXAM: Female, 82 years old. Dyspnea TECHNIQUE: PA and lateral views of the chest. COMPARISON: 08/26/2022 FINDINGS: Left subclavian single lead pacemaker which is unchanged. Status post median sternotomy with a left atrial appendage closure device. The lungs are clear and expanded. There is no demonstrated pleural abnormality. Normal size heart. Normal mediastinum and niharika. Normal visualized pulmonary arteries. Normal visualized aortic arch and descending thoracic aorta. Normal visualized thoracic spine. Normal visualized ribs, clavicles, and shoulders. There is no demonstrated abnormality of the visualized soft tissue structures of the upper abdomen. RAD/Chest PA and Lateral IMPRESSION: No change from 08/26/2022. Electronically Signed: Jerome Huggins MD at 16:58 EST ,
== END 2022-09-14 17:30 | disposition home or self-care (01) ==
PROVIDERS: Emergency Provider Emergency Medicine; PCP Internal Medicine; Visit Provider Emergency Medicine
DX: S29.019A Strain of muscle and tendon of unspecified wall of thorax, initial encounter (principal); J44.9 Chronic obstructive pulmonary disease, unspecified; I11.0 Hypertensive heart disease with heart failure; I50.32 Chronic diastolic (congestive) heart failure; I42.1 Obstructive hypertrophic cardiomyopathy; W01.190A Fall on same level from slipping, tripping and stumbling with subsequent striking against furniture, initial encounter; E78.5 Hyperlipidemia, unspecified; Z99.81 Dependence on supplemental oxygen; Z79.01 Long term (current) use of 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; Z79.899 Other long term (current) drug therapy; Z87.891 Personal history of nicotine dependence
CPT/HCPCS: 71046; 99282

== ENCOUNTER → 2022-09-16 | Outpatient (CLI) | payer MEDICARE, SELFPAY ==
--- NOTE | 2022-09-16 12:40 | RAD_ITS ---
STUDY: X-RAY - BILATERAL RIBS REASON FOR EXAM: Female, 82 years old. All 3 weeks ago. Severe posterior rib pain on the left. TECHNIQUE: 4 view(s) of the ribs. COMPARISON: Chest x-ray dated September 14, 2022. FINDINGS: Marked osteopenia of the osseous structures. No displaced rib fracture identified. Hyperexpansion. Stable cardiomegaly, atrial appendage closure device, sternotomy wires, valve replacement and single lead cardiac pacer. RAD/Ribs Bilat 3V No CXR IMPRESSION: Marked osteopenia. No displaced rib fracture identified. Electronically Signed: Panda Danielle, at 13:36 EST ,
--- NOTE | 2022-09-16 12:40 | RAD_ITS ---
STUDY: X-RAY CHEST REASON FOR EXAM: Female, 82 years old. All 3 weeks ago. Now shortness of breath. On warfarin. TECHNIQUE: Frontal and lateral views of the chest. COMPARISON: August 27, 2022. FINDINGS: Hyperinflation unchanged. There is no demonstrated pleural abnormality. Cardiomegaly with sternotomy wires, single lead cardiac pacer, left atrial appendage device and valve replacement, unchanged. Normal mediastinum and niharika. Normal visualized pulmonary arteries. Stable aortic tortuosity. Normal visualized thoracic spine. Multiple left healed rib fractures unchanged from prior comparison studies. There is no demonstrated abnormality of the visualized soft tissue structures of the upper abdomen. RAD/Chest PA and Lateral IMPRESSION: Stable chest with no acute finding. Electronically Signed: Panda Danielle, at 13:28 EST ,
[2022-09-16 13:26] LABS: Hematocrit 51.9 % (37-47); Hemoglobin 16.5 g/dL (12.0-15.0); Mean Corp Hgb Conc 31.8 g/dL (32-36); Mean Corpuscular Hgb 27.1 pg (27.0-32.0); Mean Corpuscular Volume 85.2 fL (81-99); Mean Platelet Vol. 10.9 fl (6.2-12.0); Platelet Count 222 K/mm3 (150-450); RBC Distribution Width CV 16.1 % (11.6-14.6); RBC Distribution Width SD 49.4 fl (35.1-43.9); Red Blood Count 6.09 M/mm3 (4.2-5.4); White Blood Count 8.9 K/mm3 (4.4-11.0)
[2022-09-16 13:35] LABS: International Normalized Ratio 2.5
[2022-09-16 13:47] LABS: BNP,B-Type NATRIURETIC PEPTIDE 166.2 pg/mL (0-100)
== END | disposition home or self-care (01) ==
PROVIDERS: PCP Internal Medicine; Visit Provider Physician Assistant Medical
DX: R06.02 Shortness of breath (principal); C79.51 Secondary malignant neoplasm of bone; C85.10 Unspecified B-cell lymphoma, unspecified site; J44.9 Chronic obstructive pulmonary disease, unspecified; I42.1 Obstructive hypertrophic cardiomyopathy; M81.0 Age-related osteoporosis without current pathological fracture; R07.81 Pleurodynia; Z91.81 History of falling; Z79.01 Long term (current) use of 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
CPT/HCPCS: 36415; 71046; 71110; 83880; 85027; 85610

== ENCOUNTER 2022-09-30 14:17 | Outpatient (RCR) | payer MEDICARE, SELFPAY ==
[2022-09-02 09:44] VITALS: BMI 23.5
[2022-09-03 14:21] LABS: INR Fingerstick 3.6; Prothrombin Time Fingerstick 40.5 SEC (11.7-14.9)
[2022-09-11 13:21] LABS: INR Fingerstick 3.3; Prothrombin Time Fingerstick 37.2 SEC (11.7-14.9)
[2022-09-23 05:56] LABS: INR Fingerstick 2.6; Prothrombin Time Fingerstick 30.5 SEC (11.7-14.9)
[2022-09-30 14:26] LABS: INR Fingerstick 2.1; Prothrombin Time Fingerstick 24.4 SEC (11.7-14.9)
== END 2022-10-01 18:00 | disposition home or self-care (01) ==
LOC: LAB 14:17
PROVIDERS: Family Provider Internal Medicine; PCP Internal Medicine; Referring Provider Internal Medicine Cardiovascular Disease; Visit Provider Internal Medicine Cardiovascular Disease
DX: I48.19 Other persistent atrial fibrillation (principal); Z79.899 Other long term (current) drug therapy; I48.92 Unspecified atrial flutter
CPT/HCPCS: 36416; 85610

== ENCOUNTER 2022-10-04 13:02 | Observation (INO) | payer MEDICARE, SELFPAY ==
[2022-10-04] VITALS (15 sets, daily range): BP systolic 109–145; BP diastolic 92–125; PULSE 91–121; RESP 15–22; TEMP 36.4–36.8; O2SAT 18–99; BMI 26.6; BMI 23.5
--- NOTE | 2022-10-04 13:18 | RAD_ITS ---
STUDY: X-RAY CHEST REASON FOR EXAM: Female, 82 years old. chest pain TECHNIQUE: Single AP portable view of the chest. COMPARISON: 09/16/2022 FINDINGS: Left subclavian pacemaker which is unchanged. Status post median sternotomy with a left atrial appendage closure device. The lungs are clear and expanded. There is no demonstrated pleural abnormality. There is moderate cardiac enlargement. Normal mediastinum and niharika. Normal visualized pulmonary arteries. Normal visualized aortic arch and descending thoracic aorta. Normal visualized thoracic spine. Normal visualized ribs, clavicles, and shoulders. There is no demonstrated abnormality of the visualized soft tissue structures of the upper abdomen. RAD/Chest 1 View (Portable) IMPRESSION: No active disease. Electronically Signed: Jerome Huggins MD at 14:00 EST ,
--- NOTE | 2022-10-04 13:18 | EKG12_ITS ---
Test Reason : CP Blood Pressure : / mmHG Vent. Rate : 114 BPM Atrial Rate : 122 BPM P-R Int : 000 ms QRS Dur : 132 ms QT Int : 356 ms P-R-T Axes : 000 -34 135 degrees QTc Int : 490 ms Atrial fibrillation Left axis deviation Left bundle branch block Abnormal ECG Confirmed by CLAUDIA FORTUNE, KACIE ([id number]), copy editor NAYELI NEGRON ([id number]) on 10/07/2022 12:28:21 PM Referred By: CASSIUS Confirmed By:KACIE TAYLOR MD
--- NOTE | 2022-10-04 13:21 | EDS_ITS ---
HPI History of Present Illness Chief Complaint: Chest Pain Informant: patient, family and EMS Narrative Narrative: 2-year-old female history of cardiac pacemaker and CHF and atrial fibrillation and HOCM. She states that last night during the night she developed a chest pressure and some shortness of breath and is felt fatigued. She walked around but could not catch her breath. EMS was called today and they noted a heart rate of around 150. She states that she is not always in atrial fibrillation. She does not believe she has missed any Coumadin doses. She follows locally with cardiology Dr. Bland [facility] Medical History Atrial fibrillation Atrial fibrillation and flutter Atrial flutter with rapid ventricular response Bladder cancer Chronic diastolic heart failure COPD (chronic obstructive pulmonary disease) Essential hypertension Essential hypertension Fall Former smoker Hyperlipidemia Hypertrophic obstructive cardiomyopathy (HOCM) LBBB (left bundle branch block) Long QT interval Non-Hodgkin lymphoma Nonrheumatic mitral (valve) insufficiency On home oxygen therapy Paroxysmal atrial fibrillation Persistent atrial fibrillation Polyp, sigmoid colon Presence of permanent cardiac pacemaker (~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) Sick sinus syndrome Home Medications magnesium oxide 400 mg PO DAILY supplement 04/06/19 [History Last Taken 04/08/22] potassium chloride 20 mEq tablet,extended release 20 meq PO DAILY PRN supplement- with lasix 03/17/22 [History Last Taken Unknown] omeprazole 20 mg capsule,delayed release 20 mg PO DAILY PRN GERD 04/09/22 [History Last Taken 04/08/22] warfarin 3 mg tablet 3 mg PO .COMPLEX #90 tabs 06/10/22 [Rx Last Taken Unknown] hydrocodone-acetaminophen 5-325mg 5mg-325mg 0.5 tab PO PRN PRN Pain 07/05/22 [History Last Taken Unknown] methocarbamol 500 mg tablet 500 mg PO TID PRN Muscle pain/spasm #30 tabs 08/24/22 [Rx Last Taken Unknown] oxycodone 5 mg tablet 5 mg PO Q6H PRN pain 5 days #20 tabs 08/25/22 [Rx Last Taken Unknown] lisinopril 20 mg tablet 20 mg PO DAILY 08/26/22 [History Last Taken Unknown] metoprolol succinate 50 mg tablet,extended release 24 hr 50 mg PO DAILY 09/03/22 [History Last Taken Unknown] warfarin 1 mg tablet 1 mg PO .COMPLEX #90 tabs 09/11/22 [Rx Last Taken Unknown] furosemide 40 mg tablet (Lasix) 40 mg PO .PRN #30 tabs 09/18/22 [Rx Last Taken Unknown] Allergy/AdvReac Type Severity Reaction Status Date / Time allopurinol Allergy Rash Verified 10/04/22 13:03 tramadol AdvReac dizzy Verified 10/04/22 13:03 Family History Father Heart disease Hypertension Mother No cardiac disease Surgical History History of bladder surgery History of cardioversion (~04/25/20) History of left heart catheterization (LHC) (~11/30/17) History of mitral valve repair (~07/30/18) History of ventricular septal myectomy (~07/30/18) Social History household members: none Smoking Status: Former smoker pack-years: 58 how long ago did patient quit smokin years ago alcohol intake: never substance use type: does not use caffeine: No what type of physical activity do you participate in: walking ROS ROS ED Constitutional Constitutional ED: Denies chills or weight loss Eyes Eyes: Denies change in vision or diplopia ENT ENT ED: Denies ear pain, rhinorrhea or sore throat Cardiovascular Cardiovascular: Reports chest pain; Denies orthopnea, palpitations or racing heartbeat Respiratory/Chest Respiratory/Chest: Reports dyspnea and dyspnea on exertion; Denies cough or orthopnea Gastrointestinal Gastrointestinal: Denies abdominal pain, diarrhea, nausea or vomiting Genitourinary Genitourinary ED: Denies dysuria, hematuria or urinary frequency Musculoskeletal Musculoskeletal: Denies arthralgias or myalgias Integumentary Denies abscess or rash Neurologic Neurologic: Denies headache(s) or weakness Psychiatric Psychiatric: Denies anxiety, depression, suicidal ideation or suicidal thoughts Endocrine Endocrinology: Denies polydipsia, polyphagia or polyuria Allergic/Immunologic Allergic/Immunologic ED: Denies mouth swelling, tongue swelling or urticaria EXAM Physical Exam Const Vital Signs: 10/04/22 13:07 10/04/22 13:33 10/04/22 13:40 Temperature 98.3 F Temperature Source Oral Pulse Rate 121 H 94 97 Pulse Rate [1] Pulse Rate [3] Respiratory Rate 16 Respiratory Rate [1] Respiratory Rate [3] Blood Pressure 129/92 H 144/96 H 109/96 H Blood Pressure [1] Blood Pressure [3] Blood Pressure Mean 104 112 100 Pulse Ox 95 Oxygen Delivery Method Room Air Oxygen Delivery Method [1] Oxygen Delivery Method [3] Oxygen Flow Rate (L/min) Oxygen Flow Rate (L/min) [1] Oxygen Flow Rate (L/min) [3] 10/04/22 13:59 10/04/22 14:23 10/04/22 14:22 Temperature Temperature Source Pulse Rate 96 98 Pulse Rate [1] 98 Pulse Rate [3] 91 Respiratory Rate 22 H Respiratory Rate [1] 16 Respiratory Rate [3] 21 H Blood Pressure 140/93 H 137/96 H Blood Pressure [1] 137/96 H Blood Pressure [3] 135/110 H Blood Pressure Mean 108 Pulse Ox 98 Oxygen Delivery Method Nasal Cannula Oxygen Delivery Method [1] Nasal Cannula Oxygen Delivery Method [3] Nasal Cannula Oxygen Flow Rate (L/min) 2 Oxygen Flow Rate (L/min) [1] 2 Oxygen Flow Rate (L/min) [3] 2 Positive well nourished and well developed General Appearance ED: well developed HEENT Reports normocephalic, head/scalp atraumatic and moist mucous membranes Eyes PERRL and EOMs intact bilaterally Neck no lymphadenopathy, supple and no JVD Resp normal respiratory effort and clear to auscultation bilaterally Cardio no murmurs Rate: tachycardic Rhythm: abnormal rhythm irregularly irregular GI normal to inspection, nondistended, normoactive bowel sounds and non-tender Palpation: soft Back/Spine no CVA tenderness and normal ROM Extremity normal to inspection General Extremety ED: Negative for edema General Extremity: Negative for edema Neuro oriented x3 and CN's II-XII intact bilaterally Sensorium / Orientation: alert Motor Exam: strength 5/5 throughout Psych mental status grossly normal Mood & Affect: Negative for depressed or tearful Skin no rashes or lesions noted and no wounds MDM MDM MDM Narrative Medical decision making narrative: Basic blood work was obtained shows troponin 43. Her INR is therapeutic at 2.1. Interpretation of the chest x-ray is no acute disease. Initial EKG shows atrial fibrillation at a rate of 114 bpm. I spoke with the patient presented options such as hospitalization versus a cardioversion. She has provided informed written consent for the use of etomidate for procedural sedation for cardioversion. Patient received 10 mg of etomidate after being placed on the monitor and given supplemental oxygen. A 150 J synchronized shock was delivered with return to atrial fibrillation rhythm. A second shock was delivered at 200 J and also did not return to sinus rhythm. Patient's heart rate is currently 100. She still has chest discomfort in the lower anterior mid sternum. Not convinced that is cardiac in nature. It may go away if the A. fib resolves. Or it may not be anything related to the heart. Lab Data Attestation: I reviewed the patient's lab results. Labs: Laboratory Results - last 24 hr 10/04/22 10/04/22 10/04/22 12:57 12:57 12:57 WBC 9.9 RBC 5.94 H Hgb 15.6 H Hct 49.2 H MCV 82.8 MCH 26.3 L MCHC 31.7 L RDW Std Deviation 46.2 H RDW Coeff of Neelima 15.5 H Plt Count 279 MPV 11.2 Immature Gran % (Auto) 0.500 Neut % (Auto) 74.4 H Lymph % (Auto) 16.6 L [place] % (Auto) 6.7 Eos % (Auto) 0.8 Baso % (Auto) 1.0 Absolute Neuts (auto) 7.3 Absolute Lymphs (auto) 1.64 Nucleated RBC % 0 PT 23.1 H INR 2.1 APTT 36.2 Sodium 141 Potassium 3.6 Chloride 106 Carbon Dioxide 30.0 Anion Gap 5 BUN 14 Creatinine 1.00 Estim Creat Clear Calc 38.36 Est GFR (MDRD) Af Amer 68 Est GFR (MDRD) Non-Af 56 L BUN/Creatinine Ratio 14.0 Glucose 95 Calcium 9.7 Magnesium 1.6 Troponin I High Sens 43 Radiography Diagnostic Testing: Clinical Impression(s) from Imaging Studies Chest X-Ray 10/04/22 13:18 IMPRESSION: No active disease. Electronically Signed: Jerome Huggins MD at 14:00 EST , EKG Initial EKG: Attestation: I personally reviewed and interpreted this EKG as follows: Interpretation: Atrial Fibrillation and LBBB Comments: Atrial fibrillation with a ventricular rate of 114 bpm Follow-up EKG: Attestation: I personally reviewed and interpreted this EKG as follows: Interpretation: Atrial Fibrillation and LBBB Comments: Atrial fibrillation with a ventricular rate of 93 bpm Discharge Plan Triage Chief Complaint: Chest Pain ED Provider: Pato Danielson Dx/Rx/DC Orders Prescriptions: No Action magnesium oxide 400 mg magnesium tablet 400 mg PO DAILY potassium chloride 20 mEq tablet extended release 20 meq PO DAILY PRN (Reason: supplement- with lasix) furosemide [Lasix] 40 mg tablet 40 mg PO .PRN Qty: 30 12RF omeprazole 20 mg capsule,delayed release(DR/EC) 20 mg PO DAILY PRN (Reason: GERD) Label Comments: TAKE 1 CAPSULE BY MOUTH DAILY BEFORE BREAKFAST. 1/2 HR BEFORE MEAL. hydrocodone-acetaminophen 5-325 mg tablet 0.5 tab PO PRN PRN (Reason: Pain) Label Comments: TAKE 1/2 A PILL BY MOUTH TWO TIMES A DAY FOR 28 DAYS methocarbamol 500 mg tablet 500 mg PO TID PRN (Reason: Muscle pain/spasm) Qty: 30 0RF oxycodone 5 mg tablet 5 mg PO Q6H PRN (Reason: pain) 5 Days Qty: 20 0RF lisinopril 20 mg tablet 20 mg PO DAILY warfarin 3 mg tablet 3 mg PO .COMPLEX Qty: 90 3RF Protocol: Dose Management Condition: Thursday Dose/Route: 1 mg Instruction: 1 x 1 mg tablet Condition: Thursday Dose/Route: 1.5 mg Instruction: 0.5 x 3 mg tablets Condition: Thursday Dose/Route: 1.5 mg Instruction: 0.5 x 3 mg tablets Condition: Thursday Dose/Route: 1.5 mg Instruction: 0.5 x 3 mg tablets Condition: Dose/Route: 1.5 mg Instruction: 0.5 x 3 mg tablets Condition: Thursday Dose/Route: 1 mg Instruction: 1 x 1 mg tablet Condition: Thursday Dose/Route: 1 mg Instruction: 1 x 1 mg tablet Protocol Text: Adjustment Start Date: Thursday09/30/22 INR Value: 2.1 INR Date: 09/30/22 Recheck Date: 10/14/22 Rx Instructions: 3 mg orally 1 tablet daily on Thu,Thu,, ; and 1/2 tablet (1.5 mg) on Thu, Thu, and Thu; OR DIRECTED; metoprolol succinate 50 mg tablet extended release 24 hr 50 mg PO DAILY warfarin 1 mg tablet 1 mg PO .COMPLEX Qty: 90 4RF Protocol: Dose Management Condition: Thursday Dose/Route: 1 mg Instruction: 1 x 1 mg tablet Condition: Thursday Dose/Route: 1.5 mg Instruction: 0.5 x 3 mg tablets Condition: Thursday Dose/Route: 1.5 mg Instruction: 0.5 x 3 mg tablets Condition: Thursday Dose/Route: 1.5 mg Instruction: 0.5 x 3 mg tablets Condition: Dose/Route: 1.5 mg Instruction: 0.5 x 3 mg tablets Condition: Thursday Dose/Route: 1 mg Instruction: 1 x 1 mg tablet Condition: Thursday Dose/Route: 1 mg Instruction: 1 x 1 mg tablet Protocol Text: Adjustment Start Date: Thursday09/30/22 INR Value: 2.1 INR Date: 09/30/22 Recheck Date: 10/14/22 Rx Instructions: 1 mg orally take 1 tab by mouth for 3 days of the week and take one half og the 3mg tabs (1.5mg) the other days of the week or as directed; Primary Care Provider: Cheyanne Holt Referrals: Cheyanne Holt MD [Primary Care Provider] -
[2022-10-04] MEDS: Metoprolol Tartrate 5 MG/5 ML Vial IV ×3 (13:29→13:59)
[2022-10-04 13:37] LABS: Absolute Lymphocyte Count 1.64 X10^3/uL (0.83-4.51); Absolute Neutrophil Count 7.3 X10^3/uL (2.0-7.7); Eosinophil# 0.08 X10^3/uL; Eosinophils% 0.8 % (0-5); Hematocrit 49.2 % (37-47); Hemoglobin 15.6 g/dL (12.0-15.0); Lymphocyte # 1.64 X10^3/ul (0.83-4.51); Lymphocyte % 16.6 % (19-41); Mean Corp Hgb Conc 31.7 g/dL (32-36); Mean Corpuscular Hgb 26.3 pg (27.0-32.0); Mean Corpuscular Volume 82.8 fL (81-99); Mean Platelet Vol. 11.2 fl (6.2-12.0); Monocyte# 0.66 X10^3/uL; Monocyte% 6.7 % (0-10); NRBC Flagged by Analyzer 0 % (0-5); Neutrophil # 7.33 X10^3/uL (2.7-7.7); Neutrophil % 74.4 % (47-70); Platelet Count 279 K/mm3 (150-450); RBC Distribution Width CV 15.5 % (11.6-14.6); RBC Distribution Width SD 46.2 fl (35.1-43.9); Red Blood Count 5.94 M/mm3 (4.2-5.4); White Blood Count 9.9 K/mm3 (4.4-11.0)
[2022-10-04 13:46] LABS: International Normalized Ratio 2.1; Prothrombin Time (Protime)PT. 23.1 SECONDS (11.7-14.9)
[2022-10-04 13:47] LABS: Partial Thromboplast Time 36.2 Seconds (24.1-36.2)
[2022-10-04 13:57] LABS: Anion Gap 5 (5-15); BUN 14 mg/dL (7-18); Calcium,Total 9.7 mg/dL (8.5-10.1); Chloride 106 mmol/L (98-107); EST Glomerular Filtration Rate 56 mL/min (>60); Est Glom Filt Rate - Afr Amer 68 mL/min (>60); Estimated Creatinine Clearance 38.36 ml/min; Glucose 95 mg/dL (74-106); Magnesium 1.6 mg/dL (1.6-2.6); Potassium 3.6 mmol/L (3.5-5.1); Sodium Level 141 mmol/L (136-145); Troponin-I HS (w/2H Reflex) 43 pg/mL (3.0-54.0)
[2022-10-04] MEDS: Etomidate 20 MG/10 ML Vial 10 MG IV (14:33)
--- NOTE | 2022-10-04 14:41 | EKG12_ITS ---
Test Reason : POST CARDIOVERSION Blood Pressure : / mmHG Vent. Rate : 093 BPM Atrial Rate : 468 BPM P-R Int : 000 ms QRS Dur : 130 ms QT Int : 392 ms P-R-T Axes : 000 -39 148 degrees QTc Int : 487 ms Atrial fibrillation Left axis deviation Left bundle branch block Abnormal ECG Confirmed by CLAUDIA FORTUNE, KACIE ([id number]), fan mail editor NAYELI NEGRON ([id number]) on 10/07/2022 12:28:47 PM Referred By: VIRI Confirmed By:KACIE TAYLOR MD
--- NOTE | 2022-10-04 15:02 | HP.PCM.HOS_ITS ---
HPI - General General Date of Admission: 10/04/22 Date of Service: 10/04/22 Chief Complaint: Dyspnea, chest pressure, palpitations. HPI Narrative The patient is an 82 y/o F w/ PMHx: PAF, COPD w/ Chronic Hypoxic Respiratory Failure, Chronic Diastolic CHF, Hypertrophic Obstructive Cardiomyopathy, HTN, HLD, Former tobacco use, Hx Bladder CA s/p resection, Hx NH Lymphoma, Hx sick sinus syndrome s/p pacemaker placement, Valvular Heart Disease s/p MV repair and ventricular septal myectomy who presents to the [facility] ED on 10/04/22 with history of onset the evening prior midsternal chest pressure with associated dyspnea and increased fatigue with inability to catch her breath significantly worsened with any attempted exertion with called EMS on day of presentation as she noted her heart rate was around 150 reporting that she is not necessarily always in atrial fibrillation prompting eventual ED evaluation. Patient reports following with Rinku Bland and her most recent visit with cardiology as noted 09/18/2022. Patient does state that she has not taken any of her medications today thus far including her metoprolol. Work-up in the ED included T98.3, heart rate 121, BP 129/92, respiratory rate 16, initially reported as 95% on room air, orthostatics only performed 2 different positions and unchanged, CBC with WBC 9.9, hemoglobin 15.6, platelet 279 with mildly increased neutrophils otherwise no significant shift, coags with PT 23.1, INR 2.1, BMP unremarkable, magnesium 1.6, troponin 43, chest x-ray with no acute cardiopulmonary findings, EKG with atrial fibrillation initially with a rate of 114. Given patient's symptoms and her therapeutic INR 2.1 upon presentation she elected for attempted cardioversion in the ED with administration of etomidate for procedural sedation with 150 J shock delivered with again return to atrial fibrillation as well as a second shock at 200 J and again did not return to sinus rhythm prompting request for admission given symptoms. Upon initial presentation she noted to have rate 150 however did decrease to 90-100 with lopressor 5 mg IV x 3. She was also additionally administered etomidate, GI cocktail, lidocaine, mylanta. [facility] Medical History Atrial fibrillation Atrial fibrillation and flutter Atrial flutter with rapid ventricular response Bladder cancer Chronic diastolic heart failure COPD (chronic obstructive pulmonary disease) Essential hypertension Essential hypertension Fall Former smoker Hyperlipidemia Hypertrophic obstructive cardiomyopathy (HOCM) LBBB (left bundle branch block) Long QT interval Non-Hodgkin lymphoma Nonrheumatic mitral (valve) insufficiency On home oxygen therapy Paroxysmal atrial fibrillation Persistent atrial fibrillation Polyp, sigmoid colon Presence of permanent cardiac pacemaker (~12/10/21) Sick sinus syndrome Home Medications magnesium oxide 400 mg PO DAILY supplement 04/06/19 [History Last Taken 04/08/22] potassium chloride 20 mEq tablet,extended release 20 meq PO DAILY PRN supplem ent- with lasix 03/17/22 [History Last Taken Unknown] warfarin 3 mg tablet 3 mg PO .COMPLEX #90 tabs 06/10/22 [Rx Last Taken Unknown] methocarbamol 500 mg tablet 500 mg PO TID PRN Muscle pain/spasm #30 tabs 08/24/22 [Rx Last Taken Unknown] oxycodone 5 mg tablet 5 mg PO Q6H PRN pain 5 days #20 tabs 08/25/22 [Rx Last Taken Unknown] lisinopril 20 mg tablet 20 mg PO DAILY 08/26/22 [History Last Taken Unknown] metoprolol succinate 50 mg tablet,extended release 24 hr 50 mg PO DAILY 09/03/22 [History Last Taken Unknown] warfarin 1 mg tablet 1 mg PO .COMPLEX #90 tabs 09/11/22 [Rx Last Taken Unknown] furosemide 40 mg tablet (Lasix) 40 mg PO .PRN #30 tabs 09/18/22 [Rx Last Taken Unknown] alendronate 70 mg tablet 70 mg PO DAILY 10/04/22 [History Last Taken Unknown] gabapentin 100 mg capsule 100 mg PO BID 10/04/22 [History Last Taken Unknown] Allergy/AdvReac Type Severity Reaction Status Date / Time allopurinol Allergy Rash Verified 10/04/22 13:03 tramadol AdvReac dizzy Verified 10/04/22 13:03 Family History Father Heart disease Hypertension Mother No cardiac disease Surgical History History of bladder surgery History of cardioversion (~04/25/20) History of left heart catheterization (LHC) (~11/30/17) History of mitral valve repair (~07/30/18) History of ventricular septal myectomy (~07/30/18) Social History household members: none Smoking Status: Former smoker pack-years: 58 how long ago did patient quit smokin years ago alcohol intake: never substance use type: does not use caffeine: No what type of physical activity do you participate in: walking ROS ROS Narrative Admission Review of Systems: CONSTITUTIONAL: No weight loss, fever, chills, + weakness or fatigue. HEENT: Eyes: No visual loss, blurred vision, double vision or yellow sclerae. Ears, Nose, Throat: No hearing loss, sneezing, congestion, runny nose or sore throat. SKIN: No rash or itching, lesions, wounds. CARDIOVASCULAR: + Chest pressure, palpitations. No edema, orthopnea, syncopal events. RESPIRATORY: + shortness of breath, No cough or sputum, wheezing, hemoptysis. GASTROINTESTINAL: No anorexia, nausea, vomiting or diarrhea, abdominal pain, melena, BRBPR. GENITOURINARY: No dysuria, frequency, urgency or retention. NEUROLOGICAL: No headache, dizziness, syncope, paralysis, ataxia, numbness or tingling in the extremities, focal weakness, change in bowel or bladder control, seizure. MUSCULOSKELETAL:+ muscle, back pain, joint pain or stiffness. HEMATOLOGIC: + Easy bleeding or bruising. LYMPHATICS: No enlarged nodes. No history of splenectomy. PSYCHIATRIC: No history of depression or anxiety. ENDOCRINOLOGIC: No reports of sweating, cold or heat intolerance. No polyuria or polydipsia. ALLERGIES: + history of hives. Vital Signs Vital Signs Vital Signs: 10/04/22 13:07 10/04/22 13:33 10/04/22 13:40 Temperature 98.3 F Temperature Source Oral Pulse Rate 121 H 94 97 Pulse Rate [1] Pulse Rate [3] Respiratory Rate 16 Respiratory Rate [1] Respiratory Rate [3] Blood Pressure 129/92 H 144/96 H 109/96 H Blood Pressure [1] Blood Pressure [3] Blood Pressure Mean 104 112 100 Pulse Ox 95 Oxygen Delivery Method Room Air Oxygen Delivery Method [1] Oxygen Delivery Method [3] Oxygen Flow Rate (L/min) Oxygen Flow Rate (L/min) [1] Oxygen Flow Rate (L/min) [3] 10/04/22 13:59 10/04/22 14:23 10/04/22 14:22 Temperature Temperature Source Pulse Rate 96 98 Pulse Rate [1] 98 Pulse Rate [3] 91 Respiratory Rate 22 H Respiratory Rate [1] 16 Respiratory Rate [3] 21 H Blood Pressure 140/93 H 137/96 H Blood Pressure [1] 137/96 H Blood Pressure [3] 135/110 H Blood Pressure Mean 108 Pulse Ox 98 Oxygen Delivery Method Nasal Cannula Oxygen Delivery Method [1] Nasal Cannula Oxygen Delivery Method [3] Nasal Cannula Oxygen Flow Rate (L/min) 2 Oxygen Flow Rate (L/min) [1] 2 Oxygen Flow Rate (L/min) [3] 2 Weight Weight: 159 lb 13.362 oz Body Mass Index (BMI) 26.6 Physical Exam Narrative Physical Examination: General: Awake, alert, oriented x 3 and cooperative, seated upright in the ED bed, fatigued but no acute distress, mildly improved with rate currently in the 90s. Skin: Normal color, normal turgor, no icterus, no cyanosis except occasional staged ecchymoses. HEENT: AT/NC, EOMI, PERRLA, mildly dry MM, no carotid bruits or JVD noted. Lungs: Diminished, greater bases, mild crackles which suspect are chronic, no evidence of any respiratory distress, no specific marked rales, rhonchi or wheezing. Heart: Irregular, rate improved; no gallop, rub audible, midline sternotomy scar present as well as left upper chest with pacemaker device present. Abdomen: Soft, overweight, NTTP, ND, distant normal BS, no HSM. Extremities: No cyanosis, clubbing, or edema. Neurological: Patient awake, alert, oriented as noted, cognitive function intact; pupils equally reactive to light and accommodation, cranial nerves II- XII grossly normal, moving all 4 extremities, no focal deficits, strength moderately to severely decreased secondary to acute presentation complaints. Psychiatric: Affect appears fatigued otherwise normal, no acute evidence of depressive or anxiety feelings. Results Lab / Micro Data Result Diagrams: 10/04/22 12:57 10/04/22 12:57 Labs: Laboratory Results - last 24 hr 10/04/22 12:57: WBC 9.9, RBC 5.94 H, Hgb 15.6 H, Hct 49.2 H, MCV 82.8, MCH 26.3 L, MCHC 31.7 L, RDW Std Deviation 46.2 H, RDW Coeff of Neelima 15.5 H, Plt Count 279, MPV 11.2, Immature Gran % (Auto) 0.500, Neut % (Auto) 74.4 H, Lymph % (Auto) 16.6 L, Rains % (Auto) 6.7, Eos % (Auto) 0.8, Baso % (Auto) 1.0, Absolute Neuts (auto) 7.3, Absolute Lymphs (auto) 1.64, Nucleated RBC % 0 10/04/22 12:57: Sodium 141, Potassium 3.6, Chloride 106, Carbon Dioxide 30.0, Anion Gap 5, BUN 14, Creatinine 1.00, Estim Creat Clear Calc 38.36, Est GFR (MDRD) Af Amer 68, Est GFR (MDRD) Non-Af 56 L, BUN/Creatinine Ratio 14.0, Glucose 95, Calcium 9.7, Magnesium 1.6, Troponin I High Sens 43 10/04/22 12:57: PT 23.1 H, INR 2.1, APTT 36.2 Radiology Impression Chest X-Ray 10/04/22 13:18 IMPRESSION: No active disease. Electronically Signed: Jerome Huggins MD at 14:00 EST , Assessment & Plan Assessment/Plan (1) Paroxysmal atrial fibrillation: PLAN: Plan The patient is an 82 y/o F w/ PMHx: PAF, COPD w/ Chronic Hypoxic Respiratory Failure, Chronic Diastolic CHF, Hypertrophic Obstructive Cardiomyopathy, HTN, HLD, Former tobacco use, Hx Bladder CA s/p resection, Hx NH Lymphoma, Hx sick sinus syndrome s/p pacemaker placement, Valvular Heart Disease s/p MV repair and ventricular septal myectomy who presents to the [facility] ED on 10/04/22 with history of onset the evening prior midsternal chest pressure with associated dyspnea and increased fatigue with inability to catch her breath significantly worsened with any attempted exertion with called EMS on day of presentation as she noted her heart rate was around 150 reporting that she is not necessarily always in atrial fibrillation prompting eventual ED evaluation. #1. Paroxsymal atrial fibrillation with RVR with associated chest discomfort/pressure: EKG in ED w/ atrial fibrillation w/ RVR. Patient administered Lopressor 5 mg IV x3 in ED without marked improvement with then attempt for cardioversion x2 with each time return to atrial fibrillation although rate has somewhat improved since initial presentation as rate had initially been reportedly in the 150s per discussion with ED staff, currently 92 105. Will admit to PCU, maintain on telemetry, obtain cardiac enzyme serial set, magnesium 1.6 therefore will administer 2 g x 1 repeat level in a.m., obtain ECHO as last noted 10/22/2021, obtain TSH level. We will continue Coumadin with INR trending. We will increase patient metoprolol regimen and dose now as she is not had a dose at all today. If patient has ongoing symptoms despite these interventions or concerning assessments low threshold to involve cardiology. #2. Valvular Heart Disease: Patient s/p open heart surgery with noted MV repair and ventricular septal myectomy. Last echocardiogram noted 10/22/2021 with segmental dysfunction with preserved EF, EF 55%, postoperative septal motion, severely enlarged LA and RA, annuloplasty ring noted in the mitral position, trivial transvalvular insufficiency of the mitral valve, moderate 2+ eccentric TV insufficiency, mild diffuse AV thickening, moderate diffuse AV calcification, mild PVI, mild dilated aortic root, RVSP 44 mmHg with inability to assess diastolic dysfunction. Repeat ECHO requested. #3. COPD w/ Chronic Hypoxic Respiratory Failure: Noted prior chronic sick respiratory failure previously noted on 2 L nasal cannula although did initially present on room air and oxygen was transiently placed with sedation, currently now off, continue to monitor and add regimen if appropriate, complicates presentation however to be cautious if absolutely necessary will have as needed albuterol, defer any scheduled regimen at this point but if necessary may add budesonide. #4. Chronic Diastolic CHF/Hypertrophic Obstructive Cardiomyopathy: Most recent echocardiogram as noted above with EF 55%, inability to assess diastolic dysfunction at that time suspect likely secondary to atrial fibrillation, we will continue patient home Coumadin with INR trending, increasing metoprolol dose as noted, continue lisinopril as well as Lasix regimen, judicious hydration if necessary with continued close monitoring of respiratory status. Not on statin therapy, FLP in a.m. #5. Hypertension: We will increase metoprolol regimen with dose now to see if this will help improve symptoms and rate control, continue lisinopril, Lasix home regimen additionally, as needed IV hydralazine. #6. Hyperlipidemia: Not on regimen, FLP in AM. #7. Former tobacco use: Encourage continued tobacco cessation. #8. Hx Bladder CA: Per report s/p resection, continue in remission. #9. Hx NH Lymphoma: Noted in history, per discussion considered in remission, encourage continued outpatient follow-up. #10. Hx sick sinus syndrome: s/p pacemaker placement, given presentation device interrogation requested #11. DVT prophylaxis: SCDs, continue Coumadin with INR trending. #12. CODE status: Patient WAQAR is her daughter who is present and living will is currently in place. Discussed CODE status at length including difference between FULL code, DNR-CCA and DNR-CC status. Following discussions about the differences in these status, requested Full Code status. Per discussion with patient and daughter they never had these discussions before therefore strongly encouraged them to continue to keep open lines of communication especially if she is the assigned healthcare power of personal injury attorney. Advanced Care Planning Face to Face Time: 16 minutes. Charges/Coding Visit Charges OBSV E&M: 65023 Initial observation care L3 Procedures Hospitalists Procedures: 57935 Advncd Care Plan 30 Min
--- NOTE | 2022-10-04 15:09 | NURSING ---
PCU OBS WHITE AFIB CHEST PAIN
[2022-10-04] MEDS: Ondansetron 4 MG/2 ML Vial IV (15:20)
[2022-10-04 15:36] LABS: Reflex Troponin-HS? (from REC) Y
--- NOTE | 2022-10-04 16:19 | EKG12_ITS ---
Test Reason : Blood Pressure : / mmHG Vent. Rate : 096 BPM Atrial Rate : 096 BPM P-R Int : 000 ms QRS Dur : 136 ms QT Int : 454 ms P-R-T Axes : 000 -33 136 degrees QTc Int : 573 ms Sinus rhythm with A-V dissociation and Wide QRS rhythm Left axis deviation Left bundle branch block Abnormal ECG When compared with ECG of 04-OCT-2022 14:50, MANUAL COMPARISON REQUIRED, DATA IS UNCONFIRMED Confirmed by CLAUDIA FORTUNE, KACIE ([id number]), editor & co founder NAYELI NEGRON ([id number]) on 10/07/2022 12:42:50 PM Referred By: LALO Confirmed By:KACIE TAYLOR MD
[2022-10-04 16:20] LABS: Troponin-I HS 37 pg/mL (3.0-54.0)
[2022-10-04] MEDS: Metoprolol(XL)Succ 25 MG Tablet 75 MG PO (18:49)
[2022-10-04 19:40] LABS: Troponin-I HS 43 pg/mL (3.0-54.0)
[2022-10-04] MEDS: MELATONIN 3 MG TABLET PO (21:48)
[2022-10-05] VITALS (8 sets, daily range): BP systolic 103–120; BP diastolic 81–85; PULSE 81–97; RESP 16–18; TEMP 36.7–37.1; O2SAT 92–96
[2022-10-05] MEDS: Acetaminophen 325 MG Tablet 650 MG PO (02:08)
[2022-10-05 07:45] LABS: Absolute Lymphocyte Count 1.72 X10^3/uL (0.83-4.51); Absolute Neutrophil Count 4.7 X10^3/uL (2.0-7.7); Basophil# 0.08 X10^3/uL; Basophil% 1.1 % (0-1); Eosinophil# 0.18 X10^3/uL; Eosinophils% 2.5 % (0-5); Hematocrit 44.9 % (37-47); Hemoglobin 13.9 g/dL (12.0-15.0); Lymphocyte # 1.72 X10^3/ul (0.83-4.51); Lymphocyte % 23.7 % (19-41); Mean Corpuscular Hgb 26.3 pg (27.0-32.0); Mean Corpuscular Volume 84.9 fL (81-99); Mean Platelet Vol. 11.5 fl (6.2-12.0); Monocyte# 0.59 X10^3/uL; Monocyte% 8.1 % (0-10); NRBC Flagged by Analyzer 0 % (0-5); Neutrophil # 4.65 X10^3/uL (2.7-7.7); Neutrophil % 64.2 % (47-70); Platelet Count 217 K/mm3 (150-450); RBC Distribution Width CV 15.4 % (11.6-14.6); RBC Distribution Width SD 47.2 fl (35.1-43.9); Red Blood Count 5.29 M/mm3 (4.2-5.4); White Blood Count 7.3 K/mm3 (4.4-11.0)
[2022-10-05 08:12] LABS: ALB/GLOB Ratio 0.9 RATIO (0.9-2.4); AST(SGOT) 19 U/L (15-37); Alanine Aminotransfer ALT/SGPT 28 U/L (13-56); Albumin, Serum 2.9 g/dL (3.2-5.0); Alkaline Phosphatase 86 U/L (45-117); Anion Gap 7 (5-15); BUN 19 mg/dL (7-18); BUN/Creat Ratio 19.5 RATIO (10-20); Calcium,Total 8.4 mg/dL (8.5-10.1); Chloride 108 mmol/L (98-107); Cholesterol 210 mg/dL (200); Creatinine, Serum 0.98 mg/dL (0.55-1.02); EST Glomerular Filtration Rate 58 mL/min (>60); Est Glom Filt Rate - Afr Amer 70 mL/min (>60); Estimated Creatinine Clearance 39.14 ml/min; Globulin 3.1 g/dL (2.2-4.2); Glucose 91 mg/dL (74-106); High Density Lipoprotein 41 mg/dL; Magnesium 2.2 mg/dL (1.6-2.6); Potassium 3.5 mmol/L (3.5-5.1); Sodium Level 141 mmol/L (136-145); Thyroid Stim Hormone (TSH) 1.41 uIU/mL (0.358-3.74); Triglycerides 159 mg/dL; Very Low Density Lipoprotein 32 mg/dL (5-40)
[2022-10-05] MEDS: Lisinopril 20 MG Tablet PO (08:32)
[2022-10-05] MEDS: Metoprolol(XL)Succ 25 MG Tablet 75 MG PO (08:32)
[2022-10-05 08:42] LABS: International Normalized Ratio 2.2; Prothrombin Time (Protime)PT. 23.8 SECONDS (11.7-14.9)
--- NOTE | 2022-10-05 14:02 | DS.PCM_ITS ---
Providers Date of Admission: 10/04/22 Date of Discharge: 10/05/22 Primary Care Physician: Dr. Cheyanne Holt MD Reason For Visit: PAF WITH RVR Diagnosis Discharge Diagnosis (1) Paroxysmal atrial fibrillation: Status: Acute Code(s): I48.0 - Paroxysmal atrial fibrillation Medications at Discharge Home Medications magnesium oxide 400 mg PO DAILY supplement 04/06/19 potassium chloride 20 mEq tablet,extended release 20 meq PO DAILY PRN supplement- with lasix 03/17/22 methocarbamol 500 mg tablet 500 mg PO TID PRN Muscle pain/spasm #30 tabs 08/24/22 oxycodone 5 mg tablet 5 mg PO Q6H PRN pain 5 days #20 tabs 08/25/22 lisinopril 20 mg tablet 20 mg PO DAILY blood pressure 08/26/22 furosemide 40 mg tablet (Lasix) 40 mg PO .PRN #30 tabs 09/18/22 alendronate 70 mg tablet 70 mg PO DAILY osteoporosis 10/04/22 gabapentin 100 mg capsule 100 mg PO BID NERVE PAIN 10/04/22 metoprolol succinate 25 mg tablet,extended release 24 hr 75 mg PO DAILY #90 tabs 10/05/22 warfarin 1 mg tablet 1 mg PO .COMPLEX blood thinner 10/05/22 warfarin 3 mg tablet 3 mg PO .COMPLEX blood thinner 10/05/22 Hospital Course Operations None Procedures Cardioversion Summary of Care Provided Minutes Spent on Discharge: 45 Hospital Course: Patient is an 82 y/o female with a PMH as outlined who was admitted via the ED on 10/04/2022 with a complaint of chest pain and associated dyspnea with increaseing fatigue. She noted her heart rate was markedly elevated in the 150s. She hadnt taken any of her meds on the day of admission. She was found t obe in afib on admission. EKG showed afib with HR of ~ 114; initial troponin was negaitve and CXR showed no acute cardiopulmonary findings. She had 2 attempts at cardioversion in the ED, but still remained in afib. She was admitted to be managed for afib with RVR Troponins remained low, and she subsequently converted to normal sinus rhythm with rate control. HEr troponins didnt trend up whatsoever. She felt better and wanted to be discharged home. 2D echo was ordered as her last echo was October 2021. However, patient said shshe felt well enough to go home, and had had previous such episodes of afib with RVR, which resolved. She was agreeable to going home and following up with her PCP and cardiology for 2D echo to be ordered on outpatient basis. Her metoprolol was increased to 75 mg daily and she was continued on her Coumadin. She is follow-up with her primary care doctor and cardiology within 1 week. Patient seen and examined prior to discharge. She had no complaints and had an uneventful night. Review of systems otherwise negative. Labs and vitals reviewed. Home medication reviewed and reconciled. Physical Exam Const alert, oriented x3 and no apparent distress General Appearance: cooperative and comfortable Orientation / Consciousness: awake Exam Limitations: no limitations HEENT normocephalic, head/scalp atraumatic, hearing grossly normal bilaterally and moist oral mucous membranes Mouth: oral and palatal mucosa normal Eyes PERRL and EOMs intact bilaterally Neck no lymphadenopathy Resp normal respiratory effort, no retractions, no use of accessory muscles and clear to auscultation bilaterally Cardio regular rate, regular rhythm, S1 normal heart sound, S2 normal heart sound and no murmurs GI normal to inspection, nondistended, normoactive bowel sounds, soft to palpation, non-tender and non-distended Extremity normal to inspection, full ROM and no clubbing, cyanosis or edema Skin no rashes or lesions noted and no wounds Neuro oriented x3, CN's II-XII intact bilaterally and moves all extremities Sensorium / Orientation: awake and alert Speech: speech normal Motor Exam: strength 5/5 throughout Psych affect normal Weight / BMI Weight Weight: 138 lb 7.205 oz Body Mass Index (BMI) 23.5 ABG / Lab / Microbiology Data Result Diagrams: 10/05/22 06:10 10/05/22 06:41 Laboratory: Laboratory Results - last 24 hr 10/04/22 15:45: Troponin I High Sens 37 10/04/22 19:00: Troponin I High Sens 43 10/05/22 06:10: WBC 7.3, RBC 5.29, Hgb 13.9, Hct 44.9, MCV 84.9, MCH 26.3 L, MCHC 31.0 L, RDW Std Deviation 47.2 H, RDW Coeff of Neelima 15.4 H, Plt Count 217, MPV 11.5, Immature Gran % (Auto) 0.400, Neut % (Auto) 64.2, Lymph % (Auto) 23.7, Heard % (Auto) 8.1, Eos % (Auto) 2.5, Baso % (Auto) 1.1 H, Absolute Neuts (auto) 4.7, Absolute Lymphs (auto) 1.72, Nucleated RBC % 0 10/05/22 06:10: PT 23.8 H, INR 2.2 10/05/22 06:41: Sodium 141, Potassium 3.5, Chloride 108 H, Carbon Dioxide 26.0, Anion Gap 7, BUN 19 H, Creatinine 0.98, Estim Creat Clear Calc 39.14, Est GFR (MDRD) Af Amer 70, Est GFR (MDRD) Non-Af 58 L, BUN/Creatinine Ratio 19.5, Glucose 91, Calcium 8.4 L, Magnesium 2.2, Total Bilirubin 0.40, AST 19, ALT 28, Alkaline Phosphatase 86, Total Protein 6.0 L, Albumin 2.9 L, Globulin 3.1, Albumin/Globulin Ratio 0.9, Triglycerides 159, Cholesterol 210 H, LDL Cholesterol 137 H, VLDL Cholesterol 32, HDL Cholesterol 41, TSH 1.41 D/C Instructions Discharge Diet: Low fat / Low cholesterol Discharge Activity: Return to Normal Activity Weight Bearing Status: Weight bearing as tolerated Call your doctor if you observe: Fever of 101 or Higher, Shortness of breath, Dizziness, Swelling in the ankles, Chest pain and Increased palpitations (irregular heartbeat) Meaningful Use Info Meaningful Use Diagnoses (Choose all that apply): None applicable Discharge Plan Admission Admit Date/Time: 10/04/22 15:20 Primary Reason for Your Visit: afib with rvr Attending Provider: Deja Ruiz Primary Care Provider: Cheyanne Holt Consulting Providers: Bridgett Farooq Instructions Patient Instructions: AFib Dc Additional Instructions / Restrictions: metoprolol increased to 75mg daily. Follow up with piano regulator inspector and PCP within one week for 2D echo to be ordered on outpatient basis Discharge Orders/Prescriptions Prescriptions: New metoprolol succinate 25 mg Tablet Extended Release 24 Hr 75 mg PO DAILY Qty: 90 2RF Continued magnesium oxide 400 mg magnesium tablet 400 mg PO DAILY potassium chloride 20 mEq tablet extended release 20 meq PO DAILY PRN (Reason: supplement- with lasix) furosemide [Lasix] 40 mg tablet 40 mg PO .PRN Qty: 30 12RF methocarbamol 500 mg tablet 500 mg PO TID PRN (Reason: Muscle pain/spasm) Qty: 30 0RF oxycodone 5 mg tablet 5 mg PO Q6H PRN (Reason: pain) 5 Days Qty: 20 0RF lisinopril 20 mg tablet 20 mg PO DAILY alendronate 70 mg tablet 70 mg PO DAILY gabapentin 100 mg capsule 100 mg PO BID Discontinued metoprolol succinate 50 mg tablet extended release 24 hr 50 mg PO DAILY No Action warfarin 3 mg tablet 3 mg PO .COMPLEX Protocol: Dose Management Condition: Thursday Dose/Route: 1 mg Instruction: 1 x 1 mg tablet Condition: Thursday Dose/Route: 1.5 mg Instruction: 0.5 x 3 mg tablets Condition: Thursday Dose/Route: 1.5 mg Instruction: 0.5 x 3 mg tablets Condition: Thursday Dose/Route: 1.5 mg Instruction: 0.5 x 3 mg tablets Condition: Dose/Route: 1.5 mg Instruction: 0.5 x 3 mg tablets Condition: Thursday Dose/Route: 1 mg Instruction: 1 x 1 mg tablet Condition: Thursday Dose/Route: 1 mg Instruction: 1 x 1 mg tablet Protocol Text: Adjustment Start Date: Thursday09/30/22 INR Value: 2.1 INR Date: 09/30/22 Recheck Date: 10/14/22 Rx Instructions: 1 mg orally Thursday, Thursday, Thursday, and take one half of the 3mg tabs (1.5mg) Thursday, Thursday, Thursday, warfarin 1 mg tablet 1 mg PO .COMPLEX Protocol: Dose Management Condition: Thursday Dose/Route: 1 mg Instruction: 1 x 1 mg tablet Condition: Thursday Dose/Route: 1.5 mg Instruction: 0.5 x 3 mg tablets Condition: Thursday Dose/Route: 1.5 mg Instruction: 0.5 x 3 mg tablets Condition: Thursday Dose/Route: 1.5 mg Instruction: 0.5 x 3 mg tablets Condition: Dose/Route: 1.5 mg Instruction: 0.5 x 3 mg tablets Condition: Thursday Dose/Route: 1 mg Instruction: 1 x 1 mg tablet Condition: Thursday Dose/Route: 1 mg Instruction: 1 x 1 mg tablet Protocol Text: Adjustment Start Date: Thursday09/30/22 INR Value: 2.1 INR Date: 09/30/22 Recheck Date: 10/14/22 Rx Instructions: 1 mg orally Thursday, Thursday, Thursday, and take one half of the 3mg tabs (1.5mg) Thursday, Thursday, Thursday, Referrals / Follow Up: Cheyanne Holt MD [Primary Care Provider] - Within 1 Week Arnold Bland MD [Med Staff - Active Staff] - Within 1 Week Disposition Disposition (needs filled in before D/C Order can be placed): Home, Self Care Charges/Coding Visit Charges OBSV E&M: 23105 Observation care discharge
== END 2022-10-05 11:59 | disposition home or self-care (01) ==
LOC: ED 15:01 → PCU 15:29
PROVIDERS: Admitting Provider Family Medicine; Emergency Provider Emergency Medicine; PCP Internal Medicine; Visit Provider Student in an Organized Health Care Education/Training Program
DX: I48.0 Paroxysmal atrial fibrillation (principal); J44.9 Chronic obstructive pulmonary disease, unspecified; I50.32 Chronic diastolic (congestive) heart failure; I42.1 Obstructive hypertrophic cardiomyopathy; I11.0 Hypertensive heart disease with heart failure; Z79.01 Long term (current) use of 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; E78.5 Hyperlipidemia, unspecified; Z87.891 Personal history of nicotine dependence; R06.02 Shortness of breath; Z79.899 Other long term (current) drug therapy; Z95.0 Presence of cardiac pacemaker
CPT/HCPCS: 71045; 80048; 80053; 80061; 83735; 84443; 84484; 85025; 85610; 85730; 93005; 96374; 96375; 99218; 99285; J7030; A4216; G0378; J2405

== ENCOUNTER → 2022-10-14 | Outpatient (CLI) | payer MEDICARE, SELFPAY ==
--- NOTE | 2022-10-14 13:00 | ECHOD_ITS ---
Reason For Study: CHF Procedure This was a 2D Doppler, Color Flow transthoracic echocardiogram. Exam performed in department. Left Ventricle Normal LV size. Mild concentric left ventricular hypertrophy. Apical false tendon noted. Moderate segmental systolic dysfunction (see wall motion). The estimated ejection fraction is 35 %. Post operative septal motion. Diastolic function is indeterminate. Basal inferoseptal: Hypokinetic. Mid- inferoseptal : Hypokinetic. Mid-anteroseptal : Hypokinetic. Lateral [place] : Hypokinetic. Septal [place] : Hypokinetic. Right Ventricle Normal RV size. ICD or pacer leads identified within the right ventricle. Normal systolic function. Atria The left atrium is severely enlarged. The right atrium is severely enlarged. ICD or pacer leads identified within the right atrium. No doppler evidence for ASD. Mitral Valve Mild focal mitral valve calcification of the anterior leaflet. An annuloplasty ring is noted in the mitral position. MIld (1+) transvalvular insufficiency of the mitral valve. Tricuspid Valve Normal tricuspid valve. Moderate (2+) tricuspid valve insufficiency. Right ventricular systolic pressure estimated to be 40 mmHg. Aortic Valve Trisinus/trileaflet aortic valve. Mild diffuse aortic valve thickening. Moderate diffuse aortic valve calcification. Aortic sclerosis, no stenosis. Pulmonic Valve The pulmonic valve is not well visualized. Trivial pulmonic valve insufficiency. Great Vessels The aortic root is not well visualized. Pericardium/Pleural No pericardial effusion. MMode/2D Measurements & Calculations LVIDd: 4.0 cm IVSd: 1.4 cm LAV(MOD-bp): 178.5 ml LVIDs: 3.8 cm LVPWd: 1.4 cm LAV(MOD-bp) Indexed: 105.0 ml/m2 RVDd: 3.8 cm FS: 5.3 % LAV(MOD-sp2): 208.2 ml LAV(MOD-sp4): 144.3 ml SV(MOD-sp4): 20.0 ml SV(sp4-el): 22.4 ml LVAd ap4: 28.6 cm2 LVLd ap4: 8.4 cm EDV(MOD-sp4): 81.3 ml EDV(sp4-el): 82.9 ml LVAs ap4: 23.9 cm2 LVLs ap4: 8.0 cm ESV(MOD-sp4): 61.3 ml ESV(sp4-el): 60.5 ml EF(MOD-sp4): 24.6 % EF(sp4-el): 27.0 % Aortic Valve Planimetry: 1.6 cm2 LA A4 area: 37.3 cm2 LA dimension(2D): 6.8 cm RA A4 area: 36.7 cm2 Doppler Measurements & Calculations MV E max amanda: 110.4 cm/sec MV V2 max: 110.6 cm/sec Ao V2 max: 108.8 cm/sec MV max P.9 mmHg Ao max P.7 mmHg MV V2 mean: 66.5 cm/sec Ao V2 mean: 74.5 cm/sec MV mean P.1 mmHg Ao mean P.6 mmHg MV V2 VTI: 25.3 cm Ao V2 VTI: 18.6 cm AV (velocity ratio): 0.69 LV V1 max: 77.0 cm/sec MR max amanda: 397.9 cm/sec PA V2 max: 100.8 cm/sec LV V1 max P.4 mmHg MR max P.3 mmHg PA V2 mean: 69.0 cm/sec LV V1 mean P.4 mmHg LV V1 mean: 55.4 cm/sec LV V1 VTI: 12.9 cm TR max amanda: 284.4 cm/sec TR max P.4 mmHg ECHO/Echo Complete Interpretation Summary Moderate segmental systolic dysfunction (see wall motion). The estimated ejection fraction is 35 %. Post operative septal motion. Mild concentric left ventricular hypertrophy. Apical false tendon noted. The left atrium is severely enlarged. The right atrium is severely enlarged. An annuloplasty ring is noted in the mitral position. Mild focal mitral valve calcification of the anterior leaflet. MIld (1+) transvalvular insufficiency of the mitral valve. Moderate (2+) tricuspid valve insufficiency. Aortic sclerosis, no stenosis. Trivial pulmonic valve insufficiency. Right ventricular systolic pressure estimated to be 40 mmHg. Diastolic function is indeterminate. Ordering Physician: Arnold Bland Referring Physician: Cheyanne Holt M.D. Performed By: Zohra Silva RCS
== END | disposition home or self-care (01) ==
LOC: CVS 12:59
PROVIDERS: PCP Internal Medicine; Visit Provider Internal Medicine Cardiovascular Disease
DX: R06.02 Shortness of breath (principal); I42.1 Obstructive hypertrophic cardiomyopathy; I50.32 Chronic diastolic (congestive) heart failure; I48.0 Paroxysmal atrial fibrillation; I34.0 Nonrheumatic mitral (valve) insufficiency
CPT/HCPCS: 93306

== ENCOUNTER 2022-10-22 16:24 | Outpatient (RCR) | payer MEDICARE, SELFPAY ==
[2022-10-02 00:46] VITALS: BMI 23.5
[2022-10-22 16:45] LABS: INR Fingerstick 1.7; Prothrombin Time Fingerstick 20.8 SEC (11.7-14.9)
== END 2022-10-22 18:00 | disposition home or self-care (01) ==
LOC: LAB 16:24
PROVIDERS: Family Provider Internal Medicine; PCP Internal Medicine; Referring Provider Internal Medicine Cardiovascular Disease; Visit Provider Internal Medicine Cardiovascular Disease
DX: I48.19 Other persistent atrial fibrillation (principal); I48.92 Unspecified atrial flutter; Z79.899 Other long term (current) drug therapy
CPT/HCPCS: 36416; 85610

== ENCOUNTER 2022-11-27 12:17 | Outpatient (RCR) | payer MEDICARE, SELFPAY ==
[2022-11-02 04:38] VITALS: BMI 23.5
[2022-11-12 16:11] LABS: INR Fingerstick 1.9; Prothrombin Time Fingerstick 22.3 SEC (11.7-14.9)
[2022-11-12 17:59] LABS: Anion Gap 10 (5-15); BUN 18 mg/dL (7-18); BUN/Creat Ratio 15.8 RATIO (10-20); Chloride 106 mmol/L (98-107); Creatinine, Serum 1.14 mg/dL (0.55-1.02); EST Glomerular Filtration Rate 48 mL/min (>60); Est Glom Filt Rate - Afr Amer 58 mL/min (>60); Glucose 127 mg/dL (74-106); Potassium 3.6 mmol/L (3.5-5.1); Sodium Level 143 mmol/L (136-145)
[2022-11-19 15:36] LABS: INR Fingerstick 1.8; Prothrombin Time Fingerstick 21.8 SEC (11.7-14.9)
[2022-11-27 12:30] LABS: Prothrombin Time Fingerstick 23.3 SEC (11.7-14.9)
== END 2022-11-27 14:00 | disposition home or self-care (01) ==
LOC: LAB 12:17
PROVIDERS: Family Provider Internal Medicine; PCP Internal Medicine; Referring Provider Internal Medicine Cardiovascular Disease; Visit Provider Internal Medicine Cardiovascular Disease
DX: I48.19 Other persistent atrial fibrillation (principal); Z79.899 Other long term (current) drug therapy; I48.92 Unspecified atrial flutter
CPT/HCPCS: 36415; 36416; 80048; 85610

== ENCOUNTER 2022-12-25 14:10 | Outpatient (RCR) | payer MEDICARE, SELFPAY ==
[2022-12-03 08:26] VITALS: BMI 23.5
[2022-12-26 06:30] LABS: INR Fingerstick 1.8; Prothrombin Time Fingerstick 21.8 SEC (11.7-14.9)
== END 2022-12-25 18:00 | disposition home or self-care (01) ==
LOC: LAB 14:10
PROVIDERS: Family Provider Internal Medicine; PCP Internal Medicine; Referring Provider Internal Medicine Cardiovascular Disease; Visit Provider Internal Medicine Cardiovascular Disease
DX: I48.19 Other persistent atrial fibrillation (principal); Z79.899 Other long term (current) drug therapy
CPT/HCPCS: 36416; 85610

== ENCOUNTER 2023-01-01 12:09 | Outpatient (RCR) | payer MEDICARE, SELFPAY ==
[2022-12-30 22:44] VITALS: BMI 23.5
[2023-01-01 12:25] LABS: INR Fingerstick 2.2; Prothrombin Time Fingerstick 25.7 SEC (11.7-14.9)
== END 2023-01-30 23:21 | disposition home or self-care (01) ==
LOC: LAB 12:09
PROVIDERS: Family Provider Internal Medicine; PCP Internal Medicine; Referring Provider Internal Medicine Cardiovascular Disease; Visit Provider Internal Medicine Cardiovascular Disease
DX: I48.19 Other persistent atrial fibrillation (principal); I48.92 Unspecified atrial flutter; Z79.899 Other long term (current) drug therapy
CPT/HCPCS: 36416; 85610

== ENCOUNTER 2023-01-04 16:38 | Inpatient (IN) | payer MEDICARE, SELFPAY ==
[2023-01-04 16:39] VITALS: BP 169/91; PULSE 80; RESP 18; TEMP 36.8; O2SAT 92; BMI 23.8
--- NOTE | 2023-01-04 16:51 | RAD_ITS ---
INDICATION: fall EXAMINATION/TECHNIQUE: X-RAY - XR Hip Unilateral with Pelvis when performed; 2-3 Views COMPARISON: None. FINDINGS: PELVIC BONES: No displaced fracture, destructive or sclerotic lesions. Note that overlapping bowel shadows may however obscure fine detail. Sacroiliac joints are unremarkable. No widening of the pubic symphysis. HIPS: Possible intertrochanteric fracture of the right femur. No displaced fracture seen in this frontal view. SOFT TISSUES: No soft tissue swelling or gas. RAD/HIP, UNI W/ Pelvis 2-3 Views IMPRESSION: Possible intertrochanteric fracture of the right femur. Electronically Signed: Sridhar Bergman DO at 18:45 EST Reading Location ID and State: [facility] / [place] Tel [phone], Service support ,
--- NOTE | 2023-01-04 16:51 | EKG12_ITS ---
Test Reason : FALL Blood Pressure : / mmHG Vent. Rate : 080 BPM Atrial Rate : 075 BPM P-R Int : 000 ms QRS Dur : 162 ms QT Int : 518 ms P-R-T Axes : 000 -57 096 degrees QTc Int : 597 ms Ventricular-paced rhythm Abnormal ECG Confirmed by RIVAS FORTUNE, AG ([id number]), food expeditor NAYELI NEGRON ([id number]) on 01/05/2023 2:41:28 PM Referred By: Confirmed By:AG HATHAWAY MD
--- NOTE | 2023-01-04 16:53 | EDS_ITS ---
HPI HPI - Fall History of Present Illness Chief Complaint: Fall Detail of Chief Complaint: Fall within the return right hip Informant: patient Narrative Narrative: Patient presents the emergency department via EMS after sustaining a fall. Patient states that she went out to a store to get some cough syrup and when she was coming out she missed the step and fell onto her right hip. Patient unable to bear weight afterwards. Patient on Coumadin for history of A-fib. Patient tells me she had a cardiac ablation [address] [facility]. Patient denies striking her head. She denies headache or neck pain. She denies chest pain or abdominal pain. She denies any other injuries. [facility] Medical History (Updated 01/04/23 @ 18:[address] 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) LBBB (left bundle branch block) Long QT interval Non-Hodgkin lymphoma Nonrheumatic mitral (valve) insufficiency On home oxygen therapy Paroxysmal atrial fibrillation Paroxysmal atrial fibrillation Persistent atrial fibrillation Polyp, sigmoid colon Presence of permanent cardiac pacemaker (~12/10/21) Sick sinus syndrome Home Medications magnesium oxide 400 mg PO DAILY supplement 04/06/19 [History Last Taken 04/08/22] oxycodone 5 mg tablet 5 mg PO Q6H PRN pain 5 days #20 tabs 08/25/22 [Rx Last Taken Unknown] gabapentin 100 mg capsule 100 mg PO BID NERVE PAIN 10/04/22 [History Last Taken Unknown] warfarin 1 mg tablet See Rx Instructions .Route .COMPLEX blood thinner 10/05/22 [History Last Taken Unknown] lisinopril 20 mg tablet 20 mg PO DAILY blood pressure #90 tabs 10/16/22 [Rx Last Taken Unknown] metoprolol succinate 100 mg tablet,extended release 24 hr 100 mg PO DAILY #90 tabs 10/16/22 [Rx Last Taken Unknown] warfarin 3 mg tablet 3 mg PO .COMPLEX blood thinner #45 tabs 11/04/22 [Rx Last Taken Unknown] furosemide 40 mg tablet (Lasix) 40 mg PO DAILY #90 tabs 11/07/22 [Rx Last Taken Unknown] potassium chloride 20 mEq tablet,extended release 20 meq PO DAILY supplement- with lasix 11/07/22 [History Last Taken Unknown] Allergy/AdvReac Type Severity Reaction Status Date / Time allopurinol Allergy Rash Verified 01/04/23 16:43 tramadol AdvReac dizzy Verified 01/04/23 16:43 Family History Father Heart disease Hypertension Mother No cardiac disease Surgical History History of bladder surgery History of cardioversion (~04/25/20) History of left heart catheterization (LHC) (~11/30/17) History of mitral valve repair (~07/30/18) History of ventricular septal myectomy (~07/30/18) Social History household members: none Smoking Status: Former smoker pack-years: 58 how long ago did patient quit smokin years ago alcohol intake: never substance use type: does not use caffeine: No what type of physical activity do you participate in: walking ROS ROS ED Review of Systems ROS Unobtainable: other Constitutional Constitutional ED: Reports lethargy; Denies chills, fever(s), sweats or weight loss Eyes Eyes: Denies blurry vision, change in vision or diplopia ENT ENT ED: Denies rhinorrhea or sore throat Cardiovascular Cardiovascular: Reports chest pain and racing heartbeat; Denies orthopnea Respiratory/Chest Respiratory/Chest: Reports dyspnea and dyspnea on exertion; Denies cough, orthopnea or sputum Gastrointestinal Gastrointestinal: Denies abdominal pain, diarrhea, nausea or vomiting Genitourinary Genitourinary ED: Denies dysuria, hematuria or urinary frequency Musculoskeletal Musculoskeletal: Reports other Details: Right hip pain ; Denies arthralgias, back pain, myalgias or neck pain Integumentary Denies abscess, Abrasions or rash Neurologic Neurologic: Denies headache(s) or weakness Psychiatric Psychiatric: Denies anxiety, depression or suicidal thoughts Endocrine Endocrinology: Denies polydipsia, polyphagia or polyuria Hematologic/Lymphatic Hematologic/Lymphatic: Denies easy bleeding, easy bruising or lymphadenopathy Allergic/Immunologic Allergic/Immunologic ED: Denies mouth swelling, tongue swelling or urticaria EXAM Physical Exam Const Vital Signs: 01/04/23 16:39 01/04/23 16:44 Temperature 98.2 F Temperature Source Oral Pulse Rate 80 Respiratory Rate 18 Respiratory Effort Normal Non-Labored Respiratory Depth Normal Respiratory Pattern Normal Blood Pressure 169/91 H Blood Pressure Mean 117 Pulse Ox 92 Oxygen Delivery Method Room Air Positive well nourished and well developed General Appearance ED: well developed and NAD HEENT Reports TM's clear and moist mucous membranes normocephalic and atraumatic; Negative for trauma or tenderness Tympanic Membrane ED: Yes TM's clear Eyes PERRL and EOMs intact bilaterally General Eye ED: Negative for pale conjunctiva or scleral icterus Neck no lymphadenopathy, supple and no JVD General: Negative for tenderness Chest Wall inspection of chest normal and palpation of chest normal Chest: Negative for tenderness Resp normal respiratory effort and clear to auscultation bilaterally Effort and Inspection: Negative for respiratory distress or pain with movement Auscultation: Negative for rhonchi, wheezes or diminished lung sounds Cardio regular rate, regular rhythm, S1 normal heart sound, S2 normal heart sound and no murmurs Peripheral Pulses: pulses 2+ throughout GI normal to inspection, nondistended, normoactive bowel sounds, soft to palpation, non-tender, non-distended and no masses Back/Spine no CVA tenderness and no thoracic nor lumbar tenderness Extremity Extremity Narrative: Patient has a binder around her pelvis and hips. Patient wanting to keep the hip flexed. She resists extension of the hip. She has tenderness to palpation over the proximal femoral neck. Neurovascularly intact distally. General Extremety ED: Negative for edema General Extremity: Negative for edema Neuro oriented x3, CN's II-XII intact bilaterally, no sensory deficits noted and gait normal Sensorium / Orientation: awake, alert, oriented to person, oriented to place and oriented to time Motor Exam: strength 5/5 throughout and strength abnormal Psych mental status grossly normal Skin no rashes or lesions noted and no wounds MDM MDM MDM Narrative Medical decision making narrative: Patient presents after a fall with injury to the right hip. Clinically I feel hips likely fracture. Patient was given morphine and Zofran for pain. CBC with differential obtained was unremarkable. Chemistries unremarkable. INR was 2.4. Troponin was slightly elevated 84 however I suspect this is likely related to her recent ablation. Lab Data Attestation: I reviewed the patient's lab results. Labs: Laboratory Results - last 24 hr 01/04/23 01/04/23 01/04/23 17:03 17:03 17:03 WBC 7.6 RBC 4.37 Hgb 11.2 L Hct 37.3 MCV 85.4 MCH 25.6 L MCHC 30.0 L RDW Std Deviation 47.4 H RDW Coeff of Neel[place] 15.2 H Plt Count 206 MPV 10.3 Immature Gran % (Auto) 0.300 Neut % (Auto) 72.0 H Lymph % (Auto) 18.5 L [place] % (Auto) 7.4 Eos % (Auto) 1.3 Baso % (Auto) 0.5 Absolute Neuts (auto) 5.4 Absolute Lymphs (auto) 1.40 Nucleated RBC % 0 PT 25.9 H INR 2.4 Sodium 142 Potassium 3.5 Chloride 106 Carbon Dioxide 30.0 Anion Gap 6 BUN 12 Creatinine 0.82 Estim Creat Clear Calc 46.78 Est GFR (MDRD) Af Amer 86 Est GFR (MDRD) Non-Af 71 BUN/Creatinine Ratio 14.7 Glucose 108 H Calcium 8.7 Troponin I High Sens 84 H Radiography Chest X-Ray - ED: 1 View Diagnostic Testing: Clinical Impression(s) from Imaging Studies Chest X-Ray 01/04/23 17:20 IMPRESSION: Mild interstitial prominence. Left basilar atelectasis. Electronically Signed: Sridhar Bergman DO at 18:18 EST Reading Location ID and State: [address] [place] [address] Tel [phone], Service support , 1 view chest x-ray obtained interpreted by myself as no acute evidence of infiltrate or pneumothorax. Radiology felt there was mild interstitial prominence and left basilar atelectasis. Three-view x-ray of right hip and pelvis obtained interpreted by myself as intertrochanteric right hip fracture. Official report from radiology pending. EKG Initial EKG: Attestation: I personally reviewed and interpreted this EKG as follows: Comments: Sinus rhythm with a rate of 80 bpm with left bundle branch block. Discharge Plan Dx/Rx/DC Orders Clinical Impression: Fall, Closed fracture of right hip, History of atrial fibrillation Disposition Disposition: Acute Care [facility]
[2023-01-04] MEDS: 0.9% Normal Saline 1,000 ML 150 ML IV (17:08)
[2023-01-04] MEDS: Morphine 4 MG/ML Syringe IV ×2 (17:08→18:05)
[2023-01-04] MEDS: Ondansetron 4 MG/2 ML Vial IV (17:09)
[2023-01-04 17:12] LABS: Absolute Neutrophil Count 5.4 X10^3/uL (2.0-7.7); Basophil# 0.04 X10^3/uL; Basophil% 0.5 % (0-1); Eosinophils% 1.3 % (0-5); Hematocrit 37.3 % (37-47); Hemoglobin 11.2 g/dL (12.0-15.0); Lymphocyte % 18.5 % (19-41); Mean Corpuscular Hgb 25.6 pg (27.0-32.0); Mean Corpuscular Volume 85.4 fL (81-99); Mean Platelet Vol. 10.3 fl (6.2-12.0); Monocyte# 0.56 X10^3/uL; Monocyte% 7.4 % (0-10); NRBC Flagged by Analyzer 0 % (0-5); Neutrophil # 5.44 X10^3/uL (2.7-7.7); Platelet Count 206 K/mm3 (150-450); RBC Distribution Width CV 15.2 % (11.6-14.6); RBC Distribution Width SD 47.4 fl (35.1-43.9); Red Blood Count 4.37 M/mm3 (4.2-5.4); White Blood Count 7.6 K/mm3 (4.4-11.0)
--- NOTE | 2023-01-04 17:20 | RAD_ITS ---
INDICATION: fall EXAMINATION/TECHNIQUE: X-RAY - XR Chest 1 View COMPARISON: None. FINDINGS: LINES/DEVICES: Stable sternotomy wires and left-sided pacemaker. LUNGS: No consolidation, edema or effusion. Mild interstitial prominence. Left basilar atelectasis. No pneumothorax. MEDIASTINUM AND CARDIOVASCULAR STRUCTURES: Cardiac silhouette not enlarged. Central airways and mediastinal contour are unremarkable. BONES AND SOFT TISSUES: Unremarkable. RAD/Chest 1 View (Portable) IMPRESSION: Mild interstitial prominence. Left basilar atelectasis. Electronically Signed: Sridhar Bergman DO at 18:18 EST ,
[2023-01-04 17:32] LABS: Anion Gap 6 (5-15); BUN 12 mg/dL (7-18); BUN/Creat Ratio 14.7 RATIO (10-20); Calcium,Total 8.7 mg/dL (8.5-10.1); Chloride 106 mmol/L (98-107); Creatinine, Serum 0.82 mg/dL (0.55-1.02); EST Glomerular Filtration Rate 71 mL/min (>60); Est Glom Filt Rate - Afr Amer 86 mL/min (>60); Estimated Creatinine Clearance 46.78 ml/min; Glucose 108 mg/dL (74-106); Potassium 3.5 mmol/L (3.5-5.1); Sodium Level 142 mmol/L (136-145); Troponin-I HS 84 pg/mL (3.0-54.0)
[2023-01-04 17:37] LABS: International Normalized Ratio 2.4; Prothrombin Time (Protime)PT. 25.9 SECONDS (11.7-14.9)
--- NOTE | 2023-01-04 18:40 | PCM.HP.STD ---
HPI - General General Date of Admission: 01/04/23 Date of Service: 01/04/23 Chief Complaint: Pain status post mechanical fall HPI Narrative MICHELLE JIMENEZ, is a 82 F who presented to the emergency department at [facility] on 01/04/2023 after sustaining a mechanical fall and having left hip pain. She went to the store to get some cough syrup as she developed a cough about 5 days ago. She was coming out of the store and missed a step and fell onto her right hip. Following that she was unable to bear any weight. She is on Coumadin at baseline for history of A-fib and underwent a cardiac ablation on Thursday at [facility]. She denied hitting her head but is having pretty significant right hip pain. She reports her cough is overall better and denying any fever or chills or any shortness of breath. She admits that she does wear some oxygen at night when sleeping but never during the day. Initially oxygen saturations were 89% on room air and she was placed on 2 L however at the time my examination we turned off her oxygen and when she was sustaining oxygen saturations between 93 and 96%. The emergency department discussed the case with Dr. Durán and he stated he would see her tomorrow and likely plan for surgery on Thursday. The last dose of her Coumadin was on 01/04/2020 3 in the evening. INR was 2.5 on admission. Temperature on presentation was 98.2 with a Tmax of 99.5 during her hospital course thus far, blood pressure was 169/91, heart rate 80, respiratory rate been 18-20 oxygen saturations are 92% on room air. CBC shows a mild anemia which appears to be new. Hemoglobin is 11.2 and this is normocytic. I do expect she will have quite a bit of bleeding at her hip fracture with her INR being 2.5. Chemistry panel is unremarkable. She did have a troponin that was obtained. The reason is unclear however it was elevated to 84. The patient is not having any chest pain. Her EKG shows a chronic left bundle branch block with normal intervals and no ST-T wave changes concerning for acute ischemia. X-ray of the hip and pelvis were suggestive of an intertrochanteric fracture of the right femur. 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) LBBB (left bundle branch block) Long QT interval Non-Hodgkin lymphoma Nonrheumatic mitral (valve) insufficiency On home oxygen therapy Paroxysmal atrial fibrillation Paroxysmal atrial fibrillation Persistent atrial fibrillation Polyp, sigmoid colon Presence of permanent cardiac pacemaker (~12/10/21) Sick sinus syndrome Home Medications magnesium oxide 400 mg PO DAILY supplement 04/06/19 [History Last Taken 04/08/22] oxycodone 5 mg tablet 5 mg PO Q6H PRN pain 5 days #20 tabs 08/25/22 [Rx Last Taken Unknown] gabapentin 100 mg capsule 100 mg PO BID NERVE PAIN 10/04/22 [History Last Taken Unknown] warfarin 1 mg tablet See Rx Instructions .Route .COMPLEX blood thinner 10/05/22 [History Last Taken Unknown] lisinopril 20 mg tablet 20 mg PO DAILY blood pressure #90 tabs 10/16/22 [Rx Last Taken Unknown] metoprolol succinate 100 mg tablet,extended release 24 hr 100 mg PO DAILY #90 tabs 10/16/22 [Rx Last Taken Unknown] warfarin 3 mg tablet 3 mg PO .COMPLEX blood thinner #45 tabs 11/04/22 [Rx Last Taken Unknown] furosemide 40 mg tablet (Lasix) 40 mg PO DAILY #90 tabs 11/07/22 [Rx Last Taken Unknown] potassium chloride 20 mEq tablet,extended release 20 meq PO DAILY supplement- with lasix 11/07/22 [History Last Taken Unknown] Allergy/AdvReac Type Severity Reaction Status Date / Time allopurinol Allergy Rash Verified 01/04/23 16:43 tramadol AdvReac dizzy Verified 01/04/23 16:43 Family History Father Heart disease Hypertension Mother No cardiac disease Surgical History (Updated 01/04/23 @ 19:[address] Janet Huff DO) H/O cardiac radiofrequency ablation History of bladder surgery History of cardioversion (~04/25/20) History of left heart catheterization (LHC) (~01/29/18) History of mitral valve repair (~07/30/18) History of ventricular septal myectomy (~07/30/18) Social History household members: none Smoking Status: Former smoker pack-years: 58 how long ago did patient quit smokin years ago alcohol intake: never substance use type: does not use caffeine: No what type of physical activity do you participate in: walking ROS Constitutional Constitutional: Denies anorexia, change in weight, chills, fatigue, fever(s), malaise, night sweats, weakness or other Eyes Eyes: Denies blurry vision, change in eye color, change in vision, discharge from eye(s), double vision, erythema, eye pain, loss of vision or other ENT HEENT: Denies abnormal hearing, dysphagia, ear pain, epistaxis, headache(s), hearing loss, nasal congestion, nasal discharge, post nasal drip, sinus pressure, sore throat or other Cardiovascular Cardiovascular: Denies chest pain, claudication, dyspnea on exertion, edema, lightheadedness, orthopnea, palpitations, paroxysmal nocturnal dyspnea, rapid heart rate, syncope or other Respiratory/Chest Respiratory/Chest: Reports cough, excessive phlegm production and productive cough; Denies dyspnea, hemoptysis, shortness of breath at rest, shortness of breath with exertion, wheezing or other Gastrointestinal Gastrointestinal: Denies abdominal pain, coffee ground emesis, constipation, diarrhea, dyspepsia, hematemesis, hematochezia, loose stools, melena, nausea, vomiting or other Genitourinary Genitourinary: Denies burning urination, difficulty urinating, dysuria, hematuria, nocturia, urinary frequency, urinary hesitancy, urinary incontinence, urinary urgency or other Musculoskeletal Musculoskeletal: Reports joint pain and other Details: Inability to bear weight on right lower extremity ; Denies arthralgias, back pain, joint stiffness, joint swelling, myalgias or neck pain Neurologic Neurologic: Denies abnormal gait, abnormal speech, confusion, disequilibrium, dizziness, focal weakness, headache(s), numbness, paresthesias, seizure-like activity, seizures, syncope, tingling, tremor(s) or other Psychiatric Psychiatric: Denies anxiety, depression, homicidal ideation, suicidal ideation or other Endocrine Endocrinology: Denies change in body appearance, cold intolerance, excessive sweating, heat intolerance, polydipsia, polyuria or other Hematologic/Lymphatic Hematologic/Lymphatic: Reports easy bleeding and easy bruising; Denies anemia, lymphadenopathy or other Allergic/Immunologic Allergic/Immunologic: Denies rhinitis, hives, eczemia, asthma or other Vital Signs Vital Signs Vital Signs: 01/04/23 16:39 01/04/23 16:44 Temperature 98.2 F Temperature Source Oral Pulse Rate 80 Respiratory Rate 18 Respiratory Effort Normal Non-Labored Respiratory Depth Normal Respiratory Pattern Normal Blood Pressure 169/91 H Blood Pressure Mean 117 Pulse Ox 92 Oxygen Delivery Method Room Air Weight Weight: 65 kg Body Mass Index (BMI) 23.8 Physical Exam Const alert, oriented x3, no apparent distress and well nourished Constitutional Narrative: Very pleasant, elderly white female, lying in bed, appears comfortable nontoxic, family member at bedside General Appearance: cooperative HEENT normocephalic, head/scalp atraumatic, hearing grossly normal bilaterally and moist oral mucous membranes HEENT Narrative: Dentures in place, Mallampati 2-3, no thrush Eyes PERRL, EOMs intact bilaterally and conjunctivae normal Eyes Narrative: No scleral icterus Neck no lymphadenopathy and supple Neck Narrative: Trachea midline, no thyroid enlargement Resp normal respiratory effort, no retractions and no use of accessory muscles Resp Narrative: Diminished but clear Auscultation: Negative for rales, rhonchi or wheezes Cardio regular rate, regular rhythm, S1 normal heart sound, S2 normal heart sound, no murmurs, no rub, no gallops and no clicks GI normal to inspection, nondistended, normoactive bowel sounds, soft to palpation and non-tender Extremity no clubbing, cyanosis or edema Extremity Narrative: Plus pedal pulses Skin no rashes or lesions noted, no wounds, skin turgor normal, no jaundice, no petechiae and no mottling Neuro oriented x3 and CN's II-XII intact bilaterally Neuro Narrative: Decreased ability to move right lower extremity secondary to hip pain but no focal deficits concerning for neurological defect Speech: speech normal Psych affect normal Psych Narrative: Very pleasant, appropriately interactive Results Lab / Micro Data Result Diagrams: 01/04/23 17:03 01/04/23 17:03 Labs: Laboratory Results - last 24 hr 01/04/23 17:03: WBC 7.6, RBC 4.37, Hgb 11.2 L, Hct 37.3, MCV 85.4, MCH 25.6 L, MCHC 30.0 L, RDW Std Deviation 47.4 H, RDW Coeff of Neelima 15.2 H, Plt Count 206, MPV 10.3, Immature Gran % (Auto) 0.300, Neut % (Auto) 72.0 H, Lymph % (Auto) 18.5 L, [place] % (Auto) 7.4, Eos % (Auto) 1.3, Baso % (Auto) 0.5, Absolute Neuts (auto) 5.4, Absolute Lymphs (auto) 1.40, Nucleated RBC % 0 01/04/23 17:03: PT 25.9 H, INR 2.4 01/04/23 17:03: Sodium 142, Potassium 3.5, Chloride 106, Carbon Dioxide 30.0, Anion Gap 6, BUN 12, Creatinine 0.82, Estim Creat Clear Calc 46.78, Est GFR (MDRD) Af Amer 86, Est GFR (MDRD) Non-Af 71, BUN/Creatinine Ratio 14.7, Glucose 108 H, Calcium 8.7, Troponin I High Sens 84 H Radiology Impression Chest X-Ray 01/04/23 17:20 IMPRESSION: Mild interstitial prominence. Left basilar atelectasis. Electronically Signed: Sridhar Bergman DO at 18:18 EST Reading Location ID and State: [address] [place] [address] Tel [phone], Service support , Assessment & Plan Assessment/Plan (1) Fall: (2) Closed fracture of right hip: (3) Anemia: (4) Elevated INR: (5) Elevated troponin I level: PLAN: Plan Right intertrochanteric fracture status post mechanical fall -Check vitamin D level -Hold Coumadin -PT/OT consultation following orthopedic surgery -P.o./IV pain medications available -Bowel regimen -EKG is unchanged from previous -Chest x-ray is unremarkable -Patient with recent echocardiogram on 10/14/2022 and showed an EF of 35% with mild concentric LVH and right ventricular systolic pressure of 40 mmHg -Orthopedic surgery consult-Dr. Durán -We will consult cardiology for cardiac clearance Elevated troponin -Slight elevation on presentation however patient did undergo cardiac ablation on Thursday -Cycle cardiac enzymes -EKG with no acute changes -Patient is chest pain-free -Monitor on telemetry Hypoxia/shortness of breath -Patient with mild hypoxia on presentation -Initially required 2 L however I was able to turn her down to room air with oxygen saturations 93 to 95% -Patient admits to wearing oxygen sometimes nocturnally but never during the day -Check COVID/flu -Check respiratory viral panel -Pulmonary toilet with as needed albuterol -Incentive spirometry -Mucinex ordered Elevated INR -Patient on Coumadin for history of atrial fibrillation -Hold Coumadin -INR 2.5 on presentation -Last Coumadin dose was p.m. of 01/03/2023 -Check INR daily Normocytic anemia -This appears to be new -May be related to acute blood loss with fracture -Repeat CBC in a.m. -No signs of acute bleeding Atrial fibrillation/sick sinus syndrome -Status post ablation -Currently in sinus -Coumadin on hold -Continue metoprolol -Patient has pacemaker HFrEF/diastolic heart failure -Currently compensated -Last echo on 10/14/2022 shows an EF of 35% -Hold light preparation for surgery and restart postoperatively -Continue home metoprolol -Continue home Lasix Hypertension/hyperlipidemia -Lifestyle changes for elevated lipids -Continue metoprolol -Hold lisinopril in preparation for surgery and restart following -As needed hydralazine for systolic pressure greater than 160 History of mitral valve repair with septal myomectomy -Consult cardiology for clearance -Has been stable Neuropathy/chronic pain -Continue gabapentin DVT prophylaxis -INR is currently 2.5 -Holding for surgery and will likely restart Coumadin postoperatively -May need to initiate chemoprophylaxis until INR is therapeutic postoperatively CODE STATUS -Full code as verified on admission Charges/Coding Visit Charges Inpatient E&M: 98573 Init Hosp L3
[2023-01-04 18:54] VITALS: BP 168/87; PULSE 80; RESP 20; TEMP 37.5; O2SAT 92
[2023-01-04 19:52] VITALS: BMI 22.6
[2023-01-04 20:07] VITALS: BP 160/80; PULSE 81; RESP 18; TEMP 36.7; O2SAT 95
[2023-01-04] MEDS: Gabapentin 100 MG Capsule PO (20:18)
[2023-01-04] MEDS: oxyCODONE 5 MG Tablet PO (20:19)
[2023-01-04] MEDS: guaiFENesin 1,200 MG Tablet 1200 MG PO (20:19)
[2023-01-04 20:21] VITALS: O2SAT 95
[2023-01-04] MEDS: 0.9% Saline Lock 10 ML Syringe IV (20:24)
[2023-01-04 21:05] VITALS: BP 160/80; PULSE 81
[2023-01-04] MEDS: Metoprolol(XL)Succ 100 MG Tablet PO (21:05)
[2023-01-04 21:07] LABS: Troponin-I HS 84 pg/mL (3.0-54.0)
[2023-01-05] VITALS (7 sets, daily range): BP systolic 118–133; BP diastolic 60–87; PULSE 80–84; RESP 18–22; TEMP 36.5–37.1; O2SAT 92–96; BMI 22.6; BMI 21.7
[2023-01-05 00:29] LABS: Troponin-I HS 74 pg/mL (3.0-54.0)
[2023-01-05] MEDS: HYDROmorphone Inj 0.2 MG/ML SYRINGE IV ×2 (01:15→09:10)
[2023-01-05] MEDS: 0.9% Saline Lock 10 ML Syringe IV ×3 (01:17→20:48)
[2023-01-05] MEDS: Famotidine 20 MG Tablet PO (02:02)
[2023-01-05] MEDS: oxyCODONE 5 MG Tablet PO ×2 (04:47→12:35)
[2023-01-05 05:27] LABS: Absolute Lymphocyte Count 1.74 X10^3/uL (0.83-4.51); Absolute Neutrophil Count 8.5 X10^3/uL (2.0-7.7); Basophil# 0.06 X10^3/uL; Basophil% 0.5 % (0-1); Eosinophil# 0.16 X10^3/uL; Eosinophils% 1.4 % (0-5); Hematocrit 39.5 % (37-47); Hemoglobin 12.2 g/dL (12.0-15.0); Lymphocyte # 1.74 X10^3/ul (0.83-4.51); Lymphocyte % 15.3 % (19-41); Mean Corp Hgb Conc 30.9 g/dL (32-36); Mean Corpuscular Hgb 25.8 pg (27.0-32.0); Mean Corpuscular Volume 83.5 fL (81-99); Mean Platelet Vol. 10.9 fl (6.2-12.0); Monocyte% 7.9 % (0-10); NRBC Flagged by Analyzer 0 % (0-5); Neutrophil # 8.47 X10^3/uL (2.7-7.7); Neutrophil % 74.5 % (47-70); Platelet Count 252 K/mm3 (150-450); RBC Distribution Width CV 15.2 % (11.6-14.6); RBC Distribution Width SD 46.4 fl (35.1-43.9); Red Blood Count 4.73 M/mm3 (4.2-5.4); White Blood Count 11.4 K/mm3 (4.4-11.0)
[2023-01-05 05:45] LABS: International Normalized Ratio 2.7
[2023-01-05 06:12] LABS: ALB/GLOB Ratio 0.8 RATIO (0.9-2.4); AST(SGOT) 15 U/L (15-37); Alanine Aminotransfer ALT/SGPT 16 U/L (13-56); Albumin, Serum 2.7 g/dL (3.2-5.0); Alkaline Phosphatase 80 U/L (45-117); Anion Gap 6 (5-15); BUN 13 mg/dL (7-18); BUN/Creat Ratio 15.7 RATIO (10-20); Chloride 106 mmol/L (98-107); Creatinine, Serum 0.83 mg/dL (0.55-1.02); EST Glomerular Filtration Rate 70 mL/min (>60); Est Glom Filt Rate - Afr Amer 84 mL/min (>60); Estimated Creatinine Clearance 49.94 ml/min; Globulin 3.2 g/dL (2.2-4.2); Glucose 106 mg/dL (74-106); Magnesium 1.5 mg/dL (1.6-2.6); Phosphorus 3.1 mg/dL (2.5-4.9); Potassium 3.9 mmol/L (3.5-5.1); Protein, Total 5.9 g/dL (6.4-8.2); Sodium Level 140 mmol/L (136-145); Thyroid Stim Hormone (TSH) 0.76 uIU/mL (0.358-3.74)
[2023-01-05] MEDS: Potassium Chloride Oral Tablet 20 MEQ PO (07:59)
[2023-01-05 08:29] LABS: Vitamin D,25 Hydroxy 34.3 ng/mL
--- NOTE | 2023-01-05 08:29 | PN.HOSP_ITS ---
Reason for Visit Reason for Visit: Diagnoses Anemia, unspecified (01/04/23) Other specified abnormalities of plasma proteins (01/04/23) Abnormal coagulation profile (01/04/23) Fracture of unspecified part of neck of right femur, initial encounter for closed fracture (01/04/23) Unspecified fall, initial encounter (01/04/23) Subjective Subjective Patient is an 82-year-old lady who fell off and Subsequently developed right hip pain presented to the emergency department imaging studies demonstrated right intertrochanteric fracture admitted to regular nursing floor with consultation placed to orthopedic surgery Objective Data Objective Data Vital Signs: Vital Signs Temp Pulse Resp BP Pulse Ox O2 Del Method O2 Flow Rate 98.7 F 82 18 133/87 H 94 Nasal Cannula 2 01/05/23 07:57 01/05/23 07:57 01/05/23 07:57 01/05/23 07:57 01/05/23 07:57 01/05/23 07:57 01/05/23 07:53 Oxygen Flow Rate (L/min) 2 Oxygen Delivery Method Nasal Cannula Weight: 65.5 kg Body Mass Index (BMI) 22.6 Intake & Output: Intake and Output for Last 24 Hours 01/03/23 01/04/23 01/05/23 23:59 23:59 23:59 Intake Total 582.5 / 582.5 Output Total 400 / 400 Balance 582.5 / 482.5 -400 / -400 Lab / Micro Data Result Diagrams: 01/05/23 04:48 01/05/23 04:48 Labs: Laboratory Results - last 24 hr 01/04/23 17:03: WBC 7.6, RBC 4.37, Hgb 11.2 L, Hct 37.3, MCV 85.4, MCH 25.6 L, MCHC 30.0 L, RDW Std Deviation 47.4 H, RDW Coeff of Neelima 15.2 H, Plt Count 206, MPV 10.3, Immature Gran % (Auto) 0.300, Neut % (Auto) 72.0 H, Lymph % (Auto) 18.5 L, [place] % (Auto) 7.4, Eos % (Auto) 1.3, Baso % (Auto) 0.5, Absolute Neuts (auto) 5.4, Absolute Lymphs (auto) 1.40, Nucleated RBC % 0 01/04/23 17:03: PT 25.9 H, INR 2.4 01/04/23 17:03: Sodium 142, Potassium 3.5, Chloride 106, Carbon Dioxide 30.0, Anion Gap 6, BUN 12, Creatinine 0.82, Estim Creat Clear Calc 46.78, Est GFR (MDRD) Af Amer 86, Est GFR (MDRD) Non-Af 71, BUN/Creatinine Ratio 14.7, Glucose 108 H, Calcium 8.7, Troponin I High Sens 84 H 01/04/23 20:30: Troponin I High Sens 84 H 01/04/23 22:25: Troponin I High Sens 74 H 01/05/23 04:48: Vitamin D 25-Hydroxy 34.3 01/05/23 04:48: WBC 11.4 H, RBC 4.73, Hgb 12.2, Hct 39.5, MCV 83.5, MCH 25.8 L, MCHC 30.9 L, RDW Std Deviation 46.4 H, RDW Coeff of Neelima 15.2 H, Plt Count 252, MPV 10.9, Immature Gran % (Auto) 0.400, Neut % (Auto) 74.5 H, Lymph % (Auto) 15.3 L, [place] % (Auto) 7.9, Eos % (Auto) 1.4, Baso % (Auto) 0.5, Absolute Neuts (auto) 8.5 H, Absolute Lymphs (auto) 1.74, Nucleated RBC % 0 01/05/23 04:48: PT 28.0 H, INR 2.7 01/05/23 04:48: Sodium 140, Potassium 3.9, Chloride 106, Carbon Dioxide 28.0, Anion Gap 6, BUN 13, Creatinine 0.83, Estim Creat Clear Calc 49.94, Est GFR ( MDRD) Af Amer 84, Est GFR (MDRD) Non-Af 70, BUN/Creatinine Ratio 15.7, Glucose 106, Calcium 8.0 L, Phosphorus 3.1, Magnesium 1.5 L, Total Bilirubin 0.50, AST 15, ALT 16, Alkaline Phosphatase 80, Total Protein 5.9 L, Albumin 2.7 L, Globulin 3.2, Albumin/Globulin Ratio 0.8 L, TSH 0.76 Micro: Microbiology 01/04/23 20:17 Mucosa - Nose Respiratory Panel (PCR) - Final 01/04/23 20:17 Nasal Secretion SARS-CoV-2 & FLU Antigen (Rapid) - Final Radiography Diagnostic Testing: Radiology Impression Hip/Pelvis X-Ray 01/04/23 16:51 IMPRESSION: Possible intertrochanteric fracture of the right femur. Electronically Signed: Sridhar Bergman DO at 18:45 EST , Chest X-Ray 01/04/23 17:20 IMPRESSION: Mild interstitial prominence. Left basilar atelectasis. Electronically Signed: Sridhar Bergman DO at 18:18 EST , Physical Exam Narrative GENERAL: cooperative HEENT: Atraumatic; normocephalic EYES; Anicteric, Normal Conjunctiva NECK; supple, normal thyroid, RESPIRATORY: Diminished to auscultation CARDIOVASCULAR: Regular S1 S2, GI: soft, normoactive bowel sounds, : No Renal angle tenderness; EXTREMITIES: Right lower extremity externally rotated, MUSCULOSKELETAL: no muscle wasting NEURO: Awake; no lateralizing signs. SKIN: No Rash PSYCH; Flat affect Assessment & Plan Assessment/Plan (1) Fall: (2) Closed fracture of right hip: (3) Anemia: (4) Elevated INR: (5) Elevated troponin I level: PLAN: Plan Patient is an 82-year-old lady who fell off and Subsequently developed right hip pain presented to the emergency department imaging studies demonstrated right intertrochanteric fracture admitted to regular nursing floor with consultation placed to orthopedic surgery 1. Right intertrochanteric fracture ? Following a mechanical fall admitted to regular nursing floor managed with immobilization pain medication with consultation placed to orthopedic surgery Patient has significant cardiac history including cardiomyopathy with an ejection fraction of 35%. She recently underwent ablation as well and was found to have elevated troponin. Consult placed to cardiology prior to patient undergoing any surgical intervention 2. Elevated troponin ? Secondary to probably muscle injury following patient recent ablation 3. Acute hypoxia ? Possibly related to atelectasis patient work-up so far negative to date 4. Paroxysmal A-fib ? Rate controlled on systemic anticoagulation with Coumadin INR on admission was 2.5 which is currently being held next patient of patient procedure. Patient underwent ablation days prior to her admission 4. Sick sinus syndrome ? Status post pacemaker placement 6. Chronic congestive heart failure with reduced ejection fraction ? Patient is on furosemide did continue. Also on beta-blockers continued as well 7. Hypertension - Blood pressure controlled, home medications continued with dose adjustment as needed 8. Valvular heart disease ? With history of mitral valve repair with septal myomectomy 9. Chronic neuropathic pain ? Patient is on gabapentin did continue 10. DVT prophylaxis ? Patient is on Coumadin no need for additional measures Time spent in the patient's overall evaluation,decision-making process, review of diagnostic data, adjustment of management, discussion with other providers, nursing nursing and ancillary staff involved in patient's care documentation,60 Minutes Advance planning; did discuss with the patient and family regarding advanced d irectives as well as CODE STATUS. Did explain the various scenarios involved ( FULL CODE, DNR CCA, DNR CCA with no intubation, and DNR CC and what each meant) patient elected to full code with CPR and intubation if needed. Order was placed. Time spent on discussion 18 minutes. Charges/Coding Visit Charges Inpatient E&M: 69653 Subs Hosp L3 Procedures Hospitalists Procedures: 51647 Advncd Care Plan 30 Min
--- NOTE | 2023-01-05 09:06 | CON.PCM.CA_ITS ---
Assessment & Plan Assessment/Plan (1) Elevated troponin I level: PLAN: The patient has a mildly elevated high-sensitivity troponin I level. It is not significantly changed. At the present time this appears compatible with the patient's recent AV node ablation procedure superimposed upon her chronic cardiovascular disease process. The patient does not have classic signs or symptoms or other objective findings suggestive of an acute coronary syndrome. (2) Hypertrophic cardiomyopathy: PLAN: The patient has a history of a hypertrophic obstructive type cardiomyopathy as previously documented. At the moment she has been through extensive noninvasive, invasive, and surgical therapy. She will continue cardiovascular medical management. This includes her metoprolol XL at 100 mg p.o. daily. (3) History of ventricular septal myectomy: PLAN: The patient has undergone previous ventricular septal myectomy as noted based upon her concerns of her hypertrophic obstructive cardiomyopathy. She has undergone subsequent noninvasive valuation with her most recent studies as noted. She will continue medical therapy as deemed appropriate. (4) History of mitral valve repair: PLAN: Also, based upon the patient's previous cardiovascular diagnosis she underwent mitral valve repair. Her most recent noninvasive studies were reviewed. She will continue medical management as deemed appropriate. (5) S/P left atrial appendage ligation: PLAN: The patient underwent evaluation care for left atrial appendage during her open heart surgery procedure as noted above. At the moment she will continue medical therapy which has included her anticoagulant therapy based on her history of underlying atrial dysrhythmias. If at some point in time she cannot tolerate anticoagulant therapy then hopefully her left atrial appendage therapy will be sufficient to minimize the risk of any thromboembolic disease. (6) Atrial fibrillation and flutter: PLAN: The patient has a history of atrial dysrhythmias requiring medical management and multiple synchronized biphasic DC cardioversion procedures. Based upon her recurrent course she is now status post AV node ablation. She still needs to continue her anticoagulant therapy based upon the underlying atrial dysrhythmia to minimize the risk of any thromboembolic events. (7) S/P ablation operation for arrhythmia: PLAN: The patient is status post recent AV node ablation. At the moment she appears to be in an underlying electronic ventricular paced rhythm which appears to be appropriate. She will continue to be followed. (8) Chronic diastolic heart failure: PLAN: The patient has a history of chronic diastolic mediated CHF. She has been on medical management with furosemide at 40 mg p.o. daily, potassium supplement at 20 mg p.o. daily, as well as lisinopril 20 mg p.o. daily. This is superimposed upon her beta-jhon history with her metoprolol XL at 100 mg p.o. daily. (9) Presence of permanent cardiac pacemaker: PLAN: The patient does have a permanent pacemaker in place. It has been followed as an outpatient. It has been functioning appropriately. (10) Preoperative cardiovascular examination: PLAN: From a preoperative standpoint it does not appear the patient requires further cardiovascular diagnostic studies/intervention at this time. She should continue to be monitored with respect to her cardiac rate and rhythm and blood pressure. An attempt should be made to avoid significant fluctuations in her vital signs as well as to avoid IV volume overload during and following her procedure. She should continue her medical therapy and around the time of her procedure with the exception of temporary interruption of her anticoagulant therapy to allow her INR to be appropriate for surgery. Once her surgery is complete she should resume anticoagulant therapy as deemed appropriate. Addt'l Comments The patient's case has been discussed and reviewed with the patient as well as with Dr. Henao of the [facility] staff. Comment: Time spent the patient's evaluation, examination, review of medical records, review of previous cardiovascular imaging studies, documentation, discussion, etc.: 50 minutes. HPI Consult Data Date of Consult: 01/05/23 HPI Narrative HPI Narrative: MICHELLE JIMENEZ, is a 82 year old white female who presents for cardiovascular preoperative consultation regarding a mechanical fall and a right hip fracture in need of right hip ORIF superimposed upon a cardiovascular history of an underlying hypertrophic obstructive type cardiomyopathy status post [facility] (07-30-2018) septal myectomy, status post mitral valve repair consisting of excision of a prolapsing segment of the P3 scallop of the mitral valve and annuloplasty ring with a #33 Bernabe band, status post bilateral pulmonary vein isolation with an Atriacure radiofrequency clamp and clipping of the left atrial appendage with a number 50 mm Atriacure clip, status post multiple synchronized biphasic DC cardioversion procedures for atrial fibrillation/flutter, now status post recent AV node ablation, and remote permanent pacemaker placement. The patient states that she states after stopping at a local pharmacy to acquire some cough medicine she was walking, missed a step, and fell on her right hip. She was unable to bear any weight. She was subsequently evaluated [facility] emergency department and found to have a right hip fracture. She is pending further evaluation with right hip ORIF. From a cardiovascular standpoint, she states since her recent AV node ablation, from a cardiac standpoint, she has done well. She describes no symptoms of obvious chest discomfort suspicious of CAD and myocardial ischemia, orthopnea or PND or worsening peripheral pitting edema suspicious of acute CHF/pulmonary edema, no obvious recurrence of her atrial dysrhythmia, and no obvious near- syncope or syncope. On her cardiac telemetry and ECG she is noted to be in an underlying electronic ventricular paced rhythm. She did have cardiac enzymes performed which were mildly elevated without significant change.? Her ECG is as noted above. She has undergone previous noninvasive and invasive cardiovascular studies at [facility]. Those studies are noted below. They have been reviewed with her. Her recent AV node ablation procedure is unavailable at this time for review. [facility] Medical History (Updated 01/05/23 @ 09:[address] Arnold Bland MD) Anticoagulated on Coumadin Atrial fibrillation Atrial fibrillation and flutter Atrial flutter with rapid ventricular response Bladder cancer Chronic diastolic heart failure COPD (chronic obstructive pulmonary disease) Decreased cardiac ejection fraction Essential hypertension Essential hypertension Fall Former smoker Hyperlipidemia Hypertrophic obstructive cardiomyopathy (HOCM) Hypertrophic obstructive cardiomyopathy (HOCM) LBBB (left bundle branch block) Long QT interval Non-Hodgkin lymphoma Nonrheumatic mitral (valve) insufficiency On home oxygen therapy Paroxysmal atrial fibrillation Paroxysmal atrial fibrillation Persistent atrial fibrillation Polyp, sigmoid colon Presence of permanent cardiac pacemaker (~12/10/21) Sick sinus syndrome Home Medications magnesium oxide 400 mg PO DAILY supplement 04/06/19 [History Last Taken 01/03/23] oxycodone 5 mg tablet 5 mg PO Q6H PRN pain 5 days #20 tabs 08/25/22 [Rx Last Taken Unknown] gabapentin 100 mg capsule 300 mg PO BID NERVE PAIN 10/04/22 [History Last Taken 01/04/23] warfarin 1 mg tablet See Rx Instructions .Route .COMPLEX blood thinner 10/05/22 [History Last Taken 01/03/23] lisinopril 20 mg tablet 20 mg PO DAILY blood pressure #90 tabs 10/16/22 [Rx Last Taken 01/03/23] metoprolol succinate 100 mg tablet,extended release 24 hr 100 mg PO DAILY #90 tabs 10/16/22 [Rx Last Taken 12/28/22] warfarin 3 mg tablet 3 mg PO .COMPLEX blood thinner #45 tabs 11/04/22 [Rx Last Taken Unknown] furosemide 40 mg tablet (Lasix) 40 mg PO DAILY #90 tabs 11/07/22 [Rx Last Taken 01/02/23] potassium chloride 20 mEq tablet,extended release 20 meq PO DAILY supplement- with lasix 11/07/22 [History Last Taken 01/02/23] hydrocodone-acetaminophen 5-325mg 5mg-325mg 0.5 tab PO BID Check with primary doctor 01/04/23 [History Last Taken 01/04/23] Allergy/AdvReac Type Severity Reaction Status Date / Time allopurinol Allergy Rash Verified 01/04/23 16:43 tramadol AdvReac dizzy Verified 01/04/23 16:43 Family History Father Heart disease Hypertension Mother No cardiac disease Surgical History (Updated 01/05/23 @ 09:[address] Arnold Bland MD) H/O cardiac radiofrequency ablation History of bladder surgery History of cardioversion (~04/25/20) History of left heart catheterization (LHC) (~11/30/17) History of mitral valve repair (~07/30/18) History of ventricular septal myectomy (~07/30/18) Social History household members: none Smoking Status: Former smoker pack-years: 58 how long ago did patient quit smokin years ago alcohol intake: never substance use type: does not use caffeine: No what type of physical activity do you participate in: walking ROS Constitutional Constitutional: Reports as per HPI Eyes Eyes: Reports as per HPI ENT HEENT: Reports as per HPI Cardiovascular Cardiovascular: Reports as per HPI Respiratory/Chest Respiratory/Chest: Reports cough Gastrointestinal Gastrointestinal: Reports as per HPI Genitourinary Genitourinary: Reports as per HPI Musculoskeletal Musculoskeletal: Reports extremity pain and joint pain Integumentary Integumentary: Reports as per HPI Neurologic Neurologic: Reports as per HPI Physical Exam Const alert, oriented x3 and no apparent distress Orientation / Consciousness: awake HEENT normocephalic, head/scalp atraumatic and hearing grossly normal bilaterally Eyes PERRL, EOMs intact bilaterally, conjunctivae normal and no scleral icterus Neck full ROM, supple and no JVD Chest Chest: midline sternotomy incision Resp normal respiratory effort and clear to auscultation bilaterally Cardio regular rate, regular rhythm, S1 normal heart sound and S2 normal heart sound GI normal to inspection, nondistended, normoactive bowel sounds Extremity General Extremity: edema bilateral lower extremity Details: trace Skin no rashes or lesions noted Psych mental status grossly normal Risk Stratification Risk Stratification Applicable: Yes Age >/= 65: Yes >/= 3 CAD Risk Factors (HTN, HLD, DM, family hx of CAD, or current smoker): No Aspirin Use in the Past 7 Days: No Severe Angina (>/= episodes in 24 hours): No EKG ST Changes >/= 0.5mm: No Positive Cardiac Marker: Yes WALLACE Risk Stratification Score: 2 WALLACE % Risk: 8% Risk Procedure Criteria Type of Procedure Procedure Type: Elective Elective Risks - COVID COVID Risk Discussion: The surgeon/proceduralist and patient have discussed in detail the risk of exposure to and/or potential harm posed by the COVID-19 virus with having a surgery/procedure at this time versus the risk of delaying the surgery/procedure. It is not possible to know either the risk of delaying the surgery or procedure or chance of getting an infection with perfect accuracy, but a joint decision was made between the patient and the surgeon/proceduralist to proceed at this time with the scheduled surgery/procedure as indicated on the consent form. Objective Data Vital Signs: Vital Signs Temp Pulse Resp BP Pulse Ox O2 Del Method O2 Flow Rate 98.7 F 82 18 133/87 H 94 Nasal Cannula 2 01/05/23 07:57 01/05/23 07:57 01/05/23 07:57 01/05/23 07:57 01/05/23 07:57 01/05/23 07:57 01/05/23 07:53 Oxygen Flow Rate (L/min) 2 Oxygen Delivery Method Nasal Cannula Weight: 144 lb 6.444 oz Body Mass Index (BMI) 22.6 Intake & Output: Intake and Output for Last 24 Hours 01/03/23 01/04/23 01/05/23 23:59 23:59 23:59 Intake Total 582.5 / 582.5 Output Total 400 / 400 Balance 582.5 / 482.5 -400 / -400 Lab / Micro Data Result Diagrams: 01/05/23 04:48 01/05/23 04:48 Labs: Laboratory Results - last 24 hr 01/04/23 17:03: WBC 7.6, RBC 4.37, Hgb 11.2 L, Hct 37.3, MCV 85.4, MCH 25.6 L, MCHC 30.0 L, RDW Std Deviation 47.4 H, RDW Coeff of [place] 15.2 H, Plt Count 206, MPV 10.3, Immature Gran % (Auto) 0.300, Neut % (Auto) 72.0 H, Lymph % (Auto) 18.5 L, [place] % (Auto) 7.4, Eos % (Auto) 1.3, Baso % (Auto) 0.5, Absolute Neuts (auto) 5.4, Absolute Lymphs (auto) 1.40, Nucleated RBC % 0 01/04/23 17:03: PT 25.9 H, INR 2.4 01/04/23 17:03: Sodium 142, Potassium 3.5, Chloride 106, Carbon Dioxide 30.0, Anion Gap 6, BUN 12, Creatinine 0.82, Estim Creat Clear Calc 46.78, Est GFR (MDRD) Af Amer 86, Est GFR (MDRD) Non-Af 71, BUN/Creatinine Ratio 14.7, Glucose 108 H, Calcium 8.7, Troponin I High Sens 84 H 01/04/23 20:30: Troponin I High Sens 84 H 01/04/23 22:25: Troponin I High Sens 74 H 01/05/23 04:48: Vitamin D 25-Hydroxy 34.3 01/05/23 04:48: WBC 11.4 H, RBC 4.73, Hgb 12.2, Hct 39.5, MCV 83.5, MCH 25.8 L, MCHC 30.9 L, RDW Std Deviation 46.4 H, RDW Coeff of [place] 15.2 H, Plt Count 252, MPV 10.9, Immature Gran % (Auto) 0.400, Neut % (Auto) 74.5 H, Lymph % (Auto) 15.3 L, [place] % (Auto) 7.9, Eos % (Auto) 1.4, Baso % (Auto) 0.5, Absolute Neuts (auto) 8.5 H, Absolute Lymphs (auto) 1.74, Nucleated RBC % 0 01/05/23 04:48: PT 28.0 H, INR 2.7 01/05/23 04:48: Sodium 140, Potassium 3.9, Chloride 106, Carbon Dioxide 28.0, Anion Gap 6, BUN 13, Creatinine 0.83, Estim Creat Clear Calc 49.94, Est GFR (MDRD) Af Amer 84, Est GFR (MDRD) Non-Af 70, BUN/Creatinine Ratio 15.7, Glucose 106, Calcium 8.0 L, Phosphorus 3.1, Magnesium 1.5 L, Total Bilirubin 0.50, AST 15, ALT 16, Alkaline Phosphatase 80, Total Protein 5.9 L, Albumin 2.7 L, Globulin 3.2, Albumin/Globulin Ratio 0.8 L, TSH 0.76 Micro: Microbiology 01/04/23 20:17 Mucosa - Nose Respiratory Panel (PCR) - Final 01/04/23 20:17 Nasal Secretion SARS-CoV-2 & FLU Antigen (Rapid) - Final Cardiology Labs/Tests 01/04/23 17:03: WBC 7.6, RBC 4.37, Hgb 11.2 L, Hct 37.3, MCV 85.4, MCH 25.6 L, MCHC 30.0 L, Plt Count 206, MPV 10.3, Immature Gran % (Auto) 0.300, Neut % (Auto ) 72.0 H, Lymph % (Auto) 18.5 L, [place] % (Auto) 7.4, Eos % (Auto) 1.3, Baso % (Auto) 0.5, Absolute Neuts (auto) 5.4, Nucleated RBC % 0 01/04/23 17:03: PT 25.9 H, INR 2.4 01/04/23 17:03: Sodium 142, Potassium 3.5, Chloride 106, Carbon Dioxide 30.0, Anion Gap 6, BUN 12, Creatinine 0.82, Est GFR (MDRD) Af Amer 86, Est GFR (MDRD) Non-Af 71, BUN/Creatinine Ratio 14.7, Glucose 108 H, Calcium 8.7 01/05/23 04:48: WBC 11.4 H, RBC 4.73, Hgb 12.2, Hct 39.5, MCV 83.5, MCH 25.8 L, MCHC 30.9 L, Plt Count 252, MPV 10.9, Immature Gran % (Auto) 0.400, Neut % (Auto) 74.5 H, Lymph % (Auto) 15.3 L, [place] % (Auto) 7.9, Eos % (Auto) 1.4, Baso % (Auto) 0.5, Absolute Neuts (auto) 8.5 H, Nucleated RBC % 0 01/05/23 04:48: PT 28.0 H, INR 2.7 01/05/23 04:48: Sodium 140, Potassium 3.9, Chloride 106, Carbon Dioxide 28.0, Anion Gap 6, BUN 13, Creatinine 0.83, Est GFR (MDRD) Af Amer 84, Est GFR (MDRD) Non-Af 70, BUN/Creatinine Ratio 15.7, Glucose 106, Calcium 8.0 L, Phosphorus 3.1, Magnesium 1.5 L, Total Bilirubin 0.50 Rhythm: Electronic ventricular paced rhythm EKG: Electronic ventricular paced Transthoracic echocardiogram performed on 08-06-18 through the [facility] system.?? left ventricle was normal with an LVEF of 74%, there was postsurgical mitral valve findings with a [place] mitral valve annuloplasty ring with trivial mitral valve regurgitation.? There was also, she had a resting LVOT gradient of 18 mmHg and with Valsalva maneuver a peak LVOT gradient of 21 mmHg and after a meal nitrate the peak LVOT gradient of 27 mmHg.? During these maneuvers there was no change in her MR. Echocardiogram from 09/19/2020: Interpretation Summary The study was technically difficult. Mild segmental systolic dysfunction (see wall motion). The estimated ejection fraction is 45 %. Post operative septal motion. Sigmoid septum. The left atrium is severely enlarged. The right atrium is moderately enlarged. An annuloplasty ring is noted in the mitral position. Trivial transvalvular insufficiency of the mitral valve. Moderate (2+) eccentric tricuspid valve insufficiency. Moderate focal aortic valve calcification. Right ventricular systolic pressure estimated to be 32 mmHg. Unable to assess diastolic dysfunction. Echocardiogram 10/22/2021: Interpretation Summary The study was technically difficult. ? Segmental dysfunction with preserved ejection fraction (see wall motion). The estimated ejection fraction is 55 %. Post operative septal motion. The left atrium is severely enlarged. The right atrium is severely enlarged. An annuloplasty ring is noted in the mitral position. Trivial transvalvular insufficiency of the mitral valve. Moderate (2+) eccentric tricuspid valve insufficiency. Mild diffuse aortic valve thickening. Moderate diffuse aortic valve calcification. Mild (1+) pulmonic valve insufficiency. Mildly dilated aortic root. Right ventricular systolic pressure estimated to be 44 mmHg. Unable to assess diastolic dysfunction. Transthoracic echocardiogram: 10-14-2022: Interpretation Summary Moderate segmental systolic dysfunction (see wall motion). The estimated ejection fraction is 35 %. Post operative septal motion. Mild concentric left ventricular hypertrophy. Apical false tendon noted. The left atrium is severely enlarged. The right atrium is severely enlarged. An annuloplasty ring is noted in the mitral position. Mild focal mitral valve calcification of the anterior leaflet. MIld (1+) transvalvular insufficiency of the mitral valve. Moderate (2+) tricuspid valve insufficiency. Aortic sclerosis, no stenosis. Trivial pulmonic valve insufficiency. Right ventricular systolic pressure estimated to be 40 mmHg. Diastolic function is indeterminate. Pharmacologic stress nuclear imaging study performed through the [employer] system on 11-05-15 at that time her perfusion study was listed as normal with no evidence of ischemia. Stress test 10/22/2021: Procedure: Pharmacologic stress nuclear imaging study Indications: Abnormal cardiac enzymes; abnormal ECG; atrial fibrillation/flutter; hyper trophic cardiomyopathy Consent: Per the patient Procedure: The patient underwent pharmacologic (Regadenoson 0.4mg ) evaluation with a peak heart rate of 88 beats per minute (63%predicted maximal heart rate) and a peak blood pressure of 132/88 mmHg. The baseline ECG demonstrated atrial fibrillation/flutter; nonspecific IVCD.? The peak pharmacologic ECG demonstrated no obvious ECG changes. There were no cardiac dysrhythmias pretest, during pharmacologic infusion, or recovery. There was no complaint of chest discomfort during pharmacologic infusion or recovery. The examination was discontinued secondary to completion of protocol. Impression: 1.? Pharmacologic (Regadenoson) evaluation 2.? Peak pharmacologic ECG with no obvious ECG changes. 3.? There were no cardiac dysrhythmias pretest, during pharmacologic infusion, or recovery. 4.? Nuclear images pending Myocardial perfusion imaging study: Technique: The patient was injected with 10.6 millicuries of technetium 99m Cardiolite and subsequently rest SPECT Cardiolite nuclear imaging was obtained in the horizontal long, vertical long, and short axis views. The patient underwent pharmacologic (Regadenoson) evaluation with a peak heart rate of 88 beats per minute (63% percent predicted maximal heart rate) and a peak blood pressure of 132/88 mmHg. The patient was injected with 33.1 millicuries of technetium 99m Cardiolite and subsequently stress SPECT Cardiolite nuclear imaging was obtained in the horizontal long, vertical long, and short axis views.? A gated Cardiolite study at peak stress was not obtained. Interpretation: Rest and stress SPECT Cardiolite nuclear imaging status post realignment, normalization, and attenuation correction demonstrate relative uniform tracer uptake and myocardial perfusion appearing within normal limits. Impression: 1.? Rest and stress SPECT Cardiolite nuclear imaging demonstrate relative uniform tracer uptake and myocardial perfusion appearing within normal limits. 2.? A gated Cardiolite study was not obtained. Diagnostic cardiac catheterization performed: 11-30-17.? CONCLUSIONS Normal coronary arteries Cardiomyopathy: Hypertrophic Mitral Valve Insufficiency Moderate RECOMMENDATIONS Surgery consult for Valve Replacement surgery DESCRIPTION OF? PROCEDURE The patient arrived to the procedure lab. The risks and benefits of the procedure as well as a full description of our services here and current unavailability of surgical backup were fully explained to the patient and/or their significant other prior to the catheterization. The Timeout was completed, verifying the correct patient and procedure. The patient's procedural site was prepped and draped in the usual fashion. Local anesthetic was given subcutaneously to right radial region with Lidocaine 2%. Local anesthetic was given subcutaneously to right groin region with Lidocaine 2%. Using a modified Seldinger technique, arterial access was obtained via the right femoral artery, a 4Fr sheath was inserted? Left Coronary Artery selective angiography was performed in multiple views using a 5 Fr. JL4 catheter. Right Coronary Artery selective angiography was then performed in multiple views using a 5 Fr. 3DRC (Endy) catheter. Left Ventriculography was performed in GOTTI projection using a 5 Fr. Pigtail catheter. LV to AO pullback pressures were then recorded.The arterial sheath was pulled and manual compression applied until hemostasis is achieved. CORONARY ANGIOGRAPHY DOMINANCE:? Right Dominant LEFT HEART ASSESSMENT Left Ventricular Ejection Fraction: by LV Gram 65 % Normal LV wall motion Normal Left Ventricular systolic function Moderately severe mitral regurgitation LEFT MAIN: Angiographically normal LEFT ANTERIOR DECENDING ARTERY: Angiographically normal CIRCUMFLEX ARTERY: Angiographically normal RIGHT CORONARY ARTERY: Angiographically normal VALVE FINDINGS: Mitral Valve Prolapse Moderate Holter monitor: 11-29-2021: Atrial flutter Radiography Diagnostic Testing: Radiology Impression Hip/Pelvis X-Ray 01/04/23 16:51 IMPRESSION: Possible intertrochanteric fracture of the right femur. Electronically Signed: Sridhar Bergman DO at 18:45 EST , Chest X-Ray 01/04/23 17:20 IMPRESSION: Mild interstitial prominence. Left basilar atelectasis. Electronically Signed: Sridhar Bergman DO at 18:18 EST ,
[2023-01-05] MEDS: Gabapentin 100 MG Capsule PO ×2 (09:10→20:48)
[2023-01-05] MEDS: Magnesium Chloride 64 MG Delay Rel.Tablet 128 MG PO (09:10)
[2023-01-05] MEDS: guaiFENesin 1,200 MG Tablet 1200 MG PO ×2 (09:10→20:48)
[2023-01-05] MEDS: Phytonadione (Vit K1) 5 MG TABLET 10 MG PO (09:10)
[2023-01-05] MEDS: Furosemide 40 MG Tablet PO (09:10)
--- NOTE | 2023-01-05 11:53 | CONS.ORTHO ---
HPI Consult Data Date of Consult: 01/05/23 HPI Narrative Reason for Consultation: Right hip pain HPI Narrative: MICHELLE JIMENEZ, is a 82 F who presents to [facility] with right hip pain after a fall. She missed a step at the drugstore and fell. She denies any hip pain prior to falling. She was diagnosed in the ED with an intertrochanteric right hip fracture. At the time of my evaluation, her daughter is present. She reports right hip pain. She denies paresthesias. She denied LOC. Last Thursday she underwent a cardiac ablation for atrial fibrillation. She states that she immediately felt better after the ablation. 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) LBBB (left bundle branch block) Long QT interval Non-Hodgkin lymphoma Nonrheumatic mitral (valve) insufficiency On home oxygen therapy Paroxysmal atrial fibrillation Paroxysmal atrial fibrillation Persistent atrial fibrillation Polyp, sigmoid colon Presence of permanent cardiac pacemaker (~12/10/21) Sick sinus syndrome Home Medications magnesium oxide 400 mg PO DAILY supplement 04/06/19 [History Last Taken 01/03/23] oxycodone 5 mg tablet 5 mg PO Q6H PRN pain 5 days #20 tabs 08/25/22 [Rx Last Taken Unknown] gabapentin 100 mg capsule 300 mg PO BID NERVE PAIN 10/04/22 [History Last Taken 01/04/23] warfarin 1 mg tablet See Rx Instructions .Route .COMPLEX blood thinner 10/05/22 [History Last Taken 01/03/23] lisinopril 20 mg tablet 20 mg PO DAILY blood pressure #90 tabs 10/16/22 [Rx Last Taken 01/03/23] metoprolol succinate 100 mg tablet,extended release 24 hr 100 mg PO DAILY #90 tabs 10/16/22 [Rx Last Taken 12/28/22] warfarin 3 mg tablet 3 mg PO .COMPLEX blood thinner #45 tabs 11/04/22 [Rx Last Taken Unknown] furosemide 40 mg tablet (Lasix) 40 mg PO DAILY #90 tabs 11/07/22 [Rx Last Taken 01/02/23] potassium chloride 20 mEq tablet,extended release 20 meq PO DAILY supplement- with lasix 11/07/22 [History Last Taken 01/02/23] hydrocodone-acetaminophen 5-325mg 5mg-325mg 0.5 tab PO BID Check with primary doctor 01/04/23 [History Last Taken 01/04/23] Allergy/AdvReac Type Severity Reaction Status Date / Time allopurinol Allergy Rash Verified 01/04/23 16:43 tramadol AdvReac dizzy Verified 01/04/23 16:43 Family History Father Heart disease Hypertension Mother No cardiac disease Surgical History H/O cardiac radiofrequency ablation History of bladder surgery History of cardioversion (~04/25/20) History of left heart catheterization (LHC) (~11/30/17) History of mitral valve repair (~07/30/18) History of ventricular septal myectomy (~07/30/18) Social History household members: none Smoking Status: Former smoker pack-years: 58 how long ago did patient quit smokin years ago alcohol intake: never substance use type: does not use caffeine: No what type of physical activity do you participate in: walking ROS Constitutional Constitutional: Reports systems reviewed and no addt'l complaints, except as documented Eyes Eyes: Reports systems reviewed and no addt'l complaints, except as documented ENT HEENT: Reports systems reviewed and no addt'l complaints, except as documented Cardiovascular Cardiovascular: Reports systems reviewed and no addt'l complaints, except as documented Respiratory/Chest Respiratory/Chest: Reports systems reviewed and no addt'l complaints, except as documented Gastrointestinal Gastrointestinal: Reports systems reviewed and no addt'l complaints, except as documented Genitourinary Genitourinary: Reports systems reviewed and no addt'l complaints, except as documented Musculoskeletal Musculoskeletal: Reports systems reviewed and no addt'l complaints, except as documented Integumentary Integumentary: Reports systems reviewed and no addt'l complaints, except as documented Neurologic Neurologic: Reports systems reviewed and no addt'l complaints, except as documented Psychiatric Psychiatric: Reports systems reviewed and no addt'l complaints, except as documented Endocrine Endocrinology: Reports systems reviewed and no addt'l complaints, except as documented Hematologic/Lymphatic Hematologic/Lymphatic: Reports systems reviewed and no addt'l complaints, except as documented Allergic/Immunologic Allergic/Immunologic: Reports systems reviewed and no addt'l complaints, except as documented Vital Signs Vital Signs Vital Signs: 01/04/23 16:39 01/04/23 16:44 01/04/23 18:54 Temperature 98.2 F 99.5 F H Temperature Source Oral Temporal Pulse Rate 80 80 Respiratory Rate 18 20 H Respiratory Effort Normal Non-Labored Respiratory Depth Normal Respiratory Pattern Normal Blood Pressure 169/91 H 168/87 H Blood Pressure Mean 117 114 Blood Pressure Source Blood Pressure Position Blood Pressure Location Pulse Ox 92 92 Oxygen Delivery Method Room Air Nasal Cannula Oxygen Flow Rate (L/min) 4 01/04/23 20:07 01/04/23 20:47 01/04/23 21:05 Temperature 98.1 F Temperature Source Oral Pulse Rate 81 81 Respiratory Rate 18 Respiratory Effort Normal Non-Labored Respiratory Depth Normal Respiratory Pattern Normal Blood Pressure 160/80 H 160/80 H Blood Pressure Mean 106 Blood Pressure Source Monitor Blood Pressure Position Semi-Fowlers Blood Pressure Location Left Arm Pulse Ox 95 Oxygen Delivery Method Nasal Cannula Nasal Cannula Oxygen Flow Rate (L/min) 2 2 01/05/23 01:14 01/05/23 01:19 01/04/23 20:21 Temperature 97.9 F Temperature Source Oral Pulse Rate 83 Respiratory Rate 22 H Respiratory Effort Normal Non-Labored Respiratory Depth Normal Respiratory Pattern Normal Blood Pressure 127/60 H Blood Pressure Mean 82 Blood Pressure Source Monitor Blood Pressure Position Semi-Fowlers Blood Pressure Location Right Arm Pulse Ox 95 95 Oxygen Delivery Method Nasal Cannula Nasal Cannula Nasal Cannula Oxygen Flow Rate (L/min) 2 2 2 01/05/23 04:43 01/05/23 07:24 01/05/23 07:53 Temperature 98.1 F Temperature Source Oral Pulse Rate 80 Respiratory Rate 20 H Respiratory Effort Normal Non-Labored Respiratory Depth Normal Respiratory Pattern Normal Blood Pressure 133/82 H Blood Pressure Mean 99 Blood Pressure Source Monitor Blood Pressure Position Semi-Fowlers Blood Pressure Location Right Arm Pulse Ox 96 94 Oxygen Delivery Method Nasal Cannula Nasal Cannula Nasal Cannula Oxygen Flow Rate (L/min) 2 2 2 01/05/23 07:57 Temperature 98.7 F Temperature Source Oral Pulse Rate 82 Respiratory Rate 18 Respiratory Effort Respiratory Depth Respiratory Pattern Blood Pressure 133/87 H Blood Pressure Mean 102 Blood Pressure Source Monitor Blood Pressure Position Semi-Fowlers Blood Pressure Location Right Arm Pulse Ox 94 Oxygen Delivery Method Nasal Cannula Oxygen Flow Rate (L/min) Weight Weight: 144 lb 6.444 oz Body Mass Index (BMI) 22.6 Physical Exam Const alert and oriented x3 General Appearance: cooperative HEENT normocephalic Eyes PERRL Neck supple and no JVD Lymph Lymphatic: no lymphadenopathy noted and no lymphedema noted Resp normal respiratory effort and no use of accessory muscles Effort and Inspection: able to speak in complete sentences Cardio regular rate and regular rhythm GI soft to palpation, non-tender and non-distended Extremity no clubbing, cyanosis or edema and no calf tenderness Extremity Narrative: RLE shortened and externally rotated. Pain in right hip immediately with any attempted ROM Neuro CN's II-XII intact bilaterally Psych mental status grossly normal Lab / Micro Data Result Diagrams: 01/05/23 04:48 01/05/23 04:48 Labs: Laboratory Results - last 24 hr 01/04/23 17:03: WBC 7.6, RBC 4.37, Hgb 11.2 L, Hct 37.3, MCV 85.4, MCH 25.6 L, MCHC 30.0 L, RDW Std Deviation 47.4 H, RDW Coeff of Neelima 15.2 H, Plt Count 206, MPV 10.3, Immature Gran % (Auto) 0.300, Neut % (Auto) 72.0 H, Lymph % (Auto) 18.5 L, Slope % (Auto) 7.4, Eos % (Auto) 1.3, Baso % (Auto) 0.5, Absolute Neuts (auto) 5.4, Absolute Lymphs (auto) 1.40, Nucleated RBC % 0 01/04/23 17:03: PT 25.9 H, INR 2.4 01/04/23 17:03: Sodium 142, Potassium 3.5, Chloride 106, Carbon Dioxide 30.0, Anion Gap 6, BUN 12, Creatinine 0.82, Estim Creat Clear Calc 46.78, Est GFR (MDRD) Af Amer 86, Est GFR (MDRD) Non-Af 71, BUN/Creatinine Ratio 14.7, Glucose 108 H, Calcium 8.7, Troponin I High Sens 84 H 01/04/23 20:30: Troponin I High Sens 84 H 01/04/23 22:25: Troponin I High Sens 74 H 01/05/23 04:48: Vitamin D 25-Hydroxy 34.3 01/05/23 04:48: WBC 11.4 H, RBC 4.73, Hgb 12.2, Hct 39.5, MCV 83.5, MCH 25.8 L, MCHC 30.9 L, RDW Std Deviation 46.4 H, RDW Coeff of Neelima 15.2 H, Plt Count 252, MPV 10.9, Immature Gran % (Auto) 0.400, Neut % (Auto) 74.5 H, Lymph % (Auto) 15.3 L, Slope % (Auto) 7.9, Eos % (Auto) 1.4, Baso % (Auto) 0.5, Absolute Neuts (auto) 8.5 H, Absolute Lymphs (auto) 1.74, Nucleated RBC % 0 01/05/23 04:48: PT 28.0 H, INR 2.7 01/05/23 04:48: Sodium 140, Potassium 3.9, Chloride 106, Carbon Dioxide 28.0, Anion Gap 6, BUN 13, Creatinine 0.83, Estim Creat Clear Calc 49.94, Est GFR (MDRD) Af Amer 84, Est GFR (MDRD) Non-Af 70, BUN/Creatinine Ratio 15.7, Glucose 106, Calcium 8.0 L, Phosphorus 3.1, Magnesium 1.5 L, Total Bilirubin 0.50, AST 15, ALT 16, Alkaline Phosphatase 80, Total Protein 5.9 L, Albumin 2.7 L, Globulin 3.2, Albumin/Globulin Ratio 0.8 L, TSH 0.76 Micro: Microbiology 01/04/23 20:17 Mucosa - Nose Respiratory Panel (PCR) - Final 01/04/23 20:17 Nasal Secretion SARS-CoV-2 & FLU Antigen (Rapid) - Final Radiology Impression Hip/Pelvis X-Ray 01/04/23 16:51 IMPRESSION: Possible intertrochanteric fracture of the right femur. Electronically Signed: Sridhar Bergman DO at 18:45 EST Reading Location ID and State: [facility] / [place] Tel [phone], Service support , Chest X-Ray 01/04/23 17:20 IMPRESSION: Mild interstitial prominence. Left basilar atelectasis. Electronically Signed: Sridhar Bergman DO at 18:18 EST Reading Location ID and State: [facility] / [place] Tel [phone], Service support , Assessment & Plan Assessment/Plan (1) Closed fracture of right hip: PLAN: The plan would be for my partner, Dr. Longoria, to perform an ORIF on her right hip tomorrow at noon as long as her INR is acceptable. I reviewed the potential risks, benefits and alternatives to surgical treatment with the patient and her daughter and she wishes to proceed.
[2023-01-05 13:16] LABS: International Normalized Ratio 2.5; Prothrombin Time (Protime)PT. 26.8 SECONDS (11.7-14.9)
--- NOTE | 2023-01-05 13:50 | CASEMGMT ---
PRETTY MARTINEZ DC Planning Assessment: Face to Face with patient for initial transition planning/care coordination assessment. PRETTY MARTINEZ introduced self and role at [facility], pt voices understanding. Pt awake but drifting off with eyes closed intermittently throughout the assessment. Pt's daughter Linda at bedside and assisted with providing some information. Care providers, pharmacy, and demographics verified. Admission Dx: Rt hip fx. PCP: [facility] Specialists: Baldo (cardiology), Aaliyah Torre PA-C (pulmonology [facility]) Preferred Pharmacy: [facility] Insurance: [employer] [facility] Prescription Benefit: yes Living Will/HPOA: yes, pt unable to recall HPOA. Encouraged pt and pt's daughter to bring in documents for inclusion in pt's EMR. LNOK: Daughter Linda, son Tirso Living Arrangements: Pt lives alone in a single story home with 2 steps to enter and two steps between her kitchen and living area. Pt's laundry is located in the basement with a handrail on these steps. Pt has been independent with all ADLs including self care and household tasks. Transportation: Pt was driving prior to admission. DME: shower chair, hand held shower, grab bars, cane, walker, rollator, pulse oximeter, and home O2 2l/min at HS only from [facility]. SNF: Pt's daughter states pt has been to rehab twice in the past s/p ankle fx and CABG. She is unable to recall the name of the facility. HHC: denies any previous provider Plan: Pt plans to get rehabilitation prior to returning home. List of SNF providers printed from [employer] including quality and resource use data and consistent with pt's insurance and geographic preferences was provided to pt and her daughter. Explained need to evaluate pt further s/p surgery and PT/OT for final disposition determination based on pt's needs. Will continue to monitor and assist with dc planning needs as further determined. Alison Guerrero RN CM
[2023-01-05 19:23] LABS: International Normalized Ratio 1.9; Prothrombin Time (Protime)PT. 21.1 SECONDS (11.7-14.9)
--- NOTE | 2023-01-05 19:40 | RAD_ITS ---
STUDY: X-RAY - RIGHT FEMUR REASON FOR STUDY: Female, 82 years old. Fracture, history of remote lymphoma TECHNIQUE: 4 view(s) of the femur. COMPARISON: Hip x-ray January 04, 2023 FINDINGS: The bones are osteopenic. There is a visualized intertrochanteric fracture of the right femur. . The visualized vascular calcifications. RAD/Femur Min 2 Views IMPRESSION: Acute intratrochanteric fracture of the right femur. Electronically Signed: Kina Celaya MD at 2:00 EST ,
[2023-01-06] VITALS (13 sets, daily range): BP systolic 105–152; BP diastolic 62–84; PULSE 79–87; RESP 16–22; TEMP 36.3–37.1; O2SAT 90–97; BMI 21.7
[2023-01-06] MEDS: HYDROmorphone Inj 0.2 MG/ML SYRINGE IV (02:16)
[2023-01-06] MEDS: 0.9% Saline Lock 10 ML Syringe IV ×3 (02:16→21:20)
[2023-01-06] MEDS: Senna/Docusate Sodium 1 Tablet 2 TABLET PO (05:59)
[2023-01-06] MEDS: oxyCODONE 5 MG Tablet PO ×2 (05:59→21:23)
[2023-01-06 06:19] LABS: Absolute Lymphocyte Count 1.46 X10^3/uL (0.83-4.51); Absolute Neutrophil Count 14.4 X10^3/uL (2.0-7.7); Basophil# 0.08 X10^3/uL; Basophil% 0.5 % (0-1); Eosinophil# 0.05 X10^3/uL; Eosinophils% 0.3 % (0-5); Hematocrit 41.8 % (37-47); Lymphocyte # 1.46 X10^3/ul (0.83-4.51); Lymphocyte % 8.3 % (19-41); Mean Corp Hgb Conc 31.1 g/dL (32-36); Mean Corpuscular Hgb 25.7 pg (27.0-32.0); Mean Corpuscular Volume 82.6 fL (81-99); Mean Platelet Vol. 10.5 fl (6.2-12.0); Monocyte# 1.43 X10^3/uL; Monocyte% 8.2 % (0-10); NRBC Flagged by Analyzer 0 % (0-5); Neutrophil # 14.42 X10^3/uL (2.7-7.7); Neutrophil % 82.2 % (47-70); Platelet Count 244 K/mm3 (150-450); RBC Distribution Width CV 15.2 % (11.6-14.6); RBC Distribution Width SD 45.7 fl (35.1-43.9); Red Blood Count 5.06 M/mm3 (4.2-5.4); White Blood Count 17.5 K/mm3 (4.4-11.0)
[2023-01-06 06:30] LABS: International Normalized Ratio 1.4; Prothrombin Time (Protime)PT. 16.8 SECONDS (11.7-14.9)
[2023-01-06 07:04] LABS: Anion Gap 8 (5-15); BUN 16 mg/dL (7-18); BUN/Creat Ratio 18.6 RATIO (10-20); Calcium,Total 8.8 mg/dL (8.5-10.1); Chloride 99 mmol/L (98-107); Creatinine, Serum 0.86 mg/dL (0.55-1.02); EST Glomerular Filtration Rate 67 mL/min (>60); Est Glom Filt Rate - Afr Amer 81 mL/min (>60); Glucose 138 mg/dL (74-106); Magnesium 1.7 mg/dL (1.6-2.6); Sodium Level 135 mmol/L (136-145)
[2023-01-06 07:08] LABS: Phosphorus 3.6 mg/dL (2.5-4.9)
--- NOTE | 2023-01-06 07:22 | PN.HOSP_ITS ---
Reason for Visit Reason for Visit: Diagnoses Anemia, unspecified (01/04/23) Other hypertrophic cardiomyopathy (01/04/23) Unspecified atrial fibrillation (01/04/23) Unspecified atrial flutter (01/04/23) Chronic diastolic (congestive) heart failure (01/04/23) Other specified abnormalities of plasma proteins (01/04/23) Abnormal coagulation profile (01/04/23) Fracture of unspecified part of neck of right femur, initial encounter for closed fracture (01/04/23) Unspecified fall, initial encounter (01/04/23) Encounter for preprocedural cardiovascular examination (01/04/23) Personal history of other diseases of the circulatory system (01/04/23) Presence of cardiac pacemaker (01/04/23) Other specified postprocedural states (01/04/23) Subjective Subjective Patient INR is 1.4 Case was discussed with Dr. Durán the day prior plan is to proceed with ORIF today Objective Data Objective Data Vital Signs: Vital Signs Temp Pulse Resp BP Pulse Ox O2 Del Method O2 Flow Rate 97.7 F L 84 18 120/83 H 96 Nasal Cannula 2 01/06/23 05:52 01/06/23 05:52 01/06/23 05:52 01/06/23 05:52 01/06/23 05:52 01/06/23 05:52 01/06/23 05:52 Oxygen Flow Rate (L/min) 2 Oxygen Delivery Method Nasal Cannula Weight: 62.9 kg Body Mass Index (BMI) 21.7 Intake & Output: Intake and Output for Last 24 Hours 01/04/23 01/05/23 01/06/23 23:59 23:59 23:59 Intake Total 582.5 / 582.5 Output Total 1650 / 1650 100 / 100 Balance 582.5 / 482.5 -1650 / -1650 -100 / -100 Lab / Micro Data Result Diagrams: 01/06/23 05:50 01/06/23 05:50 Labs: Laboratory Results - last 24 hr 01/05/23 04:48: Vitamin D 25-Hydroxy 34.3 01/05/23 12:58: PT 26.8 H, INR 2.5 01/05/23 18:59: PT 21.1 H, INR 1.9 01/06/23 05:50: PT 16.8 H, INR 1.4 01/06/23 05:50: WBC 17.5 H, RBC 5.06, Hgb 13.0, Hct 41.8, MCV 82.6, MCH 25.7 L, MCHC 31.1 L, RDW Std Deviation 45.7 H, RDW Coeff of Neelima 15.2 H, Plt Count 244, MPV 10.5, Immature Gran % (Auto) 0.500, Neut % (Auto) 82.2 H, Lymph % (Auto) 8.3 L, Thomas % (Auto) 8.2, Eos % (Auto) 0.3, Baso % (Auto) 0.5, Absolute Neuts (auto) 14.4 H, Absolute Lymphs (auto) 1.46, Nucleated RBC % 0 01/06/23 05:50: Sodium 135 L, Potassium 4.0, Chloride 99, Carbon Dioxide 28.0, Anion Gap 8, BUN 16, Creatinine 0.86, Estim Creat Clear Calc 48.20, Est GFR (MDRD) Af Amer 81, Est GFR (MDRD) Non-Af 67, BUN/Creatinine Ratio 18.6, Glucose 138 H, Calcium 8.8, Magnesium 1.7 01/06/23 05:50: Phosphorus 3.6 01/06/23 05:50: Blood Type A POSITIVE, Antibody Screen NEGATIVE Micro: Microbiology 01/04/23 20:17 Mucosa - Nose Respiratory Panel (PCR) - Final 01/04/23 20:17 Nasal Secretion SARS-CoV-2 & FLU Antigen (Rapid) - Final Radiography Diagnostic Testing: Radiology Impression Femur X-Ray 01/05/23 19:40 IMPRESSION: Acute intratrochanteric fracture of the right femur. Electronically Signed: Kina Celaya MD at 2:00 EST Reading Location ID and State: Count includes the [facility] / [place] Tel , Service support , Physical Exam Narrative GENERAL: cooperative HEENT: Atraumatic; normocephalic EYES; Anicteric, Normal Conjunctiva NECK; supple, normal thyroid, RESPIRATORY: Diminished to auscultation CARDIOVASCULAR: Regular S1 S2, GI: soft, normoactive bowel sounds, : No Renal angle tenderness; EXTREMITIES: Right lower extremity externally rotated, MUSCULOSKELETAL: no muscle wasting NEURO: Awake; no lateralizing signs. SKIN: No Rash PSYCH; Flat affect Assessment & Plan Assessment/Plan (1) Fall: (2) Closed fracture of right hip: (3) Anemia: (4) Elevated INR: (5) Elevated troponin I level: PLAN: Plan Patient is an 82-year-old lady who fell off and Subsequently developed right hip pain presented to the emergency department imaging studies demonstrated right intertrochanteric fracture admitted to regular nursing floor with consultation placed to orthopedic surgery 1. Right intertrochanteric fracture ? Following a mechanical fall admitted to regular nursing floor managed with immobilization pain medication with consultation placed to orthopedic surgery Patient has significant cardiac history including cardiomyopathy with an ejection fraction of 35%. She recently underwent ablation as well and was found to have elevated troponin. Consult placed to cardiology prior to patient undergoing any surgical intervention 01/06/2023; Patient INR is 1.4 Case was discussed with Dr. Durán the day prior plan is to proceed with ORIF today 2. Elevated troponin ? Secondary to probably muscle injury following patient recent ablation 3. Acute hypoxia ? Possibly related to atelectasis patient work-up so far negative to date 4. Paroxysmal A-fib ? Rate controlled on systemic anticoagulation with Coumadin INR on admission was 2.5 which is currently being held next patient of patient procedure. Patient underwent ablation days prior to her admission 4. Sick sinus syndrome ? Status post pacemaker placement 6. Chronic congestive heart failure with reduced ejection fraction ? Patient is on furosemide did continue. Also on beta-blockers continued as well 7. Hypertension - Blood pressure controlled, home medications continued with dose adjustment as needed 8. Valvular heart disease ? With history of mitral valve repair with septal myomectomy 9. Chronic neuropathic pain ? Patient is on gabapentin did continue 10. DVT prophylaxis ? Patient is on Coumadin no need for additional measures Time spent in the patient's overall evaluation,decision-making process, review of diagnostic data, adjustment of management, discussion with other providers, nursing nursing and ancillary staff involved in patient's care documentation, 40 Minutes Charges/Coding Visit Charges Inpatient E&M: 41871 Subs Hosp L2
[2023-01-06] MEDS: Potassium Chloride Oral Tablet 20 MEQ PO (08:10)
--- NOTE | 2023-01-06 11:00 | RAD_ITS ---
STUDY: X-RAY - PELVIS AND RIGHT HIP REASON FOR EXAM: Female, 82 years old. Intraoperative digital spot compression views. TECHNIQUE: 5 intraoperative digital documentation views of the pelvis and hip. COMPARISON: January 04, 2023. FINDINGS: 5 digital documentation views intramedullary yg placement in the right femur with interlocking dynamic hip screw. RAD/Hip 1 view with Pelvis IMPRESSION: Intraoperative digital documentation views. Electronically Signed: Panda Danielle, at 15:14 EST ,
[2023-01-06] MEDS: Lactated Ringers 1,000 ML 15 ML IV ×2 (11:12→13:01)
[2023-01-06] MEDS: Cefazolin 2 GM in 0.9% Normal Saline 100 ML IV (12:56)
--- NOTE | 2023-01-06 14:36 | PCM.OPRPT ---
Report of Operation Description of Surgical Findings:: Preoperative diagnosis: Right intertrochanteric proximal femur fracture Postoperative diagnosis: Right intertrochanteric proximal femur fracture Procedure: Treatment of intertrochanteric hip fracture with intramedullary nail right femur Surgeon: Jamie Longoria DO Anesthesia: General endotracheal Anesthesiologist: Dr. Soto Complications: None Drains: None Estimated blood loss: 150 cc Urinary output: None recorded IV fluids: 500 cc crystalloid Specimens: None Surgical implants: [place] Gamma3 Cephalomedullary Nail 125 degree 11 mm x 180 mm left, 10.5 mm x 100 mm lag screw, Interlocking screw size 5 mm x 35 mm Surgical indications: This is an 82-year-old female who sustained a ground-level mechanical fall on 01/04/2023 landing on her right hip. She was brought to [facility] where x-rays revealed a displaced right intertrochanteric proximal femur fracture. She was admitted under the service of the hospitalist. Orthopedics was consulted for surgical recommendations.I recommended cephalomedullary nail fixation of her right intertrochanteric proximal femur fracture. Patient was preoperatively optimized with a cardiology consult. Patient had a therapeutic INR upon admission and required vitamin K reversal to bring the INR to a safe range to operate requiring delay of surgery until today. The risks, benefits, alternatives to procedure reviewed with the patient. The risks of the surgery included bleeding, infection, loss of life or limb, malunion, nonunion, damage to vital structures, neurovascular injury, failure of orthopedic hardware, need for additional surgery, persistent pain or disability, risk of anesthesia. The patient expressed understanding of these risks and agreed to proceed with surgery. Blood consent was also obtained. Description of procedure: Patient was seen in preoperative holding area. She was identified by name, medical record number, date of . The operative extremity was marked with a surgical marker. We confirmed informed consent with the patient and questions were answered to her satisfaction. Patient was brought to the operative suite, and general anesthesia was induced on her hospital bed. Endotracheal tube was secured. After adequate anesthesia, patient was transferred to a fracture table with all bony prominences being well-padded. A perineal post was placed to secure the patient on the table. We then applied a ski boot which was well-padded to the operative extremity. The well leg was dropped into extension and secured to the axial post of the fracture table with a pillow and Coban. The right arm was brought across patient's chest with a blanket on her chest. We then performed a closed reduction maneuver with external rotation, traction, internal rotation and adduction. Fluoroscopic images were obtained. Fracture appeared to be acceptably reduced following closed reduction. We then prepped and draped the right lower extremity in normal, sterile orthopedic fashion. A timeout was performed with all parties in attendance in agreement with the side, site, and operation be performed. 2 g Ancef was administered prior to incision. No concerns were voiced and we elected to proceed. I first used fluoroscopy to mckay the level of the fracture and planned incision for insertion of the cephalomedullary nail device. In line with the long axis of the femur, 4 fingerbreadths proximal to the tip of the greater trochanter, a full-thickness skin incision was planned.. Skin was sharply incised with 10 blade scalpel, carried into the subcutaneous tissues. The IT band was encountered and split in planned trajectory of the nail placement. The greater trochanter was then able to be palpated digitally. I then placed a threaded guidewire just medial to the tip of the greater trochanter and in the anterior third of it on the lateral fluoroscopic projection. Opening reamer was then placed over top of the guidewire after placement was confirmed on C arm. We selected her nail to be 18 cm x 11 mm diameter. Nail was assembled on the back table. Opening reamer and guidewire were removed and cephalomedullary nail was placed in the pilot supervisor hole and impacted to an appropriate depth. Rotation was confirmed on the lateral. Drill sleeve was placed through the targeting guide. We drilled the pin for the lag screw at an appropriate position and depth, tip to apex distance less than 25 mm on AP and lateral combined. Depth gauge was used to measure the length of the screw, 100 mm. We then used the cannulated drill to drill to an appropriate depth. Drill was removed, drill pin left in place. Lag screw was placed over top of the drill pin and tightened to an appropriate depth. Setscrew was then placed and tightened, and then turned back a quarter turn to allow the lag screw to slide. I then drilled for a static interlocking screw in the distal portion of the screw utilizing the outrigger. Skin was incised full-thickness down the level of the IT band which was also split in line with the skin incision. I drilled bicortically through the distal interlocking slot of the nail. I measured for a 35 mm interlocking screw which was placed by hand with excellent purchase. Instruments were removed as well as the outrigger for the nail. Final fluoroscopic images were obtained. We irrigated the wounds copiously with normal saline solution. Hemostasis was excellent at this point. We then closed the deeper layers, IT band with 0 Vicryl. Intradermal buried stitches of 2-0 Vicryl were utilized and skin finally reapproximated with skin nazia. Sterile compression dressing of Xeroform, 4 x 4's, and Tegaderm was applied. Patient tolerated procedure well without complication. She was transferred back to her hospital bed and subsequently to PACU in stable condition. Intraoperative medications: 2 g Ancef IV Post Operative Plan: Weightbearing: Weightbearing as tolerated right lower extremity with a walker Antibiotics: Ancef 2 g x 3 doses postoperatively, 1 dose given preoperatively DVT Prophylaxis: Per primary, okay for therapeutic anticoagulation to start postoperative day #1 morning Bates: None Dressing: Dry sterile dressing changes daily and as needed for saturation X-Rays: 2 weeks postop in the office Follow-up: 2 weeks post-operatively with me in the office
[2023-01-06] MEDS: Calcium Carbonate 500 MG Tablet PO (18:02)
--- NOTE | 2023-01-06 18:56 | PN.CARD_ITS ---
Subjective Subjective The patient is status post right hip ORIF. She has no new acute cardiovascular complaints at this time Objective Data Vital Signs: Vital Signs Temp Pulse Resp BP Pulse Ox O2 Del Method O2 Flow Rate 97.4 F L 80 16 146/83 H 92 Nasal Cannula 2 01/06/23 15:15 01/06/23 15:15 01/06/23 15:15 01/06/23 15:15 01/06/23 15:09 01/06/23 15:15 01/06/23 15:15 Oxygen Flow Rate (L/min) 2 Oxygen Delivery Method Nasal Cannula Weight: 138 lb 10.732 oz Body Mass Index (BMI) 21.7 Intake & Output: Intake and Output for Last 24 Hours 01/04/23 01/05/23 01/06/23 23:59 23:59 23:59 Intake Total 582.5 / 582.5 1174.5 / 1174.5 Output Total 1650 / 1650 100 / 100 Balance 582.5 / 482.5 -1650 / -1650 1074.5 / 1074.5 Lab / Micro Data Result Diagrams: 01/06/23 05:50 01/06/23 05:50 Labs: Laboratory Results - last 24 hr 01/05/23 18:59: PT 21.1 H, INR 1.9 01/06/23 05:50: PT 16.8 H, INR 1.4 01/06/23 05:50: WBC 17.5 H, RBC 5.06, Hgb 13.0, Hct 41.8, MCV 82.6, MCH 25.7 L, MCHC 31.1 L, RDW Std Deviation 45.7 H, RDW Coeff of Neelima 15.2 H, Plt Count 244, MPV 10.5, Immature Gran % (Auto) 0.500, Neut % (Auto) 82.2 H, Lymph % (Auto) 8.3 L, [place] % (Auto) 8.2, Eos % (Auto) 0.3, Baso % (Auto) 0.5, Absolute Neuts (auto) 14.4 H, Absolute Lymphs (auto) 1.46, Nucleated RBC % 0 01/06/23 05:50: Sodium 135 L, Potassium 4.0, Chloride 99, Carbon Dioxide 28.0, Anion Gap 8, BUN 16, Creatinine 0.86, Estim Creat Clear Calc 48.20, Est GFR (MDRD) Af Amer 81, Est GFR (MDRD) Non-Af 67, BUN/Creatinine Ratio 18.6, Glucose 138 H, Calcium 8.8, Magnesium 1.7 01/06/23 05:50: Phosphorus 3.6 01/06/23 05:50: Blood Type A POSITIVE, Antibody Screen NEGATIVE Cardiology Labs/Tests 01/05/23 18:59: PT 21.1 H, INR 1.9 01/06/23 05:50: PT 16.8 H, INR 1.4 01/06/23 05:50: WBC 17.5 H, RBC 5.06, Hgb 13.0, Hct 41.8, MCV 82.6, MCH 25.7 L, MCHC 31.1 L, Plt Count 244, MPV 10.5, Immature Gran % (Auto) 0.500, Neut % (Auto) 82.2 H, Lymph % (Auto) 8.3 L, [place] % (Auto) 8.2, Eos % (Auto) 0.3, Baso % (Auto) 0.5, Absolute Neuts (auto) 14.4 H, Nucleated RBC % 0 01/06/23 05:50: Sodium 135 L, Potassium 4.0, Chloride 99, Carbon Dioxide 28.0, Anion Gap 8, BUN 16, Creatinine 0.86, Est GFR (MDRD) Af Amer 81, Est GFR (MDRD) Non-Af 67, BUN/Creatinine Ratio 18.6, Glucose 138 H, Calcium 8.8, Magnesium 1.7 01/06/23 05:50: Phosphorus 3.6 Rhythm: Electronic ventricular paced Radiography Diagnostic Testing: Radiology Impression Femur X-Ray 01/05/23 19:40 IMPRESSION: Acute intratrochanteric fracture of the right femur. Electronically Signed: Kina Celaya MD at 2:00 EST Reading Location ID and State: [facility] / [place] Tel , Service support , Physical Exam Const alert, oriented x3 and no apparent distress Orientation / Consciousness: awake HEENT normocephalic, head/scalp atraumatic and hearing grossly normal bilaterally Eyes PERRL, EOMs intact bilaterally, conjunctivae normal and no scleral icterus Neck full ROM, supple and no JVD Chest Chest: midline sternotomy incision Resp normal respiratory effort and clear to auscultation bilaterally Cardio regular rate, regular rhythm, S1 normal heart sound and S2 normal heart sound GI normal to inspection, nondistended, normoactive bowel sounds Extremity General Extremity: edema bilateral lower extremity Details: trace Skin no rashes or lesions noted Psych mental status grossly normal Assessment & Plan Assessment/Plan (1) Elevated troponin I level: PLAN: The patient has a mildly elevated high-sensitivity troponin I level. It is not significantly changed. At the present time this appears compatible with the patient's recent AV node ablation procedure superimposed upon her chronic cardiovascular disease process. The patient does not have classic signs or symptoms or other objective findings suggestive of an acute coronary syndrome. It does not appear she requires additional cardiovascular diagnostic studies/intervention at this time. (2) Hypertrophic cardiomyopathy: PLAN: The patient has a history of a hypertrophic obstructive type cardiomyopathy as previously documented. At the moment she has been through extensive noninvasive, invasive, and surgical therapy. She will continue cardiovascular medical management. This includes her metoprolol XL at 100 mg p.o. daily. (3) History of ventricular septal myectomy: PLAN: The patient has undergone previous ventricular septal myectomy as noted based upon her concerns of her hypertrophic obstructive cardiomyopathy. She has undergone subsequent noninvasive valuation with her most recent studies as noted. She will continue medical therapy as deemed appropriate. (4) History of mitral valve repair: PLAN: Also, based upon the patient's previous cardiovascular diagnosis she underwent mitral valve repair. Her most recent noninvasive studies were reviewed. She will continue medical management as deemed appropriate. (5) S/P left atrial appendage ligation: PLAN: The patient underwent evaluation care for left atrial appendage during her open heart surgery procedure as noted above. At the moment she will continue medical therapy which has included her anticoagulant therapy based on her history of underlying atrial dysrhythmias. If at some point in time she cannot tolerate anticoagulant therapy then hopefully her left atrial appendage therapy will be sufficient to minimize the risk of any thromboembolic disease. (6) Atrial fibrillation and flutter: PLAN: The patient has a history of atrial dysrhythmias requiring medical management and multiple synchronized biphasic DC cardioversion procedures. Based upon her recurrent course she is now status post AV node ablation. She still needs to continue her anticoagulant therapy based upon the underlying atrial dysrhythmia to minimize the risk of any thromboembolic events. Thus her anticoagulant therapy should be reinitiated as soon as possible following her orthopedic procedure. In the interim she could be considered for bridging anticoagulant therapy (7) S/P ablation operation for arrhythmia: PLAN: The patient is status post recent AV node ablation. At the moment she appears to be in an underlying electronic ventricular paced rhythm which appears to be appropriate. She will continue to be followed. (8) Chronic diastolic heart failure: PLAN: The patient has a history of chronic diastolic mediated CHF. She has been on medical management with furosemide at 40 mg p.o. daily, potas sium supplement at 20 mg p.o. daily, as well as lisinopril 20 mg p.o. daily. This is superimposed upon her beta-jhon history with her metoprolol XL at 100 mg p.o. daily. (9) Presence of permanent cardiac pacemaker: PLAN: The patient does have a permanent pacemaker in place. It has been followed as an outpatient. It has been functioning appropriately. Addt'l Comments Comment: Time spent in the patient's evaluation, review of medical records, documentation, etc.: 37 minutes. Procedure Criteria Type of Procedure Procedure Type: Elective Elective Risks - COVID COVID Risk Discussion: The surgeon/proceduralist and patient have discussed in detail the risk of exposure to and/or potential harm posed by the COVID-19 virus with having a surgery/procedure at this time versus the risk of delaying the surgery/procedure. It is not possible to know either the risk of delaying the surgery or procedure or chance of getting an infection with perfect accuracy, but a joint decision was made between the patient and the surgeon/proceduralist to proceed at this time with the scheduled surgery/procedure as indicated on the consent form.
[2023-01-06] MEDS: guaiFENesin 1,200 MG Tablet 1200 MG PO (21:19)
[2023-01-06] MEDS: Metoprolol(XL)Succ 100 MG Tablet PO (21:19)
[2023-01-06] MEDS: Gabapentin 100 MG Capsule PO (21:20)
[2023-01-06] MEDS: Cefazolin 1 GM/50 ML BAG IV (21:20)
[2023-01-07] MEDS: guaiFENesin 10 ML UDC (200MG/10ML) PO (00:21)
[2023-01-07 02:24] VITALS: BP 111/71; PULSE 82; RESP 18; TEMP 36.4; O2SAT 94
[2023-01-07] MEDS: 0.9% Saline Lock 10 ML Syringe IV ×3 (04:57→13:43)
[2023-01-07] MEDS: Cefazolin 1 GM/50 ML BAG IV ×2 (05:01→13:44)
[2023-01-07 06:00] VITALS: BMI 22.5
[2023-01-07 06:33] LABS: Absolute Lymphocyte Count 1.28 X10^3/uL (0.83-4.51); Absolute Neutrophil Count 17.4 X10^3/uL (2.0-7.7); Basophil# 0.04 X10^3/uL; Basophil% 0.2 % (0-1); Hematocrit 39.9 % (37-47); Hemoglobin 12.5 g/dL (12.0-15.0); Lymphocyte # 1.28 X10^3/ul (0.83-4.51); Lymphocyte % 6.4 % (19-41); Mean Corp Hgb Conc 31.3 g/dL (32-36); Mean Corpuscular Hgb 25.7 pg (27.0-32.0); Mean Corpuscular Volume 81.9 fL (81-99); Mean Platelet Vol. 10.6 fl (6.2-12.0); Monocyte# 0.96 X10^3/uL; Monocyte% 4.8 % (0-10); NRBC Flagged by Analyzer 0 % (0-5); Neutrophil # 17.41 X10^3/uL (2.7-7.7); Neutrophil % 87.3 % (47-70); Platelet Count 239 K/mm3 (150-450); RBC Distribution Width CV 14.7 % (11.6-14.6); RBC Distribution Width SD 43.5 fl (35.1-43.9); Red Blood Count 4.87 M/mm3 (4.2-5.4); White Blood Count 19.9 K/mm3 (4.4-11.0)
[2023-01-07 06:47] LABS: International Normalized Ratio 1.2; Prothrombin Time (Protime)PT. 15.3 SECONDS (11.7-14.9)
[2023-01-07 07:12] LABS: Anion Gap 5 (5-15); BUN 18 mg/dL (7-18); Calcium,Total 9.1 mg/dL (8.5-10.1); Chloride 100 mmol/L (98-107); Creatinine, Serum 0.86 mg/dL (0.55-1.02); EST Glomerular Filtration Rate 67 mL/min (>60); Est Glom Filt Rate - Afr Amer 81 mL/min (>60); Glucose 159 mg/dL (74-106); Potassium 4.4 mmol/L (3.5-5.1); Sodium Level 134 mmol/L (136-145)
[2023-01-07 07:19] LABS: Phosphorus 3.5 mg/dL (2.5-4.9)
[2023-01-07 07:41] VITALS: O2SAT 95
--- NOTE | 2023-01-07 07:46 | PN.HOSP_ITS ---
Reason for Visit Reason for Visit: Diagnoses Fracture of unspecified part of neck of right femur, initial encounter for clos ed fracture (01/04/23) Subjective Subjective Patient underwent treatment of intertrochanteric hip fracture with intramedul nikolay nail right femur 01/06/2023 by Jamie Longoria DO Objective Data Objective Data Vital Signs: Vital Signs Temp Pulse Resp BP Pulse Ox O2 Del Method O2 Flow Rate 97.5 F L 82 18 111/71 95 Nasal Cannula 2 01/07/23 02:24 01/07/23 02:24 01/07/23 02:24 01/07/23 02:24 01/07/23 07:41 01/07/23 07:41 01/07/23 07:41 Oxygen Flow Rate (L/min) 2 Oxygen Delivery Method Nasal Cannula Weight: 65.2 kg Body Mass Index (BMI) 22.5 Intake & Output: Intake and Output for Last 24 Hours 01/05/23 01/06/23 01/07/23 23:59 23:59 23:59 Intake Total 1224.5 / 1224.5 50.00 / 50.00 Output Total 1650 / 1650 300 / 300 400 / 400 Balance -1650 / -1650 924.5 / 924.5 -350.00 / -350.00 Lab / Micro Data Result Diagrams: 01/07/23 06:00 01/07/23 06:00 Labs: Laboratory Results - last 24 hr 01/07/23 06:00: PT 15.3 H, INR 1.2 01/07/23 06:00: WBC 19.9 H, RBC 4.87, Hgb 12.5, Hct 39.9, MCV 81.9, MCH 25.7 L, MCHC 31.3 L, RDW Std Deviation 43.5, RDW Coeff of Neelima 14.7 H, Plt Count 239, MPV 10.6, Immature Gran % (Auto) 1.300 H, Neut % (Auto) 87.3 H, Lymph % (Auto) 6.4 L , [place] % (Auto) 4.8, Eos % (Auto) 0.0, Baso % (Auto) 0.2, Absolute Neuts (auto) 17.4 H, Absolute Lymphs (auto) 1.28, Nucleated RBC % 0 01/07/23 06:00: Sodium 134 L, Potassium 4.4, Chloride 100, Carbon Dioxide 29.0, Anion Gap 5, BUN 18, Creatinine 0.86, Estim Creat Clear Calc 48.20, Est GFR (MDRD) Af Amer 81, Est GFR (MDRD) Non-Af 67, BUN/Creatinine Ratio 21.0 H, Glucose 159 H, Calcium 9.1 01/07/23 06:00: Phosphorus 3.5 Micro: Microbiology 01/04/23 20:17 Mucosa - Nose Respiratory Panel (PCR) - Final 01/04/23 20:17 Nasal Secretion SARS-CoV-2 & FLU Antigen (Rapid) - Final Physical Exam Narrative GENERAL: cooperative HEENT: Atraumatic; normocephalic EYES; Anicteric, Normal Conjunctiva NECK; supple, normal thyroid, RESPIRATORY: Diminished to auscultation CARDIOVASCULAR: Regular S1 S2, GI: soft, normoactive bowel sounds, : No Renal angle tenderness; EXTREMITIES: Right hip incision CDI MUSCULOSKELETAL: no muscle wasting NEURO: Awake; no lateralizing signs. SKIN: No Rash PSYCH; Flat affect Assessment & Plan Assessment/Plan (1) Fall: (2) Closed fracture of right hip: PLAN: Plan Patient is an 82-year-old lady who fell off and Subsequently developed right hip pain presented to the emergency department imaging studies demonstrated right intertrochanteric fracture admitted to regular nursing floor with consultation placed to orthopedic surgery 1. Right intertrochanteric fracture ? Following a mechanical fall admitted to regular nursing floor managed with immobilization pain medication with consultation placed to orthopedic surgery Patient has significant cardiac history including cardiomyopathy with an ejection fraction of 35%. She recently underwent ablation as well and was found to have elevated troponin. Consult placed to cardiology prior to patient undergoing any surgical intervention -01/06/2023; Patient INR is 1.4 Case was discussed with Dr. Durán the day prior plan is to proceed with ORIF today -01/07/2023; Patient underwent treatment of intertrochanteric hip fracture with intramedullary nail right femur 01/06/2023 by Jamie Longoria DO 2. Elevated troponin ? Secondary to probably muscle injury following patient recent ablation 3. Acute hypoxia ? Possibly related to atelectasis patient work-up so far negative to date ? 01/07/2023 patient did develop a cough during the night treated symptomatically chest x-ray ordered this a.m. for further evaluation 4. Paroxysmal A-fib ? Rate controlled on systemic anticoagulation with Coumadin INR on admission was 2.5 which is currently being held next patient of patient procedure. Patient underwent ablation days prior to her admission ? 01/07/2023 Coumadin resumed statin 01/07/2023 daily INR ordered for monitoring 4. Sick sinus syndrome ? Status post pacemaker placement 6. Chronic congestive heart failure with reduced ejection fraction ? Patient is on furosemide did continue. Also on beta-blockers continued as well 7. Hypertension - Blood pressure controlled, home medications continued with dose adjustment as needed 8. Valvular heart disease ? With history of mitral valve repair with septal myomectomy 9. Chronic neuropathic pain ? Patient is on gabapentin did continue 10. DVT prophylaxis ? Patient is on Coumadin no need for additional measures 11. Leukocytosis ? Given patient hypoxia chest x-ray has been ordered to rule out pneumonia Time spent in the patient's overall evaluation,decision-making process, review of diagnostic data, adjustment of management, discussion with other providers, nursing nursing and ancillary staff involved in patient's care documentation,55 Minutes Charges/Coding Visit Charges Inpatient E&M: 68250 [facility] Hosp L3
[2023-01-07 08:00] VITALS: BP 113/79; PULSE 81; RESP 18; TEMP 36.5; O2SAT 95
--- NOTE | 2023-01-07 08:35 | RAD_ITS ---
STUDY: X-RAY CHEST REASON FOR EXAM: Female, 82 years old. Hypoxia. TECHNIQUE: PA and lateral views of the chest. COMPARISON: January 04, 2023. FINDINGS: The lungs are clear and expanded. There is no demonstrated pleural abnormality. Normal size heart. Normal mediastinum and niharika. Normal visualized pulmonary arteries. Normal visualized aortic arch and descending thoracic aorta. There is an increased kyphosis of the thoracic spine. The heart is normal in size. Stable cardiac pacemaker. Normal visualized ribs, clavicles, and shoulders. There is no demonstrated abnormality of the visualized soft tissue structures of the upper abdomen. RAD/Chest PA and Lateral IMPRESSION: No acute cardiopulmonary disease. Electronically Signed: Homero Wolff DO at 18:33 EST ,
--- NOTE | 2023-01-07 09:20 | CASEMGMT ---
Social Work? SW in to meet with pt following update from therapy team that pt will need placement at nursing facility. SW introduced self and role at the hospital. Pt agreeable to discussing discharge planning. A list of SNF providers was provided to pt previous to pt surgery yesterday. Pt had made choices already and shared that [facility] is preference. If TCU unable to accept [facility] is second choice. RAND sent referral to [facility] at T[facility]. [facility] informed does not see any barriers to acceptance but will need therapy notes to make final decision. ?N[facility]ia will confirm when therapy notes are in. PLAN: TCU, pending acceptance and precert HIRAL Block?
[2023-01-07] MEDS: Potassium Chloride Oral Tablet 20 MEQ PO (09:50)
[2023-01-07] MEDS: Magnesium Chloride 64 MG Delay Rel.Tablet 128 MG PO (09:51)
[2023-01-07] MEDS: guaiFENesin 1,200 MG Tablet 1200 MG PO ×2 (09:51→20:56)
[2023-01-07] MEDS: Furosemide 40 MG Tablet PO (09:51)
[2023-01-07] MEDS: Famotidine 20 MG Tablet PO (09:51)
[2023-01-07] MEDS: Gabapentin 100 MG Capsule PO ×2 (09:59→20:55)
[2023-01-07] MEDS: Calcium Carbonate 500 MG Tablet PO ×3 (09:59→17:07)
--- NOTE | 2023-01-07 13:01 | CASEMGMT ---
Social Work SW received word from [facility] that pt has been accepted and precert has been sent to [employer]. SW in to pt room to inform. Daughter Linda present in room with pt. Pt had questions regarding when and how would get to TCU. SW answered questions and informed that [employer] will have to approve first and it could take a day or two to hear back on approval. Pt and daughter voiced understanding. SW encouraged family to reach out for any other needs/concerns. PLAN: [facility], pending precert HIRAL Block
[2023-01-07 14:00] VITALS: BP 107/55; PULSE 83; RESP 18; TEMP 36.4; O2SAT 93
[2023-01-07] MEDS: oxyCODONE 5 MG Tablet PO (14:38)
--- NOTE | 2023-01-07 16:07 | PN.ORTHO_ITS ---
Subjective Subjective Patient seen and examined. Denies any new complaints. Continues with cough but states this is stable and not worse over the last few days. Reports pain in her right hip especially with weightbearing. She has been up with therapy to chair twice today and to use the restroom. Patient did have a bowel movement today. Denies fevers, chills, nausea vomiting, chest pain or shortness of breath. Objective Data Objective Data Vital Signs: Vital Signs Temp Pulse Resp BP Pulse Ox O2 Del Method O2 Flow Rate 97.6 F L 83 18 107/55 L 93 Room Air 2 01/07/23 14:00 01/07/23 14:00 01/07/23 14:00 01/07/23 14:00 01/07/23 14:00 01/07/23 14:00 01/07/23 08:00 Oxygen Flow Rate (L/min) 2 Oxygen Delivery Method Room Air Weight: 143 lb 11.862 oz Body Mass Index (BMI) 22.5 Intake & Output: Intake and Output for Last 24 Hours 01/05/23 01/06/23 01/07/23 23:59 23:59 23:59 Intake Total 1224.5 / 1224.5 100.00 / 100.00 Output Total 1650 / 1650 300 / 300 400 / 400 Balance -1650 / -1650 924.5 / 924.5 -300.00 / -300.00 Lab / Micro Data Result Diagrams: 01/07/23 06:00 01/07/23 06:00 Labs: Laboratory Results - last 24 hr 01/07/23 06:00: PT 15.3 H, INR 1.2 01/07/23 06:00: WBC 19.9 H, RBC 4.87, Hgb 12.5, Hct 39.9, MCV 81.9, MCH 25.7 L, MCHC 31.3 L, RDW Std Deviation 43.5, RDW Coeff of Neelima 14.7 H, Plt Count 239, MPV 10.6, Immature Gran % (Auto) 1.300 H, Neut % (Auto) 87.3 H, Lymph % (Auto) 6.4 L , Bill[place] % (Auto) 4.8, Eos % (Auto) 0.0, Baso % (Auto) 0.2, Absolute Neuts (auto) 17.4 H, Absolute Lymphs (auto) 1.28, Nucleated RBC % 0 01/07/23 06:00: Sodium 134 L, Potassium 4.4, Chloride 100, Carbon Dioxide 29.0, Anion Gap 5, BUN 18, Creatinine 0.86, Estim Creat Clear Calc 48.20, Est GFR (MDRD) Af Amer 81, Est GFR (MDRD) Non-Af 67, BUN/Creatinine Ratio 21.0 H, Glucose 159 H, Calcium 9.1 01/07/23 06:00: Phosphorus 3.5 Micro: Microbiology 01/04/23 20:17 Mucosa - Nose Respiratory Panel (PCR) - Final 01/04/23 20:17 Nasal Secretion SARS-CoV-2 & FLU Antigen (Rapid) - Final Radiography Diagnostic Testing: Radiology Impression Hip/Pelvis X-Ray 01/06/23 11:00 IMPRESSION: Intraoperative digital documentation views. Electronically Signed: Panda Danielle, at 15:14 EST Reading Location ID and State: [facility] / [place] , Service support , Physical Exam Narrative General - A&Ox3, NAD. VSS/AF Right lower extremity -incisional dressing C/D/I. SILT Sural, Saphenous, SPN, DPN, Tibial N. distributions. DP, PT 2+. BCR. DF, PF, EHL 5/5. No calf TTP. Assessment & Plan Assessment/Plan (1) Closed fracture of right hip: PLAN: POD#1 s/p right hip CMN - Pain control - Medicine following for medical management - PT/OT-weightbearing as tolerated right lower extremity - DVT PPX -hold Coumadin, SCDs, KWAN hose, early mobilization - Case management - D/C planning Patient doing well from my standpoint. Hemoglobin stable. Continue mobilize with PT/OT. Plan to follow-up with me in 2 weeks for x-rays and staple removal. Okay to shower postoperative day #4 if no drainage. Dry sterile dressing changes daily upon discharge. I will sign off at this time. Please not hesit ate to call if any questions or concerns arise. Thank you for the opportunity to care for this patient.
[2023-01-07 20:00] VITALS: BP 105/59; PULSE 82; RESP 18; TEMP 36.5; O2SAT 94
[2023-01-07 20:55] VITALS: PULSE 82
[2023-01-07] MEDS: Metoprolol(XL)Succ 100 MG Tablet PO (20:55)
[2023-01-08] VITALS (7 sets, daily range): BP systolic 110–132; BP diastolic 61–74; PULSE 80–85; RESP 16–20; TEMP 36.6–37.3; O2SAT 93–98; BMI 22.4
[2023-01-08] MEDS: Mag Hydrox/Al Hydrox/Simeth 30 ML UDC 15 ML PO (00:33)
[2023-01-08] MEDS: oxyCODONE 5 MG Tablet PO ×2 (06:28→20:35)
[2023-01-08 07:07] LABS: Absolute Lymphocyte Count 1.99 X10^3/uL (0.83-4.51); Absolute Neutrophil Count 11.4 X10^3/uL (2.0-7.7); Basophil# 0.05 X10^3/uL; Basophil% 0.3 % (0-1); Eosinophil# 0.14 X10^3/uL; Eosinophils% 0.9 % (0-5); Hematocrit 37.3 % (37-47); Hemoglobin 11.7 g/dL (12.0-15.0); Lymphocyte # 1.99 X10^3/ul (0.83-4.51); Lymphocyte % 13.2 % (19-41); Mean Corp Hgb Conc 31.4 g/dL (32-36); Mean Corpuscular Hgb 25.5 pg (27.0-32.0); Mean Corpuscular Volume 81.3 fL (81-99); Mean Platelet Vol. 10.5 fl (6.2-12.0); Monocyte# 1.29 X10^3/uL; Monocyte% 8.6 % (0-10); NRBC Flagged by Analyzer 0 % (0-5); Neutrophil # 11.43 X10^3/uL (2.7-7.7); Platelet Count 262 K/mm3 (150-450); RBC Distribution Width SD 43.5 fl (35.1-43.9); Red Blood Count 4.59 M/mm3 (4.2-5.4); White Blood Count 15.1 K/mm3 (4.4-11.0)
--- NOTE | 2023-01-08 07:07 | PCM.PN.HOSP ---
Reason for Visit Reason for Visit: Diagnoses Fracture of unspecified part of neck of right femur, initial encounter for closed fracture (01/04/23) Subjective Subjective Patient seen did complain of significant right ankle pain relieved with pain medication. Plain x-rays of the right ankle ordered for subsequent eval Objective Data Objective Data Vital Signs: Vital Signs Temp Pulse Resp BP Pulse Ox O2 Del Method O2 Flow Rate 97.8 F 80 18 110/64 98 Nasal Cannula 2 01/08/23 02:30 01/08/23 02:30 01/08/23 02:30 01/08/23 02:30 01/08/23 02:30 01/08/23 02:47 01/08/23 02:47 Oxygen Flow Rate (L/min) 2 Oxygen Delivery Method Nasal Cannula Weight: 64.9 kg Body Mass Index (BMI) 22.4 Intake & Output: Intake and Output for Last 24 Hours 01/06/23 01/07/23 01/08/23 23:59 23:59 23:59 Intake Total 1224.5 / 1224.5 100.00 / 100.00 Output Total 300 / 300 400 / 600 200 / 200 Balance 924.5 / 924.5 -300.00 / -500.00 -200 / -200 Lab / Micro Data Result Diagrams: 01/08/23 06:15 01/08/23 06:15 Labs: Laboratory Results - last 24 hr 01/07/23 06:00: Sodium 134 L, Potassium 4.4, Chloride 100, Carbon Dioxide 29.0, Anion Gap 5, BUN 18, Creatinine 0.86, Estim Creat Clear Calc 48.20, Est GFR (MDRD) Af Amer 81, Est GFR (MDRD) Non-Af 67, BUN/Creatinine Ratio 21.0 H, Glucose 159 H, Calcium 9.1 01/07/23 06:00: Phosphorus 3.5 Micro: Microbiology 01/04/23 20:17 Mucosa - Nose Respiratory Panel (PCR) - Final 01/04/23 20:17 Nasal Secretion SARS-CoV-2 & FLU Antigen (Rapid) - Final Radiography Diagnostic Testing: Radiology Impression Hip/Pelvis X-Ray 01/06/23 11:00 IMPRESSION: Intraoperative digital documentation views. Electronically Signed: Panda Danielle, at 15:14 EST , Chest X-Ray 01/07/23 08:35 IMPRESSION: No acute cardiopulmonary disease. Electronically Signed: Homero Wolff DO at 18:33 EST Reading Location ID and State: [address] [place] [address] Tel [phone], Service support , Physical Exam Narrative GENERAL: cooperative HEENT: Atraumatic; normocephalic EYES; Anicteric, Normal Conjunctiva NECK; supple, normal thyroid, RESPIRATORY: Diminished to auscultation CARDIOVASCULAR: Regular S1 S2, GI: soft, normoactive bowel sounds, : No Renal angle tenderness; EXTREMITIES: Right hip incision CDI MUSCULOSKELETAL: no muscle wasting NEURO: Awake; no lateralizing signs. SKIN: No Rash PSYCH; Flat affect Assessment & Plan Assessment/Plan (1) Fall: (2) Closed fracture of right hip: PLAN: Plan Patient is an 82-year-old lady who fell off and Subsequently developed right hip pain presented to the emergency department imaging studies demonstrated right intertrochanteric fracture admitted to regular nursing floor with consultation placed to orthopedic surgery 1. Right intertrochanteric fracture ? Following a mechanical fall admitted to regular nursing floor managed with immobilization pain medication with consultation placed to orthopedic surgery Patient has significant cardiac history including cardiomyopathy with an ejection fraction of 35%. She recently underwent ablation as well and was found to have elevated troponin. Consult placed to cardiology prior to patient undergoing any surgical intervention -01/06/2023; Patient INR is 1.4 Case was discussed with Dr. Durán the day prior plan is to proceed with ORIF today -01/07/2023; Patient underwent treatment of intertrochanteric hip fracture with intramedullary nail right femur 01/06/2023 by Jamie Longoria DO 2. Elevated troponin ? Secondary to probably muscle injury following patient recent ablation 3. Acute hypoxia ? Possibly related to atelectasis patient work-up so far negative to date ? 01/07/2023 patient did develop a cough during the night treated symptomatically chest x-ray ordered this a.m. for further evaluation 4. Paroxysmal A-fib ? Rate controlled on systemic anticoagulation with Coumadin INR on admission was 2.5 which is currently being held next patient of patient procedure. Patient underwent ablation days prior to her admission ? 01/07/2023 Coumadin resumed statin 01/07/2023 daily INR ordered for monitoring 4. Sick sinus syndrome ? Status post pacemaker placement 6. Chronic congestive heart failure with reduced ejection fraction ? Patient is on furosemide did continue. Also on beta-blockers continued as well 7. Hypertension - Blood pressure controlled, home medications continued with dose adjustment as needed 8. Valvular heart disease ? With history of mitral valve repair with septal myomectomy 9. Chronic neuropathic pain ? Patient is on gabapentin did continue 10. DVT prophylaxis ? Patient is on Coumadin no need for additional measures 11. Leukocytosis ? Given patient hypoxia chest x-ray has been ordered to rule out pneumonia ? 01/09/2020 3 repeat chest x-ray did not show any pneumonia. Patient WBC count trending down 12. Right ankle pain ? 01/08/2023 ordered plain x-rays for further eval Time spent in the patient's overall evaluation,decision-making process, review of diagnostic data, adjustment of management, discussion with other providers, nursing nursing and ancillary staff involved in patient's care documentation, 40 Minutes Charges/Coding Visit Charges Inpatient E&M: 93498 Subs Hosp L2
[2023-01-08 07:13] LABS: International Normalized Ratio 1.2; Prothrombin Time (Protime)PT. 14.7 SECONDS (11.7-14.9)
[2023-01-08 07:16] LABS: Anion Gap 7 (5-15); BUN 33 mg/dL (7-18); BUN/Creat Ratio 37.4 RATIO (10-20); Calcium,Total 8.8 mg/dL (8.5-10.1); Chloride 100 mmol/L (98-107); Creatinine, Serum 0.88 mg/dL (0.55-1.02); EST Glomerular Filtration Rate 65 mL/min (>60); Est Glom Filt Rate - Afr Amer 78 mL/min (>60); Glucose 117 mg/dL (74-106); Potassium 4.2 mmol/L (3.5-5.1); Sodium Level 136 mmol/L (136-145)
[2023-01-08 07:21] LABS: Phosphorus 2.8 mg/dL (2.5-4.9)
[2023-01-08] MEDS: Calcium Carbonate 500 MG Tablet PO ×3 (07:48→16:54)
[2023-01-08] MEDS: Potassium Chloride Oral Tablet 20 MEQ PO (07:48)
[2023-01-08] MEDS: Magnesium Chloride 64 MG Delay Rel.Tablet 128 MG PO (09:35)
[2023-01-08] MEDS: guaiFENesin 1,200 MG Tablet 1200 MG PO ×2 (09:35→22:17)
[2023-01-08] MEDS: Famotidine 20 MG Tablet PO (09:35)
[2023-01-08] MEDS: Furosemide 40 MG Tablet PO (09:35)
[2023-01-08] MEDS: Gabapentin 100 MG Capsule PO ×2 (09:37→22:17)
[2023-01-08] MEDS: Albuterol 2.5 MG/3 ML VIAL.NEB. INHALATION (17:11)
[2023-01-08] MEDS: Metoprolol(XL)Succ 100 MG Tablet PO (22:18)
[2023-01-09] VITALS (9 sets, daily range): BP systolic 110–128; BP diastolic 69–82; PULSE 80–83; RESP 16–22; TEMP 36.6–36.8; O2SAT 92–97; BMI 22.0
[2023-01-09] MEDS: 0.9% Saline Lock 10 ML Syringe IV ×2 (04:39→20:56)
[2023-01-09 06:32] LABS: International Normalized Ratio 1.2; Prothrombin Time (Protime)PT. 14.9 SECONDS (11.7-14.9)
[2023-01-09] MEDS: oxyCODONE 5 MG Tablet PO ×2 (07:18→16:27)
[2023-01-09] MEDS: Potassium Chloride Oral Tablet 20 MEQ PO (07:19)
[2023-01-09] MEDS: Calcium Carbonate 500 MG Tablet PO ×3 (07:20→16:26)
--- NOTE | 2023-01-09 07:30 | PN.HOSP_ITS ---
Reason for Visit Reason for Visit: Diagnoses Fracture of unspecified part of neck of right femur, initial encounter for clos ed fracture (01/04/23) Subjective Subjective Patient seen complains of back pain. Awaiting insurance precertification [facility] facility Objective Data Objective Data Vital Signs: Vital Signs Temp Pulse Resp BP Pulse Ox O2 Del Method O2 Flow Rate 98.2 F 80 20 H 119/71 96 Nasal Cannula 2 01/09/23 04:35 01/09/23 04:35 01/09/23 04:35 01/09/23 04:35 01/09/23 04:35 01/09/23 04:35 01/09/23 04:35 FiO2 95 01/08/23 07:37 Oxygen Flow Rate (L/min) 2 Oxygen Delivery Method Nasal Cannula Weight: 63.9 kg Body Mass Index (BMI) 22.0 Intake & Output: Intake and Output for Last 24 Hours 01/07/23 01/08/23 01/09/23 23:59 23:59 23:59 Intake Total 100.00 / 100.00 Output Total 400 / 600 1250 / 1250 400 / 400 Balance -300.00 / -500.00 -1250 / -1250 -400 / -400 Lab / Micro Data Result Diagrams: 01/08/23 06:15 01/08/23 06:15 Labs: Laboratory Results - last 24 hr 01/09/23 05:35: PT 14.9, INR 1.2 Micro: Microbiology 01/04/23 20:17 Mucosa - Nose Respiratory Panel (PCR) - Final 01/04/23 20:17 Nasal Secretion SARS-CoV-2 & FLU Antigen (Rapid) - Final Physical Exam Narrative GENERAL: cooperative HEENT: Atraumatic; normocephalic EYES; Anicteric, Normal Conjunctiva NECK; supple, normal thyroid, RESPIRATORY: Diminished to auscultation CARDIOVASCULAR: Regular S1 S2, GI: soft, normoactive bowel sounds, : No Renal angle tenderness; EXTREMITIES: Right hip incision CDI MUSCULOSKELETAL: no muscle wasting NEURO: Awake; no lateralizing signs. SKIN: No Rash PSYCH; Flat affect Assessment & Plan Assessment/Plan (1) Fall: (2) Closed fracture of right hip: PLAN: Plan Patient is an 82-year-old lady who fell off and Subsequently developed right hip pain presented to the emergency department imaging studies demonstrated right intertrochanteric fracture admitted to regular nursing floor with consultation placed to orthopedic surgery 1. Right intertrochanteric fracture ? Following a mechanical fall admitted to regular nursing floor managed with immobilization pain medication with consultation placed to orthopedic surgery Patient has significant cardiac history including cardiomyopathy with an ejection fraction of 35%. She recently underwent ablation as well and was found to have elevated troponin. Consult placed to cardiology prior to patient undergoing any surgical intervention -01/06/2023; Patient INR is 1.4 Case was discussed with Dr. Durán the day prior plan is to proceed with ORIF today -01/07/2023; Patient underwent treatment of intertrochanteric hip fracture with intramedullary nail right femur 01/06/2023 by Jamie Longoria, DO ? 01/09/2023; patient pain well controlled. Awaiting insurance precertification [facility] to [facility] facility. 2. Elevated troponin ? Secondary to probably muscle injury following patient recent ablation 3. Acute hypoxia ? Possibly related to atelectasis patient work-up so far negative to date ? 01/07/2023 patient did develop a cough during the night treated symptomatically chest x-ray ordered this a.m. for further evaluation 4. Paroxysmal A-fib ? Rate controlled on systemic anticoagulation with Coumadin INR on admission was 2.5 which is currently being held next patient of patient procedure. Patient underwent ablation days prior to her admission ? 01/07/2023 Coumadin resumed statin 01/07/2023 daily INR ordered for monitoring 4. Sick sinus syndrome ? Status post pacemaker placement 6. Chronic congestive heart failure with reduced ejection fraction ? Patient is on furosemide did continue. Also on beta-blockers continued as well 7. Hypertension - Blood pressure controlled, home medications continued with dose adjustment as needed 8. Valvular heart disease ? With history of mitral valve repair with septal myomectomy 9. Chronic neuropathic pain ? Patient is on gabapentin did continue 10. DVT prophylaxis ? Patient is on Coumadin no need for additional measures 11. Leukocytosis ? Given patient hypoxia chest x-ray has been ordered to rule out pneumonia ? 01/09/2020 3 repeat chest x-ray did not show any pneumonia. Patient WBC count trending down 12. Right ankle pain ? 01/08/2023 ordered plain x-rays for further eval Time spent in the patient's overall evaluation,decision-making process, review of diagnostic data, adjustment of management, discussion with other providers, nursing nursing and ancillary staff involved in patient's care documentation, 35 Minutes Charges/Coding Visit Charges Inpatient E&M: 63559 Subs Hosp L2
[2023-01-09] MEDS: guaiFENesin 1,200 MG Tablet 1200 MG PO ×2 (09:53→20:57)
[2023-01-09] MEDS: Magnesium Chloride 64 MG Delay Rel.Tablet 128 MG PO (09:53)
[2023-01-09] MEDS: Furosemide 40 MG Tablet PO (09:53)
[2023-01-09] MEDS: Famotidine 20 MG Tablet PO (09:53)
[2023-01-09] MEDS: Gabapentin 100 MG Capsule PO ×2 (09:56→20:57)
--- NOTE | 2023-01-09 10:56 | CASEMGMT ---
Social Work SW informed by Nazia at TCU there was some mix up/confusion on beds and pt bed may not be open for 1-2 days. Pt is still pending precert at this time. HIRAL Block
--- NOTE | 2023-01-09 11:00 | CASEMGMT ---
Addendum entered by Rocío Madrigal 01/09/23 11:43: SW notified pt son, Tirso, of approval for TCU. SW explained bed will not be open until tomorrow 01/10 and that pt can d/c there tomorrow. Tirso voiced understanding and shared intent to relay information to pt when pt is awake. Original Note: Social Work SW reached out to Nazia at TCU to inquire about precert. Precert has been obtained and a bed will be open for pt to admit tomorrow. MD Byrd updated. HIRAL Block
[2023-01-09] MEDS: HYDROmorphone Inj 0.2 MG/ML SYRINGE IV (20:57)
[2023-01-09] MEDS: Metoprolol(XL)Succ 100 MG Tablet PO (20:57)
[2023-01-10 03:15] VITALS: BP 121/85; PULSE 82; RESP 18; TEMP 36.9; O2SAT 98
[2023-01-10] MEDS: oxyCODONE 5 MG Tablet PO ×3 (04:10→14:20)
[2023-01-10 04:19] VITALS: BMI 22.1
--- NOTE | 2023-01-10 07:21 | PCM.DC.SUM ---
Providers Date of Admission: 01/04/23 Date of Discharge: 01/10/23 Primary Care Physician: Dr. Cheyanne Holt MD Consultations 01/04/23 19:22 Consult: Cardiology Routine Consulting Provider: Arnold Bland Reason for Consult: preop clearance EMERGENT Consult: No Notified: Yes Date Notified: 01/04/23 Time Notified: 19:22 Method of Notification: Verbal 01/05/23 07:49 Consult: Orthopedics Routine Consulting Provider: Rafael Durán Reason for Consult: right intertrochanteric hip fx EMERGENT Consult: No Notified: Yes Date Notified: 01/05/23 Time Notified: 07:49 Method of Notification: Verbal Reason For Visit: RIGHT INTERTROCHANTERIC HIP FX Diagnosis Discharge Diagnosis (1) Fall: Status: Acute Code(s): W19.XXXA - Unspecified fall, initial encounter (2) Closed fracture of right hip: Status: Acute Code(s): S72.001A - Fracture of unspecified part of neck of right femur, initial encounter for closed fracture Plan Patient is an 82-year-old lady who fell off and Subsequently developed right hip pain presented to the emergency department imaging studies demonstrated right intertrochanteric fracture admitted to regular nursing floor with consultation placed to orthopedic surgery 1. Right intertrochanteric fracture ? Following a mechanical fall admitted to regular nursing floor managed with immobilization pain medication with consultation placed to orthopedic surgery Patient has significant cardiac history including cardiomyopathy with an ejection fraction of 35%. She recently underwent ablation as well and was found to have elevated troponin. Consult placed to cardiology prior to patient undergoing any surgical intervention -01/06/2023; Patient INR is 1.4 Case was discussed with Dr. Durán the day prior plan is to proceed with ORIF today -01/07/2023; Patient underwent treatment of intertrochanteric hip fracture with intramedullary nail right femur 01/06/2023 by Jamie Longoria DO ? 01/09/2023; patient pain well controlled. Awaiting insurance precertification prior to transfer to assisted facility. 2. Elevated troponin ? Secondary to probably muscle injury following patient recent ablation 3. Acute hypoxia ? Possibly related to atelectasis patient work-up so far negative to date ? 01/07/2023 patient did develop a cough during the night treated symptomatically chest x-ray ordered this a.m. for further evaluation 4. Paroxysmal A-fib ? Rate controlled on systemic anticoagulation with Coumadin INR on admission was 2.5 which is currently being held next patient of patient procedure. Patient underwent ablation days prior to her admission ? 01/07/2023 Coumadin resumed statin 01/07/2023 daily INR ordered for monitoring 4. Sick sinus syndrome ? Status post pacemaker placement 6. Chronic congestive heart failure with reduced ejection fraction ? Patient is on furosemide did continue. Also on beta-blockers continued as well 7. Hypertension - Blood pressure controlled, home medications continued with dose adjustment as needed 8. Valvular heart disease ? With history of mitral valve repair with septal myomectomy 9. Chronic neuropathic pain ? Patient is on gabapentin did continue 10. DVT prophylaxis ? Patient is on Coumadin no need for additional measures 11. Leukocytosis ? Given patient hypoxia chest x-ray has been ordered to rule out pneumonia ? 01/09/2020 3 repeat chest x-ray did not show any pneumonia. Patient WBC count trending down 12. Right ankle pain ? 01/08/2023 ordered plain x-rays for further eval Time spent in the patient's overall evaluation,decision-making process, review of diagnostic data, adjustment of management, discussion with other providers, nursing nursing and ancillary staff involved in patient's care documentation, 35 Minutes Medications at Discharge Home Medications magnesium oxide 400 mg PO DAILY supplement 04/06/19 gabapentin 100 mg capsule 300 mg PO BID NERVE PAIN 10/04/22 warfarin 1 mg tablet See Rx Instructions .Route .COMPLEX blood thinner 10/05/22 lisinopril 20 mg tablet 20 mg PO DAILY blood pressure #90 tabs 10/16/22 metoprolol succinate 100 mg tablet,extended release 24 hr 100 mg PO DAILY #90 tabs 10/16/22 warfarin 3 mg tablet 3 mg PO .COMPLEX blood thinner #45 tabs 11/04/22 furosemide 40 mg tablet (Lasix) 40 mg PO DAILY #90 tabs 11/07/22 potassium chloride 20 mEq tablet,extended release 20 meq PO DAILY supplement- with lasix 11/07/22 oxycodone 5 mg tablet 5 mg PO Q6H PRN pain 3 days #12 tabs 01/09/23 Hospital Course Summary of Care Provided Minutes Spent on Discharge: 35 Physical Exam Narrative GENERAL: cooperative HEENT: Atraumatic; normocephalic EYES; Anicteric, Normal Conjunctiva NECK; supple, normal thyroid, RESPIRATORY: Diminished to auscultation CARDIOVASCULAR: Regular S1 S2, GI: soft, normoactive bowel sounds, : No Renal angle tenderness; EXTREMITIES: Right hip incision CDI MUSCULOSKELETAL: no muscle wasting NEURO: Awake; no lateralizing signs. SKIN: No Rash PSYCH; Flat affect Weight / BMI Weight Weight: 64.2 kg Body Mass Index (BMI) 22.1 ABG / Lab / Microbiology Data Result Diagrams: 01/10/23 05:15 01/10/23 05:15 Microbiology: Microbiology 01/04/23 20:17 Mucosa - Nose Respiratory Panel (PCR) - Final 01/04/23 20:17 Nasal Secretion SARS-CoV-2 & FLU Antigen (Rapid) - Final D/C Instructions Discharge Diet: No restrictions Discharge Activity: Return to Normal Activity Call your doctor if you observe: Fever of 101 or Higher, Shortness of breath, Fainting spells and Chest pain Meaningful Use Info Meaningful Use Diagnoses (Choose all that apply): None applicable Discharge Plan Admission Admit Date/Time: 01/04/23 18:35 Attending Provider: Isrrael Byrd Primary Care Provider: Cheyanne Holt Consulting Providers: Janet Huff ; Arnold Bland ; Rafael Durán Instructions Additional Instructions / Restrictions: Right Hip: Okay to shower postoperative day #4 if no drainage, no tub soaks. Dry sterile dressing changes daily upon discharge. Weight bearing as tolerated Right leg. Discharge Orders/Prescriptions Prescriptions: Continued magnesium oxide 400 mg magnesium tablet 400 mg PO DAILY gabapentin 100 mg capsule 300 mg PO BID warfarin 1 mg tablet See Rx Instructions .ROUTE .COMPLEX Protocol: Dose Management Condition: Thursday Dose/Route: 1.5 mg Instruction: 0.5 x 3 mg tablets Condition: Thursday Dose/Route: 1.5 mg Instruction: 0.5 x 3 mg tablets Condition: Thursday Dose/Route: 1.5 mg Instruction: 0.5 x 3 mg tablets Condition: Thursday Dose/Route: 3 mg Instruction: 1 x 3 mg tablet Condition: Dose/Route: 3 mg Instruction: 1 x 3 mg tablet Condition: Thursday Dose/Route: 1.5 mg Instruction: 0.5 x 3 mg tablets Condition: Thursday Dose/Route: 1.5 mg Instruction: 0.5 x 3 mg tablets Protocol Text: Adjustment Start Date: 01/01/23 INR Value: 2.2 INR Date: 01/01/23 Recheck Date: 01/08/23 Rx Instructions: 1.5 mg orally ;3mg orally Thursday and , 1.5 the remaining days of the week oxycodone 5 mg tablet 5 mg PO Q6H PRN (Reason: pain) 3 Days Qty: 12 0RF metoprolol succinate 100 mg tablet extended release 24 hr 100 mg PO DAILY Qty: 90 4RF lisinopril 20 mg tablet 20 mg PO DAILY Qty: 90 4RF warfarin 3 mg tablet 3 mg PO .COMPLEX Qty: 45 3RF Protocol: Dose Management Condition: Thursday Dose/Route: 1.5 mg Instruction: 0.5 x 3 mg tablets Condition: Thursday Dose/Route: 1.5 mg Instruction: 0.5 x 3 mg tablets Condition: Thursday Dose/Route: 1.5 mg Instruction: 0.5 x 3 mg tablets Condition: Thursday Dose/Route: 3 mg Instruction: 1 x 3 mg tablet Condition: Dose/Route: 3 mg Instruction: 1 x 3 mg tablet Condition: Thursday Dose/Route: 1.5 mg Instruction: 0.5 x 3 mg tablets Condition: Thursday Dose/Route: 1.5 mg Instruction: 0.5 x 3 mg tablets Protocol Text: Adjustment Start Date: 01/01/23 INR Value: 2.2 INR Date: 01/01/23 Recheck Date: 01/08/23 Rx Instructions: 3mg orally Thursday and , 1.5 the remaining days of the week potassium chloride 20 mEq tablet extended release 20 meq PO DAILY furosemide [Lasix] 40 mg tablet 40 mg PO DAILY Qty: 90 3RF Discontinued hydrocodone-acetaminophen 5-325 mg tablet 0.5 tab PO BID Referrals / Follow Up: Cheyanne Holt MD [Primary Care Provider] - Jamie Longoria DO [Med Staff - Active Staff] - 01/23/23 Disposition Disposition (needs filled in before D/C Order can be placed): Shelter Facility Charges/Coding Visit Charges Inpatient E&M: 52050 Disch Hosp >30min
[2023-01-10 07:48] LABS: Absolute Lymphocyte Count 1.96 X10^3/uL (0.83-4.51); Absolute Neutrophil Count 11.9 X10^3/uL (2.0-7.7); Basophil# 0.15 X10^3/uL; Basophil% 0.9 % (0-1); Eosinophil# 0.21 X10^3/uL; Eosinophils% 1.3 % (0-5); Hematocrit 43.3 % (37-47); Hemoglobin 13.7 g/dL (12.0-15.0); Lymphocyte # 1.96 X10^3/ul (0.83-4.51); Lymphocyte % 12.1 % (19-41); Mean Corp Hgb Conc 31.6 g/dL (32-36); Mean Corpuscular Hgb 25.8 pg (27.0-32.0); Mean Corpuscular Volume 81.5 fL (81-99); Mean Platelet Vol. 10.6 fl (6.2-12.0); Monocyte# 1.65 X10^3/uL; Monocyte% 10.2 % (0-10); NRBC Flagged by Analyzer 0 % (0-5); Neutrophil # 11.92 X10^3/uL (2.7-7.7); Neutrophil % 73.3 % (47-70); POSITIVE DIFFERENTIAL YES; Platelet Count 402 K/mm3 (150-450); RBC Distribution Width CV 14.9 % (11.6-14.6); RBC Distribution Width SD 43.8 fl (35.1-43.9); Red Blood Count 5.31 M/mm3 (4.2-5.4); White Blood Count 16.3 K/mm3 (4.4-11.0)
[2023-01-10] MEDS: Potassium Chloride Oral Tablet 20 MEQ PO (07:54)
[2023-01-10] MEDS: Calcium Carbonate 500 MG Tablet PO ×2 (07:54→12:51)
[2023-01-10 08:01] LABS: Anion Gap 10 (5-15); BUN 32 mg/dL (7-18); BUN/Creat Ratio 35.8 RATIO (10-20); Calcium,Total 9.3 mg/dL (8.5-10.1); Chloride 96 mmol/L (98-107); EST Glomerular Filtration Rate 64 mL/min (>60); Est Glom Filt Rate - Afr Amer 77 mL/min (>60); Estimated Creatinine Clearance 45.25 ml/min; Glucose 130 mg/dL (74-106); Magnesium 2.2 mg/dL (1.6-2.6); Potassium 4.4 mmol/L (3.5-5.1); Sodium Level 135 mmol/L (136-145)
[2023-01-10 08:07] LABS: Differential Indicated SCAN CRITERIA MET
[2023-01-10 08:35] VITALS: BP 113/79; PULSE 85; RESP 16; TEMP 36.4; O2SAT 94
[2023-01-10 08:50] LABS: International Normalized Ratio 1.4; Prothrombin Time (Protime)PT. 16.8 SECONDS (11.7-14.9)
[2023-01-10] MEDS: Gabapentin 100 MG Capsule PO (09:44)
[2023-01-10] MEDS: guaiFENesin 1,200 MG Tablet 1200 MG PO (09:45)
[2023-01-10] MEDS: Furosemide 40 MG Tablet PO (09:45)
[2023-01-10] MEDS: Magnesium Chloride 64 MG Delay Rel.Tablet 128 MG PO (09:45)
[2023-01-10] MEDS: Famotidine 20 MG Tablet PO (09:46)
[2023-01-10 10:22] LABS: Differential Comment SCANNED
[2023-01-10 15:00] VITALS: BP 121/72; PULSE 85; RESP 17; TEMP 37; O2SAT 93
[2023-01-12 13:58] LABS: Pathologist Review Reviewed
== END 2023-01-10 15:41 | disposition skilled nursing facility (03) | DRG 481 ==
LOC: ED 18:40 → MS3 18:49
PROVIDERS: Orthopaedic Surgery; Student in an Organized Health Care Education/Training Program; Admitting Provider Internal Medicine; Emergency Provider Emergency Medicine; PCP Internal Medicine; Visit Provider Internal Medicine
PROC: 0QS636Z Reposition Right Upper Femur with Intramedullary Internal Fixation Device, Percutaneous Approach (ICD-10-PCS; CPT 27245; principal; 2023-01-06 11:30)
DX: S72.141A Displaced intertrochanteric fracture of right femur, initial encounter for closed fracture (principal); I42.1 Obstructive hypertrophic cardiomyopathy; I50.22 Chronic systolic (congestive) heart failure; I5A Non-ischemic myocardial injury (non-traumatic); I49.5 Sick sinus syndrome; I48.0 Paroxysmal atrial fibrillation; D64.9 Anemia, unspecified; G62.9 Polyneuropathy, unspecified; D72.829 Elevated white blood cell count, unspecified; I11.0 Hypertensive heart disease with heart failure; J44.9 Chronic obstructive pulmonary disease, unspecified; E78.5 Hyperlipidemia, unspecified; I34.0 Nonrheumatic mitral (valve) insufficiency; W10.9XXA Fall (on) (from) unspecified stairs and steps, initial encounter; G89.29 Other chronic pain; Y92.512 Supermarket, store or market as the place of occurrence of the external cause; R79.1 Abnormal coagulation profile; R09.02 Hypoxemia; Z20.822 Contact with and (suspected) exposure to COVID-19; Z79.01 Long term (current) use of 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; Z79.899 Other long term (current) drug therapy; Z87.891 Personal history of nicotine dependence; Z95.0 Presence of cardiac pacemaker
CPT/HCPCS: 36415; 36416; 71045; 71046; 73501; 73502; 73552; 76000; 80048; 80053; 82306; 83735; 84100; 84443; 84484; 85025; 85610; 86850; 86900; 86901; 87426; 87428; 87633; 93005; 94668; 97110; 97116; 97162; 97166; 97530; 97535; 99285; C1776; J7030; J7120; A4216; J2405

== ENCOUNTER 2023-01-10 16:00 | Inpatient (IN) | payer MEDICARE, SELFPAY ==
[2023-01-10 16:07] VITALS: BP 110/69; PULSE 79; RESP 18; TEMP 36.7; O2SAT 95; BMI 22.3
--- NOTE | 2023-01-10 16:27 | HP.PCM_ITS ---
[facility] - General General Date of Admission: 01/10/23 Date of Service: 01/12/23 Chief Complaint: Here for rehabilitation. HPI Narrative 01/04/2023 MICHELLE JIMENEZ, is a 83 Female who presents to [facility] Emergency Department with fall, right hip pain. 01/04/2023 EKG ventricular paced rhythm. Fall, fell on right hip, unable to bear weight. On coumadin for atrial fibrillation, cardiac ablation at [facility] 2 days ago. No head injury. Morphine, Zofran given. X-ray confirms right hip fracture. 01/04/2023 Admit to Hospital. Hold coumadin, pain control, bowel regiment, PT/OT, Ortho, cardiology clearance for right hip fracture. Cycle enzymes for elevated troponin. covid19, flu, respiratory panel, incentive spirometer, pulmonary toilet for mild hypoxia. 01/05/2023 Elevated troponin secondary to recent cardiac ablation. 01/06/2023 INR 1.4, okay for surgery. 01/06/2023 Dr. Boss performed right hip intramedullary nail fixation. 01/07/2023 Chest X-ray for cough. Resume coumadin for atrial fibrillation. 01/08/2023 X-ray right ankle for right ankle pain. 01/09/2023 Await Pre-CERT for SNF. Pain controlled. Chest X-ray negative for pneumonia. 01/10/2023 Admit to TCU with debility, here for rehabilitation, strengthening, prior to discharge home alone. 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) LBBB (left bundle branch block) Long QT interval Non-Hodgkin lymphoma Nonrheumatic mitral (valve) insufficiency On home oxygen therapy Paroxysmal atrial fibrillation Paroxysmal atrial fibrillation Persistent atrial fibrillation Polyp, sigmoid colon Presence of permanent cardiac pacemaker (~12/10/21) Sick sinus syndrome Home Medications magnesium oxide 400 mg PO DAILY supplement 04/06/19 [History Last Taken 01/03/23] gabapentin 100 mg capsule 300 mg PO BID NERVE PAIN 10/04/22 [History Last Taken 01/04/23] warfarin 1 mg tablet See Rx Instructions .Route .COMPLEX blood thinner 10/05/22 [History Last Taken 01/03/23] lisinopril 20 mg tablet 20 mg PO DAILY blood pressure #90 tabs 10/16/22 [Rx Last Taken 01/03/23] warfarin 3 mg tablet 3 mg PO .COMPLEX blood thinner #45 tabs 11/04/22 [Rx Last Taken Unknown] potassium chloride 20 mEq tablet,extended release 20 meq PO DAILY supplement- with lasix 11/07/22 [History Last Taken 01/02/23] oxycodone 5 mg tablet 5 mg PO Q6H PRN pain 3 days #12 tabs 01/09/23 [Rx Last Taken Unknown] furosemide 40 mg tablet (Lasix) 40 mg PO DAILY swelling 01/10/23 [History Last Taken Unknown] metoprolol succinate 100 mg tablet,extended release 24 hr 100 mg PO DAILY Blood pressure 01/10/23 [History Last Taken Unknown] Allergy/AdvReac Type Severity Reaction Status Date / Time allopurinol Allergy Rash Verified 01/04/23 16:43 tramadol AdvReac dizzy Verified 01/04/23 16:43 Family History Father Heart disease Hypertension Mother No cardiac disease Surgical History H/O cardiac radiofrequency ablation History of bladder surgery History of cardioversion (~04/25/20) History of left heart catheterization (LHC) (~11/30/17) History of mitral valve repair (~07/30/18) History of ventricular septal myectomy (~07/30/18) Social History household members: none Smoking Status: Former smoker pack-years: 58 how long ago did patient quit smokin years ago alcohol intake: never substance use type: does not use caffeine: No what type of physical activity do you participate in: walking ROS Constitutional Constitutional: Denies chills, fever(s) or weight gain ENT HEENT: Denies headache(s), nasal congestion or nasal discharge Cardiovascular Cardiovascular: Denies chest pain or palpitations Respiratory/Chest Respiratory/Chest: Denies cough, excessive phlegm production or shortness of breath with exertion Gastrointestinal Gastrointestinal: Denies abdominal pain, nausea or vomiting Genitourinary Genitourinary: Denies dysuria Musculoskeletal Musculoskeletal: Denies joint pain or joint swelling Integumentary Integumentary: Denies rash or wounds Neurologic Neurologic: Denies focal weakness, numbness or tingling Psychiatric Psychiatric: Denies anxiety, auditory hallucinations, depression, homicidal ideation or suicidal ideation Vital Signs Vital Signs Vital Signs: 01/10/23 16:07 Temperature 98.0 F Temperature Source Temporal Pulse Rate 79 Respiratory Rate 18 Blood Pressure 110/69 Blood Pressure Mean 82 Blood Pressure Source Monitor Blood Pressure Position Semi-Fowlers Blood Pressure Location Right Arm Pulse Ox 95 Oxygen Delivery Method Nasal Cannula Oxygen Flow Rate (L/min) 2 Weight Weight: 60.781 kg Body Mass Index (BMI) 22.3 Physical Exam Const alert General Appearance: cooperative HEENT normocephalic Eyes PERRL and EOMs intact bilaterally Neck supple, no JVD and no carotid bruits Resp normal respiratory effort, normal air movement and clear to auscultation bilaterally Cardio regular rate and regular rhythm GI normal to inspection, nondistended, normoactive bowel sounds, non-tender and non-distended Extremity normal capillary refill General Extremity: Negative for edema Skin no rashes or lesions noted General Skin Exam: no breakdown Psych affect normal Appearance: appropriate Results Lab / Micro Data Result Diagrams: 01/12/23 05:13 01/12/23 05:13 Assessment & Plan Assessment/Plan (1) Debility: (2) Closed right hip fracture: (3) Hypoxia: (4) Elevated troponin: (5) Atrial fibrillation: (6) Hypomagnesemia: (7) Neuropathic pain: (8) Essential (primary) hypertension: (9) Hypokalemia: (10) Chronic diastolic congestive heart failure: PLAN: Plan 83 year old female with below past medical history hospitalized for right hip fracture, underwent right hip intramedullary nail fixation 01/06/[address] Longoria, compllicated by mild hypoxia, right ankle pain, admitted to TCU with debility, here for rehabilitation, strengthening, prior to discharge home alone. * Debility - PT/OT. * Pain - Tylenol 1000mg q8, Oxycodone 5mg q4h prn pain (6-10). * Bowel - senna/colace 2 tablets bid, Dulcolax 10mg pr x 1 prn, MOM 30ml po x 1 prn. * Adult immunization - Administer pneumonia vaccine, covid19 vaccine, flu vaccine as appropriate. * DVT prophylaxis - Not necessary, on warfarin. * Chronic systolic congestive heart failure - Toprol XL 100mg daily, Furosemide 40mg daily. * Neuropathic pain - Gabapentin 300mg bidcm. * Hypertension - Toprol XL 100mg daily, Lisinopril 20mg daily. * Hypomagnesemia - Magnesium chloride 128mg daily. * Hypokalemia - KCL 20meq daily. * Atrial fibrillation - Toprol XL 100mg daily, warfarin 1.5mg 5 days/week, 3mg 2 days/week, monitor INR. * Hypotension - Normal saline 2 liters IV bolus, then 75cc per hour. * Acute kidney injury - Cr 1.58, order renal ultrasound, post void residual. * Leucocytosis - Order Chest X-ray, Urinalysis, Urine culture.
[2023-01-10 17:11] VITALS: O2SAT 95
[2023-01-10] MEDS: Acetaminophen 500 MG Tablet 1000 MG PO (18:04)
[2023-01-10] MEDS: Senna/Docusate Sodium 1 Tablet 2 TABLET PO (18:04)
[2023-01-10] MEDS: Warfarin 1 MG, Warfarin 0.5 MG 1.5 MG PO (18:07)
[2023-01-10] MEDS: Gabapentin 300 MG Capsule PO (18:15)
--- NOTE | 2023-01-10 18:22 | NURSING ---
THIS NURSE WALKING BY PT ROOM AND FOUND PT SLIDING OUT OF BED TO STAND. EXPLAINED TO PT WHEN SHE FIRST GOT HERE THAT EDUCATED DAIRY FARM OPERATOR LORENZA. REEDUCATED PT AGAIN. PT JUST STATED ALRIGHT. ALARM APPLIED. WILL CONTINUE TO MONITOR.
[2023-01-10 18:47] VITALS: PULSE 79; RESP 18; O2SAT 95
--- NOTE | 2023-01-10 19:14 | NURSING ---
FAMILY TOOK PT WALLET,MONEY,CHECKBOOK AND HOUSE KEYS HOME.
[2023-01-10] MEDS: 0.9% Saline Lock 10 ML Syringe IV (22:53)
[2023-01-11] VITALS (9 sets, daily range): BP systolic 71–100; BP diastolic 42–66; PULSE 79–87; RESP 16–18; TEMP 36.2–36.7; O2SAT 96–97
[2023-01-11] MEDS: Magnesium Chloride 64 MG Delay Rel.Tablet 128 MG PO (06:12)
[2023-01-11] MEDS: Acetaminophen 500 MG Tablet 1000 MG PO ×3 (06:12→20:31)
[2023-01-11] MEDS: Furosemide 40 MG Tablet PO (06:12)
[2023-01-11] MEDS: Lisinopril 20 MG Tablet PO (06:13)
[2023-01-11] MEDS: Metoprolol(XL)Succ 100 MG Tablet PO (06:13)
[2023-01-11 07:11] LABS: Absolute Lymphocyte Count 1.55 X10^3/uL (0.83-4.51); Absolute Neutrophil Count 10.7 X10^3/uL (2.0-7.7); Basophil# 0.11 X10^3/uL; Basophil% 0.8 % (0-1); Eosinophil# 0.34 X10^3/uL; Eosinophils% 2.5 % (0-5); Hematocrit 39.9 % (37-47); Hemoglobin 12.4 g/dL (12.0-15.0); Lymphocyte # 1.55 X10^3/ul (0.83-4.51); Lymphocyte % 11.2 % (19-41); Mean Corp Hgb Conc 31.1 g/dL (32-36); Mean Corpuscular Hgb 25.8 pg (27.0-32.0); Mean Platelet Vol. 10.4 fl (6.2-12.0); Monocyte# 0.93 X10^3/uL; Monocyte% 6.7 % (0-10); NRBC Flagged by Analyzer 0 % (0-5); Neutrophil # 10.72 X10^3/uL (2.7-7.7); Neutrophil % 77.3 % (47-70); Platelet Count 380 K/mm3 (150-450); RBC Distribution Width CV 14.7 % (11.6-14.6); RBC Distribution Width SD 44.5 fl (35.1-43.9); Red Blood Count 4.81 M/mm3 (4.2-5.4); White Blood Count 13.9 K/mm3 (4.4-11.0)
[2023-01-11 07:36] LABS: Anion Gap 8 (5-15); BUN 39 mg/dL (7-18); BUN/Creat Ratio 34.5 RATIO (10-20); Calcium,Total 8.5 mg/dL (8.5-10.1); Chloride 100 mmol/L (98-107); Creatinine, Serum 1.13 mg/dL (0.55-1.02); EST Glomerular Filtration Rate 49 mL/min (>60); Est Glom Filt Rate - Afr Amer 59 mL/min (>60); Estimated Creatinine Clearance 33.35 ml/min; Glucose 184 mg/dL (74-106); Potassium 3.7 mmol/L (3.5-5.1); Sodium Level 138 mmol/L (136-145)
[2023-01-11] MEDS: Gabapentin 300 MG Capsule PO ×2 (09:08→17:22)
[2023-01-11] MEDS: Potassium Chloride Oral Tablet 20 MEQ PO (09:09)
[2023-01-11] MEDS: Tuberculin,Purif.prot.deriv. 50 TU/ML Vial 0.1 ML ID (09:56)
--- NOTE | 2023-01-11 10:33 | NURSING ---
REMOVED SALINE LOCK DUE TO IT INFILTRATED.
[2023-01-11] MEDS: oxyCODONE 5 MG Tablet PO (11:57)
--- NOTE | 2023-01-11 16:39 | NURSING ---
dr kat updated on pt low Bp and loose stools as well as Bun/cr. new order to DC lisinopril and toprol xl. 500cc NS bolus x1 then recheck BP after
[2023-01-11] MEDS: Warfarin 1 MG, Warfarin 0.5 MG 1.5 MG PO (17:24)
--- NOTE | 2023-01-11 18:27 | NURSING ---
Addendum entered by Chiquita Poon 01/11/23 18:34: dr kat new order for another 1/2 Liter bolus Original Note: BP TAKEN AFTER IV BOLUS. 74/48,HR 68. PT ALERT AND ORIENT X3. RN AWARE, PAGED
--- NOTE | 2023-01-11 18:32 | NURSING ---
updated DR Smith on low BP 78/46 after 1/2 liter bolus. new order to administer another 1/2 liter bolus.
--- NOTE | 2023-01-11 19:00 | NURSING ---
BLADDER SCANNED PT FOR 416,RN AWARE.
--- NOTE | 2023-01-11 19:43 | NURSING ---
BP obtained after 500 bolus 71/46 P:80 RN updated to contact Dr. Smith
--- NOTE | 2023-01-11 19:58 | NURSING ---
Blood pressure rechecked, manual BP 70/50, pulse 80 bpm, contacted Dr. Smith via phone patient states asymptomatic, received new order for 1L NS IV bolus x1 recheck BP when done.
[2023-01-11] MEDS: 0.9% Normal Saline 1,000 ML 999 ML IV (20:31)
--- NOTE | 2023-01-11 21:00 | NURSING ---
Had episode of incontinence at this time , brief changed and cleaned up.
--- NOTE | 2023-01-11 22:34 | NURSING ---
updated on blood pressure via telephone, patient remains asymptomatic. New orders received: CBC/BMP tomorrow, NS IV 75mL/hr stop 01/12/23 @0800. Orders repeated back to Dr. Smith.
[2023-01-11] MEDS: 0.9% Normal Saline 1,000 ML 75 ML IV (23:03)
[2023-01-12] MEDS: oxyCODONE 5 MG Tablet PO ×3 (01:52→19:27)
[2023-01-12 05:09] VITALS: BP 77/50; PULSE 88; RESP 18; TEMP 36.6; O2SAT 94
[2023-01-12 05:10] VITALS: BP 77/50; PULSE 88
[2023-01-12] MEDS: Magnesium Chloride 64 MG Delay Rel.Tablet 128 MG PO (05:25)
[2023-01-12] MEDS: Senna/Docusate Sodium 1 Tablet 2 TABLET PO ×2 (05:25→17:58)
[2023-01-12] MEDS: Acetaminophen 500 MG Tablet 1000 MG PO ×3 (05:25→21:10)
[2023-01-12 05:57] LABS: Absolute Lymphocyte Count 1.83 X10^3/uL (0.83-4.51); Absolute Neutrophil Count 11.1 X10^3/uL (2.0-7.7); Basophil# 0.08 X10^3/uL; Basophil% 0.6 % (0-1); Eosinophil# 0.35 X10^3/uL; Eosinophils% 2.4 % (0-5); Hematocrit 33.4 % (37-47); Hemoglobin 10.3 g/dL (12.0-15.0); Lymphocyte # 1.83 X10^3/ul (0.83-4.51); Lymphocyte % 12.6 % (19-41); Mean Corp Hgb Conc 30.8 g/dL (32-36); Mean Corpuscular Hgb 25.9 pg (27.0-32.0); Mean Corpuscular Volume 84.1 fL (81-99); Mean Platelet Vol. 10.3 fl (6.2-12.0); Monocyte# 0.94 X10^3/uL; Monocyte% 6.5 % (0-10); NRBC Flagged by Analyzer 0 % (0-5); Neutrophil # 11.08 X10^3/uL (2.7-7.7); Neutrophil % 76.3 % (47-70); Platelet Count 334 K/mm3 (150-450); RBC Distribution Width CV 14.9 % (11.6-14.6); RBC Distribution Width SD 45.8 fl (35.1-43.9); Red Blood Count 3.97 M/mm3 (4.2-5.4); White Blood Count 14.5 K/mm3 (4.4-11.0)
[2023-01-12 06:11] LABS: International Normalized Ratio 2.3; Prothrombin Time (Protime)PT. 24.6 SECONDS (11.7-14.9)
[2023-01-12 06:29] LABS: Anion Gap 7 (5-15); BUN 48 mg/dL (7-18); BUN/Creat Ratio 30.4 RATIO (10-20); Calcium,Total 7.7 mg/dL (8.5-10.1); Chloride 105 mmol/L (98-107); Creatinine, Serum 1.58 mg/dL (0.55-1.02); EST Glomerular Filtration Rate 33 mL/min (>60); Est Glom Filt Rate - Afr Amer 40 mL/min (>60); Estimated Creatinine Clearance 23.85 ml/min; Glucose 97 mg/dL (74-106); Potassium 4.2 mmol/L (3.5-5.1); Sodium Level 139 mmol/L (136-145)
--- NOTE | 2023-01-12 07:30 | US_ITS ---
STUDY: RENAL ULTRASOUND - COMPLETE REASON FOR EXAM: Female, 83 years old. Abnormal BUN/creatinine TECHNIQUE: Ultrasound evaluation of the kidneys was performed with real-time and static mirza-scale imaging. COMPARISON: CT from 08/23/2022 FINDINGS: RIGHT KIDNEY: Normal location of the right kidney, which is normal in size. The right kidney measures 10.4 x 4.7 x 3.4 cm. There is a normal cortex of the right kidney. The renal cortex measures 1.1 cm. There is no right renal mass or cyst. There are no right renal calculi. There is no right hydronephrosis. DISTAL RIGHT URETER: There is non-visualization of the distal right ureter. There is no demonstrated right ureterovesical junction calculus. There is a visualized right ureteral jet. LEFT KIDNEY: Normal location of the left kidney, which is normal in size. The left kidney measures 10.0 x 3.7 x 5.1 cm. There is a normal cortex of the left kidney. The renal cortex measures 1.5 cm. There is a parapelvic 1.3 cm cyst. There are no left renal calculi. There is no left hydronephrosis. DISTAL LEFT URETER: There is non-visualization of the distal left ureter. There is no demonstrated left ureterovesical junction calculus. There is a visualized left ureteral jet. AORTA: There is no elongation or tortuosity of the abdominal aorta. I.V.C.: The IVC is patent. BLADDER: The bladder is sonographically normal, but incompletely distended US/Kidney and Bladder IMPRESSION: No suspicious sonographic findings, simple left renal cyst, no specific follow-up needed Electronically Signed: Miguel Ac MD at 10:31 EDT ,
[2023-01-12 07:50] VITALS: O2SAT 94
[2023-01-12] MEDS: Potassium Chloride Oral Tablet 20 MEQ PO (08:10)
[2023-01-12] MEDS: Gabapentin 300 MG Capsule PO ×2 (08:10→17:59)
--- NOTE | 2023-01-12 08:30 | NURSING ---
pt retaining urine, requiring straight cath. U.A. and C &S collected. WBC elevated, Dr Smith ordered chest xray and Renal US.
--- NOTE | 2023-01-12 09:29 | RAD_ITS ---
STUDY: X-RAY CHEST REASON FOR EXAM: Female, 83 years old. Fever and cough TECHNIQUE: PA and lateral views of the chest. COMPARISON: 01/07/2023 FINDINGS: Stable appearance of the left subclavian pacemaker Lungs are expanded with chronic interstitial changes and development of lingular atelectasis since the previous study. There is no demonstrated pleural abnormality. Sternal cerclage wires and vascular clips are present from a prior sternotomy and coronary artery bypass graft procedure (CABG). Normal mediastinum and niharika. Normal visualized pulmonary arteries. Normal visualized aortic arch and descending thoracic aorta. There are diffuse degenerative changes of the visualized thoracic spine. Normal visualized ribs, clavicles, and shoulders. There is no demonstrated abnormality of the visualized soft tissue structures of the upper abdomen. RAD/Chest PA and Lateral IMPRESSION: Lingular atelectasis without effusion. Right lung is clear Electronically Signed: Miguel Ac MD at 9:49 EDT ,
[2023-01-12 10:00] VITALS: PULSE 85; RESP 16; O2SAT 90
--- NOTE | 2023-01-12 10:23 | NURSING ---
Offered Covid bivalent booster and provided education about vaccine. Resident refuses at this time.
[2023-01-12] MEDS: 0.9% Saline Lock 10 ML Syringe IV (10:50)
[2023-01-12 10:59] LABS: Bacteria 0 SEEN /hpf (None Seen); Mucous, Urine 0 SEEN /hpf (<or=2+); Red Blood Cells-Urine 0 SEEN /hpf (0-5); Squamous Epithelial Cells - UA 0 SEEN /hpf (5-10); White Blood Cells 0 SEEN /hpf (0-5)
--- NOTE | 2023-01-12 11:04 | NURSING ---
Perioperative Manager Note; Activity Asset: Complete Priscilla is independent in her choice of daily activities. She has her tablet, smartphone, magazines and books from home. When not in therapy she prefers to visit w/family and rest. Mallory is not interested in group activities at this time, will continue to do social visit and encourage small group activities for social well-being.
[2023-01-12 11:06] LABS: Color, Urine Yellow (Yellow); Glucose, Dipstick Normal (Normal); Ketone-Dipstick Negative (Negative); Leukocyte Esterase-Dipstick Negative /ul (Negative); Nitrite-Dipstick Negative (Negative); Occult Blood-Urine Negative /ul (Negative); Protein-Dipstick 15 mg/dl (Negative); Specific Gravity, Urine 1.015 (1.002-1.030); Urine Bilirubin Dipstick Negative (Negative); Urine Clarity Sl. Cloudy (Clear); Urine Urobilinogen Normal (Normal)
[2023-01-12] MEDS: 0.9% Normal Saline 1,000 ML 75 ML IV (13:23)
[2023-01-12 14:49] VITALS: BP 82/44; PULSE 80; RESP 19; TEMP 36.4; O2SAT 93
[2023-01-12 15:26] LABS: Hemoglobin 10.2 g/dL (12.0-15.0)
[2023-01-12] MEDS: Midodrine HCl 5 MG Tablet 10 MG PO ×2 (16:19→17:58)
[2023-01-13] MEDS: 0.9% Normal Saline 1,000 ML 75 ML IV (02:29)
[2023-01-13 05:29] VITALS: BP 113/57; PULSE 80
[2023-01-13] MEDS: Acetaminophen 500 MG Tablet 1000 MG PO ×3 (05:29→20:41)
[2023-01-13] MEDS: Metoprolol(XL)Succ 100 MG Tablet PO (05:29)
[2023-01-13] MEDS: Magnesium Chloride 64 MG Delay Rel.Tablet 128 MG PO (05:29)
[2023-01-13] MEDS: Menthol/Lanolin/Calamine/Znox 113 GM Tube 1 APPLIC TOPICAL ×2 (05:33→17:21)
[2023-01-13 05:40] LABS: Absolute Lymphocyte Count 1.42 X10^3/uL (0.83-4.51); Absolute Neutrophil Count 9.6 X10^3/uL (2.0-7.7); Basophil% 0.8 % (0-1); Eosinophil# 0.36 X10^3/uL; Eosinophils% 2.8 % (0-5); Hematocrit 33.9 % (37-47); Hemoglobin 10.3 g/dL (12.0-15.0); Lymphocyte # 1.42 X10^3/ul (0.83-4.51); Lymphocyte % 11.2 % (19-41); Mean Corp Hgb Conc 30.4 g/dL (32-36); Mean Corpuscular Hgb 25.4 pg (27.0-32.0); Mean Corpuscular Volume 83.7 fL (81-99); Mean Platelet Vol. 9.9 fl (6.2-12.0); Monocyte# 0.96 X10^3/uL; Monocyte% 7.6 % (0-10); NRBC Flagged by Analyzer 0 % (0-5); Neutrophil # 9.62 X10^3/uL (2.7-7.7); Neutrophil % 75.6 % (47-70); Platelet Count 377 K/mm3 (150-450); RBC Distribution Width CV 15.2 % (11.6-14.6); RBC Distribution Width SD 46.5 fl (35.1-43.9); Red Blood Count 4.05 M/mm3 (4.2-5.4); White Blood Count 12.7 K/mm3 (4.4-11.0)
[2023-01-13 05:59] LABS: Anion Gap 5 (5-15); BUN 31 mg/dL (7-18); BUN/Creat Ratio 34.4 RATIO (10-20); Chloride 113 mmol/L (98-107); EST Glomerular Filtration Rate 63 mL/min (>60); Est Glom Filt Rate - Afr Amer 77 mL/min (>60); Estimated Creatinine Clearance 41.87 ml/min; Glucose 97 mg/dL (74-106); Potassium 4.2 mmol/L (3.5-5.1); Sodium Level 143 mmol/L (136-145)
[2023-01-13 07:47] VITALS: O2SAT 90
[2023-01-13] MEDS: oxyCODONE 5 MG Tablet PO ×3 (08:21→20:40)
[2023-01-13] MEDS: Midodrine HCl 5 MG Tablet 10 MG PO ×3 (08:22→17:16)
[2023-01-13] MEDS: Potassium Chloride Oral Tablet 20 MEQ PO (08:23)
[2023-01-13] MEDS: Gabapentin 300 MG Capsule PO ×2 (08:25→17:20)
[2023-01-13 10:59] VITALS: BMI 23.6
--- NOTE | 2023-01-13 12:20 | NURSING ---
Dr. Curiel updated on need for consult, her office called and stated she would be in to see patient
[2023-01-13 14:00] VITALS: BP 103/56; PULSE 81; RESP 16; TEMP 36.7; O2SAT 94
--- NOTE | 2023-01-13 14:03 | CASEMGMT ---
Social Work Met with patient to complete initial assessment. Introduced self and role. Verified contacts. Discussed code status. Pt confirmed full code. MOLS placed in Dr folder. Pt agreed to have children bring in copies of advanced directives. Educated to [facility] insurance with [employer]D 01/12 and continued stay is not guaranteed with each review. Pt's goal is to return home alone. SW to continue to follow for discharge planning. Luz Chiang, PYROTECHNICS PRESS TENDER HOME THEATER EXPERT
--- NOTE | 2023-01-13 15:45 | CHAPLAIN ---
Type of Pastoral Visit _x__ Initial Visit ___ Follow-up Visit ___ On-call Visit ___ General Patient Visit ___ Spiritual Assessment ___ Family Conference ___ Bereavement ___ Rapid Response ___ Code Blue ___ Other (describe below) Pastoral Care Referral From _x__ Patient ___ Family ___ Nurse ___ Physician ___ Data Analytics Specialist ___ Personal Shopper ___ Other (describe below) Sacrament/Intervention _x__ Active listening ___ Anointing ___ Pentecostalism ___ Bereavement ___ Communion _x__ Cira exploration ___ _x__ Life review _x__ Prayer ___ Reconciliation ___ Sacrament of Sick _x__ Supportive presence ___ Wedding ___ Other (describe below) Pastoral Comments patient gives report of her fall and shares her disappointment and frustration at the accident causing her hip fracture; pt states that she wished she was somewhere enjoying her life and not in this situation; pt has family in state but not local; pt has a heritage in [place] but not connected now; pt was fifteen years ago; pt goal is to get well and go home again; pt open to visits and prayer; no other concerns
--- NOTE | 2023-01-13 16:37 | PHA.CONS_ITS ---
TCU RX Drug Regimen Review Subjective: TCU Admission. 83 YOF presented to the ER with fall, right hip pain. Hospitalized for right hip fracture, underwent right hip intramedullary nail fixation 01/06/[address] Longoria, complicated by mild hypoxia, right ankle pain. Admitted to TCU with debility for strengthening and rehabilitation. Objective: Allergies allopurinol Allergy (Verified 01/04/23 16:43) Rash tramadol Adverse Reaction (Verified 01/04/23 16:43) dizzy Current Medications Generic Name Dose Route Start Last Admin Trade Name Freq PRN Reason Stop Dose Admin Acetaminophen 1,000 mg 01/10/23 17:00 01/13/23 13:19 Acetaminophen 500 Mg Tablet PO 1,000 mg Q8 MAGGIE Administration Bisacodyl 10 mg 01/10/23 16:57 Bisacodyl 10 Mg Suppository RC X1 PRN Constipation Calamine/Phenol 1 applic 01/13/23 06:00 01/13/23 05:33 Menthol/Lanolin/Calamine/Znox 113 Gm Tube TOPICAL 1 applic BID MAGGIE Administration Protocol Gabapentin 300 mg 01/10/23 17:00 01/13/23 08:25 Gabapentin 300 Mg Capsule PO 300 mg BIDCM MAGGIE Administration Magnesium Chloride 128 mg 01/11/23 06:00 01/13/23 05:29 Magnesium Chloride 64 Mg Delay Rel.Tablet PO 128 mg DAILY MAGGIE Administration Magnesium Hydroxide 30 ml 01/10/23 16:57 Magnesium Hydroxide 30 Ml Udc PO X1 PRN Constipation Metoprolol Succinate 100 mg 01/11/23 06:00 01/13/23 05:29 Metoprolol(Xl)Succ 100 Mg Tablet PO 100 mg DAILY MAGGIE Administration Midodrine 10 mg 01/12/23 17:45 01/13/23 14:10 Midodrine Hcl 5 Mg Tablet PO 10 mg TIDCM MAGGIE Administration Oxycodone HCl 5 mg 01/10/23 16:59 01/13/23 12:32 Oxycodone 5 Mg Tablet PO 5 mg Q4H PRN Administration pain 1-10 Potassium Chloride 20 meq 01/11/23 08:00 01/13/23 08:23 Potassium Chloride Oral Tablet 20 Meq PO 20 meq DAILYCM MAGGIE Administration Senna/Docusate Sodium 2 tablet 01/10/23 18:00 01/13/23 05:33 Senna/Docusate Sodium 1 Tablet PO Not Given BID MAGGIE Sodium Chloride 10 - 40 ml 01/10/23 16:08 01/12/23 10:50 0.9% Saline Lock 10 Ml Syringe IV 30 ml UD PRN Administration SALINE FLUSH Tuberculin PPD 0.1 ml 01/18/23 10:00 Tuberculin,Purif.Prot.Deriv. 50 Tu/Ml Vial ID 01/18/23 10:01 X1 ONE Warfarin Sodium 1 mg 01/13/23 17:00 Warfarin 1 Mg Tablet PO [facility] Warfarin Sodium 0.5 mg 01/13/23 17:00 Warfarin 0.5 Mg Tablet PO [facility] Problem List (Last Reviewed 01/10/23 @ 16:[address] Can Smith MD) Chronic diastolic congestive heart failure (Chronic) Hypokalemia (Acute) Essential (primary) hypertension (Acute) Neuropathic pain (Acute) Hypomagnesemia (Acute) Atrial fibrillation (Acute) Elevated troponin (Acute) Hypoxia (Acute) Closed right hip fracture (Acute) Debility (Acute) Vital Signs Temp Pulse Resp BP Pulse Ox O2 Del Method O2 Flow Rate 98.1 F 81 16 103/56 L 94 Room Air 2 01/13/23 14:00 01/13/23 14:00 01/13/23 14:00 01/13/23 14:00 01/13/23 14:00 01/13/23 14:00 01/12/23 09:50 Oxygen Flow Rate (L/min) 2 Oxygen Delivery Method Room Air Weight: 64.501 kg Body Mass Index (BMI) 23.6 Sodium 143 mmol/L (136-145) 01/13/23 05:12 Potassium 4.2 mmol/L (3.5-5.1) 01/13/23 05:12 Chloride 113 mmol/L (98-107) H 01/13/23 05:12 Carbon Dioxide 25.0 mmol/L (21.0-32.0) 01/13/23 05:12 Anion Gap 5 (5-15) 01/13/23 05:12 BUN 31 mg/dL (7-18) H 01/13/23 05:12 Creatinine 0.90 mg/dL (0.55-1.02) 01/13/23 05:12 Est GFR (MDRD) Af Amer 77 mL/min (>60) 01/13/23 05:12 Est GFR (MDRD) Non-Af 63 mL/min (>60) 01/13/23 05:12 BUN/Creatinine Ratio 34.4 RATIO (10-20) H 01/13/23 05:12 Glucose 97 mg/dL (74-106) 01/13/23 05:12 Assessment/Plan: 1. Pain: acetaminophen 1000mg PO Q8 and oxycodone 5mg PO Q4H PRN pain 1-10. Resident has had 6 doses of oxycodone for pain of 7-9 in the RLE/hip/leg. Please continue to monitor for increased pain, PRN usage, constipation and respiratory depression. 2. Bowel: senna/docusate 2T PO BID, bisacodyl 10mg RC x1 PRN constipation and MOM 30mL PO x1 PRN constipation. Resident has not had any PRN doses. Last documented bowel movement 01/10/23. Please continue to monitor for constipation and PRN usage. 3. CHF/atrial fibrillation: metoprolol succinate 100mg PO daily and warfarin 1.5mg PO daily. Please continue to monitor BP (last 103/56), HR (last 81), S/S of bleeding and INR (last 2.3). 4. Hypotension: midodrine 10mg PO TID. Please continue to monitor BP. 5. Hypokalemia: potassium chloride 20mEq PO daily and magnesium chloride 128mg PO daily. Please continue to monitor potassium (last 4.2mmol/L) and magnesium (last 2.2mg/dL 01/10). Assessment/Plan for indications treated with psychotropic medications: 1. Neuropathic pain: gabapentin 300mg PO BIDCM. GDR not appropriate as this resident is using for neuropathic pain. Please continue to monitor for confusion , renal function, falls/fractures (BEERs criteria, pt had a fall/fracture) and delirium/dementia (BEERs criteria). Medical chart and medication regimen reviewed. The following medication irregularities or issues were identified: None Date of Note:: 01/13/23
[2023-01-13] MEDS: Warfarin 0.5 MG Tablet PO (17:16)
[2023-01-13] MEDS: guaiFENesin Dm 10 ML UDC PO (17:20)
[2023-01-13 19:30] VITALS: O2SAT 94
[2023-01-14 05:58] VITALS: BP 134/83; PULSE 86
[2023-01-14] MEDS: Metoprolol(XL)Succ 100 MG Tablet PO (05:58)
[2023-01-14] MEDS: Magnesium Chloride 64 MG Delay Rel.Tablet 128 MG PO (05:58)
[2023-01-14] MEDS: Acetaminophen 500 MG Tablet 1000 MG PO ×3 (05:59→20:49)
[2023-01-14] MEDS: Menthol/Lanolin/Calamine/Znox 113 GM Tube 1 APPLIC TOPICAL ×2 (06:05→17:34)
[2023-01-14] MEDS: oxyCODONE 5 MG Tablet PO ×3 (06:57→20:49)
[2023-01-14] MEDS: guaiFENesin Dm 10 ML UDC PO (06:57)
[2023-01-14 07:13] VITALS: O2SAT 95
[2023-01-14] MEDS: Potassium Chloride Oral Tablet 20 MEQ PO (08:17)
[2023-01-14] MEDS: Midodrine HCl 5 MG Tablet 10 MG PO ×3 (08:17→17:29)
[2023-01-14] MEDS: Gabapentin 300 MG Capsule PO ×2 (08:18→17:32)
--- NOTE | 2023-01-14 09:20 | CASEMGMT ---
Social Work IDT met with patient and son for care plan meeting. Discussed patient's progress in PT/OT/SN. Educated to [facility] insurance with [employer]D 01/21 and continued stay is not guaranteed with each review. Therapy offered family training. Pt's goal is to return home alone at [facility]. Pt does not have support at home. Both children work night time nanny and live out of town. SW to coordinate needs at [facility]. Will continue to follow. Luz Chiang, CASH POSTING REPRESENTATIVE FLIGHT TECHNICIAN
[2023-01-14] MEDS: Ensure Plus High Protein 120 ML LIQUID PO ×2 (12:42→17:32)
[2023-01-14 14:00] VITALS: BP 96/62; PULSE 72; RESP 16; TEMP 36.1; O2SAT 97
[2023-01-14] MEDS: Warfarin 0.5 MG Tablet PO (17:28)
[2023-01-14] MEDS: Senna/Docusate Sodium 1 Tablet 2 TABLET PO (17:29)
[2023-01-15 05:51] LABS: Absolute Lymphocyte Count 1.37 X10^3/uL (0.83-4.51); Absolute Neutrophil Count 5.9 X10^3/uL (2.0-7.7); Basophil# 0.14 X10^3/uL; Basophil% 1.6 % (0-1); Eosinophils% 4.5 % (0-5); Hematocrit 36.7 % (37-47); Hemoglobin 11.3 g/dL (12.0-15.0); Lymphocyte # 1.37 X10^3/ul (0.83-4.51); Lymphocyte % 15.5 % (19-41); Mean Corp Hgb Conc 30.8 g/dL (32-36); Mean Corpuscular Hgb 25.7 pg (27.0-32.0); Mean Corpuscular Volume 83.4 fL (81-99); Mean Platelet Vol. 9.7 fl (6.2-12.0); Monocyte# 0.86 X10^3/uL; Monocyte% 9.7 % (0-10); NRBC Flagged by Analyzer 0 % (0-5); Neutrophil # 5.87 X10^3/uL (2.7-7.7); Neutrophil % 66.4 % (47-70); Platelet Count 375 K/mm3 (150-450); RBC Distribution Width CV 15.5 % (11.6-14.6); RBC Distribution Width SD 46.5 fl (35.1-43.9); White Blood Count 8.8 K/mm3 (4.4-11.0)
[2023-01-15 06:21] LABS: Anion Gap 6 (5-15); BUN 18 mg/dL (7-18); BUN/Creat Ratio 24.8 RATIO (10-20); Calcium,Total 8.7 mg/dL (8.5-10.1); Chloride 109 mmol/L (98-107); Creatinine, Serum 0.72 mg/dL (0.55-1.02); EST Glomerular Filtration Rate 81 mL/min (>60); Est Glom Filt Rate - Afr Amer 99 mL/min (>60); Estimated Creatinine Clearance 37.68 ml/min; Glucose 99 mg/dL (74-106); Potassium 4.3 mmol/L (3.5-5.1); Sodium Level 141 mmol/L (136-145)
[2023-01-15 06:25] LABS: International Normalized Ratio 1.9; Prothrombin Time (Protime)PT. 21.1 SECONDS (11.7-14.9)
[2023-01-15] MEDS: Acetaminophen 500 MG Tablet 1000 MG PO ×3 (06:35→20:38)
[2023-01-15 06:36] VITALS: BP 139/68; PULSE 81
[2023-01-15] MEDS: Magnesium Chloride 64 MG Delay Rel.Tablet 128 MG PO (06:36)
[2023-01-15] MEDS: Metoprolol(XL)Succ 100 MG Tablet PO (06:36)
[2023-01-15] MEDS: Menthol/Lanolin/Calamine/Znox 113 GM Tube 1 APPLIC TOPICAL ×2 (06:36→18:36)
[2023-01-15] MEDS: Ensure Plus High Protein 120 ML LIQUID PO ×3 (08:14→18:34)
[2023-01-15] MEDS: Gabapentin 300 MG Capsule PO ×2 (08:15→18:34)
[2023-01-15] MEDS: oxyCODONE 5 MG Tablet PO ×3 (08:15→20:37)
[2023-01-15] MEDS: Potassium Chloride Oral Tablet 20 MEQ PO (08:15)
[2023-01-15] MEDS: Midodrine HCl 5 MG Tablet 10 MG PO ×3 (08:15→18:34)
--- NOTE | 2023-01-15 08:20 | CON.PCM_ITS ---
Assessment & Plan Assessment/Plan (1) Urinary retention: PLAN: trial of void today with bladder scan post void residual avoid constipation HPI Consult Data Date of Consult: 01/15/23 HPI Narrative Reason for Consultation: urinary retention HPI Narrative: MICHELLE JIMENEZ, is a 83 F who is in the TCU for rehabilitation following cardiac ablation and then a fall with right hip fracture requiring stabilization. Since this time she has been unable to void on her own with adequate emptying. The patient reports having an external wick catheter while she was in the hospital and having no difficulty with voiding. She reports that when she was transferred to the TCU she was told she was not emptying. She has not had a history of urinary retention in the past. She denies urinary incontinence previous to this admission. She reports only 1-2 urinary tract infections in her lifetime. She denies hematuria. She denies having seen a urologist in the past, there is a history of bladder cancer documented. I do not see any notes in her history in the hospital for management of bladder cancer back as early as 2012. She was extremely constipated initially, has had diarrhea since Thursday following a large bowel movement on Thursday. She is not having any pain from the Bates catheter at this time. She has no history of pelvic organ prolapse. [facility] Medical History (Updated 01/15/23 @ 08:[address] 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) LBBB (left bundle branch block) Long QT interval Non-Hodgkin lymphoma Nonrheumatic mitral (valve) insufficiency On home oxygen therapy Paroxysmal atrial fibrillation Paroxysmal atrial fibrillation Persistent atrial fibrillation Polyp, sigmoid colon Presence of permanent cardiac pacemaker (~12/10/21) Sick sinus syndrome Urinary retention Home Medications magnesium oxide 400 mg PO DAILY supplement 04/06/19 [History Last Taken 01/03/23] gabapentin 100 mg capsule 300 mg PO BID NERVE PAIN 10/04/22 [History Last Taken 01/04/23] warfarin 1 mg tablet See Rx Instructions .Route .COMPLEX blood thinner 10/05/22 [History Last Taken 01/03/23] lisinopril 20 mg tablet 20 mg PO DAILY blood pressure #90 tabs 10/16/22 [Rx Last Taken 01/03/23] warfarin 3 mg tablet 3 mg PO .COMPLEX blood thinner #45 tabs 11/04/22 [Rx Last Taken Unknown] potassium chloride 20 mEq tablet,extended release 20 meq PO DAILY supplement- with lasix 11/07/22 [History Last Taken 01/02/23] oxycodone 5 mg tablet 5 mg PO Q6H PRN pain 3 days #12 tabs 01/09/23 [Rx Last Taken Unknown] furosemide 40 mg tablet (Lasix) 40 mg PO DAILY swelling 01/10/23 [History Last Taken Unknown] metoprolol succinate 100 mg tablet,extended release 24 hr 100 mg PO DAILY Blood pressure 01/10/23 [History Last Taken Unknown] Allergy/AdvReac Type Severity Reaction Status Date / Time allopurinol Allergy Rash Verified 01/04/23 16:43 tramadol AdvReac dizzy Verified 01/04/23 16:43 Family History Father Heart disease Hypertension Mother No cardiac disease Surgical History H/O cardiac radiofrequency ablation History of bladder surgery History of cardioversion (~04/25/20) History of left heart catheterization (LHC) (~11/30/17) History of mitral valve repair (~07/30/18) History of ventricular septal myectomy (~07/30/18) Social History household members: none Smoking Status: Former smoker pack-years: 58 how long ago did patient quit smokin years ago alcohol intake: never substance use type: does not use caffeine: No what type of physical activity do you participate in: walking ROS Constitutional Constitutional: Reports systems reviewed and no addt'l complaints, except as documented Eyes Eyes: Reports systems reviewed and no addt'l complaints, except as documented ENT HEENT: Reports systems reviewed and no addt'l complaints, except as documented Cardiovascular Cardiovascular: Reports systems reviewed and no addt'l complaints, except as documented Respiratory/Chest Respiratory/Chest: Reports systems reviewed and no addt'l complaints, except as documented Gastrointestinal Gastrointestinal: Reports bloating, cramping, diarrhea and loose stools Genitourinary Genitourinary: Denies dysuria, hematuria, post void dribbling, urinary hesitancy, urinary incontinence or urinary urgency Integumentary Integumentary: Reports systems reviewed and no addt'l complaints, except as documented Neurologic Neurologic: Reports systems reviewed and no addt'l complaints, except as documented Psychiatric Psychiatric: Reports systems reviewed and no addt'l complaints, except as documented Endocrine Endocrinology: Reports systems reviewed and no addt'l complaints, except as d ocumented Hematologic/Lymphatic Hematologic/Lymphatic: Reports systems reviewed and no addt'l complaints, except as documented Allergic/Immunologic Allergic/Immunologic: Reports systems reviewed and no addt'l complaints, except as documented Physical Exam Narrative Patient is sitting up in chair, no issues with conversation. Const alert and no apparent distress General Appearance: cooperative, comfortable and well kempt HEENT normocephalic, head/scalp atraumatic, external ears normal and external nose normal Eyes General Eye: normal appearance of both eyes Neck General: normal visual inspection and trachea midline Chest inspection of chest normal Resp normal respiratory effort, normal air movement, no retractions and no use of accessory muscles Effort and Inspection: able to speak in complete sentences Cardio regular rate GI soft to palpation Palpation: soft and other Other Details: mild distension Bladder / Kidney Exam: catheter in place and other urine clear yellow Skin no rashes or lesions noted Neuro CN's II-XII intact bilaterally and moves all extremities Psych mental status grossly normal Lab / Micro Data Attestation: I reviewed the patient's lab results. Lab results narrative: negative urine culture Result Diagrams: 01/15/23 05:08 01/15/23 05:08 Labs: Laboratory Results - last 24 hr 01/15/23 05:08: PT 21.1 H, INR 1.9 01/15/23 05:08: WBC 8.8, RBC 4.40, Hgb 11.3 L, Hct 36.7 L, MCV 83.4, MCH 25.7 L, MCHC 30.8 L, RDW Std Deviation 46.5 H, RDW Coeff of Neelima 15.5 H, Plt Count 375, MPV 9.7, Immature Gran % (Auto) 2.300 H, Neut % (Auto) 66.4, Lymph % (Auto) 15.5 L, [place] % (Auto) 9.7, Eos % (Auto) 4.5, Baso % (Auto) 1.6 H, Absolute Neuts (auto) 5.9, Absolute Lymphs (auto) 1.37, Nucleated RBC % 0 01/15/23 05:08: Sodium 141, Potassium 4.3, Chloride 109 H, Carbon Dioxide 26.0, Anion Gap 6, BUN 18, Creatinine 0.72, Estim Creat Clear Calc 37.68, Est GFR (MDRD) Af Amer 99, Est GFR (MDRD) Non-Af 81, BUN/Creatinine Ratio 24.8 H, Glucose 99, Calcium 8.7 Micro: Microbiology 01/12/23 08:05 Urine, Catheterized Urine Culture - Final Culture exhibits no growth.
--- NOTE | 2023-01-15 09:39 | NURSING ---
IN TO SEE PT. STATED SHE WANTS THE JENKINS REMOVED AND BLADDER SCAN PT AND CALL HER WITH RESULTS. RN AWARE
--- NOTE | 2023-01-15 11:54 | NURSING ---
JENKINS REMOVED AT 11:30 AM. PT TOLERATED WELL. 300 OUT. WILL CONTINUE TO MONITOR.
[2023-01-15] MEDS: 0.9% Saline Lock 10 ML Syringe IV (12:01)
[2023-01-15 14:00] VITALS: BP 133/76; PULSE 80; RESP 16; TEMP 36.2; O2SAT 94
--- NOTE | 2023-01-15 14:14 | MDS.RN ---
Pain interview for blossom 01/17/23
--- NOTE | 2023-01-15 15:31 | CASEMGMT ---
Social Work BIMS () and PHQ-9 () completed for MDS assessment. SW explored positive responses. Pt expressing her decline in mood is r/t her decline in medical condition. Pt perseverating on having diarrhea from medication. SW notified pt that Dr is aware of pt's preference to discontinue medications. SW provided emotional support and supportive listening. SW offered medication management or after care resources. Pt denies medications and hopeful mood and symptoms will improve once home and return to [facility]. SW to continue to monitor. Luz Chiang, OPTICAL DISPENSER [employer] DAY ARTIST
--- NOTE | 2023-01-15 17:52 | NURSING ---
AT 1700 PT FINALLY VOIDED. 100 CC OUT. BLADDER SCANNED FOR 160 CC. WILL CONTINUE AND UPDATE DR. DELCID. WHILE WITH PT,CHANGED PT DRESSING TO RIGHT HIP DUE TO MODERATE AMOUNT OF YELLOW/GREEN DRAINAGE. WILL CONTINUE TO MONITOR.
[2023-01-15] MEDS: Warfarin 0.5 MG Tablet PO (18:35)
[2023-01-15 20:15] VITALS: O2SAT 95
[2023-01-16] MEDS: Magnesium Chloride 64 MG Delay Rel.Tablet 128 MG PO (04:36)
[2023-01-16 04:37] VITALS: BP 148/76; PULSE 82
[2023-01-16] MEDS: Acetaminophen 500 MG Tablet 1000 MG PO ×3 (04:37→20:56)
[2023-01-16] MEDS: Menthol/Lanolin/Calamine/Znox 113 GM Tube 1 APPLIC TOPICAL ×2 (04:37→17:35)
[2023-01-16] MEDS: Metoprolol(XL)Succ 100 MG Tablet PO (04:37)
[2023-01-16] MEDS: Ensure Plus High Protein 120 ML LIQUID PO ×3 (07:36→17:35)
[2023-01-16] MEDS: Midodrine HCl 5 MG Tablet 10 MG PO (07:37)
[2023-01-16] MEDS: Gabapentin 300 MG Capsule PO ×2 (07:37→17:35)
[2023-01-16] MEDS: Potassium Chloride Oral Tablet 20 MEQ PO (07:37)
[2023-01-16] MEDS: oxyCODONE 5 MG Tablet PO ×2 (08:59→16:00)
[2023-01-16] MEDS: guaiFENesin Dm 10 ML UDC PO (08:59)
--- NOTE | 2023-01-16 09:34 | NURSING ---
Pt having productive cough with thick, creamy sputum. Expiratory wheezing noted, rhonchi heard in left and right upper lobes with auscultation. Respirations 28 and labored. Pt clammy and c/o not feeling well. Spo2 90% ORA. 2L o2 NC applied, spo2 96%, PRN Robitussin administered, encouraged to cough and use incentive spirometer.
--- NOTE | 2023-01-16 10:32 | NURSING ---
Patient was mildly incontinent of urine. notified patient's nurse
[2023-01-16 12:00] VITALS: BP 159/86
--- NOTE | 2023-01-16 13:32 | NURSING ---
PT REFUSING TO GET OUT OF BED EARLIER. PT COMPLAINING OF BECKI WHEEZING WHEN BREATHING AND COUGHING AND BEING ON 02. LUNGS CHECKED.ASKED PT AND FAMILY IF PT WAS ON 02 PRN AT HOME CAUSE THAT WAS WHEAT WE GOT IN REPORT. FAMILY AND PT STATED YES. EDUCATED PT AND FAMILY ON WHY PT NEEDS TO GET UP IN THE RECLINER AND USE I.S. FAMILY STATED THEY UNDER STOOD. ROBITUSSIN WAS GIVEN EARLIER. NOTE LEFT FOR DR. HERNANDEZ.
--- NOTE | 2023-01-16 13:57 | NURSING ---
PT WANTED TO USE BATH ROOM AND ASKED TO BE PUSHED IN RECLINER INTO BATH ROOM. THIS NURSE EDUCATED PT ON GETTING UP AND WALKING ON HOW IT WILL HELP. PT STATED OK. THIS NURSE AND MANAGER STATISTICS WALKED PT TO BATHROOM. PT WOULD TAKE 2 STEPS AND STATE I CANT DO IT. ENCOURAGED PT AND THEN SHE WOULD TAKE A FEW MORE STEPS. PT HAS NO MOTIVATION AND NEEDS ENCOURAGEMENT.
[2023-01-16 14:00] VITALS: BP 136/72; PULSE 80; RESP 26; TEMP 36.3; O2SAT 94
--- NOTE | 2023-01-16 14:15 | RAD_ITS ---
INDICATION: Productive cough. EXAMINATION/TECHNIQUE: X-RAY - XR Chest 2 Views COMPARISON: January 12, 2023 chest x-ray. FINDINGS: LINES/DEVICES: Left pacer/AICD in place. LUNGS: Interstitial scarring in both lungs, unchanged. Resolution of left basilar atelectasis. No focal consolidation or significant pleural effusion. No pneumothorax. MEDIASTINUM AND CARDIOVASCULAR STRUCTURES: Stable heart size, median sternotomy, possible mitral valve prosthesis, and left atrial appendage clip. BONES AND SOFT TISSUES: Stable degenerative changes.. RAD/Chest PA and Lateral IMPRESSION: No acute findings. Electronically Signed: Arnold Mcarthur MD at 15:56 EDT ,
[2023-01-16 14:21] VITALS: PULSE 91; RESP 24; O2SAT 99
--- NOTE | 2023-01-16 14:42 | NURSING ---
Attempt to flush IV in left FA, no longer patent and observed to be leaking. IV discontinued, gauze applied
--- NOTE | 2023-01-16 14:47 | NURSING ---
CALLED AND UPDATED NURSE ON HOW THE VOIDING AND BLADDER SCANS HAVE BEEN GOING ON PT PER REQUEST.
[2023-01-16] MEDS: Furosemide 40 MG Tablet PO (17:32)
[2023-01-16] MEDS: Doxycycline 100 MG CAPSULE PO ×2 (17:33→18:40)
[2023-01-16] MEDS: MethylPREDNISolone DosePak 4 MG BOX PO ×2 (17:34→20:55)
[2023-01-16] MEDS: Warfarin 0.5 MG Tablet PO (17:34)
--- NOTE | 2023-01-16 18:47 | NURSING ---
CALLED AND UPDATED DAUGHTER ON PT. DAUGHTER THANKED THIS NURSE.
[2023-01-16 19:24] VITALS: PULSE 80; RESP 36; O2SAT 97
[2023-01-16] MEDS: Ipratropium/Albuterol Sulfate 3 ML AMPUL.NEB INHALATION (19:24)
[2023-01-17] VITALS (7 sets, daily range): BP systolic 85–104; BP diastolic 50–68; PULSE 66–88; RESP 16–18; TEMP 36.2; O2SAT 91–97
[2023-01-17] MEDS: oxyCODONE 5 MG Tablet PO ×3 (00:30→20:17)
[2023-01-17] MEDS: Furosemide 40 MG Tablet PO (04:53)
[2023-01-17] MEDS: Lisinopril 20 MG Tablet PO (04:54)
[2023-01-17] MEDS: Acetaminophen 500 MG Tablet 1000 MG PO ×3 (04:54→21:31)
[2023-01-17] MEDS: Doxycycline 100 MG CAPSULE PO ×2 (04:54→16:55)
[2023-01-17] MEDS: Magnesium Chloride 64 MG Delay Rel.Tablet 128 MG PO (04:54)
[2023-01-17] MEDS: Menthol/Lanolin/Calamine/Znox 113 GM Tube 1 APPLIC TOPICAL ×2 (04:57→16:56)
[2023-01-17] MEDS: Ipratropium/Albuterol Sulfate 3 ML AMPUL.NEB INHALATION ×2 (07:37→15:44)
[2023-01-17] MEDS: Ensure Plus High Protein 120 ML LIQUID PO ×3 (08:21→16:58)
[2023-01-17] MEDS: Gabapentin 300 MG Capsule PO ×2 (08:34→16:55)
[2023-01-17] MEDS: Potassium Chloride Oral Tablet 20 MEQ PO (08:34)
[2023-01-17] MEDS: MethylPREDNISolone DosePak 4 MG BOX PO ×4 (08:34→21:31)
--- NOTE | 2023-01-17 12:35 | NURSING ---
Dr. Smith updates on pt's BP 98/54 this am. Received N.O. for Parameters for Toprol XL hold if BP <100. Order read back.
[2023-01-17] MEDS: Warfarin 0.5 MG Tablet PO (16:55)
[2023-01-17] MEDS: Albuterol 2.5 MG/3 ML VIAL.NEB. INHALATION (20:10)
--- NOTE | 2023-01-17 23:00 | NURSING ---
Addendum entered by Reji Almeida 01/18/23 06:22: patient bladder scanned at 370cc, offered straight cath, patient declines at this time stating wants to attempt to avoid again in a little bit. Patient educated that bladder scan will need to be repeated at that time and straight cath may be necessary. Patient verbalized understanding, no distress observed or reported. Call light in reach. Original Note: Patient attempt to void x3 without effect. Bladder scan result 458cc, patient agrees to straight cath with aseptic technique maintained per policy, 425cc clear yellow urine observed, patient tolerated well. No distress observed or reported. Call light in reach.
[2023-01-18] VITALS (7 sets, daily range): BP systolic 93–113; BP diastolic 52–64; PULSE 57–89; RESP 16–18; TEMP 36.6; O2SAT 92–97
[2023-01-18] MEDS: Doxycycline 100 MG CAPSULE PO ×2 (06:02→17:02)
[2023-01-18] MEDS: Furosemide 40 MG Tablet PO (06:03)
[2023-01-18] MEDS: Magnesium Chloride 64 MG Delay Rel.Tablet 128 MG PO (06:03)
[2023-01-18] MEDS: Acetaminophen 500 MG Tablet 1000 MG PO ×3 (06:03→19:54)
[2023-01-18] MEDS: Menthol/Lanolin/Calamine/Znox 113 GM Tube 1 APPLIC TOPICAL ×2 (06:04→17:10)
[2023-01-18 06:44] LABS: Absolute Lymphocyte Count 1.28 X10^3/uL (0.83-4.51); Absolute Neutrophil Count 11.8 X10^3/uL (2.0-7.7); Basophil# 0.04 X10^3/uL; Basophil% 0.3 % (0-1); Hematocrit 40.6 % (37-47); Hemoglobin 12.2 g/dL (12.0-15.0); Lymphocyte # 1.28 X10^3/ul (0.83-4.51); Lymphocyte % 9.3 % (19-41); Mean Corpuscular Hgb 25.9 pg (27.0-32.0); Mean Corpuscular Volume 86.2 fL (81-99); Monocyte# 0.42 X10^3/uL; Monocyte% 3.1 % (0-10); NRBC Flagged by Analyzer 0 % (0-5); Neutrophil # 11.84 X10^3/uL (2.7-7.7); Neutrophil % 86.4 % (47-70); Platelet Count 384 K/mm3 (150-450); RBC Distribution Width CV 16.5 % (11.6-14.6); RBC Distribution Width SD 50.5 fl (35.1-43.9); Red Blood Count 4.71 M/mm3 (4.2-5.4); White Blood Count 13.7 K/mm3 (4.4-11.0)
[2023-01-18 07:17] LABS: Anion Gap 9 (5-15); BUN 45 mg/dL (7-18); BUN/Creat Ratio 40.2 RATIO (10-20); Calcium,Total 8.9 mg/dL (8.5-10.1); Chloride 106 mmol/L (98-107); Creatinine, Serum 1.12 mg/dL (0.55-1.02); EST Glomerular Filtration Rate 49 mL/min (>60); Est Glom Filt Rate - Afr Amer 60 mL/min (>60); Estimated Creatinine Clearance 33.65 ml/min; Glucose 173 mg/dL (74-106); Potassium 4.9 mmol/L (3.5-5.1); Sodium Level 139 mmol/L (136-145)
[2023-01-18] MEDS: MethylPREDNISolone DosePak 4 MG BOX PO ×4 (07:39→19:55)
[2023-01-18] MEDS: Ipratropium/Albuterol Sulfate 3 ML AMPUL.NEB INHALATION ×3 (07:40→19:00)
[2023-01-18] MEDS: Potassium Chloride Oral Tablet 20 MEQ PO (07:40)
[2023-01-18] MEDS: Gabapentin 300 MG Capsule PO ×2 (07:43→17:07)
[2023-01-18] MEDS: Ensure Plus High Protein 120 ML LIQUID PO ×3 (07:51→17:08)
[2023-01-18] MEDS: oxyCODONE 5 MG Tablet PO ×3 (09:44→19:53)
[2023-01-18] MEDS: Calcium Carbonate 500 MG Tablet PO (11:49)
[2023-01-18] MEDS: Tuberculin,Purif.prot.deriv. 50 TU/ML Vial 0.1 ML ID (12:02)
[2023-01-18] MEDS: Warfarin 0.5 MG Tablet PO (17:04)
[2023-01-18] MEDS: guaiFENesin Dm 10 ML UDC PO (17:07)
--- NOTE | 2023-01-18 23:42 | NURSING ---
Pt bladder scanned post-void and had 447 cc in bladder. This nurse entered room and told pt she would have to be straight cathed to empty the urine from her bladder. Pt expressed frustration and asked why this was necessary. The nurse educated on urine retention and the risks of not emptying the bladder. Pt still frustrated but allowed this nurse to straight cath her via sterile technique. Pt would like to speak with the doctor regarding why she is now retaining urine. Dr. Curiel is currently consulted for pt. Note left for dayshift to call Veena with an update.
[2023-01-19] MEDS: oxyCODONE 5 MG Tablet PO ×3 (00:33→20:35)
[2023-01-19] MEDS: Acetaminophen 500 MG Tablet 1000 MG PO ×3 (05:12→20:36)
[2023-01-19] MEDS: Menthol/Lanolin/Calamine/Znox 113 GM Tube 1 APPLIC TOPICAL ×2 (05:13→18:09)
[2023-01-19] MEDS: Magnesium Chloride 64 MG Delay Rel.Tablet 128 MG PO (05:13)
[2023-01-19] MEDS: Doxycycline 100 MG CAPSULE PO ×2 (05:13→18:09)
--- NOTE | 2023-01-19 06:03 | NURSING ---
Pt is experiencing some urinary retention. She is very frustrated with having to be straight cathed and wants Veena updated and to see if she could be put on Flomax. Denies having these issues in the past. After voiding 100cc in the bedpan this morning, pt was bladder scanned for 397cc. She was encouraged to get up to the toilet to void and she agreed to but was unable to void. Refused to be straight cathed thinking she may be able to void in a while. States she feels our bladder scanner is broken. This nurse ensured that it was not broken. Upon re-entering the room at 0545, pts brief was soiled and she had been incontinent of urine. Bladder scan repeated for 304cc. Pt insists she wants Veena updated and something done as she cannot tolerate being straight cathed. States I came in here for my leg and you all are messing with my bladder. This nurse validated feelings and ensured pt Veena would be updated.
[2023-01-19 06:15] LABS: Prothrombin Time (Protime)PT. 22.4 SECONDS (11.7-14.9)
[2023-01-19] MEDS: Calcium Carbonate 500 MG Tablet PO ×2 (06:15→20:35)
[2023-01-19 06:19] VITALS: PULSE 65; RESP 16; O2SAT 93
[2023-01-19] MEDS: Ipratropium/Albuterol Sulfate 3 ML AMPUL.NEB INHALATION ×2 (06:19→19:05)
[2023-01-19 06:34] LABS: Anion Gap 7 (5-15); BUN 39 mg/dL (7-18); BUN/Creat Ratio 43.9 RATIO (10-20); Calcium,Total 9.3 mg/dL (8.5-10.1); Chloride 102 mmol/L (98-107); Creatinine, Serum 0.89 mg/dL (0.55-1.02); EST Glomerular Filtration Rate 64 mL/min (>60); Est Glom Filt Rate - Afr Amer 78 mL/min (>60); Estimated Creatinine Clearance 42.34 ml/min; Glucose 119 mg/dL (74-106); Potassium 5.4 mmol/L (3.5-5.1); Sodium Level 136 mmol/L (136-145)
[2023-01-19 07:35] VITALS: BP 116/55; PULSE 80
[2023-01-19] MEDS: Ensure Plus High Protein 120 ML LIQUID PO ×3 (07:35→18:09)
[2023-01-19] MEDS: MethylPREDNISolone DosePak 4 MG BOX PO ×3 (07:35→20:36)
[2023-01-19] MEDS: Metoprolol(XL)Succ 100 MG Tablet PO (07:35)
[2023-01-19] MEDS: Gabapentin 300 MG Capsule PO ×2 (07:35→18:09)
--- NOTE | 2023-01-19 08:23 | NURSING ---
CALLED DR. DELCID AND TALKED TO HER ABOUT PT RETAINING URINE OVER WEEKEND AND STRAIGHT CATH AND PT REFUSING ANY MORE. ORDERED FLOMAX 0.4 AT BEDTIME AND CONTINUE BLADDER SCAN. AND STATED SHE WOULD BE IN TO SEE PT. RN AWARE
[2023-01-19] MEDS: Sodium Polystyrene Sulfonate 15 GM/60 ML UDC 30 GM PO (08:41)
--- NOTE | 2023-01-19 08:51 | NURSING ---
CALLED PT DAUGHTER AND UPDATED HER ON MEDS ETC. ON PT. DAUGHTER THANKED THIS NURSE AND STATED THAT HER BROTHER WILL BE GOING TO THE APPOINTMENT WITH PT.
--- NOTE | 2023-01-19 09:18 | NURSING ---
Rolled Ham Lacer Note; MDS for 01/17/2023 Complete
[2023-01-19 12:37] VITALS: PULSE 79; RESP 20; O2SAT 94
--- NOTE | 2023-01-19 12:57 | NURSING ---
Pt left with physicians transport via wheelchair to Dr. serrano appointment at 1250, son is accompanying
[2023-01-19 14:00] VITALS: BP 148/81; PULSE 80; RESP 24; TEMP 36.3; O2SAT 94
--- NOTE | 2023-01-19 14:46 | NURSING ---
Addendum entered by Misha Schmidt 01/19/23 15:02: Pt's son stated they did a f/u Hip X-ray, removed nazia, and pt is allowed to shower Original Note: Pt returned to room at 1443, no paperwork was provided to pt.
--- NOTE | 2023-01-19 16:06 | NURSING ---
Kayexalate administered this AM, positive results
--- NOTE | 2023-01-19 17:17 | NURSING ---
Dr. Curiel in to see Pt, Flomax will be started at HS. As long as Pt is voiding without discomfort no need to straight cath unless pt complains. Continue bladder scans after voiding. Will be in to see Pt on Thursday to follow up.
[2023-01-19] MEDS: Warfarin 0.5 MG Tablet PO (18:08)
[2023-01-19] MEDS: Tamsulosin HCl 0.4 MG Capsule PO (18:09)
[2023-01-19 19:05] VITALS: PULSE 81; RESP 16
--- NOTE | 2023-01-20 02:24 | NURSING ---
Pt ambulated to the bathroom at this time. She was able to void. She was bladder scanned for 458cc when she got back into bed. Pt encouraged to allow this nurse to straight cath her and pt replied Oh no! She adamantly refuses to be straight cathed at this time despite education. Pt encouraged to notify staff if she starts to feel pressure or discomfort and at that time she would need to have the urine drained from her bladder. Pt acknowledged education and stated understanding. RN aware.
--- NOTE | 2023-01-20 04:10 | PCM.PN.GU ---
Subjective Subjective Late note for yesterday visit. On last week her PVR was ok, and then over the weekend she worsened, requiring catheterization at least 3 times, residuals about 400cc. She began to refuse straight cath. She was seen by ortho yesterday and nazia removed. She is minimally ambulatory. Was given lactulose for elevated potassium yesterday with severe diarrhea. She reports feeling like she is emptying without issues. There is some incontinence. She agrees to trial of Flomax and understands that if not voiding well, we will need to reconsider sahu placement or straight catheterization. Objective Data Objective Data Vital Signs: Vital Signs Temp Pulse Resp BP Pulse Ox O2 Del Method O2 Flow Rate 97.4 F L 81 16 148/81 H 94 Room Air 3 01/19/23 14:00 01/19/23 19:05 01/19/23 19:05 01/19/23 14:00 01/19/23 14:00 01/19/23 14:00 01/19/23 06:19 Oxygen Flow Rate (L/min) 3 Oxygen Delivery Method Room Air Weight: 64.501 kg Body Mass Index (BMI) 23.6 Intake & Output: Intake and Output for Last 24 Hours 01/18/23 01/19/23 01/20/23 23:59 23:59 23:59 Intake Total 840 / 840 899 / 899 Output Total 100 / 100 Balance 840 / 840 799 / 799 Lab / Micro Data Result Diagrams: 01/18/23 06:34 01/19/23 05:34 Labs: Laboratory Results - last 24 hr 01/19/23 05:34: PT 22.4 H, INR 2.0 01/19/23 05:34: Sodium 136, Potassium 5.4 H, Chloride 102, Carbon Dioxide 27.0, Anion Gap 7, BUN 39 H, Creatinine 0.89, Estim Creat Clear Calc 42.34, Est GFR (MDRD) Af Amer 78, Est GFR (MDRD) Non-Af 64, BUN/Creatinine Ratio 43.9 H, Glucose 119 H, Calcium 9.3 Micro: Microbiology 01/12/23 08:05 Urine, Catheterized Urine Culture - Final Culture exhibits no growth. 01/13/23 20:10 Mucosa - Nasopharyngeal Respiratory Panel (PCR) - Final 01/12/23 09:20 Stool Stool Occult Blood (HUSSEIN) - Final Occult Blood Positive 01/12/23 08:24 Nasal Secretion SARS-CoV-2 Antigen (Rapid) - Final 01/12/23 06:36 Nasal Secretion SARS-CoV-2 Antigen (Rapid) - Final 01/10/23 16:30 Nasal Secretion SARS-CoV-2 Antigen (Rapid) - Final Physical Exam Narrative Sitting in chair at bedside. Const alert, oriented x3 and no apparent distress HEENT normocephalic and head/scalp atraumatic Eyes General Eye: normal appearance of both eyes Neck supple General: normal visual inspection and trachea midline Chest inspection of chest normal Resp normal respiratory effort, normal air movement and no retractions Cardio regular rate GI soft to palpation and non-tender Skin no rashes or lesions noted Neuro oriented x3 and CN's II-XII intact bilaterally Psych mental status grossly normal Assessment & Plan Assessment/Plan (1) Urinary retention: PLAN: starting flomax tonight daily PVR, and if still elevated by Thursday or , would recommend straight cath TID and if she refuses, consider sahu replacement. will follow up
[2023-01-20] MEDS: Magnesium Chloride 64 MG Delay Rel.Tablet 128 MG PO (04:45)
[2023-01-20] MEDS: Doxycycline 100 MG CAPSULE PO ×2 (04:45→18:07)
[2023-01-20] MEDS: Acetaminophen 500 MG Tablet 1000 MG PO ×3 (04:45→21:51)
[2023-01-20 04:46] VITALS: BP 142/79; PULSE 79
[2023-01-20] MEDS: Metoprolol(XL)Succ 100 MG Tablet PO (04:46)
[2023-01-20] MEDS: oxyCODONE 5 MG Tablet PO ×2 (04:48→11:26)
[2023-01-20 06:22] LABS: Anion Gap 7 (5-15); BUN 33 mg/dL (7-18); BUN/Creat Ratio 39.2 RATIO (10-20); Calcium,Total 8.9 mg/dL (8.5-10.1); Chloride 101 mmol/L (98-107); Creatinine, Serum 0.84 mg/dL (0.55-1.02); EST Glomerular Filtration Rate 69 mL/min (>60); Est Glom Filt Rate - Afr Amer 83 mL/min (>60); Estimated Creatinine Clearance 44.86 ml/min; Glucose 105 mg/dL (74-106); Potassium 4.4 mmol/L (3.5-5.1); Sodium Level 138 mmol/L (136-145)
[2023-01-20] MEDS: Lisinopril 20 MG Tablet PO (06:53)
[2023-01-20] MEDS: Menthol/Lanolin/Calamine/Znox 113 GM Tube 1 APPLIC TOPICAL ×2 (06:54→18:10)
[2023-01-20 06:57] VITALS: PULSE 82; RESP 16; O2SAT 92
[2023-01-20] MEDS: Ipratropium/Albuterol Sulfate 3 ML AMPUL.NEB INHALATION (06:57)
[2023-01-20] MEDS: MethylPREDNISolone DosePak 4 MG BOX PO ×2 (08:34→21:52)
[2023-01-20] MEDS: Gabapentin 300 MG Capsule PO ×2 (08:35→18:07)
[2023-01-20] MEDS: Ensure Plus High Protein 120 ML LIQUID PO ×3 (08:35→18:08)
[2023-01-20 11:20] VITALS: BMI 22.4
--- NOTE | 2023-01-20 12:53 | NURSING ---
PT ASKED THIS NURSE TO CALL AND LET DR. LEROY KNOW THAT SHE WAS IN HOSPITAL AND TO CANCEL APPOINTMENT AND FEELS OK AND WILL CALL HIS OFFICE WHEN SHE NEEDS HER SHOTS. THIS NURSE CALLED AND UPDATED DR. LEROY OFFICE.
[2023-01-20 13:41] VITALS: BP 103/60; PULSE 72; RESP 16; TEMP 36.3; O2SAT 94
--- NOTE | 2023-01-20 13:41 | CPS ---
Pt does not want aerosols. She wants to take her own inhaler but she is unsure of the name because she hasn't been taking it long. She'll have someone bring it in and RN will send to Pharmacy. RT will leave a note for Dr Smtih.
--- NOTE | 2023-01-20 16:30 | CASEMGMT ---
Social Work SW attempted to complete advanced directives but pt had a visitor and asked this worker to return. Luz Chiang, KITTY ROBERTSONW
[2023-01-20] MEDS: Warfarin 0.5 MG Tablet PO (18:07)
[2023-01-20] MEDS: Tamsulosin HCl 0.4 MG Capsule PO (18:07)
[2023-01-20 19:48] VITALS: BP 106/62; PULSE 79; RESP 18; TEMP 36.7; O2SAT 95
[2023-01-20 19:49] VITALS: PULSE 79; RESP 18; O2SAT 95
[2023-01-21] MEDS: Doxycycline 100 MG CAPSULE PO ×2 (06:11→17:45)
[2023-01-21] MEDS: Lisinopril 20 MG Tablet PO (06:11)
[2023-01-21] MEDS: Menthol/Lanolin/Calamine/Znox 113 GM Tube 1 APPLIC TOPICAL ×2 (06:11→17:50)
[2023-01-21] MEDS: Magnesium Chloride 64 MG Delay Rel.Tablet 128 MG PO (06:11)
[2023-01-21] MEDS: Acetaminophen 500 MG Tablet 1000 MG PO ×3 (06:11→22:09)
[2023-01-21] MEDS: MethylPREDNISolone DosePak 4 MG BOX PO (07:58)
[2023-01-21] MEDS: Gabapentin 300 MG Capsule PO ×2 (07:58→17:49)
[2023-01-21] MEDS: Ensure Plus High Protein 120 ML LIQUID PO ×3 (07:58→17:48)
[2023-01-21 08:00] VITALS: PULSE 86
[2023-01-21] MEDS: Metoprolol(XL)Succ 100 MG Tablet PO (08:00)
[2023-01-21] MEDS: oxyCODONE 5 MG Tablet 10 MG PO ×2 (10:27→20:26)
[2023-01-21 14:00] VITALS: BP 140/76; PULSE 82; RESP 96; TEMP 36.4
--- NOTE | 2023-01-21 16:40 | CASEMGMT ---
Social Work SW met with pt and son Tirso to discuss discharge plan. Pt lives alone with children living in different cities ([place] and [place]). SW reviewed pt progress in therapy and current need for Min to Max assist with daily tasks. SW explained insurance update is today and continued stay is not guaranteed. Pt son states he is talking to someone about a respite stay after TCU and prior to returning home but he does not have a facility of choice. Son stating he needs to investigate this possibility more and is considering facilities in [place], [place] and [place]. SW encouraged pt and son to discuss alternative discharge plan and notify SW as soon as possible. Son and pt express understanding. Later in day Insurance provided continued stay with [facility] 01/26. VM left with pt son Tirso and updated and again encouraged to notify SW of alternative D/C plan. SW met with pt and updated on [facility] 01/26. Pt stating that if she is not able to return home at time of discharge she will go to her daughters home in [place]. SW will continue to follow for discharge planning. HIRAL Pope
[2023-01-21] MEDS: Tamsulosin HCl 0.4 MG Capsule PO (17:45)
[2023-01-21] MEDS: Warfarin 0.5 MG Tablet PO (17:46)
[2023-01-22] MEDS: oxyCODONE 5 MG Tablet 10 MG PO ×3 (03:31→20:11)
[2023-01-22] MEDS: Doxycycline 100 MG CAPSULE PO ×2 (05:27→17:35)
[2023-01-22] MEDS: Magnesium Chloride 64 MG Delay Rel.Tablet 128 MG PO (05:27)
[2023-01-22] MEDS: Acetaminophen 500 MG Tablet 1000 MG PO ×3 (05:27→20:12)
[2023-01-22] MEDS: Menthol/Lanolin/Calamine/Znox 113 GM Tube 1 APPLIC TOPICAL ×2 (05:29→17:35)
[2023-01-22 05:30] VITALS: BP 96/57; PULSE 80; RESP 16
--- NOTE | 2023-01-22 05:33 | NURSING ---
pt c/o difficulty sleeping, states took melatonin prior at home and it didn't work. Written communication left for Dr. Smith
[2023-01-22 06:25] LABS: International Normalized Ratio 2.4; Prothrombin Time (Protime)PT. 25.9 SECONDS (11.7-14.9)
[2023-01-22 07:25] VITALS: PULSE 88; RESP 18; O2SAT 92
[2023-01-22] MEDS: Ipratropium/Albuterol Sulfate 3 ML AMPUL.NEB INHALATION ×2 (07:25→18:44)
[2023-01-22] MEDS: Gabapentin 300 MG Capsule PO ×2 (08:54→17:37)
[2023-01-22] MEDS: Ensure Plus High Protein 120 ML LIQUID PO ×3 (08:55→17:37)
[2023-01-22 08:58] VITALS: BP 91/57; PULSE 85
--- NOTE | 2023-01-22 09:57 | MDS.RN ---
Information for the mds was obtained from review of the clinical record, interview of resident, staff, and direct observation of resident's care.
[2023-01-22 13:45] VITALS: PULSE 81; RESP 18; O2SAT 95
--- NOTE | 2023-01-22 13:53 | CASEMGMT ---
Social Work Completed advanced directives with pt. Pt named both dtr and son as HCPOA. Original and copy provided to pt. Copy placed on chart. SW inquired about alt. DC plan and [facility] Pt plans on discharging to dtr's house in [place]. SW to follow up with dtr. Luz Chiang, KITTY ROBERTSONW
[2023-01-22 14:00] VITALS: BP 99/55; PULSE 81; RESP 22; TEMP 36.2; O2SAT 95
[2023-01-22] MEDS: Warfarin 0.5 MG Tablet PO (17:34)
[2023-01-22] MEDS: Tamsulosin HCl 0.4 MG Capsule PO (17:35)
[2023-01-22 18:45] VITALS: PULSE 78; RESP 18
[2023-01-22] MEDS: Doxepin Hydrochloride 10 MG Capsule PO (20:13)
--- NOTE | 2023-01-22 20:17 | NURSING ---
Pt requested meds at this time
--- NOTE | 2023-01-22 22:27 | PCM.PN.GU ---
Subjective Subjective Voiding without complaints. No new concerns. She would prefer to be without sahu. Objective Data Objective Data Vital Signs: Vital Signs Temp Pulse Resp BP Pulse Ox O2 Del Method O2 Flow Rate 97.2 F L 78 18 99/55 L 95 Room Air 2 01/22/23 14:00 01/22/23 18:45 01/22/23 18:45 01/22/23 14:00 01/22/23 14:00 01/22/23 14:00 01/20/23 16:54 Oxygen Flow Rate (L/min) 2 Oxygen Delivery Method Room Air Weight: 61.263 kg Body Mass Index (BMI) 22.4 Intake & Output: Intake and Output for Last 24 Hours 01/20/23 01/21/23 01/22/23 23:59 23:59 23:59 Intake Total 720 / 720 1440 / 1440 780 / 780 Output Total 0 / 0 Balance 720 / 720 1440 / 1440 780 / 780 Lab / Micro Data Result Diagrams: 01/18/23 06:34 01/20/23 05:10 Labs: Laboratory Results - last 24 hr 01/22/23 05:11: PT 25.9 H, INR 2.4 Micro: Microbiology 01/12/23 08:05 Urine, Catheterized Urine Culture - Final Culture exhibits no growth. 01/13/23 20:10 Mucosa - Nasopharyngeal Respiratory Panel (PCR) - Final 01/12/23 09:20 Stool Stool Occult Blood (HUSSEIN) - Final Occult Blood Positive 01/12/23 08:24 Nasal Secretion SARS-CoV-2 Antigen (Rapid) - Final 01/12/23 06:36 Nasal Secretion SARS-CoV-2 Antigen (Rapid) - Final 01/10/23 16:30 Nasal Secretion SARS-CoV-2 Antigen (Rapid) - Final Physical Exam Const alert, oriented x3 and no apparent distress General Appearance: cooperative HEENT normocephalic Chest inspection of chest normal Resp normal respiratory effort Cardio regular rate GI normal to inspection, nondistended, normoactive bowel sounds Narrative: Bladder scan residuals have been between 140 and 300 range Skin no rashes or lesions noted Neuro oriented x3 Psych mental status grossly normal Assessment & Plan Assessment/Plan (1) Urinary retention: PLAN: ok to continue flomax and go without sahu follow up in the office 1-2 weeks after discharge call with questions
[2023-01-23] MEDS: Menthol/Lanolin/Calamine/Znox 113 GM Tube 1 APPLIC TOPICAL ×2 (05:45→17:12)
[2023-01-23] MEDS: Lisinopril 20 MG Tablet PO (05:45)
[2023-01-23] MEDS: Acetaminophen 500 MG Tablet 1000 MG PO ×3 (05:46→21:33)
[2023-01-23] MEDS: Magnesium Chloride 64 MG Delay Rel.Tablet 128 MG PO (05:46)
[2023-01-23] MEDS: Doxycycline 100 MG CAPSULE PO ×2 (05:46→17:11)
--- NOTE | 2023-01-23 06:07 | NURSING ---
Contin ues to refuses Straight cath states '' I will have to go again soon.
[2023-01-23 07:05] VITALS: O2SAT 93
[2023-01-23 07:53] VITALS: BP 80/46; PULSE 55
[2023-01-23] MEDS: Gabapentin 300 MG Capsule PO ×2 (07:53→17:11)
[2023-01-23 09:08] LABS: Anion Gap 10 (5-15); BUN 37 mg/dL (7-18); BUN/Creat Ratio 38.9 RATIO (10-20); Calcium,Total 8.8 mg/dL (8.5-10.1); Chloride 104 mmol/L (98-107); Creatinine, Serum 0.95 mg/dL (0.55-1.02); EST Glomerular Filtration Rate 60 mL/min (>60); Est Glom Filt Rate - Afr Amer 72 mL/min (>60); Estimated Creatinine Clearance 39.67 ml/min; Glucose 156 mg/dL (74-106); Potassium 4.3 mmol/L (3.5-5.1); Sodium Level 140 mmol/L (136-145)
[2023-01-23] MEDS: oxyCODONE 5 MG Tablet 10 MG PO (09:34)
--- NOTE | 2023-01-23 10:02 | CASEMGMT ---
Social Work SW left detailed message with dtr inquiring about DC plans, briefly mentioning pt cannot be left alone during the day, offered FMLA and therapy training for dtr. Requested return call. KITTY SoteloW
[2023-01-23] MEDS: Ensure Plus High Protein 120 ML LIQUID PO (13:10)
[2023-01-23 13:53] VITALS: BP 103/52; PULSE 81; RESP 20; TEMP 36.9; O2SAT 97
[2023-01-23] MEDS: oxyCODONE 5 MG Tablet PO ×2 (14:15→23:04)
[2023-01-23] MEDS: Warfarin 0.5 MG Tablet PO (17:11)
[2023-01-23] MEDS: Tamsulosin HCl 0.4 MG Capsule PO (17:11)
[2023-01-23 18:47] VITALS: PULSE 84; RESP 16
[2023-01-23] MEDS: Ipratropium/Albuterol Sulfate 3 ML AMPUL.NEB INHALATION (18:47)
[2023-01-23 21:00] VITALS: BP 110/60
[2023-01-23 21:11] VITALS: PULSE 68; RESP 16
[2023-01-23] MEDS: Doxepin Hydrochloride 10 MG Capsule PO (21:33)
[2023-01-24] MEDS: Menthol/Lanolin/Calamine/Znox 113 GM Tube 1 APPLIC TOPICAL ×2 (04:49→17:10)
[2023-01-24] MEDS: Acetaminophen 500 MG Tablet 1000 MG PO ×3 (04:50→21:36)
[2023-01-24] MEDS: Magnesium Chloride 64 MG Delay Rel.Tablet 128 MG PO (04:50)
--- NOTE | 2023-01-24 04:53 | NURSING ---
A&Ox3, able to voice needs. Bladder scan performed, result 428, patient declines straight cath despite education, states i will try to go again later. No distress observed or reported. No c/o pain. Call light in reach. Resps even and unlabored.
[2023-01-24 06:45] VITALS: PULSE 80; RESP 16; O2SAT 90
[2023-01-24] MEDS: Ipratropium/Albuterol Sulfate 3 ML AMPUL.NEB INHALATION (06:45)
[2023-01-24 08:23] VITALS: BP 98/59; PULSE 64
[2023-01-24] MEDS: Gabapentin 300 MG Capsule PO ×2 (08:23→17:16)
[2023-01-24] MEDS: Ensure Plus High Protein 120 ML LIQUID PO ×3 (08:23→17:10)
[2023-01-24 08:46] VITALS: PULSE 65; RESP 16; O2SAT 95
[2023-01-24] MEDS: oxyCODONE 5 MG Tablet PO ×2 (12:03→23:04)
[2023-01-24 13:53] VITALS: BP 101/51; PULSE 84; RESP 20; TEMP 36.4; O2SAT 96
[2023-01-24] MEDS: Tamsulosin HCl 0.4 MG Capsule PO (17:09)
[2023-01-24] MEDS: Midodrine HCl 5 MG Tablet PO (17:10)
[2023-01-24] MEDS: Warfarin 0.5 MG Tablet PO (17:10)
[2023-01-24] MEDS: Doxepin Hydrochloride 10 MG Capsule PO (21:36)
[2023-01-24 21:39] VITALS: BP 115/64; PULSE 79
[2023-01-25] MEDS: Acetaminophen 500 MG Tablet 1000 MG PO ×3 (05:03→21:38)
[2023-01-25] MEDS: Magnesium Chloride 64 MG Delay Rel.Tablet 128 MG PO (05:03)
[2023-01-25] MEDS: Menthol/Lanolin/Calamine/Znox 113 GM Tube 1 APPLIC TOPICAL (05:04)
[2023-01-25 06:03] LABS: Absolute Lymphocyte Count 1.92 X10^3/uL (0.83-4.51); Absolute Neutrophil Count 5.5 X10^3/uL (2.0-7.7); Basophil# 0.09 X10^3/uL; Eosinophil# 0.35 X10^3/uL; Hematocrit 39.9 % (37-47); Hemoglobin 12.1 g/dL (12.0-15.0); Lymphocyte # 1.92 X10^3/ul (0.83-4.51); Lymphocyte % 22.2 % (19-41); Mean Corp Hgb Conc 30.3 g/dL (32-36); Mean Corpuscular Hgb 25.6 pg (27.0-32.0); Mean Corpuscular Volume 84.5 fL (81-99); Mean Platelet Vol. 9.9 fl (6.2-12.0); Monocyte# 0.69 X10^3/uL; NRBC Flagged by Analyzer 0 % (0-5); Neutrophil # 5.47 X10^3/uL (2.7-7.7); Neutrophil % 63.3 % (47-70); Platelet Count 350 K/mm3 (150-450); RBC Distribution Width CV 17.6 % (11.6-14.6); Red Blood Count 4.72 M/mm3 (4.2-5.4); White Blood Count 8.7 K/mm3 (4.4-11.0)
[2023-01-25 06:47] LABS: Anion Gap 2 (5-15); BUN 27 mg/dL (7-18); BUN/Creat Ratio 32.6 RATIO (10-20); Calcium,Total 8.7 mg/dL (8.5-10.1); Chloride 104 mmol/L (98-107); Creatinine, Serum 0.83 mg/dL (0.55-1.02); EST Glomerular Filtration Rate 70 mL/min (>60); Est Glom Filt Rate - Afr Amer 84 mL/min (>60); Glucose 89 mg/dL (74-106); Potassium 4.6 mmol/L (3.5-5.1); Sodium Level 135 mmol/L (136-145)
[2023-01-25 07:38] VITALS: O2SAT 96
[2023-01-25 08:23] VITALS: BP 113/98; PULSE 88
[2023-01-25] MEDS: Midodrine HCl 5 MG Tablet PO ×3 (08:23→17:17)
[2023-01-25] MEDS: Ensure Plus High Protein 120 ML LIQUID PO ×3 (08:23→17:17)
[2023-01-25] MEDS: Metoprolol(XL)Succ 100 MG Tablet PO (08:23)
[2023-01-25] MEDS: Gabapentin 300 MG Capsule PO ×2 (09:30→17:17)
[2023-01-25 13:25] VITALS: BP 104/52; PULSE 79; RESP 97; TEMP 36.4
[2023-01-25] MEDS: Tamsulosin HCl 0.4 MG Capsule PO (17:17)
[2023-01-25] MEDS: Warfarin 0.5 MG Tablet PO (17:22)
[2023-01-25 17:27] VITALS: BP 120/80
[2023-01-25 19:45] VITALS: PULSE 80; RESP 18; O2SAT 96
[2023-01-25 19:51] VITALS: BP 114/70; PULSE 80; RESP 18; TEMP 36.6; O2SAT 96
[2023-01-25] MEDS: oxyCODONE 5 MG Tablet PO (21:37)
[2023-01-25] MEDS: Doxepin Hydrochloride 10 MG Capsule PO (21:37)
--- NOTE | 2023-01-25 22:26 | NURSING ---
Continues with residual in bladder, no c/o pain/discomfort.
[2023-01-26] MEDS: Magnesium Chloride 64 MG Delay Rel.Tablet 128 MG PO (04:50)
[2023-01-26] MEDS: Menthol/Lanolin/Calamine/Znox 113 GM Tube 1 APPLIC TOPICAL ×2 (04:50→17:33)
[2023-01-26] MEDS: Acetaminophen 500 MG Tablet 1000 MG PO ×3 (04:51→20:40)
--- NOTE | 2023-01-26 06:14 | NURSING ---
States she will attempt to go after awhile
[2023-01-26 06:24] LABS: International Normalized Ratio 3.3; Prothrombin Time (Protime)PT. 33.5 SECONDS (11.7-14.9)
[2023-01-26 07:55] VITALS: PULSE 80
[2023-01-26] MEDS: Ensure Plus High Protein 120 ML LIQUID PO ×3 (07:55→17:32)
[2023-01-26] MEDS: Metoprolol(XL)Succ 100 MG Tablet PO (07:55)
[2023-01-26] MEDS: Gabapentin 300 MG Capsule PO ×2 (07:55→17:29)
[2023-01-26] MEDS: Midodrine HCl 5 MG Tablet PO ×3 (07:55→17:29)
--- NOTE | 2023-01-26 09:35 | CASEMGMT ---
Addendum entered by Luz Chiang 01/26/23 15:28: Insurance issued LCD 01/29, DC 01/30. SW left another message with dtr. Contacted son. Spoke to him and updated on DC. Son stated dtr will be visiting pt this evening after work. Son stated pt told him, pt was not doing well today and son is concerned about medical stability to DC. SW educated to appeal rights and provided phone number of [employer]. Son will speak with sister this evening before deciding to appeal. SW to still coordinate skilled HHC for dtr's house, in case pt does DC home. SW to confirm with therapy, there are no DME needs. Dtr to transport. SW spoke with [facility] and they have an office that services [facility] but different company name of [facility]. Emailed referral to the [facility] for facilitation for PT/OT/SN/DIAZ. Plan: DC to dtr's house 01/30, [facility] PT/OT/SN/DIAZ Addendum entered by Luz Chiang 01/26/23 10:13: Received call back from son. Son stated sister applied for FMLA to bring pt home with her for 25/05 care. Son stated sister plans to work through the week and requesting DC 01/31, if insurance does issue DC date. SW educated to a 2 day notice when insurance issues DC date. Son stated he was actively text messaging sister. SW suggested sister contact this worker directly to get questions answered, as no return call has been made to this worker. Son agreed. Original Note: Social Work SW has not received call back from dtr. Left another message with dtr on this date. SW contacted son to inquire about DC plans - left message with son. Will await call back. KITTY Sotelo
[2023-01-26 13:19] VITALS: BP 120/69; PULSE 80; RESP 16; TEMP 36.2; O2SAT 97
--- NOTE | 2023-01-26 14:14 | NURSING ---
This nurse was in patients room, and stated that I would be back in to bladder scan her, she replied, No, forget about the bladder i dont want it done. Whats the point im leaving on thursday. Patient encouraged to let this nurse scan but still refused, patient has been refusing straight caths recently as well.
--- NOTE | 2023-01-26 15:40 | NURSING ---
Patient updated that staff member tested positive for Covid. VM left w/ dtr updating her of positive staff member.
[2023-01-26] MEDS: Furosemide 40 MG Tablet PO (17:29)
[2023-01-26] MEDS: Tamsulosin HCl 0.4 MG Capsule PO (17:29)
[2023-01-26] MEDS: Lisinopril 20 MG Tablet PO (17:29)
--- NOTE | 2023-01-26 18:29 | PCM.DC.SUM ---
Providers Date of Admission: 01/10/23 Primary Care Physician: Dr. Cheyanne Holt MD Consultations 01/12/23 19:19 Consult: Urology Routine Consulting Provider: Peg Curiel Reason for Consult: Urine retention EMERGENT Consult: No MD Notified: Yes Date Notified: 01/12/23 Time Notified: 19:20 Method of Notification: voicemail Reason For Visit: R HIP FRACTURE Diagnosis Discharge Diagnosis (1) Urinary retention: Status: Acute Code(s): R33.9 - Retention of urine, unspecified Plan 83 year old female with below past medical history hospitalized for right hip fracture, underwent right hip intramedullary nail fixation 01/06/[address] Longoria, compllicated by mild hypoxia, right ankle pain, admitted to TCU with debility, here for rehabilitation, strengthening, prior to discharge home alone. Debility - PT/OT. Pain - Tylenol 1000mg q8, Oxycodone 5mg q4h prn pain (6-10). Bowel - senna/colace 2 tablets bid, Dulcolax 10mg pr x 1 prn, MOM 30ml po x 1 prn. Adult immunization - Administer pneumonia vaccine, covid19 vaccine, flu vaccine as appropriate. DVT prophylaxis - Not necessary, on warfarin. Chronic systolic congestive heart failure - Toprol XL 100mg daily, Furosemide 40mg daily. Neuropathic pain - Gabapentin 300mg bidcm. Hypertension - Toprol XL 100mg daily, Lisinopril 20mg daily. Hypomagnesemia - Magnesium chloride 128mg daily. Hypokalemia - KCL 20meq daily. Atrial fibrillation - Toprol XL 100mg daily, warfarin 1.5mg 5 days/week, 3mg 2 days/week, monitor INR. Hypotension - Normal saline 2 liters IV bolus, then 75cc per hour. Acute kidney injury - Cr 1.58, order renal ultrasound, post void residual. Leucocytosis - Order Chest X-ray, Urinalysis, Urine culture. Medications at Discharge Home Medications magnesium oxide 400 mg PO DAILY supplement 04/06/19 gabapentin 100 mg capsule 300 mg PO BID NERVE PAIN 10/04/22 warfarin 1 mg tablet See Rx Instructions .Route .COMPLEX blood thinner 10/05/22 lisinopril 20 mg tablet 20 mg PO DAILY blood pressure #90 tabs 10/16/22 warfarin 3 mg tablet 3 mg PO .COMPLEX blood thinner #45 tabs 11/04/22 furosemide 40 mg tablet (Lasix) 40 mg PO DAILY swelling 01/10/23 metoprolol succinate 100 mg tablet,extended release 24 hr 100 mg PO DAILY Blood pressure 01/10/23 acetaminophen 500 mg tablet 1,000 mg PO Q8 #0 tabs 01/26/23 furosemide 40 mg tablet 40 mg PO DAILY #0 tabs 01/26/23 hydrocodone-acetaminophen 5-325mg 5mg-325mg 1 tab PO Q6H PRN PRN Pain Score 1-10 7 days #28 tabs 01/26/23 lisinopril 20 mg tablet 20 mg PO DAILY #0 tabs 01/26/23 midodrine 5 mg tablet 5 mg PO TIDCM 30 days #90 tabs 01/26/23 tamsulosin 0.4 mg capsule 0.4 mg PO DAILY@1730 30 days #30 caps 01/26/23 Hospital Course Operations - (Right hip intramedullary nail fixation.) Procedures None Summary of Care Provided Minutes Spent on Discharge: 35 Hospital Course: 83 year old female with below past medical history hospitalized for right hip fracture, underwent right hip intramedullary nail fixation 01/06/[address] Longoria, compllicated by mild hypoxia, right ankle pain, admitted to TCU with debility, here for rehabilitation, strengthening, prior to discharge home alone. On TCU, resident had hypotension, Lisinopril and Furosemide were held, and she was started on Midodrine 10mg tid, Midodrine was tapered off but had to be restarted at Midodrine 5mg tid due to persistent hypotension. Hypotension thought secondary to oxycodone, which was later changed to [place]. Hopefully, her Midodrine can be tapered off as outpatient. Lisinopril, Furosemide restarted due to resident feeling short of breath. She was also treated for post intubation bronchitis with antibiotics, steroids, aerosols, bronchitis resolved. Further, resident had acute kidney injury secondary to urinary retention, Dr. Curiel consulted, and retention resolved, acute kidney injury resolved. Discharge to daughter's house 01/30/2023, [facility] PT/OT/SN/DIAZ. Physical Exam Const alert General Appearance: cooperative HEENT normocephalic Eyes PERRL and EOMs intact bilaterally Neck supple, no JVD and no carotid bruits Resp normal respiratory effort, normal air movement and clear to auscultation bilaterally Cardio regular rate and regular rhythm GI normal to inspection, nondistended, normoactive bowel sounds, non-tender and non-distended Extremity normal capillary refill General Extremity: Negative for edema Skin no rashes or lesions noted General Skin Exam: no breakdown Psych affect normal Appearance: appropriate Weight / BMI Weight Weight: 61.263 kg Body Mass Index (BMI) 22.4 ABG / Lab / Microbiology Data Result Diagrams: 01/25/23 05:15 01/25/23 05:15 Laboratory: Laboratory Results - last 24 hr 01/26/23 05:13: PT 33.5 H, INR 3.3 Microbiology: Microbiology 01/12/23 08:05 Urine, Catheterized Urine Culture - Final Culture exhibits no growth. 01/13/23 20:10 Mucosa - Nasopharyngeal Respiratory Panel (PCR) - Final 01/12/23 09:20 Stool Stool Occult Blood (HUSSEIN) - Final Occult Blood Positive 01/12/23 08:24 Nasal Secretion SARS-CoV-2 Antigen (Rapid) - Final 01/12/23 06:36 Nasal Secretion SARS-CoV-2 Antigen (Rapid) - Final 01/10/23 16:30 Nasal Secretion SARS-CoV-2 Antigen (Rapid) - Final D/C Instructions Discharge Diet: No restrictions Discharge Activity: Return to Normal Activity, May Shower and Use Walker Weight Bearing Status: Weight bearing as tolerated Call your doctor if you observe: Fever of 101 or Higher, Inability to urinate, Inability to have a bowel movement, Shortness of breath, Dizziness, Fainting spells, Swelling in the ankles, Chest pain and Uncontrolled pain Additional Instructions: Discharge to daughter's house 01/30/2023, [facility] PT/OT/SN/DIAZ. Please Follow Up With: Jamie Longoria DO When: As scheduled. Meaningful Use Info Meaningful Use Diagnoses (Choose all that apply): None applicable Discharge Plan Admission Admit Date/Time: 01/10/23 16:00 Primary Reason for Your Visit: Debility. Attending Provider: Can Smith Chi Primary Care Provider: Cheyanne Holt Consulting Providers: Peg Curiel Instructions Additional Instructions / Restrictions: Discharge to daughter's house 01/30/2023, [facility] PT/OT/SN/DIAZ. Discharge Orders/Prescriptions Prescriptions: New furosemide 40 mg Tablet 40 mg PO DAILY Qty: 0 0RF hydrocodone-acetaminophen 5-325 mg Tablet 1 tab PO Q6H PRN PRN (Reason: Pain Score 1-10) 7 Days Qty: 28 0RF lisinopril 20 mg Tablet 20 mg PO DAILY Qty: 0 0RF midodrine 5 mg Tablet 5 mg PO TIDCM 30 Days Qty: 90 0RF acetaminophen 500 mg Tablet 1,000 mg PO Q8 Qty: 0 0RF tamsulosin 0.4 mg Capsule 0.4 mg PO DAILY@1730 30 Days Qty: 30 0RF Continued gabapentin 100 mg capsule 300 mg PO BID warfarin 1 mg tablet See Rx Instructions .ROUTE .COMPLEX Protocol: Dose Management Condition: Thursday Dose/Route: 1.5 mg Instruction: 0.5 x 3 mg tablets Condition: Thursday Dose/Route: 1.5 mg Instruction: 0.5 x 3 mg tablets Condition: Thursday Dose/Route: 1.5 mg Instruction: 0.5 x 3 mg tablets Condition: Thursday Dose/Route: 3 mg Instruction: 1 x 3 mg tablet Condition: Dose/Route: 3 mg Instruction: 1 x 3 mg tablet Condition: Thursday Dose/Route: 1.5 mg Instruction: 0.5 x 3 mg tablets Condition: Thursday Dose/Route: 1.5 mg Instruction: 0.5 x 3 mg tablets Protocol Text: Adjustment Start Date: 01/01/23 INR Value: 2.2 INR Date: 01/01/23 Recheck Date: 01/08/23 Rx Instructions: 1.5 mg orally ;3mg orally Thursday and , 1.5 the remaining days of the week furosemide [Lasix] 40 mg tablet 40 mg PO DAILY metoprolol succinate 100 mg tablet extended release 24 hr 100 mg PO DAILY lisinopril 20 mg tablet 20 mg PO DAILY Qty: 90 4RF warfarin 3 mg tablet 3 mg PO .COMPLEX Qty: 45 3RF Protocol: Dose Management Condition: Thursday Dose/Route: 1.5 mg Instruction: 0.5 x 3 mg tablets Condition: Thursday Dose/Route: 1.5 mg Instruction: 0.5 x 3 mg tablets Condition: Thursday Dose/Route: 1.5 mg Instruction: 0.5 x 3 mg tablets Condition: Thursday Dose/Route: 3 mg Instruction: 1 x 3 mg tablet Condition: Dose/Route: 3 mg Instruction: 1 x 3 mg tablet Condition: Thursday Dose/Route: 1.5 mg Instruction: 0.5 x 3 mg tablets Condition: Thursday Dose/Route: 1.5 mg Instruction: 0.5 x 3 mg tablets Protocol Text: Adjustment Start Date: 01/01/23 INR Value: 2.2 INR Date: 01/01/23 Recheck Date: 01/08/23 Rx Instructions: 3mg orally Thursday and , 1.5 the remaining days of the week Discontinued oxycodone 5 mg tablet 5 mg PO Q6H PRN (Reason: pain) 3 Days Qty: 12 0RF potassium chloride 20 mEq tablet extended release 20 meq PO DAILY No Action magnesium oxide 400 mg magnesium tablet 400 mg PO DAILY Referrals / Follow Up: Cheyanne Holt MD [Primary Care Provider] - Disposition Disposition (needs filled in before D/C Order can be placed): Home Health Service
[2023-01-26] MEDS: Ipratropium/Albuterol Sulfate 3 ML AMPUL.NEB INHALATION (19:24)
[2023-01-26 19:25] VITALS: PULSE 85; RESP 16
[2023-01-26] MEDS: Doxepin Hydrochloride 10 MG Capsule PO (20:40)
[2023-01-27] VITALS (7 sets, daily range): BP systolic 58–95; BP diastolic 40–58; PULSE 80–96; RESP 21; TEMP 36.9; O2SAT 93–95; BMI 22.6
[2023-01-27] MEDS: Furosemide 40 MG Tablet PO (04:26)
[2023-01-27] MEDS: Lisinopril 20 MG Tablet PO (04:26)
[2023-01-27] MEDS: Magnesium Chloride 64 MG Delay Rel.Tablet 128 MG PO (04:27)
[2023-01-27] MEDS: Acetaminophen 500 MG Tablet 1000 MG PO ×3 (04:27→20:24)
[2023-01-27] MEDS: Menthol/Lanolin/Calamine/Znox 113 GM Tube 1 APPLIC TOPICAL ×2 (04:30→17:05)
--- NOTE | 2023-01-27 07:00 | CPS ---
talk to patient. Pt has been refusing her treatments and does not take them at home. She said she will call if she needs a treatment.
[2023-01-27] MEDS: Ensure Plus High Protein 120 ML LIQUID PO ×3 (08:52→17:10)
[2023-01-27] MEDS: Gabapentin 300 MG Capsule PO ×2 (08:56→17:10)
[2023-01-27] MEDS: Midodrine HCl 5 MG Tablet PO (09:00)
--- NOTE | 2023-01-27 09:53 | CASEMGMT ---
Social Work SW was present at nurse's station and received update from SHAKE PACKER and Dr. Smith on the floor about pt. spoke with pt about needing to increase oral fluid intake as BP is low and pt is currently dehydrated. pt stated she was not wanting to drink fluids because she did not want to have her bladder scanned and/or get straight cathed. ordered IV fluids. SW received call shortly after from dtr inquiring about [employer] appeal phone number again to file appeal. SW provided [employer] phone number. Dtr stated she spoke with pt this AM and pt stated she is not doing well. Dtr expressed concern with pt discharging home before medically stable. SW educated to above information. Dtr appreciative of information and was not aware pt was not wanting to drink fluids. Dtr still plans on filing appeal. Dtr requesting 3-in-1 commode through insurance and dtr to purchase hip kit. SW educated to referral to [facility]. Dtr appreciative. Sent [place] [facility] for B[facility]. Luz Chiang, DRAPERY AND UPHOLSTERY MEASURER LEAD PASTOR
[2023-01-27] MEDS: 0.9% Normal Saline 1,000 ML 999 ML IV (10:21)
--- NOTE | 2023-01-27 10:25 | NURSING ---
B/p taken manually 64\40 Dr Smith called. New order for normal saline 1L IV bolus. Dr. Smith came to unit to talk with patient.
[2023-01-27] MEDS: Midodrine HCl 5 MG Tablet 10 MG PO ×3 (12:03→17:10)
--- NOTE | 2023-01-27 12:06 | NURSING ---
BOLUS DONE. RECHECKED BP. 78/50 RT ARM,SITTING. CALLED NEW ORDER FOR MIDODRINE 10 MG X 1 AND BLADDER SCAN WAS 177 PRE VOID.
--- NOTE | 2023-01-27 16:05 | CASEMGMT ---
Addendum entered by Luz Chiang 01/28/23 15:57: Received return call from dtr. Dtr confirms DC plan is home with her and HHC with BSC. Addendum entered by Luz Chiang 01/28/23 15:07: Received fax from [facility] - pt lost appeal. SW left message with dtr Addendum entered by Luz Chiang 01/28/23 15:01: SW contacted [facility] via phone. Rep stated outcome is still pending at this time. SW spoke with pt to inquire about family training. Pt stated physically she is moving well but still needs assitance with toileting tasks, that dtr is unsure of. SW encouraged for dtr/son to contact this worker if there is a change in DC plans. BIMS () and PHQ-9 (07/29) completed for MDS assessment. sent script for BSC to [facility] via [employer] Addendum entered by Luz Chiang 01/28/23 08:36: Correction to the SW checked [employer] website for appeal update. Outcome notifications are pending. SW to await notification from [facility]. Original Note: Social Work [facility] appeal filed and medical records sent. Will await outcome. KITTY Sotelo
[2023-01-27] MEDS: Tamsulosin HCl 0.4 MG Capsule PO (17:11)
[2023-01-27] MEDS: Doxepin Hydrochloride 10 MG Capsule PO (20:24)
[2023-01-28] MEDS: Acetaminophen 500 MG Tablet 1000 MG PO ×3 (04:56→20:12)
[2023-01-28] MEDS: Magnesium Chloride 64 MG Delay Rel.Tablet 128 MG PO (04:57)
[2023-01-28 04:59] VITALS: BP 89/55; PULSE 80
[2023-01-28] MEDS: Menthol/Lanolin/Calamine/Znox 113 GM Tube 1 APPLIC TOPICAL ×2 (04:59→18:34)
[2023-01-28] MEDS: Midodrine HCl 5 MG Tablet 10 MG PO ×3 (07:53→18:34)
[2023-01-28] MEDS: Ensure Plus High Protein 120 ML LIQUID PO ×2 (07:53→18:34)
[2023-01-28] MEDS: Furosemide 40 MG Tablet PO (07:53)
[2023-01-28] MEDS: Gabapentin 300 MG Capsule PO ×2 (07:53→18:33)
[2023-01-28] MEDS: Lisinopril 20 MG Tablet PO (07:53)
[2023-01-28 09:00] VITALS: BP 114/63; PULSE 83
[2023-01-28 09:36] VITALS: BP 90/56; PULSE 80
[2023-01-28 09:53] VITALS: PULSE 80; RESP 16; O2SAT 94
[2023-01-28 11:00] VITALS: BP 90/56; PULSE 80
[2023-01-28] MEDS: HYDROcodone Bitartrate/Apap 5/325 Tablet PO (12:11)
[2023-01-28 14:00] VITALS: BP 100/58; PULSE 80; RESP 22; TEMP 36.4; O2SAT 95
[2023-01-28] MEDS: Tamsulosin HCl 0.4 MG Capsule PO (18:34)
--- NOTE | 2023-01-28 18:50 | RAD_ITS ---
STUDY: X-RAY - ABDOMEN/PELVIS REASON FOR EXAM: Female, 83 years old. Diarrhea TECHNIQUE: Single AP view of the abdomen / pelvis. COMPARISON: None. FINDINGS: There is an abundance of fecal material throughout the colon. Multiple gallstones. Normal soft tissue structures. There are diffuse degenerative changes of the visualized lumbar spine. Prior right hip pain for intertrochanteric fracture. 1 cm rounded sclerotic focus in the left sacrum. This most likely represents a small bone island. RAD/Abdomen Single View IMPRESSION: Large amount of fecal material is seen in the colon. Electronically Signed: Bryn Capellan MD at 8:40 EDT ,
[2023-01-28] MEDS: Doxepin Hydrochloride 10 MG Capsule PO (20:13)
[2023-01-29 05:56] LABS: International Normalized Ratio 2.2; Prothrombin Time (Protime)PT. 24.5 SECONDS (11.7-14.9)
[2023-01-29] MEDS: Magnesium Chloride 64 MG Delay Rel.Tablet 128 MG PO (06:22)
[2023-01-29] MEDS: Furosemide 40 MG Tablet PO (06:22)
[2023-01-29] MEDS: Acetaminophen 500 MG Tablet 1000 MG PO ×3 (06:22→20:24)
[2023-01-29] MEDS: Lisinopril 20 MG Tablet PO (06:23)
[2023-01-29 06:29] VITALS: BP 98/64; PULSE 83; RESP 17
--- NOTE | 2023-01-29 06:42 | NURSING ---
Refused 6am bladder scan and denied discomfort.
[2023-01-29] MEDS: Ensure Plus High Protein 120 ML LIQUID PO ×3 (07:46→18:01)
[2023-01-29] MEDS: Midodrine HCl 5 MG Tablet 10 MG PO ×3 (07:47→18:02)
[2023-01-29] MEDS: Gabapentin 300 MG Capsule PO ×2 (07:48→18:01)
[2023-01-29 07:56] VITALS: BP 106/66
[2023-01-29 07:57] VITALS: BP 106/66; PULSE 77
[2023-01-29] MEDS: Metoprolol(XL)Succ 100 MG Tablet PO (07:57)
[2023-01-29 10:00] VITALS: PULSE 77; RESP 16; O2SAT 91
[2023-01-29] MEDS: HYDROcodone Bitartrate/Apap 5/325 Tablet PO ×2 (10:38→20:22)
--- NOTE | 2023-01-29 12:35 | MDS.RN ---
Pain interview completed for ANDREZ 01/30/23.
[2023-01-29 13:26] VITALS: BP 101/64; PULSE 81; RESP 16; TEMP 36.3; O2SAT 96
[2023-01-29] MEDS: Tamsulosin HCl 0.4 MG Capsule PO (18:01)
[2023-01-29] MEDS: Menthol/Lanolin/Calamine/Znox 113 GM Tube 1 APPLIC TOPICAL (18:03)
[2023-01-29] MEDS: Doxepin Hydrochloride 10 MG Capsule PO (20:23)
--- NOTE | 2023-01-29 22:18 | NURSING ---
Pt states she leaves tomorrow does not matter.
[2023-01-30] MEDS: Menthol/Lanolin/Calamine/Znox 113 GM Tube 1 APPLIC TOPICAL (04:48)
[2023-01-30] MEDS: Magnesium Chloride 64 MG Delay Rel.Tablet 128 MG PO (04:49)
[2023-01-30] MEDS: Lisinopril 20 MG Tablet PO (04:49)
[2023-01-30] MEDS: Furosemide 40 MG Tablet PO (04:50)
[2023-01-30] MEDS: Acetaminophen 500 MG Tablet 1000 MG PO ×2 (06:09→13:29)
--- NOTE | 2023-01-30 06:21 | NURSING ---
Pt does not want scanned as she is D/C'ing today
[2023-01-30 07:43] VITALS: RESP 18
[2023-01-30] MEDS: Ensure Plus High Protein 120 ML LIQUID PO ×2 (07:44→16:30)
[2023-01-30] MEDS: Midodrine HCl 5 MG Tablet 10 MG PO ×3 (07:44→16:27)
[2023-01-30] MEDS: Gabapentin 300 MG Capsule PO ×2 (07:44→16:30)
[2023-01-30 07:49] VITALS: BP 94/59
[2023-01-30 10:00] VITALS: PULSE 81; RESP 16; O2SAT 97
[2023-01-30] MEDS: Calcium Carbonate 500 MG Tablet PO (12:15)
[2023-01-30] MEDS: HYDROcodone Bitartrate/Apap 5/325 Tablet PO (13:00)
[2023-01-30] MEDS: Tamsulosin HCl 0.4 MG Capsule PO (16:27)
[2023-01-30 18:02] VITALS: BP 113/69; PULSE 79; RESP 16; TEMP 36.4; O2SAT 97
== END 2023-01-30 17:45 | disposition home health service (06) | DRG 560 ==
PROVIDERS: Admitting Provider Family Medicine Geriatric Medicine; PCP Internal Medicine; Visit Provider Family Medicine Geriatric Medicine
DX: S72.001D Fracture of unspecified part of neck of right femur, subsequent encounter for closed fracture with routine healing (principal); N17.9 Acute kidney failure, unspecified; I42.1 Obstructive hypertrophic cardiomyopathy; I50.42 Chronic combined systolic (congestive) and diastolic (congestive) heart failure; I48.19 Other persistent atrial fibrillation; I11.0 Hypertensive heart disease with heart failure; G62.9 Polyneuropathy, unspecified; E78.5 Hyperlipidemia, unspecified; E83.42 Hypomagnesemia; J44.9 Chronic obstructive pulmonary disease, unspecified; E87.6 Hypokalemia; W19.XXXD Unspecified fall, subsequent encounter; Z79.01 Long term (current) use of 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; Z87.891 Personal history of nicotine dependence; Z79.899 Other long term (current) drug therapy; Z99.81 Dependence on supplemental oxygen; R33.9 Retention of urine, unspecified
CPT/HCPCS: 36415; 71046; 74018; 76770; 80048; 81001; 82274; 85014; 85018; 85025; 85610; 87086; 87426; 87633; 87811; 94640; 94668; 97110; 97116; 97162; 97166; 97530; 97535; 97802; J7030; J7040; A4216

== ENCOUNTER 2023-03-26 10:50 | Emergency (ER) | payer MEDICARE, SELFPAY ==
[2023-03-26 10:51] VITALS: BP 144/82; PULSE 59; RESP 16; TEMP 36.1; O2SAT 94; BMI 22.6
--- NOTE | 2023-03-26 11:07 | ED.VIS.DYS ---
HPI History of Present Illness Chief Complaint: Shortness of Breath Informant: patient Onset/Context/Timing Onset: Yesterday Context: gradual Timing: Continuous Quality: Positive for Dyspnea on exertion Worsened by: Exertion Relieved by: Rest Associated Symptoms cough; Negative for rhinorrhea, post nasal drip, ear pain, fever, sore throat, chills or sweats Chest Pain: Positive for Intermittent (Mild) and Aching Narrative Narrative: Patient presents with shortness of breath that began yesterday evening. Patient states has been constant. Patient states it came on gradually. Patient states it is worse with any exertion. Patient states it is better with rest. Patient does admit to a cough but denies any sputum production. Patient denies any fevers or chills. Patient denies any sore throat or rhinorrhea. Patient does admit to some intermittent pain in her chest. Patient describes it as a mild ache. Patient states she also had some pain in her left arm last night. Patient states this has resolved as well. 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) LBBB (left bundle branch block) Long QT interval Non-Hodgkin lymphoma Nonrheumatic mitral (valve) insufficiency On home oxygen therapy Paroxysmal atrial fibrillation Paroxysmal atrial fibrillation Persistent atrial fibrillation Polyp, sigmoid colon Presence of permanent cardiac pacemaker (~12/10/21) Sick sinus syndrome Urinary retention Home Medications magnesium oxide 400 mg PO DAILY supplement 04/06/19 [History Last Taken 01/03/23] gabapentin 100 mg capsule 300 mg PO BID NERVE PAIN 10/04/22 [History Last Taken 01/04/23] metoprolol succinate 100 mg tablet,extended release 24 hr 100 mg PO DAILY Blood pressure 01/10/23 [History Last Taken Unknown] acetaminophen 500 mg tablet 1,000 mg PO Q8 #0 tabs 01/26/23 [Rx Last Taken Unknown] furosemide 40 mg tablet 40 mg PO DAILY #0 tabs 01/26/23 [Rx Last Taken Unknown] hydrocodone-acetaminophen 5-325mg 5mg-325mg 1 tab PO Q6H PRN PRN Pain Score 1-10 7 days #28 tabs 01/26/23 [Rx Last Taken Unknown] lisinopril 10 mg tablet 10 mg PO DAILY 02/18/23 [History Last Taken Unknown] warfarin 1 mg tablet 1.5 mg PO DAILY 03/26/23 [History Last Taken Unknown] Allergy/AdvReac Type Severity Reaction Status Date / Time allopurinol Allergy Rash Verified 03/26/23 10:53 tramadol AdvReac dizzy Verified 03/26/23 10:53 Family History Father Heart disease Hypertension Mother No cardiac disease Surgical History H/O cardiac radiofrequency ablation History of bladder surgery History of cardioversion (~04/25/20) History of left heart catheterization (LHC) (~11/30/17) History of mitral valve repair (~07/30/18) History of ventricular septal myectomy (~07/30/18) Social History household members: none Smoking Status: Former smoker pack-years: 58 how long ago did patient quit smokin years ago alcohol intake: never substance use type: does not use caffeine: No what type of physical activity do you participate in: walking ROS ROS ED Constitutional Constitutional ED: Denies chills or fever(s) Eyes Eyes: Denies blurry vision or change in vision ENT ENT ED: Denies rhinorrhea or sore throat Cardiovascular Cardiovascular: Reports chest pain; Denies palpitations Respiratory/Chest Respiratory/Chest: Reports dyspnea; Denies cough Gastrointestinal Gastrointestinal: Denies nausea or vomiting Genitourinary Genitourinary ED: Denies dysuria or hematuria Musculoskeletal Musculoskeletal: Denies back pain or neck pain Integumentary Denies abscess or rash Neurologic Neurologic: Denies headache(s) or weakness Allergic/Immunologic Allergic/Immunologic ED: Denies mouth swelling or urticaria EXAM Physical Exam Const Vital Signs: 03/26/23 10:51 03/26/23 11:15 03/26/23 12:46 Temperature 97.0 F L Temperature Source Temporal Pulse Rate 59 L 72 Respiratory Rate 16 18 Respiratory Effort Normal Non-Labored Blood Pressure 144/82 H Blood Pressure Mean 102 Pulse Ox 94 93 Oxygen Delivery Method Room Air Room Air 03/26/23 14:06 Temperature Temperature Source Pulse Rate 60 Respiratory Rate 18 Respiratory Effort Blood Pressure Blood Pressure Mean Pulse Ox 92 Oxygen Delivery Method Room Air Positive well nourished and well developed General Appearance ED: well developed HEENT Reports moist mucous membranes Neck supple and no JVD Resp normal respiratory effort Auscultation: diminished lung sounds diffuse Cardio regular rate and regular rhythm GI normal to inspection, nondistended, normoactive bowel sounds and non-tender Palpation: soft Extremity normal to inspection General Extremety ED: Negative for edema or tenderness General Extremity: Negative for edema Neuro oriented x3, CN's II-XII intact bilaterally and no sensory deficits noted Sensorium / Orientation: alert Motor Exam: strength 5/5 throughout Psych mental status grossly normal Skin no rashes or lesions noted MDM MDM MDM Narrative Medical decision making narrative: Differential diagnosis includes pulmonary embolism, cardiac dysrhythmia, cardiac ischemia, pneumonia, pneumothorax, and anxiety. EKG will be obtained to assess for cardiac dysrhythmia and cardiac ischemia. CTA of the chest will be obtained to assess for pulmonary embolism. CBC will be obtained to assess for leukocytosis and anemia. Basic metabolic profile will be obtained to assess for electrolyte abnormality and renal function. High-sensitivity troponin will be obtained to assess for cardiac ischemia. Lab Data Attestation: I reviewed the patient's lab results. Lab results narrative: CBC was reviewed and was within normal limits. Basic metabolic profile was reviewed and was essentially within normal limits. PT with INR and PTT were reviewed. Pro time was 18.8 seconds and INR is 1.6. PTT was slightly low at 21.3. Labs: Laboratory Results - last 24 hr 03/26/23 03/26/23 03/26/23 11:10 11:10 11:10 WBC Cancelled Corrected WBC Cancelled RBC Cancelled Hgb Cancelled Hct Cancelled MCV Cancelled MCH Cancelled MCHC Cancelled RDW Std Deviation Cancelled RDW Coeff of Neelima Cancelled Plt Count Cancelled MPV Cancelled Immature Gran % (Auto) Cancelled Neut % (Auto) Cancelled Lymph % (Auto) Cancelled Drew % (Auto) Cancelled Eos % (Auto) Cancelled Baso % (Auto) Cancelled Absolute Neuts (auto) Cancelled Absolute Lymphs (auto) Cancelled Total Counted Cancelled Neutrophils % (Manual) Cancelled Band Neutrophils % Cancelled Lymphocytes % (Manual) Cancelled Monocytes % (Manual) Cancelled Eosinophils % (Manual) Cancelled Basophils % (Manual) Cancelled Metamyelocytes % Cancelled Myelocytes % Cancelled Promyelocytes % Cancelled Blast Cells % Cancelled Plasma Cell % (Manual) Cancelled Other Cells % Cancelled Nucleated RBC % Cancelled Nucleated RBCs/100 WBC Cancelled Differential Comment Cancelled Diff Path Review Cancelled Hypersegmented Neuts Cancelled Atypical Lymphocytes Cancelled Reactive Lymphocytes Cancelled Smudge Cells Cancelled Toxic Granulation Cancelled Toxic Vacuolation Cancelled Dohle Bodies Cancelled Osvaldo Rods Cancelled Platelet Estimate Cancelled Plt Morphology Comment Cancelled RBC Morphology Cancelled Polychromasia Cancelled Hypochromasia Cancelled Poikilocytosis Cancelled Basophilic Stippling Cancelled Anisocytosis Cancelled Microcytosis Cancelled Macrocytosis Cancelled Spherocytes Cancelled Sickle Cells Cancelled Target Cells Cancelled Tear Drop Cells Cancelled Ovalocytes Cancelled Stomatocytes Cancelled [place] Bodies Cancelled Xander Cells Cancelled Bite Cells Cancelled Crenated Cell Cancelled Acanthocytes (Spur) Cancelled Rouleaux Cancelled Schistocytes Cancelled PT 18.8 H INR 1.6 APTT 21.3 L Sodium Cancelled Potassium Cancelled Chloride Cancelled Carbon Dioxide Cancelled Anion Gap Cancelled BUN Cancelled Creatinine Cancelled Estim Creat Clear Calc Cancelled Est GFR (MDRD) Af Amer Cancelled Est GFR (MDRD) Non-Af Cancelled BUN/Creatinine Ratio Cancelled Glucose Cancelled Calcium Cancelled Troponin I High Sens Cancelled 03/26/23 03/26/23 11:45 13:05 WBC 6.2 Corrected WBC RBC 5.41 H Hgb 14.4 Hct 46.5 MCV 86.0 MCH 26.6 L MCHC 31.0 L RDW Std Deviation 49.2 H RDW Coeff of Neelima 15.8 H Plt Count 206 MPV 10.8 Immature Gran % (Auto) 0.300 Neut % (Auto) 65.9 Lymph % (Auto) 23.1 Drew % (Auto) 8.1 Eos % (Auto) 1.6 Baso % (Auto) 1.0 Absolute Neuts (auto) 4.1 Absolute Lymphs (auto) 1.43 Total Counted Neutrophils % (Manual) Band Neutrophils % Lymphocytes % (Manual) Monocytes % (Manual) Eosinophils % (Manual) Basophils % (Manual) Metamyelocytes % Myelocytes % Promyelocytes % Blast Cells % Plasma Cell % (Manual) Other Cells % Nucleated RBC % 0 Nucleated RBCs/100 WBC Differential Comment Diff Path Review Hypersegmented Neuts Atypical Lymphocytes Reactive Lymphocytes Smudge Cells Toxic Granulation Toxic Vacuolation Dohle Bodies Osvaldo Rods Platelet Estimate Plt Morphology Comment RBC Morphology Polychromasia Hypochromasia Poikilocytosis Basophilic Stippling Anisocytosis Microcytosis Macrocytosis Spherocytes Sickle Cells Target Cells Tear Drop Cells Ovalocytes Stomatocytes [place] Bodies Xander Cells Bite Cells Crenated Cell Acanthocytes (Spur) Rouleaux Schistocytes PT INR APTT Sodium 144 Potassium 4.4 Chloride 111 H Carbon Dioxide 29.0 Anion Gap 4 L BUN 16 Creatinine 0.78 Estim Creat Clear Calc 39.20 Est GFR (MDRD) Af Amer 90 Est GFR (MDRD) Non-Af 74 BUN/Creatinine Ratio 20.4 H Glucose 108 H Calcium 9.0 Troponin I High Sens 41 Radiography Diagnostic Testing: Clinical Impression(s) from Imaging Studies Chest CTA 03/26/23 11:13 IMPRESSION: No demonstrated pulmonary embolism or arterial dissection. There are no acute findings. Electronically Signed: Shankar Thomas MD at 14:31 EDT Reading Location ID and State: [facility] / [place] , Service support , CTA of the chest was obtained. There is no evidence of pulmonary embolism or arterial dissection. There is no pneumothorax. There no evidence of pneumonia. This was interpreted by the radiologist and was also independently reviewed by myself. EKG Initial EKG: Attestation: I personally reviewed and interpreted this EKG as follows: Interpretation: Atrial Flutter, Paced, LBBB and Non-Specific ST Changes Comments: EKG was obtained. There is underlying atrial flutter rhythm with a ventricular paced rhythm as well. Rate was 74. QRS interval was slightly prolonged at 160 ms. QTc interval was prolonged at 592 ms. There is left axis deviation -48. There are nonspecific ST-T wave changes. Prior EKG tracings: available for review Prior: Unchanged (01/07/2023) Treatment and Re-Evaluation :: Patient was advised of her findings. Patient was instructed to follow-up with her primary care physician in 5 to 7 days. Patient understood and was agreeable with the plan. All questions were answered. Discharge Plan Triage Chief Complaint: Shortness of Breath ED Provider: Eduardo Fuentes Dx/Rx/DC Orders Clinical Impression: Dyspnea, Right-sided chest pain Instructions: ED Dyspnea Prescriptions: No Action magnesium oxide 400 mg magnesium tablet 400 mg PO DAILY gabapentin 100 mg capsule 300 mg PO BID metoprolol succinate 100 mg tablet extended release 24 hr 100 mg PO DAILY furosemide 40 mg Tablet 40 mg PO DAILY Qty: 0 0RF hydrocodone-acetaminophen 5-325 mg Tablet 1 tab PO Q6H PRN PRN (Reason: Pain Score 1-10) 7 Days Qty: 28 0RF acetaminophen 500 mg Tablet 1,000 mg PO Q8 Qty: 0 0RF warfarin 1 mg Tablet 1.5 mg PO DAILY lisinopril 10 mg tablet 10 mg PO DAILY Primary Care Provider: Cheyanne Holt Referrals: Cheyanne Holt MD [Primary Care Provider] - 5-7 Days Disposition Disposition: Home, Self Care
[2023-03-26 11:13] VITALS: BMI 22.4
--- NOTE | 2023-03-26 11:13 | CT_ITS ---
STUDY: CTA Chest WO/W Contrast Injection 03/26/2023 2:17 PM REASON FOR EXAM: Female, 83 years old. Pulmonary embolism TECHNIQUE: The examination was performed with the intravenous administration of IV 100mL Isovue-370 contrast material. Post-processing of the angiographic images was performed, with axial imaging and 3D reconstruction. MIPS images were obtained. Individualized dose optimization techniques were used for this CT. COMPARISON: 05.11.18. FINDINGS: There are degenerative changes of the shoulders. There is no pneumothorax. There is no demonstrated pleural abnormality. There are scattered blebs and bullae. This can be seen in pulmonary emphysema. There is a left sided pacemaker batterypack. There are calcifications of the coronary arteries. There is borderline cardiomegaly. Normal mediastinum. Normal hilar regions. Normal pulmonary arteries. There is atherosclerotic calcification of the aortic arch with tortuosity and elongation of the aortic arch and descending thoracic aorta. There are multi-level degenerative changes of the thoracic spine. Gallstones. 3 6 mm stable hypodensity in the right lobe of the liver. Stable 17 mm left adrenal nodule. ACR White Paper guidelines (Jolie et al. JACR 2017; 14(8):7496-6153) suggest no follow-up is necessary. CT/CTA Chest W/WO Contrast IMPRESSION: No demonstrated pulmonary embolism or arterial dissection. There are no acute findings. Electronically Signed: Shankar Thomas MD at 14:31 EDT ,
--- NOTE | 2023-03-26 11:13 | EKG12_ITS ---
Test Reason : Blood Pressure : / mmHG Vent. Rate : 074 BPM Atrial Rate : 381 BPM P-R Int : 000 ms QRS Dur : 066 ms QT Int : 534 ms P-R-T Axes : -83 -48 109 degrees QTc Int : 592 ms Atrial flutter with variable A-V block with frequent ventricular-paced complexes Confirmed by CLAUDIA FORTUNE, KACIE ([id number]), supervising film or videotape editor NAYELI NEGRON ([id number]) on 03/27/2023 1:24:51 PM Referred By: BERTHA Confirmed By:KACIE TAYLOR MD
[2023-03-26] MEDS: Aspirin 81 MG TAB.CHEW 324 MG PO (11:36)
[2023-03-26 11:38] LABS: International Normalized Ratio 1.6; Prothrombin Time (Protime)PT. 18.8 SECONDS (11.7-14.9)
[2023-03-26 11:39] LABS: Partial Thromboplast Time 21.3 Seconds (24.1-36.2)
--- NOTE | 2023-03-26 11:40 | NURSING ---
LAB NEEDS A NEW CHEMISTRY, THEY WILL REPRINT LABELS
[2023-03-26 11:56] LABS: Absolute Lymphocyte Count 1.43 X10^3/uL (0.83-4.51); Absolute Neutrophil Count 4.1 X10^3/uL (2.0-7.7); Basophil# 0.06 X10^3/uL; Eosinophils% 1.6 % (0-5); Hematocrit 46.5 % (37-47); Hemoglobin 14.4 g/dL (12.0-15.0); Lymphocyte # 1.43 X10^3/ul (0.83-4.51); Lymphocyte % 23.1 % (19-41); Mean Corpuscular Hgb 26.6 pg (27.0-32.0); Mean Platelet Vol. 10.8 fl (6.2-12.0); Monocyte% 8.1 % (0-10); NRBC Flagged by Analyzer 0 % (0-5); Neutrophil # 4.09 X10^3/uL (2.7-7.7); Neutrophil % 65.9 % (47-70); Platelet Count 206 K/mm3 (150-450); RBC Distribution Width CV 15.8 % (11.6-14.6); RBC Distribution Width SD 49.2 fl (35.1-43.9); Red Blood Count 5.41 M/mm3 (4.2-5.4); White Blood Count 6.2 K/mm3 (4.4-11.0)
--- NOTE | 2023-03-26 12:20 | ED.RN ---
called lab to inform of lab draw for hemolyzed
[2023-03-26 12:46] VITALS: PULSE 72; RESP 18; O2SAT 93
[2023-03-26 13:42] LABS: Anion Gap 4 (5-15); BUN 16 mg/dL (7-18); BUN/Creat Ratio 20.4 RATIO (10-20); Chloride 111 mmol/L (98-107); Creatinine, Serum 0.78 mg/dL (0.55-1.02); EST Glomerular Filtration Rate 74 mL/min (>60); Est Glom Filt Rate - Afr Amer 90 mL/min (>60); Glucose 108 mg/dL (74-106); Potassium 4.4 mmol/L (3.5-5.1); Sodium Level 144 mmol/L (136-145); Troponin-I HS 41 pg/mL (3.0-54.0)
[2023-03-26 14:06] VITALS: PULSE 60; RESP 18; O2SAT 92
[2023-03-26 15:32] VITALS: BP 134/78; PULSE 87; RESP 18; O2SAT 97
== END 2023-03-26 15:33 | disposition home or self-care (01) ==
PROVIDERS: Emergency Provider Emergency Medicine; PCP Internal Medicine; Visit Provider Emergency Medicine
DX: R06.00 Dyspnea, unspecified (principal); R07.9 Chest pain, unspecified; J44.9 Chronic obstructive pulmonary disease, unspecified; I11.0 Hypertensive heart disease with heart failure; I42.1 Obstructive hypertrophic cardiomyopathy; I50.32 Chronic diastolic (congestive) heart failure; I48.0 Paroxysmal atrial fibrillation; E78.5 Hyperlipidemia, unspecified; Z79.01 Long term (current) use of 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; Z79.899 Other long term (current) drug therapy; Z87.891 Personal history of nicotine dependence; Z95.0 Presence of cardiac pacemaker
CPT/HCPCS: 36415; 71275; 80048; 84484; 85025; 85610; 85730; 93005; 99285; J7040; Q9967; A4216

== ENCOUNTER 2023-04-29 13:18 | Outpatient (RCR) | payer MEDICARE, SELFPAY ==
[2023-01-30 23:22] VITALS: BMI 23.5
[2023-04-29 13:28] LABS: INR Fingerstick 2.6; Prothrombin Time Fingerstick 28.5 SEC (11.7-14.9)
== END 2023-04-29 18:00 | disposition home or self-care (01) ==
LOC: LAB 13:18
PROVIDERS: Family Provider Internal Medicine; PCP Internal Medicine; Referring Provider Internal Medicine Cardiovascular Disease; Visit Provider Internal Medicine Cardiovascular Disease
DX: I48.19 Other persistent atrial fibrillation (principal); Z79.899 Other long term (current) drug therapy
CPT/HCPCS: 36416; 85610

== ENCOUNTER → 2023-05-27 | Outpatient (CLI) | payer MEDICARE, SELFPAY ==
[2023-05-27 11:06] LABS: International Normalized Ratio 2.2; Prothrombin Time (Protime)PT. 24.9 SECONDS (11.7-14.9)
== END | disposition home or self-care (01) ==
LOC: LAB 08:12
PROVIDERS: PCP Internal Medicine; Referring Provider Internal Medicine Cardiovascular Disease; Visit Provider Internal Medicine Cardiovascular Disease
DX: I48.91 Unspecified atrial fibrillation (principal); Z79.01 Long term (current) use of 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
CPT/HCPCS: 36415; 85610

== ENCOUNTER → 2023-06-24 | Outpatient (CLI) | payer MEDICARE, SELFPAY ==
[2023-06-24 12:12] LABS: International Normalized Ratio 2.2; Prothrombin Time (Protime)PT. 24.4 SECONDS (11.7-14.9)
== END | disposition home or self-care (01) ==
LOC: LAB 08:40
PROVIDERS: PCP Internal Medicine; Referring Provider Internal Medicine Cardiovascular Disease; Visit Provider Internal Medicine Cardiovascular Disease
DX: I48.91 Unspecified atrial fibrillation (principal); Z79.01 Long term (current) use of 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
CPT/HCPCS: 36415; 85610

== ENCOUNTER 2023-06-26 11:00 | Observation (INO) | payer MEDICARE, SELFPAY ==
[2023-06-26] VITALS (7 sets, daily range): BP systolic 148–186; BP diastolic 72–91; PULSE 59–84; RESP 16–20; TEMP 35.6–36.8; O2SAT 94–97; BMI 21.4
--- NOTE | 2023-06-26 11:32 | NURSING ---
STROKE ALERT CALLED
--- NOTE | 2023-06-26 11:33 | CT_ITS ---
INDICATION: Neuro deficit, acute, stroke suspected EXAMINATION: CT BRAIN WITH CONTRAST TECHNIQUE: Noncontrast axial images were obtained of the brain. Subsequently, routine carotid CT angiogram protocol was performed without and with IV contrast. In addition, images were obtained of the [place]. NASCET criteria using the distal ICAs for comparison were used for evaluation of stenoses. 3D reconstructions were reviewed. A radiation dose optimization technique was used for this scan. IV Contrast dosage and agent: COMPARISON: FINDINGS: --CT BRAIN: BRAIN PARENCHYMA: No intra- or extra-axial hemorrhage. No evidence of acute infarct. No intracranial mass or mass effect. There is preservation of the childress/white matter interface. Posterior fossa structures are unremarkable. CSF SPACES: Appropriate for age. No hydrocephalus. Basal cisterns are patent. CALVARIUM, SKULL BASE, PARANASAL SINUSES AND MASTOID AIR CELLS: Clear. No discrete lytic or blastic abnormalities. ASPECTS Score for Acute Strokes: 10 --CTA NECK: AORTIC ARCH AND BRANCHES: There are peripheral calcifications. Normal anatomy, patent. RIGHT CCA: No occlusion, significant stenosis or dissection. RIGHT ICA: No occlusion, significant stenosis or dissection. LEFT CCA: No occlusion, significant stenosis or dissection. LEFT ICA: No occlusion, significant stenosis or dissection. RIGHT VERTEBRAL ARTERY: No occlusion, significant stenosis or dissection. LEFT VERTEBRAL ARTERY: No occlusion, significant stenosis or dissection. NECK SOFT TISSUES: Unremarkable. There are emphysematous changes within the visualized lungs. There is a small focus of consolidation within the left anterior lung. --CTA HEAD: --Anterior circulation: ICAs: No significant stenosis at the intracranial/visualized segments. ACAs: No significant stenosis at the visualized segments. ACOM: Present. MCAs: No significant stenosis at the visualized segments. --Posterior circulation: PCOMs: manager game: No significant stenosis at the visualized segments. BASILAR ARTERY: No significant stenosis. VERTEBRAL ARTERIES: No significant stenosis at the intradural/visualized segments. No evidence of intracranial aneurysm or vascular malformation. CT/STROKE CTA Head AND Neck W/Con IMPRESSION: Atherosclerosis with no associated hemodynamically significant stenosis. Emphysema. N.B. : The above Results were Read Back by Shanell Delarosa MD to Javad Kim MD, and understanding confirmed on 06/26/2023 12:15:28 (ET). Electronically Signed: Shanell Delarosa MD at 12:16 EDT ,
--- NOTE | 2023-06-26 11:33 | CT_ITS ---
We are attempting to reach an attending provider to discuss findings. An addendum with communication details will be sent when the communication is complete. INDICATION: Neuro deficit, acute, stroke suspected EXAMINATION: CT BRAIN - CT Head Stroke Protocol W/O Contrast Injection TECHNIQUE: Multiple axial images were obtained of the head without intravenous contrast. A radiation dose optimization technique was used for this scan. IV Contrast dosage and agent: None. RADIATION DOSAGE (If Supplied By Facility): CTDIvol = ( ) mGy, DLP = ( ) mGycm COMPARISON: Prior study dated: September 13, 2021 FINDINGS: BRAIN PARENCHYMA: No intra- or extra-axial hemorrhage. There are patchy areas of low attenuation within the white matter of the cerebral hemispheres, a nonspecific finding most commonly reflecting small vessel ischemia. No evidence of acute infarct. No intracranial mass or mass effect. There is preservation of the childress/white matter interface. Posterior fossa structures are unremarkable. CSF SPACES: Appropriate for age. No hydrocephalus. Basal cisterns are patent. CALVARIUM, SKULL BASE, PARANASAL SINUSES AND MASTOID AIR CELLS: Clear. No discrete lytic or blastic abnormalities. ORBITS: Both globes, extraocular muscles, optic nerves and retrobulbar fat appear unremarkable. ASPECTS Score for Acute Strokes: 10 CT/STROKE Brain/Head without Cont IMPRESSION: No acute intracranial process. Small vessel ischemia. Electronically Signed: Shanell Delarosa MD at 11:50 EDT ,
--- NOTE | 2023-06-26 11:34 | EX.ED.DYSGE1 ---
HPI History of Present Illness Chief Complaint: Hypertension Detail of Chief Complaint: High blood pressure and dizziness Informant: patient Onset/Context/Timing Onset: Today (Patient had symptoms upon awakening this morning at 0700.) Context: Sudden Onset Timing: Continuous Quality: Difficulty ambulating Location: Posterior circulatory Current Severity: Moderate Maximum Severity: Moderate Worsened by: Nothing Relieved by: Nothing Associated Symptoms Associated Symptoms: Unable to Narrative Narrative: Patient is an 83-year-old woman with history of hypertension, congestive heart, hypertrophic cardiomyopathy, atrial fibrillation on Coumadin, IBS B-cell lymphoma, sick sinus syndrome, non-Hodgkin's lymphoma and bladder cancer who presents because she felt weird this morning. When asked to describe weird she states she is dizzy. When asked to describe dizzy she states she cannot walk. She awoke with symptoms. She went to bed at 0100 without symptoms. She denies headache, visual, ocular auditory symptoms. Denies ringing ears decreased hearing. She denies trouble with speech or swallowing. Denies cardiac or respiratory symptoms. She denies GI symptoms. She denies urologic symptoms. She denies prior history of stroke. She did take her Coumadin dose last evening. Prior similar symptoms: No Recent Illness/Hospitalization: No PFSH PFSH Medical History Anticoagulated on Coumadin Atrial fibrillation Atrial fibrillation and flutter Atrial flutter with rapid ventricular response Bladder cancer Chronic diastolic heart failure COPD (chronic obstructive pulmonary disease) Decreased cardiac ejection fraction Essential hypertension Essential hypertension Fall Former smoker Hyperlipidemia Hypertrophic obstructive cardiomyopathy (HOCM) Hypertrophic obstructive cardiomyopathy (HOCM) LBBB (left bundle branch block) Long QT interval Non-Hodgkin lymphoma Nonrheumatic mitral (valve) insufficiency On home oxygen therapy Paroxysmal atrial fibrillation Paroxysmal atrial fibrillation Persistent atrial fibrillation Polyp, sigmoid colon Presence of permanent cardiac pacemaker (~12/10/21) Sick sinus syndrome Urinary retention Home Medications magnesium oxide 400 mg PO DAILY supplement 04/06/19 [History Last Taken 01/03/23] gabapentin 100 mg capsule 300 mg PO BID NERVE PAIN 10/04/22 [History Last Taken 01/04/23] metoprolol succinate 100 mg tablet,extended release 24 hr 100 mg PO DAILY Blood pressure 01/10/23 [History Last Taken Unknown] acetaminophen 500 mg tablet 1,000 mg (2 x 500 mg) PO Q8 #0 tabs 01/26/23 [Rx Last Taken Unknown] hydrocodone-acetaminophen 5-325mg 5mg-325mg 1 tab PO Q6H PRN PRN Pain Score 1-10 7 days #28 tabs 01/26/23 [Rx Last Taken Unknown] lisinopril 10 mg tablet 10 mg PO DAILY 02/18/23 [History Last Taken Unknown] warfarin 1 mg tablet 1.5 mg PO DAILY #135 tabs 05/14/23 [Rx Last Taken Unknown] warfarin 3 mg tablet 1.5 mg PO DAILY #45 tabs 05/14/23 [Rx Last Taken Unknown] furosemide 40 mg tablet 40 mg PO DAILY #90 tabs 05/18/23 [Rx Last Taken Unknown] Allergy/AdvReac Type Severity Reaction Status Date / Time allopurinol Allergy Rash Verified 06/09/23 14:27 tramadol AdvReac dizzy Verified 06/09/23 14:27 Family History Father Heart disease Hypertension Mother No cardiac disease Surgical History H/O cardiac radiofrequency ablation History of bladder surgery History of cardioversion (~04/25/20) History of left heart catheterization (LHC) (~11/30/17) History of mitral valve repair (~07/30/18) History of ventricular septal myectomy (~07/30/18) Social History household members: none Smoking Status: Former smoker pack-years: 58 how long ago did patient quit smokin years ago alcohol intake: never substance use type: does not use caffeine: No what type of physical activity do you participate in: walking ROS ROS ED Constitutional Constitutional ED: Denies chills, fever(s), subjective, sweats or weight loss Eyes Eyes: Denies blurry vision, change in vision or diplopia ENT ENT ED: Denies ear pain, rhinorrhea or sore throat Cardiovascular Cardiovascular: Denies chest pain or palpitations Respiratory/Chest Respiratory/Chest: Denies cough, dyspnea or dyspnea on exertion Gastrointestinal Gastrointestinal: Denies abdominal pain, nausea or vomiting Genitourinary Genitourinary ED: Denies dysuria, hematuria or urinary frequency Musculoskeletal Musculoskeletal: Denies arthralgias, back pain or myalgias Integumentary Denies rash Neurologic Neurologic: Denies headache(s), paresthesias or weakness Psychiatric Psychiatric: Denies anxiety or depression Endocrine Endocrinology: Denies cold intolerance or heat intolerance Hematologic/Lymphatic Hematologic/Lymphatic: Reports systems reviewed and no addt'l complaints, except as documented EXAM Physical Exam Const Vital Signs: 06/26/23 11:01 06/26/23 11:30 06/26/23 11:44 Temperature 96.1 F L Temperature Source Temporal Pulse Rate 59 L Respiratory Rate 16 Respiratory Effort Normal Respiratory Pattern Normal Blood Pressure 158/78 H Blood Pressure Mean 104 Pulse Ox 95 Oxygen Delivery Method Room Air Room Air 06/26/23 11:47 06/26/23 12:04 Temperature Temperature Source Pulse Rate 60 60 Respiratory Rate 16 20 H Respiratory Effort Respiratory Pattern Blood Pressure 148/85 H 172/82 H Blood Pressure Mean 106 112 Pulse Ox 97 95 Oxygen Delivery Method Room Air Room Air Positive well nourished and well developed General Appearance ED: well developed and NAD; Negative for cyanotic, diaphoretic or pallor HEENT Reports moist mucous membranes HEENT Narrative: Head is normocephalic and atraumatic. Ears normal. Nares patent. Posterior pharynx unremarkable. Eyes PERRL and EOMs intact bilaterally Eyes Narrative: There is no nystagmus. General Eye ED: Negative for pale conjunctiva or scleral icterus Neck no lymphadenopathy, supple and no JVD Chest Wall inspection of chest normal and palpation of chest normal Resp normal respiratory effort and clear to auscultation bilaterally Cardio regular rate and no murmurs Rhythm: abnormal rhythm irregularly irregular GI normal to inspection, nondistended, normoactive bowel sounds, non-tender, non-distended and no masses; Negative for hepatosplenomegaly Back/Spine no CVA tenderness Thoracic Spine / Upper Back: Negative for thoracic spinal tenderness Lumbar Spine / Lower Back: Negative for lumbar spinal tenderness Extremity normal to inspection Neuro oriented x3, CN's II-XII intact bilaterally and no sensory deficits noted Neuro Narrative: Patient has ataxic gait. She is unable to stand without assistance. This is abnormal. There is no dysmetria. There is no Babinski sign right or left. There is no dysmetria. Sensorium / Orientation: alert Motor Exam: strength 5/5 throughout Psych mental status grossly normal Skin no rashes or lesions noted, no wounds and skin turgor normal General Skin Exam: Negative for jaundice or pallor MDM MDM MDM Narrative Medical decision making narrative: Patient is a wake-up stroke, posterior circulatory. She is on Coumadin. She is outside the window for thrombolytics. Will perform CTA to assess for embolic phenomena that may be amenable to clot retrieval. Patient will require admission. Once patient's gait was noted to be ataxic stroke team was called. Lab Data Attestation: I reviewed the patient's lab results. Lab results narrative: White count is slightly elevated 11.9 thousand. There is slight with no bandemia. Glucose is normal. First troponin is normal. INR is therapeutic at 2.2. Labs: Laboratory Results - last 24 hr 06/26/23 06/26/23 11:45 11:55 WBC 11.9 H RBC 5.61 H Hgb 14.9 Hct 47.3 H MCV 84.3 MCH 26.6 L MCHC 31.5 L RDW Std Deviation 51.3 H RDW Coeff of Neelima 17.3 H Plt Count 273 MPV 10.5 Immature Gran % (Auto) 2.900 H Neut % (Auto) 74.7 H Lymph % (Auto) 12.6 L [place] % (Auto) 8.2 Eos % (Auto) 0.8 Baso % (Auto) 0.8 Absolute Neuts (auto) 8.9 H Absolute Lymphs (auto) 1.50 Nucleated RBC % 0 PT 25.0 H INR 2.2 APTT 36.6 H Sodium 140 Potassium 3.6 Chloride 107 Carbon Dioxide 30.0 Anion Gap 3 L BUN 17 Creatinine 0.78 Estim Creat Clear Calc 39.20 Est GFR (MDRD) Af Amer 90 Est GFR (MDRD) Non-Af 74 BUN/Creatinine Ratio 21.7 H Glucose 103 Calcium 9.0 Troponin I High Sens 32 POC Glucose 105 Radiography Diagnostic Testing: Clinical Impression(s) from Imaging Studies Brain CT 06/26/23 11:33 IMPRESSION: No acute intracranial process. Small vessel ischemia. Electronically Signed: Shanell Delarosa MD at 11:50 EDT , ADDENDUM: 06/26/23 1203 IMPRESSION: No acute intracranial process. Small vessel ischemia. N.B. : The above Results were Read Back by Shanell Delarosa MD to Julio Farnsworth MD, and understanding confirmed on 06/26/2023 11:56:19 (ET). Electronically Signed: Shanell Delarosa MD at 11:50 EDT , Head/Neck CTA 06/26/23 11:33 IMPRESSION: Atherosclerosis with no associated hemodynamically significant stenosis. Emphysema. N.B. : The above Results were Read Back by Shanell Delarosa MD to Javad Kim MD, and understanding confirmed on 06/26/2023 12:15:28 (ET). Electronically Signed: Shanell Delarosa MD at 12:16 EDT , ADDENDUM: 06/26/23 1223 IMPRESSION: Atherosclerosis with no associated hemodynamically significant stenosis. Emphysema. N.B. : The above Results were Read Back by Shanell Delarosa MD to Javad Kim MD, and understanding confirmed on 06/26/2023 12:15:28 (ET). Electronically Signed: Shanell Delarosa MD at 12:16 EDT , Management Discussion w/another healthcare provider: Hospitalist (Spoke with the hospitalist who will admit patient to PCU as full admission he was informed she has a pacemaker and is not a candidate for MRI.) and Radiologist (I received a call from the radiologist at 1147 that the unenhanced scan was negative for any acute abnormality.) Treatment and Re-Evaluation :: The electronic medical record was preselected did not realize this was not for a stroke patient. Patient's NIH is 0 however her findings are consistent with posterior circulatory stroke with her having ataxic gait and falling. Radiologist notified me at 1214 that the CTA reveals no abnormality. Comments:: At this point patient is not a candidate for thrombolytics and there is no evidence of a clot, LVO. Will contact hospitalist for admission Discharge Plan Dx/Rx/DC Orders Clinical Impression: Ataxia due to acute cerebrovascular disease, Hypertrophic cardiomyopathy, Chronic diastolic heart failure, Anticoagulant long-term use, Atrial fibrillation and flutter, Presence of permanent cardiac pacemaker, Hypertension Disposition Disposition: Acute Care Hospital [facility]
--- NOTE | 2023-06-26 11:39 | ED.RN ---
first call for stroke alert to [facility]. pt was baseline on 0100 prior to going to bed. woke with sx.
--- NOTE | 2023-06-26 11:46 | ED.RN ---
Pt arrived with a family friend. thierry called by family friend.
--- NOTE | 2023-06-26 11:52 | ED.RN ---
second call fro [facility]. pt in room ans waiting on neurology
[2023-06-26 11:55] LABS: Absolute Neutrophil Count 8.9 X10^3/uL (2.0-7.7); Basophil# 0.09 X10^3/uL; Basophil% 0.8 % (0-1); Eosinophil# 0.09 X10^3/uL; Eosinophils% 0.8 % (0-5); Hematocrit 47.3 % (37-47); Hemoglobin 14.9 g/dL (12.0-15.0); Lymphocyte % 12.6 % (19-41); Mean Corp Hgb Conc 31.5 g/dL (32-36); Mean Corpuscular Hgb 26.6 pg (27.0-32.0); Mean Corpuscular Volume 84.3 fL (81-99); Mean Platelet Vol. 10.5 fl (6.2-12.0); Monocyte# 0.98 X10^3/uL; Monocyte% 8.2 % (0-10); NRBC Flagged by Analyzer 0 % (0-5); Neutrophil # 8.87 X10^3/uL (2.7-7.7); Neutrophil % 74.7 % (47-70); Platelet Count 273 K/mm3 (150-450); RBC Distribution Width CV 17.3 % (11.6-14.6); RBC Distribution Width SD 51.3 fl (35.1-43.9); Red Blood Count 5.61 M/mm3 (4.2-5.4); White Blood Count 11.9 K/mm3 (4.4-11.0)
[2023-06-26 12:02] LABS: International Normalized Ratio 2.2; Partial Thromboplast Time 36.6 Seconds (24.1-36.2)
[2023-06-26 12:11] LABS: Anion Gap 3 (5-15); BUN 17 mg/dL (7-18); BUN/Creat Ratio 21.7 RATIO (10-20); Chloride 107 mmol/L (98-107); Creatinine, Serum 0.78 mg/dL (0.55-1.02); EST Glomerular Filtration Rate 74 mL/min (>60); Est Glom Filt Rate - Afr Amer 90 mL/min (>60); Glucose 103 mg/dL (74-106); Potassium 3.6 mmol/L (3.5-5.1); Sodium Level 140 mmol/L (136-145); Troponin-I HS 32 pg/mL (3.0-54.0)
[2023-06-26 12:13] LABS: Bedside Glucose 105 mg/dL (74-106)
--- NOTE | 2023-06-26 12:22 | RAD_ITS ---
INDICATION: Neuro deficit, acute, stroke suspected EXAMINATION/TECHNIQUE: X-RAY - XR Chest 1 View COMPARISON: Prior study dated: January 12, 2023 FINDINGS: LINES/DEVICES: There is a single lead cardiac pacer device in place with an intact lead terminating within the expected region of the right ventricle. There is an atrial appendage clip in place. LUNGS: There is a 1.6 cm nodular opacity projecting over the right lower lung. The lungs are hyperinflated. No pneumothorax. MEDIASTINUM AND CARDIOVASCULAR STRUCTURES: There is cardiomegaly. Central airways and mediastinal contour are unremarkable. BONES AND SOFT TISSUES: Unremarkable. RAD/Chest 1 View IMPRESSION: Indeterminate 1.6 cm nodular opacity projecting over the right lower lung, may be secondary to confluence of shadows however cannot exclude nodule, consider PA and lateral images for further characterization. Emphysema. Cardiomegaly. Electronically Signed: Shanell Delarosa MD at 12:43 EDT ,
--- NOTE | 2023-06-26 12:28 | PCM.HP.STD ---
HPI - General General Date of Admission: 06/26/23 Date of Service: 06/26/23 Chief Complaint: Dizziness HPI Narrative MICHELLE JIMENEZ, is a 83 F past medical history significant for sick sinus syndrome status post pacemaker placement paroxysmal A-fib who presented to the emergency department with dizziness. Per patient she was in her usual state of health prior to going to bed woke up on the morning of admission complaining of dizzy. Patient had difficulty with her gait. Presented to the emergency department as a result head CT and CTA of the head and neck obtained came back unremarkable. An MRI could not be readily obtained in the ED given the presence of her pacemaker. However a suspicion of posterior circulation CVA was entertained subsequently admitted to a monitored bed for further evaluation and management [facility] Medical History Anticoagulated on Coumadin Atrial fibrillation Atrial fibrillation and flutter Atrial flutter with rapid ventricular response Bladder cancer Chronic diastolic heart failure COPD (chronic obstructive pulmonary disease) Decreased cardiac ejection fraction Essential hypertension Essential hypertension Fall Former smoker Hyperlipidemia Hypertrophic obstructive cardiomyopathy (HOCM) Hypertrophic obstructive cardiomyopathy (HOCM) LBBB (left bundle branch block) Long QT interval Non-Hodgkin lymphoma Nonrheumatic mitral (valve) insufficiency On home oxygen therapy Paroxysmal atrial fibrillation Paroxysmal atrial fibrillation Persistent atrial fibrillation Polyp, sigmoid colon Presence of permanent cardiac pacemaker (~12/10/21) Sick sinus syndrome Urinary retention Home Medications magnesium oxide 400 mg PO DAILY supplement 04/06/19 [History Last Taken 06/26/23] gabapentin 100 mg capsule 300 mg PO BID NERVE PAIN 10/04/22 [History Last Taken 06/25/23] metoprolol succinate 100 mg tablet,extended release 24 hr 100 mg PO DAILY Blood pressure 01/10/23 [History Last Taken 06/26/23] acetaminophen 500 mg tablet 1,000 mg (2 x 500 mg) PO Q8 #0 tabs 01/26/23 [Rx Last Taken 06/26/23] warfarin 3 mg tablet 1.5 mg PO DAILY #45 tabs 05/14/23 [Rx Last Taken 06/25/23] furosemide 40 mg tablet 40 mg PO DAILY #90 tabs 05/18/23 [Rx Last Taken 06/26/23] buprenorphine 5 mcg/hour weekly transdermal patch 1 patch topical Q7D PAIN 06/26/23 [History Last Taken 06/24/23] lisinopril 20 mg tablet 20 mg PO DAILY 06/26/23 [History Last Taken Unknown] oxycodone 5 mg tablet 5 mg PO Q12H 06/26/23 [History Last Taken Unknown] Allergy/AdvReac Type Severity Reaction Status Date / Time allopurinol Allergy Rash Verified 06/09/23 14:27 tramadol AdvReac dizzy Verified 06/09/23 14:27 Family History Father Heart disease Hypertension Mother No cardiac disease Surgical History H/O cardiac radiofrequency ablation History of bladder surgery History of cardioversion (~04/25/20) History of left heart catheterization (LHC) (~11/30/17) History of mitral valve repair (~07/30/18) History of ventricular septal myectomy (~07/30/18) Social History household members: none Smoking Status: Former smoker pack-years: 58 how long ago did patient quit smokin years ago alcohol intake: never substance use type: does not use caffeine: No what type of physical activity do you participate in: walking ROS ROS Narrative GENERAL: denies fever, chills, night sweats, weight loss, anorexia HEENT: denies headache, sinus congestion, or drainage, dysphagia RESPIRATORY: denies cough, sputum production, shortness of breath, dyspnea on exertion CARDIAC: denies chest pain, palpitations, orthopnea, PND GASTROINTESTINAL: denies abdominal pain, nausea, vomiting, melena, GENITOURINARY: denies dysuria, urgency, frequency, heamaturia EXTREMITY: denies swelling MUSCULOSKELETAL: denies current joint pain or tenderness NEUROLOGIC: denies focal numbness, weakness, tingling HEMATOLOGIC: denies easy bruising and/or hemorrhage INTEGUMENT: denies rashes PSYCHIATRIC: denies suicidal or homicidal ideation Vital Signs Vital Signs Vital Signs: 06/26/23 11:01 06/26/23 11:30 06/26/23 11:44 Temperature 96.1 F L Temperature Source Temporal Pulse Rate 59 L Respiratory Rate 16 Respiratory Effort Normal Respiratory Pattern Normal Blood Pressure 158/78 H Blood Pressure Mean 104 Pulse Ox 95 Oxygen Delivery Method Room Air Room Air 06/26/23 11:47 06/26/23 12:04 Temperature Temperature Source Pulse Rate 60 60 Respiratory Rate 16 20 H Respiratory Effort Respiratory Pattern Blood Pressure 148/85 H 172/82 H Blood Pressure Mean 106 112 Pulse Ox 97 95 Oxygen Delivery Method Room Air Room Air Weight Weight: 60.328 kg Body Mass Index (BMI) 21.4 Physical Exam Narrative GENERAL: cooperative HEENT: Atraumatic; normocephalic EYES; Anicteric, Normal Conjunctiva NECK; supple, normal thyroid, RESPIRATORY: Diminished to auscultation CARDIOVASCULAR: Regular S1 S2, GI: soft, normoactive bowel sounds, : No Renal angle tenderness; EXTREMITIES: No edema, no clubbing, MUSCULOSKELETAL: no muscle wasting NEURO: Awake; no lateralizing signs. SKIN: No Rash PSYCH; Flat affect Results Lab / Micro Data 06/26/23 11:45 06/26/23 11:45 Labs: Laboratory Results - last 24 hr 06/26/23 11:45: WBC 11.9 H, RBC 5.61 H, Hgb 14.9, Hct 47.3 H, MCV 84.3, MCH 26.6 L, MCHC 31.5 L, RDW Std Deviation 51.3 H, RDW Coeff of Neelima 17.3 H, Plt Count 273, MPV 10.5, Immature Gran % (Auto) 2.900 H, Neut % (Auto) 74.7 H, Lymph % (Auto) 12.6 L, [place] % (Auto) 8.2, Eos % (Auto) 0.8, Baso % (Auto) 0.8, Absolute Neuts (auto) 8.9 H, Absolute Lymphs (auto) 1.50, Nucleated RBC % 0, PT 25.0 H, INR 2.2, APTT 36.6 H, Sodium 140, Potassium 3.6, Chloride 107, Carbon Dioxide 30.0, Anion Gap 3 L, BUN 17, Creatinine 0.78, Estim Creat Clear Calc 39.20, Est GFR (MDRD) Af Amer 90, Est GFR (MDRD) Non-Af 74, BUN/Creatinine Ratio 21.7 H, Glucose 103, Calcium 9.0, Troponin I High Sens 32 06/26/23 11:55: POC Glucose [address] 06/26/23 11:33 IMPRESSION: No acute intracranial process. Small vessel ischemia. Electronically Signed: Shanell Delarosa MD at 11:50 EDT , ADDENDUM: 06/26/23 1203 IMPRESSION: No acute intracranial process. Small vessel ischemia. N.B. : The above Results were Read Back by Shanell Delarosa MD to Julio Farnsworth MD, and understanding confirmed on 06/26/2023 11:56:19 (ET). Electronically Signed: Shanell Delarosa MD at 11:50 EDT , Head/Neck CTA 06/26/23 11:33 IMPRESSION: Atherosclerosis with no associated hemodynamically significant stenosis. Emphysema. N.B. : The above Results were Read Back by Shanell Delarosa MD to Javad iKm MD, and understanding confirmed on 06/26/2023 12:15:28 (ET). Electronically Signed: Shanell Delarosa MD at 12:16 EDT , ADDENDUM: 06/26/23 1223 IMPRESSION: Atherosclerosis with no associated hemodynamically significant stenosis. Emphysema. N.B. : The above Results were Read Back by Shanell Delarosa MD to Javad Kim MD, and understanding confirmed on 06/26/2023 12:15:28 (ET). Electronically Signed: Shanell Delarosa MD at 12:16 EDT , Assessment & Plan Assessment/Plan (1) Ataxia: PLAN: Plan Patient is an 83-year-old female presented with ataxia 1. Ataxia ? With high suspicion of possible posterior circulation CVA. Admitted to monitored bed ordered every 4 neurochecks as part of her management CT and CTA of the head and neck ordered results reviewed. Plan is for patient to undergo subsequent evaluation with a 2D echo with possible MRI if her pacemaker is MRI safe 2. Paroxysmal A-fib ? Rate controlled on systemic anticoagulation with Coumadin monitor with daily INR 3. Sick sinus syndrome ? Status post pacemaker placement 4. Chronic congestive heart failure with reduced ejection fraction (35% on echo obtained on 10/14/2022) ? Patient is on furosemide did continue. Also on beta-blockers continued as well 5. Hypertension - Blood pressure controlled, home medications continued with dose adjustment as needed 6. Valvular heart disease ? With history of mitral valve repair with septal myomectomy 7. Chronic neuropathic pain ? Patient is on gabapentin did continue 8. DVT prophylaxis ? Patient is on Coumadin no need for additional measures Time spent in the patient's overall evaluation,decision-making process, review of diagnostic data, adjustment of management, discussion with other providers, nursing nursing and ancillary staff involved in patient's care documentation, 75 Minutes Advance planning; did discuss with the patient and family regarding advanced directives as well as CODE STATUS. Did explain the various scenarios involved ( FULL CODE, DNR CCA, DNR CCA with no intubation, and DNR CC and what each meant) patient elected to remain full code with CPR and intubation if needed. Order was placed. Time spent on discussion 18 minutes. Charges/Coding Visit Charges Inpatient E&M: 74537 Init Hosp L3 Procedures Hospitalists Procedures: 92173 Advncd Care Plan 30 Min
--- NOTE | 2023-06-26 13:02 | NURSING ---
PCU KITTOE ATAXIA DUE TO STROKE
--- NOTE | 2023-06-26 15:59 | CM.ED ---
Social Work/CM Assessment SW introduced self and role to patient and patient's son, Tirso. Pt was a stoke alert, SW provided support. Pt reports it was not a stroke and is awaiting admission. SW explored needs with patient for d/c planning. Pt is anticipating going home and has been fairly independent. Pt's son says HHC was discontinued earlier this year and he believes it may be helpful as she is not getting around easily. Pt reports using a walker within the home. Care providers, pharmacy, and demographics verified. PCP: [facility] Specialists: Baldo (cardiology), Aaliyah Torre PA-C (pulmonology [facility]) Preferred Pharmacy: [facility] Insurance: [employer] [facility] Prescription Benefit: yes Living Will/HPOA: yes, copy in med rec LNOK: Daughter Linda, son Tirso Living Arrangements: Pt lives alone in a single story home with 2 steps to enter and two steps between her kitchen and living area. Pt's laundry is located in the basement with a handrail on these steps. Pt has been independent with all ADLs including self care and household tasks. Transportation: Self or family DME: shower chair, hand held shower, grab bars, cane, walker, rollator, pulseox SNF: [facility] HHC: [facility] Plan: Patient to be admitted for medical concerns and plans to d/c home. Possible HHC pending PT/OT evaluations. 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
--- NOTE | 2023-06-26 17:14 | ECHOD_ITS ---
Reason For Study: TIA/CVA Procedure This was a 2D Doppler, Color Flow transthoracic echocardiogram. Exam performed portable in patient room. Left Ventricle Normal LV size. Mild concentric left ventricular hypertrophy. The left ventricular ejection fraction is 55 %. Stage 3 diastolic dysfunction. Right Ventricle Normal right ventricle. Atria There is severe biatrial dilatation. Bubble contrast study is negative for PFO/ASD. Mitral Valve Mitral valve annuloplasty repair. Trivial mitral valve insufficiency. Tricuspid Valve Mild tricuspid valve insufficiency. Right ventricular systolic pressure estimated to be 48 mmHg. Aortic Valve Trisinus/trileaflet aortic valve. Mild diffuse aortic valve calcification. Mild aortic stenosis. Pulmonic Valve The pulmonic valve is not well visualized. Great Vessels Mildly dilated aortic root. Pericardium/Pleural No pericardial effusion. Medication Performed a rapid injection of agitated mix of 9 cc saline and 1cc air to assess for atrial septal defect. MMode/2D Measurements & Calculations LVIDd: 4.6 cm IVSd: 1.2 cm LVOT diam: 2.0 cm LVIDs: 3.2 cm LVPWd: 1.2 cm RVDd: 3.4 cm FS: 29.9 % LVOT area: 3.1 cm2 Ao root diam: 3.7 cm LAV(MOD-bp): 193.7 ml LVAd ap4: 26.6 cm2 LAV(MOD-bp) Indexed: 115.5 ml/m2 LVLd ap4: 8.7 cm LAV(MOD-sp2): 189.9 ml EDV(MOD-sp4): 68.9 ml LAV(MOD-sp4): 185.3 ml EDV(sp4-el): 69.3 ml LVAs ap4: 16.7 cm2 LVLs ap4: 7.6 cm ESV(MOD-sp4): 32.3 ml ESV(sp4-el): 30.9 ml EF(MOD-sp4): 53.1 % EF(sp4-el): 55.3 % SV(MOD-sp4): 36.6 ml SV(sp4-el): 38.3 ml LA A4 area: 39.1 cm2 LA dimension(2D): 6.2 cm RA A4 area: 31.3 cm2 TAPSE: 1.5 cm Time Measurements MV dec time: 0.19 sec Doppler Measurements & Calculations MV E max ray: 131.7 cm/sec Lat Peak E' Ray: 7.7 cm/sec Med Peak E' Ray: 4.9 cm/sec MV A max ray: 53.0 cm/sec E/E' lat: 17.1 E/E' med: 27.0 MV E/A: 2.5 MV V2 max: 136.2 cm/sec MV dec slope: 709.5 cm/sec2 Ao V2 max: 183.6 cm/sec MV max P.4 mmHg Ao max P.5 mmHg MV V2 mean: 81.6 cm/sec Ao V2 mean: 129.8 cm/sec MV mean P.3 mmHg Ao mean P.6 mmHg MV V2 VTI: 34.5 cm Ao V2 VTI: 38.6 cm MVA(VTI): 1.9 cm2 AV (velocity ratio): 0.56 ANDRE(I,D): 1.7 cm2 ANDRE(V,D): 1.7 cm2 LV V1 max: 98.4 cm/sec SV(LVOT): 67.0 ml PA V2 max: 101.5 cm/sec LV V1 max P.9 mmHg PA V2 mean: 69.2 cm/sec LV V1 mean P.0 mmHg LV V1 mean: 64.5 cm/sec LV V1 VTI: 21.7 cm TR max ray: 288.8 cm/sec TR max P.4 mmHg ECHO/Echo Complete Interpretation Summary Mild concentric left ventricular hypertrophy. The left ventricular ejection fraction is 55 %. Stage 3 diastolic dysfunction. Mild tricuspid valve insufficiency. Right ventricular systolic pressure estimated to be 48 mmHg. Mild diffuse aortic valve calcification. Mild aortic stenosis. Mildly dilated aortic root. Bubble contrast study is negative for PFO/ASD. There is severe biatrial dilatation. Ordering Physician: Isrrael Byrd Referring Physician: Cheyanne Holt M.D. Performed By: Zohra Silva RCS
[2023-06-26 17:59] LABS: Troponin-I HS 36 pg/mL (3.0-54.0)
[2023-06-26] MEDS: Gabapentin 300 MG Capsule PO (21:18)
[2023-06-26] MEDS: Acetaminophen 500 MG Tablet 1000 MG PO (21:19)
[2023-06-26] MEDS: 0.9% Normal Saline 1,000 ML 125 ML IV (21:25)
[2023-06-27] VITALS (7 sets, daily range): BP systolic 156–169; BP diastolic 74–85; PULSE 59–61; RESP 16–18; TEMP 36.4–36.5; O2SAT 94–96; BMI 21.4
[2023-06-27] MEDS: 0.9% Normal Saline 1,000 ML 125 ML IV (05:28)
[2023-06-27] MEDS: Acetaminophen 500 MG Tablet 1000 MG PO (06:04)
[2023-06-27 07:09] LABS: Absolute Lymphocyte Count 1.74 X10^3/uL (0.83-4.51); Absolute Neutrophil Count 6.1 X10^3/uL (2.0-7.7); Basophil# 0.05 X10^3/uL; Basophil% 0.6 % (0-1); Eosinophils% 2.3 % (0-5); Hematocrit 43.4 % (37-47); Hemoglobin 13.7 g/dL (12.0-15.0); Lymphocyte # 1.74 X10^3/ul (0.83-4.51); Lymphocyte % 19.8 % (19-41); Mean Corp Hgb Conc 31.6 g/dL (32-36); Mean Corpuscular Hgb 26.5 pg (27.0-32.0); Mean Corpuscular Volume 83.9 fL (81-99); Mean Platelet Vol. 10.2 fl (6.2-12.0); Monocyte# 0.69 X10^3/uL; Monocyte% 7.8 % (0-10); NRBC Flagged by Analyzer 0 % (0-5); Neutrophil # 6.08 X10^3/uL (2.7-7.7); Platelet Count 214 K/mm3 (150-450); RBC Distribution Width CV 16.9 % (11.6-14.6); RBC Distribution Width SD 51.1 fl (35.1-43.9); Red Blood Count 5.17 M/mm3 (4.2-5.4); White Blood Count 8.8 K/mm3 (4.4-11.0)
[2023-06-27 07:50] LABS: International Normalized Ratio 2.7; Prothrombin Time (Protime)PT. 28.6 SECONDS (11.7-14.9)
[2023-06-27 07:59] LABS: Anion Gap 5 (5-15); BUN 16 mg/dL (7-18); BUN/Creat Ratio 22.4 RATIO (10-20); Calcium,Total 8.2 mg/dL (8.5-10.1); Chloride 113 mmol/L (98-107); Cholesterol 187 mg/dL (200); Creatinine, Serum 0.71 mg/dL (0.55-1.02); EST Glomerular Filtration Rate 83 mL/min (>60); Est Glom Filt Rate - Afr Amer 100 mL/min (>60); Glucose 108 mg/dL (74-106); High Density Lipoprotein 44 mg/dL; Magnesium 1.8 mg/dL (1.6-2.6); Phosphorus 2.8 mg/dL (2.5-4.9); Potassium 3.5 mmol/L (3.5-5.1); Sodium Level 143 mmol/L (136-145); Triglycerides 157 mg/dL; Very Low Density Lipoprotein 31 mg/dL (5-40)
--- NOTE | 2023-06-27 08:22 | PCM.PN.HOSP ---
Reason for Visit Reason for Visit: Diagnoses Ataxia, unspecified (06/26/23) Subjective Subjective Patient is an 83-year-old lady admitted with ataxia. A suspicion of posterior circulation CVA entertained however an MRI could not be obtained in view of the presence of pacemaker. Plan is for patient to be assessed by PT this a.m. prior to disposition decision being made. Objective Data Objective Data Vital Signs: Vital Signs Temp Pulse Resp BP Pulse Ox O2 Del Method 97.6 F L 60 16 156/85 H 94 Room Air 06/27/23 05:00 06/27/23 05:00 06/27/23 05:00 06/27/23 05:00 06/27/23 05:00 06/27/23 05:00 Oxygen Delivery Method Room Air Weight: 60.3 kg Body Mass Index (BMI) 21.4 Intake & Output: Intake and Output for Last 24 Hours 06/25/23 06/26/23 06/27/23 23:59 23:59 23:59 Intake Total 450 / 450 1120 / 1120 Balance 450 / 450 1120 / 1120 Lab / Micro Data 06/27/23 06:10 06/27/23 06:10 Labs: Laboratory Results - last 24 hr 06/26/23 11:45: WBC 11.9 H, RBC 5.61 H, Hgb 14.9, Hct 47.3 H, MCV 84.3, MCH 26.6 L, MCHC 31.5 L, RDW Std Deviation 51.3 H, RDW Coeff of Neelima 17.3 H, Plt Count 273, MPV 10.5, Immature Gran % (Auto) 2.900 H, Neut % (Auto) 74.7 H, Lymph % (Auto) 12.6 L, [place] % (Auto) 8.2, Eos % (Auto) 0.8, Baso % (Auto) 0.8, Absolute Neuts (auto) 8.9 H, Absolute Lymphs (auto) 1.50, Nucleated RBC % 0, PT 25.0 H, INR 2.2, APTT 36.6 H, Sodium 140, Potassium 3.6, Chloride 107, Carbon Dioxide 30.0, Anion Gap 3 L, BUN 17, Creatinine 0.78, Estim Creat Clear Calc 39.20, Est GFR (MDRD) Af Amer 90, Est GFR (MDRD) Non-Af 74, BUN/Creatinine Ratio 21.7 H, Glucose 103, Calcium 9.0, Troponin I High Sens 32 06/26/23 11:55: POC Glucose 105 06/26/23 17:33: Troponin I High Sens 36 06/27/23 06:10: WBC 8.8, RBC 5.17, Hgb 13.7, Hct 43.4, MCV 83.9, MCH 26.5 L, MCHC 31.6 L, RDW Std Deviation 51.1 H, RDW Coeff of Neelima 16.9 H, Plt Count 214, MPV 10.2, Immature Gran % (Auto) 0.500, Neut % (Auto) 69.0, Lymph % (Auto) 19.8, [place] % (Auto) 7.8, Eos % (Auto) 2.3, Baso % (Auto) 0.6, Absolute Neuts (auto) 6.1, Absolute Lymphs (auto) 1.74, Nucleated RBC % 0, PT 28.6 H, INR 2.7, Sodium 143, Potassium 3.5, Chloride 113 H, Carbon Dioxide 25.0, Anion Gap 5, BUN 16, Creatinine 0.71, Estim Creat Clear Calc 39.20, Est GFR (MDRD) Af Amer 100, Est GFR (MDRD) Non-Af 83, BUN/Creatinine Ratio 22.4 H, Glucose 108 H, Calcium 8.2 L, Phosphorus 2.8, Magnesium 1.8, Triglycerides 157, Cholesterol 187, LDL Cholesterol 112, VLDL Cholesterol 31, HDL Cholesterol 44 Radiography Diagnostic Testing: Radiology Impression Brain CT 06/26/23 11:33 IMPRESSION: No acute intracranial process. Small vessel ischemia. Electronically Signed: Shanell Delarosa MD at 11:50 EDT , ADDENDUM: 06/26/23 1203 IMPRESSION: No acute intracranial process. Small vessel ischemia. N.B. : The above Results were Read Back by Shanell Delarosa MD to Julio Farnsworth MD, and understanding confirmed on 06/26/2023 11:56:19 (ET). Electronically Signed: Shanell Delarosa MD at 11:50 EDT , Head/Neck CTA 06/26/23 11:33 IMPRESSION: Atherosclerosis with no associated hemodynamically significant stenosis. Emphysema. N.B. : The above Results were Read Back by Shanell Delarosa MD to Javad Kim MD, and understanding confirmed on 06/26/2023 12:15:28 (ET). Electronically Signed: Shanell Delarosa MD at 12:16 EDT , ADDENDUM: 06/26/23 1223 IMPRESSION: Atherosclerosis with no associated hemodynamically significant stenosis. Emphysema. N.B. : The above Results were Read Back by Shanell Delarosa MD to Javad Kim MD, and understanding confirmed on 06/26/2023 12:15:28 (ET). Electronically Signed: Shanell Delarosa MD at 12:16 EDT , Chest X-Ray 06/26/23 12:22 IMPRESSION: Indeterminate 1.6 cm nodular opacity projecting over the right lower lung, may be secondary to confluence of shadows however cannot exclude nodule, consider PA and lateral images for further characterization. Emphysema. Cardiomegaly. Electronically Signed: Shanell Delarosa MD at 12:43 EDT , Physical Exam Narrative GENERAL: cooperative HEENT: Atraumatic; normocephalic EYES; Anicteric, Normal Conjunctiva NECK; supple, normal thyroid, RESPIRATORY: Diminished to auscultation CARDIOVASCULAR: Regular S1 S2, GI: soft, normoactive bowel sounds, : No Renal angle tenderness; EXTREMITIES: No edema, no clubbing, MUSCULOSKELETAL: no muscle wasting NEURO: Awake; no lateralizing signs. SKIN: No Rash PSYCH; Flat affect Assessment & Plan Assessment/Plan (1) Ataxia: PLAN: Plan Patient is an 83-year-old female presented with ataxia 1. Ataxia ? With high suspicion of possible posterior circulation CVA. Admitted to monitored bed ordered every 4 neurochecks as part of her management CT and CTA of the head and neck ordered results reviewed. Plan is for patient to undergo subsequent evaluation with a 2D echo with possible MRI if her pacemaker is MRI safe ? 06/27/2023; an MRI could not be performed given the presence of a pacemaker. Patient due to be assessed by PT 2. Paroxysmal A-fib ? Rate controlled on systemic anticoagulation with Coumadin monitor with daily INR 3. Sick sinus syndrome ? Status post pacemaker placement 4. Chronic congestive heart failure with reduced ejection fraction (35% on echo obtained on 10/14/2022) ? Patient is on furosemide did continue. Also on beta-blockers continued as well 5. Hypertension - Blood pressure controlled, home medications continued with dose adjustment as needed 6. Valvular heart disease ? With history of mitral valve repair with septal myomectomy 7. Chronic neuropathic pain ? Patient is on gabapentin did continue 8. DVT prophylaxis ? Patient is on Coumadin no need for additional measures Time spent in the patient's overall evaluation,decision-making process, review of diagnostic data, adjustment of management, discussion with other providers, nursing nursing and ancillary staff involved in patient's care documentation, 35 Minutes Charges/Coding Visit Charges Inpatient E&M: 45224 Subs Hosp L2
[2023-06-27] MEDS: Magnesium Chloride 64 MG Delay Rel.Tablet 128 MG PO (09:46)
[2023-06-27] MEDS: Gabapentin 300 MG Capsule PO (09:46)
[2023-06-27] MEDS: Lisinopril 20 MG Tablet PO (10:58)
[2023-06-27] MEDS: Metoprolol(XL)Succ 100 MG Tablet PO (10:59)
--- NOTE | 2023-06-27 11:27 | CASEMGMT ---
Social Work PHQ-9 not completed as stroke has been ruled out. MATI Castro
--- NOTE | 2023-06-27 12:03 | DS.PCM_ITS ---
Providers Date of Admission: 06/26/23 Date of Discharge: 06/27/23 Primary Care Physician: Dr. Cheyanne Holt MD Reason For Visit: SUSPECTED POSTERIOR CIRCULATOPN CVA Diagnosis Discharge Diagnosis (1) Ataxia: Status: Acute Code(s): R27.0 - Ataxia, unspecified Plan Patient is an 83-year-old female presented with ataxia 1. Ataxia ? With high suspicion of possible posterior circulation CVA. Admitted to monitored bed ordered every 4 neurochecks as part of her management CT and CTA of the head and neck ordered results reviewed. Plan is for patient to undergo subsequent evaluation with a 2D echo with possible MRI if her pacemaker is MRI safe ? 06/27/2023; an MRI could not be performed given the presence of a pacemaker. Patient due to be assessed by PT. ? Patient was deemed safe to be discharged home plan is for patient to continue with treatment as outpatient with outpatient therapy 2. Paroxysmal A-fib ? Rate controlled on systemic anticoagulation with Coumadin monitor with daily INR 3. Sick sinus syndrome ? Status post pacemaker placement 4. Chronic congestive heart failure with reduced ejection fraction (35% on echo obtained on 10/14/2022) ? Patient is on furosemide did continue. Also on beta-blockers continued as well 5. Hypertension - Blood pressure controlled, home medications continued with dose adjustment as needed 6. Valvular heart disease ? With history of mitral valve repair with septal myomectomy 7. Chronic neuropathic pain ? Patient is on gabapentin did continue 8. DVT prophylaxis ? Patient is on Coumadin no need for additional measures Time spent in the patient's overall evaluation,decision-making process, review of diagnostic data, adjustment of management, discussion with other providers, nursing nursing and ancillary staff involved in patient's care documentation, 35 Minutes Medications at Discharge Home Medications magnesium oxide 400 mg PO DAILY supplement 04/06/19 gabapentin 100 mg capsule 300 mg PO BID NERVE PAIN 10/04/22 metoprolol succinate 100 mg tablet,extended release 24 hr 100 mg PO DAILY Blood pressure 01/10/23 acetaminophen 500 mg tablet 1,000 mg (2 x 500 mg) PO Q8 #0 tabs 01/26/23 warfarin 3 mg tablet 1.5 mg PO DAILY #45 tabs 05/14/23 furosemide 40 mg tablet 40 mg PO DAILY #90 tabs 05/18/23 buprenorphine 5 mcg/hour weekly transdermal patch 1 patch topical Q7D PAIN 06/26/23 lisinopril 20 mg tablet 20 mg PO DAILY 06/26/23 oxycodone 5 mg tablet 5 mg PO Q12H 06/26/23 Hospital Course Summary of Care Provided Minutes Spent on Discharge: 35 Physical Exam Narrative GENERAL: cooperative HEENT: Atraumatic; normocephalic EYES; Anicteric, Normal Conjunctiva NECK; supple, normal thyroid, RESPIRATORY: Diminished to auscultation CARDIOVASCULAR: Regular S1 S2, GI: soft, normoactive bowel sounds, : No Renal angle tenderness; EXTREMITIES: No edema, no clubbing, MUSCULOSKELETAL: no muscle wasting NEURO: Awake; no lateralizing signs. SKIN: No Rash PSYCH; Flat affect Weight / BMI Weight Weight: 60.3 kg Body Mass Index (BMI) 21.4 ABG / Lab / Microbiology Data 06/27/23 06:10 06/27/23 06:10 Laboratory: Laboratory Results - last 24 hr 06/26/23 11:45: PT 25.0 H, INR 2.2, APTT 36.6 H, Sodium 140, Potassium 3.6, Chloride 107, Carbon Dioxide 30.0, Anion Gap 3 L, BUN 17, Creatinine 0.78, Estim Creat Clear Calc 39.20, Est GFR (MDRD) Af Amer 90, Est GFR (MDRD) Non-Af 74, BUN/Creatinine Ratio 21.7 H, Glucose 103, Calcium 9.0, Troponin I High Sens 32 06/26/23 11:55: POC Glucose 105 06/26/23 17:33: Troponin I High Sens 36 06/27/23 06:10: WBC 8.8, RBC 5.17, Hgb 13.7, Hct 43.4, MCV 83.9, MCH 26.5 L, MCHC 31.6 L, RDW Std Deviation 51.1 H, RDW Coeff of Neelima 16.9 H, Plt Count 214, MPV 10.2, Immature Gran % (Auto) 0.500, Neut % (Auto) 69.0, Lymph % (Auto) 19.8, [place] % (Auto) 7.8, Eos % (Auto) 2.3, Baso % (Auto) 0.6, Absolute Neuts (auto) 6.1, Absolute Lymphs (auto) 1.74, Nucleated RBC % 0, PT 28.6 H, INR 2.7, Sodium 143, Potassium 3.5, Chloride 113 H, Carbon Dioxide 25.0, Anion Gap 5, BUN 16, Creatinine 0.71, Estim Creat Clear Calc 39.20, Est GFR (MDRD) Af Amer 100, Est GFR (MDRD) Non-Af 83, BUN/Creatinine Ratio 22.4 H, Glucose 108 H, Calcium 8.2 L, Phosphorus 2.8, Magnesium 1.8, Triglycerides 157, Cholesterol 187, LDL Cholesterol 112, VLDL Cholesterol 31, HDL Cholesterol 44 Radiography Diagnostic Testing: Radiology Impression Brain CT 06/26/23 11:33 IMPRESSION: No acute intracranial process. Small vessel ischemia. Electronically Signed: Shanell Delarosa MD at 11:50 EDT , ADDENDUM: 06/26/23 1203 IMPRESSION: No acute intracranial process. Small vessel ischemia. N.B. : The above Results were Read Back by Shanell Delarosa MD to Julio Farnsworth MD, and understanding confirmed on 06/26/2023 11:56:19 (ET). Electronically Signed: Shanell Delarosa MD at 11:50 EDT , Head/Neck CTA 06/26/23 11:33 IMPRESSION: Atherosclerosis with no associated hemodynamically significant stenosis. Emphysema. N.B. : The above Results were Read Back by Shanell Delarosa MD to Javad Kim MD, and understanding confirmed on 06/26/2023 12:15:28 (ET). Electronically Signed: Shanell Delarosa MD at 12:16 EDT , ADDENDUM: 06/26/23 1223 IMPRESSION: Atherosclerosis with no associated hemodynamically significant stenosis. Emphysema. N.B. : The above Results were Read Back by Shanell Delarosa MD to Javad Kim MD, and understanding confirmed on 06/26/2023 12:15:28 (ET). Electronically Signed: Shanell Delarosa MD at 12:16 EDT , Chest X-Ray 06/26/23 12:22 IMPRESSION: Indeterminate 1.6 cm nodular opacity projecting over the right lower lung, may be secondary to confluence of shadows however cannot exclude nodule, consider PA and lateral images for further characterization. Emphysema. Cardiomegaly. Electronically Signed: Shanell Delarosa MD at 12:43 EDT , D/C Instructions Discharge Diet: No restrictions Discharge Activity: Return to Normal Activity, May Shower and Use Walker Weight Bearing Status: Weight bearing as tolerated Call your doctor if you observe: Fever of 101 or Higher, Inability to urinate, Inability to have a bowel movement, Shortness of breath, Dizziness, Fainting spells, Swelling in the ankles, Chest pain and Uncontrolled pain Additional Instructions: Discharge to daughter's house 01/30/2023, [facility] PT/OT/SN/DIAZ. Meaningful Use Info Meaningful Use Diagnoses (Choose all that apply): None applicable Discharge Plan Admission Admit Date/Time: 06/26/23 12:25 Attending Provider: Isrrael Byrd Primary Care Provider: Cheyanne Holt Discharge Orders/Prescriptions Prescriptions: Continued magnesium oxide 400 mg magnesium tablet 400 mg PO DAILY gabapentin 100 mg capsule 300 mg PO BID metoprolol succinate 100 mg tablet extended release 24 hr 100 mg PO DAILY acetaminophen 500 mg Tablet 1,000 mg PO Q8 Qty: 0 0RF buprenorphine 5 mcg/hour patch weekly 1 patch topical Q7D Patient Comments: Apply 1 (ONE) patch transdermally EVERY WEEK FOR 28 DAYS lisinopril 20 mg tablet 20 mg PO DAILY Patient Comments: TAKE 1 TABLET BY MOUTH FOR BLOOD PRESSURE oxycodone 5 mg tablet 5 mg PO Q12H Patient Comments: TAKE 1 TABLET BY MOUTH TWICE DAILY FOR 28 DAYS warfarin 3 mg tablet 1.5 mg PO DAILY Qty: 45 3RF Protocol: Dose Management Condition: Thursday Dose/Route: 1.5 mg Instruction: 0.5 x 3 mg tablets Condition: Thursday Dose/Route: 1.5 mg Instruction: 0.5 x 3 mg tablets Condition: Thursday Dose/Route: 1.5 mg Instruction: 0.5 x 3 mg tablets Condition: Thursday Dose/Route: 1.5 mg Instruction: 0.5 x 3 mg tablets Condition: Dose/Route: 1.5 mg Instruction: 0.5 x 3 mg tablets Condition: Thursday Dose/Route: 1.5 mg Instruction: 0.5 x 3 mg tablets Condition: Thursday Dose/Route: 1.5 mg Instruction: 0.5 x 3 mg tablets Protocol Text: Adjustment Start Date: Thursday06/24/23 INR Value: 2.2 INR Date: 06/24/23 Recheck Date: 07/22/23 furosemide 40 mg tablet 40 mg PO DAILY Qty: 90 3RF Referrals / Follow Up: Cheyanne Holt MD [Primary Care Provider] - Within 1 Week Disposition Disposition (needs filled in before D/C Order can be placed): Home Health Service Charges/Coding Visit Charges Inpatient E&M: 67251 Disch Hosp >30min
--- NOTE | 2023-06-27 12:14 | CASEMGMT ---
PRETTY MARTINEZ Follow-up: Recommendations reviewed from PT/OT. Dr. Byrd provided script for outpt PT and OT after discharge. This RN CM met with pt and discussed ordered outpt PT and OT services and provided script. Pt expressed appreciation and understanding. Pt states she has a cleaning lady who can assist with transportation to these appointments. Educated pt on [facility] Auxillary van which can also assist with transportation. Pt states she has used this service in the past. Pt agreeable with plan for oupt tx. DC Plan: DC home with outpt PT and OT tx. Alison Guerrero RN CM
== END 2023-06-27 14:37 | disposition home or self-care (01) | DRG 65 ==
LOC: ED 12:53 → PCU 06-27 12:06
PROVIDERS: Admitting Provider Internal Medicine; Emergency Provider Emergency Medicine; PCP Internal Medicine; Visit Provider Internal Medicine
DX: I63.89 Other cerebral infarction (principal); J43.9 Emphysema, unspecified; I42.1 Obstructive hypertrophic cardiomyopathy; I50.32 Chronic diastolic (congestive) heart failure; I11.0 Hypertensive heart disease with heart failure; I49.5 Sick sinus syndrome; I48.0 Paroxysmal atrial fibrillation; G62.9 Polyneuropathy, unspecified; E78.5 Hyperlipidemia, unspecified; R27.0 Ataxia, unspecified; Z99.81 Dependence on supplemental oxygen; Z79.01 Long term (current) use of 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; Z95.0 Presence of cardiac pacemaker; Z85.51 Personal history of malignant neoplasm of bladder; Z85.72 Personal history of non-Hodgkin lymphomas; Z87.891 Personal history of nicotine dependence; Z79.899 Other long term (current) drug therapy
CPT/HCPCS: 36415; 70450; 70496; 70498; 71045; 80048; 80061; 82962; 83735; 84100; 84484; 85025; 85610; 85730; 92610; 93005; 93306; 94762; 96360; 96361; 97162; 97166; 99221; 99252; 99285; J7030; Q9967; A4216; G0378; G0463

== ENCOUNTER → 2023-07-22 | Outpatient (CLI) | payer MEDICARE, SELFPAY ==
[2023-07-22 11:06] LABS: International Normalized Ratio 2.1; Prothrombin Time (Protime)PT. 23.7 SECONDS (11.7-14.9)
== END | disposition home or self-care (01) ==
LOC: LAB 09:36
PROVIDERS: PCP Internal Medicine; Visit Provider Internal Medicine Cardiovascular Disease
DX: I48.91 Unspecified atrial fibrillation (principal); Z79.01 Long term (current) use of 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
CPT/HCPCS: 36415; 85610

== ENCOUNTER → 2023-08-20 | Outpatient (CLI) | payer MEDICARE, SELFPAY ==
[2023-08-20 10:58] LABS: International Normalized Ratio 1.7
== END | disposition home or self-care (01) ==
LOC: LAB 08:26
PROVIDERS: PCP Internal Medicine; Referring Provider Internal Medicine Cardiovascular Disease; Visit Provider Internal Medicine Cardiovascular Disease
DX: I48.91 Unspecified atrial fibrillation (principal); Z79.01 Long term (current) use of 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
CPT/HCPCS: 36415; 85610

== ENCOUNTER → 2023-08-27 | Outpatient (CLI) | payer MEDICARE, SELFPAY ==
[2023-08-27 10:52] LABS: International Normalized Ratio 1.9; Prothrombin Time (Protime)PT. 22.3 SECONDS (11.7-14.9)
== END | disposition home or self-care (01) ==
LOC: LAB 08:07
PROVIDERS: PCP Internal Medicine; Referring Provider Internal Medicine Cardiovascular Disease; Visit Provider Internal Medicine Cardiovascular Disease
DX: I48.91 Unspecified atrial fibrillation (principal); Z79.01 Long term (current) use of 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
CPT/HCPCS: 36415; 85610

== ENCOUNTER → 2023-09-03 | Outpatient (CLI) | payer MEDICARE, SELFPAY ==
[2023-09-03 10:55] LABS: International Normalized Ratio 2.6; Prothrombin Time (Protime)PT. 28.6 SECONDS (11.7-14.9)
== END | disposition home or self-care (01) ==
LOC: LAB 09:10
PROVIDERS: PCP Internal Medicine; Referring Provider Internal Medicine Cardiovascular Disease; Visit Provider Internal Medicine Cardiovascular Disease
DX: I48.91 Unspecified atrial fibrillation (principal); Z79.01 Long term (current) use of 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
CPT/HCPCS: 36415; 85610

== ENCOUNTER → 2023-09-17 | Outpatient (CLI) | payer MEDICARE, SELFPAY ==
[2023-09-17 11:00] LABS: International Normalized Ratio 2.4; Prothrombin Time (Protime)PT. 26.4 SECONDS (11.7-14.9)
== END | disposition home or self-care (01) ==
LOC: LAB 09:22
PROVIDERS: PCP Internal Medicine; Referring Provider Internal Medicine Cardiovascular Disease; Visit Provider Internal Medicine Cardiovascular Disease
DX: I48.91 Unspecified atrial fibrillation (principal); Z79.01 Long term (current) use of 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
CPT/HCPCS: 36415; 85610

== ENCOUNTER → 2023-10-16 | Outpatient (CLI) | payer MEDICARE, SELFPAY ==
[2023-10-16 11:07] LABS: International Normalized Ratio 1.9; Prothrombin Time (Protime)PT. 21.7 SECONDS (11.7-14.9)
== END | disposition home or self-care (01) ==
LOC: LAB 09:53
PROVIDERS: PCP Internal Medicine; Referring Provider Internal Medicine Cardiovascular Disease; Visit Provider Internal Medicine Cardiovascular Disease
DX: I48.91 Unspecified atrial fibrillation (principal); Z79.01 Long term (current) use of 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
CPT/HCPCS: 36415; 85610

== ENCOUNTER → 2023-11-06 | Outpatient (CLI) | payer MEDICARE, SELFPAY ==
[2023-11-06 11:11] LABS: International Normalized Ratio 2.4; Prothrombin Time (Protime)PT. 26.1 SECONDS (11.7-14.9)
== END | disposition home or self-care (01) ==
LOC: LAB 09:57
PROVIDERS: PCP Internal Medicine; Visit Provider Internal Medicine Cardiovascular Disease
DX: I48.91 Unspecified atrial fibrillation (principal); Z79.01 Long term (current) use of 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
CPT/HCPCS: 36415; 85610

== ENCOUNTER → 2023-12-07 | Outpatient (CLI) | payer MEDICARE, SELFPAY ==
[2023-12-07 11:37] LABS: International Normalized Ratio 3.4; Prothrombin Time (Protime)PT. 34.9 SECONDS (11.7-14.9)
== END | disposition home or self-care (01) ==
LOC: LAB 09:21
PROVIDERS: PCP Internal Medicine; Visit Provider Internal Medicine Cardiovascular Disease
DX: I48.91 Unspecified atrial fibrillation (principal); Z79.01 Long term (current) use of 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
CPT/HCPCS: 36415; 85610

== ENCOUNTER → 2023-12-14 | Outpatient (CLI) | payer MEDICARE, SELFPAY ==
[2023-12-14 12:28] LABS: Prothrombin Time (Protime)PT. > 120.0 SECONDS (11.7-14.9)
[2023-12-14 12:34] LABS: International Normalized Ratio > 19.5
== END | disposition home or self-care (01) ==
PROVIDERS: PCP Internal Medicine; Visit Provider Internal Medicine Cardiovascular Disease
DX: I48.91 Unspecified atrial fibrillation (principal); Z79.01 Long term (current) use of 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
CPT/HCPCS: 36415; 85610

== ENCOUNTER → 2023-12-14 | Outpatient (CLI) | payer MEDICARE, SELFPAY ==
[2023-12-14 16:41] LABS: International Normalized Ratio 1.8; Prothrombin Time (Protime)PT. 20.7 SECONDS (11.7-14.9)
== END | disposition home or self-care (01) ==
LOC: LAB 16:10
PROVIDERS: PCP Internal Medicine; Referring Provider Physician Assistant Medical; Visit Provider Physician Assistant Medical
DX: I48.91 Unspecified atrial fibrillation (principal); Z79.01 Long term (current) use of 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; R79.1 Abnormal coagulation profile
CPT/HCPCS: 36415; 85610

== ENCOUNTER → 2023-12-16 | Outpatient (CLI) | payer MEDICARE, SELFPAY ==
--- OUTSIDE RECORDS SUMMARY | 2023-12-16 10:22 | XMS RPT_ITS | CCD ---
Author Name Unknown Address [id number] [place] [address] Organization [facility] Care Team Providers Care Wardrobe Image Consultant Name Role Phone Belle RN, Mayte Jacobson Unavailable Unavailable Belle OLSEN, Mayte Jacobson Unavailable Unavailable KENDALL, TREMAYNE Unavailable Unavailable KENDALL, TREMAYNE Unavailable Unavailable TALAMPAS, ALISIA Unavailable Unavailable KENDALL, TREMAYNE Unavailable Unavailable KENDALL, TREMAYNE Unavailable Unavailable TALAMPAS, ALISIA Unavailable Unavailable KENDALL, TREMAYNE Unavailable Unavailable KENDALL, TREMAYNE Unavailable Unavailable TALAMPAS, ALISIA Unavailable Unavailable Physician, PCP Unknown Unavailable Unavailab KINA King Unavailable Unavailable Alisia Pacheco MD Primary Care Provider Arnold Bland Unavailable Panda Miller MD Unavailable Alisia Pacheco MD Primary Care Provider Arnold Bland Unavailable Panda Miller MD Unavailable Arnold Bland F Unavailable Alisia Pacheco MD Primary Care Provider Arnold Bland Unavailable Panda Miller MD Unavailable Maria Isabel Tay MD Unavailable BEBETO CHAUDHARY Attending Unavailable ALISIA PACHECO Primary Care Unavailable BEBETO CHAUDHARY Admitting Unavailable BEBETO CHAUDHARY Referring Unavailable ALISIA PACHECO Primary Care Unavailable BEBETO CHAUDHARY Attending Unavailable TALAMPAS, ALISIA D Primary Care Unavailable ARNOLD BLAND Referring Unavailable TALAMPAS, ALISIA D Primary Care Unavailable TEX JOHNSON Attending Unavailable Maria Isabel Tay MD Unavailable Taldong FORTUNE, Alisia Rinku Primary Care Provider MAY, RONEN KHAN Attending Unavailable TALAMPAS, ALISIA D Primary Care Unavailable Panda Miller MD Unavailable [phone] Arnold Bland MD Unavailable Alisia Pacheco MD Primary Care Provider TALAMPAS ALISIA, ALISIA~[id number] TALAMPAS Primary Care Unavailable PETER LEE Attending Unavailable TALAMPAS, ALISIA D Primary Care Unavailable TALAMPAS, ALISIA D Primary Care Unavailable AALIYAH STONE Attending Unavailable TALAMPAS, ALISIA D Primary Care Unavailable BALES, JERAD Attending Unavailable TALAMPAS, ALISIA D Primary Care Unavailable TALAMPAS, ALISIA D Primary Care Unavailable BALES, JERAD Referring Unavailable BALES, JERAD Attending Unavailable TALAMPAS, ALISIA D Primary Care Unavailable BALES, JERAD Referring Unavailable BALES, JERAD Attending Unavailable TALAMPAS, ALISIA D Primary Care Unavailable TALAMPAS, ALISIA D Primary Care Unavailable TALAMPAS, ALISIA D Attending Unavailable TALAMPAS, ALISIA D Attending Unavailable TALAMPAS, ALISIA D Primary Care Unavailable TALAMPAS, ALISIA D Attending Unavailable TALAMPAS, ALISIA D Primary Care Unavailable TALAMPAS, ALISIA D Primary Care Unavailable TALAMPAS, ALISIA D Primary Care Unavailable TALAMPAS, ALISIA D Primary Care Unavailable TALAMPAS, ALISIA D Attending Unavailable Allergies Allergy Classification Reported Allergen(s) Allergy Type Date of Onset Reaction(s) Facility (20 sources) allopurinol; Translations: [ALLOPURINOL] Drug Allergy 7 Rash [facility] Repository (20 sources) traMADol; Translations: [TRAMADOL] Drug Allergy 6 Other: See Comments [facility] Repository (3 sources) OTHER; Translations: [OTHER] Propensity to adverse reactions (disorder) 6 [facility] Repository (20 sources) environmental [Other] Propensity to adverse reactions 6 Intolerance [facility] Work Phone: Medications Current Medications Medication Drug Class(es) Dates Sig (Normalized) Sig (Original) cephalexin 500 mg oral capsule (2 sources) Cephalosporin Antibacterial Start: 03-22-2022 End: 03-29-2022 take 1 capsule by mouth three times daily cephALEXin (KEFLEX) 500 mg capsule Indications: Frequent urination Take 1 capsule by mouth three times daily for 7 days. 21 capsule 0 03/22/2022 03/23/2022 Discontinued Completed/Discontinued Medications Medication Drug Class(es) Dates Sig (Normalized) Sig (Original) acetaminophen 500 mg oral tablet (20 sources) take 2 tablets by mouth every eight hours as needed acetaminophen (TYLENOL) 500 mg tablet Take 1,000 mg by mouth every 8 hours as needed for pain. 0 Active Problems Active Problems Problem Classification Problem Date Documented Da te Episodic/Chronic Abdominal pain (4 sources) Left lower quadrant pain; Translations: [Left lower quadrant pain] Episodic Acute myocardial infarction (1 source) Acute non-ST segment elevation myocardial infarction Onset: 8 Chronic Anxiety disorders (20 sources) Anxiety; Translations: [Anxiety disorder, unspecified] Onset: 8 08-06-2018 Chronic Cancer of bladder (20 sources) Malignant tumor of urinary bladder; Translations: [Malignant neoplasm of bladder, unspecified] Onset: 0 08-03-2020 Chronic Cardiac dysrhythmias (20 sources) Longstanding persistent atrial fibrillation; Translations: [Longstanding persistent atrial fibrillation] Onset: 7 10-12-2019 Chronic Chronic obstructive pulmonary disease and bronchiectasis (20 sources) Pulmonary emphysema; Translations: [Emphysema, unspecified] Onset: 7 05-26-2017 Chronic Complications of surgical procedures or medical care (20 sources) 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; Translations: [Other postprocedural cardiac functional disturbances following cardiac surgery] Onset: 3 01-02-2023 Chronic Conduction disorders (20 sources) Long QT syndrome; Translations: [Long QT syndrome] Onset: 7 07-31-2018 Chronic Congestive heart failure; nonhypertensive (20 sources) Chronic diastolic heart failure; Translations: [Chronic diastolic (congestive) heart failure] Onset: 8 08-03-2020 Chronic Coronary atherosclerosis and other heart disease (20 sources) Coronary arteriosclerosis; Translations: [Atherosclerotic heart disease of [place] coronary artery without angina pectoris] Onset: 0 08-03-2020 Chronic Disorders of lipid metabolism (20 sources) Hyperlipidemia; Translations: [Hyperlipidemia, unspecified] Onset: 0 08-03-2020 Chronic Diverticulosis and diverticulitis (1 source) Diverticulitis of intestine; Translations: [Diverticulitis of intestine, part unspecified, without perforation or abscess without bleeding] Chronic E Codes: Fall (2 sources) Fall; Translations: [Unspecified fall, subsequent encounter] Episodic Esophageal disorders (3 sources) Gastroesophageal reflux disease; Translations: [Gastro-esophageal reflux disease without esophagitis] Onset: 3 Chronic Essential hypertension (20 sources) Essential hypertension; Translations: [Essential (primary) hypertension] Onset: 8 08-06-2018 Chronic Fracture of lower limb (4 sources) Closed fracture of shaft of fibula with tibia; Translations: [Closed fracture of right femur] Onset: 3 10-19-2013 Episodic Fracture of neck of femur (hip) (2 sources) Closed fracture of neck of femur; Translations: [Fracture of unspecified part of neck of right femur, subsequent encounter for closed fracture with routine healing] Episodic Genitourinary symptoms and ill-defined conditions (8 sources) Increased frequency of urination; Translations: [Frequency of micturition] Onset: 3 Episodic Heart valve disorders (20 sources) Nonrheumatic mitral (valve) insufficiency; Translations: [Non-rheumatic mitral regurgitation ] Onset: 8 08-03-2020 Chronic Non-Hodgkin`s lymphoma (20 sources) B-cell lymphoma (clinical); 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, extranodal and solid organ sites] Onset: 7 03-05-2017 Chronic Nonspecific chest pain (2 sources) Chest pain; Translations: [Chest pain, unspecified] Onset: 3 10-28-2023 Episodic Nutritional deficiencies (1 source) Vitamin D deficiency; Translations: [Vitamin D deficiency, unspecified] Chronic Osteoporosis (20 sources) Osteoporosis; Translations: [Age-related osteoporosis without current pathological fracture] Onset: 0 07-09-2010 Chronic Other aftercare (20 sources) Long-term current use of anticoagulant; Translations: [halfway (current) use of 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] Onset: 9 08-03-2020 Episodic Other aftercare (1 source) Patient encounter status; Translations: [Other halfway (current) drug therapy] Episodic Other circulatory disease (1 source) Pulmonary congestion ; Translations: [Other specified symptoms and signs involving the circulatory and respiratory systems] Episodic Other circulatory disease (1 source) Personal history of other diseases of the circulatory system; Translations: [S/P ablation of atrial fibrillation] Onset: 3 Episodic Other circulatory disease (1 source) Low blood pressure; Translations: [Hypotension, unspecified] Episodic Other connective tissue disease (2 sources) Swelling of right lower limb; Translations: [Other specified soft tissue disorders] Episodic Other ear and sense organ disorders (1 source) Impacted cerumen in left ear; Translations: [Impacted cerumen, left ear] 07-23-2023 Episodic Other ear and sense organ disorders (1 source) Excessive cerumen in ear canal ; Translations: [Impacted cerumen, right ear] 07-23-2023 Episodic Other female genital disorders (1 source) Pruritus of vagina; Translations: [Other specified noninflammatory disorders of vagina] Episodic Other gastrointestinal disorders (2 sources) History of diverticulitis; Translations: [Personal history of other diseases of the digestive system] Episodic Other gastrointestinal disorders (1 source) Acute diarrhea; Translations: [Diarrhea, unspecified] Episodic Other gastrointestinal disorders (1 source) Abdominal wind pain; Translations: [Gas pain] Episodic Other gastrointestinal disorders (1 source) Loose stool; Translations: [Other fecal abnormalities] 09-11-2023 Episodic Other gastrointestinal disorders (1 source) Other fecal abnormalities; Translations: [Loose stools] Onset: 3 Episodic Other injuries and conditions due to external causes (1 source) Injury of ribs; Translations: [Unspecified injury of thorax, initial encounter] Episodic Other injuries and conditions due to external causes (2 sources) Muscle strain; Translations: [Other injury of unspecified body region, initial encounter] Episodic Other lower respiratory disease (3 sources) Rib pain; Translations: [Pleurodynia] Episodic Other nervous system disorders (20 sources) Peripheral nerve disease ; Translations: [Polyneuropathy, unspecified] Onset: 3 11-21-2022 Chronic Other nervous system disorders (2 sources) Other chronic pain; Translations: [Chronic SI joint pain] Onset: 3 Chronic Other non-traumatic joint disorders (1 source) Pain in right hip joint; Translations: [Pain in right hip] Episodic Other upper respiratory infections (1 source) Viral upper respiratory tract infection; Translations: [Acute upper respiratory infection, unspecified] 07-01-2023 Episodic Stacey-; endo-; and myocarditis; cardiomyopathy (except that caused by tuberculosis or sexually transmitted disease) (20 sources) Hypertrophic obstructive cardiomyopathy; Translations: [Obstructive hypertrophic cardiomyopathy] Onset: 8 08-06-2018 Chronic Peripheral and visceral atherosclerosis (20 sources) Intermittent claudication; Translations: [Peripheral vascular disease, unspecified] Onset: 2 11-21-2022 Chronic Peritonitis and intestinal abscess (2 sources) Infectious disease of abdomen; Translations: [Peritonitis, unspecified] Episodic Residual codes; unclassified (20 sources) Other specified personal risk factors, not elsewhere classified; Translations: [Other specified personal history presenting hazards to health] Onset: 0 08-03-2020 Episodic Residual codes; unclassified (1 source) Postmenopausal state; Translations: [Asymptomatic menopausal state] Episodic Residual codes; unclassified (1 source) H/O: atrial fibrillation; Translations: [Other specified postprocedural states] Episodic Residual codes; unclassified (3 sources) Other specified postprocedural states; Translations: [S/P ablation of atrial fibrillation] Onset: 8 Episodic Screening and history of mental health and substance abuse codes (2 sources) Ex-smoker; Translations: [Personal history of nicotine dependence] Episodic Secondary malignancies (20 sources) Secondary malignant neoplasm of bone; Translations: [Secondary malignant neoplasm of bone] Onset: 0 08-03-2020 Chronic Secondary malignancies (1 source) Secondary malignant neoplasm of bone; Translations: [Malignant neoplasm metastatic to bone (HCC)] Onset: 3 Chronic Spondylosis; intervertebral disc disorders; other back problems (20 sources) Spinal stenosis of lumbar region; Translations: [Low back pain] Onset: 4 02-15-2017 Episodic Unclassified (2 sources) Unknown / UNK(Unknown) Onset: 3 Unclassified (20 sources) Transition of care; Translations: [Transition of care performed with sharing of clinical summary] Onset: 8 08-06-2018 Unclassified (3 sources) Permanent atrial fibrillation; Translations: [Permanent atrial fibrillation with rapid ventricular response (HCC)] Onset: 3 Unclassified (1 source) Longstanding persistent atrial fibrillation; Translations: [Longstanding persistent atrial fibrillation (HCC)] Onset: 9 Urinary tract infections (3 sources) Acute cystitis; Translations: [Acute cystitis with hematuria] Onset: 3 05-06-2023 Episodic Past or Other Problems Problem Classification Problem Date Documented Da te Episodic/Chronic Cardiac dysrhythmias (20 sources) Palpitations; Translations: [Palpitations] Onset: 2 Episodic Conditions associated with dizziness or vertigo (20 sources) Dizziness and giddiness; Translations: [Dizziness and giddiness] Onset: 2 11-21-2022 Episodic Gastrointestinal hemorrhage (20 sources) Lower gastrointestinal hemorrhage; Translations: [Gastrointestinal hemorrhage, unspecified] Onset: 3 11-21-2022 Episodic Other acquired deformities (20 sources) Degenerative spondylolisthesis; Translations: [Spondylolisthesis, site unspecified] Onset: 3 11-21-2022 Episodic Other acquired deformities (1 source) Spondylolisthesis, site unspecified; Translations: [Degenerative spondylolisthesis] Onset: 3 Episodic Other aftercare (2 sources) halfway (current) use of 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; Translations: [Anticoagulant long-term use] Onset: 3 Episodic Other aftercare (1 source) Other long term care phlebotomist (current) drug therapy; Translations: [Encounter for long-term current use of medication] Onset: 3 Episodic Other circulatory disease (1 source) Hypotension, unspecified; Translations: [Hypotension, unspecified hypotension type] Onset: 3 Episodic Other ear and sense organ disorders (1 source) Impacted cerumen, left ear; Translations: [Impacted cerumen of left ear] Onset: 3 Episodic Other ear and sense organ disorders (1 source) Impacted cerumen, right ear; Translations: [Excessive cerumen in ear canal, right] Onset: 3 Episodic Other hematologic conditions (20 sources) Secondary polycythemia; Translations: [Secondary polycythemia] Onset: 0 03-09-2020 Episodic Other hematologic conditions (20 sources) Lesion of spleen; Translations: [Other diseases of spleen] Onset: 2 Episodic Other injuries and conditions due to external causes (20 sources) History of fall; Translations: [History of falling] Onset: 2 11-21-2022 Episodic Other non-traumatic joint disorders (2 sources) Ankle pain; Translations: [Pain in right ankle and joints of right foot] Onset: 4 01-09-2014 Episodic Residual codes; unclassified (20 sources) H/O cardiac surgery; Translations: [Other specified postprocedural states] Onset: 8 08-27-2018 Episodic Residual codes; unclassified (20 sources) History of repair of mitral valve; Translations: [Other specified postprocedural states] Onset: 8 08-27-2018 Episodic Results Test Name Value Interpretation Reference Range Facil ity Vital Signs Date Time Vital Sign Value Performing Clinician Faci lity 10-28-2023 21:58-0500 Diastolic blood pressure 102 mm[Hg] Alisia Pacheco MD Work Phone: [facility] Encounters Encounter Date Encounter Type Care Provider Facility Start: 12-02-2023 End: 12-02-2023 ambulatory ALISIA PACHECO Facility:[facility] Start: 10-28-2023 End: 10-29-2023 Emergency department patient visit ALISIA~[id number] JUNIOR CRUMP [facility] Start: 10-28-2023 End: 10-28-2023 Emergency department patient visit Alisia Pacheco MD Work Phone: [facility] Emergency Room Procedures Date Procedure Procedure Detail Performing Clinician Start: 10-28-2023 Assay of troponin quantitative Abe VARGAS Work Phone: Start: 10-28-2023 Basic metabolic pane l calcium total Jen Yung MD Work Phone: Start: 10-28-2023 CBC W Auto Different ial panel - Blood Jen Yung MD Work Phone: Start: 10-28-2023 Radiologic exam ches t 2 views Jen Yung MD Work Phone: Start: 05-06-2023 Urnls dip stick/tabl et rgnt auto w/o microscopy Ronen Valentin PRODUCT SAFETY ENGINEER Work Phone: Start: 02-16-2023 Ecg routine ecg w/le ast 12 lds w/i&r Tex Johnson CHIEF ORDER DISPATCHER.PRODUCT SAFETY ENGINEER Work Phone: Start: 12-20-2022 Urnls dip stick/tabl et rgnt auto w/o microscopy Lou Pascual CHIEF ORDER DISPATCHER.PRODUCT SAFETY ENGINEER Work Phone: Start: 11-21-2022 Ecg routine ecg w/le ast 12 lds w/i&r Bebeto Chaudhary MD Work Phone: Start: 09-22-2022 Noninvasive ear/puls e oximetry multiple deter Aaliyah Stone PA-C Work Phone: Start: 05-01-2022 Spmtry w/vc expirato ry wendy w/wo mxml vol vntj Aaliyah Stone PA-C Work Phone: Start: 04-08-2022 Urnls dip stick/tabl et rgnt auto w/o microscopy Jerad Bales CHIEF ORDER DISPATCHER.COMMERCIAL LOAN ANALYST Work Phone: Start: 04-02-2022 Us abdominal real ti me w/image limited Maria Isabel Tay MD Work Phone: Start: 03-22-2022 Urnls dip stick/tabl et rgnt auto w/o microscopy Pina Singleton CHIEF ORDER DISPATCHER.PRODUCT SAFETY ENGINEER Work Phone: Plan of Treatment Date Care Activity Detail Author Start: 02-07-2026 Diabetes Screening Diabetes Screenin tyler [facility] Start: 11-10-2025 DIABETES SCREEN DIABETES SCREEN [facility] Start: 11-10-2025 Diabetes Screening Diabetes Screenin g [facility] Start: 07-10-2025 DIABETES SCREEN DIABETES SCREEN [facility] Start: 04-02-2025 DIABETES SCREEN DIABETES SCREEN [facility] Start: 10-28-2024 Falls Risk Assessment Falls Risk Ass essment [facility] Start: 10-28-2024 Hypertension/CHF/CAD Annual BMP Blood Test Hypertension/CHF/CAD Annual BMP Blood Test [facility] Start: 10-20-2024 Covid-19 Vaccine () Covid-19 Vaccine () [facility] Immunizations Immunization Date Immunization Notes Care Provider Sandra leslie 09-12-2021 COVID-19 original vaccine, full dose, monovalent (MODERNA) Respiratory Wstr Work Phone: [facility] Work Phone: 09-02-2021 influenza, high-dose , quadrivalent vaccine (FLUZONE HIGH DOSE QUADRIVALENT) Daniel Mcclelland MD Work Phone: [facility] 09-02-2021 influenza virus vaccine, unspecified formulation Jerad Bales COMMERCIAL LOAN ANALYST Work Phone: [facility] 12-21-2020 COVID-19 vaccine, fu ll dose (MODERNA) Daniel Mcclelland MD Work Phone: [facility] Work Phone: 11-23-2020 COVID-19 vaccine, fu ll dose (MODERNA) Daniel Mcclelland MD Work Phone: [facility] Work Phone: 07-16-2020 influenza, high-dose , quadrivalent vaccine (FLUZONE HIGH DOSE QUADRIVALENT) Daniel Mcclelland MD Work Phone: [facility] 07-11-2019 influenza, high dose seasonal, preservative-free Daniel Mcclelland MD Work Phone: [facility] 08-03-2018 influenza, high dose seasonal, preservative-free Daniel Mcclelland MD Work Phone: [facility] 08-18-2017 influenza, high dose seasonal, preservative-free Daniel Mcclelland MD Work Phone: [facility] 09-01-2015 pneumococcal conjuga te vaccine, 13 valent Daniel Mcclelland MD Work Phone: [facility] 07-17-2015 influenza, seasonal, injectable Daniel Mcclelland MD Work Phone: [facility] 08-23-2013 influenza, high dose seasonal, preservative-free Daniel Mcclelland MD Work Phone: [facility] 08-23-2013 influenza, seasonal, injectable Bebeto Chaudhary MD Work Phone: [facility] Work Phone: 08-23-2013 influenza, seasonal, injectable, preservative free Daniel Mcclelland MD Work Phone: [facility] 07-19-2012 tetanus and diphther ia toxoids, adsorbed, preservative free, for adult use (2 Lf of tetanus toxoid and 2 Lf of diphtheria toxoid) Daniel Mcclelland MD Work Phone: [facility] 07-17-2012 influenza virus vaccine, unspecified formulation Daniel Mcclelland MD Work Phone: [facility] Work Phone: 06-13-2010 pneumococcal polysaccharide vaccine, 23 valent Daniel Mcclelland MD Work Phone: [facility] Work Phone: 11-02-1994 tetanus and diphther ia toxoids, adsorbed, preservative free, for adult use (2 Lf of tetanus toxoid and 2 Lf of diphtheria toxoid) Daniel Mcclelland MD Work Phone: [facility] Work Phone: Payers Date Payer Category Payer Medicare AETNA MEDICARE A ETNA MEDICARE PPO [id number] 2021-Present [phone] [address] [place] [address] PPO [id number] 2021 Medicare [id number] 2014 Medicare 1940 Unknown [id number] 1940 Unknown [id number] Unknown [id number] Social History Date Type Detail Facility Start: 04-28-2019 End: 10-28-2023 Tobacco smoking status NHIS Ex-smoker [facility] Start: 1956 End: 07-02-2005 History of tobacco use Current smoker [facility] Work Phone: Start: 1956 End: 07-02-2005 History of tobacco use Cigarette Smoker [facility] Work Phone: Start: 02-09-2022 End: 10-28-2023 Alcohol intake Current drinker of alcohol (finding) [facility] Start: 06-10-2018 History SDOH Alcohol Comment occasional [facility] Start: 07-02-2017 End: 07-10-2022 Tobacco Comment No smoking in childhood home. Spouse quit smoking years before patient did. [facility] Start: 1940 Sex Assigned At Not on file [facility] Start: 01-30-2022 End: 09-22-2022 Exposure to SARS-CoV-2 (event) Not sure [facility] Start: 04-28-2019 End: 04-07-2023 Cigarettes smoked current (pack per day) - Reported 1 [facility] Work Phone: Start: 04-28-2019 End: 10-28-2023 Tobacco use and exposure Smokeless tobacco non-user [facility] Start: 05-06-2023 Tobacco smoking stat us WVIS Never smoked tobacco [facility] Start: 04-07-2023 End: 07-01-2023 Gender identity Not on file [facility] Work Phone: Adult Depression Screening Assessment 0 [facility] Work Phone: Start: 10-05-2023 Alcohol intake Ex-drinker (finding) [facility] Medical Equipment Procedure Code Equipment Code Equipment Original Text Equipment Identifier Dates [place] Thk1.65mm P tfe 4x.5in Cardiovascular Sterile - [id number] Start: 07-30-2018 Clinical Notes 08-01-2018 to 12-02-2023 Discharge SAM Manrique - 10/28/2023 5:50 PM SAM García - 10/28/2023 5:45 PM ESTTelephone Jenny - Linda Elmore RN - 10/21/2023 11:44 AM ESTAttachments Note Date & Type Note Facility 12-02-2023 Note HNO ID: [id number] Author: ZHOU CAMACHO PA-C Service: ? Author Type: Physician Pediatric Dental Hygienist Type: Progress Notes Filed: 12/02/2023 12:38 Note Text: This note was created using ServiceNowriter. Subjective Michelle Sharpe is a 83 year old female. HPI Patient presents with urinary frequency over the past 2 days. She feels like she has had to go every 30 minutes. Denies dysuria. No blood in urine. She is on Coumadin. She denies back pain or abdominal pain. No fever. No nausea or vomiting. Denies recurrent UTIs. Review of Systems Constitutional: Negative. HENT: Negative. Respiratory: Negative. Cardiovascular: Negative. Gastrointestinal: Negative. Genitourinary: Positive for frequency. Negative for dysuria, hematuria and urgency. Musculoskeletal: Negative. All other systems reviewed and are negative. 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) RF catheter ablation of AV node with consequent CHB; already had PPM in place Essential hypertension First degree atrioventricular block History of ankle fracture right; no surgery needed as had started to heal by the time had Xray HLD (hyperlipidemia) HOCM (hypertrophic obstructive cardiomyopathy) (HCC) IBS (irritable bowel syndrome) with diarrhea and urgency Impaired fasting glucose 10/06/2008 LBBB (left bundle branch block) ekg 06/27/20 Long Q-T syndrome 01/21/2017 halfway (current) use of 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 COUMADIN MR (mitral regurgitation) with assymetric hypertrophic cardiomyopathy 09/2001 Nonrheumatic mitral valve regurgitation Osteoporosis 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 Monson follows for benign tumor removed 2002 Current Outpatient Medications Medication Sig Dispense Refill fluticasone-salmeterol (ADVAIR, WIXELA) 250-50 mcg/dose inhaler Inhale 1 Puff as instructed two times a day. 1 Each 5 acetaminophen (TYLENOL) 500 mg tablet Take 1,000 mg by mouth every 8 hours as needed for pain. lisinopril (ZESTRIL) 20 mg tablet Take 1 tablet by mouth once daily. As directed gabapentin (NEURONTIN) 300 mg capsule Take 1 capsule by mouth twice daily for 180 days. 60 capsule 5 albuterol HFA (VENTOLIN HFA) 90 mcg/actuation inhaler Inhale 2 Puffs as instructed every 4 hours as needed for wheezing/shortness of breath. 1 Each 5 warfarin (COUMADIN) 3 mg tablet Take 0.5 tablets by mouth once daily. famotidine (PEPCID) 20 mg tablet Take 1 tablet by mouth once daily. 90 tablet 3 furosemide (LASIX) 40 mg tablet Take 40 mg by mouth once daily. therapeutic multivitamin (THERA VITAMIN) tablet Take 1 tablet by mouth daily with breakfast. Cholecalciferol, Vitamin D3, 1,000 unit cap Take 1 capsule by mouth once daily. 0 cephALEXin (KEFLEX) 500 mg capsule Take 1 capsule by mouth two times a day for 7 days. 14 capsule 0 HYDROcodone-acetaminophen (NORCO) 5-325 mg per tablet Take 1 tablet by mouth every 6 hours as needed. (Patient not taking: Reported on 12/02/2023) OXYGEN, HOME THERAPY, Inhale 2 L/min as instructed as directed. At night Current Facility-Administered Medications Medication Dose Route Frequency Provider Last Rate Last Admin denosumab 60 mg injection (PROLIA) 60 mg SUBCUTANEOUS Q 6 MONTH Jerad Bales, CHIEF ORDER DISPATCHER.COMMERCIAL LOAN ANALYST 60 mg at 08/24/23 1558 PAST SURGICAL HISTORY Procedure Laterality Date ABLATE AV NODE FUNCTION 01/02/2023 RF catheter ablation of AV node; indication: drug refractory atrial fibrillation; CCAG Dr. Chaudhary BLADDER SURGERY HX 2004 tumor removed from bladder CARDIOVERSION ELECTIVE ARRHYTHMIA INTERNAL SPX 04/2019 CARDIOVERSION ELECTIVE ARRHYTHMIA INTERNAL SPX 04/24/2020 [facility] CARDIOVERSION ELECTIVE ARRHYTHMIA INTERNAL SPX 05/2017 CARDIOVERSION ELECTIVE ARRHYTHMIA INTERNAL SPX 10/2017 CARDIOVERSION ELECTIVE ARRHYTHMIA INTERNAL SPX 10/2018 HEART VALVE REPAIR 07/2018 SEPTAL MYECTOMY AND MVP WITH ANNULOPLASTY WITH A #33 RM BAND, B/L PULMONARY VEIN ISOLATION WITH MULTIPLE OCCASIONA SOF THE ARTICURE RADIOFREQUENCY CLAMP AND CLIPPING OF THE LEF (more content not included)... [facility] 10-28-2023 Hospital Discharge instructions SAM Anders - 10/28/2023 9:58 PM EST Follow-up with your elementary special education teacher when you get home, return to the emergency department if you are having any worsening symptoms. documented in this encounter [facility] 10-28-2023 History of Present illness Narrative [facility] Patient Name: Michelle Sharpe Initial Evaluation: 10/28/2023 : 1940 Patient's PCP: Pcp Unknown Physician PIT JEANMARIE: SAM Maldonado PIT Evaluation Note Michelle Sharpe is a 83 y.o. female who presents with chief complaint of chest discomfort. Patient states that she was standing up off the commode earlier today and got pain on the left side of her chest to her arm and into her back. She states it lasted 5 minutes at the very most she states that she is pain-free at this time now she does have a history of atrial fibrillation has a pacemaker and takes Coumadin. She states that she is pain-free at this time. Patient is visiting family right now over the holidays she is from [facility]. We will obtain CBC, BMP, troponin, EKG, PT/INR patient to be seen on the major side of the department so that her pacemaker can be interrogated. Vitals are as noted below: There were no vitals filed for this visit. PIT process initiated and next provider will perform detailed history and physical exam. ED Note HPI CC: Chief Complaint Patient presents with Chest Pain Pt was having a bowel movement when felt a brief sudden sharp pain in her chest. Does have a [employer] pacer in place, it is NOT a defib. Denies SOB or dizziness. HPI: Michelle Sharpe is a 83 y.o. female past medical history significant for coronary artery disease, hypertension, valvular disease of the heart as well as atrial fibrillation with ablations as well as pacemaker placement. Patient presents to the emergency department for evaluation of left-sided chest pain. She states that she was on the commode earlier this evening and went to stand up off the commode and put all her weight on her walker and suddenly had sharp left-sided chest pain that radiated through to her back and down her arm she states that lasted approximately 5 minutes. She states that she has not had the pain since. She feels fine ever since. Her daughter brought her to the emergency department. She is visiting her daughter from out of town and gets all her care up at [place] and the [facility] where she lives. ROS: All other systems reviewed and are negative except as noted. Past History: Past Medical History: Diagnosis Date Coronary artery disease Hypertension Past Surgical History: Procedure Laterality Date CARDIAC SURGERY JOINT REPLACEMENT Social History Tobacco Use Smoking status: Former Types: Cigarettes Smokeless tobacco: Never Substance Use Topics Alcohol use: Yes Drug use: Never No family history on file. No Known Allergies No current outpatient medications Physical Exam: Patient Vitals for the past 24 hrs: BP Temp Temp src Pulse Resp SpO2 Height Weight 12/27/23 2158 (!) 160/102 -- -- 58 16 95 % -- -- 10/28/23 1756 -- -- -- -- 18 -- 1.702 m (67 ) 62.6 kg (138 lb) 10/28/23 1752 (!) 174/92 36.7 C (98.1 F) Oral 59 -- 93 % -- -- CONSTITUTIONAL: Well-appearing and well-nourished. 83-year-old female sitting up in bed no acute distress, patient is well-nourished EYES: No conjunctival injection, no icterus. HENT: External ears normal, external nose normal. RESPIRATORY: Normal chest excursion with respiration, no stridor. CARDIOVASCULAR: Regular rate and rhythm no reproducible anterior chest wall tenderness no cyanosis ABDOMEN:Soft, Non Tender NEUROLOGICAL: Awake, alert and oriented. PSYCHOLOGICAL: The patient's mood and manner are appropriate. INTEGUMENTARY: Warm and dry. No rash noted. MUSCULOSKETAL: pulses 2+ and equal in bilateral upper and lower extremities MDM: 83-year-old female presents emergency department for evaluation of chest pain as described above upon arrival the patient no longer has pain. EKG shows a ventricularly paced rhythm but is otherwise unremarkable. Initial troponin is 18 repeat delta troponin is 25. Chest x-ray is negative for acute cardiopulmonary findings. I did have the patient's pacemaker interrogated she did not have an event recorded at that time of her discomfort. Since the patient continues to be pain-free has no other obvious abnormality at this time I do believe that her pain was secondary to a muscle spasm while trying to stand up off the commode and using the walker to do so. I have discussed with the patient as well as her daughter at bedside that the best course of action would be to follow-up with the elementary special education teacher when they get home and to return to the emergency department if she has any other persistent symptoms but if she is pain-free at this time there is no reason to admit at this time. They verbalized agreement understanding with this and are comfortable with this and would prefer not to be admitted at this time anyway. They are discharged with strong return precautions. Supervising Physician Dr. Eduardo biggs XR Chest 2 Views Final Result Nonacute study. Cardiomegaly Negative for lobar consolidation, effusion, or pneumothorax. -------- FINAL REPORT -------- Dictated By: Chadwick Ovalles Dictated Date: 10/28/2023 19:33 Assigned Physician: Chadwick Ovalles Reviewed and Electronically Signed By: Chadwick Ovalles Signed Date: 10/28/2023 19:35 Workstation ID: [id number] Transcribed By: Self Edit Transcribed Date: 10/28/2023 19:33 Labs Reviewed BASIC METABOLIC PANEL - Abnormal Result Value Sodium 141 Potassium 4.0 Chloride 107 CO2 25 Anion Gap 9 Glucose 86 BUN 20 Creatinine 0.77 eGFR 76 BUN/Creatinine Ratio 26.0 (*) Calcium 9.3 B-TYPE NATRIURETIC PEPTIDE - Abnormal BNP 610 (*) Narrative: <100: CHF is unlikely 100-400: Possible left ventricular dysfunction-unlikely acute decompensation >400: Suspicious for decompensated heart failure. CBC WITH AUTO DIFFERENTIAL - Abnormal WBC 8.5 RBC 5.40 (*) Hemoglobin 14.7 Hematocrit 46.3 MCV 85.7 MCH 27.2 MCHC 31.7 RDW 15.9 (*) Platelets 245 MPV 10.0 Neutrophils Relative 74.1 Lymphocytes Relative 15.0 (*) Monocytes Relative 7.3 Eosinophils Relative 2.1 Basophils Relative 0.9 Immature Granulocytes Relative 0.6 Neutrophils Absolute 6.28 Lymphocytes Absolute 1.27 Monocytes Absolute 0.62 Eosinophils Absolute 0.18 Basophils Absolute 0.08 Immature Granulocytes Absolute 0.05 TROPONIN I HIGH SENSITIVITY - Abnormal High Sensitivity Troponin I 18 (*) TROPONIN I HIGH SENSITIVITY - Abnormal High Sensitivity Troponin I 25 (*) CBC AND DIFFERENTIAL Narrative: The following orders were created for panel order CBC and differential. Procedure Abnormality Status --------- ------ CBC auto differential[[id number]] Abnormal Final result Please view results for these tests on the individual orders. Medications - No data to display Clinical Impressions as of 10/28/232245 Chest pain, unspecified type PDMP Reviewed by: on IMPRESSION: 1. Chest pain, unspecified type SAM Anders 10/28/232248 documented in this encounter [facility] 10-21-2023 Miscellaneous Notes Patient seen in office 10/20/2023. Linda Elmore RN Pt called in asking if pain medication had been sent, as she had someone that could pick it up. Pt asking if she could be called back if provider sends medication in for her. I let Pt know that provider had not gotten to it yet. Pt was scheduled with Dr Pacheco tomorrow at 200 pm. Patient calls and states that she continues to have back pain. Patient states that she has been taking tylenol and gabapentin which has not helped her out at all. Patient states that her daughter who used to work at a pharmacy in [place] was suggesting that patient asking for Tylenol 3 for pain. Patient asking if provider can send in this prescription to [facility]. Please review and advise, Linda Elmore RN documented in this encounter [facility] 10-20-2023 Note HNO ID: [id number] Author: ALISIA PACHECO MD Service: ? Author Type: Physician Type: Progress Notes Filed: 11/06/2023 00:09 Note Text: This note was created using [employer] vascular solutionter. Subjective Michelle Sharpe is a 83 year old female. Patient presents with: Established Patient: Back pain SUBJECTIVE: Michelle Sharpe is a 83 year old year old lady here today for follow up appointment for review of medical conditions. Noted issues with back and also osteoporosis. Getting Prolia shots. BMD due August 2024 for follow up. Recommended against surgery because of risks since bones weak. Lower back pain ongoing. Gabapentin and Tylenol not adequate. Follows with Dr. Rodríguez. Back injections help for just 2 to 3 weeks. Gets shots every 3 months. Oxycodone has not helped much. The [place] patch had noted helped much either so stopped this after finished the 09/02. Has not taken oxycodone much since was not helping much. Still has tressa hydrocodone. Asked about Tylenol with codeine. Pain with walking Pain okay when laying down and when sitting. 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) RF catheter ablation of AV node with consequent CHB; already had PPM in place Essential hypertension First degree atrioventricular block History of ankle fracture right; no surgery needed as had started to heal by the time had Xray HLD (hyperlipidemia) HOCM (hypertrophic obstructive cardiomyopathy) (HCC) IBS (irritable bowel syndrome) with diarrhea and urgency Impaired fasting glucose 10/06/2008 LBBB (left bundle branch block) ekg 06/27/20 Long Q-T syndrome 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 COUMADIN MR (mitral regurgitation) with assymetric hypertrophic cardiomyopathy 09/2001 Nonrheumatic mitral valve regurgitation Osteoporosis Pacemaker-dependent due 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 Monson follows for benign tumor removed 2002 Current Outpatient Medications Medication Sig HYDROcodone-acetaminophen (NORCO) 5-325 mg per tablet Take 1 tablet by mouth every 6 hours as needed. fluticasone-salmeterol (ADVAIR, WIXELA) 250-50 mcg/dose inhaler Inhale 1 Puff as instructed two times a day. acetaminophen (TYLENOL) 500 mg tablet Take 1,000 mg by mouth every 8 hours as needed for pain. lisinopril (ZESTRIL) 20 mg tablet Take 1 tablet by mouth once daily. As directed gabapentin (NEURONTIN) 300 mg capsule Take 1 capsule by mouth twice daily for 180 days. albuterol HFA (VENTOLIN HFA) 90 mcg/actuation inhaler Inhale 2 Puffs as instructed every 4 hours as needed for wheezing/shortness of breath. warfarin (COUMADIN) 3 mg tablet Take 0.5 tablets by mouth once daily. OXYGEN, HOME THERAPY, Inhale 2 L/min as instructed as directed. At night famotidine (PEPCID) 20 mg tablet Take 1 tablet by mouth once daily. furosemide (LASIX) 40 mg tablet Take 40 mg by mouth once daily. therapeutic multivitamin (THERA VITAMIN) tablet Take 1 tablet by mouth daily with breakfast. Cholecalciferol, Vitamin D3, 1,000 unit cap Take 1 capsule by mouth once daily. Current Facility-Administered Medications Medication Dose Route Frequency denosumab 60 mg injection (PROLIA) 60 mg SUBCUTANEOUS Q 6 MONTH Review of Systems Objective BP 142/82 Pulse 60 Temp 37.1 ?C (98.7 ?F) Resp 18 Wt 61.7 kg (136 lb) SpO2 96% BMI 22.63 kg/m? Physical Exam Constitutional: Appearance: Normal appearance. Pulmonary: Effort: Pulmonary effort is normal. Musculoskeletal: Back: Comments: Not tender to palpation over spine Neurological: Mental Status: She is alert. Assessment and Plan Encounter Diagnosis ICD-10-CM 1. Spinal stenosis of lumbar region with radiculopathy M48.061 CONSULT TO PAIN MGT M54.16 2. Chronic SI joint pain M53.3 CONSULT TO PAIN MGT G89.29 Tender bilaterally 3. Degenerative spondylolisthesis M43.10 CONSULT TO PAIN MGT Will get second opinion from Dr. Burns regarding options for treating pain. She wonders if could get ablation done if could help with pain (more content not included)... [facility] 10-05-2023 Note HNO ID: [id number] Author: Peter Lee MD Service: ? Author Type: Physician Type: Progress Notes Filed: 10/06/2023 11:48 PM Note Text: This note was created using NoteWriter. Subjective Michelle Sharpe is a 83 year old female. She had been dealing with recurrent loose diarrhea, non bloody for 2 months, reminiscent of previous irritable bowel. She had been seen by [employer] [employer] one month ago, and had been [facility]. Stool tests were ordered, but for some reason, patient was waiting for a specimen container all this time. She was taking imodium as needed with good result. Review of Systems Constitutional: Negative for appetite change, fatigue, fever and unexpected weight change. HENT: Negative. Respiratory: Negative. Gastrointestinal: Negative for abdominal pain, blood in stool, constipation, nausea, rectal pain and vomiting. Genitourinary: Negative for difficulty urinating and dysuria. ACTIVE PROBLEM LIST Essential Hypertension Osteoporosis Nonrheumatic Mitral (Valve) Insufficiency Long Q-T Syndrome Small B-Cell Lymphoma of Extranodal Site Excluding Spleen and Other Solid Organs (Hcc) Longstanding persistent atrial fibrillation Pulmonary Emphysema (Hcc) Small B-Cell Lymphoma of Extranodal Site (Hcc) Hocm (Hypertrophic Obstructive Cardiomyopathy) (Hcc) Copd (Chronic Obstructive Pulmonary Disease) (Hcc) Anxiety Transition of Care Performed With Sharing of Clinical Summary S/P Ventricular Septal Myectomy Status Post Mitral Valve Repair Secondary Polycythemia Chronic Diastolic Heart Failure (Hcc) Hyperlipidemia Left Bundle Branch Block 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 of Anticoagulant Therapy 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) Arteriosclerosis of Coronary Artery Atypical Atrial Flutter (Hcc) First Degree Atrioventricular Block Lbbb (Left Bundle Branch Block) At Risk for Stroke Anticoagulant Long-Term Use [place] Bone Metastasis Bradycardia Claudication of Both Lower Extremities (Hcc) Degenerative Spondylolisthesis Dizziness and Giddiness History of Fall Lower Gastrointestinal Hemorrhage Palpitation Peripheral Nerve Disease Peripheral Neuropathy Peripheral Vascular Disease, Unspecified (Hcc) S/P Placement of Cardiac Pacemaker Tachycardia-Bradycardia Syndrome (Hcc) Spinal Stenosis of Lumbar Region With Radiculopathy Permanent Atrial Fibrillation With Rapid Ventricular Response (Hcc) Permanent Atrial Fibrillation (Hcc) Complete Atrioventricular Block Due to Atrioventricular Miguel Ablation (Hcc) Pacemaker-Dependent Due to [place] Cardiac Rhythm Insufficient to Support Life Current Outpatient Medications Medication Sig fluticasone-salmeterol (ADVAIR, WIXELA) 250-50 mcg/dose inhaler Inhale 1 Puff as instructed two times a day. acetaminophen (TYLENOL) 500 mg tablet Take 1,000 mg by mouth every 8 hours as needed for pain. lisinopril (ZESTRIL) 20 mg tablet Take 1 tablet by mouth once daily. As directed gabapentin (NEURONTIN) 300 mg capsule Take 1 capsule by mouth twice daily for 180 days. albuterol HFA (VENTOLIN HFA) 90 mcg/actuation inhaler Inhale 2 Puffs as instructed every 4 hours as needed for wheezing/shortness of breath. warfarin (COUMADIN) 3 mg tablet Take 0.5 tablets by mouth once daily. OXYGEN, HOME THERAPY, Inhale 2 L/min as instructed as directed. At night famotidine (PEPCID) 20 mg tablet Take 1 tablet by mouth once daily. furosemide (LASIX) 40 mg tablet Take 40 mg by mouth once daily. therapeutic multivitamin (THERA VITAMIN) tablet Take 1 tablet by mouth daily with breakfast. Cholecalciferol, Vitamin D3, 1,000 unit cap Take 1 capsule by mouth once daily. Current Facility-Administered Medications Medication Dose Route Frequency denosumab 60 mg injection (PROLIA) 60 mg SUBCUTANEOUS Q 6 MONTH Objective BP 114/70 (BP Site: Left Arm, BP Position: Sitting, BP Cuff Size: Large Adult) Pulse 60 Temp 36.8 ?C (98.2 ?F) (Temporal) Resp 16 Wt 59 kg (130 lb) BMI 21.63 kg/m? Physical Exam Constitutional: General: She is not in acute distress. HENT: Mouth/Throat: Mouth: Mucous membranes are moist. Pharynx: Oropharynx is clear. Eyes: General: No scleral icterus. Conjunctiva/sclera: Conjunctivae normal. Pulmonary: Effort: Pulmonary effort is normal. Abdominal: General: Abdomen is flat. Bowel sounds are normal. There is no distension. Palpations: Abdomen is soft. Tenderness: There is no abdominal tenderness. Neurological: Mental Status: She is alert. Comments: On wheelchair due to chronic back pain. Assessment and Plan 1. Diarrhea, unspecified type - ICD9: 787.91, ICD10: R19.7 - She was instructed to go to lab tomorrow and bulk picker specimen containers. - Continue imodium as needed. - Avoid dairy for now, or take Lactaid as needed. Peter Lee MD [facility] 10-03-2023 Note HNO ID: [id number] Author: Daniel Mcclelland MD Service: ? Author Type: Physician Type: Progress Notes Filed: 10/03/2023 3:18 PM Note Text: Express Care Triage Note: Patient presents to the express care with complaint of persistent loose stool and gas. She had a visit with IM 1 month ago for this. Stool studies were ordered and planned GI consult if not improving. She uses imodium. She has no pain. Patient will arrange to have stool tests collected next week when the lab open and schedule with GI. [facility] 09-23-2023 Note HNO ID: [id number] Author: Aaliyah Stone PA-C Service: ? Author Type: Physician Pediatric Dental Hygienist Type: Progress Notes Filed: 09/23/2023 2:29 PM Note Text: Patient: Michelle Sharpe PCP: Alisia Pacheco MD CC: follow up HPI: Michelle Sharpe 83 year old female former smoker, 58 pack years (quitting 2004) with PMH significant for mitral regurgitation, HOCM, bradycardia s/p pacemaker, HTN, hyperlipidemia, AFib, chronic diastolic heart failure, small B-cell lymphoma with bone metastasis, and COPD. Current therapy consists of Wixela with as needed Albuterol. Today, patient states she is doing well from a respiratory standpoint. No cough or wheezing. SOB with minimal exertion. Patient is also limited physically from back pain. No lower extremity edema. Follows with [facility]. Is not wearing supplemental oxygen at night. 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) RF catheter ablation of AV node with consequent CHB; already had PPM in place Essential hypertension First degree atrioventricular block History of ankle fracture right; no surgery needed as had started to heal by the time had Xray HLD (hyperlipidemia) HOCM (hypertrophic obstructive cardiomyopathy) (HCC) IBS (irritable bowel syndrome) with diarrhea and urgency Impaired fasting glucose 10/06/2008 LBBB (left bundle branch block) ekg 06/27/20 Long Q-T syndrome 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 COUMADIN MR (mitral regurgitation) with assymetric hypertrophic cardiomyopathy 09/2001 Nonrheumatic mitral valve regurgitation Osteoporosis 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 Monson follows for benign tumor removed 2002 Allergies: Zyloprim [Allopurin* Rash Environmental [Othe* Intolerance Comment:rhinitis Tramadol Other: See Comments Comment:made patient woozy/dizzy carbamide peroxide (DEBROX) 6.5 % otic solutionUse 5 Drops in both ears twice daily.Disp: 15 mLRfl: 0 acetaminophen (TYLENOL) 500 mg tabletTake 1,000 mg by mouth every 8 hours as needed for pain.Disp: Rfl: lisinopril (ZESTRIL) 20 mg tabletTake 1 tablet by mouth once daily. As directedDisp: Rfl: gabapentin (NEURONTIN) 300 mg capsuleTake 1 capsule by mouth twice daily for 180 days.Disp: 60 capsuleRfl: 5 albuterol HFA (VENTOLIN HFA) 90 mcg/actuation inhalerInhale 2 Puffs as instructed every 4 hours as needed for wheezing/shortness of breath.Disp: 1 EachRfl: 5 fluticasone (FLONASE) 50 mcg/actuation nasal sprayUse 2 Sprays in each nostril once daily. Rinse mouth after use.Disp: 1 EachRfl: 5 warfarin (COUMADIN) 3 mg tabletTake 0.5 tablets by mouth once daily.Disp: Rfl: OXYGEN, HOME THERAPY,Inhale 2 L/min as instructed as directed. At nightDisp: Rfl: famotidine (PEPCID) 20 mg tabletTake 1 tablet by mouth once daily.Disp: 90 tabletRfl: 3 nystatin-triamcinolone (MYCOLOG) ointmentApply sparingly to perineum twice daily for irritation/infection.Disp: 30 gRfl: 0 fluticasone-salmeterol (ADVAIR, WIXELA) 250-50 mcg/dose inhalerInhale 1 Puff as instructed twice daily.Disp: 1 EachRfl: 5 furosemide (LASIX) 40 mg tabletTake 40 mg by mouth once daily.Disp: Rfl: therapeutic multivitamin (THERA VITAMIN) tabletTake 1 tablet by mouth daily with breakfast.Disp: Rfl: Cholecalciferol, Vitamin D3, 1,000 unit capTake 1 capsule by mouth once daily.Disp: Rfl: 0 Social History Tobacco Use Smoking status: Former Packs/day: 1.00 Years: 58.00 Additional pack years: 0.00 Total pack years: 58.00 Types: Cigarettes Start date: 1955 Quit date: 07/02/2005 Years since quittin.2 Smokeless tobacco: Never Tobacco comments: No smoking in childhood home. Spouse quit smoking years before patient did. Vaping Use Vaping Use: Never used Substance Use Topics Alcohol use: Yes Comment: occasional Drug use: No Family History Problem Relation Age of Onset Hypertension Father other (allergic reaction) Father from allergic reaction Stroke Mother ot (more content not included)... [facility] 09-11-2023 Miscellaneous Notes noted Patient phoned asking pcp what should she do with the metoprolol. Reports she hasn't taken it yet. Patient thinks pcp prescribed it. Advised patient to tell me what doctor's name is on the bottle. Patient reports Dr. Jeffrey's name is on the bottle. Dr. Jeffrey is with [facility]. Advised patient to call Dr. Jeffrey with this question and let us know if he wants her to take it. Patient agreeable. documented in this encounter [facility] 09-11-2023 Note HNO ID: [id number] Author: Jerad Bales APRN.COMMERCIAL LOAN ANALYST Service: ? Author Type: Nurse Specialist Type: Progress Notes Filed: 09/21/2023 2:34 PM Note Text: SUBJECTIVE: Shingrix Vaccine(1 of 2) Never done RSV Vaccine(1 - 1-dose 60+ series) Never done DTaP,Tdap,Td Vaccine(1 - Tdap) due on 07/20/2012 LDL Cholesterol due on 08/23/2019 Covid-19 Vaccine( season) due on 07/03/2023 ANNMARIE Sharpe is a 83 year old female. 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) (Hcc) Copd (Chronic Obstructive Pulmonary Disease) (Hcc) Anxiety Transition of Care Performed With Sharing of Clinical Summary S/P Ventricular Septal Myectomy Status Post Mitral Valve Repair Secondary Polycythemia Chronic Diastolic Heart Failure (Hcc) Hyperlipidemia Left Bundle Branch Block 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 of Anticoagulant Therapy 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) Arteriosclerosis of Coronary Artery Atypical Atrial Flutter (Hcc) First Degree Atrioventricular Block Lbbb (Left Bundle Branch Block) At Risk for Stroke Anticoagulant Long-Term Use Splenic Lesion Bone Metastasis Bradycardia Claudication of Both Lower Extremities (Hcc) Degenerative Spondylolisthesis Dizziness and Giddiness History of Fall Lower Gastrointestinal Hemorrhage Palpitation Peripheral Nerve Disease Peripheral Neuropathy Peripheral Vascular Disease, Unspecified (Hcc) S/P Placement of Cardiac Pacemaker Tachycardia-Bradycardia Syndrome (Hcc) Spinal Stenosis of Lumbar Region With Radiculopathy Permanent Atrial Fibrillation With Rapid Ventricular Response (Hcc) Permanent Atrial Fibrillation (Hcc) Complete Atrioventricular Block Due to Atrioventricular Miguel Ablation (Hcc) Pacemaker-Dependent Due to [place] Cardiac Rhythm Insufficient to Support Life Presents regarding occasional loose stool. 1 a day or less. Notes has used Tagamet which was helpful. She reports prior history of irritable bowel. She notes occasional nausea. No vomiting diarrhea or constipation. No BRBPR black or tarry stools. Notes a loose stool when in the hospital in the recent past. She notes decreased diarrhea over the last month and worse the last 2 days. No known change in diet. Afebrile. No abdominal pain, nausea, vomiting, constipation, BRBPR or black or tarry stools. Notes pepto bismol makes stools dark when she takes it. Review of Systems Constitutional: Negative. Objective BP 112/69 Pulse 60 Resp 16 Wt 59.9 kg (132 lb) BMI 21.31 kg/m? Physical Exam Vitals and nursing note reviewed. Constitutional: Appearance: Normal appearance. HENT: Head: Normocephalic and atraumatic. Eyes: Conjunctiva/sclera: Conjunctivae normal. Cardiovascular: Rate and Rhythm: Normal rate and regular rhythm. Heart sounds: Normal heart sounds. Pulmonary: Effort: Pulmonary effort is normal. Breath sounds: Normal breath sounds. Abdominal: General: Bowel sounds are normal. There is no distension. Palpations: Abdomen is soft. Tenderness: There is no abdominal tenderness. There is no guarding or rebound. Musculoskeletal: Right lower leg: No edema. Left lower leg: No edema. Skin: General: Skin is warm and dry. Neurological: General: No focal deficit present. Mental Status: She is alert and oriented to person, place, and time. ALLERGIES Allergen Reactions Zyloprim [Allopurin* Rash Environmental [Othe* Intolerance rhinitis Tramadol Other: See Comments made patient woozy/dizzy Medication carbamide peroxide (DEBROX) 6.5 % otic solutionUse 5 Drops in both ears twice daily.Disp: 15 mLRfl: 0 acetaminophen (TYLENOL) 500 mg tabletTake 1,000 mg by mouth every 8 hours as needed for pain.Disp: Rfl: lisinopril (ZESTRIL) 20 mg tabletTake 1 tablet by mouth once daily. As directedDisp: Rfl: gabapentin (NEURONTIN) 300 mg capsuleTake 1 capsule by mouth twice daily for 180 days.Disp: 60 capsuleRfl: 5 albuterol HFA (VENTOLIN HFA) 90 mcg/actuation inhalerInhale 2 Puffs as instructed every 4 hours as needed for wheezing/shortness of breath.Disp: 1 EachRfl: 5 fluticasone (FLONASE) 50 mcg/actuation nasal sprayUse 2 Sprays in each nostril once daily. Rinse mouth after use.Disp: 1 EachRfl: 5 warfarin (COUMADIN) 3 mg tabletTake 0.5 tablets by mouth once daily.Disp: Rfl: OXYGEN, HOME THERAPY,Inhale 2 L/min as instructed as directed. At nightDisp: Rfl: famotidine (PEPCID) 20 mg tabletTake 1 tablet by mouth once daily.Disp: 90 tabletRfl: 3 nystatin-triamcinolone (MYCOLOG) ointmentApply sparingly to perineum (more content not included)... [facility] 09-11-2023 Instructions Jerad Bales APRN.CNS - 09/11/2023 3:16 PM EST Okay to use Imodium as needed for loose stools. Okay to use Tagamet if you are finding this helpful for loose stools. documented in this encounter [facility] 09-11-2023 History of Present illness Narrative SUBJECTIVE: Shingrix Vaccine(1 of 2) Never done RSV Vaccine(1 - 1-dose 60+ series) Never done DTaP,Tdap,Td Vaccine(1 - Tdap) due on 07/20/2012 LDL Cholesterol due on 08/23/2019 Covid-19 Vaccine( season) due on 07/03/2023 ANNMARIE Sharpe is a 83 year old female. 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) (Hcc) Copd (Chronic Obstructive Pulmonary Disease) (Hcc) Anxiety Transition of Care Performed With Sharing of Clinical Summary S/P Ventricular Septal Myectomy Status Post Mitral Valve Repair Secondary Polycythemia Chronic Diastolic Heart Failure (Hcc) Hyperlipidemia Left Bundle Branch Block Mcc Current Use of Anticoagulant Therapy 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) Arteriosclerosis of Coronary Artery Atypical Atrial Flutter (Hcc) First Degree Atrioventricular Block Lbbb (Left Bundle Branch Block) At Risk for Stroke Anticoagulant Long-Term Use Splenic Lesion Bone Metastasis Bradycardia Claudication of Both Lower Extremities (Hcc) Degenerative Spondylolisthesis Dizziness and Giddiness History of Fall Lower Gastrointestinal Hemorrhage Palpitation Peripheral Nerve Disease Peripheral Neuropathy Peripheral Vascular Disease, Unspecified (Hcc) S/P Placement of Cardiac Pacemaker Tachycardia-Bradycardia Syndrome (Hcc) Spinal Stenosis of Lumbar Region With Radiculopathy Permanent Atrial Fibrillation With Rapid Ventricular Response (Hcc) Permanent Atrial Fibrillation (Hcc) Complete Atrioventricular Block Due to Atrioventricular Miguel Ablation (Hcc) Pacemaker-Dependent Due to [place] Cardiac Rhythm Insufficient to Support Life Presents regarding occasional loose stool. 1 a day or less. Notes has used Tagamet which was helpful. She reports prior history of irritable bowel. She notes occasional nausea. No vomiting diarrhea or constipation. No BRBPR black or tarry stools. Notes a loose stool when in the hospital in the recent past. She notes decreased diarrhea over the last month and worse the last 2 days. No known change in diet. Afebrile. No abdominal pain, nausea, vomiting, constipation, BRBPR or black or tarry stools. Notes pepto bismol makes stools dark when she takes it. Review of Systems Constitutional: Negative. Objective BP 112/69 Pulse 60 Resp 16 Wt 59.9 kg (132 lb) BMI 21.31 kg/m Physical Exam Vitals and nursing note reviewed. Constitutional: Appearance: Normal appearance. HENT: Head: Normocephalic and atraumatic. Eyes: Conjunctiva/sclera: Conjunctivae normal. Cardiovascular: Rate and Rhythm: Normal rate and regular rhythm. Heart sounds: Normal heart sounds. Pulmonary: Effort: Pulmonary effort is normal. Breath sounds: Normal breath sounds. Abdominal: General: Bowel sounds are normal. There is no distension. Palpations: Abdomen is soft. Tenderness: There is no abdominal tenderness. There is no guarding or rebound. Musculoskeletal: Right lower leg: No edema. Left lower leg: No edema. Skin: General: Skin is warm and dry. Neurological: General: No focal deficit present. Mental Status: She is alert and oriented to person, place, and time. ALLERGIES Allergen Reactions Zyloprim [Allopurin* Rash Environmental [Othe* Intolerance rhinitis Tramadol Other: See Comments made patient woozy/dizzy Medication carbamide peroxide (DEBROX) 6.5 % otic solution^Use 5 Drops in both ears twice daily.^Disp: 15 mL^Rfl: 0 acetaminophen (TYLENOL) 500 mg tablet^Take 1,000 mg by mouth every 8 hours as needed for pain.^Disp: ^Rfl: lisinopril (ZESTRIL) 20 mg tablet^Take 1 tablet by mouth once daily. As directed^Disp: ^Rfl: gabapentin (NEURONTIN) 300 mg capsule^Take 1 capsule by mouth twice daily for 180 days.^Disp: 60 capsule^Rfl: 5 albuterol HFA (VENTOLIN HFA) 90 mcg/actuation inhaler^Inhale 2 Puffs as instructed every 4 hours as needed for wheezing/shortness of breath.^Disp: 1 Each^Rfl: 5 fluticasone (FLONASE) 50 mcg/actuation nasal spray^Use 2 Sprays in each nostril once daily. Rinse mouth after use.^Disp: 1 Each^Rfl: 5 warfarin (COUMADIN) 3 mg tablet^Take 0.5 tablets by mouth once daily.^Disp: ^Rfl: OXYGEN, HOME THERAPY,^Inhale 2 L/min as instructed as directed. At night^Disp: ^Rfl: famotidine (PEPCID) 20 mg tablet^Take 1 tablet by mouth once daily.^Disp: 90 tablet^Rfl: 3 nystatin-triamcinolone (MYCOLOG) ointment^Apply sparingly to perineum twice daily for irritation/infection.^Disp: 30 g^Rfl: 0 fluticasone-salmeterol (ADVAIR, WIXELA) 250-50 mcg/dose inhaler^Inhale 1 Puff as instructed twice daily.^Disp: 1 Each^Rfl: 5 furosemide (LASIX) 40 mg tablet^Take 40 mg by mouth once daily.^Disp: ^Rfl: therapeutic multivitamin (THERA VITAMIN) tablet^Take 1 tablet by mouth daily with breakfast.^Disp: ^Rfl: Cholecalciferol, Vitamin D3, 1,000 unit cap^Take 1 capsule by mouth once daily.^Disp: ^Rfl: 0 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) RF catheter ablation of AV node with consequent CHB; already had PPM in place Essential hypertension First degree atrioventricular block History of ankle fracture right; no surgery needed as had started to heal by the time had Xray HLD (hyperlipidemia) HOCM (hypertrophic obstructive cardiomyopathy) (HCC) IBS (irritable bowel syndrome) with diarrhea and urgency Impaired fasting glucose 10/06/2008 LBBB (left bundle branch block) ekg 06/27/20 Long Q-T syndrome 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 COUMADIN MR (mitral regurgitation) with assymetric hypertrophic cardiomyopathy 09/2001 Nonrheumatic mitral valve regurgitation Osteoporosis Pacemaker-dependent due 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 Monson follows for benign tumor removed 2002 Social History Tobacco Use Smoking status: Former Packs/day: 1.00 Years: 58.00 Additional pack years: 0.00 Total pack years: 58.00 Types: Cigarettes Start date: 1956 Quit date: 07/02/2005 Years since quittin.2 Smokeless tobacco: Never Tobacco comments: No smoking in childhood home. Spouse quit smoking years before patient did. Vaping Use Vaping Use: Never used Substance Use Topics Alcohol use: Yes Comment: occasional Drug use: No ASSESSMENT/PLAN: 1. Loose stools - ICD9: 787.7, ICD10: R19.5 She notes occasional loose stools 1/day typically since she was in the hospital. No daily diarrhea. She took [id number] Tagamet and seem to help. Okay to continue with this if she would like. Recommend take either famotidine or cimetidine. Okay to use Imodium [id number] per package directions if needed. If becomes more frequent then recommend further follow-up, stool testing, referral to gastroenterology. - C. DIFFICILE PCR - ENTERIC BACTERIAL PANEL BY PCR Jerad Bales APRN.COMMERCIAL LOAN ANALYST Medical Decision Making: Problems: Low: Acute, uncomplicated illness or injury Risk: Moderate: Drug management Medical Decision Making Level: 3 - Low documented in this encounter [facility] 09-04-2023 Miscellaneous Notes Patient return ed call and went over notes below with understanding. In review this is not on our med list we have for pt. Reviewed cardiology notes from Aug. Don't see it there either but it is in reconcile report from Dr. Ruiz. Message left to pt to call cardiology for this refill. Fyi to pcp. Pt states she is still taking 3x daily 25 mg each. Patient has been identified by name and date of : Yes Patient phones for refill(s): Requested Prescriptions Pending Prescriptions Disp Refills metoprolol succinate ER (TOPROL XL) 25 mg 24 hr tablet Sig: Take 3 tablets by mouth once daily. Date of last office visit in primary care: 07/30/2023 Date of next office visit in primary care: 11/30/2023 Last 2 Encounter Wt Readings: Date: Wt: 07/30/2023 60.3 kg (133 lb) 07/23/2023 60.3 kg (133 lb) Previous labs/tests for medication: Not applicable Please advise. Thank you. Aaliyah Ray. documented in this encounter [facility] 08-24-2023 Note HNO ID: [id number] Author: Silvia Lima LPN Service: ? Author Type: ? Type: Progress Notes Filed: 08/24/2023 3:58 PM Note Text: Patient presents for Prolia injection. Denies any problems at this time. Patient instructed on any SE of medication, verbalized understanding and agreed to proceed with treatment. Tolerated injection well. Silvia Lima LPN [facility] 08-24-2023 History of Present illness Narrative Patient presents for Prolia injection. Denies any problems at this time. Patient instructed on any SE of medication, verbalized understanding and agreed to proceed with treatment. Tolerated injection well. Silvia Lima LPN documented in this encounter [facility] 08-17-2023 Miscellaneous Notes ok Patient scheduled for nurse visit 08/24/23 to receive Prolia. Please place order at this time. Silvia Lima LPN documented in this encounter [facility] 07-30-2023 Note HNO ID: [id number] Author: Jerad Bales APRN.COMMERCIAL LOAN ANALYST Service: ? Author Type: Nurse Specialist Type: Progress Notes Filed: 07/31/2023 7:21 AM Note Text: SUBJECTIVE: Shingrix Vaccine(1 of 2) Never done DTaP,Tdap,Td Vaccine(1 - Tdap) due on 07/20/2012 LDL Cholesterol due on 08/23/2019 Covid-19 Vaccine(4 - Moderna risk series) due on 11/07/2021 ANNMARIE Sharpe is a 83 year old female. 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) (Hcc) Copd (Chronic Obstructive Pulmonary Disease) (Hcc) Anxiety Transition of Care Performed With Sharing of Clinical Summary S/P Ventricular Septal Myectomy Status Post Mitral Valve Repair Secondary Polycythemia Chronic Diastolic Heart Failure (Hcc) Hyperlipidemia Left Bundle Branch Block 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 of Anticoagulant Therapy 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) Arteriosclerosis of Coronary Artery Atypical Atrial Flutter (Hcc) First Degree Atrioventricular Block Lbbb (Left Bundle Branch Block) At Risk for Stroke Anticoagulant Long-Term Use Splenic Lesion Bone Metastasis Bradycardia Claudication of Both Lower Extremities (Hcc) Degenerative Spondylolisthesis Dizziness and Giddiness History of Fall Lower Gastrointestinal Hemorrhage Palpitation Peripheral Nerve Disease Peripheral Neuropathy Peripheral Vascular Disease, Unspecified (Hcc) S/P Placement of Cardiac Pacemaker Tachycardia-Bradycardia Syndrome (Hcc) Spinal Stenosis of Lumbar Region With Radiculopathy Permanent Atrial Fibrillation With Rapid Ventricular Response (Hcc) Permanent Atrial Fibrillation (Hcc) Complete Atrioventricular Block Due to Atrioventricular Miguel Ablation (Hcc) Pacemaker-Dependent Due to [place] Cardiac Rhythm Insufficient to Support Life Returns to clinic today for ear lavage. Notes she used Debrox as advised. HPI excerpted from previous visit: Followed by Dr Chaudhary EP AG/CC and [facility]. She is status post AV miguel catheter ablation with Dr. Chaudhary on January 02, 2023. She was seen at 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 Notes reviewed paroxysmal atrial fibrillation rate controlled on systemic anticoagulation, Coumadin followed by [facility]. Sick sinus syndrome status post pacemaker placement. Congestive heart failure with ejection fraction 35% on echo completed October 14, 2022. Echocardiogram advised. Possible MRI or CT to be completed. She notes she did not have a stroke. Hip fracture earlier this year, seen at [facility] shortly thereafter. She reports hip has healed well. She notes chronic back pain, interested in ablation for her back however due to her pacemaker does not think she can do this.. Sees Dr Rodríguez [facility] for pain management. Some difficulty with walking due to back pain. Last 14 Encounter BP Readings: Date: BP: 07/23/2023 146/80[bp average[ 07/01/2023 153/83[Used patient's home monitor[ 04/07/2023 120/78 02/16/2023 99/61 02/04/2023 96/64 01/02/2023 140/79 12/20/2022 122/82 11/24/2022 129/88 11/21/2022 121/74 11/14/2022 129/86 09/22/2022 132/75 09/10/2022 146/86 09/01/2022 122/76 08/22/2022 132/80 Hemoglobin A1C (%) Date Value 09/14/2018 5.7 Did not tolerate oral treatment for osteoporosis, willing to try alternate. Ambulatory Ear Lavage Pre-treatment: Carbamide Peroxide (i.e. Debrox) Treatment: Both ears Equipment and Irrigation solution and Volume used: Single use syringe with single use irrigation tip Water Return flow appearance: Debris Patient tolerated procedure: yes Tympanic membrane assessment: Tympanic membrane assessed by LIP pre and post procedure Review of Systems HENT: Positive for hearing loss. Musculoskeletal: Positive for back pain. Objective BP 111/73 Pulse 60 Resp 16 Wt 60.3 kg (133 lb) BMI 21.47 kg/m? Physical Exam Vitals and nursing note reviewed. Constitutional: Appearance: Normal appearance. HENT: Head: Normocephalic and atraumatic. Right Ear: Decreased hearing noted. There is impacted cerumen. Left Ear: Decreased hearing noted. There is impacted cerumen. Eyes: Conjunctiva/sclera: Conjunctivae normal. Cardiovascular: Rate and Rhythm: Normal rate and regular rhythm. Heart sounds: Normal heart sounds. Pulmonary: Effort: Pulmonary effort is normal. Breath sounds: Normal breath sounds. Abdominal: General: Bowel sounds are normal. Palpations: Abdomen is soft. Musculoskeletal: Rig (more content not included)... [facility] 07-23-2023 Note HNO ID: [id number] Author: Jerad Bales APRN.COMMERCIAL LOAN ANALYST Service: ? Author Type: Nurse Specialist Type: Progress Notes Filed: 07/23/2023 4:10 PM Note Text: SUBJECTIVE: Shingrix Vaccine(1 of 2) Never done DTaP,Tdap,Td Vaccine(1 - Tdap) due on 07/20/2012 LDL Cholesterol due on 08/23/2019 Covid-19 Vaccine(4 - Moderna risk series) due on 11/07/2021 Advance Directive Discussion Never done Influenza Vaccine(1) due on 07/03/2023 ANNMARIE Sharpe is a 83 year old female. 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) (Hcc) Copd (Chronic Obstructive Pulmonary Disease) (Hcc) Anxiety Transition of Care Performed With Sharing of Clinical Summary S/P Ventricular Septal Myectomy Status Post Mitral Valve Repair Secondary Polycythemia Chronic Diastolic Heart Failure (Hcc) Hyperlipidemia Left Bundle Branch Block Mcc Current Use of Anticoagulant Therapy 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) Arteriosclerosis of Coronary Artery Atypical Atrial Flutter (Hcc) First Degree Atrioventricular Block Lbbb (Left Bundle Branch Block) At Risk for Stroke Anticoagulant Long-Term Use Splenic Lesion Bone Metastasis Bradycardia Claudication of Both Lower Extremities (Hcc) Degenerative Spondylolisthesis Dizziness and Giddiness History of Fall Lower Gastrointestinal Hemorrhage Palpitation Peripheral Nerve Disease Peripheral Neuropathy Peripheral Vascular Disease, Unspecified (Hcc) S/P Placement of Cardiac Pacemaker Tachycardia-Bradycardia Syndrome (Hcc) Spinal Stenosis of Lumbar Region With Radiculopathy Permanent Atrial Fibrillation With Rapid Ventricular Response (Hcc) Permanent Atrial Fibrillation (Hcc) Complete Atrioventricular Block Due to Atrioventricular Miguel Ablation (Hcc) Pacemaker-Dependent Due to [place] Cardiac Rhythm Insufficient to Support Life Followed by Dr Chaudhary EP AG/CC and [facility]. She is status post AV miguel catheter ablation with Dr. Chaudhary on January 02, 2023. She was seen at 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 Notes reviewed paroxysmal atrial fibrillation rate controlled on systemic anticoagulation, Coumadin followed by [facility]. Sick sinus syndrome status post pacemaker placement. Congestive heart failure with ejection fraction 35% on echo completed October 14, 2022. Echocardiogram advised. Possible MRI or CT to be completed. She notes she did not have a stroke. Hip fracture earlier this year, seen at [facility] shortly thereafter. She reports hip has healed well. She notes chronic back pain, interested in ablation for her back however due to her pacemaker does not think she can do this.. Sees Dr Rodríguez [facility] for pain management. Some difficulty with walking due to back pain. Last 14 Encounter BP Readings: Date: BP: 07/23/2023 146/80[bp average[ 07/01/2023 153/83[Used patient's home monitor[ 04/07/2023 120/78 02/16/2023 99/61 02/04/2023 96/64 01/02/2023 140/79 12/20/2022 122/82 11/24/2022 129/88 11/21/2022 121/74 11/14/2022 129/86 09/22/2022 132/75 09/10/2022 146/86 09/01/2022 122/76 08/22/2022 132/80 Hemoglobin A1C (%) Date Value 09/14/2018 5.7 Did not tolerate oral treatment for osteoporosis, willing to try alternate. Review of Systems Musculoskeletal: Positive for back pain. Objective BP 146/80 Pulse 60 Resp 16 Wt 60.3 kg (133 lb) SpO2 93% BMI 21.47 kg/m? Physical Exam Vitals and nursing note reviewed. Constitutional: Appearance: Normal appearance. HENT: Head: Normocephalic and atraumatic. Eyes: Conjunctiva/sclera: Conjunctivae normal. Cardiovascular: Rate and Rhythm: Normal rate and regular rhythm. Heart sounds: Normal heart sounds. Pulmonary: Effort: Pulmonary effort is normal. Breath sounds: Normal breath sounds. Abdominal: General: Bowel sounds are normal. Palpations: Abdomen is soft. Musculoskeletal: Right lower leg: No edema. Left lower leg: No edema. Skin: General: Skin is warm and dry. Neurological: General: No focal deficit present. Mental Status: She is alert and oriented to person, place, and time. ALLERGIES Allergen Reactions Zyloprim [Allopurin* Rash Environmental [Othe* Intolerance rhinitis Tramadol Other: See Comments made patient woozy/dizzy Medication acetaminophen (TYLENOL) 500 mg tablet Take 1,000 mg by mouth every 8 hours as needed for pain. lisinopril (ZESTRIL) 20 mg tablet Take 1 tablet by mouth once (more content not included)... [facility] 07-23-2023 Instructions Jerad Bales APRN.CNS - 07/23/2023 2:25 PM EDT Consider the flu shot, covid booster, Tdap and shingles vaccine either at your local pharamcy or in clinic documented in this encounter [facility] 07-23-2023 History of Present illness Narrative SUBJECTIVE: Shingrix Vaccine(1 of 2) Never done DTaP,Tdap,Td Vaccine(1 - Tdap) due on 07/20/2012 LDL Cholesterol due on 08/23/2019 Covid-19 Vaccine(4 - Moderna risk series) due on 11/07/2021 Advance Directive Discussion Never done Influenza Vaccine(1) due on 07/03/2023 HPI Michelle Sharpe is a 83 year old female. 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) (Hcc) Copd (Chronic Obstructive Pulmonary Disease) (Hcc) Anxiety Transition of Care Performed With Sharing of Clinical Summary S/P Ventricular Septal Myectomy Status Post Mitral Valve Repair Secondary Polycythemia Chronic Diastolic Heart Failure (Hcc) Hyperlipidemia Left Bundle Branch Block Mcc Current Use of Anticoagulant Therapy 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) Arteriosclerosis of Coronary Artery Atypical Atrial Flutter (Hcc) First Degree Atrioventricular Block Lbbb (Left Bundle Branch Block) At Risk for Stroke Anticoagulant Long-Term Use Splenic Lesion Bone Metastasis Bradycardia Claudication of Both Lower Extremities (Hcc) Degenerative Spondylolisthesis Dizziness and Giddiness History of Fall Lower Gastrointestinal Hemorrhage Palpitation Peripheral Nerve Disease Peripheral Neuropathy Peripheral Vascular Disease, Unspecified (Hcc) S/P Placement of Cardiac Pacemaker Tachycardia-Bradycardia Syndrome (Hcc) Spinal Stenosis of Lumbar Region With Radiculopathy Permanent Atrial Fibrillation With Rapid Ventricular Response (Hcc) Permanent Atrial Fibrillation (Hcc) Complete Atrioventricular Block Due to Atrioventricular Miguel Ablation (Hcc) Pacemaker-Dependent Due to [place] Cardiac Rhythm Insufficient to Support Life Followed by Dr Chaudhayr EP AG/CC and [facility]. She is status post AV miguel catheter ablation with Dr. Chaudhary on January 02, 2023. She was seen at 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 Notes reviewed paroxysmal atrial fibrillation rate controlled on systemic anticoagulation, Coumadin followed by [facility]. Sick sinus syndrome status post pacemaker placement. Congestive heart failure with ejection fraction 35% on echo completed October 14, 2022. Echocardiogram advised. Possible MRI or CT to be completed. She notes she did not have a stroke. Hip fracture earlier this year, seen at [facility] shortly thereafter. She reports hip has healed well. She notes chronic back pain, interested in ablation for her back however due to her pacemaker does not think she can do this.. Sees [facility] for pain management. Some difficulty with walking due to back pain. Last 14 Encounter BP Readings: Date: BP: 07/23/2023 146/80[bp average[ 07/01/2023 153/83[Used patient's home monitor[ 04/07/2023 120/78 02/16/2023 99/61 02/04/2023 96/64 01/02/2023 140/79 12/20/2022 122/82 11/24/2022 129/88 11/21/2022 121/74 11/14/2022 129/86 09/22/2022 132/75 09/10/2022 146/86 09/01/2022 122/76 08/22/2022 132/80 Hemoglobin A1C (%) Date Value 09/14/2018 5.7 Did not tolerate oral treatment for osteoporosis, willing to try alternate. Review of Systems Musculoskeletal: Positive for back pain. Objective BP 146/80 Pulse 60 Resp 16 Wt 60.3 kg (133 lb) SpO2 93% BMI 21.47 kg/m Physical Exam Vitals and nursing note reviewed. Constitutional: Appearance: Normal appearance. HENT: Head: Normocephalic and atraumatic. Eyes: Conjunctiva/sclera: Conjunctivae normal. Cardiovascular: Rate and Rhythm: Normal rate and regular rhythm. Heart sounds: Normal heart sounds. Pulmonary: Effort: Pulmonary effort is normal. Breath sounds: Normal breath sounds. Abdominal: General: Bowel sounds are normal. Palpations: Abdomen is soft. Musculoskeletal: Right lower leg: No edema. Left lower leg: No edema. Skin: General: Skin is warm and dry. Neurological: General: No focal deficit present. Mental Status: She is alert and oriented to person, place, and time. ALLERGIES Allergen Reactions Zyloprim [Allopurin* Rash Environmental [Othe* Intolerance rhinitis Tramadol Other: See Comments made patient woozy/dizzy Medication acetaminophen (TYLENOL) 500 mg tablet Take 1,000 mg by mouth every 8 hours as needed for pain. lisinopril (ZESTRIL) 20 mg tablet Take 1 tablet by mouth once daily. As directed gabapentin (NEURONTIN) 300 mg capsule Take 1 capsule by mouth twice daily for 180 days. albuterol HFA (VENTOLIN HFA) 90 mcg/actuation inhaler Inhale 2 Puffs as instructed every 4 hours as needed for wheezing/shortness of breath. fluticasone (FLONASE) 50 mcg/actuation nasal spray Use 2 Sprays in each nostril once daily. Rinse mouth after use. warfarin (COUMADIN) 3 mg tablet Take 0.5 tablets by mouth once daily. OXYGEN, HOME THERAPY, Inhale 2 L/min as instructed as directed. At night famotidine (PEPCID) 20 mg tablet Take 1 tablet by mouth once daily. nystatin-triamcinolone (MYCOLOG) ointment Apply sparingly to perineum twice daily for irritation/infection. fluticasone-salmeterol (ADVAIR, WIXELA) 250-50 mcg/dose inhaler Inhale 1 Puff as instructed twice daily. furosemide (LASIX) 40 mg tablet Take 40 mg by mouth once daily. therapeutic multivitamin (THERA VITAMIN) tablet Take 1 tablet by mouth daily with breakfast. Cholecalciferol, Vitamin D3, 1,000 unit cap Take 1 capsule by mouth once daily. acetaminophen 325 mg cap Take 650 mg by mouth as needed for pain. (Patient not taking: Reported on 07/01/2023) azelastine (ASTELIN,ASTEPRO) 0.1% nasal spray Use 1-2 Sprays in each nostril twice daily as needed. (Patient not taking: Reported on 04/07/2023) 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) RF catheter ablation of AV node with consequent CHB; already had PPM in place Essential hypertension First degree atrioventricular block History of ankle fracture right; no surgery needed as had started to heal by the time had Xray HLD (hyperlipidemia) HOCM (hypertrophic obstructive cardiomyopathy) (HCC) IBS (irritable bowel syndrome) with diarrhea and urgency Impaired fasting glucose 10/06/2008 LBBB (left bundle branch block) ekg 06/27/20 Long Q-T syndrome 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 COUMADIN MR (mitral regurgitation) with assymetric hypertrophic cardiomyopathy 09/2001 Nonrheumatic mitral valve regurgitation Osteoporosis Pacemaker-dependent due 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 Monson follows for benign tumor removed 2002 Social History Tobacco Use Smoking status: Former Packs/day: 1.00 Years: 58.00 Additional pack years: 0.00 Total pack years: 58.00 Types: Cigarettes Start date: 1955 Quit date: 07/02/2005 Years since quittin.0 Smokeless tobacco: Never Tobacco comments: No smoking in childhood home. Spouse quit smoking years before patient did. Vaping Use Vaping Use: Never used Substance Use Topics Alcohol use: Yes Comment: occasional Drug use: No ASSESSMENT/PLAN: 1. Essential hypertension - ICD9: 401.9, ICD10: I10 (primary diagnosis) controlled - Continue current medications - Encouraged sodium restriction, DASH or Mediterranean diet - Recommend regular aerobic exercise as able 2. Age related osteoporosis, unspecified pathological fracture presence - ICD9: 733.01, ICD10: M81.0 - Reviewed the need for Calcium and Vitamin D supplements and weight bearing exercise as tolerated - DENOSUMAB 60 MG/ML SUBCUTANEOUS SYRINGE - DENOSUMAB 60 MG/ML SUBCUTANEOUS SYRINGE 3. Arteriosclerosis of coronary artery - ICD9: 414.00, ICD10: I25.10 - LIPID PANEL BASIC 4. Malignant neoplasm metastatic to bone (HCC) - ICD9: 198.5, ICD10: C79.51 5. Impacted cerumen of left ear - ICD9: 380.4, ICD10: H61.22 6. Excessive cerumen in ear canal, right - ICD9: 380.4, ICD10: H61.21 RTC 1 week for lavage - DEBROX 6.5 % EAR DROPS 7. Chronic right-sided low back pain with right-sided sciatica - ICD9: 724.2, 724.3, 338.29, ICD10: M54.41, G89.29 Would like prednisone for pain, Rx sent. Sees Dr Rodríguez for chronic pain Interested in ablation for back but not sure if able to complete this due to her pacemaker. - PREDNISONE 10 MG TABLET 8. Permanent atrial fibrillation with rapid ventricular response (HCC) - ICD9: 427.31, ICD10: I48.21 Followed by cardiology, on chronic oral anticoagulation, Coumadin per [facility]. Ventricular paced rhythm on most recent EKG. 9. Spinal stenosis of lumbar region with radiculopathy - ICD9: 724.02, 724.4, ICD10: M48.061, M54.16 - PREDNISONE 10 MG TABLET 1 week follow up Jerad Bales APRN.COMMERCIAL LOAN ANALYST schedule follow up hematology oncology - Nov 2023 schedule follow up Alisia Pacheco MD 4 mos schedule follow up Aaliyah Stone pulmonology Sep [address] Chaudhary cardiology February 2024 schedule Prolia, zoledronic acid contraindicated due to CHF. Jerad Bales APRN.CNS Medical Decision Making: Problems: Moderate: 2+ stable chronic illnesses Data: Unique source(s) for external note(s) reviewed: 1 Unique test result(s) reviewed: 3+ Unique test(s) ordered: 1 Risk: Moderate: Drug management Medical Decision Making Level: 4 - Moderate documented in this encounter [facility] 07-13-2023 Note HNO ID: [id number] Author: Jerad Medina RN Service: ? Author Type: Registered Nurse Type: Progress Notes Filed: 07/13/2023 12:25 PM Note Text: [facility] NURSE - CHART REVIEW Provider FYI PCC Action Chart review. Patient engaged with non [facility] primary care physician. No action needed Pt identified by name and . Reason for Review: Payor request Patient Attributed To: QAE Payer: JOE Chart Review For: Utilization: ED Total Patient High CostTotal Patient High Cost {HIGH COST:262475) Quality measure review Payor request for assistance Action Taken: No action needed Jerad Medina RN July 13, 2023 12:22 PM [facility] 07-13-2023 Note Patient Outreach ([facility]) MICHELLE SHARPE ([id number]) 1940 F Date Time Provider Department 07/13/23 JERAD MEDINA [facility] During your visit today, we recorded the following information about you: Jerad Medina RN 07/13/2023 12:25 PM Signed [facility] NURSE - CHART REVIEW Provider DIANA PCC Action Chart review. Patient engaged with non [facility] primary care physician. No action needed Pt identified by name and . Reason for Review: Payor request Patient Attributed To: ANTHONY Payer: JOE Chart Review For: Utilization: ED Total Patient High CostTotal Patient High Cost {HIGH COST:985277) Quality measure review Payor request for assistance Action Taken: No action needed Jerad Medina RN July 13, 2023 12:22 PM Allergies As of Date: 07/13/2023 Noted Allergy Reaction ZYLOPRIM (ALLOPURINOL) 05/26/2017 2 - Rash environmental [Other] 12/30/2005 5 - Intolerance Comments: rhinitis TRAMADOL 03/10/2016 14 - Other: See Comments Comments: made patient woozy/dizzy Date Reviewed: 07/01/2023 Reviewed by: Emilie Chatman LPN - Fully Assessed Prescriptions as of 07/13/2023 - acetaminophen (TYLENOL) 500 mg tablet Take 1,000 mg by mouth every 8 hours as needed for pain. - lisinopril (ZESTRIL) 20 mg tablet Take 1 tablet by mouth once daily. As directed - gabapentin (NEURONTIN) 300 mg capsule Take 1 capsule by mouth twice daily for 180 days. - albuterol HFA (VENTOLIN HFA) 90 mcg/actuation inhaler Inhale 2 Puffs as instructed every 4 hours as needed for wheezing/shortness of breath. - fluticasone (FLONASE) 50 mcg/actuation nasal spray Use 2 Sprays in each nostril once daily. Rinse mouth after use. - warfarin (COUMADIN) 3 mg tablet Take 0.5 tablets by mouth once daily. - acetaminophen 325 mg cap Take 650 mg by mouth as needed for pain. - OXYGEN, HOME THERAPY, Inhale 2 L/min as instructed as directed. At night - famotidine (PEPCID) 20 mg tablet Take 1 tablet by mouth once daily. - nystatin-triamcinolone (MYCOLOG) ointment Apply sparingly to perineum twice daily for irritation/infection. - fluticasone-salmeterol (ADVAIR, WIXELA) 250-50 mcg/dose inhaler Inhale 1 Puff as instructed twice daily. - furosemide (LASIX) 40 mg tablet Take 40 mg by mouth once daily. - azelastine (ASTELIN,ASTEPRO) 0.1% nasal spray Use 1-2 Sprays in each nostril twice daily as needed. - therapeutic multivitamin (THERA VITAMIN) tablet Take 1 tablet by mouth daily with breakfast. - Cholecalciferol, Vitamin D3, 1,000 unit cap Take 1 capsule by mouth once daily. Problem List As Of Date 07/13/2023 Noted Resolved FX LATERAL MALLEOLUS-CLOSE [S82.63XA] 11/25/2005 09/05/2008 ELEV BL PRES W/O HYPERTN [R03.0] 09/05/2008 10/06/2008 Unspecified disorder of bladder [N32.9] 09/05/2008 08/03/2018 Impaired fasting glucose [R73.01] 10/06/2008 08/03/2018 Essential hypertension [I10] 10/06/2008 Osteoporosis [M81.0] 06/21/2010 Vitamin D deficiency [E55.9] 07/09/2010 08/03/2018 Nonrheumatic mitral (valve) insufficiency [I34.*11/11/2017 IBS (irritable bowel syndrome) [K58.9] 08/03/2018 Left-sided low back pain with left-sided sciati*02/19/2016 08/03/2018 Long Q-T syndrome [I45.81] 01/21/2017 Small B-cell lymphoma of extranodal site exclud*03/05/2017 Small cell B-cell lymphoma of extranodal site (*03/05/2017 08/03/2018 Bone metastases (HCC) [C79.51] 03/27/2017 08/29/2021 Hypoxemia [R09.02] 05/20/2017 08/03/2018 Longstanding persistent atrial fibrillation [I4*05/20/2017 Pulmonary emphysema (HCC) [J43.9] 05/26/2017 Bone metastasis (HCC) [C79.51] 10/13/2017 08/29/2021 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) *11/20/2017 HOCM (hypertrophic obstructive cardiomyopathy) *05/12/2018 Discharge planning issues [Z02.9] 07/29/2018 08/29/2021 Preop testing [Z01.818] 07/29/2018 08/03/2018 Encounter for preoperative anesthesiology asses*07/29/2018 08/29/2021 Cardiac insufficiency (HCC) [I50.9] 07/30/2018 07/31/2018 On mechanically assisted ventilation (HCC) [Z99*07/30/2018 07/31/2018 Postoperative pain [G89.18] 07/30/2018 08/03/2018 Stress hyperglycemia [R73.9] 07/30/2018 08/05/2018 Hypovolemia/fluctuating lacic acidosis [E86.1] 07/30/2018 08/02/2018 COPD (chronic obstructive pulmonary disease) (H*07/30/2018 Anxiety [F41.9] 07/31/2018 Hypervolemia [E87.70] 08/01/2018 08/03/2018 RADHA (acute kidney injury) (HCC) [N17.9] 08/01/2018 08/05/2018 Transition of care performed with sharing of cl*08/03/2018 S/P ventricular septal myectomy [Z98.890] 08/27/2018 Status post mitral valve repair [Z98.890] 08/27/2018 Secondary polycythemia [D75.1] 03/09/2020 Chronic diastolic heart failure (HCC) [I50.32] 11/11/2017 Hyperlipidemia [E78.5] 08/03/2020 Left bundle branch block [I44.7] 08/03/2020 halfway current use of anticoagulant therapy *02/18/2019 Malignant neoplasm of urinary bladder (HCC) (more content not included)... [facility] 07-13-2023 History of Present illness Narrative [facility] NURSE - CHART REVIEW Provider DIANA PCC Action Chart review. Patient engaged with non [facility] primary care physician. No action needed Pt identified by name and . Reason for Review: Payor request Patient Attributed To: VANESSAE Payer: JOE Chart Review For: Utilization: ED Total Patient High CostTotal Patient High Cost {HIGH COST:979630) Quality measure review Payor request for assistance Action Taken: No action needed Jerad Medina RN July 13, 2023 12:22 PM documented in this encounter [facility] 07-01-2023 Note HNO ID: [id number] Author: Alisia Pacheco MD Service: ? Author Type: Physician Type: Progress Notes Filed: 08/02/2023 11:52 PM Note Text: Transitional Care Management TCM Eligibility Documentation The following information was gathered during the initial Patient Outreach Encounter. No flowsheet data found. Provider Documentation Michelle Sharpe is a 83 year old female here today for a follow up from recent hospitalization. I have reviewed the patient's hospital course including discharge summary, discharge medications , and follow up needs with the patient and any family members present at today's visit. HPI Patient presents with: Hospital F/U: [facility] Hospital discharge 06/27/23 for High Blood Pressure See additional documentation in other note [facility] 07-01-2023 Note HNO ID: [id number] Author: Alisia Pacheco MD Service: ? Author Type: Physician Type: Progress Notes Filed: 08/02/2023 11:52 PM Note Text: This note was created using ServiceNowriter. Subjective Michelle Sharpe is a 83 year old female. Patient presents with: Hospital F/U: [facility] Hospital discharge 06/27/23 for High Blood Pressure SUBJECTIVE: Michelle Sharpe is a 83 year old year old lady here today for hospital follow up appointment for review of medical conditions. 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 But the CT and CTA were negative. They could not do MRI due to pacemaker. Reviewed that when went to ER, BP was >200s. BP--hsa new machine brought in today. Noted that was started on pain patch by Dr. Rodríguez. Made her dizzy. Only used for 2 weeks (1 patch for 1 week then 2 patches) Was wearing at the hospital. Did not replace patch this past Thursday. Dizziness is better since not using the patch anymore. Still has really bad back ache. Wonders about RFA for lumbar spine but was told Trouble with right toes pointing down when walking; gets pain in toes. Attributed to last Moderna COVID 19 vaccine. Had pain in leg right after then resolved. Right leg feels colder and pain came back. Right leg is larger with mild swelling comapred to left--not pitting. 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) RF catheter ablation of AV node with consequent CHB; already had PPM in place Essential hypertension First degree atrioventricular block History of ankle fracture right; no surgery needed as had started to heal by the time had Xray HLD (hyperlipidemia) HOCM (hypertrophic obstructive cardiomyopathy) (HCC) IBS (irritable bowel syndrome) with diarrhea and urgency Impaired fasting glucose 10/06/2008 LBBB (left bundle branch block) ekg 06/27/20 Long Q-T syndrome 01/21/2017 halfway (current) use of 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 COUMADIN MR (mitral regurgitation) with assymetric hypertrophic cardiomyopathy 09/2001 Nonrheumatic mitral valve regurgitation Osteoporosis Pacemaker-dependent due 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 Monson follows for benign tumor removed 2002 Current Outpatient Medications Medication Sig acetaminophen (TYLENOL) 500 mg tablet Take 1,000 mg by mouth every 8 hours as needed for pain. OXYGEN, HOME THERAPY, Inhale 2 L/min as instructed as directed. At night famotidine (PEPCID) 20 mg tablet Take 1 tablet by mouth once daily. nystatin-triamcinolone (MYCOLOG) ointment Apply sparingly to perineum twice daily for irritation/infection. fluticasone-salmeterol (ADVAIR, WIXELA) 250-50 mcg/dose inhaler Inhale 1 Puff as instructed twice daily. furosemide (LASIX) 40 mg tablet Take 40 mg by mouth once daily. therapeutic multivitamin (THERA VITAMIN) tablet Take 1 tablet by mouth daily with breakfast. Cholecalciferol, Vitamin D3, 1,000 unit cap Take 1 capsule by mouth once daily. lisinopril (ZESTRIL) 20 mg tablet Take 1 tablet by mouth once daily. As directed gabapentin (NEURONTIN) 300 mg capsule Take 1 capsule by mouth twice daily for 180 days. albuterol HFA (VENTOLIN HFA) 90 mcg/actuation inhaler Inhale 2 Puffs as instructed every 4 hours as needed for wheezing/shortness of breath. fluticasone (FLONASE) 50 mcg/actuation nasal spray Use 2 Sprays in each nostril once daily. Rinse mouth after use. warfarin (COUMADIN) 3 mg tablet Take 0.5 tablets by mouth once daily. acetaminophen 325 mg cap Take 650 mg by mouth as needed for pain. (Patient not taking: Reported on 07/01/2023) azelastine (ASTELIN,ASTEPRO) 0.1% nasal spray Use 1-2 Sprays in each nostril twice daily as needed. (Patient not taking: Reported on 04/07/2023) No current facility-administered medications for this visit. Review of Systems Objective BP 153/83 Pulse 61 Temp 36.3 ?C (97.3 ?F) Resp 18 Wt 61.1 kg (134 lb 12.8 oz) SpO2 95% BMI 21.76 kg/m? Last 5 Encounter Wt Readings: Date: Wt: 07/01/2023 61.1 kg (134 lb 12.8 oz) 04/07/2023 61.2 kg (134 lb 14.4 oz) 04 (more content not included)... [facility] 07-01-2023 History of Present illness Narrative Transitional Care Management TCM Eligibility Documentation The following information was gathered during the initial Patient Outreach Encounter. No flowsheet data found. Provider Documentation Michelle Sharpe is a 83 year old female here today for a follow up from recent hospitalization. I have reviewed the patient's hospital course including discharge summary, discharge medications , and follow up needs with the patient and any family members present at today's visit. HPI Patient presents with: Hospital F/U: [facility] Hospital discharge 06/27/23 for High Blood Pressure See additional documentation in other note This note was created using ServiceNowriter. Subjective Michelle Sharpe is a 83 year old female. Patient presents with: Hospital F/U: [facility] Hospital discharge 06/27/23 for High Blood Pressure SUBJECTIVE: Michelle Sharpe is a 83 year old year old lady here today for hospital follow up appointment for review of medical conditions. 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 But the CT and CTA were negative. They could not do MRI due to pacemaker. Reviewed that when went to ER, BP was >200s. BP--hsa new machine brought in today. Noted that was started on pain patch by Dr. Rodríguez. Made her dizzy. Only used for 2 weeks (1 patch for 1 week then 2 patches) Was wearing at the hospital. Did not replace patch this past Thursday. Dizziness is better since not using the patch anymore. Still has really bad back ache. Wonders about RFA for lumbar spine but was told Trouble with right toes pointing down when walking; gets pain in toes. Attributed to last Moderna COVID 19 vaccine. Had pain in leg right after then resolved. Right leg feels colder and pain came back. Right leg is larger with mild swelling comapred to left--not pitting. 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) RF catheter ablation of AV node with consequent CHB; already had PPM in place Essential hypertension First degree atrioventricular block History of ankle fracture right; no surgery needed as had started to heal by the time had Xray HLD (hyperlipidemia) HOCM (hypertrophic obstructive cardiomyopathy) (HCC) IBS (irritable bowel syndrome) with diarrhea and urgency Impaired fasting glucose 10/06/2008 LBBB (left bundle branch block) ekg 06/27/20 Long Q-T syndrome 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 COUMADIN MR (mitral regurgitation) with assymetric hypertrophic cardiomyopathy 09/2001 Nonrheumatic mitral valve regurgitation Osteoporosis Pacemaker-dependent due to [place] cardiac rhythm insufficient to support life Permanent atrial fibrillation ([facility]) 11/21/2022 Permanent atrial fibrillation with rapid ventricular response ([facility]) 11/21/2022 Persistent atrial fibrillation (HCC) Presence of permanent cardiac pacemaker 01/15/2022 [employer] single chamber pacemaker; indication: symptomatic tachycardia-bradycardia syndrome Pulmonary emphysema ([facility]) 05/26/2017 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 Monson follows for benign tumor removed 2002 Current Outpatient Medications Medication Sig acetaminophen (TYLENOL) 500 mg tablet Take 1,000 mg by mouth every 8 hours as needed for pain. OXYGEN, HOME THERAPY, Inhale 2 L/min as instructed as directed. At night famotidine (PEPCID) 20 mg tablet Take 1 tablet by mouth once daily. nystatin-triamcinolone (MYCOLOG) ointment Apply sparingly to perineum twice daily for irritation/infection. fluticasone-salmeterol (ADVAIR, WIXELA) 250-50 mcg/dose inhaler Inhale 1 Puff as instructed twice daily. furosemide (LASIX) 40 mg tablet Take 40 mg by mouth once daily. therapeutic multivitamin (THERA VITAMIN) tablet Take 1 tablet by mouth daily with breakfast. Cholecalciferol, Vitamin D3, 1,000 unit cap Take 1 capsule by mouth once daily. lisinopril (ZESTRIL) 20 mg tablet Take 1 tablet by mouth once daily. As directed gabapentin (NEURONTIN) 300 mg capsule Take 1 capsule by mouth twice daily for 180 days. albuterol HFA (VENTOLIN HFA) 90 mcg/actuation inhaler Inhale 2 Puffs as instructed every 4 hours as needed for wheezing/shortness of breath. fluticasone (FLONASE) 50 mcg/actuation nasal spray Use 2 Sprays in each nostril once daily. Rinse mouth after use. warfarin (COUMADIN) 3 mg tablet Take 0.5 tablets by mouth once daily. acetaminophen 325 mg cap Take 650 mg by mouth as needed for pain. (Patient not taking: Reported on 07/01/2023) azelastine (ASTELIN,ASTEPRO) 0.1% nasal spray Use 1-2 Sprays in each nostril twice daily as needed. (Patient not taking: Reported on 04/07/2023) No current facility-administered medications for this visit. Review of Systems Objective BP 153/83 Pulse 61 Temp 36.3 C (97.3 F) Resp 18 Wt 61.1 kg (134 lb 12.8 oz) SpO2 95% BMI 21.76 kg/m Last 5 Encounter Wt Readings: Date: Wt: 07/01/2023 61.1 kg (134 lb 12.8 oz) 04/07/2023 61.2 kg (134 lb 14.4 oz) 02/16/2023 63.5 kg (140 lb) 02/04/2023 61.7 kg (136 lb) 12/20/2022 64 kg (141 lb) No waist measurement recorded Estimated body mass index is 21.76 kg/m as calculated from the following: Height as of 02/16/23: 167.6 cm (5' 6 ). Weight as of this encounter: 61.1 kg (134 lb 12.8 oz). Last 5 Encounter BP Readings: Date: BP: 07/01/2023 153/83[Used patient's home monitor[ 04/07/2023 120/78 02/16/2023 99/61 02/04/2023 96/64 01/02/2023 140/79 Physical Exam Constitutional: Appearance: Normal appearance. HENT: Head: Normocephalic. Eyes: Conjunctiva/sclera: Conjunctivae normal. Cardiovascular: Rate and Rhythm: Normal rate and regular rhythm. Heart sounds: Normal heart sounds. Pulmonary: Effort: Pulmonary effort is normal. Breath sounds: Normal breath sounds. Musculoskeletal: Right lower leg: Edema (RLE slightly larger than left with mild nonptting swelling; slightly cooler on right) present. Skin: General: Skin is warm and dry. Neurological: General: No focal deficit present. Mental Status: She is alert and oriented to person, place, and time. Psychiatric: Mood and Affect: Mood normal. Behavior: Behavior normal. Thought Content: Thought content normal. Judgment: Judgment normal. Assessment and Plan Encounter Diagnosis ICD-10-CM 1. Essential hypertension I10 See patient instruction. See if settles down. Follow also with Dr. Souza 2. Chronic obstructive pulmonary disease, unspecified COPD type (HCC) J44.9 albuterol HFA (VENTOLIN HFA) 90 mcg/actuation inhaler Stable on current management. Follows with Dr. Miller 3. Viral URI J06.9 fluticasone (FLONASE) 50 mcg/actuation nasal spray 4. Right leg swelling M79.89 Persistent; may contribute to foot pain since swelling might be affecting proprioception. See operations technician as needed. Try support socks. 5. Dizziness R42 Better off the [place] patch. The ataxia dizziness might be from this too as well as issues with right leg swelling.Uses walker to prevent falls. Consider PT Above issues addressed with patient. Patient involved in shared decision making for management of medical issues. History and medications reviewed. Epic updated as needed Refills and/or prescriptions taken care of and meds adjusted as indicated after reviewed history, exam and labs. Health Maintenance reviewed. Updated record and/or ordered tests as recorded. Encouraged on efforts at healthy diet and regular exercise and adequate sleep. Alisia Pacheco MD documented in this encounter [facility] 07-01-2023 Instructions Alisia Pacheco MD - 07/01/2023 11:23 AM EDT If BP goes over 160, take an extra half of the lisinopril once daily. Stay on the 1 whole pill daily. If BP after 1 to 2 weeks is not getting back under 140/90, we should adjust medication. Would consider increasing the metoprolol to 100mg (4 pills per day). Can run this by cardiology first if you prefer. After BP gets settled down, need to decide about Reclast or Prolia in place of Fosamax that you had to stop because of stomach upset. documented in this encounter [facility] 04-20-2023 Miscellaneous Notes Was this taken care of? Home care Certification Form 485 received from [facility]. For cert dates 02/17/2023-04/17/2023 that were signed on 03/04/2023. New Certification Patient's home health 485 form / care plan for stated certification period reviewed and signed. Relevant medical records were reviewed. No changes were indicated documented in this encounter [facility] 04-10-2023 Miscellaneous Notes Home care Certification Form 485 received from [facility]. For cert dates 01/31/2023-03/31/2023 that were signed on 02/12/2023. New Certification Patient's home health 485 form / care plan for stated certification period reviewed and signed. Relevant medical records were reviewed. No changes were indicated documented in this encounter [facility] 04-07-2023 Note HNO ID: [id number] Author: Alisia Pacheco MD Service: ? Author Type: Physician Type: Progress Notes Filed: 05/06/2023 12:04 AM Note Text: This note was created using ServiceNowriter. Subjective Michelle Sharpe is a 83 year old female. Patient presents with: ED Follow-up SUBJECTIVE: Michelle Sharpe is a 83 year old year old lady here today for ER follow up appointment for review of medical conditions. Seen in ER 03/26/23 at [facility] for Dyspnea and right sided chest pain. Noted pain was more severe a few weeks ago and was her back pain with radiation down right leg. Had prior problems with sciatica. No problems with pain from right hip since surgery. Still follows with Dr. Rodríguez for injections and hydrocodone as needed--last seen December. Last RX was plain oxycodone because of INR being high and Dr. Souza wanted her off meds with acetaminophen Severe spinal canal stenosis. Pain is worse with standing straight up. Legs hurt worse when gets up in AM. Theraworx does help legs. Noted that [facility] discharged her and told her they will no longer cover for home INR. Coumadin and INRs are managed by Dr. Souza. States that someone from [facility] would call here. No telephone encounters entered. Patient has hard time getting in for appointments for labs, etc. Was told would have to pay for home health nurse drawn INR out of pocket . Cleaning woman drove her today. 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) RF catheter ablation of AV node with consequent CHB; already had PPM in place Essential hypertension First degree atrioventricular block History of ankle fracture right; no surgery needed as had started to heal by the time had Xray HLD (hyperlipidemia) HOCM (hypertrophic obstructive cardiomyopathy) (HCC) IBS (irritable bowel syndrome) with diarrhea and urgency Impaired fasting glucose 10/06/2008 LBBB (left bundle branch block) ekg 06/27/20 Long Q-T syndrome 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 COUMADIN MR (mitral regurgitation) with assymetric hypertrophic cardiomyopathy 09/2001 Nonrheumatic mitral valve regurgitation Osteoporosis Pacemaker-dependent due 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 Monson follows for benign tumor removed 2002 Current Outpatient Medications Medication Sig midodrine (PROAMITINE) 5 mg tablet Take 5 mg by mouth three times daily. tamsulosin (FLOMAX) 0.4 mg Take 0.4 mg by mouth once daily. acetaminophen 325 mg cap Take 650 mg by mouth as needed for pain. OXYGEN, HOME THERAPY, Inhale 2 L/min as instructed as directed. At night lisinopril (ZESTRIL) 10 mg tablet Take 1-2 tablets by mouth once daily. As directed famotidine (PEPCID) 20 mg tablet Take 1 tablet by mouth once daily. nystatin-triamcinolone (MYCOLOG) ointment Apply sparingly to perineum twice daily for irritation/infection. fluticasone-salmeterol (ADVAIR, WIXELA) 250-50 mcg/dose inhaler Inhale 1 Puff as instructed twice daily. nitrofurantoin monohydrate and macrocrystal (MACROBID) 100 mg capsule Take 100 mg by mouth once daily. furosemide (LASIX) 40 mg tablet Take 40 mg by mouth once daily. gabapentin (NEURONTIN) 300 mg capsule Take 300 mg by mouth twice daily. warfarin (COUMADIN) 3 mg tablet 3 mg W and Thurs, 1.5 mg all other days albuterol HFA (VENTOLIN HFA) 90 mcg/actuation inhaler Inhale 2 Puffs as instructed every 4 hours as needed for wheezing/shortness of breath. alendronate (FOSAMAX) 70 mg tablet Take 1 tablet by mouth one time a week. Take with a full glass of water, on an empty stomach; do NOT lie down for 30minutes. potassium chloride (K-TAB) 10 mEq tablet Take 1 tablet by mouth once daily. (Patient not taking: No sig reported) fluticasone (FLONASE) 50 mcg/actuation nasal spray USE 2 SPRAYS IN EACH NOSTRIL ONCE DAILY. RINSE MOUTH AFTER USE. (Patient not taking: Reported on 02/16/2023) azelastine (ASTELIN,ASTEPRO) 0.1% nasal spray Use 1-2 Sprays in each nostril twice daily as needed. ipratropi (more content not included)... [facility] 04-07-2023 History of Present illness Narrative This note was created using [employer] vascular solutionter. Subjective Michelle Sharpe is a 83 year old female. Patient presents with: ED Follow-up SUBJECTIVE: Michelle Sharpe is a 83 year old year old lady here today for ER follow up appointment for review of medical conditions. Seen in ER 03/26/23 at [facility] for Dyspnea and right sided chest pain. Noted pain was more severe a few weeks ago and was her back pain with radiation down right leg. Had prior problems with sciatica. No problems with pain from right hip since surgery. Still follows with Dr. Rodríguez for injections and hydrocodone as needed--last seen December. Last RX was plain oxycodone because of INR being high and Dr. Souza wanted her off meds with acetaminophen Severe spinal canal stenosis. Pain is worse with standing straight up. Legs hurt worse when gets up in AM. Theraworx does help legs. Noted that [facility] discharged her and told her they will no longer cover for home INR. Coumadin and INRs are managed by Dr. Souza. States that someone from [facility] would call here. No telephone encounters entered. Patient has hard time getting in for appointments for labs, etc. Was told would have to pay for home health nurse drawn INR out of pocket . Cleaning woman drove her today. 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) RF catheter ablation of AV node with consequent CHB; already had PPM in place Essential hypertension First degree atrioventricular block History of ankle fracture right; no surgery needed as had started to heal by the time had Xray HLD (hyperlipidemia) HOCM (hypertrophic obstructive cardiomyopathy) (HCC) IBS (irritable bowel syndrome) with diarrhea and urgency Impaired fasting glucose 10/06/2008 LBBB (left bundle branch block) ekg 06/27/20 Long Q-T syndrome 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 COUMADIN MR (mitral regurgitation) with assymetric hypertrophic cardiomyopathy 09/2001 Nonrheumatic mitral valve regurgitation Osteoporosis Pacemaker-dependent due 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 Monson follows for benign tumor removed 2002 Current Outpatient Medications Medication Sig midodrine (PROAMITINE) 5 mg tablet Take 5 mg by mouth three times daily. tamsulosin (FLOMAX) 0.4 mg Take 0.4 mg by mouth once daily. acetaminophen 325 mg cap Take 650 mg by mouth as needed for pain. OXYGEN, HOME THERAPY, Inhale 2 L/min as instructed as directed. At night lisinopril (ZESTRIL) 10 mg tablet Take 1-2 tablets by mouth once daily. As directed famotidine (PEPCID) 20 mg tablet Take 1 tablet by mouth once daily. nystatin-triamcinolone (MYCOLOG) ointment Apply sparingly to perineum twice daily for irritation/infection. fluticasone-salmeterol (ADVAIR, WIXELA) 250-50 mcg/dose inhaler Inhale 1 Puff as instructed twice daily. nitrofurantoin monohydrate and macrocrystal (MACROBID) 100 mg capsule Take 100 mg by mouth once daily. furosemide (LASIX) 40 mg tablet Take 40 mg by mouth once daily. gabapentin (NEURONTIN) 300 mg capsule Take 300 mg by mouth twice daily. warfarin (COUMADIN) 3 mg tablet 3 mg W and Thurs, 1.5 mg all other days albuterol HFA (VENTOLIN HFA) 90 mcg/actuation inhaler Inhale 2 Puffs as instructed every 4 hours as needed for wheezing/shortness of breath. alendronate (FOSAMAX) 70 mg tablet Take 1 tablet by mouth one time a week. Take with a full glass of water, on an empty stomach; do NOT lie down for 30minutes. potassium chloride (K-TAB) 10 mEq tablet Take 1 tablet by mouth once daily. (Patient not taking: No sig reported) fluticasone (FLONASE) 50 mcg/actuation nasal spray USE 2 SPRAYS IN EACH NOSTRIL ONCE DAILY. RINSE MOUTH AFTER USE. (Patient not taking: Reported on 02/16/2023) azelastine (ASTELIN,ASTEPRO) 0.1% nasal spray Use 1-2 Sprays in each nostril twice daily as needed. ipratropium (ATROVENT) 0.02 % nebulizer solution Use 2.5 mL via nebulizer four times daily as needed for Wheezing/Shortness of Breath. Use over 5-15minutes. (Patient not taking: Reported on 02/16/2023) therapeutic multivitamin (THERA VITAMIN) tablet Take 1 tablet by mouth daily with breakfast. Cholecalciferol, Vitamin D3, 1,000 unit cap Take 1 capsule by mouth once daily. No current facility-administered medications for this visit. Review of Systems Objective BP 120/78 Pulse 60 Temp 36.7 C (98.1 F) Resp 18 Wt 61.2 kg (134 lb 14.4 oz) SpO2 95% BMI 21.77 kg/m Physical Exam Constitutional: Appearance: Normal appearance. HENT: Head: Normocephalic. Eyes: Conjunctiva/sclera: Conjunctivae normal. Cardiovascular: Rate and Rhythm: Normal rate and regular rhythm. Heart sounds: Normal heart sounds. Comments: Trace pretibial pitting edema right foot and 1+ leg. Trace pretibial and pedal edema Pulmonary: Effort: Pulmonary effort is normal. Breath sounds: Normal breath sounds. Skin: General: Skin is warm and dry. Neurological: General: No focal deficit present. Mental Status: She is alert and oriented to person, place, and time. Psychiatric: Mood and Affect: Mood normal. Behavior: Behavior normal. Thought Content: Thought content normal. Judgment: Judgment normal. Assessment and Plan Encounter Diagnosis ICD-10-CM 1. Essential hypertension I10 2. Closed fracture of right femur, unspecified fracture morphology, unspecified portion of femur, sequela S72.91XS oxyCODONE IR (ROXICODONE) 5 mg immediate release tablet 3. Chronic right-sided low back pain with right-sided sciatica M54.41 G89.29 4. Pain of right hip M25.551 oxyCODONE IR (ROXICODONE) 5 mg immediate release tablet 5. Anticoagulant long-term use Z79.01 6. Claudication of both lower extremities ([facility]) I73.9 7. Moderate COPD (chronic obstructive pulmonary disease) ([facility]) J44.9 Above issues addressed with patient. Patient involved in shared decision making for management of medical issues. History and medications reviewed. Epic updated as needed Refills and/or prescriptions taken care of and meds adjusted as indicated after reviewed history, exam and labs. Health Maintenance reviewed. Updated record and/or ordered tests as recorded. Encouraged on efforts at healthy diet and regular exercise and adequate sleep. Acute pain needing treated with oxycodone at this time. Further evaluation and treatment as indicated. Continue present meds.Continue present management.Further evaluation and treatment as indicated. Alisia Pacheco MD documented in this encounter [facility] 03-02-2023 History of Present illness Narrative Images from the original note were not included. Patient Name: [facility] Location: [place] [address] [place] [id number] Date Of : Date Of Visit: 1940 05/06/2023 MRN# Provider: [id number] Ronen Vaelntin CNP Chief Complaint Patient presents with Urinary Tract Infection Possible UTI urinary urgency,small pain,urinary frequency x 4 days Assessment & Plan 1. Acute cystitis with hematuria ciprofloxacin HCl (CIPRO) 500 MG tablet phenazopyridine (PYRIDIUM) 200 MG tablet 2. Urinary frequency POC Urinalysis Dipstick,Auto UC No follow-ups on file. Medical Decision Making Michelle is a 83 -year-old well, nontoxic-appearing female presenting to the urgent care for burning with urination, increased urinary frequency and suprapubic pain over the last four days. She states she is visiting family from out of town. Reports hx of frequent urinary tract infections. In the past cipro has been the most effective in treatment. She denies flank, abdominal pain or cramping, denies vaginal discharge, rashes or lesions. Denies confusion or neurological symptoms. PE findings unremarkable, afebrile, no tachycardia, abdominal or CVA tenderness. Hypertension noted, states hx of hypertension, denies symptoms. Urinalysis with small hematuria, positive for nitrites and leuks, unable to send for culture due to limited collection amount. Findings are consistent with uti, will treat with cipro given history. Pyridium for symptom relief. Instructed to follow up with PCP for re evaluation. Educated on signs and symptoms to seek immediate care. Additional Clinical Comments Discussed over the counter medications for symptomatic management and side effects of medications. Recommended taking all medications with food and to stop medications if they develop any signs of an allergic reaction. Educated patient and/or guardian about signs and symptoms that would warrant further immediate evaluation. Recommended that they should return to urgent care, make an appointment with their family physician, or go to the emergency room if symptoms persist or get acutely worse. Recommended follow up within the next week with their PCP or to get established with a PCP soon in order to follow up appropriately. Subjective 83 y.o. female presents with Urinary Tract Infection (Possible UTI urinary urgency,small pain,urinary frequency x 4 days ) Urinary Frequency This is a new problem. Episode onset: 4 days ago. The problem occurs every urination. The problem has been waxing and waning. The quality of the pain is described as burning. The pain is mild. There has been no fever. She is Not sexually active. There is No history of pyelonephritis. Associated symptoms include frequency, hesitancy and urgency. Pertinent negatives include no chills, discharge, flank pain, hematuria, nausea, possible , sweats or vomiting. She has tried nothing for the symptoms. Her past medical history is significant for recurrent UTIs. Review Of Systems Review of Systems Constitutional: Negative. Negative for chills, fatigue and fever. HENT: Negative. Respiratory: Negative for cough and shortness of breath. Cardiovascular: Negative. Negative for chest pain. Gastrointestinal: Negative. Negative for abdominal pain, constipation, diarrhea, nausea and vomiting. Genitourinary: Positive for dysuria, frequency, hesitancy and urgency. Negative for flank pain, hematuria, menstrual problem, pelvic pain and vaginal discharge. Musculoskeletal: Negative. Negative for arthralgias and myalgias. Skin: Negative. Negative for rash. Neurological: Negative. Negative for dizziness and headaches. Psychiatric/Behavioral: Negative. Negative for confusion. Medical History History reviewed. No pertinent past medical history. History reviewed. No pertinent surgical history. There is no problem list on file for this patient. Social History Social History Tobacco Use Smoking status: Never Smokeless tobacco: Never Family History No family history on file. Objective Physical Exam BP (!) 143/74 Pulse 60 Temp 97.9 F (36.6 C) (Tympanic) Resp 16 Ht 5' 5 Wt 68 kg (150 lb) SpO2 95% BMI 24.96 kg/m Vision/Hearing Exam:No results found. Physical Exam Constitutional: General: She is not in acute distress. Appearance: Normal appearance. She is not toxic-appearing. HENT: Head: Normocephalic. Mouth/Throat: Mouth: Mucous membranes are moist. Pharynx: Oropharynx is clear. Eyes: Conjunctiva/sclera: Conjunctivae normal. Cardiovascular: Rate and Rhythm: Normal rate and regular rhythm. Heart sounds: Normal heart sounds. No murmur heard. Pulmonary: Effort: Pulmonary effort is normal. No respiratory distress. Breath sounds: Normal breath sounds. No wheezing or rales. Abdominal: General: Bowel sounds are normal. There is no distension. Palpations: Abdomen is soft. Tenderness: There is no abdominal tenderness. There is no right CVA tenderness or left CVA tenderness. Musculoskeletal: General: Normal range of motion. Skin: General: Skin is warm and dry. Neurological: Mental Status: She is alert. Mental status is at baseline. Procedure Notes Procedures Results Recent Results (from the past 168 hour(s)) POC Urinalysis Dipstick,Auto UC Collection Time: 05/06/23 2:32 PM Result Value Ref Range POC Color, Urine Yellow Yellow, Light Yellow, Dark Yellow Clarity, UA Clear Clear Glucose, UA Negative Normal, Negative mg/dL Bilirubin, UA Negative Negative Ketones, UA Negative Negative mg/dL Spec Grav, UA 1.020 1.005 - 1.025 Blood, UA Small (A) Negative pH, UA 5.5 5.0 - 7.0 Protein, UA Trace (A) Negative mg/dL Urobilinogen, UA 0.2 <2.0, 0.2, Normal, Negative, 1.0, 2.0, <1.0 mg/dL Nitrite, UA Positive (A) Negative Leukocyte Esterase, UA Small (A) Negative No orders to display Orders Placed This Visit Orders Placed This Encounter Procedures POC Urinalysis Dipstick,Auto UC Medication List At End Of Visit Current Outpatient Medications Medication Sig Dispense Refill famotidine (PEPCID) 20 MG tablet Take 1 (one) tablet (20 mg total) by mouth daily . gabapentin (NEURONTIN) 300 MG capsule Take 1 capsule by mouth twice daily for 60 days. lisinopriL (PRINIVIL,ZESTRIL) 20 MG tablet TAKE 1 TABLET BY MOUTH FOR BLOOD PRESSURE oxyCODONE (ROXICODONE) 5 MG immediate release tablet TAKE 1 TABLET BY MOUTH EVERY DAY FOR 28 DAYS ciprofloxacin HCl (CIPRO) 500 MG tablet Take 1 (one) tablet (500 mg total) by mouth 2 (two) times a day for 7 days . 14 tablet 0 lisinopriL (PRINIVIL,ZESTRIL) 10 MG tablet Take 1 (one) tablet to 2 (two) tablets (10-20 mg total) by mouth daily . phenazopyridine (PYRIDIUM) 200 MG tablet Take 1 (one) tablet (200 mg total) by mouth 3 (three) times a day as needed for pain . 10 tablet 0 No current facility-administered medications for this visit. Patient Instructions Take the full course of antibiotics with food and plenty of water. I recommend a probiotic and/or yogurt while taking an antibiotic to help prevent GI upset/diarrhea. Make sure you are drinking plenty of water. If you are rapidly worsening, develop fever, nausea, vomiting, back pain, go to the ED for further evaluation. Please follow up with your family doctor in 1 week for repeat urine testing. documented in this encounter [facility] 03-02-2023 Instructions Ronen Valentin CNP - 05/06/2023 2:47 PM EDT Take the full course of antibiotics with food and plenty of water. I recommend a probiotic and/or yogurt while taking an antibiotic to help prevent GI upset/diarrhea. Make sure you are drinking plenty of water. If you are rapidly worsening, develop fever, nausea, vomiting, back pain, go to the ED for further evaluation. Please follow up with your family doctor in 1 week for repeat urine testing. The following attachments cannot be sent through Care Everywhere.UTI (Urinary Tract Infection): Female (G[place]ian)documented in this encounter [facility] 02-16-2023 Note HNO ID: [id number] Author: Tex Johnson APRN.JOSEMANUEL Service: ? Author Type: Nurse Practitioner Type: Progress Notes Filed: 02/16/2023 11:26 AM Note Text: [facility] General Cardiology Electrophysiology PRIMARY CARE PHYSICIAN: Alisia Pacheco [address] [place] [address] CHIEF COMPLAINT: Follow-up status post AV miguel ablation with Dr. Chaudhary on 01/02/2023. HISTORY OF PRESENT ILLNESS (copied from Dr. Chaudhary's office note from 11/21/2022): Ms. Sharpe presents for evaluation of arrhythmia, accompanied by her son. I had evaluated her in August 2020 for atrial fibrillation. The atrial fibrillation has been refractory to medical therapy, including antiarrhythmic drug therapy, and multiple electrical cardioversions. At that time I had recommended that she be treated with a rate controlling strategy, I did not recommend complex left atrial catheter ablation, and I considered AV node catheter ablation with pacemaker implant to be a good option if rate control strategy with medication(s) failed. 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 This is a [employer] single-chamber ventricular pacemaker system. Unfortunately, she has continued to experience symptomatic tachycardia from poorly controlled ventricular response rates from the now permanent atrial fibrillation. She feels poorly, effort intolerance and exertional shortness of breath even with usual activities. She has not had any problems with the pacemaker site left upper chest, such as pain, tenderness, swelling or drainage. She is referred back to me to be considered for the treatment options at this point. I have confirmed and edited as necessary, the PFSH and ROS obtained by others. Interval History: Pleasant 83-year-old female who presents today for follow-up status post AV miguel catheter ablation with Dr. Chaudhary on 01/02/2023. Patient had been doing well status post AV miguel ablation. Unfortunately roughly 2 days post she experienced a fall at home and fractured her right hip. She underwent right hip surgery at [facility] shortly thereafter. She presented with her son today in a wheelchair. They have a physical therapist coming to the home during weekdays. Patient presently denies angina, shortness of breath, worsening activity tolerance, or constitutional symptoms. She does endorse some mild right hip discomfort. Twelve-lead performed in office showed ventricular paced rhythm at a rate of 85. Patient is compliant with her Coumadin regimen with 3 mg on Wednesdays and with 1.5 mg on all other days. She indicates she was previously on beta-jhon therapy but this was discontinued when she began experiencing lower blood pressures. Discussed with patient and son that they could continue their follow-up with Dr. Souza and would not need to follow-up with us moving forward if they would prefer. Patient and son are both agreeable to this. 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) RF catheter ablation of AV node with consequent CHB; already had PPM in place Essential hypertension First degree atrioventricular block History of ankle fracture right; no surgery needed as had started to heal by the time had Xray HLD (hyperlipidemia) HOCM (hypertrophic obstructive cardiomyopathy) ([facility]) IBS (irritable bowel syndrome) with diarrhea and urgency Impaired fasting glucose 10/06/2008 LBBB (left bundle branch block) ekg 06/27/20 Long Q-T syndrome 01/21/2017 halfway (current) use of 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 COUMADIN MR (mitral regurgitation) with assymetric hypertrophic cardiomyopathy 09/2001 Nonrheumatic mitral valve regurgitation Osteoporosis Pacemaker-dependent due 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 Monson follows for benign tumor removed 2002 PAST SURGICAL HISTORY Procedure Laterality Date ABLATE AV NODE FUNCTION 01/02/2023 RF catheter ablation of AV (more content not included)... [facility] 02-16-2023 History of Present illness Narrative [facility] Cardiology Electrophysiology PRIMARY CARE PHYSICIAN: Alisia Pacheco [address] [place] [address] CHIEF COMPLAINT: Follow-up status post AV miguel ablation with Dr. Chaudhary on 01/02/2023. HISTORY OF PRESENT ILLNESS (copied from Dr. Chaudhary's office note from 11/21/2022): Ms. Sharpe presents for evaluation of arrhythmia, accompanied by her son. I had evaluated her in August 2020 for atrial fibrillation. The atrial fibrillation has been refractory to medical therapy, including antiarrhythmic drug therapy, and multiple electrical cardioversions. At that time I had recommended that she be treated with a rate controlling strategy, I did not recommend complex left atrial catheter ablation, and I considered AV node catheter ablation with pacemaker implant to be a good option if rate control strategy with medication(s) failed. 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 This is a [employer] single-chamber ventricular pacemaker system. Unfortunately, she has continued to experience symptomatic tachycardia from poorly controlled ventricular response rates from the now permanent atrial fibrillation. She feels poorly, effort intolerance and exertional shortness of breath even with usual activities. She has not had any problems with the pacemaker site left upper chest, such as pain, tenderness, swelling or drainage. She is referred back to me to be considered for the treatment options at this point. I have confirmed and edited as necessary, the PFSH and ROS obtained by others. Interval History: Pleasant 83-year-old female who presents today for follow-up status post AV miguel catheter ablation with Dr. Chaudhary on 01/02/2023. Patient had been doing well status post AV miguel ablation. Unfortunately roughly 2 days post she experienced a fall at home and fractured her right hip. She underwent right hip surgery at [facility] shortly thereafter. She presented with her son today in a wheelchair. They have a physical therapist coming to the home during weekdays. Patient presently denies angina, shortness of breath, worsening activity tolerance, or constitutional symptoms. She does endorse some mild right hip discomfort. Twelve-lead performed in office showed ventricular paced rhythm at a rate of 85. Patient is compliant with her Coumadin regimen with 3 mg on Wednesdays and with 1.5 mg on all other days. She indicates she was previously on beta-jhon therapy but this was discontinued when she began experiencing lower blood pressures. Discussed with patient and son that they could continue their follow-up with Dr. Souza and would not need to follow-up with us moving forward if they would prefer. Patient and son are both agreeable to this. 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) RF catheter ablation of AV node with consequent CHB; already had PPM in place Essential hypertension First degree atrioventricular block History of ankle fracture right; no surgery needed as had started to heal by the time had Xray HLD (hyperlipidemia) HOCM (hypertrophic obstructive cardiomyopathy) (HCC) IBS (irritable bowel syndrome) with diarrhea and urgency Impaired fasting glucose 10/06/2008 LBBB (left bundle branch block) ekg 06/27/20 Long Q-T syndrome 01/21/2017 halfway (current) use of 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 COUMADIN MR (mitral regurgitation) with assymetric hypertrophic cardiomyopathy 09/2001 Nonrheumatic mitral valve regurgitation Osteoporosis Pacemaker-dependent due 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 Monson follows for benign tumor removed 2002 PAST SURGICAL HISTORY Procedure Laterality Date ABLATE AV NODE FUNCTION 01/02/2023 RF catheter ablation of AV node; indication: drug refractory atrial fibrillation; [facility] Dr. Chaudhary BLADDER SURGERY HX 2004 tumor removed from bladder CARDIOVERSION ELECTIVE ARRHYTHMIA INTERNAL SPX 04/2019 CARDIOVERSION ELECTIVE ARRHYTHMIA INTERNAL SPX 04/24/2020 [facility] CARDIOVERSION ELECTIVE ARRHYTHMIA INTERNAL SPX 05/2017 CARDIOVERSION ELECTIVE ARRHYTHMIA INTERNAL SPX 10/2017 CARDIOVERSION ELECTIVE ARRHYTHMIA INTERNAL SPX 10/2018 HEART VALVE REPAIR 07/2018 SEPTAL MYECTOMY AND MVP WITH ANNULOPLASTY WITH A #33 RM BAND, B/L PULMONARY VEIN ISOLATION WITH MULTIPLE OCCASIONA SOF THE ARTICURE RADIOFREQUENCY CLAMP AND CLIPPING OF THE LEFT ATRIAL APPENDAGE WITH A 50MM ARTICURE CLIP PACEMAKER,SINGLE,RATE RESPON Left 12/10/[address] [facility] Dr. Souza; [employer] single-chamber pacemaker; indication: symptomatic tachycardia-bradycardia syndrome VENTRICULOMYOTOMY-MYECTOMY 07/2018 septal myectomy for HCM; [facility], Dr. Jo Social History Tobacco Use Smoking status: Former Packs/day: 1.00 Years: 58.00 Pack years: 58.00 Types: Cigarettes Start date: 1956 Quit date: 07/02/2005 Years since quittin.6 Smokeless tobacco: Never Tobacco comments: No smoking in childhood home. Spouse quit smoking years before patient did. Vaping Use Vaping Use: Never used Substance Use Topics Alcohol use: Yes Comment: occasional Drug use: No Family History Problem Relation Age of Onset Hypertension Father other (allergic reaction) Father from allergic reaction Stroke Mother other (Myocardial infarction) Paternal Grandmother 80 ALLERGIES Allergen Reactions Zyloprim [Allopurin* Rash Environmental [Othe* Intolerance rhinitis Tramadol Other: See Comments made patient woozy/dizzy MEDICATIONS: midodrine (PROAMITINE) 5 mg tablet Take 5 mg by mouth three times daily. tamsulosin (FLOMAX) 0.4 mg Take 0.4 mg by mouth once daily. acetaminophen 325 mg cap Take 650 mg by mouth as needed for pain. OXYGEN, HOME THERAPY, Inhale 2 L/min as instructed as directed. At night lisinopril (ZESTRIL) 10 mg tablet Take 1-2 tablets by mouth once daily. As directed famotidine (PEPCID) 20 mg tablet Take 1 tablet by mouth once daily. nystatin-triamcinolone (MYCOLOG) ointment Apply sparingly to perineum twice daily for irritation/infection. fluticasone-salmeterol (ADVAIR, WIXELA) 250-50 mcg/dose inhaler Inhale 1 Puff as instructed twice daily. HYDROcodone-acetaminophen (NORCO) 5-325 mg per tablet Take 0.5 tablets by mouth every 6 hours as needed. nitrofurantoin monohydrate and macrocrystal (MACROBID) 100 mg capsule Take 100 mg by mouth once daily. furosemide (LASIX) 40 mg tablet Take 40 mg by mouth once daily. gabapentin (NEURONTIN) 300 mg capsule Take 300 mg by mouth twice daily. warfarin (COUMADIN) 3 mg tablet 3 mg W and Thurs, 1.5 mg all other days albuterol HFA (VENTOLIN HFA) 90 mcg/actuation inhaler Inhale 2 Puffs as instructed every 4 hours as needed for wheezing/shortness of breath. alendronate (FOSAMAX) 70 mg tablet Take 1 tablet by mouth one time a week. Take with a full glass of water, on an empty stomach; do NOT lie down for 30minutes. azelastine (ASTELIN,ASTEPRO) 0.1% nasal spray Use 1-2 Sprays in each nostril twice daily as needed. therapeutic multivitamin (THERA VITAMIN) tablet Take 1 tablet by mouth daily with breakfast. Cholecalciferol, Vitamin D3, 1,000 unit cap Take 1 capsule by mouth once daily. metoprolol succinate ER (TOPROL XL) 100 mg Take 100 mg by mouth once daily. (Patient not taking: No sig reported) potassium chloride (K-TAB) 10 mEq tablet Take 1 tablet by mouth once daily. (Patient not taking: No sig reported) fluticasone (FLONASE) 50 mcg/actuation nasal spray USE 2 SPRAYS IN EACH NOSTRIL ONCE DAILY. RINSE MOUTH AFTER USE. (Patient not taking: Reported on 02/16/2023) ipratropium (ATROVENT) 0.02 % nebulizer solution Use 2.5 mL via nebulizer four times daily as needed for Wheezing/Shortness of Breath. Use over 5-15minutes. (Patient not taking: Reported on 02/16/2023) REVIEW OF SYSTEMS: Review of Systems Constitutional: Negative for chills, fatigue and fever. Respiratory: Negative for apnea, cough, chest tightness, shortness of breath and wheezing. Cardiovascular: Negative for chest pain, palpitations and leg swelling. Gastrointestinal: Negative for abdominal distention, abdominal pain, constipation, diarrhea, nausea and vomiting. Genitourinary: Negative for difficulty urinating, dysuria and hematuria. Musculoskeletal: Negative for arthralgias. Neurological: Negative for dizziness, weakness, light-headedness and headaches. Psychiatric/Behavioral: Negative for agitation, behavioral problems, confusion and suicidal ideas. PHYSICAL EXAMINATION: BP 99/61 Pulse 80 Ht 5' 6 (1.68m) Wt 140 lb (63.5kg) SpO2 94% BMI 22.61 kg/(m^2). Physical Exam Constitutional: Appearance: Normal appearance. Cardiovascular: Rate and Rhythm: Normal rate and regular rhythm. Pulses: Normal pulses. Radial pulses are 2+ on the right side and 2+ on the left side. Posterior tibial pulses are 2+ on the right side and 2+ on the left side. Heart sounds: Normal heart sounds. Comments: Sinus rhythm with a ventricular rate of 85. Pulmonary: Effort: Pulmonary effort is normal. Breath sounds: Normal breath sounds. Abdominal: General: Bowel sounds are normal. Palpations: Abdomen is soft. Musculoskeletal: Right lower leg: No edema. Left lower leg: No edema. Skin: General: Skin is warm and dry. Neurological: Mental Status: She is alert and oriented to person, place, and time. Psychiatric: Mood and Affect: Mood normal. Behavior: Behavior normal. CARDIOVASCULAR MEDICINE TESTING: EKG 11/21/2022 Atrial fibrillation with rapid ventricular response with a ventricular rate of 110. LBBB. QRS 140. QT/QTc 366/495. When taking into consideration LBBB true QT is roughly 455. Echo 10/14/2022 Normal LV size. Mild concentric left ventricular hypertrophy. Estimated ejection fraction is 35%. I personally reviewed the EKG and echocardiogram. PLAN AND RECOMMENDATIONS: ASSESSMENT/PLAN: 1. Permanent atrial fibrillation (HCC) - ICD9: 427.31, ICD10: I48.21 (primary diagnosis) Longstanding history of permanent atrial fibrillation. Current treatment regimen includes Toprol-XL 100 mg daily as well as Coumadin 3 mg Wednesdays and with 1.5 mg on all other days. [id number] of 5 secondary to age, gender, CHF, and hypertension. Patient continued to experience tachycardic rates despite undergoing single-chamber [employer] permanent pacemaker in [address] Souza. Patient subsequently underwent successful AV miguel ablation with Dr. Chaudhary on 01/02/2023. She has undergone numerous cardioversions in the past. 2. 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 3. S/P placement of cardiac pacemaker - ICD9: V45.01, ICD10: Z95.0 As above. 4. Essential hypertension - ICD9: 401.9, ICD10: I10 BP today 99/61. 5. At risk for stroke - ICD9: V15.89, ICD10: Z91.89 As above. No follow-ups on file. Tex Johnson APRN.PRODUCT SAFETY ENGINEER documented in this encounter [facility] 02-16-2023 Nurse Note No cardiac complaints today. No Gunn MA documented in this encounter [facility] 02-12-2023 Miscellaneous Notes Attempted to contact [facility] [employer] but no answer. Left providers message an confidential voice mailbox. Noted Will follow along with them for orders, etc. [employer] calling to let PCP know patient will be moving back home to [place] from her daughter's home in [place] this weekend. They will be her home health care agency. [facility] phone # [phone]. Jessica Haider RN documented in this encounter [facility] 02-11-2023 Miscellaneous Notes Daughter aware of same. Tracker updated. Take 3 mg today, and Thursday, then 1.5 mg daily except 3 mg on Thursday, Thursday and Thursday. Recheck INR in 2 weeks [facility] nurse @ [facility] calling with INR result =1.7. Patient is currently taking Coumadin 3 mg on Thu/ and 1.5 mg Coumadin on all other days. She has no signs of bleeding or bruising. She has no recent changes in diet or medications. Jessica Haider RN documented in this encounter [facility] 02-10-2023 Miscellaneous Notes Pts daughter called and is notified of providers message and instructions. She voices understanding. She states she wrote down all of that information except the part about increasing it back up to the 40 mg for fluid retention. [facility] Liberty Bravo RN The instructions for taking lower dose Lasix is on the AVS under patient instructions--did not change the med list in case needed to go back up and to avoid canceling the RX at the pharmacy. She may increase Lasix back up to 40 mg as I had instructed on her AVS in the case of increased fluid retention. See below Agree with ER evaluation if develops severe swelling and/or siginficant increased shortness of breath. Below is copy of instructions from AVS (this should have been printed and given to them at appointment): Okay to stay off the omeprazole. Famotidine instead is fine. Monitor BP and heart rate since not taking metoprolol since yesterday--might go up since stopped taking 100 mg dose. If goes up, try half pill once daily plus stop Midodrine. May stop midodrine when consistently staying over 100. Lasix--okay to try decrease to 20 mg dose. May increase up to 40 mg if needed for fluid retention. Decreased lisinopril to 10 mg pill--may increase to 20 mg if needed. Check with Dr. Curiel about follow up for urinary retention issues and Flomax. Protocol recommends see provider in 4 hours. Pt is staying with her daughter in [place]. Pts daughter reports that when they had come in for appointment on 02/04/23 the provider had decreased the Pt to Lasix 20 mg daily. Looking at med list and providers notes I didn't see this change. Daughter thinks she needs to go back up to the 40 mg. She said with the other medication changes her mother BP has gotten better when PT was there was 117/67, just now 137/94 HR 83. Daughter wanted to know what dose of Lasix the provider wanted her mother on. Please advise if you would like Pt to go to EC or ER. Advised patients daughter that if symptoms get worse to be evaluated in Urgent Care or ER. Reason for Disposition SEVERE leg swelling (e.g., swelling extends above knee, entire leg is swollen, weeping fluid) Answer Assessment - Initial Assessment Questions 1. ONSET: Noticed yesterday evening when giving a shower. 2. LOCATION: R tyler, ankle and foot. 3. SEVERITY: - Localized - small area of swelling localized to one leg - MILD pedal edema - swelling limited to foot and ankle, pitting edema < 1/4 inch (6 mm) deep, rest and elevation eliminate most or all swelling - MODERATE edema - swelling of lower leg to knee, pitting edema > 1/4 inch (6 mm) deep, rest and elevation only partially reduce swelling - SEVERE edema - swelling extends above knee, facial or hand swelling present Moderate swelling, daughter reports it is pitting. Elevation does help. 4. REDNESS: Denies 5. PAIN: 2/10 with leg elevated, 6/10 when walking reports a dull constant pain. If she walks slow it is better. Took 1/2 Hydrocodone before Pt came and it helps. 6. FEVER: Denies 7. CAUSE: Decreased Lasix and leg not elevated high enough. 8. MEDICAL HISTORY: Pt reports pacemaker, open heart, and an ablation right before she broke her hip, heart failure, lymphoma, and bladder cancer. Pt denies kidney disease and liver failure. 9. RECURRENT SYMPTOM: Pt has issues with swelling, is on Lasix. Swelling has always been on R side. 10. OTHER SYMPTOMS: Denies chest pain, difficulty breathing. 11. : Postmenopausal Protocols used: Leg Swelling and [id number] documented in this encounter [facility] 02-04-2023 Note HNO ID: [id number] Author: Alisia Pacheco MD Service: ? Author Type: Physician Type: Progress Notes Filed: 03/09/2023 12:07 AM Note Text: This note was created using ServiceNowriter. Subjective Michelle Sharpe is a 83 year old female. Patient presents with: Follow Up SUBJECTIVE: Michelle Sharpe is a 83 year old year old lady here today for follow up appointment for review of medical conditions. Has to urinate frequently with the lasix. Did not drink much fluid. BP has been low the past few days. Some dizziness and lightheadedness At home pushing fluids to help with getting BP up. Drink more throughout the day. Did not get back to 80s. Doing okay on hydrocodone instead of oxycodone. Only needs half pill at bedtime. Got 28 pills. Sometimes just needs Tylenol. Gabapentin twice daily now at home. Prefers to follow up with me for low dose hydrocodone and gabapentin instead of going to Dr. Rodríguez. Had issues with bladder emptying. Has to go often since started on Tamsulosin. Coumadin 1.5 mg daily except Wed and Thur 3 mg. Staying in [place] at [facility]. 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) RF catheter ablation of AV node with consequent CHB; already had PPM in place Essential hypertension First degree atrioventricular block History of ankle fracture right; no surgery needed as had started to heal by the time had Xray HLD (hyperlipidemia) HOCM (hypertrophic obstructive cardiomyopathy) (HCC) IBS (irritable bowel syndrome) with diarrhea and urgency Impaired fasting glucose 10/06/2008 LBBB (left bundle branch block) ekg 06/27/20 Long Q-T syndrome 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 COUMADIN MR (mitral regurgitation) with assymetric hypertrophic cardiomyopathy 09/2001 Nonrheumatic mitral valve regurgitation Osteoporosis Pacemaker-dependent due to [place] cardiac rhythm insufficient to support life Permanent atrial fibrillation (HCC) 11/21/2022 Permanent atrial fibrillation with rapid ventricular response (HCC) 11/21/2022 Persistent atrial fibrillation (HCC) Presence of permanent cardiac pacemaker 01/15/2022 [employer] single chamber pacemaker; indication: symptomatic tachycardia-bradycardia syndrome Pulmonary emphysema (HCC) 05/26/2017 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 Monson follows for benign tumor removed 2002 Current Outpatient Medications Medication Sig midodrine (PROAMITINE) 5 mg tablet Take 5 mg by mouth three times daily. tamsulosin (FLOMAX) 0.4 mg Take 0.4 mg by mouth once daily. acetaminophen (TYLENOL) 325 mg cap Take by mouth. OXYGEN, HOME THERAPY, Inhale 2 L/min as instructed as directed. At night nystatin-triamcinolone (MYCOLOG) ointment Apply sparingly to perineum twice daily for irritation/infection. fluticasone-salmeterol (ADVAIR, WIXELA) 250-50 mcg/dose inhaler Inhale 1 Puff as instructed twice daily. HYDROcodone-acetaminophen (NORCO) 5-325 mg per tablet 0.5 tab daily PRN furosemide (LASIX) 40 mg tablet Take 40 mg by mouth once daily. gabapentin (NEURONTIN) 300 mg capsule 300 mg twice daily. warfarin (COUMADIN) 3 mg tablet 3 mg W and Thurs, 1.5 mg all other days albuterol HFA (VENTOLIN HFA) 90 mcg/actuation inhaler Inhale 2 Puffs as instructed every 4 hours as needed for wheezing/shortness of breath. alendronate (FOSAMAX) 70 mg tablet Take 1 tablet by mouth one time a week. Take with a full glass of water, on an empty stomach; do NOT lie down for 30minutes. Cholecalciferol, Vitamin D3, 1,000 unit cap Take 1 capsule by mouth once daily. lisinopril (ZESTRIL) 10 mg tablet Take 1-2 tablets by mouth once daily. As directed famotidine (PEPCID) 20 mg tablet Take 1 tablet by mouth once daily. nitrofurantoin monohydrate and macrocrystal (MACROBID) 100 mg capsule Take by mouth. metoprolol succinate ER (TOPROL XL) 100 mg Take 100 mg by mouth once daily. (Patient not taking: Reported on 02/04/2023) potassium chloride (K-TAB) 10 mEq tablet Take 1 tablet by mouth once daily. (Patient not taking: Reported on 02/04/2023) warfarin (COUMADIN) 2 mg tablet Taking 2mg on Thu AND Thu and 1.5mg the other days. (Patient not taking: Reported on 02/04/2023) warfarin (COUMADIN) 1 mg tablet TAKE 1 TABLET BY MOUTH ON , , . TAKE 1 AND 1/2 TABLETS ON THU, THU, SUN, MON (Patient not taking: Reported on 02/04/2023) fluticasone (FLONASE) 50 mcg/actuation nasal spray USE 2 SPRAYS IN EA (more content not included)... [facility] 02-04-2023 Instructions Alisia Pacheco MD - 02/04/2023 2:14 PM EDT Okay to stay off the omeprazole. Famotidine instead is fine. Monitor BP and heart rate since not taking metoprolol since yesterday--might go up since stopped taking 100 mg dose. If goes up, try half pill once daily plus stop Midodrine. May stop midodrine when consistently staying over 100. Lasix--okay to try decrease to 20 mg dose. May increase up to 40 mg if needed for fluid retention. Decreased lisinopril to 10 mg pill--may increase to 20 mg if needed. Check with Dr. Curiel about follow up for urinary retention issues and Flomax. documented in this encounter [facility] 02-04-2023 History of Present illness Narrative This note was created using ServiceNowriter. Subjective Michelle Sharpe is a 83 year old female. Patient presents with: Follow Up SUBJECTIVE: iMchelle Sharpe is a 83 year old year old lady here today for follow up appointment for review of medical conditions. Has to urinate frequently with the lasix. Did not drink much fluid. BP has been low the past few days. Some dizziness and lightheadedness At home pushing fluids to help with getting BP up. Drink more throughout the day. Did not get back to 80s. Doing okay on hydrocodone instead of oxycodone. Only needs half pill at bedtime. Got 28 pills. Sometimes just needs Tylenol. Gabapentin twice daily now at home. Prefers to follow up with me for low dose hydrocodone and gabapentin instead of going to Dr. Rodríguez. Had issues with bladder emptying. Has to go often since started on Tamsulosin. Coumadin 1.5 mg daily except Wed and Thur 3 mg. Staying in [place] at [facility]. 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) RF catheter ablation of AV node with consequent CHB; already had PPM in place Essential hypertension First degree atrioventricular block History of ankle fracture right; no surgery needed as had started to heal by the time had Xray HLD (hyperlipidemia) HOCM (hypertrophic obstructive cardiomyopathy) (HCC) IBS (irritable bowel syndrome) with diarrhea and urgency Impaired fasting glucose 10/06/2008 LBBB (left bundle branch block) ekg 06/27/20 Long Q-T syndrome 01/21/2017 [place] (current) use of 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 COUMADIN MR (mitral regurgitation) with assymetric hypertrophic cardiomyopathy 09/2001 Nonrheumatic mitral valve regurgitation Osteoporosis Pacemaker-dependent due 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 Monson follows for benign tumor removed 2002 Current Outpatient Medications Medication Sig midodrine (PROAMITINE) 5 mg tablet Take 5 mg by mouth three times daily. tamsulosin (FLOMAX) 0.4 mg Take 0.4 mg by mouth once daily. acetaminophen (TYLENOL) 325 mg cap Take by mouth. OXYGEN, HOME THERAPY, Inhale 2 L/min as instructed as directed. At night nystatin-triamcinolone (MYCOLOG) ointment Apply sparingly to perineum twice daily for irritation/infection. fluticasone-salmeterol (ADVAIR, WIXELA) 250-50 mcg/dose inhaler Inhale 1 Puff as instructed twice daily. HYDROcodone-acetaminophen (NORCO) 5-325 mg per tablet 0.5 tab daily PRN furosemide (LASIX) 40 mg tablet Take 40 mg by mouth once daily. gabapentin (NEURONTIN) 300 mg capsule 300 mg twice daily. warfarin (COUMADIN) 3 mg tablet 3 mg W and Thurs, 1.5 mg all other days albuterol HFA (VENTOLIN HFA) 90 mcg/actuation inhaler Inhale 2 Puffs as instructed every 4 hours as needed for wheezing/shortness of breath. alendronate (FOSAMAX) 70 mg tablet Take 1 tablet by mouth one time a week. Take with a full glass of water, on an empty stomach; do NOT lie down for 30minutes. Cholecalciferol, Vitamin D3, 1,000 unit cap Take 1 capsule by mouth once daily. lisinopril (ZESTRIL) 10 mg tablet Take 1-2 tablets by mouth once daily. As directed famotidine (PEPCID) 20 mg tablet Take 1 tablet by mouth once daily. nitrofurantoin monohydrate and macrocrystal (MACROBID) 100 mg capsule Take by mouth. metoprolol succinate ER (TOPROL XL) 100 mg Take 100 mg by mouth once daily. (Patient not taking: Reported on 02/04/2023) potassium chloride (K-TAB) 10 mEq tablet Take 1 tablet by mouth once daily. (Patient not taking: Reported on 02/04/2023) warfarin (COUMADIN) 2 mg tablet Taking 2mg on Thu & Thu and 1.5mg the other days. (Patient not taking: Reported on 02/04/2023) warfarin (COUMADIN) 1 mg tablet TAKE 1 TABLET BY MOUTH ON , , . TAKE 1 & 1/2 TABLETS ON THU, THU, THU, MON (Patient not taking: Reported on 02/04/2023) fluticasone (FLONASE) 50 mcg/actuation nasal spray USE 2 SPRAYS IN EACH NOSTRIL ONCE DAILY. RINSE MOUTH AFTER USE. azelastine (ASTELIN,ASTEPRO) 0.1% nasal spray Use 1-2 Sprays in each nostril twice daily as needed. ipratropium (ATROVENT) 0.02 % nebulizer solution Use 2.5 mL via nebulizer four times daily as needed for Wheezing/Shortness of Breath. Use over 5-15minutes. therapeutic multivitamin (THERA VITAMIN) tablet Take 1 tablet by mouth daily with breakfast. No current facility-administered medications for this visit. Review of Systems Objective BP 96/64 Pulse 64 Resp 14 Ht 152.4 cm (5') Wt 61.7 kg (136 lb) BMI 26.56 kg/m Last 5 Encounter Wt Readings: Date: Wt: 02/04/2023 61.7 kg (136 lb) 12/20/2022 64 kg (141 lb) 11/21/2022 63.5 kg (140 lb) 11/14/2022 63.5 kg (140 lb) 09/22/2022 62.6 kg (138 lb 0.1 oz) No waist measurement recorded Estimated body mass index is 26.56 kg/m as calculated from the following: Height as of this encounter: 152.4 cm (5'). Weight as of this encounter: 61.7 kg (136 lb). Last 5 Encounter BP Readings: Date: BP: 02/04/2023 96/64 01/02/2023 140/79 12/20/2022 122/82 11/24/2022 129/88 11/21/2022 121/74 Physical Exam Constitutional: Appearance: Normal appearance. HENT: Head: Normocephalic. Eyes: Conjunctiva/sclera: Conjunctivae normal. Cardiovascular: Rate and Rhythm: Normal rate and regular rhythm. Heart sounds: Normal heart sounds. Pulmonary: Effort: Pulmonary effort is normal. Breath sounds: Normal breath sounds. Musculoskeletal: Right lower le+ Pitting Edema present. Left lower le+ Pitting Edema present. Skin: General: Skin is warm and dry. Neurological: General: No focal deficit present. Mental Status: She is alert and oriented to person, place, and time. Psychiatric: Mood and Affect: Mood normal. Behavior: Behavior normal. Thought Content: Thought content normal. Judgment: Judgment normal. Assessment and Plan Encounter Diagnosis ICD-10-CM 1. Encounter for long-term current use of medication Z79.899 COMP METABOLIC PANEL MAGNESIUM BLD CBC 2. Gastroesophageal reflux disease, unspecified whether esophagitis present K21.9 3. Essential hypertension I10 COMP METABOLIC PANEL MAGNESIUM BLD CBC 4. Hypotension, unspecified hypotension type I95.9 COMP METABOLIC PANEL MAGNESIUM BLD CBC 5. Anticoagulant long-term use Z79.01 Above issues addressed with patient. Patient involved in shared decision making for management of medical issues. History and medications reviewed. Epic updated as needed Refills and/or prescriptions taken care of and meds adjusted as indicated after reviewed history, exam and labs. Health Maintenance reviewed. Updated record and/or ordered tests as recorded. Encouraged on efforts at healthy diet and regular exercise and adequate sleep. I spent a total of 55 minutes on the date of the service which included [id number] patient care, completing clinical documentation, obtaining and/or reviewing separately obtained history, performing a medically appropriate examination, counseling and educating the patient/family/caregiver, and communicating with other HCPs (not separately reported). Alisia Pacheco MD documented in this encounter [facility] 02-03-2023 Miscellaneous Notes Noted Will discuss at appointment Phoned daughter, Linda, and given provider's message below with verbalized understanding. Linda wrote everything down. Patient is scheduled for in office appt tomorrow with pcp. Patient unable to do VV - does not have MC. Daughter will work on this for future. Daughter reports the medications patient is taking that affect BP: Lasix 40 mg daily (pt told daughter Dr. Bland instructed her to take as needed but is not written on bottle) Lisinopril 20 mg daily Metoprolol 100 mg daily (pt told daughter Dr. Bland told her to take as needed, but not written on the bottle) Coumadin 3 mg WTh, 1.5 mg all other days. Losartan 25 mg is on med list, but daughter does not believe patient has that one (will ask pt about it when she wakes up). Reports patient has a new medication prescribed by the hospital: tamsulosin (flomax) 0.4 mg daily. Daughter reports when she collected the medication bottles from patient's home, noted all kinds of medications, some had , so not sure what patient is really suppose to be taking. Daughter reports the fluids yesterday helped, readings gradually increased: 87/51, 94/55, 94/60, 105/70. Pt is not awake yet to check this morning. Discussed s/s of dehydration: dry lips, DIAZ, weakness, decreased urine output. Discussed s/s fluid retention: swelling in feet/lower legs/hands, SOB. Daughter aware pt should get 6-8 cups fluids daily, water is best. Did phone Emily [facility], but she was driving and connection was poor. Faxed this encounter per Emily request: fax # [phone] (received confirmation) If no recent change in dose of coumadin, recheck in 2 weeks for stability. If recent change, recheck in 1 week. Reviewed discharge summary. Apaprently, Lisinopril and Lasix were held, but got SOB so was resumed. Since BP dropped when tried to stop midodrine, it was resumed. Looks like needing metoprolol to control heart rate. Reviewed had EP study for issues with a fib. Difficult to control heart rate despite meds and pacemaker. Noted has appointment 02/16 with cardiology. The discharge summary indicated that hope was that BP would improve after discharge so could get off midodrine. Verify how much fluid patient drinks per day and if any signs of dehydration. Note that dehydration will make BP meds cause bigger BP decrease, so needs to stay hydrated. How were BPs since called yesterday? If any signs of dehydration, can try lowering Lasix to 20 mg once daily and monitor for signs of fluid retention. Have patient drink 2 cups of water under 5 minutes for SBPs under 90 to get BP up usually within 30 minutes. If BP still low despite hydration, can try lowering Lisinopril to 10 mg once daily (can cut dose of lisinopril to half pill daily). Will reach out to cardiology to see if they want to adjust meds differently. Make sure our medlist matches what she is taking at home. See if they want to do Virtual Visit. Daughter, Linda reports patient was prescribed midodrine 5 mg daily for low BP by Dr. Smith in [facility]. Reports patient is also taking lisinopril 20 mg daily and metoprolol 100 mg daily for high BP. Daughter reports BP today- 90's/50's, also 87/51, HR- 80-90. Yesterday's BP readings 111/64, 94/60. Reports she is probably not drinking enough fluids and will work on that. Daughter concerned as she is taking medication for low BP, and 2 medications for high BP. Please advise daughter. Also see message below from [facility] nurse. Pt. staying with daughter in [place] for about 1 week they are using [facility] care. Last INR done on 01/01 was 2.2. She is taking 3 mg coumadin on Thu, and 1.5 all other days. When do you want this rechecked? Also she is on Midirone 5 mg, lasix 40 mg, Lisinopril 20 mg, Metoprolol 100 mg. How often do you want Vital signs done? Please advise. documented in this encounter [facility] 01-29-2023 Miscellaneous Notes Silvia from [facility] notified of providers message and verbalized understanding. OK for [facility] Silvia from [facility] calls and states that patient is being discharged from [facility] on 01/30/2023 with the diagnosis of right hip fracture. Silvia asking if provider willing to follow patient with orders for detention, physical therapy, and occupational therapy. If agreeable please give Silvia a call back . Thank you, Linda Elmore RN documented in this encounter [facility] 01-01-2023 Note HNO ID: [id number] Author: Bebeto Chaudhary MD Service: ? Author Type: Physician Type: Progress Notes Filed: 01/01/2023 3:13 PM Note Text: [facility] Electrophysiology (EP) Received blood test result for INR 01/01/2023 INR 2.2. She is scheduled for procedure tomorrow 01/02/2023, this INR value is fine. Bebeto Chaudhary MD January 01, 2023 3:12 PM [facility] 01-01-2023 History of Present illness Narrative [facility] Electrophysiology (EP) Received blood test result for INR 01/01/2023 INR 2.2. She is scheduled for procedure tomorrow 01/02/2023, this INR value is fine. Bebeto Chaudhary MD January 01, 2023 3:12 PM documented in this encounter [facility] 12-21-2022 Miscellaneous Notes Patient notified that vaginal cultures are negative. Can use mycolog for itching. Will call if needs treatment from urine culture. Lou Pascual APRN.CNP documented in this encounter [facility] [facility] 12[facility]20-2022 Note HNO ID: [id number] Author: Lou Pascual APRN.CNP Service: ? Author Type: Nurse Practitioner Type: Progress Notes Filed: 12/20/2022 11:58 AM Note Text: Subjective The history is provided by the patient. No division director was used. HPI Michelle Sharpe is a 82 year old female who presents today for CC of vaginal burning AND itching and urinary frequency for one day. She has not used any treatment. BP 122/82 Pulse 75 Temp 36.6 ?C (97.9 ?F) Resp 20 Wt 64 kg (141 lb) SpO2 93% BMI 27.54 kg/m? Social History Tobacco Use Smoking status: Former Packs/day: 1.00 Years: 58.00 Pack years: 58.00 Types: Cigarettes Start date: 1955 Quit date: 07/02/2005 Years since quittin.4 Smokeless tobacco: Never Tobacco comments: No smoking in childhood home. Spouse quit smoking years before patient did. Vaping Use Vaping Use: Never used Substance Use Topics Alcohol use: Yes Comment: occasional Drug use: No PAST MEDICAL HISTORY Diagnosis Date Anticoagulant long-term use At risk for stroke Atypical atrial flutter (HCC) Bone metastases (HCC) 03/27/2017 Bradycardia 01/15/2022 Chronic diastolic heart failure (HCC) Chronic heart failure with preserved ejection fraction (HFpEF) (HCC) Essential hypertension First degree atrioventricular block History of ankle fracture right; no surgery needed as had started to heal by the time had Xray HLD (hyperlipidemia) HOCM (hypertrophic obstructive cardiomyopathy) (HCC) IBS (irritable bowel syndrome) with diarrhea and urgency Impaired fasting glucose 10/06/2008 LBBB (left bundle branch block) ekg 06/27/20 Long Q-T syndrome 01/21/2017 halfway (current) use of 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 COUMADIN MR (mitral regurgitation) with assymetric hypertrophic cardiomyopathy 09/2001 Nonrheumatic mitral valve regurgitation Osteoporosis Permanent atrial fibrillation (HCC) 11/21/2022 Permanent atrial fibrillation with rapid ventricular response (HCC) 11/21/2022 Persistent atrial fibrillation (HCC) Presence of permanent cardiac pacemaker 01/15/2022 [employer] single chamber pacemaker; indication: symptomatic tachycardia-bradycardia syndrome Pulmonary emphysema (HCC) 05/26/2017 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 Monson follows for benign tumor removed 2002 I have confirmed and edited as necessary, the [facility] Review of Systems Constitutional: Negative for chills and fever. Gastrointestinal: Negative for abdominal pain, nausea and vomiting. Genitourinary: Positive for dysuria. Negative for flank pain, frequency, hematuria and urgency. Vaginal burning and itching Objective Physical Exam Vitals and nursing note reviewed. Exam conducted with a pensionholder information clerk present. Constitutional: Appearance: Normal appearance. Abdominal: General: Bowel sounds are normal. There is no abdominal bruit. Palpations: Abdomen is not rigid. There is no mass or pulsatile mass. Tenderness: There is no abdominal tenderness. There is no guarding or rebound. Negative signs include Kat's sign and McBurney's sign. Genitourinary: General: Normal vulva. Vagina: No vaginal discharge or erythema. Cervix: No friability. Neurological: Mental Status: She is alert and oriented to person, place, and time. Psychiatric: Mood and Affect: Affect normal. Component Latest Ref Rng AND Units 12/20/2022 GLUCOSE UA (POCT) Negative mg/dL Negative BILIRUBIN UA (POCT) Negative Negative KETONE UA (POCT) Negative mg/dL Negative SPECIFIC GRAVITY UA (POCT) 1.005 - 1.030 1.020 HEMOGLOBIN/BLOOD UA (POCT) Negative Trace-intact (A) PH UA (POCT) 4.5 - 8.0 5.0 PROTEIN UA (POCT) Negative mg/dL Negative UROBILINOGEN UA (POCT) Normal E.U./dL 0.2 NITRITE UA (POCT) Negative Negative LEUKOCYTES UA (POCT) Negative Moderate (A) COLOR UA (POCT) Yellow CLARITY UA (POCT) Clear ASSESSMENT/PLAN: 1. Frequency of urination - ICD9: 788.41, ICD10: R35.0 (primary diagnosis) acute - UA positive for ilir esterase - having vaginal discharge Will send culture and treat if positive - Send urine for culture - UA DIP, URINE (POC) - URINE CULTURE 2. Vaginal itching - ICD9: 698.1, ICD10: N89.8 Will send cultures and treat as needed - BACTERIAL VAGINOSIS AMPLIFICATION - JOHAN / TRICHOMONAS AMPLIFICATION Diagnosis and treatment plan were discussed and questions were answered to the patient's satisfaction. Pt acknowledged understanding of concepts and follow up plan. Specific signs and symptoms that would indicate the need for higher level of care were discussed in detail warranting prompt ER evaluation. Lou Pascual APRN.CNP [facility] 12-20-2022 Instructions Lou Pascual APRN.CNP - 12/20/2022 11:31 AM EST Will send cultures and treat based on results If worsening symptoms return to clinic, or follow up with PCP -Follow up with PCP or return to clinic if symptoms not improving in 3 days or if you develop any new (or worsening) symptoms such as fever, chills or back pain go to ER. documented in this encounter [facility] 12-20-2022 History of Present illness Narrative Subjective The history is provided by the patient. No division director was used. HPI Michelle Sharpe is a 82 year old female who presents today for CC of vaginal burning & itching and urinary frequency for one day. She has not used any treatment. BP 122/82 Pulse 75 Temp 36.6 C (97.9 F) Resp 20 Wt 64 kg (141 lb) SpO2 93% BMI 27.54 kg/m Social History Tobacco Use Smoking status: Former Packs/day: 1.00 Years: 58.00 Pack years: 58.00 Types: Cigarettes Start date: 1955 Quit date: 07/02/2005 Years since quittin.4 Smokeless tobacco: Never Tobacco comments: No smoking in childhood home. Spouse quit smoking years before patient did. Vaping Use Vaping Use: Never used Substance Use Topics Alcohol use: Yes Comment: occasional Drug use: No PAST MEDICAL HISTORY Diagnosis Date Anticoagulant long-term use At risk for stroke Atypical atrial flutter (HCC) Bone metastases (HCC) 03/27/2017 Bradycardia 01/15/2022 Chronic diastolic heart failure (HCC) Chronic heart failure with preserved ejection fraction (HFpEF) (HCC) Essential hypertension First degree atrioventricular block History of ankle fracture right; no surgery needed as had started to heal by the time had Xray HLD (hyperlipidemia) HOCM (hypertrophic obstructive cardiomyopathy) (HCC) IBS (irritable bowel syndrome) with diarrhea and urgency Impaired fasting glucose 10/06/2008 LBBB (left bundle branch block) ekg 06/27/20 Long Q-T syndrome 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 COUMADIN MR (mitral regurgitation) with assymetric hypertrophic cardiomyopathy 09/2001 Nonrheumatic mitral valve regurgitation Osteoporosis Permanent atrial fibrillation (HCC) 11/21/2022 Permanent atrial fibrillation with rapid ventricular response (HCC) 11/21/2022 Persistent atrial fibrillation (HCC) Presence of permanent cardiac pacemaker 01/15/2022 [employer] single chamber pacemaker; indication: symptomatic tachycardia-bradycardia syndrome Pulmonary emphysema (HCC) 05/26/2017 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 Monson follows for benign tumor removed 2002 I have confirmed and edited as necessary, the [facility] Review of Systems Constitutional: Negative for chills and fever. Gastrointestinal: Negative for abdominal pain, nausea and vomiting. Genitourinary: Positive for dysuria. Negative for flank pain, frequency, hematuria and urgency. Vaginal burning and itching Objective Physical Exam Vitals and nursing note reviewed. Exam conducted with a pensionholder information clerk present. Constitutional: Appearance: Normal appearance. Abdominal: General: Bowel sounds are normal. There is no abdominal bruit. Palpations: Abdomen is not rigid. There is no mass or pulsatile mass. Tenderness: There is no abdominal tenderness. There is no guarding or rebound. Negative signs include Kat's sign and McBurney's sign. Genitourinary: General: Normal vulva. Vagina: No vaginal discharge or erythema. Cervix: No friability. Neurological: Mental Status: She is alert and oriented to person, place, and time. Psychiatric: Mood and Affect: Affect normal. Component Latest Ref Rng & Units 12/20/2022 GLUCOSE UA (POCT) Negative mg/dL Negative BILIRUBIN UA (POCT) Negative Negative KETONE UA (POCT) Negative mg/dL Negative SPECIFIC GRAVITY UA (POCT) 1.005 - 1.030 1.020 HEMOGLOBIN/BLOOD UA (POCT) Negative Trace-intact (A) PH UA (POCT) 4.5 - 8.0 5.0 PROTEIN UA (POCT) Negative mg/dL Negative UROBILINOGEN UA (POCT) Normal E.U./dL 0.2 NITRITE UA (POCT) Negative Negative LEUKOCYTES UA (POCT) Negative Moderate (A) COLOR UA (POCT) Yellow CLARITY UA (POCT) Clear ASSESSMENT/PLAN: 1. Frequency of urination - ICD9: 788.41, ICD10: R35.0 (primary diagnosis) acute - UA positive for ilir esterase - having vaginal discharge Will send culture and treat if positive - Send urine for culture - UA DIP, URINE (POC) - URINE CULTURE 2. Vaginal itching - ICD9: 698.1, ICD10: N89.8 Will send cultures and treat as needed - BACTERIAL VAGINOSIS AMPLIFICATION - JOHAN / TRICHOMONAS AMPLIFICATION Diagnosis and treatment plan were discussed and questions were answered to the patient's satisfaction. Pt acknowledged understanding of concepts and follow up plan. Specific signs and symptoms that would indicate the need for higher level of care were discussed in detail warranting prompt ER evaluation. Lou Pascual APRN.JOSEMANUEL documented in this encounter [facility] 12-15-2022 Miscellaneous Notes Portia called in and confirmed receiving message and will have INR's done weekly. She is aware range should be 2-3. Suze Taylor LPN Left message with PRETTY Pearce ([phone]) at [facility] regarding weekly INR levels for AV Node ablation scheduled with Dr. Chaudhary on 01/02/23. Nan Doyle RN Pt calls back. He gets his inr checks done at [facility]. Summer Yeager LPN Left message on patient's mobile phone number listed in profile indicating a return call regarding where patient gets INR levels checked in preparation of the AVN ablation. Office phone number provided. Nan Doyle RN Pt's name has been added to woods procedure board. Nan Doyle RN Patient is scheduled for an AVN Ablation on 01/[address] Chaudhary. The hospital will call the day before between 2-5pm with your arrival time. Patient should not eat or drink after midnight the day before the procedure. Patient will need a rail car driver when released from the hospital. You will stay overnight for observation. Patient should continue to take medications as prescribed the morning of the procedure with just a sip of water unless otherwise instructed. H&P Update on 12/23 at 8am with Tex Johnson Spoke with patient and she verbalized understanding of all instructions Maria G Lopez documented in this encounter [facility] 12-03-2022 Miscellaneous Notes Patient notified RX sent. Inga Rodriguez LPN I have reviewed your medication list. I sent the generic fluticasone-salmeterol on 12/01/2022. Nazia Patient called. Verified name and date of . States she just talked tot pharmacy and her insurance will not covered what was ordered but will cover generic fluticasone-salmeterol (Same medication). Please review and advise. Damaris Valiente LPN documented in this encounter [facility] 11-28-2022 Miscellaneous Notes Pt called to say that 12/08 will not work for her. Her son is not available to take her. Please reschedule. Alie Dinh RN Pt called in date doesn't work for her pt advised will be called back with new date when avalible Suri Alvarez Summary: sugery date Pt called back this date doesn't work for her she would like a call back thanks Patient is scheduled for an AVN Ablation on 12/[address] Chaudhary. The hospital will call the day before between 2-5pm with your arrival time. Patient should not eat or drink after midnight the day before the procedure. Patient will need a rail car driver when released from the hospital. You will stay overnight for observation. Patient should continue to take medications as prescribed the morning of the procedure with just a sip of water unless otherwise instructed. LM for patient to call back to confirm date/instructions Maria G John documented in this encounter [facility] 11-21-2022 Note HNO ID: [id number] Author: Bebeto Chaudhary MD Service: ? Author Type: Physician Type: Progress Notes Filed: 11/21/2022 6:15 PM Note Text: PRIMARY CARE PHYSICIAN: Alisia Pacheco [address] [place] [address] Patient Care Team: Alisia Pacheco MD as PCP - General (Internal Medicine) Arnold Bland as Consulting (Cardiology) Panda Miller MD as Specialty Real Estate Branch Manager (Pulmonary and Critical Care Medicine) Maria Isabel Tay MD (Hematology/Oncology) CHIEF COMPLAINT: Follow up for arrhythmia HISTORY OF PRESENT ILLNESS: Ms. Sharpe is a 82 year old female who presents today for a cardiovascular medicine follow-up visit. History copied from previous notes, edited as needed: Dr. Chaudhary's previous notes 08/03/2020: Ms. Sharpe is a 80 year old female who presents today for evaluation of arrhythmia. She has history of hypertrophic cardiomyopathy and mitral regurgitation. She underwent septal myectomy and mitral valve repair at [facility] in July 2018. At that time she underwent AtriCure pulmonary veins isolation and also left atrial appendage ligation (AtriCure clip). She has a long history of atrial fibrillation, and it had been recurrent despite multiple electrical cardioversion procedures. She states that she was on amiodarone for a period of time, possibly a couple years, but it was discontinued recently due to potential side effects particularly abnormal thyroid function. It seems from available medical records she was on amiodarone from sometime in late 2017 or early 2018, until just recently discontinued. Medical records indicate that she has had issues with prolongation of the QT interval by EKG, and in the past and this has substantially limited the antiarrhythmic treatment options for the atrial fibrillation. She states she often cannot tell when or if she is in atrial fibrillation. Presently, she feels reasonably well. She has some limitation to her activities, mostly with more than moderate degrees of physical activity, with some exertional shortness of breath. She states that she is uncertain whether this has to do with her heart or perhaps due to the COPD. Otherwise, she overall does most activities that she wants to do and does not feel that she is overly limited. She denies chest pain, orthopnea, cough, palpitations, PND, lightheadedness or syncope. IMPRESSION (08/03/2020): Ms. Sharpe has recurrent persistent atrial arrhythmia, predominantly coarse atrial fibrillation and less likely true atrial flutter on close examination of the available EKGs. Even if she has atrial flutter, the appearance is atypical so catheter ablation for this and/or atrial fibrillation would involve a complex left atrial procedure and I believe it might be too risky at her advanced age with multiple comorbid conditions. Antiarrhythmic drug options are very limited, particularly with the medical record indicating a history of excessive prolongation of QT interval, so I am not inclined to recommend class III antiarrhythmic drugs (sotalol, dofetilide). She has severe conduction system disease with the left bundle branch block and in sinus rhythm the very severe first-degree AV block. For this reason she would not be a good candidate for a class Ic antiarrhythmic drug (flecainide, propafenone). Furthermore, she does not seem to have excessively bothersome symptoms, not really very aware of the atrial arrhythmia today in the office. Overall, I think most likely she would be best served with a ventricular rate control approach. If this cannot be achieved with medication (AV miguel blocking medications) then AV node ablation with pacemaker implant might be the best option. But again, as mentioned, I am not in favor of complex left atrial catheter ablation for this patient at this time. I had a detailed discussion with Ms. Sharpe regarding my evaluation and recommendations. After our discussion, Ms. Sharpe expressed her understanding and I answered all her questions to her apparent satisfaction. I told her I would review her case in more detail (which I have completed) and that most likely I would recommend avoiding complex catheter ablation (and I do) --- she was not very inclined to want a potentially risky procedure as well so we were in agreement on this matter. Interim History Dr. Chaudhary 11/21/2022: Ms. Sharpe presents for evaluation of arrhythmia, accompanied by her son. I had evaluated her in August 2020 for atrial fibrillation. The atrial fibrillation has been refractory to medical therapy, including antiarrhythmic drug therapy, and multiple electrical cardioversions. At that time I had recommended that she be treated with a rate controlling strategy, I did not recommend complex left atrial catheter ablation, and I considered AV node catheter ablation with pacema (more content not included)... [facility] 11-21-2022 Nurse Note No cardiac concerns documented in this encounter [facility] 11-21-2022 History of Present illness Narrative PRIMARY CARE PHYSICIAN: Alisia Pahceco [address] [place] [address] Patient Care Team: Alisia Pacheco MD as PCP - General (Internal Medicine) Arnold Bland as Consulting (Cardiology) Panda Miller MD as Specialty Real Estate Branch Manager (Pulmonary and Critical Care Medicine) Maria Isabel Tay MD (Hematology/Oncology) CHIEF COMPLAINT: Follow up for arrhythmia HISTORY OF PRESENT ILLNESS: Ms. Sharpe is a 82 year old female who presents today for a cardiovascular medicine follow-up visit. History copied from previous notes, edited as needed: Dr. Chaudhary's previous notes 08/03/2020: Ms. Sharpe is a 80 year old female who presents today for evaluation of arrhythmia. She has history of hypertrophic cardiomyopathy and mitral regurgitation. She underwent septal myectomy and mitral valve repair at [facility] in July 2018. At that time she underwent AtriCure pulmonary veins isolation and also left atrial appendage ligation (AtriCure clip). She has a long history of atrial fibrillation, and it had been recurrent despite multiple electrical cardioversion procedures. She states that she was on amiodarone for a period of time, possibly a couple years, but it was discontinued recently due to potential side effects particularly abnormal thyroid function. It seems from available medical records she was on amiodarone from sometime in late 2017 or early 2018, until just recently discontinued. Medical records indicate that she has had issues with prolongation of the QT interval by EKG, and in the past and this has substantially limited the antiarrhythmic treatment options for the atrial fibrillation. She states she often cannot tell when or if she is in atrial fibrillation. Presently, she feels reasonably well. She has some limitation to her activities, mostly with more than moderate degrees of physical activity, with some exertional shortness of breath. She states that she is uncertain whether this has to do with her heart or perhaps due to the COPD. Otherwise, she overall does most activities that she wants to do and does not feel that she is overly limited. She denies chest pain, orthopnea, cough, palpitations, PND, lightheadedness or syncope. IMPRESSION (08/03/2020): Ms. Sharpe has recurrent persistent atrial arrhythmia, predominantly coarse atrial fibrillation and less likely true atrial flutter on close examination of the available EKGs. Even if she has atrial flutter, the appearance is atypical so catheter ablation for this and/or atrial fibrillation would involve a complex left atrial procedure and I believe it might be too risky at her advanced age with multiple comorbid conditions. Antiarrhythmic drug options are very limited, particularly with the medical record indicating a history of excessive prolongation of QT interval, so I am not inclined to recommend class III antiarrhythmic drugs (sotalol, dofetilide). She has severe conduction system disease with the left bundle branch block and in sinus rhythm the very severe first-degree AV block. For this reason she would not be a good candidate for a class Ic antiarrhythmic drug (flecainide, propafenone). Furthermore, she does not seem to have excessively bothersome symptoms, not really very aware of the atrial arrhythmia today in the office. Overall, I think most likely she would be best served with a ventricular rate control approach. If this cannot be achieved with medication (AV miguel blocking medications) then AV node ablation with pacemaker implant might be the best option. But again, as mentioned, I am not in favor of complex left atrial catheter ablation for this patient at this time. I had a detailed discussion with Ms. Sharpe regarding my evaluation and recommendations. After our discussion, Ms. Sharpe expressed her understanding and I answered all her questions to her apparent satisfaction. I told her I would review her case in more detail (which I have completed) and that most likely I would recommend avoiding complex catheter ablation (and I do) --- she was not very inclined to want a potentially risky procedure as well so we were in agreement on this matter. Interim History Dr. Chaudhary 11/21/2022: Ms. Sharpe presents for evaluation of arrhythmia, accompanied by her son. I had evaluated her in August 2020 for atrial fibrillation. The atrial fibrillation has been refractory to medical therapy, including antiarrhythmic drug therapy, and multiple electrical cardioversions. At that time I had recommended that she be treated with a rate controlling strategy, I did not recommend complex left atrial catheter ablation, and I considered AV node catheter ablation with pacemaker implant to be a good option if rate control strategy with medication(s) failed. 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 This is a [employer] single-chamber ventricular pacemaker system. Unfortunately, she has continued to experience symptomatic tachycardia from poorly controlled ventricular response rates from the now permanent atrial fibrillation. She feels poorly, effort intolerance and exertional shortness of breath even with usual activities. She has not had any problems with the pacemaker site left upper chest, such as pain, tenderness, swelling or drainage. She is referred back to me to be considered for the treatment options at this point. I have confirmed and edited as necessary, the PFSH and ROS obtained by others. PAST MEDICAL HISTORY Diagnosis Date Anticoagulant long-term use At risk for stroke Atypical atrial flutter (HCC) Bone metastases (HCC) 03/27/2017 Bradycardia 01/15/2022 Chronic diastolic heart failure (HCC) Chronic heart failure with preserved ejection fraction (HFpEF) (HCC) Essential hypertension First degree atrioventricular block History of ankle fracture right; no surgery needed as had started to heal by the time had Xray HLD (hyperlipidemia) HOCM (hypertrophic obstructive cardiomyopathy) ([facility]) IBS (irritable bowel syndrome) with diarrhea and urgency Impaired fasting glucose 10/06/2008 LBBB (left bundle branch block) ekg 06/27/20 Long Q-T syndrome 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 COUMADIN MR (mitral regurgitation) with assymetric hypertrophic cardiomyopathy 09/2001 Nonrheumatic mitral valve regurgitation Osteoporosis Permanent atrial fibrillation (HCC) 11/21/2022 Permanent atrial fibrillation with rapid ventricular response (HCC) 11/21/2022 Persistent atrial fibrillation (HCC) Presence of permanent cardiac pacemaker 01/15/2022 [employer] single chamber pacemaker; indication: symptomatic tachycardia-bradycardia syndrome Pulmonary emphysema (HCC) 05/26/2017 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 Monson follows for benign tumor removed 2002 PAST SURGICAL HISTORY Procedure Laterality Date BLADDER SURGERY HX 2004 tumor removed from bladder CARDIOVERSION ELECTIVE ARRHYTHMIA INTERNAL SPX 04/2019 CARDIOVERSION ELECTIVE ARRHYTHMIA INTERNAL SPX 04/24/2020 [facility] CARDIOVERSION ELECTIVE ARRHYTHMIA INTERNAL SPX 05/2017 CARDIOVERSION ELECTIVE ARRHYTHMIA INTERNAL SPX 10/2017 CARDIOVERSION ELECTIVE ARRHYTHMIA INTERNAL SPX 10/2018 HEART VALVE REPAIR 07/2018 SEPTAL MYECTOMY AND MVP WITH ANNULOPLASTY WITH A #33 RM BAND, B/L PULMONARY VEIN ISOLATION WITH MULTIPLE OCCASIONA SOF THE ARTICURE RADIOFREQUENCY CLAMP AND CLIPPING OF THE LEFT ATRIAL APPENDAGE WITH A 50MM ARTICURE CLIP PACEMAKER,SINGLE,RATE RESPON Left 12/10/[address]21 [facility] Dr. Souza; [employer] single-chamber pacemaker; indication: symptomatic tachycardia-bradycardia syndrome VENTRICULOMYOTOMY-MYECTOMY 07/2018 septal myectomy for HCM; [facility], Dr. Jo SOCIAL HISTORY Social History Tobacco Use Smoking status: Former Packs/day: 1.00 Years: 58.00 Pack years: 58.00 Types: Cigarettes Start date: 1955 Quit date: 07/02/2005 Years since quittin.4 Smokeless tobacco: Never Tobacco comments: No smoking in childhood home. Spouse quit smoking years before patient did. Vaping Use Vaping Use: Never used Substance Use Topics Alcohol use: Yes Comment: occasional Drug use: No FAMILY HISTORY Problem Relation Age of Onset Hypertension Father other (allergic reaction) Father from allergic reaction Stroke Mother other (Myocardial infarction) Paternal Grandmother 80 ALLERGIES: ALLERGIES Allergen Reactions Zyloprim [Allopurin* Rash Environmental [Othe* Intolerance rhinitis Tramadol Other: See Comments made patient woozy/dizzy MEDICATIONS: HYDROcodone-acetaminophen (NORCO) 5-325 mg per tablet losartan (COZAAR) 25 mg tablet Take 25 mg by mouth once daily. methocarbamol (ROBAXIN) 500 mg tablet TAKE 1 TABLET BY MOUTH THREE TIMES DAILY NEEDED FOR PAIN OR FOR MUSCLE SPASMS nitrofurantoin monohydrate and macrocrystal (MACROBID) 100 mg capsule Take by mouth. oxyCODONE IR (ROXICODONE) 5 mg immediate release tablet TAKE 1 TABLET BY MOUTH EVERY 6 HOURS NEEDED FOR PAIN FOR 5 DAYS furosemide (LASIX) 40 mg tablet Take 40 mg by mouth once daily. gabapentin (NEURONTIN) 300 mg capsule lisinopril (ZESTRIL, PRINIVIL) 20 mg tablet TAKE 1 TABLET BY MOUTH FOR BLOOD PRESSURE metoprolol succinate ER (TOPROL XL) 100 mg Take 100 mg by mouth once daily. warfarin (COUMADIN) 3 mg tablet for blood thinner; 1 mg orally Thursday, Thursday, Thursday, and take one half of the 3mg tabs (1.5mg) Thursday, Thursday, Thursday, albuterol HFA (VENTOLIN HFA) 90 mcg/actuation inhaler Inhale 2 Puffs as instructed every 4 hours as needed for wheezing/shortness of breath. fluticasone-salmeterol (ADVAIR, WIXELA) 250-50 mcg/dose inhaler Inhale 1 Puff as instructed twice daily. alendronate (FOSAMAX) 70 mg tablet Take 1 tablet by mouth one time a week. Take with a full glass of water, on an empty stomach; do NOT lie down for 30minutes. omeprazole (PRILOSEC) 20 mg capsule Take 1 capsule by mouth daily before breakfast. 1/2 hr before meal. potassium chloride (K-TAB) 10 mEq tablet Take 1 tablet by mouth once daily. warfarin (COUMADIN) 2 mg tablet Taking 2mg on Thu & Thu and 1.5mg the other days. warfarin (COUMADIN) 1 mg tablet TAKE 1 TABLET BY MOUTH ON , , . TAKE 1 & 1/2 TABLETS ON THU, THU, THU, MON fluticasone (FLONASE) 50 mcg/actuation nasal spray USE 2 SPRAYS IN EACH NOSTRIL ONCE DAILY. RINSE MOUTH AFTER USE. azelastine (ASTELIN,ASTEPRO) 0.1% nasal spray Use 1-2 Sprays in each nostril twice daily as needed. magnesium oxide (MAGOX) 400 mg (241.3 mg magnesium) tablet Take 1 tablet by mouth once daily. OTC ipratropium (ATROVENT) 0.02 % nebulizer solution Use 2.5 mL via nebulizer four times daily as needed for Wheezing/Shortness of Breath. Use over 5-15minutes. therapeutic multivitamin (THERA VITAMIN) tablet Take 1 tablet by mouth daily with breakfast. Cholecalciferol, Vitamin D3, 1,000 unit cap Take 1 capsule by mouth once daily. Review of Systems Constitutional: Positive for malaise/fatigue. Negative for chills and fever. Respiratory: Positive for shortness of breath. Negative for cough, hemoptysis and sputum production. Cardiovascular: Negative for chest pain, palpitations, orthopnea and PND. Gastrointestinal: Negative for abdominal pain, blood in stool, melena, nausea and vomiting. Genitourinary: Negative for hematuria. Skin: Negative for rash. Neurological: Positive for dizziness. Negative for loss of consciousness. PHYSICAL EXAMINATION: BP 121/74 Pulse 76 Ht 5' 0 (1.52m) Wt 140 lb (63.5kg) SpO2 91% BMI 27.34 kg/(m^2). Physical Exam Vitals reviewed. Constitutional: General: She is not in acute distress. Appearance: Normal appearance. HENT: Head: Normocephalic and atraumatic. Cardiovascular: Rate and Rhythm: Tachycardia present. Rhythm irregularly irregular. Heart sounds: S1 normal and S2 normal. Murmur heard. Systolic murmur is present with a grade of 1/6. No friction rub. Comments: pacemaker site left upper chest without erythema, warmth, tenderness, swelling, drainage or skin erosion Pulmonary: Effort: Pulmonary effort is normal. No respiratory distress. Breath sounds: Normal breath sounds. No wheezing, rhonchi or rales. Musculoskeletal: Cervical back: Neck supple. Right lower leg: No edema. Left lower leg: No edema. Skin: General: Skin is warm and dry. Neurological: General: No focal deficit present. Mental Status: She is alert and oriented to person, place, and time. Psychiatric: Mood and Affect: Mood normal. Behavior: Behavior normal. Thought Content: Thought content normal. CARDIOVASCULAR MEDICINE TESTING: Electrocardiogram: atrial fibrillation with rapid ventricular response, average 110 bpm; LBBB (QRS 140 ms); QTc 495 ms I have personally reviewed the Electrocardiogram and Device Check. I spent a total of 30 minutes on the date of the service which included preparing to see the patient, [id number] patient care, completing clinical documentation, obtaining and/or reviewing separately obtained history, performing a medically appropriate examination, counseling and educating the patient/family/caregiver, ordering medications, tests, or procedures, communicating with other HCPs (not separately reported), independently interpreting results (not separately reported), communicating results to the patient/family/caregiver, and care coordination (not separately reported). ASSESSMENT/PLAN: 1. Permanent atrial fibrillation with rapid ventricular response (HCC) - ICD9: 427.31, ICD10: I48.21 (primary diagnosis) 2. Permanent atrial fibrillation (HCC) - ICD9: 427.31, ICD10: I48.21 Poorly controlled ventricular response rates, highly symptomatic, medical therapy failing to adequately control 3. Atypical atrial flutter (HCC) - ICD9: 427.32, ICD10: I48.4 4. Palpitation - ICD9: 785.1, ICD10: R00.2 5. At risk for stroke - ICD9: V15.89, ICD10: Z91.89 CHADS2-Vasc Score Breakdown 6 Total Score 1 Female 2 Age >= 75 years old 1 History of CHF 1 History of hypertension 1 History of vascular disease 6. Anticoagulant long-term use - ICD9: V58.61, ICD10: Z79.01 Warfarin for stroke prevention from atrial fibrillation 7. Left bundle branch block - ICD9: 426.3, ICD10: I44.7 8. Bradycardia - ICD9: 427.89, ICD10: R00.1 9. Sick sinus syndrome (HCC) - ICD9: 427.81, ICD10: I49.5 10. Tachycardia-bradycardia syndrome (HCC) - ICD9: 427.81, ICD10: I49.5 S/p pacemaker implant 12/2021 11. Presence of permanent cardiac pacemaker - ICD9: V45.01, ICD10: Z95.0 [employer] single-chamber ventricular pacemaker system implanted 12/10/2021 12. HOCM (hypertrophic obstructive cardiomyopathy) (HCC) - ICD9: 425.11, ICD10: I42.1 13. S/P ventricular septal myectomy - ICD9: V45.89, ICD10: Z98.890 14. Status post mitral valve repair - ICD9: V45.89, ICD10: Z98.890 IMPRESSION: Ms. Sharpe has highly symptomatic arrhythmia in the form of rapid ventricular response rates to permanent atrial fibrillation. The ventricular rates have not been controlled despite medical therapy with a beta-jhon, and she has trouble tolerating even this dose and likely will not tolerate higher dosages. I had a detailed discussion with Ms. Sharpe and her son regarding the treatment options. As I had recommended previously, I do not feel that she is an appropriate candidate for a complex left atrial catheter ablation procedure, as the risk to benefit is not sufficiently favorable. I do not think there is high benefit, that is I do not believe that there is a very good chance of the procedure maintaining sinus rhythm, and at her advanced age and with multiple comorbid conditions I feel there are increased risks for such a procedure. She already has a pacemaker in place, I recommend at this point AV node catheter ablation. This is a very straightforward and safe procedure, even with her circumstances. I feel confident that she will have substantial improvement in her symptoms with this treatment approach. I discussed this procedure with Ms. Sharpe and her son, reviewed the rationale for this treatment option, and also reviewed the risks benefits alternatives. After our discussion, I answered all of their questions to their apparent satisfaction. She would like to proceed as outlined. 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 Bland, to review my recommendations and get his feedback. I did contact Dr. Bland and he was in agreement with this plan, this is what he intended for me to consider when he referred her back to me. INFORMED CONSENT The risks, benefits and anticipated outcomes of the procedure, the risks and benefits of the alternatives to the procedure and the roles and tasks of the personnel to be involved were discussed with the patient. Consent for the procedure and agreement to proceed has been obtained. I verify that I personally obtained the consent. PLAN AND RECOMMENDATIONS: Proceed with scheduling of AV node catheter ablation. I think we can safely perform this procedure without interruption of the warfarin oral anticoagulation provided the INR is not excessively supratherapeutic on the day of the procedure. My office will be contacting Ms. Sharpe to schedule the procedure. Bebeto Chaudhary MD 11/21/2022 Medical Decision Making: Problems: Moderate: 1+ chronic illnesses with change and New problem with uncertain prognosis Data: Unique source(s) for external note(s) reviewed: 3+ Unique test result(s) reviewed: 3+ Unique test(s) ordered: 1 Risk: Moderate: Moderate risk from testing/treatment, Drug management and Decision on minor surgery w/ risk factors Medical Decision Making Level: 4 - Moderate documented in this encounter [facility] 10-20-2022 Miscellaneous Notes Patient phones requesting refills as follows: Requested Prescriptions Pending Prescriptions Disp Refills albuterol HFA (VENTOLIN HFA) 90 mcg/actuation inhaler 1 Each 5 Sig: Inhale 2 Puffs as instructed every 4 hours as needed for wheezing/shortness of breath. Please review and advise. Inga Rodriguez LPN documented in this encounter [facility] 10-03-2022 Miscellaneous Notes Patient has been identified by name and date of : Yes Requested Prescriptions Pending Prescriptions Disp Refills fluticasone-salmeterol (ADVAIR, WIXELA) 250-50 mcg/dose inhaler 1 Each 5 Sig: Inhale 1 Puff as instructed twice daily. RX INSTRUCTIONS: Patient aware RX will be sent to pharmacy. No need to notify patient. Sari Quiles Ma documented in this encounter [facility] 09-22-2022 Procedure note Associated Ord er(s): OXIMETRY WITH AMBULATION RESPIRATORY THERAPY OXIMETRY WITH AMBULATION Oximetry with Ambulation Test for This Encounter O2 Device O2 Adapter NC O2 Flow SpO2% HR Activity Ft Walked (ft) Time (min) Avg Speed (MPH) R/A 96 106 Resting R/A 91 120 Walking, usual pace 200 3 0.76 General Information Pulse Oximetry Site Total Time Spent O2 Supply Carrier Walking Assistance/Device R Index Finger 15 -- 3 Wheel Walker NAME: GREG Wallace PATIENT NAME: Michelle Sharpe DATE: September 22, 2022 TIME: 2:42 PM Comment: (patient was unsteady while walking.) documented in this encounter [facility] 09-22-2022 History of Present illness Narrative Patient: Michelle Sharpe PCP: Alisia Pacheco MD CC: COPD HPI: Michelle Sharpe 82 year old female former smoker, 58 pack years (quitting 2004) with PMH significant for mitral regurgitation, HOCM, HTN, hyperlipidemia, AFib, chronic diastolic heart failure, small B-cell lymphoma with bone metastasis, and COPD. Recently had pacemaker placed at [facility] in January 2022. Since the last Pulmonary Clinic visit 05/01/2022, the patient has not required ED care for exacerbation. However, she was seen in the [place] ED following a fall. There has been no hospital admission for exacerbation. Using Advair once daily rather than twice daily. Reports she only uses Advair in the morning. Once in awhile rescue bronchodilator use. No cough or sputum. No hemoptysis. No wheezing. No dyspnea at rest. Exertional dyspnea is unchanged. Currently on Prednisone taper per PCP for rib pain and muscle strain following fall. Currently wearing 2L supplemental oxygen at night. DME: [employer] PAST MEDICAL HISTORY Diagnosis Date Anticoagulant long-term use At risk for stroke Atypical atrial flutter (HCC) Bone metastases (HCC) 03/27/2017 Chronic diastolic heart failure (HCC) Chronic heart failure with preserved ejection fraction (HFpEF) (HCC) Essential hypertension First degree atrioventricular block History of ankle fracture right; no surgery needed as had started to heal by the time had Xray HLD (hyperlipidemia) HOCM (hypertrophic obstructive cardiomyopathy) (HCC) IBS (irritable bowel syndrome) with diarrhea and urgency Impaired fasting glucose 10/06/2008 LBBB (left bundle branch block) ekg 06/27/20 Long Q-T syndrome 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 Monson follows for benign tumor removed 2002 Allergies: Zyloprim [Allopurin* Rash Environmental [Othe* Intolerance Comment:rhinitis Tramadol Other: See Comments Comment:made patient woozy/dizzy ciprofloxacin HCl (CIPRO) 500 mg tablet Take 1 tablet by mouth once daily for 5 days. metroNIDAZOLE (FLAGYL) 500 mg tablet Take 1 tablet by mouth three times daily for 5 days. HYDROcodone-acetaminophen (NORCO) 5-325 mg per tablet Take 1 tablet by mouth every 6 hours as needed for pain for up to 7 days. predniSONE (DELTASONE) 10 mg tablet Take 4 tabs daily x5 days, then 2 tabs daily for 5 days, then 1 tab daily for 5 days. Take in morning with food. alendronate (FOSAMAX) 70 mg tablet Take 1 tablet by mouth one time a week. Take with a full glass of water, on an empty stomach; do NOT lie down for 30minutes. gabapentin (NEURONTIN) 100 mg capsule Take 2 capsules by mouth once daily for 30 days. fluticasone-salmeterol (ADVAIR, WIXELA) 250-50 mcg/dose inhaler Inhale 1 Puff as instructed twice daily. furosemide (LASIX) 20 mg tablet Take 1 tablet by mouth once daily. omeprazole (PRILOSEC) 20 mg capsule Take 1 capsule by mouth daily before breakfast. 1/2 hr before meal. potassium chloride (K-TAB) 10 mEq tablet Take 1 tablet by mouth once daily. albuterol HFA (VENTOLIN HFA) 90 mcg/actuation inhaler Inhale 2 Puffs as instructed every 4 hours as needed for wheezing/shortness of breath. warfarin (COUMADIN) 2 mg tablet Taking 2mg on Thu & Thu and 1.5mg the other days. warfarin (COUMADIN) 1 mg tablet TAKE 1 TABLET BY MOUTH ON , THUS, . TAKE 1 & 1/2 TABLETS ON THU, THU, THU, MON lisinopril (ZESTRIL, PRINIVIL) 10 mg tablet Take 1 tablet by mouth once daily. metoprolol succinate ER (TOPROL XL) 50 mg 24 hr tablet Take 1 tablet by mouth once daily. fluticasone (FLONASE) 50 mcg/actuation nasal spray USE 2 SPRAYS IN EACH NOSTRIL ONCE DAILY. RINSE MOUTH AFTER USE. azelastine (ASTELIN,ASTEPRO) 0.1% nasal spray Use 1-2 Sprays in each nostril twice daily as needed. magnesium oxide (MAGOX) 400 mg (241.3 mg magnesium) tablet Take 1 tablet by mouth once daily. OTC ipratropium (ATROVENT) 0.02 % nebulizer solution Use 2.5 mL via nebulizer four times daily as needed for Wheezing/Shortness of Breath. Use over 5-15minutes. therapeutic multivitamin (THERA VITAMIN) tablet Take 1 tablet by mouth daily with breakfast. Cholecalciferol, Vitamin D3, 1,000 unit cap Take 1 capsule by mouth once daily. Social History Tobacco Use Smoking status: Former Packs/day: 1.00 Years: 58.00 Pack years: 58.00 Types: Cigarettes Start date: 1956 Quit date: 07/02/2005 Years since quittin.2 Smokeless tobacco: Never Tobacco comments: No smoking in childhood home. Spouse quit smoking years before patient did. Vaping Use Vaping Use: Never used Substance Use Topics Alcohol use: Yes Comment: occasional Drug use: No Family History Problem Relation Age of Onset Hypertension Father other (allergic reaction) Father from allergic reaction Stroke Mother other (Myocardial infarction) Paternal Grandmother 80 PAST SURGICAL HISTORY Procedure Laterality Date ANESTH,PACEMAKER INSERTION 01/[address]22 [facility] [address]. Souza BLADDER SURGERY HX 2004 tumor removed from bladder CARDIOVERSION ELECTIVE ARRHYTHMIA INTERNAL SPX 04/2019 CARDIOVERSION ELECTIVE ARRHYTHMIA INTERNAL SPX 04/24/2020 [facility] CARDIOVERSION ELECTIVE ARRHYTHMIA INTERNAL SPX 05/2017 CARDIOVERSION ELECTIVE ARRHYTHMIA INTERNAL SPX 10/2017 CARDIOVERSION ELECTIVE ARRHYTHMIA INTERNAL SPX 10/2018 HEART VALVE REPAIR 07/2018 SEPTAL MYECTOMY AND MVP WITH ANNULOPLASTY WITH A #33 RM BAND, B/L PULMONARY VEIN ISOLATION WITH MULTIPLE OCCASIONA SOF THE ARTICURE RADIOFREQUENCY CLAMP AND CLIPPING OF THE LEFT ATRIAL APPENDAGE WITH A 50MM ARTICURE CLIP VENTRICULOMYOTOMY-MYECTOMY 07/2018 septal myectomy for HCM; [facility], Dr. Jo I reviewed the past medical history, family history, social history and surgical history with changes noted above and updated in EMR. IMMUNIZATIONS Prevnar - 09/01/2015 Pneumovax - 06/13/2010 Influenza - xx COVID-19 - 09/12/2021, 12/21/2020, 11/23/2020 ROS: General: Generally feels well. Appetite good. Eyes, Ears, nose, throat: No post nasal drip, rhinorrhea, purulent nasal discharge, epistaxis. No hoarseness. Vision stable. Cardiac: No angina, edema, orthopnea. Resp: See HPI. GI: No heartburn, dysphagia. No diarrhea. Musculoskeletal: Back pain following fall. Neuro: No headache, focal weakness, tremor. Skin: No rash. Otherwise negative. PHYSICAL EXAMINATION: BP 132/75 (BP Site: Right Arm, BP Position: Sitting) Pulse (!) 53 Resp 14 Ht 165.1 cm (5' 5 ) Wt 62.6 kg (138 lb 0.1 oz) SpO2 96% BMI 22.97 kg/m Gen: No acute distress. Cooperative with examination. ENT: Oral hygeine and dentition good. Pharynx clear. No thrush. Resp: No stridor, accessory respiratory muscle use, supra-sternal or intercostal retractions. No wheezes, crackles. CV: Regular rythm. Heart tones normal. Radial pulses normal. Abd: Non distended. Ext: Warm and well perfused. No clubbing, cyanosis, edema. Skin: No rash, ecchymoses. Neuro: Mental status normal. Affect normal. No tremor. DATA: PFT, 05/01/2022 IMPRESSION: Spirometry indicates moderate obstruction. Electronically Signed On 05-01-2022 17:07:11 EDT by Rafael Aviles Oximetry, 09/22/2022 Oximetry with Ambulation Test for This Encounter O2 Device O2 Adapter NC O2 Flow SpO2% HR Activity Ft Walked (ft) Time (min) Avg Speed (MPH) R/A 96 106 Resting R/A 91 120 Walking, usual pace 200 3 0.76 CXR, 09/01/2022 IMPRESSION: No significant acute radiographic abnormality. ASSESSMENT/PLAN: 1. Moderate COPD (chronic obstructive pulmonary disease) (HCC) - ICD9: 496, ICD10: J44.9 (primary diagnosis) Advised patient to use her maintenance inhaler twice daily. Rinse mouth after each use to help prevent oral thrush. Albuterol HFA inhaler, 2 inhalations 10-15 minutes prior to activities associated with shortness of breath, and as needed for rescue relief of shortness of breath or wheezing, up to 4 times daily. Based on oximetry today, patient does not require supplemental oxygen during the day. Continue 2L at night. - SPIROMETRY BASELINE ONLY 2. Former smoker - ICD9: V15.82, ICD10: Z87.891 Does not qualify for lung cancer screening based on age. Aaliyah Stone PA-C documented in this encounter [facility] 09-22-2022 History of Present illness Narrative PULM FUNCTION SMARTBLOCK: Provider: Aaliyah Stone PA-C Assisting Tech: GREG Wallace Oximetry - Ambulation: 1 documented in this encounter [facility] 09-19-2022 Miscellaneous Notes Patient was in express care today - PCP was down to speak with her. Closing encounter. Berry Piper Ma Patient calling to speak to clinical about a medication for diverticulitis. She cannot remember the name of the medication that may have been prescribed in the past. documented in this encounter [facility] 09-19-2022 Instructions Alisia Pacheco MD - 09/19/2022 1:09 PM EST Take Gas X to see if this relieves the pain. [place] diet, low residual and soft foods for now and advance a tolerated. Take antibiotic if acting more like overt diverticulitis. If need to take the antibiotic, then would recommend evaluation with Dr. Valdivia (surgeon at [facility]). Go to hospital if develop red flag symptoms--including severe pain, nausea and vomiting, bleeding, intractable diarrhea, signs of dehydration, etc. Can use hydrocodone for the pain but still need to go to ER if severe. documented in this encounter [facility] 09-19-2022 History of Present illness Narrative This note was created using ServiceNow[employer]. Subjective Michelle Sharpe is a 82 year old female. No chief complaint on file. SUBJECTIVE: Michelle Sharpe is a 82 year old year old lady here today for acute appointment for review of medical conditions. Started last night with LLQ pain like before. Gets a lot of gas. Always same pain. Prior 2 episodes were treated as outpatient empirically. No fevers or chills. Comes and goes. When relieves self of gas, feels better. Starts getting painful in 10 minutes. No diarrhea. In prior episodes developed diarrheal. No BRBPR, melena or currant jelly bleeding. Noted has been in and out of hospital with CHF issue. Doing okay from cardiac standpoint. Had outpatient cardiac appointment yesterday. Had colonoscopy last year--Dr. Valdivia. Sigmoid polyp removed; has diverticulosis. PAST MEDICAL HISTORY Diagnosis Date Anticoagulant long-term use At risk for stroke Atypical atrial flutter (HCC) Bone metastases (HCC) 03/27/2017 Chronic diastolic heart failure (HCC) Chronic heart failure with preserved ejection fraction (HFpEF) (HCC) Essential hypertension First degree atrioventricular block History of ankle fracture right; no surgery needed as had started to heal by the time had Xray HLD (hyperlipidemia) HOCM (hypertrophic obstructive cardiomyopathy) (HCC) IBS (irritable bowel syndrome) with diarrhea and urgency Impaired fasting glucose 10/06/2008 LBBB (left bundle branch block) ekg 06/27/20 Long Q-T syndrome 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 Monson follows for benign tumor removed 2002 Current Outpatient Medications Medication Sig predniSONE (DELTASONE) 10 mg tablet Take 4 tabs daily x5 days, then 2 tabs daily for 5 days, then 1 tab daily for 5 days. Take in morning with food. alendronate (FOSAMAX) 70 mg tablet Take 1 tablet by mouth one time a week. Take with a full glass of water, on an empty stomach; do NOT lie down for 30minutes. gabapentin (NEURONTIN) 100 mg capsule Take 2 capsules by mouth once daily for 30 days. fluticasone-salmeterol (ADVAIR, WIXELA) 250-50 mcg/dose inhaler Inhale 1 Puff as instructed twice daily. furosemide (LASIX) 20 mg tablet Take 1 tablet by mouth once daily. omeprazole (PRILOSEC) 20 mg capsule Take 1 capsule by mouth daily before breakfast. 1/2 hr before meal. potassium chloride (K-TAB) 10 mEq tablet Take 1 tablet by mouth once daily. albuterol HFA (VENTOLIN HFA) 90 mcg/actuation inhaler Inhale 2 Puffs as instructed every 4 hours as needed for wheezing/shortness of breath. warfarin (COUMADIN) 2 mg tablet Taking 2mg on Thu & Thu and 1.5mg the other days. warfarin (COUMADIN) 1 mg tablet TAKE 1 TABLET BY MOUTH ON , THUS, . TAKE 1 & 1/2 TABLETS ON THU, THU, THU, MON lisinopril (ZESTRIL, PRINIVIL) 10 mg tablet Take 1 tablet by mouth once daily. metoprolol succinate ER (TOPROL XL) 50 mg 24 hr tablet Take 1 tablet by mouth once daily. fluticasone (FLONASE) 50 mcg/actuation nasal spray USE 2 SPRAYS IN EACH NOSTRIL ONCE DAILY. RINSE MOUTH AFTER USE. azelastine (ASTELIN,ASTEPRO) 0.1% nasal spray Use 1-2 Sprays in each nostril twice daily as needed. magnesium oxide (MAGOX) 400 mg (241.3 mg magnesium) tablet Take 1 tablet by mouth once daily. OTC ipratropium (ATROVENT) 0.02 % nebulizer solution Use 2.5 mL via nebulizer four times daily as needed for Wheezing/Shortness of Breath. Use over 5-15minutes. therapeutic multivitamin (THERA VITAMIN) tablet Take 1 tablet by mouth daily with breakfast. Cholecalciferol, Vitamin D3, 1,000 unit cap Take 1 capsule by mouth once daily. No current facility-administered medications for this visit. Review of Systems Objective There were no vitals taken for this visit. Physical Exam Constitutional: Appearance: Normal appearance. HENT: Head: Normocephalic. Eyes: Conjunctiva/sclera: Conjunctivae normal. Cardiovascular: Rate and Rhythm: Normal rate and regular rhythm. Heart sounds: Normal heart sounds. Pulmonary: Effort: Pulmonary effort is normal. Breath sounds: Normal breath sounds. Abdominal: General: There is no distension. Palpations: There is no mass. Tenderness: There is abdominal tenderness (LLQ). There is no guarding or rebound. Hernia: No hernia is present. Skin: General: Skin is warm and dry. Neurological: General: No focal deficit present. Mental Status: She is alert and oriented to person, place, and time. Psychiatric: Mood and Affect: Mood normal. Behavior: Behavior normal. Thought Content: Thought content normal. Judgment: Judgment normal. Assessment and Plan ASSESSMENT/PLAN: 1. LLQ pain - ICD9: 789.04, ICD10: R10.32 (primary diagnosis) - Rule out diverticulitis. - HYDROCODONE 5 MG-ACETAMINOPHEN 325 MG TABLET - Antibiotic given to treat as discussed. 2. Gas pain - ICD9: 787.3, ICD10: R14.1 Discussed differential diagnosis of LLQ pain. Might not be acute diverticulitis at this time 3. Infection in abdomen (HCC) - ICD9: 567.9, ICD10: K65.9 Given antibiotic - CIPROFLOXACIN 500 MG TABLET - METRONIDAZOLE 500 MG TABLET 4. Rib pain on left side - ICD9: 786.50, ICD10: R07.81 - HYDROCODONE 5 MG-ACETAMINOPHEN 325 MG TABLET 5. Fall, subsequent encounter - ICD9: V58.89, E888.9, ICD10: W19.XXXD - HYDROCODONE 5 MG-ACETAMINOPHEN 325 MG TABLET 6 Muscle strain - ICD9: 848.9, ICD10: T14.8XXA - HYDROCODONE 5 MG-ACETAMINOPHEN 325 MG TABLET Refill for pain med for recurrent pain as noted above from history of fall and injury to left side ribs and muscles. Patient seen in [facility] when present for recurrent LLQ pain. At this time, not consistent with acute diverticulitis. Further evaluation as discussed. Alisia Pacheco MD documented in this encounter [facility] 09-10-2022 History of Present illness Narrative This note was created using Service[employer]. Subjective Michelle Sharpe is a 82 year old female. Patient presents with: Follow Up SUBJECTIVE: Michelle Sharpe is a 82 year old year old lady here today for follow up appointment for review of medical conditions. Reviewed fall and ER visits. Almost 2 ago that had scraped along side of house and chairs. Tried to contact Dr. Rodríguez's office so not able to get pain meds from him. Oxycontin too much--nauseated. Discussed osteoporosis. PAST MEDICAL HISTORY Diagnosis Date Anticoagulant long-term use At risk for stroke Atypical atrial flutter (HCC) Bone metastases (HCC) 03/27/2017 Chronic diastolic heart failure (HCC) Chronic heart failure with preserved ejection fraction (HFpEF) (HCC) Essential hypertension First degree atrioventricular block History of ankle fracture right; no surgery needed as had started to heal by the time had Xray HLD (hyperlipidemia) HOCM (hypertrophic obstructive cardiomyopathy) (HCC) IBS (irritable bowel syndrome) with diarrhea and urgency Impaired fasting glucose 10/06/2008 LBBB (left bundle branch block) ekg 06/27/20 Long Q-T syndrome 01/21/2017 halfway (current) use of 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 Monson follows for benign tumor removed 2002 Current Outpatient Medications Medication Sig gabapentin (NEURONTIN) 100 mg capsule Take 2 capsules by mouth once daily for 30 days. fluticasone-salmeterol (ADVAIR, WIXELA) 250-50 mcg/dose inhaler Inhale 1 Puff as instructed twice daily. furosemide (LASIX) 20 mg tablet Take 1 tablet by mouth once daily. omeprazole (PRILOSEC) 20 mg capsule Take 1 capsule by mouth daily before breakfast. 1/2 hr before meal. potassium chloride (K-TAB) 10 mEq tablet Take 1 tablet by mouth once daily. albuterol HFA (VENTOLIN HFA) 90 mcg/actuation inhaler Inhale 2 Puffs as instructed every 4 hours as needed for wheezing/shortness of breath. warfarin (COUMADIN) 2 mg tablet Taking 2mg on Thu & Thu and 1.5mg the other days. warfarin (COUMADIN) 1 mg tablet TAKE 1 TABLET BY MOUTH ON , THUS, . TAKE 1 & 1/2 TABLETS ON THU, THU, THU, MON lisinopril (ZESTRIL, PRINIVIL) 10 mg tablet Take 1 tablet by mouth once daily. metoprolol succinate ER (TOPROL XL) 50 mg 24 hr tablet Take 1 tablet by mouth once daily. fluticasone (FLONASE) 50 mcg/actuation nasal spray USE 2 SPRAYS IN EACH NOSTRIL ONCE DAILY. RINSE MOUTH AFTER USE. azelastine (ASTELIN,ASTEPRO) 0.1% nasal spray Use 1-2 Sprays in each nostril twice daily as needed. magnesium oxide (MAGOX) 400 mg (241.3 mg magnesium) tablet Take 1 tablet by mouth once daily. OTC ipratropium (ATROVENT) 0.02 % nebulizer solution Use 2.5 mL via nebulizer four times daily as needed for Wheezing/Shortness of Breath. Use over 5-15minutes. therapeutic multivitamin (THERA VITAMIN) tablet Take 1 tablet by mouth daily with breakfast. Cholecalciferol, Vitamin D3, 1,000 unit cap Take 1 capsule by mouth once daily. No current facility-administered medications for this visit. Review of Systems Objective BP 146/86 Pulse 98 Wt 63 kg (139 lb) SpO2 96% BMI 24.02 kg/m Physical Exam Constitutional: Appearance: Normal appearance. HENT: Head: Normocephalic. Eyes: Conjunctiva/sclera: Conjunctivae normal. Cardiovascular: Rate and Rhythm: Normal rate and regular rhythm. Heart sounds: Normal heart sounds. Pulmonary: Effort: Pulmonary effort is normal. Breath sounds: Normal breath sounds. Skin: General: Skin is warm and dry. Neurological: General: No focal deficit present. Mental Status: She is alert and oriented to person, place, and time. Psychiatric: Mood and Affect: Mood normal. Behavior: Behavior normal. Thought Content: Thought content normal. Judgment: Judgment normal. Assessment and Plan Encounter Diagnosis ICD-10-CM 1. Rib pain on left side R07.81 predniSONE (DELTASONE) 10 mg tablet HYDROcodone-acetaminophen (NORCO) 5-325 mg per tablet 2. Fall, subsequent encounter W19.XXXD predniSONE (DELTASONE) 10 mg tablet HYDROcodone-acetaminophen (NORCO) 5-325 mg per tablet 3. Muscle strain T14.8XXA predniSONE (DELTASONE) 10 mg tablet HYDROcodone-acetaminophen (NORCO) 5-325 mg per tablet 4. Age related osteoporosis, unspecified pathological fracture presence M81.0 alendronate (FOSAMAX) 70 mg tablet Above issues addressed with patient. Patient involved in shared decision making for management of medical issues. History and medications reviewed. Epic updated as needed Refills and/or prescriptions taken care of and meds adjusted as indicated after reviewed history, exam and labs. Acute pain treated as noted above. She will discuss with Dr. Rodríguez so he is aware of RX that was given by me. Further evaluation and treatment as indicated. Encouraged on efforts at healthy diet and regular exercise and adequate sleep. Alisia Pacheco MD documented in this encounter [facility] 09-04-2022 Miscellaneous Notes Patient called and notified of results and provider message. Patient voiced understanding but would like to discuss with provider. Patient set up appointment to see provider on 09/10/2022. Linda Elmore RN Message left for pt to return call to a nurse to review. Verify pharmacy too. Med list reviewed,do not see where pt has tried oral agent for this. She would need to try this first for any treatment would be authorized. ----- Message from Alisia Pacheco MD sent at 09/04/2022 2:42 AM EDT ----- Decreased bone density with worsening of osteoporosis. See if patient would choose to treat at this time given higher risk for osteoporotic fracture at 33% and hip fracture 13%. Options include weekly pill (Fosamax), once yearly infusion (Reclast) and every 6 months Prolia. documented in this encounter [facility] 09-01-2022 History of Present illness Narrative CC: Patient presents with: Chest Congestion: SOB, rib pain x this AM HPI: Michelle Sharpe is a 82 year old female who presents to the office with complaint of chest congestion for a few days. Symptoms are staying the same. Associated symptoms includes back pain due to falling into a stack of chairs 2 weeks ago. (Was checked at the ER after this) Denies fever, nausea, vomiting , and diarrhea. Treatments tried include nothing so far. with no relief of symptoms. Sick contacts: unknown. History of asthma, frequent episodes of bronchitis, chronic bronchitis, bronchiectasis or COPD: No Smoker: No Seasonal/environmental allergies: No The ROS is otherwise negative. The patient's pmh, medications, allergies, and past visits are reviewed. PHYSICAL EXAM: BP 122/76 Pulse 91 Temp 36.8 C (98.3 F) Resp 20 Wt 66.7 kg (147 lb) SpO2 97% BMI 25.41 kg/m General appearance: alert, cooperative, pleasant, in no acute distress Head: Normocephalic Eyes: EOM's intact, conjunctiva pink and moist, no icterus, sclera white, non-injected Heart: Negative. RRR without obvious murmur, gallop, or rubs. No ectopy. Lungs: wheezing diffusely, left right is clear throughout. PAST MEDICAL HISTORY Diagnosis Date Anticoagulant long-term use At risk for stroke Atypical atrial flutter (HCC) Bone metastases (HCC) 03/27/2017 Chronic diastolic heart failure (HCC) Chronic heart failure with preserved ejection fraction (HFpEF) (HCC) Essential hypertension First degree atrioventricular block History of ankle fracture right; no surgery needed as had started to heal by the time had Xray HLD (hyperlipidemia) HOCM (hypertrophic obstructive cardiomyopathy) (HCC) IBS (irritable bowel syndrome) with diarrhea and urgency Impaired fasting glucose 10/06/2008 LBBB (left bundle branch block) ekg 06/27/20 Long Q-T syndrome 01/21/2017 halfway (current) use of 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 Monson follows for benign tumor removed 2002 PAST SURGICAL HISTORY Procedure Laterality Date ANESTH,PACEMAKER INSERTION 01/[address] [facility] [address]. Souza BLADDER SURGERY HX 2003 tumor removed from bladder CARDIOVERSION ELECTIVE ARRHYTHMIA INTERNAL SPX 04/2019 CARDIOVERSION ELECTIVE ARRHYTHMIA INTERNAL SPX 04/24/2020 [facility] CARDIOVERSION ELECTIVE ARRHYTHMIA INTERNAL SPX 05/2017 CARDIOVERSION ELECTIVE ARRHYTHMIA INTERNAL SPX 10/2017 CARDIOVERSION ELECTIVE ARRHYTHMIA INTERNAL SPX 10/2018 HEART VALVE REPAIR 07/2018 SEPTAL MYECTOMY AND MVP WITH ANNULOPLASTY WITH A #33 RM BAND, B/L PULMONARY VEIN ISOLATION WITH MULTIPLE OCCASIONA SOF THE ARTICURE RADIOFREQUENCY CLAMP AND CLIPPING OF THE LEFT ATRIAL APPENDAGE WITH A 50MM ARTICURE CLIP VENTRICULOMYOTOMY-MYECTOMY 07/2018 septal myectomy for HCM; [facility], Dr. Jo ALLERGIES Zyloprim [Allopurinol], Environmental [Other], and Tramadol MEDICATIONS gabapentin (NEURONTIN) 100 mg capsule Take 2 capsules by mouth once daily for 30 days. fluticasone-salmeterol (ADVAIR, WIXELA) 250-50 mcg/dose inhaler Inhale 1 Puff as instructed twice daily. furosemide (LASIX) 20 mg tablet Take 1 tablet by mouth once daily. omeprazole (PRILOSEC) 20 mg capsule Take 1 capsule by mouth daily before breakfast. 1/2 hr before meal. potassium chloride (K-TAB) 10 mEq tablet Take 1 tablet by mouth once daily. albuterol HFA (VENTOLIN HFA) 90 mcg/actuation inhaler Inhale 2 Puffs as instructed every 4 hours as needed for wheezing/shortness of breath. warfarin (COUMADIN) 2 mg tablet Taking 2mg on Thu & Thu and 1.5mg the other days. warfarin (COUMADIN) 1 mg tablet TAKE 1 TABLET BY MOUTH ON , WEDS, TH. TAKE 1 & 1/2 TABLETS ON THU, SAT, SUN, MON lisinopril (ZESTRIL, PRINIVIL) 10 mg tablet Take 1 tablet by mouth once daily. metoprolol succinate ER (TOPROL XL) 50 mg 24 hr tablet Take 1 tablet by mouth once daily. fluticasone (FLONASE) 50 mcg/actuation nasal spray USE 2 SPRAYS IN EACH NOSTRIL ONCE DAILY. RINSE MOUTH AFTER USE. azelastine (ASTELIN,ASTEPRO) 0.1% nasal spray Use 1-2 Sprays in each nostril twice daily as needed. magnesium oxide (MAGOX) 400 mg (241.3 mg magnesium) tablet Take 1 tablet by mouth once daily. OTC ipratropium (ATROVENT) 0.02 % nebulizer solution Use 2.5 mL via nebulizer four times daily as needed for Wheezing/Shortness of Breath. Use over 5-15minutes. therapeutic multivitamin (THERA VITAMIN) tablet Take 1 tablet by mouth daily with breakfast. Cholecalciferol, Vitamin D3, 1,000 unit cap Take 1 capsule by mouth once daily. FAMILY HISTORY Problem Relation Age of Onset Hypertension Father other (allergic reaction) Father from allergic reaction Stroke Mother other (Myocardial infarction) Paternal Grandmother 80 Social History Tobacco Use Smoking status: Former Packs/day: 1.00 Years: 58.00 Pack years: 58.00 Types: Cigarettes Start date: 1955 Quit date: 07/02/2005 Years since quittin.1 Smokeless tobacco: Never Tobacco comments: No smoking in childhood home. Spouse quit smoking years before patient did. Vaping Use Vaping Use: Never used Substance Use Topics Alcohol use: Yes Comment: occasional Drug use: No ASSESSMENT/PLAN: 1. Chest congestion - ICD9: 786.9, ICD10: R09.89 - XR CHEST 2V FRONTAL/LAT * * * * Physician Interpretation * * * * EXAMINATION: CHEST RADIOGRAPH (2 VIEW FRONTAL & LATERAL) CLINICAL HISTORY: Chest congestion MQ: [id number] EXAM DATE/TIME: 09/01/2022 2:53 PM COMPARISON: Chest x-ray dated August 21, 2021 RESULT: Lines, tubes, and devices: Left transvenous pacemaker with lead projecting over the right ventricle. Lungs and pleura: Trace linear scarring versus atelectasis in the left lower lung zone zone. No consolidation. No lung mass. No pleural effusion. No pneumothorax. Cardiomediastinal silhouette: Mildly enlarged cardiomediastinal silhouette with postsurgical changes from median sternotomy, presence of a valvular prosthesis and atrial appendage clip. Bones and soft tissues: Osseous demineralization and degenerative changes in the spine. Remote healed left lateral rib fractures IMPRESSION IMPRESSION: No significant acute radiographic abnormality. Cloth Desizing Range Tender: PHILIPPE Transcribe Date/Time: Sep 01 2022 3:00P Dictated by : VANDANA HENSLEY MD At this time patient was instructed to just rest and see if the area gets any more comfortable over the next week or so. If not she will follow-up with primary care. Pina Singleton APRN.[email or web address] documented in this encounter [facility] 08-25-2022 Miscellaneous Notes Patient calls back and notified of results. Patient voiced understanding. Linda Elmore RN Left message for return call. Please let patient know that no rib fractures or abnormalities were noted on rib xray. Thank you Mana Valentin APRN.[email or web address] documented in this encounter [facility] 08-22-2022 History of Present illness Narrative CC: Patient presents with: Recheck: [facility] ER follow up HPI Michelle Sharpe is a 82 year old female who presents today for ER follow-up. Facility: [facility] ER Date of visit: 08/17/22 Reason for visit: high heart rate and shortness of breath. - Patient reported HR of 120s the night prior to hospital visit. Has chronic A-fib and pacemaker but does not take her metoprolol. Told ER physician she only takes it when she is high but did not take when her HR was in the 120s. Also felt slightly SOB. Has COPD and never took her albuterol inhaler. Had a nebulizer treatment in ER and symptoms resolved. Discharge: instructed to take metoprolol daily and use albuterol inhaler as needed for shortness of breath. Current symptoms: Denies any further shortness of breath or any chest pain, palpitations, edema, or wheezing. Per patient she is supposed to only take metoprolol if HR is greater than 100. Is unsure who told her to do that and prescription states daily without any parameters. Has A-fib and a pacemaker and sees [facility]. Unsure when she last saw them but they manage her coumadin dosing. COPD:Has not used her emergency inhaler since ER visit and continues with her advair inhaler. Denies any further shortness of breath. Hit left side of her back last night while walking her dog. Unsure what she hit but backed up into something, thinks maybe a shovel handle. Does have a slight ache to area with increasing with shortness of breath. REVIEW OF SYSTEMS General: no fevers, no chills, no night sweats, no recurrent infections, no change in appetite, no change in energy, and no significant changes in weight Respiratory: no cough, no wheezing, no shortness of breath, no hemoptysis Cardiovascular: no chest pain, no chest pressure, no palpitations, and no swelling GI: No nausea, vomiting, or diarrhea : Denies blood in urine, dysuria, dark colored or change in urine Neurologic: No headache, weakness, numbness, tingling, dizziness, memory loss, syncope. PAST MEDICAL HISTORY Diagnosis Date Anticoagulant long-term use At risk for stroke Atypical atrial flutter (HCC) Bone metastases (HCC) 03/27/2017 Chronic diastolic heart failure (HCC) Chronic heart failure with preserved ejection fraction (HFpEF) (HCC) Essential hypertension First degree atrioventricular block History of ankle fracture right; no surgery needed as had started to heal by the time had Xray HLD (hyperlipidemia) HOCM (hypertrophic obstructive cardiomyopathy) (HCC) IBS (irritable bowel syndrome) with diarrhea and urgency Impaired fasting glucose 10/06/2008 LBBB (left bundle branch block) ekg 06/27/20 Long Q-T syndrome 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 Monson follows for benign tumor removed 2002 PAST SURGICAL HISTORY Procedure Laterality Date ANESTH,PACEMAKER INSERTION 01/[address]22 [facility] [address] Souza BLADDER SURGERY HX 2004 tumor removed from bladder CARDIOVERSION ELECTIVE ARRHYTHMIA INTERNAL SPX 04/2019 CARDIOVERSION ELECTIVE ARRHYTHMIA INTERNAL SPX 04/24/2020 [facility] CARDIOVERSION ELECTIVE ARRHYTHMIA INTERNAL SPX 05/2017 CARDIOVERSION ELECTIVE ARRHYTHMIA INTERNAL SPX 10/2017 CARDIOVERSION ELECTIVE ARRHYTHMIA INTERNAL SPX 10/2018 HEART VALVE REPAIR 07/2018 SEPTAL MYECTOMY AND MVP WITH ANNULOPLASTY WITH A #33 RM BAND, B/L PULMONARY VEIN ISOLATION WITH MULTIPLE OCCASIONA SOF THE ARTICURE RADIOFREQUENCY CLAMP AND CLIPPING OF THE LEFT ATRIAL APPENDAGE WITH A 50MM ARTICURE CLIP VENTRICULOMYOTOMY-MYECTOMY 07/2018 septal myectomy for HCM; [facility], Dr. Jo ALLERGIES Zyloprim [Allopurinol], Environmental [Other], and Tramadol MEDICATIONS gabapentin (NEURONTIN) 100 mg capsule Take 2 capsules by mouth once daily for 30 days. fluticasone-salmeterol (ADVAIR, WIXELA) 250-50 mcg/dose inhaler Inhale 1 Puff as instructed twice daily. furosemide (LASIX) 20 mg tablet Take 1 tablet by mouth once daily. omeprazole (PRILOSEC) 20 mg capsule Take 1 capsule by mouth daily before breakfast. 1/2 hr before meal. potassium chloride (K-TAB) 10 mEq tablet Take 1 tablet by mouth once daily. albuterol HFA (VENTOLIN HFA) 90 mcg/actuation inhaler Inhale 2 Puffs as instructed every 4 hours as needed for wheezing/shortness of breath. warfarin (COUMADIN) 2 mg tablet Taking 2mg on Sat & Sun and 1.5mg the other days. warfarin (COUMADIN) 1 mg tablet TAKE 1 TABLET BY MOUTH ON , , . TAKE 1 & 1/2 TABLETS ON THU, SAT, SUN, MON lisinopril (ZESTRIL, PRINIVIL) 10 mg tablet Take 1 tablet by mouth once daily. metoprolol succinate ER (TOPROL XL) 50 mg 24 hr tablet Take 1 tablet by mouth once daily. fluticasone (FLONASE) 50 mcg/actuation nasal spray USE 2 SPRAYS IN EACH NOSTRIL ONCE DAILY. RINSE MOUTH AFTER USE. azelastine (ASTELIN,ASTEPRO) 0.1% nasal spray Use 1-2 Sprays in each nostril twice daily as needed. magnesium oxide (MAGOX) 400 mg (241.3 mg magnesium) tablet Take 1 tablet by mouth once daily. OTC ipratropium (ATROVENT) 0.02 % nebulizer solution Use 2.5 mL via nebulizer four times daily as needed for Wheezing/Shortness of Breath. Use over 5-15minutes. therapeutic multivitamin (THERA VITAMIN) tablet Take 1 tablet by mouth daily with breakfast. Cholecalciferol, Vitamin D3, 1,000 unit cap Take 1 capsule by mouth once daily. FAMILY HISTORY Problem Relation Age of Onset Hypertension Father other (allergic reaction) Father from allergic reaction Stroke Mother other (Myocardial infarction) Paternal Grandmother 80 Social History Tobacco Use Smoking status: Former Packs/day: 1.00 Years: 58.00 Pack years: 58.00 Types: Cigarettes Start date: 1955 Quit date: 07/02/2005 Years since quittin.1 Smokeless tobacco: Never Tobacco comments: No smoking in childhood home. Spouse quit smoking years before patient did. Vaping Use Vaping Use: Never used Substance Use Topics Alcohol use: Yes Comment: occasional Drug use: No PHYSICAL EXAM BP 132/80 Pulse 64 Resp 16 Wt 66.7 kg (147 lb) BMI 25.41 kg/m General Appearance: well appearing, in no acute distress, alert Skin: Skin color, texture, turgor normal for age; large bruise and abrasion to left lower rib area. Eyes: conjunctiva pink and moist, no icterus, sclera white, non-injected Back: No pain to palpation to spine, Full and painless ROM including flexion, extension, lateral side bending and rotation, Reflexes 2+ and symmetric. Tenderness to left lower rib area bu no deformities or step offs noted. - chest expansion equal Lungs: Lungs clear to auscultation. No wheezing, rhonchi, rales. Heart: apical irregular without murmur, gallop, or rubs. No ectopy Neurological: Gait normal. Sensation grossly intact., speech normal, mental status intact FECAL OCCULT BLOOD Never done LDL CHOLESTEROL due on 08/23/2019 ADVANCE DIRECTIVE DISCUSSION Never done DEPRESSION ASSESSMENT Never done COVID-19 VACCINE(4 - Booster for Moderna series) due on 11/07/2021 INFLUENZA(1) due on 07/03/2022 DTAP,TDAP,TD(1 - Tdap) due on 11/03/2022 SHINGRIX VACCINE(1 of 2) due on 11/03/2022 DIABETES SCREEN due on 07/10/2025 BONE DENSITY Completed SPIROMETRY Completed PNEUMOCOCCAL: 65+ Completed DATA REVIEWED: Outside chart from [facility] reviewed. ASSESSMENT/PLAN: 1. Atrial fibrillation, unspecified type (HCC) - ICD9: 427.31, ICD10: I48.91 (primary diagnosis) Rate controlled at this time and on warfarin for anticoagulant - discussed using metoprolol daily and with having a pacemaker, no concern for her heart rate to go too low. - patient to follow up with cardiology in regards if she is to be on a metoprolol parameter and as needed, or if she is supposed to be daily as ordered. - has a follow up already scheduled with Jerad ABERNATHY 2. Chronic obstructive pulmonary disease, unspecified COPD type (HCC) - ICD9: 496, ICD10: J44.9 - continue with treatment and albuterol inhaler as ordered for wheezing and shortness of breath. 3. Rib pain on left side - ICD9: 786.50, ICD10: R07.81 - can use tylenol for pain and ice to location for 10-15 minutes 4-5 times a day. - XR RIBS/CHEST 3V AP RIB/OBLS/CXR LEFT 4. Rib injury - ICD9: 959.11, ICD10: S29.9XXA As above - XR RIBS/CHEST 3V AP RIB/OBLS/CXR LEFT Mana Valentin APRN.CNP Prescription instructions reviewed with patient as applicable. Potential red flag symptoms discussed with the patient. Reviewed appropriate action plan to take if red flag symptoms occur. Patient agreeable to treatment plan. Mana Valentin APRN.CNP documented in this encounter [facility] 08-14-2022 Miscellaneous Notes Attempted to scheduled patient with either radiology or Vascular for her DVT for 08/15. Neither of them have openings at this time. I emailed both departments to ask if there is any way we can accommodate patient tomorrow. I will follow up tomorrow morning. Asking schedulers to contact pt to arrange both. Can't remember which DVT test to order so ordered both--cancel the one not needed. Ordered BMD too Patient calls and states that she was just at [facility] and they were concerned that patient has a DVT in her right leg. Patients leg and ankle are swollen. Patient was told that she needed to call PCP to get orders for ultrasound for right leg. Patient also states that [facility] is wanting orders placed for a bone density test. Please review and advise, Linda Elmore RN documented in this encounter [facility] 08-14-2022 Instructions Alisia Pacheco MD - 08/14/2022 4:26 PM EDT BONE MINERAL DENSITY PATIENT INSTRUCTIONS ========= Bone mineral density testing measures the amount of calcium in certain parts of your bones. This information determines how strong your bones are. The test is used to detect osteoporosis, a disease in which the bone's mineral content and density are low, increasing a person's risk of fractures. The lumbar spine (lower back) and the hip are the skeletal sites usually examined. For the test, remember that: 1. You cannot take this test if you are . 2. Eat a normal diet on the day of the test. 3. Take your medications as you normally would. 4. DO NOT take calcium supplements (such as Tums) for 24 hours before the test. 5. On the day of the test, leave valuables (jewelry or credit cards) at home. 6. The test should be performed prior to oral, rectal or IV contrast studies, or at least 7 days after any of these studies. For the test, you may be asked to wear a hospital gown. You will lie on your back, on a padded table, in a comfortable position. Generally, you can resume your usual activities immediately. documented in this encounter [facility] 08-13-2022 Miscellaneous Notes Patient given provider's message below. Olinda Perez RN Left a message for pt to call the office and ask to speak to a nurse. Avelina Polanco LPN She has been getting this filled by Dr Rodríguez. PCP ordered in July but pharmacy filled Basli script. Should continue to obtain from Dr Rodríguez if still seeing him. I can send 30 day supply until that is clarified. Patient calls and is asking if gabapentin can be sent to [facility]. [facility]. Please review and advise, Linda Elmore RN documented in this encounter [facility] 10-04-2022 Miscellaneous Notes Patient notified ----- Message from Alisia Pacheco MD sent at 08/02/2022 12:58 AM EDT ----- Noted diverticulosis and thickening of the bowel wall but not overt diverticulitis--note that given her symptoms were improving, it correlates clinically with resolving diverticulitis. Other findings stable (gallstones, left adrenal adenoma, lesions in liver and spleen). Let patient know. documented in this encounter [facility] 07-14-2022 Instructions Alisia Pacheco MD - 07/14/2022 3:28 PM EDT Check INR at the end of this week because of Cipro. documented in this encounter [facility] 07-14-2022 History of Present illness Narrative Images from the original note were not included. This note was created using [employer] vascular solutionter. Subjective Michelle Sharpe is a 82 year old female. Patient presents with: ER F/U SUBJECTIVE: Michelle Sharpe is a 82 year old year old lady here today for ER follow up appointment for review of medical conditions. Reviewed issues with back--Dr. Rodríguez did injections. She made an appointment with Dr. Cárdenas (spine surgeon, [facility]). Noted that had pacer put in because of low heart rate. Had issues with high pulse rate now more lately. Now has added meds to prevent fast heart rate. Noted recent LLQ pain and clinical diagnosis of diverticulitis. Stopped the Augmentin since caused diarrhea that was severe. Got about 2 days in. Pain is not bad now. Still a tiny bit nauseous. Has had colonoscopy and EGD recently. Discussed no prior CT when had LLQ pain recently. No fevers or chills. Pain better now. Has been able to eat some. PAST MEDICAL HISTORY Diagnosis Date Anticoagulant long-term use At risk for stroke Atypical atrial flutter (HCC) Bone metastases (HCC) 03/27/2017 Chronic diastolic heart failure (HCC) Chronic heart failure with preserved ejection fraction (HFpEF) (HCC) Essential hypertension First degree atrioventricular block History of ankle fracture right; no surgery needed as had started to heal by the time had Xray HLD (hyperlipidemia) HOCM (hypertrophic obstructive cardiomyopathy) (HCC) IBS (irritable bowel syndrome) with diarrhea and urgency Impaired fasting glucose 10/06/2008 LBBB (left bundle branch block) ekg 06/27/20 Long Q-T syndrome 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 Monson follows for benign tumor removed 2002 Current Outpatient Medications Medication Sig amoxicillin-clavulanic acid (AUGMENTIN) 875-125 mg per tablet Take 1 tablet by mouth twice daily for 5 days. (Patient not taking: Reported on 07/14/2022) gabapentin (NEURONTIN) 100 mg capsule Take 2 capsules by mouth once daily for 180 days. fluticasone-salmeterol (ADVAIR, WIXELA) 250-50 mcg/dose inhaler Inhale 1 Puff as instructed twice daily. furosemide (LASIX) 20 mg tablet Take 1 tablet by mouth once daily. omeprazole (PRILOSEC) 20 mg capsule Take 1 capsule by mouth daily before breakfast. 1/2 hr before meal. potassium chloride (K-TAB) 10 mEq tablet Take 1 tablet by mouth once daily. albuterol HFA (VENTOLIN HFA) 90 mcg/actuation inhaler Inhale 2 Puffs as instructed every 4 hours as needed for wheezing/shortness of breath. warfarin (COUMADIN) 2 mg tablet Taking 2mg on Sat & Sun and 1.5mg the other days. warfarin (COUMADIN) 1 mg tablet TAKE 1 TABLET BY MOUTH ON , WEDS, . TAKE 1 & 1/2 TABLETS ON THU, ENRIQUETA, SUN, MON lisinopril (ZESTRIL, PRINIVIL) 10 mg tablet Take 1 tablet by mouth once daily. metoprolol succinate ER (TOPROL XL) 50 mg 24 hr tablet Take 1 tablet by mouth once daily. fluticasone (FLONASE) 50 mcg/actuation nasal spray USE 2 SPRAYS IN EACH NOSTRIL ONCE DAILY. RINSE MOUTH AFTER USE. azelastine (ASTELIN,ASTEPRO) 0.1% nasal spray Use 1-2 Sprays in each nostril twice daily as needed. magnesium oxide (MAGOX) 400 mg (241.3 mg magnesium) tablet Take 1 tablet by mouth once daily. OTC ipratropium (ATROVENT) 0.02 % nebulizer solution Use 2.5 mL via nebulizer four times daily as needed for Wheezing/Shortness of Breath. Use over 5-15minutes. therapeutic multivitamin (THERA VITAMIN) tablet Take 1 tablet by mouth daily with breakfast. Cholecalciferol, Vitamin D3, 1,000 unit cap Take 1 capsule by mouth once daily. No current facility-administered medications for this visit. Review of Systems Objective BP 122/84 Pulse 87 Wt 64.9 kg (143 lb) SpO2 97% BMI 24.72 kg/m Last 5 Encounter Wt Readings: Date: Wt: 07/14/2022 64.9 kg (143 lb) 07/10/2022 65.2 kg (143 lb 12.8 oz) 05/01/2022 66.2 kg (146 lb) 04/15/2022 63 kg (139 lb) 04/08/2022 64.4 kg (142 lb) No waist measurement recorded Estimated body mass index is 24.72 kg/m as calculated from the following: Height as of 04/04/22: 162 cm (5' 3.78 ). Weight as of this encounter: 64.9 kg (143 lb). Last 5 Encounter BP Readings: Date: BP: 07/14/2022 122/84 07/10/2022 120/62 05/01/2022 138/74 04/15/2022 114/64 04/08/2022 128/84 Physical Exam Constitutional: Appearance: Normal appearance. HENT: Head: Normocephalic. Eyes: Conjunctiva/sclera: Conjunctivae normal. Cardiovascular: Rate and Rhythm: Normal rate. Rhythm irregularly irregular. Heart sounds: Normal heart sounds. Pulmonary: Effort: Pulmonary effort is normal. Breath sounds: Normal breath sounds. Abdominal: General: Abdomen is flat. Bowel sounds are normal. Palpations: Abdomen is soft. Tenderness: There is abdominal tenderness in the left lower quadrant. There is no guarding or rebound. Skin: General: Skin is warm and dry. Neurological: General: No focal deficit present. Mental Status: She is alert and oriented to person, place, and time. Psychiatric: Mood and Affect: Mood normal. Behavior: Behavior normal. Thought Content: Thought content normal. Judgment: Judgment normal. Assessment and Plan Encounter Diagnosis ICD-10-CM 1. Infection in abdomen (HCC) K65.9 CT ABD/PEL W IVCON ciprofloxacin HCl (CIPRO) 500 mg tablet metroNIDAZOLE (FLAGYL) 500 mg tablet 2. Left lower quadrant abdominal pain R10.32 CT ABD/PEL W IVCON ciprofloxacin HCl (CIPRO) 500 mg tablet metroNIDAZOLE (FLAGYL) 500 mg tablet Treated empirically for acute diverticulitis 4 times; needs CT scan to evaluate 3. Acute diarrhea R19.7 Stopped after stopped Augmentin; tolerated the same antibiotic in the past so not sure why an issue now. Will get CT scan done CHUCK. Changed antibiotic since did not tolerate Augmentin this time. Further evaluation and treatment as indicated. Noted had recent EGD and colonoscopy 04/15/21. Large mouthed diverticulosis noted. Further evaluation and treatment as indicated. Alisia Pacheco MD documented in this encounter [facility] 07-11-2022 Miscellaneous Notes This [employer] called patient at [phone] and identified with name and . States she is feeling better. Started taking prescription Advised to increase water intake Go to ED if any abdominal pain. Keep follow up Thursday with Dr. Pacheco. Patient verbalized understanding All questions answered. Lou Pascual CNP documented in this encounter [facility] 07-11-2022 Miscellaneous Notes [facility] and no pharmacy in [facility]. [facility] have augmentin 875-125 mg. Gave verbal order to pharmacist, Martinez. Cancelled augmentin at [facility]. Notified patient [facility] 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 Pt would like to be notified. Avelina Polanco LPN documented in this encounter [facility] 07-10-2022 History of Present illness Narrative Patient presents with: Pain: Pt reported (LT) sided pain, gas, diarrhea, denied SOB, chest pain with visit. HPI: Left sided abdoimnal pain: Duration: couple days Location: LLQ Character: urge to defecate Radiation: No. Aggravating: Relieving: moving bowels or passing gas Pain relievers: Tylenol Positive symptoms: diarrhea, increased gas, tiny amount of bleeding the fist day, Negative symptoms: Fever, Chills, Malaise, Nausea, Vomiting, , Hx of sigmoid diverticulitis on CT 11/26/20. Treated here for diverticulitis based on symptoms and exam 01/2021, 11/2021, and 01/2022. Had colonoscopy with polypectomy while admitted for GI bleed April 2021. Treated at [facility] 07/05/22 for symptomatic afib with RVR. She was cardioverted and treated with medoprolol. PAST MEDICAL HISTORY Diagnosis Date Anticoagulant long-term use At risk for stroke Atypical atrial flutter (HCC) Bone metastases (HCC) 03/27/2017 Chronic diastolic heart failure (HCC) Chronic heart failure with preserved ejection fraction (HFpEF) (HCC) Essential hypertension First degree atrioventricular block History of ankle fracture right; no surgery needed as had started to heal by the time had Xray HLD (hyperlipidemia) HOCM (hypertrophic obstructive cardiomyopathy) (HCC) IBS (irritable bowel syndrome) with diarrhea and urgency Impaired fasting glucose 10/06/2008 LBBB (left bundle branch block) ekg 06/27/20 Long Q-T syndrome 01/21/2017 halfway (current) use of 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 Monson follows for benign tumor removed 2002 PAST SURGICAL HISTORY Procedure Laterality Date ANESTH,PACEMAKER INSERTION 01/[address]22 [facility] [address]. Souza BLADDER SURGERY HX 2003 tumor removed from bladder CARDIOVERSION ELECTIVE ARRHYTHMIA INTERNAL SPX 04/2019 CARDIOVERSION ELECTIVE ARRHYTHMIA INTERNAL SPX 04/24/2020 [facility] CARDIOVERSION ELECTIVE ARRHYTHMIA INTERNAL SPX 05/2017 CARDIOVERSION ELECTIVE ARRHYTHMIA INTERNAL SPX 10/2017 CARDIOVERSION ELECTIVE ARRHYTHMIA INTERNAL SPX 10/2018 HEART VALVE REPAIR 07/2018 SEPTAL MYECTOMY AND MVP WITH ANNULOPLASTY WITH A #33 RM BAND, B/L PULMONARY VEIN ISOLATION WITH MULTIPLE OCCASIONA SOF THE ARTICURE RADIOFREQUENCY CLAMP AND CLIPPING OF THE LEFT ATRIAL APPENDAGE WITH A 50MM ARTICURE CLIP VENTRICULOMYOTOMY-MYECTOMY 07/2018 septal myectomy for HCM; [facility], Dr. Jo MEDICATIONS: gabapentin (NEURONTIN) 100 mg capsule Take 2 capsules by mouth once daily for 180 days. fluticasone-salmeterol (ADVAIR, WIXELA) 250-50 mcg/dose inhaler Inhale 1 Puff as instructed twice daily. furosemide (LASIX) 20 mg tablet Take 1 tablet by mouth once daily. omeprazole (PRILOSEC) 20 mg capsule Take 1 capsule by mouth daily before breakfast. 1/2 hr before meal. potassium chloride (K-TAB) 10 mEq tablet Take 1 tablet by mouth once daily. albuterol HFA (VENTOLIN HFA) 90 mcg/actuation inhaler Inhale 2 Puffs as instructed every 4 hours as needed for wheezing/shortness of breath. warfarin (COUMADIN) 2 mg tablet Taking 2mg on Sat & Thu and 1.5mg the other days. warfarin (COUMADIN) 1 mg tablet TAKE 1 TABLET BY MOUTH ON , WED, . TAKE 1 & 1/2 TABLETS ON FRI, THU, SUN, MON lisinopril (ZESTRIL, PRINIVIL) 10 mg tablet Take 1 tablet by mouth once daily. metoprolol succinate ER (TOPROL XL) 50 mg 24 hr tablet Take 1 tablet by mouth once daily. fluticasone (FLONASE) 50 mcg/actuation nasal spray USE 2 SPRAYS IN EACH NOSTRIL ONCE DAILY. RINSE MOUTH AFTER USE. azelastine (ASTELIN,ASTEPRO) 0.1% nasal spray Use 1-2 Sprays in each nostril twice daily as needed. magnesium oxide (MAGOX) 400 mg (241.3 mg magnesium) tablet Take 1 tablet by mouth once daily. OTC ipratropium (ATROVENT) 0.02 % nebulizer solution Use 2.5 mL via nebulizer four times daily as needed for Wheezing/Shortness of Breath. Use over 5-15minutes. therapeutic multivitamin (THERA VITAMIN) tablet Take 1 tablet by mouth daily with breakfast. Cholecalciferol, Vitamin D3, 1,000 unit cap Take 1 capsule by mouth once daily. ALLERGIES: ALLERGIES Allergen Reactions Zyloprim [Allopurin* Rash Environmental [Othe* Intolerance rhinitis Tramadol Other: See Comments made patient woozy/dizzy VITALS: BP 120/62 Pulse 64 Temp 37.4 C (99.4 F) Resp 18 Wt 65.2 kg (143 lb 12.8 oz) SpO2 95% BMI 24.85 kg/m PHYSICAL EXAM: GEN: pleasant, no acute distress, alert HEENT: PERRL, EOMI, NECK: supple, HEART: Irregularly irregular rhythm, no murmurs LUNGS: clear to auscultation, no wheezes or crackles, no increased WOB ABD: soft, non-distended, no masses palpated, tender LLQ NEURO: alert and oriented to person, place, and time. Ambulates weakly with cane, transported by wheelchair. ASSESSMENT/PLAN: 1. Abdominal pain, LLQ (left lower quadrant) - ICD9: 789.04, ICD10: R10.32 (primary diagnosis) 2. History of colonic diverticulitis - ICD9: V12.79, ICD10: Z87.19 Treat for probable diverticulitis. - CBC + DIFF - BASIC METABOLIC PNL - AMOXICILLIN 875 MG-POTASSIUM CLAVULANATE 125 MG TABLET I recommended CT scan for confirmation of diagnosis. Scheduled for follow up with primary care in 4 days. She agrees to go the ER for evaluation if pain worsens, blood returns in stool, fever develops, or she has lethargy/dizziness. Danile Mcclelland MD documented in this encounter [facility] 07-10-2022 Miscellaneous Notes Patient calling in again and states she plans to go to [facility] today for further evaluation. Olinda Perez RN Patient calls and states that she has been having gas, diarrhea, and pain on left side of abdomen. It is the same symptoms that she was having in December. Patient does have a prescription for omeprazole however patient has not been taking medication. Patient is going to call pharmacy and see if she can get refill on medication. Is there anything else provider would recommend? Please review and advise, Linda Elmore RN documented in this encounter [facility] 07-05-2022 Miscellaneous Notes Okayed Last seen pcp 04/15/22. Next appt is with [employer] 09/15/22. Patient has been identified by name and date of : Yes Requested Prescriptions Pending Prescriptions Disp Refills gabapentin (NEURONTIN) 100 mg capsule 60 capsule 0 Sig: Take 2 capsules by mouth once daily for 30 days. RX INSTRUCTIONS: Patient aware RX will be sent to pharmacy. No need to notify patient. Renetta Stack documented in this encounter [facility] 06-04-2022 Miscellaneous Notes Discussed with EB, no contraindications. Patient notified. Inga Rodriguez LPN Pt. calls with question. She has had sinus pain above right eye on forehead for the past 2 days which is intermittent. She denies fever,r cough, or dyspnea. She has slight runny nose. She takes coumadin and purchased Mucinex Sinus Max. She read that she is supposed to check with if she takes coumadin. Please advise if ok for pt. to take? documented in this encounter [facility] 05-01-2022 History of Present illness Narrative PULM FUNCTION SMARTBLOCK: Provider: Aaliyah Stone PA-C Assisting Tech: GREG Wallace Spirometry: 1 documented in this encounter [facility] 05-01-2022 History of Present illness Narrative [facility] [place], 05/01/2022: Name: Michelle Sharpe : 1940 The patient is here today by herself. HPI: Michelle Sharpe is a 82 yo female with pmh significant for mitral regurgitation, HOCM, HTN, hyperlipidemia, AFib, chronic diastolic heart failure, small B-cell lymphoma with bone metastasis, and COPD. Recently had Pacemaker placed. Former smoker, quit 2004. 58 pack years. The patient is here for follow up of COPD. Since the last Pulmonary Clinic visit 07/26/2021, the patient was evaluated in [place] [facility] on 04/09/[address] chest unremarkable, no acute findings. Multiple gallstones. BNP 431. Treated with IV Lasix. Patient states she is only using her Wixela once weekly. Not using rescue bronchodilator. Occasional cough. Light colored sputum. No hemoptysis. No wheezing. No dyspnea at rest. Exertional dyspnea that is stable. No lower extremity edema. Taking Lasix as needed. I don't think I need it every day . Follows with [facility]. Currently not wearing supplemental oxygen. Maybe wear it once a month depending on the weather . DME: [employer]. PMH: Updated with patient today. FAMH: Updated with patient today. SOCH: Updated with patient today. ROS: General: Generally feels short of breath. Appetite good. Eyes, Ears, nose, throat: No post nasal drip, rhinorrhea, purulent nasal discharge. No epistaxis. No hoarseness. Vision stable. Cardiac: No angina, edema, orthopnea. GI: No heartburn, dysphagia, diarrhea. Musculoskeletal: No pain. Neuro: No headache, focal weakness, tremor. Skin: No rash. Otherwise negative. Allergies were reviewed and updated, and medications were reconciled with the patient. PHYSICAL EXAMINATION: BP 138/74 Pulse 60 Resp 18 Wt 66.2 kg (146 lb) SpO2 94% BMI 25.23 kg/m Gen: No acute distress. Cooperative with examination. ENT: Oral hygeine and dentition good. Pharynx clear. No halitosis. Resp: No stridor, accessory respiratory muscle use, supra-sternal or intercostal retractions. No wheezes, crackles. CV: Regular rythm. Heart tones normal. Radial pulses normal. Abd: Non distended. MSK: No kyphoscoliosis. Ext: Warm and well perfused. No clubbing, cyanosis, edema. Skin: No rash, ecchymoses. Neuro: Mental status normal. Affect normal. No tremor. DATA REVIEW: DATE: 05/01/2022 01/14/2021 11/03/2019 FVC 2.47, 101% 2.97, 115% 2.71, 103% FEV1 1.16, 63% 1.54, 79% 1.43, 72% FEV1/FVC 0.47 0.52 0.53 ASSESSMENT/PLAN: 1. Chronic obstructive pulmonary disease, unspecified COPD type (HCC) - ICD9: 496, ICD10: J44.9 (primary diagnosis) Symptomatically more short of breath with decreased FEV1 today most likely secondary to non-compliance with maintenance therapy. Advised patient that Wixela is a twice daily everyday medication. She states she is going to try to start using it everyday. Albuterol HFA inhaler, 2 inhalations 10 15 minutes prior to activities associated with shortness of breath, and as needed for rescue relief of shortness of breath or wheezing, up to 4 times daily. - OXIMETRY WITH AMBULATION - FLUTICASONE 250 MCG-SALMETEROL 50 MCG/DOSE BLISTR POWDR FOR INHALATION 2. Former smoker - ICD9: V15.82, ICD10: Z87.891 I addressed the questions of the patient, and she expressed understanding and acceptance of my answers. Aaliyah Stone PA-C documented in this encounter [facility] 04-15-2022 History of Present illness Narrative This note was created using [employer]. Subjective Michelle Sharpe is a 82 year old female. Patient presents with: Hospital F/U SUBJECTIVE: Michelle Sharpe is a 82 year old year old lady here today for hospital follow up appointment for review of medical conditions. Since I last saw her, has had a pace maker. Ended up in hospital after developed sudden onset nausea, vomiting, diarrhea, SOB in middle of the night. Had been started on macrodantin but on admission, UA was negative for signs of UTI so med was stopped. Had Chest CT which was unremarkable aside from multiple gallstones. BNP was 431. Was treated with IV Lasix. Noted that now has back ache. Started before the hospital stay. Will see Dr. Rodríguez again. Had shots that had helped before. Started 3 years ag0 and got better after chemo and now is back. Now has pain in both legs. He prescribed gabapentin. Helps to a certain degree. Does not seem to help the :sciatica type pain that starts on left then both rear end areas then down legs. Feels better when sits or lays down. When walking it hurts. Considering seeing a spine surgeon (Dr. Cárdenas at [facility]). Prednisone taper that Jerad gave had helped before. PAST MEDICAL HISTORY Diagnosis Date Anticoagulant long-term use At risk for stroke Atypical atrial flutter (HCC) Bone metastases (HCC) 03/27/2017 Chronic diastolic heart failure (HCC) Chronic heart failure with preserved ejection fraction (HFpEF) (HCC) Essential hypertension First degree atrioventricular block History of ankle fracture right; no surgery needed as had started to heal by the time had Xray HLD (hyperlipidemia) HOCM (hypertrophic obstructive cardiomyopathy) (HCC) IBS (irritable bowel syndrome) with diarrhea and urgency Impaired fasting glucose 10/06/2008 LBBB (left bundle branch block) ekg 06/27/20 Long Q-T syndrome 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 Monson follows for benign tumor removed 2002 Current Outpatient Medications Medication Sig furosemide (LASIX) 20 mg tablet Take 1 tablet by mouth once daily. gabapentin (NEURONTIN) 100 mg capsule Take 200 mg by mouth once daily. nitrofurantoin monohydrate and macrocrystal (MACROBID) 100 mg capsule Take 1 capsule by mouth twice daily with meals for 10 days. Take with food omeprazole (PRILOSEC) 20 mg capsule Take 1 capsule by mouth daily before breakfast. 1/2 hr before meal. potassium chloride (K-TAB) 10 mEq tablet Take 1 tablet by mouth once daily. fluticasone-salmeterol (ADVAIR, WIXELA) 250-50 mcg/dose inhaler Inhale 1 Puff as instructed twice daily. albuterol HFA (VENTOLIN HFA) 90 mcg/actuation inhaler Inhale 2 Puffs as instructed every 4 hours as needed for wheezing/shortness of breath. warfarin (COUMADIN) 2 mg tablet Taking 2mg on Thu & Sun and 1.5mg the other days. warfarin (COUMADIN) 1 mg tablet TAKE 1 TABLET BY MOUTH ON , WEDS, . TAKE 1 & 1/2 TABLETS ON THU, THU, THU, MON lisinopril (ZESTRIL, PRINIVIL) 10 mg tablet Take 1 tablet by mouth once daily. metoprolol succinate ER (TOPROL XL) 50 mg 24 hr tablet Take 1 tablet by mouth once daily. fluticasone (FLONASE) 50 mcg/actuation nasal spray USE 2 SPRAYS IN EACH NOSTRIL ONCE DAILY. RINSE MOUTH AFTER USE. azelastine (ASTELIN,ASTEPRO) 0.1% nasal spray Use 1-2 Sprays in each nostril twice daily as needed. magnesium oxide (MAGOX) 400 mg (241.3 mg magnesium) tablet Take 1 tablet by mouth once daily. OTC ipratropium (ATROVENT) 0.02 % nebulizer solution Use 2.5 mL via nebulizer four times daily as needed for Wheezing/Shortness of Breath. Use over 5-15minutes. therapeutic multivitamin (THERA VITAMIN) tablet Take 1 tablet by mouth daily with breakfast. Cholecalciferol, Vitamin D3, 1,000 unit cap Take 1 capsule by mouth once daily. No current facility-administered medications for this visit. Review of Systems Objective BP 114/64 Pulse 64 Wt 63 kg (139 lb) SpO2 94% BMI 24.02 kg/m Physical Exam Constitutional: Appearance: Normal appearance. HENT: Head: Normocephalic. Eyes: Conjunctiva/sclera: Conjunctivae normal. Cardiovascular: Rate and Rhythm: Normal rate and regular rhythm. Heart sounds: Normal heart sounds. Comments: Right leg larger than left--slight edema (prior ankle fracture). No pitting edema Pulmonary: Effort: Pulmonary effort is normal. Breath sounds: Normal breath sounds. Skin: General: Skin is warm and dry. Neurological: General: No focal deficit present. Mental Status: She is alert and oriented to person, place, and time. Psychiatric: Mood and Affect: Mood normal. Behavior: Behavior normal. Thought Content: Thought content normal. Judgment: Judgment normal. Assessment and Plan ASSESSMENT/PLAN: 1. Chronic heart failure with preserved ejection fraction (HFpEF) ([facility]) - ICD9: 428.9, ICD10: I50.32 Compensated now. Finish 40 mg daily for a week then resume 20 mg daily. Follow up with cardiology end of the month or next month. - FUROSEMIDE 20 MG TABLET --Check up on pacemaker 2. Chronic right-sided low back pain with right-sided sciatica - ICD9: 724.2, 724.3, 338.29, ICD10: M54.41, G89.29 Exacerbation of back pain and sciatica symptoms. Follow up with Dr. Rodríguez 3. Acute bilateral low back pain with left-sided sciatica - ICD9: 724.2, 724.3, ICD10: M54.42 - PREDNISONE 10 MG TABLET--taper as before 4. Doing well s/p pacemaker Alisia Pacheco MD documented in this encounter [facility] 04-11-2022 Miscellaneous Notes Patient went to [facility] for Acute respiratory infection and antibiotic was stopped. Please let her know mixed roslyn on urinary culture. Recommend recheck urinalysis in about 1 month. If microscopic hematuria persists recommend an appointment with urology provider. consult has been placed in the event she may need it. documented in this encounter [facility] 04-08-2022 Instructions Jerad Bales APRN.CNS - 04/08/2022 11:22 AM EDT Check you INR level on the antibiotic this week. Start taking macrobid for urinary tract infection. Take with food. documented in this encounter [facility] 04-08-2022 History of Present illness Narrative SUBJECTIVE: Michelle Sharpe is a 82 year old female. FECAL OCCULT BLOOD Never done LDL CHOLESTEROL due on 08/23/2019 ADVANCE DIRECTIVE DISCUSSION Never done COVID-19 VACCINE(4 - Booster for Moderna series) due on 12/13/2021 HPI She was seen in urgent care on March 22, 2022 and treated with cephalexin. She notes that symptoms returned when she completed medications. Currently with urgency and frequency. She reports improving then about a week later had recurrence of symptoms. Some trouble initiating stream. Notes prior bladder suspension surgery. Note she is on oral anticoagulation followed by [facility], Portia Downey at home. INR is completed at [facility]. She reports bradycardia, underwent pacemaker at [facility] about [address] Souza Review of Systems Constitutional: Negative. Genitourinary: Positive for dysuria, frequency and urgency. Objective BP 128/84 Pulse 60 Resp 16 Wt 64.4 kg (142 lb) BMI 24.54 kg/m Physical Exam Vitals and nursing note reviewed. Constitutional: Appearance: Normal appearance. HENT: Head: Atraumatic. Eyes: Conjunctiva/sclera: Conjunctivae normal. Cardiovascular: Rate and Rhythm: Normal rate. Pulmonary: Effort: Pulmonary effort is normal. Musculoskeletal: Right lower leg: No edema. Left lower leg: No edema. Skin: General: Skin is dry. Neurological: Mental Status: She is alert. ALLERGIES Allergen Reactions Zyloprim [Allopurin* Rash Environmental [Othe* Intolerance rhinitis Tramadol Other: See Comments made patient woozy/dizzy Medications gabapentin (NEURONTIN) 100 mg capsule omeprazole (PRILOSEC) 20 mg capsule Take 1 capsule by mouth daily before breakfast. 1/2 hr before meal. potassium chloride (K-TAB) 10 mEq tablet Take 1 tablet by mouth once daily. fluticasone-salmeterol (ADVAIR, WIXELA) 250-50 mcg/dose inhaler Inhale 1 Puff as instructed twice daily. albuterol HFA (VENTOLIN HFA) 90 mcg/actuation inhaler Inhale 2 Puffs as instructed every 4 hours as needed for wheezing/shortness of breath. furosemide (LASIX) 20 mg tablet Take 1 tablet by mouth once daily. warfarin (COUMADIN) 2 mg tablet Taking 2mg on Thu & Sun and 1.5mg the other days. warfarin (COUMADIN) 1 mg tablet TAKE 1 TABLET BY MOUTH ON , WEDS, . TAKE 1 & 1/2 TABLETS ON THU, THU, THU, MON lisinopril (ZESTRIL, PRINIVIL) 10 mg tablet Take 1 tablet by mouth once daily. metoprolol succinate ER (TOPROL XL) 50 mg 24 hr tablet Take 1 tablet by mouth once daily. fluticasone (FLONASE) 50 mcg/actuation nasal spray USE 2 SPRAYS IN EACH NOSTRIL ONCE DAILY. RINSE MOUTH AFTER USE. azelastine (ASTELIN,ASTEPRO) 0.1% nasal spray Use 1-2 Sprays in each nostril twice daily as needed. magnesium oxide (MAGOX) 400 mg (241.3 mg magnesium) tablet Take 1 tablet by mouth once daily. OTC ipratropium (ATROVENT) 0.02 % nebulizer solution Use 2.5 mL via nebulizer four times daily as needed for Wheezing/Shortness of Breath. Use over 5-15minutes. therapeutic multivitamin (THERA VITAMIN) tablet Take 1 tablet by mouth daily with breakfast. Cholecalciferol, Vitamin D3, 1,000 unit cap Take 1 capsule by mouth once daily. PAST MEDICAL HISTORY Diagnosis Date Anticoagulant long-term use At risk for stroke Atypical atrial flutter (HCC) Bone metastases (HCC) 03/27/2017 Chronic diastolic heart failure (HCC) Chronic heart failure with preserved ejection fraction (HFpEF) (HCC) Essential hypertension First degree atrioventricular block History of ankle fracture right; no surgery needed as had started to heal by the time had Xray HLD (hyperlipidemia) HOCM (hypertrophic obstructive cardiomyopathy) (HCC) IBS (irritable bowel syndrome) with diarrhea and urgency Impaired fasting glucose 10/06/2008 LBBB (left bundle branch block) ekg 06/27/20 Long Q-T syndrome 01/21/2017 halfway (current) use of 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 Monson follows for benign tumor removed 2002 Social History Tobacco Use Smoking status: Former Smoker Packs/day: 1.00 Years: 58.00 Pack years: 58.00 Types: Cigarettes Start date: 1955 Quit date: 07/02/2005 Years since quittin.7 Smokeless tobacco: Never Used Tobacco comment: No smoking in childhood home. Spouse quit smoking years before patient did. Vaping Use Vaping Use: Never used Substance Use Topics Alcohol use: Yes Comment: occasional Drug use: No ASSESSMENT/PLAN: 1. UTI symptoms - ICD9: 788.99, ICD10: R39.9 (primary diagnosis) - UA DIP, URINE (POC) - URINE CULTURE - NITROFURANTOIN MONOHYDRATE & MACROCRYSTAL 100 MG ORAL CAP 2. S/P placement of cardiac pacemaker - ICD9: V45.01, ICD10: Z95.0 [facility] Sep/Oct visit with MD Jerad Hernandez APRN.COMMERCIAL LOAN ANALYST Medical Decision Making: Problems: Low: Acute, uncomplicated illness or injury Risk: Moderate: Drug management Medical Decision Making Level: 3 - Low documented in this encounter [facility] 03-24-2022 Miscellaneous Notes I did not place a call to patient. Nazia Pateint called stating she missed a call from clinic. She can be reached on her cell: [phone]. Damaris Valiente LPN Patient called and states that Aaliyah Stone PA-C, called her. Patient returning call. Damaris Valiente LPN documented in this encounter [facility] 03-23-2022 Miscellaneous Notes Patient called to advise that the cephalexin is making her stomach upset and her fingertips are tingling, she does not want to take any more of the medication. Rx for Cipro sent to [facility]. Jennifer Cristina APRN.PRODUCT SAFETY ENGINEER documented in this encounter [facility] 03-22-2022 Instructions Jennifer Cristina APRN.PRODUCT SAFETY ENGINEER - 03/22/2022 12:39 PM EDT ASSESSMENT/PLAN: 1. Frequent urination - ICD9: 788.41, ICD10: R35.0 acute - UA positive for ilir esterase, hematuria, proteinuria and nitrates - Send urine for culture - Begin treatment with cephalexin for 7 days - Patient education for prevention given - UA DIP, URINE (POC) - URINE CULTURE - CEPHALEXIN 500 MG CAPSULE - Follow-up with your PCP in 3-5 days if symptoms have not improved or sooner if symptoms worsen - Discussed red flags and need for immediate medical evaluation if any occur. - Discussed supportive care treatment with fluids, rest and analgesia. - Discussed expected course of illness Jennifer Cristina APRN.PRODUCT SAFETY ENGINEER [facility] PATIENT INFO BLADDER INFECTION OVERVIEW Bladder infections are one of the most common infections, causing symptoms of burning with urination and needing to urinate frequently. A bladder infection is a type of urinary tract infection (UTI). Bladder infections are more common is women than men. Most women have an uncomplicated bladder infection that is easily treated with a short course of antibiotics. In men, bladder infections may also affect the prostate gland, and a longer course of treatment may be needed. BLADDER INFECTION CAUSES The urinary tract includes the kidneys (which filter urine), ureters (the tube that carries urine from the kidneys to the bladder), the bladder (which stores urine), and urethra (the tube that carries urine out of the bladder). Bacteria do not normally live in these areas. However, bacteria normally live close to the urethra in women and men who are not circumcised. Bladder infections occur when bacteria travel up the urethra into the bladder. Factors that increase the risk of developing a bladder infection include: Vaginal sex Use of spermicides History of past bladder infections Diabetes In men, not being circumcised or having anal sex increase the risk of bladder infections. BLADDER INFECTION SYMPTOMS The typical symptoms of a bladder infection include: Pain or burning when urinating Frequent need to urinate Urgent need to urinate Blood in the urine Fever, back pain, nausea, or vomiting are not common symptoms of a bladder infection, but can occur in people with a kidney infection (pyelonephritis). If you have these symptoms, you should call your doctor or nurse immediately. Is it a bladder infection or something else? Burning with urination can also occur in people with vaginitis (eg, yeast infection) or urethritis (inflammation of the urethra). For this reason, it is important to call your healthcare provider before assuming you have a bladder infection. BLADDER INFECTION DIAGNOSIS Simple bladder infections are usually diagnosed based upon your symptoms alone. However, most patients, especially those who have bladder infection symptoms for the first time, should see a healthcare provider for urine testing. Urine culture A urine culture is a test that uses a sample of urine to try and grow bacteria in a laboratory. It usually requires about 48 hours to get results. However, a urine culture is not always required to diagnose a bladder infection. Urine culture is often recommended if: You have never had a bladder infection before You have symptoms that are not typical for bladder infection You have had resistant bladder infections before You have frequent bladder infections You do not begin to feel better within 24 to 48 hours after starting antibiotics You are BLADDER INFECTION TREATMENT Bladder infection In young, healthy adolescents and adults with a bladder infection, the usual treatment includes a three to seven day course of antibiotics. The typical drugs chosen are: trimethoprim-sulfamethoxazole (Bactrim ), nitrofurantoin (Macrobid ), ciprofloxacin (Cipro ) or levofloxacin (Levaquin ). In men, the infection may involve your prostate gland and treatment is usually given for at least 7 days. Your symptoms should begin to resolve within one day after starting treatment. It is important to take the full course of antibiotics to completely eliminate the infection. If your symptoms persist for more than two or three days after starting treatment, call your healthcare provider. If needed, you can take a prescription medication that numbs the bladder and urethra (phenazopyridine [Pyridium ]) to reduce the burning pain of some UTIs. A similar medication is available without a prescription (eg, Uristat). Both medications change the color of the urine (usually blue or orange) and can interfere with laboratory testing. You should not take these medications for more than 48 hours due to the risk of side effects. These medications do not treat the infection and must be taken along with an antibiotic. Some providers recommend drinking more fluids while treating bladder infections to help flush bacteria from the bladder. Others believe that drinking more fluids may dilute the antibiotic in the bladder and make the medication less effective. No studies have been performed to address this issue. There are also no good studies on the effectiveness of cranberry juice for treating a bladder infection; we do not recommend using cranberry juice to treat bladder infections. Follow-up care Follow-up testing is not needed in healthy, young men or women with a bladder infection if symptoms resolve. women are usually asked to have a repeat urine culture one to two weeks after treatment has ended to make sure the bacteria are no longer in the urine. RECURRENT BLADDER INFECTIONS Bladder infections versus other causes Some adults, especially women, develop bladder infections frequently. In this case, it is important to confirm that your symptoms (eg, pain or burning, frequency, and urgency) are caused by a bladder infection. Symptoms are usually similar from one infection to another. The best way to confirm an infection is to have a urine culture. If your urine culture is negative for infection, other causes of pain, burning, and frequency should be investigated. There is no reason to take antibiotics if your urine culture is negative. Need for further testing If you continue to develop bladder infections, you may require further testing. If you continue to notice blood in your urine after your bladder infection has cleared, you should have further testing. Preventing recurrent UTIs Women with recurrent urinary tract infections may be advised to take steps to prevent bladder infections, including one or more of the following: Changes in control Women who develop frequent bladder infections and use spermicides, particularly those who also use a diaphragm, may be encouraged to use an alternate method of control. Cranberry products Taking cranberry juice or cranberry tablets has been promoted as one way to help prevent frequent bladder infections. However, this has not been proven. Drinking more fluid and urinating after intercourse Although studies have not proven that drinking more fluids or urinating soon after intercourse can prevent infection, some healthcare providers recommend these measures since they are not harmful. Drinking more fluid may help to wash out bacteria that enter the bladder. Postmenopausal women Postmenopausal women who develop recurrent bladder infections may benefit from using vaginal estrogen. Vaginal estrogen is available in a flexible ring that is worn in the vagina for three months (eg, Estring ), a small tablet (Vagifem ), or a cream (eg, Premarin or Estrace ). Vaginal estrogen is discussed in more detail in a separate topic review. Antibiotics A preventive antibiotic treatment may be recommended if you repeatedly develop bladder infections and have not responded to other preventive measures. Antibiotics are highly effective in preventing recurrent bladder infections and can be taken in several different ways. Preventive antibiotic You can take a low dose of an antibiotic once per day or three times per week for six months to several years. Antibiotics following intercourse In women who develop urinary tract infections after sex, taking a single low dose antibiotic after intercourse can help to prevent bladder infections. Self-treatment A plan to begin antibiotics at the first sign of a bladder infection may be recommended in some situations. Before starting this regimen, it is important that you have had testing (urine cultures) to confirm that your symptoms are caused by a bladder infection; some people have symptoms of a bladder infection but do not actually have an infection. documented in this encounter [facility] 03-22-2022 History of Present illness Narrative Subjective HPI Michelle Sharpe is a 82 year old female who presents with frequent urination for the past 2 days. States she has to run to the bathroom every hour. Denies fever, back pain, abdominal pain or nausea. She has not taken any medication for this problem. Review of Systems Constitutional: Negative for chills and fever. Respiratory: Negative. Cardiovascular: Negative. Gastrointestinal: Negative for abdominal pain, nausea and vomiting. Genitourinary: Positive for urgency. Negative for dysuria, flank pain, frequency and hematuria. Musculoskeletal: Negative for back pain. BP 154/82 Pulse 60 Temp 36.6 C (97.8 F) Resp 16 Wt 64.6 kg (142 lb 6.4 oz) SpO2 98% BMI 24.44 kg/m PAST MEDICAL HISTORY Diagnosis Date Anticoagulant long-term use At risk for stroke Atypical atrial flutter (HCC) Bone metastases (HCC) 03/27/2017 Chronic diastolic heart failure (HCC) Chronic heart failure with preserved ejection fraction (HFpEF) (HCC) Essential hypertension First degree atrioventricular block History of ankle fracture right; no surgery needed as had started to heal by the time had Xray HLD (hyperlipidemia) HOCM (hypertrophic obstructive cardiomyopathy) (HCC) IBS (irritable bowel syndrome) with diarrhea and urgency Impaired fasting glucose 10/06/2008 LBBB (left bundle branch block) ekg 06/27/20 Long Q-T syndrome 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 Monson follows for benign tumor removed 2002 PAST SURGICAL HISTORY Procedure Laterality Date BLADDER SURGERY HX 2004 tumor removed from bladder CARDIOVERSION ELECTIVE ARRHYTHMIA INTERNAL SPX 04/2019 CARDIOVERSION ELECTIVE ARRHYTHMIA INTERNAL SPX 04/24/2020 [facility] CARDIOVERSION ELECTIVE ARRHYTHMIA INTERNAL SPX 05/2017 CARDIOVERSION ELECTIVE ARRHYTHMIA INTERNAL SPX 10/2017 CARDIOVERSION ELECTIVE ARRHYTHMIA INTERNAL SPX 10/2018 HEART VALVE REPAIR 07/2018 SEPTAL MYECTOMY AND MVP WITH ANNULOPLASTY WITH A #33 RM BAND, B/L PULMONARY VEIN ISOLATION WITH MULTIPLE OCCASIONA SOF THE ARTICURE RADIOFREQUENCY CLAMP AND CLIPPING OF THE LEFT ATRIAL APPENDAGE WITH A 50MM ARTICURE CLIP VENTRICULOMYOTOMY-MYECTOMY 07/2018 septal myectomy for HCM; [facility], Dr. Jo ALLERGIES Zyloprim [Allopurinol], Environmental [Other], and Tramadol MEDICATIONS gabapentin (NEURONTIN) 100 mg capsule omeprazole (PRILOSEC) 20 mg capsule Take 1 capsule by mouth daily before breakfast. 1/2 hr before meal. potassium chloride (K-TAB) 10 mEq tablet Take 1 tablet by mouth once daily. fluticasone-salmeterol (ADVAIR, WIXELA) 250-50 mcg/dose inhaler Inhale 1 Puff as instructed twice daily. albuterol HFA (VENTOLIN HFA) 90 mcg/actuation inhaler Inhale 2 Puffs as instructed every 4 hours as needed for wheezing/shortness of breath. furosemide (LASIX) 20 mg tablet Take 1 tablet by mouth once daily. warfarin (COUMADIN) 2 mg tablet Taking 2mg on Thu & Thu and 1.5mg the other days. warfarin (COUMADIN) 1 mg tablet TAKE 1 TABLET BY MOUTH ON , THUS, . TAKE 1 & 1/2 TABLETS ON THU, THU, THU, MON lisinopril (ZESTRIL, PRINIVIL) 10 mg tablet Take 1 tablet by mouth once daily. metoprolol succinate ER (TOPROL XL) 50 mg 24 hr tablet Take 1 tablet by mouth once daily. fluticasone (FLONASE) 50 mcg/actuation nasal spray USE 2 SPRAYS IN EACH NOSTRIL ONCE DAILY. RINSE MOUTH AFTER USE. azelastine (ASTELIN,ASTEPRO) 0.1% nasal spray Use 1-2 Sprays in each nostril twice daily as needed. magnesium oxide (MAGOX) 400 mg (241.3 mg magnesium) tablet Take 1 tablet by mouth once daily. OTC therapeutic multivitamin (THERA VITAMIN) tablet Take 1 tablet by mouth daily with breakfast. Cholecalciferol, Vitamin D3, 1,000 unit cap Take 1 capsule by mouth once daily. ipratropium (ATROVENT) 0.02 % nebulizer solution Use 2.5 mL via nebulizer four times daily as needed for Wheezing/Shortness of Breath. Use over 5-15minutes. FAMILY HISTORY Problem Relation Age of Onset Hypertension Father other (allergic reaction) Father from allergic reaction Stroke Mother other (Myocardial infarction) Paternal Grandmother 80 Social History Tobacco Use Smoking status: Former Smoker Packs/day: 1.00 Years: 58.00 Pack years: 58.00 Types: Cigarettes Start date: 1956 Quit date: 07/02/2005 Years since quittin.7 Smokeless tobacco: Never Used Tobacco comment: No smoking in childhood home. Spouse quit smoking years before patient did. Vaping Use Vaping Use: Never used Substance Use Topics Alcohol use: Yes Comment: occasional Drug use: No Objective Physical Exam Vitals and nursing note reviewed. Constitutional: Appearance: Normal appearance. Cardiovascular: Rate and Rhythm: Normal rate and regular rhythm. Pulmonary: Effort: Pulmonary effort is normal. No respiratory distress. Breath sounds: Normal breath sounds. No wheezing or rales. Abdominal: General: There is no distension. Palpations: Abdomen is soft. There is no mass. Tenderness: There is no abdominal tenderness. There is no right CVA tenderness, left CVA tenderness or guarding. Skin: General: Skin is warm and dry. Neurological: Mental Status: She is alert. ASSESSMENT/PLAN: 1. Frequent urination - ICD9: 788.41, ICD10: R35.0 acute - UA positive for ilir esterase, hematuria, proteinuria and nitrates - Send urine for culture - Begin treatment with cephalexin for 7 days - Patient education for prevention given - UA DIP, URINE (POC) - URINE CULTURE - CEPHALEXIN 500 MG CAPSULE - Follow-up with your PCP in 3-5 days if symptoms have not improved or sooner if symptoms worsen - Discussed red flags and need for immediate medical evaluation if any occur. - Discussed supportive care treatment with fluids, rest and analgesia. - Discussed expected course of illness Jennifer Cristina APRN.PRODUCT SAFETY ENGINEER documented in this encounter [facility] 02-09-2022 History of Present illness Narrative Patient presents with: Diverticulitis: flare up started yesterday Left side HPI: Left abdominal pain: Duration: Started last night Location: LLQ Character: Intermittent sharp pains, feels identical to prior diverticulitis episodes. Radiation: No. Aggravating: Relieving: Moving bowels Pain relievers: Gas medicine, pepcid BM: Feeling need to move bowels frequently last night, had small diarrhea, no blood in stool, occasional constipation recently Associated: Pertinent negatives: Denies fever, nausea, vomiting. Hx of sigmoid diverticulitis on CT 11/26/20. Treated here for diverticulitis based on symptoms and exam 01/2021 and 11/2021. Had colonoscopy with polypectomy while admitted for GI bleed April 2021. PAST MEDICAL HISTORY Diagnosis Date Anticoagulant long-term use At risk for stroke Atypical atrial flutter (HCC) Bone metastases (HCC) 03/27/2017 Chronic diastolic heart failure (HCC) Chronic heart failure with preserved ejection fraction (HFpEF) (HCC) Essential hypertension First degree atrioventricular block History of ankle fracture right; no surgery needed as had started to heal by the time had Xray HLD (hyperlipidemia) HOCM (hypertrophic obstructive cardiomyopathy) (HCC) IBS (irritable bowel syndrome) with diarrhea and urgency Impaired fasting glucose 10/06/2008 LBBB (left bundle branch block) ekg 06/27/20 Long Q-T syndrome 01/21/2017 halfway (current) use of 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 Monson follows for benign tumor removed 2002 PAST SURGICAL HISTORY Procedure Laterality Date BLADDER SURGERY HX 2004 tumor removed from bladder CARDIOVERSION ELECTIVE ARRHYTHMIA INTERNAL SPX 04/2019 CARDIOVERSION ELECTIVE ARRHYTHMIA INTERNAL SPX 04/24/2020 [facility] CARDIOVERSION ELECTIVE ARRHYTHMIA INTERNAL SPX 05/2017 CARDIOVERSION ELECTIVE ARRHYTHMIA INTERNAL SPX 10/2017 CARDIOVERSION ELECTIVE ARRHYTHMIA INTERNAL SPX 10/2018 HEART VALVE REPAIR 07/2018 SEPTAL MYECTOMY AND MVP WITH ANNULOPLASTY WITH A #33 RM BAND, B/L PULMONARY VEIN ISOLATION WITH MULTIPLE OCCASIONA SOF THE ARTICURE RADIOFREQUENCY CLAMP AND CLIPPING OF THE LEFT ATRIAL APPENDAGE WITH A 50MM ARTICURE CLIP VENTRICULOMYOTOMY-MYECTOMY 07/2018 septal myectomy for HCM; [facility], Dr. Jo MEDICATIONS: gabapentin (NEURONTIN) 100 mg capsule omeprazole (PRILOSEC) 20 mg capsule Take 1 capsule by mouth daily before breakfast. 1/2 hr before meal. potassium chloride (K-TAB) 10 mEq tablet Take 1 tablet by mouth once daily. fluticasone-salmeterol (ADVAIR, WIXELA) 250-50 mcg/dose inhaler Inhale 1 Puff as instructed twice daily. albuterol HFA (VENTOLIN HFA) 90 mcg/actuation inhaler Inhale 2 Puffs as instructed every 4 hours as needed for wheezing/shortness of breath. furosemide (LASIX) 20 mg tablet Take 1 tablet by mouth once daily. warfarin (COUMADIN) 2 mg tablet Taking 2mg on Thu & Thu and 1.5mg the other days. warfarin (COUMADIN) 1 mg tablet TAKE 1 TABLET BY MOUTH ON , , . TAKE 1 & 1/2 TABLETS ON THU, THU, SUN, MON lisinopril (ZESTRIL, PRINIVIL) 10 mg tablet Take 1 tablet by mouth once daily. metoprolol succinate ER (TOPROL XL) 50 mg 24 hr tablet Take 1 tablet by mouth once daily. fluticasone (FLONASE) 50 mcg/actuation nasal spray USE 2 SPRAYS IN EACH NOSTRIL ONCE DAILY. RINSE MOUTH AFTER USE. azelastine (ASTELIN,ASTEPRO) 0.1% nasal spray Use 1-2 Sprays in each nostril twice daily as needed. magnesium oxide (MAGOX) 400 mg (241.3 mg magnesium) tablet Take 1 tablet by mouth once daily. OTC ipratropium (ATROVENT) 0.02 % nebulizer solution Use 2.5 mL via nebulizer four times daily as needed for Wheezing/Shortness of Breath. Use over 5-15minutes. therapeutic multivitamin (THERA VITAMIN) tablet Take 1 tablet by mouth daily with breakfast. Cholecalciferol, Vitamin D3, 1,000 unit cap Take 1 capsule by mouth once daily. ALLERGIES: ALLERGIES Allergen Reactions Zyloprim [Allopurin* Rash Environmental [Othe* Intolerance rhinitis Tramadol Other: See Comments made patient woozy/dizzy VITALS: BP 132/92 Pulse 96 Temp 36.2 C (97.1 F) Resp 18 Wt 66.2 kg (146 lb) SpO2 90% BMI 25.06 kg/m PHYSICAL EXAM: GEN: pleasant, no acute distress, alert HEENT: PERRL, EOMI, NECK: supple, HEART: regular rate, regular rhythm, no murmurs LUNGS: clear to auscultation, no wheezes or crackles, no increased WOB ABD: soft, non-distended, no masses palpated, tender LLQ > left lateral ASSESSMENT/PLAN: 1. Left lower quadrant abdominal pain - ICD9: 789.04, ICD10: R10.32 (primary diagnosis) 2. History of diverticulitis - ICD9: V12.70, ICD10: Z87.19 OK to treat diverticulitis presumptively with report of symptoms very similar to prior diverticulitis proven by CT. - AMOXICILLIN 875 MG-POTASSIUM CLAVULANATE 125 MG TABLET Follow up in the ER with increasing pain, fever, lethargy, or blood in stool. Daniel Mcclelland MD documented in this encounter [facility] 01-07-2022 History of Present illness Narrative This note was created using Service[employer]. Subjective Michelle Sharpe is a 81 year old female. Patient presents with: Follow Up SUBJECTIVE: Michelle Sharpe is a 81 year old year old lady here today for 4 month follow up appointment for review of medical conditions. Doing well after pacer placed. HR was down to 35 or so. Was high without med. HR around 60s with pacer. Takes PPI routinely. Seeing Dr. Rodríguez for back pain with leg pain. Given injections--back pain just a little better but does not last long so plans to get ablation done--will discus on . Given gabapentin--helps pretty good. Already checked legs for blood clots and circulation. Gets labs through cardiology. PAST MEDICAL HISTORY Diagnosis Date Anticoagulant long-term use At risk for stroke Atypical atrial flutter (HCC) Bone metastases (HCC) 03/27/2017 Chronic diastolic heart failure (HCC) Chronic heart failure with preserved ejection fraction (HFpEF) (HCC) Essential hypertension First degree atrioventricular block History of ankle fracture right; no surgery needed as had started to heal by the time had Xray HLD (hyperlipidemia) HOCM (hypertrophic obstructive cardiomyopathy) (HCC) IBS (irritable bowel syndrome) with diarrhea and urgency Impaired fasting glucose 10/06/2008 LBBB (left bundle branch block) ekg 06/27/20 Long Q-T syndrome 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 Monson follows for benign tumor removed 2002 Current Outpatient Medications Medication Sig gabapentin (NEURONTIN) 100 mg capsule omeprazole (PRILOSEC) 20 mg capsule Take 1 capsule by mouth daily before breakfast. 1/2 hr before meal. potassium chloride (K-TAB) 10 mEq tablet Take 1 tablet by mouth once daily. fluticasone-salmeterol (ADVAIR, WIXELA) 250-50 mcg/dose inhaler Inhale 1 Puff as instructed twice daily. albuterol HFA (VENTOLIN HFA) 90 mcg/actuation inhaler Inhale 2 Puffs as instructed every 4 hours as needed for wheezing/shortness of breath. furosemide (LASIX) 20 mg tablet Take 1 tablet by mouth once daily. (Patient taking differently: Take 20 mg by mouth once daily as needed. Taking usually twice a week ) warfarin (COUMADIN) 2 mg tablet Taking 2mg on Thu & Thu and 1.5mg the other days. warfarin (COUMADIN) 1 mg tablet TAKE 1 TABLET BY MOUTH ON , , . TAKE 1 & 1/2 TABLETS ON THU, THU, SUN, MON lisinopril (ZESTRIL, PRINIVIL) 10 mg tablet Take 1 tablet by mouth once daily. metoprolol succinate ER (TOPROL XL) 50 mg 24 hr tablet Take 1 tablet by mouth once daily. fluticasone (FLONASE) 50 mcg/actuation nasal spray USE 2 SPRAYS IN EACH NOSTRIL ONCE DAILY. RINSE MOUTH AFTER USE. azelastine (ASTELIN,ASTEPRO) 0.1% nasal spray Use 1-2 Sprays in each nostril twice daily as needed. magnesium oxide (MAGOX) 400 mg (241.3 mg magnesium) tablet Take 1 tablet by mouth once daily. OTC ipratropium (ATROVENT) 0.02 % nebulizer solution Use 2.5 mL via nebulizer four times daily as needed for Wheezing/Shortness of Breath. Use over 5-15minutes. therapeutic multivitamin (THERA VITAMIN) tablet Take 1 tablet by mouth daily with breakfast. Cholecalciferol, Vitamin D3, 1,000 unit cap Take 1 capsule by mouth once daily. No current facility-administered medications for this visit. Review of Systems Objective BP 142/80 Pulse 64 Wt 66.2 kg (146 lb) BMI 25.06 kg/m Last 5 Encounter BP Readings: Date: BP: 01/07/2022 142/80 12/03/2021 130/72 12/01/2021 132/68 09/23/2021 122/79 09/02/2021 148/82 Last 5 Encounter Wt Readings: Date: Wt: 01/07/2022 66.2 kg (146 lb) 12/03/2021 66.7 kg (147 lb) 12/01/2021 67.8 kg (149 lb 6.4 oz) 09/23/2021 66.9 kg (147 lb 8 oz) 09/02/2021 67.2 kg (148 lb 3.2 oz) Physical Exam Constitutional: Appearance: Normal appearance. HENT: Head: Normocephalic. Eyes: Conjunctiva/sclera: Conjunctivae normal. Cardiovascular: Rate and Rhythm: Normal rate and regular rhythm. Heart sounds: Normal heart sounds. Pulmonary: Effort: Pulmonary effort is normal. Breath sounds: Normal breath sounds. Skin: General: Skin is warm and dry. Neurological: General: No focal deficit present. Mental Status: She is alert and oriented to person, place, and time. Psychiatric: Mood and Affect: Mood normal. Behavior: Behavior normal. Thought Content: Thought content normal. Judgment: Judgment normal. Assessment and Plan Encounter Diagnosis ICD-10-CM 1. Gastroesophageal reflux disease, unspecified whether esophagitis present K21.9 omeprazole (PRILOSEC) 20 mg capsule 2. S/P placement of cardiac pacemaker Z95.0 3. Essential hypertension I10 LIPID PANEL, NONFASTING 4. Chronic heart failure with preserved ejection fraction (HFpEF) ([facility]) I50.32 potassium chloride (K-TAB) 10 mEq tablet 5. Vitamin D deficiency E55.9 VITAMIN D 25 HYDROXY 6. Chronic obstructive pulmonary disease, unspecified COPD type ([facility]) J44.9 7. Anticoagulant long-term use Z79.01 8. Chronic right-sided low back pain with right-sided sciatica M54.41 gabapentin (NEURONTIN) 100 mg capsule G89.29 ASSESSMENT/PLAN: ASSESSMENT/PLAN: 1. Essential hypertension - ICD9: 401.9, ICD10: I10 (primary diagnosis) - fair control - Recommended regular aerobic exercise. - Recommend home blood pressure monitoring, to bring results in on next visit - Goal of BP <130/80 - LIPID PANEL, NONFASTING 2. Gastroesophageal reflux disease, unspecified whether esophagitis present - ICD9: 530.81, ICD10: K21.9 Continue present management. - OMEPRAZOLE 20 MG CAPSULE,DELAYED RELEASE 3. S/P placement of cardiac pacemaker - ICD9: V45.01, ICD10: Z95.0 Doing well. Continue following up with elementary special education teacher. 4. Chronic heart failure with preserved ejection fraction (HFpEF) (HCC) - ICD9: 428.9, ICD10: I50.32 Clincally stable. Continue present management. - POTASSIUM CHLORIDE ER 10 MEQ TABLET,EXTENDED RELEASE 5. Vitamin D deficiency - ICD9: 268.9, ICD10: E55.9 Further evaluation and treatment as indicated. - VITAMIN D 25 HYDROXY 6. Chronic obstructive pulmonary disease, unspecified COPD type (HCC) - ICD9: 496, ICD10: J44.9 Stable on current meds. 7. Anticoagulant long-term use - ICD9: V58.61, ICD10: Z79.01 Continue present management. 8. Chronic right-sided low back pain with right-sided sciatica - ICD9: 724.2, 724.3, 338.29, ICD10: M54.41, G89.29 Stable with control of pain with gabapentin. At this time benefits outweigh risks. Continue to monitor for adverse effects and indications for decreasing dose or tapering off. No signs of diversion or abuse of medication(s); no adverse effects. Continue present management. - GABAPENTIN 100 MG CAPSULE Alisia Pacheco MD documented in this encounter [facility] documented as of this encounter (statuses as of 10/22/2023) [facility] History of Past illness Narrative* Problem Noted Date Resolved Date Hypervolemia 08/01/2018 08/03/2018 Overview: A/p Edema noted on exam and CXR. Begin diuresis and monitor closely RADHA (acute kidney injury) 08/01/20182017 Overview: History: Post-operative. Assessment: BUN/Cr normalizing Plan: Avoid hypotension. Renally dose medications Cardiac insufficiency 07/30/2018 07/31/2018 Overview: A/p Cardiac insuffiencey requiring epi, titrate for UO & monitor CVP On mechanically assisted ventilation 07/30/2018 07/31/2018 Overview: Grade 1 Airway A/p WTE Postoperative pain 07/30/2018 08/03/2018 Overview: A/p Controlled with WELD TECHNICIAN fentanyl, scheduled lidoderm patches and tyenol, prn oxycodone Stress hyperglycemia 07/30/2018 08/05/2018 Overview: Continue SS. Hypovolemia/fluctuating lacic acidosis 8 08/02/2018 Overview: A/p albumin given x1 Discharge planning issues 07/29/20182020 Overview: Discharge to SNF 08.06.2018. Lives in [facility], alone but has supportive family. PT/OT/RT recommend SNF. Appointments requested with [employer] and Cards. Preop testing 07/29/2018 08/03/2018 Overview[facility] Surgeon: Jamie Jo M.D. Informed Consent Completed: yes STS Score: N/A CAD: No Is intended procedure a CABG: No - is a beta jhon ordered? Previously prescribed H & P completed: Yes PA/LAT: Completed CT: Completed MRI: N/A LE US: N/A Cath: Yes (outside images on syngo)- reviewed: No Echo:Completed EKG: Completed EF %: 65 PI's: N/A Carotid: N/A Mapping: N/A Dental: Completed (edentulous) PFT's: Completed Recent Labs 07/29/18 0746 WBC 8.47 HB 12.8 HCT 41.4 PLT 294 INR 1.1 CREAT 1.33* UA: results pending HCG:N/A ABO/ABO Confirmed: Yes Blood ordered: No SA Swab: Yes - results: Pending Last Dose of Anticoagulation: Last dose of Coumadin on 07/24 Op Note: N/A Pacemaker Check: N/A Implants: no Consults: 07/15 - Pulmonary -Aaliyah Stone PA-C RE: COPD Continue current maintenance Rx at this time. Will re-assess after cardiac surgery. Based on oximetry today, you do not require supplemental oxygen with rest or exertion. Will obtain nocturnal oxygen from [employer]. Continue rescue inhaler as needed for relief of shortness of breath or wheezing, up to 4 times daily. Re-assess in 3 months, sooner if needed. 06/14/18: Hematology - Maria Isabel Tay MD RE: Small cell Lymphoma (in remission) - Continued observation and repeat CT chest abdomen pelvis in 3 months - proceed with valvular heart surgery and follow with cardiology. - Continue Coumadin. - repeat CBC, CMP, LDH, immunofixation & OV in 3 months. DM: No Cardiac Surgical prep: DR. JO AWARE OF ELEVATED CREATININE SIGNATURE: Bell Johnson APRN.PRODUCT SAFETY ENGINEER CHECKED BY: LEE ANN DATE of SERVICE: 07/29/2018 TIME of SERVICE: 8:22 AM Encounter for preoperative a nesthesiology assessment for cardiac surgery 07/29/2018 08/29/2021 Small B-cell lymphoma of extranodal site 018 08/29/2021 Overview: Added automatically from request for surgery [id number] Bone metastasis 10/13/2017 08/29/2021 Overview: Added automatically from request for surgery [id number] Hypoxemia 05/20/2017 08/03/2018 Overview: Requiring HF O2 after extubation A/p Begin diuresis and oob to chair, wean O2 as able. 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 Lopez follows for benign tumor removed 2002 Closed fracture of lateral malleolus 11/25/2005 09/05/2008 IBS (irritable bowel syndrome) 1 Overview: with diarrhea and urgency Chronic heart failure with p reserved ejection fraction (HFpEF) 08/29/2021 Persistent atrial fibrillation 1 documented as of this encounter (statuses as of 02/09/2022) [facility] History of Past illness Narrative* Problem Noted Date Resolved Date Hypervolemia 08/01/2018 08/03/2018 Overview: A/p Edema noted on exam and CXR. Begin diuresis and monitor closely RADHA (acute kidney injury) 08/01/20182017 Overview: History: Post-operative. Assessment: BUN/Cr normalizing Plan: Avoid hypotension. Renally dose medications Cardiac insufficiency 07/30/2018 07/31/2018 Overview: A/p Cardiac insuffiencey requiring epi, titrate for UO & monitor CVP On mechanically assisted ventilation 07/30/2018 07/31/2018 Overview: Grade 1 Airway A/p WTE Postoperative pain 07/30/2018 08/03/2018 Overview: A/p Controlled with WELD TECHNICIAN fentanyl, scheduled lidoderm patches and tyenol, prn oxycodone Stress hyperglycemia 07/30/2018 08/05/2018 Overview: Continue SS. Hypovolemia/fluctuating lacic acidosis 8 08/02/2018 Overview: A/p albumin given x1 Discharge planning issues 07/29/20182020 Overview: Discharge to SNF 08.06.2018. Lives in [facility], alone but has supportive family. PT/OT/RT recommend SNF. Appointments requested with [employer] and Cards. Preop testing 07/29/2018 08/03/2018 Overview: [facility] PRE[facility] Surgeon: Jamie Jo M.D. Informed Consent Completed: yes STS Score: N/A CAD: No Is intended procedure a CABG: No - is a beta jhon ordered? Previously prescribed H & P completed: Yes PA/LAT: Completed CT: Completed MRI: N/A LE US: N/A Cath: Yes (outside images on syngo)- reviewed: No Echo:Completed EKG: Completed EF %: 65 PI's: N/A Carotid: N/A Mapping: N/A Dental: Completed (edentulous) PFT's: Completed Recent Labs 07/29/18 0746 WBC 8.47 HB 12.8 HCT 41.4 PLT 294 INR 1.1 CREAT 1.33* UA: results pending HCG:N/A ABO/ABO Confirmed: Yes Blood ordered: No SA Swab: Yes - results: Pending Last Dose of Anticoagulation: Last dose of Coumadin on 07/24 Op Note: N/A Pacemaker Check: N/A Implants: no Consults: 07/15 - Pulmonary -Aaliyah Stone PA-C RE: COPD Continue current maintenance Rx at this time. Will re-assess after cardiac surgery. Based on oximetry today, you do not require supplemental oxygen with rest or exertion. Will obtain nocturnal oxygen from [employer]. Continue rescue inhaler as needed for relief of shortness of breath or wheezing, up to 4 times daily. Re-assess in 3 months, sooner if needed. 06/14/18: Hematology - Maria Isabel Tay MD RE: Small cell Lymphoma (in remission) - Continued observation and repeat CT chest abdomen pelvis in 3 months - proceed with valvular heart surgery and follow with cardiology. - Continue Coumadin. - repeat CBC, CMP, LDH, immunofixation & OV in 3 months. DM: No Cardiac Surgical prep: DR. JO AWARE OF ELEVATED CREATININE SIGNATURE: Bell Johnson APRN.PRODUCT SAFETY ENGINEER CHECKED BY: LEE ANN DATE of SERVICE: 07/29/2018 TIME of SERVICE: 8:22 AM Encounter for preoperative a nesthesiology assessment for cardiac surgery 07/29/2018 08/29/2021 Small B-cell lymphoma of extranodal site 018 08/29/2021 Overview: Added automatically from request for surgery [id number] Bone metastasis 10/13/2017 08/29/2021 Overview: Added automatically from request for surgery [id number] Hypoxemia 05/20/2017 08/03/2018 Overview: Requiring HF O2 after extubation A/p Begin diuresis and oob to chair, wean O2 as able. 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 Lopez follows for benign tumor removed 2002 Closed fracture of lateral malleolus 11/25/2005 09/05/2008 IBS (irritable bowel syndrome) 1 Overview: with diarrhea and urgency Chronic heart failure with p reserved ejection fraction (HFpEF) 08/29/2021 Persistent atrial fibrillation 1 documented as of this encounter (statuses as of 03/22/2022) [facility] History of Past illness Narrative* Problem Noted Date Resolved Date Hypervolemia 08/01/2018 08/03/2018 Overview: A/p Edema noted on exam and CXR. Begin diuresis and monitor closely RADHA (acute kidney injury) 08/01/20182017 Overview: History: Post-operative. Assessment: BUN/Cr normalizing Plan: Avoid hypotension. Renally dose medications Cardiac insufficiency 07/30/2018 07/31/2018 Overview: A/p Cardiac insuffiencey requiring epi, titrate for UO & monitor CVP On mechanically assisted ventilation 07/30/2018 07/31/2018 Overview: Grade 1 Airway A/p WTE Postoperative pain 07/30/2018 08/03/2018 Overview: A/p Controlled with WELD TECHNICIAN fentanyl, scheduled lidoderm patches and tyenol, prn oxycodone Stress hyperglycemia 07/30/2018 08/05/2018 Overview: Continue SS. Hypovolemia/fluctuating lacic acidosis 8 08/02/2018 Overview: A/p albumin given x1 Discharge planning issues 07/29/20182020 Overview: Discharge to SNF 08.06.2018. Lives in [facility], alone but has supportive family. PT/OT/RT recommend SNF. Appointments requested with [employer] and Cards. Preop testing 07/29/2018 08/03/2018 Overview[facility] Surgeon: Jamie Jo M.D. Informed Consent Completed: yes STS Score: N/A CAD: No Is intended procedure a CABG: No - is a beta jhon ordered? Previously prescribed H & P completed: Yes PA/LAT: Completed CT: Completed MRI: N/A LE US: N/A Cath: Yes (outside images on syngo)- reviewed: No Echo:Completed EKG: Completed EF %: 65 PI's: N/A Carotid: N/A Mapping: N/A Dental: Completed (edentulous) PFT's: Completed Recent Labs 07/29/18 0746 WBC 8.47 HB 12.8 HCT 41.4 PLT 294 INR 1.1 CREAT 1.33* UA: results pending HCG:N/A ABO/ABO Confirmed: Yes Blood ordered: No SA Swab: Yes - results: Pending Last Dose of Anticoagulation: Last dose of Coumadin on 07/24 Op Note: N/A Pacemaker Check: N/A Implants: no Consults: 07/15 - Pulmonary -Aaliyah Stone PA-C RE: COPD Continue current maintenance Rx at this time. Will re-assess after cardiac surgery. Based on oximetry today, you do not require supplemental oxygen with rest or exertion. Will obtain nocturnal oxygen from [employer]. Continue rescue inhaler as needed for relief of shortness of breath or wheezing, up to 4 times daily. Re-assess in 3 months, sooner if needed. 06/14/18: Hematology - Maria Isabel Tay MD RE: Small cell Lymphoma (in remission) - Continued observation and repeat CT chest abdomen pelvis in 3 months - proceed with valvular heart surgery and follow with cardiology. - Continue Coumadin. - repeat CBC, CMP, LDH, immunofixation & OV in 3 months. DM: No Cardiac Surgical prep: DR. JO AWARE OF ELEVATED CREATININE SIGNATURE: Bell Johnson APRN.PRODUCT SAFETY ENGINEER CHECKED BY: LEE ANN DATE of SERVICE: 07/29/2018 TIME of SERVICE: 8:22 AM Encounter for preoperative a nesthesiology assessment for cardiac surgery 07/29/2018 08/29/2021 Small B-cell lymphoma of extranodal site 018 08/29/2021 Overview: Added automatically from request for surgery [id number] Bone metastasis 10/13/2017 08/29/2021 Overview: Added automatically from request for surgery [id number] Hypoxemia 05/20/2017 08/03/2018 Overview: Requiring HF O2 after extubation A/p Begin diuresis and oob to chair, wean O2 as able. 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 Lopez follows for benign tumor removed 2002 Closed fracture of lateral malleolus 11/25/2005 09/05/2008 IBS (irritable bowel syndrome) 1 Overview: with diarrhea and urgency Chronic heart failure with p reserved ejection fraction (HFpEF) 08/29/2021 Persistent atrial fibrillation 1 documented as of this encounter (statuses as of 03/23/2022) [facility]09-30-2018 History of Past illness Narrative* Problem Noted Date Resolved Date Hypervolemia 08/01/2018 08/03/2018 Overview: A/p Edema noted on exam and CXR. Begin diuresis and monitor closely RADHA (acute kidney injury) 08/01/20182017 Overview: History: Post-operative. Assessment: BUN/Cr normalizing Plan: Avoid hypotension. Renally dose medications Cardiac insufficiency 07/30/2018 07/31/2018 Overview: A/p Cardiac insuffiencey requiring epi, titrate for UO & monitor CVP On mechanically assisted ventilation 07/30/2018 07/31/2018 Overview: Grade 1 Airway A/p WTE Postoperative pain 07/30/2018 08/03/2018 Overview: A/p Controlled with WELD TECHNICIAN fentanyl, scheduled lidoderm patches and tyenol, prn oxycodone Stress hyperglycemia 07/30/2018 08/05/2018 Overview: Continue SS. Hypovolemia/fluctuating lacic acidosis 8 08/02/2018 Overview: A/p albumin given x1 Discharge planning issues 07/29/20182020 Overview: Discharge to SNF 08.06.2018. Lives in [facility], alone but has supportive family. PT/OT/RT recommend SNF. Appointments requested with [employer] and Cards. Preop testing 07/29/2018 08/03/2018 Overview: [facility] Surgeon: Jamie Jo M.D. Informed Consent Completed: yes STS Score: N/A CAD: No Is intended procedure a CABG: No - is a beta jhon ordered? Previously prescribed H & P completed: Yes PA/LAT: Completed CT: Completed MRI: N/A LE US: N/A Cath: Yes (outside images on syngo)- reviewed: No Echo:Completed EKG: Completed EF %: 65 PI's: N/A Carotid: N/A Mapping: N/A Dental: Completed (edentulous) PFT's: Completed Recent Labs 07/29/18 0746 WBC 8.47 HB 12.8 HCT 41.4 PLT 294 INR 1.1 CREAT 1.33* UA: results pending HCG:N/A ABO/ABO Confirmed: Yes Blood ordered: No SA Swab: Yes - results: Pending Last Dose of Anticoagulation: Last dose of Coumadin on 07/24 Op Note: N/A Pacemaker Check: N/A Implants: no Consults: 07/15 - Pulmonary -Aaliyah Stone PA-C RE: COPD Continue current maintenance Rx at this time. Will re-assess after cardiac surgery. Based on oximetry today, you do not require supplemental oxygen with rest or exertion. Will obtain nocturnal oxygen from [employer]. Continue rescue inhaler as needed for relief of shortness of breath or wheezing, up to 4 times daily. Re-assess in 3 months, sooner if needed. 06/14/18: Hematology - Maria Isabel Tay MD RE: Small cell Lymphoma (in remission) - Continued observation and repeat CT chest abdomen pelvis in 3 months - proceed with valvular heart surgery and follow with cardiology. - Continue Coumadin. - repeat CBC, CMP, LDH, immunofixation & OV in 3 months. DM: No Cardiac Surgical prep: DR. JO AWARE OF ELEVATED CREATININE SIGNATURE: Bell Johnson APRN.PRODUCT SAFETY ENGINEER CHECKED BY: LEE ANN DATE of SERVICE: 07/29/2018 TIME of SERVICE: 8:22 AM Encounter for preoperative a nesthesiology assessment for cardiac surgery 07/29/2018 08/29/2021 Small B-cell lymphoma of extranodal site 018 08/29/2021 Overview: Added automatically from request for surgery [id number] Bone metastasis 10/13/2017 08/29/2021 Overview: Added automatically from request for surgery [id number] Hypoxemia 05/20/2017 08/03/2018 Overview: Requiring HF O2 after extubation A/p Begin diuresis and oob to chair, wean O2 as able. 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 Lopez follows for benign tumor removed 2002 Closed fracture of lateral malleolus 11/25/2005 09/05/2008 IBS (irritable bowel syndrome) 1 Overview: with diarrhea and urgency Chronic heart failure with p reserved ejection fraction (HFpEF) 08/29/2021 Persistent atrial fibrillation 1 documented as of this encounter (statuses as of 03/24/2022) [facility]09-30-2018 History of Past illness Narrative* Problem Noted Date Resolved Date Hypervolemia 08/01/2018 08/03/2018 Overview: A/p Edema noted on exam and CXR. Begin diuresis and monitor closely RADHA (acute kidney injury) 08/01/20182017 Overview: History: Post-operative. Assessment: BUN/Cr normalizing Plan: Avoid hypotension. Renally dose medications Cardiac insufficiency 07/30/2018 07/31/2018 Overview: A/p Cardiac insuffiencey requiring epi, titrate for UO & monitor CVP On mechanically assisted ventilation 07/30/2018 07/31/2018 Overview: Grade 1 Airway A/p WTE Postoperative pain 07/30/2018 08/03/2018 Overview: A/p Controlled with WELD TECHNICIAN fentanyl, scheduled lidoderm patches and tyenol, prn oxycodone Stress hyperglycemia 07/30/2018 08/05/2018 Overview: Continue SS. Hypovolemia/fluctuating lacic acidosis 8 08/02/2018 Overview: A/p albumin given x1 Discharge planning issues 07/29/20182020 Overview: Discharge to SNF 08.06.2018. Lives in [facility], alone but has supportive family. PT/OT/RT recommend SNF. Appointments requested with [employer] and Cards. Preop testing 07/29/2018 08/03/2018 Overview: [facility] Surgeon: Jamie Jo M.D. Informed Consent Completed: yes STS Score: N/A CAD: No Is intended procedure a CABG: No - is a beta jhon ordered? Previously prescribed H & P completed: Yes PA/LAT: Completed CT: Completed MRI: N/A LE US: N/A Cath: Yes (outside images on syngo)- reviewed: No Echo:Completed EKG: Completed EF %: 65 PI's: N/A Carotid: N/A Mapping: N/A Dental: Completed (edentulous) PFT's: Completed Recent Labs 07/29/18 0746 WBC 8.47 HB 12.8 HCT 41.4 PLT 294 INR 1.1 CREAT 1.33* UA: results pending HCG:N/A ABO/ABO Confirmed: Yes Blood ordered: No SA Swab: Yes - results: Pending Last Dose of Anticoagulation: Last dose of Coumadin on 07/24 Op Note: N/A Pacemaker Check: N/A Implants: no Consults: 07/15 - Pulmonary -Aaliyah Stone PA-C RE: COPD Continue current maintenance Rx at this time. Will re-assess after cardiac surgery. Based on oximetry today, you do not require supplemental oxygen with rest or exertion. Will obtain nocturnal oxygen from [employer]. Continue rescue inhaler as needed for relief of shortness of breath or wheezing, up to 4 times daily. Re-assess in 3 months, sooner if needed. 06/14/18: Hematology - Maria Isabel Tay MD RE: Small cell Lymphoma (in remission) - Continued observation and repeat CT chest abdomen pelvis in 3 months - proceed with valvular heart surgery and follow with cardiology. - Continue Coumadin. - repeat CBC, CMP, LDH, immunofixation & OV in 3 months. DM: No Cardiac Surgical prep: DR. JO AWARE OF ELEVATED CREATININE SIGNATURE: Bell Johnson APRN.PRODUCT SAFETY ENGINEER CHECKED BY: LEE ANN DATE of SERVICE: 07/29/2018 TIME of SERVICE: 8:22 AM Encounter for preoperative a nesthesiology assessment for cardiac surgery 07/29/2018 08/29/2021 Small B-cell lymphoma of extranodal site 018 08/29/2021 Overview: Added automatically from request for surgery [id number] Bone metastasis 10/13/2017 08/29/2021 Overview: Added automatically from request for surgery [id number] Hypoxemia 05/20/2017 08/03/2018 Overview: Requiring HF O2 after extubation A/p Begin diuresis and oob to chair, wean O2 as able. 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 Lopez follows for benign tumor removed 2002 Closed fracture of lateral malleolus 11/25/2005 09/05/2008 IBS (irritable bowel syndrome) 1 Overview: with diarrhea and urgency Chronic heart failure with p reserved ejection fraction (HFpEF) 08/29/2021 Persistent atrial fibrillation 1 documented as of this encounter (statuses as of 03/30/2022) [facility]09-[facility]-2018 History of Past illness Narrative* Problem Noted Date Resolved Date Hypervolemia 08/01/2018 08/03/2018 Overview: A/p Edema noted on exam and CXR. Begin diuresis and monitor closely RADHA (acute kidney injury) 08/01/20182017 Overview: History: Post-operative. Assessment: BUN/Cr normalizing Plan: Avoid hypotension. Renally dose medications Cardiac insufficiency 07/30/2018 07/31/2018 Overview: A/p Cardiac insuffiencey requiring epi, titrate for UO & monitor CVP On mechanically assisted ventilation 07/30/2018 07/31/2018 Overview: Grade 1 Airway A/p WTE Postoperative pain 07/30/2018 08/03/2018 Overview: A/p Controlled with WELD TECHNICIAN fentanyl, scheduled lidoderm patches and tyenol, prn oxycodone Stress hyperglycemia 07/30/2018 08/05/2018 Overview: Continue SS. Hypovolemia/fluctuating lacic acidosis 8 08/02/2018 Overview: A/p albumin given x1 Discharge planning issues 07/29/20182020 Overview: Discharge to SNF 08.06.2018. Lives in [facility], alone but has supportive family. PT/OT/RT recommend SNF. Appointments requested with [employer] and Cards. Preop testing 07/29/2018 08/03/2018 Overview: [facility] PRE-OP [facility] Surgeon: Jamie Jo M.D. Informed Consent Completed: yes STS Score: N/A CAD: No Is intended procedure a CABG: No - is a beta jhon ordered? Previously prescribed H & P completed: Yes PA/LAT: Completed CT: Completed MRI: N/A LE US: N/A Cath: Yes (outside images on syngo)- reviewed: No Echo:Completed EKG: Completed EF %: 65 PI's: N/A Carotid: N/A Mapping: N/A Dental: Completed (edentulous) PFT's: Completed Recent Labs 07/29/18 0746 WBC 8.47 HB 12.8 HCT 41.4 PLT 294 INR 1.1 CREAT 1.33* UA: results pending HCG:N/A ABO/ABO Confirmed: Yes Blood ordered: No SA Swab: Yes - results: Pending Last Dose of Anticoagulation: Last dose of Coumadin on 07/24 Op Note: N/A Pacemaker Check: N/A Implants: no Consults: 07/15 - Pulmonary -Aaliyah Stone PA-C RE: COPD Continue current maintenance Rx at this time. Will re-assess after cardiac surgery. Based on oximetry today, you do not require supplemental oxygen with rest or exertion. Will obtain nocturnal oxygen from [employer]. Continue rescue inhaler as needed for relief of shortness of breath or wheezing, up to 4 times daily. Re-assess in 3 months, sooner if needed. 06/14/18: Hematology - Maria Isabel Tay MD RE: Small cell Lymphoma (in remission) - Continued observation and repeat CT chest abdomen pelvis in 3 months - proceed with valvular heart surgery and follow with cardiology. - Continue Coumadin. - repeat CBC, CMP, LDH, immunofixation & OV in 3 months. DM: No Cardiac Surgical prep: DR. JO AWARE OF ELEVATED CREATININE SIGNATURE: Bell Johnson APRN.PRODUCT SAFETY ENGINEER CHECKED BY: LEE ANN DATE of SERVICE: 07/29/2018 TIME of SERVICE: 8:22 AM Encounter for preoperative a nesthesiology assessment for cardiac surgery 07/29/2018 08/29/2021 Small B-cell lymphoma of extranodal site 018 08/29/2021 Overview: Added automatically from request for surgery [id number] Bone metastasis 10/13/2017 08/29/2021 Overview: Added automatically from request for surgery [id number] Hypoxemia 05/20/2017 08/03/2018 Overview: Requiring HF O2 after extubation A/p Begin diuresis and oob to chair, wean O2 as able. 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 Lopez follows for benign tumor removed 2002 Closed fracture of lateral malleolus 11/25/2005 09/05/2008 IBS (irritable bowel syndrome) 1 Overview: with diarrhea and urgency Chronic heart failure with p reserved ejection fraction (HFpEF) 08/29/2021 Persistent atrial fibrillation 1 documented as of this encounter (statuses as of 04/03/2022) [facility]09[facility]2018 History of Past illness Narrative* Problem Noted Date Resolved Date Hypervolemia 08/01/2018 08/03/2018 Overview: A/p Edema noted on exam and CXR. Begin diuresis and monitor closely RADHA (acute kidney injury) 08/01/20182017 Overview: History: Post-operative. Assessment: BUN/Cr normalizing Plan: Avoid hypotension. Renally dose medications Cardiac insufficiency 07/30/2018 07/31/2018 Overview: A/p Cardiac insuffiencey requiring epi, titrate for UO & monitor CVP On mechanically assisted ventilation 07/30/2018 07/31/2018 Overview: Grade 1 Airway A/p WTE Postoperative pain 07/30/2018 08/03/2018 Overview: A/p Controlled with WELD TECHNICIAN fentanyl, scheduled lidoderm patches and tyenol, prn oxycodone Stress hyperglycemia 07/30/2018 08/05/2018 Overview: Continue SS. Hypovolemia/fluctuating lacic acidosis 8 08/02/2018 Overview: A/p albumin given x1 Discharge planning issues 07/29/20182020 Overview: Discharge to SNF 08.06.2018. Lives in [facility], alone but has supportive family. PT/OT/RT recommend SNF. Appointments requested with [employer] and Cards. Preop testing 07/29/2018 08/03/2018 Overview: [facility] Surgeon: Jamie Jo M.D. Informed Consent Completed: yes STS Score: N/A CAD: No Is intended procedure a CABG: No - is a beta jhon ordered? Previously prescribed H & P completed: Yes PA/LAT: Completed CT: Completed MRI: N/A LE US: N/A Cath: Yes (outside images on syngo)- reviewed: No Echo:Completed EKG: Completed EF %: 65 PI's: N/A Carotid: N/A Mapping: N/A Dental: Completed (edentulous) PFT's: Completed Recent Labs 07/29/18 0746 WBC 8.47 HB 12.8 HCT 41.4 PLT 294 INR 1.1 CREAT 1.33* UA: results pending HCG:N/A ABO/ABO Confirmed: Yes Blood ordered: No SA Swab: Yes - results: Pending Last Dose of Anticoagulation: Last dose of Coumadin on 07/24 Op Note: N/A Pacemaker Check: N/A Implants: no Consults: 07/15 - Pulmonary -Aaliyah Stone PA-C RE: COPD Continue current maintenance Rx at this time. Will re-assess after cardiac surgery. Based on oximetry today, you do not require supplemental oxygen with rest or exertion. Will obtain nocturnal oxygen from [employer]. Continue rescue inhaler as needed for relief of shortness of breath or wheezing, up to 4 times daily. Re-assess in 3 months, sooner if needed. 8/13/18: Hematology - Maria Isabel Tay MD RE: Small cell Lymphoma (in remission) - Continued observation and repeat CT chest abdomen pelvis in 3 months - proceed with valvular heart surgery and follow with cardiology. - Continue Coumadin. - repeat CBC, CMP, LDH, immunofixation & OV in 3 months. DM: No Cardiac Surgical prep: DR. JO AWARE OF ELEVATED CREATININE SIGNATURE: Bell Johnson APRN.PRODUCT SAFETY ENGINEER CHECKED BY: LEE ANN DATE of SERVICE: 07/29/2018 TIME of SERVICE: 8:22 AM Encounter for preoperative a nesthesiology assessment for cardiac surgery 07/29/2018 08/29/2021 Bone metastasis 10/13/2017 08/29/2021 Overview: Added automatically from request for surgery [id number] Hypoxemia 05/20/2017 08/03/2018 Overview: Requiring HF O2 after extubation A/p Begin diuresis and oob to chair, wean O2 as able. 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 Lopez follows for benign tumor removed 2002 Closed fracture of lateral malleolus 11/25/2005 09/05/2008 IBS (irritable bowel syndrome) 1 Overview: with diarrhea and urgency Chronic heart failure with p reserved ejection fraction (HFpEF) 08/29/2021 Persistent atrial fibrillation 1 documented as of this encounter (statuses as of 04/08/2022) [facility] History of Past illness Narrative* Problem Noted Date Resolved Date Hypervolemia 08/01/2018 08/03/2018 Overview: A/p Edema noted on exam and CXR. Begin diuresis and monitor closely RADHA (acute kidney injury) 08/01/20182017 Overview: History: Post-operative. Assessment: BUN/Cr normalizing Plan: Avoid hypotension. Renally dose medications Cardiac insufficiency 07/30/2018 07/31/2018 Overview: A/p Cardiac insuffiencey requiring epi, titrate for UO & monitor CVP On mechanically assisted ventilation 07/30/2018 07/31/2018 Overview: Grade 1 Airway A/p WTE Postoperative pain 07/30/2018 08/03/2018 Overview: A/p Controlled with WELD TECHNICIAN fentanyl, scheduled lidoderm patches and tyenol, prn oxycodone Stress hyperglycemia 07/30/2018 08/05/2018 Overview: Continue SS. Hypovolemia/fluctuating lacic acidosis 8 08/02/2018 Overview: A/p albumin given x1 Discharge planning issues 07/29/20182020 Overview: Discharge to SNF 08.06.2018. Lives in [facility], alone but has supportive family. PT/OT/RT recommend SNF. Appointments requested with [employer] and Cards. Preop testing 07/29/2018 08/03/2018 Overview: [facility] PRE-OP [facility] Surgeon: Jamie Jo M.D. Informed Consent Completed: yes STS Score: N/A CAD: No Is intended procedure a CABG: No - is a beta jhon ordered? Previously prescribed H & P completed: Yes PA/LAT: Completed CT: Completed MRI: N/A LE US: N/A Cath: Yes (outside images on syngo)- reviewed: No Echo:Completed EKG: Completed EF %: 65 PI's: N/A Carotid: N/A Mapping: N/A Dental: Completed (edentulous) PFT's: Completed Recent Labs 07/29/18 0746 WBC 8.47 HB 12.8 HCT 41.4 PLT 294 INR 1.1 CREAT 1.33* UA: results pending HCG:N/A ABO/ABO Confirmed: Yes Blood ordered: No SA Swab: Yes - results: Pending Last Dose of Anticoagulation: Last dose of Coumadin on 07/24 Op Note: N/A Pacemaker Check: N/A Implants: no Consults: 07/15 - Pulmonary -Aaliyah Stone PA-C RE: COPD Continue current maintenance Rx at this time. Will re-assess after cardiac surgery. Based on oximetry today, you do not require supplemental oxygen with rest or exertion. Will obtain nocturnal oxygen from [employer]. Continue rescue inhaler as needed for relief of shortness of breath or wheezing, up to 4 times daily. Re-assess in 3 months, sooner if needed. 06/14/18: Hematology - Maria Isabel Tay MD RE: Small cell Lymphoma (in remission) - Continued observation and repeat CT chest abdomen pelvis in 3 months - proceed with valvular heart surgery and follow with cardiology. - Continue Coumadin. - repeat CBC, CMP, LDH, immunofixation & OV in 3 months. DM: No Cardiac Surgical prep: DR. JO AWARE OF ELEVATED CREATININE SIGNATURE: Bell Johnson APRN.PRODUCT SAFETY ENGINEER CHECKED BY: LEE ANN DATE of SERVICE: 07/29/2018 TIME of SERVICE: 8:22 AM Encounter for preoperative a nesthesiology assessment for cardiac surgery 07/29/2018 08/29/2021 Bone metastasis 10/13/2017 08/29/2021 Overview: Added automatically from request for surgery [id number] Hypoxemia 05/20/2017 08/03/2018 Overview: Requiring HF O2 after extubation A/p Begin diuresis and oob to chair, wean O2 as able. 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 Lopez follows for benign tumor removed 2002 Closed fracture of lateral malleolus 11/25/2005 09/05/2008 IBS (irritable bowel syndrome) 1 Overview: with diarrhea and urgency Chronic heart failure with p reserved ejection fraction (HFpEF) 08/29/2021 Persistent atrial fibrillation 1 documented as of this encounter (statuses as of 04/11/2022) [facility] History of Past illness Narrative* Problem Noted Date Resolved Date Hypervolemia 08/01/2018 08/03/2018 Overview: A/p Edema noted on exam and CXR. Begin diuresis and monitor closely RADHA (acute kidney injury) 08/01/20182017 Overview: History: Post-operative. Assessment: BUN/Cr normalizing Plan: Avoid hypotension. Renally dose medications Cardiac insufficiency 07/30/2018 07/31/2018 Overview: A/p Cardiac insuffiencey requiring epi, titrate for UO & monitor CVP On mechanically assisted ventilation 07/30/2018 07/31/2018 Overview: Grade 1 Airway A/p WTE Postoperative pain 07/30/2018 08/03/2018 Overview: A/p Controlled with WELD TECHNICIAN fentanyl, scheduled lidoderm patches and tyenol, prn oxycodone Stress hyperglycemia 07/30/2018 08/05/2018 Overview: Continue SS. Hypovolemia/fluctuating lacic acidosis 8 08/02/2018 Overview: A/p albumin given x1 Discharge planning issues 07/29/20182020 Overview: Discharge to SNF 08.06.2018. Lives in [facility], alone but has supportive family. PT/OT/RT recommend SNF. Appointments requested with [employer] and Cards. Preop testing 07/29/2018 08/03/2018 Overview: [facility] Surgeon: Jamie Jo M.D. Informed Consent Completed: yes STS Score: N/A CAD: No Is intended procedure a CABG: No - is a beta jhon ordered? Previously prescribed H & P completed: Yes PA/LAT: Completed CT: Completed MRI: N/A LE US: N/A Cath: Yes (outside images on syngo)- reviewed: No Echo:Completed EKG: Completed EF %: 65 PI's: N/A Carotid: N/A Mapping: N/A Dental: Completed (edentulous) PFT's: Completed Recent Labs 07/29/18 0746 WBC 8.47 HB 12.8 HCT 41.4 PLT 294 INR 1.1 CREAT 1.33* UA: results pending HCG:N/A ABO/ABO Confirmed: Yes Blood ordered: No SA Swab: Yes - results: Pending Last Dose of Anticoagulation: Last dose of Coumadin on 07/24 Op Note: N/A Pacemaker Check: N/A Implants: no Consults: 07/15 - Pulmonary -Aaliyah Stone PA-C RE: COPD Continue current maintenance Rx at this time. Will re-assess after cardiac surgery. Based on oximetry today, you do not require supplemental oxygen with rest or exertion. Will obtain nocturnal oxygen from [employer]. Continue rescue inhaler as needed for relief of shortness of breath or wheezing, up to 4 times daily. Re-assess in 3 months, sooner if needed. 06/14/18: Hematology - Maria Isabel Tay MD RE: Small cell Lymphoma (in remission) - Continued observation and repeat CT chest abdomen pelvis in 3 months - proceed with valvular heart surgery and follow with cardiology. - Continue Coumadin. - repeat CBC, CMP, LDH, immunofixation & OV in 3 months. DM: No Cardiac Surgical prep: DR. JO AWARE OF ELEVATED CREATININE SIGNATURE: Bell Johnson APRN.PRODUCT SAFETY ENGINEER CHECKED BY: LEE ANN DATE of SERVICE: 07/29/2018 TIME of SERVICE: 8:22 AM Encounter for preoperative a nesthesiology assessment for cardiac surgery 07/29/2018 08/29/2021 Bone metastasis 10/13/2017 08/29/2021 Overview: Added automatically from request for surgery [id number] Hypoxemia 05/20/2017 08/03/2018 Overview: Requiring HF O2 after extubation A/p Begin diuresis and oob to chair, wean O2 as able. 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 Lopez follows for benign tumor removed 2002 Closed fracture of lateral malleolus 11/25/2005 09/05/2008 IBS (irritable bowel syndrome) 1 Overview: with diarrhea and urgency Chronic heart failure with p reserved ejection fraction (HFpEF) 08/29/2021 Persistent atrial fibrillation 1 documented as of this encounter (statuses as of 05/01/2022) [facility]09-30-2018 History of Past illness Narrative* Problem Noted Date Resolved Date Hypervolemia 08/01/2018 08/03/2018 Overview: A/p Edema noted on exam and CXR. Begin diuresis and monitor closely RADHA (acute kidney injury) 08/01/20182017 Overview: History: Post-operative. Assessment: BUN/Cr normalizing Plan: Avoid hypotension. Renally dose medications Cardiac insufficiency 07/30/2018 07/31/2018 Overview: A/p Cardiac insuffiencey requiring epi, titrate for UO & monitor CVP On mechanically assisted ventilation 07/30/2018 07/31/2018 Overview: Grade 1 Airway A/p WTE Postoperative pain 07/30/2018 08/03/2018 Overview: A/p Controlled with WELD TECHNICIAN fentanyl, scheduled lidoderm patches and tyenol, prn oxycodone Stress hyperglycemia 07/30/2018 08/05/2018 Overview: Continue SS. Hypovolemia/fluctuating lacic acidosis 8 08/02/2018 Overview: A/p albumin given x1 Discharge planning issues 07/29/20182020 Overview: Discharge to SNF 08.06.2018. Lives in [facility], alone but has supportive family. PT/OT/RT recommend SNF. Appointments requested with [employer] and Cards. Preop testing 07/29/2018 08/03/2018 Overview: [facility] PRE-[facility] Surgeon: Jamie Jo M.D. Informed Consent Completed: yes STS Score: N/A CAD: No Is intended procedure a CABG: No - is a beta jhon ordered? Previously prescribed H & P completed: Yes PA/LAT: Completed CT: Completed MRI: N/A LE US: N/A Cath: Yes (outside images on syngo)- reviewed: No Echo:Completed EKG: Completed EF %: 65 PI's: N/A Carotid: N/A Mapping: N/A Dental: Completed (edentulous) PFT's: Completed Recent Labs 07/29/18 0746 WBC 8.47 HB 12.8 HCT 41.4 PLT 294 INR 1.1 CREAT 1.33* UA: results pending HCG:N/A ABO/ABO Confirmed: Yes Blood ordered: No SA Swab: Yes - results: Pending Last Dose of Anticoagulation: Last dose of Coumadin on 07/24 Op Note: N/A Pacemaker Check: N/A Implants: no Consults: 07/15 - Pulmonary -Aaliyah Stone PA-C RE: COPD Continue current maintenance Rx at this time. Will re-assess after cardiac surgery. Based on oximetry today, you do not require supplemental oxygen with rest or exertion. Will obtain nocturnal oxygen from [employer]. Continue rescue inhaler as needed for relief of shortness of breath or wheezing, up to 4 times daily. Re-assess in 3 months, sooner if needed. 06/14/18: Hematology - Maria Isabel Tay MD RE: Small cell Lymphoma (in remission) - Continued observation and repeat CT chest abdomen pelvis in 3 months - proceed with valvular heart surgery and follow with cardiology. - Continue Coumadin. - repeat CBC, CMP, LDH, immunofixation & OV in 3 months. DM: No Cardiac Surgical prep: DR. JO AWARE OF ELEVATED CREATININE SIGNATURE: Bell Johnson APRN.PRODUCT SAFETY ENGINEER CHECKED BY: LEE ANN DATE of SERVICE: 07/29/2018 TIME of SERVICE: 8:22 AM Encounter for preoperative a nesthesiology assessment for cardiac surgery 07/29/2018 08/29/2021 Bone metastasis 10/13/2017 08/29/2021 Overview: Added automatically from request for surgery [id number] Hypoxemia 05/20/2017 08/03/2018 Overview: Requiring HF O2 after extubation A/p Begin diuresis and oob to chair, wean O2 as able. 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 Lopez follows for benign tumor removed 2002 Closed fracture of lateral malleolus 11/25/2005 09/05/2008 IBS (irritable bowel syndrome) 1 Overview: with diarrhea and urgency Chronic heart failure with p reserved ejection fraction (HFpEF) 08/29/2021 Persistent atrial fibrillation 1 documented as of this encounter (statuses as of 05/01/2022) [facility]09-30-2018 History of Past illness Narrative* Problem Noted Date Resolved Date Hypervolemia 08/01/2018 08/03/2018 Overview: A/p Edema noted on exam and CXR. Begin diuresis and monitor closely RADHA (acute kidney injury) 08/01/20182017 Overview: History: Post-operative. Assessment: BUN/Cr normalizing Plan: Avoid hypotension. Renally dose medications Cardiac insufficiency 07/30/2018 07/31/2018 Overview: A/p Cardiac insuffiencey requiring epi, titrate for UO & monitor CVP On mechanically assisted ventilation 07/30/2018 07/31/2018 Overview: Grade 1 Airway A/p WTE Postoperative pain 07/30/2018 08/03/2018 Overview: A/p Controlled with WELD TECHNICIAN fentanyl, scheduled lidoderm patches and tyenol, prn oxycodone Stress hyperglycemia 07/30/2018 08/05/2018 Overview: Continue SS. Hypovolemia/fluctuating lacic acidosis 8 08/02/2018 Overview: A/p albumin given x1 Discharge planning issues 07/29/20182020 Overview: Discharge to SNF 08.06.2018. Lives in [place], alone but has supportive family. PT/OT/RT recommend SNF. Appointments requested with [employer] and Cards. Preop testing 07/29/2018 08/03/2018 Overview: [facility] PRE-OP [facility] Surgeon: Jamie Jo M.D. Informed Consent Completed: yes STS Score: N/A CAD: No Is intended procedure a CABG: No - is a beta jhon ordered? Previously prescribed H & P completed: Yes PA/LAT: Completed CT: Completed MRI: N/A LE US: N/A Cath: Yes (outside images on syngo)- reviewed: No Echo:Completed EKG: Completed EF %: 65 PI's: N/A Carotid: N/A Mapping: N/A Dental: Completed (edentulous) PFT's: Completed Recent Labs 07/29/18 0746 WBC 8.47 HB 12.8 HCT 41.4 PLT 294 INR 1.1 CREAT 1.33* UA: results pending HCG:N/A ABO/ABO Confirmed: Yes Blood ordered: No SA Swab: Yes - results: Pending Last Dose of Anticoagulation: Last dose of Coumadin on 07/24 Op Note: N/A Pacemaker Check: N/A Implants: no Consults: 07/15 - Pulmonary -Aaliyah Stone PA-C RE: COPD Continue current maintenance Rx at this time. Will re-assess after cardiac surgery. Based on oximetry today, you do not require supplemental oxygen with rest or exertion. Will obtain nocturnal oxygen from [employer]. Continue rescue inhaler as needed for relief of shortness of breath or wheezing, up to 4 times daily. Re-assess in 3 months, sooner if needed. 06/14/18: Hematology - Maria Isabel Tay MD RE: Small cell Lymphoma (in remission) - Continued observation and repeat CT chest abdomen pelvis in 3 months - proceed with valvular heart surgery and follow with cardiology. - Continue Coumadin. - repeat CBC, CMP, LDH, immunofixation & OV in 3 months. DM: No Cardiac Surgical prep: DR. JO AWARE OF ELEVATED CREATININE SIGNATURE: Bell Johnson APRN.PRODUCT SAFETY ENGINEER CHECKED BY: LEE ANN DATE of SERVICE: 07/29/2018 TIME of SERVICE: 8:22 AM Encounter for preoperative a nesthesiology assessment for cardiac surgery 07/29/2018 08/29/2021 Bone metastasis 10/13/2017 08/29/2021 Overview: Added automatically from request for surgery [id number] Hypoxemia 05/20/2017 08/03/2018 Overview: Requiring HF O2 after extubation A/p Begin diuresis and oob to chair, wean O2 as able. 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 Lopez follows for benign tumor removed 2002 Closed fracture of lateral malleolus 11/25/2005 09/05/2008 IBS (irritable bowel syndrome) 1 Overview: with diarrhea and urgency Chronic heart failure with p reserved ejection fraction (HFpEF) 08/29/2021 Persistent atrial fibrillation 1 documented as of this encounter (statuses as of 06/04/2022) [facility]09-30-2018 History of Past illness Narrative* Problem Noted Date Resolved Date Hypervolemia 08/01/2018 08/03/2018 Overview: A/p Edema noted on exam and CXR. Begin diuresis and monitor closely RADHA (acute kidney injury) 08/01/20182017 Overview: History: Post-operative. Assessment: BUN/Cr normalizing Plan: Avoid hypotension. Renally dose medications Cardiac insufficiency 07/30/2018 07/31/2018 Overview: A/p Cardiac insuffiencey requiring epi, titrate for UO & monitor CVP On mechanically assisted ventilation 07/30/2018 07/31/2018 Overview: Grade 1 Airway A/p WTE Postoperative pain 07/30/2018 08/03/2018 Overview: A/p Controlled with WELD TECHNICIAN fentanyl, scheduled lidoderm patches and tyenol, prn oxycodone Stress hyperglycemia 07/30/2018 08/05/2018 Overview: Continue SS. Hypovolemia/fluctuating lacic acidosis 8 08/02/2018 Overview: A/p albumin given x1 Discharge planning issues 07/29/20182020 Overview: Discharge to SNF 08.06.2018. Lives in [facility], alone but has supportive family. PT/OT/RT recommend SNF. Appointments requested with [employer] and Cards. Preop testing 07/29/2018 08/03/2018 Overview: [facility] PRE-OP CHECK[facility] Surgeon: Jamie Jo M.D. Informed Consent Completed: yes STS Score: N/A CAD: No Is intended procedure a CABG: No - is a beta jhon ordered? Previously prescribed H & P completed: Yes PA/LAT: Completed CT: Completed MRI: N/A LE US: N/A Cath: Yes (outside images on syngo)- reviewed: No Echo:Completed EKG: Completed EF %: 65 PI's: N/A Carotid: N/A Mapping: N/A Dental: Completed (edentulous) PFT's: Completed Recent Labs 07/29/18 0746 WBC 8.47 HB 12.8 HCT 41.4 PLT 294 INR 1.1 CREAT 1.33* UA: results pending HCG:N/A ABO/ABO Confirmed: Yes Blood ordered: No SA Swab: Yes - results: Pending Last Dose of Anticoagulation: Last dose of Coumadin on 07/24 Op Note: N/A Pacemaker Check: N/A Implants: no Consults: 07/15 - Pulmonary -Aaliyah Stone PA-C RE: COPD Continue current maintenance Rx at this time. Will re-assess after cardiac surgery. Based on oximetry today, you do not require supplemental oxygen with rest or exertion. Will obtain nocturnal oxygen from [employer]. Continue rescue inhaler as needed for relief of shortness of breath or wheezing, up to 4 times daily. Re-assess in 3 months, sooner if needed. 06/14/18: Hematology - Maria Isabel Tay MD RE: Small cell Lymphoma (in remission) - Continued observation and repeat CT chest abdomen pelvis in 3 months - proceed with valvular heart surgery and follow with cardiology. - Continue Coumadin. - repeat CBC, CMP, LDH, immunofixation & OV in 3 months. DM: No Cardiac Surgical prep: DR. JO AWARE OF ELEVATED CREATININE SIGNATURE: Bell Johnson APRN.PRODUCT SAFETY ENGINEER CHECKED BY: LEE ANN DATE of SERVICE: 07/29/2018 TIME of SERVICE: 8:22 AM Encounter for preoperative a nesthesiology assessment for cardiac surgery 07/29/2018 08/29/2021 Bone metastasis 10/13/2017 08/29/2021 Overview: Added automatically from request for surgery [id number] Hypoxemia 05/20/2017 08/03/2018 Overview: Requiring HF O2 after extubation A/p Begin diuresis and oob to chair, wean O2 as able. 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 Lopez follows for benign tumor removed 2002 Closed fracture of lateral malleolus 11/25/2005 09/05/2008 IBS (irritable bowel syndrome) 1 Overview: with diarrhea and urgency Chronic heart failure with p reserved ejection fraction (HFpEF) 08/29/2021 Persistent atrial fibrillation 1 documented as of this encounter (statuses as of 06/08/2022) [facility]09[facility]-2018 History of Past illness Narrative* Problem Noted Date Resolved Date Hypervolemia 08/01/2018 08/03/2018 Overview: A/p Edema noted on exam and CXR. Begin diuresis and monitor closely RADHA (acute kidney injury) 08/01/20182017 Overview: History: Post-operative. Assessment: BUN/Cr normalizing Plan: Avoid hypotension. Renally dose medications Cardiac insufficiency 07/30/2018 07/31/2018 Overview: A/p Cardiac insuffiencey requiring epi, titrate for UO & monitor CVP On mechanically assisted ventilation 07/30/2018 07/31/2018 Overview: Grade 1 Airway A/p WTE Postoperative pain 07/30/2018 08/03/2018 Overview: A/p Controlled with WELD TECHNICIAN fentanyl, scheduled lidoderm patches and tyenol, prn oxycodone Stress hyperglycemia 07/30/2018 08/05/2018 Overview: Continue SS. Hypovolemia/fluctuating lacic acidosis 8 08/02/2018 Overview: A/p albumin given x1 Discharge planning issues 07/29/20182020 Overview: Discharge to SNF 08.06.2018. Lives in [facility], alone but has supportive family. PT/OT/RT recommend SNF. Appointments requested with [employer] and Cards. Preop testing 07/29/2018 08/03/2018 Overview: [facility] PRE-OP CHECKLIST Surgeon: Jamie Jo M.D. Informed Consent Completed: yes STS Score: N/A CAD: No Is intended procedure a CABG: No - is a beta jhon ordered? Previously prescribed H & P completed: Yes PA/LAT: Completed CT: Completed MRI: N/A LE US: N/A Cath: Yes (outside images on syngo)- reviewed: No Echo:Completed EKG: Completed EF %: 65 PI's: N/A Carotid: N/A Mapping: N/A Dental: Completed (edentulous) PFT's: Completed Recent Labs 07/29/18 0746 WBC 8.47 HB 12.8 HCT 41.4 PLT 294 INR 1.1 CREAT 1.33* UA: results pending HCG:N/A ABO/ABO Confirmed: Yes Blood ordered: No SA Swab: Yes - results: Pending Last Dose of Anticoagulation: Last dose of Coumadin on 07/24 Op Note: N/A Pacemaker Check: N/A Implants: no Consults: 07/15 - Pulmonary -Aaliyah Stone PA-C RE: COPD Continue current maintenance Rx at this time. Will re-assess after cardiac surgery. Based on oximetry today, you do not require supplemental oxygen with rest or exertion. Will obtain nocturnal oxygen from [employer]. Continue rescue inhaler as needed for relief of shortness of breath or wheezing, up to 4 times daily. Re-assess in 3 months, sooner if needed. 06/14/18: Hematology - Maria Isabel Tay MD RE: Small cell Lymphoma (in remission) - Continued observation and repeat CT chest abdomen pelvis in 3 months - proceed with valvular heart surgery and follow with cardiology. - Continue Coumadin. - repeat CBC, CMP, LDH, immunofixation & OV in 3 months. DM: No Cardiac Surgical prep: DR. JO AWARE OF ELEVATED CREATININE SIGNATURE: Bell Johnson APRN.PRODUCT SAFETY ENGINEER CHECKED BY: LEE ANN DATE of SERVICE: 07/29/2018 TIME of SERVICE: 8:22 AM Encounter for preoperative a nesthesiology assessment for cardiac surgery 07/29/2018 08/29/2021 Bone metastasis 10/13/2017 08/29/2021 Overview: Added automatically from request for surgery [id number] Hypoxemia 05/20/2017 08/03/2018 Overview: Requiring HF O2 after extubation A/p Begin diuresis and oob to chair, wean O2 as able. 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 Lopez follows for benign tumor removed 2002 Closed fracture of lateral malleolus 11/25/2005 09/05/2008 IBS (irritable bowel syndrome) 1 Overview: with diarrhea and urgency Chronic heart failure with p reserved ejection fraction (HFpEF) 08/29/2021 Persistent atrial fibrillation 1 documented as of this encounter (statuses as of 07/05/2022) [facility] History of Past illness Narrative* Problem Noted Date Resolved Date Hypervolemia 08/01/2018 08/03/2018 Overview: A/p Edema noted on exam and CXR. Begin diuresis and monitor closely RADHA (acute kidney injury) 08/01/20182017 Overview: History: Post-operative. Assessment: BUN/Cr normalizing Plan: Avoid hypotension. Renally dose medications Cardiac insufficiency 07/30/2018 07/31/2018 Overview: A/p Cardiac insuffiencey requiring epi, titrate for UO & monitor CVP On mechanically assisted ventilation 07/30/2018 07/31/2018 Overview: Grade 1 Airway A/p WTE Postoperative pain 07/30/2018 08/03/2018 Overview: A/p Controlled with WELD TECHNICIAN fentanyl, scheduled lidoderm patches and tyenol, prn oxycodone Stress hyperglycemia 07/30/2018 08/05/2018 Overview: Continue SS. Hypovolemia/fluctuating lacic acidosis 8 08/02/2018 Overview: A/p albumin given x1 Discharge planning issues 07/29/20182020 Overview: Discharge to SNF 08.06.2018. Lives in [facility], alone but has supportive family. PT/OT/RT recommend SNF. Appointments requested with [employer] and Cards. Preop testing 07/29/2018 08/03/2018 Overview: [facility] PRE-OP CHECKLIST Surgeon: Jamie Jo M.D. Informed Consent Completed: yes STS Score: N/A CAD: No Is intended procedure a CABG: No - is a beta jhon ordered? Previously prescribed H & P completed: Yes PA/LAT: Completed CT: Completed MRI: N/A LE US: N/A Cath: Yes (outside images on syngo)- reviewed: No Echo:Completed EKG: Completed EF %: 65 PI's: N/A Carotid: N/A Mapping: N/A Dental: Completed (edentulous) PFT's: Completed Recent Labs 07/29/18 0746 WBC 8.47 HB 12.8 HCT 41.4 PLT 294 INR 1.1 CREAT 1.33* UA: results pending HCG:N/A ABO/ABO Confirmed: Yes Blood ordered: No SA Swab: Yes - results: Pending Last Dose of Anticoagulation: Last dose of Coumadin on 07/24 Op Note: N/A Pacemaker Check: N/A Implants: no Consults: 07/15 - Pulmonary -Aaliyah Stone PA-C RE: COPD Continue current maintenance Rx at this time. Will re-assess after cardiac surgery. Based on oximetry today, you do not require supplemental oxygen with rest or exertion. Will obtain nocturnal oxygen from [employer]. Continue rescue inhaler as needed for relief of shortness of breath or wheezing, up to 4 times daily. Re-assess in 3 months, sooner if needed. 06/14/18: Hematology - Maria Isabel Tay MD RE: Small cell Lymphoma (in remission) - Continued observation and repeat CT chest abdomen pelvis in 3 months - proceed with valvular heart surgery and follow with cardiology. - Continue Coumadin. - repeat CBC, CMP, LDH, immunofixation & OV in 3 months. DM: No Cardiac Surgical prep: DR. JO AWARE OF ELEVATED CREATININE SIGNATURE: Bell Johnson APRN.PRODUCT SAFETY ENGINEER CHECKED BY: LEE ANN DATE of SERVICE: 07/29/2018 TIME of SERVICE: 8:22 AM Encounter for preoperative a nesthesiology assessment for cardiac surgery 07/29/2018 08/29/2021 Bone metastasis 10/13/2017 08/29/2021 Overview: Added automatically from request for surgery [id number] Hypoxemia 05/20/2017 08/03/2018 Overview: Requiring HF O2 after extubation A/p Begin diuresis and oob to chair, wean O2 as able. 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 Lopez follows for benign tumor removed 2002 Closed fracture of lateral malleolus 11/25/2005 09/05/2008 IBS (irritable bowel syndrome) 1 Overview: with diarrhea and urgency Chronic heart failure with p reserved ejection fraction (HFpEF) 08/29/2021 Persistent atrial fibrillation 1 documented as of this encounter (statuses as of 07/10/2022) [facility] History of Past illness Narrative* Problem Noted Date Resolved Date Hypervolemia 08/01/2018 08/03/2018 Overview: A/p Edema noted on exam and CXR. Begin diuresis and monitor closely RADHA (acute kidney injury) 08/01/20182017 Overview: History: Post-operative. Assessment: BUN/Cr normalizing Plan: Avoid hypotension. Renally dose medications Cardiac insufficiency 07/30/2018 07/31/2018 Overview: A/p Cardiac insuffiencey requiring epi, titrate for UO & monitor CVP On mechanically assisted ventilation 07/30/2018 07/31/2018 Overview: Grade 1 Airway A/p WTE Postoperative pain 07/30/2018 08/03/2018 Overview: A/p Controlled with WELD TECHNICIAN fentanyl, scheduled lidoderm patches and tyenol, prn oxycodone Stress hyperglycemia 07/30/2018 08/05/2018 Overview: Continue SS. Hypovolemia/fluctuating lacic acidosis 8 08/02/2018 Overview: A/p albumin given x1 Discharge planning issues 07/29/20182020 Overview: Discharge to SNF 08.06.2018. Lives in [facility], alone but has supportive family. PT/OT/RT recommend SNF. Appointments requested with [employer] and Cards. Preop testing 07/29/2018 08/03/2018 Overview: [facility] Surgeon: Jamie Jo M.D. Informed Consent Completed: yes STS Score: N/A CAD: No Is intended procedure a CABG: No - is a beta jhon ordered? Previously prescribed H & P completed: Yes PA/LAT: Completed CT: Completed MRI: N/A LE US: N/A Cath: Yes (outside images on syngo)- reviewed: No Echo:Completed EKG: Completed EF %: 65 PI's: N/A Carotid: N/A Mapping: N/A Dental: Completed (edentulous) PFT's: Completed Recent Labs 07/29/18 0746 WBC 8.47 HB 12.8 HCT 41.4 PLT 294 INR 1.1 CREAT 1.33* UA: results pending HCG:N/A ABO/ABO Confirmed: Yes Blood ordered: No SA Swab: Yes - results: Pending Last Dose of Anticoagulation: Last dose of Coumadin on 07/24 Op Note: N/A Pacemaker Check: N/A Implants: no Consults: 07/15 - Pulmonary -Aaliyah Stone PA-C RE: COPD Continue current maintenance Rx at this time. Will re-assess after cardiac surgery. Based on oximetry today, you do not require supplemental oxygen with rest or exertion. Will obtain nocturnal oxygen from [employer]. Continue rescue inhaler as needed for relief of shortness of breath or wheezing, up to 4 times daily. Re-assess in 3 months, sooner if needed. 06/14/18: Hematology - Maria Isabel Tay MD RE: Small cell Lymphoma (in remission) - Continued observation and repeat CT chest abdomen pelvis in 3 months - proceed with valvular heart surgery and follow with cardiology. - Continue Coumadin. - repeat CBC, CMP, LDH, immunofixation & OV in 3 months. DM: No Cardiac Surgical prep: DR. JO AWARE OF ELEVATED CREATININE SIGNATURE: Bell Johnson APRN.PRODUCT SAFETY ENGINEER CHECKED BY: LEE ANN DATE of SERVICE: 07/29/2018 TIME of SERVICE: 8:22 AM Encounter for preoperative a nesthesiology assessment for cardiac surgery 07/29/2018 08/29/2021 Bone metastasis 10/13/2017 08/29/2021 Overview: Added automatically from request for surgery [id number] Hypoxemia 05/20/2017 08/03/2018 Overview: Requiring HF O2 after extubation A/p Begin diuresis and oob to chair, wean O2 as able. 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 Lopez follows for benign tumor removed 2002 Closed fracture of lateral malleolus 11/25/2005 09/05/2008 IBS (irritable bowel syndrome) 1 Overview: with diarrhea and urgency Chronic heart failure with p reserved ejection fraction (HFpEF) 08/29/2021 Persistent atrial fibrillation 1 documented as of this encounter (statuses as of 07/11/2022) [facility]09-30-2018 History of Past illness Narrative* Problem Noted Date Resolved Date Hypervolemia 08/01/2018 08/03/2018 Overview: A/p Edema noted on exam and CXR. Begin diuresis and monitor closely RADHA (acute kidney injury) 08/01/20182017 Overview: History: Post-operative. Assessment: BUN/Cr normalizing Plan: Avoid hypotension. Renally dose medications Cardiac insufficiency 07/30/2018 07/31/2018 Overview: A/p Cardiac insuffiencey requiring epi, titrate for UO & monitor CVP On mechanically assisted ventilation 07/30/2018 07/31/2018 Overview: Grade 1 Airway A/p WTE Postoperative pain 07/30/2018 08/03/2018 Overview: A/p Controlled with WELD TECHNICIAN fentanyl, scheduled lidoderm patches and tyenol, prn oxycodone Stress hyperglycemia 07/30/2018 08/05/2018 Overview: Continue SS. Hypovolemia/fluctuating lacic acidosis 8 08/02/2018 Overview: A/p albumin given x1 Discharge planning issues 07/29/20182020 Overview: Discharge to SNF 08.06.2018. Lives in [facility], alone but has supportive family. PT/OT/RT recommend SNF. Appointments requested with [employer] and Cards. Preop testing 07/29/2018 08/03/2018 Overview: [facility] PRE-[facility] Surgeon: Jamie Jo M.D. Informed Consent Completed: yes STS Score: N/A CAD: No Is intended procedure a CABG: No - is a beta jhon ordered? Previously prescribed H & P completed: Yes PA/LAT: Completed CT: Completed MRI: N/A LE US: N/A Cath: Yes (outside images on syngo)- reviewed: No Echo:Completed EKG: Completed EF %: 65 PI's: N/A Carotid: N/A Mapping: N/A Dental: Completed (edentulous) PFT's: Completed Recent Labs 07/29/18 0746 WBC 8.47 HB 12.8 HCT 41.4 PLT 294 INR 1.1 CREAT 1.33* UA: results pending HCG:N/A ABO/ABO Confirmed: Yes Blood ordered: No SA Swab: Yes - results: Pending Last Dose of Anticoagulation: Last dose of Coumadin on 07/24 Op Note: N/A Pacemaker Check: N/A Implants: no Consults: 07/15 - Pulmonary -Aaliyah Stone PA-C RE: COPD Continue current maintenance Rx at this time. Will re-assess after cardiac surgery. Based on oximetry today, you do not require supplemental oxygen with rest or exertion. Will obtain nocturnal oxygen from [employer]. Continue rescue inhaler as needed for relief of shortness of breath or wheezing, up to 4 times daily. Re-assess in 3 months, sooner if needed. 06/14/18: Hematology - Maria Isabel Tay MD RE: Small cell Lymphoma (in remission) - Continued observation and repeat CT chest abdomen pelvis in 3 months - proceed with valvular heart surgery and follow with cardiology. - Continue Coumadin. - repeat CBC, CMP, LDH, immunofixation & OV in 3 months. DM: No Cardiac Surgical prep: DR. JO AWARE OF ELEVATED CREATININE SIGNATURE: Bell Johnson APRN.PRODUCT SAFETY ENGINEER CHECKED BY: LEE ANN DATE of SERVICE: 07/29/2018 TIME of SERVICE: 8:22 AM Encounter for preoperative a nesthesiology assessment for cardiac surgery 07/29/2018 08/29/2021 Bone metastasis 10/13/2017 08/29/2021 Overview: Added automatically from request for surgery [id number] Hypoxemia 05/20/2017 08/03/2018 Overview: Requiring HF O2 after extubation A/p Begin diuresis and oob to chair, wean O2 as able. 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 Lopez follows for benign tumor removed 2002 Closed fracture of lateral malleolus 11/25/2005 09/05/2008 IBS (irritable bowel syndrome) 1 Overview: with diarrhea and urgency Chronic heart failure with p reserved ejection fraction (HFpEF) 08/29/2021 Persistent atrial fibrillation 1 documented as of this encounter (statuses as of 07/11/2022) [facility]09-30-2018 History of Past illness Narrative* Problem Noted Date Resolved Date Hypervolemia 08/01/2018 08/03/2018 Overview: A/p Edema noted on exam and CXR. Begin diuresis and monitor closely RADHA (acute kidney injury) 08/01/20182017 Overview: History: Post-operative. Assessment: BUN/Cr normalizing Plan: Avoid hypotension. Renally dose medications Cardiac insufficiency 07/30/2018 07/31/2018 Overview: A/p Cardiac insuffiencey requiring epi, titrate for UO & monitor CVP On mechanically assisted ventilation 07/30/2018 07/31/2018 Overview: Grade 1 Airway A/p WTE Postoperative pain 07/30/2018 08/03/2018 Overview: A/p Controlled with WELD TECHNICIAN fentanyl, scheduled lidoderm patches and tyenol, prn oxycodone Stress hyperglycemia 07/30/2018 08/05/2018 Overview: Continue SS. Hypovolemia/fluctuating lacic acidosis 8 08/02/2018 Overview: A/p albumin given x1 Discharge planning issues 07/29/20182020 Overview: Discharge to SNF 08.06.2018. Lives in [facility], alone but has supportive family. PT/OT/RT recommend SNF. Appointments requested with [employer] and Cards. Preop testing 07/29/2018 08/03/2018 Overview: [facility] PRE-[facility] Surgeon: Jamie Jo M.D. Informed Consent Completed: yes STS Score: N/A CAD: No Is intended procedure a CABG: No - is a beta jhon ordered? Previously prescribed H & P completed: Yes PA/LAT: Completed CT: Completed MRI: N/A LE US: N/A Cath: Yes (outside images on syngo)- reviewed: No Echo:Completed EKG: Completed EF %: 65 PI's: N/A Carotid: N/A Mapping: N/A Dental: Completed (edentulous) PFT's: Completed Recent Labs 07/29/18 0746 WBC 8.47 HB 12.8 HCT 41.4 PLT 294 INR 1.1 CREAT 1.33* UA: results pending HCG:N/A ABO/ABO Confirmed: Yes Blood ordered: No SA Swab: Yes - results: Pending Last Dose of Anticoagulation: Last dose of Coumadin on 07/24 Op Note: N/A Pacemaker Check: N/A Implants: no Consults: 07/15 - Pulmonary -Aaliyah Stone PA-C RE: COPD Continue current maintenance Rx at this time. Will re-assess after cardiac surgery. Based on oximetry today, you do not require supplemental oxygen with rest or exertion. Will obtain nocturnal oxygen from [employer]. Continue rescue inhaler as needed for relief of shortness of breath or wheezing, up to 4 times daily. Re-assess in 3 months, sooner if needed. 06/14/18: Hematology - Maria Isabel Tay MD RE: Small cell Lymphoma (in remission) - Continued observation and repeat CT chest abdomen pelvis in 3 months - proceed with valvular heart surgery and follow with cardiology. - Continue Coumadin. - repeat CBC, CMP, LDH, immunofixation & OV in 3 months. DM: No Cardiac Surgical prep: DR. JO AWARE OF ELEVATED CREATININE SIGNATURE: Bell Johnson APRN.PRODUCT SAFETY ENGINEER CHECKED BY: LEE ANN DATE of SERVICE: 07/29/2018 TIME of SERVICE: 8:22 AM Encounter for preoperative a nesthesiology assessment for cardiac surgery 07/29/2018 08/29/2021 Bone metastasis 10/13/2017 08/29/2021 Overview: Added automatically from request for surgery [id number] Hypoxemia 05/20/2017 08/03/2018 Overview: Requiring HF O2 after extubation A/p Begin diuresis and oob to chair, wean O2 as able. 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 Lopez follows for benign tumor removed 2002 Closed fracture of lateral malleolus 11/25/2005 09/05/2008 IBS (irritable bowel syndrome) 1 Overview: with diarrhea and urgency Chronic heart failure with p reserved ejection fraction (HFpEF) 08/29/2021 Persistent atrial fibrillation 1 documented as of this encounter (statuses as of 07/16/2022) [facility]09-30-2018 History of Past illness Narrative* Problem Noted Date Resolved Date Hypervolemia 08/01/2018 08/03/2018 Overview: A/p Edema noted on exam and CXR. Begin diuresis and monitor closely RADHA (acute kidney injury) 08/01/20182017 Overview: History: Post-operative. Assessment: BUN/Cr normalizing Plan: Avoid hypotension. Renally dose medications Cardiac insufficiency 07/30/2018 07/31/2018 Overview: A/p Cardiac insuffiencey requiring epi, titrate for UO & monitor CVP On mechanically assisted ventilation 07/30/2018 07/31/2018 Overview: Grade 1 Airway A/p WTE Postoperative pain 07/30/2018 08/03/2018 Overview: A/p Controlled with WELD TECHNICIAN fentanyl, scheduled lidoderm patches and tyenol, prn oxycodone Stress hyperglycemia 07/30/2018 08/05/2018 Overview: Continue SS. Hypovolemia/fluctuating lacic acidosis 8 08/02/2018 Overview: A/p albumin given x1 Discharge planning issues 07/29/20182020 Overview: Discharge to SNF 08.06.2018. Lives in [place], alone but has supportive family. PT/OT/RT recommend SNF. Appointments requested with [employer] and Cards. Preop testing 07/29/2018 08/03/2018 Overview: [facility] PRE-OP CHECK[facility] Surgeon: Jamie Jo M.D. Informed Consent Completed: yes STS Score: N/A CAD: No Is intended procedure a CABG: No - is a beta jhon ordered? Previously prescribed H & P completed: Yes PA/LAT: Completed CT: Completed MRI: N/A LE US: N/A Cath: Yes (outside images on syngo)- reviewed: No Echo:Completed EKG: Completed EF %: 65 PI's: N/A Carotid: N/A Mapping: N/A Dental: Completed (edentulous) PFT's: Completed Recent Labs 07/29/18 0746 WBC 8.47 HB 12.8 HCT 41.4 PLT 294 INR 1.1 CREAT 1.33* UA: results pending HCG:N/A ABO/ABO Confirmed: Yes Blood ordered: No SA Swab: Yes - results: Pending Last Dose of Anticoagulation: Last dose of Coumadin on 07/24 Op Note: N/A Pacemaker Check: N/A Implants: no Consults: 07/15 - Pulmonary -Aaliyah Stone PA-C RE: COPD Continue current maintenance Rx at this time. Will re-assess after cardiac surgery. Based on oximetry today, you do not require supplemental oxygen with rest or exertion. Will obtain nocturnal oxygen from [employer]. Continue rescue inhaler as needed for relief of shortness of breath or wheezing, up to 4 times daily. Re-assess in 3 months, sooner if needed. 06/14/18: Hematology - Maria Isabel Tay MD RE: Small cell Lymphoma (in remission) - Continued observation and repeat CT chest abdomen pelvis in 3 months - proceed with valvular heart surgery and follow with cardiology. - Continue Coumadin. - repeat CBC, CMP, LDH, immunofixation & OV in 3 months. DM: No Cardiac Surgical prep: DR. JO AWARE OF ELEVATED CREATININE SIGNATURE: Bell Johnson APRN.PRODUCT SAFETY ENGINEER CHECKED BY: LEE ANN DATE of SERVICE: 07/29/2018 TIME of SERVICE: 8:22 AM Encounter for preoperative a nesthesiology assessment for cardiac surgery 07/29/2018 08/29/2021 Bone metastasis 10/13/2017 08/29/2021 Overview: Added automatically from request for surgery [id number] Hypoxemia 05/20/2017 08/03/2018 Overview: Requiring HF O2 after extubation A/p Begin diuresis and oob to chair, wean O2 as able. 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 Lopez follows for benign tumor removed 2002 Closed fracture of lateral malleolus 11/25/2005 09/05/2008 IBS (irritable bowel syndrome) 1 Overview: with diarrhea and urgency Chronic heart failure with p reserved ejection fraction (HFpEF) 08/29/2021 Persistent atrial fibrillation 1 documented as of this encounter (statuses as of 08/05/2022) [facility]09[facility]2018 History of Past illness Narrative* Problem Noted Date Resolved Date Hypervolemia 08/01/2018 08/03/2018 Overview: A/p Edema noted on exam and CXR. Begin diuresis and monitor closely RADHA (acute kidney injury) 08/01/20182017 Overview: History: Post-operative. Assessment: BUN/Cr normalizing Plan: Avoid hypotension. Renally dose medications Cardiac insufficiency 07/30/2018 07/31/2018 Overview: A/p Cardiac insuffiencey requiring epi, titrate for UO & monitor CVP On mechanically assisted ventilation 07/30/2018 07/31/2018 Overview: Grade 1 Airway A/p WTE Postoperative pain 07/30/2018 08/03/2018 Overview: A/p Controlled with WELD TECHNICIAN fentanyl, scheduled lidoderm patches and tyenol, prn oxycodone Stress hyperglycemia 07/30/2018 08/05/2018 Overview: Continue SS. Hypovolemia/fluctuating lacic acidosis 8 08/02/2018 Overview: A/p albumin given x1 Discharge planning issues 07/29/20182020 Overview: Discharge to SNF 08.06.2018. Lives in [facility], alone but has supportive family. PT/OT/RT recommend SNF. Appointments requested with [employer] and Cards. Preop testing 07/29/2018 08/03/2018 Overview: [facility] PRE-OP CHECKLIST Surgeon: Jamie Jo M.D. Informed Consent Completed: yes STS Score: N/A CAD: No Is intended procedure a CABG: No - is a beta jhon ordered? Previously prescribed H & P completed: Yes PA/LAT: Completed CT: Completed MRI: N/A LE US: N/A Cath: Yes (outside images on [employer]ngo)- reviewed: No Echo:Completed EKG: Completed EF %: 65 PI's: N/A Carotid: N/A Mapping: N/A Dental: Completed (edentulous) PFT's: Completed Recent Labs 07/29/18 0746 WBC 8.47 HB 12.8 HCT 41.4 PLT 294 INR 1.1 CREAT 1.33* UA: results pending HCG:N/A ABO/ABO Confirmed: Yes Blood ordered: No SA Swab: Yes - results: Pending Last Dose of Anticoagulation: Last dose of Coumadin on 07/24 Op Note: N/A Pacemaker Check: N/A Implants: no Consults: 07/15 - Pulmonary -Aaliyah Stone PA-C RE: COPD Continue current maintenance Rx at this time. Will re-assess after cardiac surgery. Based on oximetry today, you do not require supplemental oxygen with rest or exertion. Will obtain nocturnal oxygen from [employer]. Continue rescue inhaler as needed for relief of shortness of breath or wheezing, up to 4 times daily. Re-assess in 3 months, sooner if needed. 06/14/18: Hematology - Maria Isabel Tay MD RE: Small cell Lymphoma (in remission) - Continued observation and repeat CT chest abdomen pelvis in 3 months - proceed with valvular heart surgery and follow with cardiology. - Continue Coumadin. - repeat CBC, CMP, LDH, immunofixation & OV in 3 months. DM: No Cardiac Surgical prep: DR. JO AWARE OF ELEVATED CREATININE SIGNATURE: Bell Johnson APRN.PRODUCT SAFETY ENGINEER CHECKED BY: LEE ANN DATE of SERVICE: 07/29/2018 TIME of SERVICE: 8:22 AM Encounter for preoperative a nesthesiology assessment for cardiac surgery 07/29/2018 08/29/2021 Bone metastasis 10/13/2017 08/29/2021 Overview: Added automatically from request for surgery [id number] Hypoxemia 05/20/2017 08/03/2018 Overview: Requiring HF O2 after extubation A/p Begin diuresis and oob to chair, wean O2 as able. 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 Lopez follows for benign tumor removed 2002 Closed fracture of lateral malleolus 11/25/2005 09/05/2008 IBS (irritable bowel syndrome) 1 Overview: with diarrhea and urgency Chronic heart failure with p reserved ejection fraction (HFpEF) 08/29/2021 Persistent atrial fibrillation 1 documented as of this encounter (statuses as of 08/13/2022) [facility]2018 History of Past illness Narrative* Problem Noted Date Resolved Date Hypervolemia 08/01/2018 08/03/2018 Overview: A/p Edema noted on exam and CXR. Begin diuresis and monitor closely RADHA (acute kidney injury) 08/01/20182017 Overview: History: Post-operative. Assessment: BUN/Cr normalizing Plan: Avoid hypotension. Renally dose medications Cardiac insufficiency 07/30/2018 07/31/2018 Overview: A/p Cardiac insuffiencey requiring epi, titrate for UO & monitor CVP On mechanically assisted ventilation 07/30/2018 07/31/2018 Overview: Grade 1 Airway A/p WTE Postoperative pain 07/30/2018 08/03/2018 Overview: A/p Controlled with WELD TECHNICIAN fentanyl, scheduled lidoderm patches and tyenol, prn oxycodone Stress hyperglycemia 07/30/2018 08/05/2018 Overview: Continue SS. Hypovolemia/fluctuating lacic acidosis 8 08/02/2018 Overview: A/p albumin given x1 Discharge planning issues 07/29/20182020 Overview: Discharge to SNF 08.06.2018. Lives in [facility], alone but has supportive family. PT/OT/RT recommend SNF. Appointments requested with [employer] and Cards. Preop testing 07/29/2018 08/03/2018 Overview: [facility] PRE-OP CHECKLIST Surgeon: Jamie Jo M.D. Informed Consent Completed: yes STS Score: N/A CAD: No Is intended procedure a CABG: No - is a beta jhon ordered? Previously prescribed H & P completed: Yes PA/LAT: Completed CT: Completed MRI: N/A LE US: N/A Cath: Yes (outside images on syngo)- reviewed: No Echo:Completed EKG: Completed EF %: 65 PI's: N/A Carotid: N/A Mapping: N/A Dental: Completed (edentulous) PFT's: Completed Recent Labs 07/29/18 0746 WBC 8.47 HB 12.8 HCT 41.4 PLT 294 INR 1.1 CREAT 1.33* UA: results pending HCG:N/A ABO/ABO Confirmed: Yes Blood ordered: No SA Swab: Yes - results: Pending Last Dose of Anticoagulation: Last dose of Coumadin on 07/24 Op Note: N/A Pacemaker Check: N/A Implants: no Consults: 07/15 - Pulmonary -Aaliyah Stone PA-C RE: COPD Continue current maintenance Rx at this time. Will re-assess after cardiac surgery. Based on oximetry today, you do not require supplemental oxygen with rest or exertion. Will obtain nocturnal oxygen from [employer]. Continue rescue inhaler as needed for relief of shortness of breath or wheezing, up to 4 times daily. Re-assess in 3 months, sooner if needed. 06/14/18: Hematology - Maria Isabel Tay MD RE: Small cell Lymphoma (in remission) - Continued observation and repeat CT chest abdomen pelvis in 3 months - proceed with valvular heart surgery and follow with cardiology. - Continue Coumadin. - repeat CBC, CMP, LDH, immunofixation & OV in 3 months. DM: No Cardiac Surgical prep: DR. JO AWARE OF ELEVATED CREATININE SIGNATURE: Bell Johnson APRN.PRODUCT SAFETY ENGINEER CHECKED BY: LEE ANN DATE of SERVICE: 07/29/2018 TIME of SERVICE: 8:22 AM Encounter for preoperative a nesthesiology assessment for cardiac surgery 07/29/2018 08/29/2021 Bone metastasis 10/13/2017 08/29/2021 Overview: Added automatically from request for surgery [id number] Hypoxemia 05/20/2017 08/03/2018 Overview: Requiring HF O2 after extubation A/p Begin diuresis and oob to chair, wean O2 as able. 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 Lopez follows for benign tumor removed 2002 Closed fracture of lateral malleolus 11/25/2005 09/05/2008 IBS (irritable bowel syndrome) 1 Overview: with diarrhea and urgency Chronic heart failure with p reserved ejection fraction (HFpEF) 08/29/2021 Persistent atrial fibrillation 1 documented as of this encounter (statuses as of 08/15/2022) [facility] History of Past illness Narrative* Problem Noted Date Resolved Date Hypervolemia 08/01/2018 08/03/2018 Overview: A/p Edema noted on exam and CXR. Begin diuresis and monitor closely RADHA (acute kidney injury) 08/01/20182017 Overview: History: Post-operative. Assessment: BUN/Cr normalizing Plan: Avoid hypotension. Renally dose medications Cardiac insufficiency 07/30/2018 07/31/2018 Overview: A/p Cardiac insuffiencey requiring epi, titrate for UO & monitor CVP On mechanically assisted ventilation 07/30/2018 07/31/2018 Overview: Grade 1 Airway A/p WTE Postoperative pain 07/30/2018 08/03/2018 Overview: A/p Controlled with WELD TECHNICIAN fentanyl, scheduled lidoderm patches and tyenol, prn oxycodone Stress hyperglycemia 07/30/2018 08/05/2018 Overview: Continue SS. Hypovolemia/fluctuating lacic acidosis 8 08/02/2018 Overview: A/p albumin given x1 Discharge planning issues 07/29/20182020 Overview: Discharge to SNF 08.06.2018. Lives in [facility], alone but has supportive family. PT/OT/RT recommend SNF. Appointments requested with [employer] and Cards. Preop testing 07/29/2018 08/03/2018 Overview: [facility] Surgeon: Jamie Jo M.D. Informed Consent Completed: yes STS Score: N/A CAD: No Is intended procedure a CABG: No - is a beta jhon ordered? Previously prescribed H & P completed: Yes PA/LAT: Completed CT: Completed MRI: N/A LE US: N/A Cath: Yes (outside images on syngo)- reviewed: No Echo:Completed EKG: Completed EF %: 65 PI's: N/A Carotid: N/A Mapping: N/A Dental: Completed (edentulous) PFT's: Completed Recent Labs 07/29/18 0746 WBC 8.47 HB 12.8 HCT 41.4 PLT 294 INR 1.1 CREAT 1.33* UA: results pending HCG:N/A ABO/ABO Confirmed: Yes Blood ordered: No SA Swab: Yes - results: Pending Last Dose of Anticoagulation: Last dose of Coumadin on 07/24 Op Note: N/A Pacemaker Check: N/A Implants: no Consults: 07/15 - Pulmonary -Aaliyah Stone PA-C RE: COPD Continue current maintenance Rx at this time. Will re-assess after cardiac surgery. Based on oximetry today, you do not require supplemental oxygen with rest or exertion. Will obtain nocturnal oxygen from [employer]. Continue rescue inhaler as needed for relief of shortness of breath or wheezing, up to 4 times daily. Re-assess in 3 months, sooner if needed. 06/14/18: Hematology - Maria Isabel Tay MD RE: Small cell Lymphoma (in remission) - Continued observation and repeat CT chest abdomen pelvis in 3 months - proceed with valvular heart surgery and follow with cardiology. - Continue Coumadin. - repeat CBC, CMP, LDH, immunofixation & OV in 3 months. DM: No Cardiac Surgical prep: DR. JO AWARE OF ELEVATED CREATININE SIGNATURE: Bell Johnson APRN.PRODUCT SAFETY ENGINEER CHECKED BY: LEE ANN DATE of SERVICE: 07/29/2018 TIME of SERVICE: 8:22 AM Encounter for preoperative a nesthesiology assessment for cardiac surgery 07/29/2018 08/29/2021 Bone metastasis 10/13/2017 08/29/2021 Overview: Added automatically from request for surgery [id number] Hypoxemia 05/20/2017 08/03/2018 Overview: Requiring HF O2 after extubation A/p Begin diuresis and oob to chair, wean O2 as able. 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 Lopez follows for benign tumor removed 2002 Closed fracture of lateral malleolus 11/25/2005 09/05/2008 IBS (irritable bowel syndrome) 1 Overview: with diarrhea and urgency Chronic heart failure with p reserved ejection fraction (HFpEF) 08/29/2021 Persistent atrial fibrillation 1 documented as of this encounter (statuses as of 08/22/2022) [facility]09-30-2018 History of Past illness Narrative* Problem Noted Date Resolved Date Hypervolemia 08/01/2018 08/03/2018 Overview: A/p Edema noted on exam and CXR. Begin diuresis and monitor closely RADHA (acute kidney injury) 08/01/20182017 Overview: History: Post-operative. Assessment: BUN/Cr normalizing Plan: Avoid hypotension. Renally dose medications Cardiac insufficiency 07/30/2018 07/31/2018 Overview: A/p Cardiac insuffiencey requiring epi, titrate for UO & monitor CVP On mechanically assisted ventilation 07/30/2018 07/31/2018 Overview: Grade 1 Airway A/p WTE Postoperative pain 07/30/2018 08/03/2018 Overview: A/p Controlled with WELD TECHNICIAN fentanyl, scheduled lidoderm patches and tyenol, prn oxycodone Stress hyperglycemia 07/30/2018 08/05/2018 Overview: Continue SS. Hypovolemia/fluctuating lacic acidosis 8 08/02/2018 Overview: A/p albumin given x1 Discharge planning issues 07/29/20182020 Overview: Discharge to SNF 08.06.2018. Lives in [facility], alone but has supportive family. PT/OT/RT recommend SNF. Appointments requested with [employer] and Cards. Preop testing 07/29/2018 08/03/2018 Overview: [facility] PRE-[facility] Surgeon: Jamie Jo M.D. Informed Consent Completed: yes STS Score: N/A CAD: No Is intended procedure a CABG: No - is a beta jhon ordered? Previously prescribed H & P completed: Yes PA/LAT: Completed CT: Completed MRI: N/A LE US: N/A Cath: Yes (outside images on syngo)- reviewed: No Echo:Completed EKG: Completed EF %: 65 PI's: N/A Carotid: N/A Mapping: N/A Dental: Completed (edentulous) PFT's: Completed Recent Labs 07/29/18 0746 WBC 8.47 HB 12.8 HCT 41.4 PLT 294 INR 1.1 CREAT 1.33* UA: results pending HCG:N/A ABO/ABO Confirmed: Yes Blood ordered: No SA Swab: Yes - results: Pending Last Dose of Anticoagulation: Last dose of Coumadin on 07/24 Op Note: N/A Pacemaker Check: N/A Implants: no Consults: 07/15 - Pulmonary -Aaliyah Stone PA-C RE: COPD Continue current maintenance Rx at this time. Will re-assess after cardiac surgery. Based on oximetry today, you do not require supplemental oxygen with rest or exertion. Will obtain nocturnal oxygen from [employer]. Continue rescue inhaler as needed for relief of shortness of breath or wheezing, up to 4 times daily. Re-assess in 3 months, sooner if needed. 06/14/18: Hematology - Maria Isabel Tay MD RE: Small cell Lymphoma (in remission) - Continued observation and repeat CT chest abdomen pelvis in 3 months - proceed with valvular heart surgery and follow with cardiology. - Continue Coumadin. - repeat CBC, CMP, LDH, immunofixation & OV in 3 months. DM: No Cardiac Surgical prep: DR. JO AWARE OF ELEVATED CREATININE SIGNATURE: Bell Johnson APRN.PRODUCT SAFETY ENGINEER CHECKED BY: LEE ANN DATE of SERVICE: 07/29/2018 TIME of SERVICE: 8:22 AM Encounter for preoperative a nesthesiology assessment for cardiac surgery 07/29/2018 08/29/2021 Bone metastasis 10/13/2017 08/29/2021 Overview: Added automatically from request for surgery [id number] Hypoxemia 05/20/2017 08/03/2018 Overview: Requiring HF O2 after extubation A/p Begin diuresis and oob to chair, wean O2 as able. 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 Lopez follows for benign tumor removed 2002 Closed fracture of lateral malleolus 11/25/2005 09/05/2008 IBS (irritable bowel syndrome) 1 Overview: with diarrhea and urgency Chronic heart failure with p reserved ejection fraction (HFpEF) 08/29/2021 Persistent atrial fibrillation 1 documented as of this encounter (statuses as of 08/25/2022) [facility]09-30-2018 History of Past illness Narrative* Problem Noted Date Resolved Date Hypervolemia 08/01/2018 08/03/2018 Overview: A/p Edema noted on exam and CXR. Begin diuresis and monitor closely RADHA (acute kidney injury) 08/01/20182017 Overview: History: Post-operative. Assessment: BUN/Cr normalizing Plan: Avoid hypotension. Renally dose medications Cardiac insufficiency 07/30/2018 07/31/2018 Overview: A/p Cardiac insuffiencey requiring epi, titrate for UO & monitor CVP On mechanically assisted ventilation 07/30/2018 07/31/2018 Overview: Grade 1 Airway A/p WTE Postoperative pain 07/30/2018 08/03/2018 Overview: A/p Controlled with WELD TECHNICIAN fentanyl, scheduled lidoderm patches and tyenol, prn oxycodone Stress hyperglycemia 07/30/2018 08/05/2018 Overview: Continue SS. Hypovolemia/fluctuating lacic acidosis 8 08/02/2018 Overview: A/p albumin given x1 Discharge planning issues 07/29/20182020 Overview: Discharge to SNF 08.06.2018. Lives in [facility], alone but has supportive family. PT/OT/RT recommend SNF. Appointments requested with [employer] and Cards. Preop testing 07/29/2018 08/03/2018 Overview: [facility] PRE-OP [facility] Surgeon: Jamie Jo M.D. Informed Consent Completed: yes STS Score: N/A CAD: No Is intended procedure a CABG: No - is a beta jhon ordered? Previously prescribed H & P completed: Yes PA/LAT: Completed CT: Completed MRI: N/A LE US: N/A Cath: Yes (outside images on syngo)- reviewed: No Echo:Completed EKG: Completed EF %: 65 PI's: N/A Carotid: N/A Mapping: N/A Dental: Completed (edentulous) PFT's: Completed Recent Labs 07/29/18 0746 WBC 8.47 HB 12.8 HCT 41.4 PLT 294 INR 1.1 CREAT 1.33* UA: results pending HCG:N/A ABO/ABO Confirmed: Yes Blood ordered: No SA Swab: Yes - results: Pending Last Dose of Anticoagulation: Last dose of Coumadin on 07/24 Op Note: N/A Pacemaker Check: N/A Implants: no Consults: 07/15 - Pulmonary -Aaliyah Stone PA-C RE: COPD Continue current maintenance Rx at this time. Will re-assess after cardiac surgery. Based on oximetry today, you do not require supplemental oxygen with rest or exertion. Will obtain nocturnal oxygen from [employer]. Continue rescue inhaler as needed for relief of shortness of breath or wheezing, up to 4 times daily. Re-assess in 3 months, sooner if needed. 06/14/18: Hematology - Maria Isabel Tay MD RE: Small cell Lymphoma (in remission) - Continued observation and repeat CT chest abdomen pelvis in 3 months - proceed with valvular heart surgery and follow with cardiology. - Continue Coumadin. - repeat CBC, CMP, LDH, immunofixation & OV in 3 months. DM: No Cardiac Surgical prep: DR. JO AWARE OF ELEVATED CREATININE SIGNATURE: Bell Johnson APRN.PRODUCT SAFETY ENGINEER CHECKED BY: LEE ANN DATE of SERVICE: 07/29/2018 TIME of SERVICE: 8:22 AM Encounter for preoperative a nesthesiology assessment for cardiac surgery 07/29/2018 08/29/2021 Bone metastasis 10/13/2017 08/29/2021 Overview: Added automatically from request for surgery [id number] Hypoxemia 05/20/2017 08/03/2018 Overview: Requiring HF O2 after extubation A/p Begin diuresis and oob to chair, wean O2 as able. 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 Lopez follows for benign tumor removed 2002 Closed fracture of lateral malleolus 11/25/2005 09/05/2008 IBS (irritable bowel syndrome) 1 Overview: with diarrhea and urgency Chronic heart failure with p reserved ejection fraction (HFpEF) 08/29/2021 Persistent atrial fibrillation 1 documented as of this encounter (statuses as of 08/28/2022) [facility]09-30-2018 History of Past illness Narrative* Problem Noted Date Resolved Date Hypervolemia 08/01/2018 08/03/2018 Overview: A/p Edema noted on exam and CXR. Begin diuresis and monitor closely RADHA (acute kidney injury) 08/01/20182017 Overview: History: Post-operative. Assessment: BUN/Cr normalizing Plan: Avoid hypotension. Renally dose medications Cardiac insufficiency 07/30/2018 07/31/2018 Overview: A/p Cardiac insuffiencey requiring epi, titrate for UO & monitor CVP On mechanically assisted ventilation 07/30/2018 07/31/2018 Overview: Grade 1 Airway A/p WTE Postoperative pain 07/30/2018 08/03/2018 Overview: A/p Controlled with WELD TECHNICIAN fentanyl, scheduled lidoderm patches and tyenol, prn oxycodone Stress hyperglycemia 07/30/2018 08/05/2018 Overview: Continue SS. Hypovolemia/fluctuating lacic acidosis 8 08/02/2018 Overview: A/p albumin given x1 Discharge planning issues 07/29/20182020 Overview: Discharge to SNF 08.06.2018. Lives in [facility], alone but has supportive family. PT/OT/RT recommend SNF. Appointments requested with [employer] and Cards. Preop testing 07/29/2018 08/03/2018 Overview: [facility] PRE-OP [facility] Surgeon: Jamie Jo M.D. Informed Consent Completed: yes STS Score: N/A CAD: No Is intended procedure a CABG: No - is a beta jhon ordered? Previously prescribed H & P completed: Yes PA/LAT: Completed CT: Completed MRI: N/A LE US: N/A Cath: Yes (outside images on syngo)- reviewed: No Echo:Completed EKG: Completed EF %: 65 PI's: N/A Carotid: N/A Mapping: N/A Dental: Completed (edentulous) PFT's: Completed Recent Labs 07/29/18 0746 WBC 8.47 HB 12.8 HCT 41.4 PLT 294 INR 1.1 CREAT 1.33* UA: results pending HCG:N/A ABO/ABO Confirmed: Yes Blood ordered: No SA Swab: Yes - results: Pending Last Dose of Anticoagulation: Last dose of Coumadin on 07/24 Op Note: N/A Pacemaker Check: N/A Implants: no Consults: 07/15 - Pulmonary -Aaliyah Stone PA-C RE: COPD Continue current maintenance Rx at this time. Will re-assess after cardiac surgery. Based on oximetry today, you do not require supplemental oxygen with rest or exertion. Will obtain nocturnal oxygen from [employer]. Continue rescue inhaler as needed for relief of shortness of breath or wheezing, up to 4 times daily. Re-assess in 3 months, sooner if needed. 06/14/18: Hematology - Maria Isabel Tay MD RE: Small cell Lymphoma (in remission) - Continued observation and repeat CT chest abdomen pelvis in 3 months - proceed with valvular heart surgery and follow with cardiology. - Continue Coumadin. - repeat CBC, CMP, LDH, immunofixation & OV in 3 months. DM: No Cardiac Surgical prep: DR. JO AWARE OF ELEVATED CREATININE SIGNATURE: Bell Johnson APRN.PRODUCT SAFETY ENGINEER CHECKED BY: LEE ANN DATE of SERVICE: 07/29/2018 TIME of SERVICE: 8:22 AM Encounter for preoperative a nesthesiology assessment for cardiac surgery 07/29/2018 08/29/2021 Bone metastasis 10/13/2017 08/29/2021 Overview: Added automatically from request for surgery [id number] Hypoxemia 05/20/2017 08/03/2018 Overview: Requiring HF O2 after extubation A/p Begin diuresis and oob to chair, wean O2 as able. 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 Lopez follows for benign tumor removed 2002 Closed fracture of lateral malleolus 11/25/2005 09/05/2008 IBS (irritable bowel syndrome) 1 Overview: with diarrhea and urgency Chronic heart failure with p reserved ejection fraction (HFpEF) 08/29/2021 Persistent atrial fibrillation 1 documented as of this encounter (statuses as of 09/01/2022) [facility]09[facility]-2018 History of Past illness Narrative* Problem Noted Date Resolved Date Hypervolemia 08/01/2018 08/03/2018 Overview: A/p Edema noted on exam and CXR. Begin diuresis and monitor closely RADHA (acute kidney injury) 08/01/20182017 Overview: History: Post-operative. Assessment: BUN/Cr normalizing Plan: Avoid hypotension. Renally dose medications Cardiac insufficiency 07/30/2018 07/31/2018 Overview: A/p Cardiac insuffiencey requiring epi, titrate for UO & monitor CVP On mechanically assisted ventilation 07/30/2018 07/31/2018 Overview: Grade 1 Airway A/p WTE Postoperative pain 07/30/2018 08/03/2018 Overview: A/p Controlled with WELD TECHNICIAN fentanyl, scheduled lidoderm patches and tyenol, prn oxycodone Stress hyperglycemia 07/30/2018 08/05/2018 Overview: Continue SS. Hypovolemia/fluctuating lacic acidosis 8 08/02/2018 Overview: A/p albumin given x1 Discharge planning issues 07/29/20182020 Overview: Discharge to SNF 08.06.2018. Lives in [place], alone but has supportive family. PT/OT/RT recommend SNF. Appointments requested with [employer] and Cards. Preop testing 07/29/2018 08/03/2018 Overview: [facility] PRE-OP CHECKLIST Surgeon: Jamie Jo M.D. Informed Consent Completed: yes STS Score: N/A CAD: No Is intended procedure a CABG: No - is a beta jhon ordered? Previously prescribed H & P completed: Yes PA/LAT: Completed CT: Completed MRI: N/A LE US: N/A Cath: Yes (outside images on syngo)- reviewed: No Echo:Completed EKG: Completed EF %: 65 PI's: N/A Carotid: N/A Mapping: N/A Dental: Completed (edentulous) PFT's: Completed Recent Labs 07/29/18 0746 WBC 8.47 HB 12.8 HCT 41.4 PLT 294 INR 1.1 CREAT 1.33* UA: results pending HCG:N/A ABO/ABO Confirmed: Yes Blood ordered: No SA Swab: Yes - results: Pending Last Dose of Anticoagulation: Last dose of Coumadin on 07/24 Op Note: N/A Pacemaker Check: N/A Implants: no Consults: 07/15 - Pulmonary -Aaliyah Stone PA-C RE: COPD Continue current maintenance Rx at this time. Will re-assess after cardiac surgery. Based on oximetry today, you do not require supplemental oxygen with rest or exertion. Will obtain nocturnal oxygen from [employer]. Continue rescue inhaler as needed for relief of shortness of breath or wheezing, up to 4 times daily. Re-assess in 3 months, sooner if needed. 06/14/18: Hematology - Maria Isabel Tay MD RE: Small cell Lymphoma (in remission) - Continued observation and repeat CT chest abdomen pelvis in 3 months - proceed with valvular heart surgery and follow with cardiology. - Continue Coumadin. - repeat CBC, CMP, LDH, immunofixation & OV in 3 months. DM: No Cardiac Surgical prep: DR. JO AWARE OF ELEVATED CREATININE SIGNATURE: Bell Johnson APRN.PRODUCT SAFETY ENGINEER CHECKED BY: LEE ANN DATE of SERVICE: 07/29/2018 TIME of SERVICE: 8:22 AM Encounter for preoperative a nesthesiology assessment for cardiac surgery 07/29/2018 08/29/2021 Bone metastasis 10/13/2017 08/29/2021 Overview: Added automatically from request for surgery [id number] Hypoxemia 05/20/2017 08/03/2018 Overview: Requiring HF O2 after extubation A/p Begin diuresis and oob to chair, wean O2 as able. 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 Lopez follows for benign tumor removed 2002 Closed fracture of lateral malleolus 11/25/2005 09/05/2008 IBS (irritable bowel syndrome) 1 Overview: with diarrhea and urgency Chronic heart failure with p reserved ejection fraction (HFpEF) 08/29/2021 Persistent atrial fibrillation 1 documented as of this encounter (statuses as of 09/05/2022) [facility] History of Past illness Narrative* Problem Noted Date Resolved Date Hypervolemia 08/01/2018 08/03/2018 Overview: A/p Edema noted on exam and CXR. Begin diuresis and monitor closely RADHA (acute kidney injury) 08/01/20182017 Overview: History: Post-operative. Assessment: BUN/Cr normalizing Plan: Avoid hypotension. Renally dose medications Cardiac insufficiency 07/30/2018 07/31/2018 Overview: A/p Cardiac insuffiencey requiring epi, titrate for UO & monitor CVP On mechanically assisted ventilation 07/30/2018 07/31/2018 Overview: Grade 1 Airway A/p WTE Postoperative pain 07/30/2018 08/03/2018 Overview: A/p Controlled with WELD TECHNICIAN fentanyl, scheduled lidoderm patches and tyenol, prn oxycodone Stress hyperglycemia 07/30/2018 08/05/2018 Overview: Continue SS. Hypovolemia/fluctuating lacic acidosis 8 08/02/2018 Overview: A/p albumin given x1 Discharge planning issues 07/29/20182020 Overview: Discharge to SNF 08.06.2018. Lives in [facility], alone but has supportive family. PT/OT/RT recommend SNF. Appointments requested with [employer] and Cards. Preop testing 07/29/2018 08/03/2018 Overview: [facility] PRE-OP CHECKLIST Surgeon: Jamie Jo M.D. Informed Consent Completed: yes STS Score: N/A CAD: No Is intended procedure a CABG: No - is a beta jhon ordered? Previously prescribed H & P completed: Yes PA/LAT: Completed CT: Completed MRI: N/A LE US: N/A Cath: Yes (outside images on syngo)- reviewed: No Echo:Completed EKG: Completed EF %: 65 PI's: N/A Carotid: N/A Mapping: N/A Dental: Completed (edentulous) PFT's: Completed Recent Labs 07/29/18 0746 WBC 8.47 HB 12.8 HCT 41.4 PLT 294 INR 1.1 CREAT 1.33* UA: results pending HCG:N/A ABO/ABO Confirmed: Yes Blood ordered: No SA Swab: Yes - results: Pending Last Dose of Anticoagulation: Last dose of Coumadin on 07/24 Op Note: N/A Pacemaker Check: N/A Implants: no Consults: 07/15 - Pulmonary -Aaliyah Stone PA-C RE: COPD Continue current maintenance Rx at this time. Will re-assess after cardiac surgery. Based on oximetry today, you do not require supplemental oxygen with rest or exertion. Will obtain nocturnal oxygen from [employer]. Continue rescue inhaler as needed for relief of shortness of breath or wheezing, up to 4 times daily. Re-assess in 3 months, sooner if needed. 06/14/18: Hematology - Maria Isabel Tay MD RE: Small cell Lymphoma (in remission) - Continued observation and repeat CT chest abdomen pelvis in 3 months - proceed with valvular heart surgery and follow with cardiology. - Continue Coumadin. - repeat CBC, CMP, LDH, immunofixation & OV in 3 months. DM: No Cardiac Surgical prep: DR. JO AWARE OF ELEVATED CREATININE SIGNATURE: Bell Johnson APRN.PRODUCT SAFETY ENGINEER CHECKED BY: LEE ANN DATE of SERVICE: 07/29/2018 TIME of SERVICE: 8:22 AM Encounter for preoperative a nesthesiology assessment for cardiac surgery 07/29/2018 08/29/2021 Bone metastasis 10/13/2017 08/29/2021 Overview: Added automatically from request for surgery [id number] Hypoxemia 05/20/2017 08/03/2018 Overview: Requiring HF O2 after extubation A/p Begin diuresis and oob to chair, wean O2 as able. 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 Lopez follows for benign tumor removed 2002 Closed fracture of lateral malleolus 11/25/2005 09/05/2008 IBS (irritable bowel syndrome) 1 Overview: with diarrhea and urgency Chronic heart failure with p reserved ejection fraction (HFpEF) 08/29/2021 Persistent atrial fibrillation 1 documented as of this encounter (statuses as of 09/19/2022) [facility] History of Past illness Narrative* Problem Noted Date Resolved Date Hypervolemia 08/01/2018 08/03/2018 Overview: A/p Edema noted on exam and CXR. Begin diuresis and monitor closely RADHA (acute kidney injury) 08/01/20182017 Overview: History: Post-operative. Assessment: BUN/Cr normalizing Plan: Avoid hypotension. Renally dose medications Cardiac insufficiency 07/30/2018 07/31/2018 Overview: A/p Cardiac insuffiencey requiring epi, titrate for UO & monitor CVP On mechanically assisted ventilation 07/30/2018 07/31/2018 Overview: Grade 1 Airway A/p WTE Postoperative pain 07/30/2018 08/03/2018 Overview: A/p Controlled with WELD TECHNICIAN fentanyl, scheduled lidoderm patches and tyenol, prn oxycodone Stress hyperglycemia 07/30/2018 08/05/2018 Overview: Continue SS. Hypovolemia/fluctuating lacic acidosis 8 08/02/2018 Overview: A/p albumin given x1 Discharge planning issues 07/29/20182020 Overview: Discharge to SNF 08.06.2018. Lives in [facility], alone but has supportive family. PT/OT/RT recommend SNF. Appointments requested with [employer] and Cards. Preop testing 07/29/2018 08/03/2018 Overview: [facility] Surgeon: Jamie Jo M.D. Informed Consent Completed: yes STS Score: N/A CAD: No Is intended procedure a CABG: No - is a beta jhon ordered? Previously prescribed H & P completed: Yes PA/LAT: Completed CT: Completed MRI: N/A LE US: N/A Cath: Yes (outside images on syngo)- reviewed: No Echo:Completed EKG: Completed EF %: 65 PI's: N/A Carotid: N/A Mapping: N/A Dental: Completed (edentulous) PFT's: Completed Recent Labs 07/29/18 0746 WBC 8.47 HB 12.8 HCT 41.4 PLT 294 INR 1.1 CREAT 1.33* UA: results pending HCG:N/A ABO/ABO Confirmed: Yes Blood ordered: No SA Swab: Yes - results: Pending Last Dose of Anticoagulation: Last dose of Coumadin on 07/24 Op Note: N/A Pacemaker Check: N/A Implants: no Consults: 07/15 - Pulmonary -Aaliyah Stone PA-C RE: COPD Continue current maintenance Rx at this time. Will re-assess after cardiac surgery. Based on oximetry today, you do not require supplemental oxygen with rest or exertion. Will obtain nocturnal oxygen from [employer]. Continue rescue inhaler as needed for relief of shortness of breath or wheezing, up to 4 times daily. Re-assess in 3 months, sooner if needed. 06/14/18: Hematology - Maria Isabel Tay MD RE: Small cell Lymphoma (in remission) - Continued observation and repeat CT chest abdomen pelvis in 3 months - proceed with valvular heart surgery and follow with cardiology. - Continue Coumadin. - repeat CBC, CMP, LDH, immunofixation & OV in 3 months. DM: No Cardiac Surgical prep: DR. JO AWARE OF ELEVATED CREATININE SIGNATURE: Bell Johnson APRN.PRODUCT SAFETY ENGINEER CHECKED BY: LEE ANN DATE of SERVICE: 07/29/2018 TIME of SERVICE: 8:22 AM Encounter for preoperative a nesthesiology assessment for cardiac surgery 07/29/2018 08/29/2021 Bone metastasis 10/13/2017 08/29/2021 Overview: Added automatically from request for surgery [id number] Hypoxemia 05/20/2017 08/03/2018 Overview: Requiring HF O2 after extubation A/p Begin diuresis and oob to chair, wean O2 as able. 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 Lopez follows for benign tumor removed 2002 Closed fracture of lateral malleolus 11/25/2005 09/05/2008 IBS (irritable bowel syndrome) 1 Overview: with diarrhea and urgency Chronic heart failure with p reserved ejection fraction (HFpEF) 08/29/2021 Persistent atrial fibrillation 1 documented as of this encounter (statuses as of 09/22/2022) [facility]09-30-2018 History of Past illness Narrative* Problem Noted Date Resolved Date Hypervolemia 08/01/2018 08/03/2018 Overview: A/p Edema noted on exam and CXR. Begin diuresis and monitor closely RADHA (acute kidney injury) 08/01/20182017 Overview: History: Post-operative. Assessment: BUN/Cr normalizing Plan: Avoid hypotension. Renally dose medications Cardiac insufficiency 07/30/2018 07/31/2018 Overview: A/p Cardiac insuffiencey requiring epi, titrate for UO & monitor CVP On mechanically assisted ventilation 07/30/2018 07/31/2018 Overview: Grade 1 Airway A/p WTE Postoperative pain 07/30/2018 08/03/2018 Overview: A/p Controlled with WELD TECHNICIAN fentanyl, scheduled lidoderm patches and tyenol, prn oxycodone Stress hyperglycemia 07/30/2018 08/05/2018 Overview: Continue SS. Hypovolemia/fluctuating lacic acidosis 8 08/02/2018 Overview: A/p albumin given x1 Discharge planning issues 07/29/20182020 Overview: Discharge to SNF 08.06.2018. Lives in [facility], alone but has supportive family. PT/OT/RT recommend SNF. Appointments requested with [employer] and Cards. Preop testing 07/29/2018 08/03/2018 Overview: [facility] PRE-OP [facility] Surgeon: Jamie Jo M.D. Informed Consent Completed: yes STS Score: N/A CAD: No Is intended procedure a CABG: No - is a beta jhon ordered? Previously prescribed H & P completed: Yes PA/LAT: Completed CT: Completed MRI: N/A LE US: N/A Cath: Yes (outside images on syngo)- reviewed: No Echo:Completed EKG: Completed EF %: 65 PI's: N/A Carotid: N/A Mapping: N/A Dental: Completed (edentulous) PFT's: Completed Recent Labs 07/29/18 0746 WBC 8.47 HB 12.8 HCT 41.4 PLT 294 INR 1.1 CREAT 1.33* UA: results pending HCG:N/A ABO/ABO Confirmed: Yes Blood ordered: No SA Swab: Yes - results: Pending Last Dose of Anticoagulation: Last dose of Coumadin on 07/24 Op Note: N/A Pacemaker Check: N/A Implants: no Consults: 07/15 - Pulmonary -Aaliyah Stone PA-C RE: COPD Continue current maintenance Rx at this time. Will re-assess after cardiac surgery. Based on oximetry today, you do not require supplemental oxygen with rest or exertion. Will obtain nocturnal oxygen from [employer]. Continue rescue inhaler as needed for relief of shortness of breath or wheezing, up to 4 times daily. Re-assess in 3 months, sooner if needed. 06/14/18: Hematology - Maria Isabel Tay MD RE: Small cell Lymphoma (in remission) - Continued observation and repeat CT chest abdomen pelvis in 3 months - proceed with valvular heart surgery and follow with cardiology. - Continue Coumadin. - repeat CBC, CMP, LDH, immunofixation & OV in 3 months. DM: No Cardiac Surgical prep: DR. JO AWARE OF ELEVATED CREATININE SIGNATURE: Bell Johnson APRN.PRODUCT SAFETY ENGINEER CHECKED BY: LEE ANN DATE of SERVICE: 07/29/2018 TIME of SERVICE: 8:22 AM Encounter for preoperative a nesthesiology assessment for cardiac surgery 07/29/2018 08/29/2021 Bone metastasis 10/13/2017 08/29/2021 Overview: Added automatically from request for surgery [id number] Hypoxemia 05/20/2017 08/03/2018 Overview: Requiring HF O2 after extubation A/p Begin diuresis and oob to chair, wean O2 as able. 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 Lopez follows for benign tumor removed 2002 Closed fracture of lateral malleolus 11/25/2005 09/05/2008 IBS (irritable bowel syndrome) 1 Overview: with diarrhea and urgency Chronic heart failure with p reserved ejection fraction (HFpEF) 08/29/2021 Persistent atrial fibrillation 1 documented as of this encounter (statuses as of 09/22/2022) [facility]09-30-2018 History of Past illness Narrative* Problem Noted Date Resolved Date Hypervolemia 08/01/2018 08/03/2018 Overview: A/p Edema noted on exam and CXR. Begin diuresis and monitor closely RADHA (acute kidney injury) 08/01/20182017 Overview: History: Post-operative. Assessment: BUN/Cr normalizing Plan: Avoid hypotension. Renally dose medications Cardiac insufficiency 07/30/2018 07/31/2018 Overview: A/p Cardiac insuffiencey requiring epi, titrate for UO & monitor CVP On mechanically assisted ventilation 07/30/2018 07/31/2018 Overview: Grade 1 Airway A/p WTE Postoperative pain 07/30/2018 08/03/2018 Overview: A/p Controlled with WELD TECHNICIAN fentanyl, scheduled lidoderm patches and tyenol, prn oxycodone Stress hyperglycemia 07/30/2018 08/05/2018 Overview: Continue SS. Hypovolemia/fluctuating lacic acidosis 8 08/02/2018 Overview: A/p albumin given x1 Discharge planning issues 07/29/20182020 Overview: Discharge to SNF 08.06.2018. Lives in [facility], alone but has supportive family. PT/OT/RT recommend SNF. Appointments requested with [employer] and Cards. Preop testing 07/29/2018 08/03/2018 Overview: [facility] PRE-OP [facility] Surgeon: Jamie Jo M.D. Informed Consent Completed: yes STS Score: N/A CAD: No Is intended procedure a CABG: No - is a beta jhon ordered? Previously prescribed H & P completed: Yes PA/LAT: Completed CT: Completed MRI: N/A LE US: N/A Cath: Yes (outside images on syngo)- reviewed: No Echo:Completed EKG: Completed EF %: 65 PI's: N/A Carotid: N/A Mapping: N/A Dental: Completed (edentulous) PFT's: Completed Recent Labs 07/29/18 0746 WBC 8.47 HB 12.8 HCT 41.4 PLT 294 INR 1.1 CREAT 1.33* UA: results pending HCG:N/A ABO/ABO Confirmed: Yes Blood ordered: No SA Swab: Yes - results: Pending Last Dose of Anticoagulation: Last dose of Coumadin on 07/24 Op Note: N/A Pacemaker Check: N/A Implants: no Consults: 07/15 - Pulmonary -Aaliyah Stone PA-C RE: COPD Continue current maintenance Rx at this time. Will re-assess after cardiac surgery. Based on oximetry today, you do not require supplemental oxygen with rest or exertion. Will obtain nocturnal oxygen from [employer]. Continue rescue inhaler as needed for relief of shortness of breath or wheezing, up to 4 times daily. Re-assess in 3 months, sooner if needed. 06/14/18: Hematology - Maria Isabel Tay MD RE: Small cell Lymphoma (in remission) - Continued observation and repeat CT chest abdomen pelvis in 3 months - proceed with valvular heart surgery and follow with cardiology. - Continue Coumadin. - repeat CBC, CMP, LDH, immunofixation & OV in 3 months. DM: No Cardiac Surgical prep: DR. JO AWARE OF ELEVATED CREATININE SIGNATURE: Bell Johnson APRN.PRODUCT SAFETY ENGINEER CHECKED BY: LEE ANN DATE of SERVICE: 07/29/2018 TIME of SERVICE: 8:22 AM Encounter for preoperative a nesthesiology assessment for cardiac surgery 07/29/2018 08/29/2021 Bone metastasis 10/13/2017 08/29/2021 Overview: Added automatically from request for surgery [id number] Hypoxemia 05/20/2017 08/03/2018 Overview: Requiring HF O2 after extubation A/p Begin diuresis and oob to chair, wean O2 as able. 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 Lopez follows for benign tumor removed 2002 Closed fracture of lateral malleolus 11/25/2005 09/05/2008 IBS (irritable bowel syndrome) 1 Overview: with diarrhea and urgency Chronic heart failure with p reserved ejection fraction (HFpEF) 08/29/2021 Persistent atrial fibrillation 1 documented as of this encounter (statuses as of 10/03/2022) [facility]09-30-2018 History of Past illness Narrative* Problem Noted Date Resolved Date Hypervolemia 08/01/2018 08/03/2018 Overview: A/p Edema noted on exam and CXR. Begin diuresis and monitor closely RADHA (acute kidney injury) 08/01/20182017 Overview: History: Post-operative. Assessment: BUN/Cr normalizing Plan: Avoid hypotension. Renally dose medications Cardiac insufficiency 07/30/2018 07/31/2018 Overview: A/p Cardiac insuffiencey requiring epi, titrate for UO & monitor CVP On mechanically assisted ventilation 07/30/2018 07/31/2018 Overview: Grade 1 Airway A/p WTE Postoperative pain 07/30/2018 08/03/2018 Overview: A/p Controlled with WELD TECHNICIAN fentanyl, scheduled lidoderm patches and tyenol, prn oxycodone Stress hyperglycemia 07/30/2018 08/05/2018 Overview: Continue SS. Hypovolemia/fluctuating lacic acidosis 8 08/02/2018 Overview: A/p albumin given x1 Discharge planning issues 07/29/20182020 Overview: Discharge to SNF 08.06.2018. Lives in [facility], alone but has supportive family. PT/OT/RT recommend SNF. Appointments requested with [employer] and Cards. Preop testing 07/29/2018 08/03/2018 Overview: [facility] PRE-OP CHECK[facility] Surgeon: Jamie Jo M.D. Informed Consent Completed: yes STS Score: N/A CAD: No Is intended procedure a CABG: No - is a beta jhon ordered? Previously prescribed H & P completed: Yes PA/LAT: Completed CT: Completed MRI: N/A LE US: N/A Cath: Yes (outside images on syngo)- reviewed: No Echo:Completed EKG: Completed EF %: 65 PI's: N/A Carotid: N/A Mapping: N/A Dental: Completed (edentulous) PFT's: Completed Recent Labs 07/29/18 0746 WBC 8.47 HB 12.8 HCT 41.4 PLT 294 INR 1.1 CREAT 1.33* UA: results pending HCG:N/A ABO/ABO Confirmed: Yes Blood ordered: No SA Swab: Yes - results: Pending Last Dose of Anticoagulation: Last dose of Coumadin on 07/24 Op Note: N/A Pacemaker Check: N/A Implants: no Consults: 07/15 - Pulmonary -Aaliyah Stone PA-C RE: COPD Continue current maintenance Rx at this time. Will re-assess after cardiac surgery. Based on oximetry today, you do not require supplemental oxygen with rest or exertion. Will obtain nocturnal oxygen from [employer]. Continue rescue inhaler as needed for relief of shortness of breath or wheezing, up to 4 times daily. Re-assess in 3 months, sooner if needed. 06/14/18: Hematology - Maria Isabel Tay MD RE: Small cell Lymphoma (in remission) - Continued observation and repeat CT chest abdomen pelvis in 3 months - proceed with valvular heart surgery and follow with cardiology. - Continue Coumadin. - repeat CBC, CMP, LDH, immunofixation & OV in 3 months. DM: No Cardiac Surgical prep: DR. JO AWARE OF ELEVATED CREATININE SIGNATURE: Bell Johnson APRN.PRODUCT SAFETY ENGINEER CHECKED BY: LEE ANN DATE of SERVICE: 07/29/2018 TIME of SERVICE: 8:22 AM Encounter for preoperative a nesthesiology assessment for cardiac surgery 07/29/2018 08/29/2021 Bone metastasis 10/13/2017 08/29/2021 Overview: Added automatically from request for surgery [id number] Hypoxemia 05/20/2017 08/03/2018 Overview: Requiring HF O2 after extubation A/p Begin diuresis and oob to chair, wean O2 as able. 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 Lopez follows for benign tumor removed 2002 Closed fracture of lateral malleolus 11/25/2005 09/05/2008 IBS (irritable bowel syndrome) 1 Overview: with diarrhea and urgency Chronic heart failure with p reserved ejection fraction (HFpEF) 08/29/2021 Persistent atrial fibrillation 1 documented as of this encounter (statuses as of 10/07/2022) [facility]09[facility]-2018 History of Past illness Narrative* Problem Noted Date Resolved Date Hypervolemia 08/01/2018 08/03/2018 Overview: A/p Edema noted on exam and CXR. Begin diuresis and monitor closely RADHA (acute kidney injury) 08/01/20182017 Overview: History: Post-operative. Assessment: BUN/Cr normalizing Plan: Avoid hypotension. Renally dose medications Cardiac insufficiency 07/30/2018 07/31/2018 Overview: A/p Cardiac insuffiencey requiring epi, titrate for UO & monitor CVP On mechanically assisted ventilation 07/30/2018 07/31/2018 Overview: Grade 1 Airway A/p WTE Postoperative pain 07/30/2018 08/03/2018 Overview: A/p Controlled with WELD TECHNICIAN fentanyl, scheduled lidoderm patches and tyenol, prn oxycodone Stress hyperglycemia 07/30/2018 08/05/2018 Overview: Continue SS. Hypovolemia/fluctuating lacic acidosis 8 08/02/2018 Overview: A/p albumin given x1 Discharge planning issues 07/29/20182020 Overview: Discharge to SNF 08.06.2018. Lives in [facility], alone but has supportive family. PT/OT/RT recommend SNF. Appointments requested with [employer] and Cards. Preop testing 07/29/2018 08/03/2018 Overview: [facility] PRE-OP CHECKLIST Surgeon: Jamie Jo M.D. Informed Consent Completed: yes STS Score: N/A CAD: No Is intended procedure a CABG: No - is a beta jhon ordered? Previously prescribed H & P completed: Yes PA/LAT: Completed CT: Completed MRI: N/A LE US: N/A Cath: Yes (outside images on syngo)- reviewed: No Echo:Completed EKG: Completed EF %: 65 PI's: N/A Carotid: N/A Mapping: N/A Dental: Completed (edentulous) PFT's: Completed Recent Labs 07/29/18 0746 WBC 8.47 HB 12.8 HCT 41.4 PLT 294 INR 1.1 CREAT 1.33* UA: results pending HCG:N/A ABO/ABO Confirmed: Yes Blood ordered: No SA Swab: Yes - results: Pending Last Dose of Anticoagulation: Last dose of Coumadin on 07/24 Op Note: N/A Pacemaker Check: N/A Implants: no Consults: 07/15 - Pulmonary -Aaliyah Stone PA-C RE: COPD Continue current maintenance Rx at this time. Will re-assess after cardiac surgery. Based on oximetry today, you do not require supplemental oxygen with rest or exertion. Will obtain nocturnal oxygen from [employer]. Continue rescue inhaler as needed for relief of shortness of breath or wheezing, up to 4 times daily. Re-assess in 3 months, sooner if needed. 06/14/18: Hematology - Maria Isabel Tay MD RE: Small cell Lymphoma (in remission) - Continued observation and repeat CT chest abdomen pelvis in 3 months - proceed with valvular heart surgery and follow with cardiology. - Continue Coumadin. - repeat CBC, CMP, LDH, immunofixation & OV in 3 months. DM: No Cardiac Surgical prep: DR. JO AWARE OF ELEVATED CREATININE SIGNATURE: Bell Johnson APRN.PRODUCT SAFETY ENGINEER CHECKED BY: LEE ANN DATE of SERVICE: 07/29/2018 TIME of SERVICE: 8:22 AM Encounter for preoperative a nesthesiology assessment for cardiac surgery 07/29/2018 08/29/2021 Bone metastasis 10/13/2017 08/29/2021 Overview: Added automatically from request for surgery [id number] Hypoxemia 05/20/2017 08/03/2018 Overview: Requiring HF O2 after extubation A/p Begin diuresis and oob to chair, wean O2 as able. 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 Lopez follows for benign tumor removed 2002 Closed fracture of lateral malleolus 11/25/2005 09/05/2008 IBS (irritable bowel syndrome) 1 Overview: with diarrhea and urgency Chronic heart failure with p reserved ejection fraction (HFpEF) 08/29/2021 Persistent atrial fibrillation 1 documented as of this encounter (statuses as of 10/18/2022) [facility]09[facility]2018 History of Past illness Narrative* Problem Noted Date Resolved Date Hypervolemia 08/01/2018 08/03/2018 Overview: A/p Edema noted on exam and CXR. Begin diuresis and monitor closely RADHA (acute kidney injury) 08/01/20182017 Overview: History: Post-operative. Assessment: BUN/Cr normalizing Plan: Avoid hypotension. Renally dose medications Cardiac insufficiency 07/30/2018 07/31/2018 Overview: A/p Cardiac insuffiencey requiring epi, titrate for UO & monitor CVP On mechanically assisted ventilation 07/30/2018 07/31/2018 Overview: Grade 1 Airway A/p WTE Postoperative pain 07/30/2018 08/03/2018 Overview: A/p Controlled with WELD TECHNICIAN fentanyl, scheduled lidoderm patches and tyenol, prn oxycodone Stress hyperglycemia 07/30/2018 08/05/2018 Overview: Continue SS. Hypovolemia/fluctuating lacic acidosis 8 08/02/2018 Overview: A/p albumin given x1 Discharge planning issues 07/29/20182020 Overview: Discharge to SNF 08.06.2018. Lives in [facility], alone but has supportive family. PT/OT/RT recommend SNF. Appointments requested with [employer] and Cards. Preop testing 07/29/2018 08/03/2018 Overview: [facility] PRE-OP CHECKLIST Surgeon: Jamie Jo M.D. Informed Consent Completed: yes STS Score: N/A CAD: No Is intended procedure a CABG: No - is a beta jhon ordered? Previously prescribed H & P completed: Yes PA/LAT: Completed CT: Completed MRI: N/A LE US: N/A Cath: Yes (outside images on syngo)- reviewed: No Echo:Completed EKG: Completed EF %: 65 PI's: N/A Carotid: N/A Mapping: N/A Dental: Completed (edentulous) PFT's: Completed Recent Labs 07/29/18 0746 WBC 8.47 HB 12.8 HCT 41.4 PLT 294 INR 1.1 CREAT 1.33* UA: results pending HCG:N/A ABO/ABO Confirmed: Yes Blood ordered: No SA Swab: Yes - results: Pending Last Dose of Anticoagulation: Last dose of Coumadin on 07/24 Op Note: N/A Pacemaker Check: N/A Implants: no Consults: 07/15 - Pulmonary -Aaliyah Stone PA-C RE: COPD Continue current maintenance Rx at this time. Will re-assess after cardiac surgery. Based on oximetry today, you do not require supplemental oxygen with rest or exertion. Will obtain nocturnal oxygen from [employer]. Continue rescue inhaler as needed for relief of shortness of breath or wheezing, up to 4 times daily. Re-assess in 3 months, sooner if needed. 06/14/18: Hematology - Maria Isabel Tay MD RE: Small cell Lymphoma (in remission) - Continued observation and repeat CT chest abdomen pelvis in 3 months - proceed with valvular heart surgery and follow with cardiology. - Continue Coumadin. - repeat CBC, CMP, LDH, immunofixation & OV in 3 months. DM: No Cardiac Surgical prep: DR. JO AWARE OF ELEVATED CREATININE SIGNATURE: Bell Johnson APRN.PRODUCT SAFETY ENGINEER CHECKED BY: LEE ANN DATE of SERVICE: 07/29/2018 TIME of SERVICE: 8:22 AM Encounter for preoperative a nesthesiology assessment for cardiac surgery 07/29/2018 08/29/2021 Bone metastasis 10/13/2017 08/29/2021 Overview: Added automatically from request for surgery [id number] Hypoxemia 05/20/2017 08/03/2018 Overview: Requiring HF O2 after extubation A/p Begin diuresis and oob to chair, wean O2 as able. 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 Lopez follows for benign tumor removed 2002 Closed fracture of lateral malleolus 11/25/2005 09/05/2008 IBS (irritable bowel syndrome) 1 Overview: with diarrhea and urgency Chronic heart failure with p reserved ejection fraction (HFpEF) 08/29/2021 Persistent atrial fibrillation 1 documented as of this encounter (statuses as of 10/21/2022) [facility]2018 History of Past illness Narrative* Problem Noted Date Resolved Date Hypervolemia 08/01/2018 08/03/2018 Overview: A/p Edema noted on exam and CXR. Begin diuresis and monitor closely RADHA (acute kidney injury) 08/01/20182017 Overview: History: Post-operative. Assessment: BUN/Cr normalizing Plan: Avoid hypotension. Renally dose medications Cardiac insufficiency 07/30/2018 07/31/2018 Overview: A/p Cardiac insuffiencey requiring epi, titrate for UO & monitor CVP On mechanically assisted ventilation 07/30/2018 07/31/2018 Overview: Grade 1 Airway A/p WTE Postoperative pain 07/30/2018 08/03/2018 Overview: A/p Controlled with WELD TECHNICIAN fentanyl, scheduled lidoderm patches and tyenol, prn oxycodone Stress hyperglycemia 07/30/2018 08/05/2018 Overview: Continue SS. Hypovolemia/fluctuating lacic acidosis 8 08/02/2018 Overview: A/p albumin given x1 Discharge planning issues 07/29/20182020 Overview: Discharge to SNF 08.06.2018. Lives in [facility], alone but has supportive family. PT/OT/RT recommend SNF. Appointments requested with [employer] and Cards. Preop testing 07/29/2018 08/03/2018 Overview: [facility] Surgeon: Jamie Jo M.D. Informed Consent Completed: yes STS Score: N/A CAD: No Is intended procedure a CABG: No - is a beta jhon ordered? Previously prescribed H & P completed: Yes PA/LAT: Completed CT: Completed MRI: N/A LE US: N/A Cath: Yes (outside images on syngo)- reviewed: No Echo:Completed EKG: Completed EF %: 65 PI's: N/A Carotid: N/A Mapping: N/A Dental: Completed (edentulous) PFT's: Completed Recent Labs 07/29/18 0746 WBC 8.47 HB 12.8 HCT 41.4 PLT 294 INR 1.1 CREAT 1.33* UA: results pending HCG:N/A ABO/ABO Confirmed: Yes Blood ordered: No SA Swab: Yes - results: Pending Last Dose of Anticoagulation: Last dose of Coumadin on 07/24 Op Note: N/A Pacemaker Check: N/A Implants: no Consults: 07/15 - Pulmonary -Aaliyah Stone PA-C RE: COPD Continue current maintenance Rx at this time. Will re-assess after cardiac surgery. Based on oximetry today, you do not require supplemental oxygen with rest or exertion. Will obtain nocturnal oxygen from [employer]. Continue rescue inhaler as needed for relief of shortness of breath or wheezing, up to 4 times daily. Re-assess in 3 months, sooner if needed. 06/14/18: Hematology - Maria Isabel Tay MD RE: Small cell Lymphoma (in remission) - Continued observation and repeat CT chest abdomen pelvis in 3 months - proceed with valvular heart surgery and follow with cardiology. - Continue Coumadin. - repeat CBC, CMP, LDH, immunofixation & OV in 3 months. DM: No Cardiac Surgical prep: DR. JO AWARE OF ELEVATED CREATININE SIGNATURE: Bell Johnson APRN.PRODUCT SAFETY ENGINEER CHECKED BY: LEE ANN DATE of SERVICE: 07/29/2018 TIME of SERVICE: 8:22 AM Encounter for preoperative a nesthesiology assessment for cardiac surgery 07/29/2018 08/29/2021 Bone metastasis 10/13/2017 08/29/2021 Overview: Added automatically from request for surgery [id number] Hypoxemia 05/20/2017 08/03/2018 Overview: Requiring HF O2 after extubation A/p Begin diuresis and oob to chair, wean O2 as able. 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 Lopez follows for benign tumor removed 2002 Closed fracture of lateral malleolus 11/25/2005 09/05/2008 IBS (irritable bowel syndrome) 1 Overview: with diarrhea and urgency Chronic heart failure with p reserved ejection fraction (HFpEF) 08/29/2021 Persistent atrial fibrillation 1 documented as of this encounter (statuses as of 11/21/2022) [facility]09-30-2018 History of Past illness Narrative* Problem Noted Date Resolved Date Hypervolemia 08/01/2018 08/03/2018 Overview: A/p Edema noted on exam and CXR. Begin diuresis and monitor closely RADHA (acute kidney injury) 08/01/20182017 Overview: History: Post-operative. Assessment: BUN/Cr normalizing Plan: Avoid hypotension. Renally dose medications Cardiac insufficiency 07/30/2018 07/31/2018 Overview: A/p Cardiac insuffiencey requiring epi, titrate for UO & monitor CVP On mechanically assisted ventilation 07/30/2018 07/31/2018 Overview: Grade 1 Airway A/p WTE Postoperative pain 07/30/2018 08/03/2018 Overview: A/p Controlled with WELD TECHNICIAN fentanyl, scheduled lidoderm patches and tyenol, prn oxycodone Stress hyperglycemia 07/30/2018 08/05/2018 Overview: Continue SS. Hypovolemia/fluctuating lacic acidosis 8 08/02/2018 Overview: A/p albumin given x1 Discharge planning issues 07/29/20182020 Overview: Discharge to SNF 08.06.2018. Lives in [facility], alone but has supportive family. PT/OT/RT recommend SNF. Appointments requested with [employer] and Cards. Preop testing 07/29/2018 08/03/2018 Overview: [facility] PRE[facility] Surgeon: Jamie Jo M.D. Informed Consent Completed: yes STS Score: N/A CAD: No Is intended procedure a CABG: No - is a beta jhon ordered? Previously prescribed H & P completed: Yes PA/LAT: Completed CT: Completed MRI: N/A LE US: N/A Cath: Yes (outside images on syngo)- reviewed: No Echo:Completed EKG: Completed EF %: 65 PI's: N/A Carotid: N/A Mapping: N/A Dental: Completed (edentulous) PFT's: Completed Recent Labs 07/29/18 0746 WBC 8.47 HB 12.8 HCT 41.4 PLT 294 INR 1.1 CREAT 1.33* UA: results pending HCG:N/A ABO/ABO Confirmed: Yes Blood ordered: No SA Swab: Yes - results: Pending Last Dose of Anticoagulation: Last dose of Coumadin on 07/24 Op Note: N/A Pacemaker Check: N/A Implants: no Consults: 07/15 - Pulmonary -Aaliyah Stone PA-C RE: COPD Continue current maintenance Rx at this time. Will re-assess after cardiac surgery. Based on oximetry today, you do not require supplemental oxygen with rest or exertion. Will obtain nocturnal oxygen from [employer]. Continue rescue inhaler as needed for relief of shortness of breath or wheezing, up to 4 times daily. Re-assess in 3 months, sooner if needed. 06/14/18: Hematology - Maria Isabel Tay MD RE: Small cell Lymphoma (in remission) - Continued observation and repeat CT chest abdomen pelvis in 3 months - proceed with valvular heart surgery and follow with cardiology. - Continue Coumadin. - repeat CBC, CMP, LDH, immunofixation & OV in 3 months. DM: No Cardiac Surgical prep: DR. JO AWARE OF ELEVATED CREATININE SIGNATURE: Bell Johnson APRN.PRODUCT SAFETY ENGINEER CHECKED BY: LEE ANN DATE of SERVICE: 07/29/2018 TIME of SERVICE: 8:22 AM Encounter for preoperative a nesthesiology assessment for cardiac surgery 07/29/2018 08/29/2021 Bone metastasis 10/13/2017 08/29/2021 Overview: Added automatically from request for surgery [id number] Hypoxemia 05/20/2017 08/03/2018 Overview: Requiring HF O2 after extubation A/p Begin diuresis and oob to chair, wean O2 as able. 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 Lopez follows for benign tumor removed 2002 Closed fracture of lateral malleolus 11/25/2005 09/05/2008 IBS (irritable bowel syndrome) 1 Overview: with diarrhea and urgency Chronic heart failure with p reserved ejection fraction (HFpEF) 08/29/2021 Persistent atrial fibrillation 1 documented as of this encounter (statuses as of 11/28/2022) [facility]09-30-2018 History of Past illness Narrative* Problem Noted Date Resolved Date Hypervolemia 08/01/2018 08/03/2018 Overview: A/p Edema noted on exam and CXR. Begin diuresis and monitor closely RADHA (acute kidney injury) 08/01/20182017 Overview: History: Post-operative. Assessment: BUN/Cr normalizing Plan: Avoid hypotension. Renally dose medications Cardiac insufficiency 07/30/2018 07/31/2018 Overview: A/p Cardiac insuffiencey requiring epi, titrate for UO & monitor CVP On mechanically assisted ventilation 07/30/2018 07/31/2018 Overview: Grade 1 Airway A/p WTE Postoperative pain 07/30/2018 08/03/2018 Overview: A/p Controlled with WELD TECHNICIAN fentanyl, scheduled lidoderm patches and tyenol, prn oxycodone Stress hyperglycemia 07/30/2018 08/05/2018 Overview: Continue SS. Hypovolemia/fluctuating lacic acidosis 8 08/02/2018 Overview: A/p albumin given x1 Discharge planning issues 07/29/20182020 Overview: Discharge to SNF 08.06.2018. Lives in [facility], alone but has supportive family. PT/OT/RT recommend SNF. Appointments requested with [employer] and Cards. Preop testing 07/29/2018 08/03/2018 Overview: [facility] PRE[facility] Surgeon: Jamie Jo M.D. Informed Consent Completed: yes STS Score: N/A CAD: No Is intended procedure a CABG: No - is a beta jhon ordered? Previously prescribed H & P completed: Yes PA/LAT: Completed CT: Completed MRI: N/A LE US: N/A Cath: Yes (outside images on syngo)- reviewed: No Echo:Completed EKG: Completed EF %: 65 PI's: N/A Carotid: N/A Mapping: N/A Dental: Completed (edentulous) PFT's: Completed Recent Labs 07/29/18 0746 WBC 8.47 HB 12.8 HCT 41.4 PLT 294 INR 1.1 CREAT 1.33* UA: results pending HCG:N/A ABO/ABO Confirmed: Yes Blood ordered: No SA Swab: Yes - results: Pending Last Dose of Anticoagulation: Last dose of Coumadin on 07/24 Op Note: N/A Pacemaker Check: N/A Implants: no Consults: 07/15 - Pulmonary -Aaliyah Stone PA-C RE: COPD Continue current maintenance Rx at this time. Will re-assess after cardiac surgery. Based on oximetry today, you do not require supplemental oxygen with rest or exertion. Will obtain nocturnal oxygen from [employer]. Continue rescue inhaler as needed for relief of shortness of breath or wheezing, up to 4 times daily. Re-assess in 3 months, sooner if needed. 06/14/18: Hematology - Maria Isabel Tay MD RE: Small cell Lymphoma (in remission) - Continued observation and repeat CT chest abdomen pelvis in 3 months - proceed with valvular heart surgery and follow with cardiology. - Continue Coumadin. - repeat CBC, CMP, LDH, immunofixation & OV in 3 months. DM: No Cardiac Surgical prep: DR. JO AWARE OF ELEVATED CREATININE SIGNATURE: Bell Johnson APRN.PRODUCT SAFETY ENGINEER CHECKED BY: LEE ANN DATE of SERVICE: 07/29/2018 TIME of SERVICE: 8:22 AM Encounter for preoperative a nesthesiology assessment for cardiac surgery 07/29/2018 08/29/2021 Bone metastasis 10/13/2017 08/29/2021 Overview: Added automatically from request for surgery [id number] Hypoxemia 05/20/2017 08/03/2018 Overview: Requiring HF O2 after extubation A/p Begin diuresis and oob to chair, wean O2 as able. 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 Lopez follows for benign tumor removed 2002 Closed fracture of lateral malleolus 11/25/2005 09/05/2008 IBS (irritable bowel syndrome) 1 Overview: with diarrhea and urgency Chronic heart failure with p reserved ejection fraction (HFpEF) 08/29/2021 Persistent atrial fibrillation 1 documented as of this encounter (statuses as of 12/03/2022) [facility]09-30-2018 History of Past illness Narrative* Problem Noted Date Resolved Date Hypervolemia 08/01/2018 08/03/2018 Overview: A/p Edema noted on exam and CXR. Begin diuresis and monitor closely RADHA (acute kidney injury) 08/01/20182017 Overview: History: Post-operative. Assessment: BUN/Cr normalizing Plan: Avoid hypotension. Renally dose medications Cardiac insufficiency 07/30/2018 07/31/2018 Overview: A/p Cardiac insuffiencey requiring epi, titrate for UO & monitor CVP On mechanically assisted ventilation 07/30/2018 07/31/2018 Overview: Grade 1 Airway A/p WTE Postoperative pain 07/30/2018 08/03/2018 Overview: A/p Controlled with WELD TECHNICIAN fentanyl, scheduled lidoderm patches and tyenol, prn oxycodone Stress hyperglycemia 07/30/2018 08/05/2018 Overview: Continue SS. Hypovolemia/fluctuating lacic acidosis 8 08/02/2018 Overview: A/p albumin given x1 Discharge planning issues 07/29/20182020 Overview: Discharge to SNF 08.06.2018. Lives in [facility], alone but has supportive family. PT/OT/RT recommend SNF. Appointments requested with [employer] and Cards. Preop testing 07/29/2018 08/03/2018 Overview: [facility] PRE-OP CHECK[facility] Surgeon: Jamie Jo M.D. Informed Consent Completed: yes STS Score: N/A CAD: No Is intended procedure a CABG: No - is a beta jhon ordered? Previously prescribed H & P completed: Yes PA/LAT: Completed CT: Completed MRI: N/A LE US: N/A Cath: Yes (outside images on syngo)- reviewed: No Echo:Completed EKG: Completed EF %: 65 PI's: N/A Carotid: N/A Mapping: N/A Dental: Completed (edentulous) PFT's: Completed Recent Labs 07/29/18 0746 WBC 8.47 HB 12.8 HCT 41.4 PLT 294 INR 1.1 CREAT 1.33* UA: results pending HCG:N/A ABO/ABO Confirmed: Yes Blood ordered: No SA Swab: Yes - results: Pending Last Dose of Anticoagulation: Last dose of Coumadin on 07/24 Op Note: N/A Pacemaker Check: N/A Implants: no Consults: 07/15 - Pulmonary -Aaliyah Stone PA-C RE: COPD Continue current maintenance Rx at this time. Will re-assess after cardiac surgery. Based on oximetry today, you do not require supplemental oxygen with rest or exertion. Will obtain nocturnal oxygen from [employer]. Continue rescue inhaler as needed for relief of shortness of breath or wheezing, up to 4 times daily. Re-assess in 3 months, sooner if needed. 06/14/18: Hematology - Maria Isabel Tay MD RE: Small cell Lymphoma (in remission) - Continued observation and repeat CT chest abdomen pelvis in 3 months - proceed with valvular heart surgery and follow with cardiology. - Continue Coumadin. - repeat CBC, CMP, LDH, immunofixation & OV in 3 months. DM: No Cardiac Surgical prep: DR. JO AWARE OF ELEVATED CREATININE SIGNATURE: Bell Johnson APRN.PRODUCT SAFETY ENGINEER CHECKED BY: LEE ANN DATE of SERVICE: 07/29/2018 TIME of SERVICE: 8:22 AM Encounter for preoperative a nesthesiology assessment for cardiac surgery 07/29/2018 08/29/2021 Bone metastasis 10/13/2017 08/29/2021 Overview: Added automatically from request for surgery [id number] Hypoxemia 05/20/2017 08/03/2018 Overview: Requiring HF O2 after extubation A/p Begin diuresis and oob to chair, wean O2 as able. 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 Lopez follows for benign tumor removed 2002 Closed fracture of lateral malleolus 11/25/2005 09/05/2008 IBS (irritable bowel syndrome) 1 Overview: with diarrhea and urgency Chronic heart failure with p reserved ejection fraction (HFpEF) 08/29/2021 Persistent atrial fibrillation 1 documented as of this encounter (statuses as of 12/15/2022) [facility]09[facility]-2018 History of Past illness Narrative* Problem Noted Date Resolved Date Hypervolemia 08/01/2018 08/03/2018 Overview: A/p Edema noted on exam and CXR. Begin diuresis and monitor closely RADHA (acute kidney injury) 08/01/20182017 Overview: History: Post-operative. Assessment: BUN/Cr normalizing Plan: Avoid hypotension. Renally dose medications Cardiac insufficiency 07/30/2018 07/31/2018 Overview: A/p Cardiac insuffiencey requiring epi, titrate for UO & monitor CVP On mechanically assisted ventilation 07/30/2018 07/31/2018 Overview: Grade 1 Airway A/p WTE Postoperative pain 07/30/2018 08/03/2018 Overview: A/p Controlled with WELD TECHNICIAN fentanyl, scheduled lidoderm patches and tyenol, prn oxycodone Stress hyperglycemia 07/30/2018 08/05/2018 Overview: Continue SS. Hypovolemia/fluctuating lacic acidosis 8 08/02/2018 Overview: A/p albumin given x1 Discharge planning issues 07/29/20182020 Overview: Discharge to SNF 08.06.2018. Lives in [facility], alone but has supportive family. PT/OT/RT recommend SNF. Appointments requested with [employer] and Cards. Preop testing 07/29/2018 08/03/2018 Overview: [facility] PRE-OP CHECKLIST Surgeon: Jamie Jo M.D. Informed Consent Completed: yes STS Score: N/A CAD: No Is intended procedure a CABG: No - is a beta jhon ordered? Previously prescribed H & P completed: Yes PA/LAT: Completed CT: Completed MRI: N/A LE US: N/A Cath: Yes (outside images on syngo)- reviewed: No Echo:Completed EKG: Completed EF %: 65 PI's: N/A Carotid: N/A Mapping: N/A Dental: Completed (edentulous) PFT's: Completed Recent Labs 07/29/18 0746 WBC 8.47 HB 12.8 HCT 41.4 PLT 294 INR 1.1 CREAT 1.33* UA: results pending HCG:N/A ABO/ABO Confirmed: Yes Blood ordered: No SA Swab: Yes - results: Pending Last Dose of Anticoagulation: Last dose of Coumadin on 07/24 Op Note: N/A Pacemaker Check: N/A Implants: no Consults: 07/15 - Pulmonary -Aaliyah Stone PA-C RE: COPD Continue current maintenance Rx at this time. Will re-assess after cardiac surgery. Based on oximetry today, you do not require supplemental oxygen with rest or exertion. Will obtain nocturnal oxygen from [employer]. Continue rescue inhaler as needed for relief of shortness of breath or wheezing, up to 4 times daily. Re-assess in 3 months, sooner if needed. 06/14/18: Hematology - Maria Isabel Tay MD RE: Small cell Lymphoma (in remission) - Continued observation and repeat CT chest abdomen pelvis in 3 months - proceed with valvular heart surgery and follow with cardiology. - Continue Coumadin. - repeat CBC, CMP, LDH, immunofixation & OV in 3 months. DM: No Cardiac Surgical prep: DR. JO AWARE OF ELEVATED CREATININE SIGNATURE: Bell Johnson APRN.PRODUCT SAFETY ENGINEER CHECKED BY: LEE ANN DATE of SERVICE: 07/29/2018 TIME of SERVICE: 8:22 AM Encounter for preoperative a nesthesiology assessment for cardiac surgery 07/29/2018 08/29/2021 Bone metastasis 10/13/2017 08/29/2021 Overview: Added automatically from request for surgery [id number] Hypoxemia 05/20/2017 08/03/2018 Overview: Requiring HF O2 after extubation A/p Begin diuresis and oob to chair, wean O2 as able. 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 Lopez follows for benign tumor removed 2002 Closed fracture of lateral malleolus 11/25/2005 09/05/2008 IBS (irritable bowel syndrome) 1 Overview: with diarrhea and urgency Chronic heart failure with p reserved ejection fraction (HFpEF) 08/29/2021 Persistent atrial fibrillation 1 documented as of this encounter (statuses as of 12/20/2022) [facility]2018 History of Past illness Narrative* Problem Noted Date Resolved Date Hypervolemia 08/01/2018 08/03/2018 Overview: A/p Edema noted on exam and CXR. Begin diuresis and monitor closely RADHA (acute kidney injury) 08/01/20182017 Overview: History: Post-operative. Assessment: BUN/Cr normalizing Plan: Avoid hypotension. Renally dose medications Cardiac insufficiency 07/30/2018 07/31/2018 Overview: A/p Cardiac insuffiencey requiring epi, titrate for UO & monitor CVP On mechanically assisted ventilation 07/30/2018 07/31/2018 Overview: Grade 1 Airway A/p WTE Postoperative pain 07/30/2018 08/03/2018 Overview: A/p Controlled with WELD TECHNICIAN fentanyl, scheduled lidoderm patches and tyenol, prn oxycodone Stress hyperglycemia 07/30/2018 08/05/2018 Overview: Continue SS. Hypovolemia/fluctuating lacic acidosis 8 08/02/2018 Overview: A/p albumin given x1 Discharge planning issues 07/29/20182020 Overview: Discharge to SNF 08.06.2018. Lives in [facility], alone but has supportive family. PT/OT/RT recommend SNF. Appointments requested with [employer] and Cards. Preop testing 07/29/2018 08/03/2018 Overview: [facility] PRE-OP CHECKLIST Surgeon: Jamie Jo M.D. Informed Consent Completed: yes STS Score: N/A CAD: No Is intended procedure a CABG: No - is a beta jhon ordered? Previously prescribed H & P completed: Yes PA/LAT: Completed CT: Completed MRI: N/A LE US: N/A Cath: Yes (outside images on syngo)- reviewed: No Echo:Completed EKG: Completed EF %: 65 PI's: N/A Carotid: N/A Mapping: N/A Dental: Completed (edentulous) PFT's: Completed Recent Labs 07/29/18 0746 WBC 8.47 HB 12.8 HCT 41.4 PLT 294 INR 1.1 CREAT 1.33* UA: results pending HCG:N/A ABO/ABO Confirmed: Yes Blood ordered: No SA Swab: Yes - results: Pending Last Dose of Anticoagulation: Last dose of Coumadin on 07/24 Op Note: N/A Pacemaker Check: N/A Implants: no Consults: 07/15 - Pulmonary -Aaliyah Stone PA-C RE: COPD Continue current maintenance Rx at this time. Will re-assess after cardiac surgery. Based on oximetry today, you do not require supplemental oxygen with rest or exertion. Will obtain nocturnal oxygen from [employer]. Continue rescue inhaler as needed for relief of shortness of breath or wheezing, up to 4 times daily. Re-assess in 3 months, sooner if needed. 06/14/18: Hematology - Maria Isabel Tay MD RE: Small cell Lymphoma (in remission) - Continued observation and repeat CT chest abdomen pelvis in 3 months - proceed with valvular heart surgery and follow with cardiology. - Continue Coumadin. - repeat CBC, CMP, LDH, immunofixation & OV in 3 months. DM: No Cardiac Surgical prep: DR. JO AWARE OF ELEVATED CREATININE SIGNATURE: Bell Johnson APRN.PRODUCT SAFETY ENGINEER CHECKED BY: LEE ANN DATE of SERVICE: 07/29/2018 TIME of SERVICE: 8:22 AM Encounter for preoperative a nesthesiology assessment for cardiac surgery 07/29/2018 08/29/2021 Bone metastasis 10/13/2017 08/29/2021 Overview: Added automatically from request for surgery [id number] Hypoxemia 05/20/2017 08/03/2018 Overview: Requiring HF O2 after extubation A/p Begin diuresis and oob to chair, wean O2 as able. 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 Lopez follows for benign tumor removed 2002 Closed fracture of lateral malleolus 11/25/2005 09/05/2008 IBS (irritable bowel syndrome) 1 Overview: with diarrhea and urgency Chronic heart failure with p reserved ejection fraction (HFpEF) 08/29/2021 Persistent atrial fibrillation 1 documented as of this encounter (statuses as of 12/21/2022) [facility]2018 History of Past illness Narrative* Problem Noted Date Resolved Date Hypervolemia 08/01/2018 08/03/2018 Overview: A/p Edema noted on exam and CXR. Begin diuresis and monitor closely RADHA (acute kidney injury) 08/01/20182017 Overview: History: Post-operative. Assessment: BUN/Cr normalizing Plan: Avoid hypotension. Renally dose medications Cardiac insufficiency 07/30/2018 07/31/2018 Overview: A/p Cardiac insuffiencey requiring epi, titrate for UO & monitor CVP On mechanically assisted ventilation 07/30/2018 07/31/2018 Overview: Grade 1 Airway A/p WTE Postoperative pain 07/30/2018 08/03/2018 Overview: A/p Controlled with WELD TECHNICIAN fentanyl, scheduled lidoderm patches and tyenol, prn oxycodone Stress hyperglycemia 07/30/2018 08/05/2018 Overview: Continue SS. Hypovolemia/fluctuating lacic acidosis 8 08/02/2018 Overview: A/p albumin given x1 Discharge planning issues 07/29/20182020 Overview: Discharge to SNF 08.06.2018. Lives in [facility], alone but has supportive family. PT/OT/RT recommend SNF. Appointments requested with [employer] and Cards. Preop testing 07/29/2018 08/03/2018 Overview: [facility] Surgeon: Jamie Jo M.D. Informed Consent Completed: yes STS Score: N/A CAD: No Is intended procedure a CABG: No - is a beta jhon ordered? Previously prescribed H & P completed: Yes PA/LAT: Completed CT: Completed MRI: N/A LE US: N/A Cath: Yes (outside images on syngo)- reviewed: No Echo:Completed EKG: Completed EF %: 65 PI's: N/A Carotid: N/A Mapping: N/A Dental: Completed (edentulous) PFT's: Completed Recent Labs 07/29/18 0746 WBC 8.47 HB 12.8 HCT 41.4 PLT 294 INR 1.1 CREAT 1.33* UA: results pending HCG:N/A ABO/ABO Confirmed: Yes Blood ordered: No SA Swab: Yes - results: Pending Last Dose of Anticoagulation: Last dose of Coumadin on 07/24 Op Note: N/A Pacemaker Check: N/A Implants: no Consults: 07/15 - Pulmonary -Aaliyah Stone PA-C RE: COPD Continue current maintenance Rx at this time. Will re-assess after cardiac surgery. Based on oximetry today, you do not require supplemental oxygen with rest or exertion. Will obtain nocturnal oxygen from [employer]. Continue rescue inhaler as needed for relief of shortness of breath or wheezing, up to 4 times daily. Re-assess in 3 months, sooner if needed. 06/14/18: Hematology - Maria Isabel Tay MD RE: Small cell Lymphoma (in remission) - Continued observation and repeat CT chest abdomen pelvis in 3 months - proceed with valvular heart surgery and follow with cardiology. - Continue Coumadin. - repeat CBC, CMP, LDH, immunofixation & OV in 3 months. DM: No Cardiac Surgical prep: DR. JO AWARE OF ELEVATED CREATININE SIGNATURE: Bell Johnson APRN.PRODUCT SAFETY ENGINEER CHECKED BY: LEE ANN DATE of SERVICE: 07/29/2018 TIME of SERVICE: 8:22 AM Encounter for preoperative a nesthesiology assessment for cardiac surgery 07/29/2018 08/29/2021 Bone metastasis 10/13/2017 08/29/2021 Overview: Added automatically from request for surgery [id number] Hypoxemia 05/20/2017 08/03/2018 Overview: Requiring HF O2 after extubation A/p Begin diuresis and oob to chair, wean O2 as able. 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 Lopez follows for benign tumor removed 2002 Closed fracture of lateral malleolus 11/25/2005 09/05/2008 IBS (irritable bowel syndrome) 1 Overview: with diarrhea and urgency Chronic heart failure with p reserved ejection fraction (HFpEF) 08/29/2021 Persistent atrial fibrillation 1 documented as of this encounter (statuses as of 01/01/2023) [facility]09-30-2018 History of Past illness Narrative* Problem Noted Date Resolved Date Hypervolemia 08/01/2018 08/03/2018 Overview: A/p Edema noted on exam and CXR. Begin diuresis and monitor closely RADHA (acute kidney injury) 08/01/20182017 Overview: History: Post-operative. Assessment: BUN/Cr normalizing Plan: Avoid hypotension. Renally dose medications Cardiac insufficiency 07/30/2018 07/31/2018 Overview: A/p Cardiac insuffiencey requiring epi, titrate for UO & monitor CVP On mechanically assisted ventilation 07/30/2018 07/31/2018 Overview: Grade 1 Airway A/p WTE Postoperative pain 07/30/2018 08/03/2018 Overview: A/p Controlled with WELD TECHNICIAN fentanyl, scheduled lidoderm patches and tyenol, prn oxycodone Stress hyperglycemia 07/30/2018 08/05/2018 Overview: Continue SS. Hypovolemia/fluctuating lacic acidosis 8 08/02/2018 Overview: A/p albumin given x1 Discharge planning issues 07/29/20182020 Overview: Discharge to SNF 08.06.2018. Lives in [facility], alone but has supportive family. PT/OT/RT recommend SNF. Appointments requested with [employer] and Cards. Preop testing 07/29/2018 08/03/2018 Overview: [facility] Surgeon: Jamie Jo M.D. Informed Consent Completed: yes STS Score: N/A CAD: No Is intended procedure a CABG: No - is a beta jhon ordered? Previously prescribed H & P completed: Yes PA/LAT: Completed CT: Completed MRI: N/A LE US: N/A Cath: Yes (outside images on syngo)- reviewed: No Echo:Completed EKG: Completed EF %: 65 PI's: N/A Carotid: N/A Mapping: N/A Dental: Completed (edentulous) PFT's: Completed Recent Labs 07/29/18 0746 WBC 8.47 HB 12.8 HCT 41.4 PLT 294 INR 1.1 CREAT 1.33* UA: results pending HCG:N/A ABO/ABO Confirmed: Yes Blood ordered: No SA Swab: Yes - results: Pending Last Dose of Anticoagulation: Last dose of Coumadin on 07/24 Op Note: N/A Pacemaker Check: N/A Implants: no Consults: 07/15 - Pulmonary -Aaliyah Stone PA-C RE: COPD Continue current maintenance Rx at this time. Will re-assess after cardiac surgery. Based on oximetry today, you do not require supplemental oxygen with rest or exertion. Will obtain nocturnal oxygen from [employer]. Continue rescue inhaler as needed for relief of shortness of breath or wheezing, up to 4 times daily. Re-assess in 3 months, sooner if needed. 06/14/18: Hematology - Maria Isabel Tay MD RE: Small cell Lymphoma (in remission) - Continued observation and repeat CT chest abdomen pelvis in 3 months - proceed with valvular heart surgery and follow with cardiology. - Continue Coumadin. - repeat CBC, CMP, LDH, immunofixation & OV in 3 months. DM: No Cardiac Surgical prep: DR. JO AWARE OF ELEVATED CREATININE SIGNATURE: Bell Johnson APRN.PRODUCT SAFETY ENGINEER CHECKED BY: LEE ANN DATE of SERVICE: 07/29/2018 TIME of SERVICE: 8:22 AM Encounter for preoperative a nesthesiology assessment for cardiac surgery 07/29/2018 08/29/2021 Bone metastasis 10/13/2017 08/29/2021 Overview: Added automatically from request for surgery [id number] Hypoxemia 05/20/2017 08/03/2018 Overview: Requiring HF O2 after extubation A/p Begin diuresis and oob to chair, wean O2 as able. 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 Lopez follows for benign tumor removed 2002 Closed fracture of lateral malleolus 11/25/2005 09/05/2008 IBS (irritable bowel syndrome) 1 Overview: with diarrhea and urgency Chronic heart failure with p reserved ejection fraction (HFpEF) 08/29/2021 Persistent atrial fibrillation 1 documented as of this encounter (statuses as of 01/29/2023) [facility]09-30-2018 History of Past illness Narrative* Problem Noted Date Resolved Date Hypervolemia 08/01/2018 08/03/2018 Overview: A/p Edema noted on exam and CXR. Begin diuresis and monitor closely RADHA (acute kidney injury) 08/01/20182017 Overview: History: Post-operative. Assessment: BUN/Cr normalizing Plan: Avoid hypotension. Renally dose medications Cardiac insufficiency 07/30/2018 07/31/2018 Overview: A/p Cardiac insuffiencey requiring epi, titrate for UO & monitor CVP On mechanically assisted ventilation 07/30/2018 07/31/2018 Overview: Grade 1 Airway A/p WTE Postoperative pain 07/30/2018 08/03/2018 Overview: A/p Controlled with WELD TECHNICIAN fentanyl, scheduled lidoderm patches and tyenol, prn oxycodone Stress hyperglycemia 07/30/2018 08/05/2018 Overview: Continue SS. Hypovolemia/fluctuating lacic acidosis 8 08/02/2018 Overview: A/p albumin given x1 Discharge planning issues 07/29/20182020 Overview: Discharge to SNF 08.06.2018. Lives in [facility], alone but has supportive family. PT/OT/RT recommend SNF. Appointments requested with [employer] and Cards. Preop testing 07/29/2018 08/03/2018 Overview: [facility] PRE[facility] Surgeon: Jamie Jo M.D. Informed Consent Completed: yes STS Score: N/A CAD: No Is intended procedure a CABG: No - is a beta jhon ordered? Previously prescribed H & P completed: Yes PA/LAT: Completed CT: Completed MRI: N/A LE US: N/A Cath: Yes (outside images on syngo)- reviewed: No Echo:Completed EKG: Completed EF %: 65 PI's: N/A Carotid: N/A Mapping: N/A Dental: Completed (edentulous) PFT's: Completed Recent Labs 07/29/18 0746 WBC 8.47 HB 12.8 HCT 41.4 PLT 294 INR 1.1 CREAT 1.33* UA: results pending HCG:N/A ABO/ABO Confirmed: Yes Blood ordered: No SA Swab: Yes - results: Pending Last Dose of Anticoagulation: Last dose of Coumadin on 07/24 Op Note: N/A Pacemaker Check: N/A Implants: no Consults: 07/15 - Pulmonary -Aaliyah Stone PA-C RE: COPD Continue current maintenance Rx at this time. Will re-assess after cardiac surgery. Based on oximetry today, you do not require supplemental oxygen with rest or exertion. Will obtain nocturnal oxygen from [employer]. Continue rescue inhaler as needed for relief of shortness of breath or wheezing, up to 4 times daily. Re-assess in 3 months, sooner if needed. 06/14/18: Hematology - Maria Isabel Tay MD RE: Small cell Lymphoma (in remission) - Continued observation and repeat CT chest abdomen pelvis in 3 months - proceed with valvular heart surgery and follow with cardiology. - Continue Coumadin. - repeat CBC, CMP, LDH, immunofixation & OV in 3 months. DM: No Cardiac Surgical prep: DR. JO AWARE OF ELEVATED CREATININE SIGNATURE: Bell Johnson APRN.PRODUCT SAFETY ENGINEER CHECKED BY: LEE ANN DATE of SERVICE: 07/29/2018 TIME of SERVICE: 8:22 AM Encounter for preoperative a nesthesiology assessment for cardiac surgery 07/29/2018 08/29/2021 Bone metastasis 10/13/2017 08/29/2021 Overview: Added automatically from request for surgery [id number] Hypoxemia 05/20/2017 08/03/2018 Overview: Requiring HF O2 after extubation A/p Begin diuresis and oob to chair, wean O2 as able. 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 Lopez follows for benign tumor removed 2002 Closed fracture of lateral malleolus 11/25/2005 09/05/2008 IBS (irritable bowel syndrome) 1 Overview: with diarrhea and urgency Chronic heart failure with p reserved ejection fraction (HFpEF) 08/29/2021 Persistent atrial fibrillation 1 documented as of this encounter (statuses as of 02/03/2023) [facility]09-30-2018 History of Past illness Narrative* Problem Noted Date Resolved Date Hypervolemia 08/01/2018 08/03/2018 Overview: A/p Edema noted on exam and CXR. Begin diuresis and monitor closely RADHA (acute kidney injury) 08/01/20182017 Overview: History: Post-operative. Assessment: BUN/Cr normalizing Plan: Avoid hypotension. Renally dose medications Cardiac insufficiency 07/30/2018 07/31/2018 Overview: A/p Cardiac insuffiencey requiring epi, titrate for UO & monitor CVP On mechanically assisted ventilation 07/30/2018 07/31/2018 Overview: Grade 1 Airway A/p WTE Postoperative pain 07/30/2018 08/03/2018 Overview: A/p Controlled with WELD TECHNICIAN fentanyl, scheduled lidoderm patches and tyenol, prn oxycodone Stress hyperglycemia 07/30/2018 08/05/2018 Overview: Continue SS. Hypovolemia/fluctuating lacic acidosis 8 08/02/2018 Overview: A/p albumin given x1 Discharge planning issues 07/29/20182020 Overview: Discharge to SNF 08.06.2018. Lives in [facility], alone but has supportive family. PT/OT/RT recommend SNF. Appointments requested with [employer] and Cards. Preop testing 07/29/2018 08/03/2018 Overview: [facility] PRE-[facility] Surgeon: Jamie Jo M.D. Informed Consent Completed: yes STS Score: N/A CAD: No Is intended procedure a CABG: No - is a beta jhon ordered? Previously prescribed H & P completed: Yes PA/LAT: Completed CT: Completed MRI: N/A LE US: N/A Cath: Yes (outside images on syngo)- reviewed: No Echo:Completed EKG: Completed EF %: 65 PI's: N/A Carotid: N/A Mapping: N/A Dental: Completed (edentulous) PFT's: Completed Recent Labs 07/29/18 0746 WBC 8.47 HB 12.8 HCT 41.4 PLT 294 INR 1.1 CREAT 1.33* UA: results pending HCG:N/A ABO/ABO Confirmed: Yes Blood ordered: No SA Swab: Yes - results: Pending Last Dose of Anticoagulation: Last dose of Coumadin on 07/24 Op Note: N/A Pacemaker Check: N/A Implants: no Consults: 07/15 - Pulmonary -Aaliyah Stone PA-C RE: COPD Continue current maintenance Rx at this time. Will re-assess after cardiac surgery. Based on oximetry today, you do not require supplemental oxygen with rest or exertion. Will obtain nocturnal oxygen from [employer]. Continue rescue inhaler as needed for relief of shortness of breath or wheezing, up to 4 times daily. Re-assess in 3 months, sooner if needed. 06/14/18: Hematology - Maria Isabel Tay MD RE: Small cell Lymphoma (in remission) - Continued observation and repeat CT chest abdomen pelvis in 3 months - proceed with valvular heart surgery and follow with cardiology. - Continue Coumadin. - repeat CBC, CMP, LDH, immunofixation & OV in 3 months. DM: No Cardiac Surgical prep: DR. JO AWARE OF ELEVATED CREATININE SIGNATURE: Bell Johnson APRN.PRODUCT SAFETY ENGINEER CHECKED BY: LEE ANN DATE of SERVICE: 07/29/2018 TIME of SERVICE: 8:22 AM Encounter for preoperative a nesthesiology assessment for cardiac surgery 07/29/2018 08/29/2021 Bone metastasis 10/13/2017 08/29/2021 Overview: Added automatically from request for surgery [id number] Hypoxemia 05/20/2017 08/03/2018 Overview: Requiring HF O2 after extubation A/p Begin diuresis and oob to chair, wean O2 as able. 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 Lopez follows for benign tumor removed 2002 Closed fracture of lateral malleolus 11/25/2005 09/05/2008 IBS (irritable bowel syndrome) 1 Overview: with diarrhea and urgency Chronic heart failure with p reserved ejection fraction (HFpEF) 08/29/2021 Persistent atrial fibrillation 1 documented as of this encounter (statuses as of 02/11/2023) [facility]09-30-2018 History of Past illness Narrative* Problem Noted Date Resolved Date Hypervolemia 08/01/2018 08/03/2018 Overview: A/p Edema noted on exam and CXR. Begin diuresis and monitor closely RADHA (acute kidney injury) 08/01/20182017 Overview: History: Post-operative. Assessment: BUN/Cr normalizing Plan: Avoid hypotension. Renally dose medications Cardiac insufficiency 07/30/2018 07/31/2018 Overview: A/p Cardiac insuffiencey requiring epi, titrate for UO & monitor CVP On mechanically assisted ventilation 07/30/2018 07/31/2018 Overview: Grade 1 Airway A/p WTE Postoperative pain 07/30/2018 08/03/2018 Overview: A/p Controlled with WELD TECHNICIAN fentanyl, scheduled lidoderm patches and tyenol, prn oxycodone Stress hyperglycemia 07/30/2018 08/05/2018 Overview: Continue SS. Hypovolemia/fluctuating lacic acidosis 8 08/02/2018 Overview: A/p albumin given x1 Discharge planning issues 07/29/20182020 Overview: Discharge to SNF 08.06.2018. Lives in [facility], alone but has supportive family. PT/OT/RT recommend SNF. Appointments requested with [employer] and Cards. Preop testing 07/29/2018 08/03/2018 Overview: [facility] PRE-OP CHECK[facility] Surgeon: Jamie Jo M.D. Informed Consent Completed: yes STS Score: N/A CAD: No Is intended procedure a CABG: No - is a beta jhon ordered? Previously prescribed H & P completed: Yes PA/LAT: Completed CT: Completed MRI: N/A LE US: N/A Cath: Yes (outside images on syngo)- reviewed: No Echo:Completed EKG: Completed EF %: 65 PI's: N/A Carotid: N/A Mapping: N/A Dental: Completed (edentulous) PFT's: Completed Recent Labs 07/29/18 0746 WBC 8.47 HB 12.8 HCT 41.4 PLT 294 INR 1.1 CREAT 1.33* UA: results pending HCG:N/A ABO/ABO Confirmed: Yes Blood ordered: No SA Swab: Yes - results: Pending Last Dose of Anticoagulation: Last dose of Coumadin on 07/24 Op Note: N/A Pacemaker Check: N/A Implants: no Consults: 07/15 - Pulmonary -Aaliyah Stone PA-C RE: COPD Continue current maintenance Rx at this time. Will re-assess after cardiac surgery. Based on oximetry today, you do not require supplemental oxygen with rest or exertion. Will obtain nocturnal oxygen from [employer]. Continue rescue inhaler as needed for relief of shortness of breath or wheezing, up to 4 times daily. Re-assess in 3 months, sooner if needed. 06/14/18: Hematology - Maria Isabel Tay MD RE: Small cell Lymphoma (in remission) - Continued observation and repeat CT chest abdomen pelvis in 3 months - proceed with valvular heart surgery and follow with cardiology. - Continue Coumadin. - repeat CBC, CMP, LDH, immunofixation & OV in 3 months. DM: No Cardiac Surgical prep: DR. JO AWARE OF ELEVATED CREATININE SIGNATURE: Bell Johnson APRN.PRODUCT SAFETY ENGINEER CHECKED BY: LEE ANN DATE of SERVICE: 07/29/2018 TIME of SERVICE: 8:22 AM Encounter for preoperative a nesthesiology assessment for cardiac surgery 07/29/2018 08/29/2021 Bone metastasis 10/13/2017 08/29/2021 Overview: Added automatically from request for surgery [id number] Hypoxemia 05/20/2017 08/03/2018 Overview: Requiring HF O2 after extubation A/p Begin diuresis and oob to chair, wean O2 as able. 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 Lopez follows for benign tumor removed 2002 Closed fracture of lateral malleolus 11/25/2005 09/05/2008 IBS (irritable bowel syndrome) 1 Overview: with diarrhea and urgency Chronic heart failure with p reserved ejection fraction (HFpEF) 08/29/2021 Persistent atrial fibrillation 1 documented as of this encounter (statuses as of 02/12/2023) [facility]2018 History of Past illness Narrative* Problem Noted Date Resolved Date Hypervolemia 08/01/2018 08/03/2018 Overview: A/p Edema noted on exam and CXR. Begin diuresis and monitor closely RADHA (acute kidney injury) 08/01/20182017 Overview: History: Post-operative. Assessment: BUN/Cr normalizing Plan: Avoid hypotension. Renally dose medications Cardiac insufficiency 07/30/2018 07/31/2018 Overview: A/p Cardiac insuffiencey requiring epi, titrate for UO & monitor CVP On mechanically assisted ventilation 07/30/2018 07/31/2018 Overview: Grade 1 Airway A/p WTE Postoperative pain 07/30/2018 08/03/2018 Overview: A/p Controlled with WELD TECHNICIAN fentanyl, scheduled lidoderm patches and tyenol, prn oxycodone Stress hyperglycemia 07/30/2018 08/05/2018 Overview: Continue SS. Hypovolemia/fluctuating lacic acidosis 8 08/02/2018 Overview: A/p albumin given x1 Discharge planning issues 07/29/20182020 Overview: Discharge to SNF 08.06.2018. Lives in [facility], alone but has supportive family. PT/OT/RT recommend SNF. Appointments requested with [employer] and Cards. Preop testing 07/29/2018 08/03/2018 Overview: [facility] PRE-OP CHECK[facility] Surgeon: Jamie Jo M.D. Informed Consent Completed: yes STS Score: N/A CAD: No Is intended procedure a CABG: No - is a beta jhon ordered? Previously prescribed H & P completed: Yes PA/LAT: Completed CT: Completed MRI: N/A LE US: N/A Cath: Yes (outside images on syngo)- reviewed: No Echo:Completed EKG: Completed EF %: 65 PI's: N/A Carotid: N/A Mapping: N/A Dental: Completed (edentulous) PFT's: Completed Recent Labs 07/29/18 0746 WBC 8.47 HB 12.8 HCT 41.4 PLT 294 INR 1.1 CREAT 1.33* UA: results pending HCG:N/A ABO/ABO Confirmed: Yes Blood ordered: No SA Swab: Yes - results: Pending Last Dose of Anticoagulation: Last dose of Coumadin on 07/24 Op Note: N/A Pacemaker Check: N/A Implants: no Consults: 07/15 - Pulmonary -Aaliyah Stone PA-C RE: COPD Continue current maintenance Rx at this time. Will re-assess after cardiac surgery. Based on oximetry today, you do not require supplemental oxygen with rest or exertion. Will obtain nocturnal oxygen from [employer]. Continue rescue inhaler as needed for relief of shortness of breath or wheezing, up to 4 times daily. Re-assess in 3 months, sooner if needed. 06/14/18: Hematology - Maria Isabel Tay MD RE: Small cell Lymphoma (in remission) - Continued observation and repeat CT chest abdomen pelvis in 3 months - proceed with valvular heart surgery and follow with cardiology. - Continue Coumadin. - repeat CBC, CMP, LDH, immunofixation & OV in 3 months. DM: No Cardiac Surgical prep: DR. JO AWARE OF ELEVATED CREATININE SIGNATURE: Bell Johnson APRN.PRODUCT SAFETY ENGINEER CHECKED BY: LEE ANN DATE of SERVICE: 07/29/2018 TIME of SERVICE: 8:22 AM Encounter for preoperative a nesthesiology assessment for cardiac surgery 07/29/2018 08/29/2021 Bone metastasis 10/13/2017 08/29/2021 Overview: Added automatically from request for surgery [id number] Hypoxemia 05/20/2017 08/03/2018 Overview: Requiring HF O2 after extubation A/p Begin diuresis and oob to chair, wean O2 as able. 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 Lopez follows for benign tumor removed 2002 Closed fracture of lateral malleolus 11/25/2005 09/05/2008 IBS (irritable bowel syndrome) 1 Overview: with diarrhea and urgency Chronic heart failure with p reserved ejection fraction (HFpEF) 08/29/2021 Persistent atrial fibrillation 1 documented as of this encounter (statuses as of 02/13/2023) [facility]2018 History of Past illness Narrative* Problem Noted Date Resolved Date Hypervolemia 08/01/2018 08/03/2018 Overview: A/p Edema noted on exam and CXR. Begin diuresis and monitor closely RADHA (acute kidney injury) 08/01/20182017 Overview: History: Post-operative. Assessment: BUN/Cr normalizing Plan: Avoid hypotension. Renally dose medications Cardiac insufficiency 07/30/2018 07/31/2018 Overview: A/p Cardiac insuffiencey requiring epi, titrate for UO & monitor CVP On mechanically assisted ventilation 07/30/2018 07/31/2018 Overview: Grade 1 Airway A/p WTE Postoperative pain 07/30/2018 08/03/2018 Overview: A/p Controlled with WELD TECHNICIAN fentanyl, scheduled lidoderm patches and tyenol, prn oxycodone Stress hyperglycemia 07/30/2018 08/05/2018 Overview: Continue SS. Hypovolemia/fluctuating lacic acidosis 8 08/02/2018 Overview: A/p albumin given x1 Discharge planning issues 07/29/20182020 Overview: Discharge to SNF 08.06.2018. Lives in [facility], alone but has supportive family. PT/OT/RT recommend SNF. Appointments requested with [employer] and Cards. Preop testing 07/29/2018 08/03/2018 Overview: [facility] Surgeon: Jamie Jo M.D. Informed Consent Completed: yes STS Score: N/A CAD: No Is intended procedure a CABG: No - is a beta jhon ordered? Previously prescribed H & P completed: Yes PA/LAT: Completed CT: Completed MRI: N/A LE US: N/A Cath: Yes (outside images on syngo)- reviewed: No Echo:Completed EKG: Completed EF %: 65 PI's: N/A Carotid: N/A Mapping: N/A Dental: Completed (edentulous) PFT's: Completed Recent Labs 07/29/18 0746 WBC 8.47 HB 12.8 HCT 41.4 PLT 294 INR 1.1 CREAT 1.33* UA: results pending HCG:N/A ABO/ABO Confirmed: Yes Blood ordered: No SA Swab: Yes - results: Pending Last Dose of Anticoagulation: Last dose of Coumadin on 07/24 Op Note: N/A Pacemaker Check: N/A Implants: no Consults: 07/15 - Pulmonary -Aaliyah Stone PA-C RE: COPD Continue current maintenance Rx at this time. Will re-assess after cardiac surgery. Based on oximetry today, you do not require supplemental oxygen with rest or exertion. Will obtain nocturnal oxygen from [employer]. Continue rescue inhaler as needed for relief of shortness of breath or wheezing, up to 4 times daily. Re-assess in 3 months, sooner if needed. 06/14/18: Hematology - Maria Isabel Tay MD RE: Small cell Lymphoma (in remission) - Continued observation and repeat CT chest abdomen pelvis in 3 months - proceed with valvular heart surgery and follow with cardiology. - Continue Coumadin. - repeat CBC, CMP, LDH, immunofixation & OV in 3 months. DM: No Cardiac Surgical prep: DR. JO AWARE OF ELEVATED CREATININE SIGNATURE: Bell Johnson APRN.PRODUCT SAFETY ENGINEER CHECKED BY: LEE ANN DATE of SERVICE: 07/29/2018 TIME of SERVICE: 8:22 AM Encounter for preoperative a nesthesiology assessment for cardiac surgery 07/29/2018 08/29/2021 Bone metastasis 10/13/2017 08/29/2021 Overview: Added automatically from request for surgery [id number] Hypoxemia 05/20/2017 08/03/2018 Overview: Requiring HF O2 after extubation A/p Begin diuresis and oob to chair, wean O2 as able. 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 Lopez follows for benign tumor removed 2002 Closed fracture of lateral malleolus 11/25/2005 09/05/2008 IBS (irritable bowel syndrome) 1 Overview: with diarrhea and urgency Chronic heart failure with p reserved ejection fraction (HFpEF) 08/29/2021 Persistent atrial fibrillation 1 documented as of this encounter (statuses as of 02/16/2023) [facility]09-30-2018 History of Past illness Narrative* Problem Noted Date Resolved Date Hypervolemia 08/01/2018 08/03/2018 Overview: A/p Edema noted on exam and CXR. Begin diuresis and monitor closely RADHA (acute kidney injury) 08/01/20182017 Overview: History: Post-operative. Assessment: BUN/Cr normalizing Plan: Avoid hypotension. Renally dose medications Cardiac insufficiency 07/30/2018 07/31/2018 Overview: A/p Cardiac insuffiencey requiring epi, titrate for UO & monitor CVP On mechanically assisted ventilation 07/30/2018 07/31/2018 Overview: Grade 1 Airway A/p WTE Postoperative pain 07/30/2018 08/03/2018 Overview: A/p Controlled with WELD TECHNICIAN fentanyl, scheduled lidoderm patches and tyenol, prn oxycodone Stress hyperglycemia 07/30/2018 08/05/2018 Overview: Continue SS. Hypovolemia/fluctuating lacic acidosis 8 08/02/2018 Overview: A/p albumin given x1 Discharge planning issues 07/29/20182020 Overview: Discharge to SNF 08.06.2018. Lives in [facility], alone but has supportive family. PT/OT/RT recommend SNF. Appointments requested with [employer] and Cards. Preop testing 07/29/2018 08/03/2018 Overview: [facility] Surgeon: Jamie Jo M.D. Informed Consent Completed: yes STS Score: N/A CAD: No Is intended procedure a CABG: No - is a beta jhon ordered? Previously prescribed H & P completed: Yes PA/LAT: Completed CT: Completed MRI: N/A LE US: N/A Cath: Yes (outside images on syngo)- reviewed: No Echo:Completed EKG: Completed EF %: 65 PI's: N/A Carotid: N/A Mapping: N/A Dental: Completed (edentulous) PFT's: Completed Recent Labs 07/29/18 0746 WBC 8.47 HB 12.8 HCT 41.4 PLT 294 INR 1.1 CREAT 1.33* UA: results pending HCG:N/A ABO/ABO Confirmed: Yes Blood ordered: No SA Swab: Yes - results: Pending Last Dose of Anticoagulation: Last dose of Coumadin on 07/24 Op Note: N/A Pacemaker Check: N/A Implants: no Consults: 07/15 - Pulmonary -Aaliyah Stone PA-C RE: COPD Continue current maintenance Rx at this time. Will re-assess after cardiac surgery. Based on oximetry today, you do not require supplemental oxygen with rest or exertion. Will obtain nocturnal oxygen from [employer]. Continue rescue inhaler as needed for relief of shortness of breath or wheezing, up to 4 times daily. Re-assess in 3 months, sooner if needed. 06/14/18: Hematology - Maria Isabel Tay MD RE: Small cell Lymphoma (in remission) - Continued observation and repeat CT chest abdomen pelvis in 3 months - proceed with valvular heart surgery and follow with cardiology. - Continue Coumadin. - repeat CBC, CMP, LDH, immunofixation & OV in 3 months. DM: No Cardiac Surgical prep: DR. JO AWARE OF ELEVATED CREATININE SIGNATURE: Bell Johnson APRN.PRODUCT SAFETY ENGINEER CHECKED BY: LEE ANN DATE of SERVICE: 07/29/2018 TIME of SERVICE: 8:22 AM Encounter for preoperative a nesthesiology assessment for cardiac surgery 07/29/2018 08/29/2021 Bone metastasis 10/13/2017 08/29/2021 Overview: Added automatically from request for surgery [id number] Hypoxemia 05/20/2017 08/03/2018 Overview: Requiring HF O2 after extubation A/p Begin diuresis and oob to chair, wean O2 as able. 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 Lopez follows for benign tumor removed 2002 Closed fracture of lateral malleolus 11/25/2005 09/05/2008 IBS (irritable bowel syndrome) 1 Overview: with diarrhea and urgency Chronic heart failure with p reserved ejection fraction (HFpEF) 08/29/2021 Persistent atrial fibrillation 1 documented as of this encounter (statuses as of 02/16/2023) [facility]09-30-2018 History of Past illness Narrative* Problem Noted Date Resolved Date Hypervolemia 08/01/2018 08/03/2018 Overview: A/p Edema noted on exam and CXR. Begin diuresis and monitor closely RADHA (acute kidney injury) 08/01/20182017 Overview: History: Post-operative. Assessment: BUN/Cr normalizing Plan: Avoid hypotension. Renally dose medications Cardiac insufficiency 07/30/2018 07/31/2018 Overview: A/p Cardiac insuffiencey requiring epi, titrate for UO & monitor CVP On mechanically assisted ventilation 07/30/2018 07/31/2018 Overview: Grade 1 Airway A/p WTE Postoperative pain 07/30/2018 08/03/2018 Overview: A/p Controlled with WELD TECHNICIAN fentanyl, scheduled lidoderm patches and tyenol, prn oxycodone Stress hyperglycemia 07/30/2018 08/05/2018 Overview: Continue SS. Hypovolemia/fluctuating lacic acidosis 8 08/02/2018 Overview: A/p albumin given x1 Discharge planning issues 07/29/20182020 Overview: Discharge to SNF 08.06.2018. Lives in [facility], alone but has supportive family. PT/OT/RT recommend SNF. Appointments requested with [employer] and Cards. Preop testing 07/29/2018 08/03/2018 Overview: [facility] PRE-[facility] Surgeon: Jamie Jo M.D. Informed Consent Completed: yes STS Score: N/A CAD: No Is intended procedure a CABG: No - is a beta jhon ordered? Previously prescribed H & P completed: Yes PA/LAT: Completed CT: Completed MRI: N/A LE US: N/A Cath: Yes (outside images on syngo)- reviewed: No Echo:Completed EKG: Completed EF %: 65 PI's: N/A Carotid: N/A Mapping: N/A Dental: Completed (edentulous) PFT's: Completed Recent Labs 07/29/18 0746 WBC 8.47 HB 12.8 HCT 41.4 PLT 294 INR 1.1 CREAT 1.33* UA: results pending HCG:N/A ABO/ABO Confirmed: Yes Blood ordered: No SA Swab: Yes - results: Pending Last Dose of Anticoagulation: Last dose of Coumadin on 07/24 Op Note: N/A Pacemaker Check: N/A Implants: no Consults: 07/15 - Pulmonary -Aaliyah Stone PA-C RE: COPD Continue current maintenance Rx at this time. Will re-assess after cardiac surgery. Based on oximetry today, you do not require supplemental oxygen with rest or exertion. Will obtain nocturnal oxygen from [employer]. Continue rescue inhaler as needed for relief of shortness of breath or wheezing, up to 4 times daily. Re-assess in 3 months, sooner if needed. 06/14/18: Hematology - Maria Isabel Tay MD RE: Small cell Lymphoma (in remission) - Continued observation and repeat CT chest abdomen pelvis in 3 months - proceed with valvular heart surgery and follow with cardiology. - Continue Coumadin. - repeat CBC, CMP, LDH, immunofixation & OV in 3 months. DM: No Cardiac Surgical prep: DR. JO AWARE OF ELEVATED CREATININE SIGNATURE: Bell Johnson APRN.PRODUCT SAFETY ENGINEER CHECKED BY: LEE ANN DATE of SERVICE: 07/29/2018 TIME of SERVICE: 8:22 AM Encounter for preoperative a nesthesiology assessment for cardiac surgery 07/29/2018 08/29/2021 Bone metastasis 10/13/2017 08/29/2021 Overview: Added automatically from request for surgery [id number] Hypoxemia 05/20/2017 08/03/2018 Overview: Requiring HF O2 after extubation A/p Begin diuresis and oob to chair, wean O2 as able. 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 Lopez follows for benign tumor removed 2002 Closed fracture of lateral malleolus 11/25/2005 09/05/2008 IBS (irritable bowel syndrome) 1 Overview: with diarrhea and urgency Chronic heart failure with p reserved ejection fraction (HFpEF) 08/29/2021 Persistent atrial fibrillation 1 documented as of this encounter (statuses as of 03/09/2023) [facility]09-30-2018 History of Past illness Narrative* Problem Noted Date Resolved Date Hypervolemia 08/01/2018 08/03/2018 Overview: A/p Edema noted on exam and CXR. Begin diuresis and monitor closely RADHA (acute kidney injury) 08/01/20182017 Overview: History: Post-operative. Assessment: BUN/Cr normalizing Plan: Avoid hypotension. Renally dose medications Cardiac insufficiency 07/30/2018 07/31/2018 Overview: A/p Cardiac insuffiencey requiring epi, titrate for UO & monitor CVP On mechanically assisted ventilation 07/30/2018 07/31/2018 Overview: Grade 1 Airway A/p WTE Postoperative pain 07/30/2018 08/03/2018 Overview: A/p Controlled with WELD TECHNICIAN fentanyl, scheduled lidoderm patches and tyenol, prn oxycodone Stress hyperglycemia 07/30/2018 08/05/2018 Overview: Continue SS. Hypovolemia/fluctuating lacic acidosis 8 08/02/2018 Overview: A/p albumin given x1 Discharge planning issues 07/29/20182020 Overview: Discharge to SNF 08.06.2018. Lives in [facility], alone but has supportive family. PT/OT/RT recommend SNF. Appointments requested with [employer] and Cards. Preop testing 07/29/2018 08/03/2018 Overview: [facility] PRE-OP CHECK[facility] Surgeon: Jamie Jo M.D. Informed Consent Completed: yes STS Score: N/A CAD: No Is intended procedure a CABG: No - is a beta jhon ordered? Previously prescribed H & P completed: Yes PA/LAT: Completed CT: Completed MRI: N/A LE US: N/A Cath: Yes (outside images on syngo)- reviewed: No Echo:Completed EKG: Completed EF %: 65 PI's: N/A Carotid: N/A Mapping: N/A Dental: Completed (edentulous) PFT's: Completed Recent Labs 07/29/18 0746 WBC 8.47 HB 12.8 HCT 41.4 PLT 294 INR 1.1 CREAT 1.33* UA: results pending HCG:N/A ABO/ABO Confirmed: Yes Blood ordered: No SA Swab: Yes - results: Pending Last Dose of Anticoagulation: Last dose of Coumadin on 07/24 Op Note: N/A Pacemaker Check: N/A Implants: no Consults: 07/15 - Pulmonary -Aaliyah Stone PA-C RE: COPD Continue current maintenance Rx at this time. Will re-assess after cardiac surgery. Based on oximetry today, you do not require supplemental oxygen with rest or exertion. Will obtain nocturnal oxygen from [employer]. Continue rescue inhaler as needed for relief of shortness of breath or wheezing, up to 4 times daily. Re-assess in 3 months, sooner if needed. 06/14/18: Hematology - Maria Isabel Tay MD RE: Small cell Lymphoma (in remission) - Continued observation and repeat CT chest abdomen pelvis in 3 months - proceed with valvular heart surgery and follow with cardiology. - Continue Coumadin. - repeat CBC, CMP, LDH, immunofixation & OV in 3 months. DM: No Cardiac Surgical prep: DR. JO AWARE OF ELEVATED CREATININE SIGNATURE: Bell Johnson APRN.PRODUCT SAFETY ENGINEER CHECKED BY: LEE ANN DATE of SERVICE: 07/29/2018 TIME of SERVICE: 8:22 AM Encounter for preoperative a nesthesiology assessment for cardiac surgery 07/29/2018 08/29/2021 Bone metastasis 10/13/2017 08/29/2021 Overview: Added automatically from request for surgery [id number] Hypoxemia 05/20/2017 08/03/2018 Overview: Requiring HF O2 after extubation A/p Begin diuresis and oob to chair, wean O2 as able. 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 Lopez follows for benign tumor removed 2002 Closed fracture of lateral malleolus 11/25/2005 09/05/2008 IBS (irritable bowel syndrome) 1 Overview: with diarrhea and urgency Chronic heart failure with p reserved ejection fraction (HFpEF) 08/29/2021 Persistent atrial fibrillation 1 documented as of this encounter (statuses as of 04/13/2023) [facility]09[facility]-2018 History of Past illness Narrative* Problem Noted Date Resolved Date Hypervolemia 08/01/2018 08/03/2018 Overview: A/p Edema noted on exam and CXR. Begin diuresis and monitor closely RADHA (acute kidney injury) 08/01/20182017 Overview: History: Post-operative. Assessment: BUN/Cr normalizing Plan: Avoid hypotension. Renally dose medications Cardiac insufficiency 07/30/2018 07/31/2018 Overview: A/p Cardiac insuffiencey requiring epi, titrate for UO & monitor CVP On mechanically assisted ventilation 07/30/2018 07/31/2018 Overview: Grade 1 Airway A/p WTE Postoperative pain 07/30/2018 08/03/2018 Overview: A/p Controlled with WELD TECHNICIAN fentanyl, scheduled lidoderm patches and tyenol, prn oxycodone Stress hyperglycemia 07/30/2018 08/05/2018 Overview: Continue SS. Hypovolemia/fluctuating lacic acidosis 8 08/02/2018 Overview: A/p albumin given x1 Discharge planning issues 07/29/20182020 Overview: Discharge to SNF 08.06.2018. Lives in [facility], alone but has supportive family. PT/OT/RT recommend SNF. Appointments requested with [employer] and Cards. Preop testing 07/29/2018 08/03/2018 Overview: [facility] PRE-OP CHECKLIST Surgeon: Jamie Jo M.D. Informed Consent Completed: yes STS Score: N/A CAD: No Is intended procedure a CABG: No - is a beta jhon ordered? Previously prescribed H & P completed: Yes PA/LAT: Completed CT: Completed MRI: N/A LE US: N/A Cath: Yes (outside images on syngo)- reviewed: No Echo:Completed EKG: Completed EF %: 65 PI's: N/A Carotid: N/A Mapping: N/A Dental: Completed (edentulous) PFT's: Completed Recent Labs 07/29/18 0746 WBC 8.47 HB 12.8 HCT 41.4 PLT 294 INR 1.1 CREAT 1.33* UA: results pending HCG:N/A ABO/ABO Confirmed: Yes Blood ordered: No SA Swab: Yes - results: Pending Last Dose of Anticoagulation: Last dose of Coumadin on 07/24 Op Note: N/A Pacemaker Check: N/A Implants: no Consults: 07/15 - Pulmonary -Aaliyah Stone PA-C RE: COPD Continue current maintenance Rx at this time. Will re-assess after cardiac surgery. Based on oximetry today, you do not require supplemental oxygen with rest or exertion. Will obtain nocturnal oxygen from [employer]. Continue rescue inhaler as needed for relief of shortness of breath or wheezing, up to 4 times daily. Re-assess in 3 months, sooner if needed. 06/14/18: Hematology - Maria Isabel Tay MD RE: Small cell Lymphoma (in remission) - Continued observation and repeat CT chest abdomen pelvis in 3 months - proceed with valvular heart surgery and follow with cardiology. - Continue Coumadin. - repeat CBC, CMP, LDH, immunofixation & OV in 3 months. DM: No Cardiac Surgical prep: DR. JO AWARE OF ELEVATED CREATININE SIGNATURE: Bell Johnson APRN.PRODUCT SAFETY ENGINEER CHECKED BY: LEE ANN DATE of SERVICE: 07/29/2018 TIME of SERVICE: 8:22 AM Encounter for preoperative a nesthesiology assessment for cardiac surgery 07/29/2018 08/29/2021 Bone metastasis 10/13/2017 08/29/2021 Overview: Added automatically from request for surgery [id number] Hypoxemia 05/20/2017 08/03/2018 Overview: Requiring HF O2 after extubation A/p Begin diuresis and oob to chair, wean O2 as able. 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 Lopez follows for benign tumor removed 2002 Closed fracture of lateral malleolus 11/25/2005 09/05/2008 IBS (irritable bowel syndrome) 1 Overview: with diarrhea and urgency Chronic heart failure with p reserved ejection fraction (HFpEF) 08/29/2021 Persistent atrial fibrillation 1 documented as of this encounter (statuses as of 04/21/2023) [facility]09[facility]2018 History of Past illness Narrative* Problem Noted Date Resolved Date Hypervolemia 08/01/2018 08/03/2018 Overview: A/p Edema noted on exam and CXR. Begin diuresis and monitor closely RADHA (acute kidney injury) 08/01/20182017 Overview: History: Post-operative. Assessment: BUN/Cr normalizing Plan: Avoid hypotension. Renally dose medications Cardiac insufficiency 07/30/2018 07/31/2018 Overview: A/p Cardiac insuffiencey requiring epi, titrate for UO & monitor CVP On mechanically assisted ventilation 07/30/2018 07/31/2018 Overview: Grade 1 Airway A/p WTE Postoperative pain 07/30/2018 08/03/2018 Overview: A/p Controlled with WELD TECHNICIAN fentanyl, scheduled lidoderm patches and tyenol, prn oxycodone Stress hyperglycemia 07/30/2018 08/05/2018 Overview: Continue SS. Hypovolemia/fluctuating lacic acidosis 8 08/02/2018 Overview: A/p albumin given x1 Discharge planning issues 07/29/20182020 Overview: Discharge to SNF 08.06.2018. Lives in [facility], alone but has supportive family. PT/OT/RT recommend SNF. Appointments requested with [employer] and Cards. Preop testing 07/29/2018 08/03/2018 Overview: [facility] PRE-OP CHECKLIST Surgeon: Jamie Jo M.D. Informed Consent Completed: yes STS Score: N/A CAD: No Is intended procedure a CABG: No - is a beta jhon ordered? Previously prescribed H & P completed: Yes PA/LAT: Completed CT: Completed MRI: N/A LE US: N/A Cath: Yes (outside images on syngo)- reviewed: No Echo:Completed EKG: Completed EF %: 65 PI's: N/A Carotid: N/A Mapping: N/A Dental: Completed (edentulous) PFT's: Completed Recent Labs 07/29/18 0746 WBC 8.47 HB 12.8 HCT 41.4 PLT 294 INR 1.1 CREAT 1.33* UA: results pending HCG:N/A ABO/ABO Confirmed: Yes Blood ordered: No SA Swab: Yes - results: Pending Last Dose of Anticoagulation: Last dose of Coumadin on 07/24 Op Note: N/A Pacemaker Check: N/A Implants: no Consults: 07/15 - Pulmonary -Aaliyah Stone PA-C RE: COPD Continue current maintenance Rx at this time. Will re-assess after cardiac surgery. Based on oximetry today, you do not require supplemental oxygen with rest or exertion. Will obtain nocturnal oxygen from [employer]. Continue rescue inhaler as needed for relief of shortness of breath or wheezing, up to 4 times daily. Re-assess in 3 months, sooner if needed. 06/14/18: Hematology - Maria Isabel Tay MD RE: Small cell Lymphoma (in remission) - Continued observation and repeat CT chest abdomen pelvis in 3 months - proceed with valvular heart surgery and follow with cardiology. - Continue Coumadin. - repeat CBC, CMP, LDH, immunofixation & OV in 3 months. DM: No Cardiac Surgical prep: DR. JO AWARE OF ELEVATED CREATININE SIGNATURE: Bell Johnson APRN.PRODUCT SAFETY ENGINEER CHECKED BY: LEE ANN DATE of SERVICE: 07/29/2018 TIME of SERVICE: 8:22 AM Encounter for preoperative a nesthesiology assessment for cardiac surgery 07/29/2018 08/29/2021 Bone metastasis 10/13/2017 08/29/2021 Overview: Added automatically from request for surgery [id number] Hypoxemia 05/20/2017 08/03/2018 Overview: Requiring HF O2 after extubation A/p Begin diuresis and oob to chair, wean O2 as able. 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 Lopez follows for benign tumor removed 2002 Closed fracture of lateral malleolus 11/25/2005 09/05/2008 IBS (irritable bowel syndrome) 1 Overview: with diarrhea and urgency Chronic heart failure with p reserved ejection fraction (HFpEF) 08/29/2021 Persistent atrial fibrillation 1 documented as of this encounter (statuses as of 05/06/2023) [facility]2018 History of Past illness Narrative* Problem Noted Date Diagnosed Date Resolved Date Hypervolemia 08/01/2018 08/03/2018 Overview: A/p Edema noted on exam and CXR. Begin diuresis and monitor closely RADHA (acute kidney injury) 08/01/2018 Overview: History: Post-operative. Assessment: BUN/Cr normalizing Plan: Avoid hypotension. Renally dose medications Cardiac insufficiency 07/30/20182017 Overview: A/p Cardiac insuffiencey requiring epi, titrate for UO & monitor CVP On mechanically assisted ventilation 07/30/2018 07/31/2018 Overview: Grade 1 Airway A/p WTE Postoperative pain 07/30/2018 8 Overview: A/p Controlled with WELD TECHNICIAN fentanyl, scheduled lidoderm patches and tyenol, prn oxycodone Stress hyperglycemia 07/30/2018 018 Overview: Continue SS. Hypovolemia/fluctuating lacic acidosis 07/30/2018 08/02/2018 Overview: A/p albumin given x1 Discharge planning issues 07/29/2018 Overview: Discharge to SNF 08.06.2018. Lives in [facility], alone but has supportive family. PT/OT/RT recommend SNF. Appointments requested with [employer] and Cards. Preop testing 07/29/2018 08/03/2018 Overview: [facility] Surgeon: Jamie Jo M.D. Informed Consent Completed: yes STS Score: N/A CAD: No Is intended procedure a CABG: No - is a beta jhon ordered? Previously prescribed H & P completed: Yes PA/LAT: Completed CT: Completed MRI: N/A LE US: N/A Cath: Yes (outside images on syngo)- reviewed: No Echo:Completed EKG: Completed EF %: 65 PI's: N/A Carotid: N/A Mapping: N/A Dental: Completed (edentulous) PFT's: Completed Recent Labs 07/29/18 0746 WBC 8.47 HB 12.8 HCT 41.4 PLT 294 INR 1.1 CREAT 1.33* UA: results pending HCG:N/A ABO/ABO Confirmed: Yes Blood ordered: No SA Swab: Yes - results: Pending Last Dose of Anticoagulation: Last dose of Coumadin on 07/24 Op Note: N/A Pacemaker Check: N/A Implants: no Consults: 07/15 - Pulmonary -Aaliyah Stone PA-C RE: COPD Continue current maintenance Rx at this time. Will re-assess after cardiac surgery. Based on oximetry today, you do not require supplemental oxygen with rest or exertion. Will obtain nocturnal oxygen from [employer]. Continue rescue inhaler as needed for relief of shortness of breath or wheezing, up to 4 times daily. Re-assess in 3 months, sooner if needed. 06/14/18: Hematology - Maria Isabel Tay MD RE: Small cell Lymphoma (in remission) - Continued observation and repeat CT chest abdomen pelvis in 3 months - proceed with valvular heart surgery and follow with cardiology. - Continue Coumadin. - repeat CBC, CMP, LDH, immunofixation & OV in 3 months. DM: No Cardiac Surgical prep: DR. JO AWARE OF ELEVATED CREATININE SIGNATURE: Bell Johnson APRN.PRODUCT SAFETY ENGINEER CHECKED BY: LEE ANN DATE of SERVICE: 07/29/2018 TIME of SERVICE: 8:22 AM Encounter for preoperative a nesthesiology assessment for cardiac surgery 07/29/2018 Bone metastasis 10/13/2017 08/29/2021 Overview: Added automatically from request for surgery [id number] Hypoxemia 05/20/2017 08/03/2018 Overview: Requiring HF O2 after extubation A/p Begin diuresis and oob to chair, wean O2 as able. 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 Lopez follows for benign tumor removed 2002 Closed fracture of lateral malleolus 11/25/2005 09/05/2008 IBS (irritable bowel syndrome) 08/03/2018 Overview: with diarrhea and urgency Chronic heart failure with p reserved ejection fraction (HFpEF) 08/29/2021 Persistent atrial fibrillation 08/29/2021 documented as of this encounter (statuses as of 07/13/2023) [facility]09-30-2018 History of Past illness Narrative* Problem Noted Date Diagnosed Date Resolved Date Hypervolemia 08/01/2018 08/03/2018 Overview: A/p Edema noted on exam and CXR. Begin diuresis and monitor closely RADHA (acute kidney injury) 08/01/2018 Overview: History: Post-operative. Assessment: BUN/Cr normalizing Plan: Avoid hypotension. Renally dose medications Cardiac insufficiency 07/30/20182017 Overview: A/p Cardiac insuffiencey requiring epi, titrate for UO & monitor CVP On mechanically assisted ventilation 07/30/2018 07/31/2018 Overview: Grade 1 Airway A/p WTE Postoperative pain 07/30/2018 8 Overview: A/p Controlled with WELD TECHNICIAN fentanyl, scheduled lidoderm patches and tyenol, prn oxycodone Stress hyperglycemia 07/30/2018 018 Overview: Continue SS. Hypovolemia/fluctuating lacic acidosis 07/30/2018 08/02/2018 Overview: A/p albumin given x1 Discharge planning issues 07/29/2018 Overview: Discharge to SNF 08.06.2018. Lives in [facility], alone but has supportive family. PT/OT/RT recommend SNF. Appointments requested with [employer] and Cards. Preop testing 07/29/2018 08/03/2018 Overview: [facility] PRE-OP [facility] Surgeon: Jamie Jo M.D. Informed Consent Completed: yes STS Score: N/A CAD: No Is intended procedure a CABG: No - is a beta jhon ordered? Previously prescribed H & P completed: Yes PA/LAT: Completed CT: Completed MRI: N/A LE US: N/A Cath: Yes (outside images on syngo)- reviewed: No Echo:Completed EKG: Completed EF %: 65 PI's: N/A Carotid: N/A Mapping: N/A Dental: Completed (edentulous) PFT's: Completed Recent Labs 07/29/18 0746 WBC 8.47 HB 12.8 HCT 41.4 PLT 294 INR 1.1 CREAT 1.33* UA: results pending HCG:N/A ABO/ABO Confirmed: Yes Blood ordered: No SA Swab: Yes - results: Pending Last Dose of Anticoagulation: Last dose of Coumadin on 07/24 Op Note: N/A Pacemaker Check: N/A Implants: no Consults: 07/15 - Pulmonary -Aaliyah Stone PA-C RE: COPD Continue current maintenance Rx at this time. Will re-assess after cardiac surgery. Based on oximetry today, you do not require supplemental oxygen with rest or exertion. Will obtain nocturnal oxygen from [employer]. Continue rescue inhaler as needed for relief of shortness of breath or wheezing, up to 4 times daily. Re-assess in 3 months, sooner if needed. 06/14/18: Hematology - Maria Isabel Tay MD RE: Small cell Lymphoma (in remission) - Continued observation and repeat CT chest abdomen pelvis in 3 months - proceed with valvular heart surgery and follow with cardiology. - Continue Coumadin. - repeat CBC, CMP, LDH, immunofixation & OV in 3 months. DM: No Cardiac Surgical prep: DR. JO AWARE OF ELEVATED CREATININE SIGNATURE: Bell Johnson APRN.PRODUCT SAFETY ENGINEER CHECKED BY: LEE ANN DATE of SERVICE: 07/29/2018 TIME of SERVICE: 8:22 AM Encounter for preoperative a nesthesiology assessment for cardiac surgery 07/29/2018 Bone metastasis 10/13/2017 08/29/2021 Overview: Added automatically from request for surgery [id number] Hypoxemia 05/20/2017 08/03/2018 Overview: Requiring HF O2 after extubation A/p Begin diuresis and oob to chair, wean O2 as able. 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 Lopez follows for benign tumor removed 2002 Closed fracture of lateral malleolus 11/25/2005 09/05/2008 IBS (irritable bowel syndrome) 08/03/2018 Overview: with diarrhea and urgency Chronic heart failure with p reserved ejection fraction (HFpEF) 08/29/2021 Persistent atrial fibrillation 08/29/2021 documented as of this encounter (statuses as of 07/24/2023) [facility]09-30-2018 History of Past illness Narrative* Problem Noted Date Diagnosed Date Resolved Date Hypervolemia 08/01/2018 08/03/2018 Overview: A/p Edema noted on exam and CXR. Begin diuresis and monitor closely RADHA (acute kidney injury) 08/01/2018 Overview: History: Post-operative. Assessment: BUN/Cr normalizing Plan: Avoid hypotension. Renally dose medications Cardiac insufficiency 07/30/20182017 Overview: A/p Cardiac insuffiencey requiring epi, titrate for UO & monitor CVP On mechanically assisted ventilation 07/30/2018 07/31/2018 Overview: Grade 1 Airway A/p WTE Postoperative pain 07/30/2018 8 Overview: A/p Controlled with WELD TECHNICIAN fentanyl, scheduled lidoderm patches and tyenol, prn oxycodone Stress hyperglycemia 07/30/2018 018 Overview: Continue SS. Hypovolemia/fluctuating lacic acidosis 07/30/2018 08/02/2018 Overview: A/p albumin given x1 Discharge planning issues 07/29/2018 Overview: Discharge to SNF 08.06.2018. Lives in [place], alone but has supportive family. PT/OT/RT recommend SNF. Appointments requested with [employer] and Cards. Preop testing 07/29/2018 08/03/2018 Overview: [facility] PRE-OP [facility] Surgeon: Jamie Jo M.D. Informed Consent Completed: yes STS Score: N/A CAD: No Is intended procedure a CABG: No - is a beta jhon ordered? Previously prescribed H & P completed: Yes PA/LAT: Completed CT: Completed MRI: N/A LE US: N/A Cath: Yes (outside images on syngo)- reviewed: No Echo:Completed EKG: Completed EF %: 65 PI's: N/A Carotid: N/A Mapping: N/A Dental: Completed (edentulous) PFT's: Completed Recent Labs 07/29/18 0746 WBC 8.47 HB 12.8 HCT 41.4 PLT 294 INR 1.1 CREAT 1.33* UA: results pending HCG:N/A ABO/ABO Confirmed: Yes Blood ordered: No SA Swab: Yes - results: Pending Last Dose of Anticoagulation: Last dose of Coumadin on 07/24 Op Note: N/A Pacemaker Check: N/A Implants: no Consults: 07/15 - Pulmonary -Aaliyah Stone PA-C RE: COPD Continue current maintenance Rx at this time. Will re-assess after cardiac surgery. Based on oximetry today, you do not require supplemental oxygen with rest or exertion. Will obtain nocturnal oxygen from [employer]. Continue rescue inhaler as needed for relief of shortness of breath or wheezing, up to 4 times daily. Re-assess in 3 months, sooner if needed. 06/14/18: Hematology - Maria Isabel Tay MD RE: Small cell Lymphoma (in remission) - Continued observation and repeat CT chest abdomen pelvis in 3 months - proceed with valvular heart surgery and follow with cardiology. - Continue Coumadin. - repeat CBC, CMP, LDH, immunofixation & OV in 3 months. DM: No Cardiac Surgical prep: DR. JO AWARE OF ELEVATED CREATININE SIGNATURE: Bell Johnson APRN.PRODUCT SAFETY ENGINEER CHECKED BY: LEE ANN DATE of SERVICE: 07/29/2018 TIME of SERVICE: 8:22 AM Encounter for preoperative a nesthesiology assessment for cardiac surgery 07/29/2018 Bone metastasis 10/13/2017 08/29/2021 Overview: Added automatically from request for surgery [id number] Hypoxemia 05/20/2017 08/03/2018 Overview: Requiring HF O2 after extubation A/p Begin diuresis and oob to chair, wean O2 as able. 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 Lopez follows for benign tumor removed 2002 Closed fracture of lateral malleolus 11/25/2005 09/05/2008 IBS (irritable bowel syndrome) 08/03/2018 Overview: with diarrhea and urgency Chronic heart failure with p reserved ejection fraction (HFpEF) 08/29/2021 Persistent atrial fibrillation 08/29/2021 documented as of this encounter (statuses as of 08/03/2023) [facility]09-[facility]-2018 History of Past illness Narrative* Problem Noted Date Diagnosed Date Resolved Date Hypervolemia 08/01/2018 08/03/2018 Overview: A/p Edema noted on exam and CXR. Begin diuresis and monitor closely RADHA (acute kidney injury) 08/01/2018 Overview: History: Post-operative. Assessment: BUN/Cr normalizing Plan: Avoid hypotension. Renally dose medications Cardiac insufficiency 07/30/20182017 Overview: A/p Cardiac insuffiencey requiring epi, titrate for UO & monitor CVP On mechanically assisted ventilation 07/30/2018 07/31/2018 Overview: Grade 1 Airway A/p WTE Postoperative pain 07/30/2018 8 Overview: A/p Controlled with WELD TECHNICIAN fentanyl, scheduled lidoderm patches and tyenol, prn oxycodone Stress hyperglycemia 07/30/2018 018 Overview: Continue SS. Hypovolemia/fluctuating lacic acidosis 07/30/2018 08/02/2018 Overview: A/p albumin given x1 Discharge planning issues 07/29/2018 Overview: Discharge to SNF 08.06.2018. Lives in [facility], alone but has supportive family. PT/OT/RT recommend SNF. Appointments requested with [employer] and Cards. Preop testing 07/29/2018 08/03/2018 Overview: [facility] PRE-OP CHECK[facility] Surgeon: Jamie Jo M.D. Informed Consent Completed: yes STS Score: N/A CAD: No Is intended procedure a CABG: No - is a beta jhon ordered? Previously prescribed H & P completed: Yes PA/LAT: Completed CT: Completed MRI: N/A LE US: N/A Cath: Yes (outside images on syngo)- reviewed: No Echo:Completed EKG: Completed EF %: 65 PI's: N/A Carotid: N/A Mapping: N/A Dental: Completed (edentulous) PFT's: Completed Recent Labs 07/29/18 0746 WBC 8.47 HB 12.8 HCT 41.4 PLT 294 INR 1.1 CREAT 1.33* UA: results pending HCG:N/A ABO/ABO Confirmed: Yes Blood ordered: No SA Swab: Yes - results: Pending Last Dose of Anticoagulation: Last dose of Coumadin on 07/24 Op Note: N/A Pacemaker Check: N/A Implants: no Consults: 07/15 - Pulmonary -Aaliyah Stone PA-C RE: COPD Continue current maintenance Rx at this time. Will re-assess after cardiac surgery. Based on oximetry today, you do not require supplemental oxygen with rest or exertion. Will obtain nocturnal oxygen from [employer]. Continue rescue inhaler as needed for relief of shortness of breath or wheezing, up to 4 times daily. Re-assess in 3 months, sooner if needed. 06/14/18: Hematology - Maria Isabel Tay MD RE: Small cell Lymphoma (in remission) - Continued observation and repeat CT chest abdomen pelvis in 3 months - proceed with valvular heart surgery and follow with cardiology. - Continue Coumadin. - repeat CBC, CMP, LDH, immunofixation & OV in 3 months. DM: No Cardiac Surgical prep: DR. JO AWARE OF ELEVATED CREATININE SIGNATURE: Bell Johnson APRN.PRODUCT SAFETY ENGINEER CHECKED BY: LEE ANN DATE of SERVICE: 07/29/2018 TIME of SERVICE: 8:22 AM Encounter for preoperative a nesthesiology assessment for cardiac surgery 07/29/2018 Bone metastasis 10/13/2017 08/29/2021 Overview: Added automatically from request for surgery [id number] Hypoxemia 05/20/2017 08/03/2018 Overview: Requiring HF O2 after extubation A/p Begin diuresis and oob to chair, wean O2 as able. 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 Lopez follows for benign tumor removed 2002 Closed fracture of lateral malleolus 11/25/2005 09/05/2008 IBS (irritable bowel syndrome) 08/03/2018 Overview: with diarrhea and urgency Chronic heart failure with p reserved ejection fraction (HFpEF) 08/29/2021 Persistent atrial fibrillation 08/29/2021 documented as of this encounter (statuses as of 08/17/2023) [facility]09[facility]-2018 History of Past illness Narrative* Problem Noted Date Diagnosed Date Resolved Date Hypervolemia 08/01/2018 08/03/2018 Overview: A/p Edema noted on exam and CXR. Begin diuresis and monitor closely RADHA (acute kidney injury) 08/01/2018 Overview: History: Post-operative. Assessment: BUN/Cr normalizing Plan: Avoid hypotension. Renally dose medications Cardiac insufficiency 07/30/20182017 Overview: A/p Cardiac insuffiencey requiring epi, titrate for UO & monitor CVP On mechanically assisted ventilation 07/30/2018 07/31/2018 Overview: Grade 1 Airway A/p WTE Postoperative pain 07/30/2018 8 Overview: A/p Controlled with WELD TECHNICIAN fentanyl, scheduled lidoderm patches and tyenol, prn oxycodone Stress hyperglycemia 07/30/2018 018 Overview: Continue SS. Hypovolemia/fluctuating lacic acidosis 07/30/2018 08/02/2018 Overview: A/p albumin given x1 Discharge planning issues 07/29/2018 Overview: Discharge to SNF 08.06.2018. Lives in [facility], alone but has supportive family. PT/OT/RT recommend SNF. Appointments requested with [employer] and Cards. Preop testing 07/29/2018 08/03/2018 Overview: [facility] PRE-OP CHECKLIST Surgeon: Jamie Jo M.D. Informed Consent Completed: yes STS Score: N/A CAD: No Is intended procedure a CABG: No - is a beta jhon ordered? Previously prescribed H & P completed: Yes PA/LAT: Completed CT: Completed MRI: N/A LE US: N/A Cath: Yes (outside images on syngo)- reviewed: No Echo:Completed EKG: Completed EF %: 65 PI's: N/A Carotid: N/A Mapping: N/A Dental: Completed (edentulous) PFT's: Completed Recent Labs 07/29/18 0746 WBC 8.47 HB 12.8 HCT 41.4 PLT 294 INR 1.1 CREAT 1.33* UA: results pending HCG:N/A ABO/ABO Confirmed: Yes Blood ordered: No SA Swab: Yes - results: Pending Last Dose of Anticoagulation: Last dose of Coumadin on 07/24 Op Note: N/A Pacemaker Check: N/A Implants: no Consults: 07/15 - Pulmonary -Aaliyah Stone PA-C RE: COPD Continue current maintenance Rx at this time. Will re-assess after cardiac surgery. Based on oximetry today, you do not require supplemental oxygen with rest or exertion. Will obtain nocturnal oxygen from [employer]. Continue rescue inhaler as needed for relief of shortness of breath or wheezing, up to 4 times daily. Re-assess in 3 months, sooner if needed. 06/14/18: Hematology - Maria Isabel Tay MD RE: Small cell Lymphoma (in remission) - Continued observation and repeat CT chest abdomen pelvis in 3 months - proceed with valvular heart surgery and follow with cardiology. - Continue Coumadin. - repeat CBC, CMP, LDH, immunofixation & OV in 3 months. DM: No Cardiac Surgical prep: DR. JO AWARE OF ELEVATED CREATININE SIGNATURE: Bell Johnson APRN.PRODUCT SAFETY ENGINEER CHECKED BY: LEE ANN DATE of SERVICE: 07/29/2018 TIME of SERVICE: 8:22 AM Encounter for preoperative a nesthesiology assessment for cardiac surgery 07/29/2018 Bone metastasis 10/13/2017 08/29/2021 Overview: Added automatically from request for surgery [id number] Hypoxemia 05/20/2017 08/03/2018 Overview: Requiring HF O2 after extubation A/p Begin diuresis and oob to chair, wean O2 as able. 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 Lopez follows for benign tumor removed 2002 Closed fracture of lateral malleolus 11/25/2005 09/05/2008 IBS (irritable bowel syndrome) 08/03/2018 Overview: with diarrhea and urgency Chronic heart failure with p reserved ejection fraction (HFpEF) 08/29/2021 Persistent atrial fibrillation 08/29/2021 documented as of this encounter (statuses as of 08/25/2023) [facility] History of Past illness Narrative* Problem Noted Date Diagnosed Date Resolved Date Hypervolemia 08/01/2018 08/03/2018 Overview: A/p Edema noted on exam and CXR. Begin diuresis and monitor closely RADHA (acute kidney injury) 08/01/2018 Overview: History: Post-operative. Assessment: BUN/Cr normalizing Plan: Avoid hypotension. Renally dose medications Cardiac insufficiency 07/30/20182017 Overview: A/p Cardiac insuffiencey requiring epi, titrate for UO & monitor CVP On mechanically assisted ventilation 07/30/2018 07/31/2018 Overview: Grade 1 Airway A/p WTE Postoperative pain 07/30/2018 8 Overview: A/p Controlled with WELD TECHNICIAN fentanyl, scheduled lidoderm patches and tyenol, prn oxycodone Stress hyperglycemia 07/30/2018 018 Overview: Continue SS. Hypovolemia/fluctuating lacic acidosis 07/30/2018 08/02/2018 Overview: A/p albumin given x1 Discharge planning issues 07/29/2018 Overview: Discharge to SNF 08.06.2018. Lives in [facility], alone but has supportive family. PT/OT/RT recommend SNF. Appointments requested with [employer] and Cards. Preop testing 07/29/2018 08/03/2018 Overview: [facility] PRE-OP CHECKLIST Surgeon: Jamie Jo M.D. Informed Consent Completed: yes STS Score: N/A CAD: No Is intended procedure a CABG: No - is a beta jhon ordered? Previously prescribed H & P completed: Yes PA/LAT: Completed CT: Completed MRI: N/A LE US: N/A Cath: Yes (outside images on syngo)- reviewed: No Echo:Completed EKG: Completed EF %: 65 PI's: N/A Carotid: N/A Mapping: N/A Dental: Completed (edentulous) PFT's: Completed Recent Labs 07/29/18 0746 WBC 8.47 HB 12.8 HCT 41.4 PLT 294 INR 1.1 CREAT 1.33* UA: results pending HCG:N/A ABO/ABO Confirmed: Yes Blood ordered: No SA Swab: Yes - results: Pending Last Dose of Anticoagulation: Last dose of Coumadin on 07/24 Op Note: N/A Pacemaker Check: N/A Implants: no Consults: 07/15 - Pulmonary -Aaliyah Stone PA-C RE: COPD Continue current maintenance Rx at this time. Will re-assess after cardiac surgery. Based on oximetry today, you do not require supplemental oxygen with rest or exertion. Will obtain nocturnal oxygen from [employer]. Continue rescue inhaler as needed for relief of shortness of breath or wheezing, up to 4 times daily. Re-assess in 3 months, sooner if needed. 06/14/18: Hematology - Maria Isabel Tay MD RE: Small cell Lymphoma (in remission) - Continued observation and repeat CT chest abdomen pelvis in 3 months - proceed with valvular heart surgery and follow with cardiology. - Continue Coumadin. - repeat CBC, CMP, LDH, immunofixation & OV in 3 months. DM: No Cardiac Surgical prep: DR. JO AWARE OF ELEVATED CREATININE SIGNATURE: Bell Johnson APRN.PRODUCT SAFETY ENGINEER CHECKED BY: LEE ANN DATE of SERVICE: 07/29/2018 TIME of SERVICE: 8:22 AM Encounter for preoperative a nesthesiology assessment for cardiac surgery 07/29/2018 Bone metastasis 10/13/2017 08/29/2021 Overview: Added automatically from request for surgery [id number] Hypoxemia 05/20/2017 08/03/2018 Overview: Requiring HF O2 after extubation A/p Begin diuresis and oob to chair, wean O2 as able. 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 Lopez follows for benign tumor removed 2002 Closed fracture of lateral malleolus 11/25/2005 09/05/2008 IBS (irritable bowel syndrome) 08/03/2018 Overview: with diarrhea and urgency Chronic heart failure with p reserved ejection fraction (HFpEF) 08/29/2021 Persistent atrial fibrillation 08/29/2021 documented as of this encounter (statuses as of 09/05/2023) [facility] History of Past illness Narrative* Problem Noted Date Diagnosed Date Resolved Date Hypervolemia 08/01/2018 08/03/2018 Overview: A/p Edema noted on exam and CXR. Begin diuresis and monitor closely RADHA (acute kidney injury) 08/01/2018 Overview: History: Post-operative. Assessment: BUN/Cr normalizing Plan: Avoid hypotension. Renally dose medications Cardiac insufficiency 07/30/20182017 Overview: A/p Cardiac insuffiencey requiring epi, titrate for UO & monitor CVP On mechanically assisted ventilation 07/30/2018 07/31/2018 Overview: Grade 1 Airway A/p WTE Postoperative pain 07/30/2018 8 Overview: A/p Controlled with WELD TECHNICIAN fentanyl, scheduled lidoderm patches and tyenol, prn oxycodone Stress hyperglycemia 07/30/2018 018 Overview: Continue SS. Hypovolemia/fluctuating lacic acidosis 07/30/2018 08/02/2018 Overview: A/p albumin given x1 Discharge planning issues 07/29/2018 Overview: Discharge to SNF 08.06.2018. Lives in [facility], alone but has supportive family. PT/OT/RT recommend SNF. Appointments requested with [employer] and Cards. Preop testing 07/29/2018 08/03/2018 Overview: [facility] Surgeon: Jamie Jo M.D. Informed Consent Completed: yes STS Score: N/A CAD: No Is intended procedure a CABG: No - is a beta jhon ordered? Previously prescribed H & P completed: Yes PA/LAT: Completed CT: Completed MRI: N/A LE US: N/A Cath: Yes (outside images on syngo)- reviewed: No Echo:Completed EKG: Completed EF %: 65 PI's: N/A Carotid: N/A Mapping: N/A Dental: Completed (edentulous) PFT's: Completed Recent Labs 07/29/18 0746 WBC 8.47 HB 12.8 HCT 41.4 PLT 294 INR 1.1 CREAT 1.33* UA: results pending HCG:N/A ABO/ABO Confirmed: Yes Blood ordered: No SA Swab: Yes - results: Pending Last Dose of Anticoagulation: Last dose of Coumadin on 07/24 Op Note: N/A Pacemaker Check: N/A Implants: no Consults: 07/15 - Pulmonary -Aaliyah Stone PA-C RE: COPD Continue current maintenance Rx at this time. Will re-assess after cardiac surgery. Based on oximetry today, you do not require supplemental oxygen with rest or exertion. Will obtain nocturnal oxygen from [employer]. Continue rescue inhaler as needed for relief of shortness of breath or wheezing, up to 4 times daily. Re-assess in 3 months, sooner if needed. 06/14/18: Hematology - Maria Isabel Tay MD RE: Small cell Lymphoma (in remission) - Continued observation and repeat CT chest abdomen pelvis in 3 months - proceed with valvular heart surgery and follow with cardiology. - Continue Coumadin. - repeat CBC, CMP, LDH, immunofixation & OV in 3 months. DM: No Cardiac Surgical prep: DR. JO AWARE OF ELEVATED CREATININE SIGNATURE: Bell Johnson APRN.PRODUCT SAFETY ENGINEER CHECKED BY: LEE ANN DATE of SERVICE: 07/29/2018 TIME of SERVICE: 8:22 AM Encounter for preoperative a nesthesiology assessment for cardiac surgery 07/29/2018 Bone metastasis 10/13/2017 08/29/2021 Overview: Added automatically from request for surgery [id number] Hypoxemia 05/20/2017 08/03/2018 Overview: Requiring HF O2 after extubation A/p Begin diuresis and oob to chair, wean O2 as able. 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 Lopez follows for benign tumor removed 2002 Closed fracture of lateral malleolus 11/25/2005 09/05/2008 IBS (irritable bowel syndrome) 08/03/2018 Overview: with diarrhea and urgency Chronic heart failure with p reserved ejection fraction (HFpEF) 08/29/2021 Persistent atrial fibrillation 08/29/2021 documented as of this encounter (statuses as of 09/06/2023) [facility] History of Past illness Narrative* Problem Noted Date Diagnosed Date Resolved Date Hypervolemia 08/01/2018 08/03/2018 Overview: A/p Edema noted on exam and CXR. Begin diuresis and monitor closely RADHA (acute kidney injury) 08/01/2018 Overview: History: Post-operative. Assessment: BUN/Cr normalizing Plan: Avoid hypotension. Renally dose medications Cardiac insufficiency 07/30/20182017 Overview: A/p Cardiac insuffiencey requiring epi, titrate for UO & monitor CVP On mechanically assisted ventilation 07/30/2018 07/31/2018 Overview: Grade 1 Airway A/p WTE Postoperative pain 07/30/2018 8 Overview: A/p Controlled with WELD TECHNICIAN fentanyl, scheduled lidoderm patches and tyenol, prn oxycodone Stress hyperglycemia 07/30/2018 018 Overview: Continue SS. Hypovolemia/fluctuating lacic acidosis 07/30/2018 08/02/2018 Overview: A/p albumin given x1 Discharge planning issues 07/29/2018 Overview: Discharge to SNF 08.06.2018. Lives in [facility], alone but has supportive family. PT/OT/RT recommend SNF. Appointments requested with [employer] and Cards. Preop testing 07/29/2018 08/03/2018 Overview: [facility] PRE-OP CHECK[facility] Surgeon: Jamie Jo M.D. Informed Consent Completed: yes STS Score: N/A CAD: No Is intended procedure a CABG: No - is a beta jhon ordered? Previously prescribed H & P completed: Yes PA/LAT: Completed CT: Completed MRI: N/A LE US: N/A Cath: Yes (outside images on syngo)- reviewed: No Echo:Completed EKG: Completed EF %: 65 PI's: N/A Carotid: N/A Mapping: N/A Dental: Completed (edentulous) PFT's: Completed Recent Labs 07/29/18 0746 WBC 8.47 HB 12.8 HCT 41.4 PLT 294 INR 1.1 CREAT 1.33* UA: results pending HCG:N/A ABO/ABO Confirmed: Yes Blood ordered: No SA Swab: Yes - results: Pending Last Dose of Anticoagulation: Last dose of Coumadin on 07/24 Op Note: N/A Pacemaker Check: N/A Implants: no Consults: 07/15 - Pulmonary -Aaliyah Stone PA-C RE: COPD Continue current maintenance Rx at this time. Will re-assess after cardiac surgery. Based on oximetry today, you do not require supplemental oxygen with rest or exertion. Will obtain nocturnal oxygen from [employer]. Continue rescue inhaler as needed for relief of shortness of breath or wheezing, up to 4 times daily. Re-assess in 3 months, sooner if needed. 06/14/18: Hematology - Maria Isabel Tay MD RE: Small cell Lymphoma (in remission) - Continued observation and repeat CT chest abdomen pelvis in 3 months - proceed with valvular heart surgery and follow with cardiology. - Continue Coumadin. - repeat CBC, CMP, LDH, immunofixation & OV in 3 months. DM: No Cardiac Surgical prep: DR. JO AWARE OF ELEVATED CREATININE SIGNATURE: Bell Johnson APRN.PRODUCT SAFETY ENGINEER CHECKED BY: LEE ANN DATE of SERVICE: 07/29/2018 TIME of SERVICE: 8:22 AM Encounter for preoperative a nesthesiology assessment for cardiac surgery 07/29/2018 Bone metastasis 10/13/2017 08/29/2021 Overview: Added automatically from request for surgery [id number] Hypoxemia 05/20/2017 08/03/2018 Overview: Requiring HF O2 after extubation A/p Begin diuresis and oob to chair, wean O2 as able. 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 Lopez follows for benign tumor removed 2002 Closed fracture of lateral malleolus 11/25/2005 09/05/2008 IBS (irritable bowel syndrome) 08/03/2018 Overview: with diarrhea and urgency Chronic heart failure with p reserved ejection fraction (HFpEF) 08/29/2021 Persistent atrial fibrillation 08/29/2021 documented as of this encounter (statuses as of 09/22/2023) [facility]09[facility]-2018 History of Past illness Narrative* Problem Noted Date Diagnosed Date Resolved Date Hypervolemia 08/01/2018 08/03/2018 Overview: A/p Edema noted on exam and CXR. Begin diuresis and monitor closely RADHA (acute kidney injury) 08/01/2018 Overview: History: Post-operative. Assessment: BUN/Cr normalizing Plan: Avoid hypotension. Renally dose medications Cardiac insufficiency 07/30/20182017 Overview: A/p Cardiac insuffiencey requiring epi, titrate for UO & monitor CVP On mechanically assisted ventilation 07/30/2018 07/31/2018 Overview: Grade 1 Airway A/p WTE Postoperative pain 07/30/2018 8 Overview: A/p Controlled with WELD TECHNICIAN fentanyl, scheduled lidoderm patches and tyenol, prn oxycodone Stress hyperglycemia 07/30/2018 018 Overview: Continue SS. Hypovolemia/fluctuating lacic acidosis 07/30/2018 08/02/2018 Overview: A/p albumin given x1 Discharge planning issues 07/29/2018 Overview: Discharge to SNF 08.06.2018. Lives in [facility], alone but has supportive family. PT/OT/RT recommend SNF. Appointments requested with [employer] and Cards. Preop testing 07/29/2018 08/03/2018 Overview: [facility] PRE-OP CHECKLIST Surgeon: Jamie Jo M.D. Informed Consent Completed: yes STS Score: N/A CAD: No Is intended procedure a CABG: No - is a beta jhon ordered? Previously prescribed H & P completed: Yes PA/LAT: Completed CT: Completed MRI: N/A LE US: N/A Cath: Yes (outside images on syngo)- reviewed: No Echo:Completed EKG: Completed EF %: 65 PI's: N/A Carotid: N/A Mapping: N/A Dental: Completed (edentulous) PFT's: Completed Recent Labs 07/29/18 0746 WBC 8.47 HB 12.8 HCT 41.4 PLT 294 INR 1.1 CREAT 1.33* UA: results pending HCG:N/A ABO/ABO Confirmed: Yes Blood ordered: No SA Swab: Yes - results: Pending Last Dose of Anticoagulation: Last dose of Coumadin on 07/24 Op Note: N/A Pacemaker Check: N/A Implants: no Consults: 07/15 - Pulmonary -Aaliyah Stone PA-C RE: COPD Continue current maintenance Rx at this time. Will re-assess after cardiac surgery. Based on oximetry today, you do not require supplemental oxygen with rest or exertion. Will obtain nocturnal oxygen from [employer]. Continue rescue inhaler as needed for relief of shortness of breath or wheezing, up to 4 times daily. Re-assess in 3 months, sooner if needed. 06/14/18: Hematology - Maria Isabel Tay MD RE: Small cell Lymphoma (in remission) - Continued observation and repeat CT chest abdomen pelvis in 3 months - proceed with valvular heart surgery and follow with cardiology. - Continue Coumadin. - repeat CBC, CMP, LDH, immunofixation & OV in 3 months. DM: No Cardiac Surgical prep: DR. JO AWARE OF ELEVATED CREATININE SIGNATURE: Bell Johnson APRN.PRODUCT SAFETY ENGINEER CHECKED BY: LEE ANN DATE of SERVICE: 07/29/2018 TIME of SERVICE: 8:22 AM Encounter for preoperative a nesthesiology assessment for cardiac surgery 07/29/2018 Bone metastasis 10/13/2017 08/29/2021 Overview: Added automatically from request for surgery [id number] Hypoxemia 05/20/2017 08/03/2018 Overview: Requiring HF O2 after extubation A/p Begin diuresis and oob to chair, wean O2 as able. 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 Lopez follows for benign tumor removed 2002 Closed fracture of lateral malleolus 11/25/2005 09/05/2008 IBS (irritable bowel syndrome) 08/03/2018 Overview: with diarrhea and urgency Chronic heart failure with p reserved ejection fraction (HFpEF) 08/29/2021 Persistent atrial fibrillation 08/29/2021 documented as of this encounter (statuses as of 09/30/2023) [facility] Diagnosis Left lower quadrant abdominal pain- Primary History of diverticulitis [facility] Diagnosis Frequent urination- Primary Urinary frequency [facility] Diagnosis Acute diverticulitis Diverticulitis of colon (without mention of hemorrhage) [facility] Diagnosis Essential hypertension- Primary Unspecified essential hypertension Gastroesophageal reflux disease, unspecified whether esophagitis present S/P placement of cardiac pacemaker Cardiac pacemaker in situ Chronic heart failure with preserved ejection fraction (HFpEF) (HCC) Vitamin D deficiency Unspecified vitamin D deficiency Chronic obstructive pulmonary disease, unspecified COPD type (HCC) Anticoagulant long-term use Long-term (current) use of 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 Chronic right-sided low back pain with right-sided sciatica [facility] Diagnosis 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) Splenic lesion Disease of spleen, unspecified [facility] Diagnosis UTI symptoms- Primary Other symptoms involving urinary system S/P placement of cardiac pacemaker Cardiac pacemaker in situ [facility] Diagnosis Microscopic hematuria- Primary [facility]* Diagnosis Chronic obstructive pulmonary disease, unspecified COPD type (HCC) [facility] Diagnosis Chronic obstructive pulmonary disease, unspecified COPD type (HCC)- Primary Former smoker Personal history of tobacco use, presenting hazards to health [facility] Diagnosis Chronic heart failure with preserved ejection fraction (HFpEF) (HCC)- Primary Chronic right-sided low back pain with right-sided sciatica Acute bilateral low back pain with left-sided sciatica S/P placement of cardiac pacemaker Cardiac pacemaker in situ [facility] Diagnosis Chronic right-sided low back pain with right-sided sciatica [facility]* Diagnosis Abdominal pain, LLQ (left lower quadrant)- Primary Abdominal pain, left lower quadrant History of colonic diverticulitis Personal history of other diseases of digestive system [facility]* Diagnosis Chronic right-sided low back pain with right-sided sciatica [facility]* Diagnosis Right leg swelling- Primary Swelling of limb Asymptomatic postmenopausal status documented [facility]* Diagnosis Atrial fibrillation, unspecified type (HCC)- Primary Chronic obstructive pulmonary disease, unspecified COPD type (HCC) Rib pain on left side Chest pain, unspecified Rib injury Sprain of ribs [facility]* Diagnosis Infection in abdomen (HCC)- Primary Unspecified peritonitis Left lower quadrant abdominal pain Acute diarrhea Diarrhea [facility]* Diagnosis Chest congestion- Primary Other symptoms involving respiratory system and chest documented [facility]* Diagnosis Chronic obstructive pulmonary disease, unspecified COPD type (HCC) [facility]* Diagnosis Moderate COPD (chronic obstructive pulmonary disease) (HCC)- Primary Chronic airway obstruction, not elsewhere classified Former smoker Personal history of tobacco use, presenting hazards to health [facility]* Diagnosis Chronic obstructive pulmonary disease, unspecified COPD type (HCC) [facility]* Diagnosis Rib pain on left side- Primary Chest pain, unspecified Fall, subsequent encounter Muscle strain Unspecified site of sprain and strain Age related osteoporosis, unspecified pathological fracture presence [facility]* Diagnosis LLQ pain- Primary Abdominal pain, left lower quadrant Gas pain Flatulence, eructation, and gas pain Infection in abdomen (HCC) Unspecified peritonitis Rib pain on left side Chest pain, unspecified Fall, subsequent encounter Muscle strain Unspecified site of sprain and strain [facility]* Diagnosis Chronic obstructive pulmonary disease, unspecified COPD type (HCC) [facility]* Diagnosis Permanent atrial fibrillation with rapid ventricular response (HCC)- Primary Permanent atrial fibrillation (HCC) Atrial fibrillation Atypical atrial flutter (HCC) Atrial flutter Palpitation Palpitations At risk for stroke Other specified personal history presenting hazards to health Anticoagulant long-term use Long-term (current) use of 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 Left bundle branch block Other left bundle branch block Bradycardia Other specified cardiac dysrhythmias Sick sinus syndrome (HCC) Sinoatrial node dysfunction Tachycardia-bradycardia syndrome (HCC) Sinoatrial node dysfunction Presence of permanent cardiac pacemaker Cardiac pacemaker in situ HOCM (hypertrophic obstructive cardiomyopathy) (HCC) Hypertrophic obstructive cardiomyopathy S/P ventricular septal myectomy Other postprocedural status Status post mitral valve repair Other postprocedural status Chronic diastolic heart failure (HCC) Chronic diastolic heart failure Longstanding persistent atrial fibrillation (HCC) [facility]* Diagnosis Frequency of urination- Primary Urinary frequency Vaginal itching Pruritus of genital organs Palpitation Palpitations Presence of permanent cardiac pacemaker Cardiac pacemaker in situ Anticoagulant long-term use Long-term (current) use of 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 Permanent atrial fibrillation with rapid ventricular response (HCC) Permanent atrial fibrillation (HCC) Atrial fibrillation Tachycardia-bradycardia syndrome (HCC) Sinoatrial node dysfunction [facility] Diagnosis Longstanding persistent atrial fibrillation (HCC) [facility] Diagnosis Permanent atrial fibrillation (HCC)- Primary Atrial fibrillation 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) Cardiac complications S/P placement of cardiac pacemaker Cardiac pacemaker in situ Essential hypertension Unspecified essential hypertension At risk for stroke Other specified personal history presenting hazards to health [facility] Diagnosis S/P ablation of atrial fibrillation- Primary Other postprocedural status [facility]* Diagnosis Essential hypertension- Primary Unspecified essential hypertension Hypotension, unspecified hypotension type Urinary frequency Gastroesophageal reflux disease, unspecified whether esophagitis present Encounter for long-term current use of medication Anticoagulant long-term use Long-term (current) use of 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 [facility] Diagnosis Closed fracture of neck of right femur with routine healing, subsequent encounter- Primary [facility] Diagnosis Closed fracture of neck of right femur with routine healing- Primary Aftercare for healing traumatic fracture of hip [facility] Diagnosis Essential hypertension- Primary Unspecified essential hypertension Closed fracture of right femur, unspecified fracture morphology, unspecified portion of femur, sequela Chronic right-sided low back pain with right-sided sciatica Pain of right hip Anticoagulant long-term use Long-term (current) use of 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 Claudication of both lower extremities (HCC) Moderate COPD (chronic obstructive pulmonary disease) (HCC) Chronic airway obstruction, not elsewhere classified documented in this encounter [facility] note* Diagnosis Acute cystitis with hematuria- Primary Urinary frequency documented in this encounter [facility]* Diagnosis Essential hypertension- Primary Unspecified essential hypertension Age related osteoporosis, unspecified pathological fracture presence Arteriosclerosis of coronary artery Coronary atherosclerosis of unspecified type of vessel, [place] or graft 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 Impacted cerumen of left ear Impacted cerumen Excessive cerumen in ear canal, right Chronic right-sided low back pain with right-sided sciatica Permanent atrial fibrillation with rapid ventricular response (HCC) Spinal stenosis of lumbar region with radiculopathy Spinal stenosis, lumbar region, without neurogenic claudication documented in this encounter [facility] note* Diagnosis Essential hypertension- Primary Unspecified essential hypertension Chronic obstructive pulmonary disease, unspecified COPD type (HCC) Viral URI Acute upper respiratory infections of unspecified site Right leg swelling Swelling of limb Dizziness Dizziness and giddiness documented in this encounter [facility] note* Diagnosis Age related osteoporosis, unspecified pathological fracture presence- Primary documented in this encounter [facility] note* Diagnosis Closed fracture of right femur, unspecified fracture morphology, unspecified portion of femur, sequela- Primary documented in this encounter [facility] note* Diagnosis Loose stools- Primary Abnormal feces documented in this encounter [facility] note* Diagnosis Chest pain, unspecified type- Primary documented in this encounter [facility] for referral (narrative)* Diagnostic Procedure Only (Routine) - Closed Specialty Diagnoses / Procedures Referred By Contac t Referred To Contact US IMAGING Diagnoses 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) Splenic lesion Procedures US ABD RT UPPER QUADRANT ULTRASOUND-ABDOMINAL PC Maria Isabel Tay MD [address] [place] [address] Us Imaging Referral ID Status Reason Start Date Expiration Date V isits Requested Visits Authorized [id number] Closed Auto-Generate d Referral 03/23/2022 10/23/2022 1 1 [facility] for referral (narrative)* Outpatient Procedure (Routine) - Pending Review Specialty Diagnoses / Procedures Referred By Contac t Referred To Contact [facility] Diagnoses Chronic obstructive pulmonary disease, unspecified COPD type (HCC) Procedures OXIMETRY WITH AMBULATION NONINVASIVE EAR/PULSE OXIMETRY MULTIPLE Aaliyah Mccarthy PA-C [address] [address] [facility] [place] [address] [place] [address] Referral ID Status Reason Start Date Expiration Date Visits Requested Visits Authorized [id number] Pending Review Auto-Generat ed Referral 05/01/2022 05/31/2023 1 1 [facility] for referral (narrative)* Outpatient Procedure (Urgent) - Closed Specialty Diagnoses / Procedures Referred By Contac t Referred To Contact [facility] Diagnoses Right leg swelling Procedures US LEG VEIN DVT UNL VAS LAB DUP-SCAN XTR VEINS UNILATERAL/LIMITED STUDY Alisia Pacheco MD [address] [place] [address] [facility] [place] [id number] Referral ID Status Reason Start Date Expiration Date V isits Requested Visits Authorized [id number] Closed Auto-Generate d Referral 08/15/2022 11/01/2022 1 1 * Diagnostic Procedure Only (Urgent) - Pending Review Specialty Diagnoses / Procedures Referred By Contac t Referred To Contact US IMAGING Diagnoses Right leg swelling Procedures US DVT LOWER RT DUP-SCAN XTR VEINS UNILATERAL/LIMITED STUDY Alisia Pacheco MD [address] [place] [id number] Us Imaging Referral ID Status Reason Start Date Expiration Date Visits Requested Visits Authorized [id number] Pending Review Auto-Generat ed Referral 2 09/13/2023 1 1 [facility] for referral (narrative)* Diagnostic Procedure Only (Routine) - Closed Specialty Diagnoses / Procedures Referred By Contac t Referred To Contact XR IMAGING Diagnoses Rib pain on left side Rib injury Procedures XR RIBS/CHEST 3V AP RIB/OBLS/CXR LEFT RADEX RIBS UNI W/POSTEROANT CH MINIMUM 3 VIEWS Mana Valentin APRN.CNP [address] [place] [address] Xr Imaging Referral ID Status Reason Start Date Expiration Date V isits Requested Visits Authorized [id number] Closed Auto-Generate d Referral 08/22/2022 11/01/2022 1 1 [facility] for referral (narrative)* Outpatient Procedure (Routine) - Pending Review Specialty Diagnoses / Procedures Referred By Contac t Referred To Contact [facility] Diagnoses Moderate COPD (chronic obstructive pulmonary disease) (HCC) Procedures SPIROMETRY BASELINE ONLY SPMTRY W/VC EXPIRATORY WENDY W/WO MXML VOL VNTJ Aaliyah Stone PA-C [address] [place] [address] [facility] [place] [address] [place] [address] Referral ID Status Reason Start Date Expiration Date Visits Requested Visits Authorized [id number] Pending Review Auto-Generat ed Referral 2 10/22/2023 1 1 [facility] for visit Narrative* Diagnostic Procedure Only (Routine) - Closed Specialty Diagnoses / Procedures Referred By Contac t Referred To Contact US IMAGING Diagnoses 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) Splenic lesion Procedures US ABD RT UPPER QUADRANT ULTRASOUND-ABDOMINAL PC Maria Isabel Tay MD [address] [place] [address] Us Imaging Referral ID Status Reason Start Date Expiration Date V isits Requested Visits Authorized [id number] Closed Auto-Generate d Referral 03/23/2022 10/23/2022 1 1 [facility] Summary Purpose Family History No Family History Records FoundNo Family History Records FoundNo Family History Records FoundNo Family History Records FoundNo Family History Records FoundNo Family History Records FoundNo Family History Records FoundNo Family History Records Found Advance Directives No Advanced Directives Records FoundDocuments on File Type Date Recorded 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 Advance Directive(s) 07/29/2018 12:21 PM Advance Directive(s) 04/23/2018 7:39 AM Advance Directive(s) 12/02/2017 11:34 AM Advance Directive(s) 11/18/2017 12:29 PM Documents on File Type Date Recorded 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 Advance Directive(s) 07/29/2018 12:21 PM Advance Directive(s) 04/23/2018 7:39 AM Advance Directive(s) 12/02/2017 11:34 AM Advance Directive(s) 11/18/2017 12:29 PM Reason for Referral Specialty Diagnoses / Procedures Referred By Contac t Referred To Contact Urology Diagnoses Microscopic hematuria Procedures CONSULT TO UROLOGY OFFICE/OUTPATIENT NEW HIGH MDM 60-74 MINUTES Jerad Bales, CHIEF ORDER DISPATCHER.COMMERCIAL LOAN ANALYST [address] [place] [address] Referral ID Status Reason Start Date Expiration Date Visits Requested Visits Authorized [id number] Pending Review PCP Requested Referral 04/10/2022 04/10/2023 1 1 Specialty Diagnoses / Procedures Referred By Contac t Referred To Contact CT IMAGING Diagnoses Infection in abdomen (HCC) Left lower quadrant abdominal pain Procedures CT ABD/PEL W IVCON CT ABD & PELVIS W/CONTRAST Alisia Pacheco MD [address] [place] [address] Ct Imaging Referral ID Status Reason Start Date Expiration Date V isits Requested Visits Authorized [id number] Closed Auto-Generate d Referral 07/14/2022 08/13/2023 1 1 Medications Administered Section Active Administered Medications - up to 3 most recent administrations Medication Order MAR Action Action Date Dose Rate Site denosumab 60 mg injection (PROLIA) 60 mg, SUBCUTANEOUS, EVERY 6 MONTHS, 2 doses, First dose on 08/24/23 at 0000, Last dose on 02/20/24 at 0000, Allow To Come To Room Temperature Before Administration. REFRIGERATE Given 08/24/2023 3:58 PM EDT 60 mg Arm, Left Additional Source Comments INFORMATION SOURCE (unrecogn ized section and content) DATE CREATED AUTHOR AUTHOR'S ORGANIZ ATION [facility] DATE CREATED AUTHOR AUTHOR'S ORGANIZ ATION 05/12/2018 [facility] DATE CREATED AUTHOR AUTHOR'S ORGANIZ ATION 02/08/2023 [facility] DATE CREATED AUTHOR AUTHOR'S ORGANIZ ATION 02/20/2023 [facility] DATE CREATED AUTHOR AUTHOR'S ORGANIZ ATION 05/07/2023 [facility] DATE CREATED AUTHOR AUTHOR'S ORGANIZ ATION 10/30/2023 [facility] DATE CREATED AUTHOR AUTHOR'S ORGANIZ ATION 12/05/2023 [facility] Source Comments (unrecognize d section and content) In the event this informatio n is protected by the Federal Confidentiality of Alcohol and Drug Abuse Patient Records regulations: The Federal rules restrict any use of the information to criminally investigate or prosecute any alcohol or drug abuse patient.[facility] the event this information is protected by the Federal Confidentiality of Alcohol and Drug Abuse Patient Records regulations: The Federal rules restrict any use of the information to criminally investigate or prosecute any alcohol or drug abuse patient.[facility]In the event this information is protected by the Federal Confidentiality of Alcohol and Drug Abuse Patient Records regulations: The Federal rules restrict any use of the information to criminally investigate or prosecute any alcohol or drug abuse patient.[facility] HospitalIn the event this information is protected by the Federal Confidentiality of Alcohol and Drug Abuse Patient Records regulations: The Federal rules restrict any use of the information to criminally investigate or prosecute any alcohol or drug abuse patient.[facility] HospitalIn the event this information is protected by the Federal Confidentiality of Alcohol and Drug Abuse Patient Records regulations: The Federal rules restrict any use of the information to criminally investigate or prosecute any alcohol or drug abuse patient.[facility] HospitalIn the event this information is protected by the Federal Confidentiality of Alcohol and Drug Abuse Patient Records regulations: The Federal rules restrict any use of the information to criminally investigate or prosecute any alcohol or drug abuse patient.[facility] HospitalIn the event this information is protected by the Federal Confidentiality of Alcohol and Drug Abuse Patient Records regulations: The Federal rules restrict any use of the information to criminally investigate or prosecute any alcohol or drug abuse patient.[facility] HospitalIn the event this information is protected by the Federal Confidentiality of Alcohol and Drug Abuse Patient Records regulations: The Federal rules restrict any use of the information to criminally investigate or prosecute any alcohol or drug abuse patient.[facility] HospitalIn the event this information is protected by the Federal Confidentiality of Alcohol and Drug Abuse Patient Records regulations: The Federal rules restrict any use of the information to criminally investigate or prosecute any alcohol or drug abuse patient.[facility] HospitalIn the event this information is protected by the Federal Confidentiality of Alcohol and Drug Abuse Patient Records regulations: The Federal rules restrict any use of the information to criminally investigate or prosecute any alcohol or drug abuse patient.[facility] HospitalIn the event this information is protected by the Federal Confidentiality of Alcohol and Drug Abuse Patient Records regulations: The Federal rules restrict any use of the information to criminally investigate or prosecute any alcohol or drug abuse patient.[facility] HospitalIn the event this information is protected by the Federal Confidentiality of Alcohol and Drug Abuse Patient Records regulations: The Federal rules restrict any use of the information to criminally investigate or prosecute any alcohol or drug abuse patient.[facility] HospitalIn the event this information is protected by the Federal Confidentiality of Alcohol and Drug Abuse Patient Records regulations: The Federal rules restrict any use of the information to criminally investigate or prosecute any alcohol or drug abuse patient.[facility] HospitalIn the event this information is protected by the Federal Confidentiality of Alcohol and Drug Abuse Patient Records regulations: The Federal rules restrict any use of the information to criminally investigate or prosecute any alcohol or drug abuse patient.[facility] HospitalIn the event this information is protected by the Federal Confidentiality of Alcohol and Drug Abuse Patient Records regulations: The Federal rules restrict any use of the information to criminally investigate or prosecute any alcohol or drug abuse patient.[facility] HospitalIn the event this information is protected by the Federal Confidentiality of Alcohol and Drug Abuse Patient Records regulations: The Federal rules restrict any use of the information to criminally investigate or prosecute any alcohol or drug abuse patient.[facility] HospitalIn the event this information is protected by the Federal Confidentiality of Alcohol and Drug Abuse Patient Records regulations: The Federal rules restrict any use of the information to criminally investigate or prosecute any alcohol or drug abuse patient.[facility] HospitalIn the event this information is protected by the Federal Confidentiality of Alcohol and Drug Abuse Patient Records regulations: The Federal rules restrict any use of the information to criminally investigate or prosecute any alcohol or drug abuse patient.[facility] HospitalIn the event this information is protected by the Federal Confidentiality of Alcohol and Drug Abuse Patient Records regulations: The Federal rules restrict any use of the information to criminally investigate or prosecute any alcohol or drug abuse patient.[facility] HospitalIn the event this information is protected by the Federal Confidentiality of Alcohol and Drug Abuse Patient Records regulations: The Federal rules restrict any use of the information to criminally investigate or prosecute any alcohol or drug abuse patient.[facility] HospitalIn the event this information is protected by the Federal Confidentiality of Alcohol and Drug Abuse Patient Records regulations: The Federal rules restrict any use of the information to criminally investigate or prosecute any alcohol or drug abuse patient.[facility] HospitalIn the event this information is protected by the Federal Confidentiality of Alcohol and Drug Abuse Patient Records regulations: The Federal rules restrict any use of the information to criminally investigate or prosecute any alcohol or drug abuse patient.[facility] HospitalIn the event this information is protected by the Federal Confidentiality of Alcohol and Drug Abuse Patient Records regulations: The Federal rules restrict any use of the information to criminally investigate or prosecute any alcohol or drug abuse patient.[facility] HospitalIn the event this information is protected by the Federal Confidentiality of Alcohol and Drug Abuse Patient Records regulations: The Federal rules restrict any use of the information to criminally investigate or prosecute any alcohol or drug abuse patient.[facility] HospitalIn the event this information is protected by the Federal Confidentiality of Alcohol and Drug Abuse Patient Records regulations: The Federal rules restrict any use of the information to criminally investigate or prosecute any alcohol or drug abuse patient.[facility] HospitalIn the event this information is protected by the Federal Confidentiality of Alcohol and Drug Abuse Patient Records regulations: The Federal rules restrict any use of the information to criminally investigate or prosecute any alcohol or drug abuse patient.[facility] HospitalIn the event this information is protected by the Federal Confidentiality of Alcohol and Drug Abuse Patient Records regulations: The Federal rules restrict any use of the information to criminally investigate or prosecute any alcohol or drug abuse patient.[facility] HospitalIn the event this information is protected by the Federal Confidentiality of Alcohol and Drug Abuse Patient Records regulations: The Federal rules restrict any use of the information to criminally investigate or prosecute any alcohol or drug abuse patient.[facility] HospitalIn the event this information is protected by the Federal Confidentiality of Alcohol and Drug Abuse Patient Records regulations: The Federal rules restrict any use of the information to criminally investigate or prosecute any alcohol or drug abuse patient.[facility] HospitalIn the event this information is protected by the Federal Confidentiality of Alcohol and Drug Abuse Patient Records regulations: The Federal rules restrict any use of the information to criminally investigate or prosecute any alcohol or drug abuse patient.[facility] HospitalIn the event this information is protected by the Federal Confidentiality of Alcohol and Drug Abuse Patient Records regulations: The Federal rules restrict any use of the information to criminally investigate or prosecute any alcohol or drug abuse patient.[facility] HospitalIn the event this information is protected by the Federal Confidentiality of Alcohol and Drug Abuse Patient Records regulations: The Federal rules restrict any use of the information to criminally investigate or prosecute any alcohol or drug abuse patient.[facility] HospitalIn the event this information is protected by the Federal Confidentiality of Alcohol and Drug Abuse Patient Records regulations: The Federal rules restrict any use of the information to criminally investigate or prosecute any alcohol or drug abuse patient.[facility] HospitalIn the event this information is protected by the Federal Confidentiality of Alcohol and Drug Abuse Patient Records regulations: The Federal rules restrict any use of the information to criminally investigate or prosecute any alcohol or drug abuse patient.[facility] HospitalIn the event this information is protected by the Federal Confidentiality of Alcohol and Drug Abuse Patient Records regulations: The Federal rules restrict any use of the information to criminally investigate or prosecute any alcohol or drug abuse patient.[facility] HospitalIn the event this information is protected by the Federal Confidentiality of Alcohol and Drug Abuse Patient Records regulations: The Federal rules restrict any use of the information to criminally investigate or prosecute any alcohol or drug abuse patient.[facility] HospitalIn the event this information is protected by the Federal Confidentiality of Alcohol and Drug Abuse Patient Records regulations: The Federal rules restrict any use of the information to criminally investigate or prosecute any alcohol or drug abuse patient.[facility] HospitalIn the event this information is protected by the Federal Confidentiality of Alcohol and Drug Abuse Patient Records regulations: The Federal rules restrict any use of the information to criminally investigate or prosecute any alcohol or drug abuse patient.[facility] HospitalIn the event this information is protected by the Federal Confidentiality of Alcohol and Drug Abuse Patient Records regulations: The Federal rules restrict any use of the information to criminally investigate or prosecute any alcohol or drug abuse patient.[facility] HospitalIn the event this information is protected by the Federal Confidentiality of Alcohol and Drug Abuse Patient Records regulations: The Federal rules restrict any use of the information to criminally investigate or prosecute any alcohol or drug abuse patient.[facility] HospitalIn the event this information is protected by the Federal Confidentiality of Alcohol and Drug Abuse Patient Records regulations: The Federal rules restrict any use of the information to criminally investigate or prosecute any alcohol or drug abuse patient.[facility] HospitalIn the event this information is protected by the Federal Confidentiality of Alcohol and Drug Abuse Patient Records regulations: The Federal rules restrict any use of the information to criminally investigate or prosecute any alcohol or drug abuse patient.[facility] HospitalIn the event this information is protected by the Federal Confidentiality of Alcohol and Drug Abuse Patient Records regulations: The Federal rules restrict any use of the information to criminally investigate or prosecute any alcohol or drug abuse patient.[facility] HospitalIn the event this information is protected by the Federal Confidentiality of Alcohol and Drug Abuse Patient Records regulations: The Federal rules restrict any use of the information to criminally investigate or prosecute any alcohol or drug abuse patient.[facility] HospitalIn the event this information is protected by the Federal Confidentiality of Alcohol and Drug Abuse Patient Records regulations: The Federal rules restrict any use of the information to criminally investigate or prosecute any alcohol or drug abuse patient.[facility] HospitalIn the event this information is protected by the Federal Confidentiality of Alcohol and Drug Abuse Patient Records regulations: The Federal rules restrict any use of the information to criminally investigate or prosecute any alcohol or drug abuse patient.[facility] HospitalIn the event this information is protected by the Federal Confidentiality of Alcohol and Drug Abuse Patient Records regulations: The Federal rules restrict any use of the information to criminally investigate or prosecute any alcohol or drug abuse patient.[facility] HospitalIn the event this information is protected by the Federal Confidentiality of Alcohol and Drug Abuse Patient Records regulations: The Federal rules restrict any use of the information to criminally investigate or prosecute any alcohol or drug abuse patient.[facility] HospitalIn the event this information is protected by the Federal Confidentiality of Alcohol and Drug Abuse Patient Records regulations: The Federal rules restrict any use of the information to criminally investigate or prosecute any alcohol or drug abuse patient.[facility] HospitalIn the event this information is protected by the Federal Confidentiality of Alcohol and Drug Abuse Patient Records regulations: The Federal rules restrict any use of the information to criminally investigate or prosecute any alcohol or drug abuse patient.[facility] HospitalIn the event this information is protected by the Federal Confidentiality of Alcohol and Drug Abuse Patient Records regulations: The Federal rules restrict any use of the information to criminally investigate or prosecute any alcohol or drug abuse patient.[facility] HospitalIn the event this information is protected by the Federal Confidentiality of Alcohol and Drug Abuse Patient Records regulations: The Federal rules restrict any use of the information to criminally investigate or prosecute any alcohol or drug abuse patient.[facility] HospitalIn the event this information is protected by the Federal Confidentiality of Alcohol and Drug Abuse Patient Records regulations: The Federal rules restrict any use of the information to criminally investigate or prosecute any alcohol or drug abuse patient.[facility] HospitalIn the event this information is protected by the Federal Confidentiality of Alcohol and Drug Abuse Patient Records regulations: The Federal rules restrict any use of the information to criminally investigate or prosecute any alcohol or drug abuse patient.[facility] HospitalIn the event this information is protected by the Federal Confidentiality of Alcohol and Drug Abuse Patient Records regulations: The Federal rules restrict any use of the information to criminally investigate or prosecute any alcohol or drug abuse patient.[facility] HospitalIn the event this information is protected by the Federal Confidentiality of Alcohol and Drug Abuse Patient Records regulations: The Federal rules restrict any use of the information to criminally investigate or prosecute any alcohol or drug abuse patient.[facility] HospitalIn the event this information is protected by the Federal Confidentiality of Alcohol and Drug Abuse Patient Records regulations: The Federal rules restrict any use of the information to criminally investigate or prosecute any alcohol or drug abuse patient.[facility] HospitalIn the event this information is protected by the Federal Confidentiality of Alcohol and Drug Abuse Patient Records regulations: The Federal rules restrict any use of the information to criminally investigate or prosecute any alcohol or drug abuse patient.[facility] HospitalIn the event this information is protected by the Federal Confidentiality of Alcohol and Drug Abuse Patient Records regulations: The Federal rules restrict any use of the information to criminally investigate or prosecute any alcohol or drug abuse patient.[facility] HospitalIn the event this information is protected by the Federal Confidentiality of Alcohol and Drug Abuse Patient Records regulations: The Federal rules restrict any use of the information to criminally investigate or prosecute any alcohol or drug abuse patient.[facility] HospitalIn the event this information is protected by the Federal Confidentiality of Alcohol and Drug Abuse Patient Records regulations: The Federal rules restrict any use of the information to criminally investigate or prosecute any alcohol or drug abuse patient.[facility] Reason for Visit (unrecogniz ed section and content) Reason Comments UTI frequent urination x 2 days Reason Comments Medication Problem Reason Comments Missed providers call Reason Comments Follow Up Reason Comments uti symptoms Reason Comments Results, Lab Urinalysis Reason Comments Spirometry Specialty Diagnoses / Procedures Referred By Contac t Referred To Contact [facility] Diagnoses Chronic obstructive pulmonary disease, unspecified COPD type (HCC) Procedures SPIROMETRY BASELINE ONLY SPIROMETRY WO BRONCHODILATOR Aaliyah Stone, GIOVANNA [address] [facility] [address] [place] [address] [facility] [place] [address] [place] [address] Referral ID Status Reason Start Date Expiration Date V isits Requested Visits Authorized [id number] Closed Auto-Generate d Referral 07/26/2021 08/25/2022 1 1 Reason Comments Established Patient COPD Reason Comments Question Reason Comments Hospital F/U Reason Comments Refill Request Reason Comments Pain Pt reported (LT) ellis ed pain, gas, diarrhea, denied SOB, chest pain with visit. Reason Comments Patient Update Reason Comments Results Specialty Diagnoses / Procedures Referred By Contac t Referred To Contact CT IMAGING Diagnoses Infection in abdomen (HCC) Left lower quadrant abdominal pain Procedures CT ABD/PEL W IVCON CT ABD & PELVIS W/CONTRAST Alisia Pacheco MD [address] [place] [address] Ct Imaging Referral ID Status Reason Start Date Expiration Date V isits Requested Visits Authorized [id number] Closed Auto-Generate d Referral 07/14/2022 08/13/2023 1 1 Reason Onset Date Comments Refill Request 08/08/2022 Reason Comments Patient Question Reason Comments Recheck [facility] ER follow up Reason Comments ER F/U Reason Comments Chest Congestion SOB, rib pain x this AM Reason Onset Date Comments Patient Question 09/19/2022 Specialty Diagnoses / Procedures Referred By Contac t Referred To Contact [facility] Diagnoses Chronic obstructive pulmonary disease, unspecified COPD type (HCC) Procedures OXIMETRY WITH AMBULATION NONINVASIVE EAR/PULSE OXIMETRY MULTIPLE Aaliyah Mccarthy PA-C [address] [facility] [place] [place] [address] [facility]piratory [place] [address] [place] [address] Referral ID Status Reason Start Date Expiration Date V isits Requested Visits Authorized [id number] Closed Auto-Generate d Referral 09/15/2022 11/01/2022 1 1 Reason Comments Recheck Reason Onset Date Comments Refill Request 10/03/2022 Reason Comments Abdominal Pain Reason Onset Date Comments Refill Request 10/20/2022 Reason Comments CARD New Patient Consult Afib Reason Comments Preparations For Procedures Reason Comments UTI Frequency in urinati ng, with itching Reason Comments Home Health Orders Reason Comments Edema Reason Comments Anticoagulation Reason Comments Home Health Update Reason Comments Hospital Follow Up 6 week follow up per manent a-fib with RVR Reason Comments Permanent Pacemaker Reason Onset Date Comments Home Health Care Certification 04/10/2023 [facility] 01/31/2023-03/31/2023 Reason Onset Date Comments Home Health Certification 04/14/2023 [facility] 02/17/2023-04/17/2023 Reason Comments ED Follow-up Reason Comments Urinary Tract Infection Possible UTI uri nary urgency,small pain,urinary frequency x 4 days Reason Comments 4 month f/u Reason Comments Hospital F/U [facility] Hospital dischar ge 06/27/23 for High Blood Pressure Reason Comments Orders Reason Comments Imm/Inj Specialty Diagnoses / Procedures Referred By Contac t Referred To Contact CT IMAGING Diagnoses Splenic lesion 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 Does have a [employer] pacer in place, it is NOT a defib. Denies SOB or dizziness. Care Teams (unrecognized sec tion and content) Wardrobe Image Consultant Relationship Specialty Start Date End Date Alisia Pacheco MD [address] [place], [place] [address] PCP - General Internal Medicine 07/19/12 Arnold Bland [address] [address] Consulting Cardiology 03/15/19 Panda Miller MD [address] [place] [address] Specialty Real Estate Branch Manager Pulmonary and Critical Care Medicine 08/03/20 Wardrobe Image Consultant Relationship Specialty Start Date End Date Alisia Pacheco MD [address] [place] [address] PCP - General Internal Medicine 07/19/12 Arnold Bland [address] [place] [phone] Consulting Cardiology 03/15/19 Panda Miller MD [address] [place] [address] Specialty Real Estate Branch Manager Pulmonary and Critical Care Medicine 08/03/20 Wardrobe Image Consultant Relationship Specialty Start Date End Date Alisia Pacheco MD [address] [place], [place] [address] PCP - General Internal Medicine 07/19/12 Arnold Bland [address] [place] [address] Consulting Cardiology 03/15/19 Panda Miller MD [address] [place] [address] Specialty Real Estate Branch Manager Pulmonary and Critical Care Medicine 08/03/20 Wardrobe Image Consultant Relationship Specialty Start Date End Date Alisia Pacheco MD [address] [facility] [address] PCP - General Internal Medicine 07/19/12 Arnodl Bland [address] [place] [address] Consulting Cardiology 03/15/19 Panda Miller MD [address] [place] [address] Specialty Real Estate Branch Manager Pulmonary and Critical Care Medicine 08/03/20 Wardrobe Image Consultant Relationship Specialty Start Date End Date Alisia Pacheco MD [address] [facility] [address] PCP - General Internal Medicine 07/19/12 Arnold Bland [address] [place] [address] Consulting Cardiology 03/15/19 Panda Miller MD [address] [place] [address] Specialty Real Estate Branch Manager Pulmonary and Critical Care Medicine 08/03/20 Wardrobe Image Consultant Relationship Specialty Start Date End Date Alisia Pacheco MD [address] [facility] [address] PCP - General Internal Medicine 07/19/12 Arnold Bland [address] [place] [address] Consulting Cardiology 03/15/19 Panda Miller MD [address] [address] Specialty Real Estate Branch Manager Pulmonary and Critical Care Medicine 08/03/20 Wardrobe Image Consultant Relationship Specialty Start Date End Date Alisia Pacheco MD [address] [facility] [address] PCP - General Internal Medicine 07/19/12 Arnold Bland [address] [place] [address] Consulting Cardiology 03/15/19 Panda Miller MD [address] [address] Specialty Real Estate Branch Manager Pulmonary and Critical Care Medicine 08/03/20 Wardrobe Image Consultant Relationship Specialty Start Date End Date Alisia Pacheco MD [address] [facility] [address] PCP - General Internal Medicine 07/19/12 Arnold Bland [address] [place] [address] Consulting Cardiology 03/15/19 Panda Miller MD [address] [address] Specialty Real Estate Branch Manager Pulmonary and Critical Care Medicine 08/03/20 Wardrobe Image Consultant Relationship Specialty Start Date End Date Alisia Pacheco MD [address] [facility] [address] PCP - General Internal Medicine 07/19/12 Arnold Bland [address] [place] [address] Consulting Cardiology 03/15/19 Panda Miller MD [address] [place] [address] Specialty Real Estate Branch Manager Pulmonary and Critical Care Medicine 08/03/20 Wardrobe Image Consultant Relationship Specialty Start Date End Date Alisia Pacheco MD [address] [facility] [address] PCP - General Internal Medicine 07/19/12 [address] Bland [address] [place] [address] Consulting Cardiology 03/15/19 Panda Miller MD [address] [place] [address] Specialty Real Estate Branch Manager Pulmonary and Critical Care Medicine 08/03/20 Wardrobe Image Consultant Relationship Specialty Start Date End Date Alisia Pacheco MD [address] [facility] [address] PCP - General Internal Medicine 07/19/12 Arnold Bland [address] [place] [address] Consulting Cardiology 03/15/19 Panda Miller MD [address] [place] [address] Specialty Real Estate Branch Manager Pulmonary and Critical Care Medicine 08/03/20 Wardrobe Image Consultant Relationship Specialty Start Date End Date Alisia Pacheco MD [address] [facility] [address] PCP - General Internal Medicine 07/19/12 Arnold Bland [address] [place] [address] Consulting Cardiology 03/15/19 Panda Miller MD [address] [facility] [place] [address] Specialty Real Estate Branch Manager Pulmonary and Critical Care Medicine 08/03/20 Wardrobe Image Consultant Relationship Specialty Start Date End Date Alisia Pacheco MD [address] [facility] [address] PCP - General Internal Medicine 07/19/12 Arnold Bland [address] [place] [address] Consulting Cardiology 03/15/19 Panda Miller MD [address] [place] [address] Specialty Real Estate Branch Manager Pulmonary and Critical Care Medicine 08/03/20 Wardrobe Image Consultant Relationship Specialty Start Date End Date Alisia Pacheco MD [address] [facility] [address] PCP - General Internal Medicine 07/19/12 Arnold Bland [address] [place] [address] Consulting Cardiology 03/15/19 Panda Miller MD [address] [place] [address] Specialty Real Estate Branch Manager Pulmonary and Critical Care Medicine 08/03/20 Wardrobe Image Consultant Relationship Specialty Start Date End Date Alisia Pacheco MD [address] [facility] [address] PCP - General Internal Medicine 07/19/12 Arnold Bland [address] [facility] [address] [place] [address] Consulting Cardiology 03/15/19 Panda Miller MD [address] [place] [address] Specialty Real Estate Branch Manager Pulmonary and Critical Care Medicine 08/03/20 Wardrobe Image Consultant Relationship Specialty Start Date End Date Alisia Pacheco MD [address] [facility] [address] PCP - General Internal Medicine 07/19/12 Arnold Bland [address] [place] [address] Consulting Cardiology 03/15/19 Panda Miller MD [address] [place] [address] Specialty Real Estate Branch Manager Pulmonary and Critical Care Medicine 08/03/20 Wardrobe Image Consultant Relationship Specialty Start Date End Date Alisia Pacheco MD [address] [facility] [address] PCP - General Internal Medicine 07/19/12 Arnold Bland [address] [place] [address] Consulting Cardiology 03/15/19 Panda Miller MD [address] [place] [address] Specialty Real Estate Branch Manager Pulmonary and Critical Care Medicine 08/03/20 Wardrobe Image Consultant Relationship Specialty Start Date End Date Alisia Pacheco MD [address] [facility] [address] PCP - General Internal Medicine 07/19/12 Arnold Bland [address] [place] [address] Consulting Cardiology 03/15/19 Panda Miller MD [address] [place] [address] Specialty Real Estate Branch Manager Pulmonary and Critical Care Medicine 08/03/20 Wardrobe Image Consultant Relationship Specialty Start Date End Date Alisia Pacheco MD [address] [facility] [address] PCP - General Internal Medicine 07/19/[address] [place] [address] Consulting Cardiology 03/15/19 Panda Miller MD [address] [facility] [place] [address] Specialty Real Estate Branch Manager Pulmonary and Critical Care Medicine 08/03/20 Wardrobe Image Consultant Relationship Specialty Start Date End Date Alisia Pacheco MD [address] [facility] [address] PCP - General Internal Medicine 07/19/12 Arnold Bland [address] [place] [address] Consulting Cardiology 03/15/19 Panda Miller MD [address] [facility] [place] [address] Specialty Real Estate Branch Manager Pulmonary and Critical Care Medicine 08/03/20 Wardrobe Image Consultant Relationship Specialty Start Date End Date Alisia Pacheco MD [address] [facility] [address] PCP - General Internal Medicine 07/19/12 Arnold Bland [address] [place] [address] Consulting Cardiology 03/15/19 Panda Miller MD [address] [facility] [place] [address] Specialty Real Estate Branch Manager Pulmonary and Critical Care Medicine 08/03/20 Wardrobe Image Consultant Relationship Specialty Start Date End Date Alisia Pacheco MD [address] [facility] [address] PCP - General Internal Medicine 07/19/12 Arnold Bland [address] [place] [address] Consulting Cardiology 03/15/19 Panda Miller MD [address] [facility] [place] [address] Specialty Real Estate Branch Manager Pulmonary and Critical Care Medicine 08/03/20 Wardrobe Image Consultant Relationship Specialty Start Date End Date Alisia Pacheco MD [address] [facility] [address] PCP - General Internal Medicine 07/19/12 Arnold Bland [address] [place] [address] Consulting Cardiology 03/15/19 Panda Miller MD [address] [place] [address] Specialty Real Estate Branch Manager Pulmonary and Critical Care Medicine 08/03/20 Maria Isabel Tay MD [address] [facility] [place] [address] Hematology/Oncology 10/08/22 Wardrobe Image Consultant Relationship Specialty Start Date End Date Alisia Pacheco MD [address] [facility] [address] PCP - General Internal Medicine 07/19/12 Arnold Bland [address] [place] [address] Consulting Cardiology 03/15/19 Panda Miller MD [address] [place] [address] Specialty Real Estate Branch Manager Pulmonary and Critical Care Medicine 08/03/20 Maria Isabel Tay MD [address] [facility] [place] [address] Hematology/Oncology 10/08/22 Wardrobe Image Consultant Relationship Specialty Start Date End Date Alisia Pacheco MD [address] [facility] [address] PCP - General Internal Medicine 07/19/12 Arnold Bland [address] [place] [address] Consulting Cardiology 03/15/19 Panda Miller MD [address] [place] [address] Specialty Real Estate Branch Manager Pulmonary and Critical Care Medicine 08/03/20 Maria Isabel Tay MD [address] [place] [address] Hematology/Oncology 10/08/22 Wardrobe Image Consultant Relationship Specialty Start Date End Date Alisia Pacheco MD [address] [facility] [address] PCP - General Internal Medicine 07/19/12 Arnold Bland [address] [place] [address] Consulting Cardiology 03/15/19 Panda Miller MD [address] [place] [address] Specialty Real Estate Branch Manager Pulmonary and Critical Care Medicine 08/03/20 Maria Isabel Tay MD [address] [place] [address] Hematology/Oncology 10/08/22 Wardrobe Image Consultant Relationship Specialty Start Date End Date Alisia Pacheco MD [address] [facility] [address] PCP - General Internal Medicine 07/19/12 Arnold Bland [address] [place] [address] Consulting Cardiology 03/15/19 Panda Miller MD [address] [address] Specialty Real Estate Branch Manager Pulmonary and Critical Care Medicine 08/03/20 Maria Isabel Tay MD [address] [place] [address] Hematology/Oncology 10/08/22 Wardrobe Image Consultant Relationship Specialty Start Date End Date Alisia Pacheco MD [address] [facility] [address] PCP - General Internal Medicine 07/19/12 Arnold Bland [address] [place] [address] Consulting Cardiology 03/15/19 Panda Miller MD [address] [place] [address] Specialty Real Estate Branch Manager Pulmonary and Critical Care Medicine 08/03/20 Maria Isabel Tay MD [address] [facility] [place] [address] Hematology/Oncology 10/08/22 Wardrobe Image Consultant Relationship Specialty Start Date End Date Alisia Pacheco MD [address] [facility] [address] PCP - General Internal Medicine 07/19/12 Arnold Bland [address] [place] [address] Consulting Cardiology 03/15/19 Panda Miller MD [address] [place] [address] Specialty Real Estate Branch Manager Pulmonary and Critical Care Medicine 08/03/20 Maria Isabel Tay MD [address] [facility] [place] [address] Hematology/Oncology 10/08/22 Wardrobe Image Consultant Relationship Specialty Start Date End Date Alisia Pacheco MD [address] [facility] [address] PCP - General Internal Medicine 07/19/12 Arnold Bland [address] [place] [address] Consulting Cardiology 03/15/19 Panda Miller MD [address] [place] [address] Specialty Real Estate Branch Manager Pulmonary and Critical Care Medicine 08/03/20 Maria Isabel Tay MD [address] [place] [address] Hematology/Oncology 10/08/22 Wardrobe Image Consultant Relationship Specialty Start Date End Date Alisia Pacheco MD [address] [facility] [address] PCP - General Internal Medicine 07/19/12 Arnold Bland [address] [place] [address] Consulting Cardiology 03/15/19 Panda Miller MD [address] [place] [address] Specialty Real Estate Branch Manager Pulmonary and Critical Care Medicine 08/03/20 Maria Isabel Tay MD [address] [place] [address] Hematology/Oncology 10/08/22 Wardrobe Image Consultant Relationship Specialty Start Date End Date Alisia Pacheco MD [address] [facility] [address] PCP - General Internal Medicine 07/19/12 Arnold Bland [address] [place] [address] Consulting Cardiology 03/15/19 Panda Miller MD [address] [address] Specialty Real Estate Branch Manager Pulmonary and Critical Care Medicine 08/03/20 Maria Isabel Tay MD [address] [place] [address] Hematology/Oncology 10/08/22 Wardrobe Image Consultant Relationship Specialty Start Date End Date Alisia Pacheco MD [address] [facility] [address] PCP - General Internal Medicine 07/19/12 Arnold Bland [address] [place] [address] Consulting Cardiology 03/15/19 Panda Miller MD [address] [place] [address] Specialty Real Estate Branch Manager Pulmonary and Critical Care Medicine 08/03/20 Maria Isabel Tay MD [address] [facility] [place] [address] Hematology/Oncology 10/08/22 Wardrobe Image Consultant Relationship Specialty Start Date End Date Alisia Pacheco MD [address] [facility] [address] PCP - General Internal Medicine 07/19/12 Arnold Bland [address] [place] [address] Consulting Cardiology 03/15/19 Panda Miller MD [address] [place] [address] Specialty Real Estate Branch Manager Pulmonary and Critical Care Medicine 08/03/20 Maria Isabel Tay MD [address] [facility] [place] [address] Hematology/Oncology 10/08/22 Wardrobe Image Consultant Relationship Specialty Start Date End Date Alisia Pacheco MD [address] [facility] [address] PCP - General Internal Medicine 07/19/12 Arnold Bland [address] [place] [address] Consulting Cardiology 03/15/19 Panda Miller MD [address] [place] [address] Specialty Real Estate Branch Manager Pulmonary and Critical Care Medicine 08/03/20 Maria Isabel Tay MD [address] [place] [address] Hematology/Oncology 10/08/22 Wardrobe Image Consultant Relationship Specialty Start Date End Date Alisia Pacheco MD [address] [facility] [address] PCP - General Internal Medicine 07/19/12 Arnold Bland [address] [place] [address] Consulting Cardiology 03/15/19 Panda Miller MD [address] [place] [address] Specialty Real Estate Branch Manager Pulmonary and Critical Care Medicine 08/03/20 Maria Isabel Tay MD [address] [place] [address] Hematology/Oncology 10/08/22 Wardrobe Image Consultant Relationship Specialty Start Date End Date Alisia Pacheco MD [address] [facility] [address] PCP - General Internal Medicine 07/19/12 Arnold Bland [address] [place] [address] Consulting Cardiology 03/15/19 Panda Miller MD [address] [address] Specialty Real Estate Branch Manager Pulmonary and Critical Care Medicine 08/03/20 Maria Isabel Tay MD [address] [place] [address] Hematology/Oncology 10/08/22 Wardrobe Image Consultant Relationship Specialty Start Date End Date Alisia Pacheco MD [address] [facility] [address] PCP - General Internal Medicine 07/19/12 Arnold Bland [address] [facility] [address] [place] [address] Consulting Cardiology 03/15/19 Panda Miller MD [address] [facility] [place] [address] Specialty Real Estate Branch Manager Pulmonary and Critical Care Medicine 08/03/20 Maria Isabel Tay MD [address] [facility] [place] [address] Hematology/Oncology 10/08/22 Wardrobe Image Consultant Relationship Specialty Start Date End Date Alisia Pacheco MD [address] [facility] [address] PCP - General Internal Medicine 07/19/12 Arnold Bland [address] [facility] [address] [place] [address] Consulting Cardiology 03/15/19 Panda Miller MD [address] [facility] [place] [address] Specialty Real Estate Branch Manager Pulmonary and Critical Care Medicine 08/03/20 Maria Isabel Tay MD [address] [place] [address] Hematology/Oncology 10/08/22 Wardrobe Image Consultant Relationship Specialty Start Date End Date Alisia Pacheco MD [address] [facility] [place] [place] [address] PCP - General Internal Medicine 05/06/23 Wardrobe Image Consultant Relationship Specialty Start Date End Date Alisia Pacheco MD [address] [facility] [place] [address] PCP - General Internal Medicine 07/19/12 Arnold Bland [address] [place] [address] Consulting Cardiology 03/15/19 Panda Miller MD [address] [place] [address] Specialty Real Estate Branch Manager Pulmonary and Critical Care Medicine 08/03/20 Maria Isabel Tay MD [address] [place] [address] Hematology/Oncology 10/08/22 Wardrobe Image Consultant Relationship Specialty Start Date End Date Alisia Pacheco MD [address] [place] [address] PCP - General Internal Medicine 07/19/12 Arnold Bland [address] [place] [address] Consulting Cardiology 03/15/19 Panda Miller MD [address] [place] [address] Specialty Real Estate Branch Manager Pulmonary and Critical Care Medicine 08/03/20 Maria Isabel Tay MD [address] [place] [address] Hematology/Oncology 10/08/22 Wardrobe Image Consultant Relationship Specialty Start Date End Date Alisia Pacheco MD [address] [place] [address] PCP - General Internal Medicine 07/19/12 Arnold Bland [address] [place] [address] Consulting Cardiology 03/15/19 Panda Miller MD [address] [place] [address] Specialty Real Estate Branch Manager Pulmonary and Critical Care Medicine 08/03/20 Maria Isabel Tay MD [address] [place] [address] Hematology/Oncology 10/08/22 Wardrobe Image Consultant Relationship Specialty Start Date End Date Alisia Pacheco MD [address] [facility] [address] PCP - General Internal Medicine 07/19/12 Arnold Bland [address] [place] [address] Consulting Cardiology 03/15/19 Panda Miller MD [address] [place] [address] Specialty Real Estate Branch Manager Pulmonary and Critical Care Medicine 08/03/20 Maria Isabel Tay MD [address] [place] [address] Hematology/Oncology 10/08/22 Wardrobe Image Consultant Relationship Specialty Start Date End Date Alisia Pacheco MD [address] [facility] [place] [address] PCP - General Internal Medicine 07/19/12 Arnold Bland [address] [place] [address] Consulting Cardiology 03/15/19 Panda Miller MD [address] [place] [address] Specialty Real Estate Branch Manager Pulmonary and Critical Care Medicine 08/03/20 Maria Isabel Tay MD [address] [place] [address] Hematology/Oncology 10/08/22 Wardrobe Image Consultant Relationship Specialty Start Date End Date Alisia Pacheco MD [address] [place] [address] PCP - General Internal Medicine 07/19/12 Arnold Bland [address] [place] [address] Consulting Cardiology 03/15/19 Panda Miller MD [address] [place] [address] Specialty Real Estate Branch Manager Pulmonary and Critical Care Medicine 08/03/20 Maria Isabel Tay MD [address] [place] [address] Hematology/Oncology 10/08/22 Wardrobe Image Consultant Relationship Specialty Start Date End Date Alisia Pacheco MD [address] [place] [address] PCP - General Internal Medicine 07/19/12 Arnold Bland [address] [place] [address] Consulting Cardiology 03/15/19 Panda Miller MD [address] [place] [address] Specialty Real Estate Branch Manager Pulmonary and Critical Care Medicine 08/03/20 Maria Isabel Tay MD [address] [place] [address] Hematology/Oncology 10/08/22 Wardrobe Image Consultant Relationship Specialty Start Date End Date Alisia Pacheco MD [address] [place] [address] PCP - General Internal Medicine 07/19/12 Arnold Bland MD [address] [place] [address] Consulting Cardiology 03/15/19 Panda Miller MD [address] [place] [address] Specialty Real Estate Branch Manager Pulmonary and Critical Care Medicine 08/03/20 Maria Isabel Tay MD [address] [place] [address] Hematology/Oncology 10/08/22 Wardrobe Image Consultant Relationship Specialty Start Date End Date Alisia Pacheco MD [address] [place] [address] PCP - General Internal Medicine 07/19/12 Arnold Bland MD [address] [place] [address] Consulting Cardiology 03/15/19 Panda Miller MD [address] [place] [address] Specialty Real Estate Branch Manager Pulmonary and Critical Care Medicine 08/03/20 Maria Isabel Tay MD [address] [address] Hematology/Oncology 10/08/22 Wardrobe Image Consultant Relationship Specialty Start Date End Date Alisia Pacheco MD [address] [facility] [address] PCP - General Internal Medicine 07/19/12 Arnold Bland MD [address], [place] [address] Consulting Cardiology 03/15/19 Panda Miller MD [address] [address] Specialty Real Estate Branch Manager Pulmonary and Critical Care Medicine 08/03/20 Maria Isabel Tay MD [address] [place] [address] Hematology/Oncology 10/08/22 Wardrobe Image Consultant Relationship Specialty Start Date End Date Alisia Pacheco MD [address] [facility] [place] [address] PCP - General Internal Medicine 10/28/23 FOR RECORDS PERTAINING TO PATIENTS WHO ARE OR HAVE BEEN ENROLLED IN A CHEMICAL DEPENDENCY/SUBSTANCEABUSE PROGRAM, SOME INFORMATION MAY BE OMITTED. This clinical summary was aggregated from multiple sources. Caution should be exercised in using it in the provision of clinical care. This summary normalizes information from multiple sources, and as a consequence, information in this document may materially change the coding, format and clinical context of patient data. In addition, data may be omitted in some cases. CLINICAL DECISIONS SHOULD BE BASED ON THE PRIMARY CLINICAL RECORDS. [employer] [facility]. provides no warranty or guarantee of the accuracy or completeness of information in this document.
[2023-12-16 11:09] LABS: International Normalized Ratio 1.1; Prothrombin Time (Protime)PT. 13.7 SECONDS (11.7-14.9)
== END | disposition home or self-care (01) ==
LOC: LAB 09:59
PROVIDERS: PCP Internal Medicine; Referring Provider Internal Medicine Cardiovascular Disease; Visit Provider Internal Medicine Cardiovascular Disease
DX: I48.91 Unspecified atrial fibrillation (principal); Z79.01 Long term (current) use of 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
CPT/HCPCS: 36415; 85610

== ENCOUNTER → 2023-12-23 | Outpatient (CLI) | payer MEDICARE, SELFPAY ==
[2023-12-23 10:30] LABS: International Normalized Ratio 1.7; Prothrombin Time (Protime)PT. 20.4 SECONDS (11.7-14.9)
== END | disposition home or self-care (01) ==
LOC: LAB 09:45
PROVIDERS: PCP Internal Medicine; Visit Provider Internal Medicine Cardiovascular Disease
DX: I48.91 Unspecified atrial fibrillation (principal); Z79.01 Long term (current) use of 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
CPT/HCPCS: 36415; 85610

== ENCOUNTER 2023-12-25 22:53 | Emergency (ER) | payer MEDICARE, SELFPAY ==
[2023-12-25 22:55] VITALS: BP 168/92; PULSE 90; RESP 17; TEMP 36.9; O2SAT 93; BMI 21.5
--- NOTE | 2023-12-25 23:37 | EKG12_ITS ---
Test Reason : DYSRHYTHMIA Blood Pressure : / mmHG Vent. Rate : 060 BPM Atrial Rate : 065 BPM P-R Int : 000 ms QRS Dur : 162 ms QT Int : 554 ms P-R-T Axes : 000 -68 114 degrees QTc Int : 554 ms Ventricular-paced rhythm Abnormal ECG Confirmed by CLAUDIA FORTUNE, KACIE ([id number]), general expeditor NAYELI NEGRON ([id number]) on 12/28/2023 9:46:14 AM Referred By: Confirmed By:KACIE TAYLOR MD
--- OUTSIDE RECORDS SUMMARY | 2023-12-25 23:38 | XMS RPT_ITS | CCD ---
Author Name Unknown Address [address] [place] [address] [facility] Care Team Providers Care Financial Solutions Advisor Name Role Phone Belle RN, Mayte Jacobson Unavailable Unavailable Belle OLSEN, Mayte Jacobson Unavailable Unavailable KENDALL, TREMAYNE Unavailable Unavailable KENDALL, TREMAYNE Unavailable Unavailable TALAMPAS, ALIISA Unavailable Unavailable KENDALL, TREMAYNE Unavailable Unavailable KENDALL, [...] Unavailable Maria Isabel Tay MD Unavailable Taldong FROTUNE, Alisia Rinku Primary Care Provider MAY, RONEN KHAN Attending Unavailable TALAMPAS, ALISIA D Primary Care Unavailable Panda Miller MD Unavailable Arnold Bland MD Unavailable Alisia Pacheco MD Primary Care Provider TALAMPAS ALISIA, ALISIA~[id number] TALAMPAS Primary Care Unavailable PETER LEE Attending [...] allopurinol; Translations: [ALLOPURINOL] Drug Allergy 7 Rash [facility] Repository (20 sources) traMADol; Translations: [TRAMADOL] Drug Allergy 6 Other: See Comments [facility] Repository (3 sources) OTHER; Translations: [OTHER] Propensity to adverse reactions (disorder) 6 [facility] (20 sources) environmental [Other] Propensity to adverse reactions 6 Intolerance [facility] Work Phone: Medications Current Medications Medication [...] Coronary arteriosclerosis; Translations: [Atherosclerotic heart disease of [place] coronary artery without angina pectoris] Onset: 0 [...] sources) Long-term current use of anticoagulant; Translations: [MCFP (current) use of 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] Onset: 9 08-03-2020 Episodic Other aftercare (1 source) Patient encounter status; Translations: [Other residential (current) drug therapy] Episodic Other circulatory disease [...] Onset: 3 Episodic Other aftercare (2 sources) MCFP (current) use of 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; Translations: [Anticoagulant long-term use] Onset: 3 Episodic Other aftercare (1 source) Other long term care pharmacist (current) drug therapy; Translations: [Encounter for long-term [...] 102 mm[Hg] Alisia Pacheco MD Work Phone: [facility] Encounters Encounter Date Encounter Type Care Provider Facility Start: 12-02-2023 End: 12-02-2023 ambulatory ALISIA PACHECO Facility:[facility] Start: 10-28-2023 End: 10-29-2023 Emergency department patient visit ALISIA~[id number] JUNIOR CRUMP [facility] Start: 10-28-2023 End: 10-28-2023 Emergency department patient visit Alisia Pacheco MD Work Phone: [facility] Emergency Room Procedures Date Procedure Procedure Detail [...] et rgnt auto w/o microscopy Ronen Valentin OFFSET PRESS ASSISTANT Work Phone: Start: 02-16-2023 Ecg routine ecg w/le ast 12 lds w/i&r Tex Johnson 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OFFSET PRESS ASSISTANT Work Phone: Start: 12-20-2022 Urnls dip stick/tabl et rgnt auto w/o microscopy Lou Pascual 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OFFSET PRESS ASSISTANT Work Phone: Start: 11-21-2022 Ecg routine ecg w/le ast 12 lds w/i&r Bebeto Chaudhary MD Work Phone: Start: 09-22-2022 Noninvasive ear/puls e oximetry multiple deter Aaliyah Stone PA-C Work Phone: Start: 05-01-2022 Spmtry w/vc expirato ry wendy w/wo mxml vol vntj Aaliyah Stone PA-C Work Phone: Start: 04-08-2022 Urnls dip stick/tabl et rgnt auto w/o microscopy Jerad Bales 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COOPERAGE SHOP SUPERVISOR Work Phone: Start: 04-02-2022 Us abdominal real ti me w/image limited Maria Isabel Tay MD Work Phone: Start: 03-22-2022 Urnls dip stick/tabl et rgnt auto w/o microscopy Pina Singleton 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OFFSET PRESS ASSISTANT Work Phone: Plan of Treatment Date Care Activity Detail Author Start: 02-07-2026 Diabetes Screening Diabetes Screenin tyler [facility] Start: 11-10-2025 DIABETES SCREEN DIABETES SCREEN [facility] Start: 11-10-2025 Diabetes Screening Diabetes Screenin g [facility] Start: 07-10-2025 DIABETES SCREEN DIABETES SCREEN [facility] Start: 04-02-2025 DIABETES SCREEN DIABETES SCREEN [facility] Start: 10-28-2024 Falls Risk Assessment Falls Risk Ass essment [facility] Start: 10-28-2024 Hypertension/CHF/CAD Annual BMP Blood Test Hypertension/CHF/CAD Annual BMP Blood Test [facility] Start: 10-20-2024 Covid-19 Vaccine () Covid-19 Vaccine () [facility] Immunizations Immunization Date Immunization Notes Care Provider Sandra leslie 09-12-2021 COVID-19 original vaccine, full dose, monovalent (MODERNA) Respiratory Wstr Work Phone: [facility] Work Phone: 09-02-2021 influenza, high-dose , quadrivalent vaccine (FLUZONE HIGH DOSE QUADRIVALENT) Daniel Mcclelland MD Work Phone: [facility] 09-02-2021 influenza virus vaccine, unspecified formulation Jerad Bales COOPERAGE SHOP SUPERVISOR Work Phone: [facility] 12-21-2020 COVID-19 vaccine, fu ll dose (MODERNA) Daniel Mcclelland MD Work Phone: [facility] Work Phone: 11-23-2020 COVID-19 vaccine, fu ll dose (MODERNA) Daniel Mcclelland MD Work Phone: [facility] Work Phone: 07-16-2020 influenza, high-dose , quadrivalent vaccine (FLUZONE HIGH DOSE QUADRIVALENT) Daniel Mcclelland MD Work Phone: [facility] 07-11-2019 influenza, high dose seasonal, preservative-free Daniel Mcclelland MD Work Phone: [facility] 08-03-2018 influenza, high dose seasonal, preservative-free Daniel Mcclelland MD Work Phone: [facility] 08-18-2017 influenza, high dose seasonal, preservative-free Daniel Mcclelland MD Work Phone: [facility] 09-01-2015 pneumococcal conjuga te vaccine, 13 valent Daniel Mcclelland MD Work Phone: [facility] 07-17-2015 influenza, seasonal, injectable Daniel Mcclelland MD Work Phone: [facility] 08-23-2013 influenza, high dose seasonal, preservative-free Daniel Mcclelland MD Work Phone: [facility] 08-23-2013 influenza, seasonal, injectable Bebeto Chaudhary MD Work Phone: [facility] Work Phone: 08-23-2013 influenza, seasonal, injectable, preservative free Daniel Mcclelland MD Work Phone: [facility] 07-19-2012 tetanus and diphther ia toxoids, adsorbed, preservative free, for adult use (2 Lf of tetanus toxoid and 2 Lf of diphtheria toxoid) Daniel Mcclelland MD Work Phone: [facility] 07-17-2012 influenza virus vaccine, unspecified formulation Daniel Mcclelland MD Work Phone: [facility] Work Phone: 06-13-2010 pneumococcal polysaccharide vaccine, 23 valent Daniel Mcclelland MD Work Phone: [facility] Work Phone: 11-02-1994 tetanus and diphther ia toxoids, adsorbed, preservative free, for adult use (2 Lf of tetanus toxoid and 2 Lf of diphtheria toxoid) Daniel Mcclelland MD Work Phone: [facility] Work Phone: Payers Date Payer Category Payer Medicare AETNA MEDICARE A ETNA MEDICARE PPO [id number] 2021-Present [phone] [address] [place] [address] PPO [id number] 2021 Medicare [id number] 2014 Medicare 1940 Unknown [id number] 1940 Unknown [id number] Unknown [id number] Social History Date Type Detail Facility Start: 04-28-2019 End: 10-28-2023 Tobacco smoking status NHIS Ex-smoker [facility] Start: 1956 End: 07-02-2005 History of tobacco use Current smoker [facility] Work Phone: Start: 1956 End: 07-02-2005 History of tobacco use Cigarette Smoker [facility] Work Phone: Start: 02-09-2022 End: 10-28-2023 Alcohol intake Current drinker of alcohol (finding) [facility] Start: 06-10-2018 History SDOH Alcohol Comment occasional [facility] Start: 07-02-2017 End: 07-10-2022 Tobacco Comment No smoking in childhood home. Spouse quit smoking years before patient did. [facility] Start: 1940 Sex Assigned At Not on file [facility] Start: 01-30-2022 End: 09-22-2022 Exposure to SARS-CoV-2 (event) Not sure [facility] Start: 04-28-2019 End: 04-07-2023 Cigarettes smoked current (pack per day) - Reported 1 [facility] Work Phone: Start: 04-28-2019 End: 10-28-2023 Tobacco use and exposure Smokeless tobacco non-user [facility] Start: 05-06-2023 Tobacco smoking stat us TXIS Never smoked tobacco [facility] Start: 04-07-2023 End: 07-01-2023 Gender identity Not on file [facility] Work Phone: Adult Depression Screening Assessment 0 [facility] Work Phone: Start: 10-05-2023 Alcohol intake Ex-drinker (finding) [facility] Medical Equipment Procedure Code Equipment Code Equipment Original Text Equipment Identifier Dates [place] Thk1.65mm P tfe 4x.5in Cardiovascular Sterile - [id number] Start: 07-30-2018 Clinical Notes 08-01-2018 to 12-02-2023 Discharge SAM Manrique - 10/28/2023 5:50 PM SAM García - 10/28/2023 5:45 PM ESTTelephone Jenny - Linda Elmore RN - 10/21/2023 11:44 AM ESTAttachments Note Date & Type Note Facility 12-02-2023 Note HNO ID: [id number] Author: ZHOU CAMACHO PA-C Service: ? Author Type: Physician Machinist Automotive Type: Progress Notes Filed: 12/02/2023 12:38 Note Text: This note was created using Moogiriter. 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 09/2001 Nonrheumatic mitral valve regurgitation Osteoporosis Pacemaker-dependent due to [place] cardiac rhythm insufficient to support life Permanent atrial fibrillation (HCC) 11/21/2022 Permanent atrial fibrillation with rapid ventricular response (HCC) 11/21/2022 Persistent atrial fibrillation (HCC) Presence of permanent cardiac pacemaker 01/15/2022 [place] [employer] single chamber pacemaker; indication: symptomatic tachycardia-bradycardia syndrome [...] mg SUBCUTANEOUS Q 6 MONTH Jerad Bales, 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COOPERAGE SHOP SUPERVISOR 60 mg at 08/24/23 1558 PAST SURGICAL HISTORY Procedure Laterality Date ABLATE AV NODE FUNCTION 01/02/2023 RF catheter ablation of AV node; indication: drug refractory atrial fibrillation; [facility] Dr. 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 [facility] 10-28-2023 Hospital Discharge instructions SAM Anders - 10/28/2023 9:58 PM EST Follow-up with your solid waste division supervisor when you get home, return to the emergency department if you are having any worsening symptoms. documented in this encounter [facility] 10-28-2023 History of Present illness Narrative [facility] Patient Name: Michelle Sharpe Initial Evaluation: 10/28/2023 [...] now over the holidays she is from [facility]. We will obtain CBC, BMP, troponin, [...] pain in her chest. Does have a [employer] pacer in place, it is NOT a [...] and gets all her care up at [place] and the [facility] where she lives. 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 Patient asking if provider can send in this prescription to [facility]. Please review and advise, Linda Elmore RN documented in this encounter [facility] 10-20-2023 Note HNO ID: [id number] Author: ALISIA PACHECO MD Service: ? Author Type: Physician Type: Progress Notes Filed: 11/06/2023 00:09 Note Text: This note was created using PSI Systemster. 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 [facility] 10-05-2023 Note HNO ID: [id number] Author: Peter Lee MD Service: ? Author Type: Physician Type: Progress Notes Filed: 10/06/2023 11:48 PM Note Text: This note was created using NoteWriter. Subjective Michelle Sharpe is a 83 year old female. She had been dealing with recurrent loose diarrhea, non bloody for 2 months, reminiscent of previous irritable bowel. She had been seen by [facility] one month ago, and had been [facility] [...] Failure (Hcc) Hyperlipidemia Left Bundle Branch Block Managing Editor Current Use of Anticoagulant Therapy Malignant Neoplasm [...] Atrioventricular Miguel Ablation (Hcc) Pacemaker-Dependent Due to [place] Cardiac Rhythm Insufficient to Support Life Current [...] instructed to go to lab tomorrow and leaf size picker specimen containers. - Continue imodium as needed. - Avoid dairy for now, or take Lactaid as needed. Peter eLe MD [facility] 10-03-2023 Note HNO ID: [id number] Author: Daniel Mcclelland MD Service: ? Author [...] the lab open and schedule with GI. [facility] 09-23-2023 Note HNO ID: [id number] Author: Aaliyah Stone PA-C Service: ? Author Type: Physician Machinist Automotive Type: Progress Notes Filed: 09/23/2023 2:29 PM [...] pain. No lower extremity edema. Follows with [facility]. 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 [facility] 09-11-2023 Miscellaneous Notes noted Patient phoned asking pcp what should she do with the metoprolol. Reports she hasn't taken it yet. Patient thinks pcp prescribed it. Advised patient to tell me what doctor's name is on the bottle. Patient reports Dr. Jeffrey's name is on the bottle. Dr. Jeffrey is with [facility]. Advised patient to call Dr. Jeffrey with this question and let us know if he wants her to take it. Patient agreeable. documented in this encounter [facility] 09-11-2023 Note HNO ID: [id number] Author: Jerad Bales APRN.COOPERAGE SHOP SUPERVISOR Service: ? 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 [facility] 09-11-2023 Instructions Jerad Bales APRN.CNS - 09/11/2023 3:16 PM EST Okay to use Imodium as needed for loose stools. Okay to use Tagamet if you are finding this helpful for loose stools. 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 No daily diarrhea. She took scfa-scy-zzntsoi Tagamet and seem to help. Okay to continue with this if she would like. Recommend take either famotidine or cimetidine. Okay to use Imodium [id number] per package directions if needed. If becomes more frequent then recommend further follow-up, stool testing, referral to gastroenterology. - C. DIFFICILE PCR - ENTERIC BACTERIAL PANEL BY PCR Jerad Bales APRN.COOPERAGE SHOP SUPERVISOR Medical Decision Making: Problems: Low: Acute, uncomplicated illness or injury Risk: Moderate: Drug management Medical Decision Making Level: 3 - Low documented in this encounter [facility] 09-04-2023 Miscellaneous Notes Patient return ed [...] you. Aaliyah Ray. documented in this encounter [facility] 08-24-2023 Note HNO ID: [id number] Author: Silvia Lima LPN Service: ? Author Type: ? Type: Progress Notes Filed: 08/24/2023 3:58 PM Note Text: Patient presents for Prolia injection. Denies any problems at this time. Patient instructed on any SE of medication, verbalized understanding and agreed to proceed with treatment. Tolerated injection well. Silvia Lima LPN [facility] 08-24-2023 History of Present illness Narrative Patient presents for Prolia injection. Denies any problems at this time. Patient instructed on any SE of medication, verbalized understanding and agreed to proceed with treatment. Tolerated injection well. Silvia Lima LPN documented in this encounter [facility] 08-17-2023 Miscellaneous Notes ok Patient scheduled for nurse visit 08/24/23 to receive Prolia. Please place order at this time. Silvia Lima LPN documented in this encounter [facility] 07-30-2023 Note HNO ID: [id number] Author: Jerad Bales APRN.COOPERAGE SHOP SUPERVISOR Service: ? 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 Notes she used Debrox as advised. HPI excerpted from previous visit: Followed by Dr Chaudhary EP AG/CC and [facility]. She is status post AV miguel catheter ablation with Dr. Chaudhary on January 02, 2023. 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 Notes reviewed paroxysmal atrial fibrillation rate controlled on systemic anticoagulation, Coumadin followed by [facility]. Sick sinus syndrome status post pacemaker placement. Congestive heart failure with ejection fraction 35% on echo completed October 14, 2022. Echocardiogram advised. Possible MRI or CT to be completed. She notes she did not have a stroke. Hip fracture earlier this year, seen at [facility] shortly thereafter. She reports hip has healed well. She notes chronic back pain, interested in ablation for her back however due to her pacemaker does not think she can do this.. Sees Dr Rodríguez [facility] for pain management. Some difficulty with [...] soft. Musculoskeletal: Rig (more content not included)... [facility] 07-23-2023 Note HNO ID: [id number] Author: Jerad Bales APRN.COOPERAGE SHOP SUPERVISOR Service: ? Author Type: Nurse Specialist Type: [...] Failure (Hcc) Hyperlipidemia Left Bundle Branch Block Residential Current Use of Anticoagulant Therapy Malignant Neoplasm [...] Atrioventricular Miguel Ablation (Hcc) Pacemaker-Dependent Due to [place] Cardiac Rhythm Insufficient to Support Life Followed by Dr Chaudhary EP AG/CC and [facility]. She is status post AV miguel catheter ablation with Dr. Chaudhary on January 02, 2023. 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 Notes reviewed paroxysmal atrial fibrillation rate controlled on systemic anticoagulation, Coumadin followed by [facility]. Sick sinus syndrome status post pacemaker placement. Congestive heart failure with ejection fraction 35% on echo completed October 14, 2022. Echocardiogram advised. Possible MRI or CT to be completed. She notes she did not have a stroke. Hip fracture earlier this year, seen at [facility] shortly thereafter. She reports hip has healed well. She notes chronic back pain, interested in ablation for her back however due to her pacemaker does not think she can do this.. Sees Dr Rodríguez [facility] for pain management. Some difficulty with [...] by mouth once (more content not included)... [facility] 07-23-2023 Instructions Jerad Bales APRN.CNS - 07/23/2023 2:25 PM EDT Consider the flu shot, covid booster, Tdap and shingles vaccine either at your local pharamcy or in clinic documented in this encounter [facility] 07-23-2023 History of Present illness Narrative [...] Failure (Hcc) Hyperlipidemia Left Bundle Branch Block Residential Current Use of Anticoagulant Therapy Malignant Neoplasm [...] Atrioventricular Miguel Ablation (Hcc) Pacemaker-Dependent Due to [place] Cardiac Rhythm Insufficient to Support Life Followed by Dr Chaudhary EP AG/CC and [facility]. She is status post AV miguel catheter ablation with Dr. Chaudhary on January 02, 2023. 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 Notes reviewed paroxysmal atrial fibrillation rate controlled on systemic anticoagulation, Coumadin followed by [facility]. Sick sinus syndrome status post pacemaker placement. Congestive heart failure with ejection fraction 35% on echo completed October 14, 2022. Echocardiogram advised. Possible MRI or CT to be completed. She notes she did not have a stroke. Hip fracture earlier this year, seen at [facility] shortly thereafter. She reports hip has healed well. She notes chronic back pain, interested in ablation for her back however due to her pacemaker does not think she can do this.. Sees [facility] [facility]. 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 Ventricular paced rhythm on most recent EKG. 9. Spinal stenosis of lumbar region with radiculopathy - ICD9: 724.02, 724.4, ICD10: M48.061, M54.16 - PREDNISONE 10 MG TABLET 1 week follow up Jerad Bales APRN.COOPERAGE SHOP SUPERVISOR schedule follow up hematology oncology - Nov [...] 4 - Moderate documented in this encounter [facility] 07-13-2023 Note HNO ID: [id number] Author: Jerad Medina RN Service: ? Author [...] Patient High CostTotal Patient High Cost {HIGH COST:622990) Quality measure review Payor request for assistance Action Taken: No action needed Jerad Medina RN July 13, 2023 12:22 PM [facility] 07-13-2023 Note Patient Outreach (AM [facility]) MICHELLE SHARPE ([id number]) 1940 F Date Time Provider Department 07/13/23 JERAD MEDINA [facility] During your visit today, we recorded the following information about you: Jerad Medina RN 07/13/2023 12:25 PM Signed CC [facility] NURSE - CHART REVIEW Provider DIANA PCC Action Chart review. Patient engaged with non [facility] primary care physician. No action needed Pt identified by name and . Reason for Review: Payor request Patient Attributed To: ANTHONY Payer: JOE Chart Review For: Utilization: ED Total Patient High CostTotal Patient High Cost {HIGH COST:756303) Quality measure review Payor request for assistance [...] 08/03/2020 Left bundle branch block [I44.7] 08/03/2020 [facility] current use of anticoagulant therapy *02/18/2019 Malignant neoplasm of urinary bladder (HCC) (more content not included)... [facility] 07-13-2023 History of Present illness Narrative CC [facility] NURSE - CHART REVIEW Provider DIANA PCC Action Chart review. Patient engaged with non [facility] primary care physician. No action needed Pt identified by name and . Reason for Review: Payor request Patient Attributed To: VANESSAE Payer: JOE Chart Review For: Utilization: ED Total Patient High CostTotal Patient High Cost {HIGH COST:833705) Quality measure review Payor request for assistance Action Taken: No action needed Jerad Medina RN July 13, 2023 12:22 PM documented in this encounter [facility] 07-01-2023 Note HNO ID: [id number] Author: Alisia Pacheco MD Service: ? Author [...] visit. HPI Patient presents with: Hospital F/U: [facility] Hospital discharge 06/27/23 for High Blood Pressure See additional documentation in other note [facility] 07-01-2023 Note HNO ID: [id number] Author: Alisia Pacheco MD Service: ? Author Type: Physician Type: Progress Notes Filed: 08/02/2023 11:52 PM Note Text: This note was created using Moogiriter. Subjective Michelle Sharpe is a 83 year old female. 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 [facility] 07-01-2023 History of Present illness Narrative Transitional [...] visit. HPI Patient presents with: Hospital F/U: [facility] Hospital discharge 06/27/23 for High Blood Pressure See additional documentation in other note This note was created using Moogiriter. Subjective Michelle Sharpe is a 83 year old female. 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 Permanent atrial fibrillation ([facility]) 11/21/2022 Permanent atrial fibrillation with rapid ventricular response ([facility]) 11/21/2022 Persistent atrial fibrillation (HCC) Presence of permanent cardiac pacemaker 01/15/2022 [employer] single chamber pacemaker; indication: symptomatic tachycardia-bradycardia syndrome Pulmonary emphysema ([facility]) 05/26/2017 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 Monson [...] since swelling might be affecting proprioception. See fashion artist as needed. Try support socks. 5. Dizziness [...] Alisia Pacheco MD documented in this encounter [facility] 07-01-2023 Instructions Alisia Pacheco MD - [...] of stomach upset. documented in this encounter [facility] 04-20-2023 Miscellaneous Notes Was this taken care of? Home care Certification Form 485 received from [facility] [employer]. For cert dates 02/17/2023-04/17/2023 that were signed on 03/04/2023. New Certification Patient's home health 485 form / care plan for stated certification period reviewed and signed. Relevant medical records were reviewed. No changes were indicated documented in this encounter [facility] 04-10-2023 Miscellaneous Notes Home care Certification Form [address] [facility]. For cert dates 01/31/2023-03/31/2023 that were signed on 02/12/2023. New Certification Patient's home health 485 form / care plan for stated certification period reviewed and signed. Relevant medical records were reviewed. No changes were indicated documented in this encounter [facility] 04-07-2023 Note HNO ID: [id number] Author: Alisia Pacheco MD Service: ? Author Type: Physician Type: Progress Notes Filed: 05/06/2023 12:04 AM Note Text: This note was created using Moogiriter. Subjective Michelle Sharpe is a 83 year old female. Patient presents with: ED Follow-up SUBJECTIVE: Michelle Sharpe is a 83 year old year old lady here today for ER follow up appointment for review of medical conditions. Seen in ER 03/26/23 at [facility] for Dyspnea and right sided chest [...] AM. [employer] does help legs. [facility]ed [facility] and told her they will no longer cover for home INR. Coumadin and INRs are managed by Dr. Souza. States that someone from [facility] would call here. No telephone encounters entered. 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 ipratropi (more content not included)... [facility] 04-07-2023 History of Present illness Narrative This note was created using PSI System[employer]. Subjective Michelle Sharpe is a 83 year old female. Patient presents with: ED Follow-up SUBJECTIVE: Michelle Sharpe is a 83 year old year old lady here today for ER follow up appointment for review of medical conditions. Seen in ER 03/26/23 at [facility] for Dyspnea and right sided chest [...] AM. [employer] does help legs. Noted that [facility] her and told her they will no longer cover for home INR. Coumadin and INRs are managed by Dr. Souza. States that someone from [facility] would call here. No telephone encounters entered. 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 Claudication of both lower extremities ([facility]) I73.9 7. Moderate COPD (chronic obstructive pulmonary disease) ([facility]) J44.9 Above issues addressed with patient. Patient [...] Alisia Pacheco MD documented in this encounter [facility] 03-02-2023 History of Present illness Narrative Images from the original note were not included. Patient Name: [facility] Location: [place] [address] [place] [id number] Date Of : Date Of Visit: 1940 05/06/2023 MRN# Provider: [id number] Ronen Valentin CNP Chief Complaint Patient presents with Urinary [...] repeat urine testing. documented in this encounter [facility] 03-02-2023 Instructions Ronen Valentin CNP - 05/06/2023 [...] through Care Everywhere.UTI (Urinary Tract Infection): Female (Bolivian)documented in this encounter [facility] 02-16-2023 Note HNO ID: [id number] Author: Tex Johnson APRN.JOSEMANUEL Service: ? Author Type: Nurse Practitioner Type: Progress Notes Filed: 02/16/2023 11:26 AM Note Text: [facility] General Cardiology Electrophysiology PRIMARY CARE PHYSICIAN: Alisia Pacheco [address] [place] [address] CHIEF COMPLAINT: Follow-up status post AV miguel [...] 2021 for tachycardia-bradycardia syndrome. This is a [employer] single-chamber ventricular pacemaker system. Unfortunately, she [...] hip. She underwent right hip surgery at [facility] shortly thereafter. 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 This is a [employer] single-chamber ventricular pacemaker system. Unfortunately, she [...] post AV miguel catheter ablation with Dr. Chaudhayr on 01/02/2023. Patient had been doing well status post AV miguel ablation. Unfortunately roughly 2 days post she experienced a fall at home and fractured her right hip. She underwent right hip surgery at [facility] shortly thereafter. 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 Permanent atrial fibrillation (HCC) 11/21/2022 Permanent atrial fibrillation with rapid ventricular response (HCC) 11/21/2022 Persistent atrial fibrillation (HCC) Presence of permanent cardiac pacemaker 01/15/2022 [employer] single chamber pacemaker; indication: symptomatic tachycardia-bradycardia [...] 04/2019 CARDIOVERSION ELECTIVE ARRHYTHMIA INTERNAL SPX 04/24/2020 [facility] CARDIOVERSION ELECTIVE ARRHYTHMIA INTERNAL SPX 05/2017 CARDIOVERSION ELECTIVE ARRHYTHMIA INTERNAL SPX 10/2017 CARDIOVERSION ELECTIVE ARRHYTHMIA INTERNAL SPX 10/2018 HEART VALVE REPAIR 07/2018 SEPTAL MYECTOMY AND MVP WITH ANNULOPLASTY WITH A #33 RM BAND, B/L PULMONARY VEIN ISOLATION WITH MULTIPLE OCCASIONA SOF THE ARTICURE RADIOFREQUENCY CLAMP AND CLIPPING OF THE LEFT ATRIAL APPENDAGE WITH A 50MM ARTICURE CLIP PACEMAKER,SINGLE,RATE RESPON Left 12/10/[address] [facility] [address] Souza; [employer] single-chamber pacemaker; indication: symptomatic tachycardia-bradycardia syndrome VENTRICULOMYOTOMY-MYECTOMY 07/2018 septal myectomy for HCM; [facility], Dr. Jo Social History Tobacco Use [...] with 1.5 mg on all other days. [id number] of 5 secondary to age, gender, CHF, and hypertension. Patient continued to experience tachycardic rates despite undergoing single-chamber [employer] permanent pacemaker in December 2021 with [...] above. No follow-ups on file. Tex Johnson APRN.OFFSET PRESS ASSISTANT documented in this encounter [facility] 02-16-2023 Nurse Note No cardiac complaints today. No Gunn MA documented in this encounter [facility] 02-12-2023 Miscellaneous Notes Attempted to contact [employer] but no answer. Left providers message an confidential voice mailbox. Noted Will follow along with them for orders, etc. [facility] calling to let PCP know patient will be moving back home to [place] from her daughter's home in [place] this weekend. They will be her home health care agency. [employer]'s phone # [phone]. Jessica Haider RN documented in this encounter [facility] 02-11-2023 Miscellaneous Notes Daughter aware of same. Tracker updated. Take 3 mg today, and Thursday, then 1.5 mg daily except 3 mg on Thursday, Thursday and Thursday. Recheck INR in 2 weeks Usman nurse @ [facility] calling with INR result =1.7. Patient is currently taking Coumadin 3 mg on Thu/ and 1.5 mg Coumadin on all other days. She has no signs of bleeding or bruising. She has no recent changes in diet or medications. Jessica Haider RN documented in this encounter [facility] 02-10-2023 Miscellaneous Notes Pts daughter called and is notified of providers message and instructions. She voices understanding. She states she wrote down all of that information except the part about increasing it back up to the 40 mg for fluid retention. She said they never got the AVS at [place]. Liberty Bravo RN The instructions for taking [...] Pt is staying with her daughter in [place]. Pts daughter reports that when they had [...] : Postmenopausal Protocols used: Leg Swelling and [id number] documented in this encounter [facility] 02-04-2023 Note HNO ID: [id number] Author: Alisia Pacheco MD Service: ? Author Type: Physician Type: Progress Notes Filed: 03/09/2023 12:07 AM Note Text: This note was created using Moogiriter. Subjective Michelle Sharpe is a 83 year [...] Wed and Thur 3 mg. Staying in [place] at [facility]. 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 Monson [...] SPRAYS IN EA (more content not included)... [facility] 02-04-2023 Instructions Alisia Pacheco MD - 02/04/2023 [...] issues and Flomax. documented in this encounter [facility] 02-04-2023 History of Present illness Narrative This note was created using Moogiriter. Subjective Michelle Sharpe is a 83 year [...] Wed and Thur 3 mg. Staying in [place] at [facility]. 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[place]-paiute cardiac rhythm insufficient to support life Permanent atrial fibrillation (HCC) 11/21/2022 Permanent atrial fibrillation with rapid ventricular response (HCC) 11/21/2022 Persistent atrial fibrillation (HCC) Presence of permanent cardiac pacemaker 01/15/2022 [employer] single chamber pacemaker; indication: symptomatic tachycardia-bradycardia [...] the date of the service which included [id number] patient care, completing clinical documentation, obtaining and/or reviewing separately obtained history, performing a medically appropriate examination, counseling and educating the patient/family/caregiver, and communicating with other HCPs (not separately reported). Alisia Pacheco MD documented in this encounter [facility] 02-03-2023 Miscellaneous Notes Noted Will discuss [...] daily, water is best. Did phone Emily [facility], but she was driving and connection was poor. Faxed this encounter per Emily request: fax # [phone] (received confirmation) If no recent change in [...] for low BP by Dr. Smith in [facility]. Reports patient is also taking lisinopril 20 [...] advise daughter. Also see message below from [facility] nurse. Pt. staying with daughter in [place] for about 1 week they are using [facility] care. Last INR done on 01/01 was 2.2. She is taking 3 mg coumadin on Thu, and 1.5 all other days. When do you want this rechecked? Also she is on Midirone 5 mg, lasix 40 mg, Lisinopril 20 mg, Metoprolol 100 mg. How often do you want Vital signs done? Please advise. documented in this encounter [facility] 01-29-2023 Miscellaneous Notes Silvia from [facility] notified of providers message and verbalized understanding. OK for [facility] Silvia from [facility] calls and states that patient is being discharged from [facility] on 01/30/2023 with the diagnosis of right hip fracture. Silvia asking if provider willing to follow patient with orders for nursing home, physical therapy, and occupational therapy. If agreeable please give Silvia a call back . Thank you, Linda Elmore RN documented in this encounter [facility] 01-01-2023 Note HNO ID: [id number] Author: Bebeto Chaudhary MD Service: ? Author Type: Physician Type: Progress Notes Filed: 01/01/2023 3:13 PM Note Text: [facility] Electrophysiology (EP) Received blood test result for INR 01/01/2023 INR 2.2. She is scheduled for procedure tomorrow 01/02/2023, this INR value is fine. Bebeto Chaudhary MD January 01, 2023 3:12 PM [facility] 01-01-2023 History of Present illness Narrative [facility] General Electrophysiology (EP) Received blood test result for INR 01/01/2023 INR 2.2. She is scheduled for procedure tomorrow 01/02/2023, this INR value is fine. Bebeto Chaudhary MD January 01, 2023 3:12 PM documented in this encounter [facility] 12-21-2022 Miscellaneous Notes Patient notified that vaginal cultures are negative. Can use mycolog for itching. Will call if needs treatment from urine culture. Lou Pascual APRN.CNP documented in this encounter [facility] 12-20-2022 Note HNO ID: [id number] Author: Lou Pascual APRN.CNP Service: ? Author Type: Nurse Practitioner Type: Progress Notes Filed: 12/20/2022 11:58 AM Note Text: Subjective The history is provided by the patient. No translator and interpreter was used. HPI Michelle Sharpe is a [...] block) ekg 06/27/20 Long Q-T syndrome 01/21/2017 [facility] (current) use of 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 COUMADIN MR (mitral regurgitation) with assymetric hypertrophic cardiomyopathy 09/2001 Nonrheumatic mitral valve regurgitation Osteoporosis Permanent atrial fibrillation (HCC) 11/21/2022 Permanent atrial fibrillation with rapid ventricular response (HCC) 11/21/2022 Persistent atrial fibrillation (HCC) Presence of permanent cardiac pacemaker 01/15/2022 [employer] single chamber pacemaker; indication: symptomatic tachycardia-bradycardia syndrome Pulmonary emphysema (HCC) 05/26/2017 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 Monson follows for benign tumor removed 2002 I have confirmed and edited as necessary, the [facility] Review of Systems Constitutional: Negative for chills and fever. Gastrointestinal: Negative for abdominal pain, nausea and vomiting. Genitourinary: Positive for dysuria. Negative for flank pain, frequency, hematuria and urgency. Vaginal burning and itching Objective Physical Exam Vitals and nursing note reviewed. Exam conducted with a irrigation system operator present. Constitutional: Appearance: Normal appearance. Abdominal: General: [...] warranting prompt ER evaluation. Lou Pascual APRN.CNP [facility] 12-20-2022 Instructions Lou Pascual APRN.CNP - 12/20/2022 [...] go to ER. documented in this encounter [facility] 12-20-2022 History of Present illness Narrative Subjective The history is provided by the patient. No translator and interpreter was used. 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 COUMADIN MR (mitral regurgitation) with assymetric hypertrophic cardiomyopathy 09/2001 Nonrheumatic mitral valve regurgitation Osteoporosis Permanent atrial fibrillation (HCC) 11/21/2022 Permanent atrial fibrillation with rapid ventricular response (HCC) 11/21/2022 Persistent atrial fibrillation (HCC) Presence of permanent cardiac pacemaker 01/15/2022 [employer] single chamber pacemaker; indication: symptomatic tachycardia-bradycardia syndrome Pulmonary emphysema (HCC) 05/26/2017 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 Monson follows for benign tumor removed 2002 I have confirmed and edited as necessary, the [facility] Review of Systems Constitutional: Negative for chills and fever. Gastrointestinal: Negative for abdominal pain, nausea and vomiting. Genitourinary: Positive for dysuria. Negative for flank pain, frequency, hematuria and urgency. Vaginal burning and itching Objective Physical Exam Vitals and nursing note reviewed. Exam conducted with a irrigation system operator present. Constitutional: Appearance: Normal appearance. Abdominal: General: [...] Lou Pascual APRN.JOSEMANUEL documented in this encounter [facility] 12-15-2022 Miscellaneous Notes Portia called in and confirmed receiving message and will have INR's done weekly. She is aware range should be 2-3. Suze Taylor LPN Left message with PRETTY Pearce ([phone]) at [facility] regarding weekly INR levels for AV Node ablation scheduled with Dr. Chaudhary on 01/02/23. Nan Doyle RN Pt calls back. He gets his inr checks done at [facility]. Summer Yeager LPN Left message on [...] before the procedure. Patient will need a residential driver when released from the hospital. You will stay overnight for observation. Patient should continue to take medications as prescribed the morning of the procedure with just a sip of water unless otherwise instructed. H&P Update on 12/23 at 8am with Tex Johnson Spoke with patient and she verbalized understanding of all instructions Maria G Lopez documented in this encounter [facility] 12-03-2022 Miscellaneous Notes Patient notified RX sent. Inga Rodriguez LPN I have reviewed your medication list. I sent the generic fluticasone-salmeterol on 12/01/2022. Nazia Patient called. Verified name and date of . States she just talked tot pharmacy and her insurance will not covered what was ordered but will cover generic fluticasone-salmeterol (Same medication). Please review and advise. Damaris Valienet LPN documented in this encounter [facility] 11-28-2022 Miscellaneous Notes Pt called to [...] before the procedure. Patient will need a residential driver when released from the hospital. You will stay overnight for observation. Patient should continue to take medications as prescribed the morning of the procedure with just a sip of water unless otherwise instructed. LM for patient to call back to confirm date/instructions Maria G John documented in this encounter [facility] 11-21-2022 Note HNO ID: [id number] Author: Bebeto Chaudhary MD Service: ? Author Type: Physician Type: Progress Notes Filed: 11/21/2022 6:15 PM Note Text: PRIMARY CARE PHYSICIAN: Alisia Pacheco [address] [place] [address] Patient Care Team: Alisia Pacheco MD as PCP - General (Internal Medicine) Arnold Bland as Consulting (Cardiology) Panda Miller MD as Specialty Hospital Recruiter (Pulmonary and Critical Care Medicine) Maria Isabel [...] septal myectomy and mitral valve repair at [facility] in July 2018. At that time [...] No cardiac concerns documented in this encounter [facility] 11-21-2022 History of Present illness Narrative PRIMARY CARE PHYSICIAN: Alisia Pacheco [address] [place] [address] Patient Care Team: Alisia Pacheco MD as PCP - General (Internal Medicine) Arnold Bland as Consulting (Cardiology) Panda Miller MD as Specialty Hospital Recruiter (Pulmonary and Critical Care Medicine) Maria Isabel [...] septal myectomy and mitral valve repair at [facility] in July 2018. At that time [...] agreement on this matter. Interim History Dr. hCaudhary 11/21/2022: Ms. Sharpe presents for evaluation of [...] 2021 for tachycardia-bradycardia syndrome. This is a [employer] single-chamber ventricular pacemaker system. Unfortunately, she [...] Xray HLD (hyperlipidemia) HOCM (hypertrophic obstructive cardiomyopathy) ([facility]) IBS (irritable bowel syndrome) with diarrhea and urgency Impaired fasting glucose 10/06/2008 LBBB (left bundle branch block) ekg 06/27/20 Long Q-T syndrome 01/21/2017 intermediate manager (current) use of 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 COUMADIN MR (mitral regurgitation) with assymetric hypertrophic cardiomyopathy 09/2001 Nonrheumatic mitral valve regurgitation Osteoporosis Permanent atrial fibrillation (HCC) 11/21/2022 Permanent atrial fibrillation with rapid ventricular response (HCC) 11/21/2022 Persistent atrial fibrillation (HCC) Presence of permanent cardiac pacemaker 01/15/2022 [employer] single chamber pacemaker; indication: symptomatic tachycardia-bradycardia [...] 04/2019 CARDIOVERSION ELECTIVE ARRHYTHMIA INTERNAL SPX 04/24/2020 [facility] CARDIOVERSION ELECTIVE ARRHYTHMIA INTERNAL SPX 05/2017 CARDIOVERSION ELECTIVE ARRHYTHMIA INTERNAL SPX 10/2017 CARDIOVERSION ELECTIVE ARRHYTHMIA INTERNAL SPX 10/2018 HEART VALVE REPAIR 07/2018 SEPTAL MYECTOMY AND MVP WITH ANNULOPLASTY WITH A #33 RM BAND, B/L PULMONARY VEIN ISOLATION WITH MULTIPLE OCCASIONA SOF THE ARTICURE RADIOFREQUENCY CLAMP AND CLIPPING OF THE LEFT ATRIAL APPENDAGE WITH A 50MM ARTICURE CLIP PACEMAKER,SINGLE,RATE RESPON Left 12/10/[address] [facility] [address]. Souza; [employer] single-chamber pacemaker; indication: symptomatic tachycardia-bradycardia syndrome VENTRICULOMYOTOMY-MYECTOMY 07/2018 septal myectomy for HCM; [facility], Dr. Jo SOCIAL HISTORY Social History [...] which included preparing to see the patient, [id number] patient care, completing clinical documentation, obtaining and/or [...] cardiac pacemaker - ICD9: V45.01, ICD10: Z95.0 [employer] single-chamber ventricular pacemaker system implanted 12/10/2021 [...] that I would reach out to her solid waste division supervisor, Dr. Bland, to review my recommendations and [...] 4 - Moderate documented in this encounter [facility] 10-20-2022 Miscellaneous Notes Patient phones requesting refills as follows: Requested Prescriptions Pending Prescriptions Disp Refills albuterol HFA (VENTOLIN HFA) 90 mcg/actuation inhaler 1 Each 5 Sig: Inhale 2 Puffs as instructed every 4 hours as needed for wheezing/shortness of breath. Please review and advise. Inga Rodriguez LPN documented in this encounter [facility] 10-03-2022 Miscellaneous Notes Patient has been identified by name and date of : Yes Requested Prescriptions Pending Prescriptions Disp Refills fluticasone-salmeterol (ADVAIR, WIXELA) 250-50 mcg/dose inhaler 1 Each 5 Sig: Inhale 1 Puff as instructed twice daily. RX INSTRUCTIONS: Patient aware RX will be sent to pharmacy. No need to notify patient. Sari Quiles Ma documented in this encounter [facility] 09-22-2022 Procedure note Associated Ord er(s): [...] unsteady while walking.) documented in this encounter [facility] 09-22-2022 History of Present illness Narrative Patient: Michelle Sharpe PCP: Alisia Pacheco MD CC: COPD HPI: Michelle Sharpe 82 year old female former smoker, 58 pack years (quitting 2004) with PMH significant for mitral regurgitation, HOCM, HTN, hyperlipidemia, AFib, chronic diastolic heart failure, small B-cell lymphoma with bone metastasis, and COPD. Recently had pacemaker placed at [facility] in January 2022. Since the last Pulmonary Clinic visit 05/01/2022, the patient has not required ED care for exacerbation. However, she was seen in the [place] ED following a fall. There has been [...] block) ekg 06/27/20 Long Q-T syndrome 01/21/2017 intermediate manager (current) use of 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 COUMADIN MR (mitral [...] HISTORY Procedure Laterality Date ANESTH,PACEMAKER INSERTION 01/[address] [facility] [address] Souza BLADDER SURGERY HX 2004 tumor removed from bladder CARDIOVERSION ELECTIVE ARRHYTHMIA INTERNAL SPX 04/2019 CARDIOVERSION ELECTIVE ARRHYTHMIA INTERNAL SPX 04/24/2020 [facility] CARDIOVERSION ELECTIVE ARRHYTHMIA INTERNAL SPX 05/2017 CARDIOVERSION ELECTIVE ARRHYTHMIA INTERNAL SPX 10/2017 CARDIOVERSION ELECTIVE ARRHYTHMIA INTERNAL SPX 10/2018 HEART VALVE REPAIR 07/2018 SEPTAL MYECTOMY AND MVP WITH ANNULOPLASTY WITH A #33 RM BAND, B/L PULMONARY VEIN ISOLATION WITH MULTIPLE OCCASIONA SOF THE ARTICURE RADIOFREQUENCY CLAMP AND CLIPPING OF THE LEFT ATRIAL APPENDAGE WITH A 50MM ARTICURE CLIP VENTRICULOMYOTOMY-MYECTOMY 07/2018 septal myectomy for HCM; [facility], Dr. Jo I reviewed the past [...] Aaliyah Stone PA-C documented in this encounter [facility] 09-22-2022 History of Present illness Narrative PULM FUNCTION SMARTBLOCK: Provider: Aaliyah Stone PA-C Assisting Tech: GREG Wallace Oximetry - Ambulation: 1 documented in this encounter [facility] 09-19-2022 Miscellaneous Notes Patient was in express care today - PCP was down to speak with her. Closing encounter. Berry Piper Ma Patient calling to speak to clinical about a medication for diverticulitis. She cannot remember the name of the medication that may have been prescribed in the past. documented in this encounter [facility] 09-19-2022 Instructions Alisia Pacheco MD - 09/19/2022 1:09 PM EST Take Gas X to see if this relieves the pain. [place] diet, low residual and soft foods for now and advance a tolerated. Take antibiotic if acting more like overt diverticulitis. If need to take the antibiotic, then would recommend evaluation with Dr. Valdivia (surgeon at [facility] Go to hospital if develop red flag symptoms--including severe pain, nausea and vomiting, bleeding, intractable diarrhea, signs of dehydration, etc. Can use hydrocodone for the pain but still need to go to ER if severe. documented in this encounter [facility] 09-19-2022 History of Present illness Narrative This note was created using [employer]. Subjective Michelle Sharpe is a 82 year [...] block) ekg 06/27/20 Long Q-T syndrome 01/21/2017 intermediate manager (current) use of 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 COUMADIN MR (mitral [...] side ribs and muscles. Patient seen in [facility] when present for recurrent LLQ pain. At this time, not consistent with acute diverticulitis. Further evaluation as discussed. Alisia Pacheco MD documented in this encounter [facility] 09-10-2022 History of Present illness Narrative This note was created using [employer]. Subjective Michelle Sharpe is a 82 year [...] block) ekg 06/27/20 Long Q-T syndrome 01/21/2017 [facility] (current) use of 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 COUMADIN MR (mitral [...] Alisia Pacheco MD documented in this encounter [facility] 09-04-2022 Miscellaneous Notes Patient called and [...] 6 months Prolia. documented in this encounter [facility] 09-01-2022 History of Present illness Narrative [...] block) ekg 06/27/20 Long Q-T syndrome 01/21/2017 [facility] (current) use of 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 COUMADIN MR (mitral [...] HISTORY Procedure Laterality Date ANESTH,PACEMAKER INSERTION 01/[address] [facility] [address] Souza BLADDER SURGERY HX 2003 tumor removed from bladder CARDIOVERSION ELECTIVE ARRHYTHMIA INTERNAL SPX 04/2019 CARDIOVERSION ELECTIVE ARRHYTHMIA INTERNAL SPX 04/24/2020 [facility] CARDIOVERSION ELECTIVE ARRHYTHMIA INTERNAL SPX 05/2017 CARDIOVERSION ELECTIVE ARRHYTHMIA INTERNAL SPX 10/2017 CARDIOVERSION ELECTIVE ARRHYTHMIA INTERNAL SPX 10/2018 HEART VALVE REPAIR 07/2018 SEPTAL MYECTOMY AND MVP WITH ANNULOPLASTY WITH A #33 RM BAND, B/L PULMONARY VEIN ISOLATION WITH MULTIPLE OCCASIONA SOF THE ARTICURE RADIOFREQUENCY CLAMP AND CLIPPING OF THE LEFT ATRIAL APPENDAGE WITH A 50MM ARTICURE CLIP VENTRICULOMYOTOMY-MYECTOMY 07/2018 septal myectomy for HCM; [facility], Dr. Jo ALLERGIES Zyloprim [Allopurinol], Environmental [...] IMPRESSION IMPRESSION: No significant acute radiographic abnormality. Traffic Technician: PHILIPPE Transcribe Date/Time: Sep 01 2022 3:00P Dictated by : VANDANA HENSLEY MD At this time patient was instructed to just rest and see if the area gets any more comfortable over the next week or so. If not she will follow-up with primary care. Pina Singleton APRN.JOSEMANUEL documented in this encounter [facility] 08-25-2022 Miscellaneous Notes Patient calls back and notified of results. Patient voiced understanding. Linda Elmore RN Left message for return call. Please let patient know that no rib fractures or abnormalities were noted on rib xray. Thank you Mana Valentin APRN.JOSEMANUEL documented in this encounter [facility] 08-22-2022 History of Present illness Narrative CC: Patient presents with: Recheck: [facility] ER follow up HPI Michelle Sharpe is a 82 year old female who presents today for ER follow-up. Facility: [facility] ER Date of visit: 08/17/22 Reason [...] Has A-fib and a pacemaker and sees [facility]. Unsure when she last saw [...] block) ekg 06/27/20 Long Q-T syndrome 01/21/2017 intermediate manager (current) use of 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 COUMADIN MR (mitral [...] HISTORY Procedure Laterality Date ANESTH,PACEMAKER INSERTION 01/[address] [facility] [address] Souza BLADDER SURGERY HX 2004 tumor removed from bladder CARDIOVERSION ELECTIVE ARRHYTHMIA INTERNAL SPX 04/2019 CARDIOVERSION ELECTIVE ARRHYTHMIA INTERNAL SPX 04/24/2020 [facility] CARDIOVERSION ELECTIVE ARRHYTHMIA INTERNAL SPX 05/2017 CARDIOVERSION ELECTIVE ARRHYTHMIA INTERNAL SPX 10/2017 CARDIOVERSION ELECTIVE ARRHYTHMIA INTERNAL SPX 10/2018 HEART VALVE REPAIR 07/2018 SEPTAL MYECTOMY AND MVP WITH ANNULOPLASTY WITH A #33 RM BAND, B/L PULMONARY VEIN ISOLATION WITH MULTIPLE OCCASIONA SOF THE ARTICURE RADIOFREQUENCY CLAMP AND CLIPPING OF THE LEFT ATRIAL APPENDAGE WITH A 50MM ARTICURE CLIP VENTRICULOMYOTOMY-MYECTOMY 07/2018 septal myectomy for HCM; [facility], Dr. Jo ALLERGIES Zyloprim [Allopurinol], Environmental [...] 65+ Completed DATA REVIEWED: Outside chart from [facility] reviewed. ASSESSMENT/PLAN: 1. Atrial fibrillation, unspecified [...] Mana Valentin APRN.CNP documented in this encounter [facility] 08-14-2022 Miscellaneous Notes Attempted to scheduled [...] and states that she was just at [facility] and they were concerned that patient has a DVT in her right leg. Patients leg and ankle are swollen. Patient was told that she needed to call PCP to get orders for ultrasound for right leg. Patient also states that [facility] is wanting orders placed for a bone density test. Please review and advise, Linda Elmore RN documented in this encounter [facility] 08-14-2022 Instructions Alisia Pacheco MD - [...] usual activities immediately. documented in this encounter [facility] 08-13-2022 Miscellaneous Notes Patient given provider's [...] if gabapentin can be sent to [facility]. [facility] and [facility] uses [facility]. Please review and advise, Linda Elmore RN documented in this encounter [facility] 10-04-2022 Miscellaneous Notes Patient notified ----- Message from Alisia Pacheco MD sent at 08/02/2022 12:58 AM EDT ----- Noted diverticulosis and thickening of the bowel wall but not overt diverticulitis--note that given her symptoms were improving, it correlates clinically with resolving diverticulitis. Other findings stable (gallstones, left adrenal adenoma, lesions in liver and spleen). Let patient know. documented in this encounter [facility] 07-14-2022 Instructions Alisia Pacheco MD - 07/14/2022 3:28 PM EDT Check INR at the end of this week because of Cipro. documented in this encounter [facility] 07-14-2022 History of Present illness Narrative Images from the original note were not included. This note was created using [employer]. Subjective Michelle Sharpe is a 82 year old female. Patient presents with: ER F/U SUBJECTIVE: Michelle Sharpe is a 82 year old year old lady here today for ER follow up appointment for review of medical conditions. Reviewed issues with back--Dr. Rodríguez did injections. She made an appointment with Dr. Cárdenas (spine surgeon, [facility]). Noted that had pacer put in because [...] block) ekg 06/27/20 Long Q-T syndrome 01/21/2017 intermediate manager (current) use of 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 COUMADIN MR (mitral [...] Alisia Pacheco MD documented in this encounter [facility] 07-11-2022 Miscellaneous Notes This [facility] [employer] called patient at [phone] and identified with name and . States she is feeling better. Started taking prescription Advised to increase water intake Go to ED if any abdominal pain. Keep follow up Thursday with Dr. Pacheco. Patient verbalized understanding All questions answered. Lou Pascual CNP documented in this encounter [facility] 07-11-2022 Miscellaneous Notes [facility] reports [facility] tells [facility] back order and no pharmacy in [facility] has it. This nurse phoned [facility], who states they do have augmentin 875-125 mg. Gave verbal order to pharmacist, Martinez. Cancelled augmentin at [facility]. Notified patient she can leaf size picker at [facility]. Pt called back and states the prescription she was to leaf size picker at her pharmacy she was told by the pharmacy they can not get this medication and pt is requesting something else be called in. Pt would like to be notified. Avelina Polanco LPN documented in this encounter [facility] 07-10-2022 History of Present illness Narrative [...] for GI bleed April 2021. Treated at [facility] 07/05/22 for symptomatic afib with RVR. She [...] block) ekg 06/27/20 Long Q-T syndrome 01/21/2017 [facility] (current) use of 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 COUMADIN MR (mitral [...] HISTORY Procedure Laterality Date ANESTH,PACEMAKER INSERTION 01/[address] [facility] [address] Souza BLADDER SURGERY HX 2003 tumor removed from bladder CARDIOVERSION ELECTIVE ARRHYTHMIA INTERNAL SPX 04/2019 CARDIOVERSION ELECTIVE ARRHYTHMIA INTERNAL SPX 04/24/2020 [facility] CARDIOVERSION ELECTIVE ARRHYTHMIA INTERNAL SPX 05/2017 CARDIOVERSION ELECTIVE ARRHYTHMIA INTERNAL SPX 10/2017 CARDIOVERSION ELECTIVE ARRHYTHMIA INTERNAL SPX 10/2018 HEART VALVE REPAIR 07/2018 SEPTAL MYECTOMY AND MVP WITH ANNULOPLASTY WITH A #33 RM BAND, B/L PULMONARY VEIN ISOLATION WITH MULTIPLE OCCASIONA SOF THE ARTICURE RADIOFREQUENCY CLAMP AND CLIPPING OF THE LEFT ATRIAL APPENDAGE WITH A 50MM ARTICURE CLIP VENTRICULOMYOTOMY-MYECTOMY 07/2018 septal myectomy for HCM; [facility], Dr. Jo MEDICATIONS: gabapentin (NEURONTIN) 100 [...] stool, fever develops, or she has lethargy/dizziness. Daniel Mcclelland MD documented in this encounter [facility] 07-10-2022 Miscellaneous Notes Patient calling in again and states she plans to go to [facility] today for further evaluation. Olinda Perez [...] Linda Elmore RN documented in this encounter [facility] 07-05-2022 Miscellaneous Notes Okayed Last seen pcp 04/15/22. Next appt is with [facility] 09/15/22. Patient has been identified by name and date of : Yes Requested Prescriptions Pending Prescriptions Disp Refills gabapentin (NEURONTIN) 100 mg capsule 60 capsule 0 Sig: Take 2 capsules by mouth once daily for 30 days. RX INSTRUCTIONS: Patient aware RX will be sent to pharmacy. No need to notify patient. Renetta Stack documented in this encounter [facility] 06-04-2022 Miscellaneous Notes Discussed with EB, [...] pt. to take? documented in this encounter [facility] 05-01-2022 History of Present illness Narrative PULM FUNCTION SMARTBLOCK: Provider: Aaliyah Stone PA-C Assisting Tech: GREG Wallace Spirometry: 1 documented in this encounter [facility] 05-01-2022 History of Present illness Narrative [facility] Respiratory [place], 05/01/2022: Name: Michelle Sharpe : 1940 The [...] visit 07/26/2021, the patient was evaluated in [place] ED on 04/09/[address] [...] need it every day . Follows with [facility]. Currently not wearing supplemental oxygen. [...] Aaliyah Stone PA-C documented in this encounter [facility] 04-15-2022 History of Present illness Narrative This note was created using [employer]. Subjective Michelle Sharpe is a 82 year [...] seeing a spine surgeon (Dr. C[facility]denas at [facility]). Prednisone taper that Jerad gave had helped [...] block) ekg 06/27/20 Long Q-T syndrome 01/21/2017 intermediate manager (current) use of 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 COUMADIN MR (mitral [...] heart failure with preserved ejection fraction (HFpEF) ([facility]) - ICD9: 428.9, ICD10: I50.32 Compensated now. [...] Alisia Pacheco MD documented in this encounter [facility] 04-11-2022 Miscellaneous Notes Patient went to [facility] for Acute respiratory infection and antibiotic was stopped. Please let her know mixed roslyn on urinary culture. Recommend recheck urinalysis in about 1 month. If microscopic hematuria persists recommend an appointment with urology provider. consult has been placed in the event she may need it. documented in this encounter [facility] 04-08-2022 Instructions Jerad Bales APRN.CNS - 04/08/2022 11:22 AM EDT Check you INR level on the antibiotic this week. Start taking macrobid for urinary tract infection. Take with food. documented in this encounter [facility] 04-08-2022 History of Present illness Narrative [...] she is on oral anticoagulation followed by [facility], Portia Downey at home. INR is completed at [facility]. She reports bradycardia, underwent pacemaker at [facility] about [address] [...] block) ekg 06/27/20 Long Q-T syndrome 01/21/2017 [facility] (current) use of 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 COUMADIN MR (mitral [...] cardiac pacemaker - ICD9: V45.01, ICD10: Z95.0 [facility] Sep/Oct visit with MD Jerad Hernandez APRN.COOPERAGE SHOP SUPERVISOR Medical Decision Making: Problems: Low: Acute, uncomplicated illness or injury Risk: Moderate: Drug management Medical Decision Making Level: 3 - Low documented in this encounter [facility] 03-24-2022 Miscellaneous Notes I did not place a call to patient. Nazia Pateint called stating she missed a call from clinic. She can be reached on her cell: [phone]. Damaris Valiente LPN Patient called and states that Aaliyah Stone PA-C, called her. Patient returning call. Damaris Valiente LPN documented in this encounter [facility] 03-23-2022 Miscellaneous Notes Patient called to advise that the cephalexin is making her stomach upset and her fingertips are tingling, she does not want to take any more of the medication. Rx for Cipro sent to [facility]. Jennifer Cristina APRN.OFFSET PRESS ASSISTANT documented in this encounter [facility] 03-22-2022 Instructions Jennifer Cristina APRN.OFFSET PRESS ASSISTANT - 03/22/2022 12:39 PM EDT ASSESSMENT/PLAN: 1. [...] Discussed expected course of illness Jennifer Cristina APRN.OFFSET PRESS ASSISTANT [facility] PATIENT INFO BLADDER INFECTION OVERVIEW [...] have an infection. documented in this encounter [facility] 03-22-2022 History of Present illness Narrative [...] block) ekg 06/27/20 Long Q-T syndrome 01/21/2017 intermediate manager (current) use of 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 COUMADIN MR (mitral [...] 04/2019 CARDIOVERSION ELECTIVE ARRHYTHMIA INTERNAL SPX 04/24/[facility] C[facility] E[facility]IVE ARRHYTHMIA INTERNAL SPX 05/2017 CARDIOVERSION ELECTIVE ARRHYTHMIA INTERNAL SPX 10/2017 CARDIOVERSION ELECTIVE ARRHYTHMIA INTERNAL SPX 10/2018 HEART VALVE REPAIR 07/2018 SEPTAL MYECTOMY AND MVP WITH ANNULOPLASTY WITH A #33 RM BAND, B/L PULMONARY VEIN ISOLATION WITH MULTIPLE OCCASIONA SOF THE ARTICURE RADIOFREQUENCY CLAMP AND CLIPPING OF THE LEFT ATRIAL APPENDAGE WITH A 50MM ARTICURE CLIP VENTRICULOMYOTOMY-MYECTOMY 07/2018 septal myectomy for HCM; [facility], Dr. Jo ALLERGIES Zyloprim [Allopurinol], Environmental [...] Discussed expected course of illness Jennifer Cristina APRN.OFFSET PRESS ASSISTANT documented in this encounter [facility] 02-09-2022 History of Present illness Narrative [...] block) ekg 06/27/20 Long Q-T syndrome 01/21/2017 [facility] (current) use of 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 COUMADIN MR (mitral [...] 04/2019 CARDIOVERSION ELECTIVE ARRHYTHMIA INTERNAL SPX 04/24/2020 [facility] CARDIOVERSION ELECTIVE ARRHYTHMIA INTERNAL SPX 05/2017 CARDIOVERSION ELECTIVE ARRHYTHMIA INTERNAL SPX 10/2017 CARDIOVERSION ELECTIVE ARRHYTHMIA INTERNAL SPX 10/2018 HEART VALVE REPAIR 07/2018 SEPTAL MYECTOMY AND MVP WITH ANNULOPLASTY WITH A #33 RM BAND, B/L PULMONARY VEIN ISOLATION WITH MULTIPLE OCCASIONA SOF THE ARTICURE RADIOFREQUENCY CLAMP AND CLIPPING OF THE LEFT ATRIAL APPENDAGE WITH A 50MM ARTICURE CLIP VENTRICULOMYOTOMY-MYECTOMY 07/2018 septal myectomy for HCM; [facility], Dr. Jo MEDICATIONS: gabapentin (NEURONTIN) 100 [...] Daniel Mcclelland MD documented in this encounter [facility] 01-07-2022 History of Present illness Narrative This note was created using [employer]og[employer]. Subjective Michelle Sharpe is a 81 year [...] block) ekg 06/27/20 Long Q-T syndrome 01/21/2017 intermediate manager (current) use of 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 COUMADIN MR (mitral [...] heart failure with preserved ejection fraction (HFpEF) ([facility]) I50.32 potassium chloride (K-TAB) 10 mEq tablet 5. Vitamin D deficiency E55.9 VITAMIN D 25 HYDROXY 6. Chronic obstructive pulmonary disease, unspecified COPD type ([facility]) J44.9 7. Anticoagulant long-term use Z79.01 8. [...] Z95.0 Doing well. Continue following up with solid waste division supervisor. 4. Chronic heart failure with preserved ejection [...] Alisia Pacheco MD documented in this encounter [facility] documented as of this encounter (statuses as of 10/22/2023) [facility] History of Past illness Narrative* Problem [...] pain 07/30/2018 08/03/2018 Overview: A/p Controlled with MOLD BUILDER fentanyl, scheduled lidoderm patches and tyenol, prn oxycodone Stress hyperglycemia 07/30/2018 08/05/2018 Overview: Continue SS. Hypovolemia/fluctuating lacic acidosis 8 08/02/2018 Overview: A/p albumin given x1 Discharge planning issues 07/29/20182020 Overview: Discharge to SNF 08.06.2018. Lives in [facility], alone but has supportive family. PT/OT/RT recommend SNF. Appointments requested with [employer] and Cards. Preop testing 07/29/2018 08/03/2018 Overview: [...] AWARE OF ELEVATED CREATININE SIGNATURE: Bell Johnson APRN.OFFSET PRESS ASSISTANT CHECKED BY: LEE ANN DATE of SERVICE: 07/29/2018 TIME of SERVICE: 8:22 AM Encounter for preoperative a nesthesiology assessment for cardiac surgery 07/29/2018 08/29/2021 Small B-cell lymphoma of extranodal site 018 08/29/2021 Overview: Added automatically from request for surgery [id number] Bone metastasis 10/13/2017 08/29/2021 Overview: Added automatically from request for surgery [id number] Hypoxemia 05/20/2017 08/03/2018 Overview: Requiring HF O2 after extubation A/p Begin diuresis and oob to chair, wean O2 as able. 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 Hypovolemia/fluctuating lacic acidosis 8 08/02/2018 Overview: A/p albumin given x1 Discharge planning issues 07/29/20182020 Overview: Discharge to SNF 08.06.2018. Lives in [facility], alone but has supportive family. PT/OT/RT recommend SNF. Appointments requested with [employer] and Cards. Preop testing 07/29/2018 08/03/2018 Overview: [...] or exertion. Will obtain nocturnal oxygen from [employer]. 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 Hypovolemia/fluctuating lacic acidosis 8 08/02/2018 Overview: A/p albumin given x1 Discharge planning issues 07/29/20182020 Overview: Discharge to SNF 08.06.2018. Lives in [facility], alone but has supportive family. PT/OT/RT recommend SNF. Appointments requested with [employer] and Cards. Preop testing 07/29/2018 08/03/2018 Overview: [...] AWARE OF ELEVATED CREATININE SIGNATURE: Bell Johnson APRN.OFFSET PRESS ASSISTANT CHECKED BY: LEE ANN DATE of SERVICE: 07/29/2018 TIME of SERVICE: 8:22 AM Encounter for preoperative a nesthesiology assessment for cardiac surgery 07/29/2018 08/29/2021 Small B-cell lymphoma of extranodal site 018 08/29/2021 Overview: Added automatically from request for surgery [id number] Bone metastasis 10/13/2017 08/29/2021 Overview: Added automatically from request for surgery [id number] Hypoxemia 05/20/2017 08/03/2018 Overview: Requiring HF O2 after extubation A/p Begin diuresis and oob to chair, wean O2 as able. 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 Hypovolemia/fluctuating lacic acidosis 8 08/02/2018 Overview: A/p albumin given x1 Discharge planning issues 07/29/20182020 Overview: Discharge to SNF 08.06.2018. Lives in [facility], alone but has supportive family. PT/OT/RT recommend SNF. Appointments requested with [employer] and Cards. Preop testing 07/29/2018 08/03/2018 Overview: [...] or exertion. Will obtain nocturnal oxygen from [employer]. Continue rescue inhaler as needed for relief [...] AWARE OF ELEVATED CREATININE SIGNATURE: Bell Johnson APRN.OFFSET PRESS ASSISTANT CHECKED BY: LEE ANN DATE of SERVICE: 07/29/2018 TIME of SERVICE: 8:22 AM Encounter for preoperative a nesthesiology assessment for cardiac surgery 07/29/2018 08/29/2021 Small B-cell lymphoma of extranodal site 018 08/29/2021 Overview: Added automatically from request for surgery [id number] Bone metastasis 10/13/2017 08/29/2021 Overview: Added automatically from request for surgery [id number] Hypoxemia 05/20/2017 08/03/2018 Overview: Requiring HF O2 after extubation A/p Begin diuresis and oob to chair, wean O2 as able. 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 Hypovolemia/fluctuating lacic acidosis 8 08/02/2018 Overview: A/p albumin given x1 Discharge planning issues 07/29/20182020 Overview: Discharge to SNF 08.06.2018. Lives in [facility], alone but has supportive family. PT/OT/RT recommend SNF. Appointments requested with [employer] and Cards. Preop testing 07/29/2018 08/03/2018 Overview: [...] AWARE OF ELEVATED CREATININE SIGNATURE: Bell Johnson APRN.OFFSET PRESS ASSISTANT CHECKED BY: LEE ANN DATE of SERVICE: 07/29/2018 TIME of SERVICE: 8:22 AM Encounter for preoperative a nesthesiology assessment for cardiac surgery 07/29/2018 08/29/2021 Small B-cell lymphoma of extranodal site 018 08/29/2021 Overview: Added automatically from request for surgery [id number] Bone metastasis 10/13/2017 08/29/2021 Overview: Added automatically from request for surgery [id number] Hypoxemia 05/20/2017 08/03/2018 Overview: Requiring HF O2 after extubation A/p Begin diuresis and oob to chair, wean O2 as able. 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 Hypovolemia/fluctuating lacic acidosis 8 08/02/2018 Overview: A/p albumin given x1 Discharge planning issues 07/29/20182020 Overview: Discharge to SNF 08.06.2018. Lives in [facility], alone but has supportive family. PT/OT/RT recommend SNF. Appointments requested with [employer] and Cards. Preop testing 07/29/2018 08/03/2018 Overview: [...] AWARE OF ELEVATED CREATININE SIGNATURE: Bell Johnson APRN.OFFSET PRESS ASSISTANT CHECKED BY: LEE ANN DATE of SERVICE: 07/29/2018 TIME of SERVICE: 8:22 AM Encounter for preoperative a nesthesiology assessment for cardiac surgery 07/29/2018 08/29/2021 Small B-cell lymphoma of extranodal site 018 08/29/2021 Overview: Added automatically from request for surgery [id number] Bone metastasis 10/13/2017 08/29/2021 Overview: Added automatically from request for surgery [id number] Hypoxemia 05/20/2017 08/03/2018 Overview: Requiring HF O2 after extubation A/p Begin diuresis and oob to chair, wean O2 as able. 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 Hypovolemia/fluctuating lacic acidosis 8 08/02/2018 Overview: A/p albumin given x1 Discharge planning issues 07/29/20182020 Overview: Discharge to SNF 08.06.2018. Lives in [facility], alone but has supportive family. PT/OT/RT recommend SNF. Appointments requested with [employer] and Cards. Preop testing 07/29/2018 08/03/2018 Overview: [...] AWARE OF ELEVATED CREATININE SIGNATURE: Bell Johnson APRN.OFFSET PRESS ASSISTANT CHECKED BY: LEE ANN DATE of SERVICE: 07/29/2018 TIME of SERVICE: 8:22 AM Encounter for preoperative a nesthesiology assessment for cardiac surgery 07/29/2018 08/29/2021 Bone metastasis 10/13/2017 08/29/2021 Overview: Added automatically from request for surgery [id number] Hypoxemia 05/20/2017 08/03/2018 Overview: Requiring HF O2 after extubation A/p Begin diuresis and oob to chair, wean O2 as able. 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 Hypovolemia/fluctuating lacic acidosis 8 08/02/2018 Overview: A/p albumin given x1 Discharge planning issues 07/29/20182020 Overview: Discharge to SNF 08.06.2018. Lives in [facility], alone but has supportive family. PT/OT/RT recommend SNF. Appointments requested with [employer] and Cards. Preop testing 07/29/2018 08/03/2018 Overview: [...] AWARE OF ELEVATED CREATININE SIGNATURE: Bell Johnson APRN.OFFSET PRESS ASSISTANT CHECKED BY: LEE ANN DATE of SERVICE: 07/29/2018 TIME of SERVICE: 8:22 AM Encounter for preoperative a nesthesiology assessment for cardiac surgery 07/29/2018 08/29/2021 Bone metastasis 10/13/2017 08/29/2021 Overview: Added automatically from request for surgery [id number] Hypoxemia 05/20/2017 08/03/2018 Overview: Requiring HF O2 after extubation A/p Begin diuresis and oob to chair, wean O2 as able. 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 Hypovolemia/fluctuating lacic acidosis 8 08/02/2018 Overview: A/p albumin given x1 Discharge planning issues 07/29/20182020 Overview: Discharge to SNF 08.06.2018. Lives in [facility], alone but has supportive family. PT/OT/RT recommend SNF. Appointments requested with [employer] and Cards. Preop testing 07/29/2018 08/03/2018 Overview: [...] AWARE OF ELEVATED CREATININE SIGNATURE: Bell Johnson APRN.OFFSET PRESS ASSISTANT CHECKED BY: LEE ANN DATE of SERVICE: 07/29/2018 TIME of SERVICE: 8:22 AM Encounter for preoperative a nesthesiology assessment for cardiac surgery 07/29/2018 08/29/2021 Bone metastasis 10/13/2017 08/29/2021 Overview: Added automatically from request for surgery [id number] Hypoxemia 05/20/2017 08/03/2018 Overview: Requiring HF O2 after extubation A/p Begin diuresis and oob to chair, wean O2 as able. 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 Hypovolemia/fluctuating lacic acidosis 8 08/02/2018 Overview: A/p albumin given x1 Discharge planning issues 07/29/20182020 Overview: Discharge to SNF 08.06.2018. Lives in [facility], alone but has supportive family. PT/OT/RT recommend SNF. Appointments requested with [employer] and Cards. Preop testing 07/29/2018 08/03/2018 Overview: [...] AWARE OF ELEVATED CREATININE SIGNATURE: Bell Johnson APRN.OFFSET PRESS ASSISTANT CHECKED BY: LEE ANN DATE of SERVICE: 07/29/2018 TIME of SERVICE: 8:22 AM Encounter for preoperative a nesthesiology assessment for cardiac surgery 07/29/2018 08/29/2021 Bone metastasis 10/13/2017 08/29/2021 Overview: Added automatically from request for surgery [id number] Hypoxemia 05/20/2017 08/03/2018 Overview: Requiring HF O2 after extubation A/p Begin diuresis and oob to chair, wean O2 as able. 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 Hypovolemia/fluctuating lacic acidosis 8 08/02/2018 Overview: A/p albumin given x1 Discharge planning issues 07/29/20182020 Overview: Discharge to SNF 08.06.2018. Lives in [place], alone but has supportive family. PT/OT/RT recommend SNF. Appointments requested with [employer] and Cards. Preop testing 07/29/2018 08/03/2018 Overview: [...] AWARE OF ELEVATED CREATININE SIGNATURE: Bell Johnson APRN.OFFSET PRESS ASSISTANT CHECKED BY: LEE ANN DATE of SERVICE: 07/29/2018 TIME of SERVICE: 8:22 AM Encounter for preoperative a nesthesiology assessment for cardiac surgery 07/29/2018 08/29/2021 Bone metastasis 10/13/2017 08/29/2021 Overview: Added automatically from request for surgery [id number] Hypoxemia 05/20/2017 08/03/2018 Overview: Requiring HF O2 after extubation A/p Begin diuresis and oob to chair, wean O2 as able. 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 Hypovolemia/fluctuating lacic acidosis 8 08/02/2018 Overview: A/p albumin given x1 Discharge planning issues 07/29/20182020 Overview: Discharge to SNF 08.06.2018. Lives in [facility], alone but has supportive family. PT/OT/RT recommend SNF. Appointments requested with [employer] and Cards. Preop testing 07/29/2018 08/03/2018 Overview: [...] AWARE OF ELEVATED CREATININE SIGNATURE: Bell Johnson APRN.OFFSET PRESS ASSISTANT CHECKED BY: LEE ANN DATE of SERVICE: 07/29/2018 TIME of SERVICE: 8:22 AM Encounter for preoperative a nesthesiology assessment for cardiac surgery 07/29/2018 08/29/2021 Bone metastasis 10/13/2017 08/29/2021 Overview: Added automatically from request for surgery [id number] Hypoxemia 05/20/2017 08/03/2018 Overview: Requiring HF O2 after extubation A/p Begin diuresis and oob to chair, wean O2 as able. 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 Hypovolemia/fluctuating lacic acidosis 8 08/02/2018 Overview: A/p albumin given x1 Discharge planning issues 07/29/20182020 Overview: Discharge to SNF 08.06.2018. Lives in [facility], alone but has supportive family. PT/OT/RT recommend SNF. Appointments requested with [employer] and Cards. Preop testing 07/29/2018 08/03/2018 Overview: [...] or exertion. Will obtain nocturnal oxygen from [employer]. Continue rescue inhaler as needed for relief [...] AWARE OF ELEVATED CREATININE SIGNATURE: Bell Johnson APRN.OFFSET PRESS ASSISTANT CHECKED BY: LEE ANN DATE of SERVICE: 07/29/2018 TIME of SERVICE: 8:22 AM Encounter for preoperative a nesthesiology assessment for cardiac surgery 07/29/2018 08/29/2021 Bone metastasis 10/13/2017 08/29/2021 Overview: Added automatically from request for surgery [id number] Hypoxemia 05/20/2017 08/03/2018 Overview: Requiring HF O2 after extubation A/p Begin diuresis and oob to chair, wean O2 as able. 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 Hypovolemia/fluctuating lacic acidosis 8 08/02/2018 Overview: A/p albumin given x1 Discharge planning issues 07/29/20182020 Overview: Discharge to SNF 08.06.2018. Lives in [facility], alone but has supportive family. PT/OT/RT recommend SNF. Appointments requested with [employer] and Cards. Preop testing 07/29/2018 08/03/2018 Overview: [...] AWARE OF ELEVATED CREATININE SIGNATURE: Bell Johnson APRN.OFFSET PRESS ASSISTANT CHECKED BY: LEE ANN DATE of SERVICE: 07/29/2018 TIME of SERVICE: 8:22 AM Encounter for preoperative a nesthesiology assessment for cardiac surgery 07/29/2018 08/29/2021 Bone metastasis 10/13/2017 08/29/2021 Overview: Added automatically from request for surgery [id number] Hypoxemia 05/20/2017 08/03/2018 Overview: Requiring HF O2 after extubation A/p Begin diuresis and oob to chair, wean O2 as able. 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 Hypovolemia/fluctuating lacic acidosis 8 08/02/2018 Overview: A/p albumin given x1 Discharge planning issues 07/29/20182020 Overview: Discharge to SNF 08.06.2018. Lives in [facility], alone but has supportive family. PT/OT/RT recommend SNF. Appointments requested with [employer] and Cards. Preop testing 07/29/2018 08/03/2018 Overview: [...] AWARE OF ELEVATED CREATININE SIGNATURE: Bell Johnson APRN.OFFSET PRESS ASSISTANT CHECKED BY: LEE ANN DATE of SERVICE: 07/29/2018 TIME of SERVICE: 8:22 AM Encounter for preoperative a nesthesiology assessment for cardiac surgery 07/29/2018 08/29/2021 Bone metastasis 10/13/2017 08/29/2021 Overview: Added automatically from request for surgery [id number] Hypoxemia 05/20/2017 08/03/2018 Overview: Requiring HF O2 after extubation A/p Begin diuresis and oob to chair, wean O2 as able. 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 Hypovolemia/fluctuating lacic acidosis 8 08/02/2018 Overview: A/p albumin given x1 Discharge planning issues 07/29/20182020 Overview: Discharge to SNF 08.06.2018. Lives in [facility], alone but has supportive family. PT/OT/RT recommend SNF. Appointments requested with [employer] and Cards. Preop testing 07/29/2018 08/03/2018 Overview: [...] AWARE OF ELEVATED CREATININE SIGNATURE: Bell Johnson APRN.OFFSET PRESS ASSISTANT CHECKED BY: LEE ANN DATE of SERVICE: 07/29/2018 TIME of SERVICE: 8:22 AM Encounter for preoperative a nesthesiology assessment for cardiac surgery 07/29/2018 08/29/2021 Bone metastasis 10/13/2017 08/29/2021 Overview: Added automatically from request for surgery [id number] Hypoxemia 05/20/2017 08/03/2018 Overview: Requiring HF O2 after extubation A/p Begin diuresis and oob to chair, wean O2 as able. 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 Hypovolemia/fluctuating lacic acidosis 8 08/02/2018 Overview: A/p albumin given x1 Discharge planning issues 07/29/20182020 Overview: Discharge to SNF 08.06.2018. Lives in [facility], alone but has supportive family. PT/OT/RT recommend SNF. Appointments requested with [employer] and Cards. Preop testing 07/29/2018 08/03/2018 Overview: [...] AWARE OF ELEVATED CREATININE SIGNATURE: Bell Johnson APRN.OFFSET PRESS ASSISTANT CHECKED BY: LEE ANN DATE of SERVICE: 07/29/2018 TIME of SERVICE: 8:22 AM Encounter for preoperative a nesthesiology assessment for cardiac surgery 07/29/2018 08/29/2021 Bone metastasis 10/13/2017 08/29/2021 Overview: Added automatically from request for surgery [id number] Hypoxemia 05/20/2017 08/03/2018 Overview: Requiring HF O2 after extubation A/p Begin diuresis and oob to chair, wean O2 as able. 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 Hypovolemia/fluctuating lacic acidosis 8 08/02/2018 Overview: A/p albumin given x1 Discharge planning issues 07/29/20182020 Overview: Discharge to SNF 08.06.2018. Lives in [place], alone but has supportive family. PT/OT/RT recommend SNF. Appointments requested with [employer] and Cards. Preop testing 07/29/2018 08/03/2018 Overview: [...] AWARE OF ELEVATED CREATININE SIGNATURE: Bell Johnson APRN.OFFSET PRESS ASSISTANT CHECKED BY: LEE ANN DATE of SERVICE: 07/29/2018 TIME of SERVICE: 8:22 AM Encounter for preoperative a nesthesiology assessment for cardiac surgery 07/29/2018 08/29/2021 Bone metastasis 10/13/2017 08/29/2021 Overview: Added automatically from request for surgery [id number] Hypoxemia 05/20/2017 08/03/2018 Overview: Requiring HF O2 after extubation A/p Begin diuresis and oob to chair, wean O2 as able. 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 Hypovolemia/fluctuating lacic acidosis 8 08/02/2018 Overview: A/p albumin given x1 Discharge planning issues 07/29/20182020 Overview: Discharge to SNF 08.06.2018. Lives in [facility], alone but has supportive family. PT/OT/RT recommend SNF. Appointments requested with [employer] and Cards. Preop testing 07/29/2018 08/03/2018 Overview: [...] Implants: no Consults: 07/15 - Pulmonary -Aaliyah Stoen PA-C RE: COPD Continue current maintenance Rx [...] AWARE OF ELEVATED CREATININE SIGNATURE: Bell Johnson APRN.OFFSET PRESS ASSISTANT CHECKED BY: LEE ANN DATE of SERVICE: 07/29/2018 TIME of SERVICE: 8:22 AM Encounter for preoperative a nesthesiology assessment for cardiac surgery 07/29/2018 08/29/2021 Bone metastasis 10/13/2017 08/29/2021 Overview: Added automatically from request for surgery [id number] Hypoxemia 05/20/2017 08/03/2018 Overview: Requiring HF O2 after extubation A/p Begin diuresis and oob to chair, wean O2 as able. 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 Hypovolemia/fluctuating lacic acidosis 8 08/02/2018 Overview: A/p albumin given x1 Discharge planning issues 07/29/20182020 Overview: Discharge to SNF 08.06.2018. Lives in [facility], alone but has supportive family. PT/OT/RT recommend SNF. Appointments requested with [employer] and Cards. Preop testing 07/29/2018 08/03/2018 Overview: [...] or exertion. Will obtain nocturnal oxygen from [employer]. Continue rescue inhaler as needed for relief [...] AWARE OF ELEVATED CREATININE SIGNATURE: Bell Johnson APRN.OFFSET PRESS ASSISTANT CHECKED BY: LEE ANN DATE of SERVICE: 07/29/2018 TIME of SERVICE: 8:22 AM Encounter for preoperative a nesthesiology assessment for cardiac surgery 07/29/2018 08/29/2021 Bone metastasis 10/13/2017 08/29/2021 Overview: Added automatically from request for surgery [id number] Hypoxemia 05/20/2017 08/03/2018 Overview: Requiring HF O2 after extubation A/p Begin diuresis and oob to chair, wean O2 as able. 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 Hypovolemia/fluctuating lacic acidosis 8 08/02/2018 Overview: A/p albumin given x1 Discharge planning issues 07/29/20182020 Overview: Discharge to SNF 08.06.2018. Lives in [facility], alone but has supportive family. PT/OT/RT recommend SNF. Appointments requested with [employer] and Cards. Preop testing 07/29/2018 08/03/2018 Overview: [...] AWARE OF ELEVATED CREATININE SIGNATURE: Bell Johnson APRN.OFFSET PRESS ASSISTANT CHECKED BY: LEE ANN DATE of SERVICE: 07/29/2018 TIME of SERVICE: 8:22 AM Encounter for preoperative a nesthesiology assessment for cardiac surgery 07/29/2018 08/29/2021 Bone metastasis 10/13/2017 08/29/2021 Overview: Added automatically from request for surgery [id number] Hypoxemia 05/20/2017 08/03/2018 Overview: Requiring HF O2 after extubation A/p Begin diuresis and oob to chair, wean O2 as able. 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 Hypovolemia/fluctuating lacic acidosis 8 08/02/2018 Overview: A/p albumin given x1 Discharge planning issues 07/29/20182020 Overview: Discharge to SNF 08.06.2018. Lives in [facility], alone but has supportive family. PT/OT/RT recommend SNF. Appointments requested with [employer] and Cards. Preop testing 07/29/2018 08/03/2018 Overview: [...] AWARE OF ELEVATED CREATININE SIGNATURE: Bell Johnson APRN.OFFSET PRESS ASSISTANT CHECKED BY: LEE ANN DATE of SERVICE: 07/29/2018 TIME of SERVICE: 8:22 AM Encounter for preoperative a nesthesiology assessment for cardiac surgery 07/29/2018 08/29/2021 Bone metastasis 10/13/2017 08/29/2021 Overview: Added automatically from request for surgery [id number] Hypoxemia 05/20/2017 08/03/2018 Overview: Requiring HF O2 after extubation A/p Begin diuresis and oob to chair, wean O2 as able. 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 Hypovolemia/fluctuating lacic acidosis 8 08/02/2018 Overview: A/p albumin given x1 Discharge planning issues 07/29/20182020 Overview: Discharge to SNF 08.06.2018. Lives in [facility], alone but has supportive family. PT/OT/RT recommend SNF. Appointments requested with [employer] and Cards. Preop testing 07/29/2018 08/03/2018 Overview: [...] or exertion. Will obtain nocturnal oxygen from [employer]. Continue rescue inhaler as needed for relief [...] AWARE OF ELEVATED CREATININE SIGNATURE: Bell Johnson APRN.OFFSET PRESS ASSISTANT CHECKED BY: LEE ANN DATE of SERVICE: 07/29/2018 TIME of SERVICE: 8:22 AM Encounter for preoperative a nesthesiology assessment for cardiac surgery 07/29/2018 08/29/2021 Bone metastasis 10/13/2017 08/29/2021 Overview: Added automatically from request for surgery [id number] Hypoxemia 05/20/2017 08/03/2018 Overview: Requiring HF O2 after extubation A/p Begin diuresis and oob to chair, wean O2 as able. 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 Hypovolemia/fluctuating lacic acidosis 8 08/02/2018 Overview: A/p albumin given x1 Discharge planning issues 07/29/20182020 Overview: Discharge to SNF 08.06.2018. Lives in [facility], alone but has supportive family. PT/OT/RT recommend SNF. Appointments requested with [employer] and Cards. Preop testing 07/29/2018 08/03/2018 Overview: [...] AWARE OF ELEVATED CREATININE SIGNATURE: Bell Johnson APRN.OFFSET PRESS ASSISTANT CHECKED BY: LEE ANN DATE of SERVICE: 07/29/2018 TIME of SERVICE: 8:22 AM Encounter for preoperative a nesthesiology assessment for cardiac surgery 07/29/2018 08/29/2021 Bone metastasis 10/13/2017 08/29/2021 Overview: Added automatically from request for surgery [id number] Hypoxemia 05/20/2017 08/03/2018 Overview: Requiring HF O2 after extubation A/p Begin diuresis and oob to chair, wean O2 as able. 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 Hypovolemia/fluctuating lacic acidosis 8 08/02/2018 Overview: A/p albumin given x1 Discharge planning issues 07/29/20182020 Overview: Discharge to SNF 08.06.2018. Lives in [place], alone but has supportive family. PT/OT/RT recommend SNF. Appointments requested with [employer] and Cards. Preop testing 07/29/2018 08/03/2018 Overview: [...] AWARE OF ELEVATED CREATININE SIGNATURE: Bell Johnson APRN.OFFSET PRESS ASSISTANT CHECKED BY: LEE ANN DATE of SERVICE: 07/29/2018 TIME of SERVICE: 8:22 AM Encounter for preoperative a nesthesiology assessment for cardiac surgery 07/29/2018 08/29/2021 Bone metastasis 10/13/2017 08/29/2021 Overview: Added automatically from request for surgery [id number] Hypoxemia 05/20/2017 08/03/2018 Overview: Requiring HF O2 after extubation A/p Begin diuresis and oob to chair, wean O2 as able. 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 Hypovolemia/fluctuating lacic acidosis 8 08/02/2018 Overview: A/p albumin given x1 Discharge planning issues 07/29/20182020 Overview: Discharge to SNF 08.06.2018. Lives in [facility], alone but has supportive family. PT/OT/RT recommend SNF. Appointments requested with [employer] and Cards. Preop testing 07/29/2018 08/03/2018 Overview: [...] AWARE OF ELEVATED CREATININE SIGNATURE: Bell Johnson APRN.OFFSET PRESS ASSISTANT CHECKED BY: LEE ANN DATE of SERVICE: 07/29/2018 TIME of SERVICE: 8:22 AM Encounter for preoperative a nesthesiology assessment for cardiac surgery 07/29/2018 08/29/2021 Bone metastasis 10/13/2017 08/29/2021 Overview: Added automatically from request for surgery [id number] Hypoxemia 05/20/2017 08/03/2018 Overview: Requiring HF O2 after extubation A/p Begin diuresis and oob to chair, wean O2 as able. 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 Hypovolemia/fluctuating lacic acidosis 8 08/02/2018 Overview: A/p albumin given x1 Discharge planning issues 07/29/20182020 Overview: Discharge to SNF 08.06.2018. Lives in [facility], alone but has supportive family. PT/OT/RT recommend SNF. Appointments requested with [employer] and Cards. Preop testing 07/29/2018 08/03/2018 Overview: [...] or exertion. Will obtain nocturnal oxygen from [employer]. Continue rescue inhaler as needed for relief [...] AWARE OF ELEVATED CREATININE SIGNATURE: Bell Johnson APRN.OFFSET PRESS ASSISTANT CHECKED BY: LEE ANN DATE of SERVICE: 07/29/2018 TIME of SERVICE: 8:22 AM Encounter for preoperative a nesthesiology assessment for cardiac surgery 07/29/2018 08/29/2021 Bone metastasis 10/13/2017 08/29/2021 Overview: Added automatically from request for surgery [id number] Hypoxemia 05/20/2017 08/03/2018 Overview: Requiring HF O2 after extubation A/p Begin diuresis and oob to chair, wean O2 as able. 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 Hypovolemia/fluctuating lacic acidosis 8 08/02/2018 Overview: A/p albumin given x1 Discharge planning issues 07/29/20182020 Overview: Discharge to SNF 08.06.2018. Lives in [facility], alone but has supportive family. PT/OT/RT recommend SNF. Appointments requested with [employer] and Cards. Preop testing 07/29/2018 08/03/2018 Overview: [...] AWARE OF ELEVATED CREATININE SIGNATURE: Bell Johnson APRN.OFFSET PRESS ASSISTANT CHECKED BY: LEE ANN DATE of SERVICE: 07/29/2018 TIME of SERVICE: 8:22 AM Encounter for preoperative a nesthesiology assessment for cardiac surgery 07/29/2018 08/29/2021 Bone metastasis 10/13/2017 08/29/2021 Overview: Added automatically from request for surgery [id number] Hypoxemia 05/20/2017 08/03/2018 Overview: Requiring HF O2 after extubation A/p Begin diuresis and oob to chair, wean O2 as able. 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 Hypovolemia/fluctuating lacic acidosis 8 08/02/2018 Overview: A/p albumin given x1 Discharge planning issues 07/29/20182020 Overview: Discharge to SNF 08.06.2018. Lives in [facility], alone but has supportive family. PT/OT/RT recommend SNF. Appointments requested with [employer] and Cards. Preop testing 07/29/2018 08/03/2018 Overview: [...] or exertion. Will obtain nocturnal oxygen from [employer] Diagnostics. Continue rescue inhaler as needed for relief [...] AWARE OF ELEVATED CREATININE SIGNATURE: Bell Johnson APRN.OFFSET PRESS ASSISTANT CHECKED BY: LEE ANN DATE of SERVICE: 07/29/2018 TIME of SERVICE: 8:22 AM Encounter for preoperative a nesthesiology assessment for cardiac surgery 07/29/2018 08/29/2021 Bone metastasis 10/13/2017 08/29/2021 Overview: Added automatically from request for surgery [id number] Hypoxemia 05/20/2017 08/03/2018 Overview: Requiring HF O2 after extubation A/p Begin diuresis and oob to chair, wean O2 as able. 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 Hypovolemia/fluctuating lacic acidosis 8 08/02/2018 Overview: A/p albumin given x1 Discharge planning issues 07/29/20182020 Overview: Discharge to SNF 08.06.2018. Lives in [facility], alone but has supportive family. PT/OT/RT recommend SNF. Appointments requested with [employer] and Cards. Preop testing 07/29/2018 08/03/2018 Overview: [...] or exertion. Will obtain nocturnal oxygen from [employer]. Continue rescue inhaler as needed for relief [...] AWARE OF ELEVATED CREATININE SIGNATURE: Bell Johnson APRN.OFFSET PRESS ASSISTANT CHECKED BY: LEE ANN DATE of SERVICE: 07/29/2018 TIME of SERVICE: 8:22 AM Encounter for preoperative a nesthesiology assessment for cardiac surgery 07/29/2018 08/29/2021 Bone metastasis 10/13/2017 08/29/2021 Overview: Added automatically from request for surgery [id number] Hypoxemia 05/20/2017 08/03/2018 Overview: Requiring HF O2 after extubation A/p Begin diuresis and oob to chair, wean O2 as able. 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 Hypovolemia/fluctuating lacic acidosis 8 08/02/2018 Overview: A/p albumin given x1 Discharge planning issues 07/29/20182020 Overview: Discharge to SNF 08.06.2018. Lives in [facility], alone but has supportive family. PT/OT/RT recommend SNF. Appointments requested with [employer] and Cards. Preop testing 07/29/2018 08/03/2018 Overview: [...] AWARE OF ELEVATED CREATININE SIGNATURE: Bell Johnson APRN.OFFSET PRESS ASSISTANT CHECKED BY: LEE ANN DATE of SERVICE: 07/29/2018 TIME of SERVICE: 8:22 AM Encounter for preoperative a nesthesiology assessment for cardiac surgery 07/29/2018 08/29/2021 Bone metastasis 10/13/2017 08/29/2021 Overview: Added automatically from request for surgery [id number] Hypoxemia 05/20/2017 08/03/2018 Overview: Requiring HF O2 after extubation A/p Begin diuresis and oob to chair, wean O2 as able. 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 Hypovolemia/fluctuating lacic acidosis 8 08/02/2018 Overview: A/p albumin given x1 Discharge planning issues 07/29/20182020 Overview: Discharge to SNF 08.06.2018. Lives in [facility], alone but has supportive family. PT/OT/RT recommend SNF. Appointments requested with [employer] and Cards. Preop testing 07/29/2018 08/03/2018 Overview: [...] AWARE OF ELEVATED CREATININE SIGNATURE: Bell Johnson APRN.OFFSET PRESS ASSISTANT CHECKED BY: LEE ANN DATE of SERVICE: 07/29/2018 TIME of SERVICE: 8:22 AM Encounter for preoperative a nesthesiology assessment for cardiac surgery 07/29/2018 08/29/2021 Bone metastasis 10/13/2017 08/29/2021 Overview: Added automatically from request for surgery [id number] Hypoxemia 05/20/2017 08/03/2018 Overview: Requiring HF O2 after extubation A/p Begin diuresis and oob to chair, wean O2 as able. 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 Hypovolemia/fluctuating lacic acidosis 8 08/02/2018 Overview: A/p albumin given x1 Discharge planning issues 07/29/20182020 Overview: Discharge to SNF 08.06.2018. Lives in [facility], alone but has supportive family. PT/OT/RT recommend SNF. Appointments requested with [employer] and Cards. Preop testing 07/29/2018 08/03/2018 Overview: [...] AWARE OF ELEVATED CREATININE SIGNATURE: Bell Johnson APRN.OFFSET PRESS ASSISTANT CHECKED BY: LEE ANN DATE of SERVICE: 07/29/2018 TIME of SERVICE: 8:22 AM Encounter for preoperative a nesthesiology assessment for cardiac surgery 07/29/2018 08/29/2021 Bone metastasis 10/13/2017 08/29/2021 Overview: Added automatically from request for surgery [id number] Hypoxemia 05/20/2017 08/03/2018 Overview: Requiring HF O2 after extubation A/p Begin diuresis and oob to chair, wean O2 as able. 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 Hypovolemia/fluctuating lacic acidosis 8 08/02/2018 Overview: A/p albumin given x1 Discharge planning issues 07/29/20182020 Overview: Discharge to SNF 08.06.2018. Lives in [facility], alone but has supportive family. PT/OT/RT recommend SNF. Appointments requested with [employer] and Cards. Preop testing 07/29/2018 08/03/2018 Overview: [...] or exertion. Will obtain nocturnal oxygen from [employer]. Continue rescue inhaler as needed for relief [...] AWARE OF ELEVATED CREATININE SIGNATURE: Bell Johnson APRN.OFFSET PRESS ASSISTANT CHECKED BY: LEE ANN DATE of SERVICE: 07/29/2018 TIME of SERVICE: 8:22 AM Encounter for preoperative a nesthesiology assessment for cardiac surgery 07/29/2018 08/29/2021 Bone metastasis 10/13/2017 08/29/2021 Overview: Added automatically from request for surgery [id number] Hypoxemia 05/20/2017 08/03/2018 Overview: Requiring HF O2 after extubation A/p Begin diuresis and oob to chair, wean O2 as able. 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 Hypovolemia/fluctuating lacic acidosis 8 08/02/2018 Overview: A/p albumin given x1 Discharge planning issues 07/29/20182020 Overview: Discharge to SNF 08.06.2018. Lives in [facility], alone but has supportive family. PT/OT/RT recommend SNF. Appointments requested with [employer] and Cards. Preop testing 07/29/2018 08/03/2018 Overview: [...] AWARE OF ELEVATED CREATININE SIGNATURE: Bell Johnson APRN.OFFSET PRESS ASSISTANT CHECKED BY: LEE ANN DATE of SERVICE: 07/29/2018 TIME of SERVICE: 8:22 AM Encounter for preoperative a nesthesiology assessment for cardiac surgery 07/29/2018 08/29/2021 Bone metastasis 10/13/2017 08/29/2021 Overview: Added automatically from request for surgery [id number] Hypoxemia 05/20/2017 08/03/2018 Overview: Requiring HF O2 after extubation A/p Begin diuresis and oob to chair, wean O2 as able. 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 Begin diuresis and monitor closely RAHDA (acute kidney injury) 08/01/20182017 Overview: History: Post-operative. Assessment: BUN/Cr normalizing Plan: Avoid hypotension. Renally dose medications Cardiac insufficiency 07/30/2018 07/31/2018 Overview: A/p Cardiac insuffiencey requiring epi, titrate for UO & monitor CVP On mechanically assisted ventilation 07/30/2018 07/31/2018 Overview: Grade 1 Airway A/p WTE Postoperative pain 07/30/2018 08/03/2018 Overview: A/p Controlled with [employer] fentanyl, scheduled lidoderm patches and tyenol, prn oxycodone Stress hyperglycemia 07/30/2018 08/05/2018 Overview: Continue SS. Hypovolemia/fluctuating lacic acidosis 8 08/02/2018 Overview: A/p albumin given x1 Discharge planning issues 07/29/20182020 Overview: Discharge to SNF 08.06.2018. Lives in [facility], alone but has supportive family. PT/OT/RT recommend SNF. Appointments requested with [employer] and Cards. Preop testing 07/29/2018 08/03/2018 Overview: [...] AWARE OF ELEVATED CREATININE SIGNATURE: Bell Johnson APRN.OFFSET PRESS ASSISTANT CHECKED BY: LEE ANN DATE of SERVICE: 07/29/2018 TIME of SERVICE: 8:22 AM Encounter for preoperative a nesthesiology assessment for cardiac surgery 07/29/2018 08/29/2021 Bone metastasis 10/13/2017 08/29/2021 Overview: Added automatically from request for surgery [id number] Hypoxemia 05/20/2017 08/03/2018 Overview: Requiring HF O2 after extubation A/p Begin diuresis and oob to chair, wean O2 as able. 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 Hypovolemia/fluctuating lacic acidosis 8 08/02/2018 Overview: A/p albumin given x1 Discharge planning issues 07/29/20182020 Overview: Discharge to SNF 08.06.2018. Lives in [facility], alone but has supportive family. PT/OT/RT recommend SNF. Appointments requested with [employer] and Cards. Preop testing 07/29/2018 08/03/2018 Overview: [...] or exertion. Will obtain nocturnal oxygen from [employer]. Continue rescue inhaler as needed for relief [...] AWARE OF ELEVATED CREATININE SIGNATURE: Bell Johnson APRN.OFFSET PRESS ASSISTANT CHECKED BY: LEE ANN DATE of SERVICE: 07/29/2018 TIME of SERVICE: 8:22 AM Encounter for preoperative a nesthesiology assessment for cardiac surgery 07/29/2018 08/29/2021 Bone metastasis 10/13/2017 08/29/2021 Overview: Added automatically from request for surgery [id number] Hypoxemia 05/20/2017 08/03/2018 Overview: Requiring HF O2 after extubation A/p Begin diuresis and oob to chair, wean O2 as able. 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 Hypovolemia/fluctuating lacic acidosis 8 08/02/2018 Overview: A/p albumin given x1 Discharge planning issues 07/29/20182020 Overview: Discharge to SNF 08.06.2018. Lives in [facility], alone but has supportive family. PT/OT/RT recommend SNF. Appointments requested with [employer] and Cards. Preop testing 07/29/2018 08/03/2018 Overview: [...] AWARE OF ELEVATED CREATININE SIGNATURE: Bell Johnson APRN.OFFSET PRESS ASSISTANT CHECKED BY: LEE ANN DATE of SERVICE: 07/29/2018 TIME of SERVICE: 8:22 AM Encounter for preoperative a nesthesiology assessment for cardiac surgery 07/29/2018 08/29/2021 Bone metastasis 10/13/2017 08/29/2021 Overview: Added automatically from request for surgery [id number] Hypoxemia 05/20/2017 08/03/2018 Overview: Requiring HF O2 after extubation A/p Begin diuresis and oob to chair, wean O2 as able. 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 Hypovolemia/fluctuating lacic acidosis 8 08/02/2018 Overview: A/p albumin given x1 Discharge planning issues 07/29/20182020 Overview: Discharge to SNF 08.06.2018. Lives in [facility], alone but has supportive family. PT/OT/RT recommend SNF. Appointments requested with [employer] and Cards. Preop testing 07/29/2018 08/03/2018 Overview: [...] AWARE OF ELEVATED CREATININE SIGNATURE: Bell Johnson APRN.OFFSET PRESS ASSISTANT CHECKED BY: LEE ANN DATE of SERVICE: 07/29/2018 TIME of SERVICE: 8:22 AM Encounter for preoperative a nesthesiology assessment for cardiac surgery 07/29/2018 08/29/2021 Bone metastasis 10/13/2017 08/29/2021 Overview: Added automatically from request for surgery [id number] Hypoxemia 05/20/2017 08/03/2018 Overview: Requiring HF O2 after extubation A/p Begin diuresis and oob to chair, wean O2 as able. 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 Hypovolemia/fluctuating lacic acidosis 8 08/02/2018 Overview: A/p albumin given x1 Discharge planning issues 07/29/20182020 Overview: Discharge to SNF 08.06.2018. Lives in [facility], alone but has supportive family. PT/OT/RT recommend SNF. Appointments requested with [employer] and Cards. Preop testing 07/29/2018 08/03/2018 Overview: [...] AWARE OF ELEVATED CREATININE SIGNATURE: Bell Johnson APRN.OFFSET PRESS ASSISTANT CHECKED BY: LEE ANN DATE of SERVICE: 07/29/2018 TIME of SERVICE: 8:22 AM Encounter for preoperative a nesthesiology assessment for cardiac surgery 07/29/2018 08/29/2021 Bone metastasis 10/13/2017 08/29/2021 Overview: Added automatically from request for surgery [id number] Hypoxemia 05/20/2017 08/03/2018 Overview: Requiring HF O2 after extubation A/p Begin diuresis and oob to chair, wean O2 as able. 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 Hypovolemia/fluctuating lacic acidosis 8 08/02/2018 Overview: A/p albumin given x1 Discharge planning issues 07/29/20182020 Overview: Discharge to SNF 08.06.2018. Lives in [facility], alone but has supportive family. PT/OT/RT recommend SNF. Appointments requested with [employer] and Cards. Preop testing 07/29/2018 08/03/2018 Overview: [...] or exertion. Will obtain nocturnal oxygen from [employer]. Continue rescue inhaler as needed for relief [...] AWARE OF ELEVATED CREATININE SIGNATURE: Bell Johnson APRN.OFFSET PRESS ASSISTANT CHECKED BY: LEE ANN DATE of SERVICE: 07/29/2018 TIME of SERVICE: 8:22 AM Encounter for preoperative a nesthesiology assessment for cardiac surgery 07/29/2018 08/29/2021 Bone metastasis 10/13/2017 08/29/2021 Overview: Added automatically from request for surgery [id number] Hypoxemia 05/20/2017 08/03/2018 Overview: Requiring HF O2 after extubation A/p Begin diuresis and oob to chair, wean O2 as able. 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 Hypovolemia/fluctuating lacic acidosis 8 08/02/2018 Overview: A/p albumin given x1 Discharge planning issues 07/29/20182020 Overview: Discharge to SNF 08.06.2018. Lives in [facility], alone but has supportive family. PT/OT/RT recommend SNF. Appointments requested with [employer] and Cards. Preop testing 07/29/2018 08/03/2018 Overview: [...] AWARE OF ELEVATED CREATININE SIGNATURE: Bell Johnson APRN.OFFSET PRESS ASSISTANT CHECKED BY: LEE ANN DATE of SERVICE: 07/29/2018 TIME of SERVICE: 8:22 AM Encounter for preoperative a nesthesiology assessment for cardiac surgery 07/29/2018 08/29/2021 Bone metastasis 10/13/2017 08/29/2021 Overview: Added automatically from request for surgery [id number] Hypoxemia 05/20/2017 08/03/2018 Overview: Requiring HF O2 after extubation A/p Begin diuresis and oob to chair, wean O2 as able. 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 Hypovolemia/fluctuating lacic acidosis 8 08/02/2018 Overview: A/p albumin given x1 Discharge planning issues 07/29/20182020 Overview: Discharge to SNF 08.06.2018. Lives in [facility], alone but has supportive family. PT/OT/RT recommend SNF. Appointments requested with [employer] and Cards. Preop testing 07/29/2018 08/03/2018 Overview: [...] AWARE OF ELEVATED CREATININE SIGNATURE: Bell Johnson APRN.OFFSET PRESS ASSISTANT CHECKED BY: LEE ANN DATE of SERVICE: 07/29/2018 TIME of SERVICE: 8:22 AM Encounter for preoperative a nesthesiology assessment for cardiac surgery 07/29/2018 08/29/2021 Bone metastasis 10/13/2017 08/29/2021 Overview: Added automatically from request for surgery [id number] Hypoxemia 05/20/2017 08/03/2018 Overview: Requiring HF O2 after extubation A/p Begin diuresis and oob to chair, wean O2 as able. 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 Hypovolemia/fluctuating lacic acidosis 8 08/02/2018 Overview: A/p albumin given x1 Discharge planning issues 07/29/20182020 Overview: Discharge to SNF 08.06.2018. Lives in [facility], alone but has supportive family. PT/OT/RT recommend SNF. Appointments requested with [employer] and Cards. Preop testing 07/29/2018 08/03/2018 Overview: [...] AWARE OF ELEVATED CREATININE SIGNATURE: Bell Johnson APRN.OFFSET PRESS ASSISTANT CHECKED BY: LEE ANN DATE of SERVICE: 07/29/2018 TIME of SERVICE: 8:22 AM Encounter for preoperative a nesthesiology assessment for cardiac surgery 07/29/2018 08/29/2021 Bone metastasis 10/13/2017 08/29/2021 Overview: Added automatically from request for surgery [id number] Hypoxemia 05/20/2017 08/03/2018 Overview: Requiring HF O2 after extubation A/p Begin diuresis and oob to chair, wean O2 as able. 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 Hypovolemia/fluctuating lacic acidosis 8 08/02/2018 Overview: A/p albumin given x1 Discharge planning issues 07/29/20182020 Overview: Discharge to SNF 08.06.2018. Lives in [facility], alone but has supportive family. PT/OT/RT recommend SNF. Appointments requested with [employer] and Cards. Preop testing 07/29/2018 08/03/2018 Overview: [...] AWARE OF ELEVATED CREATININE SIGNATURE: Bell Johnson APRN.OFFSET PRESS ASSISTANT CHECKED BY: LEE ANN DATE of SERVICE: 07/29/2018 TIME of SERVICE: 8:22 AM Encounter for preoperative a nesthesiology assessment for cardiac surgery 07/29/2018 08/29/2021 Bone metastasis 10/13/2017 08/29/2021 Overview: Added automatically from request for surgery [id number] Hypoxemia 05/20/2017 08/03/2018 Overview: Requiring HF O2 after extubation A/p Begin diuresis and oob to chair, wean O2 as able. 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 Hypovolemia/fluctuating lacic acidosis 8 08/02/2018 Overview: A/p albumin given x1 Discharge planning issues 07/29/20182020 Overview: Discharge to SNF 08.06.2018. Lives in [facility], alone but has supportive family. PT/OT/RT recommend SNF. Appointments requested with [employer] and Cards. Preop testing 07/29/2018 08/03/2018 Overview: [...] AWARE OF ELEVATED CREATININE SIGNATURE: Bell Johnson APRN.OFFSET PRESS ASSISTANT CHECKED BY: LEE ANN DATE of SERVICE: 07/29/2018 TIME of SERVICE: 8:22 AM Encounter for preoperative a nesthesiology assessment for cardiac surgery 07/29/2018 08/29/2021 Bone metastasis 10/13/2017 08/29/2021 Overview: Added automatically from request for surgery [id number] Hypoxemia 05/20/2017 08/03/2018 Overview: Requiring HF O2 after extubation A/p Begin diuresis and oob to chair, wean O2 as able. 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 Hypovolemia/fluctuating lacic acidosis 8 08/02/2018 Overview: A/p albumin given x1 Discharge planning issues 07/29/20182020 Overview: Discharge to SNF 08.06.2018. Lives in [facility], alone but has supportive family. PT/OT/RT recommend SNF. Appointments requested with [employer] and Cards. Preop testing 07/29/2018 08/03/2018 Overview: [...] AWARE OF ELEVATED CREATININE SIGNATURE: Bell Johnson APRN.OFFSET PRESS ASSISTANT CHECKED BY: LEE ANN DATE of SERVICE: 07/29/2018 TIME of SERVICE: 8:22 AM Encounter for preoperative a nesthesiology assessment for cardiac surgery 07/29/2018 08/29/2021 Bone metastasis 10/13/2017 08/29/2021 Overview: Added automatically from request for surgery [id number] Hypoxemia 05/20/2017 08/03/2018 Overview: Requiring HF O2 after extubation A/p Begin diuresis and oob to chair, wean O2 as able. 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 Hypovolemia/fluctuating lacic acidosis 8 08/02/2018 Overview: A/p albumin given x1 Discharge planning issues 07/29/20182020 Overview: Discharge to SNF 08.06.2018. Lives in [facility], alone but has supportive family. PT/OT/RT recommend SNF. Appointments requested with [employer] and Cards. Preop testing 07/29/2018 08/03/2018 Overview: [...] or exertion. Will obtain nocturnal oxygen from [employer]. Continue rescue inhaler as needed for relief [...] AWARE OF ELEVATED CREATININE SIGNATURE: Bell Johnson APRN.OFFSET PRESS ASSISTANT CHECKED BY: LEE ANN DATE of SERVICE: 07/29/2018 TIME of SERVICE: 8:22 AM Encounter for preoperative a nesthesiology assessment for cardiac surgery 07/29/2018 08/29/2021 Bone metastasis 10/13/2017 08/29/2021 Overview: Added automatically from request for surgery [id number] Hypoxemia 05/20/2017 08/03/2018 Overview: Requiring HF O2 after extubation A/p Begin diuresis and oob to chair, wean O2 as able. 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 Hypovolemia/fluctuating lacic acidosis 8 08/02/2018 Overview: A/p albumin given x1 Discharge planning issues 07/29/20182020 Overview: Discharge to SNF 08.06.2018. Lives in [facility], alone but has supportive family. PT/OT/RT recommend SNF. Appointments requested with [employer] and Cards. Preop testing 07/29/2018 08/03/2018 Overview: [...] AWARE OF ELEVATED CREATININE SIGNATURE: Bell Johnson APRN.OFFSET PRESS ASSISTANT CHECKED BY: LEE ANN DATE of SERVICE: 07/29/2018 TIME of SERVICE: 8:22 AM Encounter for preoperative a nesthesiology assessment for cardiac surgery 07/29/2018 08/29/2021 Bone metastasis 10/13/2017 08/29/2021 Overview: Added automatically from request for surgery [id number] Hypoxemia 05/20/2017 08/03/2018 Overview: Requiring HF O2 after extubation A/p Begin diuresis and oob to chair, wean O2 as able. 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 Hypovolemia/fluctuating lacic acidosis 8 08/02/2018 Overview: A/p albumin given x1 Discharge planning issues 07/29/20182020 Overview: Discharge to SNF 08.06.2018. Lives in [facility], alone but has supportive family. PT/OT/RT recommend SNF. Appointments requested with [employer] and Cards. Preop testing 07/29/2018 08/03/2018 Overview: [...] or exertion. Will obtain nocturnal oxygen from [employer]. Continue rescue inhaler as needed for relief [...] AWARE OF ELEVATED CREATININE SIGNATURE: Bell Johnson APRN.OFFSET PRESS ASSISTANT CHECKED BY: LEE ANN DATE of SERVICE: 07/29/2018 TIME of SERVICE: 8:22 AM Encounter for preoperative a nesthesiology assessment for cardiac surgery 07/29/2018 08/29/2021 Bone metastasis 10/13/2017 08/29/2021 Overview: Added automatically from request for surgery [id number] Hypoxemia 05/20/2017 08/03/2018 Overview: Requiring HF O2 after extubation A/p Begin diuresis and oob to chair, wean O2 as able. 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 Hypovolemia/fluctuating lacic acidosis 07/30/2018 08/02/2018 Overview: A/p albumin given x1 Discharge planning issues 07/29/2018 Overview: Discharge to SNF 08.06.2018. Lives in [facility], alone but has supportive family. PT/OT/RT recommend SNF. Appointments requested with [employer] and Cards. Preop testing 07/29/2018 08/03/2018 Overview: [...] or exertion. Will obtain nocturnal oxygen from [employer]. Continue rescue inhaler as needed for relief [...] AWARE OF ELEVATED CREATININE SIGNATURE: Bell Johnson APRN.OFFSET PRESS ASSISTANT CHECKED BY: LEE ANN DATE of SERVICE: 07/29/2018 TIME of SERVICE: 8:22 AM Encounter for preoperative a nesthesiology assessment for cardiac surgery 07/29/2018 Bone metastasis 10/13/2017 08/29/2021 Overview: Added automatically from request for surgery [id number] Hypoxemia 05/20/2017 08/03/2018 Overview: Requiring HF O2 after extubation A/p Begin diuresis and oob to chair, wean O2 as able. 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 Hypovolemia/fluctuating lacic acidosis 07/30/2018 08/02/2018 Overview: A/p albumin given x1 Discharge planning issues 07/29/2018 Overview: Discharge to SNF 08.06.2018. Lives in [facility], alone but has supportive family. PT/OT/RT recommend SNF. Appointments requested with [employer] and Cards. Preop testing 07/29/2018 08/03/2018 Overview: [...] AWARE OF ELEVATED CREATININE SIGNATURE: Bell Johnson APRN.OFFSET PRESS ASSISTANT CHECKED BY: LEE ANN DATE of SERVICE: 07/29/2018 TIME of SERVICE: 8:22 AM Encounter for preoperative a nesthesiology assessment for cardiac surgery 07/29/2018 Bone metastasis 10/13/2017 08/29/2021 Overview: Added automatically from request for surgery [id number] Hypoxemia 05/20/2017 08/03/2018 Overview: Requiring HF O2 after extubation A/p Begin diuresis and oob to chair, wean O2 as able. 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 Hypovolemia/fluctuating lacic acidosis 07/30/2018 08/02/2018 Overview: A/p albumin given x1 Discharge planning issues 07/29/2018 Overview: Discharge to SNF 08.06.2018. Lives in [place], alone but has supportive family. PT/OT/RT recommend SNF. Appointments requested with [employer] and Cards. Preop testing 07/29/2018 08/03/2018 Overview: [...] AWARE OF ELEVATED CREATININE SIGNATURE: Bell Johnson APRN.OFFSET PRESS ASSISTANT CHECKED BY: LEE ANN DATE of SERVICE: 07/29/2018 TIME of SERVICE: 8:22 AM Encounter for preoperative a nesthesiology assessment for cardiac surgery 07/29/2018 Bone metastasis 10/13/2017 08/29/2021 Overview: Added automatically from request for surgery [id number] Hypoxemia 05/20/2017 08/03/2018 Overview: Requiring HF O2 after extubation A/p Begin diuresis and oob to chair, wean O2 as able. 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 Hypovolemia/fluctuating lacic acidosis 07/30/2018 08/02/2018 Overview: A/p albumin given x1 Discharge planning issues 07/29/2018 Overview: Discharge to SNF 08.06.2018. Lives in [facility], alone but has supportive family. PT/OT/RT recommend SNF. Appointments requested with [employer] and Cards. Preop testing 07/29/2018 08/03/2018 Overview: [...] AWARE OF ELEVATED CREATININE SIGNATURE: Bell Johnson APRN.OFFSET PRESS ASSISTANT CHECKED BY: LEE ANN DATE of SERVICE: 07/29/2018 TIME of SERVICE: 8:22 AM Encounter for preoperative a nesthesiology assessment for cardiac surgery 07/29/2018 Bone metastasis 10/13/2017 08/29/2021 Overview: Added automatically from request for surgery [id number] Hypoxemia 05/20/2017 08/03/2018 Overview: Requiring HF O2 after extubation A/p Begin diuresis and oob to chair, wean O2 as able. 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 Hypovolemia/fluctuating lacic acidosis 07/30/2018 08/02/2018 Overview: A/p albumin given x1 Discharge planning issues 07/29/2018 Overview: Discharge to SNF 08.06.2018. Lives in [facility], alone but has supportive family. PT/OT/RT recommend SNF. Appointments requested with [employer] and Cards. Preop testing 07/29/2018 08/03/2018 Overview: [...] or exertion. Will obtain nocturnal oxygen from [employer]. Continue rescue inhaler as needed for relief [...] AWARE OF ELEVATED CREATININE SIGNATURE: Bell Johnson APRN.OFFSET PRESS ASSISTANT CHECKED BY: LEE ANN DATE of SERVICE: 07/29/2018 TIME of SERVICE: 8:22 AM Encounter for preoperative a nesthesiology assessment for cardiac surgery 07/29/2018 Bone metastasis 10/13/2017 08/29/2021 Overview: Added automatically from request for surgery [id number] Hypoxemia 05/20/2017 08/03/2018 Overview: Requiring HF O2 after extubation A/p Begin diuresis and oob to chair, wean O2 as able. 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 Hypovolemia/fluctuating lacic acidosis 07/30/2018 08/02/2018 Overview: A/p albumin given x1 Discharge planning issues 07/29/2018 Overview: Discharge to SNF 08.06.2018. Lives in [facility], alone but has supportive family. PT/OT/RT recommend SNF. Appointments requested with [employer] and Cards. Preop testing 07/29/2018 08/03/2018 Overview: [...] AWARE OF ELEVATED CREATININE SIGNATURE: Bell Johnson APRN.OFFSET PRESS ASSISTANT CHECKED BY: LEE ANN DATE of SERVICE: 07/29/2018 TIME of SERVICE: 8:22 AM Encounter for preoperative a nesthesiology assessment for cardiac surgery 07/29/2018 Bone metastasis 10/13/2017 08/29/2021 Overview: Added automatically from request for surgery [id number] Hypoxemia 05/20/2017 08/03/2018 Overview: Requiring HF O2 after extubation A/p Begin diuresis and oob to chair, wean O2 as able. 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 Hypovolemia/fluctuating lacic acidosis 07/30/2018 08/02/2018 Overview: A/p albumin given x1 Discharge planning issues 07/29/2018 Overview: Discharge to SNF 08.06.2018. Lives in [facility], alone but has supportive family. PT/OT/RT recommend SNF. Appointments requested with [employer] and Cards. Preop testing 07/29/2018 08/03/2018 Overview: [...] AWARE OF ELEVATED CREATININE SIGNATURE: Bell Johnson APRN.OFFSET PRESS ASSISTANT CHECKED BY: LEE ANN DATE of SERVICE: 07/29/2018 TIME of SERVICE: 8:22 AM Encounter for preoperative a nesthesiology assessment for cardiac surgery 07/29/2018 Bone metastasis 10/13/2017 08/29/2021 Overview: Added automatically from request for surgery [id number] Hypoxemia 05/20/2017 08/03/2018 Overview: Requiring HF O2 after extubation A/p Begin diuresis and oob to chair, wean O2 as able. 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 Hypovolemia/fluctuating lacic acidosis 07/30/2018 08/02/2018 Overview: A/p albumin given x1 Discharge planning issues 07/29/2018 Overview: Discharge to SNF 08.06.2018. Lives in [facility], alone but has supportive family. PT/OT/RT recommend SNF. Appointments requested with [employer] and Cards. Preop testing 07/29/2018 08/03/2018 Overview: [...] AWARE OF ELEVATED CREATININE SIGNATURE: Bell Johnson APRN.OFFSET PRESS ASSISTANT CHECKED BY: LEE ANN DATE of SERVICE: 07/29/2018 TIME of SERVICE: 8:22 AM Encounter for preoperative a nesthesiology assessment for cardiac surgery 07/29/2018 Bone metastasis 10/13/2017 08/29/2021 Overview: Added automatically from request for surgery [id number] Hypoxemia 05/20/2017 08/03/2018 Overview: Requiring HF O2 after extubation A/p Begin diuresis and oob to chair, wean O2 as able. 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 Hypovolemia/fluctuating lacic acidosis 07/30/2018 08/02/2018 Overview: A/p albumin given x1 Discharge planning issues 07/29/2018 Overview: Discharge to SNF 08.06.2018. Lives in [facility], alone but has supportive family. PT/OT/RT recommend SNF. Appointments requested with [employer] and Cards. Preop testing 07/29/2018 08/03/2018 Overview: [...] AWARE OF ELEVATED CREATININE SIGNATURE: Bell Johnson APRN.OFFSET PRESS ASSISTANT CHECKED BY: LEE ANN DATE of SERVICE: 07/29/2018 TIME of SERVICE: 8:22 AM Encounter for preoperative a nesthesiology assessment for cardiac surgery 07/29/2018 Bone metastasis 10/13/2017 08/29/2021 Overview: Added automatically from request for surgery [id number] Hypoxemia 05/20/2017 08/03/2018 Overview: Requiring HF O2 after extubation A/p Begin diuresis and oob to chair, wean O2 as able. 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 08/03/2018 Left-sided low back pain wit h left-sided sciatica 02/19/2016 08/03/2018 Vitamin D deficiency 07/09/2010 018 Overview: Vit D 26.4 at [facility] 07/01/2010 Impaired fasting glucose 10/06/200812/2017 Elevated blood [...] of this encounter (statuses as of 09/30/2023) [facility] Diagnosis Left lower quadrant abdominal pain- Primary History of diverticulitis [facility] Diagnosis Frequent urination- Primary Urinary frequency [facility] Diagnosis Acute diverticulitis Diverticulitis of colon (without mention of hemorrhage) [facility] Diagnosis Essential hypertension- Primary Unspecified [...] with right-sided sciatica [facility] Diagnosis 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) Splenic lesion Disease of spleen, unspecified [facility] Diagnosis UTI symptoms- Primary Other symptoms involving urinary system S/P placement of cardiac pacemaker Cardiac pacemaker in situ [facility] Diagnosis Microscopic hematuria- Primary [facility] Diagnosis Chronic obstructive pulmonary disease, unspecified COPD type (HCC) [facility] Diagnosis Chronic obstructive pulmonary disease, unspecified COPD type (HCC)- Primary Former smoker Personal history of tobacco use, presenting hazards to health [facility] Diagnosis Chronic heart failure with preserved ejection fraction (HFpEF) (HCC)- Primary Chronic right-sided low back pain with right-sided sciatica Acute bilateral low back pain with left-sided sciatica S/P placement of cardiac pacemaker Cardiac pacemaker in situ [facility] Diagnosis Chronic right-sided low back pain with right-sided sciatica [facility]* Diagnosis Abdominal pain, LLQ (left lower quadrant)- Primary Abdominal pain, left lower quadrant History of colonic diverticulitis Personal history of other diseases of digestive system [facility] Diagnosis Chronic right-sided low back pain with right-sided sciatica [facility] Diagnosis Right leg swelling- Primary Swelling of limb Asymptomatic postmenopausal status [facility] Diagnosis Atrial fibrillation, unspecified type (HCC)- Primary Chronic obstructive pulmonary disease, unspecified COPD type (HCC) Rib pain on left side Chest pain, unspecified Rib injury Sprain of ribs [facility] Diagnosis Infection in abdomen (HCC)- Primary Unspecified peritonitis Left lower quadrant abdominal pain Acute diarrhea Diarrhea [facility] Diagnosis Chest congestion- Primary Other symptoms involving respiratory system and chest documented [facility] Diagnosis Chronic obstructive pulmonary disease, unspecified COPD type (HCC) [facility] Diagnosis Moderate COPD (chronic obstructive pulmonary disease) (HCC)- Primary Chronic airway obstruction, not elsewhere classified Former smoker Personal history of tobacco use, presenting hazards to health [facility] Diagnosis Chronic obstructive pulmonary disease, unspecified COPD type (HCC) [facility]* Diagnosis Rib pain on left side- Primary Chest pain, unspecified Fall, subsequent encounter Muscle strain Unspecified site of sprain and strain Age related osteoporosis, unspecified pathological fracture presence [facility]* Diagnosis LLQ pain- Primary Abdominal pain, left lower quadrant Gas pain Flatulence, eructation, and gas pain Infection in abdomen (HCC) Unspecified peritonitis Rib pain on left side Chest pain, unspecified Fall, subsequent encounter Muscle strain Unspecified site of sprain and strain [facility] Diagnosis Chronic obstructive pulmonary disease, unspecified COPD type (HCC) documented [facility] Diagnosis Permanent atrial fibrillation with rapid [...] atrial fibrillation (HCC) [facility] Diagnosis Frequency of urination- Primary Urinary frequency Vaginal itching Pruritus of genital organs Palpitation Palpitations Presence of permanent cardiac pacemaker Cardiac pacemaker in situ Anticoagulant long-term use Long-term (current) use of 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 Permanent atrial fibrillation with rapid ventricular response (HCC) Permanent atrial fibrillation (HCC) Atrial fibrillation Tachycardia-bradycardia syndrome (HCC) Sinoatrial node dysfunction [facility] Diagnosis Longstanding persistent atrial fibrillation (HCC) [facility] Diagnosis Permanent atrial fibrillation (HCC)- Primary Atrial fibrillation 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) Cardiac complications S/P placement of cardiac pacemaker Cardiac pacemaker in situ Essential hypertension Unspecified essential hypertension At risk for stroke Other specified personal history presenting hazards to health [facility] Diagnosis S/P ablation of atrial fibrillation- Primary Other postprocedural status [facility]* Diagnosis Essential hypertension- Primary Unspecified essential hypertension Hypotension, unspecified hypotension type Urinary frequency Gastroesophageal reflux disease, unspecified whether esophagitis present Encounter for long-term current use of medication Anticoagulant long-term use Long-term (current) use of 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 [facility] Diagnosis Closed fracture of neck of right femur with routine healing, subsequent encounter- Primary [facility] Diagnosis Closed fracture of neck of right femur with routine healing- Primary Aftercare for healing traumatic fracture of hip [facility] Diagnosis Essential hypertension- Primary Unspecified essential [...] not elsewhere classified documented in this encounter [place] note* Diagnosis Acute cystitis with hematuria- Primary Urinary frequency documented in this encounter [facility]* Diagnosis Essential hypertension- Primary Unspecified essential hypertension Age related osteoporosis, unspecified pathological fracture presence Arteriosclerosis of coronary artery Coronary atherosclerosis of unspecified type of vessel, [place] or graft 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 Impacted cerumen of left ear Impacted cerumen Excessive cerumen in ear canal, right Chronic right-sided low back pain with right-sided sciatica Permanent atrial fibrillation with rapid ventricular response (HCC) Spinal stenosis of lumbar region with radiculopathy Spinal stenosis, lumbar region, without neurogenic claudication documented in this encounter [place] note* Diagnosis Essential hypertension- Primary Unspecified essential hypertension Chronic obstructive pulmonary disease, unspecified COPD type (HCC) Viral URI Acute upper respiratory infections of unspecified site Right leg swelling Swelling of limb Dizziness Dizziness and giddiness documented in this encounter [place] note* Diagnosis Age related osteoporosis, unspecified pathological fracture presence- Primary documented in this encounter [place] note* Diagnosis Closed fracture of right femur, unspecified fracture morphology, unspecified portion of femur, sequela- Primary documented in this encounter [place] note* Diagnosis Loose stools- Primary Abnormal feces documented in this encounter [place] note* Diagnosis Chest pain, unspecified type- Primary documented in this encounter [facility] for referral (narrative)* Diagnostic Procedure Only (Routine) - Closed Specialty Diagnoses / Procedures Referred By Contac t Referred To Contact US IMAGING Diagnoses 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) Splenic lesion Procedures US ABD RT UPPER QUADRANT ULTRASOUND-ABDOMINAL PC Maria Isabel Tay MD [address] [place] [address] Us Imaging Referral ID Status Reason Start Date Expiration Date V isits Requested Visits Authorized [id number] Closed Auto-Generate d Referral 03/23/2022 10/23/2022 1 1 [facility] for referral (narrative)* Outpatient Procedure (Routine) - Pending Review Specialty Diagnoses / Procedures Referred By Contac t Referred To Contact [facility] Diagnoses Chronic obstructive pulmonary disease, unspecified COPD type (HCC) Procedures OXIMETRY WITH AMBULATION NONINVASIVE EAR/PULSE OXIMETRY MULTIPLE Aaliyah Mccarthy PA-C [address] [address] [facility] [place] [address] [place] [address] Referral ID Status Reason Start Date Expiration Date Visits Requested Visits Authorized [id number] Pending Review Auto-Generat ed Referral 05/01/2022 05/31/2023 1 1 [facility] for referral (narrative)* Outpatient Procedure (Urgent) - Closed Specialty Diagnoses / Procedures Referred By Contac t Referred To Contact [facility] Diagnoses Right leg swelling Procedures US LEG VEIN DVT UNL VAS LAB DUP-SCAN XTR VEINS UNILATERAL/LIMITED STUDY Alisia Pacheco MD [address] [place] [address] [facility] [place] [id number] Referral ID Status Reason Start Date Expiration Date V isits Requested Visits Authorized [id number] Closed Auto-Generate d Referral 08/15/2022 11/01/2022 1 1 * Diagnostic Procedure Only (Urgent) - Pending Review Specialty Diagnoses / Procedures Referred By Contac t Referred To Contact US IMAGING Diagnoses Right leg swelling Procedures US DVT LOWER RT DUP-SCAN XTR VEINS UNILATERAL/LIMITED STUDY Ailsia Pacheco MD [address] [place] [id number] Us Imaging Referral ID Status Reason Start Date Expiration Date Visits Requested Visits Authorized [id number] Pending Review Auto-Generat ed Referral 2 09/13/2023 1 1 [facility] for referral (narrative)* Diagnostic Procedure Only (Routine) - Closed Specialty Diagnoses / Procedures Referred By Contac t Referred To Contact XR IMAGING Diagnoses Rib pain on left side Rib injury Procedures XR RIBS/CHEST 3V AP RIB/OBLS/CXR LEFT RADEX RIBS UNI W/POSTEROANT CH MINIMUM 3 VIEWS Mana Valentin APRN.CNP [address] [place] [address] Xr Imaging Referral ID Status Reason Start Date Expiration Date V isits Requested Visits Authorized [id number] Closed Auto-Generate d Referral 08/22/2022 11/01/2022 1 1 [facility] for referral (narrative)* Outpatient Procedure (Routine) - Pending Review Specialty Diagnoses / Procedures Referred By Contac t Referred To Contact [facility] Diagnoses Moderate COPD (chronic obstructive pulmonary disease) (HCC) Procedures SPIROMETRY BASELINE ONLY SPMTRY W/VC EXPIRATORY WENDY W/WO MXML VOL VNTJ Aaliyah Stone PA-C [address] [place] [address] [facility] [place] [address] [place] [address] Referral ID Status Reason Start Date Expiration Date Visits Requested Visits Authorized [id number] Pending Review Auto-Generat ed Referral 2 10/22/2023 1 1 [facility] for visit Narrative* Diagnostic Procedure Only (Routine) - Closed Specialty Diagnoses / Procedures Referred By Contac t Referred To Contact US IMAGING Diagnoses 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) Splenic lesion Procedures US ABD RT UPPER QUADRANT ULTRASOUND-ABDOMINAL PC Maria Isabel Tay MD [address] [place] [address] Us Imaging Referral ID Status Reason Start Date Expiration Date V isits Requested Visits Authorized [id number] Closed Auto-Generate d Referral 03/23/2022 10/23/2022 1 1 [facility] Summary Purpose Family History No Family History Records FoundNo Family History Records FoundNo Family History Records FoundNo Family History Records FoundNo Family History Records FoundNo Family History Records FoundNo Family History Records FoundNo Family History Records Found Advance Directives No Advanced Directives Records FoundDocuments on File Type Date 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 Advance Directive(s) 07/29/2018 12:21 PM Advance Directive(s) 04/23/2018 7:39 AM Advance Directive(s) 12/02/2017 11:34 AM Advance Directive(s) 11/18/2017 12:29 PM Documents on File Type Date 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 Advance Directive(s) 07/29/2018 12:21 PM Advance Directive(s) 04/23/2018 7:39 AM Advance Directive(s) 12/02/2017 11:34 AM Advance Directive(s) 11/18/2017 12:29 PM Reason for Referral Specialty Diagnoses / Procedures Referred By Contac t Referred To Contact Urology Diagnoses Microscopic hematuria Procedures CONSULT TO UROLOGY OFFICE/OUTPATIENT NEW HIGH MDM 60-74 MINUTES Jerad 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, 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[employer] SUPERVISOR [address] [place] [address] Referral ID Status Reason Start Date Expiration Date Visits Requested Visits Authorized [id number] Pending Review PCP Requested Referral 04/10/2022 04/10/2023 1 1 Specialty Diagnoses / Procedures Referred By Contac t Referred To Contact CT IMAGING Diagnoses Infection in abdomen (HCC) Left lower quadrant abdominal pain Procedures CT ABD/PEL W IVCON CT ABD & PELVIS W/CONTRAST Alisia Pacheco MD [address] [place] [address] Ct Imaging Referral ID Status Reason Start Date Expiration Date V isits Requested Visits Authorized [id number] Closed Auto-Generate d Referral 07/14/2022 08/13/2023 1 [...] DATE CREATED AUTHOR AUTHOR'S ORGANIZ ATION [facility] DATE CREATED AUTHOR AUTHOR'S ORGANIZ ATION 05/12/2018 [facility] DATE CREATED AUTHOR AUTHOR'S ORGANIZ ATION 02/08/2023 [facility] DATE CREATED AUTHOR AUTHOR'S ORGANIZ ATION 02/20/2023 [facility] DATE CREATED AUTHOR AUTHOR'S ORGANIZ ATION 05/07/2023 [facility] DATE CREATED AUTHOR AUTHOR'S ORGANIZ ATION 10/30/2023 [facility] DATE CREATED AUTHOR AUTHOR'S ORGANIZ ATION 12/05/2023 [facility] Source Comments (unrecognize d section and content) In the event this informatio n is protected by the Federal Confidentiality of Alcohol and Drug Abuse Patient Records regulations: The Federal rules restrict any use of the information to criminally investigate or prosecute any alcohol or drug abuse patient.[facility] the event this information is protected by the Federal Confidentiality of Alcohol and Drug Abuse Patient Records regulations: The Federal rules restrict any use of the information to criminally investigate or prosecute any alcohol or drug abuse patient.[facility] the event this information is protected by the Federal Confidentiality of Alcohol and Drug Abuse Patient Records regulations: The Federal rules restrict any use of the information to criminally investigate or prosecute any alcohol or drug abuse patient.[facility] the event this information is protected by the Federal Confidentiality of Alcohol and Drug Abuse Patient Records regulations: The Federal rules restrict any use of the information to criminally investigate or prosecute any alcohol or drug abuse patient.[facility] the event this information is protected by the Federal Confidentiality of Alcohol and Drug Abuse Patient Records regulations: The Federal rules restrict any use of the information to criminally investigate or prosecute any alcohol or drug abuse patient.[facility] the event this information is protected by the Federal Confidentiality of Alcohol and Drug Abuse Patient Records regulations: The Federal rules restrict any use of the information to criminally investigate or prosecute any alcohol or drug abuse patient.[facility] the event this information is protected by the Federal Confidentiality of Alcohol and Drug Abuse Patient Records regulations: The Federal rules restrict any use of the information to criminally investigate or prosecute any alcohol or drug abuse patient.[facility] the event this information is protected by the Federal Confidentiality of Alcohol and Drug Abuse Patient Records regulations: The Federal rules restrict any use of the information to criminally investigate or prosecute any alcohol or drug abuse patient.[facility] the event this information is protected by the Federal Confidentiality of Alcohol and Drug Abuse Patient Records regulations: The Federal rules restrict any use of the information to criminally investigate or prosecute any alcohol or drug abuse patient.[facility] the event this information is protected by the Federal Confidentiality of Alcohol and Drug Abuse Patient Records regulations: The Federal rules restrict any use of the information to criminally investigate or prosecute any alcohol or drug abuse patient.[facility] the event this information is protected by the Federal Confidentiality of Alcohol and Drug Abuse Patient Records regulations: The Federal rules restrict any use of the information to criminally investigate or prosecute any alcohol or drug abuse patient.[facility] the event this information is protected by the Federal Confidentiality of Alcohol and Drug Abuse Patient Records regulations: The Federal rules restrict any use of the information to criminally investigate or prosecute any alcohol or drug abuse patient.[facility] the event this information is protected by the Federal Confidentiality of Alcohol and Drug Abuse Patient Records regulations: The Federal rules restrict any use of the information to criminally investigate or prosecute any alcohol or drug abuse patient.[facility] the event this information is protected by the Federal Confidentiality of Alcohol and Drug Abuse Patient Records regulations: The Federal rules restrict any use of the information to criminally investigate or prosecute any alcohol or drug abuse patient.[facility] the event this information is protected by the Federal Confidentiality of Alcohol and Drug Abuse Patient Records regulations: The Federal rules restrict any use of the information to criminally investigate or prosecute any alcohol or drug abuse patient.[facility] Hospital[facility] the event this information is protected by the Federal Confidentiality of Alcohol and Drug Abuse Patient Records regulations: The Federal rules restrict any use of the information to criminally investigate or prosecute any alcohol or drug abuse patient.[facility] the event this information is protected by the Federal Confidentiality of Alcohol and Drug Abuse Patient Records regulations: The Federal rules restrict any use of the information to criminally investigate or prosecute any alcohol or drug abuse patient.[facility] the event this information is protected by the Federal Confidentiality of Alcohol and Drug Abuse Patient Records regulations: The Federal rules restrict any use of the information to criminally investigate or prosecute any alcohol or drug abuse patient.[facility] the event this information is protected by the Federal Confidentiality of Alcohol and Drug Abuse Patient Records regulations: The Federal rules restrict any use of the information to criminally investigate or prosecute any alcohol or drug abuse patient.[facility] HospitalIn the event this information is protected by the Federal Confidentiality of Alcohol and Drug Abuse Patient Records regulations: The Federal rules restrict any use of the information to criminally investigate or prosecute any alcohol or drug abuse patient.[facility] HospitalIn the event this information is protected by the Federal Confidentiality of Alcohol and Drug Abuse Patient Records regulations: The Federal rules restrict any use of the information to criminally investigate or prosecute any alcohol or drug abuse patient.[facility] HospitalIn the event this information is protected by the Federal Confidentiality of Alcohol and Drug Abuse Patient Records regulations: The Federal rules restrict any use of the information to criminally investigate or prosecute any alcohol or drug abuse patient.[facility] the event this information is protected by the Federal Confidentiality of Alcohol and Drug Abuse Patient Records regulations: The Federal rules restrict any use of the information to criminally investigate or prosecute any alcohol or drug abuse patient.[facility] the event this information is protected by the Federal Confidentiality of Alcohol and Drug Abuse Patient Records regulations: The Federal rules restrict any use of the information to criminally investigate or prosecute any alcohol or drug abuse patient.[facility]In the event this information is protected by the Federal Confidentiality of Alcohol and Drug Abuse Patient Records regulations: The Federal rules restrict any use of the information to criminally investigate or prosecute any alcohol or drug abuse patient.[facility] the event this information is protected by the Federal Confidentiality of Alcohol and Drug Abuse Patient Records regulations: The Federal rules restrict any use of the information to criminally investigate or prosecute any alcohol or drug abuse patient.[facility] HospitalIn the event this information is protected by the Federal Confidentiality of Alcohol and Drug Abuse Patient Records regulations: The Federal rules restrict any use of the information to criminally investigate or prosecute any alcohol or drug abuse patient.[facility] HospitalIn the event this information is protected by the Federal Confidentiality of Alcohol and Drug Abuse Patient Records regulations: The Federal rules restrict any use of the information to criminally investigate or prosecute any alcohol or drug abuse patient.[facility] HospitalIn the event this information is protected by the Federal Confidentiality of Alcohol and Drug Abuse Patient Records regulations: The Federal rules restrict any use of the information to criminally investigate or prosecute any alcohol or drug abuse patient.[facility] HospitalIn the event this information is protected by the Federal Confidentiality of Alcohol and Drug Abuse Patient Records regulations: The Federal rules restrict any use of the information to criminally investigate or prosecute any alcohol or drug abuse patient.[facility] HospitalIn the event this information is protected by the Federal Confidentiality of Alcohol and Drug Abuse Patient Records regulations: The Federal rules restrict any use of the information to criminally investigate or prosecute any alcohol or drug abuse patient.[facility] HospitalIn the event this information is protected by the Federal Confidentiality of Alcohol and Drug Abuse Patient Records regulations: The Federal rules restrict any use of the information to criminally investigate or prosecute any alcohol or drug abuse patient.[facility] HospitalIn the event this information is protected by the Federal Confidentiality of Alcohol and Drug Abuse Patient Records regulations: The Federal rules restrict any use of the information to criminally investigate or prosecute any alcohol or drug abuse patient.[facility] HospitalIn the event this information is protected by the Federal Confidentiality of Alcohol and Drug Abuse Patient Records regulations: The Federal rules restrict any use of the information to criminally investigate or prosecute any alcohol or drug abuse patient.[facility] HospitalIn the event this information is protected by the Federal Confidentiality of Alcohol and Drug Abuse Patient Records regulations: The Federal rules restrict any use of the information to criminally investigate or prosecute any alcohol or drug abuse patient.[facility] HospitalIn the event this information is protected by the Federal Confidentiality of Alcohol and Drug Abuse Patient Records regulations: The Federal rules restrict any use of the information to criminally investigate or prosecute any alcohol or drug abuse patient.[facility] HospitalIn the event this information is protected by the Federal Confidentiality of Alcohol and Drug Abuse Patient Records regulations: The Federal rules restrict any use of the information to criminally investigate or prosecute any alcohol or drug abuse patient.[facility] HospitalIn the event this information is protected by the Federal Confidentiality of Alcohol and Drug Abuse Patient Records regulations: The Federal rules restrict any use of the information to criminally investigate or prosecute any alcohol or drug abuse patient.[facility] HospitalIn the event this information is protected by the Federal Confidentiality of Alcohol and Drug Abuse Patient Records regulations: The Federal rules restrict any use of the information to criminally investigate or prosecute any alcohol or drug abuse patient.[facility] HospitalIn the event this information is protected by the Federal Confidentiality of Alcohol and Drug Abuse Patient Records regulations: The Federal rules restrict any use of the information to criminally investigate or prosecute any alcohol or drug abuse patient.[facility] HospitalIn the event this information is protected by the Federal Confidentiality of Alcohol and Drug Abuse Patient Records regulations: The Federal rules restrict any use of the information to criminally investigate or prosecute any alcohol or drug abuse patient.[facility] HospitalIn the event this information is protected by the Federal Confidentiality of Alcohol and Drug Abuse Patient Records regulations: The Federal rules restrict any use of the information to criminally investigate or prosecute any alcohol or drug abuse patient.[facility] HospitalIn the event this information is protected by the Federal Confidentiality of Alcohol and Drug Abuse Patient Records regulations: The Federal rules restrict any use of the information to criminally investigate or prosecute any alcohol or drug abuse patient.[facility] HospitalIn the event this information is protected by the Federal Confidentiality of Alcohol and Drug Abuse Patient Records regulations: The Federal rules restrict any use of the information to criminally investigate or prosecute any alcohol or drug abuse patient.[facility] HospitalIn the event this information is protected by the Federal Confidentiality of Alcohol and Drug Abuse Patient Records regulations: The Federal rules restrict any use of the information to criminally investigate or prosecute any alcohol or drug abuse patient.[facility] HospitalIn the event this information is protected by the Federal Confidentiality of Alcohol and Drug Abuse Patient Records regulations: The Federal rules restrict any use of the information to criminally investigate or prosecute any alcohol or drug abuse patient.[facility] HospitalIn the event this information is protected by the Federal Confidentiality of Alcohol and Drug Abuse Patient Records regulations: The Federal rules restrict any use of the information to criminally investigate or prosecute any alcohol or drug abuse patient.[facility] HospitalIn the event this information is protected by the Federal Confidentiality of Alcohol and Drug Abuse Patient Records regulations: The Federal rules restrict any use of the information to criminally investigate or prosecute any alcohol or drug abuse patient.[facility] HospitalIn the event this information is protected by the Federal Confidentiality of Alcohol and Drug Abuse Patient Records regulations: The Federal rules restrict any use of the information to criminally investigate or prosecute any alcohol or drug abuse patient.[facility] HospitalIn the event this information is protected by the Federal Confidentiality of Alcohol and Drug Abuse Patient Records regulations: The Federal rules restrict any use of the information to criminally investigate or prosecute any alcohol or drug abuse patient.[facility] HospitalIn the event this information is protected by the Federal Confidentiality of Alcohol and Drug Abuse Patient Records regulations: The Federal rules restrict any use of the information to criminally investigate or prosecute any alcohol or drug abuse patient.[facility] HospitalIn the event this information is protected by the Federal Confidentiality of Alcohol and Drug Abuse Patient Records regulations: The Federal rules restrict any use of the information to criminally investigate or prosecute any alcohol or drug abuse patient.[facility] HospitalIn the event this information is protected by the Federal Confidentiality of Alcohol and Drug Abuse Patient Records regulations: The Federal rules restrict any use of the information to criminally investigate or prosecute any alcohol or drug abuse patient.[facility] HospitalIn the event this information is protected by the Federal Confidentiality of Alcohol and Drug Abuse Patient Records regulations: The Federal rules restrict any use of the information to criminally investigate or prosecute any alcohol or drug abuse patient.[facility] HospitalIn the event this information is protected by the Federal Confidentiality of Alcohol and Drug Abuse Patient Records regulations: The Federal rules restrict any use of the information to criminally investigate or prosecute any alcohol or drug abuse patient.[facility] HospitalIn the event this information is protected by the Federal Confidentiality of Alcohol and Drug Abuse Patient Records regulations: The Federal rules restrict any use of the information to criminally investigate or prosecute any alcohol or drug abuse patient.[facility] HospitalIn the event this information is protected by the Federal Confidentiality of Alcohol and Drug Abuse Patient Records regulations: The Federal rules restrict any use of the information to criminally investigate or prosecute any alcohol or drug abuse patient.[facility] HospitalIn the event this information is protected by the Federal Confidentiality of Alcohol and Drug Abuse Patient Records regulations: The Federal rules restrict any use of the information to criminally investigate or prosecute any alcohol or drug abuse patient.[facility] HospitalIn the event this information is protected by the Federal Confidentiality of Alcohol and Drug Abuse Patient Records regulations: The Federal rules restrict any use of the information to criminally investigate or prosecute any alcohol or drug abuse patient.[facility] HospitalIn the event this information is protected by the Federal Confidentiality of Alcohol and Drug Abuse Patient Records regulations: The Federal rules restrict any use of the information to criminally investigate or prosecute any alcohol or drug abuse patient.[facility] HospitalIn the event this information is protected by the Federal Confidentiality of Alcohol and Drug Abuse Patient Records regulations: The Federal rules restrict any use of the information to criminally investigate or prosecute any alcohol or drug abuse patient.[facility] Reason for Visit (unrecogniz ed section [...] WO BRONCHODILATOR Aaliyah Stone, GIOVANNA [address] [facility] [address] [place] [address] Res[facility] [place] [address] [place] [address] Referral ID Status Reason Start Date Expiration Date V isits Requested Visits Authorized [id number] Closed Auto-Generate d Referral 07/26/2021 08/25/2022 1 [...] ABD & PELVIS W/CONTRAST Alisia Pacheco MD [address] [place] [address] Ct Imaging Referral ID Status Reason Start Date Expiration Date V isits Requested Visits Authorized [id number] Closed Auto-Generate d Referral 07/14/2022 08/13/2023 1 1 Reason Onset Date Comments Refill Request 08/08/2022 Reason Comments Patient Question Reason Comments Recheck [facility] ER follow up Reason Comments ER F/U Reason Comments Chest Congestion SOB, rib pain x this AM Reason Onset Date Comments Patient Question 09/19/2022 Specialty Diagnoses / Procedures Referred By Contac t Referred To Contact [facility] Diagnoses Chronic obstructive pulmonary disease, unspecified COPD type (HCC) Procedures OXIMETRY WITH AMBULATION NONINVASIVE EAR/PULSE OXIMETRY MULTIPLE Aaliyah Mccarthy PA-C [address] [facility] [place] [address] Res[facility] [place] [address] [place] [address] Referral ID Status Reason Start Date Expiration Date V isits Requested Visits Authorized [id number] Closed Auto-Generate d Referral 09/15/2022 11/01/2022 1 [...] Comments Home Health Care Certification 04/10/2023 [facility] 01/31/2023-03/31/2023 Reason Onset Date Comments Home Health Certification 04/14/2023 [facility] 02/17/2023-04/17/2023 Reason Comments ED Follow-up Reason Comments Urinary Tract Infection Possible UTI uri nary urgency,small pain,urinary frequency x 4 days Reason Comments 4 month f/u Reason Comments Hospital F/U [facility] Hospital dischar ge 06/27/23 for High Blood Pressure Reason Comments Orders Reason Comments Imm/Inj Specialty Diagnoses / Procedures Referred By Contac t Referred To Contact CT IMAGING Diagnoses Splenic lesion 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 Does have a [employer] pacer in place, it is NOT a defib. Denies SOB or dizziness. Care Teams (unrecognized sec tion and content) Financial Solutions Advisor Relationship Specialty Start Date End Date Alisia Pacheco MD [address] [place], [place] [id number] PCP - General Internal Medicine 07/19/12 Arnold Bland [address] [address] Consulting Cardiology 03/15/19 Panda Miller MD [address] [place] [address] Specialty Hospital Recruiter Pulmonary and Critical Care Medicine 08/03/20 Financial Solutions Advisor Relationship Specialty Start Date End Date Alisia Pacheco MD [address] [place] [address] PCP - General Internal Medicine 07/19/12 Arnold Bland [address] [place] [phone] Consulting Cardiology 03/15/19 Panda Miller MD [address] [place] [address] Specialty Hospital Recruiter Pulmonary and Critical Care Medicine 08/03/20 Financial Solutions Advisor Relationship Specialty Start Date End Date Alisia Pacheco MD [address] [place], [place] [address] PCP - General Internal Medicine 07/19/12 Arnold Bland [address] [place] [address] Consulting Cardiology 03/15/19 Panda Miller MD [address] [facility] [place] [address] Specialty Hospital Recruiter Pulmonary and Critical Care Medicine 08/03/20 Financial Solutions Advisor Relationship Specialty Start Date End Date Alisia Pacheco MD [address] [facility] [place] [address] PCP - General Internal Medicine 07/19/12 Arnold Bland [address] [place] [address] Consulting Cardiology 03/15/19 Panda Miller MD [address] [facility] [place] [address] Specialty Hospital Recruiter Pulmonary and Critical Care Medicine 08/03/20 Financial Solutions Advisor Relationship Specialty Start Date End Date Alisia Pacheco MD [address] [facility] [place] [address] PCP - General Internal Medicine 07/19/12 Arnold Bland [address] [place] [address] Consulting Cardiology 03/15/19 Panda Miller MD [address] [facility] [place] [address] Specialty Hospital Recruiter Pulmonary and Critical Care Medicine 08/03/20 Financial Solutions Advisor Relationship Specialty Start Date End Date Alisia Pacheco MD [address] [facility] [place] [address] PCP - General Internal Medicine 07/19/12 Arnold Bland [address] [place] [address] Consulting Cardiology 03/15/19 Panda Miller MD [address] [address] Specialty Hospital Recruiter Pulmonary and Critical Care Medicine 08/03/20 Financial Solutions Advisor Relationship Specialty Start Date End Date Alisia Pacheco MD [address] [facility] [place] [address] PCP - General Internal Medicine 07/19/12 Arnold Bland [address] [place] [address] Consulting Cardiology 03/15/19 Panda Miller MD [address] [address] Specialty Hospital Recruiter Pulmonary and Critical Care Medicine 08/03/20 Financial Solutions Advisor Relationship Specialty Start Date End Date Alisia Pacheco MD [address] [facility] [place] [address] PCP - General Internal Medicine 07/19/12 Arnold Bland [address] [place] [address] Consulting Cardiology 03/15/19 Panda Miller MD [address] [address] Specialty Hospital Recruiter Pulmonary and Critical Care Medicine 08/03/20 Financial Solutions Advisor Relationship Specialty Start Date End Date Alisia Pacheco MD [address] [facility] [place] [address] PCP - General Internal Medicine 07/19/12 Arnold Bland [address] [place] [address] Consulting Cardiology 03/15/19 Panda Miller MD [address] [place] [address] Specialty Hospital Recruiter Pulmonary and Critical Care Medicine 08/03/20 Financial Solutions Advisor Relationship Specialty Start Date End Date Alisia Pacheco MD [address] [facility] [place] [address] PCP - General Internal Medicine 07/19/12 Arnold Bland [address] [place] [address] Consulting Cardiology 03/15/19 Panda Miller MD [address] [facility] [place] [address] Specialty Hospital Recruiter Pulmonary and Critical Care Medicine 08/03/20 Financial Solutions Advisor Relationship Specialty Start Date End Date Alisia Pacheco MD [address] [facility] [place] [address] PCP - General Internal Medicine 07/19/12 Arnold Bland [address] [place] [address] Consulting Cardiology 03/15/19 Panda Miller MD [address] [place] [address] Specialty Hospital Recruiter Pulmonary and Critical Care Medicine 08/03/20 Financial Solutions Advisor Relationship Specialty Start Date End Date Alisia Pacheco MD [address] [facility] [place] [address] PCP - General Internal Medicine 07/19/12 Arnold Bland [address] [place] [address] Consulting Cardiology 03/15/19 Panda Miller MD [address] [facility] [place] [address] Specialty Hospital Recruiter Pulmonary and Critical Care Medicine 08/03/20 Financial Solutions Advisor Relationship Specialty Start Date End Date Alisia Pacheco MD [address] [facility] [place] [address] PCP - General Internal Medicine 07/19/12 Arnold Bland [address] [place] [address] Consulting Cardiology 03/15/19 Panda Miller MD [address] [facility] [place] [address] Specialty Hospital Recruiter Pulmonary and Critical Care Medicine 08/03/20 Financial Solutions Advisor Relationship Specialty Start Date End Date Alisia Pacheco MD [address] [facility] [place] [address] PCP - General Internal Medicine 07/19/12 Arnold Bland [address] [place] [address] Consulting Cardiology 03/15/19 Panda Miller MD [address] [facility] [place] [address] Specialty Hospital Recruiter Pulmonary and Critical Care Medicine 08/03/20 Financial Solutions Advisor Relationship Specialty Start Date End Date Alisia Pacheco MD [address] [facility] [place] [address] PCP - General Internal Medicine 07/19/12 Arnold Bland [address] [facility] [address] [place] [address] Consulting Cardiology 03/15/19 Panda Miller MD [address] [facility] [place] [address] Specialty Hospital Recruiter Pulmonary and Critical Care Medicine 08/03/20 Financial Solutions Advisor Relationship Specialty Start Date End Date Alisia Pacheco MD [address] [facility] [place] [address] PCP - General Internal Medicine 07/19/12 Arnold Bland [address] [place] [address] Consulting Cardiology 03/15/19 Panda Miller MD [address] [place] [address] Specialty Hospital Recruiter Pulmonary and Critical Care Medicine 08/03/20 Financial Solutions Advisor Relationship Specialty Start Date End Date Alisia Pacheco MD [address] [facility] [place] [address] PCP - General Internal Medicine 07/19/12 Arnold Bland [address] [place] [address] Consulting Cardiology 03/15/19 Panda Miller MD [address] [facility] [place] [address] Specialty Hospital Recruiter Pulmonary and Critical Care Medicine 08/03/20 Financial Solutions Advisor Relationship Specialty Start Date End Date Alisia Pacheco MD [address] [facility] [place] [address] PCP - General Internal Medicine 07/19/12 Arnold Bland [address] [place] [address] Consulting Cardiology 03/15/19 Panda Miller MD [address] [place] [address] Specialty Hospital Recruiter Pulmonary and Critical Care Medicine 08/03/20 Financial Solutions Advisor Relationship Specialty Start Date End Date Alisia Pacheco MD [address] [facility] [place] [address] PCP - General Internal Medicine 07/19/[address] [place] [address] Consulting Cardiology 03/15/19 Panda Miller MD [address] [facility] [place] [address] Specialty Hospital Recruiter Pulmonary and Critical Care Medicine 08/03/20 Financial Solutions Advisor Relationship Specialty Start Date End Date Alisia Pacheco MD [address] [facility] [place] [address] PCP - General Internal Medicine 07/19/12 Arnold Bland [address] [place] [address] Consulting Cardiology 03/15/19 Panda Miller MD [address] [facility] [place] [address] Specialty Hospital Recruiter Pulmonary and Critical Care Medicine 08/03/20 Financial Solutions Advisor Relationship Specialty Start Date End Date Alisia Pacheco MD [address] [facility] [place] [address] PCP - General Internal Medicine 07/19/12 Arnold Bland [address] [place] [address] Consulting Cardiology 03/15/19 Panda Miller MD [address] [facility] [place] [address] Specialty Hospital Recruiter Pulmonary and Critical Care Medicine 08/03/20 Financial Solutions Advisor Relationship Specialty Start Date End Date Alisia Pacheco MD [address] [facility] [place] [address] PCP - General Internal Medicine 07/19/12 Arnold Bland [address] [place] [address] Consulting Cardiology 03/15/19 Panda Miller MD [address] [facility] [place] [address] Specialty Hospital Recruiter Pulmonary and Critical Care Medicine 08/03/20 Financial Solutions Advisor Relationship Specialty Start Date End Date Alisia Pacheco MD [address] [facility] [place] [address] PCP - General Internal Medicine 07/19/12 Arnold Bland [address] [place] [address] Consulting Cardiology 03/15/19 Panda Miller MD [address] [place] [address] Specialty Hospital Recruiter Pulmonary and Critical Care Medicine 08/03/20 Maria Isabel Tay MD [address] [facility] [place] [address] Hematology/Oncology 10/08/22 Financial Solutions Advisor Relationship Specialty Start Date End Date Alisia Pacheco MD [address] [facility] [place] [address] PCP - General Internal Medicine 07/19/12 Arnold Bland [address] [place] [address] Consulting Cardiology 03/15/19 Panda Miller MD [address] [place] [address] Specialty Hospital Recruiter Pulmonary and Critical Care Medicine 08/03/20 Maria Isabel Tay MD [address] [facility] [place] [address] Hematology/Oncology 10/08/22 Financial Solutions Advisor Relationship Specialty Start Date End Date Alisia Pacheco MD [address] [facility] [place] [address] PCP - General Internal Medicine 07/19/12 Arnold Bland [address] [place] [address] Consulting Cardiology 03/15/19 Panda Miller MD [address] [place] [address] Specialty Hospital Recruiter Pulmonary and Critical Care Medicine 08/03/20 Maria Isabel Tay MD [address] [place] [address] Hematology/Oncology 10/08/22 Financial Solutions Advisor Relationship Specialty Start Date End Date Alisia Pacheco MD [address] [facility] [place] [address] PCP - General Internal Medicine 07/19/12 Arnold Bland [address] [place] [address] Consulting Cardiology 03/15/19 Panda Miller MD [address] [place] [address] [facility] Pulmonary and Critical Care Medicine 08/03/20 Maria Isabel Tay MD [address] [place] [address] Hematology/Oncology 10/08/22 Financial Solutions Advisor Relationship Specialty Start Date End Date Alisia Pacheco MD [address] [facility] [place] [address] PCP - General Internal Medicine 07/19/12 Arnold Bland [address] [place] [address] Consulting Cardiology 03/15/19 Panda Miller MD [address] [address] [facility] Pulmonary and Critical Care Medicine 08/03/20 Maria Isabel Tay MD [address] [place] [address] Hematology/Oncology 10/08/22 Financial Solutions Advisor Relationship Specialty Start Date End Date Alisia Pacheco MD [address] [facility] [place] [address] PCP - General Internal Medicine 07/19/12 Arnold Bland [address] [place] [address] Consulting Cardiology 03/15/19 Panda Miller MD [address] [place] [address] [facility] Pulmonary and Critical Care Medicine 08/03/20 Maria Isabel Tay MD [address] [facility] [place] [address] Hematology/Oncology 10/08/22 Financial Solutions Advisor Relationship Specialty Start Date End Date Alisia Pacheco MD [address] [facility] [place] [address] PCP - General Internal Medicine 07/19/12 Arnold Bland [address] [place] [address] Consulting Cardiology 03/15/19 Panda Miller MD [address] [place] [address] [facility] Pulmonary and Critical Care Medicine 08/03/20 Maria Isabel Tay MD [address] [facility] [place] [address] Hematology/Oncology 10/08/22 Financial Solutions Advisor Relationship Specialty Start Date End Date Alisia Pacheco MD [address] [facility] [place] [address] PCP - General Internal Medicine 07/19/12 Arnold Bland [address] [place] [address] Consulting Cardiology 03/15/19 Panda Miller MD [address] [address] [facility] Pulmonary and Critical Care Medicine 08/03/20 Maria Isabel Tay MD [address] [place] [address] Hematology/Oncology 10/08/22 Financial Solutions Advisor Relationship Specialty Start Date End Date Alisia Pacheco MD [address] [facility] [place] [address] PCP - General Internal Medicine 07/19/12 Arnold Bland [address] [place] [address] Consulting Cardiology 03/15/19 Panda Miller MD [address] [place] [address] [facility] Pulmonary and Critical Care Medicine 08/03/20 Maria Isabel Tay MD [address] [place] [address] Hematology/Oncology 10/08/22 Financial Solutions Advisor Relationship Specialty Start Date End Date Alisia Pacheco MD [address] [facility] [place] [address] PCP - General Internal Medicine 07/19/12 Arnold Bland [address] [place] [address] Consulting Cardiology 03/15/19 Panda Miller MD [address] [address] [facility] Pulmonary and Critical Care Medicine 08/03/20 Maria Isabel Tay MD [address] [address] Hematology/Oncology 10/08/22 Financial Solutions Advisor Relationship Specialty Start Date End Date Alisia Pacheco MD [address] [facility] [place] [address] PCP - General Internal Medicine 07/19/12 Arnold Bland [address] [place] [address] Consulting Cardiology 03/15/19 Panda Miller MD [address] [place] [address] [facility] Pulmonary and Critical Care Medicine 08/03/20 Maria Isabel Tay MD [address] [facility] [place] [address] Hematology/Oncology 10/08/22 Financial Solutions Advisor Relationship Specialty Start Date End Date lAisia Pacheco MD [address] [facility] [place] [address] PCP - General Internal Medicine 07/19/12 Arnold Bland [address] [place] [address] Consulting Cardiology 03/15/19 Panda Miller MD [address] [place] [address] [facility] Pulmonary and Critical Care Medicine 08/03/20 Maria Isabel Tay MD [address] [facility] [place] [address] Hematology/Oncology 10/08/22 Financial Solutions Advisor Relationship Specialty Start Date End Date Alisia Pacheco MD [address] [facility] [place] [address] PCP - General Internal Medicine 07/19/12 Arnold Bland [address] [place] [address] Consulting Cardiology 03/15/19 Panda Miller MD [address] [place] [address] [facility] Pulmonary and Critical Care Medicine 08/03/20 Maria Isabel Tay MD [address] [place] [address] Hematology/Oncology 10/08/22 Financial Solutions Advisor Relationship Specialty Start Date End Date Alisia Pacheco MD [address] [facility] [place] [address] PCP - General Internal Medicine 07/19/12 Arnold Bland [address] [place] [address] Consulting Cardiology 03/15/19 Panda Miller MD [address] [place] [address] [facility] Pulmonary and Critical Care Medicine 08/03/20 Maria Isabel Tay MD [address] [place] [address] Hematology/Oncology 10/08/22 Financial Solutions Advisor Relationship Specialty Start Date End Date Alisia Pacheco MD [address] [facility] [place] [address] PCP - General Internal Medicine 07/19/12 Arnold Bland [address] [place] [address] Consulting Cardiology 03/15/19 Panda Miller MD [address] [address] [facility] Pulmonary and Critical Care Medicine 08/03/20 Maria Isabel Tay MD [address] [address] Hematology/Oncology 10/08/22 Financial Solutions Advisor Relationship Specialty Start Date End Date Alisia Pacheco MD [address] [facility] [place] [address] PCP - General Internal Medicine 07/19/12 Arnold Bland [address] [facility] [address] [place] [address] Consulting Cardiology 03/15/19 Panda Miller MD [address] [facility] [place] [address] [facility] Pulmonary and Critical Care Medicine 08/03/20 Maria Isabel Tay MD [address] [facility] [place] [address] Hematology/Oncology 10/08/22 Financial Solutions Advisor Relationship Specialty Start Date End Date Alisia Pacheco MD [address] [facility] [place] [address] PCP - General Internal Medicine 07/19/12 Arnold Bland [address] [facility] [address] [place] [address] Consulting Cardiology 03/15/19 Panda Miller MD [address] [facility] [place] [address] [facility] Pulmonary and Critical Care Medicine 08/03/20 Maria Isabel Tay MD [address] [place] [address] Hematology/Oncology 10/08/22 Financial Solutions Advisor Relationship Specialty Start Date End Date Alisia Pacheco MD [address] [facility] [place] [address] PCP - General Internal Medicine 05/06/23 Financial Solutions Advisor Relationship Specialty Start Date End Date Alisia Pacheco MD [address] [place] [address] PCP - General Internal Medicine 07/19/12 Arnold Bland [address] [place] [address] Consulting Cardiology 03/15/19 Panda Miller MD [address] [place] [address] [facility] Pulmonary and Critical Care Medicine 08/03/20 Maria Isabel Tay MD [address] [place] [address] Hematology/Oncology 10/08/22 Financial Solutions Advisor Relationship Specialty Start Date End Date Alisia Pacheco MD [address] [place] [address] PCP - General Internal Medicine 07/19/12 Arnold Bland [address] [place] [address] Consulting Cardiology 03/15/19 Panda Miller MD [address] [place] [address] [facility] Pulmonary and Critical Care Medicine 08/03/20 Maria Isabel Tay MD [address] [place] [address] Hematology/Oncology 10/08/22 Financial Solutions Advisor Relationship Specialty Start Date End Date Alisia Pacheco MD [address] [place] [address] PCP - General Internal Medicine 07/19/12 Arnold Bland [address] [place] [address] Consulting Cardiology 03/15/19 Panda Miller MD [address] [place] [address] [facility] Pulmonary and Critical Care Medicine 08/03/20 Maria Isabel Tay MD [address] [place] [address] Hematology/Oncology 10/08/22 Financial Solutions Advisor Relationship Specialty Start Date End Date Alisia Pacheco MD [address] [facility] [place] [address] PCP - General Internal Medicine 07/19/12 Arnold Bland [address] [place] [address] Consulting Cardiology 03/15/19 Panda Miller MD [address] [place] [address] [facility] Pulmonary and Critical Care Medicine 08/03/20 Maria Isabel Tay MD [address] [place] [address] Hematology/Oncology 10/08/22 Financial Solutions Advisor Relationship Specialty Start Date End Date Alisia Pacheco MD [address] [place] [address] PCP - General Internal Medicine 07/19/12 Arnold Blnad [address] [place] [address] Consulting Cardiology 03/15/19 Panda Miller MD [address] [place] [address] [facility] Pulmonary and Critical Care Medicine 08/03/20 Maria Isabel Tay MD [address] [place] [address] Hematology/Oncology 10/08/22 Financial Solutions Advisor Relationship Specialty Start Date End Date Alisia Pacheco MD [address] [place] [address] PCP - General Internal Medicine 07/19/12 Arnold Bland [address] [place] [address] Consulting Cardiology 03/15/19 Panda Miller MD [address] [place] [address] [facility] Pulmonary and Critical Care Medicine 08/03/20 Maria Isabel Tay MD [address] [place] [address] Hematology/Oncology 10/08/22 Financial Solutions Advisor Relationship Specialty Start Date End Date Alisia Pacheco MD [address] [place] [address] PCP - General Internal Medicine 07/19/12 Arnold Bland [address] [place] [address] Consulting Cardiology 03/15/19 Panda Miller MD [address] [place] [address] [facility] Pulmonary and Critical Care Medicine 08/03/20 Maria Isabel Tay MD [address] [place] [address] Hematology/Oncology 10/08/22 Financial Solutions Advisor Relationship Specialty Start Date End Date Alisia Pacheco MD [address] [place] [address] PCP - General Internal Medicine 07/19/12 Arnold Bland MD [address] [place] [address] Consulting Cardiology 03/15/19 Panda Miller MD [address] [place] [address] [facility] Pulmonary and Critical Care Medicine 08/03/20 Maria Isabel Tay MD [address] [place] [address] Hematology/Oncology 10/08/22 Financial Solutions Advisor Relationship Specialty Start Date End Date Alisia Pacheco MD [address] [place] [address] PCP - General Internal Medicine 07/19/12 Arnold Bland MD [address] [place] [address] Consulting Cardiology 03/15/19 Panda Miller MD [address] [place] [address] [facility] Pulmonary and Critical Care Medicine 08/03/20 Maria Isabel Tay MD [address] [place] [address] Hematology/Oncology 10/08/22 Financial Solutions Advisor Relationship Specialty Start Date End Date Alisia Pacheco MD [address] [facility] [place] [address] PCP - General Internal Medicine 07/19/12 Arnold Bland MD [address], [place] [address] Consulting Cardiology 03/15/19 Panda Miller MD [address] [address] [facility] Pulmonary and Critical Care Medicine 08/03/20 Maria Isabel Tay MD [address] [place] [address] Hematology/Oncology 10/08/22 Financial Solutions Advisor Relationship Specialty Start Date End Date Alisia Pacheco MD [address] [place] [address] PCP - General Internal Medicine 10/28/23 FOR [...] BE BASED ON THE PRIMARY CLINICAL RECORDS. [employer] [facility]. provides no warranty or guarantee of the accuracy or completeness of information in this document.
[2023-12-26 00:04] LABS: Anion Gap 7 (5-15); BUN 19 mg/dL (7-18); BUN/Creat Ratio 22.9 RATIO (10-20); Chloride 110 mmol/L (98-107); Creatinine, Serum 0.83 mg/dL (0.55-1.02); EST Glomerular Filtration Rate 70 mL/min (>60); Est Glom Filt Rate - Afr Amer 84 mL/min (>60); Estimated Creatinine Clearance 47.23 ml/min; Glucose 112 mg/dL (74-106); Potassium 4.1 mmol/L (3.5-5.1); Sodium Level 140 mmol/L (136-145)
--- NOTE | 2023-12-26 00:38 | EDS_ITS ---
HPI History of Present Illness Chief Complaint: Hypertension Informant: patient Narrative Narrative: Patient 83-year-old female who lives at home and has a past medical history of hypertension as well as atrial fibrillation on Coumadin. She states her blood pressure typically runs roughly 150/100 and that she has had a change in her medications. She states that she is concerned about her blood pressure so therefore she checks it often. She states that she has noticed that it has been elevated above her baseline for the past few days intermittently. She reports she is taking her medications as directed and denies any excessive stimulant use or illicit drug use. She states she does not have any symptoms such as chest pain or headache or change in vision with this but based on her blood pressure reading high she was concerned and therefore comes to the hospital for evaluation. 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) LBBB (left bundle branch block) Long QT interval Non-Hodgkin lymphoma Nonrheumatic mitral (valve) insufficiency On home oxygen therapy Pacemaker Paroxysmal atrial fibrillation Paroxysmal atrial fibrillation Persistent atrial fibrillation Polyp, sigmoid colon Presence of permanent cardiac pacemaker (~12/10/21) Sick sinus syndrome Urinary retention Home Medications magnesium oxide 400 mg PO DAILY supplement 04/06/19 [History Last Taken 06/26/23] gabapentin 100 mg capsule 300 mg PO BID NERVE PAIN 10/04/22 [History Last Taken 06/25/23] acetaminophen 500 mg tablet 1,000 mg (2 x 500 mg) PO Q8 #0 tabs 01/26/23 [Rx Last Taken 06/26/23] furosemide 40 mg tablet 40 mg PO DAILY #90 tabs 05/18/23 [Rx Last Taken 0 06/26/23] buprenorphine 5 mcg/hour weekly transdermal patch 1 patch topical Q7D PAIN 06/26/23 [History Last Taken 06/24/23] oxycodone 5 mg tablet 5 mg PO Q12H PRN 08/21/23 [History Last Taken Unknown] metoprolol succinate 100 mg tablet,extended release 24 hr 100 mg PO DAILY Blood pressure #90 tabs 09/04/23 [Rx Last Taken Unknown] warfarin 3 mg tablet 3 mg PO .COMPLEX #90 tabs 10/07/23 [Rx Last Taken Unknown] amlodipine 5 mg tablet 5 mg PO DAILY this is a dose increase #90 tabs 12/30/23 [Rx Last Taken Unknown] lisinopril 20 mg tablet 20 mg PO BID #180 tabs 12/30/23 [Rx Last Taken Unknown] Allergy/AdvReac Type Severity Reaction Status Date / Time allopurinol Allergy upset gi Verified 12/25/23 22:54 tramadol AdvReac dizzy Verified 12/25/23 22:54 Family History (Reviewed 11/30/23 @ 13:54 by Ladi Barrett SPECIAL DELIVERY MAIL CARRIER, SPECIAL DELIVERY MAIL CARRIER-C) Father Heart disease Hypertension Mother No cardiac disease Surgical History H/O cardiac radiofrequency ablation History of bladder surgery History of cardioversion (~04/25/20) History of left heart catheterization (LHC) (~11/30/17) History of mitral valve repair (~07/30/18) History of ventricular septal myectomy (~07/30/18) Social History (Reviewed 11/30/23 @ 13:54 by Ladi Barrett SPECIAL DELIVERY MAIL CARRIER, SPECIAL DELIVERY MAIL CARRIER-C) household members: none Smoking Status: Former smoker pack-years: 58 how long ago did patient quit smokin years ago alcohol intake: never substance use type: does not use caffeine: No what type of physical activity do you participate in: walking ROS ROS ED Constitutional Constitutional ED: Denies chills or fever(s) Eyes Eyes: Denies change in vision ENT ENT ED: Denies sore throat Cardiovascular Cardiovascular: Denies chest pain Respiratory/Chest Respiratory/Chest: Denies cough or dyspnea Gastrointestinal Gastrointestinal: Denies abdominal pain, diarrhea, nausea or vomiting Genitourinary Genitourinary ED: Denies dysuria Musculoskeletal Musculoskeletal: Denies myalgias Integumentary Denies rash Neurologic Neurologic: Denies headache(s), paresthesias or weakness Hematologic/Lymphatic Hematologic/Lymphatic: Reports easy bleeding and easy bruising EXAM Physical Exam Const Vital Signs: 12/25/23 22:55 Temperature 98.4 F Temperature Source Oral Pulse Rate 90 Respiratory Rate 17 Blood Pressure 168/92 H Blood Pressure Mean 117 Pulse Ox 93 Positive well nourished and well developed General Appearance ED: well developed HEENT HEENT Narrative: Normocephalic atraumatic Eyes PERRL and EOMs intact bilaterally Neck supple Resp normal respiratory effort and clear to auscultation bilaterally Cardio regular rate Rate: other Other Details: Irregularly irregular rhythm with regular rate consistent with history of atrial fibrillation GI normal to inspection, nondistended, normoactive bowel sounds, non-tender, non- distended and no masses GI Narrative: No voluntary guarding or rigidity or pulsatile mass Auscultation: normoactive bowel sounds Palpation: soft Extremity normal to inspection Extremity Narrative: No asymmetric edema no pitting edema negative Homans' sign bilaterally Neuro oriented x3, CN's II-XII intact bilaterally and no sensory deficits noted Neuro Narrative: Cranial nerves II through XII are grossly intact without focal neurologic deficit No pronator drift no dysmetria no truncal ataxia NIH stroke scale score of 0 Sensorium / Orientation: alert Psych Psych Narrative: Patient has a nervous/anxious affect Skin no rashes or lesions noted MDM MDM MDM Narrative Medical decision making narrative: Patient arrived to the ER hypertensive but reportedly near her baseline blood pressure value and otherwise with stable vitals. She has a known history of hypertension and states has been a recent medication change and she states she has been taking her medication as directed without cause for exogenous hypertension such as excessive stimulant or illicit drug use. She had no symptoms reported such as headache change in vision chest pain abdominal pain but in order to rule out endorgan damage change basic labs were obtained. Labs revealed no clinically significant findings and patient's EKG revealed no signs of ischemia. Therefore at this time without signs of endorgan damage and patient having her blood pressure near her baseline I do not feel there is need for admission and she can continue her medications follow-up with the central office repairer as directed. Patient feels comfortable with this plan is therefore discharged home History & Record Review Discussion w/independent historian: Patient Lab Data Attestation: I reviewed the patient's lab results. Labs: Laboratory Results - last 24 hr 12/25/23 23:28 Sodium 140 Potassium 4.1 Chloride 110 H Carbon Dioxide 23.0 Anion Gap 7 BUN 19 H Creatinine 0.83 Estim Creat Clear Calc 47.23 Est GFR (MDRD) Af Amer 84 Est GFR (MDRD) Non-Af 70 BUN/Creatinine Ratio 22.9 H Glucose 112 H Calcium 9.0 Discharge Plan Triage Chief Complaint: Hypertension ED Provider: Jeremy Mendez Dx/Rx/DC Orders Clinical Impression: Hypertension, Atrial fibrillation, Current use of prison anticoagulation Instructions: Controlling High Blood Pressure, ED Hypertension, Established Prescriptions: No Action magnesium oxide 400 mg magnesium tablet 400 mg PO DAILY gabapentin 100 mg capsule 300 mg PO BID acetaminophen 500 mg Tablet 1,000 mg PO Q8 Qty: 0 0RF buprenorphine 5 mcg/hour patch weekly 1 patch topical Q7D Patient Comments: Apply 1 (ONE) patch transdermally EVERY WEEK FOR 28 DAYS oxycodone 5 mg tablet 5 mg PO Q12H PRN Patient Comments: TAKE 1 TABLET BY MOUTH TWICE DAILY FOR 28 DAYS furosemide 40 mg tablet 40 mg PO DAILY Qty: 90 3RF metoprolol succinate 100 mg tablet extended release 24 hr 100 mg PO DAILY Qty: 90 3RF warfarin 3 mg tablet 3 mg PO .COMPLEX Qty: 90 3RF Protocol: Dose Management Condition: Thursday Dose/Route: 1.5 mg Instruction: 0.5 x 3 mg tablets Condition: Thursday Dose/Route: 1.5 mg Instruction: 0.5 x 3 mg tablets Condition: Thursday Dose/Route: 1.5 mg Instruction: 0.5 x 3 mg tablets Condition: Thursday Dose/Route: 3 mg Instruction: 1 x 3 mg tablet Condition: Dose/Route: 3 mg Instruction: 1 x 3 mg tablet Condition: Thursday Dose/Route: 1.5 mg Instruction: 0.5 x 3 mg tablets Condition: Thursday Dose/Route: 1.5 mg Instruction: 0.5 x 3 mg tablets Protocol Text: Adjustment Start Date: Thursday12/30/23 INR Value: 2.7 INR Date: 12/30/23 Recheck Date: 01/13/24 Rx Instructions: 3 mg orally take 1/2 tablet (1.5mg) Thursday through Thursday; and take a whole tablet (3mg) on Thu and Thursday, OR DIRECTED; Please give extra pills for dose changes. lisinopril 20 mg tablet 20 mg PO BID Qty: 180 3RF amlodipine 5 mg tablet 5 mg PO DAILY Qty: 90 3RF Primary Care Provider: Cheyanne Holt Referrals: Cheyanne Holt MD [Primary Care Provider] - Activity Restrictions/Additional Instructions: Please continue all of your home medications as directed by your family doctor. Please only check your blood pressure once a day or every few days. If you have any further concerns or worsening symptoms please return to the ER for repeat evaluation Disposition Disposition: Home, Self Care Discharge Date/Time: 12/26/23 01:03
[2023-12-26 01:02] VITALS: BP 180/93; PULSE 60; RESP 17; TEMP 36.4; O2SAT 96
== END 2023-12-26 01:03 | disposition home or self-care (01) ==
PROVIDERS: Emergency Provider Emergency Medicine; PCP Internal Medicine; Visit Provider Emergency Medicine
DX: I11.0 Hypertensive heart disease with heart failure (principal); J44.9 Chronic obstructive pulmonary disease, unspecified; I50.32 Chronic diastolic (congestive) heart failure; I48.0 Paroxysmal atrial fibrillation; Z79.01 Long term (current) use of 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; Z79.899 Other long term (current) drug therapy; Z87.891 Personal history of nicotine dependence; Z95.0 Presence of cardiac pacemaker; Z99.81 Dependence on supplemental oxygen
CPT/HCPCS: 80048; 93005; 99282; A4216

== ENCOUNTER → 2023-12-30 | Outpatient (CLI) | payer MEDICARE, SELFPAY ==
--- OUTSIDE RECORDS SUMMARY | 2023-12-30 05:17 | XMS RPT_ITS | CCD ---
Author Name Unknown Address [address] [place] [address] Organization [facility] Care Team Providers Care Transportation Design Engineer Name Role Phone Belle RN, Mayte Jacobson [...] Pacheco MD Primary Care Provider TALAMPAS ALISIA, ALISIA~[phone] TALAMPAS Primary Care Unavailable PETER LEE Attending [...] allopurinol; Translations: [ALLOPURINOL] Drug Allergy 7 Rash [facility] Repository (20 sources) traMADol; Translations: [TRAMADOL] Drug Allergy 6 Other: See Comments [facility] Repository (3 sources) OTHER; Translations: [OTHER] Propensity to adverse reactions (disorder) 6 [facility] Repository (20 sources) environmental [Other] Propensity to adverse reactions 6 Intolerance [facility] Work Phone: Medications Current Medications Medication [...] Coronary arteriosclerosis; Translations: [Atherosclerotic heart disease of [place] coronary artery without angina pectoris] Onset: 0 [...] sources) Long-term current use of anticoagulant; Translations: [[facility] (current) use of 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] Onset: 9 08-03-2020 Episodic Other aftercare (1 source) Patient encounter status; Translations: [Other shelter (current) drug therapy] Episodic Other circulatory disease [...] Onset: 3 Episodic Other aftercare (2 sources) [facility] (current) use of 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; Translations: [Anticoagulant long-term use] Onset: 3 Episodic Other aftercare (1 source) 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; Translations: [Encounter for long-term [...] 102 mm[Hg] Alisia Pacheco MD Work Phone: [facility] Encounters Encounter Date Encounter Type Care Provider Facility Start: 12-02-2023 End: 12-02-2023 ambulatory ALISIA PACHECO Facility:[facility] Start: 10-28-2023 End: 10-29-2023 Emergency department patient visit ALISIA~[id number] JUNIOR CRUMP [facility] Start: 10-28-2023 End: 10-28-2023 Emergency department patient visit Alisia Pacheco MD Work Phone: [facility] Emergency Room Procedures Date Procedure Procedure Detail [...] et rgnt auto w/o microscopy Ronen Valentin RECRUITING ASSOCIATE Work Phone: Start: 02-16-2023 Ecg routine ecg w/le ast 12 lds w/i&r Tex Johnson HISTOLOGY TEACHER.RECRUITING ASSOCIATE Work Phone: Start: 12-20-2022 Urnls dip stick/tabl et rgnt auto w/o microscopy Lou Pascual HISTOLOGY TEACHER.RECRUITING ASSOCIATE Work Phone: Start: 11-21-2022 Ecg routine ecg w/le ast 12 lds w/i&r Bebeto Chaudhary MD Work Phone: Start: 09-22-2022 Noninvasive ear/puls e oximetry multiple deter Aaliyah Stone PA-C Work Phone: Start: 05-01-2022 Spmtry w/vc expirato ry wendy w/wo mxml vol vntj Aaliyah Stone PA-C Work Phone: Start: 04-08-2022 Urnls dip stick/tabl et rgnt auto w/o microscopy Jerad Bales HISTOLOGY TEACHER.CALENDER WORKER HELPER Work Phone: Start: 04-02-2022 Us abdominal real ti me w/image limited Maria Isabel Tay MD Work Phone: Start: 03-22-2022 Urnls dip stick/tabl et rgnt auto w/o microscopy Pina Singleton HISTOLOGY TEACHER.RECRUITING ASSOCIATE Work Phone: Plan of Treatment Date Care Activity Detail Author Start: 02-07-2026 Diabetes Screening Diabetes Screenin tyler [facility] Start: 11-10-2025 DIABETES SCREEN DIABETES SCREEN [facility] Start: 11-10-2025 Diabetes Screening Diabetes Screenin g [facility] Start: 07-10-2025 DIABETES SCREEN DIABETES SCREEN [facility] Start: 04-02-2025 DIABETES SCREEN DIABETES SCREEN [facility] Start: 10-28-2024 Falls Risk Assessment Falls Risk Ass essment [facility] Start: 10-28-2024 Hypertension/CHF/CAD Annual BMP Blood Test Hypertension/CHF/CAD Annual BMP Blood Test [facility] Start: 10-20-2024 Covid-19 Vaccine () Covid-19 Vaccine () [facility] Immunizations Immunization Date Immunization Notes Care Provider Sandra leslie 09-12-2021 COVID-19 original vaccine, full dose, monovalent (MODERNA) Respiratory Wstr Work Phone: [facility] Work Phone: 09-02-2021 influenza, high-dose , quadrivalent vaccine (FLUZONE HIGH DOSE QUADRIVALENT) Daniel Mcclelland MD Work Phone: [facility] 09-02-2021 influenza virus vaccine, unspecified formulation Jerad Bales CALENDER WORKER HELPER Work Phone: [facility] 12-21-2020 COVID-19 vaccine, fu ll dose (MODERNA) Daniel Mcclelland MD Work Phone: [facility] Work Phone: 11-23-2020 COVID-19 vaccine, fu ll dose (MODERNA) Daniel Mcclelland MD Work Phone: [facility] Work Phone: 07-16-2020 influenza, high-dose , quadrivalent vaccine (FLUZONE HIGH DOSE QUADRIVALENT) Daniel Mcclelland MD Work Phone: [facility] 07-11-2019 influenza, high dose seasonal, preservative-free Daniel Mcclelland MD Work Phone: [facility] 08-03-2018 influenza, high dose seasonal, preservative-free Daniel Mcclelland MD Work Phone: [facility] 08-18-2017 influenza, high dose seasonal, preservative-free Daniel Mcclelland MD Work Phone: [facility] 09-01-2015 pneumococcal conjuga te vaccine, 13 valent Daniel Mcclelland MD Work Phone: [facility] 07-17-2015 influenza, seasonal, injectable Daniel Mcclelland MD Work Phone: [facility] 08-23-2013 influenza, high dose seasonal, preservative-free Daniel Mcclelland MD Work Phone: [facility] 08-23-2013 influenza, seasonal, injectable Bebeto Chaudhary MD Work Phone: [facility] Work Phone: 08-23-2013 influenza, seasonal, injectable, preservative free Daniel Mcclelland MD Work Phone: [facility] 07-19-2012 tetanus and diphther ia toxoids, adsorbed, preservative free, for adult use (2 Lf of tetanus toxoid and 2 Lf of diphtheria toxoid) Daniel Mcclelland MD Work Phone: [facility] 07-17-2012 influenza virus vaccine, unspecified formulation Daniel Mcclelland MD Work Phone: [facility] Work Phone: 06-13-2010 pneumococcal polysaccharide vaccine, 23 valent Daniel Mcclelland MD Work Phone: [facility] Work Phone: 11-02-1994 tetanus and diphther ia toxoids, adsorbed, preservative free, for adult use (2 Lf of tetanus toxoid and 2 Lf of diphtheria toxoid) Daniel Mcclelland MD Work Phone: [facility] Work Phone: Payers Date Payer Category Payer Medicare AETNA MEDICARE A ETNA MEDICARE PPO [id number] 2021-Present [phone] [address] [place] [address] PPO [id number] 2021 Medicare [id number] 2014 Medicare 1940 Unknown [id number] 1940 Unknown [id number] Unknown [id number] Social History Date Type Detail Facility Start: 04-28-2019 End: 10-28-2023 Tobacco smoking status NHIS Ex-smoker [facility] Start: 1956 End: 07-02-2005 History of tobacco use Current smoker [facility] Work Phone: Start: 1956 End: 07-02-2005 History of tobacco use Cigarette Smoker [facility] Work Phone: Start: 02-09-2022 End: 10-28-2023 Alcohol intake Current drinker of alcohol (finding) [facility] Start: 06-10-2018 History SDOH Alcohol Comment occasional [facility] Start: 07-02-2017 End: 07-10-2022 Tobacco Comment No smoking in childhood home. Spouse quit smoking years before patient did. [facility] Start: 1940 Sex Assigned At Not on file [facility] Start: 01-30-2022 End: 09-22-2022 Exposure to SARS-CoV-2 (event) Not sure [facility] Start: 04-28-2019 End: 04-07-2023 Cigarettes smoked current (pack per day) - Reported 1 [facility] Work Phone: Start: 04-28-2019 End: 10-28-2023 Tobacco use and exposure Smokeless tobacco non-user [facility] Start: 05-06-2023 Tobacco smoking stat us HIIS Never smoked tobacco [facility] Start: 04-07-2023 End: 07-01-2023 Gender identity Not on file [facility] Work Phone: Adult Depression Screening Assessment 0 [facility] Work Phone: Start: 10-05-2023 Alcohol intake Ex-drinker (finding) [facility] Medical Equipment Procedure Code Equipment Code Equipment Original Text Equipment Identifier Dates [place] Thk1.65mm P tfe 4x.5in Cardiovascular Sterile - [id number] Start: 07-30-2018 Clinical Notes 08-01-2018 to 12-02-2023 Discharge SAM Manrique - 10/28/2023 5:50 PM SAM García - 10/28/2023 5:45 PM ESTTelephone Jenny - Linda Elmore RN - 10/21/2023 11:44 AM ESTAttachments Note Date & Type Note Facility 12-02-2023 Note HNO ID: [id number] Author: ZHOU CAMACHO PA-C Service: ? Author Type: Physician Calender Roll Press Operator Type: Progress Notes Filed: 12/02/2023 12:38 Note Text: This note was created using [employer]riter. 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 09/2001 Nonrheumatic mitral valve regurgitation Osteoporosis Pacemaker-dependent due to [place] cardiac rhythm insufficient to support life Permanent atrial fibrillation (HCC) 11/21/2022 Permanent atrial fibrillation with rapid ventricular response (HCC) 11/21/2022 Persistent atrial fibrillation (HCC) Presence of permanent cardiac pacemaker 01/15/2022 [facility] single chamber pacemaker; indication: symptomatic tachycardia-bradycardia syndrome [...] mg SUBCUTANEOUS Q 6 MONTH Jerad Bales, HISTOLOGY TEACHER.CALENDER WORKER HELPER 60 mg at 08/24/23 1558 PAST SURGICAL HISTORY Procedure Laterality Date ABLATE AV NODE FUNCTION 01/02/2023 RF catheter ablation of AV node; indication: drug refractory atrial fibrillation; [facility] Dr. Chaudhary BLADDER SURGERY HX 2004 tumor removed from bladder CARDIOVERSION ELECTIVE ARRHYTHMIA INTERNAL SPX 04/2019 CARDIOVERSION ELECTIVE ARRHYTHMIA INTERNAL SPX 04/24/2020 [facility] CARDIOVERSION ELECTIVE ARRHYTHMIA INTERNAL SPX 05/2017 CARDIOVERSION ELECTIVE ARRHYTHMIA INTERNAL SPX 10/2017 CARDIOVERSION ELECTIVE ARRHYTHMIA INTERNAL SPX 10/2018 HEART VALVE REPAIR 07/2018 SEPTAL MYECTOMY AND MVP WITH ANNULOPLASTY WITH A #33 RM BAND, B/L PULMONARY VEIN ISOLATION WITH MULTIPLE OCCASIONA SOF THE ARTICURE RADIOFREQUENCY CLAMP AND CLIPPING OF THE LEF (more content not included)... [facility] 10-28-2023 Hospital Discharge instructions SAM Anders - 10/28/2023 9:58 PM EST Follow-up with your flame hardener when you get home, return to the emergency department if you are having any worsening symptoms. documented in this encounter [facility] 10-28-2023 History of Present illness Narrative [facility] Patient Name: Michelle Sharpe Initial Evaluation: [...] now over the holidays she is from [facility]. We will obtain CBC, BMP, troponin, EKG, [...] pain in her chest. Does have a [employer] OTR pacer in place, it is NOT a [...] and gets all her care up at [facility] the [facility] where she lives. 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 Patient asking if provider can send in this prescription to [facility]. Please review and advise, Linda Elmore RN documented in this encounter [facility] 10-20-2023 Note HNO ID: [id number] Author: ALISIA PACHECO MD Service: ? Author Type: Physician Type: Progress Notes Filed: 11/06/2023 00:09 Note Text: This note was created using [employer]. 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 [facility] 10-05-2023 Note HNO ID: [id number] Author: Peter Lee MD Service: ? Author Type: Physician Type: Progress Notes Filed: 10/06/2023 11:48 PM Note Text: This note was created using NoteWriter. Subjective Michelle Sharpe is a 83 year old female. She had been dealing with recurrent loose diarrhea, non bloody for 2 months, reminiscent of previous irritable bowel. She had been seen by AEROLOGIST one month ago, and had been Express [...] Failure (Hcc) Hyperlipidemia Left Bundle Branch Block Varnish Finisher Current Use of Anticoagulant Therapy Malignant Neoplasm [...] Atrioventricular Miguel Ablation (Hcc) Pacemaker-Dependent Due to [place] Cardiac Rhythm Insufficient to Support Life Current [...] instructed to go to lab tomorrow and pickup driver specimen containers. - Continue imodium as needed. - Avoid dairy for now, or take Lactaid as needed. Peter Lee MD [facility] 10-03-2023 Note HNO ID: [id number] Author: Daniel Mcclelland MD Service: ? Author [...] the lab open and schedule with GI. [facility] 09-23-2023 Note HNO ID: [id number] Author: Aaliyah Stone PA-C Service: ? Author Type: Physician Calender Roll Press Operator Type: Progress Notes Filed: 09/23/2023 2:29 PM [...] pain. No lower extremity edema. Follows with [facility]. 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 [facility] 09-11-2023 Miscellaneous Notes noted Patient phoned asking pcp what should she do with the metoprolol. Reports she hasn't taken it yet. Patient thinks pcp prescribed it. Advised patient to tell me what doctor's name is on the bottle. Patient reports Dr. Jeffrey's name is on the bottle. Dr. Jeffrey is with [facility]. Advised patient to call Dr. Jeffrey with this question and let us know if he wants her to take it. Patient agreeable. documented in this encounter [facility] 09-11-2023 Note HNO ID: [id number] Author: Jerad Bales APRN.CALENDER WORKER HELPER Service: ? Author Type: Nurse Specialist Type: [...] Failure (Hcc) Hyperlipidemia Left Bundle Branch Block Varnish Finisher Current Use of Anticoagulant Therapy Malignant Neoplasm [...] Atrioventricular Miguel Ablation (Hcc) Pacemaker-Dependent Due to [place] Cardiac Rhythm Insufficient to Support Life Presents [...] sparingly to perineum (more content not included)... [facility] 09-11-2023 Instructions Jerad Bales APRN.CNS - 09/11/2023 3:16 PM EST Okay to use Imodium as needed for loose stools. Okay to use Tagamet if you are finding this helpful for loose stools. 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 No daily diarrhea. She took alwt-jpa-pgrvncy Tagamet and seem to help. Okay to continue with this if she would like. Recommend take either famotidine or cimetidine. Okay to use Imodium onhq-kwz-hcqohuz per package directions if needed. If becomes more frequent then recommend further follow-up, stool testing, referral to gastroenterology. - C. DIFFICILE PCR - ENTERIC BACTERIAL PANEL BY PCR Jerad Bales APRN.CALENDER WORKER HELPER Medical Decision Making: Problems: Low: Acute, uncomplicated illness or injury Risk: Moderate: Drug management Medical Decision Making Level: 3 - Low documented in this encounter [facility] 09-04-2023 Miscellaneous Notes Patient return ed [...] you. Aaliyah Ray. documented in this encounter [facility] 08-24-2023 Note HNO ID: [id number] Author: Silvia Lima LPN Service: ? Author Type: ? Type: Progress Notes Filed: 08/24/2023 3:58 PM Note Text: Patient presents for Prolia injection. Denies any problems at this time. Patient instructed on any SE of medication, verbalized understanding and agreed to proceed with treatment. Tolerated injection well. Silvia Lima LPN [facility] 08-24-2023 History of Present illness Narrative Patient presents for Prolia injection. Denies any problems at this time. Patient instructed on any SE of medication, verbalized understanding and agreed to proceed with treatment. Tolerated injection well. Silvia Lima LPN documented in this encounter [facility] 08-17-2023 Miscellaneous Notes ok Patient scheduled for nurse visit 08/24/23 to receive Prolia. Please place order at this time. Silvia Lima LPN documented in this encounter [facility] 07-30-2023 Note HNO ID: [id number] Author: Jerad Bales APRN.CALENDER WORKER HELPER Service: ? Author Type: Nurse Specialist Type: [...] Failure (Hcc) Hyperlipidemia Left Bundle Branch Block Varnish Finisher Current Use of Anticoagulant Therapy Malignant Neoplasm [...] Atrioventricular Miguel Ablation (Hcc) Pacemaker-Dependent Due to [place] Cardiac Rhythm Insufficient to Support Life Returns to clinic today for ear lavage. Notes she used Debrox as advised. HPI excerpted from previous visit: Followed by Dr Chaudhary EP AG/CC and [facility]. She is status post AV miguel catheter ablation with Dr. Chaudhary on January 02, 2023. 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 Notes reviewed paroxysmal atrial fibrillation rate controlled on systemic anticoagulation, Coumadin followed by [facility]. Sick sinus syndrome status post pacemaker placement. Congestive heart failure with ejection fraction 35% on echo completed October 14, 2022. Echocardiogram advised. Possible MRI or CT to be completed. She notes she did not have a stroke. Hip fracture earlier this year, seen at [facility] shortly thereafter. She reports hip has healed well. She notes chronic back pain, interested in ablation for her back however due to her pacemaker does not think she can do this.. Sees Dr Rodríguez [facility] for pain management. Some difficulty with [...] soft. Musculoskeletal: Rig (more content not included)... [facility] 07-23-2023 Note HNO ID: [id number] Author: Jerad Bales APRN.CALENDER WORKER HELPER Service: ? Author Type: Nurse Specialist Type: [...] Failure (Hcc) Hyperlipidemia Left Bundle Branch Block Usp Current Use of Anticoagulant Therapy Malignant Neoplasm [...] Atrioventricular Miguel Ablation (Hcc) Pacemaker-Dependent Due to [place] Cardiac Rhythm Insufficient to Support Life Followed by Dr Chaudhary EP AG/CC and [facility]. She is status post AV miguel catheter ablation with Dr. Chaudhary on January 02, 2023. 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 Notes reviewed paroxysmal atrial fibrillation rate controlled on systemic anticoagulation, Coumadin followed by [facility]. Sick sinus syndrome status post pacemaker placement. Congestive heart failure with ejection fraction 35% on echo completed October 14, 2022. Echocardiogram advised. Possible MRI or CT to be completed. She notes she did not have a stroke. Hip fracture earlier this year, seen at [facility] shortly thereafter. She reports hip has healed well. She notes chronic back pain, interested in ablation for her back however due to her pacemaker does not think she can do this.. Sees Dr Rodríguez [facility] for pain management. Some difficulty with [...] by mouth once (more content not included)... [facility] 07-23-2023 Instructions Jerad Bales APRN.CNS - 07/23/2023 2:25 PM EDT Consider the flu shot, covid booster, Tdap and shingles vaccine either at your local pharamcy or in clinic documented in this encounter [facility] 07-23-2023 History of Present illness Narrative [...] Failure (Hcc) Hyperlipidemia Left Bundle Branch Block Usp Current Use of Anticoagulant Therapy Malignant Neoplasm [...] Atrioventricular Miguel Ablation (Hcc) Pacemaker-Dependent Due to [place] Cardiac Rhythm Insufficient to Support Life Followed by Dr Chaudhary EP AG/CC and [facility]. She is status post AV miguel catheter ablation with Dr. Chaudhary on January 02, 2023. 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 Notes reviewed paroxysmal atrial fibrillation rate controlled on systemic anticoagulation, Coumadin followed by [facility]. Sick sinus syndrome status post pacemaker placement. Congestive heart failure with ejection fraction 35% on echo completed October 14, 2022. Echocardiogram advised. Possible MRI or CT to be completed. She notes she did not have a stroke. Hip fracture earlier this year, seen at [facility] shortly thereafter. She reports hip has healed well. She notes chronic back pain, interested in ablation for her back however due to her pacemaker does not think she can do this.. Sees [facility] for pain management. 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 Ventricular paced rhythm on most recent EKG. 9. Spinal stenosis of lumbar region with radiculopathy - ICD9: 724.02, 724.4, ICD10: M48.061, M54.16 - PREDNISONE 10 MG TABLET 1 week follow up Jerad Bales APRN.CALENDER WORKER HELPER schedule follow up hematology oncology - Nov [...] 4 - Moderate documented in this encounter [facility] 07-13-2023 Note HNO ID: [id number] Author: Jerad Medina RN Service: ? Author [...] Patient High CostTotal Patient High Cost {HIGH COST:707966) Quality measure review Payor request for assistance Action Taken: No action needed Jerad Medina RN July 13, 2023 12:22 PM [facility] 07-13-2023 Note Patient Outreach (AM [facility]) MICHELLE SHARPE ([id number]) 1940 F Date Time Provider Department 07/13/23 JERAD MEDINA [facility] During your visit today, we recorded the following information about you: Jerad Medina RN 07/13/2023 12:25 PM Signed [facility] NURSE - CHART REVIEW Provider DIANA PCC Action Chart review. Patient engaged with non [facility] primary care physician. No action needed Pt identified by name and . Reason for Review: Payor request Patient Attributed To: ANTHONY Payer: JOE Chart Review For: Utilization: ED Total Patient High CostTotal Patient High Cost {HIGH COST:847564) Quality measure review Payor request for assistance Action Taken: No action needed Jerad Mdeina RN July 13, 2023 12:22 PM Allergies [...] 08/03/2020 Left bundle branch block [I44.7] 08/03/2020 [facility] current use of anticoagulant therapy *02/18/2019 Malignant neoplasm of urinary bladder (HCC) (more content not included)... [facility] 07-13-2023 History of Present illness Narrative [facility] N[facility] - CHART REVIEW Provider DIANA PCC Action Chart review. Patient engaged with non [facility] primary care physician. No action needed Pt identified by name and . Reason for Review: Payor request Patient Attributed To: VANESSAE Payer: JOE Chart Review For: Utilization: ED Total Patient High CostTotal Patient High Cost {HIGH COST:554733) Quality measure review Payor request for assistance Action Taken: No action needed Jerad Medina RN July 13, 2023 12:22 PM documented in this encounter [facility] 07-01-2023 Note HNO ID: [id number] Author: Alisia Pacheco MD Service: ? Author [...] visit. HPI Patient presents with: Hospital F/U: [facility] Hospital discharge 06/27/23 for High Blood Pressure See additional documentation in other note [facility] 07-01-2023 Note HNO ID: [id number] Author: Alisia Pacheco MD Service: ? Author Type: Physician Type: Progress Notes Filed: 08/02/2023 11:52 PM Note Text: This note was created using [employer]riter. Subjective Michelle Sharpe is a 83 year old female. 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 [facility] 07-01-2023 History of Present illness Narrative Transitional [...] visit. HPI Patient presents with: Hospital F/U: [facility] Hospital discharge 06/27/23 for High Blood Pressure See additional documentation in other note This note was created using [employer]riter. Subjective Michelle Sharpe is a 83 year old female. 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 Permanent atrial fibrillation ([facility]) 11/21/2022 Permanent atrial fibrillation with rapid ventricular response ([facility]) 11/21/2022 Persistent atrial fibrillation (HCC) Presence of permanent cardiac pacemaker 01/15/2022 [employer] single chamber pacemaker; indication: symptomatic tachycardia-bradycardia syndrome Pulmonary emphysema ([facility]) 05/26/2017 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 Monson [...] since swelling might be affecting proprioception. See hand plug shaper as needed. Try support socks. 5. Dizziness [...] Alisia Pacheco MD documented in this encounter [facility] 07-01-2023 Instructions Alisia Pacheco MD - [...] of stomach upset. documented in this encounter [facility] 04-20-2023 Miscellaneous Notes Was this taken care of? Home care Certification Form 485 received from [facility] [email or web address]. For cert dates 02/17/2023-04/17/2023 that were signed on 03/04/2023. New Certification Patient's home health 485 form / care plan for stated certification period reviewed and signed. Relevant medical records were reviewed. No changes were indicated documented in this encounter [facility] 04-10-2023 Miscellaneous Notes Home care Certification Form 485 received from [facility]. For cert dates 01/31/2023-03/31/2023 that were signed on 02/12/2023. New Certification Patient's home health 485 form / care plan for stated certification period reviewed and signed. Relevant medical records were reviewed. No changes were indicated documented in this encounter [facility] 04-07-2023 Note HNO ID: [id number] Author: Alisia Pacheco MD Service: ? Author Type: Physician Type: Progress Notes Filed: 05/06/2023 12:04 AM Note Text: This note was created using [employer]riter. Subjective Michelle Sharpe is a 83 year old female. Patient presents with: ED Follow-up SUBJECTIVE: Michelle Sharpe is a 83 year old year old lady here today for ER follow up appointment for review of medical conditions. Seen in ER 03/26/23 at [facility] for Dyspnea and right sided chest pain. [...] AM. Theraworx does help legs. Noted that [facility] discharged her and told her they will no longer cover for home INR. Coumadin and INRs are managed by Dr. Souza. States that someone from [facility] would call here. No telephone encounters entered. 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 ipratropi (more content not included)... [facility] 04-07-2023 History of Present illness Narrative This note was created using [employer]. Subjective Michelle Sharpe is a 83 year old female. Patient presents with: ED Follow-up SUBJECTIVE: Michelle Sharpe is a 83 year old year old lady here today for ER follow up appointment for review of medical conditions. Seen in ER 03/26/23 at [facility] for Dyspnea and right sided chest pain. [...] AM. Theraworx does help legs. Noted that [facility] discharged her and told her they will no longer cover for home INR. Coumadin and INRs are managed by Dr. Souza. States that someone from [facility] would call here. No telephone encounters entered. 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 Claudication of both lower extremities ([facility]) I73.9 7. Moderate COPD (chronic obstructive pulmonary disease) ([facility]) J44.9 Above issues addressed with patient. Patient [...] Alisia Pacheco MD documented in this encounter [facility] 03-02-2023 History of Present illness Narrative Images from the original note were not included. Patient Name: [facility] Location: [place] [address] [place] [id number] Date Of : Date Of Visit: 1940 05/06/2023 MRN# Provider: [id number] Ronen Valentin CNP Chief Complaint Patient presents [...] repeat urine testing. documented in this encounter [facility] 03-02-2023 Instructions Ronen Valentin CNP - [...] through Care Everywhere.UTI (Urinary Tract Infection): Female (Bruneian)documented in this encounter [facility] 02-16-2023 Note HNO ID: [id number] Author: Tex Johnson APRN.JOSEMANUEL Service: ? Author Type: Nurse Practitioner Type: Progress Notes Filed: 02/16/2023 11:26 AM Note Text: [facility] General Cardiology Electrophysiology PRIMARY CARE PHYSICIAN: Alisia Pacheco [address] [place] [address] CHIEF COMPLAINT: Follow-up status post AV miguel [...] 2021 for tachycardia-bradycardia syndrome. This is a [employer] single-chamber ventricular pacemaker system. Unfortunately, she [...] hip. She underwent right hip surgery at [facility] shortly thereafter. 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 [facility] 02-16-2023 History of Present illness Narrative [facility] Cardiology Electrophysiology PRIMARY CARE PHYSICIAN: Alisia Pacheco [address] [place] [address] CHIEF COMPLAINT: Follow-up status post AV miguel [...] 2021 for tachycardia-bradycardia syndrome. This is a [employer] single-chamber ventricular pacemaker system. Unfortunately, she [...] hip. She underwent right hip surgery at [facility] shortly thereafter. She presented with her son [...] block) ekg 06/27/20 Long Q-T syndrome 01/21/2017 [facility] (current) use of 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 COUMADIN MR (mitral regurgitation) with assymetric hypertrophic cardiomyopathy 09/2001 Nonrheumatic mitral valve regurgitation Osteoporosis Pacemaker-dependent due to kot[place] cardiac rhythm insufficient to support life Permanent atrial fibrillation (HCC) 11/21/2022 Permanent atrial fibrillation with rapid ventricular response (HCC) 11/21/2022 Persistent atrial fibrillation (HCC) Presence of permanent cardiac pacemaker 01/15/2022 [employer] single chamber pacemaker; indication: symptomatic tachycardia-bradycardia [...] 04/2019 CARDIOVERSION ELECTIVE ARRHYTHMIA INTERNAL SPX 04/24/2020 [facility] CARDIOVERSION ELECTIVE ARRHYTHMIA INTERNAL SPX 05/2017 CARDIOVERSION ELECTIVE ARRHYTHMIA INTERNAL SPX 10/2017 CARDIOVERSION ELECTIVE ARRHYTHMIA INTERNAL SPX 10/2018 HEART VALVE REPAIR 07/2018 SEPTAL MYECTOMY AND MVP WITH ANNULOPLASTY WITH A #33 RM BAND, B/L PULMONARY VEIN ISOLATION WITH MULTIPLE OCCASIONA SOF THE ARTICURE RADIOFREQUENCY CLAMP AND CLIPPING OF THE LEFT ATRIAL APPENDAGE WITH A 50MM ARTICURE CLIP PACEMAKER,SINGLE,RATE RESPON Left 12/10/2021 [facility] Dr. Souza; [employer] OTR single-chamber pacemaker; indication: symptomatic tachycardia-bradycardia syndrome VENTRICULOMYOTOMY-MYECTOMY 07/2018 septal myectomy for HCM; [facility], Dr. Jo Social History Tobacco Use [...] with 1.5 mg on all other days. [id number] of 5 secondary to age, gender, CHF, and hypertension. Patient continued to experience tachycardic rates despite undergoing single-chamber [employer] permanent pacemaker in December 2021 with [...] above. No follow-ups on file. Tex Johnson APRN.RECRUITING ASSOCIATE documented in this encounter [facility] 02-16-2023 Nurse Note No cardiac complaints today. No Gunn MA documented in this encounter [facility] 02-12-2023 Miscellaneous Notes Attempted to contact [employer] but no answer. Left providers message an confidential voice mailbox. Noted Will follow along with them for orders, etc. [employer] calling to let PCP know patient will be moving back home to [place] from her daughter's home in [place] this weekend. They will be her home health care agency. [employer]'s phone # [phone]. Jessica Haider RN documented in this encounter [facility] 02-11-2023 Miscellaneous Notes Daughter aware of same. Tracker updated. Take 3 mg today, and Thursday, then 1.5 mg daily except 3 mg on Thursday, Thursday and Thursday. Recheck INR in 2 weeks Usman nurse @ [facility] calling with INR result =1.7. Patient is currently taking Coumadin 3 mg on Thu/ and 1.5 mg Coumadin on all other days. She has no signs of bleeding or bruising. She has no recent changes in diet or medications. Jessica Haider RN documented in this encounter [facility] 02-10-2023 Miscellaneous Notes Pts daughter called and is notified of providers message and instructions. She voices understanding. She states she wrote down all of that information except the part about increasing it back up to the 40 mg for fluid retention. She said they never got the AVS at [place]. Liberty Bravo RN The instructions for taking [...] Pt is staying with her daughter in [place]. Pts daughter reports that when they had [...] : Postmenopausal Protocols used: Leg Swelling and [id number] documented in this encounter [facility] 02-04-2023 Note HNO ID: [id number] Author: Alisia Pacheco MD Service: ? Author Type: Physician Type: Progress Notes Filed: 03/09/2023 12:07 AM Note Text: This note was created using [employer]riter. Subjective Michelle Sharpe is a 83 year [...] Wed and Thur 3 mg. Staying in [place] at [facility]. 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 Permanent atrial fibrillation (HCC) 11/21/2022 Permanent atrial fibrillation with rapid ventricular response (HCC) 11/21/2022 Persistent atrial fibrillation (HCC) Presence of permanent cardiac pacemaker 01/15/2022 [employer] single chamber pacemaker; indication: symptomatic tachycardia-bradycardia syndrome Pulmonary emphysema (HCC) 05/26/2017 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 Monson [...] SPRAYS IN EA (more content not included)... [facility] 02-04-2023 Instructions Alisia Pacheco MD - 02/04/2023 [...] issues and Flomax. documented in this encounter [facility] 02-04-2023 History of Present illness Narrative This note was created using [employer]riter. Subjective Michelle Sharpe is a 83 year [...] Wed and Thur 3 mg. Staying in [place] at [facility]. 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 Permanent atrial fibrillation (HCC) 11/21/2022 Permanent atrial fibrillation with rapid ventricular response (HCC) 11/21/2022 Persistent atrial fibrillation (HCC) Presence of permanent cardiac pacemaker 01/15/2022 [employer] single chamber pacemaker; indication: symptomatic tachycardia-bradycardia [...] the date of the service which included [id number] patient care, completing clinical documentation, obtaining and/or reviewing separately obtained history, performing a medically appropriate examination, counseling and educating the patient/family/caregiver, and communicating with other HCPs (not separately reported). Alisia Pacheco MD documented in this encounter [facility] 02-03-2023 Miscellaneous Notes Noted Will discuss [...] daily, water is best. Did phone Emily [facility], but she was driving and connection was poor. Faxed this encounter per Emily request: fax # [phone] (received confirmation) If no recent change in [...] for low BP by Dr. Smith in [facility]. Reports patient is also taking lisinopril 20 [...] advise daughter. Also see message below from [facility] nurse. Pt. staying with daughter in [place] for about 1 week they are using [facility] care. Last INR done on 01/01 was 2.2. She is taking 3 mg coumadin on Thu, and 1.5 all other days. When do you want this rechecked? Also she is on Midirone 5 mg, lasix 40 mg, Lisinopril 20 mg, Metoprolol 100 mg. How often do you want Vital signs done? Please advise. documented in this encounter [facility] 01-29-2023 Miscellaneous Notes Silvia from [facility] notified of providers message and verbalized understanding. OK for [facility] Silvia from [facility] calls and states that patient is being discharged from [facility] on 01/30/2023 with the diagnosis of right hip fracture. Silvia asking if provider willing to follow patient with orders for fci, physical therapy, and occupational therapy. If agreeable please give Silvia a call back . Thank you, Linda Elmore RN documented in this encounter [facility] 01-01-2023 Note HNO ID: [id number] Author: Bebeto Chaudhary MD Service: ? Author Type: Physician Type: Progress Notes Filed: 01/01/2023 3:13 PM Note Text: [facility] Electrophysiology (EP) Received blood test result for INR 01/01/2023 INR 2.2. She is scheduled for procedure tomorrow 01/02/2023, this INR value is fine. Bebeto Chaudhary MD January 01, 2023 3:12 PM [facility] 01-01-2023 History of Present illness Narrative [facility] General Electrophysiology (EP) Received blood test result for INR 01/01/2023 INR 2.2. She is scheduled for procedure tomorrow 01/02/2023, this INR value is fine. Bebeto Chaudhary MD January 01, 2023 3:12 PM documented in this encounter [facility] 12-21-2022 Miscellaneous Notes Patient notified that vaginal cultures are negative. Can use mycolog for itching. Will call if needs treatment from urine culture. Lou Pascual APRN.CNP documented in this encounter [facility] 12-20-2022 Note HNO ID: [id number] Author: Lou Pascual APRN.CNP Service: ? Author Type: Nurse Practitioner Type: Progress Notes Filed: 12/20/2022 11:58 AM Note Text: Subjective The history is provided by the patient. No speech and language specialist was used. HPI Michelle Sharpe is a [...] block) ekg 06/27/20 Long Q-T syndrome 01/21/2017 [facility] (current) use of 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 COUMADIN MR (mitral regurgitation) with assymetric hypertrophic cardiomyopathy 09/2001 Nonrheumatic mitral valve regurgitation Osteoporosis Permanent atrial fibrillation (HCC) 11/21/2022 Permanent atrial fibrillation with rapid ventricular response (HCC) 11/21/2022 Persistent atrial fibrillation (HCC) Presence of permanent cardiac pacemaker 01/15/2022 [employer] single chamber pacemaker; indication: symptomatic tachycardia-bradycardia syndrome Pulmonary emphysema (HCC) 05/26/2017 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 Monson follows for benign tumor removed 2002 I have confirmed and edited as necessary, the [facility] Review of Systems Constitutional: Negative for chills and fever. Gastrointestinal: Negative for abdominal pain, nausea and vomiting. Genitourinary: Positive for dysuria. Negative for flank pain, frequency, hematuria and urgency. Vaginal burning and itching Objective Physical Exam Vitals and nursing note reviewed. Exam conducted with a exterior work helper present. Constitutional: Appearance: Normal appearance. Abdominal: General: [...] warranting prompt ER evaluation. Lou Pascual APRN.CNP [facility] 12-20-2022 Instructions Lou Pascual APRN.CNP - 12/20/2022 [...] go to ER. documented in this encounter [facility] 12-20-2022 History of Present illness Narrative Subjective The history is provided by the patient. No speech and language specialist was used. 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 COUMADIN MR (mitral regurgitation) with assymetric hypertrophic cardiomyopathy 09/2001 Nonrheumatic mitral valve regurgitation Osteoporosis Permanent atrial fibrillation (HCC) 11/21/2022 Permanent atrial fibrillation with rapid ventricular response (HCC) 11/21/2022 Persistent atrial fibrillation (HCC) Presence of permanent cardiac pacemaker 01/15/2022 [employer] single chamber pacemaker; indication: symptomatic tachycardia-bradycardia syndrome Pulmonary emphysema (HCC) 05/26/2017 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 Monson follows for benign tumor removed 2002 I have confirmed and edited as necessary, the [facility] Review of Systems Constitutional: Negative for chills and fever. Gastrointestinal: Negative for abdominal pain, nausea and vomiting. Genitourinary: Positive for dysuria. Negative for flank pain, frequency, hematuria and urgency. Vaginal burning and itching Objective Physical Exam Vitals and nursing note reviewed. Exam conducted with a exterior work helper present. Constitutional: Appearance: Normal appearance. Abdominal: General: [...] Lou Pascual APRN.JOSEMANUEL documented in this encounter [facility] 12-15-2022 Miscellaneous Notes Portia called in and confirmed receiving message and will have INR's done weekly. She is aware range should be 2-3. Suze Taylor LPN Left message with PRETTY Pearce ([phone]) at [facility] regarding weekly INR levels for AV Node ablation scheduled with Dr. Chaudhary on 01/02/23. Nan Doyle RN Pt calls back. He gets his inr checks done at [facility]. Summer Yeager LPN Left message on [...] before the procedure. Patient will need a concrete mixing truck driver when released from the hospital. You will stay overnight for observation. Patient should continue to take medications as prescribed the morning of the procedure with just a sip of water unless otherwise instructed. H&P Update on 12/23 at 8am with Tex Johnson Spoke with patient and she verbalized understanding of all instructions Maria G Lopez documented in this encounter [facility] 12-03-2022 Miscellaneous Notes Patient notified RX [...] Damaris Valiente LPN documented in this encounter [facility] 11-28-2022 Miscellaneous Notes Pt called to [...] before the procedure. Patient will need a concrete mixing truck driver when released from the hospital. You will stay overnight for observation. Patient should continue to take medications as prescribed the morning of the procedure with just a sip of water unless otherwise instructed. LM for patient to call back to confirm date/instructions Maria G John documented in this encounter [facility] 11-21-2022 Note HNO ID: [id number] Author: Bebeto Chaudhary MD Service: ? Author Type: Physician Type: Progress Notes Filed: 11/21/2022 6:15 PM Note Text: PRIMARY CARE PHYSICIAN: Alisia Pacheco [address] [place] [address] Patient Care Team: Alisia Pacheco MD as PCP - General (Internal Medicine) Arnold Bland as Consulting (Cardiology) Panda Miller MD as Specialty Manager Of Transportation (Pulmonary and Critical Care Medicine) Maria Isabel [...] septal myectomy and mitral valve repair at [facility] in July 2018. At that time [...] ablation with pacema (more content not included)... [facility] 11-21-2022 Nurse Note No cardiac concerns documented in this encounter [facility] 11-21-2022 History of Present illness Narrative PRIMARY CARE PHYSICIAN: Alisia Pacheco [address] [place] [address] Patient Care Team: Alisia Pacheco MD as PCP - General (Internal Medicine) Arnold Bland as Consulting (Cardiology) Panda Miller MD as Specialty Manager Of Transportation (Pulmonary and Critical Care Medicine) Maria Isabel [...] septal myectomy and mitral valve repair at [facility] in July 2018. At that time [...] 2021 for tachycardia-bradycardia syndrome. This is a [employer] single-chamber ventricular pacemaker system. 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 09/2001 Nonrheumatic mitral valve regurgitation Osteoporosis Permanent atrial fibrillation (HCC) 11/21/2022 Permanent atrial fibrillation with rapid ventricular response (HCC) 11/21/2022 Persistent atrial fibrillation (HCC) Presence of permanent cardiac pacemaker 01/15/2022 [employer] single chamber pacemaker; indication: symptomatic tachycardia-bradycardia [...] 04/2019 CARDIOVERSION ELECTIVE ARRHYTHMIA INTERNAL SPX 04/24/2020 [facility] CARDIOVERSION ELECTIVE ARRHYTHMIA INTERNAL SPX 05/2017 CARDIOVERSION ELECTIVE ARRHYTHMIA INTERNAL SPX 10/2017 CARDIOVERSION ELECTIVE ARRHYTHMIA INTERNAL SPX 10/2018 HEART VALVE REPAIR 07/2018 SEPTAL MYECTOMY AND MVP WITH ANNULOPLASTY WITH A #33 RM BAND, B/L PULMONARY VEIN ISOLATION WITH MULTIPLE OCCASIONA SOF THE ARTICURE RADIOFREQUENCY CLAMP AND CLIPPING OF THE LEFT ATRIAL APPENDAGE WITH A 50MM ARTICURE CLIP PACEMAKER,SINGLE,RATE RESPON Left 12/10/2021 [facility] Dr. Souza; [employer] OTR single-chamber pacemaker; indication: symptomatic tachycardia-bradycardia syndrome VENTRICULOMYOTOMY-MYECTOMY 07/2018 septal myectomy for HCM; [facility], Dr. Jo SOCIAL HISTORY Social History [...] which included preparing to see the patient, [id number] patient care, completing clinical documentation, obtaining and/or [...] cardiac pacemaker - ICD9: V45.01, ICD10: Z95.0 [employer] single-chamber ventricular pacemaker system implanted 12/10/2021 [...] that I would reach out to her flame hardener, Dr. Bland, to review my recommendations and [...] 4 - Moderate documented in this encounter [facility] 10-20-2022 Miscellaneous Notes Patient phones requesting refills as follows: Requested Prescriptions Pending Prescriptions Disp Refills albuterol HFA (VENTOLIN HFA) 90 mcg/actuation inhaler 1 Each 5 Sig: Inhale 2 Puffs as instructed every 4 hours as needed for wheezing/shortness of breath. Please review and advise. Inga Rodriguez LPN documented in this encounter [facility] 10-03-2022 Miscellaneous Notes Patient has been identified by name and date of : Yes Requested Prescriptions Pending Prescriptions Disp Refills fluticasone-salmeterol (ADVAIR, WIXELA) 250-50 mcg/dose inhaler 1 Each 5 Sig: Inhale 1 Puff as instructed twice daily. RX INSTRUCTIONS: Patient aware RX will be sent to pharmacy. No need to notify patient. Sari Quiles Ma documented in this encounter [facility] 09-22-2022 Procedure note Associated Ord er(s): [...] unsteady while walking.) documented in this encounter [facility] 09-22-2022 History of Present illness Narrative Patient: Michelle Shrape PCP: Alisia Pacheco MD CC: COPD HPI: Michelle Sharpe 82 year old female former smoker, 58 pack years (quitting 2004) with PMH significant for mitral regurgitation, HOCM, HTN, hyperlipidemia, AFib, chronic diastolic heart failure, small B-cell lymphoma with bone metastasis, and COPD. Recently had pacemaker placed at [facility] in January 2022. Since the last Pulmonary Clinic visit 05/01/2022, the patient has not required ED care for exacerbation. However, she was seen in the [place] ED following a fall. There has been [...] block) ekg 06/27/20 Long Q-T syndrome 01/21/2017 terminal operator (current) use of 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 COUMADIN MR (mitral [...] HISTORY Procedure Laterality Date ANESTH,PACEMAKER INSERTION 01/2022 [facility] Dr. Souza BLADDER SURGERY HX 2004 tumor removed from bladder CARDIOVERSION ELECTIVE ARRHYTHMIA INTERNAL SPX 04/2019 CARDIOVERSION ELECTIVE ARRHYTHMIA INTERNAL SPX 04/24/2020 [facility] CARDIOVERSION ELECTIVE ARRHYTHMIA INTERNAL SPX [...] CLIP VENTRICULOMYOTOMY-MYECTOMY 07/2018 septal myectomy for HCM; [facility], Dr. Jo I reviewed the past [...] Aaliyah Stone PA-C documented in this encounter [facility] 09-22-2022 History of Present illness Narrative PULM FUNCTION SMARTBLOCK: Provider: Aaliyah Stone PA-C Assisting Tech: GREG Wallace Oximetry - Ambulation: 1 documented in this encounter [facility] 09-19-2022 Miscellaneous Notes Patient was in express care today - PCP was down to speak with her. Closing encounter. Berry Piper Ma Patient calling to speak to clinical about a medication for diverticulitis. She cannot remember the name of the medication that may have been prescribed in the past. documented in this encounter [facility] 09-19-2022 Instructions Alisia Pacheco MD - 09/19/2022 1:09 PM EST Take Gas X to see if this relieves the pain. [place] diet, low residual and soft foods for now and advance a tolerated. Take antibiotic if acting more like overt diverticulitis. If need to take the antibiotic, then would recommend evaluation with Dr. Valdivia (surgeon at [facility]). Go to hospital if develop red flag symptoms--including severe pain, nausea and vomiting, bleeding, intractable diarrhea, signs of dehydration, etc. Can use hydrocodone for the pain but still need to go to ER if severe. documented in this encounter [facility] 09-19-2022 History of Present illness Narrative This note was created using [employer]riter. Subjective Michelle Sharpe is a 82 year [...] block) ekg 06/27/20 Long Q-T syndrome 01/21/2017 terminal operator (current) use of 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 COUMADIN MR (mitral [...] side ribs and muscles. Patient seen in [facility] when present for recurrent LLQ pain. At this time, not consistent with acute diverticulitis. Further evaluation as discussed. Alisia Pacheco MD documented in this encounter [facility] 09-10-2022 History of Present illness Narrative This note was created using [employer]riter. Subjective Michelle Sharpe is a 82 year [...] block) ekg 06/27/20 Long Q-T syndrome 01/21/2017 [facility] (current) use of 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 COUMADIN MR (mitral [...] Alisia Pacheco MD documented in this encounter [facility] 09-04-2022 Miscellaneous Notes Patient called and [...] 6 months Prolia. documented in this encounter [facility] 09-01-2022 History of Present illness Narrative [...] block) ekg 06/27/20 Long Q-T syndrome 01/21/2017 [facility] (current) use of 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 COUMADIN MR (mitral [...] HISTORY Procedure Laterality Date ANESTH,PACEMAKER INSERTION 01/2022 [facility] Dr. Souza BLADDER SURGERY HX 2003 tumor removed from bladder CARDIOVERSION ELECTIVE ARRHYTHMIA INTERNAL SPX 04/2019 CARDIOVERSION ELECTIVE ARRHYTHMIA INTERNAL SPX 04/24/2020 [facility] CARDIOVERSION ELECTIVE ARRHYTHMIA INTERNAL SPX [...] CLIP VENTRICULOMYOTOMY-MYECTOMY 07/2018 septal myectomy for HCM; [facility], Dr. Jo ALLERGIES Zyloprim [Allopurinol], Environmental [...] IMPRESSION IMPRESSION: No significant acute radiographic abnormality. Therapeutic Activities Services Worker: PHILIPPE Transcribe Date/Time: Sep 01 2022 3:00P Dictated by : VANDANA HENSLEY MD At this time patient was instructed to just rest and see if the area gets any more comfortable over the next week or so. If not she will follow-up with primary care. Pina Singleton APRN.JOSEMANUEL documented in this encounter [facility] 08-25-2022 Miscellaneous Notes Patient calls back and notified of results. Patient voiced understanding. Linda Elmore RN Left message for return call. Please let patient know that no rib fractures or abnormalities were noted on rib xray. Thank you Mana Valentin APRN.JOSEMANUEL documented in this encounter [facility] 08-22-2022 History of Present illness Narrative CC: Patient presents with: Recheck: [facility] ER follow up HPI Michelle Sharpe is a 82 year old female who presents today for ER follow-up. Facility: [facility] ER Date of visit: 08/17/22 Reason [...] Has A-fib and a pacemaker and sees [facility]. Unsure when she last saw [...] block) ekg 06/27/20 Long Q-T syndrome 01/21/2017 terminal operator (current) use of 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 COUMADIN MR (mitral [...] HISTORY Procedure Laterality Date ANESTH,PACEMAKER INSERTION 01/2022 [facility] Dr. Souza BLADDER SURGERY HX 2004 tumor removed from bladder CARDIOVERSION ELECTIVE ARRHYTHMIA INTERNAL SPX 04/2019 CARDIOVERSION ELECTIVE ARRHYTHMIA INTERNAL SPX 04/24/2020 [facility] CARDIOVERSION ELECTIVE ARRHYTHMIA INTERNAL SPX [...] CLIP VENTRICULOMYOTOMY-MYECTOMY 07/2018 septal myectomy for HCM; [facility], Dr. Jo ALLERGIES Zyloprim [Allopurinol], Environmental [...] 65+ Completed DATA REVIEWED: Outside chart from [facility] reviewed. ASSESSMENT/PLAN: 1. Atrial fibrillation, unspecified [...] Mana Valentin APRN.CNP documented in this encounter [facility] 08-14-2022 Miscellaneous Notes Attempted to scheduled [...] and states that she was just at [facility] and they were concerned that patient has a DVT in her right leg. Patients leg and ankle are swollen. Patient was told that she needed to call PCP to get orders for ultrasound for right leg. Patient also states that [facility] is wanting orders placed for a bone density test. Please review and advise, Linda Elmore RN documented in this encounter [facility] 08-14-2022 Instructions Alisia Pacheco MD - [...] usual activities immediately. documented in this encounter [facility] 08-13-2022 Miscellaneous Notes Patient given provider's message below. Olinda Perez RN Left a message for pt to call the office and ask to speak to a nurse. Avleina Polanco LPN She has been getting this filled by Dr Rodríguez. PCP ordered in July but pharmacy filled Basli script. Should continue to obtain from Dr Rodríguez if still seeing him. I can send 30 day supply until that is clarified. Patient calls and is asking if gabapentin can be sent to [facility]. [facility] uses [facility]. Please review and advise, Linda Elmore RN documented in this encounter [facility] 10-04-2022 Miscellaneous Notes Patient notified ----- Message from Alisia Pacheco MD sent at 08/02/2022 12:58 AM EDT ----- Noted diverticulosis and thickening of the bowel wall but not overt diverticulitis--note that given her symptoms were improving, it correlates clinically with resolving diverticulitis. Other findings stable (gallstones, left adrenal adenoma, lesions in liver and spleen). Let patient know. documented in this encounter [facility] 07-14-2022 Instructions Alisia Pacheco MD - 07/14/2022 3:28 PM EDT Check INR at the end of this week because of Cipro. documented in this encounter [facility] 07-14-2022 History of Present illness Narrative Images from the original note were not included. This note was created using [employer]. Subjective Michelle Sharpe is a 82 year old female. Patient presents with: ER F/U SUBJECTIVE: Michelle Sharpe is a 82 year old year old lady here today for ER follow up appointment for review of medical conditions. Reviewed issues with back--Dr. Rodríguez did injections. She made an appointment with Dr. Cárdenas (spine surgeon, [facility]). Noted that had pacer put in [...] block) ekg 06/27/20 Long Q-T syndrome 01/21/2017 terminal operator (current) use of 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 COUMADIN MR (mitral [...] Alisia Pacheco MD documented in this encounter [facility] 07-11-2022 Miscellaneous Notes This AEROLOGIST called patient at [phone] and identified with name and . States she is feeling better. Started taking prescription Advised to increase water intake Go to ED if any abdominal pain. Keep follow up Thursday with Dr. Pacheco. Patient verbalized understanding All questions answered. Lou Pascual CNP documented in this encounter [facility] 07-11-2022 Miscellaneous Notes [facility] reports [facility] tells [facility]in [facility] on back order and no pharmacy in [facility] has it. This nurse phoned [facility], who states they do have augmentin 875-125 mg. Gave verbal order to pharmacist, Martinez. Cancelled augmentin at [facility]. Notified patient she can pickup driver at [facility]. Pt called back and states the prescription she was to pickup driver at her pharmacy she was told by the pharmacy they can not get this medication and pt is requesting something else be called in. Pt would like to be notified. Avelina Polanco LPN documented in this encounter [facility] 07-10-2022 History of Present illness Narrative [...] for GI bleed April 2021. Treated at [facility] 07/05/22 for symptomatic afib with RVR. She [...] block) ekg 06/27/20 Long Q-T syndrome 01/21/2017 [facility] (current) use of 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 COUMADIN MR (mitral [...] HISTORY Procedure Laterality Date ANESTH,PACEMAKER INSERTION 01/2022 [facility] Dr. Souza BLADDER SURGERY HX 2003 tumor removed from bladder CARDIOVERSION ELECTIVE ARRHYTHMIA INTERNAL SPX 04/2019 CARDIOVERSION ELECTIVE ARRHYTHMIA INTERNAL SPX 04/24/2020 [facility] CARDIOVERSION ELECTIVE ARRHYTHMIA INTERNAL SPX [...] CLIP VENTRICULOMYOTOMY-MYECTOMY 07/2018 septal myectomy for HCM; [facility], Dr. Jo MEDICATIONS: gabapentin (NEURONTIN) 100 [...] Daniel Mcclelland MD documented in this encounter [facility] 07-10-2022 Miscellaneous Notes Patient calling in again and states she plans to go to [facility] today for further evaluation. Olinda Perez [...] Linda Elmore RN documented in this encounter [facility] 07-05-2022 Miscellaneous Notes Okayed Last seen pcp 04/15/22. Next appt is with AEROLOGIST 09/15/22. Patient has been identified by name and date of : Yes Requested Prescriptions Pending Prescriptions Disp Refills gabapentin (NEURONTIN) 100 mg capsule 60 capsule 0 Sig: Take 2 capsules by mouth once daily for 30 days. RX INSTRUCTIONS: Patient aware RX will be sent to pharmacy. No need to notify patient. Renetta Stack documented in this encounter [facility] 06-04-2022 Miscellaneous Notes Discussed with EB, [...] pt. to take? documented in this encounter [facility] 05-01-2022 History of Present illness Narrative PULM FUNCTION SMARTBLOCK: Provider: Aaliyah Stone PA-C Assisting Tech: GREG Wallace Spirometry: 1 documented in this encounter [facility] 05-01-2022 History of Present illness Narrative [facility] Respiratory [place], 05/01/2022: Name: Michelle Sharpe : 1940 The [...] visit 07/26/2021, the patient was evaluated in [place] ED on 04/09/[address] [...] need it every day . Follows with [facility]. Currently not wearing supplemental oxygen. [...] Aaliyah Stone PA-C documented in this encounter [facility] 04-15-2022 History of Present illness Narrative This note was created using [employer]. Subjective Michelle Sharpe is a 82 year [...] seeing a spine surgeon (Dr. Cárdenas at [facility]). Prednisone taper that Jerad gave had [...] block) ekg 06/27/20 Long Q-T syndrome 01/21/2017 terminal operator (current) use of 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 COUMADIN MR (mitral [...] heart failure with preserved ejection fraction (HFpEF) ([facility]) - ICD9: 428.9, ICD10: I50.32 Compensated now. [...] Alisia Pacheco MD documented in this encounter [facility] 04-11-2022 Miscellaneous Notes Patient went to [facility] for Acute respiratory infection and antibiotic was stopped. Please let her know mixed roslyn on urinary culture. Recommend recheck urinalysis in about 1 month. If microscopic hematuria persists recommend an appointment with urology provider. consult has been placed in the event she may need it. documented in this encounter [facility] 04-08-2022 Instructions Jerad Bales APRN.CNS - 04/08/2022 11:22 AM EDT Check you INR level on the antibiotic this week. Start taking macrobid for urinary tract infection. Take with food. documented in this encounter [facility] 04-08-2022 History of Present illness Narrative [...] she is on oral anticoagulation followed by [facility], Portia Downey at home. INR is completed at [facility]. She reports bradycardia, underwent pacemaker at [facility] about [address] [...] block) ekg 06/27/20 Long Q-T syndrome 01/21/2017 [facility] (current) use of 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 COUMADIN MR (mitral [...] cardiac pacemaker - ICD9: V45.01, ICD10: Z95.0 [facility] Sep/Oct visit with MD Jerad Hernandez APRN.CALENDER WORKER HELPER Medical Decision Making: Problems: Low: Acute, uncomplicated illness or injury Risk: Moderate: Drug management Medical Decision Making Level: 3 - Low documented in this encounter [facility] 03-24-2022 Miscellaneous Notes I did not place a call to patient. Nazia Pateint called stating she missed a call from clinic. She can be reached on her cell: [phone]. Damaris Valiente LPN Patient called and states that Aaliyah Stone PA-C, called her. Patient returning call. Damaris Valiente LPN documented in this encounter [facility] 03-23-2022 Miscellaneous Notes Patient called to advise that the cephalexin is making her stomach upset and her fingertips are tingling, she does not want to take any more of the medication. Rx for Cipro sent to [facility]. Jennifer Cristina APRN.RECRUITING ASSOCIATE documented in this encounter [facility] 03-22-2022 Instructions Jennifer Cristina APRN.RECRUITING ASSOCIATE - 03/22/2022 12:39 PM EDT ASSESSMENT/PLAN: 1. [...] Discussed expected course of illness Jennifer Cristina APRN.RECRUITING ASSOCIATE [facility] PATIENT INFO BLADDER INFECTION OVERVIEW [...] have an infection. documented in this encounter [facility] 03-22-2022 History of Present illness Narrative [...] block) ekg 06/27/20 Long Q-T syndrome 01/21/2017 terminal operator (current) use of 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 COUMADIN MR (mitral [...] 04/2019 CARDIOVERSION ELECTIVE ARRHYTHMIA INTERNAL SPX 04/24/2020 [facility] CARDIOVERSION ELECTIVE ARRHYTHMIA INTERNAL SPX [...] CLIP VENTRICULOMYOTOMY-MYECTOMY 07/2018 septal myectomy for HCM; [facility], Dr. Jo ALLERGIES Zyloprim [Allopurinol], Environmental [...] Discussed expected course of illness Jennifer Cristina APRN.RECRUITING ASSOCIATE documented in this encounter [facility] 02-09-2022 History of Present illness Narrative [...] block) ekg 06/27/20 Long Q-T syndrome 01/21/2017 [facility] (current) use of 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 COUMADIN MR (mitral [...] 04/2019 CARDIOVERSION ELECTIVE ARRHYTHMIA INTERNAL SPX 04/24/2020 [facility] CARDIOVERSION ELECTIVE ARRHYTHMIA INTERNAL SPX [...] CLIP VENTRICULOMYOTOMY-MYECTOMY 07/2018 septal myectomy for HCM; [facility], Dr. Jo MEDICATIONS: gabapentin (NEURONTIN) 100 [...] Daniel Mcclelland MD documented in this encounter [facility] 01-07-2022 History of Present illness Narrative This note was created using [employer]riter. Subjective Michelle Sharpe is a 81 year [...] block) ekg 06/27/20 Long Q-T syndrome 01/21/2017 terminal operator (current) use of 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 COUMADIN MR (mitral [...] heart failure with preserved ejection fraction (HFpEF) ([facility]LY [facility]) I50.32 potassium chloride (K-TAB) 10 mEq tablet 5. Vitamin D deficiency E55.9 VITAMIN D 25 HYDROXY 6. Chronic obstructive pulmonary disease, unspecified COPD type ([facility]) J44.9 7. Anticoagulant long-term use Z79.01 8. [...] Z95.0 Doing well. Continue following up with flame hardener. 4. Chronic heart failure with preserved ejection [...] Alisia Pacheco MD documented in this encounter [facility] documented as of this encounter (statuses as of 10/22/2023) [facility]09-30-2018 History of Past illness Narrative* Problem [...] pain 07/30/2018 08/03/2018 Overview: A/p Controlled with [employer] OFFICER fentanyl, scheduled lidoderm patches and tyenol, prn oxycodone Stress hyperglycemia 07/30/2018 08/05/2018 Overview: Continue SS. Hypovolemia/fluctuating lacic acidosis 8 08/02/2018 Overview: A/p albumin given x1 Discharge planning issues 07/29/20182020 Overview: Discharge to SNF 08.06.2018. Lives in [facility], alone but has supportive family. PT/OT/RT recommend SNF. Appointments requested with CTS AEROLOGIST and Cards. Preop testing 07/29/2018 08/03/2018 Overview[facility] Surgeon: Jamie oJ M.D. Informed Consent Completed: yes STS Score: [...] AWARE OF ELEVATED CREATININE SIGNATURE: Bell Johnson APRN.RECRUITING ASSOCIATE CHECKED BY: LEE ANN DATE of SERVICE: 07/29/2018 TIME of SERVICE: 8:22 AM Encounter for preoperative a nesthesiology assessment for cardiac surgery 07/29/2018 08/29/2021 Small B-cell lymphoma of extranodal site 018 08/29/2021 Overview: Added automatically from request for surgery [id number] Bone metastasis 10/13/2017 08/29/2021 Overview: Added automatically from request for surgery [id number] Hypoxemia 05/20/2017 08/03/2018 Overview: Requiring HF O2 after extubation A/p Begin diuresis and oob to chair, wean O2 as able. 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 Left-sided low back pain with left-sided sciatic a 02/19/2016 08/03/2018 Vitamin D deficiency 07/09/2010 08/03/2018 Overview: Vit D 26.4 at [facility] 07/01/2010 Impaired fasting glucose 10/06/2008 018 Elevated [...] of this encounter (statuses as of 02/09/2022) [facility] History of Past illness Narrative* Problem [...] pain 07/30/2018 08/03/2018 Overview: A/p Controlled with [employer] OFFICER fentanyl, scheduled lidoderm patches and tyenol, prn oxycodone Stress hyperglycemia 07/30/2018 08/05/2018 Overview: Continue SS. Hypovolemia/fluctuating lacic acidosis 8 08/02/2018 Overview: A/p albumin given x1 Discharge planning issues 07/29/20182020 Overview: Discharge to SNF 08.06.2018. Lives in [facility], alone but has supportive family. PT/OT/RT recommend SNF. Appointments requested with CTS AEROLOGIST and Cards. Preop testing 07/29/2018 08/03/2018 Overview: [...] or exertion. Will obtain nocturnal oxygen from [email or web address]. Continue rescue inhaler as needed for relief [...] AWARE OF ELEVATED CREATININE SIGNATURE: Bell Johnson APRN.RECRUITING ASSOCIATE CHECKED BY: LEE ANN DATE of SERVICE: 07/29/2018 TIME of SERVICE: 8:22 AM Encounter for preoperative a nesthesiology assessment for cardiac surgery 07/29/2018 08/29/2021 Small B-cell lymphoma of extranodal site 018 08/29/2021 Overview: Added automatically from request for surgery [id number] Bone metastasis 10/13/2017 08/29/2021 Overview: Added automatically from request for surgery [id number] Hypoxemia 05/20/2017 08/03/2018 Overview: Requiring HF O2 after extubation A/p Begin diuresis and oob to chair, wean O2 as able. 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 Left-sided low back pain with left-sided sciatic a 02/19/2016 08/03/2018 Vitamin D deficiency 07/09/2010 08/03/2018 Overview: Vit D 26.4 at [facility] 07/01/2010 Impaired fasting glucose 10/06/2008 018 Elevated [...] of this encounter (statuses as of 03/22/2022) [facility] History of Past illness Narrative* Problem [...] pain 07/30/2018 08/03/2018 Overview: A/p Controlled with [employer] OFFICER fentanyl, scheduled lidoderm patches and tyenol, prn oxycodone Stress hyperglycemia 07/30/2018 08/05/2018 Overview: Continue SS. Hypovolemia/fluctuating lacic acidosis 8 08/02/2018 Overview: A/p albumin given x1 Discharge planning issues 07/29/20182020 Overview: Discharge to SNF 08.06.2018. Lives in [facility], alone but has supportive family. PT/OT/RT recommend SNF. Appointments requested with CTS AEROLOGIST and Cards. Preop testing 07/29/2018 08/03/2018 Overview: [...] AWARE OF ELEVATED CREATININE SIGNATURE: Bell Johnson APRN.RECRUITING ASSOCIATE CHECKED BY: LEE ANN DATE of SERVICE: 07/29/2018 TIME of SERVICE: 8:22 AM Encounter for preoperative a nesthesiology assessment for cardiac surgery 07/29/2018 08/29/2021 Small B-cell lymphoma of extranodal site 018 08/29/2021 Overview: Added automatically from request for surgery [id number] Bone metastasis 10/13/2017 08/29/2021 Overview: Added automatically from request for surgery [id number] Hypoxemia 05/20/2017 08/03/2018 Overview: Requiring HF O2 after extubation A/p Begin diuresis and oob to chair, wean O2 as able. 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 Left-sided low back pain with left-sided sciatic a 02/19/2016 08/03/2018 Vitamin D deficiency 07/09/2010 08/03/2018 Overview: Vit D 26.4 at [facility] 07/01/2010 Impaired fasting glucose 10/06/2008 018 Elevated [...] of this encounter (statuses as of 03/23/2022) [facility] History of Past illness Narrative* Problem [...] pain 07/30/2018 08/03/2018 Overview: A/p Controlled with [employer] OFFICER fentanyl, scheduled lidoderm patches and tyenol, prn oxycodone Stress hyperglycemia 07/30/2018 08/05/2018 Overview: Continue SS. Hypovolemia/fluctuating lacic acidosis 8 08/02/2018 Overview: A/p albumin given x1 Discharge planning issues 07/29/20182020 Overview: Discharge to SNF 08.06.2018. Lives in [facility], alone but has supportive family. PT/OT/RT recommend SNF. Appointments requested with CTS AEROLOGIST and Cards. Preop testing 07/29/2018 08/03/2018 Overview: [...] or exertion. Will obtain nocturnal oxygen from [employer]. Continue rescue inhaler as needed for relief [...] AWARE OF ELEVATED CREATININE SIGNATURE: Bell Johnson APRN.RECRUITING ASSOCIATE CHECKED BY: LEE ANN DATE of SERVICE: 07/29/2018 TIME of SERVICE: 8:22 AM Encounter for preoperative a nesthesiology assessment for cardiac surgery 07/29/2018 08/29/2021 Small B-cell lymphoma of extranodal site 018 08/29/2021 Overview: Added automatically from request for surgery [id number] Bone metastasis 10/13/2017 08/29/2021 Overview: Added automatically from request for surgery [id number] Hypoxemia 05/20/2017 08/03/2018 Overview: Requiring HF O2 after extubation A/p Begin diuresis and oob to chair, wean O2 as able. 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 Left-sided low back pain with left-sided sciatic a 02/19/2016 08/03/2018 Vitamin D deficiency 07/09/2010 08/03/2018 Overview: Vit D 26.4 at [facility] 07/01/2010 Impaired fasting glucose 10/06/2008 018 Elevated [...] of this encounter (statuses as of 03/24/2022) [facility] History of Past illness Narrative* Problem [...] pain 07/30/2018 08/03/2018 Overview: A/p Controlled with [employer] OFFICER fentanyl, scheduled lidoderm patches and tyenol, prn oxycodone Stress hyperglycemia 07/30/2018 08/05/2018 Overview: Continue SS. Hypovolemia/fluctuating lacic acidosis 8 08/02/2018 Overview: A/p albumin given x1 Discharge planning issues 07/29/20182020 Overview: Discharge to SNF 08.06.2018. Lives in [facility], alone but has supportive family. PT/OT/RT recommend SNF. Appointments requested with CTS AEROLOGIST and Cards. Preop testing 07/29/2018 08/03/2018 Overview: [...] AWARE OF ELEVATED CREATININE SIGNATURE: Bell Johnson APRN.RECRUITING ASSOCIATE CHECKED BY: LEE ANN DATE of SERVICE: 07/29/2018 TIME of SERVICE: 8:22 AM Encounter for preoperative a nesthesiology assessment for cardiac surgery 07/29/2018 08/29/2021 Small B-cell lymphoma of extranodal site 018 08/29/2021 Overview: Added automatically from request for surgery [id number] Bone metastasis 10/13/2017 08/29/2021 Overview: Added automatically from request for surgery [id number] Hypoxemia 05/20/2017 08/03/2018 Overview: Requiring HF O2 after extubation A/p Begin diuresis and oob to chair, wean O2 as able. 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 Left-sided low back pain with left-sided sciatic a 02/19/2016 08/03/2018 Vitamin D deficiency 07/09/2010 08/03/2018 Overview: Vit D 26.4 at [facility] 07/01/2010 Impaired fasting glucose 10/06/2008 018 Elevated [...] of this encounter (statuses as of 03/30/2022) [facility] History of Past illness Narrative* Problem [...] pain 07/30/2018 08/03/2018 Overview: A/p Controlled with [employer] OFFICER fentanyl, scheduled lidoderm patches and tyenol, prn oxycodone Stress hyperglycemia 07/30/2018 08/05/2018 Overview: Continue SS. Hypovolemia/fluctuating lacic acidosis 8 08/02/2018 Overview: A/p albumin given x1 Discharge planning issues 07/29/20182020 Overview: Discharge to SNF 08.06.2018. Lives in [facility], alone but has supportive family. PT/OT/RT recommend SNF. Appointments requested with CTS AEROLOGIST and Cards. Preop testing 07/29/2018 08/03/2018 Overview: [...] AWARE OF ELEVATED CREATININE SIGNATURE: Bell Johnson APRN.RECRUITING ASSOCIATE CHECKED BY: LEE ANN DATE of SERVICE: 07/29/2018 TIME of SERVICE: 8:22 AM Encounter for preoperative a nesthesiology assessment for cardiac surgery 07/29/2018 08/29/2021 Small B-cell lymphoma of extranodal site 018 08/29/2021 Overview: Added automatically from request for surgery [id number] Bone metastasis 10/13/2017 08/29/2021 Overview: Added automatically from request for surgery [id number] Hypoxemia 05/20/2017 08/03/2018 Overview: Requiring HF O2 after extubation A/p Begin diuresis and oob to chair, wean O2 as able. 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 Left-sided low back pain with left-sided sciatic a 02/19/2016 08/03/2018 Vitamin D deficiency 07/09/2010 08/03/2018 Overview: Vit D 26.4 at [facility] 07/01/2010 Impaired fasting glucose 10/06/2008 018 Elevated [...] of this encounter (statuses as of 04/03/2022) [facility] History of Past illness Narrative* Problem [...] pain 07/30/2018 08/03/2018 Overview: A/p Controlled with [employer] OFFICER fentanyl, scheduled lidoderm patches and tyenol, prn oxycodone Stress hyperglycemia 07/30/2018 08/05/2018 Overview: Continue SS. Hypovolemia/fluctuating lacic acidosis 8 08/02/2018 Overview: A/p albumin given x1 Discharge planning issues 07/29/20182020 Overview: Discharge to SNF 08.06.2018. Lives in [facility], alone but has supportive family. PT/OT/RT recommend SNF. Appointments requested with CTS AEROLOGIST and Cards. Preop testing 07/29/2018 08/03/2018 Overview: [...] AWARE OF ELEVATED CREATININE SIGNATURE: Bell Johnson APRN.RECRUITING ASSOCIATE CHECKED BY: LEE ANN DATE of SERVICE: 07/29/2018 TIME of SERVICE: 8:22 AM Encounter for preoperative a nesthesiology assessment for cardiac surgery 07/29/2018 08/29/2021 Bone metastasis 10/13/2017 08/29/2021 Overview: Added automatically from request for surgery [id number] Hypoxemia 05/20/2017 08/03/2018 Overview: Requiring HF O2 after extubation A/p Begin diuresis and oob to chair, wean O2 as able. 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 Left-sided low back pain with left-sided sciatic a 02/19/2016 08/03/2018 Vitamin D deficiency 07/09/2010 08/03/2018 Overview: Vit D 26.4 at [facility] 07/01/2010 Impaired fasting glucose 10/06/2008 018 Elevated [...] of this encounter (statuses as of 04/08/2022) [facility] History of Past illness Narrative* Problem [...] pain 07/30/2018 08/03/2018 Overview: A/p Controlled with [employer] OFFICER fentanyl, scheduled lidoderm patches and tyenol, prn oxycodone Stress hyperglycemia 07/30/2018 08/05/2018 Overview: Continue SS. Hypovolemia/fluctuating lacic acidosis 8 08/02/2018 Overview: A/p albumin given x1 Discharge planning issues 07/29/20182020 Overview: Discharge to SNF 08.06.2018. Lives in [facility], alone but has supportive family. PT/OT/RT recommend SNF. Appointments requested with CTS AEROLOGIST and Cards. Preop testing 07/29/2018 08/03/2018 Overview: [...] AWARE OF ELEVATED CREATININE SIGNATURE: Bell Johnson APRN.RECRUITING ASSOCIATE CHECKED BY: LEE ANN DATE of SERVICE: 07/29/2018 TIME of SERVICE: 8:22 AM Encounter for preoperative a nesthesiology assessment for cardiac surgery 07/29/2018 08/29/2021 Bone metastasis 10/13/2017 08/29/2021 Overview: Added automatically from request for surgery [id number] Hypoxemia 05/20/2017 08/03/2018 Overview: Requiring HF O2 after extubation A/p Begin diuresis and oob to chair, wean O2 as able. 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 Left-sided low back pain with left-sided sciatic a 02/19/2016 08/03/2018 Vitamin D deficiency 07/09/2010 08/03/2018 Overview: Vit D 26.4 at [facility] 07/01/2010 Impaired fasting glucose 10/06/2008 018 Elevated [...] of this encounter (statuses as of 04/11/2022) [facility] History of Past illness Narrative* Problem [...] pain 07/30/2018 08/03/2018 Overview: A/p Controlled with [employer] OFFICER fentanyl, scheduled lidoderm patches and tyenol, prn oxycodone Stress hyperglycemia 07/30/2018 08/05/2018 Overview: Continue SS. Hypovolemia/fluctuating lacic acidosis 8 08/02/2018 Overview: A/p albumin given x1 Discharge planning issues 07/29/20182020 Overview: Discharge to SNF 08.06.2018. Lives in [facility], alone but has supportive family. PT/OT/RT recommend SNF. Appointments requested with CTS AEROLOGIST and Cards. Preop testing 07/29/2018 08/03/2018 Overview: [...] AWARE OF ELEVATED CREATININE SIGNATURE: Bell Johnson APRN.RECRUITING ASSOCIATE CHECKED BY: LEE ANN DATE of SERVICE: 07/29/2018 TIME of SERVICE: 8:22 AM Encounter for preoperative a nesthesiology assessment for cardiac surgery 07/29/2018 08/29/2021 Bone metastasis 10/13/2017 08/29/2021 Overview: Added automatically from request for surgery [id number] Hypoxemia 05/20/2017 08/03/2018 Overview: Requiring HF O2 after extubation A/p Begin diuresis and oob to chair, wean O2 as able. 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 Left-sided low back pain with left-sided sciatic a 02/19/2016 08/03/2018 Vitamin D deficiency 07/09/2010 08/03/2018 Overview: Vit D 26.4 at [facility] 07/01/2010 Impaired fasting glucose 10/06/2008 018 Elevated [...] of this encounter (statuses as of 05/01/2022) [facility] History of Past illness Narrative* Problem [...] pain 07/30/2018 08/03/2018 Overview: A/p Controlled with [employer] OFFICER fentanyl, scheduled lidoderm patches and tyenol, prn oxycodone Stress hyperglycemia 07/30/2018 08/05/2018 Overview: Continue SS. Hypovolemia/fluctuating lacic acidosis 8 08/02/2018 Overview: A/p albumin given x1 Discharge planning issues 07/29/20182020 Overview: Discharge to SNF 08.06.2018. Lives in [facility], alone but has supportive family. PT/OT/RT recommend SNF. Appointments requested with CTS AEROLOGIST and Cards. Preop testing 07/29/2018 08/03/2018 Overview: [...] AWARE OF ELEVATED CREATININE SIGNATURE: Bell Johnson APRN.RECRUITING ASSOCIATE CHECKED BY: LEE ANN DATE of SERVICE: 07/29/2018 TIME of SERVICE: 8:22 AM Encounter for preoperative a nesthesiology assessment for cardiac surgery 07/29/2018 08/29/2021 Bone metastasis 10/13/2017 08/29/2021 Overview: Added automatically from request for surgery [id number] Hypoxemia 05/20/2017 08/03/2018 Overview: Requiring HF O2 after extubation A/p Begin diuresis and oob to chair, wean O2 as able. 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 Left-sided low back pain with left-sided sciatic a 02/19/2016 08/03/2018 Vitamin D deficiency 07/09/2010 08/03/2018 Overview: Vit D 26.4 at [facility] 07/01/2010 Impaired fasting glucose 10/06/2008 018 Elevated [...] of this encounter (statuses as of 05/01/2022) [facility] History of Past illness Narrative* Problem [...] pain 07/30/2018 08/03/2018 Overview: A/p Controlled with [employer] OFFICER fentanyl, scheduled lidoderm patches and tyenol, prn oxycodone Stress hyperglycemia 07/30/2018 08/05/2018 Overview: Continue SS. Hypovolemia/fluctuating lacic acidosis 8 08/02/2018 Overview: A/p albumin given x1 Discharge planning issues 07/29/20182020 Overview: Discharge to SNF 08.06.2018. Lives in [place], alone but has supportive family. PT/OT/RT recommend SNF. Appointments requested with CTS AEROLOGIST and Cards. Preop testing 07/29/2018 08/03/2018 Overview: [...] AWARE OF ELEVATED CREATININE SIGNATURE: Bell Johnson APRN.RECRUITING ASSOCIATE CHECKED BY: LEE ANN DATE of SERVICE: 07/29/2018 TIME of SERVICE: 8:22 AM Encounter for preoperative a nesthesiology assessment for cardiac surgery 07/29/2018 08/29/2021 Bone metastasis 10/13/2017 08/29/2021 Overview: Added automatically from request for surgery [id number] Hypoxemia 05/20/2017 08/03/2018 Overview: Requiring HF O2 after extubation A/p Begin diuresis and oob to chair, wean O2 as able. 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 Left-sided low back pain with left-sided sciatic a 02/19/2016 08/03/2018 Vitamin D deficiency 07/09/2010 08/03/2018 Overview: Vit D 26.4 at [facility] 07/01/2010 Impaired fasting glucose 10/06/2008 018 Elevated [...] of this encounter (statuses as of 06/04/2022) [facility] History of Past illness Narrative* Problem [...] pain 07/30/2018 08/03/2018 Overview: A/p Controlled with [employer] OFFICER fentanyl, scheduled lidoderm patches and tyenol, prn oxycodone Stress hyperglycemia 07/30/2018 08/05/2018 Overview: Continue SS. Hypovolemia/fluctuating lacic acidosis 8 08/02/2018 Overview: A/p albumin given x1 Discharge planning issues 07/29/20182020 Overview: Discharge to SNF 08.06.2018. Lives in [facility], alone but has supportive family. PT/OT/RT recommend SNF. Appointments requested with CTS AEROLOGIST and Cards. Preop testing 07/29/2018 08/03/2018 Overview: [...] AWARE OF ELEVATED CREATININE SIGNATURE: Bell Johnson APRN.RECRUITING ASSOCIATE CHECKED BY: LEE ANN DATE of SERVICE: 07/29/2018 TIME of SERVICE: 8:22 AM Encounter for preoperative a nesthesiology assessment for cardiac surgery 07/29/2018 08/29/2021 Bone metastasis 10/13/2017 08/29/2021 Overview: Added automatically from request for surgery [id number] Hypoxemia 05/20/2017 08/03/2018 Overview: Requiring HF O2 after extubation A/p Begin diuresis and oob to chair, wean O2 as able. 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 Left-sided low back pain with left-sided sciatic a 02/19/2016 08/03/2018 Vitamin D deficiency 07/09/2010 08/03/2018 Overview: Vit D 26.4 at [facility] 07/01/2010 Impaired fasting glucose 10/06/2008 018 Elevated [...] of this encounter (statuses as of 06/08/2022) [facility] History of Past illness Narrative* Problem [...] pain 07/30/2018 08/03/2018 Overview: A/p Controlled with [employer] OFFICER fentanyl, scheduled lidoderm patches and tyenol, prn oxycodone Stress hyperglycemia 07/30/2018 08/05/2018 Overview: Continue SS. Hypovolemia/fluctuating lacic acidosis 8 08/02/2018 Overview: A/p albumin given x1 Discharge planning issues 07/29/20182020 Overview: Discharge to SNF 08.06.2018. Lives in [facility], alone but has supportive family. PT/OT/RT recommend SNF. Appointments requested with CTS AEROLOGIST and Cards. Preop testing 07/29/2018 08/03/2018 Overview: [...] or exertion. Will obtain nocturnal oxygen from [employer]. Continue rescue inhaler as needed for relief [...] AWARE OF ELEVATED CREATININE SIGNATURE: Bell Johnson APRN.RECRUITING ASSOCIATE CHECKED BY: LEE ANN DATE of SERVICE: 07/29/2018 TIME of SERVICE: 8:22 AM Encounter for preoperative a nesthesiology assessment for cardiac surgery 07/29/2018 08/29/2021 Bone metastasis 10/13/2017 08/29/2021 Overview: Added automatically from request for surgery [id number] Hypoxemia 05/20/2017 08/03/2018 Overview: Requiring HF O2 after extubation A/p Begin diuresis and oob to chair, wean O2 as able. 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 Left-sided low back pain with left-sided sciatic a 02/19/2016 08/03/2018 Vitamin D deficiency 07/09/2010 08/03/2018 Overview: Vit D 26.4 at [facility] 07/01/2010 Impaired fasting glucose 10/06/2008 018 Elevated [...] of this encounter (statuses as of 07/05/2022) [facility] History of Past illness Narrative* Problem [...] pain 07/30/2018 08/03/2018 Overview: A/p Controlled with [employer] OFFICER fentanyl, scheduled lidoderm patches and tyenol, prn oxycodone Stress hyperglycemia 07/30/2018 08/05/2018 Overview: Continue SS. Hypovolemia/fluctuating lacic acidosis 8 08/02/2018 Overview: A/p albumin given x1 Discharge planning issues 07/29/20182020 Overview: Discharge to SNF 08.06.2018. Lives in [facility], alone but has supportive family. PT/OT/RT recommend SNF. Appointments requested with CTS AEROLOGIST and Cards. Preop testing 07/29/2018 08/03/2018 Overview: [...] AWARE OF ELEVATED CREATININE SIGNATURE: Bell Johnson APRN.RECRUITING ASSOCIATE CHECKED BY: LEE ANN DATE of SERVICE: 07/29/2018 TIME of SERVICE: 8:22 AM Encounter for preoperative a nesthesiology assessment for cardiac surgery 07/29/2018 08/29/2021 Bone metastasis 10/13/2017 08/29/2021 Overview: Added automatically from request for surgery [id number] Hypoxemia 05/20/2017 08/03/2018 Overview: Requiring HF O2 after extubation A/p Begin diuresis and oob to chair, wean O2 as able. 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 Left-sided low back pain with left-sided sciatic a 02/19/2016 08/03/2018 Vitamin D deficiency 07/09/2010 08/03/2018 Overview: Vit D 26.4 at [facility] 07/01/2010 Impaired fasting glucose 10/06/2008 018 Elevated [...] of this encounter (statuses as of 07/10/2022) [facility]09-30-2018 History of Past illness Narrative* Problem [...] pain 07/30/2018 08/03/2018 Overview: A/p Controlled with [employer] fentanyl, scheduled lidoderm patches and tyenol, prn oxycodone Stress hyperglycemia 07/30/2018 08/05/2018 Overview: Continue SS. Hypovolemia/fluctuating lacic acidosis 8 08/02/2018 Overview: A/p albumin given x1 Discharge planning issues 07/29/20182020 Overview: Discharge to SNF 08.06.2018. Lives in [facility], alone but has supportive family. PT/OT/RT recommend SNF. Appointments requested with CTS AEROLOGIST and Cards. Preop testing 07/29/2018 08/03/2018 Overview: [...] AWARE OF ELEVATED CREATININE SIGNATURE: Bell Johnson APRN.RECRUITING ASSOCIATE CHECKED BY: LEE ANN DATE of SERVICE: 07/29/2018 TIME of SERVICE: 8:22 AM Encounter for preoperative a nesthesiology assessment for cardiac surgery 07/29/2018 08/29/2021 Bone metastasis 10/13/2017 08/29/2021 Overview: Added automatically from request for surgery [id number] Hypoxemia 05/20/2017 08/03/2018 Overview: Requiring HF O2 after extubation A/p Begin diuresis and oob to chair, wean O2 as able. 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 Left-sided low back pain with left-sided sciatic a 02/19/2016 08/03/2018 Vitamin D deficiency 07/09/2010 08/03/2018 Overview: Vit D 26.4 at [facility] 07/01/2010 Impaired fasting glucose 10/06/2008 018 Elevated [...] of this encounter (statuses as of 07/11/2022) [facility]2018 History of Past illness Narrative* Problem [...] pain 07/30/2018 08/03/2018 Overview: A/p Controlled with [employer] fentanyl, scheduled lidoderm patches and tyenol, prn oxycodone Stress hyperglycemia 07/30/2018 08/05/2018 Overview: Continue SS. Hypovolemia/fluctuating lacic acidosis 8 08/02/2018 Overview: A/p albumin given x1 Discharge planning issues 07/29/20182020 Overview: Discharge to SNF 08.06.2018. Lives in [facility], alone but has supportive family. PT/OT/RT recommend SNF. Appointments requested with CTS AEROLOGIST and Cards. Preop testing 07/29/2018 08/03/2018 Overview: [...] AWARE OF ELEVATED CREATININE SIGNATURE: Bell Johnson APRN.RECRUITING ASSOCIATE CHECKED BY: LEE ANN DATE of SERVICE: 07/29/2018 TIME of SERVICE: 8:22 AM Encounter for preoperative a nesthesiology assessment for cardiac surgery 07/29/2018 08/29/2021 Bone metastasis 10/13/2017 08/29/2021 Overview: Added automatically from request for surgery [id number] Hypoxemia 05/20/2017 08/03/2018 Overview: Requiring HF O2 after extubation A/p Begin diuresis and oob to chair, wean O2 as able. 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 Left-sided low back pain with left-sided sciatic a 02/19/2016 08/03/2018 Vitamin D deficiency 07/09/2010 08/03/2018 Overview: Vit D 26.4 at [facility] 07/01/2010 Impaired fasting glucose 10/06/2008 018 Elevated [...] of this encounter (statuses as of 07/11/2022) [facility] History of Past illness Narrative* Problem [...] pain 07/30/2018 08/03/2018 Overview: A/p Controlled with [employer]ER fentanyl, scheduled lidoderm patches and tyenol, prn oxycodone Stress hyperglycemia 07/30/2018 08/05/2018 Overview: Continue SS. Hypovolemia/fluctuating lacic acidosis 8 08/02/2018 Overview: A/p albumin given x1 Discharge planning issues 07/29/20182020 Overview: Discharge to SNF 08.06.2018. Lives in [facility], alone but has supportive family. PT/OT/RT recommend SNF. Appointments requested with CTS AEROLOGIST and Cards. Preop testing 07/29/2018 08/03/2018 Overview: [...] AWARE OF ELEVATED CREATININE SIGNATURE: Bell Johnson APRN.RECRUITING ASSOCIATE CHECKED BY: LEE ANN DATE of SERVICE: 07/29/2018 TIME of SERVICE: 8:22 AM Encounter for preoperative a nesthesiology assessment for cardiac surgery 07/29/2018 08/29/2021 Bone metastasis 10/13/2017 08/29/2021 Overview: Added automatically from request for surgery [id number] Hypoxemia 05/20/2017 08/03/2018 Overview: Requiring HF O2 after extubation A/p Begin diuresis and oob to chair, wean O2 as able. 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 Left-sided low back pain with left-sided sciatic a 02/19/2016 08/03/2018 Vitamin D deficiency 07/09/2010 08/03/2018 Overview: Vit D 26.4 at [facility] 07/01/2010 Impaired fasting glucose 10/06/2008 018 Elevated [...] of this encounter (statuses as of 07/16/2022) [facility] History of Past illness Narrative* Problem [...] pain 07/30/2018 08/03/2018 Overview: A/p Controlled with [employer]ER fentanyl, scheduled lidoderm patches and tyenol, prn oxycodone Stress hyperglycemia 07/30/2018 08/05/2018 Overview: Continue SS. Hypovolemia/fluctuating lacic acidosis 8 08/02/2018 Overview: A/p albumin given x1 Discharge planning issues 07/29/20182020 Overview: Discharge to SNF 08.06.2018. Lives in [place], alone but has supportive family. PT/OT/RT recommend SNF. Appointments requested with CTS AEROLOGIST and Cards. Preop testing 07/29/2018 08/03/2018 Overview: [...] AWARE OF ELEVATED CREATININE SIGNATURE: Bell Johnson APRN.RECRUITING ASSOCIATE CHECKED BY: LEE ANN DATE of SERVICE: 07/29/2018 TIME of SERVICE: 8:22 AM Encounter for preoperative a nesthesiology assessment for cardiac surgery 07/29/2018 08/29/2021 Bone metastasis 10/13/2017 08/29/2021 Overview: Added automatically from request for surgery [id number] Hypoxemia 05/20/2017 08/03/2018 Overview: Requiring HF O2 after extubation A/p Begin diuresis and oob to chair, wean O2 as able. 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 Left-sided low back pain with left-sided sciatic a 02/19/2016 08/03/2018 Vitamin D deficiency 07/09/2010 08/03/2018 Overview: Vit D 26.4 at [facility] 07/01/2010 Impaired fasting glucose 10/06/2008 018 Elevated [...] of this encounter (statuses as of 08/05/2022) [facility] History of Past illness Narrative* Problem [...] pain 07/30/2018 08/03/2018 Overview: A/p Controlled with [employer]ER fentanyl, scheduled lidoderm patches and tyenol, prn oxycodone Stress hyperglycemia 07/30/2018 08/05/2018 Overview: Continue SS. Hypovolemia/fluctuating lacic acidosis 8 08/02/2018 Overview: A/p albumin given x1 Discharge planning issues 07/29/20182020 Overview: Discharge to SNF 08.06.2018. Lives in [facility], alone but has supportive family. PT/OT/RT recommend SNF. Appointments requested with CTS AEROLOGIST and Cards. Preop testing 07/29/2018 08/03/2018 Overview: [...] AWARE OF ELEVATED CREATININE SIGNATURE: Bell Johnson APRN.RECRUITING ASSOCIATE CHECKED BY: LEE ANN DATE of SERVICE: 07/29/2018 TIME of SERVICE: 8:22 AM Encounter for preoperative a nesthesiology assessment for cardiac surgery 07/29/2018 08/29/2021 Bone metastasis 10/13/2017 08/29/2021 Overview: Added automatically from request for surgery [id number] Hypoxemia 05/20/2017 08/03/2018 Overview: Requiring HF O2 after extubation A/p Begin diuresis and oob to chair, wean O2 as able. 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 Begin diuresis and monitor closely ARDHA (acute kidney injury) 08/01/20182017 Overview: History: Post-operative. Assessment: BUN/Cr normalizing Plan: Avoid hypotension. Renally dose medications Cardiac insufficiency 07/30/2018 07/31/2018 Overview: A/p Cardiac insuffiencey requiring epi, titrate for UO & monitor CVP On mechanically assisted ventilation 07/30/2018 07/31/2018 Overview: Grade 1 Airway A/p WTE Postoperative pain 07/30/2018 08/03/2018 Overview: A/p Controlled with [employer] OFF[employer]ER fentanyl, scheduled lidoderm patches and tyenol, prn oxycodone Stress hyperglycemia 07/30/2018 08/05/2018 Overview: Continue SS. Hypovolemia/fluctuating lacic acidosis 8 08/02/2018 Overview: A/p albumin given x1 Discharge planning issues 07/29/20182020 Overview: Discharge to SNF 08.06.2018. Lives in [facility], alone but has supportive family. PT/OT/RT recommend SNF. Appointments requested with CTS AEROLOGIST and Cards. Preop testing 07/29/2018 08/03/2018 Overview: [...] or exertion. Will obtain nocturnal oxygen from [employer]. Continue rescue inhaler as needed for relief [...] AWARE OF ELEVATED CREATININE SIGNATURE: Bell Johnson APRN.RECRUITING ASSOCIATE CHECKED BY: LEE ANN DATE of SERVICE: 07/29/2018 TIME of SERVICE: 8:22 AM Encounter for preoperative a nesthesiology assessment for cardiac surgery 07/29/2018 08/29/2021 Bone metastasis 10/13/2017 08/29/2021 Overview: Added automatically from request for surgery [id number] Hypoxemia 05/20/2017 08/03/2018 Overview: Requiring HF O2 after extubation A/p Begin diuresis and oob to chair, wean O2 as able. 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 Left-sided low back pain with left-sided sciatic a 02/19/2016 08/03/2018 Vitamin D deficiency 07/09/2010 08/03/2018 Overview: Vit D 26.4 at [facility] 07/01/2010 Impaired fasting glucose 10/06/2008 018 Elevated [...] of this encounter (statuses as of 08/15/2022) [facility] History of Past illness Narrative* Problem [...] pain 07/30/2018 08/03/2018 Overview: A/p Controlled with [employer] OFFICER fentanyl, scheduled lidoderm patches and tyenol, prn oxycodone Stress hyperglycemia 07/30/2018 08/05/2018 Overview: Continue SS. Hypovolemia/fluctuating lacic acidosis 8 08/02/2018 Overview: A/p albumin given x1 Discharge planning issues 07/29/20182020 Overview: Discharge to SNF 08.06.2018. Lives in [facility], alone but has supportive family. PT/OT/RT recommend SNF. Appointments requested with CTS AEROLOGIST and Cards. Preop testing 07/29/2018 08/03/2018 Overview: [...] N/A Implants: no Consults: 07/15 - Pulmonary -Aaliyha Stone PA-C RE: COPD Continue current maintenance [...] AWARE OF ELEVATED CREATININE SIGNATURE: Bell Johnson APRN.RECRUITING ASSOCIATE CHECKED BY: LEE ANN DATE of SERVICE: 07/29/2018 TIME of SERVICE: 8:22 AM Encounter for preoperative a nesthesiology assessment for cardiac surgery 07/29/2018 08/29/2021 Bone metastasis 10/13/2017 08/29/2021 Overview: Added automatically from request for surgery [id number] Hypoxemia 05/20/2017 08/03/2018 Overview: Requiring HF O2 after extubation A/p Begin diuresis and oob to chair, wean O2 as able. 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 Left-sided low back pain with left-sided sciatic a 02/19/2016 08/03/2018 Vitamin D deficiency 07/09/2010 08/03/2018 Overview: Vit D 26.4 at [facility] 07/01/2010 Impaired fasting glucose 10/06/2008 018 Elevated [...] of this encounter (statuses as of 08/22/2022) [facility] History of Past illness Narrative* Problem [...] pain 07/30/2018 08/03/2018 Overview: A/p Controlled with [employer] OFF[employer]ER fentanyl, scheduled lidoderm patches and tyenol, prn oxycodone Stress hyperglycemia 07/30/2018 08/05/2018 Overview: Continue SS. Hypovolemia/fluctuating lacic acidosis 8 08/02/2018 Overview: A/p albumin given x1 Discharge planning issues 07/29/20182020 Overview: Discharge to SNF 08.06.2018. Lives in [facility], alone but has supportive family. PT/OT/RT recommend SNF. Appointments requested with CTS AEROLOGIST and Cards. Preop testing 07/29/2018 08/03/2018 Overview: [...] months, sooner if needed. 06/14/18: Hematology - Mari aIsabel Tay MD RE: Small cell Lymphoma (in remission) - Continued observation and repeat CT chest abdomen pelvis in 3 months - proceed with valvular heart surgery and follow with cardiology. - Continue Coumadin. - repeat CBC, CMP, LDH, immunofixation & OV in 3 months. DM: No Cardiac Surgical prep: DR. JO AWARE OF ELEVATED CREATININE SIGNATURE: Bell Johnson APRN.RECRUITING ASSOCIATE CHECKED BY: LEE ANN DATE of SERVICE: 07/29/2018 TIME of SERVICE: 8:22 AM Encounter for preoperative a nesthesiology assessment for cardiac surgery 07/29/2018 08/29/2021 Bone metastasis 10/13/2017 08/29/2021 Overview: Added automatically from request for surgery [id number] Hypoxemia 05/20/2017 08/03/2018 Overview: Requiring HF O2 after extubation A/p Begin diuresis and oob to chair, wean O2 as able. 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 Left-sided low back pain with left-sided sciatic a 02/19/2016 08/03/2018 Vitamin D deficiency 07/09/2010 08/03/2018 Overview: Vit D 26.4 at [facility] 07/01/2010 Impaired fasting glucose 10/06/2008 018 Elevated [...] of this encounter (statuses as of 08/25/2022) [facility] History of Past illness Narrative* Problem [...] pain 07/30/2018 08/03/2018 Overview: A/p Controlled with [employer] OFF[employer]ER fentanyl, scheduled lidoderm patches and tyenol, prn oxycodone Stress hyperglycemia 07/30/2018 08/05/2018 Overview: Continue SS. Hypovolemia/fluctuating lacic acidosis 8 08/02/2018 Overview: A/p albumin given x1 Discharge planning issues 07/29/20182020 Overview: Discharge to SNF 08.06.2018. Lives in [facility], alone but has supportive family. PT/OT/RT recommend SNF. Appointments requested with CTS AEROLOGIST and Cards. Preop testing 07/29/2018 08/03/2018 Overview: [...] or exertion. Will obtain nocturnal oxygen from [employer]. Continue rescue inhaler as needed for relief [...] AWARE OF ELEVATED CREATININE SIGNATURE: Bell Johnson APRN.RECRUITING ASSOCIATE CHECKED BY: LEE ANN DATE of SERVICE: 07/29/2018 TIME of SERVICE: 8:22 AM Encounter for preoperative a nesthesiology assessment for cardiac surgery 07/29/2018 08/29/2021 Bone metastasis 10/13/2017 08/29/2021 Overview: Added automatically from request for surgery [id number] Hypoxemia 05/20/2017 08/03/2018 Overview: Requiring HF O2 after extubation A/p Begin diuresis and oob to chair, wean O2 as able. 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 Left-sided low back pain with left-sided sciatic a 02/19/2016 08/03/2018 Vitamin D deficiency 07/09/2010 08/03/2018 Overview: Vit D 26.4 at [facility] 07/01/2010 Impaired fasting glucose 10/06/2008 018 Elevated [...] of this encounter (statuses as of 08/28/2022) [facility] History of Past illness Narrative* Problem [...] pain 07/30/2018 08/03/2018 Overview: A/p Controlled with [employer] OFF[employer]ER fentanyl, scheduled lidoderm patches and tyenol, prn oxycodone Stress hyperglycemia 07/30/2018 08/05/2018 Overview: Continue SS. Hypovolemia/fluctuating lacic acidosis 8 08/02/2018 Overview: A/p albumin given x1 Discharge planning issues 07/29/20182020 Overview: Discharge to SNF 08.06.2018. Lives in [facility], alone but has supportive family. PT/OT/RT recommend SNF. Appointments requested with CTS AEROLOGIST and Cards. Preop testing 07/29/2018 08/03/2018 Overview: [...] AWARE OF ELEVATED CREATININE SIGNATURE: Bell Johnson APRN.RECRUITING ASSOCIATE CHECKED BY: LEE ANN DATE of SERVICE: 07/29/2018 TIME of SERVICE: 8:22 AM Encounter for preoperative a nesthesiology assessment for cardiac surgery 07/29/2018 08/29/2021 Bone metastasis 10/13/2017 08/29/2021 Overview: Added automatically from request for surgery [id number] Hypoxemia 05/20/2017 08/03/2018 Overview: Requiring HF O2 after extubation A/p Begin diuresis and oob to chair, wean O2 as able. 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 Left-sided low back pain with left-sided sciatic a 02/19/2016 08/03/2018 Vitamin D deficiency 07/09/2010 08/03/2018 Overview: Vit D 26.4 at [facility] 07/01/2010 Impaired fasting glucose 10/06/2008 018 Elevated [...] of this encounter (statuses as of 09/01/2022) [facility] History of Past illness Narrative* Problem [...] pain 07/30/2018 08/03/2018 Overview: A/p Controlled with [employer] OFFICER fentanyl, scheduled lidoderm patches and tyenol, prn oxycodone Stress hyperglycemia 07/30/2018 08/05/2018 Overview: Continue SS. Hypovolemia/fluctuating lacic acidosis 8 08/02/2018 Overview: A/p albumin given x1 Discharge planning issues 07/29/20182020 Overview: Discharge to SNF 08.06.2018. Lives in [place], alone but has supportive family. PT/OT/RT recommend SNF. Appointments requested with CTS AEROLOGIST and Cards. Preop testing 07/29/2018 08/03/2018 Overview: [...] AWARE OF ELEVATED CREATININE SIGNATURE: Bell Johnson APRN.RECRUITING ASSOCIATE CHECKED BY: LEE ANN DATE of SERVICE: 07/29/2018 TIME of SERVICE: 8:22 AM Encounter for preoperative a nesthesiology assessment for cardiac surgery 07/29/2018 08/29/2021 Bone metastasis 10/13/2017 08/29/2021 Overview: Added automatically from request for surgery [id number] Hypoxemia 05/20/2017 08/03/2018 Overview: Requiring HF O2 after extubation A/p Begin diuresis and oob to chair, wean O2 as able. 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 Left-sided low back pain with left-sided sciatic a 02/19/2016 08/03/2018 Vitamin D deficiency 07/09/2010 08/03/2018 Overview: Vit D 26.4 at [facility] 07/01/2010 Impaired fasting glucose 10/06/2008 018 Elevated [...] of this encounter (statuses as of 09/05/2022) [facility] History of Past illness Narrative* Problem [...] pain 07/30/2018 08/03/2018 Overview: A/p Controlled with [employer] OFFICER fentanyl, scheduled lidoderm patches and tyenol, prn oxycodone Stress hyperglycemia 07/30/2018 08/05/2018 Overview: Continue SS. Hypovolemia/fluctuating lacic acidosis 8 08/02/2018 Overview: A/p albumin given x1 Discharge planning issues 07/29/20182020 Overview: Discharge to SNF 08.06.2018. Lives in [facility], alone but has supportive family. PT/OT/RT recommend SNF. Appointments requested with CTS AEROLOGIST and Cards. Preop testing 07/29/2018 08/03/2018 Overview: [...] AWARE OF ELEVATED CREATININE SIGNATURE: Bell Johnson APRN.RECRUITING ASSOCIATE CHECKED BY: LEE ANN DATE of SERVICE: 07/29/2018 TIME of SERVICE: 8:22 AM Encounter for preoperative a nesthesiology assessment for cardiac surgery 07/29/2018 08/29/2021 Bone metastasis 10/13/2017 08/29/2021 Overview: Added automatically from request for surgery [id number] Hypoxemia 05/20/2017 08/03/2018 Overview: Requiring HF O2 after extubation A/p Begin diuresis and oob to chair, wean O2 as able. 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 Left-sided low back pain with left-sided sciatic a 02/19/2016 08/03/2018 Vitamin D deficiency 07/09/2010 08/03/2018 Overview: Vit D 26.4 at [facility] 07/01/2010 Impaired fasting glucose 10/06/2008 018 Elevated [...] of this encounter (statuses as of 09/19/2022) [facility] History of Past illness Narrative* Problem [...] pain 07/30/2018 08/03/2018 Overview: A/p Controlled with [employer] OFFICER fentanyl, scheduled lidoderm patches and tyenol, prn oxycodone Stress hyperglycemia 07/30/2018 08/05/2018 Overview: Continue SS. Hypovolemia/fluctuating lacic acidosis 8 08/02/2018 Overview: A/p albumin given x1 Discharge planning issues 07/29/20182020 Overview: Discharge to SNF 08.06.2018. Lives in [facility], alone but has supportive family. PT/OT/RT recommend SNF. Appointments requested with CTS AEROLOGIST and Cards. Preop testing 07/29/2018 08/03/2018 Overview: [...] or exertion. Will obtain nocturnal oxygen from [employer]. Continue rescue inhaler as needed for relief [...] AWARE OF ELEVATED CREATININE SIGNATURE: Bell Johnson APRN.RECRUITING ASSOCIATE CHECKED BY: LEE ANN DATE of SERVICE: 07/29/2018 TIME of SERVICE: 8:22 AM Encounter for preoperative a nesthesiology assessment for cardiac surgery 07/29/2018 08/29/2021 Bone metastasis 10/13/2017 08/29/2021 Overview: Added automatically from request for surgery [id number] Hypoxemia 05/20/2017 08/03/2018 Overview: Requiring HF O2 after extubation A/p Begin diuresis and oob to chair, wean O2 as able. 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 Left-sided low back pain with left-sided sciatic a 02/19/2016 08/03/2018 Vitamin D deficiency 07/09/2010 08/03/2018 Overview: Vit D 26.4 at [facility] 07/01/2010 Impaired fasting glucose 10/06/2008 018 Elevated [...] of this encounter (statuses as of 09/22/2022) [facility] History of Past illness Narrative* Problem [...] pain 07/30/2018 08/03/2018 Overview: A/p Controlled with [employer] OFFICER fentanyl, scheduled lidoderm patches and tyenol, prn oxycodone Stress hyperglycemia 07/30/2018 08/05/2018 Overview: Continue SS. Hypovolemia/fluctuating lacic acidosis 8 08/02/2018 Overview: A/p albumin given x1 Discharge planning issues 07/29/20182020 Overview: Discharge to SNF 08.06.2018. Lives in [facility], alone but has supportive family. PT/OT/RT recommend SNF. Appointments requested with CTS AEROLOGIST and Cards. Preop testing 07/29/2018 08/03/2018 Overview: [...] AWARE OF ELEVATED CREATININE SIGNATURE: Bell Johnson APRN.RECRUITING ASSOCIATE CHECKED BY: LEE ANN DATE of SERVICE: 07/29/2018 TIME of SERVICE: 8:22 AM Encounter for preoperative a nesthesiology assessment for cardiac surgery 07/29/2018 08/29/2021 Bone metastasis 10/13/2017 08/29/2021 Overview: Added automatically from request for surgery [id number] Hypoxemia 05/20/2017 08/03/2018 Overview: Requiring HF O2 after extubation A/p Begin diuresis and oob to chair, wean O2 as able. 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 Left-sided low back pain with left-sided sciatic a 02/19/2016 08/03/2018 Vitamin D deficiency 07/09/2010 08/03/2018 Overview: Vit D 26.4 at [facility] 07/01/2010 Impaired fasting glucose 10/06/2008 018 Elevated [...] of this encounter (statuses as of 09/22/2022) [facility] History of Past illness Narrative* Problem [...] pain 07/30/2018 08/03/2018 Overview: A/p Controlled with [employer] OFFICER fentanyl, scheduled lidoderm patches and tyenol, prn oxycodone Stress hyperglycemia 07/30/2018 08/05/2018 Overview: Continue SS. Hypovolemia/fluctuating lacic acidosis 8 08/02/2018 Overview: A/p albumin given x1 Discharge planning issues 07/29/20182020 Overview: Discharge to SNF 08.06.2018. Lives in [facility], alone but has supportive family. PT/OT/RT recommend SNF. Appointments requested with CTS AEROLOGIST and Cards. Preop testing 07/29/2018 08/03/2018 Overview: [...] or exertion. Will obtain nocturnal oxygen from [email or web address]. Continue rescue inhaler as needed for relief [...] AWARE OF ELEVATED CREATININE SIGNATURE: Bell Johnson APRN.RECRUITING ASSOCIATE CHECKED BY: LEE ANN DATE of SERVICE: 07/29/2018 TIME of SERVICE: 8:22 AM Encounter for preoperative a nesthesiology assessment for cardiac surgery 07/29/2018 08/29/2021 Bone metastasis 10/13/2017 08/29/2021 Overview: Added automatically from request for surgery [id number] Hypoxemia 05/20/2017 08/03/2018 Overview: Requiring HF O2 after extubation A/p Begin diuresis and oob to chair, wean O2 as able. 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 Left-sided low back pain with left-sided sciatic a 02/19/2016 08/03/2018 Vitamin D deficiency 07/09/2010 08/03/2018 Overview: Vit D 26.4 at [facility] 07/01/2010 Impaired fasting glucose 10/06/2008 018 Elevated [...] of this encounter (statuses as of 10/03/2022) [facility]09-30-2018 History of Past illness Narrative* Problem [...] pain 07/30/2018 08/03/2018 Overview: A/p Controlled with [employer] OFFICER fentanyl, scheduled lidoderm patches and tyenol, prn oxycodone Stress hyperglycemia 07/30/2018 08/05/2018 Overview: Continue SS. Hypovolemia/fluctuating lacic acidosis 8 08/02/2018 Overview: A/p albumin given x1 Discharge planning issues 07/29/20182020 Overview: Discharge to SNF 08.06.2018. Lives in [facility], alone but has supportive family. PT/OT/RT recommend SNF. Appointments requested with CTS AEROLOGIST and Cards. Preop testing 07/29/2018 08/03/2018 Overview: [...] or exertion. Will obtain nocturnal oxygen from [employer]. Continue rescue inhaler as needed for relief [...] AWARE OF ELEVATED CREATININE SIGNATURE: Bell Johnson APRN.RECRUITING ASSOCIATE CHECKED BY: LEE ANN DATE of SERVICE: 07/29/2018 TIME of SERVICE: 8:22 AM Encounter for preoperative a nesthesiology assessment for cardiac surgery 07/29/2018 08/29/2021 Bone metastasis 10/13/2017 08/29/2021 Overview: Added automatically from request for surgery [id number] Hypoxemia 05/20/2017 08/03/2018 Overview: Requiring HF O2 after extubation A/p Begin diuresis and oob to chair, wean O2 as able. 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 Left-sided low back pain with left-sided sciatic a 02/19/2016 08/03/2018 Vitamin D deficiency 07/09/2010 08/03/2018 Overview: Vit D 26.4 at [facility] 07/01/2010 Impaired fasting glucose 10/06/2008 018 Elevated [...] of this encounter (statuses as of 10/07/2022) [facility]09[facility]2018 History of Past illness Narrative* Problem [...] pain 07/30/2018 08/03/2018 Overview: A/p Controlled with [employer] OFFICER fentanyl, scheduled lidoderm patches and tyenol, prn oxycodone Stress hyperglycemia 07/30/2018 08/05/2018 Overview: Continue SS. Hypovolemia/fluctuating lacic acidosis 8 08/02/2018 Overview: A/p albumin given x1 Discharge planning issues 07/29/20182020 Overview: Discharge to SNF 08.06.2018. Lives in [facility], alone but has supportive family. PT/OT/RT recommend SNF. Appointments requested with CTS AEROLOGIST and Cards. Preop testing 07/29/2018 08/03/2018 Overview: [...] AWARE OF ELEVATED CREATININE SIGNATURE: Bell Johnson APRN.RECRUITING ASSOCIATE CHECKED BY: LEE ANN DATE of SERVICE: 07/29/2018 TIME of SERVICE: 8:22 AM Encounter for preoperative a nesthesiology assessment for cardiac surgery 07/29/2018 08/29/2021 Bone metastasis 10/13/2017 08/29/2021 Overview: Added automatically from request for surgery [id number] Hypoxemia 05/20/2017 08/03/2018 Overview: Requiring HF O2 after extubation A/p Begin diuresis and oob to chair, wean O2 as able. 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 Left-sided low back pain with left-sided sciatic a 02/19/2016 08/03/2018 Vitamin D deficiency 07/09/2010 08/03/2018 Overview: Vit D 26.4 at [facility] 07/01/2010 Impaired fasting glucose 10/06/2008 018 Elevated [...] of this encounter (statuses as of 10/18/2022) [facility] History of Past illness Narrative* Problem [...] pain 07/30/2018 08/03/2018 Overview: A/p Controlled with [employer] OFFICER fentanyl, scheduled lidoderm patches and tyenol, prn oxycodone Stress hyperglycemia 07/30/2018 08/05/2018 Overview: Continue SS. Hypovolemia/fluctuating lacic acidosis 8 08/02/2018 Overview: A/p albumin given x1 Discharge planning issues 07/29/20182020 Overview: Discharge to SNF 08.06.2018. Lives in [facility], alone but has supportive family. PT/OT/RT recommend SNF. Appointments requested with CTS AEROLOGIST and Cards. Preop testing 07/29/2018 08/03/2018 Overview: [...] AWARE OF ELEVATED CREATININE SIGNATURE: Bell Johnson APRN.RECRUITING ASSOCIATE CHECKED BY: LEE ANN DATE of SERVICE: 07/29/2018 TIME of SERVICE: 8:22 AM Encounter for preoperative a nesthesiology assessment for cardiac surgery 07/29/2018 08/29/2021 Bone metastasis 10/13/2017 08/29/2021 Overview: Added automatically from request for surgery [id number] Hypoxemia 05/20/2017 08/03/2018 Overview: Requiring HF O2 after extubation A/p Begin diuresis and oob to chair, wean O2 as able. 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 Left-sided low back pain with left-sided sciatic a 02/19/2016 08/03/2018 Vitamin D deficiency 07/09/2010 08/03/2018 Overview: Vit D 26.4 at [facility] 07/01/2010 Impaired fasting glucose 10/06/2008 018 Elevated [...] of this encounter (statuses as of 10/21/2022) [facility] History of Past illness Narrative* Problem [...] pain 07/30/2018 08/03/2018 Overview: A/p Controlled with [employer] OFFICER fentanyl, scheduled lidoderm patches and tyenol, prn oxycodone Stress hyperglycemia 07/30/2018 08/05/2018 Overview: Continue SS. Hypovolemia/fluctuating lacic acidosis 8 08/02/2018 Overview: A/p albumin given x1 Discharge planning issues 07/29/20182020 Overview: Discharge to SNF 08.06.2018. Lives in [facility], alone but has supportive family. PT/OT/RT recommend SNF. Appointments requested with CTS AEROLOGIST and Cards. Preop testing 07/29/2018 08/03/2018 Overview: [...] AWARE OF ELEVATED CREATININE SIGNATURE: Bell Johnson APRN.RECRUITING ASSOCIATE CHECKED BY: LEE ANN DATE of SERVICE: 07/29/2018 TIME of SERVICE: 8:22 AM Encounter for preoperative a nesthesiology assessment for cardiac surgery 07/29/2018 08/29/2021 Bone metastasis 10/13/2017 08/29/2021 Overview: Added automatically from request for surgery [id number] Hypoxemia 05/20/2017 08/03/2018 Overview: Requiring HF O2 after extubation A/p Begin diuresis and oob to chair, wean O2 as able. 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 Left-sided low back pain with left-sided sciatic a 02/19/2016 08/03/2018 Vitamin D deficiency 07/09/2010 08/03/2018 Overview: Vit D 26.4 at [facility] 07/01/2010 Impaired fasting glucose 10/06/2008 018 Elevated [...] of this encounter (statuses as of 11/21/2022) [facility] History of Past illness Narrative* Problem [...] pain 07/30/2018 08/03/2018 Overview: A/p Controlled with [employer] OFFICER fentanyl, scheduled lidoderm patches and tyenol, prn oxycodone Stress hyperglycemia 07/30/2018 08/05/2018 Overview: Continue SS. Hypovolemia/fluctuating lacic acidosis 8 08/02/2018 Overview: A/p albumin given x1 Discharge planning issues 07/29/20182020 Overview: Discharge to SNF 08.06.2018. Lives in [facility], alone but has supportive family. PT/OT/RT recommend SNF. Appointments requested with CTS AEROLOGIST and Cards. Preop testing 07/29/2018 08/03/2018 Overview: [...] or exertion. Will obtain nocturnal oxygen from [employer]. Continue rescue inhaler as needed for relief [...] AWARE OF ELEVATED CREATININE SIGNATURE: Bell Johnson APRN.RECRUITING ASSOCIATE CHECKED BY: LEE ANN DATE of SERVICE: 07/29/2018 TIME of SERVICE: 8:22 AM Encounter for preoperative a nesthesiology assessment for cardiac surgery 07/29/2018 08/29/2021 Bone metastasis 10/13/2017 08/29/2021 Overview: Added automatically from request for surgery [id number] Hypoxemia 05/20/2017 08/03/2018 Overview: Requiring HF O2 after extubation A/p Begin diuresis and oob to chair, wean O2 as able. 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 Left-sided low back pain with left-sided sciatic a 02/19/2016 08/03/2018 Vitamin D deficiency 07/09/2010 08/03/2018 Overview: Vit D 26.4 at [facility] 07/01/2010 Impaired fasting glucose 10/06/2008 018 Elevated [...] of this encounter (statuses as of 11/28/2022) [facility] History of Past illness Narrative* Problem [...] pain 07/30/2018 08/03/2018 Overview: A/p Controlled with [employer] OFFICER fentanyl, scheduled lidoderm patches and tyenol, prn oxycodone Stress hyperglycemia 07/30/2018 08/05/2018 Overview: Continue SS. Hypovolemia/fluctuating lacic acidosis 8 08/02/2018 Overview: A/p albumin given x1 Discharge planning issues 07/29/20182020 Overview: Discharge to SNF 08.06.2018. Lives in [facility], alone but has supportive family. PT/OT/RT recommend SNF. Appointments requested with CTS AEROLOGIST and Cards. Preop testing 07/29/2018 08/03/2018 Overview: [...] AWARE OF ELEVATED CREATININE SIGNATURE: Bell Johnson APRN.RECRUITING ASSOCIATE CHECKED BY: LEE ANN DATE of SERVICE: 07/29/2018 TIME of SERVICE: 8:22 AM Encounter for preoperative a nesthesiology assessment for cardiac surgery 07/29/2018 08/29/2021 Bone metastasis 10/13/2017 08/29/2021 Overview: Added automatically from request for surgery [id number] Hypoxemia 05/20/2017 08/03/2018 Overview: Requiring HF O2 after extubation A/p Begin diuresis and oob to chair, wean O2 as able. 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 Left-sided low back pain with left-sided sciatic a 02/19/2016 08/03/2018 Vitamin D deficiency 07/09/2010 08/03/2018 Overview: Vit D 26.4 at [facility] 07/01/2010 Impaired fasting glucose 10/06/2008 018 Elevated [...] of this encounter (statuses as of 12/03/2022) [facility] History of Past illness Narrative* Problem [...] pain 07/30/2018 08/03/2018 Overview: A/p Controlled with [employer] OFFICER fentanyl, scheduled lidoderm patches and tyenol, prn oxycodone Stress hyperglycemia 07/30/2018 08/05/2018 Overview: Continue SS. Hypovolemia/fluctuating lacic acidosis 8 08/02/2018 Overview: A/p albumin given x1 Discharge planning issues 07/29/20182020 Overview: Discharge to SNF 08.06.2018. Lives in [facility], alone but has supportive family. PT/OT/RT recommend SNF. Appointments requested with CTS AEROLOGIST and Cards. Preop testing 07/29/2018 08/03/2018 Overview: [...] AWARE OF ELEVATED CREATININE SIGNATURE: Bell Johnson APRN.RECRUITING ASSOCIATE CHECKED BY: LEE ANN DATE of SERVICE: 07/29/2018 TIME of SERVICE: 8:22 AM Encounter for preoperative a nesthesiology assessment for cardiac surgery 07/29/2018 08/29/2021 Bone metastasis 10/13/2017 08/29/2021 Overview: Added automatically from request for surgery [id number] Hypoxemia 05/20/2017 08/03/2018 Overview: Requiring HF O2 after extubation A/p Begin diuresis and oob to chair, wean O2 as able. 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 Left-sided low back pain with left-sided sciatic a 02/19/2016 08/03/2018 Vitamin D deficiency 07/09/2010 08/03/2018 Overview: Vit D 26.4 at [facility] 07/01/2010 Impaired fasting glucose 10/06/2008 018 Elevated [...] of this encounter (statuses as of 12/15/2022) [facility] History of Past illness Narrative* Problem [...] pain 07/30/2018 08/03/2018 Overview: A/p Controlled with [employer] OFFICER fentanyl, scheduled lidoderm patches and tyenol, prn oxycodone Stress hyperglycemia 07/30/2018 08/05/2018 Overview: Continue SS. Hypovolemia/fluctuating lacic acidosis 8 08/02/2018 Overview: A/p albumin given x1 Discharge planning issues 07/29/20182020 Overview: Discharge to SNF 08.06.2018. Lives in [facility], alone but has supportive family. PT/OT/RT recommend SNF. Appointments requested with CTS AEROLOGIST and Cards. Preop testing 07/29/2018 08/03/2018 Overview: [...] or exertion. Will obtain nocturnal oxygen from [employer]. Continue rescue inhaler as needed for relief [...] AWARE OF ELEVATED CREATININE SIGNATURE: Bell Johnson APRN.RECRUITING ASSOCIATE CHECKED BY: LEE ANN DATE of SERVICE: 07/29/2018 TIME of SERVICE: 8:22 AM Encounter for preoperative a nesthesiology assessment for cardiac surgery 07/29/2018 08/29/2021 Bone metastasis 10/13/2017 08/29/2021 Overview: Added automatically from request for surgery [id number] Hypoxemia 05/20/2017 08/03/2018 Overview: Requiring HF O2 after extubation A/p Begin diuresis and oob to chair, wean O2 as able. 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 Left-sided low back pain with left-sided sciatic a 02/19/2016 08/03/2018 Vitamin D deficiency 07/09/2010 08/03/2018 Overview: Vit D 26.4 at [facility] 07/01/2010 Impaired fasting glucose 10/06/2008 018 Elevated [...] of this encounter (statuses as of 12/20/2022) [facility] History of Past illness Narrative* Problem [...] pain 07/30/2018 08/03/2018 Overview: A/p Controlled with [employer] OFFICER fentanyl, scheduled lidoderm patches and tyenol, prn oxycodone Stress hyperglycemia 07/30/2018 08/05/2018 Overview: Continue SS. Hypovolemia/fluctuating lacic acidosis 8 08/02/2018 Overview: A/p albumin given x1 Discharge planning issues 07/29/20182020 Overview: Discharge to SNF 08.06.2018. Lives in [facility], alone but has supportive family. PT/OT/RT recommend SNF. Appointments requested with CTS AEROLOGIST and Cards. Preop testing 07/29/2018 08/03/2018 Overview: [...] AWARE OF ELEVATED CREATININE SIGNATURE: Bell Johnson APRN.RECRUITING ASSOCIATE CHECKED BY: LEE ANN DATE of SERVICE: 07/29/2018 TIME of SERVICE: 8:22 AM Encounter for preoperative a nesthesiology assessment for cardiac surgery 07/29/2018 08/29/2021 Bone metastasis 10/13/2017 08/29/2021 Overview: Added automatically from request for surgery [id number] Hypoxemia 05/20/2017 08/03/2018 Overview: Requiring HF O2 after extubation A/p Begin diuresis and oob to chair, wean O2 as able. 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 Left-sided low back pain with left-sided sciatic a 02/19/2016 08/03/2018 Vitamin D deficiency 07/09/2010 08/03/2018 Overview: Vit D 26.4 at [facility] 07/01/2010 Impaired fasting glucose 10/06/2008 018 Elevated [...] of this encounter (statuses as of 12/21/2022) [facility] History of Past illness Narrative* Problem [...] pain 07/30/2018 08/03/2018 Overview: A/p Controlled with [employer] OFFICER fentanyl, scheduled lidoderm patches and tyenol, prn oxycodone Stress hyperglycemia 07/30/2018 08/05/2018 Overview: Continue SS. Hypovolemia/fluctuating lacic acidosis 8 08/02/2018 Overview: A/p albumin given x1 Discharge planning issues 07/29/20182020 Overview: Discharge to SNF 08.06.2018. Lives in [facility], alone but has supportive family. PT/OT/RT recommend SNF. Appointments requested with CTS AEROLOGIST and Cards. Preop testing 07/29/2018 08/03/2018 Overview: [...] AWARE OF ELEVATED CREATININE SIGNATURE: Bell Johnson APRN.RECRUITING ASSOCIATE CHECKED BY: LEE ANN DATE of SERVICE: 07/29/2018 TIME of SERVICE: 8:22 AM Encounter for preoperative a nesthesiology assessment for cardiac surgery 07/29/2018 08/29/2021 Bone metastasis 10/13/2017 08/29/2021 Overview: Added automatically from request for surgery [id number] Hypoxemia 05/20/2017 08/03/2018 Overview: Requiring HF O2 after extubation A/p Begin diuresis and oob to chair, wean O2 as able. 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 Left-sided low back pain with left-sided sciatic a 02/19/2016 08/03/2018 Vitamin D deficiency 07/09/2010 08/03/2018 Overview: Vit D 26.4 at [facility] 07/01/2010 Impaired fasting glucose 10/06/2008 018 Elevated [...] of this encounter (statuses as of 01/01/2023) [facility] History of Past illness Narrative* Problem [...] pain 07/30/2018 08/03/2018 Overview: A/p Controlled with [employer] OFFICER fentanyl, scheduled lidoderm patches and tyenol, prn oxycodone Stress hyperglycemia 07/30/2018 08/05/2018 Overview: Continue SS. Hypovolemia/fluctuating lacic acidosis 8 08/02/2018 Overview: A/p albumin given x1 Discharge planning issues 07/29/20182020 Overview: Discharge to SNF 08.06.2018. Lives in [facility], alone but has supportive family. PT/OT/RT recommend SNF. Appointments requested with CTS AEROLOGIST and Cards. Preop testing 07/29/2018 08/03/2018 Overview: [...] AWARE OF ELEVATED CREATININE SIGNATURE: Bell Johnson APRN.RECRUITING ASSOCIATE CHECKED BY: LEE ANN DATE of SERVICE: 07/29/2018 TIME of SERVICE: 8:22 AM Encounter for preoperative a nesthesiology assessment for cardiac surgery 07/29/2018 08/29/2021 Bone metastasis 10/13/2017 08/29/2021 Overview: Added automatically from request for surgery [id number] Hypoxemia 05/20/2017 08/03/2018 Overview: Requiring HF O2 after extubation A/p Begin diuresis and oob to chair, wean O2 as able. 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 Left-sided low back pain with left-sided sciatic a 02/19/2016 08/03/2018 Vitamin D deficiency 07/09/2010 08/03/2018 Overview: Vit D 26.4 at [facility] 07/01/2010 Impaired fasting glucose 10/06/2008 018 Elevated [...] of this encounter (statuses as of 01/29/2023) [facility] History of Past illness Narrative* Problem [...] pain 07/30/2018 08/03/2018 Overview: A/p Controlled with [employer] OFFICER fentanyl, scheduled lidoderm patches and tyenol, prn oxycodone Stress hyperglycemia 07/30/2018 08/05/2018 Overview: Continue SS. Hypovolemia/fluctuating lacic acidosis 8 08/02/2018 Overview: A/p albumin given x1 Discharge planning issues 07/29/20182020 Overview: Discharge to SNF 08.06.2018. Lives in [facility], alone but has supportive family. PT/OT/RT recommend SNF. Appointments requested with CTS AEROLOGIST and Cards. Preop testing 07/29/2018 08/03/2018 Overview: [...] or exertion. Will obtain nocturnal oxygen from [employer]. Continue rescue inhaler as needed for relief [...] AWARE OF ELEVATED CREATININE SIGNATURE: Bell Johnson APRN.RECRUITING ASSOCIATE CHECKED BY: LEE ANN DATE of SERVICE: 07/29/2018 TIME of SERVICE: 8:22 AM Encounter for preoperative a nesthesiology assessment for cardiac surgery 07/29/2018 08/29/2021 Bone metastasis 10/13/2017 08/29/2021 Overview: Added automatically from request for surgery [id number] Hypoxemia 05/20/2017 08/03/2018 Overview: Requiring HF O2 after extubation A/p Begin diuresis and oob to chair, wean O2 as able. 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 Left-sided low back pain with left-sided sciatic a 02/19/2016 08/03/2018 Vitamin D deficiency 07/09/2010 08/03/2018 Overview: Vit D 26.4 at [facility] 07/01/2010 Impaired fasting glucose 10/06/2008 018 Elevated [...] of this encounter (statuses as of 02/03/2023) [facility] History of Past illness Narrative* Problem [...] pain 07/30/2018 08/03/2018 Overview: A/p Controlled with [employer] OFFICER fentanyl, scheduled lidoderm patches and tyenol, prn oxycodone Stress hyperglycemia 07/30/2018 08/05/2018 Overview: Continue SS. Hypovolemia/fluctuating lacic acidosis 8 08/02/2018 Overview: A/p albumin given x1 Discharge planning issues 07/29/20182020 Overview: Discharge to SNF 08.06.2018. Lives in [facility], alone but has supportive family. PT/OT/RT recommend SNF. Appointments requested with CTS AEROLOGIST and Cards. Preop testing 07/29/2018 08/03/2018 Overview: [...] AWARE OF ELEVATED CREATININE SIGNATURE: Bell Johnson APRN.RECRUITING ASSOCIATE CHECKED BY: LEE ANN DATE of SERVICE: 07/29/2018 TIME of SERVICE: 8:22 AM Encounter for preoperative a nesthesiology assessment for cardiac surgery 07/29/2018 08/29/2021 Bone metastasis 10/13/2017 08/29/2021 Overview: Added automatically from request for surgery [id number] Hypoxemia 05/20/2017 08/03/2018 Overview: Requiring HF O2 after extubation A/p Begin diuresis and oob to chair, wean O2 as able. 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 Left-sided low back pain with left-sided sciatic a 02/19/2016 08/03/2018 Vitamin D deficiency 07/09/2010 08/03/2018 Overview: Vit D 26.4 at [facility] 07/01/2010 Impaired fasting glucose 10/06/2008 018 Elevated [...] of this encounter (statuses as of 02/11/2023) [facility] History of Past illness Narrative* Problem [...] pain 07/30/2018 08/03/2018 Overview: A/p Controlled with [employer] OFFICER fentanyl, scheduled lidoderm patches and tyenol, prn oxycodone Stress hyperglycemia 07/30/2018 08/05/2018 Overview: Continue SS. Hypovolemia/fluctuating lacic acidosis 8 08/02/2018 Overview: A/p albumin given x1 Discharge planning issues 07/29/20182020 Overview: Discharge to SNF 08.06.2018. Lives in [facility], alone but has supportive family. PT/OT/RT recommend SNF. Appointments requested with CTS AEROLOGIST and Cards. Preop testing 07/29/2018 08/03/2018 Overview: [...] AWARE OF ELEVATED CREATININE SIGNATURE: Bell Johnson APRN.RECRUITING ASSOCIATE CHECKED BY: LEE ANN DATE of SERVICE: 07/29/2018 TIME of SERVICE: 8:22 AM Encounter for preoperative a nesthesiology assessment for cardiac surgery 07/29/2018 08/29/2021 Bone metastasis 10/13/2017 08/29/2021 Overview: Added automatically from request for surgery [id number] Hypoxemia 05/20/2017 08/03/2018 Overview: Requiring HF O2 after extubation A/p Begin diuresis and oob to chair, wean O2 as able. 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 Left-sided low back pain with left-sided sciatic a 02/19/2016 08/03/2018 Vitamin D deficiency 07/09/2010 08/03/2018 Overview: Vit D 26.4 at [facility] 07/01/2010 Impaired fasting glucose 10/06/2008 018 Elevated [...] of this encounter (statuses as of 02/12/2023) [facility] History of Past illness Narrative* Problem [...] pain 07/30/2018 08/03/2018 Overview: A/p Controlled with [employer] OFFICER fentanyl, scheduled lidoderm patches and tyenol, prn oxycodone Stress hyperglycemia 07/30/2018 08/05/2018 Overview: Continue SS. Hypovolemia/fluctuating lacic acidosis 8 08/02/2018 Overview: A/p albumin given x1 Discharge planning issues 07/29/20182020 Overview: Discharge to SNF 08.06.2018. Lives in [facility], alone but has supportive family. PT/OT/RT recommend SNF. Appointments requested with CTS AEROLOGIST and Cards. Preop testing 07/29/2018 08/03/2018 Overview: [...] AWARE OF ELEVATED CREATININE SIGNATURE: Bell Johnson APRN.RECRUITING ASSOCIATE CHECKED BY: LEE ANN DATE of SERVICE: 07/29/2018 TIME of SERVICE: 8:22 AM Encounter for preoperative a nesthesiology assessment for cardiac surgery 07/29/2018 08/29/2021 Bone metastasis 10/13/2017 08/29/2021 Overview: Added automatically from request for surgery [id number] Hypoxemia 05/20/2017 08/03/2018 Overview: Requiring HF O2 after extubation A/p Begin diuresis and oob to chair, wean O2 as able. 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 Left-sided low back pain with left-sided sciatic a 02/19/2016 08/03/2018 Vitamin D deficiency 07/09/2010 08/03/2018 Overview: Vit D 26.4 at [facility] 07/01/2010 Impaired fasting glucose 10/06/2008 018 Elevated [...] of this encounter (statuses as of 02/13/2023) [facility]09-[facility]2018 History of Past illness Narrative* Problem [...] pain 07/30/2018 08/03/2018 Overview: A/p Controlled with [employer] OFFICER fentanyl, scheduled lidoderm patches and tyenol, prn oxycodone Stress hyperglycemia 07/30/2018 08/05/2018 Overview: Continue SS. Hypovolemia/fluctuating lacic acidosis 8 08/02/2018 Overview: A/p albumin given x1 Discharge planning issues 07/29/20182020 Overview: Discharge to SNF 08.06.2018. Lives in [facility], alone but has supportive family. PT/OT/RT recommend SNF. Appointments requested with CTS AEROLOGIST and Cards. Preop testing 07/29/2018 08/03/2018 Overview: [...] AWARE OF ELEVATED CREATININE SIGNATURE: Bell Johnson APRN.RECRUITING ASSOCIATE CHECKED BY: LEE ANN DATE of SERVICE: 07/29/2018 TIME of SERVICE: 8:22 AM Encounter for preoperative a nesthesiology assessment for cardiac surgery 07/29/2018 08/29/2021 Bone metastasis 10/13/2017 08/29/2021 Overview: Added automatically from request for surgery [id number] Hypoxemia 05/20/2017 08/03/2018 Overview: Requiring HF O2 after extubation A/p Begin diuresis and oob to chair, wean O2 as able. 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 Left-sided low back pain with left-sided sciatic a 02/19/2016 08/03/2018 Vitamin D deficiency 07/09/2010 08/03/2018 Overview: Vit D 26.4 at [facility] 07/01/2010 Impaired fasting glucose 10/06/2008 018 Elevated [...] of this encounter (statuses as of 02/16/2023) [facility] History of Past illness Narrative* Problem [...] pain 07/30/2018 08/03/2018 Overview: A/p Controlled with [employer] OFFICER fentanyl, scheduled lidoderm patches and tyenol, prn oxycodone Stress hyperglycemia 07/30/2018 08/05/2018 Overview: Continue SS. Hypovolemia/fluctuating lacic acidosis 8 08/02/2018 Overview: A/p albumin given x1 Discharge planning issues 07/29/20182020 Overview: Discharge to SNF 08.06.2018. Lives in [facility], alone but has supportive family. PT/OT/RT recommend SNF. Appointments requested with CTS AEROLOGIST and Cards. Preop testing 07/29/2018 08/03/2018 Overview: [...] AWARE OF ELEVATED CREATININE SIGNATURE: Bell Johnson APRN.RECRUITING ASSOCIATE CHECKED BY: LEE ANN DATE of SERVICE: 07/29/2018 TIME of SERVICE: 8:22 AM Encounter for preoperative a nesthesiology assessment for cardiac surgery 07/29/2018 08/29/2021 Bone metastasis 10/13/2017 08/29/2021 Overview: Added automatically from request for surgery [id number] Hypoxemia 05/20/2017 08/03/2018 Overview: Requiring HF O2 after extubation A/p Begin diuresis and oob to chair, wean O2 as able. 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 Left-sided low back pain with left-sided sciatic a 02/19/2016 08/03/2018 Vitamin D deficiency 07/09/2010 08/03/2018 Overview: Vit D 26.4 at [facility] 07/01/2010 Impaired fasting glucose 10/06/2008 018 Elevated [...] of this encounter (statuses as of 02/16/2023) [facility] History of Past illness Narrative* Problem [...] pain 07/30/2018 08/03/2018 Overview: A/p Controlled with [employer] OFFICER fentanyl, scheduled lidoderm patches and tyenol, prn oxycodone Stress hyperglycemia 07/30/2018 08/05/2018 Overview: Continue SS. Hypovolemia/fluctuating lacic acidosis 8 08/02/2018 Overview: A/p albumin given x1 Discharge planning issues 07/29/20182020 Overview: Discharge to SNF 08.06.2018. Lives in [facility], alone but has supportive family. PT/OT/RT recommend SNF. Appointments requested with CTS AEROLOGIST and Cards. Preop testing 07/29/2018 08/03/2018 Overview: [...] AWARE OF ELEVATED CREATININE SIGNATURE: Bell Johnson APRN.RECRUITING ASSOCIATE CHECKED BY: LEE ANN DATE of SERVICE: 07/29/2018 TIME of SERVICE: 8:22 AM Encounter for preoperative a nesthesiology assessment for cardiac surgery 07/29/2018 08/29/2021 Bone metastasis 10/13/2017 08/29/2021 Overview: Added automatically from request for surgery [id number] Hypoxemia 05/20/2017 08/03/2018 Overview: Requiring HF O2 after extubation A/p Begin diuresis and oob to chair, wean O2 as able. 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 Left-sided low back pain with left-sided sciatic a 02/19/2016 08/03/2018 Vitamin D deficiency 07/09/2010 08/03/2018 Overview: Vit D 26.4 at [facility] 07/01/2010 Impaired fasting glucose 10/06/2008 018 Elevated [...] of this encounter (statuses as of 03/09/2023) [facility] History of Past illness Narrative* Problem [...] pain 07/30/2018 08/03/2018 Overview: A/p Controlled with [employer] OFFICER fentanyl, scheduled lidoderm patches and tyenol, prn oxycodone Stress hyperglycemia 07/30/2018 08/05/2018 Overview: Continue SS. Hypovolemia/fluctuating lacic acidosis 8 08/02/2018 Overview: A/p albumin given x1 Discharge planning issues 07/29/20182020 Overview: Discharge to SNF 08.06.2018. Lives in [facility], alone but has supportive family. PT/OT/RT recommend SNF. Appointments requested with CTS AEROLOGIST and Cards. Preop testing 07/29/2018 08/03/2018 Overview: [...] or exertion. Will obtain nocturnal oxygen from [employer]. Continue rescue inhaler as needed for relief [...] AWARE OF ELEVATED CREATININE SIGNATURE: Bell Johnson APRN.RECRUITING ASSOCIATE CHECKED BY: LEE ANN DATE of SERVICE: 07/29/2018 TIME of SERVICE: 8:22 AM Encounter for preoperative a nesthesiology assessment for cardiac surgery 07/29/2018 08/29/2021 Bone metastasis 10/13/2017 08/29/2021 Overview: Added automatically from request for surgery [id number] Hypoxemia 05/20/2017 08/03/2018 Overview: Requiring HF O2 after extubation A/p Begin diuresis and oob to chair, wean O2 as able. 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 Left-sided low back pain with left-sided sciatic a 02/19/2016 08/03/2018 Vitamin D deficiency 07/09/2010 08/03/2018 Overview: Vit D 26.4 at [facility] 07/01/2010 Impaired fasting glucose 10/06/2008 018 Elevated [...] of this encounter (statuses as of 04/13/2023) [facility] History of Past illness Narrative* Problem [...] pain 07/30/2018 08/03/2018 Overview: A/p Controlled with [employer] OFFICER fentanyl, scheduled lidoderm patches and tyenol, prn oxycodone Stress hyperglycemia 07/30/2018 08/05/2018 Overview: Continue SS. Hypovolemia/fluctuating lacic acidosis 8 08/02/2018 Overview: A/p albumin given x1 Discharge planning issues 07/29/20182020 Overview: Discharge to SNF 08.06.2018. Lives in [facility], alone but has supportive family. PT/OT/RT recommend SNF. Appointments requested with CTS AEROLOGIST and Cards. Preop testing 07/29/2018 08/03/2018 Overview: [...] AWARE OF ELEVATED CREATININE SIGNATURE: Bell Johnson APRN.RECRUITING ASSOCIATE CHECKED BY: LEE ANN DATE of SERVICE: 07/29/2018 TIME of SERVICE: 8:22 AM Encounter for preoperative a nesthesiology assessment for cardiac surgery 07/29/2018 08/29/2021 Bone metastasis 10/13/2017 08/29/2021 Overview: Added automatically from request for surgery [id number] Hypoxemia 05/20/2017 08/03/2018 Overview: Requiring HF O2 after extubation A/p Begin diuresis and oob to chair, wean O2 as able. 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 Left-sided low back pain with left-sided sciatic a 02/19/2016 08/03/2018 Vitamin D deficiency 07/09/2010 08/03/2018 Overview: Vit D 26.4 at [facility] 07/01/2010 Impaired fasting glucose 10/06/2008 018 Elevated [...] of this encounter (statuses as of 04/21/2023) [facility] History of Past illness Narrative* Problem [...] pain 07/30/2018 08/03/2018 Overview: A/p Controlled with [employer] OFFICER fentanyl, scheduled lidoderm patches and tyenol, prn oxycodone Stress hyperglycemia 07/30/2018 08/05/2018 Overview: Continue SS. Hypovolemia/fluctuating lacic acidosis 8 08/02/2018 Overview: A/p albumin given x1 Discharge planning issues 07/29/20182020 Overview: Discharge to SNF 08.06.2018. Lives in [facility], alone but has supportive family. PT/OT/RT recommend SNF. Appointments requested with CTS AEROLOGIST and Cards. Preop testing 07/29/2018 08/03/2018 Overview: [...] or exertion. Will obtain nocturnal oxygen from [email or web address]. Continue rescue inhaler as needed for relief [...] AWARE OF ELEVATED CREATININE SIGNATURE: Bell Johnson APRN.RECRUITING ASSOCIATE CHECKED BY: LEE ANN DATE of SERVICE: 07/29/2018 TIME of SERVICE: 8:22 AM Encounter for preoperative a nesthesiology assessment for cardiac surgery 07/29/2018 08/29/2021 Bone metastasis 10/13/2017 08/29/2021 Overview: Added automatically from request for surgery [id number] Hypoxemia 05/20/2017 08/03/2018 Overview: Requiring HF O2 after extubation A/p Begin diuresis and oob to chair, wean O2 as able. 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 Hypovolemia/fluctuating lacic acidosis 07/30/2018 08/02/2018 Overview: A/p albumin given x1 Discharge planning issues 07/29/2018 Overview: Discharge to SNF 08.06.2018. Lives in [facility], alone but has supportive family. PT/OT/RT recommend SNF. Appointments requested with CTS AEROLOGIST and Cards. Preop testing 07/29/2018 08/03/2018 Overview: [...] or exertion. Will obtain nocturnal oxygen from [employer]. Continue rescue inhaler as needed for relief [...] AWARE OF ELEVATED CREATININE SIGNATURE: Bell Johnson APRN.RECRUITING ASSOCIATE CHECKED BY: LEE ANN DATE of SERVICE: 07/29/2018 TIME of SERVICE: 8:22 AM Encounter for preoperative a nesthesiology assessment for cardiac surgery 07/29/2018 Bone metastasis 10/13/2017 08/29/2021 Overview: Added automatically from request for surgery [id number] Hypoxemia 05/20/2017 08/03/2018 Overview: Requiring HF O2 after extubation A/p Begin diuresis and oob to chair, wean O2 as able. 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 08/03/2018 Left-sided low back pain wit h left-sided sciatica 02/19/2016 08/03/2018 Vitamin D deficiency 07/09/2010 018 Overview: Vit D 26.4 at [facility] 07/01/2010 Impaired fasting glucose 10/06/200812/2017 Elevated blood [...] of this encounter (statuses as of 07/13/2023) [facility] History of Past illness Narrative* Problem [...] pain 07/30/2018 8 Overview: A/p Controlled with [employer] OFFICER fentanyl, scheduled lidoderm patches and tyenol, prn oxycodone Stress hyperglycemia 07/30/2018 018 Overview: Continue SS. Hypovolemia/fluctuating lacic acidosis 07/30/2018 08/02/2018 Overview: A/p albumin given x1 Discharge planning issues 07/29/2018 Overview: Discharge to SNF 08.06.2018. Lives in [facility], alone but has supportive family. PT/OT/RT recommend SNF. Appointments requested with CTS AEROLOGIST and Cards. Preop testing 07/29/2018 08/03/2018 Overview: [...] AWARE OF ELEVATED CREATININE SIGNATURE: Bell Johnson APRN.RECRUITING ASSOCIATE CHECKED BY: LEE ANN DATE of SERVICE: 07/29/2018 TIME of SERVICE: 8:22 AM Encounter for preoperative a nesthesiology assessment for cardiac surgery 07/29/2018 Bone metastasis 10/13/2017 08/29/2021 Overview: Added automatically from request for surgery [id number] Hypoxemia 05/20/2017 08/03/2018 Overview: Requiring HF O2 after extubation A/p Begin diuresis and oob to chair, wean O2 as able. 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 08/03/2018 Left-sided low back pain wit h left-sided sciatica 02/19/2016 08/03/2018 Vitamin D deficiency 07/09/2010 018 Overview: Vit D 26.4 at [facility] 07/01/2010 Impaired fasting glucose 10/06/200812/2017 Elevated blood [...] of this encounter (statuses as of 07/24/2023) [facility] History of Past illness Narrative* Problem [...] pain 07/30/2018 8 Overview: A/p Controlled with [employer] OFFICER fentanyl, scheduled lidoderm patches and tyenol, prn oxycodone Stress hyperglycemia 07/30/2018 018 Overview: Continue SS. Hypovolemia/fluctuating lacic acidosis 07/30/2018 08/02/2018 Overview: A/p albumin given x1 Discharge planning issues 07/29/2018 Overview: Discharge to SNF 08.06.2018. Lives in [place], alone but has supportive family. PT/OT/RT recommend SNF. Appointments requested with CTS AEROLOGIST and Cards. Preop testing 07/29/2018 08/03/2018 Overview: [...] AWARE OF ELEVATED CREATININE SIGNATURE: Bell Johnson APRN.RECRUITING ASSOCIATE CHECKED BY: LEE ANN DATE of SERVICE: 07/29/2018 TIME of SERVICE: 8:22 AM Encounter for preoperative a nesthesiology assessment for cardiac surgery 07/29/2018 Bone metastasis 10/13/2017 08/29/2021 Overview: Added automatically from request for surgery [id number] Hypoxemia 05/20/2017 08/03/2018 Overview: Requiring HF O2 after extubation A/p Begin diuresis and oob to chair, wean O2 as able. 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 08/03/2018 Left-sided low back pain wit h left-sided sciatica 02/19/2016 08/03/2018 Vitamin D deficiency 07/09/2010 018 Overview: Vit D 26.4 at [facility] 07/01/2010 Impaired fasting glucose 10/06/200812/2017 Elevated blood [...] of this encounter (statuses as of 08/03/2023) [facility] History of Past illness Narrative* Problem [...] pain 07/30/2018 8 Overview: A/p Controlled with [employer] OFFICER fentanyl, scheduled lidoderm patches and tyenol, prn oxycodone Stress hyperglycemia 07/30/2018 018 Overview: Continue SS. Hypovolemia/fluctuating lacic acidosis 07/30/2018 08/02/2018 Overview: A/p albumin given x1 Discharge planning issues 07/29/2018 Overview: Discharge to SNF 08.06.2018. Lives in [facility], alone but has supportive family. PT/OT/RT recommend SNF. Appointments requested with CTS AEROLOGIST and Cards. Preop testing 07/29/2018 08/03/2018 Overview: [...] AWARE OF ELEVATED CREATININE SIGNATURE: Bell Johnson APRN.RECRUITING ASSOCIATE CHECKED BY: LEE ANN DATE of SERVICE: 07/29/2018 TIME of SERVICE: 8:22 AM Encounter for preoperative a nesthesiology assessment for cardiac surgery 07/29/2018 Bone metastasis 10/13/2017 08/29/2021 Overview: Added automatically from request for surgery [id number] Hypoxemia 05/20/2017 08/03/2018 Overview: Requiring HF O2 after extubation A/p Begin diuresis and oob to chair, wean O2 as able. 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 08/03/2018 Left-sided low back pain wit h left-sided sciatica 02/19/2016 08/03/2018 Vitamin D deficiency 07/09/2010 018 Overview: Vit D 26.4 at [facility] 07/01/2010 Impaired fasting glucose 10/06/200812/2017 Elevated blood [...] of this encounter (statuses as of 08/17/2023) [facility] History of Past illness Narrative* Problem [...] pain 07/30/2018 8 Overview: A/p Controlled with [employer] OFFICER fentanyl, scheduled lidoderm patches and tyenol, prn oxycodone Stress hyperglycemia 07/30/2018 018 Overview: Continue SS. Hypovolemia/fluctuating lacic acidosis 07/30/2018 08/02/2018 Overview: A/p albumin given x1 Discharge planning issues 07/29/2018 Overview: Discharge to SNF 08.06.2018. Lives in [facility], alone but has supportive family. PT/OT/RT recommend SNF. Appointments requested with CTS AEROLOGIST and Cards. Preop testing 07/29/2018 08/03/2018 Overview: [...] or exertion. Will obtain nocturnal oxygen from [employer]. Continue rescue inhaler as needed for relief [...] AWARE OF ELEVATED CREATININE SIGNATURE: Bell Johnson APRN.RECRUITING ASSOCIATE CHECKED BY: LEE ANN DATE of SERVICE: 07/29/2018 TIME of SERVICE: 8:22 AM Encounter for preoperative a nesthesiology assessment for cardiac surgery 07/29/2018 Bone metastasis 10/13/2017 08/29/2021 Overview: Added automatically from request for surgery [id number] Hypoxemia 05/20/2017 08/03/2018 Overview: Requiring HF O2 after extubation A/p Begin diuresis and oob to chair, wean O2 as able. 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 08/03/2018 Left-sided low back pain wit h left-sided sciatica 02/19/2016 08/03/2018 Vitamin D deficiency 07/09/2010 018 Overview: Vit D 26.4 at [facility] 07/01/2010 Impaired fasting glucose 10/06/200812/2017 Elevated blood [...] of this encounter (statuses as of 08/25/2023) [facility] History of Past illness Narrative* Problem [...] pain 07/30/2018 8 Overview: A/p Controlled with [employer] OFFICER fentanyl, scheduled lidoderm patches and tyenol, prn oxycodone Stress hyperglycemia 07/30/2018 018 Overview: Continue SS. Hypovolemia/fluctuating lacic acidosis 07/30/2018 08/02/2018 Overview: A/p albumin given x1 Discharge planning issues 07/29/2018 Overview: Discharge to SNF 08.06.2018. Lives in [facility], alone but has supportive family. PT/OT/RT recommend SNF. Appointments requested with CTS AEROLOGIST and Cards. Preop testing 07/29/2018 08/03/2018 Overview: [...] AWARE OF ELEVATED CREATININE SIGNATURE: Bell Johnson APRN.RECRUITING ASSOCIATE CHECKED BY: LEE ANN DATE of SERVICE: 07/29/2018 TIME of SERVICE: 8:22 AM Encounter for preoperative a nesthesiology assessment for cardiac surgery 07/29/2018 Bone metastasis 10/13/2017 08/29/2021 Overview: Added automatically from request for surgery [id number] Hypoxemia 05/20/2017 08/03/2018 Overview: Requiring HF O2 after extubation A/p Begin diuresis and oob to chair, wean O2 as able. 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 08/03/2018 Left-sided low back pain wit h left-sided sciatica 02/19/2016 08/03/2018 Vitamin D deficiency 07/09/2010 018 Overview: Vit D 26.4 at [facility] 07/01/2010 Impaired fasting glucose 10/06/200812/2017 Elevated blood [...] of this encounter (statuses as of 09/05/2023) [facility] History of Past illness Narrative* Problem [...] pain 07/30/2018 8 Overview: A/p Controlled with [employer] OFFICER fentanyl, scheduled lidoderm patches and tyenol, prn oxycodone Stress hyperglycemia 07/30/2018 018 Overview: Continue SS. Hypovolemia/fluctuating lacic acidosis 07/30/2018 08/02/2018 Overview: A/p albumin given x1 Discharge planning issues 07/29/2018 Overview: Discharge to SNF 08.06.2018. Lives in [facility], alone but has supportive family. PT/OT/RT recommend SNF. Appointments requested with CTS AEROLOGIST and Cards. Preop testing 07/29/2018 08/03/2018 Overview: [...] AWARE OF ELEVATED CREATININE SIGNATURE: Bell Johnson APRN.RECRUITING ASSOCIATE CHECKED BY: LEE ANN DATE of SERVICE: 07/29/2018 TIME of SERVICE: 8:22 AM Encounter for preoperative a nesthesiology assessment for cardiac surgery 07/29/2018 Bone metastasis 10/13/2017 08/29/2021 Overview: Added automatically from request for surgery [id number] Hypoxemia 05/20/2017 08/03/2018 Overview: Requiring HF O2 after extubation A/p Begin diuresis and oob to chair, wean O2 as able. 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 08/03/2018 Left-sided low back pain wit h left-sided sciatica 02/19/2016 08/03/2018 Vitamin D deficiency 07/09/2010 018 Overview: Vit D 26.4 at [facility] 07/01/2010 Impaired fasting glucose 10/06/200812/2017 Elevated blood [...] of this encounter (statuses as of 09/06/2023) [facility] History of Past illness Narrative* Problem [...] pain 07/30/2018 8 Overview: A/p Controlled with [employer] OFFICER fentanyl, scheduled lidoderm patches and tyenol, prn oxycodone Stress hyperglycemia 07/30/2018 018 Overview: Continue SS. Hypovolemia/fluctuating lacic acidosis 07/30/2018 08/02/2018 Overview: A/p albumin given x1 Discharge planning issues 07/29/2018 Overview: Discharge to SNF 08.06.2018. Lives in [facility], alone but has supportive family. PT/OT/RT recommend SNF. Appointments requested with CTS AEROLOGIST and Cards. Preop testing 07/29/2018 08/03/2018 Overview: [...] AWARE OF ELEVATED CREATININE SIGNATURE: Bell Johnson APRN.RECRUITING ASSOCIATE CHECKED BY: LEE ANN DATE of SERVICE: 07/29/2018 TIME of SERVICE: 8:22 AM Encounter for preoperative a nesthesiology assessment for cardiac surgery 07/29/2018 Bone metastasis 10/13/2017 08/29/2021 Overview: Added automatically from request for surgery [id number] Hypoxemia 05/20/2017 08/03/2018 Overview: Requiring HF O2 after extubation A/p Begin diuresis and oob to chair, wean O2 as able. 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 08/03/2018 Left-sided low back pain wit h left-sided sciatica 02/19/2016 08/03/2018 Vitamin D deficiency 07/09/2010 018 Overview: Vit D 26.4 at [facility] 07/01/2010 Impaired fasting glucose 10/06/200812/2017 Elevated blood [...] of this encounter (statuses as of 09/22/2023) [facility] History of Past illness Narrative* Problem [...] pain 07/30/2018 8 Overview: A/p Controlled with [employer] OFFICER fentanyl, scheduled lidoderm patches and tyenol, prn oxycodone Stress hyperglycemia 07/30/2018 018 Overview: Continue SS. Hypovolemia/fluctuating lacic acidosis 07/30/2018 08/02/2018 Overview: A/p albumin given x1 Discharge planning issues 07/29/2018 Overview: Discharge to SNF 08.06.2018. Lives in [facility], alone but has supportive family. PT/OT/RT recommend SNF. Appointments requested with CTS AEROLOGIST and Cards. Preop testing 07/29/2018 08/03/2018 Overview: [...] AWARE OF ELEVATED CREATININE SIGNATURE: Bell Johnson APRN.RECRUITING ASSOCIATE CHECKED BY: LEE ANN DATE of SERVICE: 07/29/2018 TIME of SERVICE: 8:22 AM Encounter for preoperative a nesthesiology assessment for cardiac surgery 07/29/2018 Bone metastasis 10/13/2017 08/29/2021 Overview: Added automatically from request for surgery [id number] Hypoxemia 05/20/2017 08/03/2018 Overview: Requiring HF O2 after extubation A/p Begin diuresis and oob to chair, wean O2 as able. 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 08/03/2018 Left-sided low back pain wit h left-sided sciatica 02/19/2016 08/03/2018 Vitamin D deficiency 07/09/2010 018 Overview: Vit D 26.4 at [facility] 07/01/2010 Impaired fasting glucose 10/06/200812/2017 Elevated blood [...] of this encounter (statuses as of 09/30/2023) [facility] Diagnosis Left lower quadrant abdominal pain- Primary History of diverticulitis [facility] Diagnosis Frequent urination- Primary Urinary frequency [facility] Diagnosis Acute diverticulitis Diverticulitis of colon (without mention of hemorrhage) [facility] Diagnosis Essential hypertension- Primary Unspecified [...] with right-sided sciatica [facility] Diagnosis 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) Splenic lesion Disease of spleen, unspecified [facility] Diagnosis UTI symptoms- Primary Other symptoms involving urinary system S/P placement of cardiac pacemaker Cardiac pacemaker in situ [facility] Diagnosis Microscopic hematuria- Primary [facility]* Diagnosis Chronic obstructive pulmonary disease, unspecified COPD type (HCC) [facility] Diagnosis Chronic obstructive pulmonary disease, unspecified COPD type (HCC)- Primary Former smoker Personal history of tobacco use, presenting hazards to health [facility] Diagnosis Chronic heart failure with preserved ejection fraction (HFpEF) (HCC)- Primary Chronic right-sided low back pain with right-sided sciatica Acute bilateral low back pain with left-sided sciatica S/P placement of cardiac pacemaker Cardiac pacemaker in situ [facility] Diagnosis Chronic right-sided low back pain with right-sided sciatica documented [facility] Diagnosis Abdominal pain, LLQ (left lower quadrant)- Primary Abdominal pain, left lower quadrant History of colonic diverticulitis Personal history of other diseases of digestive system documented [facility] Diagnosis Chronic right-sided low back pain with right-sided sciatica documented [facility] Diagnosis Right leg swelling- Primary Swelling of limb Asymptomatic postmenopausal status documented [facility] Diagnosis Atrial fibrillation, unspecified type (HCC)- Primary Chronic obstructive pulmonary disease, unspecified COPD type (HCC) Rib pain on left side Chest pain, unspecified Rib injury Sprain of ribs documented [facility] Diagnosis Infection in abdomen (HCC)- Primary Unspecified peritonitis Left lower quadrant abdominal pain Acute diarrhea Diarrhea documented [facility] Diagnosis Chest congestion- Primary Other symptoms involving respiratory system and chest documented [facility] Diagnosis Chronic obstructive pulmonary disease, unspecified COPD type (HCC) documented [facility]* Diagnosis Moderate COPD (chronic obstructive pulmonary disease) (HCC)- Primary Chronic airway obstruction, not elsewhere classified Former smoker Personal history of tobacco use, presenting hazards to health documented [facility] Diagnosis Chronic obstructive pulmonary disease, unspecified COPD type (HCC) documented [facility] Diagnosis Rib pain on left side- Primary Chest pain, unspecified Fall, subsequent encounter Muscle strain Unspecified site of sprain and strain Age related osteoporosis, unspecified pathological fracture presence documented [facility] Diagnosis LLQ pain- Primary Abdominal pain, left lower quadrant Gas pain Flatulence, eructation, and gas pain Infection in abdomen (HCC) Unspecified peritonitis Rib pain on left side Chest pain, unspecified Fall, subsequent encounter Muscle strain Unspecified site of sprain and strain documented [facility] Diagnosis Chronic obstructive pulmonary disease, unspecified COPD type (HCC) documented [facility] Diagnosis Permanent [...] atrial fibrillation (HCC) documented [facility] Diagnosis Frequency of urination- Primary Urinary frequency Vaginal itching Pruritus of genital organs Palpitation Palpitations Presence of permanent cardiac pacemaker Cardiac pacemaker in situ Anticoagulant long-term use Long-term (current) use of 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 Permanent atrial fibrillation with rapid ventricular response (HCC) Permanent atrial fibrillation (HCC) Atrial fibrillation Tachycardia-bradycardia syndrome (HCC) Sinoatrial node dysfunction [facility] Diagnosis Longstanding persistent atrial fibrillation (HCC) [facility] Diagnosis Permanent atrial fibrillation (HCC)- Primary Atrial fibrillation 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) Cardiac complications S/P placement of cardiac pacemaker Cardiac pacemaker in situ Essential hypertension Unspecified essential hypertension At risk for stroke Other specified personal history presenting hazards to health [facility] Diagnosis S/P ablation of atrial fibrillation- Primary Other postprocedural status [facility] Diagnosis Essential hypertension- Primary Unspecified essential hypertension Hypotension, unspecified hypotension type Urinary frequency Gastroesophageal reflux disease, unspecified whether esophagitis present Encounter for long-term current use of medication Anticoagulant long-term use Long-term (current) use of 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 [facility] Diagnosis Closed fracture of neck of right femur with routine healing, subsequent encounter- Primary [facility] Diagnosis Closed fracture of neck of right femur with routine healing- Primary Aftercare for healing traumatic fracture of hip [facility]* Diagnosis Essential hypertension- Primary Unspecified essential [...] not elsewhere classified documented in this encounter [facility] note* Diagnosis Acute cystitis with hematuria- Primary Urinary frequency documented in this encounter [facility]* Diagnosis Essential hypertension- Primary Unspecified essential hypertension Age related osteoporosis, unspecified pathological fracture presence Arteriosclerosis of coronary artery Coronary atherosclerosis of unspecified type of vessel, [place] or graft 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 Impacted cerumen of left ear Impacted cerumen Excessive cerumen in ear canal, right Chronic right-sided low back pain with right-sided sciatica Permanent atrial fibrillation with rapid ventricular response (HCC) Spinal stenosis of lumbar region with radiculopathy Spinal stenosis, lumbar region, without neurogenic claudication documented in this encounter [facility] note* Diagnosis Essential hypertension- Primary Unspecified essential hypertension Chronic obstructive pulmonary disease, unspecified COPD type (HCC) Viral URI Acute upper respiratory infections of unspecified site Right leg swelling Swelling of limb Dizziness Dizziness and giddiness documented in this encounter [facility] note* Diagnosis Age related osteoporosis, unspecified pathological fracture presence- Primary documented in this encounter [facility] note* Diagnosis Closed fracture of right femur, unspecified fracture morphology, unspecified portion of femur, sequela- Primary documented in this encounter [facility] note* Diagnosis Loose stools- Primary Abnormal feces documented in this encounter [facility] note* Diagnosis Chest pain, unspecified type- Primary documented in this encounter [facility] for referral (narrative)* Diagnostic Procedure Only (Routine) - Closed Specialty Diagnoses / Procedures Referred By Contac t Referred To Contact US IMAGING Diagnoses 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) Splenic lesion Procedures US ABD RT UPPER QUADRANT ULTRASOUND-ABDOMINAL PC Maria Isabel Tay MD [address] [place] [address] Us Imaging Referral ID Status Reason Start Date Expiration Date V isits Requested Visits Authorized [id number] Closed Auto-Generate d Referral 03/23/2022 10/23/2022 1 1 [facility] for referral (narrative)* Outpatient Procedure (Routine) - Pending Review Specialty Diagnoses / Procedures Referred By Contac t Referred To Contact [facility] Diagnoses Chronic obstructive pulmonary disease, unspecified COPD type (HCC) Procedures OXIMETRY WITH AMBULATION NONINVASIVE EAR/PULSE OXIMETRY MULTIPLE Aaliyah Mccarthy PA-C [address] [address] [facility] [place] [address] [place] [address] Referral ID Status Reason Start Date Expiration Date Visits Requested Visits Authorized [id number] Pending Review Auto-Generat ed Referral 05/01/2022 05/31/2023 1 1 [facility] for referral (narrative)* Outpatient Procedure (Urgent) - Closed Specialty Diagnoses / Procedures Referred By Contac t Referred To Contact [facility] Diagnoses Right leg swelling Procedures US LEG VEIN DVT UNL VAS LAB DUP-SCAN XTR VEINS UNILATERAL/LIMITED STUDY Alisia Pacheco MD [address] [place] [address] [facility] [place] [id number] Referral ID Status Reason Start Date Expiration Date V isits Requested Visits Authorized [id number] Closed Auto-Generate d Referral 08/15/2022 11/01/2022 1 1 * Diagnostic Procedure Only (Urgent) - Pending Review Specialty Diagnoses / Procedures Referred By Contac t Referred To Contact US IMAGING Diagnoses Right leg swelling Procedures US DVT LOWER RT DUP-SCAN XTR VEINS UNILATERAL/LIMITED STUDY Alisia Pacheco MD [address] [place] [address] Us Imaging Referral ID Status Reason Start Date Expiration Date Visits Requested Visits Authorized [id number] Pending Review Auto-Generat ed Referral 2 09/13/2023 1 1 [facility] for referral (narrative)* Diagnostic Procedure Only (Routine) - Closed Specialty Diagnoses / Procedures Referred By Contac t Referred To Contact XR IMAGING Diagnoses Rib pain on left side Rib injury Procedures XR RIBS/CHEST 3V AP RIB/OBLS/CXR LEFT RADEX RIBS UNI W/POSTEROANT CH MINIMUM 3 VIEWS Mana Valentin APRN.CNP [address] [place] [address] Xr Imaging Referral ID Status Reason Start Date Expiration Date V isits Requested Visits Authorized [id number] Closed Auto-Generate d Referral 08/22/2022 11/01/2022 1 1 [facility] for referral (narrative)* Outpatient Procedure (Routine) - Pending Review Specialty Diagnoses / Procedures Referred By Contac t Referred To Contact [facility] Diagnoses Moderate COPD (chronic obstructive pulmonary disease) (HCC) Procedures SPIROMETRY BASELINE ONLY SPMTRY W/VC EXPIRATORY WENDY W/WO MXML VOL VNTJ Aaliyah Stone PA-C [address] [place] [address] [facility] [place] [address] [place] [address] Referral ID Status Reason Start Date Expiration Date Visits Requested Visits Authorized [id number] Pending Review Auto-Generat ed Referral 2 10/22/2023 1 1 [facility] for visit Narrative* Diagnostic Procedure Only (Routine) - Closed Specialty Diagnoses / Procedures Referred By Contac t Referred To Contact US IMAGING Diagnoses 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) Splenic lesion Procedures US ABD RT UPPER QUADRANT ULTRASOUND-ABDOMINAL PC Maria Isabel Tay MD [address] [place] [address] Us Imaging Referral ID Status Reason Start Date Expiration Date V isits Requested Visits Authorized [id number] Closed Auto-Generate d Referral 03/23/2022 10/23/2022 1 1 [facility] Summary Purpose Family History No Family History Records FoundNo Family History Records FoundNo Family History Records FoundNo Family History Records FoundNo Family History Records FoundNo Family History Records FoundNo Family History Records FoundNo Family History Records Found Advance Directives No Advanced Directives Records FoundDocuments on File Type Date Recorded Patient Date Pitter Expl anation Advance Directive(s) 07/29/2018 12:21 PM Advance Directive(s) 04/23/2018 7:39 AM Advance Directive(s) 12/02/2017 11:34 AM Advance Directive(s) 11/18/2017 12:29 PM Documents on File Type Date Recorded Patient Date Pitter Expl anation Advance Directive(s) 07/29/2018 12:21 PM Advance Directive(s) 04/23/2018 7:39 AM Advance Directive(s) 12/02/2017 11:34 AM Advance Directive(s) 11/18/2017 12:29 PM Reason for Referral Specialty Diagnoses / Procedures Referred By Contac t Referred To Contact Urology Diagnoses Microscopic hematuria Procedures CONSULT TO UROLOGY OFFICE/OUTPATIENT NEW HIGH MDM 60-74 MINUTES Jerad Bales, HISTOLOGY TEACHER.CALENDER WORKER HELPER [address] [place] [address] Referral ID Status Reason Start Date Expiration Date Visits Requested Visits Authorized [id number] Pending Review PCP Requested Referral 04/10/2022 04/10/2023 1 1 Specialty Diagnoses / Procedures Referred By Contac t Referred To Contact CT IMAGING Diagnoses Infection in abdomen (HCC) Left lower quadrant abdominal pain Procedures CT ABD/PEL W IVCON CT ABD & PELVIS W/CONTRAST Alisia Pacheco MD [address] [place] [address] Ct Imaging Referral ID Status Reason Start Date Expiration Date V isits Requested Visits Authorized [id number] Closed Auto-Generate d Referral 07/14/2022 08/13/2023 1 [...] DATE CREATED AUTHOR AUTHOR'S ORGANIZ ATION [facility] DATE CREATED AUTHOR AUTHOR'S ORGANIZ ATION 05/12/2018 [facility] DATE CREATED AUTHOR AUTHOR'S ORGANIZ ATION 02/08/2023 [facility] DATE CREATED AUTHOR AUTHOR'S ORGANIZ ATION 02/20/2023 [facility] DATE CREATED AUTHOR AUTHOR'S ORGANIZ ATION 05/07/2023 [facility] DATE CREATED AUTHOR AUTHOR'S ORGANIZ ATION 10/30/2023 [facility] DATE CREATED AUTHOR AUTHOR'S ORGANIZ ATION 12/05/2023 [facility] Source Comments (unrecognize d section and content) In the event this informatio n is protected by the Federal Confidentiality of Alcohol and Drug Abuse Patient Records regulations: The Federal rules restrict any use of the information to criminally investigate or prosecute any alcohol or drug abuse patient.[facility] the event this information is protected by the Federal Confidentiality of Alcohol and Drug Abuse Patient Records regulations: The Federal rules restrict any use of the information to criminally investigate or prosecute any alcohol or drug abuse patient.[facility] the event this information is protected by the Federal Confidentiality of Alcohol and Drug Abuse Patient Records regulations: The Federal rules restrict any use of the information to criminally investigate or prosecute any alcohol or drug abuse patient.[facility] the event this information is protected by the Federal Confidentiality of Alcohol and Drug Abuse Patient Records regulations: The Federal rules restrict any use of the information to criminally investigate or prosecute any alcohol or drug abuse patient.[facility] the event this information is protected by the Federal Confidentiality of Alcohol and Drug Abuse Patient Records regulations: The Federal rules restrict any use of the information to criminally investigate or prosecute any alcohol or drug abuse patient.[facility] the event this information is protected by the Federal Confidentiality of Alcohol and Drug Abuse Patient Records regulations: The Federal rules restrict any use of the information to criminally investigate or prosecute any alcohol or drug abuse patient.[facility] the event this information is protected by the Federal Confidentiality of Alcohol and Drug Abuse Patient Records regulations: The Federal rules restrict any use of the information to criminally investigate or prosecute any alcohol or drug abuse patient.[facility] the event this information is protected by the Federal Confidentiality of Alcohol and Drug Abuse Patient Records regulations: The Federal rules restrict any use of the information to criminally investigate or prosecute any alcohol or drug abuse patient.[facility] the event this information is protected by the Federal Confidentiality of Alcohol and Drug Abuse Patient Records regulations: The Federal rules restrict any use of the information to criminally investigate or prosecute any alcohol or drug abuse patient.[facility] the event this information is protected by the Federal Confidentiality of Alcohol and Drug Abuse Patient Records regulations: The Federal rules restrict any use of the information to criminally investigate or prosecute any alcohol or drug abuse patient.[facility] the event this information is protected by the Federal Confidentiality of Alcohol and Drug Abuse Patient Records regulations: The Federal rules restrict any use of the information to criminally investigate or prosecute any alcohol or drug abuse patient.[facility] the event this information is protected by the Federal Confidentiality of Alcohol and Drug Abuse Patient Records regulations: The Federal rules restrict any use of the information to criminally investigate or prosecute any alcohol or drug abuse patient.[facility] the event this information is protected by the Federal Confidentiality of Alcohol and Drug Abuse Patient Records regulations: The Federal rules restrict any use of the information to criminally investigate or prosecute any alcohol or drug abuse patient.[facility] the event this information is protected by the Federal Confidentiality of Alcohol and Drug Abuse Patient Records regulations: The Federal rules restrict any use of the information to criminally investigate or prosecute any alcohol or drug abuse patient.[facility] the event this information is protected by the Federal Confidentiality of Alcohol and Drug Abuse Patient Records regulations: The Federal rules restrict any use of the information to criminally investigate or prosecute any alcohol or drug abuse patient.[facility] the event this information is protected by the Federal Confidentiality of Alcohol and Drug Abuse Patient Records regulations: The Federal rules restrict any use of the information to criminally investigate or prosecute any alcohol or drug abuse patient.[facility] the event this information is protected by the Federal Confidentiality of Alcohol and Drug Abuse Patient Records regulations: The Federal rules restrict any use of the information to criminally investigate or prosecute any alcohol or drug abuse patient.[facility] the event this information is protected by the Federal Confidentiality of Alcohol and Drug Abuse Patient Records regulations: The Federal rules restrict any use of the information to criminally investigate or prosecute any alcohol or drug abuse patient.[facility] the event this information is protected by the Federal Confidentiality of Alcohol and Drug Abuse Patient Records regulations: The Federal rules restrict any use of the information to criminally investigate or prosecute any alcohol or drug abuse patient.[facility] the event this information is protected by the Federal Confidentiality of Alcohol and Drug Abuse Patient Records regulations: The Federal rules restrict any use of the information to criminally investigate or prosecute any alcohol or drug abuse patient.[facility] the event this information is protected by the Federal Confidentiality of Alcohol and Drug Abuse Patient Records regulations: The Federal rules restrict any use of the information to criminally investigate or prosecute any alcohol or drug abuse patient.[facility] the event this information is protected by the Federal Confidentiality of Alcohol and Drug Abuse Patient Records regulations: The Federal rules restrict any use of the information to criminally investigate or prosecute any alcohol or drug abuse patient.[facility] the event this information is protected by the Federal Confidentiality of Alcohol and Drug Abuse Patient Records regulations: The Federal rules restrict any use of the information to criminally investigate or prosecute any alcohol or drug abuse patient.[facility] the event this information is protected by the Federal Confidentiality of Alcohol and Drug Abuse Patient Records regulations: The Federal rules restrict any use of the information to criminally investigate or prosecute any alcohol or drug abuse patient.[facility] the event this information is protected by the Federal Confidentiality of Alcohol and Drug Abuse Patient Records regulations: The Federal rules restrict any use of the information to criminally investigate or prosecute any alcohol or drug abuse patient.[facility] the event this information is protected by the Federal Confidentiality of Alcohol and Drug Abuse Patient Records regulations: The Federal rules restrict any use of the information to criminally investigate or prosecute any alcohol or drug abuse patient.[facility] Hospital[facility] the event this information is protected by the Federal Confidentiality of Alcohol and Drug Abuse Patient Records regulations: The Federal rules restrict any use of the information to criminally investigate or prosecute any alcohol or drug abuse patient.[facility]In the event this information is protected by the Federal Confidentiality of Alcohol and Drug Abuse Patient Records regulations: The Federal rules restrict any use of the information to criminally investigate or prosecute any alcohol or drug abuse patient.[facility] HospitalIn the event this information is protected by the Federal Confidentiality of Alcohol and Drug Abuse Patient Records regulations: The Federal rules restrict any use of the information to criminally investigate or prosecute any alcohol or drug abuse patient.[facility] HospitalIn the event this information is protected by the Federal Confidentiality of Alcohol and Drug Abuse Patient Records regulations: The Federal rules restrict any use of the information to criminally investigate or prosecute any alcohol or drug abuse patient.[facility] HospitalIn the event this information is protected by the Federal Confidentiality of Alcohol and Drug Abuse Patient Records regulations: The Federal rules restrict any use of the information to criminally investigate or prosecute any alcohol or drug abuse patient.[facility] HospitalIn the event this information is protected by the Federal Confidentiality of Alcohol and Drug Abuse Patient Records regulations: The Federal rules restrict any use of the information to criminally investigate or prosecute any alcohol or drug abuse patient.[facility] HospitalIn the event this information is protected by the Federal Confidentiality of Alcohol and Drug Abuse Patient Records regulations: The Federal rules restrict any use of the information to criminally investigate or prosecute any alcohol or drug abuse patient.[facility] HospitalIn the event this information is protected by the Federal Confidentiality of Alcohol and Drug Abuse Patient Records regulations: The Federal rules restrict any use of the information to criminally investigate or prosecute any alcohol or drug abuse patient.[facility] HospitalIn the event this information is protected by the Federal Confidentiality of Alcohol and Drug Abuse Patient Records regulations: The Federal rules restrict any use of the information to criminally investigate or prosecute any alcohol or drug abuse patient.[facility] HospitalIn the event this information is protected by the Federal Confidentiality of Alcohol and Drug Abuse Patient Records regulations: The Federal rules restrict any use of the information to criminally investigate or prosecute any alcohol or drug abuse patient.[facility] HospitalIn the event this information is protected by the Federal Confidentiality of Alcohol and Drug Abuse Patient Records regulations: The Federal rules restrict any use of the information to criminally investigate or prosecute any alcohol or drug abuse patient.[facility] HospitalIn the event this information is protected by the Federal Confidentiality of Alcohol and Drug Abuse Patient Records regulations: The Federal rules restrict any use of the information to criminally investigate or prosecute any alcohol or drug abuse patient.[facility] HospitalIn the event this information is protected by the Federal Confidentiality of Alcohol and Drug Abuse Patient Records regulations: The Federal rules restrict any use of the information to criminally investigate or prosecute any alcohol or drug abuse patient.[facility] HospitalIn the event this information is protected by the Federal Confidentiality of Alcohol and Drug Abuse Patient Records regulations: The Federal rules restrict any use of the information to criminally investigate or prosecute any alcohol or drug abuse patient.[facility] HospitalIn the event this information is protected by the Federal Confidentiality of Alcohol and Drug Abuse Patient Records regulations: The Federal rules restrict any use of the information to criminally investigate or prosecute any alcohol or drug abuse patient.[facility] HospitalIn the event this information is protected by the Federal Confidentiality of Alcohol and Drug Abuse Patient Records regulations: The Federal rules restrict any use of the information to criminally investigate or prosecute any alcohol or drug abuse patient.[facility] HospitalIn the event this information is protected by the Federal Confidentiality of Alcohol and Drug Abuse Patient Records regulations: The Federal rules restrict any use of the information to criminally investigate or prosecute any alcohol or drug abuse patient.[facility] HospitalIn the event this information is protected by the Federal Confidentiality of Alcohol and Drug Abuse Patient Records regulations: The Federal rules restrict any use of the information to criminally investigate or prosecute any alcohol or drug abuse patient.[facility] HospitalIn the event this information is protected by the Federal Confidentiality of Alcohol and Drug Abuse Patient Records regulations: The Federal rules restrict any use of the information to criminally investigate or prosecute any alcohol or drug abuse patient.[facility] HospitalIn the event this information is protected by the Federal Confidentiality of Alcohol and Drug Abuse Patient Records regulations: The Federal rules restrict any use of the information to criminally investigate or prosecute any alcohol or drug abuse patient.[facility] HospitalIn the event this information is protected by the Federal Confidentiality of Alcohol and Drug Abuse Patient Records regulations: The Federal rules restrict any use of the information to criminally investigate or prosecute any alcohol or drug abuse patient.[facility] HospitalIn the event this information is protected by the Federal Confidentiality of Alcohol and Drug Abuse Patient Records regulations: The Federal rules restrict any use of the information to criminally investigate or prosecute any alcohol or drug abuse patient.[facility] HospitalIn the event this information is protected by the Federal Confidentiality of Alcohol and Drug Abuse Patient Records regulations: The Federal rules restrict any use of the information to criminally investigate or prosecute any alcohol or drug abuse patient.[facility] HospitalIn the event this information is protected by the Federal Confidentiality of Alcohol and Drug Abuse Patient Records regulations: The Federal rules restrict any use of the information to criminally investigate or prosecute any alcohol or drug abuse patient.[facility] HospitalIn the event this information is protected by the Federal Confidentiality of Alcohol and Drug Abuse Patient Records regulations: The Federal rules restrict any use of the information to criminally investigate or prosecute any alcohol or drug abuse patient.[facility] HospitalIn the event this information is protected by the Federal Confidentiality of Alcohol and Drug Abuse Patient Records regulations: The Federal rules restrict any use of the information to criminally investigate or prosecute any alcohol or drug abuse patient.[facility] HospitalIn the event this information is protected by the Federal Confidentiality of Alcohol and Drug Abuse Patient Records regulations: The Federal rules restrict any use of the information to criminally investigate or prosecute any alcohol or drug abuse patient.[facility] HospitalIn the event this information is protected by the Federal Confidentiality of Alcohol and Drug Abuse Patient Records regulations: The Federal rules restrict any use of the information to criminally investigate or prosecute any alcohol or drug abuse patient.[facility] HospitalIn the event this information is protected by the Federal Confidentiality of Alcohol and Drug Abuse Patient Records regulations: The Federal rules restrict any use of the information to criminally investigate or prosecute any alcohol or drug abuse patient.[facility] HospitalIn the event this information is protected by the Federal Confidentiality of Alcohol and Drug Abuse Patient Records regulations: The Federal rules restrict any use of the information to criminally investigate or prosecute any alcohol or drug abuse patient.[facility] HospitalIn the event this information is protected by the Federal Confidentiality of Alcohol and Drug Abuse Patient Records regulations: The Federal rules restrict any use of the information to criminally investigate or prosecute any alcohol or drug abuse patient.[facility] HospitalIn the event this information is protected by the Federal Confidentiality of Alcohol and Drug Abuse Patient Records regulations: The Federal rules restrict any use of the information to criminally investigate or prosecute any alcohol or drug abuse patient.[facility] HospitalIn the event this information is protected by the Federal Confidentiality of Alcohol and Drug Abuse Patient Records regulations: The Federal rules restrict any use of the information to criminally investigate or prosecute any alcohol or drug abuse patient.[facility] HospitalIn the event this information is protected by the Federal Confidentiality of Alcohol and Drug Abuse Patient Records regulations: The Federal rules restrict any use of the information to criminally investigate or prosecute any alcohol or drug abuse patient.[facility] HospitalIn the event this information is protected by the Federal Confidentiality of Alcohol and Drug Abuse Patient Records regulations: The Federal rules restrict any use of the information to criminally investigate or prosecute any alcohol or drug abuse patient.[facility] Reason for Visit (unrecogniz ed section [...] WO BRONCHODILATOR Aaliyah Stone, GIOVANNA [address] [facility] [address] [place] [address] [facility] [place] [address] [place] [address] Referral ID Status Reason Start Date Expiration Date V isits Requested Visits Authorized [id number] Closed Auto-Generate d Referral 07/26/2021 08/25/2022 1 [...] ABD & PELVIS W/CONTRAST Alisia Pacheco MD [address] [place] [address] Ct Imaging Referral ID Status Reason Start Date Expiration Date V isits Requested Visits Authorized [id number] Closed Auto-Generate d Referral 07/14/2022 08/13/2023 1 1 Reason Onset Date Comments Refill Request 08/08/2022 Reason Comments Patient Question Reason Comments Recheck [facility] ER follow up Reason Comments ER F/U Reason Comments Chest Congestion SOB, rib pain x this AM Reason Onset Date Comments Patient Question 09/19/2022 Specialty Diagnoses / Procedures Referred By Contac t Referred To Contact [facility] Diagnoses Chronic obstructive pulmonary disease, unspecified COPD type (HCC) Procedures OXIMETRY WITH AMBULATION NONINVASIVE EAR/PULSE OXIMETRY MULTIPLE Aaliyah Mccarthy PA-C [address] [place] [address] [facility] [place] [address] [place] [address] Referral ID Status Reason Start Date Expiration Date V isits Requested Visits Authorized [id number] Closed Auto-Generate d Referral 09/15/2022 11/01/2022 1 [...] Comments Home Health Care Certification 04/10/2023 [facility] 01/31/2023-03/31/2023 Reason Onset Date Comments Home Health Certification 04/14/2023 [facility] 02/17/2023-04/17/2023 Reason Comments ED Follow-up Reason Comments Urinary Tract Infection Possible UTI uri nary urgency,small pain,urinary frequency x 4 days Reason Comments 4 month f/u Reason Comments Hospital F/U [facility] Hospital dischar ge 06/27/23 for High Blood Pressure Reason Comments Orders Reason Comments Imm/Inj Specialty Diagnoses / Procedures Referred By Contac t Referred To Contact CT IMAGING Diagnoses Splenic lesion 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 Does have a [employer] OTR pacer in place, it is NOT a defib. Denies SOB or dizziness. Care Teams (unrecognized sec tion and content) Transportation Design Engineer Relationship Specialty Start Date End Date Alisia Pacheco MD [address] [place], [place] [address] PCP - General Internal Medicine 07/19/12 Arnold Bladn [address] [address] Consulting Cardiology 03/15/19 Panda Miller MD [address] [place] [address] Specialty Manager Of Transportation Pulmonary and Critical Care Medicine 08/03/20 Transportation Design Engineer Relationship Specialty Start Date End Date Alisia Pacheco MD [address] [place] [address] PCP - General Internal Medicine 07/19/12 Arnold Bland [address] [place] [address] Consulting Cardiology 03/15/19 Panda Miller MD [address] [place] [address] Specialty Manager Of Transportation Pulmonary and Critical Care Medicine 08/03/20 Transportation Design Engineer Relationship Specialty Start Date End Date Alisia Pacheco MD [address] [place], [place] [address] PCP - General Internal Medicine 07/19/12 Arnold Bland [address] [place] [address] Consulting Cardiology 03/15/19 Panda Miller MD [address] [facility] [place] [address] Specialty Manager Of Transportation Pulmonary and Critical Care Medicine 08/03/20 Transportation Design Engineer Relationship Specialty Start Date End Date Alisia Pacheco MD [address] [facility] [place] [address] PCP - General Internal Medicine 07/19/12 Arnold Bland [address] [place] [address] Consulting Cardiology 03/15/19 Panda Miller MD [address] [place] [place] [address] Specialty Manager Of Transportation Pulmonary and Critical Care Medicine 08/03/20 Transportation Design Engineer Relationship Specialty Start Date End Date Alisia Pacheco MD [address] [facility] [place] [address] PCP - General Internal Medicine 07/19/12 Arnold Bland [address] [place] [address] Consulting Cardiology 03/15/19 Panda Miller MD [address] [place] [address] Specialty Manager Of Transportation Pulmonary and Critical Care Medicine 08/03/20 Transportation Design Engineer Relationship Specialty Start Date End Date Alisia Pacheco MD [address] [facility] [place] [address] PCP - General Internal Medicine 07/19/12 Arnold Bland [address] [place] [address] Consulting Cardiology 03/15/19 Panda Miller MD [address] [place] [address] Specialty Manager Of Transportation Pulmonary and Critical Care Medicine 08/03/20 Transportation Design Engineer Relationship Specialty Start Date End Date Alisia Pacheco MD [address] [facility] [place] [address] PCP - General Internal Medicine 07/19/12 Arnold Bland [address] [place] [address] Consulting Cardiology 03/15/19 Panda Miller MD [address] [place] [address] Specialty Manager Of Transportation Pulmonary and Critical Care Medicine 08/03/20 Transportation Design Engineer Relationship Specialty Start Date End Date Alisia Pacheco MD [address] [facility] [place] [address] PCP - General Internal Medicine 07/19/12 Arnold Bland [address] [place] [address] Consulting Cardiology 03/15/19 Panda Miller MD [address] [place] [address] Specialty Manager Of Transportation Pulmonary and Critical Care Medicine 08/03/20 Transportation Design Engineer Relationship Specialty Start Date End Date Alisia Pacheco MD [address] [facility] [place] [address] PCP - General Internal Medicine 07/19/12 Arnold Bland [address] [place] [address] Consulting Cardiology 03/15/19 Panda Miller MD [address] [place] [address] Specialty Manager Of Transportation Pulmonary and Critical Care Medicine 08/03/20 Transportation Design Engineer Relationship Specialty Start Date End Date Alisia Pacheco MD [address] [facility] [place] [address] PCP - General Internal Medicine 07/19/12 [address]land [address] [place] [address] Consulting Cardiology 03/15/19 Panda Miller MD [address] [place] [place] [address] Specialty Manager Of Transportation Pulmonary and Critical Care Medicine 08/03/20 Transportation Design Engineer Relationship Specialty Start Date End Date Alisia Pacheco MD [address] [facility] [place] [address] PCP - General Internal Medicine 07/19/12 [address] Bland [address] [place] [address] Consulting Cardiology 03/15/19 Panda Miller MD [address] [place] [address] Specialty Manager Of Transportation Pulmonary and Critical Care Medicine 08/03/20 Transportation Design Engineer Relationship Specialty Start Date End Date Aliisa Pacheco MD [address] [facility] [place] [address] PCP - General Internal Medicine 07/19/12 Arnold Bland [address] [place] [address] Consulting Cardiology 03/15/19 Panda Miller MD [address] [facility] [place] [address] Specialty Manager Of Transportation Pulmonary and Critical Care Medicine 08/03/20 Transportation Design Engineer Relationship Specialty Start Date End Date Alisia Pacheco MD [address] [facility] [place] [address] PCP - General Internal Medicine 07/19/12 Arnold Bland [address] [place] [address] Consulting Cardiology 03/15/19 Panda Miller MD [address] [place] [place] [address] Specialty Manager Of Transportation Pulmonary and Critical Care Medicine 08/03/20 Transportation Design Engineer Relationship Specialty Start Date End Date Alisia Pacheco MD [address] [facility] [place] [address] PCP - General Internal Medicine 07/19/12 Arnold Bland [address] [place] [address] Consulting Cardiology 03/15/19 Panda Miller MD [address] [place] [address] Specialty Manager Of Transportation Pulmonary and Critical Care Medicine 08/03/20 Transportation Design Engineer Relationship Specialty Start Date End Date Alisia Pacheco MD [address] [facility] [place] [address] PCP - General Internal Medicine 07/19/12 Arnold Bland [address] [facility] [address] [place] [address] Consulting Cardiology 03/15/19 Panda Miller MD [address] [place] [place] [address] Specialty Manager Of Transportation Pulmonary and Critical Care Medicine 08/03/20 Transportation Design Engineer Relationship Specialty Start Date End Date Alisia Pacheco MD [address] [facility] [place] [address] PCP - General Internal Medicine 07/19/12 Arnold Bland [address] [place] [address] Consulting Cardiology 03/15/19 Panda Miller MD [address] [place] [address] Specialty Manager Of Transportation Pulmonary and Critical Care Medicine 08/03/20 Transportation Design Engineer Relationship Specialty Start Date End Date Alisia Pacheco MD [address] [facility] [place] [address] PCP - General Internal Medicine 07/19/12 Arnold Bland [address] [place] [address] Consulting Cardiology 03/15/19 Panda Miller MD [address] [place] [place] [address] Specialty Manager Of Transportation Pulmonary and Critical Care Medicine 08/03/20 Transportation Design Engineer Relationship Specialty Start Date End Date Alisia Pacheco MD [address] [facility] [place] [address] PCP - General Internal Medicine 07/19/12 Arnold Bland [address] [place] [address] Consulting Cardiology 03/15/19 Panda Miller MD [address] [place] [address] Specialty Manager Of Transportation Pulmonary and Critical Care Medicine 08/03/20 Transportation Design Engineer Relationship Specialty Start Date End Date Alisia Pacheco MD [address] [facility] [place] [address] PCP - General Internal Medicine 07/19/[address] [place] [address] Consulting Cardiology 03/15/19 Panda Miller MD [address] [facility] [place] [address] Specialty Manager Of Transportation Pulmonary and Critical Care Medicine 08/03/20 Transportation Design Engineer Relationship Specialty Start Date End Date Alisia Pacheco MD [address] [facility] [place] [address] PCP - General Internal Medicine 07/19/12 Arnold Bland [address] [place] [address] Consulting Cardiology 03/15/19 Panda Miller MD [address] [facility] [place] [address] Specialty Manager Of Transportation Pulmonary and Critical Care Medicine 08/03/20 Transportation Design Engineer Relationship Specialty Start Date End Date Alisia Pacheco MD [address] [facility] [place] [address] PCP - General Internal Medicine 07/19/12 [address]land [address] [place] [address] Consulting Cardiology 03/15/19 Panda Miller MD [address] [facility] [place] [address] Specialty Manager Of Transportation Pulmonary and Critical Care Medicine 08/03/20 Transportation Design Engineer Relationship Specialty Start Date End Date Alisia Pacheco MD [address] [facility] [place] [address] PCP - General Internal Medicine 07/19/12 Arnold Bland [address] [place] [address] Consulting Cardiology 03/15/19 Panda Miller MD [address] [facility] [place] [address] Specialty Manager Of Transportation Pulmonary and Critical Care Medicine 08/03/20 Transportation Design Engineer Relationship Specialty Start Date End Date Alisia Pahceco MD [address] [facility] [place] [address] PCP - General Internal Medicine 07/19/12 Arnold Bland [address] [place] [address] Consulting Cardiology 03/15/19 Panda Miller MD [address] [address] Specialty Manager Of Transportation Pulmonary and Critical Care Medicine 08/03/20 Maria Isabel Tay MD [address] [facility] [place] [address] Hematology/Oncology 10/08/22 Transportation Design Engineer Relationship Specialty Start Date End Date Alisia Pacheco MD [address] [facility] [place] [address] PCP - General Internal Medicine 07/19/12 Arnold Bland [address] [place] [address] Consulting Cardiology 03/15/19 Panda Miller MD [address] [address] Specialty Manager Of Transportation Pulmonary and Critical Care Medicine 08/03/20 Maria Isabel Tay MD [address] [facility] [place] [address] Hematology/Oncology 10/08/22 Transportation Design Engineer Relationship Specialty Start Date End Date Alisia Pacheco MD [address] [facility] [place] [address] PCP - General Internal Medicine 07/19/12 Arnold Bland [address] [place] [address] Consulting Cardiology 03/15/19 Panda Miller MD [address] [place] [address] Specialty Manager Of Transportation Pulmonary and Critical Care Medicine 08/03/20 Maria Isabel Tay MD [address] [place] [address] Hematology/Oncology 10/08/22 Transportation Design Engineer Relationship Specialty Start Date End Date Alisia Pacheco MD [address] [facility] [place] [address] PCP - General Internal Medicine 07/19/12 Arnold Bland [address] [place] [address] Consulting Cardiology 03/15/19 Panda Miller MD [address] [place] [address] Specialty Manager Of Transportation Pulmonary and Critical Care Medicine 08/03/20 Maria Isabel Tay MD [address] [place] [address] Hematology/Oncology 10/08/22 Transportation Design Engineer Relationship Specialty Start Date End Date Alisia Pacheco MD [address] [facility] [place] [address] PCP - General Internal Medicine 07/19/12 Arnold Bland [address] [place] [address] Consulting Cardiology 03/15/19 Panda Miller MD [address] [place] [address] Specialty Manager Of Transportation Pulmonary and Critical Care Medicine 08/03/20 Maria Isabel Tay MD [address] [place] [address] Hematology/Oncology 10/08/22 Transportation Design Engineer Relationship Specialty Start Date End Date Alisia Pacheco MD [address] [facility] [place] [address] PCP - General Internal Medicine 07/19/12 Arnold Bland [address] [place] [address] Consulting Cardiology 03/15/19 Panda Miller MD [address] [address] Specialty Manager Of Transportation Pulmonary and Critical Care Medicine 08/03/20 Maria Isabel Tay MD [address] [facility] [place] [address] Hematology/Oncology 10/08/22 Transportation Design Engineer Relationship Specialty Start Date End Date Alisia Pacheco MD [address] [facility] [place] [address] PCP - General Internal Medicine 07/19/12 Arnold Bland [address] [place] [address] Consulting Cardiology 03/15/19 Panda Miller MD [address] [address] Specialty Manager Of Transportation Pulmonary and Critical Care Medicine 08/03/20 Maria Isabel Tay MD [address] [facility] [place] [address] Hematology/Oncology 10/08/22 Transportation Design Engineer Relationship Specialty Start Date End Date Alisia Pacheco MD [address] [facility] [place] [address] PCP - General Internal Medicine 07/19/12 Arnold Bland [address] [place] [address] Consulting Cardiology 03/15/19 Panda Miller MD [address] [place] [address] Specialty Manager Of Transportation Pulmonary and Critical Care Medicine 08/03/20 Maria Isabel Tay MD [address] [place] [address] Hematology/Oncology 10/08/22 Transportation Design Engineer Relationship Specialty Start Date End Date Alisia Pacheco MD [address] [facility] [place] [address] PCP - General Internal Medicine 07/19/12 Arnold Bland [address] [place] [address] Consulting Cardiology 03/15/19 Panda Miller MD [address] [place] [address] Specialty Manager Of Transportation Pulmonary and Critical Care Medicine 08/03/20 Maria Isabel Tay MD [address] [place] [address] Hematology/Oncology 10/08/22 Transportation Design Engineer Relationship Specialty Start Date End Date Alisia Pacheco MD [address] [facility] [place] [address] PCP - General Internal Medicine 07/19/12 Arnold Bland [address] [place] [address] Consulting Cardiology 03/15/19 Panda Miller MD [address] [place] [address] Specialty Manager Of Transportation Pulmonary and Critical Care Medicine 08/03/20 Maria Isabel Tay MD [address] [place] [address] Hematology/Oncology 10/08/22 Transportation Design Engineer Relationship Specialty Start Date End Date Alisia Pacheco MD [address] [facility] [place] [address] PCP - General Internal Medicine 07/19/12 Arnold Bland [address] [place] [address] Consulting Cardiology 03/15/19 Panda Miller MD [address] [address] Specialty Manager Of Transportation Pulmonary and Critical Care Medicine 08/03/20 Maria Isabel Tay MD [address] [facility] [place] [address] Hematology/Oncology 10/08/22 Transportation Design Engineer Relationship Specialty Start Date End Date Alisia Pacheco MD [address] [facility] [place] [address] PCP - General Internal Medicine 07/19/12 Arnold Bland [address] [place] [address] Consulting Cardiology 03/15/19 Panda Miller MD [address] [address] Specialty Manager Of Transportation Pulmonary and Critical Care Medicine 08/03/20 Maria Isabel Tay MD [address] [facility] [place] [address] Hematology/Oncology 10/08/22 Transportation Design Engineer Relationship Specialty Start Date End Date Alisia Pacheco MD [address] [facility] [place] [address] PCP - General Internal Medicine 07/19/12 Arnold Bland [address] [place] [address] Consulting Cardiology 03/15/19 Panda Miller MD [address] [place] [address] Specialty Manager Of Transportation Pulmonary and Critical Care Medicine 08/03/20 Maria Isabel Tay MD [address] [place] [address] Hematology/Oncology 10/08/22 Transportation Design Engineer Relationship Specialty Start Date End Date Alisia Pacheco MD [address] [facility] [place] [address] PCP - General Internal Medicine 07/19/12 Arnold Bland [address] [place] [address] Consulting Cardiology 03/15/19 Panda Miller MD [address] [place] [address] Specialty Manager Of Transportation Pulmonary and Critical Care Medicine 08/03/20 Maria Isabel Tay MD [address] [place] [address] Hematology/Oncology 10/08/22 Transportation Design Engineer Relationship Specialty Start Date End Date Alisia Pacheco MD [address] [facility] [place] [address] PCP - General Internal Medicine 07/19/12 Arnold Bland [address] [place] [address] Consulting Cardiology 03/15/19 Panda Miller MD [address] [place] [address] Specialty Manager Of Transportation Pulmonary and Critical Care Medicine 08/03/20 Maria Isabel Tay MD [address] [place] [address] Hematology/Oncology 10/08/22 Transportation Design Engineer Relationship Specialty Start Date End Date Alisia Pacheco MD [address] [facility] [place] [address] PCP - General Internal Medicine 07/19/12 Arnold Bland [address] [facility] [address] [place] [address] Consulting Cardiology 03/15/19 Panda Miller MD [address] [facility] [place] [address] Specialty Manager Of Transportation Pulmonary and Critical Care Medicine 08/03/20 Maria Isabel Tay MD [address] [facility] [place] [address] Hematology/Oncology 10/08/22 Transportation Design Engineer Relationship Specialty Start Date End Date Alisia Pacheco MD [address] [facility] [place] [address] PCP - General Internal Medicine 07/19/12 Arnold Bland [address] [facility] [address] [place] [address] Consulting Cardiology 03/15/19 Pnada Miller MD [address] [facility] [place] [address] Specialty Manager Of Transportation Pulmonary and Critical Care Medicine 08/03/20 Maria Isabel Tay MD [address] [facility] [place] [address] Hematology/Oncology 10/08/22 Transportation Design Engineer Relationship Specialty Start Date End Date Alisia Pacheco MD [address] [place] [address] PCP - General Internal Medicine 05/06/23 Transportation Design Engineer Relationship Specialty Start Date End Date Alisia Pacheco MD [address] [place] [address] PCP - General Internal Medicine 07/19/12 Arnold Bland [address] [place] [address] Consulting Cardiology 03/15/19 Panda Miller MD [address] [place] [address] Specialty Manager Of Transportation Pulmonary and Critical Care Medicine 08/03/20 Maria Isabel Tay MD [address] [place] [address] Hematology/Oncology 10/08/22 Transportation Design Engineer Relationship Specialty Start Date End Date Alisia Pacheco MD [address] [place] [address] PCP - General Internal Medicine 07/19/12 Arnold Bland [address] [place] [address] Consulting Cardiology 03/15/19 Panda Miller MD [address] [place] [address] Specialty Manager Of Transportation Pulmonary and Critical Care Medicine 08/03/20 Maria Isabel Tay MD [address] [place] [address] Hematology/Oncology 10/08/22 Transportation Design Engineer Relationship Specialty Start Date End Date Alisia Pacheco MD [address] [place] [address] PCP - General Internal Medicine 07/19/12 Arnold Bland [address] [place] [address] Consulting Cardiology 03/15/19 Panda Miller MD [address] [place] [address] Specialty Manager Of Transportation Pulmonary and Critical Care Medicine 08/03/20 Maria Isabel Tay MD [address] [place] [address] Hematology/Oncology 10/08/22 Transportation Design Engineer Relationship Specialty Start Date End Date Alisia Pacheco MD [address] [facility] [place] [address] PCP - General Internal Medicine 07/19/12 Arnold Bland [address] [place] [address] Consulting Cardiology 03/15/19 Panda Miller MD [address] [place] [address] Specialty Manager Of Transportation Pulmonary and Critical Care Medicine 08/03/20 Maria Isabel Tay MD [address] [place] [address] Hematology/Oncology 10/08/22 Transportation Design Engineer Relationship Specialty Start Date End Date Alisia Pacheco MD [address] [place] [address] PCP - General Internal Medicine 07/19/12 Arnold Bland [address] [place] [address] Consulting Cardiology 03/15/19 Panda Miller MD [address] [place] [address] Specialty Manager Of Transportation Pulmonary and Critical Care Medicine 08/03/20 Maria Isabel Tay MD [address] [place] [address] Hematology/Oncology 10/08/22 Transportation Design Engineer Relationship Specialty Start Date End Date Alisia Pacheco MD [address] [place] [address] PCP - General Internal Medicine 07/19/12 Arnold Bland [address] [place] [address] Consulting Cardiology 03/15/19 Panda Miller MD [address] [place] [address] Specialty Manager Of Transportation Pulmonary and Critical Care Medicine 08/03/20 Maria Isabel Tay MD [address] [place] [address] Hematology/Oncology 10/08/22 Transportation Design Engineer Relationship Specialty Start Date End Date Alisia Pacheco MD [address] [place] [address] PCP - General Internal Medicine 07/19/12 Arnold Bland [address] [place] [address] Consulting Cardiology 03/15/19 Panda Miller MD [address] [place] [address] Specialty Manager Of Transportation Pulmonary and Critical Care Medicine 08/03/20 Maria Isabel Tay MD [address] [place] [address] Hematology/Oncology 10/08/22 Transportation Design Engineer Relationship Specialty Start Date End Date Alisia Pacheco MD [address] [place] [address] PCP - General Internal Medicine 07/19/12 Arnold Bland MD [address] [place] [address] Consulting Cardiology 03/15/19 Panda Miller MD [address] [place] [address] Specialty Manager Of Transportation Pulmonary and Critical Care Medicine 08/03/20 Maria Isabel Tay MD [address] [place] [address] Hematology/Oncology 10/08/22 Transportation Design Engineer Relationship Specialty Start Date End Date Alisia Pacheco MD [address] [place] [address] PCP - General Internal Medicine 07/19/12 Arnold Bland MD [address] [place] [address] Consulting Cardiology 03/15/19 Panda Miller MD [address] [place] [address] Specialty Manager Of Transportation Pulmonary and Critical Care Medicine 08/03/20 Maria Isabel Tay MD [address] [place] [address] Hematology/Oncology 10/08/22 Transportation Design Engineer Relationship Specialty Start Date End Date Alisia Pacheco MD [address] [facility] [place] [address] PCP - General Internal Medicine 07/19/12 Arnold Bland MD [address], [place] [address] Consulting Cardiology 03/15/19 Panda Miller MD [address] [place] [address] Specialty Manager Of Transportation Pulmonary and Critical Care Medicine 08/03/20 Maria Isabel Tay MD [address] [place] [address] Hematology/Oncology 10/08/22 Transportation Design Engineer Relationship Specialty Start Date End Date Alisia Pacheco MD [address] [place] [address] PCP - General Internal Medicine 10/28/23 FOR [...] BE BASED ON THE PRIMARY CLINICAL RECORDS. [employer] [facility]. provides no warranty or guarantee of the accuracy or completeness of information in this document.
[2023-12-30 09:43] LABS: International Normalized Ratio 2.7; Prothrombin Time (Protime)PT. 28.5 SECONDS (11.7-14.9)
== END | disposition home or self-care (01) ==
LOC: LAB 04:17
PROVIDERS: PCP Internal Medicine; Visit Provider Internal Medicine Cardiovascular Disease
DX: I48.91 Unspecified atrial fibrillation (principal); Z79.01 Long term (current) use of 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
CPT/HCPCS: 36415; 85610

== ENCOUNTER 2024-01-05 09:47 | Emergency (ER) | payer MEDICARE, SELFPAY ==
[2024-01-05 09:49] VITALS: BP 121/59; PULSE 60; RESP 14; TEMP 36.3; O2SAT 95; BMI 22.6
--- NOTE | 2024-01-05 10:53 | EX.ED.DYSGE1 ---
HPI History of Present Illness Chief Complaint: Numb/Ting Informant: patient Onset/Context/Timing Onset: Yesterday Narrative Narrative: Patient presents secondary to numbness and tingling in her hands and her toes bilaterally. She states symptoms started yesterday. She has no pain. When she called her health care legal assistant this morning they suggested that she may have low potassium and should be seen for lab work. Patient reports chronic back pain that is not changed from baseline. No recent injury. She reports having similar symptoms in the past that would spontaneously resolve. She is not diabetic. [facility] Medical History (Updated 01/05/24 @ 12:[address] Aaliyah Ruvalcaba MD) Anticoagulated on Coumadin Atrial fibrillation Atrial flutter with rapid ventricular response Back pain Bladder cancer Chronic diastolic heart failure Chronic pain COPD (chronic obstructive pulmonary disease) Decreased cardiac ejection fraction Essential hypertension Fall Former smoker Hyperlipidemia Hypertrophic obstructive cardiomyopathy (HOCM) LBBB (left bundle branch block) Long QT interval Non-Hodgkin lymphoma Nonrheumatic mitral (valve) insufficiency On home oxygen therapy Pacemaker Paroxysmal atrial fibrillation Persistent atrial fibrillation Polyp, sigmoid colon Presence of permanent cardiac pacemaker (~12/10/21) Sick sinus syndrome Urinary retention Home Medications magnesium oxide 400 mg PO DAILY supplement 04/06/19 [History Last Taken 06/26/23] gabapentin 100 mg capsule 300 mg PO BID NERVE PAIN 10/04/22 [History Last Taken 06/25/23] acetaminophen 500 mg tablet 1,000 mg (2 x 500 mg) PO Q8 #0 tabs 01/26/23 [Rx Last Taken 06/26/23] furosemide 40 mg tablet 40 mg PO DAILY #90 tabs 05/18/23 [Rx Last Taken 06/26/23] buprenorphine 5 mcg/hour weekly transdermal patch 1 patch topical Q7D PAIN 06/26/23 [History Last Taken 06/24/23] oxycodone 5 mg tablet 5 mg PO Q12H PRN 08/21/23 [History Last Taken Unknown] metoprolol succinate 100 mg tablet,extended release 24 hr 100 mg PO DAILY Blood pressure #90 tabs 09/04/23 [Rx Last Taken Unknown] warfarin 3 mg tablet 3 mg PO .COMPLEX #90 tabs 10/07/23 [Rx Last Taken Unknown] amlodipine 5 mg tablet 5 mg PO DAILY this is a dose increase #90 tabs 02/28/24 [Rx Last Taken Unknown] lisinopril 20 mg tablet 20 mg PO BID #180 tabs 12/30/23 [Rx Last Taken Unknown] Allergy/AdvReac Type Severity Reaction Status Date / Time allopurinol Allergy upset gi Verified 01/05/24 09:49 tramadol AdvReac dizzy Verified 01/05/24 09:49 Family History Father Heart disease Hypertension Mother No cardiac disease Surgical History H/O cardiac radiofrequency ablation History of bladder surgery History of cardioversion (~04/25/20) History of left heart catheterization (LHC) (~11/30/17) History of mitral valve repair (~07/30/18) History of ventricular septal myectomy (~07/30/18) Social History household members: none Smoking Status: Former smoker pack-years: 58 how long ago did patient quit smokin years ago alcohol intake: never substance use type: does not use caffeine: No what type of physical activity do you participate in: walking ROS ROS ED Constitutional Constitutional ED: Denies chills or fever(s) Eyes Eyes: Denies change in vision or discharge from eye(s) ENT ENT ED: Denies discharge from eye(s), rhinorrhea or sore throat Cardiovascular Cardiovascular: Denies chest pain or palpitations Respiratory/Chest Respiratory/Chest: Denies cough or dyspnea Gastrointestinal Gastrointestinal: Denies abdominal pain, nausea or vomiting Musculoskeletal Musculoskeletal: Denies back pain or extremity pain Integumentary Denies Abrasions or rash Neurologic Neurologic: Reports paresthesias; Denies headache(s) or weakness Allergic/Immunologic Allergic/Immunologic ED: Denies lip swelling or urticaria EXAM Physical Exam Const Vital Signs: 01/05/24 09:49 Temperature 97.3 F L Temperature Source Temporal Pulse Rate 60 Respiratory Rate 14 Blood Pressure 121/59 H Blood Pressure Mean 79 Pulse Ox 95 Oxygen Delivery Method Room Air Positive well nourished and well developed General Appearance ED: well developed HEENT Reports moist mucous membranes Eyes EOMs intact bilaterally Chest Wall inspection of chest normal and palpation of chest normal Resp normal respiratory effort and clear to auscultation bilaterally Cardio regular rate and regular rhythm GI non-tender Palpation: soft Extremity normal to inspection Neuro oriented x3 Neuro Narrative: Good strength on testing throughout. Patient reports decreased sensation only over the toes and hands. No skin changes noted. Psych mental status grossly normal Skin no rashes or lesions noted MDM MDM MDM Narrative Medical decision making narrative: IV line will be established. Labwork obtained to evaluate for leukocytosis, anemia, and electrolyte derangement. Lab Data Attestation: I reviewed the patient's lab results. Labs: Laboratory Results - last 24 hr 01/05/24 01/05/24 10:59 11:41 WBC 8.6 RBC 5.79 H Hgb 15.5 H Hct 49.9 H MCV 86.2 MCH 26.8 L MCHC 31.1 L RDW Std Deviation 48.8 H RDW Coeff of Neelima 16.9 H Plt Count 258 MPV 10.7 Immature Gran % (Auto) 0.700 Neut % (Auto) 76.0 H Lymph % (Auto) 14.9 L Maverick % (Auto) 6.6 Eos % (Auto) 0.8 Baso % (Auto) 1.0 Absolute Neuts (auto) 6.5 Absolute Lymphs (auto) 1.28 Nucleated RBC % 0 PT Cancelled 31.9 H INR Cancelled 3.1 Sodium 144 Potassium 5.0 Chloride 107 Carbon Dioxide 30.0 Anion Gap 7 BUN 18 Creatinine 0.82 Estim Creat Clear Calc 47.81 Est GFR (MDRD) Af Amer 85 Est GFR (MDRD) Non-Af 70 BUN/Creatinine Ratio 21.8 H Glucose 101 Calcium 9.4 Magnesium 2.2 Treatment and Re-Evaluation :: CBC was normal white count 8.6 with hemoglobin concentrated at 15.5. Chemistry studies are unremarkable. Potassium of 5.0 with mild hemolysis. Magnesium is normal at 2.2. INR is therapeutic at 3.1. Test results discussed with the patient. I did encourage her to increase her p.o. fluids as her hemoglobin is slightly concentrated, however her renal function is normal at this time. I will give her information for neurology for follow-up should her symptoms persist. Discharge Plan Triage Chief Complaint: Numb/Ting ED Provider: Aaliyah Ruvalcaba Dx/Rx/DC Orders Clinical Impression: Paresthesias Instructions: ED Paraesthesias Prescriptions: No Action magnesium oxide 400 mg magnesium tablet 400 mg PO DAILY gabapentin 100 mg capsule 300 mg PO BID acetaminophen 500 mg Tablet 1,000 mg PO Q8 Qty: 0 0RF buprenorphine 5 mcg/hour patch weekly 1 patch topical Q7D Patient Comments: Apply 1 (ONE) patch transdermally EVERY WEEK FOR 28 DAYS oxycodone 5 mg tablet 5 mg PO Q12H PRN Patient Comments: TAKE 1 TABLET BY MOUTH TWICE DAILY FOR 28 DAYS furosemide 40 mg tablet 40 mg PO DAILY Qty: 90 3RF metoprolol succinate 100 mg tablet extended release 24 hr 100 mg PO DAILY Qty: 90 3RF warfarin 3 mg tablet 3 mg PO .COMPLEX Qty: 90 3RF Protocol: Dose Management Condition: Thursday Dose/Route: 1.5 mg Instruction: 0.5 x 3 mg tablets Condition: Thursday Dose/Route: 1.5 mg Instruction: 0.5 x 3 mg tablets Condition: Thursday Dose/Route: 1.5 mg Instruction: 0.5 x 3 mg tablets Condition: Thursday Dose/Route: 3 mg Instruction: 1 x 3 mg tablet Condition: Dose/Route: 3 mg Instruction: 1 x 3 mg tablet Condition: Thursday Dose/Route: 1.5 mg Instruction: 0.5 x 3 mg tablets Condition: Thursday Dose/Route: 1.5 mg Instruction: 0.5 x 3 mg tablets Protocol Text: Adjustment Start Date: Thursday12/30/23 INR Value: 2.7 INR Date: 12/30/23 Recheck Date: 01/13/24 Rx Instructions: 3 mg orally take 1/2 tablet (1.5mg) Thursday through Thursday; and take a whole tablet (3mg) on Thu and Thursday, OR DIRECTED; Please give extra pills for dose changes. lisinopril 20 mg tablet 20 mg PO BID Qty: 180 3RF amlodipine 5 mg tablet 5 mg PO DAILY Qty: 90 3RF Primary Care Provider: Cheyanne Holt Referrals: Cheyanne Holt MD [Primary Care Provider] - 1 Week if not improving Patrick Forrester MD [Non-Staff -Ordering Privileges] - As Needed Disposition Disposition: Home, Self Care
[2024-01-05 11:07] LABS: Absolute Lymphocyte Count 1.28 X10^3/uL (0.83-4.51); Absolute Neutrophil Count 6.5 X10^3/uL (2.0-7.7); Basophil# 0.09 X10^3/uL; Eosinophil# 0.07 X10^3/uL; Eosinophils% 0.8 % (0-5); Hematocrit 49.9 % (37-47); Hemoglobin 15.5 g/dL (12.0-15.0); Lymphocyte # 1.28 X10^3/ul (0.83-4.51); Lymphocyte % 14.9 % (19-41); Mean Corp Hgb Conc 31.1 g/dL (32-36); Mean Corpuscular Hgb 26.8 pg (27.0-32.0); Mean Corpuscular Volume 86.2 fL (81-99); Mean Platelet Vol. 10.7 fl (6.2-12.0); Monocyte# 0.57 X10^3/uL; Monocyte% 6.6 % (0-10); NRBC Flagged by Analyzer 0 % (0-5); Neutrophil # 6.52 X10^3/uL (2.7-7.7); Platelet Count 258 K/mm3 (150-450); RBC Distribution Width CV 16.9 % (11.6-14.6); RBC Distribution Width SD 48.8 fl (35.1-43.9); Red Blood Count 5.79 M/mm3 (4.2-5.4); White Blood Count 8.6 K/mm3 (4.4-11.0)
[2024-01-05 11:21] LABS: Anion Gap 7 (5-15); BUN 18 mg/dL (7-18); BUN/Creat Ratio 21.8 RATIO (10-20); Calcium,Total 9.4 mg/dL (8.5-10.1); Chloride 107 mmol/L (98-107); Creatinine, Serum 0.82 mg/dL (0.55-1.02); EST Glomerular Filtration Rate 70 mL/min (>60); Est Glom Filt Rate - Afr Amer 85 mL/min (>60); Estimated Creatinine Clearance 47.81 ml/min; Glucose 101 mg/dL (74-106); Magnesium 2.2 mg/dL (1.6-2.6); Sodium Level 144 mmol/L (136-145)
[2024-01-05 11:58] LABS: International Normalized Ratio 3.1; Prothrombin Time (Protime)PT. 31.9 SECONDS (11.7-14.9)
== END 2024-01-05 12:32 | disposition home or self-care (01) ==
PROVIDERS: Emergency Provider Emergency Medicine; PCP Internal Medicine; Visit Provider Emergency Medicine
DX: R20.2 Paresthesia of skin (principal); I50.32 Chronic diastolic (congestive) heart failure; I11.0 Hypertensive heart disease with heart failure; I48.0 Paroxysmal atrial fibrillation; M54.9 Dorsalgia, unspecified; G89.29 Other chronic pain; Z79.01 Long term (current) use of 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; Z79.899 Other long term (current) drug therapy; Z87.891 Personal history of nicotine dependence; Z95.0 Presence of cardiac pacemaker
CPT/HCPCS: 80048; 83735; 85025; 85610; 99284; A4216

== ENCOUNTER → 2024-01-20 | Outpatient (CLI) | payer MEDICARE, SELFPAY ==
[2024-01-20 10:38] LABS: International Normalized Ratio 2.1; Prothrombin Time (Protime)PT. 23.2 SECONDS (11.7-14.9)
== END | disposition home or self-care (01) ==
LOC: LAB 08:21
PROVIDERS: PCP Internal Medicine; Visit Provider Internal Medicine Cardiovascular Disease
DX: I48.91 Unspecified atrial fibrillation (principal); Z79.01 Long term (current) use of 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
CPT/HCPCS: 36415; 85610

== ENCOUNTER → 2024-02-03 | Outpatient (CLI) | payer MEDICARE, SELFPAY ==
[2024-02-03 10:10] LABS: International Normalized Ratio 2.4; Prothrombin Time (Protime)PT. 26.3 SECONDS (11.7-14.9)
== END | disposition home or self-care (01) ==
LOC: LAB 04:11
PROVIDERS: PCP Internal Medicine; Visit Provider Internal Medicine Cardiovascular Disease
DX: I48.91 Unspecified atrial fibrillation (principal); Z79.01 Long term (current) use of 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
CPT/HCPCS: 36415; 85610

== ENCOUNTER → 2024-02-17 | Outpatient (CLI) | payer MEDICARE, SELFPAY ==
[2024-02-17 10:24] LABS: International Normalized Ratio 2.3; Prothrombin Time (Protime)PT. 24.9 SECONDS (11.7-14.9)
== END | disposition home or self-care (01) ==
LOC: LAB 08:48
PROVIDERS: PCP Internal Medicine; Visit Provider Internal Medicine Cardiovascular Disease
DX: I48.91 Unspecified atrial fibrillation (principal); Z79.01 Long term (current) use of 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
CPT/HCPCS: 36415; 85610

== ENCOUNTER 2024-03-04 18:01 | Emergency (ER) | payer MEDICARE, SELFPAY ==
[2024-03-04 18:02] VITALS: BP 145/76; PULSE 85; RESP 16; TEMP 36.6; O2SAT 97; BMI 21.9
--- NOTE | 2024-03-04 18:46 | ED.VIS.FEGU ---
HPI HPI - Female History of Present Illness Chief Complaint: Complaint Informant: patient Narrative Narrative: Patient has had urinary frequency and lower abdominal pressure for the past 3 to 4 days. She saw her doctor on day 1 or 2 of the symptoms had a urinalysis in the office prescribed Cipro, she states symptoms are getting worse and she was advised to come here tonight Thursday night. She states the frequency now is making her urinate every hour. She denies any abdominal pains otherwise, no new back pains, no chills or feeling poorly but she states when she was in the office although she felt okay, she had a fever. She denies any cough or dyspnea or other symptoms. Denies hematuria. She does not have chronic urinary issues. [facility] Medical History Anticoagulated on Coumadin Atrial fibrillation Atrial flutter with rapid ventricular response Back pain Bladder cancer Chronic diastolic heart failure Chronic pain COPD (chronic obstructive pulmonary disease) Decreased cardiac ejection fraction Essential hypertension Fall Former smoker Hyperlipidemia Hypertrophic obstructive cardiomyopathy (HOCM) LBBB (left bundle branch block) Long QT interval Non-Hodgkin lymphoma Nonrheumatic mitral (valve) insufficiency On home oxygen therapy Pacemaker Paroxysmal atrial fibrillation Persistent atrial fibrillation Polyp, sigmoid colon Presence of permanent cardiac pacemaker (~12/10/21) Sick sinus syndrome Urinary retention Home Medications magnesium oxide 400 mg PO DAILY supplement 04/06/19 [History Last Taken 06/26/23] gabapentin 100 mg capsule 300 mg PO BID NERVE PAIN 10/04/22 [History Last Taken 06/25/23] acetaminophen 500 mg tablet 1,000 mg (2 x 500 mg) PO Q8 #0 tabs 01/26/23 [Rx Last Taken 06/26/23] furosemide 40 mg tablet 40 mg PO DAILY #90 tabs 05/18/23 [Rx Last Taken 06/26/23] buprenorphine 5 mcg/hour weekly transdermal patch 1 patch topical Q7D PAIN 06/26/23 [History Last Taken 06/24/23] oxycodone 5 mg tablet 5 mg PO Q12H PRN 08/21/23 [History Last Taken Unknown] metoprolol succinate 100 mg tablet,extended release 24 hr 100 mg PO DAILY Blood pressure #90 tabs 09/04/23 [Rx Last Taken Unknown] warfarin 3 mg tablet 3 mg PO .COMPLEX #90 tabs 10/07/23 [Rx Last Taken Unknown] amlodipine 5 mg tablet 5 mg PO DAILY this is a dose increase #90 tabs 12/30/23 [Rx Last Taken Unknown] lisinopril 20 mg tablet 20 mg PO BID #180 tabs 12/30/23 [Rx Last Taken Unknown] cephalexin 500 mg capsule 500 mg PO Q6 5 days #20 CAPSULES 03/04/24 [Rx Last Taken Unknown] Allergy/AdvReac Type Severity Reaction Status Date / Time allopurinol Allergy upset gi Verified 03/04/24 18:02 tramadol AdvReac dizzy Verified 03/04/24 18:02 Family History Father Heart disease Hypertension Mother No cardiac disease Surgical History H/O cardiac radiofrequency ablation History of bladder surgery History of cardioversion (~04/25/20) History of left heart catheterization (LHC) (~11/30/17) History of mitral valve repair (~07/30/18) History of ventricular septal myectomy (~07/30/18) Social History household members: none Smoking Status: Former smoker pack-years: 58 how long ago did patient quit smokin years ago alcohol intake: never substance use type: does not use caffeine: No what type of physical activity do you participate in: walking ROS ROS ED Constitutional Constitutional ED: Denies chills or fever(s) ENT ENT ED: Denies rhinorrhea or sore throat Cardiovascular Cardiovascular: Denies chest pain or palpitations Respiratory/Chest Respiratory/Chest: Denies cough or dyspnea Gastrointestinal Gastrointestinal: Denies abdominal pain, diarrhea, nausea or vomiting Genitourinary Genitourinary ED: Reports urinary frequency; Denies dysuria or hematuria Musculoskeletal Musculoskeletal: Reports other Details: Chronic low back pain unchanged ; Denies neck pain Integumentary Denies abscess or rash Neurologic Neurologic: Denies headache(s), paresthesias or weakness EXAM Physical Exam Const Vital Signs: 03/04/24 18:02 Temperature 97.8 F Temperature Source Temporal Pulse Rate 85 Respiratory Rate 16 Blood Pressure 145/76 H Blood Pressure Mean 99 Pulse Ox 97 Oxygen Delivery Method Room Air Positive well developed Constitutional Narrative: Well-appearing General Appearance ED: well developed and NAD HEENT Reports moist mucous membranes Eyes PERRL and EOMs intact bilaterally Neck supple Chest Wall inspection of chest normal and palpation of chest normal Resp normal respiratory effort Effort and Inspection: able to speak in complete sentences GI normal to inspection, nondistended, normoactive bowel sounds, soft to palpation and non-tender Back/Spine no CVA tenderness Back/Spine Narrative: from Extremity normal to inspection and full ROM Neuro oriented x3, CN's II-XII intact bilaterally, no sensory deficits noted and gait normal Motor Exam: strength 5/5 throughout Psych mental status grossly normal Skin no rashes or lesions noted and no wounds MDM MDM MDM Narrative Medical decision making narrative: We did a postvoid residual, it was 0. Patient states she was sent in out of concern for some type of obstruction, I think this rules that out. We sent a urinalysis that shows some leukocyte Estrace and a few white blood cells, but fairly unimpressive. Given her symptoms, I am concerned about acute cystitis which would make the most sense here. She states she was recently on Cipro for this, certainly possible that she could have had a resistant infection since there is a high likelihood of resistant E. coli. I am going to send a culture and start her on a 5-day course of cephalexin over the weekend which hopefully will help (on warfarin, so cephalexin less likely to increase INR than Bactrim). I did review old records I do not have any record of the urinalysis that she recently had. She is comfortable with this plan. History & Record Review Additional record(s) reviewed:: Other (Reviewed prior records but urinalysis not able to be seen.) Lab Data Attestation: I reviewed the patient's lab results. Labs: Laboratory Results - last 24 hr 03/04/24 19:09 Urine Color Yellow Urine Clarity Clear Urine pH 6.0 Ur Specific [place] 1.010 Urine Protein 30 H Urine Glucose (UA) Normal Urine Ketones Negative Urine Occult Blood 25 H Urine Nitrite Negative Urine Bilirubin Negative Urine Urobilinogen Normal Ur Leukocyte Esterase 100 H Urine RBC 0 SEEN Urine WBC 0-5 SEEN Ur Squamous Epith Cells 0-5 SEEN Urine Bacteria 0 SEEN Urine Mucus 0 SEEN Discharge Plan Triage Chief Complaint: Complaint ED Provider: Israel Torre Dx/Rx/DC Orders Clinical Impression: Acute cystitis without hematuria Instructions: ED Cystitis Female Adult Prescriptions: New cephalexin [cephalexin] 500 mg capsule 500 mg PO Q6 5 Days Qty: 20 0RF No Action magnesium oxide 400 mg magnesium tablet 400 mg PO DAILY gabapentin 100 mg capsule 300 mg PO BID acetaminophen 500 mg Tablet 1,000 mg PO Q8 Qty: 0 0RF buprenorphine 5 mcg/hour patch weekly 1 patch topical Q7D Patient Comments: Apply 1 (ONE) patch transdermally EVERY WEEK FOR 28 DAYS oxycodone 5 mg tablet 5 mg PO Q12H PRN Patient Comments: TAKE 1 TABLET BY MOUTH TWICE DAILY FOR 28 DAYS furosemide 40 mg tablet 40 mg PO DAILY Qty: 90 3RF metoprolol succinate 100 mg tablet extended release 24 hr 100 mg PO DAILY Qty: 90 3RF warfarin 3 mg tablet 3 mg PO .COMPLEX Qty: 90 3RF Protocol: Dose Management Condition: Thursday Dose/Route: 1.5 mg Instruction: 0.5 x 3 mg tablets Condition: Thursday Dose/Route: 1.5 mg Instruction: 0.5 x 3 mg tablets Condition: Thursday Dose/Route: 1.5 mg Instruction: 0.5 x 3 mg tablets Condition: Thursday Dose/Route: 3 mg Instruction: 1 x 3 mg tablet Condition: Dose/Route: 3 mg Instruction: 1 x 3 mg tablet Condition: Thursday Dose/Route: 1.5 mg Instruction: 0.5 x 3 mg tablets Condition: Thursday Dose/Route: 1.5 mg Instruction: 0.5 x 3 mg tablets Protocol Text: Adjustment Start Date: Thursday02/17/24 INR Value: 2.3 INR Date: 02/17/24 Recheck Date: 03/09/24 Rx Instructions: 3 mg orally take 1/2 tablet (1.5mg) Thursday through Thursday; and take a whole tablet (3mg) on Thu and Thursday, OR DIRECTED; Please give extra pills for dose changes. lisinopril 20 mg tablet 20 mg PO BID Qty: 180 3RF amlodipine 5 mg tablet 5 mg PO DAILY Qty: 90 3RF Primary Care Provider: Cheyanne Holt Referrals: Cheyanne Holt MD [Primary Care Provider] - 3-5 Days if not improving Disposition Disposition: Home, Self Care
[2024-03-04 19:20] LABS: Color, Urine Yellow (Yellow); Glucose, Dipstick Normal (Normal); Ketone-Dipstick Negative (Negative); Leukocyte Esterase-Dipstick 100 /ul (Negative); Nitrite-Dipstick Negative (Negative); Occult Blood-Urine 25 /ul (Negative); Protein-Dipstick 30 mg/dl (Negative); Urine Bilirubin Dipstick Negative (Negative); Urine Clarity Clear (Clear); Urine Urobilinogen Normal (Normal)
[2024-03-04 19:21] LABS: Bacteria 0 SEEN /hpf (None Seen); Mucous, Urine 0 SEEN /hpf (<or=2+); Red Blood Cells-Urine 0 SEEN /hpf (0-5)
[2024-03-04 19:28] LABS: Squamous Epithelial Cells - UA 0-5 SEEN /hpf (5-10); White Blood Cells 0-5 SEEN /hpf (0-5)
[2024-03-04] MEDS: Cephalexin 250 MG Capsule 500 MG PO (20:09)
[2024-03-04 20:10] VITALS: BP 122/89; PULSE 79; RESP 14; TEMP 36.4; O2SAT 97
== END 2024-03-04 20:13 | disposition home or self-care (01) ==
PROVIDERS: Emergency Provider Emergency Medicine; PCP Internal Medicine; Visit Provider Emergency Medicine
DX: N30.00 Acute cystitis without hematuria (principal); I11.0 Hypertensive heart disease with heart failure; I50.32 Chronic diastolic (congestive) heart failure; J44.9 Chronic obstructive pulmonary disease, unspecified; I48.0 Paroxysmal atrial fibrillation; R35.0 Frequency of micturition; E78.5 Hyperlipidemia, unspecified; Z99.81 Dependence on supplemental oxygen; Z79.01 Long term (current) use of 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; Z79.899 Other long term (current) drug therapy; Z87.891 Personal history of nicotine dependence
CPT/HCPCS: 81001; 87086; 99282

== ENCOUNTER → 2024-03-08 | Outpatient (CLI) | payer MEDICARE, SELFPAY ==
[2024-03-08 11:33] LABS: International Normalized Ratio 2.6; Prothrombin Time (Protime)PT. 27.4 SECONDS (11.7-14.9)
== END | disposition home or self-care (01) ==
LOC: LAB 09:48
PROVIDERS: PCP Internal Medicine; Visit Provider Internal Medicine Cardiovascular Disease
DX: I48.91 Unspecified atrial fibrillation (principal); Z79.01 Long term (current) use of 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
CPT/HCPCS: 36415; 85610

== ENCOUNTER → 2024-04-11 | Outpatient (CLI) | payer MEDICARE, SELFPAY ==
[2024-04-11 11:02] LABS: International Normalized Ratio 2.2; Prothrombin Time (Protime)PT. 24.2 SECONDS (11.7-14.9)
== END | disposition home or self-care (01) ==
LOC: LAB 08:18
PROVIDERS: PCP Internal Medicine; Visit Provider Internal Medicine Cardiovascular Disease
DX: I48.91 Unspecified atrial fibrillation (principal); Z79.01 Long term (current) use of 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
CPT/HCPCS: 85610

== ENCOUNTER → 2024-05-09 | Outpatient (CLI) | payer MEDICARE, SELFPAY ==
[2024-05-09 11:03] LABS: International Normalized Ratio 2.6; Prothrombin Time (Protime)PT. 27.9 SECONDS (11.7-14.9)
== END | disposition home or self-care (01) ==
LOC: LAB 10:13
PROVIDERS: PCP Internal Medicine; Visit Provider Internal Medicine Cardiovascular Disease
DX: Z79.01 Long term (current) use of 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 (principal); I50.32 Chronic diastolic (congestive) heart failure; I48.91 Unspecified atrial fibrillation; R79.1 Abnormal coagulation profile
CPT/HCPCS: 36415; 85610

== ENCOUNTER → 2024-05-12 | Outpatient (CLI) | payer MEDICARE, SELFPAY ==
--- NOTE | 2024-05-12 13:02 | ART_ITS ---
Reason For Study: Decreased pedal pulses Left Segmental Pressures Left brachial= 157mmHg. Left calf = 159mmHg. Left posterior tibial artery = 141mmHg. Left dorsalis pedis artery = 148mmHg. The left dorsalis pedis waveforms are biphasic. The left posterior tibial artery waveforms are biphasic. Right Segmental Pressures Right brachial= 154mmHg. Right calf = 165mmHg. Right posterior tibial artery = 103mmHg. Right dorsalis pedis artery = 145mmHg. The right dorsalis pedis waveforms are triphasic. The right posterior tibial artery waveforms are biphasic. Indices The right ankle brachial index by the dorsalis pedis is 0.92. The right ankle brachial index by the posterior tibial artery is 0.66. The left ankle brachial index by the dorsalis pedis is 0.94. The left ankle brachial index by the posterior tibial artery is 0.90. VL/Lower Ext Art Exam w/o Exercis Interpretation Summary Right GENE 0.92, mildly diminished. Doppler/PVR waveforms of the right ankle mil dly diminished at rest. Left GENE 0.94, mildly diminished. Doppler/PVR waveforms of the left ankle mildl y diminished at rest. Ordering Physician: Portia Ogden Referring Physician: Cheyanne Holt M.D. Performed By: Rl Blanca RVT and Student
== END | disposition home or self-care (01) ==
LOC: CVS 12:59
PROVIDERS: PCP Internal Medicine; Referring Provider Physician Assistant Medical; Visit Provider Physician Assistant Medical
DX: I73.9 Peripheral vascular disease, unspecified (principal)
CPT/HCPCS: 93923

== ENCOUNTER → 2024-06-06 | Outpatient (CLI) | payer MEDICARE, SELFPAY ==
[2024-06-06 10:29] LABS: International Normalized Ratio 2.2; Prothrombin Time (Protime)PT. 24.1 SECONDS (11.7-14.9)
[2024-06-06 10:39] LABS: AST(SGOT) 19 U/L (15-37); Alanine Aminotransfer ALT/SGPT 13 U/L (13-56); Albumin, Serum 3.5 g/dL (3.2-5.0); Alkaline Phosphatase 77 U/L (45-117); Bilirubin, Direct 0.19 mg/dL (0.00-0.30); Cholesterol 150 mg/dL (200); Globulin 3.6 g/dL (2.2-4.2); High Density Lipoprotein 49 mg/dL; Protein, Total 7.1 g/dL (6.4-8.2); Triglycerides 133 mg/dL; Very Low Density Lipoprotein 27 mg/dL (5-40)
== END | disposition home or self-care (01) ==
LOC: LAB 08:42
PROVIDERS: Physician Assistant Medical; PCP Internal Medicine; Visit Provider Internal Medicine Cardiovascular Disease
DX: R79.1 Abnormal coagulation profile (principal); I50.32 Chronic diastolic (congestive) heart failure; I48.91 Unspecified atrial fibrillation; Z79.01 Long term (current) use of 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; E78.5 Hyperlipidemia, unspecified
CPT/HCPCS: 36415; 80061; 80076; 85610

== ENCOUNTER 2024-07-05 09:33 | Outpatient (CLI) | payer MEDICARE, SELFPAY ==
[2024-07-05 10:49] LABS: Prothrombin Time (Protime)PT. 41.1 SECONDS (11.7-14.9)
[2024-07-05 11:00] LABS: International Normalized Ratio 4.3
== END 2024-07-05 23:59 | disposition home or self-care (01) ==
LOC: LAB 09:35
PROVIDERS: PCP Internal Medicine; Visit Provider Internal Medicine Cardiovascular Disease
DX: I48.91 Unspecified atrial fibrillation (principal); I50.32 Chronic diastolic (congestive) heart failure; R79.1 Abnormal coagulation profile; Z79.01 Long term (current) use of 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
CPT/HCPCS: 36415; 85610

== ENCOUNTER → 2024-07-06 | Outpatient (CLI) | payer MEDICARE, SELFPAY ==
[2024-07-06 11:55] LABS: Prothrombin Time (Protime)PT. 30.8 SECONDS (11.7-14.9)
== END | disposition home or self-care (01) ==
LOC: LAB 11:24
PROVIDERS: PCP Internal Medicine; Referring Provider Physician Assistant Medical; Visit Provider Physician Assistant Medical
DX: Z79.01 Long term (current) use of 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 (principal)
CPT/HCPCS: 36415; 85610

== ENCOUNTER → 2024-07-13 | Outpatient (CLI) | payer MEDICARE, SELFPAY ==
[2024-07-13 10:42] LABS: International Normalized Ratio 1.5; Prothrombin Time (Protime)PT. 17.7 SECONDS (11.7-14.9)
== END | disposition home or self-care (01) ==
LOC: LAB 09:24
PROVIDERS: PCP Internal Medicine; Visit Provider Internal Medicine Cardiovascular Disease
DX: I50.32 Chronic diastolic (congestive) heart failure (principal); I48.91 Unspecified atrial fibrillation; R79.1 Abnormal coagulation profile; Z79.01 Long term (current) use of 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
CPT/HCPCS: 85610

== ENCOUNTER 2024-07-23 17:42 | Emergency (ER) | payer MEDICARE, SELFPAY ==
[2024-07-23 17:42] VITALS: BP 161/76; PULSE 59; RESP 16; TEMP 36.8; O2SAT 94; BMI 21.1
[2024-07-23 18:33] LABS: Mucous, Urine 0 SEEN /hpf (<or=2+)
[2024-07-23 18:39] LABS: Color, Urine Yellow (Yellow); Glucose, Dipstick Normal (Normal); Ketone-Dipstick Negative (Negative); Leukocyte Esterase-Dipstick 25 /ul (Negative); Nitrite-Dipstick Negative (Negative); Occult Blood-Urine 10 /ul (Negative); Protein-Dipstick 15 mg/dl (Negative); Urine Bilirubin Dipstick Negative (Negative); Urine Clarity Sl. Cloudy (Clear); Urine Urobilinogen Normal (Normal)
[2024-07-23 18:48] LABS: Bacteria 1+ /hpf (None Seen); Fine Granular Cast- Urine 0-5 SEEN /lpf (0-5); Red Blood Cells-Urine 0-5 SEEN /hpf (0-5); Renal Epithelial Cells 0-5 SEEN /hpf (0-5); Squamous Epithelial Cells - UA 0-5 SEEN /hpf (5-10); Transitional Epithelial - Ur 0-5 SEEN /hpf (0-5); White Blood Cells 0-5 SEEN /hpf (0-5)
--- NOTE | 2024-07-23 19:10 | EX.ED.DYSGE1 ---
HPI History of Present Illness Chief Complaint: Flank Pain Detail of Chief Complaint: Patient presents with frequency and urgency that started last evening Informant: patient Onset/Context/Timing Onset: Yesterday Context: Sudden Onset Timing: Intermittent Quality: Urination every 30 minutes Location: Current Severity: Not applicable Maximum Severity: Not applicable Worsened by: Not applicable Relieved by: Nothing Associated Symptoms Associated Symptoms: No constitutional symptoms, nausea vomiting or flank pain Narrative Narrative: Patient is an 84-year-old woman. She has had urinary tract infection in the past. She not had urinary tract infection in 1 to 2 years. She denies fever, chills night sweats. Denies nausea or vomiting. She denies flank pain. She has slight discomfort in the suprapubic area. She states she is urinating every 30 minutes. She is not noted any change in the color of her urine or blood in her urine. She is on no antithrombotic. She is on anticoagulant. Prior similar symptoms: Yes Recent Illness/Hospitalization: No PFSH PFSH Medical History Hyperlipidemia Chronic pain Pacemaker Urinary retention Decreased cardiac ejection fraction Anticoagulated on Coumadin Paroxysmal atrial fibrillation Fall Back pain Essential hypertension Former smoker On home oxygen therapy Presence of permanent cardiac pacemaker (~12/10/21) Sick sinus syndrome Polyp, sigmoid colon Persistent atrial fibrillation Atrial fibrillation LBBB (left bundle branch block) Hypertrophic obstructive cardiomyopathy (HOCM) Long QT interval Chronic diastolic heart failure COPD (chronic obstructive pulmonary disease) Nonrheumatic mitral (valve) insufficiency Non-Hodgkin lymphoma Bladder cancer Atrial flutter with rapid ventricular response Home Medications ?Medication ?Instructions ?Recorded ?Last Taken ?Type magnesium oxide 400 mg PO DAILY supplement 04/06/19 06/26/23 History gabapentin 100 mg capsule 300 mg PO BID NERVE PAIN 10/04/22 06/25/23 History acetaminophen 500 mg tablet 1,000 mg (2 x 500 mg) PO Q8 #0 tabs 01/26/23 06/26/23 Rx furosemide 40 mg tablet 40 mg PO DAILY #90 tabs 05/18/23 06/26/23 Rx buprenorphine 5 mcg/hour weekly 1 patch topical Q7D PAIN 06/26/23 06/24/23 History transdermal patch oxycodone 5 mg tablet 5 mg PO Q12H PRN 08/21/23 Unknown History metoprolol succinate 100 mg 100 mg PO DAILY Blood pressure #90 09/04/23 Unknown Rx tablet,extended release 24 hr tabs warfarin 3 mg tablet 3 mg PO .COMPLEX #90 tabs 10/07/23 Unknown Rx amlodipine 5 mg tablet 5 mg PO DAILY this is a dose 12/30/23 Unknown Rx increase #90 tabs lisinopril 20 mg tablet 20 mg PO BID #180 tabs 12/30/23 Unknown Rx rosuvastatin 5 mg tablet 5 mg PO DAILY #30 tabs 05/19/24 Unknown Rx nitrofurantoin 100 mg PO Q12 #14 CAPSULES 07/23/24 Unknown Rx monohydrate/macrocrystals 100 mg capsule phenazopyridine 200 mg tablet 200 mg PO TID 6 doses #6 tabs 07/23/24 Unknown Rx (Pyridium) Allergy/AdvReac Type Severity Reaction Status Date / Time allopurinol AdvReac Mild upset gi Verified 07/23/24 17:43 tramadol AdvReac dizzy Verified 07/23/24 17:43 Family History Father Heart disease Hypertension Mother No cardiac disease Surgical History H/O cardiac radiofrequency ablation History of mitral valve repair (~07/30/18) History of ventricular septal myectomy (~07/30/18) History of left heart catheterization (LHC) (~11/30/17) History of bladder surgery History of cardioversion (~04/25/20) Social History household members: none Smoking Status: Former smoker pack-years: 58 how long ago did patient quit smokin years ago alcohol intake: never substance use type: does not use caffeine: No what type of physical activity do you participate in: walking ROS ROS ED Constitutional Constitutional ED: Denies chills, fever(s), subjective, sweats or weight loss Cardiovascular Cardiovascular: Denies chest pain or palpitations Respiratory/Chest Respiratory/Chest: Denies dyspnea Gastrointestinal Gastrointestinal: Denies abdominal pain, nausea or vomiting Genitourinary Genitourinary ED: Reports urinary frequency; Denies dysuria or hematuria Musculoskeletal Musculoskeletal: Denies back pain Integumentary Denies rash EXAM Physical Exam Const Vital Signs: 07/23/24 17:42 Temperature 98.3 F Temperature Source Oral Pulse Rate 59 L Respiratory Rate 16 Blood Pressure 161/76 H Blood Pressure Mean 104 Pulse Ox 94 Oxygen Delivery Method Room Air Positive well nourished and well developed Constitutional Narrative: Pleasant 84-year-old woman who looks younger than reported age. General Appearance ED: well developed and NAD; Negative for pallor HEENT Reports moist mucous membranes HEENT Narrative: Head is atraumatic normocephalic. Ears normal. Nares patent. Eyes PERRL and EOMs intact bilaterally General Eye ED: Negative for pale conjunctiva or scleral icterus Neck No no lymphadenopathy, No supple and No no JVD Resp normal respiratory effort Cardio regular rate and regular rhythm GI normal to inspection, nondistended, normoactive bowel sounds, non-distended and no masses; Negative for hepatosplenomegaly Palpation: tender suprapubic; Negative for soft Back/Spine no CVA tenderness Extremity normal to inspection Neuro oriented x3 and CN's II-XII intact bilaterally Sensorium / Orientation: alert Psych mental status grossly normal Skin no rashes or lesions noted and no wounds General Skin Exam: Negative for jaundice or pallor MDM MDM MDM Narrative Medical decision making narrative: Patient's symptoms are consistent with urinary tract infection i.e. acute cystitis. Will obtain UA to confirm or support impression. It is not my opinion or believe the patient has pyelonephritis or obstructing stone. Lab Data Attestation: I reviewed the patient's lab results. Lab results narrative: Urine reveals 0-5 RBCs and WBCs with 1+ bacteria. This is not classic for urinary tract infection however she is going every 30 minutes. Furthermore, she is symptomatic. Labs: Laboratory Results - last 24 hr 07/23/24 18:15 Urine Color Yellow Urine Clarity Sl. Cloudy Urine pH 5.0 Ur Specific [place] 1.020 Urine Protein 15 H Urine Glucose (UA) Normal Urine Ketones Negative Urine Occult Blood 10 H Urine Nitrite Negative Urine Bilirubin Negative Urine Urobilinogen Normal Ur Leukocyte Esterase 25 H Urine RBC 0-5 SEEN Urine WBC 0-5 SEEN Ur Squamous Epith Cells 0-5 SEEN Ur Transition Epith Cell 0-5 SEEN Ur Renal Epithelial Cell 0-5 SEEN Urine Bacteria 1+ Fine Granular Casts 0-5 SEEN Urine Mucus 0 SEEN Treatment and Re-Evaluation :: Patient received her first dose of Macrobid and Pyridium in the emergency department. Discharge Plan Triage Chief Complaint: Flank Pain ED Provider: Javad Kim Dx/Rx/DC Orders Clinical Impression: Acute bacterial simple cystitis, Decreased cardiac ejection fraction, Anticoagulant long-term use, Non-Hodgkin lymphoma, Essential hypertension Instructions: ED Cystitis Female Adult Prescriptions: New nitrofurantoin monohyd/m-cryst 100 mg capsule 100 mg PO Q12 Qty: 14 0RF phenazopyridine [Pyridium] 200 mg tablet 200 mg PO TID Qty: 6 0RF No Action magnesium oxide 400 mg magnesium tablet 400 mg PO DAILY gabapentin 100 mg capsule 300 mg PO BID acetaminophen 500 mg Tablet 1,000 mg PO Q8 Qty: 0 0RF buprenorphine 5 mcg/hour patch weekly 1 patch topical Q7D Patient Comments: Apply 1 (ONE) patch transdermally EVERY WEEK FOR 28 DAYS oxycodone 5 mg tablet 5 mg PO Q12H PRN Patient Comments: TAKE 1 TABLET BY MOUTH TWICE DAILY FOR 28 DAYS furosemide 40 mg tablet 40 mg PO DAILY Qty: 90 3RF metoprolol succinate 100 mg tablet extended release 24 hr 100 mg PO DAILY Qty: 90 3RF warfarin 3 mg tablet 3 mg PO .COMPLEX Qty: 90 3RF Protocol: Dose Management Condition: Thursday Dose/Route: 1.5 mg Instruction: 0.5 x 3 mg tablets Condition: Thursday Dose/Route: 1.5 mg Instruction: 0.5 x 3 mg tablets Condition: Thursday Dose/Route: 1.5 mg Instruction: 0.5 x 3 mg tablets Condition: Thursday Dose/Route: 3 mg Instruction: 1 x 3 mg tablet Condition: Dose/Route: 3 mg Instruction: 1 x 3 mg tablet Condition: Thursday Dose/Route: 1.5 mg Instruction: 0.5 x 3 mg tablets Condition: Thursday Dose/Route: 1.5 mg Instruction: 0.5 x 3 mg tablets Protocol Text: Adjustment Start Date: Thursday07/13/24 INR Value: 1.5 INR Date: 07/13/24 Recheck Date: 07/27/24 Rx Instructions: 3 mg orally take 1/2 tablet (1.5mg) Thursday through Thursday; and take a whole tablet (3mg) on Thu and Thursday, OR DIRECTED; Please give extra pills for dose changes. lisinopril 20 mg tablet 20 mg PO BID Qty: 180 3RF amlodipine 5 mg tablet 5 mg PO DAILY Qty: 90 3RF rosuvastatin 5 mg tablet 5 mg PO DAILY Qty: 30 11RF Primary Care Provider: Cheyanne Holt Referrals: Cheyanne Holt MD [Primary Care Provider] - 3-5 Days if not improving Print Language: Sami Disposition Disposition: Home, Self Care
[2024-07-23 19:27] VITALS: BP 152/66; PULSE 58; RESP 16; TEMP 36.8; O2SAT 96
[2024-07-23] MEDS: Phenazopyridine 95 MG Tablet 190 MG PO (19:27)
[2024-07-23] MEDS: Nitrofurantoin Macrocrystals 100 MG Capsule PO (19:27)
== END 2024-07-23 19:29 | disposition home or self-care (01) ==
PROVIDERS: Emergency Provider Emergency Medicine; PCP Internal Medicine; Visit Provider Emergency Medicine
DX: N30.00 Acute cystitis without hematuria (principal); C85.90 Non-Hodgkin lymphoma, unspecified, unspecified site; I11.0 Hypertensive heart disease with heart failure; I50.32 Chronic diastolic (congestive) heart failure; J44.9 Chronic obstructive pulmonary disease, unspecified; I48.0 Paroxysmal atrial fibrillation; I42.1 Obstructive hypertrophic cardiomyopathy; E78.5 Hyperlipidemia, unspecified; G89.29 Other chronic pain; Z79.01 Long term (current) use of 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; Z79.899 Other long term (current) drug therapy; Z87.891 Personal history of nicotine dependence; Z99.81 Dependence on supplemental oxygen; Z95.0 Presence of cardiac pacemaker
CPT/HCPCS: 81001; 99283

== ENCOUNTER → 2024-07-27 | Outpatient (CLI) | payer MEDICARE, SELFPAY ==
[2024-07-27 09:39] LABS: Prothrombin Time (Protime)PT. 30.8 SECONDS (11.7-14.9)
== END | disposition home or self-care (01) ==
LOC: LAB 09:02
PROVIDERS: PCP Internal Medicine; Visit Provider Internal Medicine Cardiovascular Disease
DX: I50.32 Chronic diastolic (congestive) heart failure (principal); I48.91 Unspecified atrial fibrillation; Z79.01 Long term (current) use of 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; R79.1 Abnormal coagulation profile
CPT/HCPCS: 36415; 85610

== ENCOUNTER → 2024-08-15 | Outpatient (CLI) | payer MEDICARE, SELFPAY ==
[2024-08-15 09:56] LABS: International Normalized Ratio 2.1; Prothrombin Time (Protime)PT. 23.3 SECONDS (11.7-14.9)
== END | disposition home or self-care (01) ==
LOC: LAB 08:40
PROVIDERS: PCP Internal Medicine; Visit Provider Internal Medicine Cardiovascular Disease
DX: I48.91 Unspecified atrial fibrillation (principal); Z79.01 Long term (current) use of 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
CPT/HCPCS: 36415; 85610

== ENCOUNTER → 2024-09-12 | Outpatient (CLI) | payer MEDICARE, SELFPAY ==
[2024-09-12 10:59] LABS: International Normalized Ratio 2.5; Prothrombin Time (Protime)PT. 26.4 SECONDS (11.7-14.9)
== END | disposition home or self-care (01) ==
LOC: LAB 09:42
PROVIDERS: PCP Internal Medicine; Referring Provider Internal Medicine Cardiovascular Disease; Visit Provider Internal Medicine Cardiovascular Disease
DX: R79.1 Abnormal coagulation profile (principal); I50.31 Acute diastolic (congestive) heart failure; I48.91 Unspecified atrial fibrillation; Z79.01 Long term (current) use of 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
CPT/HCPCS: 36415; 85610

== ENCOUNTER → 2024-10-11 | Outpatient (CLI) | payer MEDICARE, SELFPAY ==
[2024-10-11 11:01] LABS: International Normalized Ratio 2.1; Prothrombin Time (Protime)PT. 23.6 SECONDS (11.7-14.9)
== END | disposition home or self-care (01) ==
LOC: LAB 08:58
PROVIDERS: PCP Internal Medicine; Visit Provider Internal Medicine Cardiovascular Disease
DX: I48.91 Unspecified atrial fibrillation (principal); I50.32 Chronic diastolic (congestive) heart failure; R79.1 Abnormal coagulation profile; Z79.01 Long term (current) use of 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
CPT/HCPCS: 36415; 85610

== ENCOUNTER → 2024-11-11 | Outpatient (CLI) | payer MEDICARE, SELFPAY ==
[2024-11-11 10:06] LABS: Prothrombin Time (Protime)PT. 39.6 SECONDS (11.7-14.9)
== END | disposition home or self-care (01) ==
LOC: LAB 09:03
PROVIDERS: PCP Internal Medicine; Visit Provider Internal Medicine Cardiovascular Disease
DX: I48.91 Unspecified atrial fibrillation (principal); I50.32 Chronic diastolic (congestive) heart failure; R79.1 Abnormal coagulation profile; Z79.01 Long term (current) use of 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
CPT/HCPCS: 36415; 85610

== ENCOUNTER → 2024-11-18 | Outpatient (CLI) | payer MEDICARE, SELFPAY ==
[2024-11-18 10:31] LABS: International Normalized Ratio 2.7
== END | disposition home or self-care (01) ==
LOC: LAB 09:09
PROVIDERS: PCP Internal Medicine; Visit Provider Internal Medicine Cardiovascular Disease
DX: I48.91 Unspecified atrial fibrillation (principal); I50.32 Chronic diastolic (congestive) heart failure; R79.1 Abnormal coagulation profile; Z79.01 Long term (current) use of 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
CPT/HCPCS: 36415; 85610

== ENCOUNTER → 2024-12-02 | Outpatient (CLI) | payer MEDICARE, SELFPAY ==
[2024-12-02 09:45] LABS: International Normalized Ratio 2.1; Prothrombin Time (Protime)PT. 24.3 SECONDS (11.7-14.9)
== END | disposition home or self-care (01) ==
LOC: LAB 08:25
PROVIDERS: PCP Internal Medicine; Visit Provider Internal Medicine Cardiovascular Disease
DX: I48.91 Unspecified atrial fibrillation (principal); I50.32 Chronic diastolic (congestive) heart failure; R79.1 Abnormal coagulation profile; Z79.01 Long term (current) use of 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
CPT/HCPCS: 36415; 85610

== ENCOUNTER 2024-12-08 13:20 | Emergency (ER) | payer MEDICARE, SELFPAY ==
[2024-12-08 13:21] VITALS: BP 134/69; PULSE 67; RESP 18; TEMP 36.6; O2SAT 97
[2024-12-08 13:32] VITALS: BMI 20.7
--- NOTE | 2024-12-08 13:42 | EX.ED.GENINJ ---
HPI History of Present Illness Chief Complaint: Head Injury Informant: patient Narrative Narrative: 84-year-old female on Coumadin for atrial fibrillation sustained a mechanical fall last night in which she struck her head on the mirror of a car. No reported loss of consciousness. She notes injury to the right forehead. She states that when she got home she had bruising in the right periorbital region and held her Coumadin for the night. When she woke up this morning she did not see a significant change but decided that she should be evaluated. She denies any neck or new back pain. No arm or leg symptoms. She denies double vision or blurry vision. She last checked her INR last week and wonders if she should continue holding her Coumadin today. [facility] Medical History Hyperlipidemia Chronic pain Pacemaker Urinary retention Decreased cardiac ejection fraction Anticoagulated on Coumadin Paroxysmal atrial fibrillation Fall Back pain Essential hypertension Former smoker On home oxygen therapy Presence of permanent cardiac pacemaker (~12/10/21) Sick sinus syndrome Polyp, sigmoid colon Persistent atrial fibrillation Atrial fibrillation LBBB (left bundle branch block) Hypertrophic obstructive cardiomyopathy (HOCM) Long QT interval Chronic diastolic heart failure COPD (chronic obstructive pulmonary disease) Nonrheumatic mitral (valve) insufficiency Non-Hodgkin lymphoma Bladder cancer Atrial flutter with rapid ventricular response Home Medications ?Medication ?Instructions ?Recorded ?Last Taken ?Type magnesium oxide 400 mg PO DAILY supplement 04/06/19 06/26/23 History gabapentin 100 mg capsule 300 mg PO BID NERVE PAIN 10/04/22 06/25/23 History acetaminophen 500 mg tablet 1,000 mg (2 x 500 mg) PO Q8 #0 tabs 01/26/23 06/26/23 Rx furosemide 40 mg tablet 40 mg PO DAILY #90 tabs 05/18/23 06/26/23 Rx buprenorphine 5 mcg/hour weekly 1 patch topical Q7D PAIN 06/26/23 06/24/23 History transdermal patch metoprolol succinate 100 mg 100 mg PO DAILY Blood pressure #90 09/04/23 Unknown Rx tablet,extended release 24 hr tabs warfarin 3 mg tablet 3 mg PO .COMPLEX #90 tabs 10/07/23 Unknown Rx lisinopril 20 mg tablet 20 mg PO BID #180 tabs 12/30/23 Unknown Rx Allergy/AdvReac Type Severity Reaction Status Date / Time allopurinol AdvReac Mild upset gi Verified 12/08/24 13:21 tramadol AdvReac dizzy Verified 12/08/24 13:21 Family History Father Heart disease Hypertension Mother No cardiac disease Surgical History H/O cardiac radiofrequency ablation History of mitral valve repair (~07/30/18) History of ventricular septal myectomy (~07/30/18) History of left heart catheterization (LHC) (~11/30/17) History of bladder surgery History of cardioversion (~04/25/20) Social History household members: none Smoking Status: Former smoker pack-years: 58 how long ago did patient quit smokin years ago alcohol intake: never substance use type: does not use caffeine: No what type of physical activity do you participate in: walking ROS ROS ED Constitutional Constitutional ED: Denies chills, fever(s) or weight loss Eyes Eyes: Denies change in vision or diplopia ENT ENT ED: Denies ear pain, rhinorrhea or sore throat Cardiovascular Cardiovascular: Denies chest pain, orthopnea, palpitations or racing heartbeat Respiratory/Chest Respiratory/Chest: Denies cough, dyspnea or orthopnea Gastrointestinal Gastrointestinal: Denies abdominal pain, diarrhea, nausea or vomiting Genitourinary Genitourinary ED: Denies dysuria, hematuria or urinary frequency Musculoskeletal Musculoskeletal: Denies arthralgias or myalgias Integumentary Reports other Details: Periorbital contusion forehead abrasion ; Denies abscess or rash Neurologic Neurologic: Denies headache(s) or weakness Psychiatric Psychiatric: Denies anxiety, depression, suicidal ideation or suicidal thoughts Endocrine Endocrinology: Denies polydipsia, polyphagia or polyuria Allergic/Immunologic Allergic/Immunologic ED: Denies mouth swelling, tongue swelling or urticaria EXAM Physical Exam Const Vital Signs: 12/08/24 13:21 12/08/24 14:20 Temperature 97.9 F Temperature Source Temporal Pulse Rate 67 Respiratory Rate 18 Respiratory Effort Normal Non-Labored Respiratory Depth Normal Respiratory Pattern Normal Blood Pressure 134/69 H Blood Pressure Mean 90 Pulse Ox 97 Oxygen Delivery Method Room Air Room Air Positive well nourished and well developed General Appearance ED: well developed HEENT Reports normocephalic and moist mucous membranes HEENT Narrative: There is an abrasion to the right mid forehead. She is still able to wrinkle her eyebrows. There is right purple periorbital ecchymosis noted. There is no pain with ocular movement. There is no hyphema. No subconjunctival hemorrhage. There is no palpable bony depression or tenderness. No malocclusion noted obvious dental trauma. No septal hematoma. No nasal swelling. No zygomatic arch tenderness. No hemotympanums or Castellon sign. Left periorbital region appears without findings. Eyes PERRL and EOMs intact bilaterally Neck full ROM, no lymphadenopathy, supple and no JVD Resp normal respiratory effort and clear to auscultation bilaterally Cardio regular rate, regular rhythm and no murmurs GI normal to inspection, nondistended, normoactive bowel sounds and non-tender Palpation: soft Back/Spine no CVA tenderness and normal ROM Extremity normal to inspection General Extremety ED: Negative for edema General Extremity: Negative for edema Neuro oriented x3 and CN's II-XII intact bilaterally Sensorium / Orientation: alert Motor Exam: strength 5/5 throughout Psych mental status grossly normal Mood & Affect: Negative for depressed or tearful Skin no rashes or lesions noted and no wounds MDM MDM MDM Narrative Medical decision making narrative: Differential diagnosis includes but not limited to skull fracture orbital fracture facial fracture intracranial hemorrhage supratherapeutic/subtherapeutic INR INR was obtained and was 1.7. CT of the brain was obtained. This was read by radiology and reviewed by myself. No obvious intracranial hemorrhage is noted or fracture. Clinically I believe the patient can be discharged home with supportive care. She can resume her Coumadin dosing. Would recommend follow-up or return if worsening or concerns. History & Record Review Discussion w/independent historian: Patient Lab Data Attestation: I reviewed the patient's lab results. Labs: Laboratory Results - last 24 hr 12/08/24 14:05 PT 20.7 H INR 1.7 Radiography Diagnostic Testing: Clinical Impression(s) from Imaging Studies Brain CT 12/08/24 14:10 IMPRESSION: 1. Generalized brain atrophy. 2. Small vessel ischemic/degenerative changes. 3. No acute intracranial hemorrhage, midline shift or mass effect. If symptoms persist, further evaluation with MRI is recommended. Reading Location: [facility] Discharge Plan Triage Chief Complaint: Head Injury ED Provider: Pato Danielson Dx/Rx/DC Orders Clinical Impression: Fall, Forehead contusion, Periorbital hematoma of right eye, Subtherapeutic international normalized ratio (INR) Instructions: ED Facial Contusion, ED Head Injury (Adult) Prescriptions: No Action magnesium oxide 400 mg magnesium tablet 400 mg PO DAILY gabapentin 100 mg capsule 300 mg PO BID acetaminophen 500 mg Tablet 1,000 mg PO Q8 Qty: 0 0RF buprenorphine 5 mcg/hour patch weekly 1 patch topical Q7D Patient Comments: Apply 1 (ONE) patch transdermally EVERY WEEK FOR 28 DAYS furosemide 40 mg tablet 40 mg PO DAILY Qty: 90 3RF metoprolol succinate 100 mg tablet extended release 24 hr 100 mg PO DAILY Qty: 90 3RF warfarin 3 mg tablet 3 mg PO .COMPLEX Qty: 90 3RF Protocol: Dose Management Condition: Thursday Dose/Route: 1.5 mg Instruction: 0.5 x 3 mg tablets Condition: Thursday Dose/Route: 1.5 mg Instruction: 0.5 x 3 mg tablets Condition: Thursday Dose/Route: 1.5 mg Instruction: 0.5 x 3 mg tablets Condition: Thursday Dose/Route: 3 mg Instruction: 1 x 3 mg tablet Condition: Dose/Route: 1.5 mg Instruction: 0.5 x 3 mg tablets Condition: Thursday Dose/Route: 1.5 mg Instruction: 0.5 x 3 mg tablets Condition: Thursday Dose/Route: 1.5 mg Instruction: 0.5 x 3 mg tablets Protocol Text: Adjustment Start Date: Thursday12/02/24 INR Value: 2.1 INR Date: 12/02/24 Recheck Date: 12/16/24 Rx Instructions: 3 mg orally take 1/2 tablet (1.5mg) Thursday through Thursday; and take a whole tablet (3mg) on Thu and Thursday, OR DIRECTED; Please give extra pills for dose changes. lisinopril 20 mg tablet 20 mg PO BID Qty: 180 3RF Primary Care Provider: Cheyanne Holt Referrals: Cheyanne Holt MD [Primary Care Provider] - As Needed Activity Restrictions/Additional Instructions: I do believe that it is reasonable to go ahead and restart your Coumadin tonight. Your INR today was 1.7. Please monitor for any changes or worsening or continued symptoms that are not improving. Please let your family doctor know or return to the emergency department if needed. Print Language: Sinhala Disposition Disposition: Home, Self Care
--- NOTE | 2024-12-08 14:10 | CT_ITS ---
EXAM: CT Head Without Intravenous Contrast CLINICAL INDICATION: TECHNIQUE: Axial computed tomography images of the head/brain without intravenous contrast. This CT exam was performed using one or more of the following dose reduction techniques: automated exposure control, adjustment of the mA and/or kV according to patient size, and/or use of iterative reconstruction technique. COMPARISON: No relevant prior studies available. FINDINGS: BRAIN AND EXTRA-AXIAL SPACES: The cerebral and cerebellar sulci are prominent consistent with brain atrophy. Areas of decreased attenuation in the deep cerebral white matter are consistent with small vessel ischemic/degenerative changes. No acute intracranial hemorrhage, midline shift or mass effect. If symptoms persist, further evaluation with MRI is recommended. BONES/JOINTS: Unremarkable. No acute fracture. SOFT TISSUES: Unremarkable. SINUSES: Unremarkable as visualized. No acute sinusitis. MASTOID AIR CELLS: Unremarkable as visualized. No mastoid effusion. CT/Brain/Head without Contrast IMPRESSION: 1. Generalized brain atrophy. 2. Small vessel ischemic/degenerative changes. 3. No acute intracranial hemorrhage, midline shift or mass effect. If symptoms persist, further evaluation with MRI is recommended. Reading Location: [facility]
[2024-12-08 14:22] LABS: International Normalized Ratio 1.7; Prothrombin Time (Protime)PT. 20.7 SECONDS (11.7-14.9)
[2024-12-08 15:09] VITALS: BP 130/80; PULSE 71; RESP 18; TEMP 36.6; O2SAT 97
== END 2024-12-08 15:10 | disposition home or self-care (01) ==
LOC: ED 14:31
PROVIDERS: Emergency Provider Emergency Medicine; PCP Internal Medicine; Visit Provider Emergency Medicine
DX: S05.11XA Contusion of eyeball and orbital tissues, right eye, initial encounter (principal); I11.0 Hypertensive heart disease with heart failure; I50.32 Chronic diastolic (congestive) heart failure; J44.9 Chronic obstructive pulmonary disease, unspecified; I48.91 Unspecified atrial fibrillation; I42.1 Obstructive hypertrophic cardiomyopathy; W01.198A Fall on same level from slipping, tripping and stumbling with subsequent striking against other object, initial encounter; Z79.01 Long term (current) use of 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; Z79.899 Other long term (current) drug therapy; Z87.891 Personal history of nicotine dependence
CPT/HCPCS: 36415; 70450; 85610; 99282

== ENCOUNTER → 2024-12-16 | Outpatient (CLI) | payer MEDICARE, SELFPAY ==
[2024-12-16 10:07] LABS: Prothrombin Time (Protime)PT. 22.7 SECONDS (11.7-14.9)
== END | disposition home or self-care (01) ==
LOC: LAB 09:14
PROVIDERS: PCP Internal Medicine; Visit Provider Internal Medicine Cardiovascular Disease
DX: I48.91 Unspecified atrial fibrillation (principal); I50.32 Chronic diastolic (congestive) heart failure; R79.1 Abnormal coagulation profile; Z79.01 Long term (current) use of 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
CPT/HCPCS: 36415; 85610

== ENCOUNTER 2024-12-26 11:00 | Outpatient (RCR) | payer MEDICARE, SELFPAY ==
--- NOTE | 2024-12-07 14:27 | HP.PTEVAL_ITS ---
Patient's Visit Information Visit Information Visit Information: MICHELLE JIMENEZ is a 84 year old F referred to Physical Therapy by Dr. Hari Rodríguez MD with a diagnosis of LBP, R LE weakness. Date of Evaluation: 12/07/24 Physical Therapist: Shankar Negrete, PT, ATC Visit Plan Frequency: 2x /Week Duration: 4-6 Weeks Plan: R LE strengthening, balance and proprio, core stab ex's, gait training, HEP and nustep Subjective Subjective: Pt has had intermittent LBP for 3 years. Pt reports she fell coming out of a store and fractured her R hip approximately one year ago. Pt notes the fracture healed, but she has remained weak in her R LE. Pt notes she walked with a cane prior to her fall. Pt reports after her fall, she has walked with a walker ever since. However, pt notes she has to use a wheelchair for long distance, and also notes that she feels like she has really poor balance. Pt denies any altered sensation in her feet. Pt notes she only has pain in her LB today, which does radiate into her R LE to the knee region. Pt reports occasional sleep difficulty at this time secondary to pain. 0/10 LBP while sitting here at rest. 8/10 LBP anytime she stands up and ambulates. Pain LBP: Pain Intensity (Out of 10): 0 Pain Intensity Range: 8 Objective Objective: Neuro: B LE sensation is WNL to light touch. TU sec ROM: R LE is limited throughout secondary to weakness. L LE is WFL MMT: R LE is grossly 4-/5 throughout. L LE is grossly 5/5 throughout. Balance/Special Test Scores Oswestry Low Back Score: 26 Goals Goal 1:: Pt will perform the TUG test in under 20 seconds Goal Time Frame: 4-6 Weeks Goal 2:: Increase R LE strength x 1 grade to aid with ambulatory tolerance Goal Time Frame: 4-6 Weeks Goal 3:: Decrease LBP x 25-50% to aid with sleep Goal Time Frame: 4-6 Weeks Goal 4:: I with HEP Goal Time Frame: 4-6 Weeks Rehabilitation Potential Physical Therapy Diagnosis: Pt has LBP, R LE weakness, and difficulty with ambulation secondary to debilitation Rehabilitation Potential: Good Anticipated Interventions Patient/Client Instruction: Educate patient on: Condition and Plan of Care For the Purpose of:: To improve self management Therapeutic Exercise to Include: Strength training, Endurance training, Balance training, Gait and locomotor training and Dynamic Lumbar Stabilization For the Purpose of:: To decrease pain, To increase ROM, To improve muscle performance and motor function and To increase tolerance to activity/condition/position Text: Thank you for the opportunity to evaluate your patient. For Medicare and Medicare HMO plans, please review the plan of care and approve it. It will need to be FAXED BACK to us at [phone] for Medicare purposes. For Medicare only, by signing this I certify the plan of care. Please let me know if there are questions or concerns regarding this plan of care. Physician Signature: Date:
--- NOTE | 2025-05-08 14:29 | HP.PT.NRP ---
Patient Information Patient Information: MICHELLE JIMENEZ was seen in my office for initial evaluation on 12/07/24. The following Plan of Care was established for this patient: POC Established Initial Frequency: 2x /Week Initial Duration: 4-6 Weeks Anticipated Interventions Patient/Client Instruction: Educate patient on: Condition and Plan of Care For the Purpose of:: To improve self management Therapeutic Exercise to Include: Strength training, Endurance training, Balance training, Gait and locomotor training and Dynamic Lumbar Stabilization For the Purpose of:: To decrease pain, To increase ROM, To improve muscle performance and motor function and To increase tolerance to activity/condition/position Last Seen Last Seen: This patient was last seen in our office . Pertinent comments regarding their Physical therapy will appear below: Pt has not returned for greater than 30 days and is discontinued at this time. At this point I will be discontinuing this patient from physical therapy. I would be happy to see this patient again in the future if found appropriate by the physician. Thank you! Shankar Negrete, PT, ATC Balance/Gait/Functional tests Balance/Special Test Scores Oswestry Low Back Score: 26
== END 2024-12-26 19:00 | disposition home or self-care (01) ==
LOC: PT 11:00
PROVIDERS: PCP Internal Medicine; Referring Provider Anesthesiology Pain Medicine; Visit Provider Anesthesiology Pain Medicine
DX: M54.9 Dorsalgia, unspecified (principal); R26.89 Other abnormalities of gait and mobility
CPT/HCPCS: 97110; 97161

== ENCOUNTER → 2024-12-30 | Outpatient (CLI) | payer MEDICARE, SELFPAY ==
[2024-12-30 10:16] LABS: International Normalized Ratio 2.9; Prothrombin Time (Protime)PT. 30.9 SECONDS (11.7-14.9)
[2024-12-30 10:58] LABS: AST(SGOT) 22 U/L (<=31); Alanine Aminotransfer ALT/SGPT 6 U/L (<=34); Albumin, Serum 4.1 g/dL (3.4-4.8); Alkaline Phosphatase 85 U/L (35-104); Bilirubin, Direct 0.21 mg/dL (0.00-0.30); Cholesterol 163 mg/dL (<=200); Globulin 2.8 g/dL (2.2-4.2); High Density Lipoprotein 48 mg/dL; Low Density Lipoprotein Calc. 87 mg/dL; Protein, Total 6.9 g/dL (5.9-8.4); Total Bilirubin 0.45 mg/dL (0.00-1.30); Triglycerides 141 mg/dL; Very Low Density Lipoprotein 28 mg/dL (5-40); cholesterol:hdl ratio screen 3.42
== END | disposition home or self-care (01) ==
LOC: LAB 08:28
PROVIDERS: Physician Assistant Medical; PCP Internal Medicine; Visit Provider Internal Medicine Cardiovascular Disease
DX: E78.00 Pure hypercholesterolemia, unspecified (principal); I11.0 Hypertensive heart disease with heart failure; I50.32 Chronic diastolic (congestive) heart failure; I48.91 Unspecified atrial fibrillation; R79.1 Abnormal coagulation profile; Z79.01 Long term (current) use of 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
CPT/HCPCS: 36415; 80061; 80076; 85610

== ENCOUNTER 2024-12-31 10:38 | Emergency (ER) | payer MEDICARE, SELFPAY ==
[2024-12-31] VITALS (7 sets, daily range): BP systolic 126–138; BP diastolic 71–78; PULSE 59–77; RESP 14–18; TEMP 36.6; O2SAT 90–98; BMI 21.3
--- NOTE | 2024-12-31 11:18 | RAD_ITS ---
PROCEDURE: CHEST PA AND LATERAL REASON FOR EXAM: Shortness of breath TECHNIQUE: Frontal and lateral views of the chest. COMPARISON: 06/26/2023. FINDINGS: Left chest pacemaker. Mitral valve replacement. Left atrial appendage clip Heart size is mildly enlarged. The mediastinal contour is unremarkable. Pulmonary artery is prominent. The lungs are clear. The bones are unremarkable. RAD/Chest PA and Lateral IMPRESSION: 1. Cardiomegaly 2. Pulmonary artery prominence which can be seen with pulmonary artery hyperte nsion Reading Location: [facility]
--- NOTE | 2024-12-31 11:18 | EKG12_ITS ---
Test Reason : SOB Blood Pressure : */* mmHG Vent. Rate : 60 BPM Atrial Rate : 312 BPM P-R Int : * ms QRS Dur : 158 ms QT Int : 588 ms P-R-T Axes : * -72 98 degrees QTcB Int : 588 ms Ventricular-paced rhythm /atrial flutter ventricular paced Abnormal ECG Confirmed by Rafael Simon ([id number]), society editor JAN GANN ([id number]) on 01/02/2025 7:02:35 AM Referred By: TB/LUIS Confirmed By: Rafael Simon
--- NOTE | 2024-12-31 11:30 | EX.ED.DYSGE1 ---
HPI History of Present Illness Chief Complaint: Shortness of Breath Informant: patient and family Narrative Narrative: Patient is a 84-year-old female presenting with son for worsening shortness of breath. Initially went to [facility] urgent care where she had a negative flu test and chest x-ray but since her oxygen was low (patient states 88-89) she was instructed to come to the emergency room. 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 Patient states that she wears 2 L of oxygen at night when she sleeps but does not wear oxygen during the day normally. She states started on , 2 days ago, she developed a sore throat and a cough. Her cough is been productive of yellow sputum. She states her voice has been deeper than normal. She had a fever today of 102 ?F. Son notes that her right hand seems swollen today and she has some chronic swelling of her right lower extremity. Patient denies any falls or injuries. She is feeling short of breath. Denies any chest pain. Denies any change in her bowels or vomiting. Denies any lightheadedness or headaches. Is complaining of continued sore throat as well as some ear congestion. No other complaints or concerns reported at this time. [facility] Medical History Hyperlipidemia Chronic pain Pacemaker Urinary retention Decreased cardiac ejection fraction Anticoagulated on Coumadin Paroxysmal atrial fibrillation Fall Back pain Essential hypertension Former smoker On home oxygen therapy Presence of permanent cardiac pacemaker (~12/10/21) Sick sinus syndrome Polyp, sigmoid colon Persistent atrial fibrillation Atrial fibrillation LBBB (left bundle branch block) Hypertrophic obstructive cardiomyopathy (HOCM) Long QT interval Chronic diastolic heart failure COPD (chronic obstructive pulmonary disease) Nonrheumatic mitral (valve) insufficiency Non-Hodgkin lymphoma Bladder cancer Atrial flutter with rapid ventricular response Home Medications ?Medication ?Instructions ?Recorded ?Last Taken ?Type magnesium oxide 400 mg PO DAILY supplement 04/06/19 06/26/23 History gabapentin 100 mg capsule 300 mg PO BID NERVE PAIN 10/04/22 06/25/23 History acetaminophen 500 mg tablet 1,000 mg (2 x 500 mg) PO Q8 #0 tabs 01/26/23 06/26/23 Rx furosemide 40 mg tablet 40 mg PO DAILY #90 tabs 05/18/23 06/26/23 Rx buprenorphine 5 mcg/hour weekly 1 patch topical Q7D PAIN 06/26/23 06/24/23 History transdermal patch metoprolol succinate 100 mg 100 mg PO DAILY Blood pressure #90 09/04/23 Unknown Rx tablet,extended release 24 hr tabs warfarin 3 mg tablet 3 mg PO .COMPLEX #90 tabs 10/07/23 Unknown Rx lisinopril 20 mg tablet 20 mg PO BID #180 tabs 12/30/23 Unknown Rx prednisone 20 mg tablet 40 mg (2 x 20 mg) PO DAILY #8 tabs 12/31/24 Unknown Rx Allergy/AdvReac Type Severity Reaction Status Date / Time allopurinol AdvReac Mild upset gi Verified 12/31/24 10:38 tramadol AdvReac dizzy Verified 12/31/24 10:38 Family History Father Heart disease Hypertension Mother No cardiac disease Surgical History H/O cardiac radiofrequency ablation History of mitral valve repair (~07/30/18) History of ventricular septal myectomy (~07/30/18) History of left heart catheterization (LHC) (~11/30/17) History of bladder surgery History of cardioversion (~04/25/20) Social History household members: none Smoking Status: Former smoker pack-years: 58 how long ago did patient quit smokin years ago alcohol intake: never substance use type: does not use caffeine: No what type of physical activity do you participate in: walking ROS ROS ED Constitutional Constitutional ED: Reports chills and fever(s) ENT ENT ED: Reports ear pain bilateral and sore throat Cardiovascular Cardiovascular: Denies chest pain Respiratory/Chest Respiratory/Chest: Reports cough, dyspnea and sputum Gastrointestinal Gastrointestinal: Denies abdominal pain, diarrhea, nausea or vomiting Musculoskeletal Musculoskeletal: Reports other Details: swelling of right extremities ; Denies arthralgias or myalgias Integumentary Denies rash Neurologic Neurologic: Denies headache(s), paresthesias or weakness Hematologic/Lymphatic Hematologic/Lymphatic: Reports easy bleeding, easy bruising and other Details: ON Coumadin EXAM Physical Exam Const Vital Signs: 12/31/24 10:38 12/31/24 10:38 12/31/24 10:41 Temperature 98 F Temperature Source Temporal Pulse Rate 59 L Respiratory Rate 14 Respiratory Effort Blood Pressure 126/71 H Blood Pressure Mean 89 Pulse Ox 91 90 92 Oxygen Delivery Method Room Air Room Air Room Air Oxygen Flow Rate (L/min) 12/31/24 11:18 12/31/24 11:32 12/31/24 11:32 Temperature Temperature Source Pulse Rate 60 Respiratory Rate 16 Respiratory Effort Blood Pressure Blood Pressure Mean Pulse Ox 96 Oxygen Delivery Method Room Air Nasal Cannula Oxygen Flow Rate (L/min) 2 12/31/24 11:39 12/31/24 12:38 Temperature Temperature Source Pulse Rate 77 Respiratory Rate 18 Respiratory Effort Short of Breath Blood Pressure 138/78 H Blood Pressure Mean 98 Pulse Ox 93 Oxygen Delivery Method Nasal Cannula Room Air Oxygen Flow Rate (L/min) 2 Positive well nourished and well developed General Appearance ED: well developed and NAD HEENT Reports TM's clear and moist mucous membranes HEENT Narrative: Normal nares Tympanic Membrane ED: Yes TM's clear Eyes PERRL Neck Neck Narrative: mild JVD present Chest Wall inspection of chest normal and palpation of chest normal Resp Resp Narrative: Mild tachypnea. Breath sounds throughout but more diminished at the left base. Scattered and expiratory wheezes present of the left upper lung and the right anterior lung. Cardio regular rate, regular rhythm and no murmurs GI normal to inspection, nondistended, normoactive bowel sounds and non-tender Extremity Extremity Narrative: Mild nonpitting edema of the right lower extremity and very subtle edema of the right hand Neuro oriented x3 Sensorium / Orientation: alert Motor Exam: general weakness Psych mental status grossly normal Skin no rashes or lesions noted and no wounds MDM MDM MDM Narrative Medical decision making narrative: Patient presents with low oxygen at urgent care, fever and recent respiratory/viral symptoms. She appears nontoxic no acute distress. Patient does desat to 84% on room air and placed on 2 L of oxygen. She is given DuoNeb in the emergency room. Differential includes COPD exacerbation, viral illness, pneumonia and less likely ACS or pleural effusion. Clinically patient is not appear fluid overloaded low suspicion for CHF exacerbation. Patient is given a DuoNeb with some improvement in the emergency room. She clinically appears nontoxic. CBC, INR (to check levels and she is on Coumadin) BMP, BNP and high sensitive troponin obtained. High sensitive troponin mildly elevated at 22 but EKG does not show any acute ischemic changes (is paced) and do not think this is a primary ACS issue. NT pro BNP is elevated at 4709 however I suspect this is chronic (do not have a comparison as this is a new test for hospital). Her chest x-ray viewed by myself as well as radiology does not show any acute infiltrate but does have findings consistent with cardiomegaly and likely pulmonary arterial hypertension. Suspect this is what is causing her elevated BNP. Patient does have positive for RSV. I suspect this is the cause of her acute presentation. She does desat on room air but does fine on 2 L. Patient is offered admission but declined states she can just wear her home oxygen [id number] for the next few days until she is feeling better. Is given a very low threshold to return to the emergency room as with RSV there is a chance that she could worsen before she gets better/decompensate. Patient is adamant that she would like to go home. Discussed using inhaler every 4-6 hours for breathing and taking prednisone. Given first dose in the emergency room. Discussed that if she has to go up past 2 L, is feeling worse with her breathing or her oxygen is going below 90% on 2 L she should return to the emergency room. Patient and son understand this. I did discuss with patient that I feel that she would be better suited coming into the hospital but she is insistent that she would like to go home. Encouraged to follow-up closely outpatient with her primary care doctor as well. Lab Data Attestation: I reviewed the patient's lab results. Labs: Laboratory Results - last 24 hr 12/31/24 11:01 WBC 7.9 RBC 5.07 Hgb 13.5 Hct 42.9 MCV 84.6 MCH 26.6 L MCHC 31.5 L RDW Std Deviation 47.3 H RDW Coeff of Neelima 15.5 H Plt Count 215 MPV 10.1 Immature Gran % (Auto) 0.500 Neut % (Auto) 82.4 H Lymph % (Auto) 9.8 L [place] % (Auto) 6.5 Eos % (Auto) 0.3 Baso % (Auto) 0.5 Absolute Neuts (auto) 6.5 Absolute Lymphs (auto) 0.77 L Nucleated RBC % 0 PT 36.9 H INR 3.6 Sodium 135 Potassium 4.8 Chloride Direct 99 Carbon Dioxide 18.5 L Anion Gap 17 H BUN 15 Creatinine 0.77 Est GFR (MDRD) Non-Af 76 BUN/Creatinine Ratio 19.2 Glucose 106 H Calcium 8.8 Troponin T High Sens 22 H NT pro BNP II 4709 H Radiography Chest X-Ray - ED: 2 View, Read by ED Physician, Read by Radiologist and No Acute Disease Diagnostic Testing: Clinical Impression(s) from Imaging Studies Chest X-Ray 12/31/24 11:18 IMPRESSION: 1. Cardiomegaly 2. Pulmonary artery prominence which can be seen with pulmonary artery hypertension Reading Location: [facility] Rhythm Strip Rhythm Strip: paced Rate: 60 Ectopy: None EKG Initial EKG: Attestation: I personally reviewed and interpreted this EKG as follows: Comments: Ventricular paced rhythm at a rate of 60 bpm with underlying atrial flutter Normal ST segments Prior EKG tracings: available for review Prior: Unchanged Discharge Plan Triage Chief Complaint: Shortness of Breath ED Provider: Anna Adams Dx/Rx/DC Orders Clinical Impression: RSV bronchitis, Hypoxia Instructions: Acute Bronchitis, RSV (Respiratory Syncytial Virus) Prescriptions: New prednisone 20 mg tablet 40 mg PO DAILY Qty: 8 0RF No Action magnesium oxide 400 mg magnesium tablet 400 mg PO DAILY gabapentin 100 mg capsule 300 mg PO BID acetaminophen 500 mg Tablet 1,000 mg PO Q8 Qty: 0 0RF buprenorphine 5 mcg/hour patch weekly 1 patch topical Q7D Patient Comments: Apply 1 (ONE) patch transdermally EVERY WEEK FOR 28 DAYS furosemide 40 mg tablet 40 mg PO DAILY Qty: 90 3RF metoprolol succinate 100 mg tablet extended release 24 hr 100 mg PO DAILY Qty: 90 3RF warfarin 3 mg tablet 3 mg PO .COMPLEX Qty: 90 3RF Protocol: Dose Management Condition: Thursday Dose/Route: 1.5 mg Instruction: 0.5 x 3 mg tablets Condition: Thursday Dose/Route: 1.5 mg Instruction: 0.5 x 3 mg tablets Condition: Thursday Dose/Route: 1.5 mg Instruction: 0.5 x 3 mg tablets Condition: Thursday Dose/Route: 3 mg Instruction: 1 x 3 mg tablet Condition: Dose/Route: 1.5 mg Instruction: 0.5 x 3 mg tablets Condition: Thursday Dose/Route: 1.5 mg Instruction: 0.5 x 3 mg tablets Condition: Thursday Dose/Route: 1.5 mg Instruction: 0.5 x 3 mg tablets Protocol Text: Adjustment Start Date: Thursday12/30/24 INR Value: 2.9 INR Date: 12/30/24 Recheck Date: 01/29/25 Rx Instructions: 3 mg orally take 1/2 tablet (1.5mg) Thursday through Thursday; and take a whole tablet (3mg) on Thu and Thursday, OR DIRECTED; Please give extra pills for dose changes. lisinopril 20 mg tablet 20 mg PO BID Qty: 180 3RF Primary Care Provider: Cheyanne Holt Referrals: Cheyanne Holt MD [Primary Care Provider] - Activity Restrictions/Additional Instructions: Your INR was slightly elevated today at 3.6. Please follow-up with your Coumadin clinic for further direction on this. You did test positive for RSV today which is likely causing your symptoms. Continue take Tylenol. As we discussed you are needing some supplemental oxygen at this time. You will go up to 2 L of oxygen at home. If your oxygen is dropping below 90% on these 2 L are you having to roller turner for the past 2 L please return to the emergency room. There is a chance your respiratory symptoms could worsen over the next few days. Please take the steroids as prescribed with your next dose tomorrow morning. In addition you been given an inhaler to use (albuterol). Take 1 to 2 puffs every 4-6 hours as needed for cough, shortness of breath, tightness or wheezing. Please have a low threshold to return the emergency room if you feel like you are worsening. Print Language: Irish Disposition Disposition: Home, Self Care
[2024-12-31 11:32] LABS: Absolute Lymphocyte Count 0.77 X10^3/uL (0.83-4.51); Absolute Neutrophil Count 6.5 X10^3/uL (2.0-7.7); Basophil# 0.04 X10^3/uL; Basophil% 0.5 % (0-1); Eosinophil# 0.02 X10^3/uL; Eosinophils% 0.3 % (0-5); Hematocrit 42.9 % (37-47); Hemoglobin 13.5 g/dL (12.0-15.0); Lymphocyte # 0.77 X10^3/ul (0.83-4.51); Lymphocyte % 9.8 % (19-41); Mean Corp Hgb Conc 31.5 g/dL (32-36); Mean Corpuscular Hgb 26.6 pg (27.0-32.0); Mean Corpuscular Volume 84.6 fL (81-99); Mean Platelet Vol. 10.1 fl (6.2-12.0); Monocyte# 0.51 X10^3/uL; Monocyte% 6.5 % (0-10); NRBC Flagged by Analyzer 0 % (0-5); Neutrophil # 6.51 X10^3/uL (2.7-7.7); Neutrophil % 82.4 % (47-70); Platelet Count 215 K/mm3 (150-450); RBC Distribution Width CV 15.5 % (11.6-14.6); RBC Distribution Width SD 47.3 fl (35.1-43.9); Red Blood Count 5.07 M/mm3 (4.2-5.4); White Blood Count 7.9 K/mm3 (4.4-11.0)
[2024-12-31] MEDS: Ipratropium/Albuterol Sulfate 3 ML AMPUL.NEB INHALATION (11:32)
[2024-12-31 11:40] LABS: International Normalized Ratio 3.6; Prothrombin Time (Protime)PT. 36.9 SECONDS (11.7-14.9)
[2024-12-31 11:52] LABS: Pro- Brain NATRIURETIC PEPTIDE 4709 pg/mL (<=1800); Troponin T High Sensitivity 22 ng/L (<=14)
[2024-12-31 12:18] LABS: Anion Gap 17 (5-15); BUN 15 mg/dL (4-19); BUN/Creat Ratio 19.2 RATIO (10-20); Calcium 8.8 mg/dL (7.6-11.0); Carbon Dioxide 18.5 mmol/L (22.0-29.0); Chloride 99 mmol/L (96-108); Creatinine, Serum 0.77 mg/dL (0.70-1.20); EST Glomerular Filtration Rate 76 (>60); Glucose 106 mg/dL (70-99); Potassium 4.8 mmol/L (3.3-5.1); Sodium Level 135 mmol/L (133-145)
[2024-12-31] MEDS: Albuterol Sulfate 8 gm Inhaler (60 puffs) 2 PUFF INHALATION (14:09)
[2024-12-31] MEDS: predniSONE 20 MG Tablet 60 MG PO (14:10)
--- NOTE | 2024-12-31 14:25 | ED.RN ---
patient and son educated on inhaler and patient requiring oxygen. Dr. Adams at bedside also, explained. family and patient in understanding
== END 2024-12-31 14:31 | disposition home or self-care (01) ==
PROVIDERS: Emergency Provider Emergency Medicine; PCP Internal Medicine; Visit Provider Emergency Medicine
DX: J20.5 Acute bronchitis due to respiratory syncytial virus (principal); I11.0 Hypertensive heart disease with heart failure; I50.32 Chronic diastolic (congestive) heart failure; J44.9 Chronic obstructive pulmonary disease, unspecified; I48.91 Unspecified atrial fibrillation; I49.5 Sick sinus syndrome; I42.1 Obstructive hypertrophic cardiomyopathy; R09.02 Hypoxemia; Z79.01 Long term (current) use of 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; Z79.899 Other long term (current) drug therapy; Z87.891 Personal history of nicotine dependence; Z95.0 Presence of cardiac pacemaker
CPT/HCPCS: 71046; 80048; 83880; 84484; 85025; 85610; 87631; 93005; 94640; 99283; A4216

== ENCOUNTER → 2025-01-03 | Outpatient (CLI) | payer MEDICARE, SELFPAY ==
[2025-01-03 10:33] LABS: International Normalized Ratio 2.7; Prothrombin Time (Protime)PT. 29.3 SECONDS (11.7-14.9)
== END | disposition home or self-care (01) ==
LOC: LAB 09:40
PROVIDERS: PCP Internal Medicine; Visit Provider Internal Medicine Cardiovascular Disease
DX: I48.91 Unspecified atrial fibrillation (principal); I50.32 Chronic diastolic (congestive) heart failure; R79.1 Abnormal coagulation profile; Z79.01 Long term (current) use of 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
CPT/HCPCS: 36415; 85610

== ENCOUNTER 2025-01-07 11:45 | Inpatient (IN) | payer MEDICARE, SELFPAY ==
[2025-01-07] VITALS (9 sets, daily range): BP systolic 144–188; BP diastolic 68–92; PULSE 59–64; RESP 16–20; TEMP 36.2–37.4; O2SAT 87–95; BMI 21.3
--- NOTE | 2025-01-07 11:54 | RAD_ITS ---
PROCEDURE: CHEST PA AND LATERAL REASON FOR EXAM: 84-year-old female, cough. TECHNIQUE: Frontal and lateral views of the chest. COMPARISON: Chest radiograph 12/31/2024. FINDINGS: Prior median sternotomy with stable left chest pacemaker, mitral valve replacement and left atrial appendage clip. Stable mild cardiomegaly and prominent pulmonary vasculature. The mediastinal contour is stable. Stable emphysema. Trace left pleural effusion. No focal consolidation or pneumothorax. Degenerative changes are identified within the thoracic spine. RAD/Chest PA and Lateral IMPRESSION: 1. Findings of CHF/volume overload including trace left pleural effusion. 2. Stable emphysema. Reading Location: [id number]
--- NOTE | 2025-01-07 12:07 | EKG12_ITS ---
Test Reason : DYSP Blood Pressure : */* mmHG Vent. Rate : 60 BPM Atrial Rate : 344 BPM P-R Int : * ms QRS Dur : 162 ms QT Int : 542 ms P-R-T Axes : * -73 111 degrees QTcB Int : 542 ms Ventricular-paced rhythm Abnormal ECG PROBABLE AFLUTTER WITH PACED RHYTHM Confirmed by Rafael Simon ([id number]), general expeditor JAN GANN ([id number]) on 01/09/2025 10:55:18 AM Referred By: Ivan Elkins Confirmed By: Rafael Simon
--- NOTE | 2025-01-07 12:07 | EDS_ITS ---
<Statement entered by Wilson Miguel DO - 01/07/25 15:56> Patient was seen and examined with physician care team assistant Lurdes All components of the history and physical confirmed and agreed. History of present illness and physical exam: Patient is a 84-year-old female with past medical history of tension, hyperlipidemia, COPD, atrial fibrillation on warfarin [facility] the chief complaint of cough and shortness of breath. States that she was here in the ER on the first of this month and was diagnosed with RSV. She declined admission at that point time and wanted to go home. She states that normally she will wear 2 L at night but is not on oxygen chronically throughout the day. States that she took the prednisone that she was prescribed and states that she started feeling better up until 2 days ago. She states that she has had worsening shortness of breath with exertion as well as increased cough. States that she had some chest tightness associated with this prompting her to come here for further evaluation management. Review of systems: Agree with above Physical exam: Agree with above MDM Patient is a 84-year-old female who presents to the emergency department with a chief complaint of dyspnea on exertion, cough. Patient will have a workup performed here on the differential diagnose includes Melamin to CHF, ACS, pneumonia, pneumothorax, upper respiratory effect secondary viral etiology. Once workup is obtained reviewed she will be reevaluated. Patient CBC was significant for leukocytosis of 14,000, hemoglobin is 14.1, platelet count was noted be 304. Patient sodium normal 140, potassium of 4.6, creatinine normal at 0.88. Patient's proBNP elevated 5182 and troponin noted to be 27 delta troponin pending. Patient chest x-ray reviewed by myself and by radiology showed findings consistent with CHF stable emphysema. Patient's EKG reviewed by myself which showed ventricular paced rhythm at 60 bpm. Patient will be given 40 mg IV Lasix and patient case was discussed with hospitalist by physician assistant Chatman for admission. Patient was accepted for admission by hospitalist Dr. Elkins. Patient notified all question concerns answered. Final impression: Acute hypoxic respiratory failure CHF Dyspnea on exertion Disposition: Patient will be admitted to the hospital for further evaluation management Supervising attending attestation: Wilson Miguel D.O. HPI History of Present Illness Chief Complaint: Cough Narrative Narrative: 84-year-old female with PMH of HTN, HLD, COPD, A-fib, pacemaker on warfarin states 1 week ago she developed a cough and shortness of breath. She was seen i n our ER on 12/31/2024 and diagnosed with RSV bronchitis. She would desat on room air but was fine on 2 L and declined admission since she has home oxygen. She usually wears 2 L at night. She took the prescribed prednisone burst and states she felt better the next day and had a primary care follow-up 2 days ago and was doing well. She was not needing the oxygen during the day. Last night she woke up with a worsening productive cough and has chest tightness and shortness of breath. She has been using her rescue and maintenance inhalers. She quit smoking about 15 to 20 years ago. [facility] Medical History Hyperlipidemia Chronic pain Pacemaker Urinary retention Decreased cardiac ejection fraction Anticoagulated on Coumadin Paroxysmal atrial fibrillation Fall Back pain Essential hypertension Former smoker On home oxygen therapy Presence of permanent cardiac pacemaker (~12/10/21) Sick sinus syndrome Polyp, sigmoid colon Persistent atrial fibrillation Atrial fibrillation LBBB (left bundle branch block) Hypertrophic obstructive cardiomyopathy (HOCM) Long QT interval Chronic diastolic heart failure COPD (chronic obstructive pulmonary disease) Nonrheumatic mitral (valve) insufficiency Non-Hodgkin lymphoma Bladder cancer Atrial flutter with rapid ventricular response Home Medications ?Medication ?Instructions ?Recorded ?Last Taken ?Type magnesium oxide 400 mg PO DAILY supplement 0 04/06/19 01/06/25 History lisinopril 20 mg tablet 20 mg PO BID #180 tabs 12/3001/06/25 Rx acetaminophen 500 mg tablet 1,000 mg PO Q4H PRN pain 0 01/07/25 01/07/25 History buprenorphine 20 mcg/hour weekly 1 patch transdermal W E 01/07/25 Unknown History transdermal patch fluticasone 250 mcg-salmeterol 50 1 ea inhalation BID 01/07/25 01/06/25 History mcg/dose blistr powdr for inhalation furosemide 40 mg tablet 40 mg PO DAILY PRN edema 06/26 Unknown History gabapentin 300 mg capsule 300 mg PO 4X/DAY PRN pain Unknown History metoprolol succinate 100 mg 100 mg PO DAILY PRN Blood pressure 01/07/25 Unknown History tablet,extended release 24 hr mometasone 50 mcg/actuation nasal 2 spray intranasal D AILY PRN nasal 01/07/25 Unknown History spray congestion warfarin 3 mg tablet 1.5 mg PO DAILY 01/07/2505/26 History Allergy/AdvReac Type Severity Reaction Status Date / Time allopurinol AdvReac Mild upset gi Verified 01/07/25 12:04 tramadol AdvReac dizzy Verified 01/07/25 12:04 Family History Father Heart disease Hypertension Mother No cardiac disease Surgical History H/O cardiac radiofrequency ablation History of mitral valve repair (~07/30/18) History of ventricular septal myectomy (~07/30/18) History of left heart catheterization (LHC) (~11/30/17) History of bladder surgery History of cardioversion (~04/25/20) Social History household members: none Smoking Status: Former smoker pack-years: 58 how long ago did patient quit smokin years ago alcohol intake: never substance use type: does not use caffeine: No what type of physical activity do you participate in: walking ROS ROS ED ROS Narrative Constitutional: Negative for fever, chills, malaise. CVS: Positive for chest tightness Respiratory: Positive for shortness of breath, cough. GI: Negative for abdominal pain, nausea, vomiting. EXAM Physical Exam Narrative Exam Narrative: CONST: Patient sitting in no acute distress. EYES: Normal inspection. NECK: Normal inspection. RESP: No respiratory distress, CTAB. CVS: Regular rate and rhythm, no murmur, no gallop. ABD: Soft and nontender, no guarding or rebound, nondistended. SKIN: Color normal, no rash, warm, dry, intact. EXTREMITIES: Normal appearance, no pedal edema. NEURO: Alert and answering questions appropriately. PSYCH: Normal affect. Const Vital Signs: 01/07/25 11:46 01/07/25 11:57 01/07/25 13:06 Temperature 97.9 F Temperature Source Temporal Pulse Rate 59 L Respiratory Rate 16 Respiratory Effort Short of Breath Respiratory Depth Deep Blood Pressure 169/83 H Blood Pressure Mean 111 Pulse Ox 92 87 Oxygen Delivery Method Room Air Room Air Room Air Oxygen Flow Rate (L/min) 01/07/25 13:06 01/07/25 13:07 01/07/25 13:14 Temperature Temperature Source Pulse Rate 63 Respiratory Rate 16 Respiratory Effort Respiratory Depth Blood Pressure 154/92 H Blood Pressure Mean 112 Pulse Ox 92 94 93 Oxygen Delivery Method Nasal Cannula Nasal Cannula Nasal Cannula Oxygen Flow Rate (L/min) 2 2 2 MDM MDM MDM Narrative Medical decision making narrative: Differential includes but not limited to pneumonia, COPD, CHF, ACS 84-year-old female with history of A-fib/flutter on warfarin, pacemaker, COPD had upper respiratory symptoms a week ago and was diagnosed with RSV bronchitis. She completed a prednisone burst and was feeling better. Symptoms worsened last night with chest tightness, dyspnea, and increasing productive cough. She appears well and nontoxic. Vital signs stable. Initial exam is unremarkable and lung sounds are clear. Initially she was 92% on room air but desaturated to 87% on room air at rest and was placed on 2 L nasal cannula. CBC shows WBC of 14.6. Electrolytes are normal, BUN 22, creatinine 0.88. INR is subtherapeutic at 1.2. EKG is paced rhythm with atrial flutter which is chronic and unchanged from a week ago. Troponin is 27. It was 22 at prior visit. I do not think this represents ACS. CXR shows findings of CHF and a trace left pleural effusion. No acute infiltrate. She does not have clinical signs of fluid overload but proBNP is 5182 which is higher than prior visit. Her last echo from 2022 showed EF of 55% but severe diastolic dysfunction. I ordered IV Lasix 40 mg and since she is requiring 2 L of continuous oxygen and I feel she needs admitted. I discussed the case with the hospitalist for admission. External records reviewed: 06/27/2023 echocardiogram Mild LVH, EF 55%, stage III diastolic dysfunction. Right ventricular systolic pressure 48 mmHg. Lab Data Attestation: I reviewed the patient's lab results. Labs: Laboratory Results - last 24 hr 01/07/25 12:30 WBC 14.6 H RBC 5.36 Hgb 14.1 Hct 44.1 MCV 82.3 MCH 26.3 L MCHC 32.0 RDW Std Deviation 46.5 H RDW Coeff of Neelima 15.7 H Plt Count 304 MPV 9.3 Immature Gran % (Auto) 0.800 Neut % (Auto) 80.0 H Lymph % (Auto) 9.8 L Jones % (Auto) 7.3 Eos % (Auto) 1.5 Baso % (Auto) 0.6 Absolute Neuts (auto) 11.7 H Absolute Lymphs (auto) 1.44 Nucleated RBC % 0 PT 15.7 H INR 1.2 Sodium 140 Potassium 4.6 Chloride 100 Carbon Dioxide 27.7 Anion Gap 12 BUN 22 H Creatinine 0.88 Est GFR (MDRD) Non-Af 65 BUN/Creatinine Ratio 25.3 H Glucose 116 H Calcium 9.5 Troponin T High Sens 27 H D NT pro BNP II 5182 H Radiography Diagnostic Testing: Clinical Impression(s) from Imaging Studies Chest X-Ray 01/07/25 11:54 IMPRESSION: 1. Findings of CHF/volume overload including trace left pleural effusion. 2. Stable emphysema. Reading Location: [facility] ED attending interpretation of 2 view chest x-ray shows normal heart size, pacemaker. Bilateral patchiness consistent with CHF. No acute infiltrate. EKG Initial EKG: Attestation: I personally reviewed and interpreted this EKG as follows: Comments: Ventricular paced rhythm at 60 bpm Atrial flutter Appears similar to prior on December 31, 2024 Prior EKG tracings: available for review Prior: Unchanged Discharge Plan Triage Chief Complaint: Cough ED Midlevel Provider: Lurdes May ED Provider: Wilson Miguel Dx/Rx/DC Orders Clinical Impression: Acute exacerbation of CHF (congestive heart failure), Hypoxia, Subtherapeutic international normalized ratio (INR) Prescriptions: No Action magnesium oxide 400 mg magnesium tablet 400 mg PO DAILY buprenorphine 20 mcg/hour patch weekly 1 patch transdermal WE gabapentin 300 mg capsule 300 mg PO 4X/DAY PRN (Reason: pain) Patient Comments: PT DOESNT LIKE, ONLY USES NEEDED. fluticasone propion-salmeterol 250-50 mcg/dose blister with device 1 ea INHALATION BID mometasone 50 mcg/actuation spray,non-aerosol 2 spray INTRANASAL DAILY PRN (Reason: nasal congestion) Patient Comments: PT TAKES ONCE IN A WHILE. DOESNT THINK IT HELPS furosemide 40 mg tablet 40 mg PO DAILY PRN (Reason: edema) metoprolol succinate 100 mg tablet extended release 24 hr 100 mg PO DAILY PRN (Reason: Blood pressure) Patient Comments: ONLY TAKES IF BP IS HIGHER THAN 150 acetaminophen 500 mg Tablet 1,000 mg PO Q4H PRN (Reason: pain) warfarin 3 mg tablet 1.5 mg PO DAILY Protocol: Dose Management Condition: Thursday Dose/Route: 1.5 mg Instruction: 0.5 x 3 mg tablets Condition: Thursday Dose/Route: 1.5 mg Instruction: 0.5 x 3 mg tablets Condition: Thursday Dose/Route: 1.5 mg Instruction: 0.5 x 3 mg tablets Condition: Thursday Dose/Route: 1.5 mg Instruction: 0.5 x 3 mg tablets Condition: Dose/Route: 1.5 mg Instruction: 0.5 x 3 mg tablets Condition: Thursday Dose/Route: 1.5 mg Instruction: 0.5 x 3 mg tablets Condition: Thursday Dose/Route: 1.5 mg Instruction: 0.5 x 3 mg tablets Protocol Text: Adjustment Start Date: Thursday01/03/25 INR Value: 2.7 INR Date: 01/03/25 Recheck Date: 01/17/25 lisinopril 20 mg tablet 20 mg PO BID Qty: 180 3RF Primary Care Provider: Cheyanne Holt Referrals: Cheyanne Holt MD [Primary Care Provider] - Print Language: Kinyarwanda
[2025-01-07 12:43] LABS: Absolute Lymphocyte Count 1.44 X10^3/uL (0.83-4.51); Absolute Neutrophil Count 11.7 X10^3/uL (2.0-7.7); Basophil# 0.09 X10^3/uL; Basophil% 0.6 % (0-1); Eosinophil# 0.22 X10^3/uL; Eosinophils% 1.5 % (0-5); Hematocrit 44.1 % (37-47); Hemoglobin 14.1 g/dL (12.0-15.0); Lymphocyte # 1.44 X10^3/ul (0.83-4.51); Lymphocyte % 9.8 % (19-41); Mean Corpuscular Hgb 26.3 pg (27.0-32.0); Mean Corpuscular Volume 82.3 fL (81-99); Mean Platelet Vol. 9.3 fl (6.2-12.0); Monocyte# 1.07 X10^3/uL; Monocyte% 7.3 % (0-10); NRBC Flagged by Analyzer 0 % (0-5); Neutrophil # 11.69 X10^3/uL (2.7-7.7); Platelet Count 304 K/mm3 (150-450); RBC Distribution Width CV 15.7 % (11.6-14.6); RBC Distribution Width SD 46.5 fl (35.1-43.9); Red Blood Count 5.36 M/mm3 (4.2-5.4); White Blood Count 14.6 K/mm3 (4.4-11.0)
[2025-01-07 12:51] LABS: International Normalized Ratio 1.2; Prothrombin Time (Protime)PT. 15.7 SECONDS (11.7-14.9)
[2025-01-07 13:01] LABS: Anion Gap 12 (5-15); BUN 22 mg/dL (4-19); BUN/Creat Ratio 25.3 RATIO (10-20); Calcium,Total 9.5 mg/dL (7.6-11.0); Carbon Dioxide 27.7 mmol/L (21.0-32.0); Chloride 100 mmol/L (98-108); Creatinine, Serum 0.88 mg/dL (0.70-1.20); EST Glomerular Filtration Rate 65 (>60); Glucose 116 mg/dL (70-99); Potassium 4.6 mmol/L (3.3-5.1); Sodium Level 140 mmol/L (133-145)
[2025-01-07 13:17] LABS: Troponin T High Sensitivity 27 ng/L (<=14)
[2025-01-07 13:59] LABS: Pro- Brain NATRIURETIC PEPTIDE 5182 pg/mL (<=1800)
--- NOTE | 2025-01-07 14:22 | HP.PCM.HOS_ITS ---
HPI - General General Date of Admission: 01/07/25 Date of Service: 01/07/25 Chief Complaint: Worsening shortness of breath HPI Narrative MICHELLE JIMENEZ, is a 84 F who presented to [facility] ED on 01/07/2025 with worsening shortness of breath. Patient was recently seen in the ED here on 12/31 for shortness of breath. Was found to be RSV positive. She is on 2 L nasal cannula at night and oxygen saturation was borderline low at that time but patient was adamant on being discharged home, so she was discharged on a course of prednisone. She initially did feel better but then over the last few days she has had some worsening shortness of breath especially with exertion. She does live at home alone. In the ED she was hypertensive to the 160s to 170s and was satting in the low 90s on 2 L nasal cannula. Chest x-ray showed CHF/volume overload including trace left pleural effusion along with stable emphysema. BNP very elevated at 5182. Notably her BNP on 12/31 was 4709; there were no prior BNP's for comparison. Patient does have a history of HFpEF. Last echo in 06/2023 showed EF 55%, mild concentric LV hypertrophy and stage III diastolic dysfunction. Patient is on Lasix 40 mg as needed at home and has not been taking this recently. Given concern for CHF exacerbation, hospitalist was contacted for admission. I saw the patient at bedside in the ED, friend was present. Patient was sitting back comfortably in bed, conversing normally and in no acute distress. She is somewhat thin appearing at baseline but is mentally sharp and has a strong personality. She asked me shortly after beginning her conversation if this could be managed at home rather than in the hospital. She did report feeling more short of breath especially with exertion over the past few days. Reports taking her other medications as normal but has not taken her Lasix for some time. She denies any fevers or chills. Denies any worsening cough or sputum production. No other acute concerns at this time. [facility] Medical History Hyperlipidemia Chronic pain Pacemaker Urinary retention Decreased cardiac ejection fraction Anticoagulated on Coumadin Paroxysmal atrial fibrillation Fall Back pain Essential hypertension Former smoker On home oxygen therapy Presence of permanent cardiac pacemaker (~12/10/21) Sick sinus syndrome Polyp, sigmoid colon Persistent atrial fibrillation Atrial fibrillation LBBB (left bundle branch block) Hypertrophic obstructive cardiomyopathy (HOCM) Long QT interval Chronic diastolic heart failure COPD (chronic obstructive pulmonary disease) Nonrheumatic mitral (valve) insufficiency Non-Hodgkin lymphoma Bladder cancer Atrial flutter with rapid ventricular response Home Medications ?Medication ?Instructions ?Recorded ?Last Taken ?Type magnesium oxide 400 mg PO DAILY supplement 0 04/06/19 01/06/25 History lisinopril 20 mg tablet 20 mg PO BID #180 tabs 12/3001/06/25 Rx acetaminophen 500 mg tablet 1,000 mg PO Q4H PRN pain 0 01/07/25 01/07/25 History buprenorphine 20 mcg/hour weekly 1 patch transdermal W E 01/07/25 Unknown History transdermal patch fluticasone 250 mcg-salmeterol 50 1 ea inhalation BID 01/07/25 01/06/25 History mcg/dose blistr powdr for inhalation furosemide 40 mg tablet 40 mg PO DAILY PRN edema 06/26 Unknown History gabapentin 300 mg capsule 300 mg PO 4X/DAY PRN pain Unknown History metoprolol succinate 100 mg 100 mg PO DAILY PRN Blood pressure 01/07/25 Unknown History tablet,extended release 24 hr mometasone 50 mcg/actuation nasal 2 spray intranasal D AILY PRN nasal 01/07/25 Unknown History spray congestion warfarin 3 mg tablet 1.5 mg PO DAILY 01/07/2505/26 History Allergy/AdvReac Type Severity Reaction Status Date / Time allopurinol AdvReac Mild upset gi Verified 01/07/25 12:04 tramadol AdvReac dizzy Verified 01/07/25 12:04 Family History Father Heart disease Hypertension Mother No cardiac disease Surgical History H/O cardiac radiofrequency ablation History of mitral valve repair (~07/30/18) History of ventricular septal myectomy (~07/30/18) History of left heart catheterization (LHC) (~11/30/17) History of bladder surgery History of cardioversion (~04/25/20) Social History household members: none Smoking Status: Former smoker pack-years: 58 how long ago did patient quit smokin years ago alcohol intake: never substance use type: does not use caffeine: No what type of physical activity do you participate in: walking ROS Constitutional Constitutional: Denies chills, fatigue, fever(s) or weakness Eyes Eyes: Denies change in vision Cardiovascular Cardiovascular: Reports dyspnea on exertion; Denies chest pain, edema, lightheadedness or palpitations Respiratory/Chest Respiratory/Chest: Reports cough and shortness of breath with exertion; Denies productive cough, shortness of breath at rest or wheezing Gastrointestinal Gastrointestinal: Denies abdominal pain Musculoskeletal Musculoskeletal: Denies arthralgias or myalgias Vital Signs Vital Signs Vital Signs: 01/07/25 11:46 01/07/25 11:57 01/07/25 13:06 Temperature 97.9 F Temperature Source Temporal Pulse Rate 59 L Respiratory Rate 16 Respiratory Effort Short of Breath Respiratory Depth Deep Blood Pressure 169/83 H Blood Pressure Mean 111 Pulse Ox 92 87 Oxygen Delivery Method Room Air Room Air Room Air Oxygen Flow Rate (L/min) 01/07/25 13:06 01/07/25 13:07 01/07/25 13:14 Temperature Temperature Source Pulse Rate 63 Respiratory Rate 16 Respiratory Effort Respiratory Depth Blood Pressure 154/92 H Blood Pressure Mean 112 Pulse Ox 92 94 93 Oxygen Delivery Method Nasal Cannula Nasal Cannula Nasal Cannula Oxygen Flow Rate (L/min) 2 2 2 Physical Exam Const alert, oriented x3 and no apparent distress Constitutional Narrative: Elderly female, thin appearing, mentally sharp for age, sitting back comfortably in bed, conversing normally, in no acute distress. General Appearance: cooperative and comfortable HEENT normocephalic, head/scalp atraumatic, hearing grossly normal bilaterally, nasal mucous membranes and turbinates normal and moist oral mucous membranes Eyes PERRL, EOMs intact bilaterally and conjunctivae normal Neck full ROM Chest inspection of chest normal Resp normal respiratory effort and no use of accessory muscles Resp Narrative: Breathing comfortably on 2 L nasal cannula at rest. Mild crackles noted in bilateral lung bases but otherwise good air movement throughout with no wheezing noted. Cardio regular rate, regular rhythm, no murmurs and peripheral pulses 2+ throughout GI normal to inspection, nondistended, normoactive bowel sounds, soft to palpation, non-tender and non-distended Back/Spine normal ROM Extremity normal to inspection, full ROM and no pedal edema Skin no rashes or lesions noted Neuro no focal motor deficits Speech: speech normal Motor Exam: strength 5/5 throughout Psych mental status grossly normal Results Lab / Micro Data 01/07/25 12:30 01/07/25 12:30 Labs: Laboratory Results - last 24 hr 01/07/25 12:30: WBC 14.6 H, RBC 5.36, Hgb 14.1, Hct 44.1, MCV 82.3, MCH 26.3 L, MCHC 32.0, RDW Std Deviation 46.5 H, RDW Coeff of Neelima 15.7 H, Plt Count 304, MPV 9.3, Immature Gran % (Auto) 0.800, Neut % (Auto) 80.0 H, Lymph % (Auto) 9.8 L, [facility] % (Auto) 7.3, Eos % (Auto) 1.5, Baso % (Auto) 0.6, Absolute Neuts (auto) 11.7 H, Absolute Lymphs (auto) 1.44, Nucleated RBC % 0, PT 15.7 H, INR 1.2, Sodium 140, Potassium 4.6, Chloride 100, Carbon Dioxide 27.7, Anion Gap 12, BUN 22 H, Creatinine 0.88, Est GFR (MDRD) Non-Af 65, BUN/Creatinine Ratio 25.3 H, G lucose 116 H, Calcium 9.5, Troponin T High Sens 27 H D, NT pro BNP II 5182 H Imaging Radiology Impression Chest X-Ray 01/07/25 11:54 IMPRESSION: 1. Findings of CHF/volume overload including trace left pleural effusion. 2. Stable emphysema. Reading Location: [facility] Assessment & Plan Assessment/Plan (1) Acute exacerbation of CHF (congestive heart failure): (2) Hypoxia: (3) Subtherapeutic international normalized ratio (INR): PLAN: Plan Patient is an 84-year-old female who presented [facility] ED on 01/07/2025 with worsening shortness of breath. 1. HFpEF exacerbation, history of heart failure with recovered ejection fraction ? Admit under inpatient status to PCU. Follows with outpatient cardiology as noted below, history of heart failure with recovered ejection fraction. Last echo in 06/2023 showed EF 55%, mild concentric LV hypertrophy, stage III diastolic dysfunction. Chest x-ray with volume overload and BNP very elevated on admission. Repeat echo ordered. Will treat with IV Lasix 40 mg twice daily for now, monitor daily BMP and urine output. 2. Recent RSV infection in setting of COPD with chronic hypoxic respiratory failure ? Recent ED visit on 12/31 with URI symptoms, found a positive for RSV. Wears 2 L nasal cannula at night and oxygen saturations were borderline but patient was adamant on returning home. She was treated with a 5-day prednisone burst; suspect this is the reason for her mild leukocytosis, low concern for secondary infection. Requiring 2 L nasal cannula to maintain oxygen saturations in the low 90s in the ED. Suspect patient will need to repeat oxygen testing on discharge to ensure she has an appropriate prescription for oxygen going forward. Continue home inhalers. 3. A-fib on Coumadin with subtherapeutic INR with history of ablation and left atrial appendage ligation, history of sick sinus syndrome s/p pacemaker placement, history of hypertrophic cardiomyopathy s/p ventricular septal myectomy, history of MV repair, hypertension, peripheral vascular disease ? Follows with [facility], last visit was on 10/21/2024. INR 1.2 on admit, goal 2-3. Patient in paced rhythm with heart rate around 60 on admit. Will continue home warfarin and start therapeutic Lovenox to bridge back to therapeutic INR. Monitor INR daily. Hypertensive to the 170s to 180s in the ED, treated with IV Lasix as noted above and continue home Toprol and lisinopril. 4. Chronic neuropathic pain ? Stable. Continue home gabapentin as needed. 5. Former tobacco use ? Encouraged continued cessation. DVT prophylaxis: Not indicated, on warfarin CODE STATUS: Full code, verified Expected disposition: Home, 2 to 3 days Total clinical time spent by myself addressing the patient's medical issues, reviewing all the data, and collaborating with patient's care team: 75 minutes. Charges/Coding Visit Charges Inpatient E&M: 87579 Init Hosp L3
--- NOTE | 2025-01-07 14:27 | ECHOD_ITS ---
Reason For Study Reason For Study: CHF Procedure This was a 2D Doppler, Color Flow transthoracic echocardiogram. Exam performed portable in patient room. Left Ventricle Normal LV size. The estimated ejection fraction is 70 %. Unable to assess diastolic dysfunction. No regional wall motion abnormalities noted. Right Ventricle Normal RV size. ICD or pacer leads identified within the right ventricle. Normal systolic function. Atria The left atrium is severely enlarged. The right atrium is moderately enlarged. ICD or pacer leads identified within the right atrium. No doppler evidence for ASD. Mitral Valve There is moderate to severe mitral annular calcification. There is no mitral valve stenosis. No mitral valve insufficiency. Tricuspid Valve There is no tricuspid stenosis. Trivial tricuspid valve insufficiency. Unable to estimate RV systolic pressure due to insufficient tricuspid regurgitant envelope. Aortic Valve Aortic sclerosis, no stenosis. No aortic valve insufficiency. Pulmonic Valve There is no pulmonic valvular stenosis. No pulmonic valve insufficiency. Great Vessels Normal sized aortic root. Pericardium/Pleural No pericardial effusion. MMode/2D Measurements & Calculations LVIDd: 4.1 cm IVSd: 1.6 cm LVOT diam: 2.0 cm LVIDs: 3.0 cm LVPWd: 1.0 cm LVOT area: 3.2 cm2 RVDd: 3.3 cm FS: 28.2 % Ao root diam: 3.2 cm LAV(MOD-bp): 115.6 ml LVAd ap2: 17.6 cm2 LAV(MOD-bp) Indexed: 69.4 ml/m2 LVLd ap2: 7.1 cm LAV(MOD-sp2): 110.4 ml EDV(MOD-sp2): 36.3 ml LAV(MOD-sp4): 115.6 ml EDV(sp2-el): 36.9 ml LVAs ap2: 11.2 cm2 LVLs ap2: 6.3 cm ESV(MOD-sp2): 16.5 ml ESV(sp2-el): 16.7 ml EF(MOD-sp2): 54.5 % SV(MOD-sp2): 19.8 ml LA A4 area: 31.0 cm2 LA dimension(2D): 5.1 cm SI(MOD-sp2): 11.9 ml/m2 RA A4 area: 21.6 cm2 TAPSE: 1.5 cm Doppler Measurements & Calculations MV E max amanda: 87.4 cm/sec MV V2 max: 86.4 cm/sec MV P1/2t max amanda: 84.1 cm/sec MV max P.0 mmHg MV P1/2t: 114.2 msec MV V2 mean: 44.9 cm/sec MV mean P.1 mmHg MV dec slope: 215.7 cm/sec2 MV V2 VTI: 26.1 cm MVA(P1/2t): 1.9 cm2 MVA(VTI): 2.3 cm2 Ao V2 max: 169.8 cm/sec LV V1 max: 92.5 cm/sec SV(LVOT): 59.9 ml Ao max P.6 mmHg LV V1 max P.4 mmHg Ao V2 mean: 114.0 cm/sec LV V1 mean P.8 mmHg Ao mean P.0 mmHg LV V1 mean: 63.3 cm/sec Ao V2 VTI: 28.0 cm LV V1 VTI: 18.7 cm AV (velocity ratio): 0.67 ANDRE(I,D): 2.1 cm2 ANDRE(V,D): 1.7 cm2 PA V2 max: 88.7 cm/sec TR max amanda: 274.9 cm/sec TR max P.2 mmHg ECHO/Echo Complete Interpretation Summary The estimated ejection fraction is 70 %. The left atrium is severely enlarged. The right atrium is moderately enlarged. Ordering Physician: Ivan Elkins Referring Physician: ALISIA PACHECO Performed By: Lynette Sarmiento, DARLINE
[2025-01-07] MEDS: Furosemide 40 MG/4 ML Vial IV ×2 (14:34→17:22)
--- NOTE | 2025-01-07 14:55 | CASEMGMT ---
Care Management Face to Face with patient for initial transition planning/care coordination assessment in the ED.? This news writer introduced self and role at [facility]. Patient alert and oriented. Patient willing to participate in assessment and is able to answer all questions appropriately.? Care providers, pharmacy, and demographics verified. Patient?s friend, Jesika was also present which patient consented to. Admitting Diagnosis: Other diagnosis history: Including but may not be limited to: HTN, HLD, COPD, A-fib, Chronic Pain, Non-Hodgkin Lymphoma, bladder cancer and pacemaker. PCP: / [facility] Specialists: Surgical Garment Inspector: Dr. Souza Preferred Pharmacy: [facility] Insurance: Medicare: A[employer] Prescription Benefit: Yes Living Will/HPOA: ?Yes and in medical records LNOK: Patient is a and has 1 daughter who lives in [place] and a son who lives in [place]. Both were described as supports. Living Arrangements: Patient lives alone in a one-story house. Patient stated the rec room has one step and the garage has one step, both of which patient stated she is able to navigate. Transportation: Patient does not drive however, her friend Jesika provides transportation as needed and patient also utilizes transportation through [facility]. DME: Standard walker, quad cane, wheelchair, grab bar by shower, by toilet, 2 leading into the Rec. Room and 2 leading to the garage, HHS, shower chair, and 2l of oxygen at night that is provided by [facility]. HHC: No history of. Only interested if insurance will pay; otherwise, patient?s friend Jesika assists patient as needed. SNF/Rehab: Patient previously in the TCU at [facility] after patient broke her right leg. Community Resources: Denied Behavioral Health History: Denied Patient goals: Patient wishes to discharge home. Patient denies any further needs or concerns at this time. Disposition Plan: admission to acute; RN CM/SW to follow for discharge planning needs that may arise. Aaliyah Bernard, MISSION COMMANDER, FLASK HANDLER
[2025-01-07 17:14] LABS: Troponin T High Sens 2 HR 30 ng/L (<=14)
[2025-01-07] MEDS: Warfarin 1 MG, Warfarin 0.5 MG 1.5 MG PO (17:22)
[2025-01-07] MEDS: Budesonide Respules 0.5 MG/2 ML AMPUL.NEB. INHALATION (20:10)
[2025-01-07] MEDS: Albuterol 2.5 MG/3 ML VIAL.NEB. INHALATION (20:10)
[2025-01-07] MEDS: Lisinopril 20 MG Tablet PO (21:23)
[2025-01-08] VITALS (9 sets, daily range): BP systolic 111–130; BP diastolic 58–72; PULSE 58–72; RESP 18–20; TEMP 36.5–37.3; O2SAT 91–95; BMI 19.5
[2025-01-08] MEDS: Enoxaparin 60 MG/0.6 ML Syringe SC ×2 (06:08→17:36)
[2025-01-08] MEDS: Budesonide Respules 0.5 MG/2 ML AMPUL.NEB. INHALATION ×2 (07:38→20:37)
[2025-01-08] MEDS: Albuterol 2.5 MG/3 ML VIAL.NEB. INHALATION ×3 (07:38→20:37)
[2025-01-08 08:21] LABS: Hemoglobin 15.4 g/dL (12.0-15.0); Mean Corp Hgb Conc 32.1 g/dL (32-36); Mean Corpuscular Volume 81.1 fL (81-99); Mean Platelet Vol. 9.9 fl (6.2-12.0); Platelet Count 332 K/mm3 (150-450); RBC Distribution Width CV 15.7 % (11.6-14.6); RBC Distribution Width SD 46.1 fl (35.1-43.9); Red Blood Count 5.92 M/mm3 (4.2-5.4); White Blood Count 14.9 K/mm3 (4.4-11.0)
[2025-01-08 08:38] LABS: International Normalized Ratio 1.2; Prothrombin Time (Protime)PT. 15.7 SECONDS (11.7-14.9)
[2025-01-08 09:21] LABS: Anion Gap 14 (5-15); BUN 28 mg/dL (4-19); BUN/Creat Ratio 29.5 RATIO (10-20); Calcium,Total 9.7 mg/dL (7.6-11.0); Carbon Dioxide 28.9 mmol/L (21.0-32.0); Chloride 95 mmol/L (98-108); Creatinine, Serum 0.96 mg/dL (0.70-1.20); EST Glomerular Filtration Rate 58 (>60); Estimated Creatinine Clearance 37.27 ml/min (50-250); Glucose 110 mg/dL (70-99); Potassium 4.1 mmol/L (3.3-5.1); Sodium Level 139 mmol/L (133-145)
[2025-01-08] MEDS: Magnesium Chloride 64 MG Delay Rel.Tablet 128 MG PO (09:44)
[2025-01-08] MEDS: Furosemide 40 MG/4 ML Vial IV ×2 (09:45→17:35)
[2025-01-08] MEDS: 0.9% Saline Lock 10 ML Syringe IV (09:45)
[2025-01-08] MEDS: Metoprolol(XL)Succ 100 MG Tablet PO (09:46)
--- NOTE | 2025-01-08 10:23 | PCM.PROGNOTE ---
Subjective Subjective Patient seen and examined. She felt well and had no active complaints. She felt her breathing had improved. She denied any fever, chills, cough, chest pain, palpitations, dizziness, nausea, vomiting or any other symptoms. REview of systems is otherwise negative. SHe is on 4L of oxygen. Objective Data Objective Data Vital Signs: Vital Signs Temp Pulse Resp BP Pulse Ox O2 Del Method O2 Flow Rate 98.1 F 60 18 111/58 L 94 Nasal Cannula 4 01/08/25 09:41 01/08/25 09:46 01/08/25 09:41 01/08/25 09:41 01/08/25 09:41 01/08/25 09:41 01/08/25 09:41 Oxygen Flow Rate (L/min) 4 Oxygen Delivery Method Nasal Cannula Weight: 121 lb 7.595 oz Body Mass Index (BMI) 19.5 Intake & Output: Intake and Output for Last 24 Hours 01/06/25 01/07/25 01/09/25 23:59 23:59 00:59 Intake Total 200 / 200 Output Total 700 / 700 1400 / 1400 Balance -500 / -500 -1400 / -1400 Lab / Micro Data 01/08/25 07:52 01/08/25 07:52 Labs: Laboratory Results - last 24 hr 01/07/25 12:30: WBC 14.6 H, RBC 5.36, Hgb 14.1, Hct 44.1, MCV 82.3, MCH 26.3 L, MCHC 32.0, RDW Std Deviation 46.5 H, RDW Coeff of Neelima 15.7 H, Plt Count 304, MPV 9.3, Immature Gran % (Auto) 0.800, Neut % (Auto) 80.0 H, Lymph % (Auto) 9.8 L, [place] % (Auto) 7.3, Eos % (Auto) 1.5, Baso % (Auto) 0.6, Absolute Neuts (auto) 11.7 H, Absolute Lymphs (auto) 1.44, Nucleated RBC % 0, PT 15.7 H, INR 1.2, Sodium 140, Potassium 4.6, Chloride 100, Carbon Dioxide 27.7, Anion Gap 12, BUN 22 H, Creatinine 0.88, Est GFR (MDRD) Non-Af 65, BUN/Creatinine Ratio 25.3 H, Glucose 116 H, Calcium 9.5, Troponin T High Sens 27 H D, NT pro BNP II 5182 H 01/07/25 16:03: Troponin T Hi Sens 2 Hr 30 H 01/08/25 07:52: WBC 14.9 H, RBC 5.92 H, Hgb 15.4 H, Hct 48.0 H, MCV 81.1, MCH 26.0 L, MCHC 32.1, RDW Std Deviation 46.1 H, RDW Coeff of Neelima 15.7 H, Plt Count 332, MPV 9.9, PT 15.7 H, INR 1.2, Sodium 139, Potassium 4.1, Chloride 95 L, Carbon Dioxide 28.9, Anion Gap 14, BUN 28 H, Creatinine 0.96, Estim Creat Clear Calc 37.27 L, Est GFR (MDRD) Non-Af 58 L, BUN/Creatinine Ratio 29.5 H, Glucose 110 H, Calcium 9.7 Radiography Diagnostic Testing: Radiology Impression Chest X-Ray 01/07/25 11:54 IMPRESSION: 1. Findings of CHF/volume overload including trace left pleural effusion. 2. Stable emphysema. Reading Location: [facility] Physical Exam Const alert, oriented x3, no apparent distress and well nourished General Appearance: cooperative HEENT normocephalic, head/scalp atraumatic, moist oral mucous membranes and oropharynx normal Eyes PERRL and EOMs intact bilaterally Neck no lymphadenopathy and supple Lymph Lymphatic: no lymphadenopathy noted Resp Resp Narrative: diminished breath sounds bibasally, no wheezes or crackles. On 4L of oxygen by nasal canula Cardio regular rate, regular rhythm, S1 normal heart sound and S2 normal heart sound GI normal to inspection, nondistended, normoactive bowel sounds, soft to palpation, non-tender and non-distended Extremity normal capillary refill, no clubbing, cyanosis or edema and no calf tenderness General Extremity: no tenderness to palpation of joints or extremities Skin General Skin Exam: no breakdown Neuro CN's II-XII intact bilaterally, no focal motor deficits and no sensory deficits noted Motor Exam: general weakness Psych thought process normal and cooperative Appearance: appropriate Assessment & Plan Assessment/Plan (1) Acute exacerbation of CHF (congestive heart failure): (2) Hypoxia: PLAN: Plan #Hypoxia due to acute exacerbation of heart failure and RSV infection patient currently on 4L of oxygen. She says she does feel much better. BNP was elevated at 5182. being diuresed with IV lasix 40mg bid. monitor intake and output. Fluid restriction to 1500cc daily Titrate oxygen as needed to maintain saturation above 90%. Was diagnosed with RSV on 12/31/2024. He usually wears 2 L of oxygen at home. Patient was treated with 5-day prednisone burst. To have walking pulse ox prior to discharge. #Atrial fibrillation On Coumadin. Has had ablation and left atrial appendage ligation. On Coumadin. Target INR is 2-3. #History of sick sinus syndrome: Status post pacemaker insertion #Chronic neuropathic pain: On gabapentin DVT prophylaxis: Not indicated as patient already on Coumadin. INR is 1.2. # Charges/Coding Visit Charges Inpatient E&M: 97098 Subs Hosp L2
[2025-01-08] MEDS: Warfarin 1 MG, Warfarin 0.5 MG 1.5 MG PO (17:34)
[2025-01-08] MEDS: Lisinopril 20 MG Tablet PO (20:48)
[2025-01-09] VITALS (17 sets, daily range): BP systolic 108–128; BP diastolic 58–74; PULSE 60–80; RESP 16–25; TEMP 36.6–37.2; O2SAT 74–94; BMI 19.5
[2025-01-09] MEDS: Enoxaparin 60 MG/0.6 ML Syringe SC ×2 (05:05→19:17)
[2025-01-09 08:35] LABS: International Normalized Ratio 1.2; Prothrombin Time (Protime)PT. 15.2 SECONDS (11.7-14.9)
[2025-01-09] MEDS: Budesonide Respules 0.5 MG/2 ML AMPUL.NEB. INHALATION (08:38)
[2025-01-09] MEDS: Albuterol 2.5 MG/3 ML VIAL.NEB. INHALATION ×3 (08:38→21:12)
[2025-01-09] MEDS: 0.9% Saline Lock 10 ML Syringe IV (10:16)
[2025-01-09] MEDS: Furosemide 40 MG/4 ML Vial IV ×2 (10:16→19:18)
[2025-01-09] MEDS: Metoprolol(XL)Succ 100 MG Tablet PO (10:16)
[2025-01-09] MEDS: Magnesium Chloride 64 MG Delay Rel.Tablet 128 MG PO (10:17)
[2025-01-09] MEDS: Lisinopril 20 MG Tablet PO ×2 (10:17→22:35)
--- NOTE | 2025-01-09 14:15 | RAD_ITS ---
EXAM: XR Chest, 2 Views CLINICAL INDICATION: TECHNIQUE: Frontal and lateral views of the chest. COMPARISON: No relevant prior studies available. FINDINGS: LUNGS AND PLEURAL SPACES: Bibasilar atelectasis or pneumonia. Hyperlucent lungs. Flattening of the diaphragm. No pneumothorax. HEART: Unremarkable. No cardiomegaly. MEDIASTINUM: Unremarkable. Normal mediastinal contour. BONES/JOINTS: Unremarkable. No acute fracture. TUBES, LINES AND DEVICES: Left-sided cardiac pacemaker. RAD/Chest PA and Lateral IMPRESSION: 1. Bibasilar atelectasis or pneumonia. 2. Suggestion of COPD. Reading Location: [facility]
--- NOTE | 2025-01-09 16:20 | CASEMGMT ---
PRETTY MARTINEZ received information from nurse that pt wanted RU. Reviewed chart, RU not appropriate for pt at this time. PRETTY MARTINEZ into pt room to discuss therapy and pt DC plan. Pt intends to go to [place] and stay with her daughter and go to OP rehab at time of DC.
--- NOTE | 2025-01-09 16:20 | CHAPLAIN ---
Type of Pastoral Visit _x__ Initial Visit ___ Follow-up Visit ___ On-call Visit ___ General Patient Visit ___ Spiritual Assessment ___ Family Conference ___ Bereavement ___ Rapid Response ___ Code Blue ___ Other (describe below) Pastoral Care Referral From _x__ Patient ___ Family ___ Nurse ___ Physician ___ Grocery Supervisor ___ Health Technical Writer ___ Other (describe below) Sacrament/Intervention _x__ Active listening ___ Anointing ___ Mosque ___ Bereavement ___ Communion ___ Cira exploration ___ ___ Life review _x__ Prayer ___ Reconciliation ___ Sacrament of Sick _x__ Supportive presence ___ Wedding ___ Other (describe below) Pastoral Comments patient had many birthday cards along with liriano and balloons in the room; pt acknowledges that it is her birthday (tomorrow) although she repeats that she doesn't like it; listened to views about having more birthdays; pt is thankful for family support but wants to be out of the hospital soon; pt continued to turn the conversation around to the principal technical architect and what he does and how he is etc.; had to refocus the patient on her needs and care; pt welcomed a prayer and expressed her thankfulness for the visit
[2025-01-09] MEDS: Warfarin 1 MG, Warfarin 0.5 MG 1.5 MG PO (19:18)
[2025-01-09] MEDS: metOLazone 5 MG Tablet PO (19:18)
--- NOTE | 2025-01-09 19:55 | PCM.PN.HOSP ---
Reason for Visit Reason for Visit: Diagnoses Heart failure, unspecified (01/07/25) Hypoxemia (01/07/25) Abnormal coagulation profile (01/07/25) Subjective Subjective Patient was seen and examined today, she is currently requiring 4 L of oxygen via nasal cannula. Patient will like to go home and I explained to her that because of her oxygen requirement she would likely have to have another concentrator set up at home and that I would check her tomorrow to see if she is stable to be discharged home. I talked to her daughter who was present at the time my examination. Objective Data Objective Data Vital Signs: Vital Signs Temp Pulse Resp BP Pulse Ox O2 Del Method O2 Flow Rate 97.8 F 68 18 128/73 H 92 Nasal Cannula 4 01/09/25 13:42 01/09/25 15:00 01/09/25 13:57 01/09/25 08:16 01/09/25 13:57 01/09/25 13:57 01/09/25 13:57 Oxygen Flow Rate (L/min) 4 Oxygen Delivery Method Nasal Cannula Weight: 55 kg Body Mass Index (BMI) 19.5 Intake & Output: Intake and Output for Last 24 Hours 01/07/25 01/09/25 01/09/25 23:59 00:59 23:59 Intake Total 200 / 200 250 / 250 150 / 150 Output Total 700 / 700 2800 / 2800 700 / 700 Balance -500 / -500 -2550 / -2550 -550 / -550 Lab / Micro Data 01/08/25 07:52 01/10/25 07:03 Labs: Laboratory Results - last 24 hr 01/09/25 08:14: PT 15.2 H, INR 1.2 Radiography Diagnostic Testing: Radiology Impression Echocardiogram 01/07/25 14:27 Interpretation Summary The estimated ejection fraction is 70 %. The left atrium is severely enlarged. The right atrium is moderately enlarged. Ordering Physician: Ivan Elkins Referring Physician: ALISIA PACHECO Performed By: Lynette Sarmiento, RDCS Chest X-Ray 01/09/25 14:15 IMPRESSION: 1. Bibasilar atelectasis or pneumonia. 2. Suggestion of COPD. Reading Location: [facility] Physical Exam Const alert, oriented x3 and no apparent distress Constitutional Narrative: Patient appears cachectic and frail General Appearance: cooperative, well kempt and well developed Orientation / Consciousness: awake, oriented to person, oriented to place and oriented to time HEENT normocephalic, head/scalp atraumatic and moist oral mucous membranes Eyes PERRL, EOMs intact bilaterally and conjunctivae normal Neck supple, no JVD, thyroid normal and no carotid bruits General: trachea midline Resp normal respiratory effort, no retractions and no use of accessory muscles Resp Narrative: Diminished breath sounds are noted bilaterally Auscultation: Negative for rales, rhonchi or wheezes Cardio regular rate, regular rhythm, S1 normal heart sound, S2 normal heart sound, no murmurs, no rub and no gallops GI normal to inspection, nondistended, normoactive bowel sounds, soft to palpation, non-tender and non-distended Extremity no clubbing, cyanosis or edema Skin no rashes or lesions noted General Skin Exam: no breakdown Neuro oriented x3, CN's II-XII intact bilaterally, moves all extremities, no focal motor deficits and no sensory deficits noted Sensorium / Orientation: awake and alert Speech: speech normal Psych affect normal Assessment & Plan Assessment/Plan (1) Acute exacerbation of CHF (congestive heart failure): PLAN: Plan 1. Acute on chronic hypoxic respiratory failure secondary to acute exacerbation of congestive heart failure with preserved ejection fraction and an overlap of recent RSV infection-continue IV diuresis, titrate oxygen possible, patient will need a walking pulse oximetry prior to discharge #2 ventricular paced rhythm with underlying atrial fibrillation-patient is on Coumadin #3 chronic obstructive pulmonary disease-continue aerosol treatments, monitor pulse ox #4 chronic anticoagulation secondary to permanent atrial fib -patient's INR is subtherapeutic, she will need rechecked as an outpatient Total clinical time spent by myself addressing the patient's medical issues, reviewing all of her data, and collaborating with patient's care team: 35 minutes Charges/Coding Visit Charges Inpatient E&M: 30550 Subs Hosp L2
--- NOTE | 2025-01-09 21:29 | CT_ITS ---
EXAM: No acute intracranial hemorrhage, mass, mass effect, midline shift or pathologic extra-axial fluid collection. Confluent supratentorial hypodensity, nonspecific, but likely secondary to moderate chronic microvascular ischemia. Mild parenchymal atrophy with commensurate increase in CSF containing spaces. Patchy white matter hypodensities, patient demographics favor chronic microvascular ischemic changes. Mild paranasal sinus mucosal thickening. Mastoid air cells are clear. The calvarium is grossly intact. Impression; NO ACUTE INTRACRANIAL ABNORMALITY; NO ACUTE INFARCT, INTRACRANIAL HEMORRHAGE OR EXTRA-AXIAL COLLECTION. CHRONIC MICROVASCULAR ISCHEMIA AND INVOLUTIONAL CHANGES. Reading Location: [facility]
--- NOTE | 2025-01-09 21:55 | RAD_ITS ---
PROCEDURE: CHEST 1 VIEW (PORTABLE) REASON FOR EXAM: HYPOXIA TECHNIQUE: Frontal view of the chest. COMPARISON: 01/09/2025 FINDINGS: Status post median sternotomy. Stable left-sided pacemaker atrial ligation device and mitral annular replacement. Heart size is mildly enlarged. Slight interval improvement airspace opacities predominantly right lower lobe. No pneumothorax. No pleural effusion. RAD/Chest 1 View (Portable) IMPRESSION: Interval improvement since prior. Reading Location: [facility]
[2025-01-09] MEDS: Methylprednisolone Sod Succ 40 MG/ML VIAL IV (22:35)
[2025-01-09 23:08] LABS: Pro- Brain NATRIURETIC PEPTIDE 1353 pg/mL (<=1800)
[2025-01-10] VITALS (12 sets, daily range): BP systolic 103–123; BP diastolic 51–68; PULSE 58–76; RESP 16–22; TEMP 36.4–37.1; O2SAT 86–94; BMI 18.9
[2025-01-10 00:34] LABS: Allen Test Positive; Base Excess 5 mmol/L (-2 to +2); Bicarbonate 27.9 mmol/L (22-26); Blood Gas Specimen Type ART; Mode Not entered; O2 Delivery Device Cannula; PO2 64 mmHG (75-100); SITE L Radial; SO2 95 % (95-99); Total Carbon Dioxide 29 mmol/L; pCO2 33.2 mmHg (35-45); pH 7.53 (7.35-7.45)
[2025-01-10] MEDS: Enoxaparin 60 MG/0.6 ML Syringe SC (05:35)
[2025-01-10] MEDS: 0.9% Saline Lock 10 ML Syringe IV ×2 (05:36→12:57)
[2025-01-10] MEDS: Methylprednisolone Sod Succ 40 MG/ML VIAL IV ×2 (05:36→13:02)
[2025-01-10] MEDS: Albuterol 2.5 MG/3 ML VIAL.NEB. INHALATION ×2 (07:16→13:24)
[2025-01-10 08:20] LABS: Anion Gap 15 (5-15); BUN 45 mg/dL (4-19); Calcium,Total 9.7 mg/dL (7.6-11.0); Carbon Dioxide 26.7 mmol/L (21.0-32.0); Chloride 96 mmol/L (98-108); Creatinine, Serum 1.31 mg/dL (0.70-1.20); EST Glomerular Filtration Rate 40 (>60); Estimated Creatinine Clearance 26.04 ml/min (50-250); Glucose 170 mg/dL (70-99); Potassium 4.8 mmol/L (3.3-5.1); Sodium Level 138 mmol/L (133-145)
[2025-01-10 08:52] LABS: International Normalized Ratio 1.4; Prothrombin Time (Protime)PT. 17.4 SECONDS (11.7-14.9)
[2025-01-10] MEDS: Lisinopril 20 MG Tablet PO (09:11)
[2025-01-10] MEDS: Magnesium Chloride 64 MG Delay Rel.Tablet 128 MG PO (09:12)
[2025-01-10] MEDS: Furosemide 40 MG/4 ML Vial IV (09:12)
[2025-01-10] MEDS: Metoprolol(XL)Succ 100 MG Tablet PO (12:55)
--- NOTE | 2025-01-10 14:11 | CPS ---
Patient was walked, at rest on 4L patient began test with an appropiate oxygenation saturation, patient was walked by making a left out of the room and all the way to room 122-123 prior to oxygen saturation dropping to 88% on the 4L increased to 6L (next option on oxygen tank) oxygenation saturation then linda to 92% patient turned around and began to walk back towards room, at room 125 patient took short break standing oxygen saturation still 92% she stated that is about what she walks at home. Patient then continued back to room and placed back on her 4L when in bed oxygen saturation was 95% when leaving room. Patient family member stated that her home oxygenation concentrator only goes up to 5L, updated team of findings.
--- NOTE | 2025-01-10 15:18 | PCM.DC ---
Discharge Instructions Diet Discharge Diet: No restrictions DC O2, CPAP, BIPAP needs Home O2 Discharge instructions: Yes Type of respiratory needs?: Oxygen Oxygen frequency: Continuous Continuous oxygen liters per minute: 4 L and With Ambulation Oxygen liters per minute during Ambulation: 6 L Dressing / Incision Discharge Activity: Return to Normal Activity Weight Bearing Status: Full weight bearing Follow Up Care Test Results: Test results from this visit will be discussed in further detail at your follow-up appointment, if applicable. Discharge Plan Admission Admit Date/Time: 01/07/25 14:23 Primary Reason for Your Visit: CHF, COPD Attending Provider: Tirso Austin Primary Care Provider: Cheyanne Holt Consulting Providers: Ivan Elkins; Deja Ruiz Instructions Additional Instructions / Restrictions: oxygen at 4 Liters at rest, and at 6 Liters when ambulating Discharge Orders/Prescriptions Prescriptions: New furosemide [Lasix] 40 mg tablet 40 mg PO BID Qty: 60 0RF warfarin 2 mg tablet 2 mg PO DAILY Qty: 30 0RF prednisone 20 mg tablet 40 mg PO DAILY Qty: 14 0RF Rx Instructions: two daily for four days, then one daily until finished Continued magnesium oxide 400 mg magnesium tablet 400 mg PO DAILY buprenorphine 20 mcg/hour patch weekly 1 patch transdermal WE gabapentin 300 mg capsule 300 mg PO 4X/DAY PRN (Reason: pain) Patient Comments: PT DOESNT LIKE, ONLY USES NEEDED. fluticasone propion-salmeterol 250-50 mcg/dose blister with device 1 ea INHALATION BID mometasone 50 mcg/actuation spray,non-aerosol 2 spray INTRANASAL DAILY PRN (Reason: nasal congestion) Patient Comments: PT TAKES ONCE IN A WHILE. DOESNT THINK IT HELPS metoprolol succinate 100 mg tablet extended release 24 hr 100 mg PO DAILY PRN (Reason: Blood pressure) Patient Comments: ONLY TAKES IF BP IS HIGHER THAN 150 lisinopril 20 mg tablet 20 mg PO BID Qty: 180 3RF Changed acetaminophen 500 mg Tablet 1,000 mg PO 3XD PRN (Reason: pain) Qty: 1 0RF Discontinued furosemide 40 mg tablet 40 mg PO DAILY PRN (Reason: edema) warfarin 3 mg tablet 1.5 mg PO DAILY Protocol: Dose Management Condition: Thursday Dose/Route: 1.5 mg Instruction: 0.5 x 3 mg tablets Condition: Thursday Dose/Route: 1.5 mg Instruction: 0.5 x 3 mg tablets Condition: Thursday Dose/Route: 1.5 mg Instruction: 0.5 x 3 mg tablets Condition: Thursday Dose/Route: 1.5 mg Instruction: 0.5 x 3 mg tablets Condition: Dose/Route: 1.5 mg Instruction: 0.5 x 3 mg tablets Condition: Thursday Dose/Route: 1.5 mg Instruction: 0.5 x 3 mg tablets Condition: Thursday Dose/Route: 1.5 mg Instruction: 0.5 x 3 mg tablets Protocol Text: Adjustment Start Date: Thursday01/03/25 INR Value: 2.7 INR Date: 01/03/25 Recheck Date: 01/17/25 Referrals / Follow Up: Cheyanne Holt MD [Primary Care Provider] - In 1 Week (get your INR checked next week) Disposition Disposition (needs filled in before D/C Order can be placed): Home, Self Care
--- NOTE | 2025-01-10 15:33 | PCM.DC.SUM ---
Providers Date of Admission: 01/07/25 Date of Discharge: 01/10/25 Primary Care Physician: Dr. Cheyanne Holt MD Reason For Visit: CHF EXACERBATION WITH HYPOXIA Diagnosis Discharge Diagnosis (1) Acute exacerbation of CHF (congestive heart failure): Status: Chronic Code(s): I50.9 - Heart failure, unspecified (2) Hypoxia: Status: Acute Code(s): R09.02 - Hypoxemia Plan 1. Acute on chronic hypoxic respiratory failure secondary to acute exacerbation of congestive heart failure with preserved ejection fraction and an overlap of recent RSV infection-continue IV diuresis, titrate oxygen possible, patient will need a walking pulse oximetry prior to discharge #2 ventricular paced rhythm with underlying atrial fibrillation-patient is on Coumadin #3 chronic obstructive pulmonary disease-continue aerosol treatments, monitor pulse ox #4 chronic anticoagulation secondary to permanent atrial fib -patient's INR is subtherapeutic, she will need rechecked as an outpatient Medications at Discharge Home Medications magnesium oxide 400 mg PO DAILY supplement 04/06/19 lisinopril 20 mg tablet 20 mg PO BID #180 tabs 12/30/23 buprenorphine 20 mcg/hour weekly transdermal patch 1 patch transdermal WE pain 01/07/25 fluticasone 250 mcg-salmeterol 50 mcg/dose blistr powdr for inhalation 1 ea inhalation BID 01/07/25 gabapentin 300 mg capsule 300 mg PO 4X/DAY PRN pain 01/07/25 metoprolol succinate 100 mg tablet,extended release 24 hr 100 mg PO DAILY PRN Blood pressure 01/07/25 mometasone 50 mcg/actuation nasal spray 2 spray intranasal DAILY PRN nasal congestion 01/07/25 acetaminophen 500 mg tablet 1,000 mg (2 x 500 mg) PO 3XD PRN pain #1 TAB 01/10/25 furosemide 40 mg tablet (Lasix) 40 mg PO BID #60 tabs 01/10/25 prednisone 20 mg tablet 40 mg (2 x 20 mg) PO DAILY #14 tabs 01/10/25 warfarin 2 mg tablet 2 mg PO DAILY #30 tabs 01/10/25 Hospital Course Operations None Procedures 2-D Echocardiogram Summary of Care Provided Minutes Spent on Discharge: 31 Hospital Course: C5-year-old white female was seen in the emergency room at [facility] with complaints of cough and shortness of breath. She had been diagnosed earlier in the month with RSV infection, she declined admission at that point and went home from the emergency room. Patient has home O2 at home but wears it at night. She had been given prednisone from the emergency room and had been feeling better up until 48 hours prior to going to the ER again. Labs revealed an increased white blood cell count of 14.6, INR was 1.2, patient's chemistry profile was unremarkable. Patient's Yanni beta natruretic peptide was elevated at 5182. Chest x-ray showed findings of CHF including left pleural effusion and evidence of emphysema. Patient was admitted to PCU, pulse ox was monitored and patient was placed on IV Lasix and aerosol treatments were given to the patient. Patient had an echocardiogram performed which showed a normal ejection fraction. Patient's respiratory status improved slowly during her hospitalization, on the day of her discharge from the hospital, patient required 4 L of oxygen at rest and 6 L of oxygen with ambulation. On 01/10/2025, patient was seen and examined: On examination she appeared in good health and spirits, she does not appear to be in any distress. Vital signs as documented. Skin warm and dry and without overt rashes. Neck without JVD, thyroid appears normal, trachea is midline, neck is supple. Lungs clear, normal air movement was noted. Heart exam notable for regular rhythm, normal sounds and absence of murmurs, rubs or gallops. Abdomen unremarkable and without evidence of organomegaly, masses, or abdominal aortic enlargement, bowel sounds are present in all 4 quadrants, no abdominal tenderness was noted. Extremities nonedematous, no cyanosis was noted, no clubbing was noted. Neuro: Cranial nerves II through XII are grossly intact, no focal motor deficits were noted, sensation to light touch and pinprick is intact, motor exam 5/5 throughout. Psych: Patient is alert and oriented x3, she does not appear anxious or depressed, she does not appear agitated. Patient was discharged home in stable condition on 01/10/2025 Weight / BMI Weight Weight: 53.5 kg Body Mass Index (BMI) 18.9 ABG / Lab / Microbiology Data 01/08/25 07:52 01/10/25 07:03 Laboratory: Laboratory Results - last 24 hr 01/09/25 22:38: NT pro BNP II 1353 01/10/25 07:03: PT 17.4 H, INR 1.4, Sodium 138, Potassium 4.8, Chloride 96 L, Carbon Dioxide 26.7, Anion Gap 15, BUN 45 H, Creatinine 1.31 H, Estim Creat Clear Calc 26.04 L, Est GFR (MDRD) Non-Af 40 L, BUN/Creatinine Ratio 34.0 H, Glucose 170 H, Calcium 9.7 ABG: ABG 01/10/25 00:31 Specimen Type ART Sample Site L Radial pH 7.53 H Bicarbonate Actual 27.9 H Total CO2 29 Base Excess 5 H O2 Saturation 95 O2 % 6.0 ABG pCO2 33.2 L ABG pO2 64 L Jose Test Positive O2 Delivery Device Cannula Vent Mode Not entered Radiography Diagnostic Testing: Radiology Impression Chest X-Ray 01/09/25 21:55 IMPRESSION: Interval improvement since prior. Reading [facility] Instructions Discharge Diet: No restrictions Weight Bearing Status: Full weight bearing DC O2, CPAP, BIPAP Needs Home O2 Discharge instructions: Yes Type of respiratory needs?: Oxygen Oxygen frequency: Continuous Continuous oxygen liters per minute: 4 L and With Ambulation Oxygen liters per minute during Ambulation: 6 L DC home with Oxygen: Yes Home O2 MD Review: I have reviewed the oxygen testing, and the patient qualifies for home oxygen equipment and portability. The patient is mobile in the home and the community. Meaningful Use Info Meaningful Use Meaningful Use Diagnoses (Choose all that apply): None applicable Ischemic Stroke Statin Dosing Therapy Reference: STATIN DOSE THERAPY REFERENCE: * Patients > 75 years receive moderate or high dose statin therapy. * Patients 75 years or YOUNGER should receive HIGH intensity statin dose unless contraindicated. You will be required to document reason for non-treatment if statin daily dose does not meet guidelines. HIGH DOSE STATIN THERAPY DAILY Atorvastatin > than or = to 40 mg Rosuvastatin > than or = to 20 mg Amlodipine + Atorvastatin > than or = to 2.5/40 mg Ezetimibe + Simvastatin 10/80 mg Simvastatin 80mg Discharge Plan Admission Admit Date/Time: 01/07/25 14:23 Primary Reason for Your Visit: CHF, COPD Attending Provider: Tirso Austin Primary Care Provider: Cheyanne Holt Consulting Providers: Ivan Elkins; Deja Ruiz Instructions Additional Instructions / Restrictions: oxygen at 4 Liters at rest, and at 6 Liters when ambulating Discharge Orders/Prescriptions Prescriptions: New furosemide [Lasix] 40 mg tablet 40 mg PO BID Qty: 60 0RF warfarin 2 mg tablet 2 mg PO DAILY Qty: 30 0RF prednisone 20 mg tablet 40 mg PO DAILY Qty: 14 0RF Rx Instructions: two daily for four days, then one daily until finished Continued magnesium oxide 400 mg magnesium tablet 400 mg PO DAILY buprenorphine 20 mcg/hour patch weekly 1 patch transdermal WE gabapentin 300 mg capsule 300 mg PO 4X/DAY PRN (Reason: pain) Patient Comments: PT DOESNT LIKE, ONLY USES NEEDED. fluticasone propion-salmeterol 250-50 mcg/dose blister with device 1 ea INHALATION BID mometasone 50 mcg/actuation spray,non-aerosol 2 spray INTRANASAL DAILY PRN (Reason: nasal congestion) Patient Comments: PT TAKES ONCE IN A WHILE. DOESNT THINK IT HELPS metoprolol succinate 100 mg tablet extended release 24 hr 100 mg PO DAILY PRN (Reason: Blood pressure) Patient Comments: ONLY TAKES IF BP IS HIGHER THAN 150 lisinopril 20 mg tablet 20 mg PO BID Qty: 180 3RF Changed acetaminophen 500 mg Tablet 1,000 mg PO 3XD PRN (Reason: pain) Qty: 1 0RF Discontinued furosemide 40 mg tablet 40 mg PO DAILY PRN (Reason: edema) warfarin 3 mg tablet 1.5 mg PO DAILY Protocol: Dose Management Condition: Thursday Dose/Route: 1.5 mg Instruction: 0.5 x 3 mg tablets Condition: Thursday Dose/Route: 1.5 mg Instruction: 0.5 x 3 mg tablets Condition: Thursday Dose/Route: 1.5 mg Instruction: 0.5 x 3 mg tablets Condition: Thursday Dose/Route: 1.5 mg Instruction: 0.5 x 3 mg tablets Condition: Dose/Route: 1.5 mg Instruction: 0.5 x 3 mg tablets Condition: Thursday Dose/Route: 1.5 mg Instruction: 0.5 x 3 mg tablets Condition: Thursday Dose/Route: 1.5 mg Instruction: 0.5 x 3 mg tablets Protocol Text: Adjustment Start Date: Thursday01/03/25 INR Value: 2.7 INR Date: 01/03/25 Recheck Date: 01/17/25 Referrals / Follow Up: Cheyanne Holt MD [Primary Care Provider] - 01/12/25 9:20 am (get your INR checked next week Appointment is with Jyoti Bales N.P.) Disposition Disposition (needs filled in before D/C Order can be placed): Home, Self Care Charges/Coding Visit Charges Inpatient E&M: 68010 Disch Hosp >30min
--- NOTE | 2025-01-10 16:04 | CASEMGMT ---
RN CM obtained new order for O2 concentrator, current concentrator only goes up to 5L. [place] [facility] [facility] as she is taking pt to her house in [place] for a short stay until she is stronger and able to manage on her own.
[2025-01-10] MEDS: Warfarin 1 MG, Warfarin 0.5 MG 1.5 MG PO (16:42)
--- NOTE | 2025-01-10 18:42 | CASEMGMT ---
Social work hydrogen power plant manager Hannah called ED SW to explain patient's current situation, stating patient had the new O2 concentrator, but needed a portable tank. Harper asked this SW what options were possible as patient needed to go to [place] with patient's daughter. This SW called Lizette LEES who stated patient could receive a portable tank from [facility]'s stock with [place] and Lizette stated intent to inform [place] tomorrow. Lizette stated this SW needed to share with patient's family the need to get straight to [place] as the portable tank would not provide much extra. The above was stated to hydrogen power plant manager Hannah who was passing along to patient and patient's daughter. No further needs identified. Rose Fish, WHIPPER BEATER, CURLING MACHINE OPERATOR
--- NOTE | 2025-01-11 08:26 | CASEMGMT ---
Email to [facility] to make aware that pt took a portable tank from stock last evening upon dc.
== END 2025-01-10 19:43 | disposition home or self-care (01) | DRG 291 ==
LOC: ED 12:27 → PCU 14:48
PROVIDERS: Internal Medicine; Physician Assistant; Student in an Organized Health Care Education/Training Program; Admitting Provider Hospitalist; Emergency Provider Emergency Medicine; PCP Internal Medicine; Referring Provider Hospitalist; Visit Provider Internal Medicine
DX: I11.0 Hypertensive heart disease with heart failure (principal); I50.33 Acute on chronic diastolic (congestive) heart failure; J96.21 Acute and chronic respiratory failure with hypoxia; I48.21 Permanent atrial fibrillation; I42.1 Obstructive hypertrophic cardiomyopathy; G62.9 Polyneuropathy, unspecified; E78.5 Hyperlipidemia, unspecified; J43.9 Emphysema, unspecified; R79.1 Abnormal coagulation profile; T50.1X6A Underdosing of loop [high-ceiling] diuretics, initial encounter; Z91.148 Patient's other noncompliance with medication regimen for other reason; G89.29 Other chronic pain; Z79.01 Long term (current) use of 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; Z79.51 Long term (current) use of inhaled steroids; Z79.891 Long term (current) use of opiate analgesic; Z79.899 Other long term (current) drug therapy; Z87.891 Personal history of nicotine dependence; Z95.0 Presence of cardiac pacemaker
CPT/HCPCS: 36415; 36600; 70450; 71045; 71046; 80048; 82803; 83880; 84484; 85025; 85027; 85610; 93005; 93306; 94640; 94668; 94762; 97162; 97530; 97802; 99284; A4216; J1940

== ENCOUNTER → 2025-01-17 | Outpatient (CLI) | payer MEDICARE, SELFPAY ==
[2025-01-17 12:03] LABS: International Normalized Ratio 1.6; Prothrombin Time (Protime)PT. 18.9 SECONDS (11.7-14.9)
== END | disposition home or self-care (01) ==
LOC: LAB 08:55
PROVIDERS: PCP Internal Medicine; Visit Provider Internal Medicine Cardiovascular Disease
DX: I48.91 Unspecified atrial fibrillation (principal); I50.32 Chronic diastolic (congestive) heart failure; R79.1 Abnormal coagulation profile; Z79.01 Long term (current) use of 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
CPT/HCPCS: 36415; 85610

== ENCOUNTER → 2025-01-19 | Outpatient (CLI) | payer MEDICARE, SELFPAY ==
[2025-01-19 11:34] LABS: International Normalized Ratio 1.3; Prothrombin Time (Protime)PT. 15.9 SECONDS (11.7-14.9)
== END | disposition home or self-care (01) ==
LOC: LAB 08:16
PROVIDERS: PCP Internal Medicine; Visit Provider Internal Medicine Cardiovascular Disease
DX: I48.91 Unspecified atrial fibrillation (principal); I50.32 Chronic diastolic (congestive) heart failure; Z79.01 Long term (current) use of 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; R79.1 Abnormal coagulation profile
CPT/HCPCS: 36415; 85610

== ENCOUNTER 2025-01-20 21:46 | Emergency (ER) | payer MEDICARE, SELFPAY ==
[2025-01-20 21:48] VITALS: BP 133/73; PULSE 60; RESP 18; TEMP 36.8; O2SAT 96; BMI 20.5
--- NOTE | 2025-01-20 22:12 | EKG12_ITS ---
Test Reason : CP Blood Pressure : */* mmHG Vent. Rate : 60 BPM Atrial Rate : 366 BPM P-R Int : * ms QRS Dur : 148 ms QT Int : 534 ms P-R-T Axes : 87 -73 105 degrees QTcB Int : 534 ms Ventricular-paced rhythm Abnormal ECG Confirmed by CLAUDIA FORTUNE, KACIE ([id number]), index editor NAYELI NEGRON ([id number]) on 01/23/2025 6:45:25 AM Referred By: PONCHO Confirmed By: KACIE TAYLOR MD
[2025-01-20 22:20] VITALS: O2SAT 95
[2025-01-20 22:21] LABS: Absolute Lymphocyte Count 1.83 X10^3/uL (0.83-4.51); Absolute Neutrophil Count 14.5 X10^3/uL (2.0-7.7); Basophil# 0.06 X10^3/uL; Basophil% 0.3 % (0-1); Eosinophil# 0.02 X10^3/uL; Eosinophils% 0.1 % (0-5); Hematocrit 47.5 % (37-47); Lymphocyte # 1.83 X10^3/ul (0.83-4.51); Lymphocyte % 10.5 % (19-41); Mean Corp Hgb Conc 31.6 g/dL (32-36); Mean Corpuscular Hgb 26.8 pg (27.0-32.0); Mean Platelet Vol. 10.9 fl (6.2-12.0); Monocyte# 0.73 X10^3/uL; Monocyte% 4.2 % (0-10); NRBC Flagged by Analyzer 0 % (0-5); Neutrophil # 14.51 X10^3/uL (2.7-7.7); Neutrophil % 83.6 % (47-70); Platelet Count 389 K/mm3 (150-450); RBC Distribution Width SD 48.8 fl (35.1-43.9); Red Blood Count 5.59 M/mm3 (4.2-5.4); White Blood Count 17.4 K/mm3 (4.4-11.0)
--- NOTE | 2025-01-20 22:25 | RAD_ITS ---
PROCEDURE: CHEST PA AND LATERAL 01/20/2025 REASON FOR EXAM: CHEST PAIN/SOB TECHNIQUE: Frontal and lateral views of the chest. COMPARISON: Chest radiograph dated 01/09/2025 FINDINGS: Sternotomy wires are present. Left-sided cardiac pacemaker. The heart size is normal. The mediastinal contour is unremarkable. The lungs are clear. The bones are unremarkable. RAD/Chest PA and Lateral IMPRESSION: NO ACUTE FINDINGS. Reading Location: [facility]
[2025-01-20 22:30] LABS: International Normalized Ratio 1.4; Partial Thromboplast Time 26.6 Seconds (24.1-36.2)
[2025-01-20 22:53] LABS: Anion Gap 13 (5-15); BUN 48 mg/dL (4-19); BUN/Creat Ratio 47.4 RATIO (10-20); Calcium,Total 9.6 mg/dL (7.6-11.0); Carbon Dioxide 27.4 mmol/L (21.0-32.0); Chloride 101 mmol/L (98-108); Creatinine, Serum 1.01 mg/dL (0.70-1.20); EST Glomerular Filtration Rate 54 (>60); Estimated Creatinine Clearance 36.36 ml/min (50-250); Glucose 112 mg/dL (70-99); Potassium 4.6 mmol/L (3.3-5.1); Pro- Brain NATRIURETIC PEPTIDE 3578 pg/mL (<=1800); Sodium Level 141 mmol/L (133-145); Troponin T High Sensitivity 33 ng/L (<=14)
--- NOTE | 2025-01-20 22:53 | EDS_ITS ---
HPI History of Present Illness Chief Complaint: Chest Pain Narrative Narrative: Chief complaint and HPI: Shortness of breath and chest heaviness. 84-year-old female with past medical history of proximal atrial fibrillation on warfarin, HTN, HLD, pacemaker, CHF, COPD presents for evaluation of shortness of breath and chest heaviness. Patient was just discharged from our hospital on 01/10 for CHF exacerbation. Patient states that she was doing well until this afternoon when she developed shortness of breath and some chest pressure. She states her biggest complaint is shortness of breath. She endorses cough. She denies any fever, chills, URI symptoms, abdominal pain, nausea, vomiting, dysuria. She received aspirin prior to arrival. She follows with Dr. Souza. On chart review, discharge summary from 01/10 was reviewed. Patient was admitted for acute on chronic hypoxic respiratory failure secondary to CHF and recent RSV infection. She was diuresed. She had an echocardiogram on 01/09 that showed EF of 70%. She had a stress test in 2020. On the day of her discharge patient was requiring 4 L of oxygen at rest and 6 L of oxygen with ambulation. Patient states since being discharged home. She has not been wearing any oxygen as she states that she does not like wearing it. Review of systems: See HPI Medications: As listed on the chart Allergies: As listed on the chart PFSH: Per chart Vital signs: As listed on the chart. Reviewed. Physical exam: Gen: A&O x3, NAD Head: Normocephalic, atraumatic Eyes: No sclera icterus, conjunctiva clear ENT: Moist mucous membranes Neck: Trachea midline, No JVD CV: RRR, no murmurs, no peripheral edema Resp: Lungs CTA BL, no w/r/c GI: Abd soft, non-distended, non-tender, no r/r/g Musc: Full ROM, no deformity Skin: Warm, dry Neuro: Alert, oriented, grossly intact, sensation intact Psych: Cooperative, appropriate mood and affect [facility] Medical History Subtherapeutic international normalized ratio (INR) Hypoxia Acute exacerbation of CHF (congestive heart failure) Congestive heart failure (CHF) Chronic pain Pacemaker Urinary retention Decreased cardiac ejection fraction Anticoagulated on Coumadin Paroxysmal atrial fibrillation Fall Back pain Essential hypertension Former smoker On home oxygen therapy Presence of permanent cardiac pacemaker (~12/10/21) Sick sinus syndrome Polyp, sigmoid colon Persistent atrial fibrillation Atrial fibrillation LBBB (left bundle branch block) Hypertrophic obstructive cardiomyopathy (HOCM) Long QT interval Hyperlipidemia Chronic diastolic heart failure COPD (chronic obstructive pulmonary disease) Nonrheumatic mitral (valve) insufficiency Non-Hodgkin lymphoma Bladder cancer Atrial flutter with rapid ventricular response Home Medications ?Medication ?Instructions ?Recorded ?Last Taken ?Type magnesium oxide 400 mg PO DAILY supplement 0 04/06/19 01/06/25 History buprenorphine 20 mcg/hour weekly 1 patch transdermal W E pain 01/07/25 01/20/25 History transdermal patch fluticasone 250 mcg-salmeterol 50 1 ea inhalation BID 01/07/25 01/06/25 History mcg/dose blistr powdr for inhalation gabapentin 300 mg capsule 300 mg PO 4X/DAY PRN pain Unknown History metoprolol succinate 100 mg 100 mg PO DAILY PRN Blood pressure 01/07/25 Unknown History tablet,extended release 24 hr mometasone 50 mcg/actuation nasal 2 spray intranasal D AILY PRN nasal 01/07/25 Unknown History spray congestion acetaminophen 500 mg tablet 1,000 mg (2 x 500 mg) PO 3 XD PRN 01/10/25 01/07/25 Rx pain #1 TAB furosemide 40 mg tablet (Lasix) 40 mg PO BID #60 tabs 01/10/25 Unknown Rx prednisone 20 mg tablet 40 mg (2 x 20 mg) PO DAILY # 14 tabs 01/10/25 01/20/25 Rx warfarin 2 mg tablet 2 mg PO DAILY #30 tabs 01/10 Unknown Rx lisinopril 20 mg tablet 20 mg PO DAILY 01/20/25 Unkn own History Allergy/AdvReac Type Severity Reaction Status Date / Time allopurinol AdvReac Mild upset gi Verified 01/20/25 21:47 tramadol AdvReac dizzy Verified 01/20/25 21:47 Family History Father Heart disease Hypertension Mother No cardiac disease Surgical History H/O cardiac radiofrequency ablation History of mitral valve repair (~07/30/18) History of ventricular septal myectomy (~07/30/18) History of left heart catheterization (LHC) (~11/30/17) History of bladder surgery History of cardioversion (~04/25/20) Social History household members: none Smoking Status: Former smoker pack-years: 58 how long ago did patient quit smokin years ago alcohol intake: never substance use type: does not use caffeine: No what type of physical activity do you participate in: walking EXAM Physical Exam Const Vital Signs: 01/20/25 21:48 01/20/25 21:52 01/20/25 22:20 Temperature 98.2 F Temperature Source Oral Pulse Rate 60 Respiratory Rate 18 Respiratory Effort Normal Non-Labored Respiratory Pattern Normal Blood Pressure 133/73 H Blood Pressure Mean 93 Pulse Ox 96 95 Oxygen Delivery Method Room Air Room Air 01/20/25 23:00 01/21/25 00:00 Temperature Temperature Source Pulse Rate 58 L 60 Respiratory Rate 18 18 Respiratory Effort Respiratory Pattern Blood Pressure 134/63 H 159/77 H Blood Pressure Mean 86 104 Pulse Ox 97 95 Oxygen Delivery Method Room Air Room Air MDM MDM MDM Narrative Medical decision making narrative: 84-year-old female with past medical history of proximal atrial fibrillation on warfarin, HTN, HLD, pacemaker, CHF, COPD presents for evaluation of shortness of breath and chest heaviness. Patient was just recently admitted to the hospital for acute hypoxia secondary to RSV infection as well as CHF exacerbation. She was discharged home on oxygen. She was supposed to wear 4 L at rest and 6 L with ambulation. Patient states she has not been wearing oxygen because she does not want to. She has not been checking her pulse ox at home. On presentation, patient is 96 to 95% on room air. Her vitals are stable other than some mild hypertension. She received aspirin via EMS prior to arrival. Differential diagnosis includes but is not limited to viral illness, pneumonia, CHF exacerbation, ACS, less likely PE given that she is on warfarin, arrhythmia. Will interrogate her pacemaker. Cardiac/respiratory workup ordered. CBC with leukocytosis of 17.4. This is elevated from discharge on 01/08 of 14.9. However, patient has been on steroids. Her last dose was yesterday. This is likely the cause of her leukocytosis. No anemia. INR 1.4. This is subtherapeutic for her atrial fibrillation. This will need to be rechecked and addressed outpatient. D-dimer unremarkable. BMP relatively unremarkable. BNP 3578. Patient is not overtly fluid overloaded on physical exam or chest x-ray. She is not requiring oxygen. This is down from 01/07 at 5182 however increased from 01/12 at 1353. She is on Lasix 40 mg twice daily. Troponin 33. Troponin was 27 on 01/07. Will obtain delta 2-hour troponin. Patient's pacemaker was interrogated. She had no events. She has not had any events since December 2022. EKG: Interpreted by me/EM physician: EKG shows ventricular paced rhythm. Heart rate 60. This was compared to previous EKG and similar. Diagnostic: Interpreted by me/EM physician: Lab Data Labs: Laboratory Results - last 24 hr 01/20/25 21:50 WBC 17.4 H RBC 5.59 H Hgb 15.0 Hct 47.5 H MCV 85.0 MCH 26.8 L MCHC 31.6 L RDW Std Deviation 48.8 H RDW Coeff of Neelima 16.0 H Plt Count 389 MPV 10.9 Immature Gran % (Auto) 1.300 H Neut % (Auto) 83.6 H Lymph % (Auto) 10.5 L [place] % (Auto) 4.2 Eos % (Auto) 0.1 Baso % (Auto) 0.3 Absolute Neuts (auto) 14.5 H Absolute Lymphs (auto) 1.83 Nucleated RBC % 0 PT 17.0 H INR 1.4 APTT 26.6 D-Dimer Quant (PE/DVT) < 0.27 L Sodium 141 Potassium 4.6 Chloride 101 Carbon Dioxide 27.4 Anion Gap 13 BUN 48 H Creatinine 1.01 Estim Creat Clear Calc 36.36 L Est GFR (MDRD) Non-Af 54 L BUN/Creatinine Ratio 47.4 H Glucose 112 H Calcium 9.6 Troponin T High Sens 33 H D NT pro BNP II 3578 H Radiography Diagnostic Testing: Clinical Impression(s) from Imaging Studies Chest X-Ray 01/20/25 22:25 IMPRESSION: NO ACUTE FINDINGS. Reading [facility] Triage Chief Complaint: Chest Pain ED Provider: Hunter Meier Dx/Rx/DC Orders Prescriptions: No Action magnesium oxide 400 mg magnesium tablet 400 mg PO DAILY lisinopril 20 mg tablet 20 mg PO DAILY buprenorphine 20 mcg/hour patch weekly 1 patch transdermal WE gabapentin 300 mg capsule 300 mg PO 4X/DAY PRN (Reason: pain) Patient Comments: PT DOESNT LIKE, ONLY USES NEEDED. fluticasone propion-salmeterol 250-50 mcg/dose blister with device 1 ea INHALATION BID mometasone 50 mcg/actuation spray,non-aerosol 2 spray INTRANASAL DAILY PRN (Reason: nasal congestion) Patient Comments: PT TAKES ONCE IN A WHILE. DOESNT THINK IT HELPS metoprolol succinate 100 mg tablet extended release 24 hr 100 mg PO DAILY PRN (Reason: Blood pressure) Patient Comments: ONLY TAKES IF BP IS HIGHER THAN 150 furosemide [Lasix] 40 mg tablet 40 mg PO BID Qty: 60 0RF warfarin 2 mg tablet 2 mg PO DAILY Qty: 30 0RF Protocol: Dose Management Condition: Thursday Dose/Route: 2 mg Instruction: 1 x 2 mg tablet Condition: Thursday Dose/Route: 3 mg Instruction: 1.5 x 2 mg tablets Condition: Thursday Dose/Route: 2 mg Instruction: 1 x 2 mg tablet Condition: Thursday Dose/Route: 2 mg Instruction: 1 x 2 mg tablet Condition: Dose/Route: 2 mg Instruction: 1 x 2 mg tablet Condition: Thursday Dose/Route: 2 mg Instruction: 1 x 2 mg tablet Condition: Thursday Dose/Route: 2 mg Instruction: 1 x 2 mg tablet Protocol Text: Adjustment Start Date: 01/19/25 INR Value: 1.3 INR Date: 01/19/25 Recheck Date: 01/26/25 prednisone 20 mg tablet 40 mg PO DAILY Qty: 14 0RF Patient Comments: Pt reports taking the last pill today (01/20/2025) Rx Instructions: two daily for four days, then one daily until finished acetaminophen 500 mg Tablet 1,000 mg PO 3XD PRN (Reason: pain) Qty: 1 0RF Primary Care Provider: Cheyanne Holt Referrals: Cheyanne Holt MD [Primary Care Provider] - Print Language: Upper Sorbian
[2025-01-20 23:00] VITALS: BP 134/63; PULSE 58; RESP 18; O2SAT 97
[2025-01-20 23:07] LABS: D-Dimer Quantitative (DVT/PE) < 0.27 FEU/ug/m (0.27-0.49)
[2025-01-21] VITALS: BP 159/77; PULSE 60; RESP 18; O2SAT 95
[2025-01-21 01:00] VITALS: BP 139/82; PULSE 60; RESP 17; O2SAT 95
[2025-01-21 01:00] LABS: Troponin T High Sens 2 HR 37 ng/L (<=14)
[2025-01-21 01:37] VITALS: O2SAT 97
[2025-01-21 01:56] VITALS: BP 139/82; PULSE 60; RESP 14; TEMP 36.6; O2SAT 96
== END 2025-01-21 02:00 | disposition home or self-care (01) ==
PROVIDERS: Emergency Provider Surgery; PCP Internal Medicine; Visit Provider Surgery
DX: R09.02 Hypoxemia (principal); I11.0 Hypertensive heart disease with heart failure; I50.32 Chronic diastolic (congestive) heart failure; J44.9 Chronic obstructive pulmonary disease, unspecified; I48.0 Paroxysmal atrial fibrillation; I42.1 Obstructive hypertrophic cardiomyopathy; T41.5X6A Underdosing of therapeutic gases, initial encounter; Z91.148 Patient's other noncompliance with medication regimen for other reason; R79.1 Abnormal coagulation profile; Z11.52 Encounter for screening for COVID-19; R07.89 Other chest pain; R06.02 Shortness of breath; E78.5 Hyperlipidemia, unspecified; Z79.01 Long term (current) use of 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; Z79.899 Other long term (current) drug therapy; Z87.891 Personal history of nicotine dependence; Z95.0 Presence of cardiac pacemaker
CPT/HCPCS: 71046; 80048; 83880; 84484; 85025; 85379; 85610; 85730; 87631; 93005; 99285; A4216

== ENCOUNTER 2025-01-25 11:00 | Emergency (ER) | payer MEDICARE, SELFPAY ==
[2025-01-25 11:01] VITALS: BP 147/110; PULSE 59; RESP 16; TEMP 36.4; O2SAT 99
--- NOTE | 2025-01-25 11:21 | EKG12_ITS ---
Test Reason : CP Blood Pressure : */* mmHG Vent. Rate : 60 BPM Atrial Rate : 60 BPM P-R Int : * ms QRS Dur : 154 ms QT Int : 468 ms P-R-T Axes : 89 -77 107 degrees QTcB Int : 468 ms Ventricular-paced rhythm Abnormal ECG Confirmed by CLAUDIA FORTUNE, KACIE ([id number]), online content editor NAYELI NEGRON ([id number]) on 01/26/2025 8:03:52 AM Referred By: VIRI/JAK Confirmed By: KACIE TAYLOR MD
[2025-01-25 11:42] LABS: Absolute Lymphocyte Count 1.47 X10^3/uL (0.83-4.51); Absolute Neutrophil Count 8.6 X10^3/uL (2.0-7.7); Basophil# 0.09 X10^3/uL; Basophil% 0.8 % (0-1); Eosinophil# 0.15 X10^3/uL; Eosinophils% 1.3 % (0-5); Hematocrit 43.7 % (37-47); Hemoglobin 13.9 g/dL (12.0-15.0); Lymphocyte # 1.47 X10^3/ul (0.83-4.51); Mean Corp Hgb Conc 31.8 g/dL (32-36); Mean Corpuscular Hgb 26.5 pg (27.0-32.0); Mean Corpuscular Volume 83.2 fL (81-99); Mean Platelet Vol. 10.4 fl (6.2-12.0); Monocyte# 0.87 X10^3/uL; Monocyte% 7.7 % (0-10); NRBC Flagged by Analyzer 0 % (0-5); Neutrophil # 8.62 X10^3/uL (2.7-7.7); Neutrophil % 76.6 % (47-70); Platelet Count 205 K/mm3 (150-450); RBC Distribution Width CV 16.3 % (11.6-14.6); RBC Distribution Width SD 48.3 fl (35.1-43.9); Red Blood Count 5.25 M/mm3 (4.2-5.4); White Blood Count 11.3 K/mm3 (4.4-11.0)
--- NOTE | 2025-01-25 11:45 | RAD_ITS ---
PROCEDURE: CHEST PA AND LATERAL 01/25/2025 REASON FOR EXAM: CHEST PAIN TECHNIQUE: Frontal and lateral views of the chest. COMPARISON: Chest x-ray of 01/20/2025. RAD/Chest PA and Lateral IMPRESSION: Prior sternotomy again noted. Postsurgical changes of the heart appear stable, with a stable contour. No evidence of cardiomegaly. Moderately severe lung hyperinflation with increased interstitial markings most prominent in the lower lung zones, consistent with chronic lung disease. No evidence of pulmonary edema. Mild discoid atele ctasis or scarring is seen in the left inferior chest. No pleural effusion or pneumothorax is seen. Generalized osteopenia is seen. Reading Location: [id number]
[2025-01-25 11:54] LABS: International Normalized Ratio 1.1; Prothrombin Time (Protime)PT. 13.9 SECONDS (11.7-14.9)
[2025-01-25 12:00] VITALS: BP 133/68; PULSE 60; RESP 16; O2SAT 97
--- NOTE | 2025-01-25 12:07 | EX.ED.DYSGE1 ---
HPI History of Present Illness Chief Complaint: Chest Pain Informant: patient Narrative Narrative: Patient is a 85-year-old female with past medical history of a flutter status post pacemaker placement currently on Coumadin as well as hypertension and congestive heart failure. She states she is supposed to wear oxygen at night and last night she went to bed with it on but it popped off and when she awoke she was no longer on the oxygen and she noticed she had some generalized anterior chest discomfort. She states she has been evaluated for a cardiac issue recently but the recurrent pain concerned her and therefore she comes in for evaluation. Patient does admit to feeling slight short of breath with this but does have a history of COPD and otherwise denies any nausea vomiting or diaphoresis [facility] Medical History Subtherapeutic international normalized ratio (INR) Hypoxia Acute exacerbation of CHF (congestive heart failure) Congestive heart failure (CHF) Chronic pain Pacemaker Urinary retention Decreased cardiac ejection fraction Anticoagulated on Coumadin Paroxysmal atrial fibrillation Fall Back pain Essential hypertension Former smoker On home oxygen therapy Presence of permanent cardiac pacemaker (~12/10/21) Sick sinus syndrome Polyp, sigmoid colon Persistent atrial fibrillation Atrial fibrillation LBBB (left bundle branch block) Hypertrophic obstructive cardiomyopathy (HOCM) Long QT interval Hyperlipidemia Chronic diastolic heart failure COPD (chronic obstructive pulmonary disease) Nonrheumatic mitral (valve) insufficiency Non-Hodgkin lymphoma Bladder cancer Atrial flutter with rapid ventricular response Home Medications ?Medication ?Instructions ?Recorded ?Last Taken ?Type magnesium oxide 400 mg PO DAILY supplement 04/06/19 01/06/25 History buprenorphine 20 mcg/hour weekly 1 patch transdermal WE pain 01/07/25 01/20/25 History transdermal patch fluticasone 250 mcg-salmeterol 50 1 ea inhalation BID 01/07/25 01/06/25 History mcg/dose blistr powdr for inhalation gabapentin 300 mg capsule 300 mg PO 4X/DAY PRN pain 01/07/25 Unknown History metoprolol succinate 100 mg 100 mg PO DAILY PRN Blood pressure 01/07/25 Unknown History tablet,extended release 24 hr mometasone 50 mcg/actuation nasal 2 spray intranasal DAILY PRN nasal 01/07/25 Unknown History spray congestion acetaminophen 500 mg tablet 1,000 mg (2 x 500 mg) PO 3XD PRN 01/10/25 01/07/25 Rx pain #1 TAB furosemide 40 mg tablet (Lasix) 40 mg PO BID #60 tabs 01/10/25 Unknown Rx prednisone 20 mg tablet 40 mg (2 x 20 mg) PO DAILY #14 tabs 01/10/25 01/20/25 Rx warfarin 2 mg tablet 2 mg PO DAILY #30 tabs 01/10/25 Unknown Rx lisinopril 20 mg tablet 20 mg PO DAILY 01/20/25 Unknown History prednisone 20 mg tablet 20 mg PO DAILY 5 days #5 tabs 01/25/25 Unknown Rx Allergy/AdvReac Type Severity Reaction Status Date / Time allopurinol AdvReac Mild upset gi Verified 01/25/25 11:42 tramadol AdvReac dizzy Verified 01/25/25 11:42 Family History Father Heart disease Hypertension Mother No cardiac disease Surgical History H/O cardiac radiofrequency ablation History of mitral valve repair (~07/30/18) History of ventricular septal myectomy (~07/30/18) History of left heart catheterization (LHC) (~11/30/17) History of bladder surgery History of cardioversion (~04/25/20) Social History household members: none Smoking Status: Former smoker pack-years: 58 how long ago did patient quit smokin years ago alcohol intake: never substance use type: does not use caffeine: No what type of physical activity do you participate in: walking ROS ROS ED Constitutional Constitutional ED: Denies chills or fever(s) Eyes Eyes: Denies blurry vision or change in vision ENT ENT ED: Denies sore throat Cardiovascular Cardiovascular: Reports chest pain; Denies palpitations or racing heartbeat Respiratory/Chest Respiratory/Chest: Reports dyspnea; Denies cough Gastrointestinal Gastrointestinal: Denies abdominal pain, diarrhea, nausea or vomiting Genitourinary Genitourinary ED: Denies dysuria Musculoskeletal Musculoskeletal: Denies myalgias Integumentary Denies rash Neurologic Neurologic: Denies headache(s) Hematologic/Lymphatic Hematologic/Lymphatic: Reports easy bleeding and easy bruising Allergic/Immunologic Allergic/Immunologic ED: Denies mouth swelling or tongue swelling EXAM Physical Exam Const Vital Signs: 01/25/25 11:01 01/25/25 11:39 01/25/25 12:00 Temperature 97.6 F L Temperature Source Temporal Pulse Rate 59 L 60 Respiratory Rate 16 16 Respiratory Effort Normal Non-Labored Respiratory Depth Respiratory Pattern Blood Pressure 147/110 H 133/68 H Blood Pressure Mean 122 89 Pulse Ox 99 97 Oxygen Delivery Method Nasal Cannula Oxygen Flow Rate (L/min) 2 01/25/25 12:28 01/25/25 13:00 01/25/25 13:39 Temperature Temperature Source Pulse Rate 62 66 Respiratory Rate 15 18 Respiratory Effort Normal Non-Labored Respiratory Depth Normal Respiratory Pattern Normal Blood Pressure 129/59 H 132/61 H Blood Pressure Mean 82 84 Pulse Ox 98 96 Oxygen Delivery Method Room Air Nasal Cannula Nasal Cannula Oxygen Flow Rate (L/min) 2 2 Positive well nourished and well developed General Appearance ED: well developed HEENT Reports dry mucous membranes HEENT Narrative: No tongue or lip swelling no oral lesions no airway edema or compromise No secondary findings in the posterior pharynx to suggest infection Mouth ED: Yes dry mucous membranes Mouth: dry mucous membranes Eyes PERRL and EOMs intact bilaterally General Eye ED: Negative for scleral icterus Neck supple and no JVD Chest Wall Chest Narrative: There is reproducible anterior chest wall pain with palpation without bony deformity or subcutaneous emphysema noted Resp normal respiratory effort Resp Narrative: Breath sounds are diminished throughout with faint wheeze in the bilateral bases consistent with history of COPD but no signs of respiratory distress Cardio regular rate and regular rhythm GI normal to inspection, nondistended, normoactive bowel sounds, non-tender, non-distended and no masses GI Narrative: No voluntary guarding or rigidity or pulsatile mass Auscultation: normoactive bowel sounds Palpation: soft Extremity Extremity Narrative: +1-2 pitting edema to the bilateral lower extremities that is equal and symmetric and chronic per patient Negative Homans' sign bilaterally Neuro oriented x3, CN's II-XII intact bilaterally and no sensory deficits noted Sensorium / Orientation: alert Motor Exam: strength 5/5 throughout Psych Mood & Affect: anxious Skin no rashes or lesions noted MDM MDM MDM Narrative Medical decision making narrative: Patient arrived to the ER in no acute distress. She was just recently seen for a similar event and had a negative workup. However as she does have COPD as well as congestive heart failure and underlying atrial fibrillation there is concern she has acute coronary syndrome versus pulmonary embolus versus pneumonia versus congestive heart failure exacerbation. Patient workup was obtained and initial troponin was indeterminate at 34 but it downtrended to 25 and this is similar nature to her previous values going against ACS. The patient is subtherapeutic on her INR so there is concern for a pulmonary embolus so a D-dimer was obtained which was normal going against a PE or dissection. The patient's congestive heart failure marker proBNP is elevated however this is improved from previous visit and the chest x-ray reveals no signs of volume overload. On reevaluation she is resting comfortably and satting well on her normal oxygen and therefore there is no need for further workup and she is otherwise safe for discharge Of note the patient's first potassium was hemolyzed and elevated at 6.3 the second is slightly down to 2.7 but her previous values have all been normal and therefore I feel this is most likely lab error and there is no need for readministration of the electrolyte at this time as she does not have any secondary findings associate with hypokalemia History & Record Review Discussion w/independent historian: Patient Lab Data Attestation: I reviewed the patient's lab results. Labs: Laboratory Results - last 24 hr 01/25/25 01/25/25 11:35 13:22 WBC 11.3 H RBC 5.25 Hgb 13.9 Hct 43.7 MCV 83.2 MCH 26.5 L MCHC 31.8 L RDW Std Deviation 48.3 H RDW Coeff of Neelima 16.3 H Plt Count 205 MPV 10.4 Immature Gran % (Auto) 0.600 Neut % (Auto) 76.6 H Lymph % (Auto) 13.0 L [place] % (Auto) 7.7 Eos % (Auto) 1.3 Baso % (Auto) 0.8 Absolute Neuts (auto) 8.6 H Absolute Lymphs (auto) 1.47 Nucleated RBC % 0 PT 13.9 INR 1.1 D-Dimer Quant (PE/DVT) 0.27 Sodium 135 Potassium 6.3 H* 2.7 L* Chloride 100 Carbon Dioxide 19.1 L Anion Gap 16 H BUN 34 H Creatinine 1.02 Est GFR (MDRD) Non-Af 54 L BUN/Creatinine Ratio 33.2 H Glucose 118 H Calcium 9.1 Troponin T High Sens 34 H Troponin T Hi Sens 2 Hr 25 H NT pro BNP II 2852 H Radiography Diagnostic Testing: Clinical Impression(s) from Imaging Studies Chest X-Ray 01/25/25 11:45 IMPRESSION: Prior sternotomy again noted. Postsurgical changes of the heart appear stable, with a stable contour. No evidence of cardiomegaly. Moderately severe lung hyperinflation with increased interstitial markings most prominent in the lower lung zones, consistent with chronic lung disease. No evidence of pulmonary edema. Mild discoid atelectasis or scarring is seen in the left inferior chest. No pleural effusion or pneumothorax is seen. Generalized osteopenia is seen. Reading Location: [address] Chest x-ray as interpreted by the emergency medicine physician reveals chronic COPD changes without acute infiltrate pneumothorax pleural effusion or widening the mediastinum Discharge Plan Triage Chief Complaint: Chest Pain Other Complaint: Shortness of Breath ED Provider: Jeremy Mendez Dx/Rx/DC Orders Clinical Impression: COPD (chronic obstructive pulmonary disease), Subtherapeutic international normalized ratio (INR), Congestive heart failure (CHF), Essential (primary) hypertension, Hypokalemia, History of atrial fibrillation Instructions: COPD: Wheezing and Chest Tightness, Heart Failure Prescriptions: New prednisone 20 mg tablet 20 mg PO DAILY 5 Days Qty: 5 0RF No Action magnesium oxide 400 mg magnesium tablet 400 mg PO DAILY lisinopril 20 mg tablet 20 mg PO DAILY buprenorphine 20 mcg/hour patch weekly 1 patch transdermal WE gabapentin 300 mg capsule 300 mg PO 4X/DAY PRN (Reason: pain) Patient Comments: PT DOESNT LIKE, ONLY USES NEEDED. fluticasone propion-salmeterol 250-50 mcg/dose blister with device 1 ea INHALATION BID mometasone 50 mcg/actuation spray,non-aerosol 2 spray INTRANASAL DAILY PRN (Reason: nasal congestion) Patient Comments: PT TAKES ONCE IN A WHILE. DOESNT THINK IT HELPS metoprolol succinate 100 mg tablet extended release 24 hr 100 mg PO DAILY PRN (Reason: Blood pressure) Patient Comments: ONLY TAKES IF BP IS HIGHER THAN 150 furosemide [Lasix] 40 mg tablet 40 mg PO BID Qty: 60 0RF warfarin 2 mg tablet 2 mg PO DAILY Qty: 30 0RF Protocol: Dose Management Condition: Thursday Dose/Route: 2 mg Instruction: 1 x 2 mg tablet Condition: Thursday Dose/Route: 3 mg Instruction: 1.5 x 2 mg tablets Condition: Thursday Dose/Route: 2 mg Instruction: 1 x 2 mg tablet Condition: Thursday Dose/Route: 2 mg Instruction: 1 x 2 mg tablet Condition: Dose/Route: 2 mg Instruction: 1 x 2 mg tablet Condition: Thursday Dose/Route: 2 mg Instruction: 1 x 2 mg tablet Condition: Thursday Dose/Route: 2 mg Instruction: 1 x 2 mg tablet Protocol Text: Adjustment Start Date: 01/19/25 INR Value: 1.3 INR Date: 01/19/25 Recheck Date: 01/26/25 prednisone 20 mg tablet 40 mg PO DAILY Qty: 14 0RF Patient Comments: Pt reports taking the last pill today (01/20/2025) Rx Instructions: two daily for four days, then one daily until finished acetaminophen 500 mg Tablet 1,000 mg PO 3XD PRN (Reason: pain) Qty: 1 0RF Primary Care Provider: Cheyanne Holt Referrals: Cheyanne Holt MD [Primary Care Provider] - Activity Restrictions/Additional Instructions: Please take all of your medications as directed by your doctor daily. Continue to wear your oxygen to help with shortness of breath sensation. Return to the ER should you have any further concerns Print Language: Telugu Disposition Disposition: Home, Self Care
[2025-01-25 12:40] LABS: Pro- Brain NATRIURETIC PEPTIDE 2852 pg/mL (<=1800)
[2025-01-25 13:00] VITALS: BP 129/59; PULSE 62; RESP 15; O2SAT 98
[2025-01-25 13:02] LABS: D-Dimer Quantitative (DVT/PE) 0.27 FEU/ug/m (0.27-0.49)
[2025-01-25 13:06] LABS: Anion Gap 16 (5-15); BUN 34 mg/dL (4-19); BUN/Creat Ratio 33.2 RATIO (10-20); Calcium,Total 9.1 mg/dL (7.6-11.0); Carbon Dioxide 19.1 mmol/L (21.0-32.0); Chloride 100 mmol/L (98-108); Creatinine, Serum 1.02 mg/dL (0.70-1.20); EST Glomerular Filtration Rate 54 (>60); Glucose 118 mg/dL (70-99); Potassium 6.3 mmol/L (3.3-5.1); Sodium Level 135 mmol/L (133-145)
[2025-01-25 13:08] LABS: Troponin T High Sensitivity 34 ng/L (<=14)
--- NOTE | 2025-01-25 13:22 | ED.RN ---
LAB CALLED K OF 6.3, PARTIALLY HEMOLYZED. DR BLACKBURN
[2025-01-25 13:39] VITALS: BP 132/61; PULSE 66; RESP 18; O2SAT 96
[2025-01-25 14:01] LABS: Troponin T High Sens 2 HR 25 ng/L (<=14)
[2025-01-25 14:14] LABS: Potassium 2.7 mmol/L (3.3-5.1)
[2025-01-25 14:54] VITALS: BP 133/62; PULSE 63; RESP 18; TEMP 36.6; O2SAT 95
--- NOTE | 2025-01-25 20:43 | CM.ED ---
Social Work SW initially met with patient, patients daughter, and patients department traffic freight router care transport nurse. Patient denied concerns related to care at home, daughter expressed concern regarding patient taking medications as ordered and being able to care for self. Daughter asked to speak with SW privately. Daughter stated that caregiver was a paid care transport nurse and that patient was reluctant to have her in the home due to the high cost that the care transport nurse charged. SW discussed HH referral, daughter stated she was interested but was not able to wait in ED for referral to be made. Daughter given information regarding HH companies and private duty aides. Daughter was grateful for same. No further needs identified at this time. Malena Herzog, APRICOT WASHER, REGISTRY NP
== END 2025-01-25 15:24 | disposition home or self-care (01) ==
PROVIDERS: Emergency Provider Emergency Medicine; PCP Internal Medicine; Visit Provider Emergency Medicine
DX: J44.9 Chronic obstructive pulmonary disease, unspecified (principal); I11.0 Hypertensive heart disease with heart failure; I50.33 Acute on chronic diastolic (congestive) heart failure; I48.0 Paroxysmal atrial fibrillation; I42.1 Obstructive hypertrophic cardiomyopathy; R06.02 Shortness of breath; R79.1 Abnormal coagulation profile; E87.6 Hypokalemia; R60.0 Localized edema; Z11.52 Encounter for screening for COVID-19; E78.5 Hyperlipidemia, unspecified; Z79.01 Long term (current) use of 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; Z87.891 Personal history of nicotine dependence; Z95.0 Presence of cardiac pacemaker
CPT/HCPCS: 71046; 80048; 83880; 84132; 84484; 85025; 85379; 85610; 87631; 93005; 99284; A4216

== ENCOUNTER → 2025-01-25 | Outpatient (CLI) | payer MEDICARE, SELFPAY ==
[2025-01-25 09:59] LABS: International Normalized Ratio 1.1; Prothrombin Time (Protime)PT. 13.9 SECONDS (11.7-14.9)
== END | disposition home or self-care (01) ==
LOC: LAB 08:49
PROVIDERS: PCP Internal Medicine; Visit Provider Internal Medicine Cardiovascular Disease
DX: I48.91 Unspecified atrial fibrillation (principal); I50.32 Chronic diastolic (congestive) heart failure; R79.1 Abnormal coagulation profile; Z79.01 Long term (current) use of 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
CPT/HCPCS: 36415; 85610

== ENCOUNTER → 2025-02-01 | Outpatient (CLI) | payer MEDICARE, SELFPAY ==
[2025-02-01 10:13] LABS: International Normalized Ratio 1.6; Prothrombin Time (Protime)PT. 19.6 SECONDS (11.7-14.9)
== END | disposition home or self-care (01) ==
LOC: LAB 09:29
PROVIDERS: PCP Internal Medicine; Visit Provider Internal Medicine Cardiovascular Disease
DX: I48.91 Unspecified atrial fibrillation (principal); I50.32 Chronic diastolic (congestive) heart failure; Z79.01 Long term (current) use of 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; R79.1 Abnormal coagulation profile
CPT/HCPCS: 36415; 85610

== ENCOUNTER → 2025-02-08 | Outpatient (CLI) | payer MEDICARE, SELFPAY ==
[2025-02-08 10:06] LABS: International Normalized Ratio 2.7; Prothrombin Time (Protime)PT. 29.6 SECONDS (11.7-14.9)
[2025-02-08 14:56] LABS: Anion Gap 13 (5-15); BUN 19 mg/dL (4-19); BUN/Creat Ratio 23.3 RATIO (10-20); Calcium,Total 9.2 mg/dL (7.6-11.0); Carbon Dioxide 24.9 mmol/L (21.0-32.0); Chloride 103 mmol/L (98-108); EST Glomerular Filtration Rate 72 (>60); Glucose 112 mg/dL (70-99); Sodium Level 141 mmol/L (133-145)
== END | disposition home or self-care (01) ==
LOC: LAB 08:47
PROVIDERS: Physician Assistant Medical; PCP Internal Medicine; Visit Provider Internal Medicine Cardiovascular Disease
DX: I48.91 Unspecified atrial fibrillation (principal); I11.0 Hypertensive heart disease with heart failure; I50.32 Chronic diastolic (congestive) heart failure; Z79.01 Long term (current) use of 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; R79.1 Abnormal coagulation profile
CPT/HCPCS: 36415; 80048; 85610

== ENCOUNTER → 2025-02-22 | Outpatient (CLI) | payer MEDICARE, SELFPAY ==
[2025-02-22 10:32] LABS: International Normalized Ratio 0.9; Prothrombin Time (Protime)PT. 12.1 SECONDS (11.7-14.9)
[2025-02-22 11:15] LABS: Anion Gap 16 (5-15); BUN 25 mg/dL (4-19); BUN/Creat Ratio 27.6 RATIO (10-20); Calcium,Total 9.3 mg/dL (7.6-11.0); Carbon Dioxide 21.8 mmol/L (21.0-32.0); Chloride 103 mmol/L (98-108); Creatinine, Serum 0.89 mg/dL (0.70-1.20); EST Glomerular Filtration Rate 63 (>60); Glucose 168 mg/dL (70-99); Potassium 4.3 mmol/L (3.3-5.1); Sodium Level 141 mmol/L (133-145)
== END | disposition home or self-care (01) ==
LOC: LAB 09:15
PROVIDERS: Internal Medicine Cardiovascular Disease; Student in an Organized Health Care Education/Training Program; PCP Internal Medicine; Visit Provider Internal Medicine
DX: R79.1 Abnormal coagulation profile (principal); I50.32 Chronic diastolic (congestive) heart failure; I48.91 Unspecified atrial fibrillation; E87.6 Hypokalemia; Z79.01 Long term (current) use of 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
CPT/HCPCS: 36415; 80048; 85610

== ENCOUNTER → 2025-03-06 | Outpatient (CLI) | payer MEDICARE, SELFPAY ==
[2025-03-06 12:03] LABS: International Normalized Ratio 3.6; Prothrombin Time (Protime)PT. 36.8 SECONDS (11.7-14.9)
== END | disposition home or self-care (01) ==
LOC: LAB 10:19
PROVIDERS: PCP Internal Medicine; Visit Provider Internal Medicine Cardiovascular Disease
DX: I48.91 Unspecified atrial fibrillation (principal); I50.32 Chronic diastolic (congestive) heart failure; R79.1 Abnormal coagulation profile; Z79.01 Long term (current) use of 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
CPT/HCPCS: 36415; 85610

== ENCOUNTER → 2025-03-14 | Outpatient (CLI) | payer MEDICARE, SELFPAY ==
[2025-03-14 11:09] LABS: International Normalized Ratio 2.4; Prothrombin Time (Protime)PT. 26.5 SECONDS (11.7-14.9)
== END | disposition home or self-care (01) ==
LOC: LAB 08:40
PROVIDERS: PCP Internal Medicine; Visit Provider Internal Medicine Cardiovascular Disease
DX: I48.91 Unspecified atrial fibrillation (principal)
CPT/HCPCS: 36415; 85610

== ENCOUNTER → 2025-03-21 | Outpatient (CLI) | payer MEDICARE, SELFPAY ==
[2025-03-21 11:33] LABS: International Normalized Ratio 3.4; Prothrombin Time (Protime)PT. 35.3 SECONDS (11.7-14.9)
== END | disposition home or self-care (01) ==
LOC: LAB 09:46
PROVIDERS: PCP Internal Medicine; Visit Provider Internal Medicine Cardiovascular Disease
DX: R79.1 Abnormal coagulation profile (principal); I50.32 Chronic diastolic (congestive) heart failure; I48.91 Unspecified atrial fibrillation; Z79.01 Long term (current) use of 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
CPT/HCPCS: 36415; 85610

== ENCOUNTER → 2025-03-28 | Outpatient (CLI) | payer MEDICARE, SELFPAY ==
[2025-03-28 11:54] LABS: International Normalized Ratio 2.8; Prothrombin Time (Protime)PT. 30.3 SECONDS (11.7-14.9)
== END | disposition home or self-care (01) ==
LOC: LAB 08:06
PROVIDERS: PCP Internal Medicine; Visit Provider Internal Medicine Cardiovascular Disease
DX: R79.1 Abnormal coagulation profile (principal); I50.32 Chronic diastolic (congestive) heart failure; I48.91 Unspecified atrial fibrillation; Z79.01 Long term (current) use of 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
CPT/HCPCS: 36415; 85610

== ENCOUNTER → 2025-04-04 | Outpatient (CLI) | payer MEDICARE, SELFPAY ==
[2025-04-04 11:21] LABS: International Normalized Ratio 3.6; Prothrombin Time (Protime)PT. 36.7 SECONDS (11.7-14.9)
== END | disposition home or self-care (01) ==
LOC: LAB 08:53
PROVIDERS: PCP Internal Medicine; Visit Provider Internal Medicine Cardiovascular Disease
DX: R79.1 Abnormal coagulation profile (principal); I50.32 Chronic diastolic (congestive) heart failure; I48.91 Unspecified atrial fibrillation; Z79.01 Long term (current) use of 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
CPT/HCPCS: 36415; 85610

== ENCOUNTER → 2025-04-11 | Outpatient (CLI) | payer MEDICARE, SELFPAY ==
[2025-04-11 10:55] LABS: International Normalized Ratio 2.8; Prothrombin Time (Protime)PT. 29.7 SECONDS (11.7-14.9)
== END | disposition home or self-care (01) ==
LOC: LAB 08:07
PROVIDERS: PCP Internal Medicine; Visit Provider Internal Medicine Cardiovascular Disease
DX: R79.1 Abnormal coagulation profile (principal); I50.32 Chronic diastolic (congestive) heart failure; I48.91 Unspecified atrial fibrillation; Z79.01 Long term (current) use of 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
CPT/HCPCS: 36415; 85610

== ENCOUNTER → 2025-04-18 | Outpatient (CLI) | payer MEDICARE, SELFPAY ==
[2025-04-18 11:16] LABS: International Normalized Ratio 3.3; Prothrombin Time (Protime)PT. 34.5 SECONDS (11.7-14.9)
== END | disposition home or self-care (01) ==
PROVIDERS: PCP Internal Medicine; Visit Provider Internal Medicine Cardiovascular Disease
DX: R79.1 Abnormal coagulation profile (principal); I50.32 Chronic diastolic (congestive) heart failure; I48.91 Unspecified atrial fibrillation; Z79.01 Long term (current) use of 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
CPT/HCPCS: 36415; 85610

== ENCOUNTER → 2025-04-27 | Outpatient (CLI) | payer MEDICARE, SELFPAY ==
[2025-04-27 09:27] LABS: Bacteria 0 SEEN /hpf (None Seen); Mucous, Urine 0 SEEN /hpf (<or=2+); Red Blood Cells-Urine 0 SEEN /hpf (0-5); Squamous Epithelial Cells - UA 0 SEEN /hpf (5-10)
[2025-04-27 10:52] LABS: Color, Urine Yellow (Yellow); Glucose, Dipstick Normal (Normal); Ketone-Dipstick Negative (Negative); Leukocyte Esterase-Dipstick 500 /ul (Negative); Nitrite-Dipstick Positive (Negative); Occult Blood-Urine 25 /ul (Negative); Protein-Dipstick 30 mg/dl (Negative); Urine Clarity Sl. Cloudy (Clear); Urine Urobilinogen 4 mg/dl (Normal)
[2025-04-27 11:02] LABS: Urine Bilirubin Dipstick 3 mg/dL (Negative)
[2025-04-27 11:06] LABS: White Blood Cells 25-50 SEEN /hpf (0-5)
== END | disposition home or self-care (01) ==
LOC: LABSPEC 09:26
PROVIDERS: PCP Internal Medicine; Visit Provider Physician Assistant Surgical
DX: R30.0 Dysuria (principal)
CPT/HCPCS: 81001; 87077; 87086; 87088; 87186

== ENCOUNTER → 2025-05-03 | Outpatient (CLI) | payer MEDICARE, SELFPAY ==
[2025-05-03 10:41] LABS: Prothrombin Time (Protime)PT. 32.8 SECONDS (11.7-14.9)
== END | disposition home or self-care (01) ==
LOC: LAB 08:55
PROVIDERS: PCP Internal Medicine; Visit Provider Physician Assistant Medical
DX: I48.0 Paroxysmal atrial fibrillation (principal); Z79.01 Long term (current) use of 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
CPT/HCPCS: 36415; 85610

== ENCOUNTER → 2025-05-17 | Outpatient (CLI) | payer MEDICARE, SELFPAY ==
[2025-05-17 10:38] LABS: Prothrombin Time (Protime)PT. 36.4 SECONDS (11.7-14.9)
== END | disposition home or self-care (01) ==
LOC: LAB 09:53
PROVIDERS: PCP Internal Medicine; Visit Provider Internal Medicine
DX: I48.0 Paroxysmal atrial fibrillation (principal); Z79.01 Long term (current) use of 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
CPT/HCPCS: 36415; 85610

== ENCOUNTER → 2025-05-25 | Outpatient (CLI) | payer MEDICARE, SELFPAY ==
[2025-05-25 10:51] LABS: Prothrombin Time (Protime)PT. 33.7 SECONDS (11.7-14.9)
== END | disposition home or self-care (01) ==
LOC: LAB 08:43
PROVIDERS: PCP Internal Medicine; Referring Provider Physician Assistant Medical; Visit Provider Physician Assistant Medical
DX: I48.0 Paroxysmal atrial fibrillation (principal); Z79.01 Long term (current) use of 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
CPT/HCPCS: 36415; 85610

== ENCOUNTER → 2025-06-08 | Outpatient (CLI) | payer MEDICARE, SELFPAY ==
[2025-06-08 10:40] LABS: Prothrombin Time (Protime)PT. 25.1 SECONDS (11.7-14.9)
== END | disposition home or self-care (01) ==
LOC: LAB 09:58
PROVIDERS: PCP Internal Medicine; Visit Provider Physician Assistant Medical
DX: I48.0 Paroxysmal atrial fibrillation (principal); Z79.01 Long term (current) use of 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
CPT/HCPCS: 36415; 85610

== ENCOUNTER → 2025-06-23 | Outpatient (CLI) | payer MEDICARE, SELFPAY ==
[2025-06-23 10:16] LABS: Prothrombin Time (Protime)PT. 22.0 SECONDS (11.7-14.9)
== END | disposition home or self-care (01) ==
LOC: LAB 09:25
PROVIDERS: PCP Internal Medicine; Visit Provider Physician Assistant Medical
DX: I48.0 Paroxysmal atrial fibrillation (principal); Z79.01 Long term (current) use of 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
CPT/HCPCS: 36415; 85610

== ENCOUNTER → 2025-07-13 | Outpatient (CLI) | payer MEDICARE, SELFPAY ==
[2025-07-13 10:32] LABS: Prothrombin Time (Protime)PT. 24.9 SECONDS (11.7-14.9)
== END | disposition home or self-care (01) ==
LOC: LAB 09:44
PROVIDERS: PCP Internal Medicine; Visit Provider Physician Assistant Medical
DX: I48.0 Paroxysmal atrial fibrillation (principal); Z79.01 Long term (current) use of 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
CPT/HCPCS: 36415; 85610

== ENCOUNTER → 2025-08-03 | Outpatient (CLI) | payer MEDICARE, SELFPAY ==
[2025-08-03 10:45] LABS: Prothrombin Time (Protime)PT. 27.0 SECONDS (11.7-14.9)
== END | disposition home or self-care (01) ==
LOC: LAB 09:37
PROVIDERS: PCP Internal Medicine; Visit Provider Physician Assistant Medical
DX: I48.0 Paroxysmal atrial fibrillation (principal); Z79.01 Long term (current) use of 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
CPT/HCPCS: 36415; 85610

== ENCOUNTER → 2025-08-31 | Outpatient (CLI) | payer MEDICARE, SELFPAY ==
[2025-08-31 10:00] LABS: Prothrombin Time (Protime)PT. 24.4 SECONDS (11.7-14.9)
== END | disposition home or self-care (01) ==
LOC: LAB 09:26
PROVIDERS: PCP Internal Medicine; Visit Provider Physician Assistant Medical
DX: I48.91 Unspecified atrial fibrillation (principal); Z79.01 Long term (current) use of 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
CPT/HCPCS: 36415; 85610

== ENCOUNTER → 2025-10-04 | Outpatient (CLI) | payer MEDICARE, SELFPAY ==
[2025-10-04 10:13] LABS: Prothrombin Time (Protime)PT. 27.0 SECONDS (11.7-14.9)
== END | disposition home or self-care (01) ==
LOC: LAB 09:37
PROVIDERS: PCP Internal Medicine; Visit Provider Physician Assistant Medical
DX: I48.0 Paroxysmal atrial fibrillation (principal); Z79.01 Long term (current) use of 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
CPT/HCPCS: 36415; 85610